=== PATIENT | male | born 1945 | race Caucasian/White ===

== ENCOUNTER 2017-04-07 13:40 | Emergency (ER) | payer OTHER, MEDICARE ==
[~2017-04-07] VITALS: Ht 175.3 cm; Wt 81.7 kg
[~2017-04-07 13:40] MED LIST: ALEVE220 M1 PO; ALTOPREV40 MG PO; ARANESP200 MCG/0. IJ; FISH OIL 1,0001 EAC1 PO; GLUCOSAMINE1000 MG PO; IRON27 MG PO; LIPITOR10 MG PO; MULTIVITAMINS1 EAC7 PO; NORCO 10-325 T1 EACH PO; NORCO 5-325 TA1 EACH PO
[2017-04-07] MEDS ORDERED: HYDROCHLOROTHIA25 MG PO (13:54)
[2017-04-07] MEDS ORDERED: AMLODIPINE BESYL5 MG PO (13:54)
[2017-04-07] MEDS ORDERED: AUGMENTIN 875-1 EACH PO (14:39)
[2017-04-07] MEDS ORDERED: NORCO 5-325 TA1 EACH PO (14:39)
[2017-05-30] MEDS ORDERED: TYLENOL325 MG PO (06:49)
[2017-05-30] MEDS ORDERED: POTASSIUM CHLO10 ME1 PO (06:50)
== END 2017-04-07 14:52 | disposition home or self-care (01) ==
LOC: ED 13:40
PROC: 0HQQXZZ Repair Finger Nail, External Approach (ICD-10-PCS; principal; 2017-04-07)
DX: S62.637A Displaced fracture of distal phalanx of left little finger, initial encounter for closed fracture (principal); S61.317A Laceration without foreign body of left little finger with damage to nail, initial encounter; E78.00 Pure hypercholesterolemia, unspecified; Z88.8 Allergy status to other drugs, medicaments and biological substances; Z79.899 Other long term (current) drug therapy; W45.8XXA Other foreign body or object entering through skin, initial encounter
CPT/HCPCS: 11760; 73140; 90471; 90715; 99283

== ENCOUNTER 2018-09-16 12:09 | Emergency (ER) | payer BC, MEDICARE ==
[~2018-09-16] VITALS: Ht 175.3 cm; Wt 81.6 kg
[~2018-09-16 12:09] MED LIST changes: +AMLODIPINE BESYL5 MG PO; +AUGMENTIN 875-1 EACH PO; +HYDROCHLOROTHIA25 MG PO; +POTASSIUM CHLO10 ME1 PO; +TYLENOL325 MG PO
--- OUTSIDE RECORDS SUMMARY | 2018-09-16 12:28 | XMS ---
PreManage Notification: TYLOR OLIVERA Security Disk Grinder Events No recent Security Events currently on file CRITERIA MET - [facility] CARE PROVIDERS THEODORE THAYER Physician Program Director Air Talent Current PHONE: Unknown Hay Greco MD Primary Care Current PHONE: Unknown Marly GRECO Primary Care Current PHONE: Unknown Xander has no Care Guidelines for this patient. EMilana. VISIT COUNT (12 MO.) 1 AUBREY Wilde TOTAL 1 NOTE: Visits indicate total known visits. ED/UCC VISIT TRACKING (12 MO.) 09/16/2018 12:09 [facility]REY [facility] [place] TYPE: Emergency COMPLAINT: - HEAD LAC INPATIENT VISIT TRACKING (12 MO.) 05/27/2018 06:22 [facility] TYPE: Medical Surgical COMPLAINT: - TOTAL SHOULDER REPL- REVERSE(LEFT) DIAGNOSES: 0. Primary osteoarthritis, left shoulder 1. Primary osteoarthritis, left shoulder 2. Complete rotator cuff tear or rupture of left shoulder, not specified as traumatic 3. Presence of right artificial shoulder joint [id number]
[2018-09-16] MEDS ORDERED: KEFLEX500 MG PO (13:52)
== END 2018-09-16 14:20 | disposition home or self-care (01) ==
LOC: ED 12:09
DX: S01.01XA Laceration without foreign body of scalp, initial encounter (principal); S80.11XA Contusion of right lower leg, initial encounter; W00.0XXA Fall on same level due to ice and snow, initial encounter; Z88.8 Allergy status to other drugs, medicaments and biological substances; Z79.899 Other long term (current) drug therapy
CPT/HCPCS: 12002; 70450; 73502; 99283-25

== ENCOUNTER 2019-11-22 14:43 | Emergency (ER) | payer BC, MEDICARE ==
[~2019-11-22] VITALS: Ht 175.3 cm; Wt 81.7 kg
--- OUTSIDE RECORDS SUMMARY | ~2019-11-22 | XMS | Encounter Summary ---
Demographics + + + | Address | [address] | | | [place] [address] | + + + | Home Phone | | + + + | Preferred Language | Unknown | + + + | Marital Status | | + + + | Taoism Affiliation | 1077 | + + + | Race | Unknown | + + + | Ethnic Group | Unknown | + + + Author + + + | Author | [facility] | | | and [place] | + + + | Organization | [facility] | | | and [place] | + + + | Address | Unknown | + + + | Phone | Unavailable | + + + Support + + +---------+ + | Name | Relationship | Address | Phone | + + +---------+ + | Ricarda Johnson | ECON | Unknown | | + + +---------+ + Care Team Providers + +------+ + | Care Primer Supervisor Name | Role | Phone | + +------+ + | Hay Greco MD | PCP | | + +------+ + Encounter Details +--------+ + + + + | Date | Type | Department | Care Team | Description | +--------+ + + + + | 09/13/ | Hospital | [facility] | Carlos Armstrong | S/P lumbar fusion | | 2018 | Encounter | MED CTR XRAY [address] | D, PA-C [address] | | | | | [place] | [address] | | | | | [place] [address] | [place], [place] | | | | | [phone] | [address] | | | | | | | | +--------+ + + + + Social History + +-------+ +--------+------+ | Tobacco Use | Types | Packs/Day | Years | Date | | | | | Used | | + +-------+ +--------+------+ | Never Smoker | | | | | + +-------+ +--------+------+ + +---+---+---+ | Smokeless Tobacco: | | | | | Never Used | | | | + +---+---+---+ + + +---------+ + | Alcohol Use | Drinks/Week | oz/Week | Comments | + + +---------+ + | Yes | 6 Shots of liquor | 6.0 | FREQUENTLY (MORE | | | | | THAN TWICE PER WEEK) | + + +---------+ + + + + | Sex Assigned at | Date Recorded | | | | + + + | Not on file | | + + + + + + + | Job Start Date | Occupation | Industry | + + + + | Not on file | Not on file | Not on file | + + + + + + + + | Travel History | Travel Start | Travel End | + + + + + + | No recent travel history available. | + + documented as of this encounter Functional Status + + + + | Functional Status | Response | Date of Assessment | + + + + | Are you deaf or do you have serious | No | 10/22/2013 | | difficulty hearing? | | | + + + + | Are you blind or do you have serious | No | 10/22/2013 | | difficulty seeing, even when wearing | | | | glasses? | | | + + + + | Do you have serious difficulty walking or | No | 10/22/2013 | | climbing stairs? (5 years old or older) | | | + + + + | Do you have difficulty dressing or bathing? | No | 10/22/2013 | | (5 years old or older) | | | + + + + | Because of a physical, mental, or emotional | No | 10/22/2013 | | condition, do you have difficulty doing | | | | errands alone such as visiting a doctor's | | | | office or shopping? [15 years old or | | | | older)] | | | + + + + + + + + | Cognitive Status | Response | Date of Assessment | + + + + | Because of a physical, mental, or emotional | No | 10/22/2013 | | condition, do you have serious difficulty | | | | concentrating, remembering, or making | | | | decisions? (5 years old or older) | | | + + + + documented as of this encounter Medications at Time of Discharge + + + +---------+ + + | Medication | Sig | Dispensed | Refills | Start | End Date | | | | | | Date | | + + + +---------+ + + | acetaminophen | Take 650 mg by mouth | | 0 | | | | (TYLENOL) 325 mg | 3 times daily. Prn | | | | | | tablet | pain | | | | | + + + +---------+ + + | | Take 1 tablet by | | 0 | 11/01/19 | | | hydroCHLOROthiazide | mouth Daily. | | | 17 | 9 | | 25 mg tablet | | | | | | + + + +---------+ + + | | Take 1-2 tablets by | 120 | 0 | 09/14/19 | | | HYDROcodone-acetamin | mouth every 4 hours | tablet | | 18 | 8 | | ophen (NORCO) | as needed for Pain. | | | | | | 7.5-325 mg per | | | | | | | tablet | | | | | | + + + +---------+ + + | morphine (MS | Take 1 tablet by | 60 | 0 | 09/14/19 | | | CONTIN) 15 mg ER | mouth 2 times daily. | tablet | | 18 | 8 | | tablet | | | | | | + + + +---------+ + + | potassium chloride | Take 20 mEq by mouth | | 0 | 10/31/19 | | | (SHORTY-JESÚS) 10 mEq | Daily. | | | 17 | 9 | | CR tablet | | | | | | + + + +---------+ + + documented as of this encounter Plan of Treatment Not on filedocumented as of this encounter Procedures + +--------+ + + + | Procedure Name | Priori | Date/Time | Associated Diagnosis | Comments | | | ty | | | | + +--------+ + + + | XR LUMBAR SPINE 2 OR | Routin | 09/13/2017 | S/P lumbar fusion | Results for this | | 3 VW | e | 9:18 AM | | procedure are in the | | | | PST | | results section. | + +--------+ + + + documented in this encounter Results XR Lumbar Spine 2 or 3 Vw (09/13/2017 9:18 AM PST) + + | Specimen | + + | | + + + + + | Narrative | Performed At | + + + | XR LUMBAR SPINE 2 OR 3 VW 09/13/2017 9:18 AM HISTORY: Postop. | [facility] | | COMPARISON: 07/22/2017 FINDINGS: Stable appearance of the lumbar | | | fusion hardware at L1-L2 and L2-L4, without evidence of interval | | | complication. Moderate to severe spondylosis is again noted at | | | T12-L1, L4-L5, and L5-S1. Vascular calcifications are seen. Alignment | | | and vertebral body heights are unchanged. Question a a few | | | calcifications projecting over bilateral renal shadows. | | | IMPRESSION - No radiographic evidence of interval new complication. | | | Moderate to severe spondylosis of the unfused levels of the | | | thoracolumbar junction and lower lumbar spine. A few | | | calcifications project over bilateral renal shadows, cannot exclude | | | small renal calculi, these are similar since prior examination. | | | Dictated and Signed by: Paulo Rodriguez MD Electronically signed: | | | 09/13/2017 10:03 AM | | + + + + + | Procedure Note | + + | Reji, Rad Results In - 09/13/2017 10:07 AM PST XR LUMBAR SPINE 2 OR 3 VW 09/13/2017 9:18 | | AMHISTORY: Postop.COMPARISON: 07/22/2017FINDINGS:Stable appearance of the lumbar fusion | | hardware at L1-L2 and L2-L4, withoutevidence of interval complication. Moderate to | | severe spondylosis is again notedat T12-L1, L4-L5, and L5-S1. Vascular calcifications | | are seen. Alignment andvertebral body heights are unchanged. Question a a few | | calcifications projectingover bilateral renal shadows. IMPRESSION -No radiographic | | evidence of interval new complication.Moderate to severe spondylosis of the unfused | | levels of the thoracolumbarjunction and lower lumbar spine.A few calcifications project | | over bilateral renal shadows, cannot exclude smallrenal calculi, these are similar since | | prior examination.Dictated and Signed by: Paulo Rodriguez MD Electronically signed: | | 09/13/2017 10:03 AM | |over bilateral renal shadows. | | | |IMPRESSION - | |No radiographic evidence of interval new complication. | | | |Moderate to severe spondylosis of the unfused levels of the thoracolumbar | |junction and lower lumbar spine. | | | |A few calcifications project over bilateral renal shadows, cannot exclude small | |renal calculi, these are similar since prior examination. | | | |Dictated and Signed by: Paulo Rodriguez MD | | Electronically signed: 09/13/2017 10:03 AM | + + + +---------+ + + | Performing | Address | City/State/Zipcode | Phone Number | | Organization | | | | + +---------+ + + | [facility] | | | | + +---------+ + + documented in this encounter Visit Diagnoses + + | Diagnosis | + + | S/P lumbar fusion Arthrodesis status | + + documented in this encounter"
--- OUTSIDE RECORDS SUMMARY | ~2019-11-22 | XMS | Encounter Summary ---
Demographics + + + | Address | [address] | | | [place] [address] | + + + | Home Phone | | + + + | Preferred Language | Unknown | + + + | Marital Status | | + + + | Muslim Affiliation | 1077 | + + + | Race | Unknown | + + + | Ethnic Group | Unknown | + + + Author + + + | Author | [facility] | | | and [place] | + + + | Organization | [facility] | | | and [...] Team Providers + +------+ + | Care Patient Care Specialist Name | Role | Phone | + +------+ + PCP | Unavailable | + +------+ + Encounter Details +--------+ + + + + | Date | Type | Department | Care Team | Description | +--------+ + + + + | 04/14/ | Hospital | [facility] | | | | 2009 - | Encounter | MED CTR CANCER | | | | | | CENTER [address] | | | | 05/14/ | | [place] | | | | 2009 | | [address] | | | | | | [phone] | | | +--------+ + + + + Social History + +-------+ +--------+------+ | Tobacco Use | Types | Packs/Day | Years | Date | | | | | Used | | + +-------+ +--------+------+ | Never Assessed | | | | | + +-------+ +--------+------+ + + + | Sex Assigned at [...] Not on filedocumented as of this encounter Visit Diagnoses Not on filedocumented in this encounter"
--- OUTSIDE RECORDS SUMMARY | ~2019-11-22 | XMS | Encounter Summary ---
Demographics + + + | Address | [address] | | | [place] [address] | + + + | Home Phone | | + + + | Preferred Language | Unknown | + + + | Marital Status | | + + + | Alevism Affiliation | 1077 | + + + | Race | Unknown | + + + | Ethnic Group | Unknown | + + + Author + + + | Author | [facility] | | | and [place] | + + + | Organization | [facility] | | | and [...] Team Providers + +------+ + | Care Production Cost Estimator Name | Role | Phone | + +------+ + | Aldo Frank DO | PCP | | + +------+ + Encounter Details +--------+ + + + + | Date | Type | Department | Care Team | Description | +--------+ + + + + | 03/25/ | Orders Only | [facility] | Pj Riggs | | | 2019 | | PHYSIATRY [address] | T, MD [address] | | | | | [address] | [place], [place] | | | | | [place], [place] | [address] | | | | | [address] | | | | | | [phone] | | | +--------+ + + + [...]
--- OUTSIDE RECORDS SUMMARY | ~2019-11-22 | XMS | Encounter Summary ---
Demographics + + + | Address | [address] | | | [place] [address] | + + + | Home Phone | | + + + | Preferred Language | Unknown | + + + | Marital Status | | + + + | Nondenominational Affiliation | 1077 | + + + | Race | Unknown | + + + | Ethnic Group | Unknown | + + + Author + + + | Author | [facility] | | | and [place] | + + + | Organization | [facility] | | | [...] Team Providers + +------+ + | Care Plasterer Rough Name | Role | Phone | + +------+ + | Hay Greco MD | PCP | | + +------+ + Encounter Details +--------+ + + + + | Date | Type | Department | Care Team | Description | +--------+ + + + + | 10/24/ | Hospital | [facility] | Emily Carter | | | 2013 | Encounter | MED CTR ACUTE | D, PT [address] | | | | | PHYSICAL THERAPY | [place] | | | | | [address] | [address] | | | | | [place] [address] | | | | | | [phone] | | | +--------+ + + + [...] 6 Shots of liquor | 6.0 | | + + +---------+ + + + [...] + +---------+ + + | | Take 2 tablets by | | 0 | | | | Boswellia-Glucosamin | mouth Daily. | | | | 7 | | e-Vit D (GLUCOSAMINE | | | | | | | COMPLEX PO) | | | | | | + + + +---------+ + + | | Take 1-2 tablets by | 90 | 1 | 10/25/19 | | | HYDROcodone-acetamin | mouth every 4 hours | tablet | | 14 | 4 | | ophen (NORCO) | as needed for Pain | | | | | | 7.5-325 mg per | for 10 days. | | | | | | tablet | | | | | | + + + +---------+ + + | lactulose 10 g/15 | Take 30 mLs by mouth | 240 mL | 1 | 10/25/19 | | | mL solution | 2 times daily for | | | 14 | 4 | | | 10 days. | | | | | + + + +---------+ + + | lovastatin | Take 40 mg by mouth | | 0 | | | | (ALTOPREV) 40 MG 24 | nightly. | | | | 7 | | hr tablet | | | | | | + + + +---------+ + + | MULTIPLE VITAMIN | Take 1 tablet by | | 0 | | | | PO | mouth Daily. | | | | 7 | + + + +---------+ + + | tizanidine | Take 1 capsule by | 90 | 3 | 10/25/19 | | | (ZANAFLEX) 4 MG | mouth 3 times daily | capsule | | 14 | 4 | | capsule | as needed for Muscle | | | | | | | spasms. | | | | | + + + +---------+ + + documented as of this encounter Plan of Treatment Not on filedocumented as of this encounter Visit Diagnoses Not on filedocumented in this encounter"
--- OUTSIDE RECORDS SUMMARY | ~2019-11-22 | XMS | Encounter Summary ---
Demographics + + + | Address | [address] | | | [place] [address] | + + + | Home Phone | | + + + | Preferred Language | Unknown | + + + | Marital Status | | + + + | Rastafarian Affiliation | PRE | + + + | Race | White | + + + | Ethnic Group | Not or | + + + Author + + + | Author | [facility] | + + + | Organization | [facility] | + + + | Address | Unknown | + + + | Phone | Unavailable | + + + Support + + + + + | Name | Relationship | Address | Phone | + + + + + | Ricarda Johnson | ECON | [address] | | | | | [place] | | | | | [address] | | + + + + + Care Team Providers + +------+ + | Care Outreach Analyst Name | Role | Phone | + +------+ + | Hay Greco MD | PCP | | + +------+ + Reason for Visit + + + | Reason | Comments | + + + | Medical Records | | | Review | | + + + Encounter Details +--------+ + + + + | Date | Type | Department | Care Team | Description | +--------+ + + + + | 06/19/ | Abstract | [facility] | Edgar Hampton, | Medical Records | | 2017 | | [facility] at [facility] [address] | [address] [facility] | Review | | | | Debbie Mock | Taran Ortiz | | | | | Mailcode: [address] | [place], [place] | | | | | [facility] and | [address] | | | | | [facility] [address] | [phone] | | | | | [place], [place] | | | | | | [address] | | | | | | [phone] | | | +--------+ + + + [...] + + +---------+ + | Yes | 14 Standard drinks | 11.7 | | | | or equivalent | | | + + +---------+ + + [...]
--- OUTSIDE RECORDS SUMMARY | ~2019-11-22 | XMS | Encounter Summary ---
Demographics + + + | Address | [address] | | | [place] [address] | + + + | Home Phone | | + + + | Preferred Language | Unknown | + + + | Marital Status | | + + + | Islam Affiliation | 1077 | + + + | Race | Unknown | + + + | Ethnic Group | Unknown | + + + Author + + + | Author | [facility] | | | and [place] | + + + | Organization | [facility] | | | and [...] Team Providers + +------+ + | Care Wet Process Technician Name | Role | Phone | + +------+ + | Aldo Frank DO | PCP | | + +------+ + Encounter Details +--------+ + + + + | Date | Type | Department | Care Team | Description | +--------+ + + + + | 05/05/ | Orders Only | [facility] | Inocente, David, | Lumbar spondylosis | | 2018 | | PHYSIATRY [address] | PA-C [address] | (Primary Dx) | | | | [address] | [address] [place] | | | | | [place], [place] | [place] [address] | | | | | [address] | [phone] | | | | | [phone] | | | +--------+ + + + [...] Not on filedocumented as of this encounter Results FL Facet Injection Lumbar Sacral (07/22/2018 12:45 PM PST) + + | Specimen | + + | | + + + + -+ | Narrative | Performed At | + + -+ | 07/22/2018 | [facility] | | Bilateral Lumbar Facet Steroid Injection Diagnosis: Lumbar Spondylosis | | | ICD-10 Code M47.816 Cosmo Johnson presents to the fluoroscopy | | | suite for fluoroscopically-guided bilateral L4-L5 and L5-S1 facet | | | injections as part of conservative management for chronic pain with | | | lumbar spondylosis.Based on the patient's history, physical | | | examination and review of the available imaging the patient has been | | | diagnosed with pain coming primarily from the lumbar facet joints. | | | The patient's pain has been moderate to severe, rated as a 6 or | | | higher usually on a 0-10 scale. The pain is impacting activities of | | | daily living including any activity that requires bending, lifting or | | | twisting. The patient has been dealing with this pain for more than 3 | | | months and has failed conservative treatment with NSAIDs, PT and a | | | home exercise program therefore therapeutic facet injections were | | | ordered today by David Brower PA-C targeting the bilateral L4-L5 and | | | L5-S1 facet joints. After informed consent was obtained, the | | | patient laid in the prone position on the fluoroscopy table. The areas | | | were identified under fluoroscopic guidance. The areas were prepped | | | and draped in sterile fashion. A 25-gauge, 1.5-inch needle was | | | inserted into each region and approximately 3 mL of buffered 1% | | | lidocaine was infused. Then, a 22-gauge spinal needle was inserted | | | into the superior portion of each facet under fluoroscopic guidance. | | | Confirmation into the joint spaces was obtained with infusion of | | | approximately 1 mL of Omnipaque contrast which showed outline of the | | | facet joints. Then, a combination of 2 mL of 1% lidocaine and 2 mL of | | | 40 mg/mL triamcinolone was infused into the joints. The patient | | | tolerated the procedure well without complications. Pre- and | | | post-procedure blood pressures were stable. The patient was given | | | verbal as well as written follow-up instructions. The patient was | | | reexamined after the procedure. He reported moderate improvement of | | | his symptoms after the procedure. The patient's symptoms were | | | improved even with bending and twisting maneuvers. The patient was | | | instructed to keep a detailed pain diary of the response to treatment | | | and will return the pain diary to our office 2 weeks after the | | | procedure. Prior to the start of the procedure, the following were | | | performed and/or verified, including correct patient identity, correct | | | site/side marked and visible, agreement on the procedure to be done, | | | correct patient positioning and an accurate procedure consent form. | | | Any safety precautions based on clinical history and/or medication use | | | have been addressed. I personally performed the procedure above. | | | Estimated blood loss: MinimalComplications: NoneFindings: As | | | expectedAnesthesia: Local 1% Lidocaine | | |the procedure. | | | | | |Prior to the start of the procedure, the following were performed and/or | | |verified, including correct patient identity, correct site/side marked and | | |visible, agreement on the procedure to be done, correct patient | | |positioning and an accurate procedure consent form. Any safety precautions | | |based on clinical history and/or medication use have been addressed. I | | |personally performed the procedure above. | | | | | | | | |Estimated blood loss: Minimal | | |Complications: None | | |Findings: As expected | | |Anesthesia: Local 1% Lidocaine | | | | | | | | + + -+ + +---------+ + + | Performing | Address | City/State/Zipcode | Phone Number | | Organization | | | | + +---------+ + + | [facility] | | | | + +---------+ + + documented in this encounter Visit Diagnoses + + | Diagnosis | + + | Lumbar spondylosis - Primary Lumbosacral spondylosis without myelopathy | + + documented in this encounter"
--- OUTSIDE RECORDS SUMMARY | ~2019-11-22 | XMS | Encounter Summary ---
Demographics + + + | Address | [address] | | | [place] [address] | + + + | Home Phone | | + + + | Preferred Language | Unknown | + + + | Marital Status | | + + + | Faith Affiliation | 1077 | + + + | Race | Unknown | + + + | Ethnic Group | Unknown | + + + Author + + + | Author | [facility] | | | and [place] | + + + | Organization | [facility] | | | and [...] Team Providers + +------+ + | Care Canvas Cutter Name | Role | Phone | + +------+ + | Hay Greco MD | PCP | | + +------+ + Encounter Details +--------+ + + + + | Date | Type | Department | Care Team | Description | +--------+ + + + + | 05/06/ | Orders Only | [facility] | Kemal Damian MD | Spinal stenosis of | | 2017 | | NEUROSURGERY [address] | lumbar region, | | | | [address] | [place], [place] [address] | unspecified whether | | | | [place], [place] | [phone] | neurogenic | | | | [id number] | | claudication present | | | | [phone] | | (Primary Dx); S/P | | | | | | lumbar fusion; DDD | | | | | | (degenerative disc | | | | | | disease), lumbar; | | | | | | Spondylolisthesis of | | | | | | lumbar region; | | | | | | Facet arthropathy, | | | | | | lumbar; Lumbar | | | | | | radicular pain | +--------+ + + + + Social [...] on filedocumented as of this encounter Results XR Chest PA and Lateral (06/04/2017 2:30 PM PST) + + | Specimen | + + | | + + + + + | Narrative | Performed At | + + + | XR CHEST PA AND LATERAL 06/04/2017 2:30 PM HISTORY: Pre-op. | [facility] | | COMPARISON: Multiple priors. Findings: Heart size is within | | | normal limits. Aorta is normal. Mediastinum is unremarkable. Central | | | pulmonary vasculature is normal. There is mild scarring in the left | | | lung base. The right lung is clear. Old right rib fractures are noted. | | | Extensive degenerative changes are visualized of the bilateral | | | shoulders. Mild right curvature of the thoracic spine is present. | | | IMPRESSION - No acute findings. Dictated and Signed by: Keven Simmons | | MD Erick Electronically signed: 06/04/2017 3:27 PM | | + + + + + | Procedure Note | + + | Reji, Rad Results In - 06/04/2017 3:30 PM PST XR CHEST PA AND LATERAL 06/04/2017 2:30 | | PMHISTORY: Pre-op.COMPARISON: Multiple priors.Findings:Heart size is within normal | | limits. Aorta is normal. Mediastinum isunremarkable. Central pulmonary vasculature is | | normal. There is mild scarring inthe left lung base. The right lung is clear. Old right | | rib fractures are noted.Extensive degenerative changes are visualized of the bilateral | | shoulders. Mildright curvature of the thoracic spine is present.IMPRESSION -No acute | | findings.Dictated and Signed by: Keven Suarez MD Electronically signed: 06/04/2017 3:27 | | PM | |unremarkable. Central pulmonary vasculature is normal. There is mild scarring in | |the left lung base. The right lung is clear. Old right rib fractures are noted. | |Extensive degenerative changes are visualized of the bilateral shoulders. Mild | |right curvature of the thoracic spine is present. | | | |IMPRESSION - | |No acute findings. | | | |Dictated and Signed by: Keven Suarez MD | | Electronically signed: 06/04/2017 3:27 PM | + + + +---------+ + + | Performing | Address | City/State/Zipcode | Phone Number | | Organization | | | | + +---------+ + + | [facility] | | | | + +---------+ + + CBC with Differential (06/04/2017 2:09 PM PST) + + + + + + | Component | Value | Ref Range | Performed | Pathologist | | | | | At | Signature | + + + + + + | WBC | 6.5 | 4.0 - 11.0 K/uL | [facility] | | | | | | [facility] | | | | | [facility] | | [facility] - | | | | | | [facility]ORY | | + + + + + + | RBC | 4.51 | 4.30 - 5.70 | [facility] | | | | | M/uL | [facility] | | | | | | [facility] | | | | | | [facility] - | | | | | | [facility]ATORY | | + + + + + + | Hemoglobin | 14.1 | 13.5 - 18.0 | [facility] | | | | | g/dL | [facility] | | | | | | [facility] | | | | | | [facility] - | | | | | | LAB[facility]ATORY | | + + + + + + | Hematocrit | 41.0 | 40.0 - 51.0 % | [facility] | | | | | | [facility] | | | | | | [facility] | | | | | | [facility] - | | | | | | [facility]ATORY | | + + + + + + | MCV | 90.8 | 83.0 - 101.0 fL | [facility] | | | | | | [facility] | | | | | | [facility] | | | | | | [facility] - | | | | | | LAB[facility]ATORY | | + + + + + + | MCH | 31.2 | 28.0 - 35.0 pg | [facility] | | | | | | [facility] | | | | | | [facility] | | | | | | [facility] - | | | | | | LAB[facility]ATORY | | + + + + + + | MCHC | 34.4 | 32.0 - 36.0 | [facility] | | | | | g/dL | [facility] | | | | | | [facility] | | | | | | [facility] - | | | | | | LAB[facility]ATORY | | + + + + + + | RDW-CV | 14.4 | <15.0 % | [facility] | | | | | | [facility] | | | | | | [facility] | | | | | | [facility] - | | | | | | LAB[facility]ATORY | | + + + + + + | Platelet | 228 | 140 - 440 K/uL | [facility] | | | Count | | | [facility] | | | [facility] | | [facility] | | | | | | [facility] - | | | | | | LAB[facility]ATORY | | + + + + + + | MPV | 7.7 | fL | [facility] | | | | | | [facility] | | | | | | [facility] | | | | | | [facility] - | | | | | | LAB[facility]ATORY | | + + + + + + | % | 75.2 | 45.0 - 82.0 % | [facility] | | | Neutrophils | | | [facility] | | | | | | [facility] | | | | | | [facility] - | | | | | | LAB[facility]ATORY | | + + + + + + | % | 14.0 (L) | 20.0 - 45.0 % | [facility] | | | Lymphocytes | | | [facility] | | | | | | [facility] | | | | | | [facility] - | | | | | | LAB[facility]ATORY | | + + + + + + | % Monocytes | 6.9 | 4.0 - 12.0 % | [facility] | | | | | | [facility] | | | | | | [facility] | | | | | | [facility] - | | | | | | LAB[facility]ATORY | | + + + + + + | % | 2.8 | 0.0 - 5.0 % | [facility] | | | Eosinophils | | | [facility] | | | | | | [facility] | | | | | | [facility] - | | | | | | LABORATORY | | + + + + + + | % Basophils | 1.1 (H) | 0.0 - 1.0 % | [facility] | | | | | | [facility] | | | | | | [facility] | | | | | | [facility] - | | | | | | LABORATORY | | + + + + + + | Absolute | 4.90 | 1.80 - 8.50 | [facility] | | | Neutrophils | | K/uL | [facility] | | | | | | [facility] | | | | | | [facility] - | | | | | | LABORATORY | | + + + + + + | Absolute | 0.90 | 0.60 - 3.20 | [facility] | | | Lymphocytes | | K/uL | [facility] | | | | | | [facility] | | | | | | [facility] - | | | | | | LABORATORY | | + + + + + + | Absolute | 0.40 | 0.00 - 1.00 | [facility] | | | Monocytes | | K/uL | [facility] | | | | | | [facility] | | | | | | [facility] - | | | | | | LABORATORY | | + + + + + + | Absolute | 0.20 | 0.00 - 0.40 | [facility] | | | Eosinophils | | K/uL | [facility] | | | | | | [facility] | | | | | | [facility] - | | | | | | LABORATORY | | + + + + + + | Absolute | 0.10 | 0.00 - 0.10 | [facility] | | | Basophils | | K/uL | [facility] | | | | | | [facility] | | | | | | [facility] - | | | | | | LABORATORY | | + + + + + + + + | Specimen | + + | Blood | + + + + + + + | Performing | Address | City/State/Zipcode | Phone Number | | Organization | | | | + + + + + | [facility] | [address] | [place] | [phone] | | [facility] | | [id number] | | | - LABORATORY | | | | + + + + + Basic Metabolic Panel (06/04/2017 2:09 PM PST) + + + + + + | Component | Value | Ref Range | Performed | Pathologist | | | | | At | Signature | + + + + + + | Na | 139 | 136 - 149 | [facility] | | | | | mmol/L | [facility] | | | | | | [facility] | | | | | | C[facility] - | | | | | | LABORATORY | | + + + + + + | K | 3.3 (L) | 3.5 - 5.1 | [facility] | | | | | mmol/L | [facility] | | | | | | [facility] | | | | | | CENTER - | | | | | | LABORATORY | | + + + + + + | Cl | 104 | 98 - 109 mmol/L | [facility] | | | | | | [facility] | | | | | | [facility] | | | | | | [facility] - | | | | | | LABORATORY | | + + + + + + | CO2 | 27 | 24 - 31 mmol/L | [facility] | | | | | | [facility] | | | | | | [facility] | | | | | | [facility] - | | | | | | LABORATORY | | + + + + + + | Anion Gap | 8 | 3 - 16 mmol/L | [facility] | | | | | | [facility] | | | | | | [facility] | | | | | | [facility] - | | | | | | LABORATORY | | + + + + + + | Glucose | 106 | 70 - 109 mg/dL | [facility] | | | | | | [facility] | | | | | | [facility] | | | | | | [facility] - | | | | | | LABORATORY | | + + + + + + | BUN | 25 (H) | 7 - 18 mg/dL | [facility] | | | | | | [facility] | | | | | | [facility] | | | | | | [facility] - | | | | | | LABORATORY | | + + + + + + | Creatinine | 1.43 (H) | 0.60 - 1.30 | [facility] | | | | | mg/dL | [facility] | | | | | | [facility] | | | | | | CENTER - | | | | | | LABORATORY | | + + + + + + | eGFR if not | 48 (L)Comment: | >=60 | [facility] | | | | GLOMERULAR FILTRATION | mL/min/1.73m2 | [facility] | | | [facility] | RATE,ESTIMATED | | MEDICAL | | | | mL/min/1.86t4Nena than | | CENTER - | | | | 60 Chronic kidney | | LABORATORY | | | | disease,if found over a | | | | | | 3-month period.Less than | | | | | | 15 Kidney failureFor | | | | | | | | | | | | Americans,multiply the | | | | | | calculated GFR by 1.21. | | | | | | | | | | + + + + + + | Calcium | 9.3 | 8.3 - 10.5 | [facility] | | | | | mg/dL | [facility] | | | | | | MEDICAL | | | | | | CENTER - | | | | | | LABORATORY | | + + + + + + | BUN/Creatin | 17.5 | | [facility] | | | ine Ratio | | | [facility] | | | | | | [facility]ICAL | | | | | | CENTER - | | | | | | LABORATORY | | + + + + + + + + | Specimen | + + | Blood | + + + + + + + | Performing | Address | City/State/Zipcode | Phone Number | | Organization | | | | + + + + + | [facility] | [address] | [place] | [phone] | | [facility] | | [address] | | | - LABORATORY | | | | + + + + + ECG 12 lead (06/04/2017 2:05 PM PST) + + + + + + | Component | Value | Ref Range | Performed | Pathologist | | | | | At | Signature | + + + + + + | VENTRICULAR | 66 | BPM | [facility] | | | RATE EKG | | | | | + + + + + + | ATRIAL RATE | 66 | BPM | [facility] | | + + + + + + | P-R | 212 | ms | [facility] | | | INTERVAL | | | | | + + + + + + | QRS | 92 | ms | [facility] | | | DURATION | | | | | + + + + + + | Q-T | 414 | ms | [facility] | | | INTERVAL | | | | | + + + + + + | Q-T | 434 | ms | [facility] | | | INTERVAL | | | | | | (CORRECTED) | | | | | + + + + + + | P WAVE AXIS | 58 | degrees | [facility] | | + + + + + + | QRS AXIS | 37 | degrees | [facility] | | + + + + + + | T AXIS | 37 | degrees | [facility] | | + + + + + + | INTERPRETAT | Sinus rhythm with 1st | | [facility] | | | ION TEXT | degree AV blockOtherwise | | | | | | normal ECGNo previous | | | | | | ECGs availableConfirmed | | | | | | by GILBERTO GUNN, KALIE | | | | | | ([id number]) on 06/05/2017 | | | | | | 7:55:58 AM | | | | + + + + + + + + | Specimen | + + | | + + + + + | Narrative | Performed At | + + + | | | + + + + +---------+ + + | Performing | Address | City/State/Zipcode | Phone Number | | Organization | | | | + +---------+ + + | [facility] | | | | + +---------+ + + documented in this encounter Visit Diagnoses + + | Diagnosis | + + | Spinal stenosis of lumbar region, unspecified whether neurogenic claudication present | | - Primary | + + | S/P lumbar fusion Arthrodesis status | + + | DDD (degenerative disc disease), lumbar Degeneration of lumbar or lumbosacral | | intervertebral disc | + + | Spondylolisthesis of lumbar region Acquired spondylolisthesis | + + | Facet arthropathy, lumbar Lumbosacral spondylosis without myelopathy | + + | Lumbar radicular pain Thoracic or lumbosacral neuritis or radiculitis, unspecified | + + documented in this encounter"
--- OUTSIDE RECORDS SUMMARY | ~2019-11-22 | XMS | Encounter Summary ---
Demographics + + + | Address | [address] | | | [place] [address] | + + + | Home Phone | | + + + | Preferred Language | Unknown | + + + | Marital Status | | + + + | Adventist Affiliation | 1077 | + + + | Race | Unknown | + + + | Ethnic Group | Unknown | + + + Author + + + | Author | [facility] | | | and [place] | + + + | Organization | [facility] | | | and [place] | + [...] Team Providers + +------+ + | Care Tankage Grinder Name | Role | Phone | + +------+ + | Hay Greco MD | PCP | | + +------+ + Encounter Details +--------+ + + + + | Date | Type | Department | Care Team | Description | +--------+ + + + + | 07/22/ | [facility] | [facility] | Kemal Damian MD | Status post lumbar | | 2018 | Encounter | MED CTR XRAY [address] | spinal fusion | | | | [address] | [place] [address] | | | | | [place] [address] | [phone] | | | | | [phone] | | | +--------+ + + + [...] tablets by | 120 | 0 | 06/21/20 | | | HYDROcodone-acetamin | mouth every 4 hours | tablet | | 17 | 8 | | ophen (NORCO) | as needed for Pain. | | | | | | 7.5-325 mg per | | | | | | | tablet | | | | | | + + + +---------+ + + | potassium chloride | Take 20 mEq by mouth | | 0 | 10/31/19 | | | (KLOR-CON) 10 mEq | Daily. | | | [...] LUMBAR SPINE 2 OR | Routin | 07/22/2017 | Status post lumbar | Results for this | | 3 VW | e | 8:43 AM | spinal fusion | procedure are in the | | | | PST | | results section. | + +--------+ + + + documented in this encounter Results XR Lumbar Spine 2 or 3 Vw (07/22/2017 8:43 AM PST) + + | Specimen | + + | | + + + + + | Narrative | Performed At | + + + | EXAM:XR LUMBAR SPINE 2 OR 3 VW CLINICAL HISTORY: post lumbar | [facility] | | fusion COMPARISON: Lumbar spine radiographs dating to February 07, | | | 2017 FINDINGS: Frontal and lateral views of the lumbar spine. | | | Posterior and interbody fusion changes are present at L2-L4. | | | Intact hardware. No change in position of the interbody graft | | | markers. No change in alignment. Right lateral and interbody | | | fusion changes at L1-L2. The hardware appears intact. Suggestion | | | of slight subsidence involving the interbody graft markers at the | | | L1-L2 level. Stable spondylosis and spondylolisthesis of T12 and L4. | | | IMPRESSION - Suggestion of mild subsidence involving the | | | interbody graft markers at L1-L2. Dictated and Signed by: Shayne Singer | | | MD Mary Lou Electronically signed: 07/22/2017 9:48 AM | | + + + + + | Procedure Note | + + | Dwayne Mendoza Results In - 07/22/2017 9:52 AM PST EXAM:XR LUMBAR SPINE 2 OR 3 VW | | | | CLINICAL HISTORY: post lumbar fusion | | | | COMPARISON: Lumbar spine radiographs dating to February 07, 2017 | | | | FINDINGS: Frontal and lateral views of the lumbar spine. Posterior and | | interbody fusion changes are present at L2-L4. Intact hardware. No change in | | position of the interbody graft markers. No change in alignment. Right lateral | | and interbody fusion changes at L1-L2. The hardware appears intact. Suggestion | | of slight subsidence involving the interbody graft markers at the L1-L2 level. | | Stable spondylosis and spondylolisthesis of T12 and L4. | | | | IMPRESSION - | | | | Suggestion of mild subsidence involving the interbody graft markers at L1-L2. | | | | Dictated and Signed by: Shayne Barreto MD | | Electronically signed: 07/22/2017 9:48 AM | + + + +---------+ + + | Performing | Address | City/State/Zipcode | Phone Number | | Organization | | | | + +---------+ + + | [facility] | | | | + +---------+ + + documented in this encounter Visit Diagnoses + + | Diagnosis | + + | Status post lumbar spinal fusion Arthrodesis status | + + documented in this encounter"
--- OUTSIDE RECORDS SUMMARY | ~2019-11-22 | XMS | Encounter Summary ---
Demographics + + + | Address | [address] | | | [place] [address] | + + + | Home Phone | | + + + | Preferred Language | Unknown | + + + | Marital Status | | + + + | Sabianist Affiliation | 1077 | + + + | Race | Unknown | + + + | Ethnic Group | Unknown | + + + Author + + + | Author | [facility] | | | and [place] | + + + | Organization | [facility] | | | [...] Team Providers + +------+ + | Care Service Counselor Name | Role | Phone | + +------+ + | Hay Greco MD | PCP | | + +------+ + Encounter Details +--------+ + + + + | Date | Type | Department | Care Team | Description | +--------+ + + + + | 06/08/ | Abstract | [facility] | Kemal Damian MD | | | 2012 | | NEUROSURGERY [address] | | | | | [address] | [place] [address] | | | | | [place] | [phone] | | | | | [address] | | | | | | [phone] | | | +--------+ + + + + Social History + +-------+ +--------+------+ | Tobacco Use | Types | Packs/Day | Years | Date | | | | | Used | | + +-------+ +--------+------+ | Never Smoker | | | | | + +-------+ +--------+------+ + + +---------+ + | Alcohol Use | Drinks/Week | oz/Week | Comments | + + +---------+ + | Yes | | | moderately | + + +---------+ + + + [...]
--- OUTSIDE RECORDS SUMMARY | ~2019-11-22 | XMS | Encounter Summary ---
Demographics + + + | Address | [address] | | | [place] [address] | + + + | Home Phone | | + + + | Preferred Language | Unknown | + + + | Marital Status | | + + + | Gnosticist Affiliation | 1077 | + + + | Race | Unknown | + + + | Ethnic Group | Unknown | + + + Author + + + | Author | [facility] | | | and [place] | + + + | Organization | [facility] | | | [...] Team Providers + +------+ + | Care Director Career Services Name | Role | Phone | + +------+ + | Aldo Frank DO | PCP | | + +------+ + Reason for Visit +---------+ + | Reason | Comments | +---------+ + | Post Op | Spinal Cord Stimulator | +---------+ + Encounter Details +--------+---------+ + + + | Date | Type | Department | Care Team | Description | +--------+---------+ + + + | 06/26/ | Office | [facility] | Brian Noble, | Status post | | 2019 | Visit | NEUROSURGERY [address] | PA-C [address] | insertion of spinal | | | | [address] | [address] | cord stimulator | | | | Juanito Solomon MD | [place] [address] | (Primary Dx) | | | | [address] | [phone] | | | | | [phone] | | | +--------+---------+ + + + Social History + +-------+ [...] + + documented as of this encounter Last Filed Vital Signs + + + + + | Vital Sign | Reading | Time Taken | Comments | + + + + + | Blood Pressure | 154/66 | 06/26/2019 9:49 AM | | | | | PST | | + + + + + | Pulse | 72 | 06/26/2019 9:49 AM | | | | | PST | | + + + + + | Temperature | 36.3 C (97.4 F) | 06/26/2019 9:49 AM | | | | | PST | | + + + + + | Respiratory Rate | 18 | 06/26/2019 9:49 AM | | | | | PST | | + + + + + | Oxygen Saturation | 98% | 06/26/2019 9:49 AM | | | | | PST | | + + + + + | Inhaled Oxygen | - | - | | | Concentration | | | | + + + + + | Weight | 85.1 kg (187 lb 9.8 | 06/26/2019 9:49 AM | | | | oz) | PST | | + + + + + | Height | 175.3 cm (5' 9") | 06/26/2019 9:49 AM | | | | | PST | | + + + + + | Body Mass Index | 27.71 | 06/26/2019 9:49 AM | | | | | PST | | + + + + + documented in this encounter Functional Status + + + [...] + + documented as of this encounter Patient Instructions Patient Instructions Brian Noble PA-C - 06/26/2019 9:15 AM PSTPlease continue to sl owly advance her activities as tolerated. If you have any further questions or concerns ple ase contact the [facility] or the physiatry clinic. POST-OP INSTRUCTIONS: Take it easy for the next 2 months. You will have some waxing and waning of symptoms. The pain will vary in intensity and vary from day to day. As time moves on the frequency and intensity of the pain will slowly improv e. Let pain be your guide. If you are doing an activity that starts causing you pain back o ff and ease back into it slowly. We don't want you taking any risks that do not need to be taken. We have removed all the raji and sutures from your back today. You can change out the ba nd aids that we placed over your incision today, but please leave the steri strips in place for about 7-10 days, they should begin to fall off on their own. If they are still on after 14 days, you can remove them. If your symptoms worsen or if you have any further questions or concerns please give our cecilia vizcarra a call to discuss this and a possible follow up appointment. Do not submerge or soak your incision(s). It is ok to shower. Remove dressing before showe r and gently pat the area dry following shower. Keep your incision clean and dry. Replace dr dan after area dries completely if instructed to do so. Continue to monitor expected eng ges daily and return for another incision check if you have any increased redness, swelling, heat, pain, drainage, fever, or if you have any concerns about how your incision is healing . Avoid topical products such as lotions, oils, or ointments unless otherwise instructed by a licensed healthcare provider. If steri strips were applied to incision, they will fall of f on their own and do not need to be replaced. If the outer edges are loosening, you may tr im them with clean scissors. If there are any steri strips still in place in another week, you may remove them. Please call the neurosurgery clinic or send a My Chart message if you have any questions or concerns. documented in this encounter Progress Notes Cammy Martinez RN - 06/26/2019 9:15 AM PSTProcedure: Spinal Cord Stimulator Placement Date of Procedure: 06/18/2019 Next office visit date: PRN Approximated: Yes. Appearance of wound/ incision: Midline intact with raji, horizontal intact with a runni ng suture. Moderate amount of bruising noted to lower back, and minimal swelling at the top of the horizontal incision. Removed 19 raji from midline incision, reinforced with steri- strips. Horizontal running suture removed and reinforced with steri-strips. Large band aid p laced over both incisions. Wound currently covered by bandages: Yes. Outer bandages & Steri-Strips intact, Outer ban dages were removed by Brian Noble PA-C, prior to nurse entering room.. Drainage (Color/amount): Scant dried blood around incision. Fever/Chills: None Advised on incision care and signs and symptoms of post op infection. Patient verbalized un derstanding. Brian Sharp PA-C - 06/26/2019 9:15 AM PST Brian Noble PA-C [address] [facility], [address] [place] [address] FAX: [phone] NEUROSURGERY FOLLOW-UP CHIEF COMPLAINT: Chief Complaint Patient presents with Post Op Spinal Cord Stimulator HISTORY OF PRESENT ILLNESS: Cosmo Johnson is a 74 y.o. male that had a spinal cord stimulator placement for back and bilateral leg symptoms on 06/18/[address] Bass. He ret urns and overall is doing fairly good. Today he states that he can tell that his legs feel better with using the spinal cord stimu lator. However, he reports still not being able to do much because of the incisional pain. He has been walking as much as directed. He is taking pain medications at this point. How ever, this is quite intermittent. Yesterday, he did not take any pain medication at all. Flakita ortega has had no issues with his surgical site. PAST MEDICAL HISTORY: Past Medical History: Diagnosis Date Acute ischemic heart disease (HCC) Bone marrow aplasia (HCC) Chronic bilateral low back pain without sciatica 09/12/2018 Colon cancer (HCC) Defecation urgency Headache syndrome benign High cholesterol HLD (hyperlipidemia) Internal derangement of knee Low back pain Lumbar spinal stenosis - above fusion L1/L2 03/07/2017 Osteoarthritis Osteoarthrosis, hand Radiculopathy, lumbar region Rectal malignant neoplasm (HCC) 07/2010 chemo, radiation, surgery Spondylosis of lumbar region without myelopathy or radiculopathy 09/12/2018 Synovitis Systemic hypertension Thoracic neuritis PAST SURGICAL HISTORY: Past Surgical History: Procedure Laterality Date CATARACT REMOVAL Left 2015 Wrinkle repair, detached retina COLONOSCOPY 04/2014 FINGER SURGERY Left 2012 4th & 5th digit; saw injury FINGER TRIGGER RELEASE Right Hand HAND SURGERY Left trauma ILEOSTOMY OR JEJUNOSTOMY 2009 rectal adenocarcinoma INGUINAL HERNIA REPAIR Bilateral LUMBAR LAMINECTOMY 10/22/2013 L2-3, L3-4 TRANSFORAMINAL LUMBAR INTERBODY FUSION; Laterality: N/A; Surgeon: Kemal Damian MD; Location: [facility] MAIN OR LUMBAR LAMINECTOMY Dr. Tavarez LUMBAR SPINE SURGERY N/A 06/19/2017 Procedure: L1-2 LAIF w/ Lateral Plating; Surgeon: Kemal Damian MD; Location: [facility] MAIN OR OTHER SURGICAL HISTORY N/A 06/18/2019 Procedure: PLACEMENT SPINAL CORD STIMULATOR; Surgeon: Geraldo Bass MD; Location: [facility] OR [place] NJX DX/THER SBST EPIDURAL/SUBRACH CERV/THORACIC N/A 03/25/2019 Procedure: SCS; Surgeon: Pj Riggs MD; Location: [facility] INTERVENTIONAL RADIOLOGY SMALL INTESTINE SURGERY 2011 Rectal adenocarcinoma; Ileostomy takedown reanastomis rectum/colon TOTAL KNEE ARTHROPLASTY Right 03/2015 TOTAL KNEE ARTHROPLASTY Left 2016 CURRENT MEDICATIONS: Current Outpatient Medications Medication Sig Dispense Refill acetaminophen (TYLENOL) 325 mg tablet Take 650 mg by mouth 3 times daily. Prn pain amLODIPine (NORVASC) 5 mg tablet 0 fish oil 1,000 mg capsule Take 1,000 mg by mouth 3 times daily. HYDROcodone-acetaminophen (NORCO) 7.5-325 mg per tablet Take 1-2 tablets by mouth every 4 hours as needed for Pain. 60 tablet 0 potassium chloride (KLOR-CON) 10 mEq CR tablet Take 10 mEq by mouth 2 times daily (with breakfast & dinner). 0 Red Yeast Rice 600 MG CAPS Take 1,200 mg by mouth Daily. No current facility-administered medications for this visit. ALLERGIES: Allergies Allergen Reactions Chlorhexidine Gluconate Rash and Other (See Comments) Redness Lovastatin Other (See Comments) Myalgias Povidone Iodine Hives and Rash "skin blackwell" Zetia [Ezetimibe] Other (See Comments) myalgia SOCIAL HISTORY: The patient reports that he has never smoked. He has never used smokeless tobacco. He repo rts current alcohol use of about 6.0 standard drinks of alcohol per week. He reports that he does not use drugs. FAMILY HISTORY: Family History Problem Relation Age of Onset Cancer Other Uncle & 2 cousins Heart disease Mother Heart failure Mother Heart disease Father Heart attack Father 63 AMI Heart disease Brother ARTERY BLOCKAGE Heart surgery Brother Atrial fibrillation Brother Hypertension Brother Heart surgery Brother Atrial fibrillation Brother No known problems Daughter No known problems Paternal Grandmother No known problems Maternal Grandmother No known problems Maternal Grandfather No known problems Paternal Grandfather ROS INTERIM PHYSICAL EXAMINATION: Blood pressure 154/66, pulse 72, temperature 36.3 C (97.4 F), resp. rate 18, height 1.7 53 m (5' 9"), weight 85.1 kg (187 lb 9.8 oz), SpO2 98 %. Body mass index is 27.71 kg/m. GENERAL: Cosmo Johnson is in no acute distress with unlabored respirations. SPINE: The patien's incision shows no evidence of erythema or discharge. It appears to be healing well. The raji and sutures were removed today. EXTREMITIES: No lower extremity edema. NEUROLOGICAL EXAMINATION: MENTAL STATUS: He is awake, alert, and oriented. He follows simple and complex commands RADIOGRAPHIC REVIEW: No new imaging requested for today's office visit. ASSESSMENT: Encounter Diagnosis Name Primary? Status post insertion of spinal cord stimulator Yes PLAN: Overall, the he is doing well. The patient can see some improvements but continues to henri bipin from recent surgery. We discussed increasing the patient s activities . The patient has not been instructed t o wear a brace, therefore no bracing restrictions are necessary They should continue regula r exercise and strengthening with the hope that they can avoid additional surgery. 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 The patient no longer needs follow-up for this issue. They can contact us should new issue s develop. Thank you for allowing me to care for this patient. I, Brian Noble PA-C, personally performed the services described in this documentati on. ELECTRONICALLY SIGNED BY: Brian Noble PA-C, 06/26/2019 10:13 AM documented in thi s encounter Plan of Treatment Not on filedocumented as of this encounter Visit Diagnoses + + | Diagnosis | + + | Status post insertion of spinal cord stimulator - Primary | + + documented in this encounter
--- OUTSIDE RECORDS SUMMARY | ~2019-11-22 | XMS | Encounter Summary ---
Demographics + + + | Address | [address] | | | [place] [address] | + + + | Home Phone | | + + + | Preferred Language | Unknown | + + + | Marital Status | | + + + | Confucianist Affiliation | 1077 | + + + | Race | Unknown | + + + | Ethnic Group | Unknown | + + + Author + + + | Author | [facility] | | | and [place] | + + + | Organization | [facility] | | | and [...] Team Providers + +------+ + | Care Opto Mechanical Engineer Name | Role | Phone | + +------+ + | Hay Greco MD | PCP | | + +------+ + Encounter Details +--------+ + + + + | Date | Type | Department | Care Team | Description | +--------+ + + + + | 06/04/ | Preadmit | [facility] | Kemal Damian MD | Preoperative | | 2017 | Visit | [facility] | [address] | clearance (Primary | | | | CLINIC [address] | [place] [address] | Dx); Spinal stenosis | | | | [place] | [phone] | of lumbar region, | | | | [address] | | unspecified whether | | | | | | neurogenic | | | | | | claudication | | | | | | present; S/P lumbar | | | | | | fusion; DDD | | | | | [...] | + +--------+ + + + | CULTURE, MRSA | Routin | 06/04/2017 | Preoperative | Results for this | | | e | 2:09 PM | clearance | procedure are in the | | | | PST | | results section. | + +--------+ + + + | CBC WITH | Routin | 06/04/2017 | Spinal stenosis of | Results for this | | DIFFERENTIAL | e | 2:09 PM | lumbar region, | procedure are in the | | | | PST | unspecified whether | results section. | | | | | neurogenic | | | | | | claudication present | | | | | | S/P lumbar fusion | | | | | | DDD (degenerative | | | | | | disc disease), | | | | | | lumbar | | | | | | Spondylolisthesis of | | | | | | lumbar region | | | | | | Facet arthropathy, | | | | | | lumbar Lumbar | | | | | | radicular pain | | + +--------+ + + + | BASIC METABOLIC | Routin | 06/04/2017 | Spinal stenosis of | Results for this | | PANEL | e | 2:09 PM | lumbar region, | procedure are in the | | | | PST | unspecified whether | results section. | | | | | neurogenic | | | | | | claudication present | | | | | | S/P lumbar fusion | | | | | | DDD (degenerative | | | | | | disc disease), | | | | | | lumbar | | | | | | Spondylolisthesis of | | | | | | lumbar region | | | | | | Facet arthropathy, | | | | | | lumbar Lumbar | | | | | | radicular pain | | + +--------+ + + + | ECG 12 LEAD | Routin | 06/04/2017 | Spinal stenosis of | Results for this | | | e | 2:05 PM | lumbar region, | procedure are in the | | | | PST | unspecified whether | results section. | | | | | neurogenic | | | | | | claudication present | | | | | | S/P lumbar fusion | | | | | | DDD (degenerative | | | | | | disc disease), | | | | | | lumbar | | | | | | Spondylolisthesis of | | | | | | lumbar region | | | | | | Facet arthropathy, | | | | | | lumbar Lumbar | | | | | | radicular pain | | + +--------+ + + + documented in this encounter Results CBC with Differential (06/04/2017 2:09 PM PST) + + + + + + | Component | Value | Ref Range | Performed | Pathologist | | | | | At | Signature | + + + + + + | WBC | 6.5 | 4.0 - 11.0 K/uL | [facility] | | | | | | [facility] | | | | | | [facility] | | | | | | [facility] - | | | | | | LABORATORY | | + + + + + + | RBC | 4.51 | 4.30 - 5.70 | [facility] | | | | | M/uL | [facility] | | | | | | [facility] | | | | | | [facility] - | | | | | | LABORATORY | | + + + + + + | Hemoglobin | 14.1 | 13.5 - 18.0 | [facility] | | | | | g/dL | [facility] | | | | [...] [facility] | | | | | | [facility] | | | | | | [facility] | | | | | | [facility] - | | | | | | LABORATORY | | + + + + + + | MCH | 31.2 | 28.0 - 35.0 pg | [facility] | | | | | | [facility] | | | | | | [facility] | | | | | | [facility] - | | | | | | LABORATORY | | + + + + + + | MCHC | 34.4 | 32.0 - 36.0 | [facility] | | | | | g/dL | [facility] | | | | | | [...] | | | Lymphocytes | | | [facility] | | [...] | Basophils | | K/uL | [facility] | | | | [...] | + + + + + | [facility] | [address] | [place] | [phone] | | [facility] | | [address] | | | - LABORATORY | | [...] | | | | mmol/L | [facility] | | | | | | [facility]ICAL | | | | | | [facility] - | | | | | | LABORATORY | | + + + + + + | K | 3.3 (L) | 3.5 - 5.1 | [facility] | | | | | mmol/L | [facility] | | | | [...] (H) | 7 - 18 mg/dL | [facility] | | | | | | [facility] | | | | | | MEDICAL | | | | | | CENTER - | | | | | | LABORATORY | | + + + + + + | Creatinine | 1.43 (H) | 0.60 - 1.30 | [facility] | | | | | mg/dL | [facility] | | | | | | MEDICAL | | | | | | CENTER - | | | | | | LABORATORY | | + + + + + + | eGFR if not | 48 (L)Comment: | >=60 | [facility] | | | | GLOMERULAR FILTRATION | mL/min/1.73m2 | [facility] | | | [place] | RATE,ESTIMATED | | MEDICAL | | | | mL/min/1.61e8Tnzb than | | CENTER - | | [...] | ine Ratio | | | [facility] | | [...] | + + + + + | [facility] | [address] | [place] | [phone] | | [facility] | | [address] | | | - LABORATORY | | | | + + + + + Culture, MRSA (06/04/2017 2:09 PM PST) + + + + + + | Component | Value | Ref Range | Performed | Pathologist | | | | | At | Signature | + + + + + + | Culture | Negative for MRSA by | | MATE | | | | chromogenic agar method | | [facility] | | | | | | MEDICAL | | | | | | CENTER - | | | | | | LABORATORY | | + + + + + + + + | Specimen | + + | Respiratory - Both | | anterior nares (body | | structure) | + + + + + + + | Performing | Address | City/State/Zipcode | Phone Number | | Organization | | | | + + + + + | [facility] | [address] | [place] | [phone] | | [facility] | | [address] | | | - LABORATORY | | [...] KALIE | | | | | | ([id number]) on 06/05/2017 | | | | | [...] + | Diagnosis | + + | Preoperative clearance - Primary Preoperative examination, unspecified | + + | Spinal stenosis of lumbar region, unspecified whether neurogenic claudication present | + + | S/P lumbar fusion [...]
--- OUTSIDE RECORDS SUMMARY | ~2019-11-22 | XMS | Encounter Summary ---
Demographics + + + | Address | [address] | | | [place] [address] | + + + | Home Phone | | + + + | Preferred Language | Unknown | + + + | Marital Status | | + + + | Religion Affiliation | 1077 | + + + [...] Team Providers + +------+ + | Care Farm Labor Contractor Name | Role | Phone | + +------+ + | Aldo Frank DO | PCP | | + +------+ + Reason for Referral Evaluate & Treat (Routine) +--------+ + + + + + | Status | Reason | Specialty | Diagnoses / | Referred By | Referred To | | | | | Procedures | Contact | Contact | +--------+ + + + + + | Closed | Specialty | Neuropsycholo | Diagnoses | Andi, | MichaelshannonGil | | | Services | gy | Spinal | Mariana Alcaraz, PhD [address] | | | Required | | stenosis of | [address] | [place] | | | | | lumbar | [address] | | | | | region | [address] | | | | | without | [address] | [place], [place] | | | | | neurogenic | [address] | [address] Phone: | | | | | claudication | TOMMY SANDERS, | [phone] | | | | | S/P lumbar | [place] [address] | Fax: | | | | | fusion | Phone: | [phone] | | | | | Chronic | [phone] | | | | | | bilateral | Fax: | | | | | | low back | [phone] | | | | | | pain without | | | | | | | sciatica | | | | | | | Lumbar | | | | | | | spondylosis | | | +--------+ + + + + + Reason for Visit + + + | Reason | Comments | + + + | Follow-up | Post injection follow-up | + + + Encounter Details +--------+---------+ + + + | Date | Type | Department | Care Team | Description | +--------+---------+ + + + | 01/07/ | Office | [facility] | Mariana Escamilla | Spinal stenosis of | | 2019 | Visit | PHYSIATRY [address] | [address] | lumbar region | | | | [address] | [address] | without neurogenic | | | | [place] | [address] [place] | claudication | | | | [address] | [address] | (Primary Dx); S/P | | | | [phone] | | lumbar fusion; | | | | | | Chronic bilateral | | | | | | low back pain | | | | | | without sciatica; | | | | | | Lumbar spondylosis | +--------+---------+ + + + Social History [...] + + + | Blood Pressure | 114/76 | 01/07/2019 8:56 AM | | | | | PDT | | + + + + + | Pulse | 72 | 01/07/2019 8:56 AM | | | | | PDT | | + + + + + | Temperature | - | - | | + + + + + | Respiratory Rate | 14 | 01/07/2019 8:56 AM | | | | | PDT | | + + + + + | Oxygen Saturation | - | - | | + + + + + | Inhaled Oxygen | - | - | | | Concentration | | | | + + + + + | Weight | 83.9 kg (185 lb) | 01/07/2019 8:56 AM | | | | | PDT | | + + + + + | Height | 175.3 cm (5' 9") | 01/07/2019 8:56 AM | | | | | PDT | | + + + + + | Body Mass Index | 27.32 | 01/07/2019 8:56 AM | | | | | PDT | | + + + + + [...] of this encounter Patient Instructions Patient Instructions Mariana Escamilla PA-C - 01/07/2019 9:00 AM PDT Today we discuss ed a referral to Dr. Hurst in [facility] for a NeuroPsych evaluation before the SCS trial. [facility] office will call you for an appointment. A Medrol Dose Kush was prescribed for pain flares. documented in this encounter Progress Notes Mariana Escamilla PA-C - 01/07/2019 9:00 AM PDTFormatting of this note might be diffe rent from the original. [address] [facility], [address] [place], [place] [id number] FAX: PHYSICAL MEDICINE AND REHABILITATION H&P CHIEF COMPLAINT: Chief Complaint Patient presents with Follow-up Post injection follow-up HISTORY OF PRESENT ILLNESS: The patient is a 73 y.o. male being seen today for follow up. The patient has a chronic history of back problems which ultimately resulted in the need for a lumbar fusion at the L2-L3 and L3-L4 levels. That surgery was performed by Dr. Damian in . He also had a L1-2 LAIF on 06/19/[address] Damian. He did well for a time but unfortuna tely his symptoms have worsened over the last year. When he was seen previously it was dete rmined that he had pain coming primarily from the lower lumbar facet joints. He had bilater al L4-L5, L5-S1 facet joint injections which were performed on 07/22/2018. The patient report s that immediately after the injection he felt some improvement but it did not reach 50% and in fact he reports that he did not get significant relief of his symptoms until a week lat er and it only lasted for a couple weeks. He returned and was seen by Dr. Riggs again on 09/11/18 where MBB at L3,4,5 bilateral was recommended and done on 09/25/18. He denies any relief from the lidocaine immediately after the MBB injections. The patient is complaining today of pain in the lower back, right greater than left with on ly intermittent pain into the left leg which occurs only after prolonged walking or sitting. He describes the back pain as an aching, dull, sharp and shooting feeling. He rates the pa in as moderate. His symptoms worsen with standing, walking, bending, twisting, kneeling. Hi s symptoms improve with rest and changing position. He reports pain above his fusion and bel ow. His leg symptoms account for less than 15% of his symptoms. The patient does not describe numbness of the legs. He does report weakness of the back and legs with prolonged standing . He does not have bowel and bladder dysfunction. He does not have saddle anesthesia. Treatments for these complaints have included use of narcotics, NSAIDS, surgery and the inj ections. He has also had PT which helped minimally. Patient's medications, allergies, past medical, surgical, social and family histories were reviewed and updated as appropriate. CURRENT MEDICATIONS: Current Outpatient Medications Medication Sig Dispense Refill acetaminophen (TYLENOL) 325 mg tablet Take 650 mg by mouth 3 times daily. Prn pain amLODIPine (NORVASC) 5 mg tablet 0 fish oil 1,000 mg capsule Take 1,000 mg by mouth 3 times daily. hydroCHLOROthiazide 25 mg tablet Take 1 tablet by mouth Daily. 0 methylPREDNISolone (MEDROL DOSEPAK) 4 mg tablet Follow package directions. 21 tablet 0 Red Yeast Rice 600 MG CAPS Take 1,200 mg by mouth Daily. No current facility-administered medications for this visit. ALLERGIES: Allergies Allergen Reactions Povidone Iodine Hives and Rash "skin blackwell" Chlorhexidine Gluconate Rash and Other (See Comments) Redness Lovastatin Other (See Comments) Myalgias Zetia [Ezetimibe] Other (See Comments) Reaction not specified in outside medical records REVIEW OF SYSTEMS: GENERALLY: No fever, chills, no night sweats, no weight gain, no weight loss, no anemia, no fatigue. EYES: + eye problems, no impaired sight, no eye glasses/contacts, no eye injury, no double vision, no transient blindness. EARS, NOSE, THROAT and MOUTH: No change in sense taste/smell, no hearing difficulty, + rin ging in ears, no drainage from ears, no ear injury, no dizziness, no voice change, no diffic ulty swallowing, + snoring, no sleep apnea/CPAP, no sinus trouble, no dental work. NEUROMUSCULAR: +numbness/pain of arms, no numbness/pain of legs, no awake with numbness/pa in, no weakness, no muscle aching, + coordination difficulty, no change in walk, no head inj ury, no neck injury, no back injury, no pain in neck, + pain in back, no stroke, no fainting spells, no loss of consciousness, no tremor/shaking, no seizures, no headaches, no migraine s, no memory loss, no speech difficulty, no confusion, no numbness of face. PSYCHIATRIC: No depression, no difficulty sleeping, no anxiety, no bipolar disorder. CARDIOVASCULAR/PULMONARY: No heart attack, no heart murmur, no fluttering heart, no shortn ess of breath, no cough, no Tuberculosis, no chest pain, no swelling ankles, no bloody cough ing, no asthma, no COPD/emphysema. GASTROINTESTINAL: No bowel disease, no nausea/vomiting, no rectal bleeding/hemorroids, no constipation, no fecal/stool incontinence, no liver/gallbladder disease, no abdominal pain. KIDNEY DISEASE: No frequent urination, no painful/difficult with urination, no urinary inco ntinence, no bladder problems, + impotence, no irregular period, no vaginal discharge. ENDOCRINE: No diabetes, no thyroid disease, no osteoporosis/osteopenia, no drainage from br easts. INTEGUMENTARY/SKIN: No lump in breasts, no skin disease or skin changes, no rash/itch. HEMATOLOGIC: No enlarged lymph nodes, no ease or unusual bleeding, + cancer. RHEUMATOLOGIC: No joint pain/arthritis, no Rheumatoid Arthritis PHYSICAL EXAMINATION: Vitals: 01/07/19 0856 BP: 114/76 Pulse: 72 Resp: 14 PainSc: 0 - No pain Body mass index is 27.32 kg/m. GENERAL: The patient is well developed and well nourished. He does not appear uncomfortabl e when seated. HEENT: HEAD/FACE: EYES: Normocephalic and atraumatic. There are no areas of recent trauma. Normal sclerae without icterus. SKIN Limited skin exam shows no significant rashes or lesions. There are scars in the lumb ar region. CHEST: The patient is in no acute respiratory distress with unlabored respirations. HEART: There is not lower extremity edema. ABDOMEN: The patient is not overweight. NEUROLOGIC: The patient is awake, alert, and oriented to time, place, person. He follows simple and complex commands. His speech is fluent. He comprehends speech well. He has no apparent deficits with short or buttermaker memory. He has appropriate fund of knowledge Cranial nerves 2-12 appear grossly intact. Sensory exam does not show diminished sensation to light touch in the lower extremities. REFLEX: RIGHT LEFT PATELLAR 1+ 1+ ACHILLES trace trace MUSCULOSKELETAL There is no tenderness in the midline of the cervical or thoracic spine. T here is no major palpable deformity of the spine. Straight leg raise and slump-sit are negative. Jonathan's maneuver and impingement testing were negative for any groin pain. There was no tenderness to palpation over the greater tr ochanters or sacral sulci. The patient localized the majority of the pain to the right L4-L 5 region, maybe as low as L5-S1. Patient also reports focal pain around the T12-L1 above hi s fusion. Strength testing showed 5/5 strength throughout the lower extremities. The patie nt was able to heel and toe walk without difficulty. There was no redness, effusion, warmth or joint line tenderness in the knees or ankles. RADIOGRAPHIC REVIEW: The patient's imaging was reviewed in detail with the patient today during the visit. Lumb ar MRI from 2017 shows solid fusion from L1-L4 with adjacent segment disease at T12-L1 where he has spinal stenosis and L4-L5. There is significant facet arthritis at L4-L5 and to a l beckie degree at L5-S1. There is some foraminal stenosis at the L4-L5 level on the left. ASSESSMENT: 1. Spinal stenosis of lumbar region without neurogenic claudication 2. S/P lumbar fusion 3. Chronic bilateral low back pain without sciatica 4. Lumbar spondylosis PLAN: 1) Today we discussed that based on his physical examination he is developing some pain in the T12-L1 area where disc bulge and spinal stenosis is evident. He does have some symptoms of relief of pain in this area with forward bending. He is hopeful to avoid surgery and wo uld like to hear about additional conservative options. 2) Spinal cord stimulators were discussed in detail today he was provided a DVD for review and accepted a referral to neuropsychologist Dr. Hurst for evaluation. He understands the s itzel cord stimulator evaluation and trial implant process can take 4 to 6 months and he wou ld like to get this process started for consideration. 3. In the future he may be a candidate for an epidural steroid injection at the T12-L1 are a. For now he is excepted a Medrol Dosepak to help reduce pain since we are booking out pro cedures at least a month. ELECTRONICALLY EDITED AND SIGNED BY: Ayaka Escamilla PA-C documented in this encounter Plan of Treatment + + +--------+ + + | Name | Type | Priori | Associated Diagnoses | Order Schedule | | | | ty | | | + + +--------+ + + | Ambulatory referral | Outpatient | Routin | Spinal stenosis of | 1 Occurrences | | to Neuropsychology | Referral | e | lumbar region | starting 01/07/2019 | | | | | without neurogenic | until 01/08/2020 | | | | | claudication S/P | | | | | | lumbar fusion | | | | | | Chronic bilateral | | | | | | low back pain | | | | | | without sciatica | | | | | | Lumbar spondylosis | | + + +--------+ + + documented as of this encounter Visit Diagnoses + + | Diagnosis | + + | Spinal stenosis of lumbar region without neurogenic claudication - Primary Spinal | | stenosis, lumbar region, without neurogenic claudication | + + | S/P lumbar fusion Arthrodesis status | + + | Chronic bilateral low back pain without sciatica | + + | Lumbar spondylosis Lumbosacral spondylosis without myelopathy | + + documented in this encounter
--- OUTSIDE RECORDS SUMMARY | ~2019-11-22 | XMS | Encounter Summary ---
Demographics + + + | Address | [address] | | | [place] [address] | + + + | Home Phone | | + + + | Preferred Language | Unknown | + + + | Marital Status | | + + + | Muslim Affiliation | PRE | + + + | Race | White | + + + | Ethnic Group | Not or | + + + Author + + + | Author | [facility] | + + + | Organization | [facility] | + + + | Address | Unknown | + + + | Phone | Unavailable | + + + Support + + + + + | Name | Relationship | Address | Phone | + + + + + | Ricarda Johnson | ECON | [address] | | | | | [place] | | | | | [address] | | + + + + + Care Team Providers + +------+ + | Care Tabular Typist Name | Role | Phone | + +------+ + | Hay Greco MD | PCP | | + +------+ + Encounter Details +--------+ + + + + | Date | Type | Department | Care Team | Description | +--------+ + + + + | 07/24/ | Telephone | [facility] | Edgar Hampton, | | | 2011 | | [place] [facility] [address] | [address] | | | | | Debbie Mock | [address] | | | | | Mailcode: Center | [place], [place] | | | | | for Health and | [address] | | | | | [facility] [address] | [phone] | | | | | [place], [place] | | | | | | [address] | | | | | | [phone] | | | +--------+ + + + [...]
--- OUTSIDE RECORDS SUMMARY | ~2019-11-22 | XMS | Encounter Summary ---
Demographics + + + | Address | [address] | | | [place] [address] | + + + | Home Phone | | + + + | Preferred Language | Unknown | + + + | Marital Status | | + + + | Gnosticist Affiliation | 1077 | + + + | Race | Unknown | + + + | Ethnic Group | Unknown | + + + Author + + + | Author | [facility] | | | and [place] | + + + | Organization | [facility] | | | and [...] Team Providers + +------+ + | Care Ssis Ssrs Developer Name | Role | Phone | + +------+ + PCP | Unavailable | + +------+ + Encounter Details +--------+ + + + + | Date | Type | Department | Care Team | Description | +--------+ + + + + | 08/22/ | Hospital | [facility] | | | | 2010 - | Encounter | [facility] | | | | | | CENTER [address] | | | | 09/07/ | | [place] | | | | 2010 | | [address] | | | | | | [phone] | | | +--------+ + + + [...]
--- OUTSIDE RECORDS SUMMARY | ~2019-11-22 | XMS | Encounter Summary ---
Demographics + + + | Address | [address] | | | [place] [address] | + + + | Home Phone | | + + + | Preferred Language | Unknown | + + + | Marital Status | | + + + | Restoration Affiliation | 1077 | + + + | Race | Unknown | + + + | Ethnic Group | Unknown | + + + Author + + + | Author | [facility] | | | and [place] | + + + | Organization | [facility] | | [...] Providers + +------+ + | Care Service Station Manager Name | Role | Phone | + +------+ + | Hay Greco MD | PCP | | + +------+ + Reason for Visit Auth/Cert +--------+--------+ + + + + | Status | Reason | Specialty | Diagnoses / | Referred By | Referred To | | | | | Procedures | Contact | Contact | +--------+--------+ + + + + | | | | Diagnoses | | | | | | | DDD | | | | | | | (degenerativ | | | | | | | e disc | | | | | | | disease), | | | | | | | lumbar | | | | | | | (M51.36), | | | | | | | 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 | | | | | | | region | | | | | | | (M43.16), | | | | | | | Facet | | | | | | | arthropathy, | | | | | | | lumbar | | | | | | | (M12.88), | | | | | | | Lumbar | | | | | | | radicular | | | | | | | pain | | | | | | | (M54.16), | | | | | | | S/P lumbar | | | | | | | fusion | | | | | | | (Z98.1), | | | | | | | Spinal | | | | | | | stenosis of | | | | | | | lumbar | | | | | | | region, | | | | | | | unspecified | | | | | | | whether | | | | | | | neurogenic | | | | | | | | | | | | | | claudication | | | | | | | present | | | | | | | (M48.061) | | | | | | | Procedures | | | | | | | OR | | | | | | | ARTHRODESIS | | | | | | | POSTERIOR/PO | | | | | | | STEROLATERAL | | | | | | | LUMBAR OR | | | | | | | LUMBAR SPINE | | | | | | | | | | | | | | FUSION,ANTER | | | | | | | APPRCH OR | | | | | | | INSJ BIOMCHN | | | | | | | DEV | | | | | | | INTERVERTEBR | | | | | | | AL DSC SPC | | | | | | | W/ARTHRD | | | | | | | POSTERIOR | | | | | | | NON-SEGMENTA | | | | | | | L | | | | | | | INSTRUMENTAT | | | | | | | ION | | | | | | | ANTERIOR | | | | | | | INSTRUMENTAT | | | | | | | ION 2-3 | | | | | | | VERTEBRAL | | | | | | | SEGMENTS | | | | | | | L1-2 LAIF w/ | | | | | | | Lateral | | | | | | | Plating | | | +--------+--------+ + + + + Encounter Details +--------+ + + + + | Date | Type | Department | Care Team | Description | +--------+ + + + + | 06/19/ | Hospital | [facility] | Kemal Damian MD | | | 2017 | Encounter | MED CTR XRAY [address] | [address] | | | | | [address] | [place] [address] | | | | | [place] [address] | [phone] | | | | | [phone] | | | +--------+ + + + [...] + + + +---------+ + + | amLODIPine | Take 1 tablet by | | 0 | 10/31/19 | | | (NORVASC) 5 mg | mouth Daily. | | | 17 | 8 | | tablet | | [...] mLs by mouth | 240 mL | 3 | 06/21/20 | | | mL solution | 2 times daily. | | | 17 | 8 | + + + +---------+ + + | Misc Natural | Take 1 tablet by | | 0 | | | | Products | mouth 3 times daily. | | | | 8 | | (GLUCOSAMINE | | | | | | | CHONDROITIN ADV) | | | | | | | TABS | | | | | | + + + +---------+ + + | morphine (MS | Take 15 mg by mouth | | 0 | | | | CONTIN) 15 mg ER | as needed for Pain. | | | | 7 | | tablet | | | | | | + + + +---------+ + + | morphine (MS | Take 1 tablet by | 60 | 0 | 06/21/20 | | | CONTIN) 30 mg ER | mouth every 12 | tablet | | 17 | 8 | | tablet | hours. | | | | | + + + +---------+ + + | potassium chloride | Take 20 mEq by mouth | | 0 | 10/31/19 | | | (KLOR-CON) 10 mEq | Daily. | | | 17 | 9 | | CR tablet | | | | | | + + + +---------+ + + | tiZANidine | Take 1 tablet by | 90 | 3 | 06/21/20 | | | (ZANAFLEX) 4 mg | mouth every 6 hours | tablet | | 17 | 8 | | tablet | as needed for Muscle | | [...] | + +--------+ + + + | SUZETTE ARMIJO STATS NO | Routin | 06/19/2017 | | Results for this | | CHARGE | e | 7:31 PM | | procedure are in the | | | | PST | | results section. | + +--------+ + + + documented in this encounter Results SUZETTE Haeys No Charge (06/19/2017 7:31 PM PST) + + | Specimen | + + | | + + + + + | Narrative | Performed At | + + + | No Radiologist | [facility] | | interpretation, please see Chart Review. | | + + + + +---------+ + + | Performing | Address | City/State/Zipcode | Phone Number | | Organization | | | | + +---------+ + + | [facility] | | | | + +---------+ + + documented in this encounter Visit Diagnoses Not on filedocumented in this encounter"
--- OUTSIDE RECORDS SUMMARY | ~2019-11-22 | XMS | Encounter Summary ---
Demographics + + + | Address | [address] | | | [place] [address] | + + + | Home Phone | | + + + | Preferred Language | Unknown | + + + | Marital Status | | + + + | Hinduism Affiliation | PRE | + + + | Race | White | + + + | Ethnic Group | Not or | + + + Author + + + | Author | [facility] | + + + | Organization | [facility] | + + + | Address | Unknown | + + + | Phone | Unavailable | + + + Support + + + + + | Name | Relationship | Address | Phone | + + + + + | Ricarda Johnson | ECON | [address] | | | | | [place] | | | | | [address] | | + + + + + Care Team Providers + +------+ + | Care Cotton Roll Packer Name | Role | Phone | + +------+ + | Hay Greco MD | PCP | | + +------+ + Reason for Referral Consultation (Routine) +--------+--------+ + + + + | Status | Reason | Specialty | Diagnoses / | Referred By | Referred To | | | | | Procedures | Contact | Contact | +--------+--------+ + + + + | Closed | | Gastroenterol | Diagnoses | Herzig, | Gas Endo | | | | ogy | 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) | [address] | Sharkey | | | | | Procedures | [address] | [address], [address] | | | | | CONSULT TO | [place], [place] | floor | | | | | GI | [address] | [facility] [place] | | | | | PROCEDURE | Phone: | [address] | | | | | UNIT: | [phone] | Phone: | | | | | COLONOSCOPY | Fax: | [phone] | | | | | | [phone] | Fax: | | | | | | | [phone] | +--------+--------+ + + + + Diagnostic Testing (Routine) +--------+--------+ + + + + | Status | Reason | Specialty | Diagnoses / | Referred By | Referred To | | | | | Procedures | Contact | Contact | +--------+--------+ + + + + | Closed | | Radiology | Diagnoses | Herzig, | Rad General | | | | | Malignant | Edgar Zuñiga MD | [address] | | | | | neoplasm of | [address] | [address] | | | | | rectum (HCC) | [address] | Mailcode: | | | | | Procedures | [address] | [facility] | | | | | X-RAY | [place], [place] | for Health | | | | | COLON BARIUM | [address] | and Healing, | | | | | [address] | Phone: | Building [address], | | | | | KUB | [phone] | 3rd Floor | | | | | | Fax: | [place], [place] | | | | | | [phone] | [address] | | | | | | | Phone: | | | | | | | [phone] | | | | | | | Fax: | | | | | | | [phone] | +--------+--------+ + + + + Reason for Visit + + + | Reason | Comments | + + + | Follow-up visit | | + + + Consultation (Routine) +--------+ + + + + + | Status | Reason | Specialty | Diagnoses / | Referred By | Referred To | | | | | Procedures | Contact | Contact | +--------+ + + + + + | Closed | Specialty | Surgery | Diagnoses | Andrey, | Gs | | | Services | | rectal | Trent Beltran MD | Colorectal | | | Required | | tumor | [place] | [facility] [address] | | | | | Procedures | SURGICAL | [address] | | | | | CONSULT TO | CLINIC [facility] | Mailcode: | | | | | COLORECTAL | [address] | [facility] | | | | | SURGERY | AVE | Health and | | | | | | [place], | Healing, | | | | | | [place] [address] | [address] | | | | | | Phone: | [place], [place] | | | | | | [phone] | [address] | | | | | | Fax: | Phone: | | | | | | [phone] | [phone] | | | | | | | Fax: | | | | | | | [phone] | +--------+ + + + + + Encounter Details +--------+---------+ + + + | Date | Type | Department | Care Team | Description | +--------+---------+ + + + | 06/21/ | Office | Dig[facility]ive Health | Edgar Hampton, | Malignant neoplasm | | 2011 | Visit | [facility] at [facility] [address] | MD [address] | of rectum (HCC) | | | | [address] | [address] | (Primary Dx) | | | | Mailcode: Center | [place], [place] | | | | | for Health and | [address] | | | | | [facility] 2 | [phone] | | | | | [place], [place] | | | | | | [address] | | | | | | [phone] | | | +--------+---------+ + + + [...] + + + | Blood Pressure | 158/74 | 06/21/2011 10:02 AM | | | | | PST | | + + + + + | Pulse | 73 | 06/21/2011 10:02 AM | | | | | PST | | + + + + + | Temperature | 36.7 C (98 F) | 06/21/2011 10:02 AM | | | | | PST | | + + + + + | Respiratory Rate | 14 | 06/21/2011 10:02 AM | | | | | PST | | + + + + + | Oxygen Saturation | - | - | | + + + + + | Inhaled Oxygen | - | - | | | Concentration | | | | + + + + + | Weight | 79.8 kg (175 lb 14.4 | 06/21/2011 10:02 AM | | | | oz) | PST | | + + + + + | Height | 175.3 cm (5' 9") | 06/21/2011 10:02 AM | | | | | PST | | + + + + + | Body Mass Index | 25.98 | 06/21/2011 10:02 AM | | | | | PST | | + + + + + documented in this encounter Progress Notes Edgar Hampton MD - 06/21/2011 10:18 AM PST06/21/2011 Colorectal Surgery Clinic Follow up visit Date of operation: 07/26/10 Procedure: LAR/TME-ileostomy Pathology : [id number] (preoop [id number]) Merritt returns for follow up. Primary surveillance by Dr Olivo. Completed adjuvant the [facility] in January. CEA levels have not been elevated. Had a lumbar MRI for back pain and a suspi cious sacral lesion identified. Here for follow up. Back pain but no GI complaints. No abd ominal pain. Bowel function is stable through the ileostomy Meds/allergies reviewed. ROS negative except HPI Exam BP 158/74 | Pulse 73 | Temp (Src) 36.7 C (98 F) (Oral) | RR 14 | Ht 175.3 cm (5' 9") | Wt 79.788 kg (175 lb 14.4 oz) | BMI 25.98 kg/(m^2) NAD Chest clear Heart reg abd soft, NT, inc clean Stoma healthy, functioning Additional Data Outside MRI and [facility] CT reviewed - no lesion on CT Sacral lesion PET avid, suggestive of fracture Imp clincally stage III, path CR, rectal cancer. Sacral lesion would be unexpected given his c linical staging and response to treatment. Sacral lesion not seen on CT, PET was positive b ut consistent with sacral fx. Radiology recommended dedicated pelvic MRI for further evalua tion. If normal, restage in 3 mos. Plan Need to evaluate MR imaging for fracture Follow up with Dr Olivo Regarding ileostomy closure, he can return for colonoscopy on a Saturday, Preop/PAT/contrast study on a , ileostomy closure on a Sat in the spring documented in this e ncounter Plan of Treatment Not on filedocumented as of this encounter Results X-RAY COLON BARIUM [address] KUB (10/30/2011 10:43 AM PDT) + + + + + + | Component | Value | Ref Range | Performed | Pathologist | | | | | At | Signature | + + + + + + | COLON | AddendumFluoroscopic | | | | | BARIUM | time is one minute 44 | | | | | [address] | seconds although with | | | | | KUB | the use ofpulsed | | | | | | fluoroscopy, the time is | | | | | | significantly | | | | | | less.Study:Gastrografin | | | | | | enema Clinical history: | | | | | | Rectal cancer. Evaluate | | | | | | colorectal anastomosis. | | | | | | Procedure: A 14-Peruvian | | | | | | Delgado catheter was | | | | | | inserted through | | | | | | thedistal limb of the | | | | | | diverting ileostomy and | | | | | | balloon | | | | | | inflated.Water-soluble | | | | | | contrast material was | | | | | | instilled and moved | | | | | | along thecourse of the | | | | | | colon using gravity. | | | | | | Fluoroscopic images | | | | | | were taken ofthe colon | | | | | | with particular | | | | | | attention to the | | | | | | colorectal anastomosis. | | | | | | Findings:Preliminary | | | | | | images demonstrate | | | | | | anastomotic sutures | | | | | | within the lowerpelvis. | | | | | | Lumbar spine hardware | | | | | | noted at the L3-4 level. | | | | | | The distalileal loops, | | | | | | descending, transverse, | | | | | | and descending colon | | | | | | have anunremarkable | | | | | | appearance. At the | | | | | | level of the colorectal | | | | | | anastomosis,there is no | | | | | | evidence of extraluminal | | | | | | contrast to suggest | | | | | | leak, oranastomotic | | | | | | stricture. Impression:1. | | | | | | No evidence of leak | | | | | | or stricture at the | | | | | | colorectal anastomosis. | | | | | | By my electronic | | | | | | signature listed below, | | | | | | I, the | | | | | | attendingradiologist, | | | | | | was present for the | | | | | | entire procedure as | | | | | | described inthis note. | | | | | | Attending Radiologists: | | | | | | Kacy Pete, | | | | | | DanielleAuthor: Kacy Ashraf | | | | | | Danielle Pete I have | | | | | | personally viewed this | | | | | | procedure/exam, reviewed | | | | | | this report,and made | | | | | | changes to it where | | | | | | appropriate. | | | | | | Addendum | | | | | | Electronically signed / | | | | | | Kacy Pete | | | | | | 10/30/201112:28 PM | | | | | | Final/Electronically | | | | | | signed / Kacy Ashraf | | | | | | Yanci 10/30/2011 | | | | | | 12:05PM Preliminary / | | | | | | Kacy Pete | | | | | | 10/30/2011 12:00 PM | | | | + + + + + + + + | Specimen | + + | | + + + +---------+ + + | Performing | Address | City/State/Zipcode | Phone Number | | Organization | | | | + +---------+ + + | [facility] | | | | | RADIOLOGY | | | | + +---------+ + + documented in this encounter Visit Diagnoses + + | Diagnosis | + + | Malignant neoplasm of rectum (HCC) - Primary Malignant neoplasm of rectum | + + documented in this encounter
--- OUTSIDE RECORDS SUMMARY | ~2019-11-22 | XMS | Encounter Summary ---
Demographics + + + | Address | [address] | | | [place] [address] | + + + | Home Phone | | + + + | Preferred Language | Unknown | + + + | Marital Status | | + + + | Quaker Affiliation | 1077 | + + + | Race | Unknown | + + + | Ethnic Group | Unknown | + + + Author + + + | Author | [facility] | | | and [place] | + + + | Organization | [facility] | | | and [place] | + + + | Address | Unknown | + + + | Phone | Unavailable | + + + Support + + +---------+ + | Name | Relationship | Address | Phone | + + +---------+ + | Ricarda Johsnon | ECON | Unknown | | + + +---------+ + Care Team Providers + +------+ + | Care Generation Manager Name | Role | Phone | + +------+ + | Hay Greco MD | PCP | | + +------+ + Reason for Visit + + + | Reason | Comments | + + + | Injections | Result | + + + Encounter Details +--------+ + + + + | Date | Type | Department | Care Team | Description | +--------+ + + + + | 08/05/ | Telephone | [facility] [place] | Kemal Damian MD | Injections (Result) | | 2013 | | NEUROSURGERY [address] | [address] | | | | | [address] | [place] [address] | | | | | [place] | [phone] | | | | | [address] | | | | | | [phone] | | | +--------+ + + + [...]
--- OUTSIDE RECORDS SUMMARY | ~2019-11-22 | XMS | Encounter Summary ---
Demographics + + + | Address | [address] | | | [place] [address] | + + + | Home Phone | | + + + | Preferred Language | Unknown | + + + | Marital Status | | + + + | Pentecostal Affiliation | PRE | + + + | Race | White | + + + | Ethnic Group | Not or | + + + Author + + + | Author | [facility] | + + + | Organization | [facility] | + + + | Address | Unknown | + + + | Phone | Unavailable | + + + Support + + + + + | Name | Relationship | Address | Phone | + + + + + | Ricarda Johnson | ECON | [address] | | | | | [place] | | | | | [address] | | + + + + + Care Team Providers + +------+ + | Care Storage Administrator Name | Role | Phone | + +------+ + | Hay Greco MD | PCP | | + +------+ + Encounter Details +--------+ + + + + | Date | Type | Department | Care Team | Description | +--------+ + + + + | 06/14/ | Abstract | Dig[facility]ive Health | Edgar Hampton, | | | 2010 | | [place] [facility] [address] | [address] | | | | | [address] | [address] | | | | | Mailcode: Center | [place], [place] | | | | | [facility] and | [address] | | | | | [facility], [facility] [address] | [phone] | | | | | [place], [place] | | | | | | [address] | | | | | | [phone] | | | +--------+ + + + [...]
--- OUTSIDE RECORDS SUMMARY | ~2019-11-22 | XMS | Encounter Summary ---
Demographics + + + | Address | [address] | | | [place] [address] | + + + | Home Phone | | + + + | Preferred Language | Unknown | + + + | Marital Status | | + + + | Adventism Affiliation | 1077 | + + + | Race | Unknown | + + + | Ethnic Group | Unknown | + + + Author + + + | Author | [facility] | | | and [place] | + + + | Organization | [facility] | | | and [...] Team Providers + +------+ + | Care Drop Hammer Pile Driver Operator Name | Role | Phone | + +------+ + | Hay Greco MD | PCP | | + +------+ + Encounter Details +--------+ + + + + | Date | Type | Department | Care Team | Description | +--------+ + + + + | 12/14/ | [facility] | [facility] | Kirk Javier | Facet arthropathy, | | 2015 | Encounter | MED CTR XRAY [address] | [address] | lumbar; DDD | | | | [place] | [address] | (degenerative disc | | | | [place] [address] | [place] [address] | disease), lumbar; | | | | [phone] | [phone] | S/P lumbar fusion | | | [...] at Time of Discharge + + + +---------+--------+ + | Medication | Sig | Dispensed | Refills | Start | End Date | | | | | | Date | | + + + +---------+--------+ + | acetaminophen | Take 650 mg by mouth | | 0 | | | | (TYLENOL) 325 mg | 3 times daily. Prn | | | | | | tablet | pain | | | | | + + + +---------+--------+ + | | Take 2 tablets by | | 0 | | | | Boswellia-Glucosamin | mouth Daily. | | | | 7 | | e-Vit D (GLUCOSAMINE | | | | | | | COMPLEX PO) | | | | | | + + + +---------+--------+ + | lovastatin | Take 40 mg by mouth | | 0 | | | | (ALTOPREV) 40 MG 24 | nightly. | | | | 7 | | hr tablet | | | | | | + + + +---------+--------+ + | MULTIPLE VITAMIN | Take 1 tablet by | | 0 | | | | PO | mouth Daily. | | | | 7 | + + + +---------+--------+ + | naproxen sodium | Take 220 mg by mouth | | 0 | | | | (ALEVE) 220 MG | Daily. | | | | 7 | | tablet | | | | | | + + + +---------+--------+ + documented as of this encounter Plan of Treatment Not on filedocumented as of this encounter Procedures + +--------+ + + + | Procedure Name | Priori | Date/Time | Associated Diagnosis | Comments | | | ty | | | | + +--------+ + + + | XR LUMBAR SPINE 2 OR | Routin | 12/14/2014 | Facet arthropathy, | Results for this | | 3 VW | e | 1:03 PM | lumbar DDD | procedure are in the | | | | PDT | (degenerative disc | results section. | | | | | disease), lumbar | | | | | | S/P lumbar fusion | | + +--------+ + + + documented in this encounter Results XR Lumbar Spine 2 or 3 Vw (12/14/2014 1:03 PM PDT) + + | Specimen | + + | | + + + + + | Narrative | Performed At | + + + | XR LUMBAR SPINE 2 OR 3 VW 12/14/2014 1:03 PM HISTORY: Postop. | [facility] | | COMPARISON: Multiple priors. FINDINGS: Mild levoscoliosis of the | [facility] | | lumbar spine is present. Again visualized is hardware for posterior | [facility] | | fusion from L2 through L4 with spacer hardware at these levels. | - IMAGING | | Additional spinous fusion hardware is present from L2 through L3. The | | | hardware are intact. There is mild retrolisthesis of L1 over L2 and | | | L4 over L5. Mild anterolisthesis is observed of L2 over L3. Bone | | | mineralization is normal. Vertebral body height are preserved with no | | | evidence for compression fractures. Moderate disc narrowing are at | | | T12-L1 and L4-5 with vacuum phenomenon. Multilevel facet sclerosis | | | and hypertrophy are seen. Visualized ribs and pelvic osseous | | | structures show no acute findings. There is mild atherosclerosis. | | | IMPRESSION - Stable posterior fusion from L2 through L4 and spinous | | | fusion from L2 through L3. Dictated and Signed by: Keven Suarez | | | MD Electronically signed: 12/14/2014 3:41 PM | | + + + + + | Procedure Note | + + | Reji, Rad Results In - 12/14/2014 3:44 PM PDT XR LUMBAR SPINE 2 OR 3 VW 12/14/2014 1:03 | | PMHISTORY: Postop.COMPARISON: Multiple priors.FINDINGS:Mild levoscoliosis of the lumbar | | spine is present. Again visualized is hardwarefor posterior fusion from L2 through L4 | | with spacer hardware at these levels.Additional spinous fusion hardware is present from | | L2 through L3. The hardwareare intact. There is mild retrolisthesis of L1 over L2 and L4 | | over L5. Mildanterolisthesis is observed of L2 over L3. Bone mineralization is | | normal.Vertebral body height are preserved with no evidence for compression | | fractures.Moderate disc narrowing are at T12-L1 and L4-5 with vacuum | | phenomenon.Multilevel facet sclerosis and hypertrophy are seen. Visualized ribs and | | pelvicosseous structures show no acute findings. There is mild | | atherosclerosis.IMPRESSION -Stable posterior fusion from L2 through L4 and spinous | | fusion from L2 throughL3.Dictated and Signed by: Keven Suarez MD Electronically signed: | | 12/14/2014 3:41 PM | |Moderate disc narrowing are at T12-L1 and L4-5 with vacuum phenomenon. | |Multilevel facet sclerosis and hypertrophy are seen. Visualized ribs and pelvic | |osseous structures show no acute findings. There is mild atherosclerosis. | | | |IMPRESSION - | |Stable posterior fusion from L2 through L4 and spinous fusion from L2 through | |L3. | | | |Dictated and Signed by: Keven Suarez MD | | Electronically signed: 12/14/2014 3:41 PM | + + + + + + + | Performing | Address | City/State/[facility] | Phone Number | | Organization | | | | + + + + + | [address] | [address] | [place], [place] | [phone] | | [facility] | | [address] | | | - IMAGING | | | | + + + + + documented in this encounter Visit Diagnoses + + | Diagnosis | + + | Facet arthropathy, lumbar Lumbosacral spondylosis without myelopathy | + + | DDD (degenerative disc disease), lumbar Degeneration of lumbar or lumbosacral | | intervertebral disc | + + | S/P lumbar fusion Arthrodesis status | + + documented in this encounter"
--- OUTSIDE RECORDS SUMMARY | ~2019-11-22 | XMS | Encounter Summary ---
Demographics + + + | Address | [address] | | | [place] [address] | + + + | Home Phone | | + + + | Preferred Language | Unknown | + + + | Marital Status | | + + + | Nondenominational Affiliation | PRE | + + + | Race | White | + + + | Ethnic Group | Not or | + + + Author + + + | Author | [facility] | + + + | Organization | [facility] | + + + | Address | Unknown | + + + | Phone | Unavailable | + + + Support + + + + + | Name | Relationship | Address | Phone | + + + + + | Ricarda Johnson | ECON | [address] | | | | | [place] | | | | | [address] | | + + + + + Care Team Providers + +------+ + | Care Shellfish Bed Worker Name | Role | Phone | + +------+ + | Hay Greco MD | PCP | | + +------+ + Reason for Visit + + + | Reason | Comments | + + + | Medication | | | management | | + + + Encounter Details +--------+ + + + + | Date | Type | Department | Care Team | Description | +--------+ + + + + | 08/20/ | Wire Loop Machine Operator | Infectious | Rona Kulkarni | | | 2011 | | [facility] at [facility] | [address] | | | | | [address] | [address] | | | | | Loop Physician's | [place], [place] | | | | | Pavilion, 3rd floor | [address] | | | | | [place], [place] | [phone] | | | | | [address] | | | | | | [phone] | | | +--------+ + + + [...]
--- OUTSIDE RECORDS SUMMARY | ~2019-11-22 | XMS | Encounter Summary ---
Demographics + + + | Address | [address] | | | [place] [address] | + + + | Home Phone | | + + + | Preferred Language | Unknown | + + + | Marital Status | | + + + | Islam Affiliation | 1077 | + + + | Race | Unknown | + + + | Ethnic Group | Unknown | + + + Author + + + | Author | [facility] | | | and [place] | + + + | Organization | [facility] | | | [...] Team Providers + +------+ + | Care Web Production Manager Name | Role | Phone | + +------+ + | Hay Greco MD | PCP | | + +------+ + Encounter Details +--------+ + + + + | Date | Type | Department | Care Team | Description | +--------+ + + + + | 04/22/ | Orders Only | [facility] [place] | Kemal Damian MD | DDD (degenerative | | 2017 | | NEUROSURGERY [address] | [address] | disc disease), | | | | [address] | [place] [address] | lumbar (Primary Dx); | | | | [place] | [phone] | Spondylolisthesis | | | | [address] | | of lumbar region; | | | | [phone] | | Facet arthropathy, | | | | | | lumbar; Lumbar | | | | | | radicular pain; S/P | | | | | | lumbar fusion; | | | | | | Spinal stenosis of | | | | | | lumbar region, | | | | | | unspecified whether | | | | | | neurogenic | | | | | | claudication present | +--------+ + + + + Social [...] + | Diagnosis | + + | DDD (degenerative disc disease), lumbar - Primary Degeneration of lumbar or | | lumbosacral intervertebral disc | + + | Spondylolisthesis of lumbar region Acquired spondylolisthesis | + + | Facet arthropathy, lumbar Lumbosacral spondylosis without myelopathy | + + | Lumbar radicular pain Thoracic or lumbosacral neuritis or radiculitis, unspecified | + + | S/P lumbar fusion Arthrodesis status | + + | Spinal stenosis of lumbar region, unspecified whether neurogenic claudication present | + + documented in this encounter"
--- OUTSIDE RECORDS SUMMARY | ~2019-11-22 | XMS | Encounter Summary ---
Demographics + + + | Address | [address] | | | [place] [address] | + + + | Home Phone | | + + + | Preferred Language | Unknown | + + + | Marital Status | | + + + | Yazidi Affiliation | 1077 | + + + | Race | Unknown | + + + | Ethnic Group | Unknown | + + + Author + + + | Author | [facility] | | | and [place] | + + + | Organization | [facility] | | | and [...] Team Providers + +------+ + | Care Equipment Detailer Name | Role | Phone | + +------+ + | Aldo Frank DO | PCP | | + +------+ + Reason for Visit + + + | Reason | Comments | + + + | Pain Management | 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) | + + + Encounter Details +--------+ + + + + | Date | Type | Department | Care Team | Description | +--------+ + + + + | 06/08/ | Documentati | [facility] [place] | Geraldo Bass | Pain Management | | 2019 | on | [address] Troy Dougherty MD [address] | (Preop appointment | | | | [address] | [address] [place] | (COMMERCIAL BAKER HELPER)) | | | | [place] | [place] [address] | | | | | [address] | [phone] | | | | | [phone] | | | +--------+ + + + [...] + + documented as of this encounter Progress Jia Jara RN - 06/08/2019 8:09 AM PSTP check r/t 06/09/19 preop appointment with Francois. The following information was obtained from https://[employer] ( [employer] ).[employer] News.gov/myAccess/saw/select .do on 06/08/19. No results obtained from [facility] 3 month query. documented in this enco unter Plan of Treatment Not on filedocumented as of this encounter Visit Diagnoses Not on filedocumented in this encounter"
--- OUTSIDE RECORDS SUMMARY | ~2019-11-22 | XMS | Encounter Summary ---
Demographics + + + | Address | [address] | | | [place] [address] | + + + | Home Phone | | + + + | Preferred Language | Unknown | + + + | Marital Status | | + + + | Hoahaoism Affiliation | 1077 | + + + | Race | Unknown | + + + | Ethnic Group | Unknown | + + + Author + + + | Author | [facility] | | | and [place] | + + + | Organization | [facility] | | | [...] Team Providers + +------+ + | Care Manufacturers Representative Name | Role | Phone | + +------+ + | Hay Greco MD | PCP | | + +------+ + Encounter Details +--------+ + + + + | Date | Type | Department | Care Team | Description | +--------+ + + + + | 10/14/ | [facility] | [facility] | Kemal Damian MD | Rectal cancer (HCC); | | 2013 | Encounter | MED CTR XRAY [address] | [address] | High cholesterol; | | | | [place] | [place] [address] | Preoperative testing | | | | [place] [address] | [phone] | | | | | [phone] | | | +--------+ + + + [...] | | 0 | | | | HYDROCODONE-ACETAMIN | mouth Daily as | | | | 4 | | OPHEN PO | needed. Prn pain | | | | | + + + +---------+ + + | IBUPROFEN | Take 2 tablets by | | 0 | | | | | mouth Daily. Prn | | | | 4 | | | pain | | | [...] + + + +---------+ + + | Naproxen Sodium | Take 2 tablets by | | 0 | | | | (ALEVE PO) | mouth Daily as | | | | 4 | | | needed. Prn pain. | | | | | + + [...] | ECG 12 LEAD | Routin | 10/16/2013 | Rectal cancer | Results for this | | | e | 8:03 AM | ([facility]) High | procedure are in the | | | | PDT | cholesterol | results section. | | | | | Preoperative testing | | + +--------+ + + + | XR CHEST PA AND | Routin | 10/14/2013 | Rectal cancer | Results for this | | LATERAL | e | 1:58 PM | (HCC) High | procedure are in the | | | | PDT | cholesterol | results section. | | | | | Preoperative testing | | + +--------+ + + + documented in this encounter Results XR Chest PA and Lateral (10/14/2013 1:58 PM PDT) + + | Specimen | + + | | + + + + + | Narrative | Performed At | + + + | XR CHEST PA AND LATERAL 10/14/2013 1:58 PM HISTORY: preoperative. | MISCELANIOUS | | COMPARISON: 04/17/2010 Findings: The heart is not enlarged. | LAB | | Aorta is normal. Mediastinum is unremarkable. Central pulmonary | | | vasculature is normal. There is mild scarring of the lung bases. | | | Bilateral lungs are clear otherwise with no evidence for pleural | | | effusion or pneumothorax. Mild dextroscoliosis is present of the | | | thoracic spine with mild spondylosis. Partially imaged are some | | | degenerative changes of the bilateral shoulders with sclerosis. | | | IMPRESSION - NO ACUTE FINDINGS. SCOLIOSIS WITH SPONDYLOSIS. | | | PARTIALLY IMAGED DEGENERATIVE CHANGES OF BILATERAL SHOULDERS WITH | | | SCLEROSIS. IF CLINICALLY INDICATED, DEDICATED X-RAYS OF THE SHOULDERS | | | CAN BE OBTAINED FOR FURTHER EVALUATION. Dictated and Signed | | | by: Keven Suarez MD Electronically signed: 10/14/2013 3:56 PM | | + + + + + | Procedure Note | + + | Reji, Rad Results In - 10/14/2013 3:59 PM PDT XR CHEST PA AND LATERAL 10/14/2013 1:58 | | PMHISTORY: preoperative.COMPARISON: 04/17/2010Findings:The heart is not enlarged. Aorta | | is normal. Mediastinum is unremarkable. Centralpulmonary vasculature is normal. There is | | mild scarring of the lung bases.Bilateral lungs are clear otherwise with no evidence | | for pleural effusion orpneumothorax. Mild dextroscoliosis is present of the thoracic | | spine with mildspondylosis. Partially imaged are some degenerative changes of the | | bilateralshoulders with sclerosis.IMPRESSION -NO ACUTE FINDINGS.SCOLIOSIS WITH | | SPONDYLOSIS.PARTIALLY IMAGED DEGENERATIVE CHANGES OF BILATERAL SHOULDERS WITH SCLEROSIS. | | IFCLINICALLY INDICATED, DEDICATED X-RAYS OF THE SHOULDERS CAN BE OBTAINED FORFURTHER | | EVALUATION. Dictated and Signed by: Keven Suarez MD Electronically signed: 10/14/2013 | | 3:56 PM | |spondylosis. Partially imaged are some degenerative changes of the bilateral | |shoulders with sclerosis. | | | |IMPRESSION - | |NO ACUTE FINDINGS. | | | |SCOLIOSIS WITH SPONDYLOSIS. | | | |PARTIALLY IMAGED DEGENERATIVE CHANGES OF BILATERAL SHOULDERS WITH SCLEROSIS. IF | |CLINICALLY INDICATED, DEDICATED X-RAYS OF THE SHOULDERS CAN BE OBTAINED FOR | |FURTHER EVALUATION. | | | | | |Dictated and Signed by: Keven Suarez MD | | Electronically signed: 10/14/2013 3:56 PM | + + + +---------+ + + | Performing | Address | City/State/Zipcode | Phone Number | | Organization | | | | + +---------+ + + | [facility] LAB | | | [phone] | + +---------+ + + | MISCELANIOUS LAB | | | [phone] | + +---------+ + + documented in this encounter Visit Diagnoses + + | Diagnosis | + + | Rectal cancer (HCC) Malignant neoplasm of rectum | + + | High cholesterol Pure hypercholesterolemia | + + | Preoperative testing Preoperative examination, unspecified | + + documented in this encounter"
--- OUTSIDE RECORDS SUMMARY | ~2019-11-22 | XMS | Encounter Summary ---
Demographics + + + | Address | [address] | | | [place] [address] | + + + | Home Phone | | + + + | Preferred Language | Unknown | + + + | Marital Status | | + + + | Confucianism Affiliation | 1077 | + + + | Race | Unknown | + + + | Ethnic Group | Unknown | + + + Author + + + | Author | [facility] | | | and [place] | + + + | Organization | [facility] | | | and [place] | + + + | Address | Unknown | + + + | Phone | Unavailable | + + + Support + + +---------+ + | Name | Relationship | Address | Phone | + + +---------+ + | Ricarda Johnosn | ECON | Unknown | | + + +---------+ + Care Team Providers + +------+ + | Care Rn Disease Management Name | Role | Phone | + +------+ + | Aldo Frank DO | PCP | | + +------+ + Reason for Visit Service/Procedure (Routine) +--------+--------+ + + + + | Status | Reason | Specialty | Diagnoses / | Referred By | Referred To | | | | | Procedures | Contact | Contact | +--------+--------+ + + + + | Closed | | Radiology | Diagnoses | | [facility] | | | | | Lumbar | [place], | [address] | | | | | spondylosis | Pj T MD | [place], | | | | | Procedures | [address] | [place] | | | | | [place] INJECT | [place] | [address] | | | | | ANES/STEROID | [place], [place] | Phone: | | | | | [place] | [address] | [phone] | | | | | LUMBAR/SACRA | Phone: | Fax: | | | | | [address] IM[address] | [phone] | [phone] | | | | | GUIDE ,1 | Fax: | | | | | | LEVEL [place] | [phone] | | | | | | INJECT | | | | | | | ANES/STEROID | | | | | | | FORAMEN | | | | | | | LUMBAR/SACRA | | | | | | | [address] IMG | | | | | | | GUIDE ,EA | | | | | | | ADD LEVEL | | | | | | | [place] INJ | | | | | | | DX/THER AGNT | | | | | | | PARAVERT | | | | | | | FACET JOINT, | | | | | | | LUMBAR/SAC, | | | | | | | 1ST LEVEL | | | | | | | [place] INJ | | | | | | | DX/THER AGNT | | | | | | | [place]ERT | | | | | | | FACET JOINT, | | | | | | | LUMBAR/SAC, | | | | | | | 2ND LEVEL | | | | | | | Bilateral L3 | | | | | | | and L4 | | | | | | | medial | | | | | | | branches and | | | | | | | Bilat L5 | | | | | | | dorsal ramus | | | | | | | block #1 | | | +--------+--------+ + + + + Encounter Details +--------+ + + + + | Date | Type | Department | Care Team | Description | +--------+ + + + + | 09/25/ | Hospital | [facility] | Pj Riggs | Lumbar spondylosis; | | 2019 | Encounter | MED CTR XRAY [address] | [address] | Chronic bilateral | | | | [address] [place] | [address] [place], [place] | low back pain | | | | [place] [address] | [id number] | without sciatica | | | | [phone] | | | | | | | Creative/Art Director [facility] | | | | | | [place] | | +--------+ + + + + [...] this encounter Last Filed Vital Signs + +---------+ + + | Vital Sign | Reading | Time Taken | Comments | + +---------+ + + | Blood Pressure | 173/87 | 09/25/2018 4:09 PM | | | | | PDT | | + +---------+ + + | Pulse | 66 | 09/25/2018 4:09 PM | | | | | PDT | | + +---------+ + + | Temperature | - | - | | + +---------+ + + | Respiratory Rate | - | - | | + +---------+ + + | Oxygen Saturation | - | - | | + +---------+ + + | Inhaled Oxygen | - | - | | | Concentration | | | | + +---------+ + + | Weight | - | - | | + +---------+ + + | Height | - | - | | + +---------+ + + | Body Mass Index | - | - | | + +---------+ + + documented in this encounter Functional [...] + +---------+ + + | amLODIPine | | | 0 | 10/03/19 | | | (NORVASC) 5 mg | | | | 18 | | | tabletIndications: | | | | | | | S/P lumbar fusion, | | | | | | | Lumbar radicular | | | | | | | pain, Back pain, | | | | | | | unspecified back | | | | | | | location, | | | | | | | unspecified back | | | | | | | pain laterality, | | | | | | | unspecified | | | | | | | chronicity | | | | | | + + + +---------+ + + | fish oil 1,000 mg | Take 1,000 mg by | | 0 | | | | capsule | mouth 3 times daily. | | | | | + + + +---------+ + + | Red Yeast Rice 600 | Take 1,200 mg by | | 0 | | | | MG CAPS | mouth Daily. | | | | | + + + +---------+ + + | ferrous sulfate | Take 325 mg by mouth | | 0 | | | | 325 mg tablet | daily (with | | | | 9 | | | breakfast). | | | | | + + + +---------+ + + | | Take 1 tablet by | | 0 | 11/01/19 | | | hydroCHLOROthiazide | mouth Daily. | | | 17 | 9 | | 25 mg tablet | | | | | | + + + +---------+ + + | hydrOXYzine | Take 25 mg by mouth | | 0 | 05/28/20 | | | pamoate (VISTARIL) | Daily. | | | 18 | 9 | | 25 mg capsule | | | | | | + + + +---------+ + + | | Take 1 tablet by | | 0 | 05/28/20 | | | oxyCODONE-acetaminop | mouth as needed. | | | 18 | 9 | | hen (PERCOCET) 5-325 | | | | | | | mg per tablet | | | | | | + + + +---------+ + + documented as of this encounter Plan of Treatment Not on filedocumented as of this encounter Procedures + +--------+ + + + | Procedure Name | Priori | Date/Time | Associated Diagnosis | Comments | | | ty | | | | + +--------+ + + + | FL FACET INJECTION | Routin | 09/25/2018 | Lumbar spondylosis | Results for this | | LUMBAR SACRAL | e | 3:39 PM | | procedure are in the | | | | PDT | | results section. | + +--------+ + + + documented in this encounter Results FL Facet Injection Lumbar Sacral (09/25/2018 3:39 PM PDT) + + | Specimen | + + | | + + + + -+ | Narrative | Performed At | + + -+ | | [facility] | | 09/25/2018Bilateral Lumbar Medial Branch Block Diagnosis: Lumbar | | | spondylosis ICD-10 M47.817 Cosmo Johnson presents to the | | | fluoroscopy suite for fluoroscopically-guided bilateral L3, L4 medial | | | branch blocks and bilateral L5 dorsal ramus blocks as part of | | | conservative management for chronic pain with lumbar spondylosis.Based | | | on the patient's history, physical examination and review of the | | | available imaging the patient has been diagnosed with pain coming | | | primarily from the lumbar facet joints. The patient's pain has been | | | moderate to severe, rated as a 6 usually on a 0-10 scale. The pain | | | is impacting activities of daily living including any activities that | | | include standing or walking. The patient has been dealing with this | | | pain for more than 3 months and has failed conservative treatment with | | | NSAIDs, PT and a home exercise program therefore diagnostic medial | | | branch blocks were ordered today targeting the bilateral L4-L5 and | | | L5-S1 facet joints. After informed consent was obtained, the | | | patient lay in a prone position on the fluoroscopy table. The areas | | | were identified under fluoroscopic guidance. The areas were prepped | | | and draped in a sterile fashion. A 25-gauge 1.5-inch needle was | | | inserted into each region and approximately 2 mL of buffered 1% | | | lidocaine was infused. Then a 22-gauge spinal needle was advanced to | | | the correct position at each site under fluoroscopic guidance. | | | Confirmation into the proper location was obtained with infusion of a | | | small amount of Omnipaque contrast at each site. Then 0.5 mL of 0.5% | | | ropivacaine was infused at each location. Pre- and postprocedure blood | | | pressures were stable. The patient was given verbal as well as | | | written followup instructions. The patient was reexamined after the | | | procedure. He reported moderate improvement of his symptoms after | | | the procedure. His symptoms were improved even with bending and | | | twisting maneuvers but the real test will be prolonged walking. The | | | patient was instructed to keep a detailed pain diary of the response | | | to treatment and will return the pain diary to our office within the | | | next few days for further evaluation and additional treatment | | | planning. Prior to the start of the procedure, [...] | expectedAnesthesia: Local 1% Lidocaine | | |visible, agreement on the procedure to be done, correct patient | | |positioning and an accurate procedure consent form. Any safety precautions | | |based on clinical history and/or medication use have been addressed. I | | |personally performed the procedure above. | | | | | |Estimated blood loss: Minimal | | |Complications: None | | |Findings: As expected | | |Anesthesia: Local 1% Lidocaine | | | | | + + -+ + +---------+ + + | Performing | Address | City/State/Zipcode | Phone Number | | Organization | | | | + +---------+ + + | [facility] | | | | + +---------+ + + documented in this encounter Visit Diagnoses + + | Diagnosis | + + | Lumbar spondylosis Lumbosacral spondylosis without myelopathy | + + | Chronic bilateral low back pain without sciatica | + + documented in this encounter Administered Medications + +--------+ +-------+------+------+ | Medication Order | MAR | Action | Dose | Rate | Site | | | Action | Date | | | | + +--------+ +-------+------+------+ | iohexol (OMNIPAQUE 300) 300 | Given | 09/26/19 | 4 mLs | | | | mg/mL injection 4 mL 4 mL, | | 19 3:46 | | | | | Other, ONCE, [facility] 09/25/18 at 1600, | | PM PDT | | | | | For 1 dose | | | | | | + +--------+ +-------+------+------+ +---+---+ | | | +---+---+ + +-------+ +-------+---+ + | lidocaine buffered 0.9% | Given | 09/26/19 | 6 mLs | | Other | | injection 6 mL 6 mL, | | 19 3:44 | | | (Comment | | Intradermal, ONCE, [facility] 09/25/18 at | | PM PDT | | | ) | | 1600, For 1 dose | | | | | | + +-------+ +-------+---+ + +---+---+ | | | +---+---+ + +-------+ +-------+---+---+ | ropivacaine (NAROPIN) 5 mg/mL | Given | 09/26/19 | 3 mLs | | | | (0.5%) injection 3 mL 3 mL, | | 19 3:51 | | | | | PERINEURAL, ONCE, [facility] 09/25/18 at | | PM PDT | | | | | 1600, For 1 dose | | | | | | + +-------+ +-------+---+---+ +---+---+ | | | +---+---+ documented in this encounter"
--- OUTSIDE RECORDS SUMMARY | ~2019-11-22 | XMS | Encounter Summary ---
Demographics + + + | Address | [address] | | | [place] [address] | + + + | Home Phone | | + + + | Preferred Language | Unknown | + + + | Marital Status | | + + + | Restorationist Affiliation | PRE | + + + | Race | White | + + + | Ethnic Group | Not or | + + + Author + + + | Author | [facility] | + + + | Organization | [facility] | + + + | Address | Unknown | + + + | Phone | Unavailable | + + + Support + + + + + | Name | Relationship | Address | Phone | + + + + + | Ricarda Johnson | ECON | [address] | | | | | [place] | | | | | [address] | | + + + + + Care Team Providers + +------+ + | Care Pharmacy Technology Instructor Name | Role | Phone | + +------+ + | Hay Greco MD | PCP | | + +------+ + Encounter Details +--------+ + + + + | Date | Type | Department | Care Team | Description | +--------+ + + + + | 08/02/ | Abstract | [facility] | [place], | | | 2011 | | [place] [facility] [address] | [address] | | | | | Debbie Mock | [address] | | | | | Mailcode: Center | [place], [place] | | | | | [facility] and | [address] | | | | | [facility], [facility] [address] | [phone] | | | | | [place], [place] | | | | | | [address] | | | | | | [phone] | | | +--------+ + + + [...]
--- OUTSIDE RECORDS SUMMARY | ~2019-11-22 | XMS | Encounter Summary ---
Demographics + + + | Address | [address] | | | [place] [address] | + + + | Home Phone | | + + + | Preferred Language | Unknown | + + + | Marital Status | | + + + | Congregation Affiliation | PRE | + + + | Race | White | + + + | Ethnic Group | Not or | + + + Author + + + | Author | [facility] | + + + | Organization | [facility] | + + + | Address | Unknown | + + + | Phone | Unavailable | + + + Support + + + + + | Name | Relationship | Address | Phone | + + + + + | Ricrada Johnson | ECON | [address] | | | | | [place] | | | | | [address] | | + + + + + Care Team Providers + +------+ + | Care Nurse Transition Name | Role | Phone | + +------+ + | Hay Greco MD | PCP | | + +------+ + Reason for Visit + + + | Reason | Comments | + + + | History and physical | | | examination | | + + + Consultation (Routine) [...] | Required | | tumor | [place] | [id number] | | | | | Procedures | SURGICAL | [address] | | | | | CONSULT TO | CLINIC [facility] | Mailcode: | | | | | COLORECTAL | [address] | [facility] | | | | | SURGERY | AVE | Health and | | | | | | [place], | Healing, | | | | | | [place] [address] | [address] | | | | | | Phone: | [place], [place] | | | | | | [phone] | [address] | | | | | | Fax: | Phone: | | | | | | [phone] | [phone] | | | | | | | Fax: | | | | | | | [phone] | +--------+ + + + + + Encounter Details +--------+---------+ + + + | Date | Type | Department | Care Team | Description | +--------+---------+ + + + | 10/29/ | Office | [facility] | Edgar Hampton, | Rectal cancer (HCC) | | 2011 | Visit | Center at [address] | [address] [facility] | | | | | Debbie Mock | [facility] | | | | | Mailcode: Center | [place], [place] | | | | | [facility] and | [address] | | | | | [facility], [facility] [address] | [phone] | | | | | [place], [place] | | | | | | [address] | | | | | | [phone] | | | +--------+---------+ + + + [...] + + + | Blood Pressure | 127/74 | 10/30/2011 11:00 AM | | | | | PDT | | + + + + + | Pulse | 70 | 10/30/2011 11:00 AM | | | | | PDT | | + + + + + | Temperature | 36.5 C (97.7 F) | 10/30/2011 11:00 AM | | | | | PDT | | + + + + + | Respiratory Rate | 14 | 10/30/2011 11:00 AM | | | | | PDT | | + + + + + | Oxygen Saturation | - | - | | + + + + + | Inhaled Oxygen | - | - | | | Concentration | | | | + + + + + | Weight | 82.2 kg (181 lb 4.8 | 10/30/2011 11:00 AM | | | | oz) | PDT | | + + + + + | Height | 175.3 cm (5' 9") | 10/30/2011 11:00 AM | | | | | PDT | | + + + + + | Body Mass Index | 26.77 | 10/30/2011 11:00 AM | | | | | PDT | | + + + + + documented in this encounter Patient Instructions Patient Instructions Faith Ziegler RN - 10/30/2011 11:33 AM PDTPATIENT SURGERY INFORMATION [facility] General Surgery Office Toll-free: , request [facility] Surgery Date: 10/31/2011 Procedure: Ileostomy closure. Surgeon Name: Dr. Berta MD DIRECTIONS FOR SURGERY DIET Most importantly, you should have nothing to eat or drink after midnight on the night prior to surgery. Your doctor will instruct you on what medications to take the morning of surge ry. You can have clear liquids for the entire day prior to the procedure, but no solid jose d. Clear liquids include anything you can see through, like water, shirley cinthya, lemon-wainwright s oft drinks, apple juice, tea, Gatorade/sports drinks, Jell-O, broth soups, popsicles, and co ffee. DO NOT EAT OR DRINK ANYTHING AFTER MIDNIGHT PRIOR TO YOUR SURGERY, EXCEPT FOR ANY REQUIRED MEDICATIONS WITH A SIP OF WATER. If you have urgent questions about your preoperative care, please contact the surgery offic e at . After hours and on weekends this number may refer you to the hospital blanching machine operator ([phone]); please ask to speak to the general surgery resident production ski repairer for Dr Hampton. MEDICATIONS You may take your regular medications with a sip of water the morning of surgery unless oth erwise directed by your physician. (Do Not take Aspirin, Ibuprofen, Aleve, or Coumadin). Unless otherwise directed, do not take any Aspirin, vitamin E or non-steroidal anti-inflamm atory (NSAIDs i.e. Advil, Aleve, Ibuprofen) or herbal supplements seven days prior to your s urgery. These drugs may interfere with normal blood clotting and may cause excessive bleedin g and bruising during or after the surgery. Please see the list below, which has a list of p roducts that contain Aspirin, Ibuprofen, or Vitamin E If you are taking Coumadin (warfarin), Plavix or any other blood thinners please let your s urgical team know as medication changes will be necessary. If you need a pain medication for general purposes, use Tylenol as directed. If you are in doubt about any medications that you are taking, please contact our office. Herbal medications are frequently used by patients undergoing surgery. Some of these agents have physiologic effects that could be deleterious in the perioperative period, including p recipitation of clotting disorders and interactions with anesthetics. Since there is no anibal dence that herbal medications improve surgical outcomes, and there are theoretic reasons marah t these agents may increase perioperative morbidity, we recommend they be stopped before osorio edilma. Ephedra (ma andersen) may increase the risk of heart attack and stroke and should be discontin ued at least 24 hours prior to surgery. Garlic may increase bleeding risk and should be discontinued at least 7 days prior to surge ry. Ginkgo may increase bleeding risk and should be discontinued at least 36 hours prior to osorio edilma. Ginseng lowers blood sugar and may increase bleeding risk and should be discontinued at grant st 7 days prior to surgery. Kava may increase the sedative effect of anesthetics and should be discontinued at least 24 hours prior to surgery. The Food and Drug Administration has issued a safety alert about an association between kava use and fatal hepatotoxicity. (See Hepatotoxicity due to herbal me dications). Aj's wort may diminish the effects of several drugs by induction of cytochrome p450 e nzymes and should be discontinued at least 5 days prior to surgery. Valerian may increase the sedative effect of anesthetics and is associated with benzodiazep ine-like withdrawal. There are no data on preoperative discontinuation. Ideally it is tapere d weeks before surgery; if not, withdrawal is treated with benzodiazepines. Echinacea is associated with allergic reactions and immune suppression. There are no data o n preoperative discontinuation. For simplicity and because the exact nature and purity of some herbal medications is unclea r, we recommend that other herbal agents be stopped at least one week before surgery. PRE-OP BATHING/SHOWERING Bath or shower the evening before and the morning of your surgery After your shower or bath do not apply lotions, powders, or deodorant SMOKING You should not smoke for four weeks prior to the procedure and two weeks after the procedur e. Smoking is not allowed on the [facility] campus. If you are a smoker, please make sure we disc uss a plan for managing nicotine withdrawal while in the hospital as well as resources for s moking cessation. Smoking adds significantly to the risks of your procedure. Smoking near the time of surger y causes a more acute narrowing of the blood vessels, which may lead to decreased blood flow to the tissue, poor healing, or actual loss of tissue. IF you have 3-4 weeks before your p lanned procedure and wish to quit, we will help you with resources and support. THE DAY OF THE PROCEDURE WHEN TO ARRIVE The OR schedules are finalized in the afternoon on the business day prior to the procedure. On the day prior to surgery you will be notified of your check-in time by our office. If you do not hear from anyone by 3:00 PM please call for [id number]. PARKING Parking for patients and visitors is available in the [facility] Parking structure located across from the emergency department. Patient parking is available on level 1 and 3. Mete red parking is available on the top level. CHECKING IN FOR SURGERY Go in the main entrance and check in at the Admitting Desk 9th floor of [facility] TRANSPORTATION You will require transportation home on the day of discharge. Pain medications and physica l activity restrictions may limit your ability to drive safely. CANCELLING YOUR PROCEDURE Please notify the general surgery office at [phone] as soon as possible should you nee d to cancel or change your surgery date. We will attempt to reschedule your procedure in a timely manner however due to a limited amount of operating room time a waiting list is not u ncommon. ILLNESS Please call our office with any signs of illness such as cold, flu, infection, fever, or sk in rash/infection anytime prior to your surgery. PRODUCTS CONTAINING ASPIRIN Azalea-Radcliffe, Anacin, Anexsia with Codeine, Andynos, Aspirin, Aspirin suppositories, Ascrip tin, Aspergum, Axotal, B-A-C, Baby Aspirin, Chikis, BC Powder, Bexophene, Buffaprin, Bufferin , Buffinol, Cama-Arthritis Strength, Congespirin, Clifton, Coricidin, Damason, Darvon, Drfredrick, Zenobia-Gesic, Digel, Dolprin #3 Tablets, Donatab, Doxaphene, Duragesic, Easprin, Ecotrin, Emag rin Forte, Emiprin, Emprazil, Equagesic, Equazine M, Excedrin, Fiogesic, Fiorgen PH, Fiorice t, Fiorinal, 4-Way Cold Tablet Gemnisyn, Indocin, Liquprin, Lortab ASA, Magnaprin, Marnal, Meprobamate, Midol, Momentum, N orgesic, Parkton, Orphengesic, Pabalate, P-A-C, Percodan, Presalin, Robaxasil, Roxiprin, Sathya eto, Salocol SK-65 Compound, Sine-Aid, Sine-Off,, Barnwell, Supac, Talwin Compound, Trigesic, Tolectin , Traiminicin, Vanquish, ZORprin, Zomax PRODUCTS CONTAINING IBUPROFEN Advil, Aleve, Haltran, Medipren, Midol, Motrin, Naproxyn, Nuprin, Rufen OTHER PRODUCTS WHICH MAY PROMOTE BLEEDING Vitamin E, Gingko Biloba, Marine Fatty Acids, Hatillo-3 Fish Oil Supplements Registration Process for all Admissions/Surgeries Please bring your insurance card(s) with you and be prepared to pay any co-payment, co-insu tata or deposit that may be required. Once you arrive at the registration desk, you will be interviewed by a Patient Access Servi ce Specialist ([email or web address]). Demographics will be verified (example: name, date of , Social Se curity Number, address, insurance). You will be asked to sign some paperwork: Terms and Conditions of Service, Notice of Privac y Practices Acknowledgement and Genetic Testing Opt Out. You will be given some paperwork: copies of any forms signed by you, Patient Rights, Respon sibilities and Safety, Understanding Advance Directives, and Smoking Cessation Brochure. documented in this encounter Progress Notes Edgar Hampton MD - 10/30/2011 12:00 PM PDT ATTENDING PHYSICIAN STATEMENT I saw Merritt Johnson with Dr. Casanova. I have repeated the pertinent portions of the history and physical exam. I agree with the findings documented by Dr. Casanova. I was present for th e PARQ. We have discussed the active issues and developed the assessment and plan as descri bed together. I am concerned based on the quality of his colon at endoscopy and on the contrast study marah t his function will be poor, especially early. He will anticipate poor early function and we will intervene as needed to improve function. PARQ A detailed PARQ discussion was held describing the proposed ileostomy reversal. Risks, inc luding but not limited to , organ failure, need for ICU care, heart attack, stroke, nee d for mechanical ventilation, DVT-PE, bleeding, infections (including abscesses, wound infec tions, urinary tract infections, pneumonia), injury to surrounding structures (e.g., adjacen t bowel), anastomotic leak, possible need for reoperation, possible need for another ileosto my was discussed. The chance of a full laparotomy at the initial operation was reviewed. T he patient was informed of the risks of blood transfusions should it be needed. half-way r isks of ventral hernia and small bowel obstruction were reviewed. All the patient s quest ions were answered. he has provided informed consent and signed the form. Faith Walton RN - 10/30/2011 11:33 AM PDTDiscussed pre-operative plan such as manager industrial calling the da y before surgery to give exact time that the pt will need to be at the hospital. She will al so be able to answer questions about parking, directions to admitting. Also discussed shower ing, brushing teeth night before and morning of surgery as well as not wearing make up, cont act lenses, lotions, powder, aftershave the day of surgery. Discussed changing into a gown, getting an IV, meeting anesthesia and having an opportunity to ask any questions. Discussed length of surgery and time in the recovery room. Discussed length of stay in the hospital u p on the floor. Discussed controlling pain (IV to oral med transition), controlling n/v, ear ly ambulation, TCDB/IS, progressive diet starting with clears, need for PAT appt, ostomy mar roberto appt, post-op appt. Pt denies further questions. I encouraged the pt to call with any q uestions, concerns, or new symptoms at [phone]. NPO after midnight, clear liquids the day before, responsible person to give him a ride wolfgang e. Mary Jane Pollack MD - 10/30/2011 11:03 AM PDT 10/30/2011 11:03 AM Colorectal Surgery Clinic Follow up visit Date of operation: 07/26/10 Procedure: LAR/TME-ileostomy Pathology : [id number] (preoop [id number]) Merritt returns for follow up. Overall doing well. Off pain meds. Eating well. No stomal issu es. Last chemo January 2011. Continues to take dicloxacillin for MSSA sacral osteo, last dose w ill be January 2012. Meds/allergies reviewed. ROS negative except HPI Exam Filed Vitals: 10/30/2011 11:00 AM Height: 1.753 m (5' 9") Weight: 82.237 kg (181 lb 4.8 oz) BP: 127/74 Pulse: 70 Temp: 36.5 C (97.7 F) TempSrc: Oral Resp: 14 PainSc: 0 - Zero BMI: 26.77 kg/(m^2) NAD Chest clear Heart reg abd soft, NT, inc clean Stoma healthy, functioning Studies Colonoscopy without stricture. Gastrograffin enema without leak. Imp Clincally stage III, path CR, rectal cancer. Has completed adjuvant chemo. Would like to pr oceed with ileostomy closure. Plan OR 10/31/11 for ileostomy reversal documented in this encounter Plan of Treatment Not on filedocumented as of this encounter Procedures + +--------+ + + + | Procedure Name | Priori | Date/Time | Associated Diagnosis | Comments | | | ty | | | | + +--------+ + + + | ORDERS OTHER | | 10/30/2011 | | Results for this | | | | 12:00 AM | | procedure are in the | | | | PDT | | results section. | + +--------+ + + + documented in this encounter Results ORDERS OTHER (10/30/2011 12:00 AM PDT) + + + | Narrative | Performed At | + + + | | | + + + + + | Transcriptions | + + | Cy Toribio - 02/26/2012 10:09 AM PDT | + + documented in this encounter Visit Diagnoses + + | Diagnosis | + + | Rectal cancer (HCC) Malignant neoplasm of rectum | + + documented in this encounter
--- OUTSIDE RECORDS SUMMARY | ~2019-11-22 | XMS | Encounter Summary ---
Demographics + + + | Address | [address] | | | [place] [address] | + + + | Home Phone | | + + + | Preferred Language | Unknown | + + + | Marital Status | | + + + | Amish Affiliation | PRE | + + + | Race | White | + + + | Ethnic Group | Not or | + + + Author + + + | Author | [facility] | + + + | Organization | [facility] | + + + | Address | Unknown | + + + | Phone | Unavailable | + + + Support + + + + + | Name | Relationship | Address | Phone | + + + + + | Ricarda Johnson | ECON | [address] | | | | | [place] | | | | | [address] | | + + + + + Care Team Providers + +------+ + | Care Dot Etcher Apprentice Name | Role | Phone | + +------+ + | Hay Greco MD | PCP | | + +------+ + Encounter Details +--------+ + + + + | Date | Type | Department | Care Team | Description | +--------+ + + + + | 04/02/ | Abstract | [facility] | Edgar Hampton, | | | 2012 | | [place] [facility] [address] | [address] | | | | | Debbie Mock | [address] | | | | | Mailcode: Center | [place], [place] | | | | | for Health and | [address] | | | | | [facility], [facility] 2 | [phone] | | | | | [place], [place] | | | | | | [address] | | | | | | [phone] | | | +--------+ + + + [...]
--- OUTSIDE RECORDS SUMMARY | ~2019-11-22 | XMS | Encounter Summary ---
Demographics + + + | Address | [address] | | | [place] [address] | + + + | Home Phone | | + + + | Preferred Language | Unknown | + + + | Marital Status | | + + + | Buddhism Affiliation | [id number] | + + + | Race | Unknown | + + + | Ethnic Group | Unknown | + + + Author + + + | Author | [facility] | | | and [place] | + + + | Organization | [facility] | | [...] Team Providers + +------+ + | Care Photocopying Equipment Repairer Name | Role | Phone | + +------+ + | Hay Greco MD | PCP | | + +------+ + Reason for Visit + + + | Reason | Comments | + + + | Referral | | + + + Encounter Details +--------+ + + + + | Date | Type | Department | Care Team | Description | +--------+ + + + + | 12/17/ | Telephone | [facility] | Kirk Javier | Referral | | 2017 | | NEUROSURGERY [address] | [address] | | | | | [address] | [address] | | | | | [place], [place] | [place] [address] | | | | | [address] | [phone] | | | | | [phone] | | | +--------+ + + + [...]
--- OUTSIDE RECORDS SUMMARY | ~2019-11-22 | XMS | Encounter Summary ---
Demographics + + + | Address | [address] | | | [place] [address] | + + + | Home Phone | | + + + | Preferred Language | Unknown | + + + | Marital Status | | + + + | Episcopal Affiliation | 1077 | + + + | Race | Unknown | + + + | Ethnic Group | Unknown | + + + Author + + + | Author | [facility] | | | and [place] | + + + | Organization | [facility] | | [...] Team Providers + +------+ + | Care Rod Puller And Coiler Name | Role | Phone | + +------+ + | Hay Greco MD | PCP | | + +------+ + Reason for Visit + + + | Reason | Comments | + + + | Follow-up | 12 week PO | + + + Encounter Details +--------+---------+ + + + | Date | Type | Department | Care Team | Description | +--------+---------+ + + + | 01/27/ | Office | [facility] | Kemal Damian MD | S/P lumbar fusion | | 2014 | Visit | NEUROSURGERY [address] | (Primary Dx) | | | | [address] | [place] [address] | | | | | [place] | [phone] | | | | | [address] | | | | | | [phone] | | | +--------+---------+ + + + [...] + + + | Blood Pressure | 135/74 | 01/27/2014 1:49 PM | | | | | PDT | | + + + + + | Pulse | 92 | 01/27/2014 1:49 PM | | | | | PDT | | + + + + + | Temperature | - | - | | + + + + + | Respiratory Rate | 14 | 01/27/2014 1:49 PM | | | | | PDT | | + + + + + | Oxygen Saturation | - | - | | + + + + + | Inhaled Oxygen | - | - | | | Concentration | | | | + + + + + | Weight | 84.8 kg (187 lb) | 01/27/2014 1:49 PM | | | | | PDT | | + + + + + | Height | 175.3 cm (5' 9") | 01/27/2014 1:49 PM | | | | | PDT | | + + + + + | Body Mass Index | 27.62 | 01/27/2014 1:49 PM | | | | | PDT [...] + documented as of this encounter Progress Notes Kemal Damian MD - 01/27/2014 2:09 PM PDTFormatting of this note might be different from t he original. Kemal Damian MD [address] [place] [address], [address] [place], [place] [address] FAX: NEUROSURGERY FOLLOW-UP CHIEF COMPLAINT: Chief Complaint Patient presents with Follow-up 12 week PO HISTORY OF PRESENT ILLNESS: The patient is a 68 y.o. male that had a lumbar fusion by me a round 3 months ago . He returns and overall is doing well. The patient complains of back f atigue. The patient is not still taking narcotics for pain management. The patient has bee n walking as directed and has tried to remain active. Overall, the patient is pleased with his improvement. PAST MEDICAL HISTORY: Past Medical History Diagnosis Date High cholesterol Rectal cancer (HCC) PAST SURGICAL HISTORY: Past Surgical History Procedure Date Back surgery Rectal cancer Right hand trigger finger Lumbar laminectomy 10/22/2013 LAMINECTOMY PLIF/TLIF INSTRUMENTATION performed by Kemal Damian MD at [facility] MAIN OR CURRENT MEDICATIONS: Current Outpatient Prescriptions Medication Sig Dispense Refill acetaminophen (TYLENOL) 325 mg tablet Take 325 mg by mouth Daily. Prn pain Etrhvodbl-Ohstjjcrsfr-Caq D (GLUCOSAMINE COMPLEX PO) Take 2 tablets by mouth Daily. lovastatin (ALTOPREV) 40 MG 24 hr tablet Take 40 mg by mouth nightly. MULTIPLE VITAMIN PO Take 1 tablet by mouth Daily. ALLERGIES: Allergies Allergen Reactions Antiseptic Skin Cleanser Other (See Comments) SKIN REDNESS, RASH Povidone Iodine Rash SOCIAL HISTORY: The patient reports that he has never smoked. He has never used smokeless tobacco. He repo rts that he drinks about 3.6 ounces of alcohol per week. He reports that he does not use ill icit drugs. FAMILY HISTORY: Family History Problem Relation Age of Onset Cancer Other Uncle & 2 cousins Heart disease Mother Heart disease Father Heart disease Brother Hypertension Brother INTERIM PHYSICAL EXAMINATION: Blood pressure 135/74, pulse 92, resp. rate 14, height 1.753 m (5' 9"), weight 84.823 kg (1 87 lb). Body mass index is 27.60 kg/(m^2). GENERAL: Cosmo Johnson is in no acute distress with unlabored respirations. SPINE: The patient s incisions are healing well without drainage, significant erythema, o r discharge EXTREMITIES: No lower extremity edema. NEUROLOGICAL EXAMINATION: MENTAL STATUS: The patient is awake, alert, and oriented. He follows simple and complex commands MOTOR EXAM: Motor strength is 5/5. This is improved from the preoperative exam. RADIOGRAPHIC REVIEW: The patient s postoperative x-rays show stable instrumentation and alignment and were rev iewed with the patient today. There have been no interval changes since the immediate posto perative films. Complete fusion has yet occurred, but this is normal and would not be expec kristopher at this time. ASSESSMENT: Encounter Diagnosis Name Primary? S/P lumbar fusion Yes Past Medical History Diagnosis Date High cholesterol Rectal cancer (HCC) PLAN: Overall, the patient is doing very well. I was pleased to see at least some further improv ement and expect more improvement with time. This was discussed with the patient today. I have increased the patient s activities further, and I would like the patient to continue to advance with activities as tolerated and as directed. I spent 15 minutes in visit with Cosmo Merritt Johnson today with the majority of time spent counselling the patient on his recovery and coordinating his future care. The patient will follow-up with me in around 3-4 months for re-evaluation. ELECTRONICALLY SIGNED BY: Kemal Damian MD, 01/27/2014 14:10 documented in this encounter Plan of Treatment Not on filedocumented as of this encounter Results XR Lumbar Spine 2 or 3 Vw (07/30/2014 11:51 AM [facility]) + + | Specimen | + + | | + + + + + | Narrative | Performed At | + + + | XR LUMBAR SPINE 2 OR 3 VW. 07/30/2014 11:51 AM HISTORY: Postop | [facility] | | . COMPARISON: 01/28/2014 FINDINGS: Posterior spinal fusion | LAB | | from the levels of L2-L4 again seen, with spacers at the intervening | | | levels, in stable position, without evidence of hardware complication | | | or subsidence. Fixation plate is seen spanning the spinous | | | processes of L2 and L3. Stable levoconvex curvature of the lumbar | | | spine. There is retrolisthesis of T12 on L1 and L1 on L2, not | | | substantially changed as compared with prior study. Retrolisthesis | | | of L4 on L5 is also stable. Diffuse degenerative disc disease at | | | the nonfused levels, with severe loss of disc height and vacuum disc | | | phenomenon at T12-L1 and L4-5, with endplate sclerotic change and | | | osteophyte formation. Facet degenerative hypertrophy again seen. | | | IMPRESSION - Stable L2-4 fusion. Dictated and Signed by: Johan | | | MD Kvng Electronically signed: 07/30/2014 6:21 PM | | + + + + + | Procedure Note | + + | Dwayne Mendoza Results In - 07/30/2014 6:24 PM PST XR LUMBAR SPINE 2 OR 3 VW. 07/30/2014 | | 11:51 AMHISTORY: Postop . COMPARISON: 01/28/2014FINDINGS:Posterior spinal fusion from | | the levels of L2-L4 again seen, with spacers at theintervening levels, in stable | | position, without evidence of hardwarecomplication or subsidence. Fixation plate is | | seen spanning the spinousprocesses of L2 and L3. Stable levoconvex curvature of the | | lumbar spine. Thereis retrolisthesis of T12 on L1 and L1 on L2, not substantially | | changed ascompared with prior study. Retrolisthesis of L4 on L5 is also stable. | | Diffusedegenerative disc disease at the nonfused levels, with severe loss of discheight | | and vacuum disc phenomenon at T12-L1 and L4-5, with endplate scleroticchange and | | osteophyte formation. Facet degenerative hypertrophy again seen.IMPRESSION -Stable L2-4 | | fusion.Dictated and Signed by: Johan Calderon MD Electronically signed: 07/30/2014 | | 6:21 PM | |compared with prior study. Retrolisthesis of L4 on L5 is also stable. Diffuse | |degenerative disc disease at the nonfused levels, with severe loss of disc | |height and vacuum disc phenomenon at T12-L1 and L4-5, with endplate sclerotic | |change and osteophyte formation. Facet degenerative hypertrophy again seen. | | | | | |IMPRESSION - | |Stable L2-4 fusion. | | | |Dictated and Signed by: Johan Calderon MD | | Electronically signed: 07/30/2014 6:21 PM | + + + +---------+ + + | Performing | Address | City/State/Zipcode | Phone Number | | Organization | | | | + +---------+ + + | [facility] | | | [phone] | + +---------+ + + | [facility] | | | [phone] | + +---------+ + + documented in this encounter Visit Diagnoses + + | Diagnosis | + + | S/P lumbar fusion - Primary Arthrodesis status | + + documented in this encounter
--- OUTSIDE RECORDS SUMMARY | ~2019-11-22 | XMS | Encounter Summary ---
Demographics + + + | Address | [address] | | | [place] [address] | + + + | Home Phone | | + + + | Preferred Language | Unknown | + + + | Marital Status | | + + + | Christianity Affiliation | 1077 | + + + | Race | Unknown | + + + | Ethnic Group | Unknown | + + + Author + + + | Author | [facility] | | | and [place] | + + + | Organization | [facility] | | [...] Team Providers + +------+ + | Care Music Theory Teacher Name | Role | Phone | + +------+ + | Aldo Frank DO | PCP | | + +------+ + Encounter Details +--------+ + + + + | Date | Type | Department | Care Team | Description | +--------+ + + + + | 03/25/ | Hospital | [facility] | Kemal Damian MD | Status post lumbar | | 2018 | Encounter | MED CTR XRAY [address] | spinal fusion | | | | [address] | [place] [address] | | | | | [place] [address] | [phone] | | | | | [phone] | | | +--------+ + + + [...] | amLODIPine | | | 0 | 03//20 | | | (NORVASC) 5 mg | [...] | | Take 1-2 tablets by | 60 | 0 | 12/18/19 | | | HYDROcodone-acetamin | mouth every 4 hours | tablet | | 18 | 8 | | ophen (NORCO) | as needed for Pain | | | | | | 7.5-325 mg per | (takes 5 tabs a | | | | | | tablet | week). | | | | | + + [...] LUMBAR SPINE 2 OR | Routin | 03/25/2018 | Status post lumbar | Results for this | | 3 VW | e | 2:48 PM | spinal fusion | procedure are in the | | | | PDT | | results section. | + +--------+ + + + documented in this encounter Results XR Lumbar Spine 2 or 3 Vw (03/25/2018 2:48 PM PDT) + + | Specimen | + + | | + + + + + | Narrative | Performed At | + + + | XR LUMBAR SPINE 2 OR 3 VW 03/25/2018 2:48 PM HISTORY: post lumbar | [facility] | | fusion. COMPARISON: Multiple priors. FINDINGS: Mild | | | levoscoliosis of the lumbar spine is observed. Again visualized is | | | hardware for posterior fusion from L2 through L4 with spacer hardware | | | at these levels. Additional right lateral fusion hardware is present | | | from L1 through L2. The hardware are intact. There is mild | | | retrolisthesis of L1 over L2 and L4 over L5. Mild anterolisthesis is | | | observed of L2 over L3. Bone mineralization is normal. Vertebral body | | | height are preserved with no evidence for compression fractures. | | | Moderate disc narrowing are at T12-L1 and L4-5 with vacuum phenomenon. | | | Multilevel facet sclerosis and hypertrophy are seen. Visualized ribs | | | and pelvic osseous structures show no acute findings. There is mild | | | atherosclerosis. IMPRESSION - Stable posterior fusion from L2 | | | through L4 and right lateral fusion from L1 through L2. Dictated | | | and Signed by: Keven Suarez MD Electronically signed: 03/25/2018 | | | 4:00 PM | | + + + + + | Procedure Note | + + | Reji, Rad Results In - 03/25/2018 4:03 PM PDT XR LUMBAR SPINE 2 OR 3 VW 03/25/2018 | | 2:48 PMHISTORY: post lumbar fusion.COMPARISON: Multiple priors.FINDINGS:Mild | | levoscoliosis of the lumbar spine is observed. Again visualized is hardwarefor posterior | | fusion from L2 through L4 with spacer hardware at these levels.Additional right lateral | | fusion hardware is present from L1 through L2. Thehardware are intact. There is mild | | retrolisthesis of L1 over L2 and L4 over L5.Mild anterolisthesis is observed of L2 over | | L3. Bone mineralization is normal.Vertebral body height are preserved with no evidence | | for compression fractures.Moderate disc narrowing are at T12-L1 and L4-5 with vacuum | | phenomenon.Multilevel facet sclerosis and hypertrophy are seen. Visualized ribs and | | pelvicosseous structures show no acute findings. There is mild | | atherosclerosis.IMPRESSION -Stable posterior fusion from L2 through L4 and right lateral | | fusion from L2hpndcvx L2.Dictated and Signed by: Keven Suarez MD Electronically | | signed: 03/25/2018 4:00 PM | |Moderate disc narrowing are at T12-L1 and L4-5 with vacuum phenomenon. | |Multilevel facet sclerosis and hypertrophy are seen. Visualized ribs and pelvic | |osseous structures show no acute findings. There is mild atherosclerosis. | | | |IMPRESSION - | |Stable posterior fusion from L2 through L4 and right lateral fusion from L1 | |through L2. | | | |Dictated and Signed by: Keven Suarez MD | | Electronically signed: 03/25/2018 4:00 PM | + + + +---------+ + [...]
--- OUTSIDE RECORDS SUMMARY | ~2019-11-22 | XMS | Encounter Summary ---
Demographics + + + | Address | [address] | | | [place] [address] | + + + | Home Phone | | + + + | Preferred Language | Unknown | + + + | Marital Status | | + + + | Voodoo Affiliation | 1077 | + + + [...] Team Providers + +------+ + | Care Asphalt Plant Worker Name | Role | Phone | + +------+ + | Aldo Frank DO | PCP | | + +------+ + Reason for Visit + + + | Reason | Comments | + + + | Pre-op Exam | Spinal Cord Stimulator Placement on 06/18/19 | + + + Encounter Details +--------+---------+ + + + | Date | Type | Department | Care Team | Description | +--------+---------+ + + + | 06/09/ | Office | [facility] | Brian Noble, | Failed back syndrome | | 2019 | Visit | NEUROSURGERY [address] | PA-C [address] | (Primary Dx); S/P | | | | [address] | [address] [place] | lumbar fusion | | | | [place], [place] | [place] [address] | | | | | [address] | [phone] | | | | | [phone] | | | +--------+---------+ + + + [...] + + + | Blood Pressure | 140/78 | 06/09/2019 10:18 AM | | | | | PST | | + + + + + | Pulse | 75 | 06/09/2019 10:18 AM | | | | | PST | | + + + + + | Temperature | - | - | | + + + + + | Respiratory Rate | - | - | | + + + + + | Oxygen Saturation | 98% | 06/09/2019 10:18 AM | | | | | PST | | + + + + + | Inhaled Oxygen | - | - | | | Concentration | | | | + + + + + | Weight | 85.3 kg (188 lb) | 06/09/2019 10:18 AM | | | | | PST | | + + + + + | Height | 175.3 cm (5' 9") | 06/09/2019 10:18 AM | | | | | PST | | + + + + + | Body Mass Index | 27.76 | 06/09/2019 10:18 AM | | | | | PST [...] of this encounter Patient Instructions Patient Instructions Jia Clark RN - 06/09/2019 10:00 AM PST We will call you 2 business days prior to your scheduled surgery to let you know when to [facility]ung into [facility] on the day of surgery. If your health status changes between now and surgery please let us know. Do not eat or drink anything after midnight the night before your surgery. This includes c offee! You may take routine essential medications with a sip of water the morning of your s urgery. Please review the medications you were instructed to stop taking before surgery. Remember t o stop taking anti-inflammatory medications at least 7 days before surgery. This includes ib uprofen, Motrin, Advil, aspirin, naproxen, and Aleve. Here are some resources that may be helpful for managing postoperative pain: Persistent Pain Toolkit for Patients and Families: Includes education on pain in general (multiple languages) and education on pain after inju ry or surgery. Relaxation videos practice techniques to quiet pain. https://[place].[facility]/our-services/p/hiyatvqdou-jnchdvlisy-xzly/qtprrcwvzj-ipth-brh lkit/powskgc-vmb-rjujpgem-toolkit/pcvmzd-sjop-jrtelpfef/ Surgical Pain Handout: https://www.[place]ridhar.[place].gov/Portals/1/Documents/9220/262409-KbzwqwyMlvucwsxyleg-PoesgmgiOxjp.pdf If you have any questions or concerns, please call the neurosurgery clinic o r send us a My Chart message. 10 :24 AM PST documented in this encounter Progress Notes Jia Clark RN - 06/09/2019 10:00 AM PSTInformed consent for the planned procedure was s igned and a copy provided to the patient. Patient was advised to stop taking the following medications:fish oil, NSAIDS and supplemen ts-hold 7 days prior to surgery Preoperative instructions were discussed and all questions were answered at this time. Patient was encouraged to contact the neurosurgery clinic with any questions, concerns, or changes in health status or medications prior to surgery. Patient was advised that we will notify regarding check in for surgery 2 business days prio r to the date of surgery. Brian Sharp PA-C - 06/09/2019 10:00 AM PST Brian Noble PA-C [address] [facility], [address] [place], [place] [address] FAX: [phone] NEUROSURGERY HISTORY AND PHYSICAL EXAMINATION CHIEF COMPLAINT: Chief Complaint Patient presents with Pre-op Exam Spinal Cord Stimulator Placement on 06/18/19 HISTORY OF PRESENT ILLNESS: Cosmo Johnson is a 74 y.o. male who presents for a pre- operative exam. He was last seen by Dr. Bass on 05/12/2019 with the complaint of back an d bilateral leg symptoms that began several years ago. He has a history of lumbar fusion wi Dr. Damian. He had a Nevro trial by Dr. Riggs on 03/25/2019 with benefit. He is sched uled to have a SCS placement on 06/18/19. The back symptoms have been gradually worsening. He rates the back pain as moderate to sev ere. The back symptoms are continuous. He describes the back pain as sharp, aching and tig ht band. He does not report any change in bowel or bladder function recently but did state he had hi s rectum removed and does have troubles making it to the bathroom but this has been ongoing. He has tried Physical Therapy, Surgery, Opioids, NSAIDS, Steroids and Injections. He has damon d two injections, the first one was a bilateral lumbar facet steroid injection at L4-L5 and L5-S1 on 07/22/2018 and the second injection was a bilateral L3, L4 medial branch blocks and bilateral L5 dorsal ramus blocks on 09/25/[address] Riggs. He is not currently taki ng opiates, muscle relaxer's, or nerve medications. wanted to make certain th at he did not have a significant thoracic spondylosis problem and ordered a thoracic MRI whi john I have reviewed. He has had no interval changes in the severity or character of his symptoms since his last visit. He denies any shortness of breath or chest pain. He denies any fever or chills. He has no open sores on his body and has not had any antibiotics recently. PAST MEDICAL HISTORY: Past Medical History: Diagnosis [...] History: Procedure Laterality Date CATARACT REMOVAL Left 2016 Wrinkle repair, detached retina COLONOSCOPY 04/2014 FINGER SURGERY Left 2012 4th & 5th digit; saw injury FINGER TRIGGER RELEASE Right Hand HAND SURGERY Left trauma ILEOSTOMY OR JEJUNOSTOMY 2009 rectal adenocarcinoma INGUINAL HERNIA REPAIR Bilateral LUMBAR LAMINECTOMY 10/22/2013 L2-3, L3-4 TRANSFORAMINAL LUMBAR INTERBODY FUSION; Laterality: N/A; Surgeon: Kemal Damian MD; Location: [facility] MA[facility] OR LUMBAR LAMINECTOMY Dr. Tavarez LUMBAR SPINE SURGERY N/A 06/19/2017 Procedure: L1-2 LAIF w/ Lateral Plating; Surgeon: Kemal Damian MD; Location: [facility] MA[facility] OR CA NJX DX/THER SBST EPIDURAL/SUBRACH CERV/THORACIC N/A 03/25/2019 Procedure: SCS; Surgeon: Pj Riggs MD; Location: [facility] INTERVENTIONAL RADIOLOGY SMALL INTESTINE SURGERY 2011 Rectal adenocarcinoma; Ileostomy takedown reanastomis rectum/colon TOTAL KNEE ARTHROPLASTY Right 03/2015 TOTAL KNEE ARTHROPLASTY Left 2015 CURRENT MEDICATIONS: Current Outpatient Medications Medication Sig Dispense Refill acetaminophen (TYLENOL) 325 mg tablet Take 650 mg by mouth 3 times daily. Prn pain amLODIPine (NORVASC) 5 mg tablet 0 fish oil 1,000 mg capsule Take 1,000 mg by mouth 3 times daily. hydroCHLOROthiazide 25 mg tablet Take 1 tablet by mouth Daily. 0 potassium chloride (KLOR-CON) 10 mEq CR [...] Reaction not specified in outside medical records SOCIAL HISTORY: He reports that he has never smoked. He has never used smokeless tobacco. He reports curre nt alcohol use of about 6.0 standard drinks [...] Maternal Grandfather No known problems Paternal Grandfather Review of Systems Constitutional: Negative. HENT: Negative. Eyes: Positive for blurred vision. Respiratory: Negative. Cardiovascular: Negative. Gastrointestinal: Positive for constipation. Genitourinary: Negative. Musculoskeletal: Positive for back pain. Skin: Negative. Neurological: Positive for headaches. Endo/Heme/Allergies: Negative. Psychiatric/Behavioral: Negative. PHYSICAL EXAMINATION: Blood pressure 140/78, pulse 75, height 1.753 m (5' 9"), weight 85.3 kg (188 lb), SpO2 98 % . Body mass index is 27.76 kg/m. GENERAL: Cosmo Johnson is in no acute distress with unlabored respirations. He does appear comfortable throughout the exam today. HEENT: Head: Normocephalic/atraumatic with no areas of recent trauma. Eyes: Normal sclerae without icterus. Ears: No drainage or tenderness. Nasopharynx: Clear without drainage. Oropharynx: Clear without erythema. NECK (ANTERIOR): Supple and without palpable masses. CHEST: Clear to ausculation without crackles or wheeze. HEART: Regular rate and rhythm without murmurs. ABDOMEN: Soft, non-tender, non-distended, and without palpable masses. EXTREMITIES: No cyanosis, clubbing, or edema. Distal pulses are palpable. NEUROLOGICAL EXAM: MENTAL STATUS: He is awake, alert, and oriented. He follows simple and complex commands. His speech is fluent, he comprehends speech well, and he repeats well. He has no apparent deficits with short or senior living memory. CRANIAL NERVES: II: Acuity is intact. Mitchell are full to confrontation. III, IV, : The pupils are reactive. Extraocular movements are intact. No ptosis is note d. V: Facial sensation is intact and symmetric. VII: Facial movements are symmetric. VIII: Hearing is intact bilaterally. IX, X: The uvula and palate move appropriately. XI: Shrug is equal bilaterally. XII: Tongue protrusion is midline. MOTOR EXAM: (5 IS NORMAL) * Indicates pain limited MUSCLE/ MOVEMENT: RIGHT LEFT Hip Flexion 5 5 Hip Extension 5 5 Knee Flexion 5 5 Knee Extension 5 5 Dorsiflexion 5 5 Extensor Hallicus Longus 5 5 Plantarflexion 5 5 SENSORY EXAM: Sensory exam shows no diminished sensation to light touch or pain throughout the upper and lower extremities. REFLEXES: (2 OR 2+ IS NORMAL) REFLEX: RIGHT LEFT PATELLAR 1 1 ACHILLES 1 1 LAUREN'S ABSENT ABSENT CLONUS ABSENT ABSENT BABINSKI NEGATIVE NEGATIVE TEST AND RADIOGRAPHIC REVIEW: His imaging was reviewed in detail today during the visit. The thoracic MRI from 9 shows multilevel spondylitic disease but no area of significant canal narrowing or cord co mpression. ASSESSMENT: Failed back syndrome with successful spinal cord stimulator trial. NEUROSURGICAL DIAGNOSES: Encounter Diagnoses Name Primary? Failed back syndrome Yes S/P lumbar fusion GENERAL DIAGNOSES: Past Medical History: Diagnosis Date Acute ischemic [...] radiculopathy 09/12/2018 Synovitis Systemic hypertension Thoracic neuritis PLAN: Cosmo Johnson presented today for re-evaluation of an ongoing back issue and his marce rologic problems. He has chronic low back pain due to spondylitic change that did not improve sufficiently af ter spinal fusion. Fortunately he has responded well to a trial of spinal cord stimulation. I had a lengthy discussion with him about his options for care including surgical and non-s urgical options. In discussing surgical options, we discussed permanent placement of spinal cord stimulator using Nevro. I have explained to him the way in which I placed a permanent spinal cord stim ulator. I have also emphasized that even with a properly functioning spinal cord stimulator in my experience with complete pain relief is unlikely. He understands that in most instances the recovery from surgery can be lengthy and sometime s difficult. He will present as planned for the scheduled surgery on 06/18/2019. He does mention today t hat he has some Hydrocodone on hand at home. I, Brian Noble PA-C, personally performed the services described in this documentati on, as scribed by KAT Gutierrez in my presence, and it is both accurate and complete. Portions of the HPI and plan were pulled forward from 05/12/19. Information has been added and updated during the office visit today 06/09/19. ELECTRONICALLY SIGNED BY: Brian Noble PA-C, 06/09/2019 10:46 AM documented in thi s encounter Plan of Treatment Not on filedocumented as of this encounter Visit Diagnoses + + | Diagnosis | + + | Failed back syndrome - Primary Other unspecified back disorder | + + | S/P lumbar fusion Arthrodesis status | + + documented in this encounter
--- OUTSIDE RECORDS SUMMARY | ~2019-11-22 | XMS | Encounter Summary ---
Demographics + + + | Address | [address] | | | [place] [address] | + + + | Home Phone | | + + + | Preferred Language | Unknown | + + + | Marital Status | | + + + | Alevism Affiliation | 1077 | + + + | Race | Unknown | + + + | Ethnic Group | Unknown | + + + Author + + + | Author | [facility] | | | and [place] | + + + | Organization | [facility] | | | and [...] Team Providers + +------+ + | Care Sail Maker Name | Role | Phone | + +------+ + | Hay Greco MD | PCP | | + +------+ + Reason for Visit +---------+ + | Reason | Comments | +---------+ + | Post Op | Post Op Call | +---------+ + Encounter Details +--------+ + + + + | Date | Type | Department | Care Team | Description | +--------+ + + + + | 06/26/ | Telephone | [facility] | Kemal Damian MD | Post Op (Post Op | | 2017 | | NEUROSURGERY [address] | [address] | Call) | | | | [address] | [place] [address] | | | | | [place] | [phone] | | | | | [address] | | | | | | [phone] | | | +--------+ + + + [...]
--- OUTSIDE RECORDS SUMMARY | ~2019-11-22 | XMS | Encounter Summary ---
Demographics + + + | Address | [address] | | | [place] [address] | + + + | Home Phone | | + + + | Preferred Language | Unknown | + + + | Marital Status | | + + + | Samaritan Affiliation | PRE | + + + | Race | White | + + + | Ethnic Group | Not or | + + + Author + + + | Author | [facility] | + + + | Organization | [facility] | + + + | Address | Unknown | + + + | Phone | Unavailable | + + + Support + + + + + | Name | Relationship | Address | Phone | + + + + + | Ricarda Johnson | ECON | [address] | | | | | [place] | | | | | [address] | | + + + + + Care Team Providers + +------+ + | Care Flexographic Press Operator Name | Role | Phone | + +------+ + | Hay Greco MD | PCP | | + +------+ + Encounter Details +--------+ + + + + | Date | Type | Department | Care Team | Description | +--------+ + + + + | 07/10/ | Abstract | [facility] | Clinic, Surgery | | | 2010 | | [place] [facility] [address] | | | | | | Debbie Mock | | | | | | Mailcode: Center | | | | | | [facility] | | | | | | [facility]aling, [address] | | | | | | [place], [place] | | | | | | [address] | | | | | | [phone] | | | +--------+ + + + [...]
--- OUTSIDE RECORDS SUMMARY | ~2019-11-22 | XMS | Encounter Summary ---
Demographics + + + | Address | [address] | | | [place] [address] | + + + | Home Phone | | + + + | Preferred Language | Unknown | + + + | Marital Status | | + + + | Nondenominational Affiliation | 1077 | + + + | Race | Unknown | + + + | Ethnic Group | Unknown | + + + Author + + + | Author | [facility] | | | and [place] | + + + | Organization | [facility] | | [...] Team Providers + +------+ + | Care Ingot Header Name | Role | Phone | + +------+ + | Aldo Frank DO | PCP | | + +------+ + Reason for Visit +--------+ + | Reason | Comments | +--------+ + | Forms | Post Procedure Instructions | +--------+ + Encounter Details +--------+ + + + + | Date | Type | Department | Care Team | Description | +--------+ + + + + | 08/11/ | Telephone | [facility] | Kemal Damian MD | Forms (Post | | 2019 | | NEUROSURGERY [address] | [address] | Procedure | | | | [address] | [place] [address] | Instructions) | | | | [place] | [phone] | | | | | [address] | | | | | | [phone] | | | +--------+ + + + [...]
--- OUTSIDE RECORDS SUMMARY | ~2019-11-22 | XMS | Encounter Summary ---
Demographics + + + | Address | [address] | | | [place] [address] | + + + | Home Phone | | + + + | Preferred Language | Unknown | + + + | Marital Status | | + + + | Yazidi Affiliation | PRE | + + + | Race | White | + + + | Ethnic Group | Not or | + + + Author + + + | Author | [facility] | + + + | Organization | [facility] | + + + | Address | Unknown | + + + | Phone | Unavailable | + + + Support + + + + + | Name | Relationship | Address | Phone | + + + + + | Ricarda Johnson | ECON | [address] | | | | | [place] | | | | | [address] | | + + + + + Care Team Providers + +------+ + | Care Soybean Grower Name | Role | Phone | + +------+ + | Hay Greco MD | PCP | | + +------+ + Encounter Details +--------+ + + + + | Date | Type | Department | Care Team | Description | +--------+ + + + + | 10/09/ | Abstract | Infectious | Rona Kulkarni | | | 2011 | | [facility] | JUNI Pace [address] | | | | | [address] | [address] | | | | | [address] Physician[address] | [place], [place] | | | | | [address], [facility] floor | [address] | | | | | [place], [place] | [phone] | | | | | [address] | | | | | | [phone] | | | +--------+ + + + [...] | + +--------+ + + + | CBC, WITH | Routin | 10/10/2011 | | Results for this | | DIFFERENTIAL | e | 8:50 AM | | procedure are in the | | | | PDT | | results section. | + +--------+ + + + | COMPLETE METABOLIC | Routin | 10/10/2011 | | Results for this | | SET | e | 8:50 AM | | procedure are in the | | (NA,K,CL,CO2,BUN,CRE | | PDT | | results section. | | AT,GLUC,CA,AST,ALT,B | | | | | | HUMERA TOTAL,ALK | | | | | | PHOS,ALB,PROT TOTAL) | | | | | + +--------+ + + + documented in this encounter Results COMPLETE METABOLIC SET (NA,K,CL,CO2,BUN,CREAT,GLUC,CA,AST,ALT,BILI TOTAL,ALK PHOS,ALB,PROT TOTAL) (10/10/2011 8:50 AM PDT) + +-------+ + + + | Component | Value | Ref Range | Performed | Pathologist | | | | | At | Signature | + +-------+ + + + | GLUCOSE, | 98 | 65 - 110 mg/dL | NON [facility] | | | PLASMA | | | LAB | | | (LAB) | | | | | + +-------+ + + + | BUN, PLASMA | 25 | mg/dL | NON [facility] | | | (LAB) | | | LAB | | + +-------+ + + + | CREATININE | 1.49 | mg/dL | NON [facility] | | | PLASMA | | | LAB | | | (LAB) | | | | | + +-------+ + + + | TOTAL | 6.8 | g/dL | NON [facility] | | | PROTEIN, | | | LAB | | | PLASMA | | | | | | (LAB) | | | | | + +-------+ + + + | ALBUMIN, | 4.4 | g/dL | NON [facility] | | | PLASMA | | | LAB | | | (LAB) | | | | | + +-------+ + + + | CALCIUM, | 9.4 | mg/dL | NON [facility] | | | PLASMA | | | LAB | | | (LAB) | | | | | + +-------+ + + + | BILIRUBIN | 0.5 | Transcutaneous | NON [facility] | | | TOTAL | | Bilirubinometer | LAB | | + +-------+ + + + | ALK PHOS | 87 | U/L | NON [facility] | | | | | | LAB | | + +-------+ + + + | AST(SGOT) | 17 | U/L | NON [facility] | | | | | | LAB | | + +-------+ + + + | SODIUM, | 138 | mmol/L | NON [facility] | | | PLASMA | | | LAB | | | (LAB) | | | | | + +-------+ + + + | POTASSIUM, | 4.9 | mmol/L | NON [facility] | | | PLASMA | | | LAB | | | (LAB) | | | | | + +-------+ + + + | CHLORIDE, | 107 | mmol/L | NON [facility] | | | PLASMA | | | LAB | | | (LAB) | | | | | + +-------+ + + + | TOTAL CO2, | 21 | mmol/L | NON [facility] | | | PLASMA | | | LAB | | | (LAB) | | | | | + +-------+ + + + | ALT (SGPT) | 11 | U/L | NON [facility] | | | | | | LAB | | + +-------+ + + + | C-REACTIVE | <5 | mg/dl | NON [facility] | | | PROTEIN | | | LAB | | + +-------+ + + + + + | Specimen | + + | Blood - Blood | + + + +---------+ + + | Performing | Address | City/State/Zipcode | Phone Number | | Organization | | | | + +---------+ + + | NON [facility] | | | | + +---------+ + + CBC, WITH DIFFERENTIAL (10/10/2011 8:50 AM PDT) + + + + + + | Component | Value | Ref Range | Performed | Pathologist | | | | | At | Signature | + + + + + + | WHITE CELL | 4.6 | K/cu mm | NON [facility] | | | COUNT | | | LAB | | + + + + + + | RED CELL | 3.83 | M/cu mm | NON [facility] | | | COUNT | | | LAB | | + + + + + + | HEMOGLOBIN | 12.4 (A) | 13.5 - 17.5 | NON [facility] | | | | | g/dL | LAB | | + + + + + + | HEMATOCRIT | 36.4 | % | NON [facility] | | | | | | LAB | | + + + + + + | MCV | 95 | fL | NON [facility] | | | | | | LAB | | + + + + + + | MCH | 32 | pg | NON [facility] | | | | | | LAB | | + + + + + + | MCHC | 34 | g/dL | NON [facility] | | | | | | LAB | | + + + + + + | PLATELET | 186 | K/cu mm | NON [facility] | | | COUNT | | | LAB | | + + + + + + | NEUTROPHIL | 80.3 | % | NON [facility] | | | % | | | LAB | | + + + + + + | LYMPHOCYTE | 10.7 | % | NON [facility] | | | % | | | LAB | | + + + + + + | MONOCYTE % | 4.9 | % | NON [facility] | | | | | | LAB | | + + + + + + | EOS % | 3.1 | % | NON [facility] | | | | | | LAB | | + + + + + + | BASO % | 1 | % | NON [facility] | | | | | | LAB | | + + + + + + | RDW | 12.9 | % | NON [facility] | | | | | | LAB | | + + + + + + | MPV | | fL | NON [facility] | | | | | | LAB | | + + + + + + | NEUTROPHIL | | K/cu mm | NON [facility] | | | # | | | LAB | | + + + + + + | LYMPHOCYTE | | K/cu mm | NON [facility] | | | # | | | LAB | | + + + + + + | MONOCYTE # | | K/cu mm | NON [facility] | | | | | | LAB | | + + + + + + | EOS # | | K/cu mm | NON [facility] | | | | | | LAB | | + + + + + + | BASO # | | | NON [facility] | | | | | | LAB | | + + + + + + | ESR (SED | 40 | | NON [facility] | | | RATE) | | | LAB | | + + + + + + + + | Specimen | + + | Blood - Blood | + + + +---------+ + + | Performing | Address | City/State/Zipcode | Phone Number | | Organization | | | | + +---------+ + + | NON [facility] | | | | + +---------+ + + documented in this encounter Visit Diagnoses Not on filedocumented in this encounter"
--- OUTSIDE RECORDS SUMMARY | ~2019-11-22 | XMS | Encounter Summary ---
Demographics + + + | Address | [address] | | | [place] [address] | + + + | Home Phone | | + + + | Preferred Language | Unknown | + + + | Marital Status | | + + + | Gnosticism Affiliation | 1077 | + + + | Race | Unknown | + + + | Ethnic Group | Unknown | + + + Author + + + | Author | [facility] | | | and [place] | + + + | Organization | [facility] | | | [...] Team Providers + +------+ + | Care [employer] Teacher Name | Role | Phone | [...] + + | Closed | Specialty | Physical | Diagnoses | Yaya | [facility] | | | Services | Medicine and | S/P lumbar | Kirk | Pj Singer MD | | | Required | Rehabilitatio | fusion | JUNI Ibarra | [address] | | | | n | Spondylolist | [address] | [facility] | | | | | hesis of | [address] | [place], [place] | | | | | lumbar | [place], [place] | [address] Phone: | | | | | region | [address] | [phone] | | | | | Facet | Phone: | Fax: | | | | | arthropathy, | [phone] | [phone] | | | | | lumbar | Fax: | | | | | | Lumbar | [phone] | | | | | | radicular | | | | | | | pain | | | +--------+ + + + + + Reason for Visit + + + | Reason | Comments | + + + | Follow-up | 9M post op | + + + Encounter Details +--------+---------+ + + + | Date | Type | Department | Care Team | Description | +--------+---------+ + + + | 03/25/ | Office | [facility] | Gucci Javierlas | S/P lumbar fusion | | 2018 | Visit | NEUROSURGERY [address] | [address] | (Primary Dx); | | | | [address] | [address] | Spondylolisthesis of | | | | [place], [place] | [place] [address] | lumbar region; | | | | [address] | [phone] | Facet arthropathy, | | | | [phone] | | lumbar (HCC); Lumbar | | | | | | radicular pain | +--------+---------+ + + + Social History [...] + + + | Blood Pressure | 123/74 | 03/25/2018 3:17 PM | | | | | PDT | | + + + + + | Pulse | 66 | 03/25/2018 3:17 PM | | | | | PDT [...] Weight | 83.9 kg (185 lb) | 03/25/2018 3:17 PM | | | | | PDT | | + + + + + | Height | 175.3 cm (5' 9") | 03/25/2018 3:17 PM | | | | | PDT | | + + + + + | Body Mass Index | 27.32 | 03/25/2018 3:17 PM | | | | | PDT [...] of this encounter Patient Instructions Patient Instructions Jesusita Malone, Tooth Polisher - 03/25/2018 3:30 PM PDTIt was a pleasure to see you today. Here is what we discussed. - Let pain be your guide. If you are doing an activity that starts causing you pain back of f and ease back into it slowly. We don't want you taking any risks that do not need to be ta maria elena. - We will send an order for you to be evaluated and treated by Dr. Riggs. His office w ill call you to get you scheduled for an appointment once your referral has been approved by your insurance. T documented in this encounter Progress Notes Kirk Javier PA-C - 03/25/2018 3:30 PM PDTFormatting of this note might be differ ent from the original. Kirk Javier PA-C [address] [facility] [address] [place] [address] FAX: NEUROSURGERY FOLLOW-UP CHIEF COMPLAINT: Chief Complaint Patient presents with Follow-up 9M post op HISTORY OF PRESENT ILLNESS: The patient is a 72 y.o. male that had a L1-2 LAIF w/ Lateral Plating for back and leg symptoms around 06/19/2017. He returns and overall is doing okay. He complains of back pain that is not improving. He has been getting by, but is still having the pain he had been dealing with. He states that he has seen some improvement since surger y but not as much as he was hopping for. He describes that his back pain is greater than his leg symptoms. He continues to take his Hydrocodone a few times a week as needed for pain. Flakita ortega has been walking as much as directed. When he starts out walking there Is an ache/burning sensation present in the right posterior leg, but when he sits down to take a break the achi ng goes away. The burning right leg pain is intermittent and radiating down the back of his leg. He is also fearful to lift anything because the back pain gets so bad afterwards. He states that he would like to be well enough for the coming hunting season. CURRENT MEDICATIONS: Current Outpatient Prescriptions Medication Sig Dispense Refill acetaminophen (TYLENOL) 325 mg tablet Take 650 mg by mouth 3 times daily. Prn pain amLODIPine (NORVASC) 5 mg tablet 0 ferrous sulfate 325 mg tablet Take 325 mg by mouth daily (with breakfast). fish oil 1,000 mg capsule Take 1,000 mg by mouth 3 times daily. hydroCHLOROthiazide 25 mg tablet Take 1 tablet by mouth Daily. 0 HYDROcodone-acetaminophen (NORCO) 7.5-325 mg per tablet Take 1-2 tablets by mouth every 4 hours as needed for Pain (takes 5 tabs a week). 60 tablet 0 potassium chloride (KLOR-CON) 10 mEq CR tablet Take 20 mEq by mouth Daily. 0 Red Yeast Rice 600 MG CAPS Take 1,200 mg by mouth Daily. No current facility-administered medications for this visit. ALLERGIES: Allergies Allergen Reactions Povidone Iodine Hives and Rash "skin blackwell" Chlorhexidine Gluconate Rash and Other (See Comments) Redness Ezetimibe Other (See Comments) Reaction not specified in outside medical records Lovastatin Other (See Comments) Myalgias SOCIAL HISTORY: The patient reports that he has never smoked. He has never used smokeless tobacco. He repo rts that he drinks about 3.6 oz of alcohol per week . He reports that he does not use drugs. REVIEW OF SYSTEMS GENERALLY: No fever, no night sweats, no anemia, no fatigue, no recent profound weight ch anges. EYES: No eye problems, no use of corrective lenses, no eye injury, no double vision, no bl indness. EARS, NOSE, AND THROAT: No changes in taste or smell, no hearing difficulty, + ringing in the ears, no ear drainage, no dizziness, no voice changes, no difficulty swallowing, no sign ificant snoring, no sleep apnea, no sinus problems, no major dental work. NEUROLOGICALLY: Please see the review of systems discussed above in the history of present illness. In addition, the patient has weakness, coordination difficulty, pain in back, and headaches. PSYCHIATRIC: No depression, no sleep disorders, no anxiety, no bipolar disorder, no psycho tic episodes. CARDIOVASCULAR: No heart attacks, no heart murmur, no heart fluttering, no chest pain, no ankle swelling. LUNG DISEASE: No shortness of breath, no cough, no tuberculosis, no bloody cough, no asth ma, no emphysema/COPD. GASTROINTESTINAL: No bowel disease, no nausea or vomiting, no rectal bleeding, no constipa tion, no stool incontinence, no liver disease, no gallbladder disease, no abdominal pain, no ulcers. KIDNEY DISEASE: No urinary frequency, no painful or difficult urination, no incontinence. ENDOCRINE: No diabetes, no thyroid disease, no osteopenia or osteoporosis, no breast drain age. SKIN: No breast lumps, no skin changes, no rashes, no itches. HEMATOLOGIC/LYMPHATIC: No enlarged lymph nodes, no easy or unusual bleeding, no personal h istory of cancer. RHEUMATOLOGIC: + joint arthritis, no rheumatoid arthritis. INTERIM PHYSICAL EXAMINATION: Blood pressure 123/74, pulse 66, height 1.753 m (5' 9"), weight 83.9 kg (185 lb). Body mass index is 27.32 kg/m. GENERAL: Cosmo Johnson is in no acute distress with unlabored respirations. SPINE: The patient s incisions are healing well without drainage, significant erythema, o r discharge. Pain to palpation on the L4-L5 region. EXTREMITIES: No lower extremity edema. NEUROLOGICAL EXAMINATION: MENTAL STATUS: The patient is awake, alert, and oriented. He follows simple and complex commands MOTOR EXAM: Motor strength is 5/5 bilat LE. This is improved when compared to the preopera tive exam. SENSORY EXAM: The sensory examination is improved when compared to the preoperative exam. RADIOGRAPHIC REVIEW: The patient s x-rays show stable instrumentation and alignment and were reviewed with the patient today. The fusion now appears complete or nearly complete with no interval concern s. ASSESSMENT: Encounter Diagnoses Name Primary? S/P lumbar fusion Yes Spondylolisthesis of lumbar region Facet arthropathy, lumbar (HCC) Lumbar radicular pain Past Medical History: Diagnosis Date Acute ischemic heart disease (HCC) Bone marrow aplasia (HCC) Colon cancer (HCC) Defecation urgency Headache syndrome benign High cholesterol HLD (hyperlipidemia) Internal derangement of knee Low back pain Lumbar spinal stenosis - above fusion L1/L2 03/07/2017 Osteoarthritis Osteoarthrosis, hand Radiculopathy, lumbar region Rectal malignant neoplasm (HCC) 07/2010 chemo, radiation, surgery Synovitis Systemic hypertension Thoracic neuritis PLAN: Overall, the patient is doing well. Some of the preoperative symptoms are improved. He un fortunately is having back greater than leg pain. Most bothersome is his back pain and that is what is limiting him at this time I increased the patient s activities now allowing a 30 pound lifting restriction that can be gradually increased to an as tolerated limit. The patient should increase range of michelle on activities as tolerated. I would like the patient to advance slowly with this process an d discussed this at length during today's visit. I would also like the patient to continue with postoperative rehabilitation and to advance with therapy as tolerated. The patient no longer needs follow-up for this issue. They can contact us should new issue s develop. Thank you for allowing me to care for this patient. We will send a referral for him to be evaluated and treated by Dr. Riggs. Today we d iscussed facet injections. We also discussed possibly moving toward ablative therapy if it was felt to be beneficial. The patient can return to our office if he is feeling conservati ve therapy I, Kirk Javier PA-C, personally performed the services described in this documentation , as scribed by Jesusita Gauthier in my presence, and it is both accurate and complete. Kirk Javier PA-C 03/25/2018 ELECTRONICALLY SIGNED BY: Kirk Javier PA-C, 03/25/2018 16:04 Portions of this report were transcribed using [employer] voice recognition software. A lthough effort was made in correcting the errors; grammatical and sound alike errors may sti ll be present. documented in this encounter Plan of Treatment + + +--------+ + + | Name | Type | Priori | Associated Diagnoses | Order Schedule | | | | ty | | | + + +--------+ + + | [facility] | Outpatient | Routin | S/P lumbar fusion | Ordered: 03/25/2018 | | | Referral | e | Spondylolisthesis | | | | | | of lumbar region | | | | | | Facet arthropathy, | | | | | | lumbar Lumbar | | | | | | radicular pain | | + + +--------+ + + documented as of this encounter Visit Diagnoses + + | Diagnosis | + + | S/P lumbar fusion - Primary Arthrodesis status | + + | Spondylolisthesis of lumbar region Acquired spondylolisthesis | + + | Facet arthropathy, lumbar Lumbosacral spondylosis without myelopathy | + + | Lumbar radicular pain Thoracic or lumbosacral neuritis or radiculitis, unspecified | + + documented in this encounter
--- OUTSIDE RECORDS SUMMARY | ~2019-11-22 | XMS | Encounter Summary ---
Demographics + + + | Address | [address] | | | [place] [address] | + + + | Home Phone | | + + + | Preferred Language | Unknown | + + + | Marital Status | | + + + | Sikhism Affiliation | 1077 | + + + | Race | Unknown | + + + | Ethnic Group | Unknown | + + + Author + + + | Author | [facility] | | | and [place] | + + + | Organization | [facility] | | | [...] Team Providers + +------+ + | Care Dry Box Tender Name | Role | Phone | + [...] | | | | | Lumbar | [place], | [address] | | | | | spondylosis | Pj Singer MD | [place], | | | | | Procedures | [address] | [place] | | | | | MS INJ | [place] | [address] | | | | | DX/THER AGNT | [place], [place] | Phone: | | | | | [address] | [address] | [phone] | | | | | FACET JOINT, | Phone: | Fax: | | | | | LUMBAR/SAC, | [phone] | [phone] | | | | | 1ST LEVEL | Fax: | | | | | | MS INJ | [phone] | | | | | | DX/THER AGNT | | | | | | | [place] | | | | | | | FACET JOINT, | | | | | | | LUMBAR/SAC, | | | | | | | 2ND LEVEL | | | | | | | MS | | | | | | | TRIAMCINOLON | | | | | | | E ACET INJ | | | | | | | NOS, 10 MG | | | | | | | Bilat. | | | | | | | L4-L5, L5-S1 | | | | | | | Facet | | | +--------+--------+ + + + + Encounter Details +--------+ + + + + | Date | Type | Department | Care Team | Description | +--------+ + + + + | 07/22/ | Hospital | [facility] | David Brower, | Lumbar spondylosis | | 2019 | Encounter | MED CTR XRAY [address] | PA-C [address] | | | | | [address] [place] | [address] [place] | | | | | [place] [address] | [place] [address] | | | | | [phone] | [phone] | | | | | | | | | | | | [employer], [facility] | | | | | | [place] [...] +---------+ + + | Blood Pressure | 176/88 | 07/22/2018 1:06 PM | | | | | PST | | + +---------+ + + | Pulse | 69 | 07/22/2018 1:06 PM | | | | | PST | | + +---------+ + + | [...] + + + +---------+ + + | diphenhydrAMINE | Take 1 tab PO 1 hour | 1 | 0 | 05/05/20 | | | (BENADRYL) 50 mg | before procedure | capsule | | 18 | 9 | | capsule | | | | | | [...] + + + +---------+ + + | predniSONE | 1 tab PO 13 hours | 3 | 0 | 05/05/20 | | | (DELTASONE) 50 mg | before procedure, 1 | tablet | | 18 | 9 | | tablet | tab PO 7 hours | | | | | | | before procedure, 1 | | | | | | | tab PO 1 hour before | | | | | | | procedure | | | | | + + [...] | FL FACET INJECTION | Routin | 07/22/2018 | Lumbar spondylosis | Results for this | | LUMBAR SACRAL | e | 12:45 PM | | procedure are in the [...] iohexol (OMNIPAQUE 300) 300 | Given | 07/22/19 | 3 mLs | | | | mg/mL injection 3 mL 3 mL, | | 19 1:00 | | | | | Other, ONCE, James 07/22/18 at 1315, | | PM PST | | | | | For 1 dose | | | | | | + +--------+ +-------+------+------+ +---+---+ | | | +---+---+ + +-------+ +-------+---+ + | lidocaine buffered 0.9% | Given | 07/22/19 | 6 mLs | | Other | | injection 6 mL 6 mL, | | 19 12:55 | | | (Comment | | Intradermal, ONCE, 07/22/18 at | | PM PST | | | ) | | 1315, For 1 dose | | | | | | + +-------+ +-------+---+ + +---+---+ | | | +---+---+ + +-------+ +-------+---+---+ | ropivacaine (NAROPIN) 5 mg/mL | Given | 07/22/19 | 2 mLs | | | | (0.5%) injection 2 mL 2 mL, | | 19 1:05 | | | | | PERINEURAL, ONCE, 07/22/18 at | | PM PST | | | | | 1315, For 1 dose | | | | | | + +-------+ +-------+---+---+ +---+---+ | | | +---+---+ + +-------+ +-------+---+---+ | triamcinolone acetonide | Given | 07/22/19 | 80 mg | | | | (KENALOG-40) 40 mg/mL injection | | 19 1:05 | | | | | 80 mg 80 mg, Intra-articular, | | PM PST | | | | | ONCE, 07/22/18 at 1315, For 1 | | | | | | | dose, Shake well. Not for IV | | | | | | | use., | | | | | | + +-------+ +-------+---+---+ +---+---+ | | | +---+---+ documented in this encounter"
--- OUTSIDE RECORDS SUMMARY | ~2019-11-22 | XMS | Encounter Summary ---
Demographics + + + | Address | [address] | | | [place] [address] | + + + | Home Phone | | + + + | Preferred Language | Unknown | + + + | Marital Status | | + + + | Voodoo Affiliation | PRE | + + + | Race | White | + + + | Ethnic Group | Not or | + + + Author + + + | Author | [facility] | + + + | Organization | [facility] | + + + | Address | Unknown | + + + | Phone | Unavailable | + + + Support + + + + + | Name | Relationship | Address | Phone | + + + + + | Ricarda Johnson | ECON | [address] | | | | | [place] | | | | | [address] | | + + + + + Care Team Providers + +------+ + | Care Unix Developer Name | Role | Phone | + +------+ + | Hay Greco MD | PCP | | + +------+ + Encounter Details +--------+ + + + + | Date | Type | Department | Care Team | Description | +--------+ + + + + | 05/14/ | Hospital | Dermatopathology | | | | 2011 | Encounter | [address] | | | | | | Mailcode: [id number] | | | | | | [facility] | | | | | | and Healing, | | | | | | Building , | | | | | | Floor [place], [place] | | | | | | [address] | | | | | | [phone] | | | +--------+ + + + [...] + +---------+ + + | | Take by mouth. | | 0 | | | | ASPIRIN/ACETAMINOPHE | | | | | | | N/CAFFEINE (EXCEDRIN | | | | | | | MIGRAINE ORAL) | | | | | | + + + +---------+ + + | dicloxacillin 500 | Take 1 Cap by mouth | 120 Cap | 3 | 10/24/19 | | | mg Oral Capsule | four times daily. | | | 12 | | + + + +---------+ + + | GLUC NASH/CHONDRO NASH | Take by mouth once | | 0 | 08/24/19 | | | A/VIT C/MN | daily. | | | 11 | | | (GLUCOSAMINE | | | | | | | CHONDROITIN MAXSTR | | | | | | | ORAL) | | | | | | + + + +---------+ + + | multivitamin Oral | Take 1 Cap by mouth | | 0 | | | | Capsule | once daily. | | | | | + + + +---------+ + + | [place]-3 Fatty | Take by mouth. | | 0 | | | | Acids-Vitamin E | | | | | | | (FISH OIL) 1,000 mg | | | | | | | Oral Capsule | | | | | | + + + +---------+ + + | oxyCODONE, | Take 1-3 Tabs by | 100 Tab | 0 | 11/03/19 | | | immediate release, 5 | mouth every three | | | 12 | | | mg Oral Tablet | hours as needed. | | | | | + + + +---------+ + + documented as of this encounter Plan of Treatment Not on filedocumented as of this encounter Procedures + +--------+ + + + | Procedure Name | Priori | Date/Time | Associated Diagnosis | Comments | | | ty | | | | + +--------+ + + + | DERMATOPATHOLOGY(WET | Routin | 05/14/2012 | | Results for this | | [facility]) | e | | | procedure are in the | | | | | | results section. | + +--------+ + + + documented in this encounter Results DERMATOPATHOLOGY(WET [facility]) (05/14/2012) + + + + + + | Component | Value | Ref Range | Performed | Pathologist | | | | | At | Signature | + + + + + + | DERMATOPATH | SOURCE OF SPECIMEN:A Rt | | [facility] | | | OLOGY(WET | lateral neck, excision | | DERMATOPATH | | | [facility]) | CLINICAL | | OLOGY | | | | DESCRIPTION:Atypical | | | | | | junctional melanocytic | | | | | | proliferation in assoc. | | | | | | w/ excised | | | | | | MIS([id number]). | | | | | | Specimen marked | | | | | | anteriorly. GROSS | | | | | | DESCRIPTION:Received in | | | | | | formalin is a specimen | | | | | | labeled Cosmo Johnson | | | | | | Merritt:A: Specimen is | | | | | | labeled "R lateral neck" | | | | | | and consists of an | | | | | | ellipse of tanskin, | | | | | | [id number]. The specimen | | | | | | is oriented by a suture | | | | | | at one apex, which | | | | | | isdesignated as anterior | | | | | | by the surgeon. With | | | | | | the suture in the | | | | | | 12:00position, the | | | | | | specimen is inked blue | | | | | | from 12:00-3:00-6:00 and | | | | | | green | | | | | | from6:00-9:00-12:00. | | | | | | The tissue is serially | | | | | | sectioned from 12:00 to | | | | | | 6:00 andsubmitted | | | | | | respectively in | | | | | | cassettes A1 | | | | | | | | | | | | A2. MICROSCOPIC | | | | | | DESCRIPTION:There is | | | | | | fibrosis extending | | | | | | throughout the central | | | | | | portion of theexcisional | | | | | | specimen. Overlying and | | | | | | adjacent to the scar in | | | | | | some subtleareas, there | | | | | | is a junctional | | | | | | melanocytic | | | | | | proliferation composed | | | | | | mostly ofsingle | | | | | | melanocytes distributed | | | | | | somewhat irregularly | | | | | | along the basal | | | | | | layer.Most of the | | | | | | melanocytic nuclei are | | | | | | moderately large, some | | | | | | of them | | | | | | arehyperchromatic and | | | | | | most have amphophilic | | | | | | cytoplasm with melanin. 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 | | | | | | NOTE: As with the | | | | | | previous excision | | | | | | ([id number]) the changes | | | | | | remain subtle,though | | | | | | suspicious for MELANOMA | | | | | | IN SITU, which is | | | | | | excised in these | | | | | | sections.In light of the | | | | | | subtly of the changes, | | | | | | close clinical follow up | | | | | | of the areais | | | | | | recommended. | | | | | | KPW:emr/12/24 My | | | | | | electronic signature | | | | | | indicates that I have | | | | | | personally reviewed | | | | | | alldiagnostic slides, | | | | | | the gross and/or | | | | | | microscopic portion of | | | | | | thisreport and | | | | | | formulated the final | | | | | | diagnosis. | | | | | | Rendering Diagnostician: | | | | | | Lior Howe | | | | | | [place] | | | | | | marco Signed 05/20/2012 | | | | | | 10:25AM | | | | + + + + + + + + | Specimen | + + | | + + + + + + + | Performing | Address | City/State/Zipcode | Phone Number | | Organization | | | | + + + + + | [facility] | [id number] | [place] [address] | | | DERMATOPATHOLOGY | [address] | | | + + + + + documented in this encounter Visit Diagnoses Not on filedocumented in this encounter
--- OUTSIDE RECORDS SUMMARY | ~2019-11-22 | XMS | Encounter Summary ---
Demographics + + + | Address | [address] | | | [place] [address] | + + + | Home Phone | | + + + | Preferred Language | Unknown | + + + | Marital Status | | + + + | Sabianism Affiliation | 1077 | + + + | Race | Unknown | + + + | Ethnic Group | Unknown | + + + Author + + + | Author | [facility] | | | and [place] | + + + | Organization | [facility] | | | [...] Team Providers + +------+ + | Care Facsimile Operator Name | Role | Phone | + +------+ + | Hay Greco MD | PCP | | + +------+ + Encounter Details +--------+ + + + + | Date | Type | Department | Care Team | Description | +--------+ + + + + | 02/07/ | Orders Only | [facility] | Kemal Damian MD | DDD (degenerative | | 2017 | | NEUROSURGERY [address] | [address] | disc disease), | | | | [address] | [place] [address] | lumbar (Primary Dx); | | | | [place] | [phone] | Facet arthropathy, | | | | [address] | | lumbar | | | | [phone] | | | +--------+ + + + [...] of this encounter Results XR Lumbar Spine 4 + Vw (02/07/2017 1:36 PM PDT) + + | Specimen | + + | | + + + + + | Narrative | Performed At | + + + | EXAM:XR LUMBAR SPINE 4 + VW CLINICAL HISTORY: new patient | [facility] | | COMPARISON: December 14 and July 30, 2014. FINDINGS: Frontal and | [facility] | | lateral views. 5 nonrib-bearing lumbar-type vertebral bodies. | [facility] | | Mild levoconvex scoliosis. Prior posterior spinous process plate | - IMAGING | | at L2-L3, unchanged. Posterior and interbody fusion changes at | | | L2-L4. Intact hardware. In place interbody graft markers. | | | Suggestion of osseous fusion at the intervening disc spaces. | | | Progressive endplate sclerosis at L4-L5. Slight retrolisthesis of | | | L4. Mild disc narrowing at L5-S1. Retrolisthesis of L1 and T12 | | | with associated increased disc narrowing. There is some translation | | | at T12 and L1 with flexion and extension. IMPRESSION - Stable | | | intact posterior and interbody fusion changes from L2 through L4. | | | Slightly progressive spondylosis and spondylolisthesis involving | | | T12-L1, L1-L2, and L4-L5. Dictated and Signed by: Shayne Singer | | | MD Mary Lou Electronically signed: 02/07/2017 2:13 PM | | + + + + + | Procedure Note | + + | Reji, Rad Results In - 02/07/2017 2:16 PM PDT EXAM:XR LUMBAR SPINE 4 + VW | | | | CLINICAL HISTORY: new patient | | | | COMPARISON: December 14 and July 30, 2014. | | | | FINDINGS: Frontal and lateral views. 5 nonrib-bearing lumbar-type vertebral | | bodies. Mild levoconvex scoliosis. Prior posterior spinous process plate at | | L2-L3, unchanged. Posterior and interbody fusion changes at L2-L4. Intact | | hardware. In place interbody graft markers. Suggestion of osseous fusion at | | the intervening disc spaces. Progressive endplate sclerosis at L4-L5. Slight | | retrolisthesis of L4. Mild disc narrowing at L5-S1. Retrolisthesis of L1 and | | T12 with associated increased disc narrowing. There is some translation at T12 | | and L1 with flexion and extension. | | | | IMPRESSION - | | | | Stable intact posterior and interbody fusion changes from L2 through L4. | | | | Slightly progressive spondylosis and spondylolisthesis involving T12-L1, L1-L2, | | and L4-L5. | | | | Dictated and Signed by: Shayne Barreto MD | | Electronically signed: 02/07/2017 2:13 PM | + + + + + + + | Performing | Address | City/State/Zipcode | Phone Number | | Organization | | | | + + + + + | [facility] | [address] | [place] | [phone] | | [facility] | | [address] | | | - IMAGING | | | | + + + + + documented in this encounter Visit Diagnoses + + | Diagnosis | + + | DDD (degenerative disc disease), lumbar - Primary Degeneration of lumbar or | | lumbosacral intervertebral disc | + + | Facet arthropathy, lumbar Lumbosacral spondylosis without myelopathy | + + documented in this encounter"
--- OUTSIDE RECORDS SUMMARY | ~2019-11-22 | XMS | Encounter Summary ---
Demographics + + + | Address | [address] | | | [place] [address] | + + + | Home Phone | | + + + | Preferred Language | Unknown | + + + | Marital Status | | + + + | Mandaen Affiliation | PRE | + + + | Race | White | + + + | Ethnic Group | Not or | + + + Author + + + | Author | [facility] | + + + | Organization | [facility] | + + + | Address | Unknown | + + + | Phone | Unavailable | + + + Support + + + + + | Name | Relationship | Address | Phone | + + + + + | Ricarda Johnsno | ECON | [address] | | | | | [place] | | | | | [address] | | + + + + + Care Team Providers + +------+ + | Care Special Education Resource Room Teacher Name | Role | Phone | + +------+ + | Hay Greco MD | PCP | | + +------+ + Encounter Details +--------+ + + + + | Date | Type | Department | Care Team | Description | +--------+ + + + + | 08/15/ | Abstract | Infectious | Rona Kulkarni | | | 2011 | | [facility] | JUNI Pace [address] | | | | | [address] | [address] | | | | | [address] [facility] | [place], [place] | | | | | Brian, [facility] floor | [address] | | | | | [place], [place] | [phone] | | | | | [address] | | | | | | [phone] | | | +--------+ + + + [...] + | CBC, WITH | Routin | 08/15/2011 | | Results for this | | DIFFERENTIAL | e | 9:26 AM | | procedure are in the | | | | PST | | results section. | + +--------+ + + + | COMPLETE METABOLIC | Routin | 08/15/2011 | | Results for this | | SET | e | 9:26 AM | | procedure are in the | | (NA,K,CL,CO2,BUN,CRE | | PST | | results section. | | AT,GLUC,CA,AST,ALT,B | | | | | | HUMERA TOTAL,ALK | | | | | | PHOS,ALB,PROT TOTAL) | | | | | + +--------+ + + + documented in this encounter Results COMPLETE METABOLIC SET (NA,K,CL,CO2,BUN,CREAT,GLUC,CA,AST,ALT,BILI TOTAL,ALK PHOS,ALB,PROT TOTAL) (08/15/2011 9:26 AM PST) + +-------+ + + + | Component | Value | Ref Range | Performed | Pathologist | | | | | At | Signature | + +-------+ + + + | GLUCOSE, | 88 | 65 - 110 mg/dL | NON [facility] | | | PLASMA | | | LAB | | | (LAB) | | | | | + +-------+ + + + | BUN, PLASMA | 26 | mg/dL | NON [facility] | | | (LAB) | | | LAB | | + +-------+ + + + | CREATININE | 1.17 | mg/dL | NON [facility] | | | PLASMA | | | LAB | | | (LAB) | | | | | + +-------+ + + + | TOTAL | 7.5 | g/dL | NON [facility] | | | PROTEIN, | | | LAB | | | PLASMA | | | | | | (LAB) | | | | | + +-------+ + + + | ALBUMIN, | 3.9 | g/dL | NON [facility] | | | PLASMA | | | LAB | | | (LAB) | | | | | + +-------+ + + + | CALCIUM, | 9.6 | mg/dL | NON [facility] | | | PLASMA | | | LAB | | | (LAB) | | | | | + +-------+ + + + | BILIRUBIN | 0.8 | Transcutaneous | NON [facility] | | | TOTAL | | Bilirubinometer | LAB | | + +-------+ + + + | ALK PHOS | 209 | U/L | NON [facility] | | | | | | LAB | | + +-------+ + + + | AST(SGOT) | 18 | U/L | NON [facility] | | | | | | LAB | | + +-------+ + + + | SODIUM, | 134 | mmol/L | NON [facility] | | | PLASMA | | | LAB | | | (LAB) | | | | | + +-------+ + + + | POTASSIUM, | 4.1 | mmol/L | NON [facility] | | | PLASMA | | | LAB | | | (LAB) | | | | | + +-------+ + + + | CHLORIDE, | 103 | mmol/L | NON [facility] | | | PLASMA | | | LAB | | | (LAB) | | | | | + +-------+ + + + | TOTAL CO2, | 18 | mmol/L | NON [facility] | | | PLASMA | | | LAB | | | (LAB) | | | | | + +-------+ + + + | ALT (SGPT) | 26 | U/L | NON [facility] | | | | | | LAB | | + +-------+ + + + | C-REACTIVE | 12 | mg/dl | NON [facility] | | [...] + +---------+ + + CBC, WITH DIFFERENTIAL (08/15/2011 9:26 AM PST) + +---------+ + + + | Component | Value | Ref Range | Performed | Pathologist | | | | | At | Signature | + +---------+ + + + | WHITE CELL | 6.3 | K/cu mm | NON [facility] | | | COUNT | | | LAB | | + +---------+ + + + | RED CELL | 2.91 | M/cu mm | NON [facility] | | | COUNT | | | LAB | | + +---------+ + + + | HEMOGLOBIN | 9.7 (A) | 13.5 - 17.5 | NON [facility] | | | | | g/dL | LAB | | + +---------+ + + + | HEMATOCRIT | 27.5 | % | NON [facility] | | | | | | LAB | | + +---------+ + + + | MCV | 94.5 | fL | NON [facility] | | | | | | LAB | | + +---------+ + + + | MCH | 33 | pg | NON [facility] | | | | | | LAB | | + +---------+ + + + | MCHC | 35 | g/dL | NON [facility] | | | | | | LAB | | + +---------+ + + + | PLATELET | 613 | K/cu mm | NON [facility] | | | COUNT | | | LAB | | + +---------+ + + + | NEUTROPHIL | 80.4 | % | NON [facility] | | | % | | | LAB | | + +---------+ + + + | LYMPHOCYTE | 7.4 | % | NON [facility] | | | % | | | LAB | | + +---------+ + + + | MONOCYTE % | 8.9 | % | NON [facility] | | | | | | LAB | | + +---------+ + + + | EOS % | 2.9 | % | NON [facility] | | | | | | LAB | | + +---------+ + + + | BASO % | 0.4 | % | NON [facility] | | | | | | LAB | | + +---------+ + + + | RDW | 12.8 | % | NON [facility] | | | | | | LAB | | + +---------+ + + + | MPV | | fL | NON [facility] | | | | | | LAB | | + +---------+ + + + | NEUTROPHIL | | K/cu mm | NON [facility] | | | # | | | LAB | | + +---------+ + + + | LYMPHOCYTE | | K/cu mm | NON [facility] | | | # | | | LAB | | + +---------+ + + + | MONOCYTE # | | K/cu mm | NON [facility] | | | | | | LAB | | + +---------+ + + + | EOS # | | K/cu mm | NON [facility] | | | | | | LAB | | + +---------+ + + + | BASO # | | | NON [facility] | | | | | | LAB | | + +---------+ + + + | ESR (SED | 126 | | NON [facility] | | | RATE) | | | LAB | | + +---------+ + + + + + | Specimen [...]
--- OUTSIDE RECORDS SUMMARY | ~2019-11-22 | XMS | Encounter Summary ---
Demographics + + + | Address | [address] | | | [place] [address] | + + + | Home Phone | | + + + | Preferred Language | Unknown | + + + | Marital Status | | + + + | Lutheran Affiliation | 1077 | + + + | Race | Unknown | + + + | Ethnic Group | Unknown | + + + Author + + + | Author | [facility] | | | and [place] | + + + | Organization | [facility] | | | and [...] Team Providers + +------+ + | Care Topography Technician Name | Role | Phone | [...] + | 06/09/ | Office | [facility] | Brian Noble, | Failed back syndrome | | 2019 | Visit | NEUROSURGERY [address] | PA-C [address] | (Primary Dx); S/P | | | | [address] | [address] [place] | lumbar fusion | | | | [place], [place] | [place] [address] | | | | | [address] | [phone] | | | | | [phone] | | | +--------+---------+ + + + [...] Relaxation videos practice techniques to quiet pain. https://[email or web address]/our-services/p/bawbnluhvq-rmnflzffas-cpdn/qrxthbwiib-njww-etp lkit/ourbkph-yif-zwjxwbnw-toolkit/kediyo-pmei-zclfwdzgb/ Surgical Pain Handout: https://www.sridhar.mo.gov/Portals/1/Documents/9220/795661-GnmfndmFdbaocuvzvci-CqdmjtmdIbqu.pdf If you have any questions or concerns, [...] 10:00 AM PST Brian Noble PA-C [address] [facility], [address] [place], [place] [address] FAX: [phone] NEUROSURGERY HISTORY AND PHYSICAL EXAMINATION CHIEF COMPLAINT: Chief Complaint Patient presents with Pre-op Exam Spinal Cord Stimulator Placement on 06/18/19 HISTORY OF PRESENT ILLNESS: Cosmo Jhonson is a 74 y.o. male who presents [...] Laterality: N/A; Surgeon: Kemal Damian MD; Location: [facility] MAIN OR LUMBAR LAMINECTOMY Dr. Tavarez LUMBAR SPINE SURGERY N/A 06/19/2017 Procedure: L1-2 LAIF w/ Lateral Plating; Surgeon: Kemal Damian MD; Location: [facility] MAIN OR MI NJX DX/THER SBST EPIDURAL/SUBRACH CERV/THORACIC N/A 03/25/2019 Procedure: SCS; Surgeon: Pj Riggs MD; Location: [facility] INTERVENTIONAL RADIOLOGY SMALL INTESTINE SURGERY 2011 Rectal [...] has no apparent deficits with short or retirement memory. CRANIAL NERVES: II: Acuity is intact. [...]
--- OUTSIDE RECORDS SUMMARY | ~2019-11-22 | XMS | Encounter Summary ---
Demographics + + + | Address | [address] | | | [place] [address] | + + + | Home Phone | | + + + | Preferred Language | Unknown | + + + | Marital Status | | + + + | Lutheran Affiliation | PRE | + + + [...] + | Ricarda Johnson | ECON | [address] | | | | | [place] | | | | | [address] | | + + + + + Care Team Providers + +------+ + | Care Contract Administrator Name | Role | Phone | [...] | [facility] | JUNI Pace [address] | | | | | [address] | [address] | | | | | [address] [facility] | [place], [place] | | | | | Brian, [facility] floor | [address] | | | | | [place], [place] | [phone] | | | | | [address] | | | | | | [phone] | | | +--------+ + + + [...]
--- OUTSIDE RECORDS SUMMARY | ~2019-11-22 | XMS | Encounter Summary ---
Demographics + + + | Address | [address] | | | [place] [address] | + + + | Home Phone | | + + + | Preferred Language | Unknown | + + + | Marital Status | | + + + | Confucianist Affiliation | PRE | + + + [...] + | Ricarda Johnson | ECON | [address] | | | | | [place] | | | | | [address] | | + + + + + Care Team Providers + +------+ + | Care First Aid Trainer Name | Role | Phone | + [...] | +--------+ + + + + | 08/08/ | Flight Engineer Performance Qualified | Infectious | Rona Kulkarni | | | 2011 | | [facility] | JUNI Pace [address] | | | | | [address] | [address] | | | | | [address] [facility] | [place], [place] | | | | | Pavilion, 3rd floor | [address] | | | | | [place], [place] | [phone] | | | | | [address] | | | | | | [phone] | | | +--------+ + + + [...]
--- OUTSIDE RECORDS SUMMARY | ~2019-11-22 | XMS | Encounter Summary ---
Demographics + + + | Address | [address] | | | [place] [address] | + + + | Home Phone | | + + + | Preferred Language | Unknown | + + + | Marital Status | | + + + | Congregational Affiliation | 1077 | + + + [...] Team Providers + +------+ + | Care Reporting Coordinator Name | Role | Phone | + +------+ + | Aldo Frank DO | PCP | | + +------+ + Encounter Details +--------+ + + + + | Date | Type | Department | Care Team | Description | +--------+ + + + + | 11/13/ | Orders Only | [facility] | Barbara Marie, | | | 2018 | | [facility] | MD [address] | | | | | [address] | [place] [address] | | | | | [place], [place] | [phone] | | | | | [address] | | | | | | [phone] | | | +--------+ + + + [...] + +--------+ + + + | XR SHOULDER RIGHT 2 | Routin | 11/13/2017 | | Results for this | | + VW | e | 10:02 AM | | procedure are in the | | | | PDT | | results section. | + +--------+ + + + documented in this encounter Results XR Shoulder Right 2 + Vw (11/13/2017 10:02 AM PDT) + + | Specimen | + + | | + + + + + | Narrative | Performed At | + + + | History: This is a 72 y.o. year old male. Diagnosis for Order | | | ICD-10-CM 1. Primary osteoarthritis of right shoulder M19.011 X-ray | | | shoulder right complete 2+v . Findings: 3 views right shoulder. | | | AP, Grashey, scapular Y. Comparison views: 08/07/2017. The patient is | | | status post right reversed total shoulder arthroplasty. The | | | prosthesis is in good position, without evidence of failure or | | | loosening. There is no evidence of fracture, or dislocation. Bony | | | mineralization is normal. Visualized lung gill are clear.. | | | Impression: Status post right reversed total shoulder arthroplasty, | | | with good radiographic outcome.. BARBARA MARIE MD 11/13/2017 | | | BARBARA MARIE MD has created this entry using [employer] | | | Voice Recognition software and Meetup macros. The entry has been | | | reviewed and there may still exist sound alike word errors. | | + + + + + | Procedure Note | + + | Reji, Rad Conversion - 03/05/2019 3:46 PM PDT History: This is a 72 y.o. year old | | male. Diagnosis for Order ICD-10-CM1. Primary osteoarthritis of right shoulder M19.011 | | X-ray shoulder rightcomplete 2+v. Findings: 3 views right shoulder. AP, Grashey, | | scapular Y. Comparisonviews: 08/07/2017. The patient is status post right reversed total | | shoulderarthroplasty. The prosthesis is in good position, without evidence offailure or | | loosening. There is no evidence of fracture, or dislocation.Bony mineralization is | | normal. Visualized lung gill are clear.. Impression: Status post right reversed total | | shoulder arthroplasty, withgood radiographic outcome.. BARBARA MARIE MD11/13/2017 | | BARBARA MARIE MD has created this entry using T[employer]us TechnologyRecognition | | software and Meetup macros. The entry has been reviewed andthere may still exist | | sound alike word errors. | | | |Impression: Status post right reversed total shoulder arthroplasty, with | |good radiographic outcome.. | | | | | |BARBARA MARIE MD | |11/13/2017 | | | |BARBARA MARIE MD has created this entry using Mailana Voice | |Recognition software and Proviation. The entry has been reviewed and | |there may still exist sound alike word errors. | | | + + documented in this encounter Visit Diagnoses Not on filedocumented in this encounter"
--- OUTSIDE RECORDS SUMMARY | ~2019-11-22 | XMS | Encounter Summary ---
Demographics + + + | Address | [address] | | | [place] [address] | + + + | Home Phone | | + + + | Preferred Language | Unknown | + + + | Marital Status | | + + + | Anabaptism Affiliation | 1077 | + + + | Race | Unknown | + + + | Ethnic Group | Unknown | + + + Author + + + | Author | [facility] | | | and [place] | + + + | Organization | [facility] | | | [...] Team Providers + +------+ + | Care Fly Rail Operator Name | Role | Phone | + +------+ + | Hay Greco MD | PCP | | + +------+ + Reason for Visit +---------+ + | Reason | Comments | +---------+ + | Therapy | | +---------+ + Encounter Details +--------+ + + + + | Date | Type | Department | Care Team | Description | +--------+ + + + + | 08/22/ | Telephone | [facility] | Kemal Damian MD | Therapy | | 2018 | | NEUROSURGERY [address] | [address] | | | | | [address] | [place] [address] | | | | | [place] | [phone] | | | | | [address] | | | | | | [phone] | | | +--------+ + + + [...]
--- OUTSIDE RECORDS SUMMARY | ~2019-11-22 | XMS | Encounter Summary ---
Demographics + + + | Address | [address] | | | [place] [address] | + + + | Home Phone | | + + + | Preferred Language | Unknown | + + + | Marital Status | | + + + | Restoration Affiliation | 1077 | + + + | Race | Unknown | + + + | Ethnic Group | Unknown | + + + Author + + + | Author | [facility] | | | and [place] | + + + | Organization | [facility] | | [...] Team Providers + +------+ + | Care Boiler Technician Name | Role | Phone | [...] [address] | | | | | [place], [place] | [place] [address] | | | | | [address] | [phone] | | | | | [phone] | | | +--------+ + + + [...]
--- OUTSIDE RECORDS SUMMARY | ~2019-11-22 | XMS | Encounter Summary ---
Demographics + + + | Address | [address] | | | [place] [address] | + + + | Home Phone | | + + + | Preferred Language | Unknown | + + + | Marital Status | | + + + | Voodoo Affiliation | 1077 | + + + | Race | Unknown | + + + | Ethnic Group | Unknown | + + + Author + + + | Author | [facility] | | | and [place] | + + + | Organization | [facility] | | | [...] Team Providers + +------+ + | Care Data Warehouse Manager Name | Role | Phone | + +------+ + | Aldo Frank DO | PCP | | + +------+ + Reason for Referral Diagnostic/Screening (Routine) +--------+--------+ + + + + | Status | Reason | Specialty | Diagnoses / | Referred By | Referred To | | | | | Procedures | Contact | Contact | +--------+--------+ + + + + | Closed | | Radiology | Diagnoses | | [facility] | | | | | Failed back | [place], | [address] | | | | | surgical | Pj Singer MD | [place], | | | | | syndrome | [address] | [place] | | | | | S/P lumbar | [place] | [address] | | | | | fusion | [place] | Phone: | | | | | Procedures | [address] | [phone] | | | | | MRI Thoracic | Phone: | Fax: | | | | | Spine wo | [phone] | [phone] | | | | | Contrast | Fax: | | | | | | | [phone] | | +--------+--------+ + + + + Evaluate & Treat (Routine) +--------+ + + + + + | Status | Reason | Specialty | Diagnoses / | Referred By | Referred To | | | | | Procedures | Contact | Contact | +--------+ + + + + + | Closed | Specialty | Orthopedic | Diagnoses | | [place], | | | Services | Surgery | Failed back | [place], | Rina S DO | | | Required | | surgical | Pj Singer MD | [address] | | | | | syndrome | [address] | [place] | | | | | S/P lumbar | [place] | [place], [place] | | | | | fusion | [place], [place] | [address] | | | | | | [address] | Phone: | | | | | | Phone: | [phone] | | | | | | [phone] | Fax: | | | | | | Fax: | [phone] | | | | | | [phone] | | +--------+ + + + + + Reason for Visit + + + | Reason | Comments | + + + | Follow-up | SCS lead removal | + + + Follow Up (Routine) + + + + + + + | Status | Reason | Specialty | Diagnoses / | Referred By | Referred To | | | | | Procedures | Contact | Contact | + + + + + + + | Authorized | Specialty | Physical | Diagnoses | Monika, | [place], | | | Services | Medicine and | S/P lumbar | DO Aldo | Pj Singer MD | | | Required | Rehabilitatio | fusion | [address] | [address] | | | | n | 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 | [address] | [place] | | | | | lumbar | [place], | [address] Phone: | | | | | region | [place] | [phone] | | | | | Facet | [address] | Fax: | | | | | arthropathy, | Phone: | [phone] | | | | | lumbar | [phone] | | | | | | Lumbar | Fax: | | | | | | radicular | [phone] | | | | | | pain | | | + + + + + + + Encounter Details +--------+---------+ + + + | Date | Type | Department | Care Team | Description | +--------+---------+ + + + | 04/01/ | Office | [facility] [place] | Pj Riggs | S/P lumbar fusion | | 2019 | Visit | PHYSIATRY [address] | TMD [address] | (Primary Dx); Failed | | | | [address] | [place] | back surgical | | | | [place] | [address] | syndrome | | | | [address] | | | | | | [phone] | | | +--------+---------+ + + + [...] + + + | Blood Pressure | 136/72 | 04/01/2019 9:51 AM | | | | | PDT | | + + + + + | Pulse | 68 | 04/01/2019 9:51 AM | | | | | PDT [...] Weight | 84.8 kg (187 lb) | 04/01/2019 9:51 AM | | | | | PDT | | + + + + + | Height | 175.3 cm (5' 9") | 04/01/2019 9:51 AM | | | | | PDT | | + + + + + | Body Mass Index | 27.62 | 04/01/2019 9:51 AM | | | | | PDT [...] documented as of this encounter Progress Notes Pj Riggs MD - 04/01/2019 10:00 AM PDT . Pj Riggs MD [address] [place] [address], [address] [place], [place] [id number] FAX: CHIEF COMPLAINT: Chief Complaint Patient presents with Follow-up SCS lead removal HISTORY OF PRESENT ILLNESS: Cosmo Johnson is a 73 y.o. male being seen today for spin al cord stimulator removal and discussion of recent SCS trial. He has been seen on several occasions in our office for the complaint of low back pain with radiation into legs and diagnosis of failed back syndrome. The patient has a history of maya or lumbar fusion but unfortunately continued to have significant discomfort. Other more con servative treatments have failed and therefore he was determined to be a candidate for a tri al of the spinal cord stimulator. The trial stimulator leads were placed a week ago without incident and he has now completed the trial. CURRENT MEDICATIONS: Current Outpatient Medications Medication Sig Dispense Refill acetaminophen (TYLENOL) 325 mg tablet Take 650 mg by mouth 3 times daily. Prn pain amLODIPine (NORVASC) 5 mg tablet 0 cephalexin (KEFLEX) 500 mg capsule Take 1 capsule by mouth 4 times daily. 40 capsule 0 fish oil 1,000 mg capsule Take 1,000 mg by mouth 3 times daily. hydroCHLOROthiazide 25 mg tablet Take 1 tablet by mouth Daily. 0 Red Yeast Rice 600 MG CAPS Take 1,200 mg by mouth Daily. No current facility-administered medications for this visit. ALLERGIES: Allergies Allergen Reactions Povidone Iodine Hives and Rash "skin blackwell" Chlorhexidine Gluconate Rash and Other (See Comments) Redness Lovastatin Other (See Comments) Myalgias Zetia [Ezetimibe] Other (See Comments) Reaction not specified in outside medical records PHYSICAL EXAMINATION: Blood pressure 136/72, pulse 68, height 1.753 m (5' 9"), weight 84.8 kg (187 lb). Body mass index is 27.62 kg/m. RADIOGRAPHIC REVIEW: The patient's imaging was reviewed [...] the L4-L5 level on the left. ASSESSMENT: Encounter Diagnoses Name Primary? Failed back surgical syndrome S/P lumbar fusion Yes PLAN: 1. Cosmo Johnson presented today to discuss the recent spinal cord stimulator trial. He reports overall very positive results. This morning he is reporting over 80% relief and he states that before the trial the mornings were often his worst time of day. Overall duri ng the trial he reports at least 60% relief of his symptoms. When asked if he feels it was a positive trial and if he wishes to move forward with a permanent implant he stated unequiv ocally that he feels the trial was very successful and he does wish to move forward with the permanent implant. He will be referred to Dr. José Luis Vilchis and Dr. Rina Fan for this procedure. 2. To help with surgical planning I did order a new MRI of the thoracic spine so that will be available for their review. 3. The trial leads were removed today without difficulty. There were no signs of infectio n at the puncture sites. He will continue to monitor for any drainage or redness and will n otify our office with any issues. The areas were cleaned and bandaged. 4. The patient may follow-up with me on an as-needed basis. ELECTRONICALLY SIGNED BY: Pj Riggs MD documented in this encounter Plan of Treatment + + +--------+ + + | Name | Type | Priori | Associated Diagnoses | Order Schedule | | | | ty | | | + + +--------+ + + | Ambulatory referral | Outpatient | Routin | Failed back | Ordered: 04/02/2019 | | to Orthopedic | Referral | e | surgical syndrome | | | Surgery | | | S/P lumbar fusion | | + + +--------+ + + documented as of this encounter Results MRI Thoracic Spine wo Contrast (05/04/2019 12:18 PM PDT) + + | Specimen | + + | | + + + + + | Impressions | Performed At | + + + | Multilevel degenerative changes of thoracic spine with no | [facility] | | significant central stenosis. Mild neural foraminal canal stenoses | | | are at multiple levels. Dictated and Signed by: Keven Suarez MD | | | Electronically signed: 05/04/2019 1:41 PM | | + + + + + + | Narrative | Performed At | + + + | MRI THORACIC SPINE WO CONTRAST 05/04/2019 11:54 AM HISTORY: | [facility] | | Failed back syndrome. Chronic back pain, s/p lumbar fusion. Evaluating | | | thoracic spine in preparation for permanent spinal cord stimulator | | | implant.. COMPARISON: Thoracolumbar spine x-ray 03/25/2019. | | | PROTOCOL: Sagittal T2, sagittal T1, sagittal STIR, axial T2. | | | FINDINGS: Replanting Machine Crewman images of the cervical spine demonstrate mild | | | spondylosis. Minimal anterolistheses noted of C3 over C4 and C4 over | | | C5. Minimal retrolistheses are present of C5 over C6 and C6 over C7. | | | Moderate central stenoses are at multiple levels. There is mild | | | spondylosis of the thoracic spine. Mild wedging or present of T3, T4, | | | and T11 that appear to be physiologic. There is mild retrolisthesis | | | of T12 over L1. Severe disc narrowing is at T12-L1 with Modic | | | type I changes. Multilevel mild to moderate disc narrowing are | | | present at other levels. There is diffuse disc desiccation. | | | Imaged spinal cord shows normal signal with no evidence for | | | myelomalacia or mass lesions. Small posterior disc herniations | | | are seen at multiple levels of the thoracic spine with no significant | | | central stenosis. Mild neural foraminal canal stenoses are at | | | multiple levels. Metallic hardware are visualized of the bilateral | | | shoulder regions. There are cysts with high T2 signal involving the | | | bilateral kidneys. | | + + + + + | Procedure Note | + + | Reji, Rad Results In - 05/04/2019 1:44 PM PDT MRI THORACIC SPINE WO CONTRAST | | 05/04/2019 11:54 AM HISTORY: Failed back syndrome. Chronic back pain, s/p lumbar fusion. | | Evaluatingthoracic spine in preparation for permanent spinal cord stimulator | | implant..COMPARISON: Thoracolumbar spine x-ray 03/25/2019.PROTOCOL: Sagittal T2, sagittal | | T1, sagittal STIR, axial T2.FINDINGS:Replanting Machine Crewman images of the cervical spine demonstrate | | mild spondylosis. Minimalanterolistheses noted of C3 over C4 and C4 over C5. Minimal | | retrolistheses arepresent of C5 over C6 and C6 over C7. Moderate central stenoses are at | | multiplelevels.There is mild spondylosis of the thoracic spine. Mild wedging or present | | of T3,T4, and T11 that appear to be physiologic. There is mild retrolisthesis of | | [id number] L1.Severe disc narrowing is at T12-L1 with Modic type I changes. Multilevel mild | | tomoderate disc narrowing are present at other levels. There is diffuse | | discdesiccation. Imaged spinal cord shows normal signal with no evidence for | | myelomalacia or masslesions.Small posterior disc herniations are seen at multiple levels | | of the thoracicspine with no significant central stenosis. Mild neural foraminal canal | | stenosesare at multiple levels.Metallic hardware are visualized of the bilateral | | shoulder regions. There arecysts with high T2 signal involving the bilateral | | kidneys.IMPRESSION: Multilevel degenerative changes of thoracic spine with no | | significant centralstenosis. Mild neural foraminal canal stenoses are at multiple | | levels.Dictated and Signed by: Keven Suarez MD Electronically signed: 05/04/2019 1:41 | | PM | |moderate disc narrowing are present at other levels. There is diffuse disc | |desiccation. | | | |Imaged spinal cord shows normal signal with no evidence for myelomalacia or mass | |lesions. | | | |Small posterior disc herniations are seen at multiple levels of the thoracic | |spine with no significant central stenosis. Mild neural foraminal canal stenoses | |are at multiple levels. | | | |Metallic hardware are visualized of the bilateral shoulder regions. There are | |cysts with high T2 signal involving the bilateral kidneys. | | | |IMPRESSION: | |Multilevel degenerative changes of thoracic spine with no significant central | |stenosis. Mild neural foraminal canal stenoses are at multiple levels. | | | |Dictated and Signed by: Keven Suarez MD | | Electronically signed: 05/04/2019 1:41 PM | + + + +---------+ + [...] Primary Arthrodesis status | + + | Failed back surgical syndrome Other unspecified back disorder | + + documented in this encounter
--- OUTSIDE RECORDS SUMMARY | ~2019-11-22 | XMS | Encounter Summary ---
Demographics + + + | Address | [address] | | | [place] [address] | + + + | Home Phone | | + + + | Preferred Language | Unknown | + + + | Marital Status | | + + + | Buddhism Affiliation | 1077 | + + + | Race | Unknown | + + + | Ethnic Group | Unknown | + + + Author + + + | Author | [facility] | | | and [place] | + + + | Organization | [facility] | | [...] Team Providers + +------+ + | Care Technician Name | Role | Phone | + +------+ + | Hay Greco MD | PCP | | + +------+ + Reason for Visit + + + | Reason | Comments | + + + | Post-op Problem | back/ leg pain | + + + Encounter Details +--------+ + + + + | Date | Type | Department | Care Team | Description | +--------+ + + + + | 08/29/ | Telephone | [facility] [place] | Kemal Damian MD | Post-op Problem | | 2018 | | NEUROSURGERY [address] | [address] | (back/ leg pain) | | | | [address] | [place] [address] | | | | | [place] | [phone] | | | | | [address] | | | | | | [phone] | | | +--------+ + + + [...]
--- OUTSIDE RECORDS SUMMARY | ~2019-11-22 | XMS | Encounter Summary ---
Demographics + + + | Address | [address] | | | [place] [address] | + + + | Home Phone | | + + + | Preferred Language | Unknown | + + + | Marital Status | | + + + | Worship Affiliation | 1077 | + + + | Race | Unknown | + + + | Ethnic Group | Unknown | + + + Author + + + | Author | [facility] | | | and [place] | + + + | Organization | [facility] | | | [...] Team Providers + +------+ + | Care Hogshead Hooper Name | Role | Phone | + +------+ + | Hay Greco MD | PCP | | + +------+ + Encounter Details +--------+ + + + + | Date | Type | Department | Care Team | Description | +--------+ + + + + | 06/18/ | Orders Only | [facility] [place] | Kemal Damian MD | Status post lumbar | | 2017 | | NEUROSURGERY [address] | [address] | spinal fusion | | | | [address] | [place] [address] | (Primary Dx) | | | | [place] | [phone] | | | | | [address] | | | | | | [phone] | | | +--------+ + + + [...] COMPARISON: Lumbar spine radiographs dating to February 07 | | | 2016 FINDINGS: Frontal and lateral views of the [...] | | | Dictated and Signed by: Shayen Barreto MD | | Electronically signed: 07/22/2017 [...] + | Status post lumbar spinal fusion - Primary Arthrodesis status | + + documented in this encounter"
--- OUTSIDE RECORDS SUMMARY | ~2019-11-22 | XMS | Encounter Summary ---
Demographics + + + | Address | [address] | | | [place] [address] | + + + | Home Phone | | + + + | Preferred Language | Unknown | + + + | Marital Status | | + + + | Mormonism Affiliation | 1077 | + + + [...] Team Providers + +------+ + | Care Property Management Coordinator Name | Role | Phone | + +------+ + | Hay Greco MD | PCP | | + +------+ + Encounter Details +--------+ + + + + | Date | Type | Department | Care Team | Description | +--------+ + + + + | 10/14/ | Hospital | [facility] | Kemal Damian MD | | | 2013 | Encounter | MED CTR LAB[facility]ATORY | [address] | | | | | [address] | [place] [address] | | | | | [place] | [phone] | | | | | [address] | | | | | | [phone] | | | +--------+ + + + [...]
--- OUTSIDE RECORDS SUMMARY | ~2019-11-22 | XMS | Encounter Summary ---
Demographics + + + | Address | [address] | | | [place] [address] | + + + | Home Phone | | + + + | Preferred Language | Unknown | + + + | Marital Status | | + + + | Scientologist Affiliation | 1077 | + + + | Race | Unknown | + + + | Ethnic Group | Unknown | + + + Author + + + | Author | [facility] | | | and [place] | + + + | Organization | [facility] | | [...] Team Providers + +------+ + | Care Finishing Machine Operator Automatic Name | Role | Phone | + +------+ + | Aldo Frank DO | PCP | | + +------+ + Reason for Visit + + + | Reason | Comments | + + + | Results, Imaging | Lumbar MRI | + + + Encounter Details +--------+ + + + + | Date | Type | Department | Care Team | Description | +--------+ + + + + | 05/05/ | Telephone | [facility] | David Brower, | Results, Imaging | | 2018 | | PHYSIATRY [address] | PA-C [address] | (Lumbar MRI ) | | | | [address] | [address] [place] | | | | | [place] | [place] [address] | | | | | [address] | [phone] | | | | | [phone] | | | +--------+ + + + [...]
--- OUTSIDE RECORDS SUMMARY | ~2019-11-22 | XMS | Encounter Summary ---
Demographics + + + | Address | [address] | | | [place] [address] | + + + | Home Phone | | + + + | Preferred Language | Unknown | + + + | Marital Status | | + + + | Buddhist Affiliation | PRE | + + + | Race | White | + + + | Ethnic Group | Not or | + + + Author + + + | Author | [facility] | + + + | Organization | [facility] | + + + | Address | Unknown | + + + | Phone | Unavailable | + + + Support + + + + + | Name | Relationship | Address | Phone | + + + + + | Ricarda Johnson | ECON | [address] | | | | | [place] | | | | | [address] | | + + + + + Care Team Providers + +------+ + | Care Cytology Manager Name | Role | Phone | + +------+ + | Hay Greco MD | PCP | | + +------+ + Encounter Details +--------+ + + + + | Date | Type | Department | Care Team | Description | +--------+ + + + + | 05/12/ | Hospital | LAB SURGICAL | | | | 2009 | Encounter | PATHOLOGY [address] | | | | | | [address] | | | | | | [place], [place] | | | | | | [address] | | | +--------+ + + + [...]
--- OUTSIDE RECORDS SUMMARY | ~2019-11-22 | XMS | Encounter Summary ---
Demographics + + + | Address | [address] | | | [place] [address] | + + + | Home Phone [...] Team Providers + +------+ + | Care Milk Powder Grinder Name | Role | Phone | + +------+ + | Hay Greco MD | PCP | | + +------+ + Encounter Details +--------+ + + + + | Date | Type | Department | Care Team | Description | +--------+ + + + + | 06/04/ | [facility] | [facility] | Kemal Damian MD | Spinal stenosis of | | 2017 | Encounter | MED CTR XRAY [address] | [address] | lumbar region, | | | | [place] | [place], [place] [address] | unspecified whether | | | | [place] [address] | [phone] | neurogenic | | | | [phone] | | claudication | | | | | Eric Tran, | present; S/P lumbar | | | | | [address] [place] | fusion; DDD | | | | | [place], [place] | (degenerative disc | | | | | [address] | disease), lumbar; | | | | [...] XR CHEST PA AND | Routin | 06/04/2017 | Spinal stenosis of | Results for this | | LATERAL | e | 2:30 PM | lumbar region, | procedure are [...] acute findings. Dictated and Signed by: Keven | | | MD Erick Electronically signed: 06/04/2017 [...]
--- OUTSIDE RECORDS SUMMARY | ~2019-11-22 | XMS | Encounter Summary ---
Demographics + + + | Address | [address] | | | [place] [address] | + + + | Home Phone | | + + + | Preferred Language | Unknown | + + + | Marital Status | | + + + | Samaritan Affiliation | 1077 | + + + [...] Team Providers + +------+ + | Care Video Game Repair Technician Name | Role | Phone | + +------+ + | Hay Greco MD | PCP | | + +------+ + Encounter Details +--------+ + + + + | Date | Type | Department | Care Team | Description | +--------+ + + + + | 03/24/ | Orders Only | [facility] [place] | Kemal Damian MD | Status post lumbar | | 2018 | | NEUROSURGERY [address] | [address] | spinal fusion | | | | [address] | [place] [address] | (Primary Dx) | | | | [place] | [phone] | | | | | [address] | | | | | | [phone] | | | +--------+ + + + [...] Procedure Note | + + | Reji, Dwayne Results In - 03/25/2018 4:03 PM PDT [...] and right lateral | | fusion from [id number] L2.Dictated and Signed by: Keven Suarez MD [...]
--- OUTSIDE RECORDS SUMMARY | ~2019-11-22 | XMS | Encounter Summary ---
Demographics + + + | Address | [address] | | | [place] [address] | + + + | Home Phone | | + + + | Preferred Language | Unknown | + + + | Marital Status | | + + + | Mu-Ism Affiliation | 1077 | + + + [...] Team Providers + +------+ + | Care Motorcycle Repairer Name | Role | Phone | + +------+ + | Aldo Frank DO | PCP | | + +------+ + Encounter Details +--------+ + + + + | Date | Type | Department | Care Team | Description | +--------+ + + + + | 03/25/ | Hospital | [facility] | Kemal Damian MD | Status post lumbar | | 2018 | Encounter | MED CTR XRAY [address] | [address] | spinal fusion | | | | [place] [address] | [place] [address] | | | | | [place] [address] | [phone] | | | | | [phone] | | | +--------+ + + + [...] and right lateral | | fusion from [id number] L2.Dictated and Signed by: Keven Suarez MD [...]
--- OUTSIDE RECORDS SUMMARY | ~2019-11-22 | XMS | Encounter Summary ---
Demographics + + + | Address | [address] | | | [place] [address] | + + + | Home Phone | | + + + | Preferred Language | Unknown | + + + | Marital Status | | + + + | Judaism Affiliation | 1077 | + + + | Race | Unknown | + + + | Ethnic Group | Unknown | + + + Author + + + | Author | [facility] | | | and [place] | + + + | Organization | [facility] | | | [...] Team Providers + +------+ + | Care Ball Maker Name | Role | Phone | + +------+ + PCP | Unavailable | + +------+ + Encounter Details +--------+ + + + + | Date | Type | Department | Care Team | Description | +--------+ + + + + | 05/15/ | Hospital | [facility] | | | | 2009 - | Encounter | MED CTR CANCER | | | | | | CENTER [address] | | | | 06/13/ | | [place] | | | | 2009 | | [address] | | | | | | [phone] | | | +--------+ + + + [...]
--- OUTSIDE RECORDS SUMMARY | ~2019-11-22 | XMS | Encounter Summary ---
Demographics + + + | Address | [address] | | | [place] [address] | + + + | Home Phone | | + + + | Preferred Language | Unknown | + + + | Marital Status | | + + + | Holiness Affiliation | PRE | + + + | Race | White | + + + | Ethnic Group | Not or | + + + Author + + + | Author | [facility] | + + + | Organization | [facility] | + + + | Address | Unknown | + + + | Phone | Unavailable | + + + Support + + + + + | Name | Relationship | Address | Phone | + + + + + | Ricarda Johnson | ECON | [address] | | | | | [place] | | | | | [address] | | + + + + + Care Team Providers + +------+ + | Care Member Of Technical Staff Name | Role | Phone | + +------+ + | Hay Greco MD | PCP | | + +------+ + Reason for Visit AUTH/CERT (Routine) +--------+--------+ + + + + | Status | Reason | Specialty | Diagnoses / | Referred By | Referred To | | | | | Procedures | Contact | Contact | +--------+--------+ + + + + | Closed | | | | | | +--------+--------+ + + + + Encounter Details +--------+ + + + + | Date | Type | Department | Care Team | Description | +--------+ + + + + | 10/30/ | Anesthesia | [facility] [address] | Brandon Sanford, | | | 2011 | Event | [address] | [address] | | | | | [facility] | [facility] | | | | | Hospital Admitting | [place], [place] | | | | | Desk Located on the | [address] | | | | | 9th floor | [phone] | | | | | [place], [place] | | | | | | [address] | | | +--------+ + + + + Anesthesia Record + + + + + | Procedure Name | Responsible | Anesthesia Start | Anesthesia Stop Time | | | Anesthesiologist | Time | | + + + + + | OPEN ILEOSTOMY | Brandon Sanford MD | 10/31/11717 | 10/31/11 0932 | | CLOSURE Specimen | | | | | X1(ileostomy-Romeo) | | | | | (Right Abdomen) | | | | + + + + + +----+---+ + + | Da | T | Event | Comment | | te | i | | | | | m | | | | | e | | | +----+---+ + + | 04 | 0 | Eq Check | Anesthesia machine checked Equipment verified | | /1 | 6 | | | | 8/ | 3 | | | | 20 | 7 | | | | 12 | | | | +----+---+ + + | | 0 | | | | | 7 | | | | | 1 | | | | | 4 | | | +----+---+ + + | | 0 | Pt. Check | Prior to anesthesia start, pt. Identified, examined, chart | | | 7 | | reviewed, PARSean held, anesthetic plan made or approved by | | | 1 | | attending anesthesiologist. NPO status confirmed as appropriate | | | 4 | | for procedure Preoperative evaluation: unchanged | +----+---+ + + | | 0 | An Start | | | | 7 | | | | | 1 | | | | | 8 | | | +----+---+ + + | | 0 | Preprocedur | Pt ID confirmed, informed consent obtained, insertion site | | | 7 | e Checklist | marked, equipment available | | | 1 | | | | | 8 | | | +----+---+ + + | | 0 | An Start | | | | 7 | Data | | | | 2 | | | | | 3 | | | +----+---+ + + | | 0 | Abx | | | | 7 | Administere | | | | 3 | d | | | | 1 | | | +----+---+ + + | | 0 | Vitals | Monitors applied Vital signs checked | | | 7 | Checked | | | | 3 | | | | | 5 | | | +----+---+ + + | | 0 | Std. Airway | | | | 7 | Mgt. | | | | 3 | | | | | 6 | | | +----+---+ + + | | 0 | an dank now | | | | 7 | | | | | 4 | | | | | 4 | | | +----+---+ + + | | 0 | Ready | | | | 7 | | | | | 4 | | | | | 8 | | | +----+---+ + + | | 0 | Timeout | | | | 8 | | | | | 0 | | | | | 2 | | | +----+---+ + + | | 0 | Incision | | | | 8 | | | | | 0 | | | | | 3 | | | +----+---+ + + | | 0 | Surgery end | | | | 9 | | | | | 1 | | | | | 4 | | | +----+---+ + + | | 0 | An Extubate | Neuromuscular function Intact. Pharynx suctioned. Patient obeys | | | 9 | | commands. Adequate pulmonary mechanics. | | | 1 | | | | | 7 | | | +----+---+ + + | | 0 | O2 by FM | | | | 9 | | | | | 1 | | | | | 9 | | | +----+---+ + + | | 0 | an stop | | | | 9 | data | | | | 1 | | | | | 9 | | | +----+---+ + + | | 0 | Anesthesia | | | | 9 | End | | | | 3 | | | | | 2 | | | +----+---+ + + +------+ | Meds | +------+ + + + | Name | Total | + + + | midazolam | 2 mg | + + + | lidocaine 2% | 80 mg | + + + | fentaNYL | 150 mcg | + + + | propofol | 120 mg | + + + | rocuronium | 60 mg | + + + | ondansetron | 4 mg | + + + | neostigmine | 3 mg | + + + | glycopyrrolate | 0.6 mg | + + + | ertapenem | 1,000 mg | + + + | LR | 500 mL | + + + + + | Name | + + | Insp Nimesh | + + | Et Nimesh | + + | O2 Flow Rate (Total Liters) | + + | Air Flow rate (L/min) | + + + + | No blood administrations on file. | + + +--------+ + + + | Type | Details | Placement | Removal | +--------+ + + + | RETIRE | 07/26/10; 05/02/17 (Automatic | 07/26/10 0000 by | 05/02/17 1622 by | | D - | cleanup per RA 3006--contact | Luis Armando Jarrett RN | Discontinued After | | Ostomy | admin for questions.); 1622 | | Discharge | | | (Automatic cleanup per RA | | | | | 3006--contact admin for | | | | | questions.); Ileostomy; RUQ | | | +--------+ + + + | RETIRE | 08/08/11; 1400; central; Left; | 08/08/11 1400 by | 10/31/11 0702 by | | D - | Arm; basilic; 4 Fr; 1; no; | Anne Fritz RN | Brandon Sanford | | PICC | saline; no; 4 cm; 10/31/11; 0702 | | | | Line | | | | +--------+ + + + | RETIRE | 10/31/11; 11/01/11; 0900; No; | 10/31/11 0000 by | 11/01/11 0900 by | | D - | urine return; Delgado; 16FR | Pushpa Norwood RN | Kathleen Contreras RN | | Urinar | | | | | y Cath | | | | | | | | | | Placem | | | | | ent | | | | | (Shereen | | | | | & Cath | | | | | Care | | | | | Daily | | | | | and Q | | | | | BM) | | | | +--------+ + + + | RETIRE | 10/31/11; anterior, lateral, | 10/31/11 0000 by | 05/02/17 1622 by | | D - | Right:; 05/02/17 (Automatic | Pushpa Norwood RN | Discontinued After | | Incisi | cleanup per RA 3006--contact | | Discharge | | on | admin for questions.); 1622 | | | | | (Automatic cleanup per RA | | | | | 3006--contact admin for | | | | | questions.) | | | +--------+ + + + | RETIRE | 10/31/11; 11/03/11; No; 14 inch; | 10/31/11 0000 by | 11/03/11 0000 by | | D - | Bessy; Anterior, Right; | Pushpa Norwood RN | Rosadayo Pena, | | Drains | Abdomen | | RN | | | | | | | (wound | | | | | s/surg | | | | | ical) | | | | +--------+ + + + | RETIRE | 10/31/11; 0642; 11/03/11; 0857; | 10/31/11641 by | 11/03/1157 by | | D - | No; 18; Left; Hand | Faith Nolasco RN | Korey Rivero | | Periph | | | BRUNO Sheikh | | eral | | | | | Line | | | | +--------+ + + + documented in this encounter Social History + +-------+ +--------+------+ | Tobacco [...] Diagnoses Not on filedocumented in this encounter Administered Medications + +--------+ + +------+------+ | Medication Order | MAR | Action | Dose | Rate | Site | | | Action | Date | | | | + +--------+ + +------+------+ | ertapenem (aka INVANZ) | Given | 10/31/19 | 1,000 mg | | | | injection INTRAPROCEDURE PRN, | | 12 7:31 | | | | | Starting 10/31/11 at 0731, | | AM PDT | | | | | Until 10/31/11 at 0932 | | | | | | + +--------+ + +------+------+ +---+---+ | | | +---+---+ + +-------+ +--------+---+---+ | fentaNYL citrate (PF) (aka | Given | 10/31/19 | 50 mcg | | | | SUBLIMAZE) injection | | 12 8:56 | | | | | INTRAPROCEDURE PRN, Starting Wed | | AM PDT | | | | | 10/31/11 at 0736, Until Wed | | | | | | | 10/31/11 at 0932, sedation | | | | | | + +-------+ +--------+---+---+ +-------+ +---------+---+---+ | Given | 10/31/19 | 100 mcg | | | | | 12 7:36 | | | | | | AM PDT | | | | +-------+ +---------+---+---+ +---+---+ | | | +---+---+ + +-------+ +--------+---+---+ | glycopyrrolate (aka PAT) | Given | 10/31/19 | 0.6 mg | | | | injection INTRAPROCEDURE PRN, | | 12 9:02 | | | | | Starting 10/31/11 at 0902, | | AM PDT | | | | | Until 10/31/11 at 0932 | | | | | | + +-------+ +--------+---+---+ +---+---+ | | | +---+---+ + + + +----+---+---+ | lactated ringers IV | given by | 10/31/19 | mL | | | | intravenous, INTRAPROCEDURE | | 12 9:27 | | | | | CONTINUOUS PRN, Starting Wed | anesthes | AM PDT | | | | | 10/31/11 at 0730, Until Wed | iology | | | | | | 10/31/11 at 0932 | | | | | | + + + +----+---+---+ + + +----+---+---+ | given by anesthesiology | 10/31/19 | mL | | | | | 12 8:58 | | | | | | AM PDT | | | | + + +----+---+---+ | New Bag | 10/31/19 | mL | | | | | 12 7:18 | | | | | | AM PDT | | | | + + +----+---+---+ +---+---+ | | | +---+---+ + +-------+ +-------+---+---+ | lidocaine (aka XYLOCAINE MPF) | Given | 10/31/19 | 80 mg | | | | 20 mg/mL (2 %) injection | | 12 7:36 | | | | | INTRAPROCEDURE PRN, Starting Wed | | AM PDT | | | | | 10/31/11 at 0736, Until Wed | | | | | | | 10/31/11 at 0932 | | | | | | + +-------+ +-------+---+---+ +---+---+ | | | +---+---+ + +-------+ +------+---+---+ | midazolam (aka VERSED) | Given | 10/31/19 | 2 mg | | | | injection INTRAPROCEDURE PRN, | | 12 7:18 | | | | | Starting 10/31/11 at 0718, | | AM PDT | | | | | Until Sat10/31/11 at 0932, | | | | | | | sedation | | | | | | + +-------+ +------+---+---+ +---+---+ | | | +---+---+ + +-------+ +------+---+---+ | neostigmine (aka PROSTIGMIN) | Given | 10/31/19 | 3 mg | | | | injection intravenous, | | 12 9:02 | | | | | INTRAPROCEDURE PRN, Starting Wed | | AM PDT | | | | | 10/31/11 at 0902, Until Wed | | | | | | | 10/31/11 at 0932 | | | | | | + +-------+ +------+---+---+ +---+---+ | | | +---+---+ + +-------+ +------+---+---+ | ondansetron (aka ZOFRRADHA) | Given | 10/31/19 | 4 mg | | | | injection INTRAPROCEDURE PRN, | | 12 8:55 | | | | | Starting 10/31/11 at 0855, | | AM PDT | | | | | Until Sat10/31/11 at 0932 | | | | | | + +-------+ +------+---+---+ +---+---+ | | | +---+---+ + +-------+ +--------+---+---+ | propofol INTRAPROCEDURE PRN, | Given | 10/31/19 | 120 mg | | | | Starting 10/31/11 at 0737, | | 12 7:37 | | | | | Until Sat10/31/11 at 0932 | | AM PDT | | | | + +-------+ +--------+---+---+ +---+---+ | | | +---+---+ + +-------+ +-------+---+---+ | rocuronium (aka ZEMURON) | Given | 10/31/19 | 20 mg | | | | injection INTRAPROCEDURE PRN, | | 12 8:39 | | | | | Starting Sat10/31/11 at 0738, | | AM PDT | | | | | Until Sat10/31/11 at 0932, | | | | | | | Neuromuscular block | | | | | | + +-------+ +-------+---+---+ +-------+ +-------+---+---+ | Given | 10/31/19 | 40 mg | | | | | 12 7:38 | | | | | | AM PDT | | | | +-------+ +-------+---+---+ +---+---+ | | | +---+---+ documented in this encounter"
--- OUTSIDE RECORDS SUMMARY | ~2019-11-22 | XMS | Encounter Summary ---
Demographics + + + | Address | [address] | | | [place] [address] | + + + | Home Phone [...] Team Providers + +------+ + | Care Quality System Manager Name | Role | Phone | [...] + + | Closed | | | Diagnoses | | | | | | | | | | | | | | Degeneration | | | | | | | of lumbar | | | | | | | or | | | | | | | lumbosacral | | | | | | | intervertebr | | | | | | | al disc | | | | | | | Acquired | | | | | | | spondylolist | | | | | | | hesis | | | | | | | Lumbosacral | | | | | | | spondylosis | | | | | | | without | | | | | | | myelopathy | | | | | | | Thoracic or | | | | | | | lumbosacral | | | | | | | neuritis or | | | | | | | radiculitis, | | | | | | | unspecified | | | | | | | | | | | | | | Degeneration | | | | | | | of lumbar | | | | | | | or | | | | | | | lumbosacral | | | | | | | intervertebr | | | | | | | al disc | | | | | | | | | | | | | | Procedures | | | | | | | LAMINECTOMY | | | | | | | PLIF/TLIF | | | | | | | INSTRUMENTAT | | | | | | | ION | | | +--------+--------+ + + + + Encounter Details +--------+ + + + + | Date | Type | Department | Care Team | Description | +--------+ + + + + | 10/22/ | Hospital | [facility] | Kemal Damian MD | S/P lumbar fusion | | 2014 - | Encounter | [facility] | [address] | (Primary Dx); Rectal | | | | [address] | [place] [address] | cancer (HCC); High | | 10/24/ | | [place] [address] | [phone] | cholesterol; | | 2013 | | [phone] | | Preoperative testing | +--------+ + + + + Social [...] + + + | Blood Pressure | 136/79 | 10/24/2013 7:03 AM | | | | | PDT | | + + + + + | Pulse | 72 | 10/24/2013 7:03 AM | | | | | PDT | | + + + + + | Temperature | 36.8 C (98.2 F) | 10/24/2013 7:03 AM | | | | | PDT | | + + + + + | Respiratory Rate | 18 | 10/24/2013 7:03 AM | | | | | PDT | | + + + + + | Oxygen Saturation | 97% | 10/24/2013 7:03 AM | | | | | PDT | | + + + + + | Inhaled Oxygen | - | - | | | Concentration | | | | + + + + + | Weight | 80.7 kg (178 lb) | 10/22/2013 6:24 AM | | | | | PDT | | + + + + + | Height | 175.3 cm (5' 9") | 10/22/2013 6:24 AM | | | | | PDT | | + + + + + | Body Mass Index | 26.29 | 10/22/2013 6:24 AM | | | | | PDT [...] + + documented as of this encounter Discharge Instructions AttachmentsThe following attachments cannot be sent through Care Everywhere.BACK EXERCISES, LUMBAR (SOMALI)AFTER BACK SURGERY: GOING HOME (SOMALI)CONSTIPATION (ADULT) (SOMALI)docum ented in this encounter Medications at Time of Discharge [...] encounter Progress Notes Kemal Damian MD - 10/24/2013 9:58 AM PDTFormatting of this note might be different from t arturo original. [facility] PROGRESS NOTE Pt. Name/Age/: Cosmo Johnson 68 y.o. 1945 Med. Record Number: [id number] Date of admission: 10/22/2013 Subjective: The patient chart and medications were reviewed in detail and the patient was s een and examined. The patient doing well. No events. Objective: Temp: 36.8 C (98.2 F) BP: 136/79 mmHg Pulse: 72 Resp: 18 SpO2: 97 % on Min/Max Temp past 24 hours:Temp Av.3 C (99.2 F) Min: 36.7 C (98.1 F) Max: 3 8.3 C (100.9 F) Intake/Output Summary (Last 24 hours) at 10/24/13 0958 Last data filed at 10/24/13 0829 Gross per 24 hour Intake 1905 ml Output 3562 ml Net -1657 ml Wt. Admission: Weight: 80.74 kg (178 lb) Wt. Current: Weight: 80.74 kg (178 lb) Exam: General: NAD Abdomen: Soft, ND Neurological: Stable, MAEW Assessment and Plan: S/p fusion Doing well Home today Patient Active Problem List Diagnosis DDD (degenerative disc disease), lumbar Spondylolisthesis of lumbar region Facet arthropathy, lumbar Lumbar radicular pain Spinal stenosis of lumbar region with neurogenic claudication Rectal cancer (HCC) High cholesterol Electronically signed by: Kemal Damian, 10/24/2013 9:58 [facility] Kirk Lamar PA - 10/23/2013 7:28 AM PDT [facility] PROGRESS NOTE Pt. Name/Age/: Cosmo Johnson 68 y.o. 1945 Med. Record Number: [id number] Date of admission: 10/22/2013 Subjective: The patient chart and medications were reviewed in detail and the patient was s een and examined. The patient is doing well. No complaints. Robaxin doing well. Needs po pain meds Objective: Temp: 37.7 C (99.9 F) BP: 131/63 mmHg Pulse: 73 Resp: 16 SpO2: 98 % on Min/Max Temp past 24 hours:Temp Av.7 C (98.1 F) Min: 35.7 C (96.3 F) Max: 3 7.7 C (99.9 F) Intake/Output Summary (Last 24 hours) at 10/23/13 0728 Last data filed at 10/23/13 0612 Gross per 24 hour Intake 2950 ml Output 2979 ml Net -29 ml Wt. Admission: Weight: 80.74 kg (178 lb) Wt. Current: Weight: 80.74 kg (178 lb) Exam: General: Alert /oriented Cardiovascular: RRR Respiratory: Clear Abdomen: Soft/ benign Extremities: Straight. No edema Skin: clear Neurological: Good strength bilateral Assessment and Plan: Sp Lumbar fusion Patient Active Problem List Diagnosis DDD (degenerative disc disease), lumbar Spondylolisthesis of lumbar region Facet arthropathy, lumbar Lumbar radicular pain Spinal stenosis of lumbar region with neurogenic claudication Rectal cancer (HCC) High cholesterol Will start po pain meds. Increase activity. Keep ERIKA in But could be pulled later today . Electronically signed by: Kirk Javier, 10/23/2013 7:28 [facility] Tierra Veliz RN - 10/22/2013 12:15 PM PDTFamily notified of transfer to room. Belonging with pt to room. Tierra Sesay documented in this encoun ter Plan of Treatment + +---------+--------+ + + | Name | Type | Priori | Associated Diagnoses | Order Schedule | | | | ty | | | + +---------+--------+ + + | Basic Metabolic | Lab | Routin | Rectal cancer | Ordered: 10/22/2013 | | Panel | | e | (HCC) High | | | | | | cholesterol | | | | | | Preoperative testing | | + +---------+--------+ + + | CBC with | Lab | Routin | Rectal cancer | Ordered: 10/22/2013 | | Differential | | e | (HCC) High | | | | | | cholesterol | | | | | | Preoperative testing | | + +---------+--------+ + + | ECG 12 lead | ECG | Routin | Rectal cancer | Ordered: 10/22/2013 | | | | e | (HCC) High | | | | | | cholesterol | | | | | | Preoperative testing | | + +---------+--------+ + + | XR Chest PA and | Imaging | Routin | Rectal cancer | Ordered: 10/22/2013 | | Lateral | | e | ([facility]) High | | | | | | cholesterol | | | | | | Preoperative testing | | + +---------+--------+ + + | DME: Walker | DME | Routin | S/P lumbar fusion | DME 1 Time for 1 | | | | e | | Occurrences starting | | | | | | 10/24/2013 until | | | | | | 10/24/2013 | + +---------+--------+ + + documented as of this encounter Procedures + +--------+ + + + | Procedure Name | Priori | Date/Time | Associated Diagnosis | Comments | | | ty | | | | + +--------+ + + + | XR LUMBAR SPINE 2 OR | Routin | 10/23/2013 | | Results for this | | 3 VW | e | 1:18 PM | | procedure are in the | | | | PDT | | results section. | + +--------+ + + + | RESPIRATORY THERAPY | Routin | 10/22/2013 | | | | COMMUNICATION | e | 10:04 PM | | | | | | PDT | | | + +--------+ + + + | FL C ARM SPINE | Routin | 10/22/2013 | | Results for this | | | e | 10:58 AM | | procedure are in the | | | | PDT | | results section. | + +--------+ + + + | LAMINECTOMY | | 10/22/2013 | Degeneration of | | | PLIF/TLIF | | 7:26 AM | lumbar or | | | INSTRUMENTATION | | PDT | lumbosacral | | | | | | intervertebral disc | | | | | | Acquired | | | | | | spondylolisthesis | | | | | | Lumbosacral | | | | | | spondylosis without | | | | | | myelopathy Thoracic | | | | | | or lumbosacral | | | | | | neuritis or | | | | | | radiculitis, | | | | | | unspecified | | + +--------+ + + + +---+--------+ | | | | | Specia | | | l | | | Needs | | | CAROLYN | | | (NUVAS | | | MARGARITA): | | | PRECPE | | | T, | | | COROEN | | | T | | | TLIFC- | | | ARM, | | | DRILL, | | | | | | MICROS | | | COPE, | | | METRX, | | | | | | PRECEP | | | T, | | | COROEN | | | T | | | TLIF, | | | OSTEOC | | | EL, | | | GRAFTO | | | N, | | | JACKSO | | | N AXIS | | | | | | FRAME; | | | NO | | | IOBAN* | | | *; | | | CHLORA | | | PREP | | | ONLYES | | | TIMATE | | | D: 3.5 | | | HOURS | +---+--------+ + +--------+ + + + | CBC WITH | Routin | 10/14/2013 | Rectal cancer | Results for this | | DIFFERENTIAL | e | 11:45 AM | (HCC) High | procedure are in the | | | | PDT | cholesterol | results section. | | | | | Preoperative testing | | + +--------+ + + + | BASIC METABOLIC | Routin | 10/14/2013 | Rectal cancer | Results for this | | PANEL | e | 11:45 AM | (HCC) High | procedure are in the | | | | PDT | cholesterol | results section. | | | | | Preoperative testing | | + +--------+ + + + documented in this encounter Results XR Lumbar Spine 2 or 3 Vw (10/23/2013 1:18 PM PDT) + + | Specimen | + + | | + + + + + | Narrative | Performed At | + + + | XR LUMBAR SPINE 2 OR 3 VW. 10/23/2013 1:18 PM HISTORY: post op | [facility] | | . COMPARISON: 06/09/2013 FINDINGS: Interval placement of | LAB | | posterior spinal fusion hardware at the level of L2 through L4 is | | | noted, with disc spacers at the intervening levels, without evidence | | | of hardware complication or subsidence. A back brace is in place. | | | A drainage catheter is seen in the soft tissues posterior to the | | | levels of surgical fusion. There is levoconvex curvature of the | | | lumbar spine centered at L2. There is approximately 7 mm | | | retrolisthesis of T12 on L1, stable. There is approximately 5 mm | | | retrolisthesis of L1 on L2, stable. There is approximately 2 mm | | | anterolisthesis of L2 on L3, significantly decreased as compared with | | | the prior study. There is approximately 2 mm anterolisthesis of L3 | | | on L4, not substantially changed as compared to the prior study on | | | the upright neutral view. There is approximately 2 mm retrolisthesis | | | of L4 on L5. Vertebral body heights are maintained. There is | | | decreased disc height at T12-L1 and L4-5, and posteriorly at L5-S1. | | | IMPRESSION - New posterior spinal fusion hardware at the levels | | | of L2-L4 without evidence of hardware complication, and with | | | improved vertebral body alignment as compared with the prior study. | | | Dictated and Signed by: Johan Calderon MD Electronically | | | signed: 10/23/2013 4:11 PM | | + + + + + | Procedure Note | + + | Reji, Rad Results In - 10/23/2013 4:14 PM PDT XR LUMBAR SPINE 2 OR 3 VW. 10/23/2013 | | 1:18 PMHISTORY: post op . COMPARISON: 06/09/2013FINDINGS:Interval placement of | | posterior spinal fusion hardware at the level of [id number] L4 is noted, with disc | | spacers at the intervening levels, withoutevidence of hardware complication or | | subsidence. A back brace is in place. A drainage catheter is seen in the soft | | tissuesposterior to the levels of surgical fusion.There is levoconvex curvature of the | | lumbar spine centered at L2.There is approximately 7 mm retrolisthesis of T12 on L1, | | stable.There is approximately 5 mm retrolisthesis of L1 on L2, stable.There is | | approximately 2 mm anterolisthesis of L2 on L3, significantly decreasedas compared with | | the prior study.There is approximately 2 mm anterolisthesis of L3 on L4, not | | substantiallychanged as compared to the prior study on the upright neutral view.There is | | approximately 2 mm retrolisthesis of L4 on L5.Vertebral body heights are maintained. | | There is decreased disc height at [id number] L4-5, and posteriorly at L5-S1.IMPRESSION | | -New posterior spinal fusion hardware at the levels of L2-L4 without evidence ofhardware | | complication, and with improved vertebral body alignment as comparedwith the prior | | study.Dictated and Signed by: Johan Calderon MD Electronically signed: 10/23/2013 4:11 | | PM | |There is approximately 2 mm anterolisthesis of L3 on L4, not substantially | |changed as compared to the prior study on the upright neutral view. | |There is approximately 2 mm retrolisthesis of L4 on L5. | |Vertebral body heights are maintained. There is decreased disc height at T12-L1 | |and L4-5, and posteriorly at L5-S1. | | | | | |IMPRESSION - | |New posterior spinal fusion hardware at the levels of L2-L4 without evidence of | |hardware complication, and with improved vertebral body alignment as compared | |with the prior study. | | | |Dictated and Signed by: Johan Calderon MD | | Electronically signed: 10/23/2013 4:11 PM | + + + +---------+ + + | Performing | Address | City[facility] | Phone Number | | Organization | | | | + +---------+ + + | [facility] | | | [phone] | + +---------+ + + | [facility] | | | [phone] | + +---------+ + + FL C-Arm Spine (10/22/2013 10:58 AM PDT) + + | Specimen | + + | | + + + + + | Narrative | Performed At | + + + | No Radiologist interpretation, please see Chart Review. | [facility] | + + + + + | Procedure Note | + + | 10/23/2013 3:04 PM PDT No Radiologist interpretation, please see Chart Review. | + + + +---------+ + + | Performing | Address | City/State/Zipcode | Phone Number | | Organization | | | | + +---------+ + + | [facility] | | | | + +---------+ + + ECG 12 lead (10/16/2013 8:03 AM PDT) + + + | Narrative | Performed At | + + + | Alexander Philip MD 10/16/2013 8:03 Adult ECG Report | | | Name: Cosmo Johnson Age: 68 y.o. Gender: male 10/14/13 at | | | 11:20 Narrative Interpretation: Normal sinus rhythm. First degree | | | AV block. | | + + + + + | Procedure Note | + + | Alexander Philip MD - 10/16/2013 8:03 AM PDT Adult ECG Report | | | | Name: Cosmo Johnson | | Age: 68 y.o. | | Gender: male | | | | 10/14/13 at 11:20 | | Narrative Interpretation: Normal sinus rhythm. First degree AV block. | + + CBC with Differential (10/14/2013 11:45 AM PDT) + + + + + + | Component | Value | Ref Range | Performed | Pathologist | | | | | At | Signature | + + + + + + | WBC | 5.2 | 4.0 - 11.0 K/uL | [facility] | | | | | [facility] | | | | | | [facility] | | | | | | [facility] - | | | | | | LABORATORY | | + + + + + + | RBC | 4.20 (L) | 4.30 - 5.70 | [facility] | | | | | M/uL | [facility] | | | | | | [facility] | | | | | | [facility] - | | | | | | LABORATORY | | + + + + + + | Hemoglobin | 13.4 (L) | 13.5 - 18.0 | [facility] | | | | | g/dL | [facility] | | | | | | [facility] | | | | | | [facility] - | | | | | | LABORATORY | | + + + + + + | Hematocrit | 39.0 (L) | 40.0 - 51.0 % | [facility] | | | | | | [facility] | | | | | | [facility] | | | | | | [facility] - | | | | | | LABORATORY | | + + + + + + | MCV | 92.9 | 83.0 - 101.0 fL | [facility] | | | | | | [facility] | | | | | | [facility] | | | | | | [facility] - | | | | | | LABORATORY | | + + + + + + | MCH | 31.8 | 28.0 - 35.0 pg | [facility] | | | | | | [facility] | | | | | | [facility] | | | | | | [facility] - | | | | | | LABORATORY | | + + + + + + | MCHC | 34.3 | 32.0 - 36.0 | [facility] | | | | | g/dL | [facility] | | | | | | [facility] | | | | | | [facility] - | | | | | | LABORATORY | | + + + + + + | RDW-CV | 13.7 | <15.0 % | [facility] | | | | | | [facility] | | | | | | [facility] | | | | | | [facility] - | | | | | | LABORATORY | | + + + + + + | Platelet | 166 | 140 - 440 K/uL | [facility] | | | Count | | | [facility] | | | | | | [facility] | | | | | | [facility] - | | | | | | LABORATORY | | + + + + + + | MPV | 8.0 | fL | [facility] | | | | | | [facility] | | | | | | [facility] | | | | | | [facility] - | | | | | | LABORATORY | | + + + + + + | % | 78.4 | 45.0 - 82.0 % | [facility] | | | Neutrophils | | | [facility] | | | | | | [facility] | | | | | | [facility] - | | | | | | LABORATORY | | + + + + + + | % | 12.0 (L) | 20.0 - 45.0 % | [facility] | | | Lymphocytes | | | [facility] | | | | | | [facility] | | | | | | [facility] - | | | | | | LABORATORY | | + + + + + + | % Monocytes | 6.8 | 4.0 - 12.0 % | [facility] | | | | | | [facility] | | | | | | [facility] | | | | | | [facility] - | | | | | | LABORATORY | | + + + + + + | % | 1.7 | 0.0 - 5.0 % | [facility] [...] + + + + | Absolute | 4.00 | 1.80 - 8.50 | [facility] | | | Neutrophils | | K/uL | [facility] | | | | | | [facility] | | | | | | C[facility] - | | | | | | LABORATORY | | + + + + + + | Absolute | 0.60 | 0.60 - 3.20 | [facility] | [...] | Absolute | 0.10 | 0.00 - 0.40 | [facility] | [...] + | [facility] | [address] | [place] | [phone] | | [facility] | | [address] | | | - LABORATORY | | | | + + + + + | [facility] | [address] | [place], [place] | | | [facility] | | [address], [facility] | | | - LABORATORY | | | | + + + + + Basic Metabolic Panel (10/14/2013 11:45 AM PDT) + + + + + + | Component | Value | Ref Range | Performed | Pathologist | | | | | At | Signature | + + + + + + | Na | 141 | 136 - 149 | [facility] | | | | | mmol/L | [facility] | | | | | | [facility]ICAL | | | | | | CENTER - | | | | | | LABORATORY | | + + + + + + | K | 4.3 | 3.5 - 5.1 | [facility] | | | | | mmol/L | [facility] | | | | | | [facility] | | | | | | CENTER - | | | | | | LABORATORY | | + + + + + + | Cl | 108 | 98 - 109 mmol/L | [facility] | | | | | | [facility] | | | | | | [facility]ICAL | | | | | | C[facility] - | | | | | | LABORATORY | | + + + + + + | CO2 | 29 | 24 - 31 mmol/L | [facility] | | | | | | [facility] | | | | | | [facility]ICAL | | | | | | CENTER - | | | | | | LABORATORY | | + + + + + + | Anion Gap | 4 (L) | 6 - 17 mmol/L | [facility] | | | | | | [facility] | | | | | | [facility] | | | | | | CENTER - | | | | | | LABORATORY | | + + + + + + | Glucose | 85 | 70 - 109 mg/dL | [facility] | | | | | | [facility] | | | | | | [facility]ICAL | | | | | | CENTER - | | | | | | LABORATORY | | + + + + + + | BUN | 20 (H) | 7 - 18 mg/dL | [facility] | | | | | [facility] | | | | | | MEDICAL | | | | | | CENTER - | | | | | | LABORATORY | | + + + + + + | Creatinine | 1.43 (H) | 0.60 - 1.30 | [facility] | | | | | mg/dL | [facility] | | | | | | MEDICAL | | | | | | CENTER - | | | | | | LABORATORY | | + + + + + + | eGFR if not | 49 (L)Comment: | >=60 | [facility] | | | | GLOMERULAR FILTRATION | mL/min/1.73m2 | [facility] | | | MOZAMBICAN | RATE,ESTIMATED | | MEDICAL | | | | mL/min/1.03z3Sknx than | | CENTER - | | [...] + + + + | Calcium | 9.6 | 8.3 - 10.5 | [facility] [facility] | | | | | mg/dL | [facility] | | | | | | MEDICAL | | | | | | CENTER - | | | | | | LABORATORY | | + + + + + + | BUN/Creatin | 14.0 | | [facility] | | | ine Ratio | | | [facility] | | [...] | [facility] | [address] | [place] | [phone] | | [facility] | | [address] | | | - LABORATORY | | | | + + + + + | [facility] | [address] | [place], [place] | | | [facility] | | [address], [facility] | | | - LABORATORY | | | | + + + + + documented in this encounter Visit Diagnoses + + | Diagnosis | + + | S/P lumbar fusion - Primary Arthrodesis status | + + | Rectal cancer (HCC) Malignant neoplasm of rectum | + + | High cholesterol Pure hypercholesterolemia | + + | Preoperative testing Preoperative examination, unspecified | + + documented in this encounter Administered Medications + +---------+ +------+------+------+ | Medication Order | MAR | Action | Dose | Rate | Site | | | Action | Date | | | | + +---------+ +------+------+------+ | cefazolin in NS (ANCEF) IVPB 2 | New Bag | 10/23/19 | 2 g | | | | g 2 g, Intravenous, Administer | | 14 11:01 | | | | | over 30 Minutes, EVERY 8 HOURS (3 | | PM PDT | | | | | times per day), First dose on | | | | | | | [facility] 10/22/13 at 1600, For 2 doses, | | | | | | | Start 8 hours after previous | | | | | | | dose, Post-op/Phase II | | | | | | + +---------+ +------+------+------+ +---------+ +-----+---+---+ | New Bag | 10/23/19 | 2 g | | | | | 14 4:47 | | | | | | PM PDT | | | | +---------+ +-----+---+---+ +---+---+ | | | +---+---+ + +-------+ +--------+---+---+ | docusate sodium (COLACE) | Given | 10/25/19 | 100 mg | | | | capsule 100 mg 100 mg, Oral, 2 | | 14 9:51 | | | | | TIMES DAILY, First dose on Sat | | AM PDT | | | | | 10/22/13 at 1300, Hold for loose | | | | | | | stools, Post-op/Phase II | | | | | | + +-------+ +--------+---+---+ +-------+ +--------+---+---+ | Given | 10/24/19 | 100 mg | | | | | 14 11:27 | | | | | | PM PDT | | | | +-------+ +--------+---+---+ | Given | 10/24/19 | 100 mg | | | | | 14 8:46 | | | | | | AM PDT | | | | +-------+ +--------+---+---+ +---+---+ | | | +---+---+ + +-------+ +--------+---+---+ | fentaNYL injection 25-50 mcg | Given | 10/23/19 | 25 mcg | | | | 25-50 mcg, Intravenous, EVERY 5 | | 14 12:02 | | | | | MIN PRN, Pain, Starting Josefa | | PM PDT | | | | | 10/22/13 at 1110, Maximum total | | | | | | | dose 250 mcg. PACU IV Narcotic | | | | | | | Priority: Only use fentanyl for | | | | | | | immediate post-op pain (one dose) | | | | | | | or breakthrough pain when any | | | | | | | other IV narcotics ordered have | | | | | | | been ineffective (if ordered). | | | | | | | If both morphine and | | | | | | | hydromorphone are ordered, use | | | | | | | morphine first, and use | | | | | | | hydromporphone if morphine | | | | | | | ineffective., Recovery/Phase I | | | | | | + +-------+ +--------+---+---+ +-------+ +--------+---+---+ | Given | 10/23/19 | 25 mcg | | | | | 14 11:49 | | | | | | AM PDT | | | | +-------+ +--------+---+---+ | Given | 10/23/19 | 50 mcg | | | | | 14 11:35 | | | | | | AM PDT | | | | +-------+ +--------+---+---+ +---+---+ | | | +---+---+ + +-------+ +---------+---+---+ | HYDROcodone-acetaminophen | Given | 10/25/19 | 2 | | | | (NORCO) 7.5-325 mg per tablet 1- | | 14 9:51 | tablets | | | | tablet 1-2 tablet, Oral, EVERY | | AM PDT | | | | | 4 HOURS PRN, Pain, Starting Fri | | | | | | | 10/23/13 at 0726, Maximum | | | | | | | acetaminophen is 4000 mg/day from | | | | | | | all sources, | | | | | | + +-------+ +---------+---+---+ +-------+ + +---+---+ | Given | 10/25/19 | 1 tablet | | | | | 14 5:19 | | | | | | AM PDT | | | | +-------+ + +---+---+ | Given | 10/25/19 | 1 tablet | | | | | 14 2:45 | | | | | | AM PDT | | | | +-------+ + +---+---+ +---+---+ | | | +---+---+ + +-------+ +--------+---+---+ | HYDROmorphone (DILAUDID) | Given | 10/23/19 | 0.2 mg | | | | injection 0.2-0.5 mg 0.2-0.5 mg, | | 14 11:58 | | | | | Intravenous, EVERY 5 MIN PRN, | | AM PDT | | | | | Pain, Starting Josefa 10/22/13 at | | | | | | | 1110, Maximum total dose 4 mg. | | | | | | | PACU IV Narcotic Priority: Only | | | | | | | use fentanyl for immediate | | | | | | | post-op pain (one dose) or | | | | | | | breakthrough pain when any other | | | | | | | IV narcotics ordered have been | | | | | | | ineffective (if ordered). If | | | | | | | both morphine and hydromorphone | | | | | | | are ordered, use morphine first, | | | | | | | and use hydromporphone if | | | | | | | morphine ineffective., | | | | | | | Recovery/Phase I | | | | | | + +-------+ +--------+---+---+ +-------+ +--------+---+---+ | Given | 10/23/19 | 0.2 mg | | | | | 14 11:46 | | | | | | AM PDT | | | | +-------+ +--------+---+---+ | Given | 10/23/19 | 0.4 mg | | | | | 14 11:38 | | | | | | AM PDT | | | | +-------+ +--------+---+---+ +---+---+ | | | +---+---+ + +-------+ +--------+---+---+ | lactulose liquid 30 mL 30 mL, | Given | 10/25/19 | 30 mLs | | | | Oral, 2 TIMES DAILY, First dose | | 14 9:51 | | | | | on Josefa 10/22/13 at 1300, | | AM PDT | | | | | Post-op/Phase II | | | | | | + +-------+ +--------+---+---+ +-------+ +--------+---+---+ | Given | 10/24/19 | 30 mLs | | | | | 14 11:27 | | | | | | PM PDT | | | | +-------+ +--------+---+---+ | Given | 10/24/19 | 30 mLs | | | | | 14 8:46 | | | | | | AM PDT | | | | +-------+ +--------+---+---+ +---+---+ | | | +---+---+ + +-------+ +------+---+---+ | LORazepam (ATIVAN) tablet 1-2 | Given | 10/24/19 | 1 mg | | | | mg 1-2 mg, Oral, EVERY 6 HOURS | | 14 1:51 | | | | | PRN, Anxiety, Starting [facility] | | AM PDT | | | | | 10/22/13 at 1235, Post-op/Phase II | | | | | | + +-------+ +------+---+---+ +---+---+ | | | +---+---+ + +-------+ + +---+---+ | methocarbamol (ROBAXIN) tablet | Given | 10/25/19 | 1,500 mg | | | | 1,500 mg 1,500 mg, Oral, EVERY 6 | | 14 5:19 | | | | | HOURS PRN, Muscle spasms, | | AM PDT | | | | | Starting [facility] 10/22/13 at 1235, | | | | | | | Post-op/Phase II | | | | | | + +-------+ + +---+---+ +-------+ + +---+---+ | Given | 10/24/19 | 1,500 mg | | | | | 14 11:29 | | | | | | PM PDT | | | | +-------+ + +---+---+ | Given | 10/24/19 | 1,500 mg | | | | | 14 4:01 | | | | | | AM PDT | | | | +-------+ + +---+---+ +---+---+ | | | +---+---+ + +---------+ +--------+---------+---+ | morphine 5 mg/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 | New Bag | 10/23/19 | 150 mg | 0 mL/hr | | | Intravenous, CONTINUOUS, Starting | | 14 1:32 | | | | | Josefa 10/22/13 at 1300, for adult | | PM PDT | | | | | patients 65 years and older [place] | | | | | | | risk of sleep apnea, | | | | | | | Post-op/Phase II, Loading | | | | | | | Dose(mg): 1, Starting BEAUTY OPERATOR APPRENTICE | | | | | | | Dose(mg): 1, Incremental Increase | | | | | | | BEAUTY OPERATOR APPRENTICE Dose(mg): 1, Maximum BEAUTY OPERATOR APPRENTICE | | | | | | | Dose(mg): 4, Lockout | | | | | | | Interval(min): 10, One Hour | | | | | | | Limit(mg): 7 | | | | | | + +---------+ +--------+---------+---+ +---+---+ | | | +---+---+ + +-------+ +------+---+---+ | morphine injection 2-8 mg 2-8 | Given | 10/23/19 | 4 mg | | | | mg, Intravenous, EVERY 2 HOURS | | 14 1:03 | | | | | PRN, Pain, Starting Josefa 10/22/13 | | PM PDT | | | | | at 1235, Slow IV push, not faster | | | | | | | than 2 mg/minute. If ineffective | | | | | | | or not tolerated, use | | | | | | | hydromorphone IV if ordered, | | | | | | | Post-op/Phase II | | | | | | + +-------+ +------+---+---+ +---+---+ | | | +---+---+ + +-------+ +--------+---+---+ | senna (SENOKOT) tablet 8.6 mg | Given | 10/25/19 | 8.6 mg | | | | 8.6 mg, Oral, 2 TIMES DAILY, | | 14 9:51 | | | | | First dose on Josefa 10/22/13 at | | AM PDT | | | | | 1300, If docusate ineffective or | | | | | | | not ordered, give BID until BM, | | | | | | | then PRN. Hold for loose stools, | | | | | | | Post-op/Phase II | | | | | | + +-------+ +--------+---+---+ +-------+ +--------+---+---+ | Given | 10/24/19 | 8.6 mg | | | | | 14 11:27 | | | | | | PM PDT | | | | +-------+ +--------+---+---+ | Given | 10/24/19 | 8.6 mg | | | | | 14 8:46 | | | | | | AM PDT | | | | +-------+ +--------+---+---+ +---+---+ | | | +---+---+ documented in this encounter
--- OUTSIDE RECORDS SUMMARY | ~2019-11-22 | XMS | Encounter Summary ---
Demographics + + + | Address | [address] | | | [place] [address] | + + + | Home Phone | | + + + | Preferred Language | Unknown | + + + | Marital Status | | + + + | Druze Affiliation | 1077 | + + + | Race | Unknown | + + + | Ethnic Group | Unknown | + + + Author + + + | Author | [facility] | | | and [place] | + + + | Organization | [facility] | | | [...] Team Providers + +------+ + | Care Cycle Liaison Name | Role | Phone | + +------+ + | Hay Greco MD | PCP | | + +------+ + Reason for Visit +--------+ + | Reason | Comments | +--------+ + | Other | presurgical check-in | +--------+ + Encounter Details +--------+ + + + + | Date | Type | Department | Care Team | Description | +--------+ + + + + | 10/20/ | Telephone | [facility] | Kemal Damian MD | Other (presurgical | | 2014 | | NEUROSURGERY [address] | check-in) | | | | [address] [facility] [address] | [place] [address] | | | | | [place] | [phone] | | | | | [address] | | | | | | [phone] | | | +--------+ + + + [...]
--- OUTSIDE RECORDS SUMMARY | ~2019-11-22 | XMS | Encounter Summary ---
Demographics + + + | Address | [address] | | | [place] [address] | + + + | Home Phone | | + + + | Preferred Language | Unknown | + + + | Marital Status | | + + + | Spiritism Affiliation | 1077 | + + + | Race | Unknown | + + + | Ethnic Group | Unknown | + + + Author + + + | Author | [facility] | | | and [place] | + + + | Organization | [facility] | | | [...] Team Providers + +------+ + | Care Health Analyst Name | Role | Phone | + +------+ + PCP | Unavailable | + +------+ + Encounter Details +--------+ + + + + | Date | Type | Department | Care Team | Description | +--------+ + + + + | 05/15/ | Hospital | [facility] | | | | 2009 - | Encounter | MED CTR CANCER | | | | | | CENTER [address] | | | | 06/13/ | | [place] | | | | 2009 | | [address] | | | | | | [phone] | | | +--------+ + + + [...]
--- OUTSIDE RECORDS SUMMARY | ~2019-11-22 | XMS | Encounter Summary ---
Demographics + + + | Address | [address] | | | [place] [address] | + + + | Home Phone | | + + + | Preferred Language | Unknown | + + + | Marital Status | | + + + | Restoration Affiliation | 1077 | + + + | Race | Unknown | + + + | Ethnic Group | Unknown | + + + Author + + + | Author | [facility] | | | and [place] | + + + | Organization | [facility] | | | and [place] | + + + | Address | Unknown | + + + | Phone | Unavailable | + + + Support + + +---------+ + | Name | Relationship | Address | Phone | + + +---------+ + | Ricarda Olivera | ECON | Unknown | | + + +---------+ + Care Team Providers + +------+ + | Care Machine Mover Name | Role | Phone | + +------+ + | Hay Greco MD | PCP | | + +------+ + Encounter Details +--------+ + + + + | Date | Type | Department | Care Team | Description | +--------+ + + + + | 06/09/ | Hospital | [facility] | Kemal Damian MD | Back pain | | 2012 | Encounter | MED CTR XRAY [address] | | | | | [address] | [place] [address] | | | | | [place] [address] | [phone] | | | | | [phone] | | | +--------+ + + + [...] | + + + +---------+--------+ + | IBUPROFEN | Take 2 tablets [...] | + + + +---------+--------+ + | Naproxen Sodium | Take 2 [...] LUMBAR SPINE 2 OR | Routin | 06/09/2013 | Back pain | Results for this | | 3 VW | e | 1:44 PM | | procedure are in the | | | | PST | | results section. | + +--------+ + + + documented in this encounter Results XR Lumbar Spine 2 or 3 Vw (06/09/2013 1:44 PM PST) + + | Specimen | + + | | + + + + + | Narrative | Performed At | + + + | [facility] | [facility] | | Department [address] [place] [address] | [facility] | | [ rep [address]] [ rep [facility] | | st zip] Signed | - IMAGING | | | | | Patient Name: TYLOR OLIVERA | | | Physician: JEFF : 1945 Age: 68 Sex: M Unit | | | #: [id number] Exam Date: 06/09/13 Location: | | | [facility] Report #: [id number] Page: | | | %(RAD)RES..mtdd.print.filter("pg") of %(RAD) | | | RES..mtdd.print.filter("tpg") | | | | | | Accession Number: [id number] | | | LUMBAR SPINE LIMITED, 06/09/2013 CLINICAL HISTORY: | | | BACK PAIN. COMPARISON: [facility] | | | Imaging one view radiograph, 08/11/2010 lumbar spine radiograph with | | | flexion and extension. FINDINGS: 3 lateral views | | | of the lumbar spine. In a neutral position, there is retrolisthesis | | | of L4 on L5. There is anterolisthesis of L2 on L3 and L3 on L4. | | | Retrolisthesis also seen at T12-L1 and L1- 2. There is reduction | | | on forward flexion at L4-5. There is accentuation at L3-4. No | | | abnormal translation at L2-3, L1-2, or T12-L1. No accentuation at | | | L4-5 with extension. There is reduction with extension at L3-4. | | | No change at L2-3. No definite change at T12-L1 and L1-2. There | | | is a posterior spinous process plate at L2-3. | | | IMPRESSION: 1. TRANSLATION IS EVIDENT AT L3-4 AND L4-5 | | | WITH FORWARD FLEXION. Dictated Date/Time: | | | 06/09/2013 13:44 Transcribed Date/Time: 06/09/2013 14:32 | | | Hospital Television Rental Clerk: <<Signature on File>> | | | | | | Shayne Barreto MD06/09/13 [id number] <Electronically signed by Shayne Singer | | | Mary Lou GUNN> Shayne Barreto MD 06/09/13 1344 | | | Hospital Television Rental Clerk: [employer] [id number]/26/13 1432 | | | Kemal Damian MD | | + + + + + + + + | Performing | Address | City/State/Zipcode | Phone Number | | Organization | | | | + + + + + | [address] | [address] | [place] | [phone] | | [facility] | | [address] | | | - IMAGING | | | | + + + + + documented in this encounter Visit Diagnoses + + | Diagnosis | + + | Back pain Backache, unspecified | + + documented in this encounter
--- OUTSIDE RECORDS SUMMARY | ~2019-11-22 | XMS | Encounter Summary ---
Demographics + + + | Address | [address] | | | [place] [address] | + + + | Home Phone | | + + + | Preferred Language | Unknown | + + + | Marital Status | | + + + | Gnosticism Affiliation | PRE | + + + | Race | White | + + + | Ethnic Group | Not or | + + + Author + + + | Author | [facility] | + + + | Organization | [facility] | + + + | Address | Unknown | + + + | Phone | Unavailable | + + + Support + + + + + | Name | Relationship | Address | Phone | + + + + + | Ricarda Johnson | ECON | [address] | | | | | [place] | | | | | [address] | | + + + + + Care Team Providers + +------+ + | Care Claims Counsel Name | Role | Phone | + [...] | rectum (HCC) | Baltazar Chirinos | [place] | | | | | Procedures | [address] | [address], [address] | | | | | CONSULT TO | [place], [place] | floor | | | | | GI | [address] | [facility] [place] | | | | | PROCEDURE | Phone: | [phone] | | | | | UNIT: | [phone] | Phone: | | | | | COLONOSCOPY | Fax: | [phone] | | | | | | [phone] | Fax: | | | | | | | [phone] | +--------+--------+ + + + + Diagnostic [...] | | | | | X-RAY | [place], [place] | for Health | | | | | COLON BARIUM | [address] | and Healing, | | | | | [address] | Phone: | [address], | | | | | [address] | [phone] | 3rd Floor | | | | | | Fax: | [place], [place] | | | | | | [phone] | [address] | | | | | | | Phone: | | | | | | | [phone] | | | | | | | Fax: | | | | | | | [phone] | +--------+--------+ + + + + Reason [...] | | | CONSULT TO | CLINIC [address] | Mailcode: | | | | | COLORECTAL | [address] | [facility] | | [facility] SURGERY | [address]VE | Health and | | | | | | [place], | Healing, | | | | | | [place] [address] | [address] | | | | | | Phone: | [place], [place] | | | | | | [phone] | [address] | | | | | | Fax: | Phone: | | | | | | [phone] | [phone] | | | | | | | Fax: | | | | | | | [phone] | +--------+ + + + + + [...] | | | | Mailcode: Center | [place], [place] | | | | | for Health and | [address] | | | | | [facility] | [phone] | | | | | [place], [place] | | | | | | [address] | | | | | | [phone] | | | +--------+---------+ + + + [...] surveillance by Dr Olivo. Completed adjuvant the [facility] in January. CEA levels have not [...] | | | | | Procedure: A 14-Malian | | | | | | Delgado [...] / | | | | | | aKcy Pete | | | | | | [...]
--- OUTSIDE RECORDS SUMMARY | ~2019-11-22 | XMS | Encounter Summary ---
Demographics + + + | Address | [address] | | | [place] [address] | + + + | Home Phone | | + + + | Preferred Language | Unknown | + + + | Marital Status | | + + + | Worship Affiliation | 1077 | + + + | Race | Unknown | + + + | Ethnic Group | Unknown | + + + Author + + + | Author | [facility] | | | and [place] | + + + | Organization | [facility] | | [...] Team Providers + +------+ + | Care Pool Cleaner Name | Role | Phone | + +------+ + PCP | Unavailable | + +------+ + Encounter Details +--------+ + + + + | Date | Type | Department | Care Team | Description | +--------+ + + + + | 08/04/ | Hospital | [facility] | | | | 2009 | Encounter | MED CTR XRAY [address] | | | | | | [place] | | | | | | [place] [address] | | | | | | [phone] | | | +--------+ + + + [...]
--- OUTSIDE RECORDS SUMMARY | ~2019-11-22 | XMS | Encounter Summary ---
Demographics + + + | Address | [address] | | | [place] [address] | + + + | Home Phone | | + + + | Preferred Language | Unknown | + + + | Marital Status | | + + + | Adventist Affiliation | PRE | + + + | Race | White | + + + | Ethnic Group | Not or | + + + Author + + + | Author | [facility] | + + + | Organization | [facility] | + + + | Address | Unknown | + + + | Phone | Unavailable | + + + Support + + + + + | Name | Relationship | Address | Phone | + + + + + | Ricarda Johnson | ECON | [address] | | | | | [place] | | | | | [address] | | + + + + + Care Team Providers + +------+ + | Care Interactive Media Marketing Director Name | Role | Phone | + +------+ + | Hay Greco MD | PCP | | + +------+ + Encounter Details +--------+ + + + + | Date | Type | Department | Care Team | Description | +--------+ + + + + | 08/20/ | Abstract | [facility] | Edgar [place], | | | 2011 | | [facility] [address] | [address] | | | | | Debbie Mock | [address] | | | | | Mailcode: Center | [place], [place] | | | | | for Health and | [address] | | | | | [facility] [address] | [phone] | | | | | [place], [place] | | | | | | [address] | | | | | | [phone] | | | +--------+ + + + [...]
--- OUTSIDE RECORDS SUMMARY | ~2019-11-22 | XMS | Encounter Summary ---
Demographics + + + | Address | [address] | | | [place] [address] | + + + | Home Phone | | + + + | Preferred Language | Unknown | + + + | Marital Status | | + + + | Protestant Affiliation | PRE | + + + | Race | White | + + + | Ethnic Group | Not or | + + + Author + + + | Author | [facility] | + + + | Organization | [facility] | + + + | Address | Unknown | + + + | Phone | Unavailable | + + + Support + + + + + | Name | Relationship | Address | Phone | + + + + + | Ricarda Johnson | ECON | [address] | | | | | [place] | | | | | [address] | | + + + + + Care Team Providers + +------+ + | Care Fire Equipment Operator Name | Role | Phone | + +------+ + | Hay Greco MD | PCP | | + +------+ + Reason for Visit Office Visit - E/M Services (Routine) +--------+--------+ + + + + | Status | Reason | Specialty | Diagnoses / | Referred By | Referred To | | | | | Procedures | Contact | Contact | +--------+--------+ + + + + | Closed | | Infectious | Diagnoses | Michael, | Shad, | | | | Disease | Bacteremia | MD Steven | Rona Pace, | | | | | | [address] PA-C [address] | | | | | | Taran Ortiz | [address] Chirinos | | | | | | Tre | Diana Toledo | | | | | | [facility] [place] | [place], [place] | | | | | | [address] | [address] | | | | | | Phone: | Phone: | | | | | | [phone] | [phone] | | | | | | Fax: | Fax: | | | | | | [phone] | [phone] | +--------+--------+ + + + + Encounter Details +--------+---------+ + + + | Date | Type | Department | Care Team | Description | +--------+---------+ + + + | 10/29/ | Office | Infectious | Jhon Jackson, | Encounter for | | 2011 | Visit | [facility] | MD [address] | long-term (current) | | | | [address] | [address] | use of antibiotics; | | | | [address] | [place] [address] | [facility] ([facility]) | | | | [address], 3rd floor | [phone] | | | | | [place], [place] | | | | | | [address] | | | | | | [phone] | | | +--------+---------+ + + + [...] + + + | Blood Pressure | 120/78 | 10/30/2011 8:55 AM | | | | | PDT | | + + + + + | Pulse | 72 | 10/30/2011 8:55 AM | | | | | PDT | | + + + + + | Temperature | 36.7 C (98 F) | 10/30/2011 8:55 AM | | | | | PDT | | + + + + + | Respiratory Rate | - | - | | + + + + + | Oxygen Saturation | 99% | 10/30/2011 8:55 AM | | | | | PDT | | + + + + + | Inhaled Oxygen | - | - | | | Concentration | | | | + + + + + | Weight | 81.6 kg (180 lb) | 10/30/2011 8:55 AM | | | | | PDT | | + + + + + | Height | 175.3 cm (5' 9") | 10/30/2011 8:55 AM | | | | | PDT | | + + + + + | Body Mass Index | 26.58 | 10/30/2011 8:55 AM | | | | | PDT | | + + + + + documented in this encounter Progress Notes Jhon Jackson MD - 10/30/2011 9:10 AM PDTFormatting of this note might be different fr om the original. INFECTIOUS DISEASES CLINIC FOLLOW UP Referrring Physician: Steven Rodriguez MD Pulmonary & Critical Care Medicine [address] [place] [phone] Primary Care Physician: [facility] [address] [place] [id number] Mr. Johnson presents to Infectious Diseases Clinic regarding scheduled follow up. History other than "Interim History" below is directly copied from previous ID notes to maintain continuity: Cosmo Johnson is a 66 y.o. male with past medical history significant for chronic he adaches, hyperlipidemia, and stage III rectal carcinoma s/p chemotherapy (completed adjuvant course 01/2011), XRT (last treatment 05/2010), and ileostomy 07/2010 (take down planned for t his spring 2011). The patient also has a history of low back pain with L4-L5 vertebral fusio n (2009). He was pain free until February 2011 when he fell and developed pain over his L glut eal/SI joint area which gradually worsening to the point where he could not walk. On 07/27/19 12 he presented to the ED in [place] and was given IV glucocorticoid and a course of oral prednisone. He got no better and was was readmitted to the OSH on 07/30/2011. He was febrile to 104.5 with rigors, and was found to have MSSA bacteremia and was therefore transferred to [facility] on 08/01/2011. At [facility], no source for the MSSA bacteremia was found. There were no vegetations on Echo. It was thought most likely that he had been bacteremic and secondarily seeded a previous site of sacral ala insufficiency fracture. The patient was treated for infection with IV Nafcilli n, which was tailored to Ceftriaxone 2g IV q24 for ease of outpatient infusion. His fevers r esolved and his back and L hip pain improved. His last positive blood culture occurred on , with subsequent blood cultures demonstrating no growth. A single-lumen groshong PIC C was placed on 08/08/2011. A 6-8 week course of Ceftriaxone was recommended. [facility] was contracted for these services, with his PCP providing weekly labs and PICC dressing changes. The patient was deemed suitable for discharge to home on 08/09/2011. [facility] OPAT foll ow-up was planned in 2-3 weeks time. Relevant Radiology: 06/11/11: MRI Lumbar Spine at [facility] notable for L sacral lesion with contrast enhance ment suspicious for met 06/20/11: CT chest, abd, pelvis w/contrast at [facility] with "no definite metastatic disease" 06/21/11: [facility] PET Scan "geographic left sacral ala FDG hypermetabolism most likely represen ting insufficiency fracture" 06/29/11: Bone Scan at [facility] "intense radiotracer activity in the L sacrum along the L sacroiliac joint from top to bottom in a pattern that suggests a fracture" 06/29/11: MRI pelvis [facility] "abnormal signal intensity and enhancement in the lef t sacrum, left ilium, right ilium, and L5 pedical and L5 vertebral body. The [facility] CT scan al so demonstrates and L1 slightly sclerotic lesion although it was not described. Metastatic d isease should be considered here." 08/06/2011 - CT Abd/pelvis: IMPRESSION: No acute abnormality. Specifically, no bowel obstruc tion or abdominal pelvic abscess. Tiny left pleural effusion and trace left lower quadrant f ree fluid likely reflecting volume overload. Mildly thickened bladder with minimal perivesic al stranding possibly reflecting cystitis. Correlate with urinalysis. 08/07/2011 - CRISTIAN: No vegetations noted Procedure Date and Type: None this admission Culture Data: 08/07/2011 Blood Culture Source..................: Blood, Left Hand Result................... Final: No growth at 5 days. 08/06/2011 Blood Culture Source..................: Blood, Left Hand Result................... Final: No growth at 5 days. 08/05/2011 Blood Culture Source..................: Blood Right Hand Result................... Final: No growth at 5 days. 08/04/2011 Blood Culture Source................: Left Antecubital Gram Stain: Gram positive cocci in clusters Staphylococcus aureus Final ID Please refer to blood culture collected on 08/01/11 at 16:38 for susceptibility. Growth in Aerobic Bottle Final Report 08/02/2011 Blood Culture Source................: Right Foot Gram Stain: Gram positive cocci in clusters Staphylococcus aureus Final ID Please refer to blood culture collected on 08/01/2011 at 1638 for complete susceptibilities. Growth in Anaerobic Bottle Final Report 08/02/2011 Blood Culture Source..................: Left Antecubital Result................... Final: No growth at 5 days. 08/01/2011 Blood Culture Source................: Peripheral Blood Gram Stain: Gram positive cocci in clusters Staphylococcus aureus Final ID Growth in Anaerobic Bottle S. aureus Cefazolin S Clindamycin S Erythromycin R Oxacillin S Tetracycline S Trimeth/Sulfa S Vancomycin S Penicillin R Final Report Mr. Johnson presented 08/31/11 from home. He has been administering IV Ceftriaxone as direc kristopher with no missed doses. He reports no noticeable antibiotic side effect There have been no fevers, chills, or night sweats. The patient reports no difficulties with the PICC line. Mr. Johnson's back pain is much improved since his hospital discharge. He has been walking about and feeling stronger without worsening weakness, numbness, tingling, or shooting pain s. No changes in osteomy output or urinatry function. The patient now presented to clinic 09/21/11 for follow-up. He is doing very well, with the p ain almost entirely gone. No problems with the antibiotics and PICC linI explained that we u sually treat back infections for 6-12 weeks. He is likely functionally somewhat immuno-suppr essed so have suggested 9 weeks for which he is in agreement with. Plan is as follows: 1) Stop IV antibiotics on 10/12/11 ad have his PICC line removed locally 2) Transition at this time to doxycyline 100mg po q 12- will have a prescription faxed to him 3) Follow-up in Oct when he is here to see his GI surgeons Interim History The patient now presents to clinic today for follow-up. He is doing VERY well. No back pa in. he is back on his tractor. No neurological symptoms. We transitioned him to po diclox because he got lip blisters with the doxycyline There have been no fevers chills. Lab Results Component Value Date ESR 40 10/10/2011 CRP <5 10/10/2011 CK 27* 08/03/2011 CR 1.49 10/10/2011 Current Medications: Current Outpatient Prescriptions Medication Sig ASPIRIN/ACETAMINOPHEN/CAFFEINE (EXCEDRIN MIGRAINE ORAL) Take by mouth. dicloxacillin 500 mg Oral Capsule Take 1 Cap by mouth four times daily. GLUC NASH/CHONDRO NASH A/VIT C/MN (GLUCOSAMINE CHONDROITIN MAXSTR ORAL) Take by mouth once daily. Miscellaneous Medical Supply (BLOOD PRESSURE CUFF) Misc multivitamin Oral Capsule Take 1 Cap by mouth once daily. [place]-3 Fatty Acids-Vitamin E (FISH OIL) 1,000 mg Oral Capsule Take by mouth. Allergies: Doxycycline and Betadine Physical Exam: The patient was sitting comfortably at rest. Looked VERY well PICC line is confirmed as pulled His spine is non-tender to palpation and he is walking well Diagnostic Tests: Lab Results Component Value Date WBC 4.6 10/10/2011 HB 12.4* 10/10/2011 HCT 36.4 10/10/2011 PLT 186 10/10/2011 MCV 95 10/10/2011 RDW 12.9 10/10/2011 Lab Results Component Value Date NA 138 10/10/2011 K 4.9 10/10/2011 CL 107 10/10/2011 BICARB 21 10/10/2011 BUN 25 10/10/2011 CR 1.49 10/10/2011 GLU 98 10/10/2011 CA 9.4 10/10/2011 AST 17 10/10/2011 ALT 11 10/10/2011 AP 87 10/10/2011 TBILI 0.5 10/10/2011 TP 6.8 10/10/2011 ALB 4.4 10/10/2011 Assessment/Plan he is doing well. I explained that this is the small possibility that the infection could recur. I reviewed t he symptoms that would indicate a recurrence in the infection, and to contact the Infectious Disease/OPAT office if the patient thinks this is happening. I explained the fact that his MRI will look like infection for at least one year, and there fore no point in a follow-up scan unless new symptoms, and even then the scans will need to be interpreted with caution he will stop the dicloxacillin on January 13 2012. I have said q 8 hours is fine It is recommended that Mr. Johnson follow up in Infectious Diseases Clinic as needed I spent 20 minutes evaluating and co-ordinating the care of the patient with the predomina nt time, over 50%, spent in councelling the patient. We had the above discussion. JHON JACKSON MD INFECTIOUS DISEASES [address] [place] [address] Mailcode: L608 [facility] [address] documented in this e ncounter Plan of Treatment Not on filedocumented as of this encounter Visit Diagnoses + + | Diagnosis | + + | Encounter for long-term (current) use of antibiotics | + + | Osteomyelitis (HCC) Unspecified osteomyelitis, site unspecified | + + documented in this encounter
--- OUTSIDE RECORDS SUMMARY | ~2019-11-22 | XMS | Encounter Summary ---
Demographics + + + | Address | [address] | | | [place] [address] | + + + | Home Phone | | + + + | Preferred Language | Unknown | + + + | Marital Status | | + + + | Presybeterian Affiliation | 1077 | + + + | Race | Unknown | + + + | Ethnic Group | Unknown | + + + Author + + + | Author | [facility] | | | and [place] | + + + | Organization | [facility] | | | [...] Team Providers + +------+ + | Care Plant Pathologist Name | Role | Phone | + +------+ + | Hay Greco MD | PCP | | + +------+ + Encounter Details +--------+ + + + + | Date | Type | Department | Care Team | Description | +--------+ + + + + | 06/09/ | Hospital | [facility] | Kemal Damian MD | Back pain | | 2012 | Encounter | MED CTR XRAY [address] | | | | | [place] | [place] [address] | | | | | [place] [address] | [phone] | | | | | [phone] | | | +--------+ + + + [...] Performed At | + + + | [facility] | [place] | | Department [address] [place] [address] | [facility] | | [ rep [address]] [ rep [facility] | | st zip] Signed | - IMAGING | | | | | Patient Name: TYLOR OLIVERA | | | Physician: JEFF : 1945 Age: 68 Sex: M Unit | | | #: [id number] Exam Date: 06/09/13 Location: | | | [place] Report #: [id number] Page: | | | %(RAD)RES..mtdd.print.filter("pg") of %(RAD) | | | RES..mtdd.print.filter("tpg") | | | | | | Accession Number: [id number] | | | LUMBAR SPINE LIMITED, 06/09/2013 CLINICAL HISTORY: | | | BACK PAIN. COMPARISON: [facility] | | | Imaging one view [...] Date/Time: 06/09/2013 14:32 | | | Hospital Liaison: <<Signature on File>> | | | | | | Shayne Barreto MD06/09/13 5399 <Electronically signed by Shayne Singer | | | Mary Lou GUNN> Shayne Barreto MD 06/09/13 1344 | | | Hospital Liaison: [employer] [id number]/26/13 1432 | | | Kemal Damian MD | | + + + + + + + + | Performing | Address | City/State/Zipcode | Phone Number | | Organization | | | | + + + + + | [address] | [address] | [place] | [phone] | | [facility] | | [address] | | | - IMAGING | | | | + + + + + documented in this encounter Visit Diagnoses + + | Diagnosis | + + | Back pain Backache, unspecified | + + documented in this encounter
--- OUTSIDE RECORDS SUMMARY | ~2019-11-22 | XMS | Encounter Summary ---
Demographics + + + | Address | [address] | | | [place] [address] | + + + | Home Phone | | + + + | Preferred Language | Unknown | + + + | Marital Status | | + + + | Episcopalian Affiliation | PRE | + + + | Race | White | + + + | Ethnic Group | Not or | + + + Author + + + | Author | [facility] | + + + | Organization | [facility] | + + + | Address | Unknown | + + + | Phone | Unavailable | + + + Support + + + + + | Name | Relationship | Address | Phone | + + + + + | Ricarda Johnson | ECON | [address] | | | | | [place] | | | | | [address] | | + + + + + Care Team Providers + +------+ + | Care Card Puncher Name | Role | Phone | + +------+ + | Hay Greco MD | PCP | | + +------+ + Encounter Details +--------+ + + + + | Date | Type | Department | Care Team | Description | +--------+ + + + + | 09/25/ | Abstract | Infectious | Rona Kulkarni | | | 2011 | | [facility] | JUNI Pace [address] | | | | | [address] | [address] | | | | | Loop [facility] | [place], [place] | | | | | [address], [facility] floor | [address] | | | | | [place], [place] | [phone] | | | | | [address] | | | | | | [phone] | | | +--------+ + + + [...] + | CBC, WITH | Routin | 09/26/2011 | | Results for this | | DIFFERENTIAL | e | 9:50 AM | | procedure are in the | | | | PDT | | results section. | + +--------+ + + + | COMPLETE METABOLIC | Routin | 09/26/2011 | | Results for this | | SET | e | 9:50 AM | | procedure are in the | | (NA,K,CL,CO2,BUN,CRE | | PDT | | results section. | | AT,GLUC,CA,AST,ALT,B | | | | | | HUMERA TOTAL,ALK | | | | | | PHOS,ALB,PROT TOTAL) | | | | | + +--------+ + + + documented in this encounter Results COMPLETE METABOLIC SET (NA,K,CL,CO2,BUN,CREAT,GLUC,CA,AST,ALT,BILI TOTAL,ALK PHOS,ALB,PROT TOTAL) (09/26/2011 9:50 AM PDT) + +-------+ + + + | Component | Value | Ref Range | Performed | Pathologist | | | | | At | Signature | + +-------+ + + + | GLUCOSE, | 96 | 65 - 110 mg/dL | NON [facility] | | | PLASMA | | | LAB | | | (LAB) | | | | | + +-------+ + + + | BUN, PLASMA | 24 | mg/dL | NON [facility] | | | (LAB) | | | LAB | | + +-------+ + + + | CREATININE | 1.21 | mg/dL | NON [facility] | | | PLASMA | | | LAB | | | (LAB) | | | | | + +-------+ + + + | TOTAL | 6.5 | g/dL | NON [facility] | | | PROTEIN, | | | LAB | | | PLASMA | | | | | | (LAB) | | | | | + +-------+ + + + | ALBUMIN, | 4.1 | g/dL | NON [facility] | | | PLASMA | | | LAB | | | (LAB) | | | | | + +-------+ + + + | CALCIUM, | 9 | mg/dL | NON [facility] | | | PLASMA | | | LAB | | | (LAB) | | | | | + +-------+ + + + | BILIRUBIN | 0.4 | Transcutaneous | NON [facility] | | | TOTAL | | Bilirubinometer | LAB | | + +-------+ + + + | ALK PHOS | 84 | U/L | NON [facility] | | | | | | LAB | | + +-------+ + + + | AST(SGOT) | 16 | U/L | NON [facility] | | | | | | LAB | | + +-------+ + + + | SODIUM, | 135 | mmol/L | NON [facility] | | | PLASMA | | | LAB | | | (LAB) | | | | | + +-------+ + + + | POTASSIUM, | 4.2 | mmol/L | NON [facility] | | | PLASMA | | | LAB | | | (LAB) | | | | | + +-------+ + + + | CHLORIDE, | 105 | mmol/L | NON [facility] | | | PLASMA | | | LAB | | | (LAB) | | | | | + +-------+ + + + | TOTAL CO2, | 21 | mmol/L | NON [facility] | | | PLASMA | | | LAB | | | (LAB) | | | | | + +-------+ + + + | ALT (SGPT) | 10 | U/L | NON [facility] | | | | | | LAB | | + +-------+ + + + | C-REACTIVE | 5 | mg/dl | NON [facility] | | [...] + +---------+ + + CBC, WITH DIFFERENTIAL (09/26/2011 9:50 AM PDT) + + + + + + | Component | Value | Ref Range | Performed | Pathologist | | | | | At | Signature | + + + + + + | WHITE CELL | 4.1 | K/cu mm | NON [facility] | | | COUNT | | | LAB | | + + + + + + | RED CELL | 3.34 | M/cu mm | NON [facility] | | | COUNT | | | LAB | | + + + + + + | HEMOGLOBIN | 11.2 (A) | 13.5 - 17.5 | NON [facility] | | | | | g/dL | LAB | | + + + + + + | HEMATOCRIT | 31.7 | % | NON [facility] | | | | | | LAB | | + + + + + + | MCV | 95 | fL | NON [facility] | | | | | | LAB | | + + + + + + | MCH | 34 | pg | NON [facility] | | | | | | LAB | | + + + + + + | MCHC | 35 | g/dL | NON [facility] | | | | | | LAB | | + + + + + + | PLATELET | 186 | K/cu mm | NON [facility] | | | COUNT | | | LAB | | + + + + + + | NEUTROPHIL | 78.9 | % | NON [facility] | | | % | | | LAB | | + + + + + + | LYMPHOCYTE | 10.8 | % | NON [facility] | | | % | | | LAB | | + + + + + + | MONOCYTE % | 6.6 | % | NON [facility] | | | | | | LAB | | + + + + + + | EOS % | 3.4 | % | NON [facility] | | | | | | LAB | | + + + + + + | BASO % | 0.3 | % | NON [facility] | | | | | | LAB | | + + + + + + | RDW | 13 | % | NON [facility] | | [...] + + + | ESR (SED | 43 | | NON [facility] | | | [...]
--- OUTSIDE RECORDS SUMMARY | ~2019-11-22 | XMS | Encounter Summary ---
Demographics + + + | Address | [address] | | | [place] [address] | + + + | Home Phone [...] Team Providers + +------+ + | Care Superintendent [employer] Name | Role | Phone | + +------+ + | Hay Greco MD | PCP | | + +------+ + Reason for Visit + + + | Reason | Comments | + + + | Follow-up | Discuss CT | + + + Encounter Details +--------+---------+ + + + | Date | Type | Department | Care Team | Description | +--------+---------+ + + + | 04/19/ | Office | [facility] | Kemal Damian MD | Lumbar radicular | | 2017 | Visit | NEUROSURGERY [address] | [address] | pain (Primary Dx); | | | | [address] | [place] [address] | Spinal stenosis of | | | | [place], [place] | [phone] | lumbar region, | | | | [address] | | unspecified whether | | | | [phone] | Kirk Javier | neurogenic | | | | | [address] | claudication | | | | | [address] | present; Facet | | | | | [place] [address] | arthropathy, lumbar; | | | | | [phone] | S/P lumbar fusion; | | | | | | DDD (degenerative | | | | | | disc disease), | | | | | | lumbar; Spinal | | | | | | stenosis of lumbar | | | | | | region with | | | | | | neurogenic | | | | | | claudication | +--------+---------+ + + + Social History [...] + + + | Blood Pressure | 127/78 | 04/19/2017 10:39 AM | | | | | PDT | | + + + + + | Pulse | 62 | 04/19/2017 10:39 AM | | | | | PDT [...] + + + + | Weight | 83.4 kg (183 lb 12.8 | 04/19/2017 10:39 AM | | | | oz) | PDT | | + + + + + | Height | 175.3 cm (5' 9") | 04/19/2017 10:39 AM | | | | | PDT | | + + + + + | Body Mass Index | 27.14 | 04/19/2017 10:39 AM | | | | | PDT [...] documented as of this encounter Progress Notes Kirk Javier PA-C - 04/19/2017 10:30 AM PDTFormatting of this note might be differ ent from the original. Kirk Javier PA-C [address] [facility], [address] [place] [address] FAX: NEUROSURGERY HISTORY AND PHYSICAL EXAMINATION CHIEF COMPLAINT: Chief Complaint Patient presents with Follow-up Discuss CT HISTORY OF PRESENT ILLNESS: The patient is a 71 y.o. male with the complaint of back and b ilateral leg pain symptoms that began 7-8 months ago. Patient was previously seen in our [facility]. We had ordered a CT scan of his lumbar spine. The results are being downloaded to [employer] at this time. In addition we had him see physiatry and he underwent epidural mai roid injections. He states that he had great relief nearly 90% improvement in the first day . Unfortunately his symptoms have returned to nearly baseline. He feels like maybe he has 10% improvement. He continues to have low back pain as well as pain and posterior legs when he is active. The patient describes his back and leg symptoms returned about 7-8 months he describes his pain has been gradually worsening. The symptoms have been gradually worsening. He rates the pain as moderate to severe. The symptoms are continuous. He describes the pain as sharp, shooting, dull and aching. The patient describes leg symptoms that occur on both sides equally.The leg symptoms are in termittent, and the symptoms travel from the back to the posterior leg that radiates to the knee. The patient also describes the loss of the ability to walk distances without sitting and weakness of the legs. In addition the patient has been having shoulder problems. He is currently under evaluatio n for shoulder surgery. He had an abnormal EKG and had cardiology testing. He'll first-deg ree AV block on his EKG. Office Clerk felt no additional testing was needed. He is not cur rently having chest pain. He has not had a history of coronary artery disease. He has mild ly elevated creatinine on lab testing The patient does not report any change in bowel or bladder function recently. His symptoms improve with rest and changing position. His symptoms worsen with kneeling, bending and twisting. He has tried Opioids and NSAIDS. The patient is currently taking Morphine 15 mg ER and Oxy codone 5 mg. PAST MEDICAL HISTORY: Past Medical History: Diagnosis Date Acute ischemic heart disease (HCC) Bone marrow aplasia (HCC) Colon cancer (HCC) Defecation urgency Headache syndrome benign High cholesterol HLD (hyperlipidemia) Internal derangement of knee Low back pain Lumbar spinal stenosis - above fusion L1/L2 03/07/2017 Osteoarthritis Osteoarthrosis, hand Radiculopathy, lumbar region Rectal malignant neoplasm (HCC) 07/2010 chemo, radiation, surgery Synovitis Systemic hypertension Thoracic neuritis PAST SURGICAL [...] Laterality: N/A; Surgeon: Kemal Damian MD; Location: [facility] MAIN OR LUMBAR LAMINECTOMY Dr. Tavarez SMALL INTESTINE SURGERY 2011 Rectal adenocarcinoma; Ileostomy takedown reanastomis rectum/colon TOTAL KNEE ARTHROPLASTY Right 03/2015 TOTAL KNEE ARTHROPLASTY Left 2015 CURRENT MEDICATIONS: Current Outpatient Prescriptions Medication Sig Dispense Refill acetaminophen (TYLENOL) 325 mg tablet Take 650 mg by mouth every 4 hours as needed for Pain. Prn pain amLODIPine (NORVASC) 5 mg tablet Take 1 tablet by mouth Daily. 0 cephalexin (KEFLEX) 500 mg capsule Take by mouth 4 times daily. 0 glucosamine-chondroitin 500-400 MG capsule Take 1 capsule by mouth Daily. hydroCHLOROthiazide 25 mg tablet Take 1 tablet by mouth Daily. 0 HYDROcodone-acetaminophen (NORCO) 5-325 mg per tablet as needed. 0 Misc Natural Products (GLUCOSAMINE CHONDROITIN ADV) TABS Take 1 tablet by mouth 3 times daily. morphine (MS CONTIN) 15 mg ER tablet Take 15 mg by mouth as needed for Pain. potassium chloride (KLOR-CON) 10 mEq CR tablet Take 20 mEq by mouth Daily. 0 No current facility-administered medications for this visit. ALLERGIES: Allergies Allergen Reactions Povidone Iodine Hives and Rash "skin blackwell" Chlorhexidine Rash "skin blackwell" Chlorhexidine Gluconate Rash and [...] Brother ARTERY BLOCKAGE Heart surgery Brother Atrial Fibrillation Brother Hypertension Brother Heart surgery Brother Atrial Fibrillation Brother No Known Problems Daughter No Known Problems Paternal Grandmother No Known Problems Maternal Grandmother No Known Problems Maternal Grandfather No Known Problems Paternal Grandfather REVIEW OF SYSTEMS: GENERALLY: No fever, no night sweats, no anemia, no fatigue, no recent profound weight ch anges. EYES: + eye problems, no use of corrective lenses, no eye injury, no double vision, no bli ndness. EARS, NOSE, AND THROAT: No changes in taste or smell, no hearing difficulty, + ringing in the ears, + ear drainage, no dizziness, no voice changes, no difficulty swallowing, + signif icant snoring, no sleep apnea, no sinus problems, no major dental work. NEUROLOGICALLY: Please see the review of systems discussed above in the history of present illness. In addition, the patient has numbness and pain of arm, coordination difficulty, p ain in back. PSYCHIATRIC: No depression, no sleep disorders, no [...] frequency, no painful or difficult urination, no incontinence, +impotence. ENDOCRINE: No diabetes, no thyroid disease, no osteopenia or osteoporosis, no breast drain age. SKIN: No breast lumps, no skin changes, no rashes, no itches. HEMATOLOGIC/LYMPHATIC: No enlarged lymph nodes, no easy or unusual bleeding, + personal hi story of cancer. RHEUMATOLOGIC: No joint arthritis, no rheumatoid arthritis. PHYSICAL EXAMINATION: Blood pressure 127/78, pulse 62, height 1.753 m (5' 9"), weight 83.4 kg (183 lb 12.8 oz). B curt mass index is 27.14 kg/m. GENERAL: Cosmo Johnson is in no acute distress with unlabored respirations. The pema iejese does appear uncomfortable throughout the exam today. HEENT: Head: Normocephalic/atraumatic with no areas of recent trauma. Eyes: Normal sclerae without icterus. Ears: No drainage or tenderness. Nasopharnyx: Clear without drainage. Oropharnyx: Clear without erythema. NECK (ANTERIOR): Supple and without palpable masses. CHEST: Clear to ausculation without crackles or wheeze. HEART: Regular rate and rhythm without murmurs. ABDOMEN: Soft, non-tender, non-distended, and without palpable masses. The patient is not o bese. SPINE: There is no tenderness of there cervical or thoracic spine. The lumbar spine shows there is no tenderness in the midline of the lumbar levels. To palp ation, there is no significant myofascial tenderness. There is no significant pain to provacative testing of the SI joint. There is no major deformity noted. EXTREMITIES: No cyanosis, clubbing, or edema. Distal pulses are palpable. NEUROLOGICAL EXAM: MENTAL STATUS: The patient is awake, alert, and oriented. He follows simple and complex commands. His speech is fluent, he comprehends speech well, and he repeats well. He has no apparent deficits with short or fci memory. CRANIAL NERVES: II: Acuity is intact. [...] Indicates pain limited MUSCLE/ MOVEMENT: RIGHT LEFT Deltoids 5 5 Biceps 5 5 Triceps 5 5 Wrist Flexion 5 5 Wrist Extension 5 5 Median Intrinsics 5 5 Ulnar Intrinsics 5 5 Buoy Tender Strength 5 5 Hip Flexion 5 5 Hip Extension 5 5 Knee Flexion 5 5 Knee Extension 5 5 Dorsiflexion 5 5 Extensor Hallicus Longus 5 5 Plantarflexion 5 5 SENSORY EXAM: Sensory exam shows no diminished sensation to light touch or pain throughout the upper and lower extremities. REFLEXES: (2 OR 2+ IS NORMAL) REFLEX: RIGHT LEFT BICEPS 2 2 BRACHIORADIALIS 2 2 TRICEPS 2 2 PATELLAR 2 2 ACHILLES 2 2 LAUREN'S ABSENT ABSENT PLANTAR DOWNGOING DOWNGOING GAIT: Antalgic gait TEST AND RADIOGRAPHIC REVIEW: The patient's imaging was reviewed in detail with the patient today during the visit. The MRI from 2016 shows progressive degenerative changes at L4-5 as well as L1-2 CT scan of his lumbar spine in March 2017 shows adequate fusion at operative levels. T he hardware appears to be stable Lumbar x-rays show Spondylolisthesis and degenerative changes at L1-L2. ASSESSMENT: NEUROSURGICAL DIAGNOSES: Encounter Diagnoses Name Primary? Lumbar radicular pain Yes Spinal stenosis of lumbar region, unspecified whether neurogenic claudication present Facet arthropathy, lumbar S/P lumbar fusion GENERAL DIAGNOSES: Past Medical [...] surgery Synovitis Systemic hypertension Thoracic neuritis PLAN: Cosmo Johnson presented today, and it was a pleasure seeing this patient and assessi ng his neurologic problems. The patient has progressive back pain as well as some pain posterior legs bilaterally. He has ongoing shoulder issues and is currently being evaluated for possible shoulder surgery. At this time he feels like his back is bothering him more than his shoulders. The patient has progressive symptoms despite non-operative measures. I had a lengthy discussion with the patient about his options for care including surgical a nd non-surgical options. I discussed a L1-2 anterior approach with plating. We discussed the risks, alternatives, and benefits to surgical intervention with MrElsie adame in clinic. These risks included but were not limited to , stroke, heart attack, num bness, weakness, paralysis, failure of fusion, failure of hardware, subsidence, adjacent seg ment degeneration, cerebrospinal fluid leak, bleeding, infection, injury to surrounding tiss ues and organs, injury from positioning, injury to the nerves, difficulty with breathing, di fficulty with swallowing, difficulty with voice change, and need for additional surgery. Surgical options were discussed and the technique to be employed was described in detail to him. All his questions were answered. We discussed that the goal of the surgery is to prevent progression of his disease, but it is not considered a cure. We also discussed that although some patients may obtain 100% sym ptom relief, it is realistic to anticipate that some symptoms will continue postoperatively despite a successful surgery. We also discussed that there is no guarantee that surgery will provide improvement in his c ondition, and indeed may even worsen the symptoms. We also discussed that in the course of the procedure the operative plan may be altered to include more, less, or different levels d epending upon findings in order to provide him with the best possible outcome. I am prescribing a brace before surgery to improve his stability now to support his weak mu scles and to reduce pain by restricting mobility. The patient would like to be considered for surgery as discussed and would like us to seek authorization and clearance for the operation. ELECTRONICALLY SIGNED BY: Kirk Javier PA-C, 04/19/2017 11:24 documented in this encou nter Plan of Treatment Not on filedocumented as of this encounter Visit Diagnoses + + | Diagnosis | + + | Lumbar radicular pain - Primary Thoracic or lumbosacral neuritis or radiculitis, | | unspecified | + + | Spinal stenosis of lumbar region, unspecified whether neurogenic claudication present | + + | Facet arthropathy, lumbar Lumbosacral spondylosis without myelopathy | + + | S/P lumbar fusion Arthrodesis status | + + | DDD (degenerative disc disease), lumbar Degeneration of lumbar or lumbosacral | | intervertebral disc | + + documented in this encounter
--- OUTSIDE RECORDS SUMMARY | ~2019-11-22 | XMS | Encounter Summary ---
Demographics + + + | Address | [address] | | | [place] [address] | + + + | Home Phone | | + + + | Preferred Language | Unknown | + + + | Marital Status | | + + + | Zoroastrian Affiliation | PRE | + + + | Race | White | + + + | Ethnic Group | Not or | + + + Author + + + | Author | [facility] | + + + | Organization | [facility] | + + + | Address | Unknown | + + + | Phone | Unavailable | + + + Support + + + + + | Name | Relationship | Address | Phone | + + + + + | Ricarda Johnson | ECON | [address] | | | | | [place] | | | | | [address] | | + + + + + Care Team Providers + +------+ + | Care Pull Worker Name | Role | Phone | + +------+ + | Hay Greco MD | PCP | | + +------+ + Encounter Details +--------+ + + + + | Date | Type | Department | Care Team | Description | +--------+ + + + + | 08/29/ | Abstract | Infectious | [facility]ona Kulkarni | | | 2011 | | [facility] | JUNI Pace [address] | | | | | [address] | [address] | | | | | Loop Physician's | [place], [place] | | | | | [address], [facility] floor | [address] | | | | | [place], [place] | [phone] | | | | | [address] | | | | | | [phone] | | | +--------+ + + + [...] + | CBC, WITH | Routin | 08/29/2011 | | Results for this | | DIFFERENTIAL | e | 9:50 AM | | procedure are in the | | | | PST | | results section. | + +--------+ + + + | COMPLETE METABOLIC | Routin | 08/29/2011 | | Results for this | | [...] COMPLETE METABOLIC SET (NA,K,CL,CO2,BUN,CREAT,GLUC,CA,AST,ALT,BILI TOTAL,ALK PHOS,ALB,PROT TOTAL) (08/29/2011 9:50 AM PST) + +-------+ + + + | Component | Value | Ref Range | Performed | Pathologist | | | | | At | Signature | + +-------+ + + + | GLUCOSE, | 82 | 65 - 110 mg/dL | NON [facility] | | | PLASMA | | | LAB | | | (LAB) | | | | | + +-------+ + + + | BUN, PLASMA | 22 | mg/dL | NON [facility] | | | (LAB) | | | LAB | | + +-------+ + + + | CREATININE | 1.22 | mg/dL | NON [facility] | | | PLASMA | | | LAB | | | (LAB) | | | | | + +-------+ + + + | TOTAL | 6.7 | g/dL | NON [facility] | | | PROTEIN, | | | LAB | | | PLASMA | | | | | | (LAB) | | | | | + +-------+ + + + | ALBUMIN, | 3.8 | g/dL | NON [facility] | | | PLASMA | | | LAB | | | (LAB) | | | | | + +-------+ + + + | CALCIUM, | 9.7 | mg/dL | NON [facility] | | | PLASMA | | | LAB | | | (LAB) | | | | | + +-------+ + + + | BILIRUBIN | | Transcutaneous | NON [facility] | | | TOTAL | | Bilirubinometer | LAB | | + +-------+ + + + | ALK PHOS | 124 | U/L | NON [facility] | | [...] +-------+ + + + | CHLORIDE, | 106 | mmol/L | NON [facility] | | | PLASMA | | | LAB | | | (LAB) | | | | | + +-------+ + + + | TOTAL CO2, | 20 | mmol/L | NON [facility] | | | PLASMA | | | LAB | | | (LAB) | | | | | + +-------+ + + + | ALT (SGPT) | 12 | U/L | NON [facility] | | [...] + +---------+ + + CBC, WITH DIFFERENTIAL (08/29/2011 9:50 AM PST) + +---------+ + + + | Component | Value | Ref Range | Performed | Pathologist | | | | | At | Signature | + +---------+ + + + | WHITE CELL | 4.7 | K/cu mm | NON [facility] | | | COUNT | | | LAB | | + +---------+ + + + | RED CELL | 2.89 | M/cu mm | NON [facility] | | | COUNT | | | LAB | | + +---------+ + + + | HEMOGLOBIN | 9.8 (A) | 13.5 - 17.5 | NON [facility] | | | | | g/dL | LAB | | + +---------+ + + + | HEMATOCRIT | 27.6 | % | NON [facility] | | | | | | LAB | | + +---------+ + + + | MCV | 95.7 | fL | NON [facility] | | | | | | LAB | | + +---------+ + + + | MCH | 34 | pg | NON [facility] | | | | | | LAB | | + +---------+ + + + | MCHC | 36 | g/dL | NON [facility] | | | | | | LAB | | + +---------+ + + + | PLATELET | 218 | K/cu mm | NON [facility] | | | COUNT | | | LAB | | + +---------+ + + + | NEUTROPHIL | 78.3 | % | NON [facility] | | | % | | | LAB | | + +---------+ + + + | LYMPHOCYTE | 9 | % | NON [facility] | | | % | | | LAB | | + +---------+ + + + | MONOCYTE % | 7.3 | % | NON [facility] | | | | | | LAB | | + +---------+ + + + | EOS % | 4.4 | % | NON [facility] | | | | | | LAB | | + +---------+ + + + | BASO % | 1 | % | NON [facility] | | | | | | LAB | | + +---------+ + + + | RDW | 14 | % | NON [facility] | | [...]
--- OUTSIDE RECORDS SUMMARY | ~2019-11-22 | XMS | Encounter Summary ---
Demographics + + + | Address | [address] | | | [place] [address] | + + + | Home Phone | | + + + | Preferred Language | Unknown | + + + | Marital Status | | + + + | Spiritism Affiliation | PRE | + + + | Race | White | + + + | Ethnic Group | Not or | + + + Author + + + | Author | [facility] | + + + | Organization | [facility] | + + + | Address | Unknown | + + + | Phone | Unavailable | + + + Support + + + + + | Name | Relationship | Address | Phone | + + + + + | Ricarda Johnson | ECON | [address] | | | | | [place] | | | | | [address] | | + + + + + Care Team Providers + +------+ + | Care Arts Administrator Or Manager Name | Role | Phone | + +------+ + | Hay Greco MD | PCP | | + +------+ + Encounter Details +--------+ + + + + | Date | Type | Department | Care Team | Description | +--------+ + + + + | 01/01/ | Abstract | [facility] | Edgar Hampton, | | | 2011 | | [facility] [address] | [address] | | | | | Debbie Mock | [address] | | | | | Mailcode: Center | [place], [place] | | | | | for Health and | [address] | | | | | [facility] [address] | [phone] | | | | | [place], [place] | | | | | | [address] | | | | | | [phone] | | | +--------+ + + + [...]
--- OUTSIDE RECORDS SUMMARY | ~2019-11-22 | XMS | Encounter Summary ---
Demographics + + + | Address | [address] | | | [place] [address] | + + + | Home Phone | | + + + | Preferred Language | Unknown | + + + | Marital Status | | + + + | Holiness Affiliation | 1077 | + + + [...] Providers + +------+ + | Care Rod Pointer Name | Role | Phone | + +------+ + | Hay Greco MD | PCP | | + +------+ + Reason for Visit +---------+ + | Reason | Comments | +---------+ + | Post Op | 4W PO | +---------+ + Encounter Details +--------+---------+ + + + | Date | Type | Department | Care Team | Description | +--------+---------+ + + + | 07/22/ | Office | [facility] | Carlos Armstrong | S/P lumbar fusion | | 2018 | Visit | [facility] [address] | [address] [address] | (Primary Dx) | | | | [address] | [address] | | | | | [place], [place] | [place], [place] | | | | | [address] | [address] | | | | | [phone] | | | +--------+---------+ + + + [...] + + + | Blood Pressure | 122/69 | 07/22/2017 8:57 AM | | | | | PST | | + + + + + | Pulse | 66 | 07/22/2017 8:57 AM | | | | | PST [...] + + + + | Weight | 85.8 kg (189 lb 2.5 | 07/22/2017 8:57 AM | | | | oz) | PST | | + + + + + | Height | 175.3 cm (5' 9") | 07/22/2017 8:57 AM | | | | | PST | | + + + + + | Body Mass Index | 27.93 | 07/22/2017 8:57 AM | | | | | PST [...] of this encounter Patient Instructions Patient Instructions Dulce Thakur, Kayak Maker - 07/22/2017 9:15 AM ROYAYobeti may no w slowly increase your lifting up to 15 pounds as tolerated. You may now reach overhead but it should only be 1-2 pounds. Please refrain from twisting for the next 8 weeks. Lastly, you will see Dr. Damian in approximately 2 months where a new x-ray will be taken at that time. In the meantime, you can also begin to wean out of your brace as instructed below. SPINE BRACE WEANING PROTOCOL (5 WEEKS) Below are instructions for weaning your brace. You can move through the weeks slower if yo u feel the need to do so, but the overall goal is to get you out of the brace slowly over th e next several weeks. WEEK 1 If you have been using your brace for activities like sleeping, showering, do not use the b race for these activities any longer but continue using it for everything else. WEEK 2 Stop wearing your brace for sitting and short distance walking. You should use the brace f or anything more involved. WEEK 3 Stop using the brace for medium distance walking. You can bend and twist your back but sti ll proceed slowly with these activities. WEEK 4 Stop using the brace for everything but the most difficult tasks. You should now be able to go on long walks and lift more weight as directed. Add more bending and twisting as tolera kristopher. WEEK 5 Stop using the brace for daily use. I would encourage you to use the brace in the future f or activities that you know might aggravate your back or cause pain. 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 documented in this encounter Progress Notes Carlos Armstrong PA-C - 07/22/2017 9:15 AM PSTFormatting of this note might be diffe rent from the original. Carlos Armstrong PA-C [address] [facility], [address] [place], [place] [id number] FAX: NEUROSURGERY FOLLOW-UP CHIEF COMPLAINT: Chief Complaint Patient presents with Post Op 4W PO HISTORY OF PRESENT ILLNESS: The patient is a 72 y.o. male that had a L1-2 LAIF w/ Lateral Plating for back and leg symptoms around 4 weeks ago. He returns and overall is doing well. The patient complains of lower back pain but has noticed improvement in his leg symptoms. The patient has been walking one mile per day. He is still taking pain medications at this point, but is decreasing his intake week by week. He has been taking hydrocodone-acetaminop hen 7.5-325 mg one pill twice weekly, he is also taking acetaminophen 325 mg as needed for p ain. The patient has had no issues with his surgical site. The patient has been wearing his back brace as instructed to. He would like to begin physical therapy but would like to postp one this for now since he will undergo a total right shoulder replacement for right shoulder pain. CURRENT MEDICATIONS: Current Outpatient Prescriptions Medication Sig Dispense Refill acetaminophen (TYLENOL) 325 mg tablet Take 650 mg by mouth 3 times daily. Prn pain hydroCHLOROthiazide 25 mg tablet Take 1 tablet by mouth Daily. 0 HYDROcodone-acetaminophen (NORCO) 7.5-325 mg per tablet Take 1-2 tablets by mouth every 4 hours as needed for Pain. 120 tablet 0 potassium chloride (KLOR-CON) 10 mEq [...] reports that he does not use drugs. INTERIM PHYSICAL EXAMINATION: Blood pressure 122/69, pulse 66, height 1.753 m (5' 9"), weight 85.8 kg (189 lb 2.5 oz). Martin dy mass index is 27.93 kg/m. GENERAL: Cosmo Johnson is in no acute distress with unlabored respirations. SPINE: The patient s incisions are healing well without drainage, significant erythema, o r discharge. EXTREMITIES: No lower extremity edema. NEUROLOGICAL EXAMINATION: [...] and were reviewed with the patient today. There have been no interval changes since the immediate postoperative films . Complete fusion has not yet occurred, but this is normal and would not be expected at thi s time. REVIEW OF SYSTEMS GENERALLY: No fever, no [...] the patient has numbness and pain of arms. PSYCHIATRIC: No depression, + sleep disorders, no anxiety, no bipolar disorder, no psychot ic episodes. CARDIOVASCULAR: No heart attacks, no heart [...] RHEUMATOLOGIC: + joint arthritis, no rheumatoid arthritis. ASSESSMENT: Encounter Diagnosis Name Primary? S/P lumbar fusion Yes Past Medical History: Diagnosis Date Acute ischemic [...] PLAN: Overall, the patient is doing well. The patient can see some improvements but continues to recover from recent surgery. We discussed his symptoms in more detail. We discussed that he needs to give time for his spine to continue to fuse to hopefully help his back pain impr ove more. We did not fix all the problems with the spine, but the more acute ones. I am gl ad to hear an improvement in his leg symptoms. I increased the patient s activities now allowing 15 pound lifting. The patient and also will begin the process of brace weaning. They should continue regular exercise and strengt hening with the hope that they can avoid additional surgery. We will hold on any physical t herapy at this time due to the patient scheduled for a shoulder replacement in the near [facility] re. We discussed that we can provide pain medications for up to 90 days after their surgical da te. We discussed the need to continue tapering pain medication. If they need longer term p ain medication, they should begin working on either pain management or with the primary care provider. I am hoping to see improvement over the coming weeks to months and plan to continue to foll ow this patient. The patient will follow-up in clinic in around 8 weeks for re-evaluation. ELECTRONICALLY SIGNED BY: Carlos Armstrong PA-C, 07/22/2017 9:52 I, Carlos Armstrong PA-C, personally performed the services described in this documentati on, as scribed by Dulce Thakur CMA in my presence, and it is both accurate and complete. Carlos Armstrong PA-C 07/22/2017 documented in this encounter Plan of Treatment [...]
--- OUTSIDE RECORDS SUMMARY | ~2019-11-22 | XMS | Encounter Summary ---
Demographics + + + | Address | [address] | | | [place] [address] | + + + | Home Phone | | + + + | Preferred Language | Unknown | + + + | Marital Status | | + + + | Adventism Affiliation | PRE | + + + [...] + | Ricarda Johnson | ECON | [address] | | | | | [place] | | | | | [address] | | + + + + + Care Team Providers + +------+ + | Care Adult Probation Officer Name | Role | Phone | + +------+ + | Hay Greco MD | PCP | | + +------+ + Encounter Details +--------+ + + + + | Date | Type | Department | Care Team | Description | +--------+ + + + + | 08/01/ | Abstract | [facility] | Edgar Hampton, | | | 2011 | | [facility] [address] | [address] | | | | | Debbie Mock | [address] | | | | | Mailcode: Center | [place], [place] | | | | | for Health and | [address] | | | | | [facility], [facility] [address] | [phone] | | | | | [place], [place] | | | | | | [address] | | | | | | [phone] | | | +--------+ + + + [...]
--- OUTSIDE RECORDS SUMMARY | ~2019-11-22 | XMS | Encounter Summary ---
Demographics + + + | Address | [address] | | | [place] [address] | + + + | Home Phone | | + + + | Preferred Language | Unknown | + + + | Marital Status | | + + + | Advent Affiliation | 1077 | + + + | Race | Unknown | + + + | Ethnic Group | Unknown | + + + Author + + + | Author | [facility] | | | and [place] | + + + | Organization | [facility] | [...] Team Providers + +------+ + | Care Digital Account Coordinator Name | Role | Phone | + +------+ + | Hay Greco MD | PCP | | + +------+ + Reason for Visit + + + | Reason | Comments | + + + | Procedure | | + + + Encounter Details +--------+ + + + + | Date | Type | Department | Care Team | Description | +--------+ + + + + | 06/17/ | Telephone | [facility] [place] | Kemal Damian MD | Procedure | | 2017 | | NEUROSURGERY [address] | [address] | | | | | [address] | [place] [address] | | | | | [place], [place] | [phone] | | | | | [address] | | | | | | [phone] | | | +--------+ + + + [...]
--- OUTSIDE RECORDS SUMMARY | ~2019-11-22 | XMS | Encounter Summary ---
Demographics + + + | Address | [address] | | | [place] [address] | + + + | Home Phone | | + + + | Preferred Language | Unknown | + + + | Marital Status | | + + + | Orthodox Affiliation | 1077 | + + + | Race | Unknown | + + + | Ethnic Group | Unknown | + + + Author + + + | Author | [facility] | | | and [place] | + + + | Organization | [facility] | | | [...] Team Providers + +------+ + | Care Metal Work Duct Installer Name | Role | Phone | + [...] Closed | | Radiology | Diagnoses | West, | [facility] | | | | | S/P lumbar | Kirk | DEANNE | | | | | fusion DDD | [address] | MEDICAL | | | | | (degenerativ | [address] | [address] | | | | | e disc | [address] | [address] | | | | | disease), | [place], [place] | [place], [place] | | | | | lumbar | [address] | [address] | | | | | Facet | Phone: | Phone: | | | | | arthropathy, | [phone] | [phone] | | | | | lumbar | Fax: | Fax: | | | | | Procedures | [phone] | [phone] | | | | | CT Lumbar | | | | | | | Spine wo | | | | | | | Contrast | | | +--------+--------+ + + + + Evaluate & Treat (Routine) +--------+ + + + + + | Status | Reason | Specialty | Diagnoses / | Referred By | Referred To | | | | | Procedures | Contact | Contact | +--------+ + + + + + | Closed | Specialty | Physical | Diagnoses | Yaya, | Oneil, | | | Services | Medicine and | S/P lumbar | Kirk | Pj Singer MD | | | Required | Rehabilitatio | fusion DDD | [address] | [address] | | | | n | (degenerativ | [address] | [facility] | | | | | e disc | [address] | [place], [place] | | | | | disease), | [place], [place] | [address] Phone: | | | | | lumbar | [address] | [phone] | | | | | Facet | Phone: | Fax: | | | | | arthropathy, | [phone] | [phone] | | | | | lumbar | Fax: | | | | | | | [phone] | | +--------+ + + + + + Evaluate & Treat (Routine) +--------+ + + + + + | Status | Reason | Specialty | Diagnoses / | Referred By | Referred To | | | | | Procedures | Contact | Contact | +--------+ + + + + + | Closed | Specialty | Physical | Diagnoses | West, | | | | Services | Therapy | S/P lumbar | Kirk | | | | Required | | fusion DDD | [address] | | | | | | (degenerativ | [address] | | | | | | e disc | [address] | | | | | | disease), | [place] | | | | | | lumbar | [address] | | | | | | Facet | Phone: | | | | | | arthropathy, | [phone] | | | | | | lumbar | Fax: | | | | | | Procedures | [phone] | | | | | | HIM 8/24 | | | +--------+ + + + + + Reason for Visit + + + | Reason | Comments | + + + | Back Pain | lower back pain radiates into legs above knee bilaterally, aching | | | with some sharp pains. | + + + Evaluate & Treat (Routine) +--------+--------+ + + + + | Status | Reason | Specialty | Diagnoses / | Referred By | Referred To | | | | | Procedures | Contact | Contact | +--------+--------+ + + + + | Closed | | Neurosurgery | Diagnoses | Angus, | Kemal Damian | | | | | | Hay | MD [address] | | | | | Radiculopath | MD [place] [address] | | | | | y, lumbar | [address] | [place] | | | | | region | [place] | [address] | | | | | Procedures | [address] | Phone: | | | | | ME OFFICE | [place], | [phone] | | | | | CONSULTATION | [place] | Fax: | | | | | NEW/ESTAB | [address] | [phone] | | | | | PATIENT 60 | Phone: | | | | | | MIN | [phone] | | | | | | | Fax: | | | | | | | [phone] | | +--------+--------+ + + + + Encounter Details +--------+---------+ + + + | Date | Type | Department | Care Team | Description | +--------+---------+ + + + | 02/07/ | Office | [facility] | Gucci Javierlas | S/P lumbar fusion | | 2017 | Visit | NEUROSURGERY [address] | [address] | (Primary Dx); DDD | | | | [address] | [address] | (degenerative disc | | | | [place], [place] | [place] [address] | disease), lumbar; | | | | [address] | [phone] | Facet arthropathy, | | | | [phone] | | lumbar | +--------+---------+ + + + Social History [...] + + + | Blood Pressure | 144/95 | 02/07/2017 1:54 PM | | | | | PDT | | + + + + + | Pulse | 65 | 02/07/2017 1:54 PM | | | | | PDT [...] + + + + | Weight | 81.7 kg (180 lb 3 | 02/07/2017 1:54 PM | | | | oz) | PDT | | + + + + + | Height | 175.3 cm (5' 9") | 02/07/2017 1:54 PM | | | | | PDT | | + + + + + | Body Mass Index | 26.61 | 02/07/2017 1:54 PM | | | | | PDT [...] of this encounter Patient Instructions Patient Instructions Kirk Javier PA-C - 02/07/2017 2:15 PM PDTToday we decided y ou would continue with your efforts at obtaining cardiac clearance. I would like you to par ticipate with physical therapy and physiatry while we are waiting for your cardiac clearance while you are completing your shoulder evaluation. After the images have been completed I would like you to return to the office to check on your progress documented in this encounter Progress Notes Kirk Javier PA-C - 02/07/2017 2:15 PM PDTFormatting of this note might be differ ent from the original. Kirk Javier PA-C [address] [facility], [address] [place] [address] FAX: NEUROSURGERY HISTORY AND PHYSICAL EXAMINATION CHIEF COMPLAINT: Chief Complaint Patient presents with Back Pain lower back pain radiates into legs above knee bilaterally, aching with some sharp pains. HISTORY OF PRESENT ILLNESS: The patient is a 71 y.o. male with the complaint of back and b ilateral leg pain symptoms that began 7-8 months ago. The patient describes his back and leg symptoms returned about 7-8 months he describes his pain has been gradually worsening. The patient was last seen in our office by me on 12/14/2014 with a previous history of lumbar fu sions. The symptoms have been gradually worsening. He [...] surgery. He had an abnormal EKG and has a cardiology consultation pending in the late part of February. He is not currently having chest pain. He has not had a history of coronary artery disease. He has mildly elevated creatinine on lab testing The patient [...] Internal derangement of knee Low back pain Osteoarthritis Osteoarthrosis, hand Radiculopathy, lumbar region Rectal malignant neoplasm (HCC) 07/2010 chemo, radiation, surgery Synovitis Systemic hypertension Thoracic neuritis PAST SURGICAL HISTORY: Past Surgical History: Procedure Laterality Date CATARACT REMOVAL Left 2016 Wrinkle repair, detached retina COLONOSCOPY 04/2014 FINGER SURGERY Left 2013 4th & 5th digit; saw injury FINGER TRIGGER RELEASE Right Hand HAND SURGERY Left trauma ILEOSTOMY OR JEJUNOSTOMY 2010 rectal adenocarcinoma INGUINAL HERNIA REPAIR Bilateral LUMBAR LAMINECTOMY 10/22/2013 L2-3, L3-4 TRANSFORAMINAL LUMBAR INTERBODY FUSION; Laterality: N/A; Surgeon: Kemal Damian MD; Location: [facility] MAIN OR LUMBAR LAMINECTOMY Dr. Tavarez SMALL INTESTINE SURGERY 2011 Rectal adenocarcinoma; Ileostomy takedown reanastomis rectum/colon TOTAL KNEE ARTHROPLASTY Right 03/2015 TOTAL KNEE ARTHROPLASTY Left 2016 CURRENT MEDICATIONS: Current Outpatient Prescriptions Medication Sig Dispense Refill acetaminophen (TYLENOL) 325 mg tablet Take 650 mg by mouth every 4 hours as needed for Pain. Prn pain amLODIPine (NORVASC) 5 mg tablet Take 1 tablet by mouth Daily. 0 Oasfdvyje-Jpveoflbodg-Mpc D (GLUCOSAMINE COMPLEX PO) Take 2 tablets by mouth Daily. ferrous sulfate 325 mg tablet Take 325 mg by mouth Three times a week. hydroCHLOROthiazide 25 mg tablet Take 1 tablet by mouth Daily. 0 Misc Natural Products (GLUCOSAMINE CHONDROITIN ADV) TABS Take 1 tablet by mouth 2 times daily. morphine (MS CONTIN) 15 mg ER tablet Take 15 mg by mouth as needed for Pain. MULTIPLE VITAMIN PO Take 1 tablet by mouth Daily. oxyCODONE (ROXICODONE) 5 mg tablet Take 2.5 mg by mouth Twice a week. potassium chloride (KLOR-CON) 10 mEq CR tablet [...] no rheumatoid arthritis. PHYSICAL EXAMINATION: Blood pressure (!) 144/95, pulse 65, height 1.753 m (5' 9"), weight 81.7 kg (180 lb 3 oz). Body mass index is 26.61 kg/m. GENERAL: Cosmo Johnson is in no acute distress with unlabored respirations. The pema villalobos does appear uncomfortable throughout the exam today. [...] has no apparent deficits with short or custodial memory. CRANIAL NERVES: II: Acuity is intact. [...] Intrinsics 5 5 Ulnar Intrinsics 5 5 Glove Examiner Strength 5 5 Hip Flexion 5 5 [...] today during the visit. The MRI from 2017 shows progressive degenerative changes at L4-5 as well as L1 to.. Lumbar x-rays show spondylolisthesis at L1 to on flexion extension views. ASSESSMENT: NEUROSURGICAL DIAGNOSES: Encounter Diagnoses Name Primary? S/P lumbar fusion Yes DDD (degenerative disc disease), lumbar Facet arthropathy, lumbar GENERAL DIAGNOSES: Past Medical History: Diagnosis Date Acute ischemic heart disease (HCC) Bone marrow aplasia (HCC) Colon cancer (HCC) Defecation urgency Headache syndrome benign High cholesterol HLD (hyperlipidemia) Internal derangement of knee Low back pain Osteoarthritis Osteoarthrosis, hand Radiculopathy, lumbar region Rectal malignant neoplasm (HCC) 07/2010 chemo, radiation, surgery Synovitis Systemic hypertension Thoracic neuritis PLAN: Cosmo Johnson presented today, and it was a pleasure seeing this patient and assessi ng his neurologic problems. The patient has progressive back pain as well as some pain posterior legs bilaterally. Has an abnormal EKG and is having cardiology consultation the end of February. He has ongoing oulder issues and is currently being evaluated for possible shoulder surgery. At this time he feels like his back is bothering him more than his shoulders. . The patient has progressive symptoms despite non-operative measures. I had a lengthy discussion with the patient about his options for care including surgical a nd non-surgical options. I've asked the patient to continue with plans for cardiology consultation. I have asked hi m to have his cardiology evaluation forwarded to us for further evaluation. In addition I w ould like him to see physiatry as well as participate with physical therapy to intensify con servative therapy. Hopefully he can have some relief with this. If he does may be reasonab le to have his shoulders taking care of first. However I would like the patient to return t o the office after CT scan performed so that we can make further recommendations The patient would like to try additional conservative measures that I have prescribed today . ELECTRONICALLY SIGNED BY: Kirk Javier PA-C, 02/08/2017 11:27 documented in this encounter Plan of Treatment + +---------+--------+ + + | Name | Type | Priori | Associated Diagnoses | Order Schedule | | | | ty | | | + +---------+--------+ + + | CT Lumbar Spine wo | Imaging | Routin | S/P lumbar fusion | Expected: | | Contrast | | e | DDD (degenerative | 02/07/2017, Expires: | | | | | disc disease), | 02/07/2018 | | | | | lumbar Facet | | | | | | arthropathy, lumbar | | + +---------+--------+ + + + + +--------+ + + | Name | Type | Priori | Associated Diagnoses | Order Schedule | | | | ty | | | + + +--------+ + + | OUTPATIENT PT | Outpatient | Routin | S/P lumbar fusion | Ordered: 02/07/2017 | | EXTERNAL | Referral | e | DDD (degenerative | | | | | | disc disease), | | | | | | lumbar Facet | | | | | | arthropathy, lumbar | | + + +--------+ + + | [facility] | Outpatient | Routin | S/P lumbar fusion | Ordered: 02/07/2017 | | | Referral | e | DDD (degenerative | | | | | | disc disease), | | | | | | lumbar Facet | | | | | | arthropathy, lumbar | | + + +--------+ + + documented as of this encounter Visit Diagnoses + + | Diagnosis | + + | S/P lumbar fusion - Primary Arthrodesis status | + + | DDD (degenerative disc disease), lumbar Degeneration of lumbar or lumbosacral | | intervertebral disc | + + | Facet arthropathy, lumbar Lumbosacral spondylosis without myelopathy | + + documented in this encounter
--- OUTSIDE RECORDS SUMMARY | ~2019-11-22 | XMS | Encounter Summary ---
Demographics + + + | Address | [address] | | | [place] [address] | + + + | Home Phone | | + + + | Preferred Language | Unknown | + + + | Marital Status | | + + + | Religion Affiliation | PRE | + + + | Race | White | + + + | Ethnic Group | Not or | + + + Author + + + | Author | [facility] | + + + | Organization | [facility] | + + + | Address | Unknown | + + + | Phone | Unavailable | + + + Support + + + + + | Name | Relationship | Address | Phone | + + + + + | Ricarda Johnson | ECON | [address] | | | | | [place] | | | | | [address] | | + + + + + Care Team Providers + +------+ + | Care Submarine Operator Name | Role | Phone | + +------+ + | Hay Greco MD | PCP | | + +------+ + Reason for Visit + + + | Reason | Comments | + + + | Pathology Report | slides recived from [facility] [id number] | + + + Encounter Details +--------+ + + + + | Date | Type | Department | Care Team | Description | +--------+ + + + + | 05/12/ | Business Investor | Digestive Health | Edgar Hampton, | Malignant neoplasm | | 2009 | | [place] at [facility] [address] | MD [address] | of rectum (HCC) | | | | [address] | [address] | (Primary Dx) | | | | Mailcode: [place] | [place], [place] | | | | | [facility] and | [address] | | | | | [facility] 2 | [phone] | | | | | [place], [place] | | | | | | [address] | | | | | | [phone] | | | +--------+ + + + [...] | + +--------+ + + + | SURGICAL PATHOLOGY | Routin | 05/12/2010 | Malignant neoplasm | Results for this | | | e | | of rectum (HCC) | procedure are in the | | | | | | results section. | + +--------+ + + + documented in this encounter Results SURGICAL PATHOLOGY (05/12/2010) + + + + + + | Component | Value | Ref Range | Performed | Pathologist | | | | | At | Signature | + + + + + + | SURGICAL | SOURCE OF SPECIMEN:A | | [facility] | | | PATHOLOGY | Rectal tumor 9cm, biopsy | | DEPARTMENT | | | | Materials | | OF | | | | Received:Referring | | PATHOLOGY | | | | Institution: [facility] | | | | | | [facility], | | | | | | Quan Valdovinos | | | | | | Accession Number: | | | | | | [id number] | | | | | | Collection Date: | | | | | | 03/21/10H&E | | | | | | IHC Unstained | | | | | | Blocks1 | | | | | | 0 | | | | | | 0 | | | | | | | | | | | | 0 Final Pathologic | | | | | | Diagnosis:Rectal tumor | | | | | | at 9 cm, biopsy ([facility] | | | | | | [facility], | | | | | | [id number],03/21/2010): | | | | | | - Invasive | | | | | | adenocarcinoma, well to | | | | | | moderately | | | | | | differentiated | | | | | | Case seen by:Codi | | | | | | Danielle Morales, | | | | | | Ph.D./Surgical Pathology | | | | | | Roxann Mesa, | | | | | | Danielle/PathologistSliahsan | | | | | | will be returned at a | | | | | | later dateT:05/15/10:lauren | | | | | | Clinical | | | | | | History:The patient is a | | | | | | 64-year-old male with a | | | | | | history of rectal | | | | | | bleeding. My | | | | | | [...] Diagnostician: | | | | | | Ratna Mesa | | | | | | DaniellePathologistMarcki | | | | | | marco Signed 05/16/2010 | | | | + + + + + + + + | Specimen | + + | Biopsy - Rectal | + + + + + + + | Performing | Address | City/State/Zipcode | Phone Number | | Organization | | | | + + + + + | [facility] | [address] | [place] [address] | | | PATHOLOGY | [address] | | | + + + + + documented in this encounter Visit Diagnoses + + | Diagnosis | + + | Malignant neoplasm of rectum (HCC) - Primary Malignant neoplasm of rectum | + + documented in this encounter"
--- OUTSIDE RECORDS SUMMARY | ~2019-11-22 | XMS | Encounter Summary ---
Demographics + + + | Address | [address] | | | [place] [address] | + + + | Home Phone | | + + + | Preferred Language | Unknown | + + + | Marital Status | | + + + | Druze Affiliation | PRE | + + + | Race | White | + + + | Ethnic Group | Not or | + + + Author + + + | Author | [facility] | + + + | Organization | [facility] | + + + | Address | Unknown | + + + | Phone | Unavailable | + + + Support + + + + + | Name | Relationship | Address | Phone | + + + + + | Ricarda Johnson | ECON | [address] | | | | | [place] | | | | | [address] | | + + + + + Care Team Providers + +------+ + | Care Go Go Dancer Name | Role | Phone | + +------+ + | Hay Greco MD | PCP | | + +------+ + Encounter Details +--------+ + + + + | Date | Type | Department | Care Team | Description | +--------+ + + + + | 11/20/ | Abstract | Digestive Health | Edgar Hampton, | | | 2011 | | [place] at [facility] [address] | [address] | | | | | [address] | [address] | | | | | Mailcode: Center | [place], [place] | | | | | for Health and | [address] | | | | | [facility] 2 | [phone] | | | | | [place], [place] | | | | | | [address] | | | | | | [phone] | | | +--------+ + + + [...]
--- OUTSIDE RECORDS SUMMARY | ~2019-11-22 | XMS | Encounter Summary ---
Demographics + + + | Address | [address] | | | [place] [address] | + + + | Home Phone | | + + + | Preferred Language | Unknown | + + + | Marital Status | | + + + | Amish Affiliation | 1077 | + + + | Race | Unknown | + + + | Ethnic Group | Unknown | + + + Author + + + | Author | [facility] | | | and [place] | + + + | Organization | [facility] | | [...] Team Providers + +------+ + | Care Sweet Dough Mixer Name | Role | Phone | + +------+ + | Hay Greco MD | PCP | | + +------+ + Encounter Details +--------+ + + + + | Date | Type | Department | Care Team | Description | +--------+ + + + + | 01/18/ | [facility] | [facility] | Kirk Javier | Spondylolisthesis of | | 2014 | Encounter | MED CTR XRAY [address] | [address] | lumbar region; | | | | [place] | [address] | Spinal stenosis of | | | | [place] [address] | [place] [address] | lumbar region with | | | | [phone] | [phone] | neurogenic | | | | | | claudication; Facet | | | | | | arthropathy, lumbar; | | | | | | DDD (degenerative | | | | | | disc disease), | | | | | | lumbar; S/P lumbar | | | | | | fusion | +--------+ + + + + Social [...] 7 | + + + +---------+--------+ + documented as of this encounter Plan of Treatment Not on filedocumented as of this encounter Procedures + +--------+ + + + | Procedure Name | Priori | Date/Time | Associated Diagnosis | Comments | | | ty | | | | + +--------+ + + + | XR LUMBAR SPINE 2 [place] | Routin | 01/18/2014 | Spondylolisthesis | Results for this | | 3 VW | e | 1:12 PM | of lumbar region | procedure are in the | | | | PDT | Spinal stenosis of | results section. | | | | | lumbar region with | | | | | | neurogenic | | | | | | claudication Facet | | | | | | arthropathy, lumbar | | | | | | DDD (degenerative | | | | | | disc disease), | | | | | | lumbar S/P lumbar | | | | | | fusion | | + +--------+ + + + documented in this encounter Results XR Lumbar Spine 2 or 3 Vw (01/18/2014 1:12 PM PDT) + + | Specimen | + + | | + + + + + | Narrative | Performed At | + + + | LUMBAR SPINE: 01/18/2014 1:12 PM CLINICAL HISTORY: Postop | MISCELANIOUS | | COMPARISON: 11/18/2013 FINDINGS: AP and lateral views of lumbar | LAB | | spine. Posterior pedicle screw and aimee and interbody fusion across | | | L2-L3 and L3-L4. Interspinous fusion also at L2-L3. Fixation | | | components are in stable position. Vertebral body heights are normally | | | maintained. Stable disc space narrowing with vacuum disc change | | | at L1-L2 and L4-L5. Minimal retrolisthesis of L1 on L2, unchanged. | | | Minimal retrolisthesis of L4 on L5, unchanged. No new bony or | | | adjacent soft tissue abnormality. IMPRESSION - Stable L2-L4 | | | fusions. Dictated and Signed by: Izaiah Ansari MD | | | Electronically signed: 01/18/2014 4:01 PM | | + + + + + | Procedure Note | + + | Dwayne Mendoza Results In - 01/18/2014 4:04 PM PDT LUMBAR SPINE: 01/18/2014 1:12 PM | | | | CLINICAL HISTORY: Postop | | | | COMPARISON: 11/18/2013 | | | | FINDINGS: AP and lateral views of lumbar spine. Posterior pedicle screw and aimee | | and interbody fusion across L2-L3 and L3-L4. Interspinous fusion also at L2-L3. | | Fixation components are in stable position. Vertebral body heights are normally | | maintained. | | | | Stable disc space narrowing with vacuum disc change at L1-L2 and L4-L5. Minimal | | retrolisthesis of L1 on L2, unchanged. Minimal retrolisthesis of L4 on L5, | | unchanged. No new bony or adjacent soft tissue abnormality. | | | | IMPRESSION - Stable L2-L4 fusions. | | | | Dictated and Signed by: Izaiah Ansari MD | | Electronically signed: 01/18/2014 4:01 PM | + + + +---------+ + + | Performing | Address | City/State/Zipcode | Phone Number | | Organization | | | | + +---------+ + + | [facility] | | | [phone] | + +---------+ + + | MISCELANIOUS LAB | | | [phone] | + +---------+ + + documented in this encounter Visit Diagnoses + + | Diagnosis | + + | Spondylolisthesis of lumbar region Acquired spondylolisthesis | + + | Spinal stenosis of lumbar region with neurogenic claudication Spinal stenosis, lumbar | | region, with neurogenic claudication | + + | Facet arthropathy, lumbar Lumbosacral spondylosis without myelopathy | + + | DDD (degenerative disc disease), lumbar Degeneration of lumbar or lumbosacral | | intervertebral disc | + + | S/P lumbar fusion Arthrodesis status | + + documented in this encounter"
--- OUTSIDE RECORDS SUMMARY | ~2019-11-22 | XMS | Encounter Summary ---
Demographics + + + | Address | [address] | | | [place] [address] | + + + | Home Phone | | + + + | Preferred Language | Unknown | + + + | Marital Status | | + + + | Presybeterian Affiliation | 1077 | + + + | Race | Unknown | + + + | Ethnic Group | Unknown | + + + Author + + + | Author | [facility] | | | and [place] | + + + | Organization | [facility] | | | [...] Team Providers + +------+ + | Care Mixed Crop And Livestock Farm Worker Name | Role | Phone | [...] | Lumbar | [place], | [address] | | | | | spondylosis | Pj Singer MD | [place], | | | | | Procedures | [address] | [place] | | | | | [place] | [place] | [address] | | | | | DX/THER AGNT | [place], [place] | Phone: | | | | | [place] | [address] | [phone] | | | | | [address], | Phone: | Fax: | | | | | LUMBAR/SAC, | [phone] | [phone] | | | | | 1ST LEVEL | Fax: | | | | | | [place] INJ | [phone] | | | | | | DX/THER AGNT | | | | | | | [place] | | | | | | | [address] [place], | | | | | | | LUMBAR/SAC, | | | | | | | 2ND LEVEL | | | | | | | [place] | | | | | | | [...] + + | 07/22/ | Hospital | [facility] | David Brower, | Lumbar spondylosis | | 2019 | Encounter | MED CTR XRAY [address] | PA-C [address] | | | | | [address] [place] | [address] [place] | | | | | [place] [address] | [place] [address] | | | | | [phone] | [phone] | | | | | | | | | | | | Nutrition Coordinator, [facility] | | | | | | [...]
--- OUTSIDE RECORDS SUMMARY | ~2019-11-22 | XMS | Encounter Summary ---
Demographics + + + | Address | [address] | | | [place] [address] | + + + | Home Phone | | + + + | Preferred Language | Unknown | + + + | Marital Status | | + + + | Jew Affiliation | PRE | + + + | Race | White | + + + | Ethnic Group | Not or | + + + Author + + + | Author | [facility] | + + + | Organization | [facility] | + + + | Address | Unknown | + + + | Phone | Unavailable | + + + Support + + + + + | Name | Relationship | Address | Phone | + + + + + | Ricarda Johnson | ECON | [address] | | | | | [place] | | | | | [address] | | + + + + + Care Team Providers + +------+ + | Care Sales Account Executive Name | Role | Phone | + +------+ + | Hay Greco MD | PCP | | + +------+ + Reason for Visit + + + | Reason | Comments | + + + | Medical Records | [facility] - OUTSIDE PROCEDURE REPORT 05/06/2014 (colonoscopy) | | Review | | + + + Encounter Details +--------+ + + + + | Date | Type | Department | Care Team | Description | +--------+ + + + + | Abstract | Digestive Health | Edgar Hampton, | Medical Records | | 2013 | | [place] at [facility] [address] | [address] [facility] | Review ([facility] - | | | | [address] | [address] | OUTSIDE PROCEDURE | | | | Mailcode: Center | [place], [place] | REPORT 05/06/2014 | | | | for Health and | [address] | (colonoscopy)) | | | | [facility] 2 | [phone] | | | | | [place], [place] | | | | | | [address] | | | | | | [phone] | | | +--------+ + + + [...]
--- OUTSIDE RECORDS SUMMARY | ~2019-11-22 | XMS | Encounter Summary ---
Demographics + + + | Address | [address] | | | [place] [address] | + + + | Home Phone | | + + + | Preferred Language | Unknown | + + + | Marital Status | | + + + | Baptism Affiliation | 1077 | + + + | Race | Unknown | + + + | Ethnic Group | Unknown | + + + Author + + + | Author | [facility] | | | and [place] | + + + | Organization | [facility] | | [...] Team Providers + +------+ + | Care Cis Coordinator Name | Role | Phone | + +------+ + | Aldo Frank DO | PCP | | + +------+ + Reason for Visit + + + | Reason | Comments | + + + | Procedure | Confirmation call | + + + Encounter Details +--------+ + + + + | Date | Type | Department | Care Team | Description | +--------+ + + + + | 06/16/ | Telephone | [facility] [place] | Geraldo Bass | Procedure | | 2019 | | [place] [address] | MD [place] [address] | (Confirmation call ) | | | | [address] | [address] | | | | | [place] | [place] [id number] | | | | | [address] | [phone] | | | | | [phone] | | | +--------+ + + + [...]
--- OUTSIDE RECORDS SUMMARY | ~2019-11-22 | XMS | Encounter Summary ---
Demographics + + + | Address | [address] | | | [place] [address] | + + + | Home Phone | | + + + | Preferred Language | Unknown | + + + | Marital Status | | + + + | Evangelical Affiliation | PRE | + + + | Race | White | + + + | Ethnic Group | Not or | + + + Author + + + | Author | [facility] | + + + | Organization | [facility] | + + + | Address | Unknown | + + + | Phone | Unavailable | + + + Support + + + + + | Name | Relationship | Address | Phone | + + + + + | Ricarda Johnson | ECON | [address] | | | | | [place] | | | | | [address] | | + + + + + Care Team Providers + +------+ + | Care Logistics Officer Name | Role | Phone | + +------+ + | Hay Greco MD | PCP | | + +------+ + Encounter Details +--------+ + + + + | Date | Type | Department | Care Team | Description | +--------+ + + + + | 07/03/ | Documentati | Digestive Health | Clinic, Surgery | | | 2010 | on | Center at [facility] [address] | | | | | | [address] | | | | | | Mailcode: Center | | | | | | for Health and | | | | | | Healing, Building [address] | | | | | | [place], [place] | | | | | | [address] | | | | | | [phone] | | | +--------+ + + + [...]
--- OUTSIDE RECORDS SUMMARY | ~2019-11-22 | XMS | Encounter Summary ---
Demographics + + + | Address | [address] | | | [place] [address] | + + + | Home Phone | | + + + | Preferred Language | Unknown | + + + | Marital Status | | + + + | Denominational Affiliation | PRE | + + + [...] + | Ricarda Johnson | ECON | [address] | | | | | [place] | | | | | [address] | | + + + + + Care Team Providers + +------+ + | Care Director Of Online Merchandising Name | Role | Phone | + +------+ + | Hay Greco MD | PCP | | + +------+ + Encounter Details +--------+ + + + + | Date | Type | Department | Care Team | Description | +--------+ + + + + | 07/03/ | Documentati | Digestive Health | Clinic, Surgery | | | 2010 | on | Center at [facility] [address] | | | | | | [address] | | | | | | Mailcode: Center | | | | | | for Health and | | | | | | Healing, Building [address] | | | | | | [place], [place] | | | | | | [address] | | | | | | [phone] | | | +--------+ + + + [...]
--- OUTSIDE RECORDS SUMMARY | ~2019-11-22 | XMS | Encounter Summary ---
Demographics + + + | Address | [address] | | | [place] [address] | + + + | Home Phone | | + + + | Preferred Language | Unknown | + + + | Marital Status | | + + + | Protestant Affiliation | 1077 | + + + | Race | Unknown | + + + | Ethnic Group | Unknown | + + + Author + + + | Author | [facility] | | | and [place] | + + + | Organization | [facility] | | | [...] Team Providers + +------+ + | Care Valuation Manager Name | Role | Phone | [...] | | [address] | [place] [address] | | | | | [place] | [phone] | | | | | [address] | | | | | | [phone] | | | +--------+ + + + [...]
--- OUTSIDE RECORDS SUMMARY | ~2019-11-22 | XMS | Encounter Summary ---
Demographics + + + | Address | [address] | | | [place] [address] | + + + | Home Phone | | + + + | Preferred Language | Unknown | + + + | Marital Status | | + + + | Evangelical Affiliation | 1077 | + + + | Race | Unknown | + + + | Ethnic Group | Unknown | + + + Author + + + | Author | [facility] | | | and [place] | + + + | Organization | [facility] | | | [...] Team Providers + +------+ + | Care Automobile Tester Name | Role | Phone | + [...] | | | [place], [place] | [address] | | | | | [address] | | | | | | [phone] | | | +--------+ + + + [...]
--- OUTSIDE RECORDS SUMMARY | ~2019-11-22 | XMS | Encounter Summary ---
Demographics + + + | Address | [address] | | | [place] [address] | + + + | Home Phone | | + + + | Preferred Language | Unknown | + + + | Marital Status | | + + + | Orthodox Affiliation | 1077 | + + + | Race | Unknown | + + + | Ethnic Group | Unknown | + + + Author + + + | Author | [facility] | | | and [place] | + + + | Organization | [facility] | | | [...] Team Providers + +------+ + | Care Ux Lead Name | Role | Phone | + [...] Failed back | [place], | [address] | | | | | surgical | Pj Singer MD | [place], | | | | | syndrome | [address] | [place] | | | | | S/P lumbar | [place] | [address] | | | | | fusion | [place] | Phone: | | | | | Procedures | [address] | [phone] | | | | | MRI Thoracic | Phone: | Fax: | | | | | Spine wo | [phone] | [phone] | | | | | Contrast | Fax: | | | | | | | [phone] | | +--------+--------+ + + + + [...] | S/P lumbar | [address] [place] | [place], [place] | | | | | fusion | [place], [place] | [address] | | | | | | [address] | Phone: | | | | | | Phone: | [phone] | | | | | | [phone] | Fax: | | | | | | Fax: | [phone] | | | | | | [phone] | | +--------+ + + + + [...] | | | | | lumbar | [place], | [address] Phone: | | | | | region | [place] | [phone] | | | | | Facet | [address] | Fax: | | | | | arthropathy, | Phone: | [phone] | | | | | lumbar | [phone] | | | | | | Lumbar | Fax: | | | | | | radicular | [phone] | | | | | | pain [...] | | | [place], [place] | [address] | syndrome | | | | [address] | | | | | | [phone] | | | +--------+---------+ + + + [...] 10:00 AM PDT . Pj Riggs MD [address] [place] [address], [address] [place], [place] [address] FAX: CHIEF COMPLAINT: Chief Complaint Patient presents [...] STIR, axial T2. | | | FINDINGS: Loom Tuner images of the cervical spine demonstrate mild [...] sagittal | | T1, sagittal STIR, axial T2.FINDINGS:Loom Tuner images of the cervical spine demonstrate | [...] There is mild retrolisthesis of | | I53yuas L1.Severe disc narrowing is at T12-L1 with [...]
--- OUTSIDE RECORDS SUMMARY | ~2019-11-22 | XMS | Encounter Summary ---
Demographics + + + | Address | [address] | | | [place] [address] | + + + | Home Phone | | + + + | Preferred Language | Unknown | + + + | Marital Status | | + + + | Faith Affiliation | PRE | + + + | Race | White | + + + | Ethnic Group | Not or | + + + Author + + + | Author | [facility] | + + + | Organization | [facility] | + + + | Address | Unknown | + + + | Phone | Unavailable | + + + Support + + + + + | Name | Relationship | Address | Phone | + + + + + | Ricarda Johnson | ECON | [address] | | | | | [place] | | | | | [address] | | + + + + + Care Team Providers + +------+ + | Care Software Technician Name | Role | Phone | + +------+ + | Hay Greco MD | PCP | | + +------+ + Encounter Details +--------+ + + + + | Date | Type | Department | Care Team | Description | +--------+ + + + + | 10/11/ | Learning Center Coordinator | Infectious | Silvia Jackson, | | | 2011 | | [facility] at [facility] | [address] | | | | | [address] | [address] | | | | | Loop Physician's | [place] [address] | | | | | Brian, [address]rd floor | [phone] | | | | | [place], [place] | | | | | | [address] | | | | | | [phone] | | | +--------+ + + + [...]
--- OUTSIDE RECORDS SUMMARY | ~2019-11-22 | XMS | Encounter Summary ---
Demographics + + + | Address | [address] | | | [place] [address] | + + + | Home Phone | | + + + | Preferred Language | Unknown | + + + | Marital Status | | + + + | Temple Affiliation | 1077 | + + + | Race | Unknown | + + + | Ethnic Group | Unknown | + + + Author + + + | Author | [facility] | | | and [place] | + + + | Organization | [facility] | | | [...] Team Providers + +------+ + | Care Sampler First Name | Role | Phone | + +------+ + PCP | Unavailable | + +------+ + Encounter Details +--------+ + + + + | Date | Type | Department | Care Team | Description | +--------+ + + + + | 04/14/ | Hospital | [facility] | | | | 2009 - | Encounter | MED CTR CANCER | | | | | | CENTER [address] | | | | 05/14/ | | [place] | | | | 2009 | | [address] | | | | | | [phone] | | | +--------+ + + + [...]
--- OUTSIDE RECORDS SUMMARY | ~2019-11-22 | XMS | Encounter Summary ---
Demographics + + + | Address | [address] | | | [place] [address] | + + + | Home Phone | | + + + | Preferred Language | Unknown | + + + | Marital Status | | + + + | Islam Affiliation | PRE | + + + [...] + | Ricarda Johnson | ECON | [address] | | | | | [place] | | | | | [address] | | + + + + + Care Team Providers + +------+ + | Care Back Hoe Operator Name | Role | Phone | + +------+ + | Hay Greco MD | PCP | | + +------+ + Reason for Visit + + + | Reason | Comments | + + + | Pre-op evaluation | | + + + Encounter Details +--------+---------+ + + + | Date | Type | Department | Care Team | Description | +--------+---------+ + + + | 07/25/ | Office | Preoperative | Kavya Batista NP | Pre-op evaluation | | 2010 | Visit | Medicine Clinic at | [address] | (Primary Dx); | | | | [facility] 4th Floor [address] | [place], [place] | Malignant neoplasm | | | | [address] | [address] | of rectum (HCC); | | | | Mailcode: CH4S | [phone] | Screening for | | | | [facility] | | diabetes mellitus | | | | and Healing, | | | | | | Building 1,4th Floor | | | | | | [place], [place] | | | | | | [address] | | | | | | [phone] | | | +--------+---------+ + + + [...] + + + | Blood Pressure | 146/80 | 07/25/2010 10:36 AM | | | | | PST | | + + + + + | Pulse | 95 | 07/25/2010 10:36 AM | | | | | PST | | + + + + + | Temperature | 36.7 C (98 F) | 07/25/2010 10:36 AM | | | | | PST | | + + + + + | Respiratory Rate | 16 | 07/25/2010 10:36 AM | | | | | PST | | + + + + + | Oxygen Saturation | 99% | 07/25/2010 10:36 AM | | | | | PST | | + + + + + | Inhaled Oxygen | - | - | | | Concentration | | | | + + + + + | Weight | 85.7 kg (189 lb) | 07/25/2010 10:36 AM | | | | | PST | | + + + + + | Height | 175.3 cm (5' 9") | 07/25/2010 10:36 AM | | | | | PST | | + + + + + | Body Mass Index | 27.91 | 07/25/2010 10:36 AM | | | | | PST | | + + + + + documented in this encounter Patient Instructions Patient Instructions Kavya Batista NP - 07/25/2010 11:08 AM [facility] Do not eat or drink anything after midnight the night before surgery. TAKE the following medications with a sip of water on the morning of surgery: Acetaminophen (TYLENOL EXTRA STRENGTH) 500 mg Oral Tablet, Take 1,000 mg by mouth every six hours as needed. Do not take any Aspirin, vitamin E or non-steroidal anti-inflammatory (NSAIDs i.e. Advil , Aleve, Ibuprofen) or herbal supplements seven days prior to your surgery. These drugs may interfere with normal blood clotting and may cause excessive bleeding and bruising during or after the surgery. Please see the list below for more products that contain Aspirin, Ibupro fen, or Vitamin E If you are taking Coumadin (warfarin), Plavix or any other blood thinners please let you r surgical team know as medication changes will be necessary. If you need a pain medication for general purposes, use Tylenol as directed. If you are in doubt about any medications that you are taking, please contact our office . AVOID THESE MEDICATIONS FOR 7 DAYS BEFORE SURGERY PRODUCTS CONTAINING ASPIRIN OR NON-STEROIDAL ANTI-INFLAMMATORY DRUGS (NSAIDs) Advil, Aleve, [place], Anacin, Arthopan, Ascriptin, Aspergum, Aspirin with and without codeine, Chikis aspirin. Bufferin, Butalbital, Butazone, Cataflam, Clinoril, Co-Advil, Coges ic, Darvon, Daypro, Diclofenac, Diflunisal, Dipyridamole, Disalcid, Declan s, Dolene, Dolobi d, Easpirin, Etodolac, Feldene, Fenoprofen, Ibuprofen, Indocin, Indomethacin, Lodine, Meclof enamate, Menadol, Meprobamate/Aspirin, Midol, Motrin and Motrin IB, Nabumetone, Naproxen, No rgesic, Nuprin, Nytol, Nyquil, Orudis, Oruvail, Oxycodone and aspirin, Oxyphenbutazone, Pamp rin, Pepto Bismol, Percodan, Persantine, Phenylbutazone, Piroxicam, Propoxyphene, Relafen, R obomol, Rufen, Sine-aid, [place] s cold tablets, Sulindac, Talwin, Tolectin, Triaminici n, Trigesic, Voltaren, Zorprin. OTHER PRODUCTS WHICH MAY PROMOTE BLEEDING Vitamin E, Gingko Biloba, Marine Fatty Acids, [place]-3 Fish Oil Supplements Important Guidelines Please do not to shave the surgical site at home before the surgery Do not smoke, drink alcohol or use recreational drugs for 24 hours before your surgery Do not eat any hard candy or chew gum after midnight the night before your surgery. Watch for any change in your health condition. Let your surgeon know right away if you do not feel well. Body hygiene: Take a bath or shower and remember to shampoo your hair using your usual hair product before your arrival at the hospital. Body hygiene -- Hibiclens bath/shower bathe or shower the evening before and the mor eric of your surgery. Use the bottle of Hibiclens soap for each cleansing. Wash from yo ur neck to your toes. BE CAREFUL NOT TO WASH YOUR FACE OR HAIR WITH THIS SOLUTION. Shampoo your hair using your usual hair product before your arrival at the hospital. Dental hygiene: Please remember to brush your teeth the night before and the morning of your procedure. Do not wear makeup, perfume, lotions or powder. Remove any nail estonian from at least one fingernail. Do not wear any jewelry to the hospital. Wear loose, comfortable clothing. Bring the case and solution for your contact lenses or wear your glasses. Leave all your valuables at home. Allow enough travel time so you re not late for your check in for surgery. Pain management after surgery Following surgery, at regular intervals, your nurse will ask you to rate your pain on a scale of 0-10 (0 is no pain and 10 is the worst pain you can imagine). A variety of pain management strategies may be appropriate, such as intravenous medicati ons, oral medications, peripheral nerve bocks or epidural catheters that can deliver local a nesthetic to cover the area of your surgical incision. Please discuss this with your anesth esiologist to receive additional information about what might be appropriate for you. The goal for pain control therapy is to be comfortable enough to change your position, c ough and take deep breaths. You will be asked to do such activities to help prevent complic ations. Things to do after surgery (hospitalized patients) Use an incentive spirometer or peep breathe to keep your lungs working properly an d to help prevent respiratory complications. It helps you take long, deep breaths. Use it at least once every hour while you are awake. Leg and feet exercises will maintain good circulation and help prevent blood clots in yo ur legs. Sometimes your doctor will order air compression stockings. Compressed air helps the circulation in your legs. Walking and moving will help stimulate normal circulation and deep breathing. After you r surgery, your nurse may ask you to sit, stand or walk. Check in locations Admitting [phone], [facility], ninth floor lobby Check-in times for Hospital Admissions are not available until the day prior to surgery. So meone from your surgeon's office or the hospital will contact you with your check in time. I f you do not hear from anyone by 3:00 PM please call your surgeons' office for [id number] . Going Home Your surgeon will decide when you are medically ready to go home. If you are released to go home on the same day as your procedure/surgery please note the following: You will not be competent to drive and will require someone else to transport y ou home on the day of discharge since pain medications and physical activity restrictions li praneeth your ability to drive safely. It is also required that you have someone assist you and look after you on the first night after you have undergone regional blocks, deep sedation, a nd/or general anesthesia. If you stayed in the hospital after surgery, please arrange for your ride to come for yo u around 9AM on the day your doctor says you can go home. Check out time is 11AM. If you have questions or concerns after you go home, call your doctor s office. If it is after office hours, call the [facility] coagulation operator at [phone] and ask them to page your doc tor. You will require transportation home on the day of discharge. Pain medications and physi jacob activity restrictions may limit your ability to drive safely. It is also recommended th at you have someone assist you and look after you on the first night after you are released to go home. documented in this encounter Progress Notes Kavya Batista NP - 07/25/2010 11:06 AM PSTPlease see scanned Preoperative History & Physic al in the "Media" tab under ANESTHESIA PREOP EVALUATION and Centricity. Please also find add itional test results under "Media" tab in tocario. I spent 25 minutes in the care of this patient, > 50% of which was spent in counseling and coordination of care. All patient's questions clarified and answered satisfactorily. Bartolo Batista, MSN, ACNP- Nurse Practitioner Pre-operative Medicine Clinic [facility], Mail code : [facility] [phone] [place] [address] (DIRECT LINE) (FAX) 2007 ACC/ AHA Perioperative Guidelines 1. Need for emergency noncardiac surgery? b. No -> Proceed to next step. 2. Active Cardiac Conditions? These conditions mandate further investigation and manageme nt. A. Acute VA within 7 days: no B. Unstable angina/Recent VA (7- 30 days): no C. Decompensated CHF: no D. Significant arrhythmia: None E. Severe valvular disease: NONE 3. Low risk surgery? b. No -> proceed with next step. 4. Good functional capacity? (>4 METS)a. Yes -> proceed with surgery. Recommendations (based on risk factors): 0 risk factors- proceed with surgery 1- 2 risk factors- proceed with planned surgery with HR control or consider noninvasive yecenia ting if it will change release manager. 3 or more risk factors AND high risk surgery- consider testing if it will change release manager . documented in this enco unter Plan of Treatment Not on filedocumented as of this encounter Procedures + +--------+ + + + | Procedure Name | Priori | Date/Time | Associated Diagnosis | Comments | | | ty | | | | + +--------+ + + + | 12 LEAD ECG | Routin | 07/25/2010 | Pre-op evaluation | Results for this | | | e | 11:44 AM | | procedure are in the | | | | PST | | results section. | + +--------+ + + + documented in this encounter Results 12 LEAD ECG (07/25/2010 11:44 AM PST) + + + + + + | Component | Value | Ref Range | Performed | Pathologist | | | | | At | Signature | + + + + + + | VENTRICULAR | 60 | BPM | [facility] | | | RATE | | | OF | | | | | | CARDIOLOGY | | + + + + + + | ATRIAL RATE | 60 | BPM | [facility] | | | | | | OF | | | | | | CARDIOLOGY | | + + + + + + | P-R | 196 | ms | [facility] | | | INTERVAL | | | OF | | | | | | CARDIOLOGY | | + + + + + + | QRS | 98 | ms | [facility] | | | DURATION | | | OF | | | | | | CARDIOLOGY | | + + + + + + | QT | 406 | ms | [facility] | | | | | | OF | | | | | | CARDIOLOGY | | + + + + + + | QTC | 406 | ms | [facility] | | | | | | OF | | | | | | CARDIOLOGY | | + + + + + + | P AXIS | 68 | degrees | [facility] | | | | | | OF | | | | | | CARDIOLOGY | | + + + + + + | R AXIS | 58 | degrees | [facility] | | | | | | OF | | | | | | CARDIOLOGY | | + + + + + + | T AXIS | 47 | degrees | [facility] | | | | | | OF | | | | | | CARDIOLOGY | | + + + + + + | EKG | Normal sinus | | [facility] | | | DIAGNOSIS | rhythmNormal ECG"I have | | OF | | | | personally interpreted | | CARDIOLOGY | | | | this report, either | | | | | | alone or with a | | | | | | trainee."Confirmed by | | | | | | LUIZA HYDE ([id number]) | | | | | | on 07/26/2010 12:12:45 PM | | | | + + + + + + + + | Specimen | + + | | + + + + + | Narrative | Performed At | + + + | Please click | [facility] | | on view image for the detailed interpretation from [employer] results. | CARDIOLOGY | + + + + + + + + | Performing | Address | City/State/Zipcode | Phone Number | | Organization | | | | + + + + + | [facility] | [address] | [place], [place] | | | CARDIOLOGY | [address] | [address] | | + + + + + SONIA GARVIN ONLY (07/25/2010 11:26 AM PST) + + + + + + | Component | Value | Ref Range | Performed | Pathologist | | | | | At | Signature | + + + + + + | COLOR(UR) | Yellow | | [facility] | | | | | | DEPARTMENT | | | | | | OF | | | | | | PATHOLOGY | | + + + + + + | APPEARANCE | Clear | | [facility] | | | | | | DEPARTMENT | | | | | | OF | | | | | | PATHOLOGY | | + + + + + + | GLUCOSE(UR) | Negative | mg/dL | [facility] | | | | | | DEPARTMENT | | | | | | OF | | | | | | PATHOLOGY | | + + + + + + | BILIRUBIN | Negative | | [facility] | | | | | | DEPARTMENT | | | | | | OF | | | | | | PATHOLOGY | | + + + + + + | KETONES | Negative | mg/dL | [facility] | | | | | | DEPARTMENT | | | | | | OF | | | | | | PATHOLOGY | | + + + + + + | SPECIFIC | 1.020 | 1.005 - 1.030 | [facility] | | | GRAVITY | | | DEPARTMENT | | | | | | OF | | | | | | PATHOLOGY | | + + + + + + | BLOOD | Negative | | [facility] | | | | | | DEPARTMENT | | | | | | OF | | | | | | PATHOLOGY | | + + + + + + | PH(UR) | 5.5 | 5.0 - 8.0 | [facility] | | | | | | DEPARTMENT | | | | | | OF | | | | | | PATHOLOGY | | + + + + + + | PROTEIN(LAB | Negative | mg/dL | [facility] | | | ) | | | DEPARTMENT | | | | | | OF | | | | | | PATHOLOGY | | + + + + + + | UROBILINOGE | 0.2 | 0 - 0.2 GABRIEL | [facility] | | | N | | UNITS | DEPARTMENT | | | | | | OF | | | | | | PATHOLOGY | | + + + + + + | NITRITES | Negative | Negative | [facility] | | | | | | DEPARTMENT | | | | | | OF | | | | | | PATHOLOGY | | + + + + + + | LEUKOCYTE | Negative | Negative | [facility] | | | ESTERASE | | | DEPARTMENT | | | | | | OF | | | | | | PATHOLOGY | | + + + + + + + + | Specimen | + + | Urine - Urine | + + + + + + + | Performing | Address | City/State/Zipcode | Phone Number | | Organization | | | | + + + + + | [facility] | [address] | [place] [address] | | | PATHOLOGY | [address] | | | + + + + + CARCINOEMBRYONIC AG, SERUM (07/25/2010 11:26 AM PST) + + + + + + | Component | Value | Ref Range | Performed | Pathologist | | | | | At | Signature | + + + + + + | CEA-CARCINO | 2.4Comment: TEST | <3.1 ng/mL | | | | EMBRYONIC | INFORMATION: | | | | | AG, SERUM | Carcinoembryonic | | | | | | Antigen:The Meghna | | | | | | Modular E170 CEA | | | | | | electrochemiluminescenti | | | | | | mmunoassay was used. | | | | | | Results obtained with | | | | | | different assaymethods | | | | | | or kits cannot be used | | | | | | interchangeably. | | | | | | Measurementof CEA has | | | | | | been shown to be | | | | | | clinically relevant in | | | | | | themanagement of | | | | | | patients with | | | | | | colorectal, breast, | | | | | | lung,prostatic, | | | | | | pancreatic, and ovarian | | | | | | carcinomas. Smokers | | | | | | mayhave slightly | | | | | | elevated levels of CEA. | | | | | | The CEA assay | | | | | | value,regardless of | | | | | | level, should not be | | | | | | interpreted as | | | | | | evidencefor the presence | | | | | | or absence of malignant | | | | | | disease and is | | | | | | notrecommended for use | | | | | | as a screening procedure | | | | | | to detect thepresence | | | | | | of cancer in the general | | | | | | population.Performed by | | | | | | [employer], | | | | | | | | | | | | [address] | | | | | | [facility] | | | | | | [address] | | | | | | | | | | | | www.[employer], | | | | | | Rebeca Murdock MD - | | | | | | Lab. Director | | | | + + + + + + + + | Specimen | + + | Blood - Blood | + + + + + + + | Performing | Address | City/State/Zipcode | Phone Number | | Organization | | | | + + + + + | [facility] | [address] | [place], [place] | | | [facility] | | [address] | | + + + + + TYPE AND SCREEN (07/25/2010 11:26 AM PST) + + + + + + | Component | Value | Ref Range | Performed | Pathologist | | | | | At | Signature | + + + + + + | ABO GROUP | A | | [facility] | | | | | | DEPARTMENT | | | | | | OF | | | | | | PATHOLOGY | | + + + + + + | RH TYPE | Positive | | [facility] | | | | | | DEPARTMENT | | | | | | OF | | | | | | PATHOLOGY | | + + + + + + | Antibody | Negative | | [facility] | | | Screen | | | DEPARTMENT | | | | | | OF | | | | | | PATHOLOGY | | + + + + + + + + | Specimen | + + | Blood - Blood | + + + + + + + | Performing | Address | City/State/Zipcode | Phone Number | | Organization | | | | + + + + + | [facility] | [address] | [place] [address] | | | PATHOLOGY | [address] | | | + + + + + CBC ONLY (07/25/2010 11:26 AM PST) + + + + + + | Component | Value | Ref Range | Performed | Pathologist | | | | | At | Signature | + + + + + + | WHITE CELL | 4.8 | 4.4 - 11.0 K/cu | [facility] | | | COUNT | | mm | DEPARTMENT | | | | | | OF | | | | | | PATHOLOGY | | + + + + + + | RED CELL | 4.26 (L) | 4.50 - 5.90 | [facility] | | | COUNT | | M/cu mm | DEPARTMENT | | | | | | OF | | | | | | PATHOLOGY | | + + + + + + | HEMOGLOBIN | 14.3 | 13.5 - 17.5 | [facility] | | | | | g/dL | DEPARTMENT | | | | | | OF | | | | | | PATHOLOGY | | + + + + + + | HEMATOCRIT | 42.3 | 41.0 - 53.0 % | [facility] | | | | | | DEPARTMENT | | | | | | OF | | | | | | PATHOLOGY | | + + + + + + | MCV | 99.1 (H) | 80.0 - 96.0 fL | [facility] | | | | | | DEPARTMENT | | | | | | OF | | | | | | PATHOLOGY | | + + + + + + | MCHC | 33.8 | 33.4 - 35.5 | [facility] | | | | | g/dL | DEPARTMENT | | | | | | OF | | | | | | PATHOLOGY | | + + + + + + | RDW | 14.2 | 11.5 - 15.0 % | [facility] | | | | | | DEPARTMENT | | | | | | OF | | | | | | PATHOLOGY | | + + + + + + | PLATELET | 183 | 150 - 400 K/cu | [facility] | | | COUNT | | mm | DEPARTMENT | | | | | | OF | | | | | | PATHOLOGY | | + + + + + + + + | Specimen | + + | Blood - Blood | + + + + + + + | Performing | Address | City/State/Zipcode | Phone Number | | Organization | | | | + + + + + | [facility] | [address] | [place] [address] | | | PATHOLOGY | [address] | | | + + + + + COMPLETE METABOLIC SET (NA,K,CL,CO2,BUN,CREAT,GLUC,CA,AST,ALT,BILI TOTAL,ALK PHOS,ALB,PROT TOTAL) (07/25/2010 11:26 AM PST) + + + + + + | Component | Value | Ref Range | Performed | Pathologist | | | | | At | Signature | + + + + + + | GLUCOSE, | 100 (H) | 60 - 99 mg/dL | [facility] | | | PLASMA | | | DEPARTMENT | | | (LAB) | | | OF | | | | | | PATHOLOGY | | + + + + + + | BUN, PLASMA | 14 | 6 - 20 mg/dL | [facility] | | | (LAB) | | | DEPARTMENT | | | | | | OF | | | | | | PATHOLOGY | | + + + + + + | CREATININE | 0.90 | 0.70 - 1.30 | [facility] | | | PLASMA | | mg/dL | DEPARTMENT | | | (LAB) | | | OF | | | | | | PATHOLOGY | | + + + + + + | TOTAL | 6.4 | 6.1 - 7.9 g/dL | [facility] | | | PROTEIN, | | | DEPARTMENT | | | PLASMA | | | OF | | | (LAB) | | | PATHOLOGY | | + + + + + + | ALBUMIN, | 4.1 | 3.5 - 4.7 g/dL | [facility] | | | PLASMA | | | DEPARTMENT | | | (LAB) | | | OF | | | | | | PATHOLOGY | | + + + + + + | CALCIUM, | 9.5 | 8.6 - 10.2 | [facility] | | | PLASMA | | mg/dL | DEPARTMENT | | | (LAB) | | | OF | | | | | | PATHOLOGY | | + + + + + + | BILIRUBIN | 0.5 | 0.3 - 1.2 mg/dL | [facility] | | | TOTAL | | | DEPARTMENT | | | | | | OF | | | | | | PATHOLOGY | | + + + + + + | ALK PHOS | 66 | 56 - 119 U/L | [facility] | | | | | | DEPARTMENT | | | | | | OF | | | | | | PATHOLOGY | | + + + + + + | AST(SGOT) | 21 | 15 - 41 U/L | [facility] | | | | | | DEPARTMENT | | | | | | OF | | | | | | PATHOLOGY | | + + + + + + | SODIUM, | 141 | 134 - 143 | [facility] | | | PLASMA | | mmol/L | DEPARTMENT | | | (LAB) | | | OF | | | | | | PATHOLOGY | | + + + + + + | POTASSIUM, | 4.7 | 3.4 - 5.0 | [facility] | | | PLASMA | | mmol/L | DEPARTMENT | | | (LAB) | | | OF | | | | | | PATHOLOGY | | + + + + + + | CHLORIDE, | 106 | 97 - 108 mmol/L | [facility] | | | PLASMA | | | DEPARTMENT | | | (LAB) | | | OF | | | | | | PATHOLOGY | | + + + + + + | TOTAL CO2, | 29Comment: New Total | 22 - 29 mmol/L | [facility] | | | PLASMA | CO2 reference range | | DEPARTMENT | | | (LAB) | effective 06/06/10. | | OF | | | | | | PATHOLOGY | | + + + + + + | ALT (SGPT) | 24 | 13 - 48 U/L | [facility] | | | | | | DEPARTMENT | | | | | | OF | | | | | | PATHOLOGY | | + + + + + + | EGFR | > 60 | >60 mL/min | [facility] | | | - | | | DEPARTMENT | | | LIBERIAN | | | OF | | | | | | PATHOLOGY | | + + + + + + | EGFR NON | > 60Comment: GFR is | >60 mL/min | [facility] | | | -NICOLA | estimated using the MDRD | | DEPARTMENT | | | RICAN | equation recommended by | | OF | | | | theNational Kidney | | PATHOLOGY | | | | Disease Education | | | | | | Program. Estimated GFR | | | | | | Interpretive | | | | | | Information: <60 | | | | | | mL/min/1.73 sq m | | | | | | Chronic Kidney Disease | | | | | | <15 mL/min/1.73 sq m | | | | | | Kidney Failure | | | | | | Estimated GFR greater | | | | | | than 60mL/min/1.73 is of | | | | | | limited clinical Value. | | | | | | The MDRD equation is | | | | | | not valid in the | | | | | | following situations: - | | | | | | Patients under 18 years | | | | | | of age - Severe | | | | | | malnutrition or obesity | | | | | | - Vegetarian diet - | | | | | | Rapidly changing kidney | | | | | | function | | | | + + + + + + | ANION GAP | 6 | 4 - 11 mmol/L | [facility] | | | | | | DEPARTMENT | | | | | | OF | | | | | | PATHOLOGY | | + + + + + + | ANION | 5 | 4 - 11 mmol/L | [facility] | | | GAP(ALB | | | DEPARTMENT | | | CORRECTED) | | | OF | | | | | | PATHOLOGY | | + + + + + + + + | Specimen | + + | Blood - Blood | + + + + + + + | Performing | Address | City/State/Zipcode | Phone Number | | Organization | | | | + + + + + | [facility] | [address] | [place] [address] | | | PATHOLOGY | [address] | | | + + + + + HEMOGLOBIN A1C, BLOOD (07/25/2010 11:26 AM PST) + +-------+ + + + | Component | Value | Ref Range | Performed | Pathologist | | | | | At | Signature | + +-------+ + + + | HEMOGLOBIN | 5.4 | <5.7 % | [facility] | | | A1C | | | [facility] | | | | | | LABORATORY | | + +-------+ + + + + + | Specimen | + + | Blood - Blood | + + + + + | Narrative | Performed At | + + + | HbA1c Interpretive Information If you are screening for | [facility] | | diabetes: <5.7 Non-diabetic 5.7-6.4 | [facility] | | Prediabetes >6.4 Diabetes, if confirmed For | LABORATORY | | monitoring of diabetes control: <7.0 Usual goal of | | | treatment; low risk for complications 7.0-8.0 Some | | | increased risk for long-term complications >8.0 | | | Higher risk of complications; strongly consider | | | intensifying therapy [facility] ([facility]) | | | [facility] [place] [address] [address] [facility] | | | [place] [address] | | + + + + + + + + | Performing | Address | City/State/Zipcode | Phone Number | | Organization | | | | + + + + + | [facility] | [address] | [place] [address] | | | LABORATORY | | | | + + + + + documented in this encounter Visit Diagnoses + + | Diagnosis | + + | Pre-op evaluation - Primary Preoperative examination, unspecified | + + | Malignant neoplasm of rectum (HCC) Malignant neoplasm of rectum | + + | Screening for diabetes mellitus | + + documented in this encounter
--- OUTSIDE RECORDS SUMMARY | ~2019-11-22 | XMS | Encounter Summary ---
Demographics + + + | Address | [address] | | | [place] [address] | + + + | Home Phone | | + + + | Preferred Language | Unknown | + + + | Marital Status | | + + + | Taoist Affiliation | 1077 | + + + | Race | Unknown | + + + | Ethnic Group | Unknown | + + + Author + + + | Author | [facility] | | | and [place] | + + + | Organization | [facility] | | | [...] Team Providers + +------+ + | Care Shoe Sewing Machine Operator And Tender Name | Role | Phone | [...] | | | | Diagnoses | | Kali, | | | | | S/Akhil spinal | | Geraldo Dougherty MD | | | | | fusion | | [address] | | | | | Lumbar | | [address] | | | | | radiculopath | | [address] | | | | | y Failed | | [place] | | | | | back | | [id number] Phone: | | | | | syndrome | | [phone] | | | | | Procedures | | Fax: | | | | | [place] [facility] | | [phone] | | | | | IMPLNT | | | | | | | NEUROELECT,E | | | | | | | PIDURAL | | | | | | | PLACEMENT | | | | | | | SPINAL CORD | | | | | | | STIMULATOR | | | +--------+--------+ + + + + Encounter Details +--------+---------+ + + + | Date | Type | Department | Care Team | Description | +--------+---------+ + + + | 06/18/ | Surgery | [facility] | Geraldo Bass | PLACEMENT SPINAL | | 2018 | | [facility] | MD Farhat [address] | CORD STIMULATOR | | | | [address] | [address] | | | | | [place], [place] | [place] [address] | | | | | [address] | [phone] | | | | | [phone] | | | +--------+---------+ + + + [...] + + + | Blood Pressure | 137/69 | 06/18/2019 11:00 AM | | | | | PST | | + + + + + | Pulse | 85 | 06/18/2019 11:00 AM | | | | | PST | | + + + + + | Temperature | 36.5 C (97.7 F) | 06/18/2019 10:00 AM | | | | | PST | | + + + + + | Respiratory Rate | 19 | 06/18/2019 10:14 AM | | | | | PST | | + + + + + | Oxygen Saturation | 98% | 06/18/2019 11:00 AM | | | | | PST | | + + + + + | Inhaled Oxygen | - | - | | | Concentration | | | | + + + + + | Weight | 84.2 kg (185 lb 10 | 06/18/2019 6:17 AM | | | | oz) | PST | | + + + + + | Height | 175.3 cm (5' 9") | 06/18/2019 6:17 AM | | | | | PST | | + + + + + | Body Mass Index | 27.41 | 06/18/2019 6:17 AM | | | | | PST [...] documented as of this encounter Discharge Instructions Instructions Vivienne Limon RN - 06/18/2019You may shower tomorrow if you wish, but please do not submerse the incision under water. You can participate in simple daily activities as tolerated but please refrain from lifting more than 5 pounds for now and limit overhead lift ing to less than 1-2 pounds. Please call if you develop a fever or have other questions or c oncerns. Recovery After Procedural Sedation You have been given medicine by vein to make you sleep during your surgery. This may have i ncluded both a pain medicine and sleeping medicine. Most of the effects have worn off. But y ou may still have some drowsiness for the next 6 to 8 hours. Home care Follow these guidelines when you get home: For the next 8 hours, you should be watched by a responsible adult. This person should m lucy sure your condition is not getting worse. Don't drink any alcoholfor the next [address], operate dangerous machinery, or make important business or personal decisio nsduring the next 24 hours. Note: Your healthcare provider may tell you not to take any medicine by mouth for pain or s leep in the next 4 hours. These medicines may react with the medicines you were given in the hospital. This could cause a much stronger response than usual. Follow-up care Follow up with your healthcare provider if you are not alert and back to your usual level o f activity within 12 hours. When to seek medical advice Call your healthcare provider right away if any of these occur: Drowsiness gets worse Weakness or dizziness gets worse Repeated vomiting You can't be awakened Date Last Reviewed: 05/01/201619996545-0670 [employer]. [address] [place] [address], [place] [id number]. All righ ts reserved. This information is not intended as a substitute for professional medical care. Always follow your healthcare professional's instructions. documented in this encounter Medications at Time of [...] tablets by | 60 | 0 | 06/18/20 | | | HYDROcodone-acetamin | mouth every 4 hours | tablet | | 19 | | | ophen (NORCO) | as needed for Pain. | | | | | | 7.5-325 mg per | | | | | | | tablet | | | | | | + + + +---------+ + + | potassium chloride | Take 10 mEq by mouth | | 0 | 05/28/20 | | | (KLOR-CON) 10 mEq | 2 times daily (with | | | 19 | | | CR tablet | breakfast & | | | | | | | dinner). | | | | | + + [...] + +--------+ + + + | FL ZOFIA STATS NO | Routin | 06/18/2019 | | Results for this | | CHARGE | e | 9:28 AM | | procedure are in the | | | | PST | | results section. | + +--------+ + + + | PLACEMENT SPINAL | | 06/18/2019 | S/P spinal fusion | | | CORD STIMULATOR | | 7:49 AM | Lumbar | | | | | PST | radiculopathy | | | | | | Failed back syndrome | | + +--------+ + + + +---+--------+ | | Case | | | Notes | | | | | | Specia | | | lty | | | Care | | | Needed | | | : | | | NoInst | | | rument | | | s/Spec | | | ial | | | Equipm | | | ent: | | | C-arm | | | Positi | | | on/Seq | | | uence: | | | | | | ProneT | | | able: | | | Jackso | | | n [place] | | | Frame | +---+--------+ | | | | | Specia | | | l | | | Needs | | | Open | | | or | | | MIS: | | | OpenRE | | | P: | | | Amadeo | | | | | | Hinchm | | | an - | | | NevroI | | | mplant | | | s: | | | Spinal | | | Cord | | | Stimul | | | atorIM | | | PLANTS | | | IN | | | ALIX | | | 'S | | | OFFICE | +---+--------+ + +--------+ +---+ + | POC GLUCOSE | Routin | 06/18/2019 | | Results for this | | | e | 6:59 AM | | procedure are in the | | | | PST | | results section. | + +--------+ +---+ + documented in this encounter Results FL C-Arm Stats No Charge (06/18/2019 9:28 AM PST) + + | Specimen | + + | | + + + + + | Narrative | Performed At | + + + | This exam has been auto-finalized. It was entered for statistical | [facility] | | purposes only. | | + + + + +---------+ + + | Performing | Address | City/State/Zipcode | Phone Number | | Organization | | | | + +---------+ + + | [facility] | | | | + +---------+ + + POC Glucose (06/18/2019 6:59 AM PST) + +-------+ + + + | Component | Value | Ref Range | Performed | Pathologist | | | | | At | Signature | + +-------+ + + + | Glucose, | 92 | 70 - 109 mg/dL | [facility] | | | POC | | | [facility] | | [...] + + + + + | [facility] | [address] | [place] | [phone] | | [facility] | | [address] | | | - LABORATORY | | | | + + + + + documented in this encounter Visit Diagnoses + + | Diagnosis | + + | S/P spinal fusion Arthrodesis status | + + | Lumbar radiculopathy Thoracic or lumbosacral neuritis or radiculitis, unspecified | + + | Failed back syndrome Other unspecified back disorder | + + documented in this encounter Admitting Diagnoses + + | Diagnosis | + + | S/P spinal fusion Arthrodesis status | + + | Lumbar radiculopathy Thoracic or lumbosacral neuritis or radiculitis, unspecified | + + | Failed back syndrome Other unspecified back disorder | + + documented in this encounter Administered Medications + +--------+ +--------+------+------+ | Medication Order | MAR | Action | Dose | Rate | Site | | | Action | Date | | | | + +--------+ +--------+------+------+ | acetaminophen (TYLENOL) tablet | Given | 06/18/20 | 650 mg | | | | 650 mg 650 mg, Oral, ONCE, Josefa | | 19 7:04 | | | | | 06/18/19 at 0645, For 1 dose, | | AM PST | | | | | Pre-op | | | | | | + +--------+ +--------+------+------+ + +---+ | | | + +---+ | albuterol-ipratropium 2.5-0.5 | | | mg/3 mL nebulizer solution 3 mL | | | 3 mL, Nebulization, ONCE PRN, | | | Wheezing, Starting [facility] 06/18/19 at | | | 0623, For 1 dose, Pre-op | | + +---+ | | | + +---+ | albuterol-ipratropium 2.5-0.5 | | | mg/3 mL nebulizer solution 3 mL | | | 3 mL, Nebulization, ONCE PRN, | | | Wheezing, Shortness of Breath, | | | Starting [facility] 06/18/19 at 0926, For | | | 1 dose, Recovery/Phase I | | + +---+ | | | + +---+ + +-------+ +---------+---+ + | bacitracin injection PRN, | Given | 06/18/20 | 50,000 | | Surgical | | Starting [facility] 06/18/19 at 0850, | | 19 8:50 | Units | | Site | | Intra-op | | AM PST | | | | + +-------+ +---------+---+ + + +---+ | | | + +---+ | dextrose 50% injection 12.5-25 | | | g 12.5-25 g, Intravenous, EVERY | | | 15 MIN PRN, Low Blood Sugar, Give | | | 12.5g (25 mL) IV if blood | | | glucose 50-69 mg/dL. Give 25g | | | (50 mL) IV if blood glucose < 50, | | | Starting [facility] 06/18/19 at 0623, | | | Repeat in 15 min if blood glucose | | | remains < 70 mg/dL. Repeat | | | blood glucose in 30 min once | | | blood glucose > 70., Pre-op | | + +---+ | | | + +---+ | dextrose 50% injection 12.5-25 | | | g 12.5-25 g, Intravenous, EVERY | | | 15 MIN PRN, Low Blood Sugar, For | | | hypoglycemia. Give 12.5g (25ml) | | | IV if blood glucose 50-69 | | | mg/dL. Give 25g (50ml) IV if | | | blood glucose < 50, Starting Josefa | | | 12/5/19 at 0926, Give over 2 min. | | | Repeat in 15 min if blood | | | glucose remains < 70 mg/dL. | | | Repeat blood glucose in 30 min | | | once blood glucose > 70., | | | Recovery/Phase I | | + +---+ | | | + +---+ | ePHEDrine (AKOVAZ) 50 mg/mL | | | injection 5 mg 5 mg, | | | Intravenous, EVERY 5 MIN PRN, if | | | SBP <90., Starting [facility] 06/18/19 at | | | 0926, Hold if HR > 100. Maximum | | | total dose 20mg., Recovery/Phase | | | I | | + +---+ | | | + +---+ + +-------+ +--------+---+---+ | fentaNYL (PF) injection 25-50 | Given | 06/18/20 | 25 mcg | | | | mcg 25-50 mcg, Intravenous, | | 19 10:39 | | | | | EVERY 5 MIN PRN, Pain, Initial | | AM PST | | | | | postop urgent pain or escalating | | | | | | | pain, Starting Jose[facility] 06/18/19 at | | | | | | | 0926, For 4 doses, (2 doses | | | | | | | maximum for opioid naive, 4 doses | | | | | | | maximum for opioid tolerant) | | | | | | | First dose must be lowest dose. | | | | | | | Use Pasero Sedation Scale. | | | | | | | [Opioid tolerant = One week or | | | | | | | longer, nsdfyc-enw-mpycf use of | | | | | | | at least the following DAILY | | | | | | | dose: 60mg oral morphine, 60mg | | | | | | | oral hydrocodone, 30mg oral | | | | | | | oxycodone, 8mg oral | | | | | | | hydromorphone, fentanyl patch | | | | | | | 25mcg/hr, or equivalent dose of | | | | | | | another opioid], Recovery/Phase I | | | | | | + +-------+ +--------+---+---+ + +---+ | | | + +---+ | glycopyrrolate (PAT) | | | injection 0.2 mg 0.2 mg, | | | Intravenous, PRN, Bradycardia, | | | For HR <50, Starting [facility] 06/18/19 | | | at 0926, For 2 doses, May repeat | | | one time after 1min, | | | Recovery/Phase I | | + +---+ | | | + +---+ | hydrALAZINE (APRESOLINE) | | | injection 5 mg 5 mg, | | | Intravenous, EVERY 20 MINUTES | | | PRN, For SBP > 180, DBP > 100, | | | Starting [facility] 06/18/19 at 0926, | | | Hold if HR > 100. Maximum total | | | dose 40 mg. Use labetalol first | | | if available., Recovery/Phase I | | + +---+ | | | + +---+ | HYDROmorphone (DILAUDID) | | | injection 0.2-0.4 mg 0.2-0.4 mg, | | | Intravenous, EVERY 5 MIN PRN, | | | Pain, Starting [facility] 06/18/19 at | | | 0926, First dose must be lowest | | | dose, can increase subsequent | | | doses by 0.2mg within dosing | | | range. If patient meets opioid | | | tolerant definition, can start | | | with 0.4mg dose. [Maximum total | | | PACU dose 4mg] Use Pasero | | | Sedation Scale. [Opioid tolerant | | | = One week or longer, | | | lyfqfe-vmw-cssta use of at least | | | the following DAILY dose: 60mg | | | oral morphine, 60mg oral | | | hydrocodone, 30mg oral oxycodone, | | | 8mg oral hydromorphone, fentanyl | | | patch 25mcg/hr, or equivalent | | | dose of another opioid], | | | Recovery/Phase I | | + +---+ | | | + +---+ | labetalol (TRANDATE) 5 mg/mL | | | injection 5 mg 5 mg, | | | Intravenous, EVERY 5 MIN PRN, For | | | SBP > 180, DBP > 100, Starting | | | [facility] 06/18/19 at 0926, Hold if HR < | | | 60. Maximum total dose 300mg. | | | Notify anesthesia if patient | | | requires more than 50mg., | | | Recovery/Phase I | | + +---+ | | | + +---+ + +---------+ +--------+-------+---+ | lactated ringers (LR) infusion | New Bag | 06/18/20 | 1,000 | 100 | | | at 100 mL/hr, Intravenous, | | 19 7:01 | mLs | mL/hr | | | CONTINUOUS, Starting [facility] 06/18/19 | | AM PST | | | | | at 0645, Pre-op | | | | | | + +---------+ +--------+-------+---+ + +---+ | | | + +---+ | lactated ringers (LR) infusion | | | at 10-100 mL/hr, Intravenous, | | | CONTINUOUS, Starting [facility] 06/18/19 | | | at 0645, TKO. Use unless patient | | | is on dialysis., Pre-op | | + +---+ | | | + +---+ + +-------+ +--------+---+ + | lidocaine 1%-EPINEPHrine | Given | 06/18/20 | 10 mLs | | Surgical | | 1:100,000 injection PRN, | | 19 8:28 | | | Site | | Starting [facility] 06/18/19 at 0828, | | AM PST | | | | | Intra-op | | | | | | + +-------+ +--------+---+ + + +---+ | | | + +---+ | methocarbamol (ROBAXIN) 1,000 | | | mg in sodium chloride 0.9% 100 mL | | | IVPB 1,000 mg, Intravenous, | | | Administer over 45 Minutes, ONCE | | | PRN, Muscle spasms, Starting [facility] | | | 06/18/19 at 1110, For 1 dose, Give | | | IV dose immediately postop, | | | Post-op/Phase II | | + +---+ | | | + +---+ | methocarbamol (ROBAXIN) tablet | | | 1,500 mg 1,500 mg, Oral, EVERY 6 | | | HOURS PRN, Muscle spasms, | | | Starting 06/20/19 at 0000, | | | Post-op/Phase II | | + +---+ | | | + +---+ | ondansetron (ZOFRAN) injection | | | 4 mg 4 mg, Intravenous, ONCE | | | PRN, Nausea, Starting [facility]fa 06/18/19 | | | at 0926, For 1 dose, | | | Recovery/Phase I | | + +---+ | | | + +---+ | sodium chloride 0.9% (NS) | | | infusion at 10-100 mL/hr, | | | Intravenous, CONTINUOUS, Starting | | | [facility]fa 06/18/19 at 0645, TKO. Use | | | this instead of LR if patient is | | | on dialysis., Pre-op | | + +---+ | | | + +---+ documented in this encounter
--- OUTSIDE RECORDS SUMMARY | ~2019-11-22 | XMS | Encounter Summary ---
Demographics + + + | Address | [address] | | | [place] [address] | + + + | Home Phone [...] Team Providers + +------+ + | Care Refractory Mixer Name | Role | Phone | [...] | | [address] | [place] [address] | | | | | [place], [place] | [phone] | | | | | [address] | | | | | | [phone] | | | +--------+ + + + [...]
--- OUTSIDE RECORDS SUMMARY | ~2019-11-22 | XMS | Encounter Summary ---
Demographics + + + | Address | [address] | | | [place] [address] | + + + | Home Phone | | + + + | Preferred Language | Unknown | + + + | Marital Status | | + + + | Caodaism Affiliation | 1077 | + + + | Race | Unknown | + + + | Ethnic Group | Unknown | + + + Author + + + | Author | [facility] | | | and [place] | + + + | Organization | [facility] | | | [...] Team Providers + +------+ + | Care Knockup Worker Name | Role | Phone | + +------+ + | Hay Greco MD | PCP | | + +------+ + Encounter Details +--------+ + + + + | Date | Type | Department | Care Team | Description | +--------+ + + + + | 04/22/ | Episode | [facility] | Dulce Cunningham, | | | 2017 | Changes | NEUROSURGERY [address] | Appraisal Manager | | | | | [address] | | | | | | [place] | | | | | | [address] | | | | | | [phone] | | | +--------+ + + + [...]
--- OUTSIDE RECORDS SUMMARY | ~2019-11-22 | XMS | Encounter Summary ---
Demographics + + + | Address | [address] | | | [place] [address] | + + + | Home Phone | | + + + | Preferred Language | Unknown | + + + | Marital Status | | + + + | Hindu Affiliation | 1077 | + + + | Race | Unknown | + + + | Ethnic Group | Unknown | + + + Author + + + | Author | [facility] | | | and [place] | + + + | Organization | [facility] | | | and [...] Team Providers + +------+ + | Care Labor Relations Specialist Name | Role | Phone | [...] | Specialty | Physical | Diagnoses | Kemal Damian | [facility] | | | Services | Therapy | DDD | [address] | [facility]OSP[facility] | | | Required | | (degenerativ | [address] | PHYSICAL | | | | | e disc | [place], | THERAPY [address]25 | | | | | disease), | [place] [address] | [place] | | | | | lumbar | Phone: | [place], [place] | | | | | Spondylolist | [phone] | [address] | | | | | hesis of | Fax: | Phone: | | | | | lumbar | [phone] | [phone] | | | | | region | | Fax: | | | | | Facet | | [phone] | | | | | arthropathy, | | | | | | | lumbar | | | | | | | Lumbar | | | | | | | radicular | | | | | | | pain S/P | | | | | | | lumbar | | | | | | | fusion | | | +--------+ + + + + + Encounter Details +--------+ + + + + | Date | Type | Department | Care Team | Description | +--------+ + + + + | 08/22/ | Orders Only | [facility] | Kemal Damian MD | DDD (degenerative | | 2018 | | NEUROSURGERY [address] | [address] | disc disease), | | | | [address] | [place] [address] | lumbar (Primary Dx); | | | | [place], [place] | [phone] | Spondylolisthesis | | | | [address] | | of lumbar region; | | | | [phone] | | Facet arthropathy, | | | | | | lumbar; Lumbar | | | | | | radicular pain; S/P | | | | | | lumbar fusion | +--------+ + + + + [...] as of this encounter Plan of Treatment + + +--------+ + + | Name | Type | Priori | Associated Diagnoses | Order Schedule | | | | ty | | | + + +--------+ + + | [facility] | Outpatient | Routin | DDD (degenerative | Ordered: 08/23/2017 | | Hospital Physical | Referral | e | disc disease), | | | Therapy, External - | | | lumbar | | | [facility]B Referral | | | Spondylolisthesis of | | | | | | lumbar region | | | | | | Facet arthropathy, | | | | | | lumbar Lumbar | | | | | | radicular pain S/P | | | | | | lumbar fusion | | + + +--------+ [...]
--- OUTSIDE RECORDS SUMMARY | ~2019-11-22 | XMS | Encounter Summary ---
Demographics + + + | Address | [address] | | | [place] [address] | + + + | Home Phone | | + + + | Preferred Language | Unknown | + + + | Marital Status | | + + + | Uatsdin Affiliation | 1077 | + + + [...] Team Providers + +------+ + | Care Head And Neck Surgeon Name | Role | Phone | + +------+ + | Hay Greco MD | PCP | | + +------+ + Encounter Details +--------+ + + + + | Date | Type | Department | Care Team | Description | +--------+ + + + + | 10/14/ | Hospital | [facility] | Kemal Damian MD | | | 2013 | Encounter | MED CTR LAB[facility]ATORY | [address] | | | | | [address] | [place] [address] | | | | | [place] | [phone] | | | | | [address] | | | | | | [phone] | | | +--------+ + + + [...]
--- OUTSIDE RECORDS SUMMARY | ~2019-11-22 | XMS | Encounter Summary ---
Demographics + + + | Address | [address] | | | [place] [address] | + + + | Home Phone | | + + + | Preferred Language | Unknown | + + + | Marital Status | | + + + | Mormonism Affiliation | PRE | + + + | Race | White | + + + | Ethnic Group | Not or | + + + Author + + + | Author | [facility] | + + + | Organization | [facility] | + + + | Address | Unknown | + + + | Phone | Unavailable | + + + Support + + + + + | Name | Relationship | Address | Phone | + + + + + | Ricarda Johnson | ECON | [address] | | | | | [place] | | | | | [address] | | + + + + + Care Team Providers + +------+ + | Care Ict Help Desk Officer Name | Role | Phone | + +------+ + | Hay Greco MD | PCP | | + +------+ + Encounter Details +--------+ + + + + | Date | Type | Department | Care Team | Description | +--------+ + + + + | 01/01/ | Abstract | [facility] | [place], | | | 2011 | | [place] [facility] [address] | [address] | | | | | Debbie Mock | [address] | | | | | Mailcode: Center | [place], [place] | | | | | for Health and | [address] | | | | | [facility], [facility] [address] | [phone] | | | | | [place], [place] | | | | | | [address] | | | | | | [phone] | | | +--------+ + + + [...]
--- OUTSIDE RECORDS SUMMARY | ~2019-11-22 | XMS | Encounter Summary ---
Demographics + + + | Address | [address] | | | [place] [address] | + + + | Home Phone [...] | Author | [facility] | | | and [place] | + + + | Organization | [facility] | | | and [...] Team Providers + +------+ + | Care Compliance Engineer Products Name | Role | Phone | + [...] | | | | | | | SCS trial | | | | | | | with Jami | | | | | | | Procedures | | | | | | | SCS | | | +--------+--------+ + + + + Encounter Details +--------+---------+ + + + | Date | Type | Department | Care Team | Description | +--------+---------+ + + + | 03/25/ | Surgery | [facility] | Pj Riggs | SCS | | 2019 | | MED CTR IR INTRA OP | MD Lucrecia [address] | | | | | [address] | [place] | | | | | [place] | [address] | | | | | [address] | | | | | | [phone] | | | +--------+---------+ + + + [...] + + + | Blood Pressure | 158/68 | 03/25/2019 3:30 PM | | | | | PDT | | + + + + + | Pulse | 64 | 03/25/2019 3:30 PM | | | | | PDT | | + + + + + | Temperature | 36.7 C (98.1 F) | 03/25/2019 11:20 AM | | | | | PDT | | + + + + + | Respiratory Rate | 16 | 03/25/2019 3:30 PM | | | | | PDT | | + + + + + | Oxygen Saturation | 100% | 03/25/2019 3:30 PM | | | | | PDT | | + + + + + | Inhaled Oxygen | - | - | | | Concentration | | | | + + + + + | Weight | 85.1 kg (187 lb 9.8 | 03/25/2019 11:20 AM | | | | oz) | PDT | | + + + + + | Height | 175.3 cm (5' 9") | 03/25/2019 11:20 AM | | | | | PDT | | + + + + + | Body Mass Index | 27.71 | 03/25/2019 11:20 AM | | | | | PDT [...] as of this encounter Discharge Instructions Instructions Wanda Grimm RN - 03/25/2019 Recovery After Procedural Sedation (Adult) You have been given medicine by vein to make you sleep during your procedure. This may have included both a pain medicine and sleeping medicine. Most of the effects have worn off. But you may still have some drowsiness for the next 6 to 8 hours. Home care Follow these guidelines when you get home: For the next 8 hours, you should be watched by a responsible adult. This person should m lucy sure your condition is not getting worse. Don't drink any alcoholfor the next [address], operate dangerous machinery,make important business or personal decisions , or sign legal documentsduring the next 24 hours. Note: Your healthcare [...] You can't be awakened Date Last Reviewed: 05/01/201619994407-0397 [employer]. [address] [place] [address], [place] [address]. All righ ts reserved. This information is [...] | amLODIPine | | | 0 | // | | | (NORVASC) 5 mg | [...] + + + +---------+ + + | cephalexin | Take 1 capsule by | 40 | 0 | 03/25/20 | | | (KEFLEX) 500 mg | mouth 4 times daily. | capsule | | 19 | 9 | | capsule | | [...] + +--------+ + + + | XR THORACOLUMBAR | STAT | 03/25/2019 | | Results for this | | SPINE 1 VW | | 3:46 PM | | procedure are in the | | | | PDT | | results section. | + +--------+ + + + | INJECTION - EPIDURAL | | 03/25/2019 | SCS trial with | | | STEROID CERVICAL / | | 12:54 PM | Nevro | | | THORACIC ([id number]) | | PDT | | | + +--------+ + + + +---+--------+ | | Case | | | Notes | | | SCS | +---+--------+ | | | | | Specia | | | l | | | Needs | | | CHECK | | | IN AT | | | 1130 | +---+--------+ documented in this encounter Results XR Thoracolumbar Spine 1 Vw (03/25/2019 3:46 PM PDT) + + | Specimen | + + | | + + + + + | Narrative | Performed At | + + + | CLINICAL INFORMATION: Spinal Cord Stimulator Lead Placement. | [facility] | | COMPARISON: Lumbar spine radiographs 03/25/2018. Chest radiograph | | | 06/04/2017. FINDINGS: AP view of the thoracolumbar spine. | | | Unchanged leftward curvature of the lumbar spine and rightward | | | thoracic curvature. Stable fusion changes at L2-L4. Moderate | | | degenerative disc disease at L1-L2. Spinal stimulator wires with | | | the lead tips at the superior endplate of T11 and inferior endplate | | | of T8. Focal scarring/atelectasis at the left lung base, stable | | | IMPRESSION - Spinal stenosis or wires above. Dictated and Signed | | | by: Jonathan Arora MD Electronically signed: 03/25/2019 6:07 PM | | | | | + + + + + | Procedure Note | + + | Reji, Rad Results In - 03/25/2019 6:10 PM PDT | | CLINICAL INFORMATION: Spinal Cord Stimulator Lead Placement. | | | | COMPARISON: Lumbar spine radiographs 03/25/2018. Chest radiograph 06/04/2017. | | | | FINDINGS: | | AP view of the thoracolumbar spine. | | | | Unchanged leftward curvature of the lumbar spine and rightward thoracic | | curvature. | | | | Stable fusion changes at L2-L4. Moderate degenerative disc disease at L1-L2. | | | | Spinal stimulator wires with the lead tips at the superior endplate of T11 and | | inferior endplate of T8. | | | | Focal scarring/atelectasis at the left lung base, stable | | | | IMPRESSION - Spinal stenosis or wires above. | | | | Dictated and Signed by: Jonathan Arora MD | | Electronically signed: 03/25/2019 6:07 PM | + + + +---------+ + + | Performing | Address | City/State/Zipcode | Phone Number | | Organization | | | | + +---------+ + + | [facility] | | | | + +---------+ + + documented in this encounter Visit Diagnoses Not on filedocumented in this encounter Administered Medications + + + +-------+ +------+ | Medication Order | MAR | Action | Dose | Rate | Site | | | Action | Date | | | | + + + +-------+ +------+ | ceFAZolin (ANCEF, KEFZOL) 100 | New | 03/25/20 | 1.5 g | 30 mL/hr | | | mg/mL IV syringe 1.5 g 1.5 g, | Syringe/ | 19 1:22 | | | | | Intravenous, Administer over 30 | Cartridg | PM PDT | | | | | Minutes, Prior to Incision, | e | | | | | | Starting 03/25/19 at 1132, For | | | | | | | 1 dose, Pre-op, Indications: | | | | | | | Surgical Prophylaxis | | | | | | + + + +-------+ +------+ +---+---+ | | | +---+---+ + +-------+ +--------+---+---+ | fentaNYL (PF) injection PRN, | Given | 03/25/20 | 25 mcg | | | | Starting 03/25/19 at 1313 | | 19 1:27 | | | | | | | PM PDT | | | | + +-------+ +--------+---+---+ +-------+ +--------+---+---+ | Given | 03/25/20 | 25 mcg | | | | | 19 1:16 | | | | | | PM PDT | | | | +-------+ +--------+---+---+ | Given | 03/25/20 | 25 mcg | | | | | 19 1:13 | | | | | | PM PDT | | | | +-------+ +--------+---+---+ +---+---+ | | | +---+---+ + +-------+ +------+---+---+ | midazolam (VERSED) 1 mg/mL | Given | 03/25/20 | 1 mg | | | | injection PRN, Starting Wed | | 19 1:27 | | | | | 03/25/19 at 1313 | | PM PDT | | | | + +-------+ +------+---+---+ +-------+ +------+---+---+ | Given | 03/25/20 | 1 mg | | | | | 19 1:19 | | | | | | PM PDT | | | | +-------+ +------+---+---+ | Given | 03/25/20 | 1 mg | | | | | 19 1:16 | | | | | | PM PDT | | | | +-------+ +------+---+---+ +---+---+ | | | +---+---+ + +---------+ +--------+ +---+ | sodium chloride 0.9% (NS) | New Bag | 03/25/20 | 1,000 | 50 mL/hr | | | infusion at 50 mL/hr, | | 19 11:58 | mLs | | | | Intravenous, CONTINUOUS, Starting | | AM PDT | | | | | 03/25/19 at 1200, OK to use | | | | | | | implantable port., Pre-op | | | | | | + +---------+ +--------+ +---+ +---+---+ | | | +---+---+ documented in this encounter
--- OUTSIDE RECORDS SUMMARY | ~2019-11-22 | XMS | Encounter Summary ---
Demographics + + + | Address | [address] | | | [place] [address] | + + + | Home Phone | | + + + | Preferred Language | Unknown | + + + | Marital Status | | + + + | Rastafari Affiliation | 1077 | + + + [...] Team Providers + +------+ + | Care Tdp Displays Analyst Name | Role | Phone | [...] Description | +--------+---------+ + + + | 10/22/ | Surgery | [facility] | Kemal Damian MD | L2-3, L3-4 | | 2014 | | MED CTR OR INTRA OP | [address] | TRANSFORAMINAL | | | | [address] | [place] [address] | LUMBAR INTERBODY | | | | [place], [place] | [phone] | FUSION | | | | [address] | | | | | | [phone] | | | +--------+---------+ + + + [...] be sent through Care Everywhere.BACK EXERCISES, LUMBAR (GUINEAN)AFTER BACK SURGERY: GOING HOME (GUINEAN)CONSTIPATION (ADULT) (GUINEAN)docum ented in this encounter Medications at Time [...] might be different from t he original. [facility] PROGRESS NOTE Pt. Name/Age/: Cosmo Johnson 68 y.o. 1945 Med. Record Number: [id number] Date of admission: 10/22/2013 Subjective: The patient [...] Lamar PA - 10/23/2013 7:28 AM PDT [facility] PROGRESS NOTE Pt. Name/Age/: Cosmo Johnson 68 y.o. 1945 Med. Record Number: [id number] Date of admission: 10/22/2013 Subjective: The patient [...] | | Lateral | | e | ([facility]) High | | | | | | [...] spinal fusion hardware at the level of L8stsvyky L4 is noted, with disc | | [...] | There is decreased disc height at D97-T4wgs L4-5, and posteriorly at L5-S1.IMPRESSION | | [...] + + | Performing | Address | City[facility]State[facility] | Phone Number | | Organization | | | | + +---------+ + + | MISCELLANEOUS LAB | | | [phone] | + +---------+ + + | MISCELANIOUS LAB | | | [phone] | + +---------+ + + [place] C-Arm [...] 5.2 | 4.0 - 11.0 K/uL | [facility] [...] + | [facility] | [address] | [place], [place] | [phone] | | [facility] | | [address] | | | - LABORATORY | | | | + + + + + | [facility] | [address] | [place], [place] | | | [facility] | | [address], [facility] | | | - LABORATORY | | [...] not | 49 (L)Comment: | >=60 | [facility] | | | | GLOMERULAR FILTRATION | mL/min/1.73m2 | [facility] | | | CONGOLESE | RATE,ESTIMATED | | MEDICAL | | | | mL/min/1.70k5Qdat than | | CENTER - | | [...] | 9.6 | 8.3 - 10.5 | [facility] | | | | | mg/dL | [facility] | | | | | | [...] | + + + + + | [facility] | [address] | [place] | [phone] | | [facility] | | [address] | | | - LABORATORY | | | | + + + + + | [facility] | [address] | [place], [place] | | | [facility] | | [address] | | | - LABORATORY | | | | + + + + + documented in this encounter Visit Diagnoses + + | Diagnosis | + + | Degeneration of lumbar or lumbosacral intervertebral disc | + + | Acquired spondylolisthesis | + + | Lumbosacral spondylosis without myelopathy | + + | Thoracic or lumbosacral neuritis or radiculitis, unspecified | + + documented in this encounter Administered Medications + +--------+ +--------+------+ + | Medication Order | MAR | Action | Dose | Rate | Site | | | Action | Date | | | | + +--------+ +--------+------+ + | bupivacaine 0.5%-epinephrine | Given | 10/23/19 | 20 mLs | | Surgical | | 1:200,000 0.5-1:261074 % | | 14 9:08 | | | Site | | injection PRN, Starting Josefa | | AM PDT | | | | | 10/22/13 at 0908, Intra-op | | | | | | + +--------+ +--------+------+ + +---+---+ | | | +---+---+ documented in this encounter
--- OUTSIDE RECORDS SUMMARY | ~2019-11-22 | XMS | Encounter Summary ---
Demographics + + + | Address | [address] | | | [place] [address] | + + + | Home Phone | | + + + | Preferred Language | Unknown | + + + | Marital Status | | + + + | Restoration Affiliation | PRE | + + + | Race | White | + + + | Ethnic Group | Not or | + + + Author + + + | Author | [facility] | + + + | Organization | [facility] | + + + | Address | Unknown | + + + | Phone | Unavailable | + + + Support + + + + + | Name | Relationship | Address | Phone | + + + + + | Ricarda Johnson | ECON | [address] | | | | | [place] | | | | | [address] | | + + + + + Care Team Providers + +------+ + | Care String Laster Name | Role | Phone | + +------+ + | Hay Greco MD | PCP | | + +------+ + Encounter Details +--------+ + + + + | Date | Type | Department | Care Team | Description | +--------+ + + + + | 08/01/ | Results | LAB REFERRED TESTS | Cy Toribio | | | 2011 | Only | [address] [facility] | [phone] | | | | | [address] | | | | | | [place], [place] | | | | | | [address] | | | +--------+ + + + [...] | + +--------+ + + + | EJECTION FRACTION | Routin | 08/01/2011 | | Results for this | | | e | 4:58 PM | | procedure are in the | | | | PST | | results section. | + +--------+ + + + documented in this encounter Results EJECTION FRACTION (08/01/2011 4:58 PM PST) + + + + + + | Component | Value | Ref Range | Performed | Pathologist | | | | | At | Signature | + + + + + + | EJECTION | 55 - 60%Comment: EF | | [facility] | | | FRACTION | Recorded from | | OF | | | | Transthoracic | | CARDIOLOGY | | | | Echocardiogram | | | | + + + + + + + + | Specimen | + + | | + + + + + + + | Performing | Address | City/State/Zipcode | Phone Number | | Organization | | | | + + + + + | [facility] | [address] | [place], [place] | | | CARDIOLOGY | [address] | [address] | | + + + + + documented in this encounter Visit Diagnoses Not on filedocumented in this encounter"
--- OUTSIDE RECORDS SUMMARY | ~2019-11-22 | XMS | Encounter Summary ---
Demographics + + + | Address | [address] | | | [place] [address] | + + + | Home Phone [...] + + | Author | [facility] | + + + | Organization | [facility] | + + + | Address | Unknown | + + + | Phone | Unavailable | + + + Support + + + + + | Name | Relationship | Address | Phone | + + + + + | Ricarda Johnson | ECON | [address] | | | | | [place] | | | | | [address] | | + + + + + Care Team Providers + +------+ + | Care Objective C Developer Name | Role | Phone | + +------+ + | Hay Greco MD | PCP | | + +------+ + Encounter Details +--------+ + + + + | Date | Type | Department | Care Team | Description | +--------+ + + + + | 12/11/ | Abstract | Digestive Health | Edgar Hampton, | | | 2012 | | [place] [facility] [address] | [address] | | | | | [place] | [address] | | | | | Mailcode: Center | [place], [place] | | | | | for Health and | [address] | | | | | [facility] | [phone] | | | | | [place], [place] | | | | | | [address] | | | | | | [phone] | | | +--------+ + + + [...]
--- OUTSIDE RECORDS SUMMARY | ~2019-11-22 | XMS | Encounter Summary ---
Demographics + + + | Address | [address] | | | [place] [address] | + + + | Home Phone [...] + + | Author | [facility] | + + + | Organization | [facility] | + + + | Address | Unknown | + + + | Phone | Unavailable | + + + Support + + + + + | Name | Relationship | Address | Phone | + + + + + | Ricarda Johnson | ECON | [address] | | | | | [place] | | | | | [address] | | + + + + + Care Team Providers + +------+ + | Care Second Time Worker Name | Role | Phone | + +------+ + | Hay Greco MD | PCP | | + +------+ + Reason for Visit + + + | Reason | Comments | + + + | Conference Report | GI Oncology Conference Recommendations | + + + Encounter Details +--------+ + + + + | Date | Type | Department | Care Team | Description | +--------+ + + + + | 07/26/ | Documentati | Digestive Health | Edgar Hampton, | Conference Report | | 2011 | on | Center at [facility] [address] | [address] [facility] | (GI Oncology | | | | Debbie Mock | [address] | Conference | | | | Mailcode: [facility] | [place], [place] | Recommendations) | | | | for Health and | [address] | | | | | [facility] [address] | [phone] | | | | | [place], [place] | | | | | | [address] | | | | | | [phone] | | | +--------+ + + + [...] | + + | Rectal cancer (HCC) - Primary Malignant neoplasm of rectum | + + | Sacral lesion Disorders of sacrum | + + documented in this encounter"
--- OUTSIDE RECORDS SUMMARY | ~2019-11-22 | XMS | Encounter Summary ---
Demographics + + + | Address | [address] | | | [place] [address] | + + + | Home Phone | | + + + | Preferred Language | Unknown | + + + | Marital Status | | + + + | Temple Affiliation | 1077 | + + + | Race | Unknown | + + + | Ethnic Group | Unknown | + + + Author + + + | Author | [facility] | | | and [place] | + + + | Organization | [facility] | [...] Team Providers + +------+ + | Care Thermodynamics Engineer Name | Role | Phone | + +------+ + | Hay Greco MD | PCP | | + +------+ + Encounter Details +--------+ + + + + | Date | Type | Department | Care Team | Description | +--------+ + + + + | 01/18/ | [facility] | [facility] | Kirk Javier | Spondylolisthesis of | | 2014 | Encounter | MED CTR XRAY [address] | lumbar region; | | | | [place] | [address] | 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
--- OUTSIDE RECORDS SUMMARY | ~2019-11-22 | XMS | Encounter Summary ---
Demographics + + + | Address | [address] | | | [place] [address] | + + + | Home Phone | | + + + | Preferred Language | Unknown | + + + | Marital Status | | + + + | Amish Affiliation | PRE | + + + | Race | White | + + + | Ethnic Group | Not or | + + + Author + + + | Author | [facility] | + + + | Organization | [facility] | + + + | Address | Unknown | + + + | Phone | Unavailable | + + + Support + + + + + | Name | Relationship | Address | Phone | + + + + + | Ricarda Johnson | ECON | [address] | | | | | [place] | | | | | [address] | | + + + + + Care Team Providers + +------+ + | Care Husker Operator Name | Role | Phone | + +------+ + | Hay Greco MD | PCP | | + +------+ + Encounter Details +--------+ + + + + | Date | Type | Department | Care Team | Description | +--------+ + + + + | 03/05/ | Abstract | Digestive Health | Edgar Hampton, | | | 2011 | | [place] [facility] [address] | [address] | | | | | Debbie Mock | [address] | | | | | Mailcode: Center | [place], [place] | | | | | for Health and | [address] | | | | | [facility] 2 | [phone] | | | | | [place], [place] | | | | | | [address] | | | | | | [phone] | | | +--------+ + + + [...]
--- OUTSIDE RECORDS SUMMARY | ~2019-11-22 | XMS | Encounter Summary ---
Demographics + + + | Address | [address] | | | [place] [address] | + + + | Home Phone | | + + + | Preferred Language | Unknown | + + + | Marital Status | | + + + | Orthodoxy Affiliation | 1077 | + + + | Race | Unknown | + + + | Ethnic Group | Unknown | + + + Author + + + | Author | [facility] | | | and [place] | + + + | Organization | [facility] | | | and [...] Team Providers + +------+ + | Care Book Salesman Name | Role | Phone | + [...] | | | | | | | PA | | | | | | | ARTHRODESIS | | | | | | | POSTERIOR/PO | | | | | | | STEROLATERAL | | | | | | | LUMBAR PA | | | | | | | LUMBAR SPINE | | | | | | | | | | | | | | FUSION,ANTER | | | | | | | APPRCH PA | | | | | | | [...] Description | +--------+---------+ + + + | 06/19/ | Surgery | [facility] | Kemal Damian MD | L1-2 LAIF w/ Lateral | | 2017 | | MED CTR OR INTRA OP | [address] | Plating | | | | [address] | [place] [address] | | | | | [place] | [phone] | | | | | [address] | | | | | | [phone] | | | +--------+---------+ + + + [...] + + + | Blood Pressure | 138/66 | 06/21/2017 8:09 AM | | | | | PST | | + + + + + | Pulse | 72 | 06/21/2017 8:09 AM | | | | | PST | | + + + + + | Temperature | 36.1 C (97 F) | 06/21/2017 8:09 AM | | | | | PST | | + + + + + | Respiratory Rate | 18 | 06/21/2017 8:09 AM | | | | | PST | | + + + + + | Oxygen Saturation | 92% | 06/21/2017 8:09 AM | | | | | PST | | + + + + + | Inhaled Oxygen | - | - | | | Concentration | | | | + + + + + | Weight | 88.1 kg (194 lb 3.6 | 06/19/2017 9:58 PM | | | | oz) | PST | | + + + + + | Height | 175.3 cm (5' 9") | 06/19/2017 1:44 PM | | | | | PST | | + + + + + | Body Mass Index | 28.68 | 06/19/2017 1:44 PM | | | | | PST [...] + documented as of this encounter Discharge Summaries Kemal Damian MD - 06/21/2017 7:17 AM PSTFormatting of this note might be different from t arturo original. [facility] NEUROSURGERY DISCHARGE SUMMARY Patient Name: Cosmo Johnson Patient : 1945 PCP: Hay Greco Date of Admission: 06/19/2017 Date of Discharge: 06/21/2017 Primary Discharge Dx: DDD (degenerative disc disease), lumbar (M51.36) Facet arthropathy, lumbar (M12.88) Spinal stenosis of lumbar region Lumbar foraminal stenosis Lumbar radicular pain (M54.16) S/P lumbar fusion (Z98.1) Secondary Discharge Dx(s): Patient Active Problem List Diagnosis DDD (degenerative disc disease), lumbar Spondylolisthesis of lumbar region Facet arthropathy, lumbar Lumbar radicular pain Rectal cancer High cholesterol S/P lumbar fusion Lumbar spinal stenosis - above fusion L1/L2 CRI (chronic renal insufficiency) Procedures 1. Minimally invasive L1-2 anterior lumbar interbody arthrodesis 2. Anterior lumbar plating with Decade L1-2 3. PEEK interbody spacer L1-2 Hospital Course: Post op he has done well. He has worked well with therapy. Passing flatus and urinating w ell. Medically stable. Pain is controlled and tolerating pain medication well. Good suppo rt at home. Exam has remained stable Condition on Discharge: Stable Discharge Medications: Discharge Medications New Medications Details HYDROcodone-acetaminophen 7.5-325 mg per tablet Take 1-2 tablets by mouth every 4 hours as needed for Pain. aka: NORCO lactulose 10 g/15 mL solution Take 30 mLs by mouth 2 times daily. tiZANidine 4 mg tablet Take 1 tablet by mouth every 6 hours as needed for Muscle spasms. aka: ZANAFLEX Changed Medications Details morphine 30 mg ER tablet Take 1 tablet by mouth every 12 hours. What changed: medication strength how much to take when to take this reasons to take this aka: MS CONTIN Unchanged Medications Details acetaminophen 325 mg tablet Take 650 mg by mouth 3 times daily. Prn pain aka: TYLENOL amLODIPine 5 mg tablet Take 1 tablet by mouth Daily. aka: NORVASC GLUCOSAMINE CHONDROITIN ADV Tabs Take 1 tablet by mouth 3 times daily. hydroCHLOROthiazide 25 mg tablet Take 1 tablet by mouth Daily. potassium chloride 10 mEq CR tablet Take 20 mEq by mouth Daily. aka: SHORTY-JESÚS ; Current Discharge Medication List START taking these medications Medication Dose Last Dose Taken; HYDROcodone-acetaminophen (NORCO) 7.5-325 mg per tablet 1-2 tablets [ ] Take 1-2 tablets by mouth every 4 hours as needed for Pain. Qty: 120 tablet Refills: 0 Start date: 06/21/2017 lactulose 10 g/15 mL solution 30 mLs [ ] Take 30 mLs by mouth 2 times daily. Qty: 240 mL Refills: 3 Start date: 06/21/2017 tiZANidine (ZANAFLEX) 4 mg tablet 4 mg [ ] Take 1 tablet by mouth every 6 hours as needed for Muscle spasms. Qty: 90 tablet Refills: 3 Start date: 06/21/2017 CONTINUE these medications which have CHANGED or have been refilled with a NEW PRESCRIPTIO N Medication Dose Last Dose Taken; morphine (MS CONTIN) 30 mg ER tablet 30 mg [ ] Take 1 tablet by mouth every 12 hours. Qty: 60 tablet Refills: 0 Start date: 06/21/2017 CONTINUE these medications which have NOT CHANGED Medication Dose Last Dose Taken; acetaminophen (TYLENOL) 325 mg tablet 650 mg [ ] Take 650 mg by mouth 3 times daily. Prn pain amLODIPine (NORVASC) 5 mg tablet 1 tablet [ ] Take 1 tablet by mouth Daily. Refills: 0 hydroCHLOROthiazide 25 mg tablet 1 tablet [ ] Take 1 tablet by mouth Daily. Refills: 0 Misc Natural Products (GLUCOSAMINE CHONDROITIN ADV) TABS 1 tablet [ ] Take 1 tablet by mouth 3 times daily. potassium chloride (KLOR-CON) 10 mEq CR tablet 20 mEq [ ] Take 20 mEq by mouth Daily. Refills: 0 Follow-Up: 4 week C Bracing documented in this encounter Discharge Instructions Instructions Kirk Javier PA-C - 06/21/2017Discharge Instructions for Lumbar Fusio n You had a lumbar fusion. During this procedure, your doctor locked together (fused) some of the bones in your spine. This limits the movement of these bones to help relieve your pain. Here s what you need to know about home care following a spinal fusion. Activity Arrange your household to keep the items you need within reach. Remove electrical cords, throw rugs, and anything else that may cause you to fall. Use a walkeror handrails until your balance, flexibility, and strength improve. And re member to ask for help from others when you need it. Free up your hands so that you can use them to keep balance. Use a cherri pack, apron, or pockets to carry things. Be sure not to carry too much at once. Don t bend or twist at the waist, or raise your hands over your head for the first two weeks after your surgery. Don t lift anything heavier than 5 pounds for the first four weeks after surgery. Don t sit for more than30 to 45 minutes at a time. Take frequent short walks. They a re the mccoy to your recovery. As your back feels better please gradually increase the distanc e you walk as discussed with your provider. Don t drive until your doctor says it s OK. And never drive while you are taking opi oid pain medication. Nap if you are tired, but don t stay in bed all day. Use chairs with arms. The arms make it easier for you to stand up and sit down. If you have not yet received instructions about physical therapy, ask your doctor about them. Incision care Check your incision daily for redness, tenderness, or drainage. Don t soak your wound in water (no hot tubs, bathtubs, swimming pools) until your doct or says it s OK. As long as you keep your incision dry you can shower as desired. After 5 days you may le t shower water run over the incision but do not submerse the incision under water until afte r you see your provider. Gently pat the incision dry. Don t rub it, or apply creams or lot ions. And if you feel unsteady while standing to shower, use a shower stool or chair. Other home care Use nonslip bath mats, grab bars, an elevated toilet seat, and a shower chair in your ba throom. Take your medication exactly as directed. Don t take nonsteroidal anti-inflammatory medications (NSAIDs), such as ibuprofen. The y may delay or prevent proper fusion of the spine. If you smoke, stop! This will be one of the most important things you can do to help you recover from surgery. Wear your back brace, if one was prescribed, as directed by your doctor. Follow-up Most patients will be seen approximately 4 weeks after surgery. Be sure to get your 1 mo nth post op x-rays prior to your 1 month post op appointment before your appointment. [id number] [employer]. [address] [place] [address]. All righ ts reserved. This information is [...] encounter Progress Notes Kirk Javier PA-C - 06/21/2017 7:21 AM PSTFormatting of this note might be differ ent from the original. [facility] NEUROSURGERY PROGRESS NOTE PATIENT NAME: Cosmo Johnson AGE: 72 y.o. DATE OF SERVICE: 06/21/2017 7:21 S: The patient c/o manageable back pain. The patient has been mobilizing well. The leg sy mptoms are at improved from preoperatively. The patient has been voiding and is passing flatus. O: CURRENT MEDICATIONS: Current Facility-Administered Medications Medication Dose Route Frequency Provider Last Rate Last Dose acetaminophen (TYLENOL) tablet 650 mg 650 mg Oral Q4H PRN Kirk Javier PA-C aluminum & magnesium hydroxide-simethicone (MAALOX PLUS REGULAR STRENGTH) 200-200-20 mg /5 mL suspension 30 mL 30 mL Oral Q6H PRN Kirk Javier PA-C amLODIPine (NORVASC) tablet 5 mg 5 mg Oral Daily Kirk Javier PA-C 5 mg at 1 08/21/16 0830 bisacodyl (DULCOLAX) suppository 10 mg 10 mg Rectal Daily PRN MELISSA Mai calcium carbonate (TUMS) chewable tablet 1,000 mg 1,000 mg Oral Q2H PRN Kirk Javier PA-C 1,000 mg at 06/20/17 0322 diphenhydrAMINE (BENADRYL) injection 12.5 mg 12.5 mg Intravenous Q4H PRN Kirk Javier PA-C Or diphenhydrAMINE (BENADRYL) tablet 25 mg 25 mg Oral Q4H PRN Kirk Javier PA-C 25 mg at 06/21/17 0116 Or diphenhydrAMINE (BENADRYL) 12.5 mg/5 mL liquid 25 mg 25 mg Oral Q4H PRN Kirk Javier PA-C docusate sodium (COLACE) capsule 100 mg 100 mg Oral BID Kirk Javier PA-C 10 0 mg at 06/20/17 2001 enalaprilat (VASOTEC) injection 1.25 mg 1.25 mg Intravenous Q6H PRN Kirk herrera PA-C 1.25 mg at 06/20/17 0122 hydroCHLOROthiazide tablet 25 mg 25 mg Oral Daily Kirk Javier PA-C 25 mg at 06/20/17 0830 HYDROcodone-acetaminophen (NORCO) 7.5-325 mg per tablet 1-2 tablet 1-2 tablet Oral Q4H PRN Kirk Javier PA-C 2 tablet at 06/20/17 1956 lactated ringers (LR) infusion Intravenous Continuous Kemal Damian MD 50 mL/hr at 01/28 0844 lactulose liquid 30 mL 30 mL Oral BID Kirk Javier PA-C 30 mL at 06/20/17 20 00 magnesium hydroxide (MILK OF MAGNESIA) 400 mg/5 mL suspension 30 mL 30 mL Oral Nightly PRN Kirk Javier PA-C menthol (HALLS COUGH DROP) lozenge 1 lozenge 1 lozenge Buccal Q2H PRN Kirk linn PA-C metoclopramide (REGLAN) 5 mg/mL injection 10 mg 10 mg Intravenous Q4H PRN Kirk Javier PA-C 10 mg at 06/20/172108 metoclopramide (REGLAN) tablet 10 mg 10 mg Oral Q4H PRN Kirk Javier PA-C morphine (MS CONTIN) ER tablet 30 mg 30 mg Oral 2 times per day Akhil Mai-William 30 mg at 06/20/172000 morphine injection 1-2 mg 1-2 mg Intravenous Q1H PRN Kirk Javier PA-C 2 mg at 06/20/17 0616 ondansetron (ZOFRAN ODT) disintegrating tablet 4 mg 4 mg Oral Q6H PRN Kirk linn PA-C ondansetron (ZOFRAN) injection 4 mg 4 mg Intravenous Q6H PRN Kirk Javier PA-C phenol (CHLORASEPTIC) spray 1-2 spray 1-2 spray Mouth/Throat Q3H PRN Kirk matthews PA-C polyethylene glycol (MIRALAX) powder 17 g 17 g Oral Daily PRN MELISSA Mai 17 g at 06/20/17 0616 potassium chloride (K-DUR) ER tablet 20 mEq 20 mEq Oral Daily MELISSA Mai 20 mEq at 06/20/17 0830 prochlorperazine (COMPAZINE) tablet 5 mg 5 mg Oral Q6H PRN Kirk Javier PA-C senna (SENOKOT) tablet 8.6 mg 8.6 mg Oral BID PRN Kirk Javier PA-C 8.6 mg a t 06/20/17 0616 tiZANidine (ZANAFLEX) tablet 4 mg 4 mg Oral Q6H PRN Kirk Javier PA-C 4 mg a t 06/20/171955 ALLERGIES: Allergies Allergen Reactions Povidone Iodine Hives and Rash "skin blackwell" Chlorhexidine Gluconate Rash and Other (See Comments) Redness Ezetimibe Other (See Comments) Reaction not specified in outside medical records Lovastatin Other (See Comments) Myalgias PHYSICAL EXAMINATION: Temp: [36.2 C (97.2 F)-36.8 C (98.2 F)] 36.8 C (98.2 F) Pulse: [61-65] 64 Resp: [16-18] 18 BP: (105-160)/(57-71) 131/64 Intake/Output Summary (Last 24 hours) at 06/21/17 0721 Last data filed at 06/21/17 0641 Gross per 24 hour Intake 3735 ml Output 0 ml Net 3735 ml GENERAL: Cosmo Johnson is in no acute distress with unlabored respirations. HEENT: HEAD/FACE: EYES: Normocephalic and atraumatic. There are no areas of recent trauma. Normal sclerae without icterus. CHEST: Clear. HEART: Regular. EXTREMITIES: No edema or swelling. SCD's BACK: The back incisions are dress and a drain is in place with expected output. NEUROLOGICAL EXAM: MENTAL STATUS: The patient is awake, alert, and oriented. He follows simple and complex commands. He speech is fluent, his comprehends speech well, and his repeats well. He has no apparent deficits with short or fci memory. MOTOR EXAM: Motor strength is stable SENSORY EXAM: Sensory exam is stable 24 HOUR LABS: All Component Based Labs None ASSESSMENT: NEUROSURGICAL DIAGNOSES: S/p lumbar fusion HOSPITAL/GENERAL DIAGNOSES: Past Medical History: Diagnosis Date Acute ischemic heart disease (HCC) Bone marrow aplasia (HCC) Colon cancer (HCC) Defecation urgency Headache syndrome benign High cholesterol HLD (hyperlipidemia) Internal derangement of knee Low back pain Lumbar spinal stenosis - above fusion L1/L2 03/07/2017 Osteoarthritis Osteoarthrosis, hand Radiculopathy, lumbar region Rectal malignant neoplasm (HCC) 07/2010 chemo, radiation, surgery Synovitis Systemic hypertension Thoracic neuritis PLAN: S/p lumbar fusion, Hospital day 2 - Neurologically stable and pain control is appropriate. - Medically stable - Mobilize, PT/OT - SCD's - Patient is having adequate bowel function without any concerns. They were counseled that full bowel function may not return for a few days - No drain is present - Disp: Likely home today if he continues to well ELECTRONICALLY SIGNED BY: Kirk Javier PA-C, 06/21/2017 7:21 est, Kirk Ibarra PA-C - 06/20/2017 7:40 AM PST [facility] NEUROSURGERY PROGRESS NOTE PATIENT NAME: Cosmo Johnson AGE: 72 y.o. DATE OF SERVICE: 06/20/2017 7:41 S: The patient c/o manageable back pain. The patient has been mobilizing well. The leg sy mptoms are at improved from preoperatively. The patient has been voiding but no flatus or BM. O: CURRENT MEDICATIONS: Current Facility-Administered Medications Medication Dose Route Frequency Provider Last Rate Last Dose acetaminophen (TYLENOL) tablet 650 mg 650 mg Oral Q4H PRN Kirk Javier PA-C aluminum & magnesium hydroxide-simethicone (MAALOX PLUS REGULAR STRENGTH) 200-200-20 mg /5 mL suspension 30 mL 30 mL Oral Q6H PRN Kirk Javier PA-C amLODIPine (NORVASC) tablet 5 mg 5 mg Oral Daily Kirk Javier PA-C bisacodyl (DULCOLAX) suppository 10 mg 10 mg Rectal Daily PRN MELISSA Mai calcium carbonate (TUMS) chewable tablet 1,000 mg 1,000 mg Oral Q2H PRN Kirk Javier PA-C 1,000 mg at 06/20/17 0322 ceFAZolin (ANCEF, KEFZOL) 100 mg/mL IV syringe 2 g 2 g Intravenous Q8H Kirk Javier PA-C 40 mL/hr at 06/20/17 0128 2 g at 06/20/17 0128 diphenhydrAMINE (BENADRYL) injection 12.5 mg 12.5 mg Intravenous Q4H PRN Kirk Javier PA-C Or diphenhydrAMINE (BENADRYL) tablet 25 mg 25 mg Oral Q4H PRN Kirk Javier PA-C Or diphenhydrAMINE (BENADRYL) 12.5 mg/5 mL liquid 25 mg 25 mg Oral Q4H PRN Kirk Javier PA-C docusate sodium (COLACE) capsule 100 mg 100 mg Oral BID Kirk Javier PA-C 10 0 mg at 06/19/172208 enalaprilat (VASOTEC) injection 1.25 mg 1.25 mg Intravenous Q6H PRN Kirk herrera PA-C 1.25 mg at 06/20/17 0122 hydroCHLOROthiazide tablet 25 mg 25 mg Oral Daily Kirk Javier PA-C HYDROcodone-acetaminophen (NORCO) 7.5-325 mg per tablet 1-2 tablet 1-2 tablet Oral Q4H PRN Kirk Javier PA-C 2 tablet at 06/20/17 0322 lactated ringers (LR) infusion Intravenous Continuous Kemal Damian MD 100 mL/hr at 2154 lactulose liquid 30 mL 30 mL Oral BID Kirk Javier PA-C [START ON 06/21/2017] magnesium hydroxide (MILK OF MAGNESIA) 400 mg/5 mL suspension 30 m L 30 mL Oral Nightly PRN Kirk Javier PA-C menthol (HALLS COUGH DROP) lozenge 1 lozenge 1 lozenge Buccal Q2H PRN Kirk linn PA-C metoclopramide (REGLAN) 5 mg/mL injection 10 mg 10 mg Intravenous Q4H PRN Kirk Javier PA-C metoclopramide (REGLAN) tablet 10 mg 10 mg Oral Q4H PRN Kirk Javier PA-C morphine (MS CONTIN) ER tablet 30 mg 30 mg Oral 2 times per day Akhil Mai-William 30 mg at 06/19/172208 morphine injection 1-2 mg 1-2 mg Intravenous Q1H PRN Kirk Javier PA-C 2 mg at 06/20/17 0616 ondansetron (ZOFRAN ODT) disintegrating tablet 4 mg 4 mg Oral Q6H PRN Kirk linn PA-C ondansetron (ZOFRAN) injection 4 mg 4 mg Intravenous Q6H PRN Kirk Javier PA-C phenol (CHLORASEPTIC) spray 1-2 spray 1-2 spray Mouth/Throat Q3H PRN Kirk matthews PA-C polyethylene glycol (MIRALAX) powder 17 g 17 g Oral Daily PRN MELISSA Mai 17 g at 06/20/17 0616 potassium chloride (K-DUR) ER tablet 20 mEq 20 mEq Oral Daily MELISSA Mai prochlorperazine (COMPAZINE) tablet 5 mg 5 mg Oral Q6H PRN Kirk Javier PA-C senna (SENOKOT) tablet 8.6 mg 8.6 mg Oral BID PRN Kirk Javier PA-C 8.6 mg a t 06/20/17 0616 tiZANidine (ZANAFLEX) tablet 4 mg 4 mg Oral Q6H PRN Kirk Javier PA-C 4 mg a t 06/19/17 2318 ALLERGIES: Allergies Allergen Reactions Povidone Iodine Hives and Rash "skin blackwell" Chlorhexidine Gluconate Rash and Other (See Comments) Redness Ezetimibe Other (See Comments) Reaction not specified in outside medical records Lovastatin Other (See Comments) Myalgias PHYSICAL EXAMINATION: Temp: [36.2 C (97.2 F)-36.4 C (97.5 F)] 36.3 C (97.3 F) Pulse: [50-83] 77 Resp: [10-22] 16 BP: (131-185)/(70-87) 171/77 Intake/Output Summary (Last 24 hours) at 06/20/17 0741 Last data filed at 06/20/17 0005 Gross per 24 hour Intake 2515 ml Output 350 ml Net 2165 ml GENERAL: Cosmo Johnson is in no acute distress with unlabored respirations. HEENT: HEAD/FACE: EYES: Normocephalic and atraumatic. There are no areas of recent trauma. Normal sclerae without icterus. CHEST: Clear. HEART: Regular. EXTREMITIES: No edema or swelling. SCD's BACK: The back incisions are dress and a drain is in place with expected output. NEUROLOGICAL EXAM: MENTAL STATUS: The patient is awake, alert, and oriented. He follows simple and complex commands. He speech is fluent, his comprehends speech well, and his repeats well. He has no apparent deficits with short or terminal manager memory. MOTOR EXAM: Motor strength is stable SENSORY EXAM: Sensory exam is stable 24 HOUR LABS: All Component Based Labs None ASSESSMENT: NEUROSURGICAL DIAGNOSES: S/p lumbar fusion HOSPITAL/GENERAL DIAGNOSES: Past Medical History: Diagnosis Date Acute ischemic heart disease (HCC) Bone marrow aplasia (HCC) Colon cancer (HCC) Defecation urgency Headache syndrome benign High cholesterol HLD (hyperlipidemia) Internal derangement of knee Low back pain Lumbar spinal stenosis - above fusion L1/L2 03/07/2017 Osteoarthritis Osteoarthrosis, hand Radiculopathy, lumbar region Rectal malignant neoplasm (HCC) 07/2010 chemo, radiation, surgery Synovitis Systemic hypertension Thoracic neuritis PLAN: S/p lumbar fusion, Hospital day 1 - Neurologically stable and pain control is appropriate. - Medically stable - Mobilize, PT/OT - SCD's - Patient is having adequate bowel function without any concerns. They were counseled that full bowel function may not return for a few days - No drain is present - Disp: Likely home in 1-2 days ELECTRONICALLY SIGNED BY: Kirk Javier PA-C, 06/20/2017 7:41 documented in this encounter Plan of Treatment + +------+--------+ + + | Name | Type | Priori | Associated Diagnoses | Order Schedule | | | | ty | | | + +------+--------+ + + | DME: Walker | DME | Routin | Gait abnormality | DME 1 Time for 1 | | | | e | S/P lumbar fusion | Occurrences starting | | | | | Spinal stenosis of | 06/19/2017 until | | | | | lumbar region, | 06/19/2017 | | | | | unspecified whether | | | | | | neurogenic | | | | | | claudication present | | + +------+--------+ + + documented as of this encounter Procedures + +--------+ + + + | Procedure Name | Priori | Date/Time | Associated Diagnosis | Comments | | | ty | | | | + +--------+ + + + | XR LUMBAR SPINE 2 OR | STAT | 06/19/2017 | | Results for this | | 3 VW | | 9:38 PM | | procedure are in the | | | | PST | | results section. | + +--------+ + + + | [place] ZOFIA STATS NO | Routin | 06/19/2017 | | Results for this | | CHARGE | e | 7:31 PM | | procedure are in the | | | | PST | | results section. | + +--------+ + + + | FUSION LUMBAR W/ | | 06/19/2017 | DDD (degenerative | | | LATERAL APPROACH | | 6:13 PM | disc disease), | | | (XLIF) | | PST | lumbar (M51.36), | | | | | | Spondylolisthesis of | | | | | | lumbar region | | | | | | (M43.16), Facet | | | | | | arthropathy, lumbar | | | | | | (M12.88), Lumbar | | | | | | radicular pain | | | | | | (M54.16), S/P lumbar | | | | | | fusion (Z98.1), | | | | | | Spinal stenosis of | | | | | | lumbar region, | | | | | | unspecified whether | | | | | | neurogenic | | | | | | claudication present | | | | | | (M48.061) | | + +--------+ + + + +---+--------+ | | Case | | | Notes | | | | | | Prep: | | | Alcoho | | | l, | | | Chloro | | | xyleno | | | l | | | Scrub | | | Keeling | | | (Wire | | | One)In | | | strume | | | nts: | | | C-Arm, | | | | | | Drill, | | | | | | Micros | | | cope, | | | METRxB | | | iologi | | | cs: | | | BMP, | | | Grafto | | | n, | | | Latera | | | l | | | Plate | | | Decade | | | , | | | Neurov | | | isionI | | | mplant | | | s: | | | XLIFTa | | | ble: | | | Jackso | | | n [place] | | | | | | training and development head | | | ep: | | | Man | | | Conkli | | | n | +---+--------+ | | | | | Specia | | | l | | | Needs | | | | | | Implan | | | ts: | | | XLIFTa | | | ble: | | | [place] | | | n [place] | | | | | | training and development head | | | ep: | | | Man | | | Conkli | | | n | +---+--------+ documented in this encounter Results XR Lumbar Spine 2 or 3 Vw (06/19/2017 9:38 PM PST) + + | Specimen | + + | | + + + + + | Narrative | Performed At | + + + | TWO VIEWS LUMBAR SPINE 06/19/2017 9:38 PM CLINICAL HISTORY: post | [facility] | | op fusion COMPARISON: RADIOGRAPHS FEBRUARY 07 AND MORE REMOTE EXAMS | | | FINDINGS: Five non rib-bearing, lumbar type vertebrae are visible. | | | Leftward lumbar curvature persists. Interbody and right lateral | | | plate and screw fusion hardware is now present at L1-2 and appears | | | intact and well seated. There is stable, intact interbody and | | | posterior aimee and pedicle screw fusion hardware extending from L2 | | | through L4 and an interspinous fusion prosthesis persists at L2-3 as | | | well. Vertebral height is maintained. Previously visible | | | retrolisthesis at L1-2 appears to have been mostly reduced. There is | | | persistent mild retrolisthesis at T12-L1 and L4-5, along with disc | | | space narrowing. The sacroiliac joints and imaged sacrum, bony | | | pelvis and lower ribs are unremarkable. There is scattered | | | aortoiliac calcification. IMPRESSION - 1. SATISFACTORY | | | APPEARANCE STATUS POST OPERATIVE FUSION AT L1-2, WITH STABLE FUSION | | | HARDWARE EXTENDING FROM L2 THROUGH L4. Dictated and Signed by: | | | Layton Barney MD Electronically signed: 06/19/2017 10:00 PM | | + + + + + | Procedure Note | + + | Reji, Rad Results In - 06/19/2017 10:04 PM PST TWO VIEWS LUMBAR SPINE 06/19/2017 9:38 | | PMCLINICAL HISTORY: post op fusionCOMPARISON: RADIOGRAPHS FEBRUARY 07 AND MORE REMOTE | | EXAMSFINDINGS: Five non rib-bearing, lumbar type vertebrae are visible. Leftwardlumbar | | curvature persists. Interbody and right lateral plate and screw fusionhardware is now | | present at L1-2 and appears intact and well seated. There isstable, intact interbody | | and posterior aimee and pedicle screw fusion hardwareextending from L2 through L4 and an | | interspinous fusion prosthesis persists atL2-3 as well. Vertebral height is maintained. | | Previously visibleretrolisthesis at L1-2 appears to have been mostly reduced. There | | is persistentmild retrolisthesis at T12-L1 and L4-5, along with disc space narrowing. | | Thesacroiliac joints and imaged sacrum, bony pelvis and lower ribs areunremarkable. | | There is scattered aortoiliac calcification.IMPRESSION -1. SATISFACTORY APPEARANCE | | STATUS POST OPERATIVE FUSION AT L1-2, WITH STABLEFUSION HARDWARE EXTENDING FROM L2 | | THROUGH L4.Dictated and Signed by: Layton Barney MD Electronically signed: 06/19/2017 | | 10:00 PM | |sacroiliac joints and imaged sacrum, bony pelvis and lower ribs are | |unremarkable. There is scattered aortoiliac calcification. | | | |IMPRESSION - | | | |1. SATISFACTORY APPEARANCE STATUS POST OPERATIVE FUSION AT L1-2, WITH STABLE | |FUSION HARDWARE EXTENDING FROM L2 THROUGH L4. | | | |Dictated and Signed by: Layton Barney MD | | Electronically signed: 06/19/2017 10:00 PM | + + + +---------+ + + | Performing | Address | City/State/Zipcode | Phone Number | | Organization | | | | + +---------+ + + | [facility] | | | | + +---------+ + + [place] Ali[place] Statrober[place] No Charge (06/19/2017 7:31 PM PST) + [...] in this encounter Administered Medications + +--------+ +------+------+------+ | Medication Order | MAR | Action | Dose | Rate | Site | | | Action | Date | | | | + +--------+ +------+------+------+ | amLODIPine (NORVASC) tablet 5 | Given | 06/21/20 | 5 mg | | | | mg 5 mg, Oral, DAILY, First dose | | 17 8:31 | | | | | on Josefa 06/20/17 at 0900, | | AM PST | | | | | Post-op/Phase II | | | | | | + +--------+ +------+------+------+ +-------+ +------+---+---+ | Given | 06/20/20 | 5 mg | | | | | 17 8:30 | | | | | | AM PST | | | | +-------+ +------+---+---+ +---+---+ | | | +---+---+ + +-------+ +---------+---+---+ | bacitracin injection PRN, | Given | 06/19/20 | 50,000 | | | | Starting 06/19/17 at 1947, | | 17 7:47 | Units | | | | Intra-op | | PM PST | | | | + +-------+ +---------+---+---+ +---+---+ | | | +---+---+ + +-------+ + +---+---+ | calcium carbonate (TUMS) | Given | 06/20/20 | 1,000 mg | | | | chewable tablet 1,000 mg 1,000 | | 17 3:22 | | | | | mg, Oral, EVERY 2 HOURS PRN, | | AM PST | | | | | Indigestion, Starting Sat06/19/17 | | | | | | | at 2148, Post-op/Phase II | | | | | | + +-------+ + +---+---+ + +---+ | | | + +---+ | diphenhydrAMINE (BENADRYL) 12.5 | | | mg/5 mL liquid 25 mg 25 mg, | | | Oral, EVERY 4 HOURS PRN, Itching, | | | Starting 06/19/17 at 2148, | | | Oral route is preferred., | | | Post-op/Phase II | | + +---+ | | | + +---+ | diphenhydrAMINE (BENADRYL) | | | injection 12.5 mg 12.5 mg, | | | Intravenous, EVERY 4 HOURS PRN, | | | Itching, Starting 06/19/17 at | | | 2148, Oral route is preferred., | | | Post-op/Phase II | | + +---+ | | | + +---+ + +-------+ +-------+---+---+ | diphenhydrAMINE (BENADRYL) | Given | 06/21/20 | 25 mg | | | | tablet 25 mg 25 mg, Oral, EVERY | | 17 1:16 | | | | | 4 HOURS PRN, Itching, Starting | | AM PST | | | | | Sat06/19/17 at 2148, Oral route | | | | | | | is preferred., Post-op/Phase II | | | | | | + +-------+ +-------+---+---+ +---+---+ | | | +---+---+ + +-------+ +--------+---+---+ | docusate sodium (COLACE) | Given | 06/21/20 | 100 mg | | | | capsule 100 mg 100 mg, Oral, 2 | | 17 8:31 | | | | | TIMES DAILY, First dose on Sat | | AM PST | | | | | 06/19/17 at 2215, First line agent | | | | | | | for constipation, Post-op/Phase | | | | | | | II | | | | | | + +-------+ +--------+---+---+ +-------+ +--------+---+---+ | Given | 06/20/20 | 100 mg | | | | | 17 8:01 | | | | | | PM PST | | | | +-------+ +--------+---+---+ | Given | 06/20/20 | 100 mg | | | | | 17 8:30 | | | | | | AM PST | | | | +-------+ +--------+---+---+ +---+---+ | | | +---+---+ + +-------+ +---------+---+---+ | enalaprilat (VASOTEC) injection | Given | 06/20/20 | 1.25 mg | | | | 1.25 mg 1.25 mg, Intravenous, | | 17 1:22 | | | | | EVERY 6 HOURS PRN, SBP > 160, | | AM PST | | | | | Starting 06/19/17 at 2148, | | | | | | | Post-op/Phase II | | | | | | + +-------+ +---------+---+---+ +---+---+ | | | +---+---+ + +-------+ +-------+---+---+ | hydroCHLOROthiazide tablet 25 | Given | 06/21/20 | 25 mg | | | | mg 25 mg, Oral, DAILY, First | | 17 8:31 | | | | | dose on Josefa 06/20/17 at 0900, | | AM PST | | | | | Post-op/Phase II | | | | | | + +-------+ +-------+---+---+ +-------+ +-------+---+---+ | Given | 06/20/20 | 25 mg | | | | | 17 8:30 | | | | | | AM PST | | | | +-------+ +-------+---+---+ +---+---+ | | | +---+---+ + +-------+ +---------+---+---+ | HYDROcodone-acetaminophen | Given | 06/20/20 | 2 | | | | (NORCO) 7.5-325 mg per tablet 1-2 | | 17 7:56 | tablets | | | | tablet 1-2 tablet, Oral, EVERY | | PM PST | | | | | 4 HOURS PRN, Pain, Starting Wed | | | | | | | 06/19/17 at 2148, Maximum | | | | | | | acetaminophen is 4000 mg/day from | | | | | | | all sources, Post-op/Phase II | | | | | | + +-------+ +---------+---+---+ +-------+ +---------+---+---+ | Given | 06/20/20 | 2 | | | | | 17 1:33 | tablets | | | | | PM PST | | | | +-------+ +---------+---+---+ | Given | 06/20/20 | 2 | | | | | 17 3:22 | tablets | | | | | AM PST | | | | +-------+ +---------+---+---+ +---+---+ | | | +---+---+ + +---------+ +---+ +---+ | lactated ringers (LR) infusion | New Bag | 06/20/20 | | 50 mL/hr | | | at 100 mL/hr, Intravenous, | | 17 8:44 | | | | | CONTINUOUS, Starting 06/19/17 | | AM PST | | | | | at 1400 | | | | | | + +---------+ +---+ +---+ +---------+ +---+-------+---+ | New Bag | 06/19/20 | | 100 | | | | 17 9:54 | | mL/hr | | | | PM PST | | | | +---------+ +---+-------+---+ | New Bag | 06/19/20 | | | | | | 17 7:19 | | | | | | PM PST | | | | +---------+ +---+-------+---+ +---+---+ | | | +---+---+ + +-------+ +--------+---+---+ | lactulose liquid 30 mL 30 mL, | Given | 06/20/20 | 30 mLs | | | | Oral, 2 TIMES DAILY, First dose | | 17 8:00 | | | | | on Sat06/19/17 at 2215, If | | PM PST | | | | | docusate, senna, and polyethylene | | | | | | | glycol ineffective x 24 hours or | | | | | | | not ordered, Post-op/Phase II | | | | | | + +-------+ +--------+---+---+ +-------+ +--------+---+---+ | Given | 06/20/20 | 30 mLs | | | | | 17 8:30 | | | | | | AM PST | | | | +-------+ +--------+---+---+ +---+---+ | | | +---+---+ + +-------+ +-------+---+---+ | metoclopramide (REGLAN) 5 mg/mL | Given | 06/20/20 | 10 mg | | | | injection 10 mg 10 mg, | | 17 9:09 | | | | | Intravenous, EVERY 4 HOURS PRN, | | PM PST | | | | | Nausea, Vomiting, Starting Sat | | | | | | | 06/19/17 at 2148, Use if | | | | | | | ondansetron and prochlorperazine | | | | | | | ineffective after 30 minutes or | | | | | | | not ordered Use PO option unless | | | | | | | NPO status or unable to tolerate | | | | | | | Protect from light., | | | | | | | Post-op/Phase II | | | | | | + +-------+ +-------+---+---+ +---+---+ | | | +---+---+ + +-------+ +-------+---+---+ | morphine (MS CONTIN) ER tablet | Given | 06/21/20 | 30 mg | | | | 30 mg 30 mg, Oral, EVERY 12 | | 17 8:31 | | | | | HOURS (2 times per day), First | | AM PST | | | | | dose on Sat06/19/17 at 2215, Do | | | | | | | not cut or crush., Post-op/Phase | | | | | | | II | | | | | | + +-------+ +-------+---+---+ +-------+ +-------+---+---+ | Given | 06/20/20 | 30 mg | | | | | 17 8:01 | | | | | | PM PST | | | | +-------+ +-------+---+---+ | Given | 06/20/20 | 30 mg | | | | | 17 8:30 | | | | | | AM PST | | | | +-------+ +-------+---+---+ +---+---+ | | | +---+---+ + +-------+ +------+---+---+ | morphine injection 1-2 mg 1-2 | Given | 06/20/20 | 2 mg | | | | mg, Intravenous, EVERY 1 HOUR | | 17 6:16 | | | | | PRN, Pain, Starting 06/19/17 | | AM PST | | | | | at 2148, If oral route not an | | | | | | | option. Slow IV push, not faster | | | | | | | than 2mg/minute. First dose must | | | | | | | be lowest dose, titrate to | | | | | | | effective dose by repeat of | | | | | | | lowest dose every 30 minutes prn | | | | | | | pain, may not exceed maximum dose | | | | | | | ordered per interval. Use | | | | | | | Pasero Sedation Scale., | | | | | | | Post-op/Phase II | | | | | | + +-------+ +------+---+---+ +-------+ +------+---+---+ | Given | 06/20/20 | 2 mg | | | | | 17 1:22 | | | | | | AM PST | | | | +-------+ +------+---+---+ | Given | 06/19/20 | 2 mg | | | | | 17 10:09 | | | | | | PM PST | | | | +-------+ +------+---+---+ +---+---+ | | | +---+---+ + +-------+ +------+---+---+ | polyethylene glycol (MIRALAX) | Given | 06/20/20 | 17 g | | | | powder 17 g 17 g, Oral, DAILY | | 17 6:16 | | | | | PRN, Constipation, Starting Wed | | AM PST | | | | | 06/19/17 at 2148, If docusate and | | | | | | | senna ineffective or not ordered, | | | | | | | Post-op/Phase II | | | | | | + +-------+ +------+---+---+ +---+---+ | | | +---+---+ + +-------+ +--------+---+---+ | potassium chloride (K-DUR) ER | Given | 06/21/20 | 20 mEq | | | | tablet 20 mEq 20 mEq, Oral, | | 17 8:31 | | | | | DAILY, First dose on [facility] 06/20/17 | | AM PST | | | | | at 0900, Post-op/Phase II | | | | | | + +-------+ +--------+---+---+ +-------+ +--------+---+---+ | Given | 06/20/20 | 20 mEq | | | | | 17 8:30 | | | | | | AM PST | | | | +-------+ +--------+---+---+ +---+---+ | | | +---+---+ + +-------+ +--------+---+---+ | senna (SENOKOT) tablet 8.6 mg | Given | 06/20/20 | 8.6 mg | | | | 8.6 mg, Oral, 2 TIMES DAILY PRN, | | 17 6:16 | | | | | Constipation, Starting Wed | | AM PST | | | | | 06/19/17 at 2148, If docusate | | | | | | | ineffective or not ordered, | | | | | | | Post-op/Phase II | | | | | | + +-------+ +--------+---+---+ +---+---+ | | | +---+---+ + +-------+ +------+---+---+ | tiZANidine (ZANAFLEX) tablet 4 | Given | 06/20/20 | 4 mg | | | | mg 4 mg, Oral, EVERY 6 HOURS | | 17 7:56 | | | | | PRN, Muscle spasms, Starting Wed | | PM PST | | | | | 06/19/17 at 2148, Post-op/Phase II | | | | | | + +-------+ +------+---+---+ +-------+ +------+---+---+ | Given | 06/19/20 | 4 mg | | | | | 17 11:18 | | | | | | PM PST | | | | +-------+ +------+---+---+ +---+---+ | | | +---+---+ documented in this encounter
--- OUTSIDE RECORDS SUMMARY | ~2019-11-22 | XMS | Encounter Summary ---
Demographics + + + | Address | [address] | | | [place] [address] | + + + | Home Phone [...] + + + | Author | [facility] | + + + | Organization | [facility] | + + + | Address | Unknown | + + + | Phone | Unavailable | + + + Support + + + + + | Name | Relationship | Address | Phone | + + + + + | Ricarda Johnson | ECON | [address] | | | | | [place] | | | | | [address] | | + + + + + Care Team Providers + +------+ + | Care Floor Sander Name | Role | Phone | + +------+ + | Hay Greco MD | PCP | | + +------+ + Encounter Details +--------+ + + + + | Date | Type | Department | Care Team | Description | +--------+ + + + + | 12/04/ | Abstract | Digestive Health | Edgar Hampton, | | | 2012 | | [place] [facility] [address] | [address] | | | | | Debbie Mock | [address] | | | | | Mailcode: Center | [place], [place] | | | | | for Health and | [address] | | | | | [facility] [address] | [phone] | | | | | [place], [place] | | | | | | [address] | | | | | | [phone] | | | +--------+ + + + [...]
--- OUTSIDE RECORDS SUMMARY | ~2019-11-22 | XMS | Encounter Summary ---
Demographics + + + | Address | [address] | | | [place] [address] | + + + | Home Phone | | + + + | Preferred Language | Unknown | + + + | Marital Status | | + + + | Congregation Affiliation | 1077 | + + + | Race | Unknown | + + + | Ethnic Group | Unknown | + + + Author + + + | Author | [facility] | | | and [place] | + + + | Organization | [facility] | | | and [place] | + [...] Team Providers + +------+ + | Care Traffic Attendant Name | Role | Phone | + +------+ + | Aldo Frank DO | PCP | | + +------+ + Reason for Visit + + + | Reason | Comments | + + + | Pain Management | 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) | + + + Encounter Details +--------+ + + + + | Date | Type | Department | Care Team | Description | +--------+ + + + + | 06/25/ | Documentati | [facility] | Geraldo Bass | Pain Management | | 2019 | on | NEUROSURGERY [address] MD [address] | (post op appointment | | | | [address] | [address] [place] | (LIVESTOCK AUCTIONEER)) | | | | [place] | [place] [address] | | | | | [address] | [phone] | | | | | [phone] | | | +--------+ + + + [...] this encounter Progress Jia Jara RN - 06/25/2019 9:12 AM PSTP check r/t 06/26/19 Postop appointment with Brian Noble The following information was obtained from [email or web address] on 06/25/19. No results returned on the [facility] query for l ast 3 months. He was prescribed Hydrocodone 7.5/325 1-2 tablets every 4 hrs prn #60 on 06/18/19, not showi ng on LIVESTOCK AUCTIONEER check. documented in this enco unter Plan of Treatment Not on filedocumented as of this encounter Visit Diagnoses Not on filedocumented in this encounter"
--- OUTSIDE RECORDS SUMMARY | ~2019-11-22 | XMS | Encounter Summary ---
Demographics + + + | Address | [address] | | | [place] [address] | + + + | Home Phone | | + + + | Preferred Language | Unknown | + + + | Marital Status | | + + + | Zoroastrianism Affiliation | PRE | + + + | Race | White | + + + | Ethnic Group | Not or | + + + Author + + + | Author | [facility] | + + + | Organization | [facility] | + + + | Address | Unknown | + + + | Phone | Unavailable | + + + Support + + + + + | Name | Relationship | Address | Phone | + + + + + | Ricarda Johnson | ECON | [address] | | | | | [place] | | | | | [address] | | + + + + + Care Team Providers + +------+ + | Care Apartment Leasing Manager Name | Role | Phone | + +------+ + | Hay Greco MD | PCP | | + +------+ + Encounter Details +--------+ + + + + | Date | Type | Department | Care Team | Description | +--------+ + + + + | 10/02/ | Abstract | Infectious | Rona Kulkarni | | | 2011 | | [facility] at [facility] | JUNI Pace [address] | | | | | [address] | [address] | | | | | Loop Physician's | [place], [place] | | | | | [address], [facility] floor | [address] | | | | | [place], [place] | [phone] | | | | | [address] | | | | | | [phone] | | | +--------+ + + + [...] + | CBC, WITH | Routin | 10/03/2011 | | Results for this | | DIFFERENTIAL | e | 10:20 AM | | procedure are in the | | | | PDT | | results section. | + +--------+ + + + | COMPLETE METABOLIC | Routin | 10/03/2011 | | Results for this | | SET | e | 10:20 AM | | procedure are in the | | (NA,K,CL,CO2,BUN,CRE | | PDT | | results section. | | AT,GLUC,CA,AST,ALT,B | | | | | | HUMERA TOTAL,ALK | | | | | | PHOS,ALB,PROT TOTAL) | | | | | + +--------+ + + + documented in this encounter Results COMPLETE METABOLIC SET (NA,K,CL,CO2,BUN,CREAT,GLUC,CA,AST,ALT,BILI TOTAL,ALK PHOS,ALB,PROT TOTAL) (10/03/2011 10:20 AM PDT) + +-------+ + + + | Component | Value | Ref Range | Performed | Pathologist | | | | | At | Signature | + +-------+ + + + | GLUCOSE, | 85 | 65 - 110 mg/dL | NON [facility] | | | PLASMA | | | LAB | | | (LAB) | | | | | + +-------+ + + + | BUN, PLASMA | 21 | mg/dL | NON [facility] | | | (LAB) | | | LAB | | + +-------+ + + + | CREATININE | 1.19 | mg/dL | NON [facility] | | [...] +-------+ + + + | ALBUMIN, | 4 | g/dL | NON [facility] | | [...] + + + | ALK PHOS | 81 | U/L | NON [facility] | | | | | | LAB | | + +-------+ + + + | AST(SGOT) | 15 | U/L | NON [facility] | | | | | | LAB | | + +-------+ + + + | SODIUM, | 136 | mmol/L | NON [facility] | | | PLASMA | | | LAB | | | (LAB) | | | | | + +-------+ + + + | POTASSIUM, | 4.5 | mmol/L | NON [facility] | | | PLASMA | | | LAB | | | (LAB) | | | | | + +-------+ + + + | CHLORIDE, | 106 | mmol/L | NON [facility] | | | PLASMA | | | LAB | | | (LAB) | | | | | + +-------+ + + + | TOTAL CO2, | 22 | mmol/L | NON [facility] | | | PLASMA | | | LAB | | | (LAB) | | | | | + +-------+ + + + | ALT (SGPT) | 13 | U/L | NON [facility] | | [...] + +---------+ + + CBC, WITH DIFFERENTIAL (10/03/2011 10:20 AM PDT) + + + + + + | Component | Value | Ref Range | Performed | Pathologist | | | | | At | Signature | + + + + + + | WHITE CELL | 4.5 | K/cu mm | NON [facility] | | | COUNT | | | LAB | | + + + + + + | RED CELL | 3.45 | M/cu mm | NON [facility] | | | COUNT | | | LAB | | + + + + + + | HEMOGLOBIN | 11.4 (A) | 13.5 - 17.5 | NON [facility] | | | | | g/dL | LAB | | + + + + + + | HEMATOCRIT | 32.3 | % | NON [facility] | | | | | | LAB | | + + + + + + | MCV | 93.6 | fL | NON [facility] | | | | | | LAB | | + + + + + + | MCH | 33 | pg | NON [facility] | | | | | | LAB | | + + + + + + | MCHC | 35 | g/dL | NON [facility] | | | | | | LAB | | + + + + + + | PLATELET | 181 | K/cu mm | NON [facility] | | | COUNT | | | LAB | | + + + + + + | NEUTROPHIL | 78.9 | % | NON [facility] | | | % | | | LAB | | + + + + + + | LYMPHOCYTE | 11.2 | % | NON [facility] | | | % | | | LAB | | + + + + + + | MONOCYTE % | 6.2 | % | NON [facility] | | | | | | LAB | | + + + + + + | EOS % | 3.7 | % | NON [facility] | | | | | | LAB | | + + + + + + | BASO % | 0.0 | % | NON [facility] | | | | | | LAB | | + + + + + + | RDW | 12.8 [...] + + + | ESR (SED | 35 | | NON [facility] | | | [...]
--- OUTSIDE RECORDS SUMMARY | ~2019-11-22 | XMS | Encounter Summary ---
Demographics + + + | Address | [address] | | | [place] [address] | + + + | Home Phone | | + + + | Preferred Language | Unknown | + + + | Marital Status | | + + + | Worship Affiliation | PRE | + + + [...] + | Ricarda Johnson | ECON | [address] | | | | | [place] | | | | | [address] | | + + + + + Care Team Providers + +------+ + | Care Executive Wellness Programs Director Name | Role | Phone | [...] | Required | | tumor | [place] | [facility] [address] | | | | | Procedures | SURGICAL | [address] | | | | | CONSULT TO | CLINIC [facility]12 | Mailcode: | | | | | COLORECTAL | [address] | [facility] | | | | | SURGERY | AVE | Health and | | | | | | [place], | Healing, | | | | | | [place] [address] | Building [address] | | | | | | Phone: | [place], [place] | | | | | | [phone] | [address] | | | | | | Fax: | Phone: | | | | | | [phone] | [phone] | | | | | | | Fax: | | | | | | | [phone] | +--------+ + + + + + Encounter Details +--------+---------+ + + + | Date | Type | Department | Care Team | Description | +--------+---------+ + + + | 07/25/ | Office | [facility] | Edgar Hampton, | Malignant neoplasm | | 2010 | Visit | Center at [facility] [address] | MD [address] | of rectum (HCC) | | | | [address] | [address] | (Primary Dx) | | | | Mailcode: Center | [place], [place] | | | | | [facility] and | [address] | | | | | [facility] 2 | [phone] | | | | | [place], [place] | | | | | | [address] | | | | | | [phone] | | | +--------+---------+ + + + [...] + + + | Blood Pressure | 146/82 | 07/25/2010 9:08 AM | | | | | PST | | + + + + + | Pulse | 78 | 07/25/2010 9:08 AM | | | | | PST | | + + + + + | Temperature | 36.3 C (97.4 F) | 07/25/2010 9:08 AM | | | | | PST | | + + + + + | Respiratory Rate | 16 | 07/25/2010 9:08 AM | | | | | PST | | + + + + + | Oxygen Saturation | - | - | | + + + + + | Inhaled Oxygen | - | - | | | Concentration | | | | + + + + + | Weight | 86.6 kg (191 lb) | 07/25/2010 9:08 AM | | | | | PST | | + + + + + | Height | 175.3 cm (5' 9") | 07/25/2010 9:08 AM | | | | | PST | | + + + + + | Body Mass Index | 28.21 | 07/25/2010 9:08 AM | | | | | PST | | + + + + + documented in this encounter Patient Instructions Patient Instructions Edgar Hampton MD - 07/25/2010 9:17 AM PSTPATIENT SURGERY INFORMAT [facility] General Surgery Office Toll-free: , request [facility] Surgery Date: 07/26/2010 Procedure: Low anterior resection with total mesorectal excision and temporary diverting il eostomy Surgeon Name: Philipp Hampton MD DIRECTIONS FOR SURGERY DIET You should have clear liquids only for the entire day prior to surgery, no solid food. Vandana r liquids include anything you can see through, like water, shirley cinthya, lemon-paimiut soft drin ks, apple juice, tea, Gatorade/sports drinks, Jell-O, broth soups, popsicles, and coffee. DO NOT EAT OR DRINK ANYTHING AFTER MIDNIGHT PRIOR TO YOUR SURGERY, EXCEPT FOR ANY REQUIRED MEDICATIONS WITH A SIP OF WATER. LAXATIVES These laxatives are liquids taken by mouth that will cause bowel movements. Some people may experience nausea, bloating, fullness, and perhaps vomiting. Buy a 238 gm bottle of Miralax and mix it with 64 ounces of any flavor of gatorade. After a liquid lunch, , start drinking the Gatorade/miralax preparation the day before surgery. Beg in drinking the solution at the rate of 1 cup every 10-15 minutes until gone. Mild fullness of abdomen and cramping are not uncommon. Should this become troublesome, decrease the rate to one cup every 20 minutes. Drink plenty of additional liquids to maintain hydration, as th e preparation can be very dehydrating. You will need to have some salty fluids as well, suc h has chicken broth, to keep your sodium level up. If you cannot complete your bowel preparation, please contact the surgery office at . After hours and on weekends this number may refer you to the hospital wafer machine operator ); please ask to speak to the general surgery resident bloom conveyor operator for Dr Hampton. MEDICATIONS You may take [...] interactions with anesthetics. Since there is no evid ence that herbal medications improve surgical outcomes, and there are theoretic reasons that these agents may increase perioperative morbidity, we recommend they be stopped before surg remington. Ephedra (ma andersen) may increase the risk [...] e. Smoking is not allowed on the [facility] campus. If you are a smoker, please make sure we discu ss a plan for managing nicotine withdrawal while in the hospital as well as resources for sm oking cessation. Smoking adds significantly to the risks of your procedure. Smoking near the time of surgery causes a more acute narrowing of the blood vessels, which may lead to decreased blood flow to the tissue, poor healing, or actual loss of tissue. IF you have 3-4 weeks before your bal nned procedure and wish to quit, we will help you with resources and support. THE DAY OF THE PROCEDURE WHEN TO ARRIVE The OR schedules are finalized in the afternoon on the business day prior to the procedure. On the day prior to surgery you will be notified of your check-in time by our office. If yo u do not hear from anyone by 3:00 PM please call for [id number]. PARKING Parking for patients and visitors is available in the [facility] Parking structure located across from the emergency department. Patient parking is available on level 1 and 3. Metere d parking is available on the top level. CHECKING IN FOR SURGERY Go in the main entrance and check in at the Admitting Desk 9th floor of [facility] TRANSPORTATION You will require transportation home on the day of discharge. Pain medications and physical activity restrictions may limit your ability to drive safely. CANCELLING YOUR PROCEDURE Please notify the general surgery office at [phone] as soon as possible should you nee d to cancel or change your surgery date. We will attempt to reschedule your procedure in a t imely manner however due to a limited amount of operating room time a waiting list is not un common. ILLNESS Please call our office with any signs of illness such as cold, flu, infection, fever, or sk in rash/infection anytime prior to your surgery. PRODUCTS CONTAINING ASPIRIN [place], Anacin, Anexsia with Codeine, Andynos, Aspirin, Aspirin suppositories, Ascrip tin, Aspergum, Axotal, B-A-C, Baby Aspirin, Chikis, BC Powder, Bexophene, Buffaprin, Bufferin , Buffinol, Cama-Arthritis Strength, Congespirin, [place]ell, Coricidin, Damason, Darvon, Dristan, Zenobia-Gesic, Digel, Dolprin #3 Tablets, Donatab, Doxaphene, Duragesic, Easprin, Ecotrin, Emag rin Forte, Emiprin, Emprazil, Equagesic, Equazine M, Excedrin, Fiogesic, Fiorgen PH, Fiorice t, Fiorinal, 4-Way Cold Tablet Gemnisyn, Indocin, Liquprin, Lortab ASA, Magnaprin, Marnal, Meprobamate, Midol, Momentum, N orgesic, [place], Orphengesic, Pabalate, P-A-C, Percodan, Presalin, Robaxasil, Roxiprin, Sathya eto, Salocol SK-65 Compound, Sine-Aid, Sine-Off,, Sully, Supac, Talwin Compound, Trigesic, Tolectin , Traiminicin, Vanquish, ZORprin, Zomax PRODUCTS CONTAINING IBUPROFEN Advil, Aleve, Haltran, Medipren, Midol, Motrin, Naproxyn, Nuprin, Rufen OTHER PRODUCTS WHICH MAY PROMOTE BLEEDING Vitamin E, Gingko Biloba, Marine Fatty Acids, [place]-3 Fish Oil Supplements Registration Process for all Admissions/Surgeries Please bring your insurance card(s) with you and be prepared to pay any co-payment, co-insu tata or deposit that may be required. Once you arrive at the registration desk, you will be interviewed by a Patient Access Servi ce Specialist (TONYA). Demographics will be verified (example: name, date of , Social Sec urity Number, address, insurance). You will be asked to sign some paperwork: Terms and Conditions of Service, Notice of Privac y Practices Acknowledgement and Genetic Testing Opt Out. You will be given some paperwork: copies of any forms signed by you, Patient Rights, Respon sibilities and Safety, Understanding Advance Directives, and Smoking Cessation Brochure. documented in this encounter Progress Notes Edgar Hampton MD - 07/25/2010 10:08 AM PST07/25/2010 Colorectal Surgery Clinic Preop Visit Planned procedure: Low anterior resection with total mesorectal excision and temporary div erting ileostomy Date of operation: 07/26/09 History reviewed, updated and verified from 05/30/10 visit. HPI: Merritt Johnson is a 65 yr old man who underwent a colonoscopy in Mar for rectal bleeding an d was found to have a rectal cancer. Remainder of the exam was normal. Rigid procto showed a mid rectal tumor at 9 cm. CEA was 2.72. CT of the chest/abd/pelvis were normal. EUS 03/16 7 uT3N1. Tattoo placed on either side at the tumor site. Started chemoradiation on 04/17/10, finished 05/26/10. 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 Since completing treatment, has been hav ing normal bowel movements. No pain. Larger stools since radiation but no other changes. Eat ing well. Gained 15 lbs since March. Not fatigued. Some hip pain limiting his walking bu t normally can walk as far as he wants. With diarrhea, he had sig urgency, but no gerardo incontinence. Has occ incontinence to gas. Has not been sexually active, was using cialis for ED prior to treatment. Wakes at night 5 -6 times to urinate. PMH: Hypercholesterolemai, headache PSH: Lumbar surgery - aimee placed 2009 MED: Lipitor 80 mg daily, Excedrin multiple times per day for headaches, has been mostly o ff it for the last week. ALL: has no known allergies. SH: reports that he has never smoked. He has never used smokeless tobacco. He reports marah t he drinks about 7 ounces of alcohol per week. FH: brother - polyps ROS: All others negative other than HPI Exam BP 146/82 | Pulse 78 | Temp (Src) 36.3 C (97.4 F) (Oral) | RR 16 | Ht 1.753 m (5' 9") | Wt 86.637 kg (191 lb) | BMI 28.21 kg/(m^2) Gen: Alert, energetic, NAD Neuro: A&O, normal gait Psych: normal affect, speech HEENT: Anicteric Cor: Reg Pulm: Clear Abd: soft, nt Extr: warm Labs: preop labs pending 05/15/10: hgb 13.2, plt 172, alb 3.5, cr 0.86 Impression: Cosmo Johnson is a 65 yr old man with a mid-rectal uT3N1 mid rectal cancer, s/p neoadjuva nt therapy. Recommendations: LAR with TME and temporary diverting ileostomy 07/26/09 PAT/office today Stoma marking in preop area tomorrow PARQ A detailed PARQ discussion was held describing the proposed operation. Risks, including bu t not limited to , organ failure, need for ICU care, heart attack, stroke, need for mec hanical ventilation, DVT-PE, bleeding, infections (including abscesses, wound infections, ur inary tract infections, pneumonia), injury to surrounding structures (e.g., adjacent bowel, ureters, spleen), anastomotic leak, possible need for reoperation, possible need for an ileo stomy or colostomy were discussed. The patient has also consented to blood transfusion if n eeded. Specific risks of pelvic dissection, including bladder dysfunction, sexual dysfuncti on, impaired fertility, life-threatening bleeding were discussed. The possibility of impair ed bowel function or pelvic sepsis was discussed, and the possibility of needing an addition al operation and possibly permanent ostomy was reviewed as a last resort. termite control servicer risks o f ventral hernia and small bowel obstruction were reviewed. All the patient's questions wer e answered. He has provided informed consent and signed the form. atrick Garcia - 07/15 9:16 AM PSTC/o RT hip pain 4/10 on pain scale, thinks its from radiationElectronical ly signed by Patrick Garcia at 07/25/2010 9:18 AM PSTdocumented in this encounter Plan of Treatment Not on filedocumented as of this encounter Visit Diagnoses + + | Diagnosis | + + | Malignant neoplasm of rectum (HCC) - Primary Malignant neoplasm of rectum | + + documented in this encounter
--- OUTSIDE RECORDS SUMMARY | ~2019-11-22 | XMS | Encounter Summary ---
Demographics + + + | Address | [address] | | | [place] [address] | + + + | Home Phone | | + + + | Preferred Language | Unknown | + + + | Marital Status | | + + + | Restorationist Affiliation | [id number] | + + + [...] Team Providers + +------+ + | Care Urologist Md Name | Role | Phone | + [...] | Services | gy | Spinal | Mairana Alcaraz, PhD [address] | | | Required | | stenosis of | [address] | [place] | | | | | lumbar | [address] | | | | | region | [address] | | | | | without | [address] | [place], [place] | | | | | neurogenic | [address] | [address] Phone: | | | | | claudication | TOMMY SANDERS, | [phone] | | | | | S/P lumbar | [place] [address] | Fax: | | | | | fusion | Phone: | [phone] | | | | | Chronic | [phone] | | | | | | bilateral | Fax: | | | | | | low back | [phone] | | | | | | pain [...] + + | 01/07/ | Office | [facility] | Mariana Escamilla | Spinal stenosis of | | 2019 | Visit | PHYSIATRY [address] | [address] | lumbar region | | | | [address] | [address] | without neurogenic | | | | [address] | [address] | claudication | | | | [address] | [address] | (Primary Dx); S/P | | | | [phone] | | lumbar fusion; | | | [...] ed a referral to Dr. Hurst in [facility] for a NeuroPsych evaluation before the SCS trial. [facility] office will call you for an appointment. A Medrol Dose Kush was prescribed for pain flares. documented in this encounter Progress Notes Mariana Escamilla PA-C - 01/07/2019 9:00 AM PDTFormatting of this note might be diffe rent from the original. [address] [facility], [address] [place], [place] [id number] FAX: PHYSICAL MEDICINE AND REHABILITATION H&P CHIEF [...] deficits with short or terminal manager memory. He has appropriate fund of knowledge [...]
--- OUTSIDE RECORDS SUMMARY | ~2019-11-22 | XMS | Encounter Summary ---
Demographics + + + | Address | [address] | | | [place] [address] | + + + | Home Phone [...] Providers + +------+ + | Care Special Forces Communications Sergeant Name | Role | Phone | + +------+ + | Aldo Frank DO | PCP | | + +------+ + Encounter Details +--------+ + + + + | Date | Type | Department | Care Team | Description | +--------+ + + + + | 04/24/ | Orders Only | [facility] | [address] | | | 2016 | | [address] | [address] | | | | | [address] | [address] [place], | | | | | [place], [place] | [place] [address] | | | | | [address] | [phone] | | | | | [phone] | | | +--------+ + + + [...] XR SHOULDER RIGHT 2 | Routin | 04/24/2017 | | Results for this | | + VW | e | 11:14 AM | | procedure are in the | | | | PDT | | results section. | + +--------+ + + + documented in this encounter Results XR Shoulder Right 2 + Vw (04/24/2017 11:14 AM PDT) + + | Specimen | + + | | + + + + + | Narrative | Performed At | + + + | History: This is a 71 y.o. year old male. Diagnosis for Order | | | ICD-10-CM 1. Chronic left shoulder pain M25.512 X-ray shoulder | | | right complete 2+v G89.29 . Findings: 3 views left shoulder. | | | AP, Grashey, scapular Y. There is severe end-stage osteoarthritis | | | left shoulder. The humeral head is flattened, sclerotic and | | | demonstrates a very large inferior humeral osteophyte. The glenoid is | | | warm nearly to the level of the coracoid. There are significant | | | subchondral cysts formed. The humerus remains concentric within the | | | glenoid. The ac joint is narrowed. Type II acromion. Visualized lung | | | gill are clear.. Impression: Endstage left glenohumeral | | | osteoarthritis.. BARBARA BLAND MD 04/27/2017 BARBARA Dougherty | | | MD EDWINA has created this entry using [employer] | | | Recognition software and [employer] macros. The entry has been | | | reviewed and there may still exist sound alike word errors. | | + + + + + | Procedure Note | + + | Reji, Rad Conversion - 03/05/2019 6:52 PM PDT History: This is a 71 y.o. year old | | male. Diagnosis for Order ICD-10-CM1. Chronic left shoulder pain M25.512 X-ray | | shoulder right complete 2+v G89.29. Findings: 3 views left shoulder. AP, Grashey, | | scapular Y. There is severeend-stage osteoarthritis left shoulder. The humeral head is | | flattened,sclerotic and demonstrates a very large inferior humeral osteophyte. | | Theglenoid is warm nearly to the level of the coracoid. There are significantsubchondral | | cysts formed. The humerus remains concentric within theglenoid. The ac joint is | | narrowed. Type II acromion. Visualized lungfields are clear.. Impression: Endstage left | | glenohumeral osteoarthritis.. BARBARA BLAND MD04/27/2017 BARBARA BLAND MD has | | created this entry using [employer] VoiceRecognition software and [employer] macros. | | The entry has been reviewed andthere may still exist sound alike word errors. | |glenoid. The ac joint is narrowed. Type II acromion. Visualized lung | |gill are clear.. | | | |Impression: Endstage left glenohumeral osteoarthritis.. | | | | | |BARBARA BLAND MD | |04/27/2017 | | | |BARBARA BLAND MD has created this entry using [employer] | |Recognition software and [employer] macros. The entry has been reviewed and | |there may still exist sound alike word errors. | | | + + documented in this encounter Visit Diagnoses Not on filedocumented in this encounter"
--- OUTSIDE RECORDS SUMMARY | ~2019-11-22 | XMS | Encounter Summary ---
Demographics + + + | Address | [address] | | | [place] [address] | + + + | Home Phone | | + + + | Preferred Language | Unknown | + + + | Marital Status | | + + + | Advent Affiliation | PRE | + + + | Race | White | + + + | Ethnic Group | Not or | + + + Author + + + | Author | [facility] | + + + | Organization | [facility] | + + + | Address | Unknown | + + + | Phone | Unavailable | + + + Support + + + + + | Name | Relationship | Address | Phone | + + + + + | Ricarda Johnson | ECON | [address] | | | | | [place] | | | | | [address] | | + + + + + Care Team Providers + +------+ + | Care Welcome Wagon Hostess Name | Role | Phone | + +------+ + | Hay Greco MD | PCP | | + +------+ + Encounter Details +--------+ + + + + | Date | Type | Department | Care Team | Description | +--------+ + + + + | 09/05/ | Abstract | Infectious | Rona Kulkarni | | | 2011 | | Diseases at [facility] | [address] | | | | | [address] | [address] | | | | | Loop Physician's | [place], [place] | | | | | [address], [facility] floor | [address] | | | | | [place], [place] | [phone] | | | | | [address] | | | | | | [phone] | | | +--------+ + + + [...] + | CBC, WITH | Routin | 09/05/2011 | | Results for this | | DIFFERENTIAL | e | 10:08 AM | | procedure are in the | | | | PST | | results section. | + +--------+ + + + | COMPLETE METABOLIC | Routin | 09/05/2011 | | Results for this | | SET | e | 10:08 AM | | procedure are in the | | (NA,K,CL,CO2,BUN,CRE | | PST | | results section. | | AT,GLUC,CA,AST,ALT,B | | | | | | HUMERA TOTAL,ALK | | | | | | PHOS,ALB,PROT TOTAL) | | | | | + +--------+ + + + documented in this encounter Results COMPLETE METABOLIC SET (NA,K,CL,CO2,BUN,CREAT,GLUC,CA,AST,ALT,BILI TOTAL,ALK PHOS,ALB,PROT TOTAL) (09/05/2011 10:08 AM PST) + +-------+ + + + [...] + + + | BUN, PLASMA | 20 | mg/dL | NON [facility] | | | (LAB) | | | LAB | | + +-------+ + + + | CREATININE | 1.19 | mg/dL | NON [facility] | | | PLASMA | | | LAB | | | (LAB) | | | | | + +-------+ + + + | TOTAL | 6.9 | g/dL | NON [facility] | | [...] +-------+ + + + | CALCIUM, | 9.2 | mg/dL | NON [facility] | | | PLASMA | | | LAB | | | (LAB) | | | | | + +-------+ + + + | BILIRUBIN | 0.4 | Transcutaneous | NON [facility] | | | TOTAL | | Bilirubinometer | LAB | | + +-------+ + + + | ALK PHOS | 104 | U/L | NON [facility] | | | | | | LAB | | + +-------+ + + + | AST(SGOT) | 14 | U/L | NON [facility] | | | | | | LAB | | + +-------+ + + + | SODIUM, | 135 | mmol/L | NON [facility] | | | PLASMA | | | LAB | | | (LAB) | | | | | + +-------+ + + + | POTASSIUM, | 4.4 | mmol/L | NON [facility] | | [...] +-------+ + + + | C-REACTIVE | 6 | mg/dl | NON [facility] | | [...] + +---------+ + + CBC, WITH DIFFERENTIAL (09/05/2011 10:08 AM PST) + +---------+ + + + | Component | Value | Ref Range | Performed | Pathologist | | | | | At | Signature | + +---------+ + + + | WHITE CELL | 4.1 | K/cu mm | NON [facility] | | | COUNT | | | LAB | | + +---------+ + + + | RED CELL | 2.87 | M/cu mm | NON [facility] | | | COUNT | | | LAB | | + +---------+ + + + | HEMOGLOBIN | 9.9 (A) | 13.5 - 17.5 | NON [facility] | | | | | g/dL | LAB | | + +---------+ + + + | HEMATOCRIT | 27.2 | % | NON [facility] | | | | | | LAB | | + +---------+ + + + | MCV | 94.7 | fL | NON [facility] | | [...] +---------+ + + + | PLATELET | 217 | K/cu mm | NON [facility] | | | COUNT | | | LAB | | + +---------+ + + + | NEUTROPHIL | 77.7 | % | NON [facility] | | | % | | | LAB | | + +---------+ + + + | LYMPHOCYTE | 10.3 | % | NON [facility] | | | % | | | LAB | | + +---------+ + + + | MONOCYTE % | 6.7 | % | NON [facility] | | | | | | LAB | | + +---------+ + + + | EOS % | 4.4 | % | NON [facility] | | | | | | LAB | | + +---------+ + + + | BASO % | 0.9 | % | NON [facility] | | | | | | LAB | | + +---------+ + + + | RDW | 14.6 | % | NON [facility] | | [...] + + + | ESR (SED | 85 | | NON [facility] | | | [...]
--- OUTSIDE RECORDS SUMMARY | ~2019-11-22 | XMS | Encounter Summary ---
Demographics + + + | Address | [address] | | | [place] [address] | + + + | Home Phone [...] Team Providers + +------+ + | Care Cabinet Worker Name | Role | Phone | + +------+ + | Hay Greco MD | PCP | | + +------+ + Encounter Details +--------+ + + + + | Date | Type | Department | Care Team | Description | +--------+ + + + + | 01/04/ | Imaging | [facility] | Provider, | | | 2017 | Exam | [facility] | [address] | | | | | IMAGING [address] | | | | | [address] | [place] [address] | | | | | [place] [address] | | | | | | [phone] | | | +--------+ + + + [...] | + +--------+ + + + | MRI LUMBAR SPINE WO | Routin | 01/01/2017 | | Results for this | | CONTRAST | e | 9:10 AM | | procedure are in the | | | | PDT | | results section. | + +--------+ + + + documented in this encounter Results MRI Lumbar Spine wo Contrast (01/01/2017 9:10 AM PDT) + + | Specimen | + + | | + + + + + | Narrative | Performed At | + + + | External films for comparison only - no result from [place]. | [facility] | + + + + +---------+ + + | Performing | Address | City/State/Zipcode | Phone Number | | Organization | | | | + +---------+ + + | [facility] | | | | + +---------+ + + documented in this encounter Visit Diagnoses Not on filedocumented in this encounter"
--- OUTSIDE RECORDS SUMMARY | ~2019-11-22 | XMS | Encounter Summary ---
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 Name | Role | Phone | + +------+ + | Hay Greco MD | PCP | | + +------+ + Reason for Visit + + + | Reason | Comments | + + + | New patient | | | consultation | | + + + Consultation (Routine) [...] | Required | | tumor | [place] | [facility] [address] | | | | | Procedures | SURGICAL | [address] | | | | | CONSULT TO | [facility] | Mailcode: | | | | | [facility]AL | [address] | | | | | | SURGERY | [address]VE | Health and | | | | | | [place], | Healing, | | | | | | [place] [address] | [address] | | | | | | Phone: | [place], [place] | | | | | | [phone] | [address] | | | | | | Fax: | Phone: | | | | | | [phone] | [phone] | | | | | | | Fax: | | | | | | | [phone] | +--------+ + + + + + Encounter Details +--------+---------+ + + + | Date | Type | Department | Care Team | Description | +--------+---------+ + + + | 05/30/ | Office | [facility] | Edgar kaur, | Malignant neoplasm | | 2009 | Visit | [facility] [address] | [address] | of rectum (HCC) | | | | [address] | [address] | (Primary Dx) | | | | Mailcode: Center | [place], [place] | | | | | [facility] and | [address] | | | | | [facility] | [phone] | | | | | [place], [place] | | | | | | [address] | | | | | | [phone] | | | +--------+---------+ + + + [...] + + + | Blood Pressure | 160/90 | 05/30/2010 1:08 PM | | | | | PST | | + + + + + | Pulse | 67 | 05/30/2010 1:08 PM | | | | | PST | | + + + + + | Temperature | 35.8 C (96.4 F) | 05/30/2010 1:08 PM | | | | | PST | | + + + + + | Respiratory Rate | 16 | 05/30/2010 1:08 PM | | | | | PST | | + + + + + | Oxygen Saturation | - | - | | + + + + + | Inhaled Oxygen | - | - | | | Concentration | | | | + + + + + | Weight | 85.1 kg (187 lb 11.2 | 05/30/2010 1:08 PM | | | | oz) | PST | | + + + + + | Height | 175.3 cm (5' 9") | 05/30/2010 1:08 PM | | | | | PST | | + + + + + | Body Mass Index | 27.72 | 05/30/2010 1:08 PM | | | | | PST | | + + + + + documented in this encounter Progress Notes Edgar Hampton MD - 05/30/2010 1:52 PM PST05/30/2010 [facility] New Patient Consultation Referring Physician: Trent Balderas MD Reason for consultation: rectal cancer HPI: Merritt Johnson is a 65 yr [...] Started chemoradiation on 04/17/10, finished 05/26/10. 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 Bowel function has been irregular on martha atment. With diarrhea, he had sig urgency, but no gerardo incontinence. Has occ incontinence to gas. Has not been sexually active, was using cialis for ED prior to treatment. Wakes at night 5-6 times to urinate. Stopped 5 times to urinate in his 4 hr trip here. PMH: Hypercholesterolemai, headache PSH: Lumbar surgery - aimee placed 2009 MED: Lipitor 80 mg daily ALL: has no allergies on file. SH: reports that he has never used tobacco. He reports that he drinks about 7 ounces of a lcohol per week. FH: brother - polyps ROS: All others negative other than HPI Exam BP 160/90 | Pulse 67 | Temp (Src) 35.8 C (96.4 F) (Oral) | RR 16 | Ht 1.753 m (5' 9") | Wt 85.14 kg (187 lb 11.2 oz) | BMI 27.72 kg/(m^2) Gen: Alert, energetic, NAD Neuro: A&O, normal gait Psych: normal affect, speech HEENT: Anicteric Cor: Reg Pulm: Clear Abd: soft, nt Extr: warm perianal skin: moderate excoriation/radiation changes digital exam: normal tone, normal squeeze, no masses Proctoscopy: ulcer apparent at left anterior rectal wall, 9-10 cm from anal verge Labs: 05/15/10: hgb 13.2, plt 172, alb 3.5, cr 0.86 Additional data: Colonoscopy, EUS, path, oncology notes reviewed as above Impression: Cosmo Johnson is a 65 yr old man with a mid-rectal uT3N1 rectal cancer, s/p neoadjuvant t herapy. He has some early radiation changes that are concerning for the development of fibr osis, but should have an attempt at sphincter salvage resection. There is adequate room for a distal margin with low anterior resection. He will need a total mesorectal excision, bal cing his anastomois at about 5 cm. Nature of disease, principles of treatment, and general prognosis discussed. Recommendations: LAR with TME and temporary diverting ileostomy PAT/office visit one day preop Tentatively plan OR 07/26/09 Total time 60 min, over half in counselingElectronically signed by Edgar Hampton MD at 1 07/30/2009 5:12 PM PSTPatrick Garcia - 05/30/2010 1:17 PM PSTC/o occ blood on tissue with BM 's Examination chaperoned by Patrick Garcia. documented in this encounte r Plan of Treatment Not on filedocumented as of this encounter Procedures + +--------+ + + + | Procedure Name | Priori | Date/Time | Associated Diagnosis | Comments | | | ty | | | | + +--------+ + + + | PROCEDURE NOTE | Routin | 08/19/2015 | | Results for this | | | e | 7:59 AM | | procedure are in the | | | | PST | | results section. | + +--------+ + + + | DC | Routin | 05/30/2010 | Malignant neoplasm | | | PROCTOSIGMOIDOSCOPY, | e | 5:12 PM | of rectum (HCC) | | | RIGID,DIAGNOS | | PST | | | + +--------+ + + + | LAB REPORTS | | 05/30/2010 | | Results for this | | | | 2:15 PM | | procedure are in the | | | | PST | | results section. | + +--------+ + + + | RADIOLOGY | | 05/30/2010 | | Results for this | | | | 2:15 PM | | procedure are in the | | | | PST | | results section. | + +--------+ + + + | PATHOLOGY | | 05/30/2010 | | Results for this | | | | 2:15 PM | | procedure are in the | | | | PST | | results section. | + +--------+ + + + documented in this encounter Results PROCEDURE NOTE (08/19/2015 7:59 AM PST) + + | Transcriptions | + + | Catarino, Faculty - 05/30/2010 2:15 PM PST | | | + + LAB REPORTS (05/30/2010 2:15 PM PST) + + + | Narrative | Performed At | + + + | | | + + + + + | Procedure Note | + + | Other, Faculty - 05/30/2010 2:15 PM PST | | | + + PATHOLOGY (05/30/2010 2:15 PM PST) + + + | Narrative | Performed At | + + + | | | + + + + + | Procedure Note | + + | Other, Faculty - 05/30/2010 2:15 PM PST | | | + + RADIOLOGY (05/30/2010 2:15 PM PST) + + + | Narrative | Performed At | + + + | | | + + + + + | Procedure Note | + + | Cy Toribio - 05/30/2010 2:15 PM PST | | | + + documented in this encounter Visit Diagnoses + + | Diagnosis | + + | Malignant neoplasm of rectum (HCC) - Primary Malignant neoplasm of rectum | + + documented in this encounter
--- OUTSIDE RECORDS SUMMARY | ~2019-11-22 | XMS | Encounter Summary ---
Demographics + + + | Address | [address] | | | [place] [address] | + + + | Home Phone | | + + + | Preferred Language | Unknown | + + + | Marital Status | | + + + | [employer] Affiliation | PRE | + + + | Race | White | + + + | Ethnic Group | Not or | + + + Author + + + | Author | [facility] | + + + | Organization | [facility] | + + + | Address | Unknown | + + + | Phone | Unavailable | + + + Support + + + + + | Name | Relationship | Address | Phone | + + + + + | Ricarda Olivera | ECON | [address] | | | | | [place] | | | | | [address] | | + + + + + Care Team Providers + +------+ + | Care Lead Mason Tender Name | Role | Phone | + +------+ + | Hay Greco MD | PCP | | + +------+ + Reason for Referral Diagnostic Testing (Routine) +--------+--------+ + + + + | Status | Reason | Specialty | Diagnoses / | Referred By | Referred To | | | | | Procedures | Contact | Contact | +--------+--------+ + + + + | Closed | | Cardiology | Procedures | Leyda | Oseas Echo | | | | | | Sander Beltran MD | [facility] [address] | | | | | TRANSESOPHAG | [address] | | | | | EAL | [address] | [address] | | | | | ECHOCARDIOGR | Diana [place] | Brett | | | | | AM, ADULT | [place], [place] | Building, [address] | | | | | | [address] | floor | | | | | | | [place], [place] | | | | | | | [address] | | | | | | | Phone: | | | | | | | [phone] | +--------+--------+ + + + + Diagnostic Testing (Routine) +--------+--------+ + + + + | Status | Reason | Specialty | Diagnoses / | Referred By | Referred To | | | | | Procedures | Contact | Contact | +--------+--------+ + + + + | Closed | | Cardiology | Procedures | Salazar, | Car Echo | | | | | | MD Ginger | [facility] [address] | | | | | TRANSESOPHAG | [address] | | | | | EAL | Avshannon | [address] | | | | | ECHOCARDIOGR | [place], | Brett | | | | | AM, ADULT | [place] | Building, [address] | | | | | | [address] | floor | | | | | | Phone: | [place], [place] | | | | | | [phone] | [address] | | | | | | Fax: | Phone: | | | | | | [phone] | [phone] | +--------+--------+ + + + + Diagnostic Testing (Routine) +--------+--------+ + + + + | Status | Reason | Specialty | Diagnoses / | Referred By | Referred To | | | | | Procedures | Contact | Contact | +--------+--------+ + + + + | Closed | | Cardiology | Procedures | Apryl | Car Echo | | | | | | MD Ginger | [facility] [address] | | | | | TRANSTHORACI | [address] | | | | | C | Ave | [address] | | | | | ECHOCARDIOGR | [place] | [place] | | | | | AM, ADULT | [place] | [facility] | | | | | | [address] | floor | | | | | | Phone: | [place], [place] | | | | | | [phone] | [address] | | | | | | Fax: | Phone: | | | | | | [phone] | [phone] | +--------+--------+ + + + + Diagnostic Testing (Routine) +--------+--------+ + + + + | Status | Reason | Specialty | Diagnoses / | Referred By | Referred To | | | | | Procedures | Contact | Contact | +--------+--------+ + + + + | Closed | | Cardiology | Procedures | Lamble, | Car Echo | | | | | | Ida Sebastian MD | [facility] [address] | | | | | TRANSTHORACI | [address] | | | | | C | Taran Ortiz | [address] | | | | | ECHOCARDIOGR | [address] | [address] | | | | | AM, ADULT | [place], [place] | [facility] | | | | | | [address] | floor | | | | | | | [place], [place] | | | | | | | [address] | | | | | | | Phone: | | | | | | | [phone] | +--------+--------+ + + + + Reason for Visit + + + | Reason | Comments | + + + | Sepsis | | + + + | Fever of unknown | | | origin | | + + + AUTH/CERT (Routine) +--------+--------+ + + + + [...] + + + + | 08/01/ | Hospital | [facility] [address] | Estevan Stringer MD | | | 2011 - | Encounter | [facility] | [address] [facility] | | | | | [address] [facility] | [address] [place], | | | 08/09/ | | [place], [place] | [place] [address] | | | 2011 | | [address] | [phone] | | | | | [phone] | | | | | | | Edgar Hampton MD | | | | | | [address] [facility] | | | | | | [facility] | | | | | | [place], [place] | | | | | | [address] | | | | | | [phone] | | | | | | | | | | | | Ginger Jain MD | | | | | | Ginger Salazar MD | | | | | | [address] | | | | | | [place], [place] | | | | | | [address] | | | | | | [phone] | | | | | | | | | | | | Sander Chandler MD | | | | | | Daryl Morin, | | | | | | MD [address] [facility] | | | | | | [facility] | | | | | | [place], [place] | | | | | | [address] | | | | | | [phone] | | | | | | | [...] + + + | Blood Pressure | 134/76 | 08/09/2011 8:55 AM | | | | | PST | | + + + + + | Pulse | 88 | 08/09/2011 8:55 AM | | | | | PST | | + + + + + | Temperature | 37 C (98.6 F) | 08/09/2011 8:55 AM | | | | | PST | | + + + + + | Respiratory Rate | 16 | 08/09/2011 8:55 AM | | | | | PST | | + + + + + | Oxygen Saturation | 98% | 08/09/2011 8:55 AM | | | | | PST | | + + + + + | Inhaled Oxygen | - | - | | | Concentration | | | | + + + + + | Weight | 80.3 kg (177 lb 1.6 | 08/08/2011 7:55 PM | | | | oz) | PST | | + + + + + | Height | 175.3 cm (5' 9") | 08/01/2011 3:15 PM | | | | | PST | | + + + + + | Body Mass Index | 26.15 | 08/01/2011 3:15 PM | | | | | PST | | + + + + + documented in this encounter Discharge Summaries Sander Chandler MD - 08/09/2011 8:12 AM PST INPATIENT PHYSICIAN DISCHARGE SUMMARY Attending Physician: Sander Chandler MD PCP: Marly Greco MD Admission Date: 08/01/2011 Discharge Date: 08/09/2011 Diagnoses Principal Final Diagnosis: 1) MSSA bacteremia Additional Diagnoses: 1) Chest pain (likely costochondritis) 2) Transaminitis 3) Hip pain 4) Fracture of sacrum 5) JERRICA (acute kidney injury) 6) HTN (hypertension) 7) Malignant neoplasm of rectum 8) Anemia Procedures 1. Transoesphageal echocardiogram Reason For Admission: See H&P for full details but briefly: Tylor Olivera is a 66 year old man with a history of hyperlipidemia, HTN by chart re view, and rectal cancer s/p chemo - completed adjuvant therapy 01/2011, XRT last in 05/2010, and ileostomy formation 07/2010 with planned take-down this spring who was transferred from [facility] in [place], [place] with bacteremia. He had presented initially on 07/30 with back pain of a week duration. He had back pain which started previously and he had an MRI which showed a likely sacral fracture. Our musculoskeletal radiologist felt that the le shayy did not appear to be metastatic disease. He had high fevers at the other hospital prio r to transfer and had difficult to control pain and also chest pain. He was on vancomycin, unasyn, levofloxacin and meropenem. He had a troponin that went from 0.09 --> 0.14 --> 0.11 at the other hospital/ Hospital Course: He was admitted to the general medical service. He had investigations to determine if ther e was an endovascular source of his infection/bacteremia which was slow to clear. He was tr eated initially with vancomycin but changed to naficillin when cultures grew MSSA. He had h ad studies including an MRI but than also a CT abdomen/pelvis at [facility] which just showed his sacral fracture. He had a TTE and CRISTIAN results are listed below. He was determined to have MSSA bacteremia with likely superinfection of sacrum or lumbar hardware and sent home with tino paniagua for prolonged course of iv antibiotics. 1. MSSA bacteremia He had MSSA bacteremia on blood culture present from admission until last positive was on and was afebrile for 3 days prior to discharge. The entry point was thought to be due to a hand splinter but it was felt that he had either an intravascular or bone source for the persistent bacteremia. He had an MRI which showed a sacral fracture and he has had previous spine hardware and it was thought that either of these may have become infected. He also had studies to look for valvular vegetations including a transthoracic and transoesp hageal echocardiogram both of which showed mild mitral regurgitations but no vegetations. H e did meet some Wilkerson's criteria clinically however the cardiology consult service did not fe el that they would call this endocarditis clinically. Ultimately this is being treated as a blood stream infection with likely superinfection of either sacral fracture or infection of lumbar hardware. He will need iv antibiotics (on ceftriaxone 2g qday) for at least 4 but up to 6 weeks. He has a picc line placed and will need weekly labs including (CMP, CBC, CRP and ESR) faxed to the ID clinic to be arranged by home health. 2. Chest pain He had chest pain located in his left chest which was pleuritic in nature. He had severe p ain which was evaluated by a CT angiogram of his chest to evaluate for PE or dissection whic h was negative for either. He had symptomatic therapy with pain medication and flexeril and found this resolved this pain significantly and was only using this about once a day. Trop onin here were all negative. 3. Acute renal failure On admission had normal creatinine though during his hospital stay he had an elevation up t o 1.5 which improved initially with fluids and may have been prerenal or contrast nephropath y as did correlate with timing of CTA for his chest pain. Creatinine on discharge was 1.2 a nd he had good urine output. 4. Transaminitis He had an elevation of his liver enzymes during his stay at [facility] with AST and ALT which cli mbed up to the 100 range. He had improvement with any intervention of his LFTs and had norm al AST/ALT with mildly elevated but much improved bilirubin and alk phos at discharge. When his LFTs were elevated more than three times normal his statin was held and this will need to be restarted after discharge (would recommend repeat LFTs in 2-3 weeks and restart at 3-4 weeks if LFTs still normalized). 5. Hip pain Noted to have a sacral fracture and had some hip pain when admitted. He was recommended to use temporary tylenol (less than 2g) and occassional ibuprofen for this pain. His pain did improve considerably during his admission. 6. Hypertension He had notable hypertension during the admission. He stated that prior to admission he had never had high blood pressure. During his stay his blood pressure was difficult to control however even when not in pain. He was started on amlodipine, hydralazine and metoprolol (sharon garcia metoprolol was low dose). It was felt that he likely had underlying hypertension and he was continued on amlodipine on discharge with plans to check his blood pressure as outpat ient to determine if he would need additional antihypertensives. He was discharged with a p rescription for a blood pressure cuff. Follow-up issues: 1. Hypertension and amlodipine 2. LFTs and restart time for statin 3. Infectious follow-up with [facility] clinic Discharge exam: Vitals within normal limits (afebrile for 72 hours +) General: well appearing man in no acute distress comfortably breathing room air. HEENT: Perrla. Eomi. No scleral icterus CVS: rrr, heart sounds one and two are normal with no added, sounds, no murmurs. RS: lungs clear to auscultation with no wheeze or crackles. Abd: abdomen soft, nontender, nondistended with no organomegaly and no guarding or rigidity . Extremities: no cyanosis, clubbing or oedema. Labs at discharge: Recent Labs Basename 08/09/11 0553 08/08/11 0607 08/07/11 0550 NA 135 QNS 133* K 3.8 QNS 3.4 CL 101 QNS 96* BICARB 26 QNS 26 BUN 11 QNS 12 CR 1.21 QNS 1.36* GLU 96 QNS 106* CA 9.1 QNS 8.5* MG 2.2 QNS 2.1 Recent Labs Basename 08/09/11 0553 08/08/11 0607 01/24/12 0550 AST 19 QNS 49* ALT 40 QNS 66* TBILI 1.5* QNS 1.5* AP 248* QNS 284* ALB 2.4* QNS 2.3* TP 6.5 QNS 6.1 Recent Labs Basename 08/08/11 1133 08/08/11 0607 08/07/11 0550 WBC 7.8 Clotted 7.5 HB 9.9* Clotted 9.3* HCT 29.2* Clotted 27.3* PLT 542* Clotted 453* Sed rate during hospitalization: Lab Results Component Value Date ESR 117* 08/03/2011 Lab Results Component Value Date CRP 15.3* 08/03/2011 Cultures: 08/07: No growth at 2 days x 2 blood cultures 08/06: No growth at 3 days 08/05: No growth at 4 days 08/05: Staph aureus S. aureus Cefazolin S Ciprofloxacin S Clindamycin S Erythromycin R Oxacillin S Tetracycline S Trimeth/Sulfa S Vancomycin S Penicillin R Rifampin S Transthoracic echo: 1. The left ventricular cavity size is normal. 2. The LV systolic function is normal. 3. Moderately increased RV wall thickness. 4. Severely elevated right ventricular systolic pressure. 5. There are no valvular vegetations noted, howevere there is a degree of mitral regurgitat ion that cannot be fully explained. Transoesaphageal echo: Final Impressions: 1. There are no valvular vegetations noted. 2. LV systolic function is normal. Mitral Valve: The mitral valve is structurally normal. Mitral leaflet mobility is normal. M ild mitral valve regurgitation. There is mild central mitral regurgitation noted at the mid-commisural point. There are no no associated vegetations or perfortations seen. CT abdomen/pelvis 08/06/2011: IMPRESSION: No acute abnormality. Specifically, no bowel obstruction or abdominal pelvic abscess. Tiny left pleural effusion and trace left lower quadrant free fluid likely reflecting volum e overload. Mildly thickened bladder with minimal perivesical stranding possibly reflecting cystitis. C orrelate with urinalysis (urinalysis was negative). CTA chest 08/03/2011: IMPRESSION: 1.No evidence of pulmonary embolus or aortic dissection. Minimal posterior upper lobe tree in bud nodularity and groundglass opacity likely represents trace aspiration and/or atelecta sis. 2. Small bilateral pleural effusions with adjacent passive atelectasis. 3. Bilateral advanced clinic humeral arthritic change Discharge Medication List as of 08/09/2011 11:40 AM START taking these medications Details amLODIPine 10 mg Oral Tablet Take 1 Tab by mouth once daily. Call Marly Greco MD for refills., Disp-30 Tab, R-0, Print Prescription cefTRIAXone 1 gram Intravenous Recon Soln Inject 2 g into the vein (IV) every twenty-four h ours. Medication to be admixed per infusion pharmacy standard policy and/or procedure., Disp -2 g, R-42, Print Prescription cyclobenzaprine 5 mg Oral Tablet Take 1 Tab by mouth three times daily as needed for muscle spasms. Do not use longer than 2-3 weeks., Disp-24 Tab, R-0, Print Prescription Miscellaneous Medical Supply (BLOOD PRESSURE CUFF) Misc Disp-1 Each, R-0, Print Prescriptio n oxyCODONE, immediate release, 5 mg Oral Tablet Take 1 Tab by mouth every six hours as neede d., Disp-20 Tab, R-0, Print Prescription CONTINUE these medications which have NOT CHANGED Details acetaminophen 325 mg Oral Tablet Take 1-2 Tabs by mouth every four hours as needed (headach e). Do not exceed 4gm of Tylenol in 24 hours., Disp-100 Tab, R-0, OTC orcchvb-emuzvybpngwqp-jbppscwk (EXCEDRIN) 250-250-65 mg Oral Tablet Take 1 Tab by mouth shruthi ry four hours as needed. Do not take additional tylenol if you are using this medication. T otal tylenol (acetaminophen) should not exceed 4gm per day., Disp-100 Tab, R-0, OTC GLUC NASH/CHONDRO NASH A/VIT C/MN (GLUCOSAMINE CHONDROITIN MAXSTR ORAL) Take by mouth once elin ly., Historical Med multivitamin Oral Capsule Take 1 Cap by mouth once daily., Historical Med Fargo-3 Fatty Acids-Vitamin E (FISH OIL) 1,000 mg Oral Capsule Take by mouth. , Historica l Med STOP taking these medications atorvastatin (LIPITOR) 80 mg Oral Tablet Comments: Reason for Stopping: ibuprofen (IBUPROFEN IB) 200 mg Oral Tablet Comments: Reason for Stopping: Diet Low Sodium, Low Cholesterol Sodium 2 gm, Low Cholesterol- Choose foods that are low in cholesterol, saturated fat, tota l fat and have low to moderate sodium levels. Activity No activity restrictions however it is advisable not to over exert yourself as you recover Destination: Destination: Home Condition on Discharge Good FOLLOW-UP 1. You will need follow-up in the [facility] infectious disease clinic, they will call you to jennifer ramos an appointment however if you haven't heard from them the phone number is [phone] . 2. Follow-up with Marly Greco MD in SaturdayAug 21 at 3:15 (phone number [phone]) 3. Follow-up in October with Dr. Hampton. Other Discharge Orders and Instructions Home health RN for picc management and need weekly lab draw including CBC, CMP, ESR and CRP to be faxed to [facility] OPAT clinic (phone [phone] and fax [phone]) Outstanding labs/studies: final blood culture data, currently with three negative cultures, most recent negative after 72 hours. Discharging Physician: SANDER CHANDLER MD Attending Physician: Sander Chandler MD [facility] DEPARTMENT: Hosp ([facility]) - [phone] Place of Service: [facility] Date of Service: 08/09/2011 [facility] [phone] Modifiers:GC Resident Involved: No Service: PRIMARY HOSPITALIST Suggested CPT: 95309 Discharge Management > 30 minute I spent more than 50 minutes [id number] with the patient of which greater than 50% was sp ent counseling the patient regarding discussing medications, hypertension and plan of care. documented in this enc ounter Discharge Instructions Instructions Yousif Llanes - 08/09/2011Patient Education Materials: Additional Instructions: Discharge Nurse: Yousif Llanes Date: 08/09/2011 Discharge Time: 11:39 AM documented in this encounter Medications at Time [...] + + + +---------+ + + | Fargo-3 Fatty | Take by mouth. | | 0 | | | | Acids-Vitamin E | | | | | | | (FISH OIL) 1,000 mg | | | | | | | Oral Capsule | | | | | | + + + +---------+ + + documented as of this encounter Progress Notes Sander Chandler MD - 08/08/2011 10:01 AM PST INPATIENT HOSPITALIST PROGRESS NOTE Hospital Day:7 Author; SANDER CHANDLER MD Attending Physician: Sander Chandler MD Interval Hx: --no events overnight, yesterday CRISTIAN without valvular Subjective: Tylor Olivera states that he feels well overall. He has no chest pain or shortness of breath. No other new complaints. States he slept well and was hoping to discharge today. Objective: Current Inpatient Medications Medication Dose Route Frequency amLODIPine (aka NORVASC) tablet 10 mg 10 mg Oral DAILY aspirin EC tablet 81 mg 81 mg Oral DAILY cyclobenzaprine (aka FLEXERIL) tablet 5 mg 5 mg Oral TID PRN dextrose injection 25 mL 25 mL Intravenous PRN diphenhydrAMINE (aka BENADRYL) capsule 25 mg 25 mg Oral Q6H PRN ferrous sulfate tablet 325 mg 325 mg Oral BID glucagon (aka GLUCAGEN) injection 1 mg 1 mg Intramuscular PRN glucose chewable tablet 16 g 16 g Oral Q15MIN PRN guaiFENesin LA (aka MUCINEX) tablet 600 mg 600 mg Oral BID heparin injection 5,000 Units 5,000 Units Subcutaneous Q12H hydrALAZINE (aka APRESOLINE) tablet 25 mg 25 mg Oral TID HYDROmorphone (aka DILAUDID) injection 0.5 mg 0.5 mg Intravenous Q6H PRN menthol-zinc oxide (aka CALAZIME) topical paste Topical QID PRN metoprolol tartrate (aka LOPRESSOR) tablet 25 mg 25 mg Oral BID multivitamin 1 Cap 1 Cap Oral DAILY NaCl 0.9 % IV 100 mL/hr Intravenous CONTINUOUS nafcillin IV (minibag+) 2 g 2 g Intravenous Q4H nitroglycerin (aka NITROSTAT) tablet 0.4 mg 0.4 mg Sublingual Q5MIN PRN ondansetron (aka ZOFRAN) injection 4 mg 4 mg Intravenous Q12H PRN oxyCODONE immediate release (aka ROXICODONE) tablet 5-10 mg 5-10 mg Oral Q4H PRN polyethylene glycol (aka MIRALAX) powder 17 g 17 g Oral DAILY PRN senna-docusate (aka SENOKOT S) 8.6-50 mg 1 Tab 1 Tab Oral BID PRN zolpidem (aka AMBIEN) tablet 5 mg 5 mg Oral HS PRN Physical Exam: Last Vitals: BP 137/77 | Pulse 77 | Temp 37.1 C (98.8 F) | RR 18 | Ht 175.3 cm (5' 9") | Wt 81.058 kg (178 lb 11.2 oz) | SpO2 97% | BMI 26.39 kg/(m^2) O2 Delivery Device: None (ro om air) (08/08/11 0716) 24 Hour Vital Min/Max: Systolic (24hrs), Av mmHg, Min:132 mmHg, Max:150 mmHgDiastolic (24hrs), Av mmHg, M in:68 mmHg, Max:77 mmHgPulse Av Min: 75 Max: 78 Temp Av.9 C (98.5 F) Min: 36.5 C (97.7 F) Max: 37.4 C (99.3 F) Resp Av.5 Min: 16 Max: 18 SpO2 Av.3 % Min: 95 % Max: 99 % Intake/Output Summary (Last 24 hours) at 08/08/11 1001 Last data filed at 08/08/11 0900 Gross per 24 hour Intake 2340 ml Output 5300 ml Net -2960 ml General: well appearing man in no acute distress comfortably breathing room air. HEENT: Perrla. Eomi. No scleral icterus CVS: rrr, heart sounds one and two are normal with no added, sounds, no murmurs. RS: lungs clear to auscultation with no wheeze or crackles. Abd: abdomen soft, nontender, nondistended with no organomegaly and no guarding or rigidity . Extremities: no cyanosis, clubbing or oedema. Data: Recent Labs Basename 08/08/11 0607 08/07/11 0550 08/06/11 0540 NA QNS 133* 133* K QNS 3.4 3.6 CL QNS 96* 98 BICARB QNS 26 27 BUN QNS 12 14 CR QNS 1.36* 1.42* GLU QNS 106* 155* CA QNS 8.5* 8.2* MG QNS 2.1 2.0 Recent Labs Basename 08/08/11 0607 08/07/11 0550 08/06/11 0540 WBC Clotted 7.5 8.2 HB Clotted 9.3* 8.9* HCT Clotted 27.3* 26.2* PLT Clotted 453* 414* Recent Labs Basename 08/08/11 0607 08/07/11 0550 08/06/11 0540 AST QNS 49* 46* ALT QNS 66* 65* TBILI QNS 1.5* 1.6* AP QNS 284* 308* ALB QNS 2.3* 1.9* TP QNS 6.1 5.8* Assessment and Plan: Tylor Olivera is a 66 year old man with a history of hyperlipidemia, hypertension an d rectal cancer s/p adjuvant chemo (01/2011) and XRT in 05/2010 and ileostomy formation in 2010 admitted with MSSA bactermia of unknown source. 1. MSSA sepsis Cultures had been positive with most recent culture positive on 08/04/11 and first negative on 08/05. Cultures still pending from 08/06 and two cultures from 08/07/2011. No clear infectio us source found to date including after MRI spine, CT c/a/p. Noted to have sacral fracture o n MRI. --changed to nafcillin on 08/02/2011, plan for ceftriaxone at home with opat follow-up --CRISTIAN 08/07/2011 negative, cardiology review of patient including clinical status --when cultures negative for 48 hours will need picc placed --CT scan with cystitis but repeat UA without evidence of infection 2. Acute kidney injury with haematuria Thought secondary to infection or contrast load, currently with negative UA, negative urine eosinophils, imaging did not show hydronephrosis. I/O show very net negative for the admiss ion despite fluid boluses. 3. Hypertension SBP improved with medication and pain control. Currently on metoprolol and amlodipine, with hydralazine. If continues to be well controlled will decrease or stop hydralazine. 4. Leg pain Much improved, some question about if could have had myositis with fluid in the psoas but w ithout abscess. CK low on admission. Flexeril and pain medication prn helping. 5. Chest pain Had chest pain without any evidence of ischaemia with normal troponin. Chest pain was pleur itic in nature but without PE or CTA on imaging. 6. Anaemia Currently stable without any recent drop, iron studies show low iron percent sat and reorde red ferritin as add on today. Vitamin b12 normal and folate not low. 7. History of rectal cancer Hx of ileostomy 07/2010, adjuvant chemo 01/2011 and XRT in 05/2010 with planned take down thi s spring, Dr. Hampton updated. 8. Tranaminitis Thought to be tylenol and previously on statin, now improving. No mets commented on in live r on CT study. --now off statin --continue daily LFT 9. Hyperglycaemia a1c pending, last 5.4 in 07/2010 10. Pulmonary hypertension Seen on TTE, some possible report of sleep apnoea symptoms but no clear diagnosis, suggest outpt sleep study. Diet: 2g restricted DVT: heparin SQ FULL CODE SANDER CHANDLER MD Clinical Hospitalist EPIC DEPARTMENT: Hosp ([facility]) - [phone] Place of Service: - Date of Service: 08/08/2011 [facility] [phone] Modifiers:GC Resident Involved: No Service: PRIMARY HOSPITALIST Suggested CPT: 71452 Subsequent Visit Detailed/High complexity 35 min I spent more than 35 minutes [id number] with the patient of which greater than 50% was sp ent counseling the patient regarding infection and plan of care. Maricruz Looney - 07/16 9:55 AM PSTTransesophageal echocardiogram completed today. Final report to follow. Sander Bettencourt MD - 08/07 6:57 AM PST INPATIENT HOSPITALIST PROGRESS NOTE Hospital Day:6 Author; SANDER CHANDLER MD Attending Physician: Ginger Salazar MD Interval Hx: --had CRISTIAN without any valvular findings Subjective: Tylor lOivera states that he had some pain overnight in his chest pain. He denies a ny shortness of breath or fevers. He has some recurrent leg pain but much improved from pre viously when admitted. He states that he was sleepy today because of the procedures and med ications but that he had been out of bed yesterday walking on the floor. He states that he was told about possible snoring/apneoic episodes when sleeping but his did not note any and he has no history of daytime somnulence, napping or morning headaches. Objective: Current Inpatient Medications Medication Dose Route Frequency amLODIPine (aka NORVASC) tablet 10 mg 10 mg Oral DAILY aspirin EC tablet 81 mg 81 mg Oral DAILY cyclobenzaprine (aka FLEXERIL) tablet 5 mg 5 mg Oral TID PRN dextrose injection 25 mL 25 mL Intravenous PRN diphenhydrAMINE (aka BENADRYL) capsule 25 mg 25 mg Oral Q6H PRN ferrous sulfate tablet 325 mg 325 mg Oral BID glucagon (aka GLUCAGEN) injection 1 mg 1 mg Intramuscular PRN glucose chewable tablet 16 g 16 g Oral Q15MIN PRN guaiFENesin LA (aka MUCINEX) tablet 600 mg 600 mg Oral BID heparin injection 5,000 Units 5,000 Units Subcutaneous Q12H hydrALAZINE (aka APRESOLINE) tablet 25 mg 25 mg Oral TID HYDROmorphone (aka DILAUDID) injection 0.5 mg 0.5 mg Intravenous Q6H PRN menthol-zinc oxide (aka CALAZIME) topical paste Topical QID PRN metoprolol tartrate (aka LOPRESSOR) tablet 25 mg 25 mg Oral BID multivitamin 1 Cap 1 Cap Oral DAILY nafcillin IV (minibag+) 2 g 2 g Intravenous Q4H nitroglycerin (aka NITROSTAT) tablet 0.4 mg 0.4 mg Sublingual Q5MIN PRN ondansetron (aka ZOFRAN) injection 4 mg 4 mg Intravenous Q12H PRN oxyCODONE immediate release (aka ROXICODONE) tablet 5-10 mg 5-10 mg Oral Q6H PRN polyethylene glycol (aka MIRALAX) powder 17 g 17 g Oral DAILY PRN senna-docusate (aka SENOKOT S) 8.6-50 mg 1 Tab 1 Tab Oral BID PRN Physical Exam: Last Vitals: BP 132/66 | Pulse 85 | Temp 36.8 C (98.2 F) | RR 20 | Ht 175.3 cm (5' 9") | Wt 83.3 kg (183 lb 10.3 oz) | SpO2 95% | BMI 27.12 kg/(m^2) O2 Delivery Device: None (room air) (08/07/11 0406) 24 Hour Vital Min/Max: Systolic (24hrs), Av mmHg, Min:132 mmHg, Max:154 mmHgDiastolic (24hrs), Av mmHg, M in:66 mmHg, Max:81 mmHgPulse Av.3 Min: 69 Max: 85 Temp Av.9 C (98.4 F) Min: 36.7 C (98.1 F) Max: 37.1 C (98.8 F) Resp Av Min: 20 Max: 20 SpO2 Av.7 % Min: 92 % Max: 97 % Intake/Output Summary (Last 24 hours) at 08/07/11 0657 Last data filed at 08/07/11 0605 Gross per 24 hour Intake 3294 ml Output 5900 ml Net -2606 ml General: well appearing man in no acute distress comfortably breathing room air. HEENT: [place]. [place]. No scleral icterus CVS: rrr, heart sounds one and two are normal with no added, sounds, no murmurs. RS: lungs clear to auscultation with no wheeze or crackles. Abd: abdomen soft, nontender, nondistended with no organomegaly and no guarding or rigidity . Extremities: no cyanosis, clubbing or oedema. Chemistries: Last 72 Hours (or 3 results): Recent Labs Basename 08/07/11 0550 08/06/11 0540 08/05/11 0536 NA 133* 133* 133* K 3.4 3.6 3.5 CL 96* 98 99 BICARB 26 27 24 BUN 12 14 19 CR 1.36* 1.42* 1.46* GLU 106* 155* 143* CA 8.5* 8.2* 8.3* MG 2.1 2.0 2.2 Recent Labs Basename 08/07/11 0550 08/06/11 0540 08/05/11 0536 WBC 7.5 8.2 9.8 HB 9.3* 8.9* 10.3* HCT 27.3* 26.2* 30.5* PLT 453* 414* 401* Liver Tests: Last 72 hours (or 3 results) Recent Labs Basename 08/07/11 0550 08/06/11 0540 08/05/11 0536 AST 49* 46* 33 ALT 66* 65* 74* TBILI 1.5* 1.6* 2.3* AP 284* 308* 419* ALB 2.3* 1.9* 2.1* TP 6.1 5.8* 6.2 Assessment and Plan: Tylor Olivera is a 66 year old man with a history of hyperlipidemia, hypertension an d rectal cancer s/p adjuvant chemo (01/2011) and XRT in 05/2010 and ileostomy formation in 2010 admitted with MSSA bactermia of unknown source. 1. MSSA sepsis Cultures had been positive with most recent culture positive on 08/04/11 and first negative on 08/05. Cultures still pending from 08/06 and two cultures from 08/07/2011. No clear infect ious source found to date including after MRI spine, CT c/a/p. Noted to have sacral fractur e on MRI. --changed to nafcillin on 08/02/2011 --CRISTIAN today negative --when cultures negative for 48 hours will need picc placed though unclear duration of ther apy (?4-6 weeks for presumed infection of hardware) --CT scan with cystitis but repeat UA without evidence of infection 2. Acute kidney injury with haematuria Thought secondary to infection or contrast load, currently with negative UA, negative urine eosinophils, imaging did not show hydronephrosis. I/O show very net negative for the admis shayy despite fluid boluses. 3. Hypertension SBP improved with medication and pain control. Currently on metoprolol and amlodipine, wit h hydralazine. If continues to be well controlled will decrease or stop hydralazine. 4. Leg pain Much improved, some question about if could have had myositis with fluid in the psoas but w ithout abscess. CK low on admission. Flexeril and pain medication prn helping. 5. Chest pain Had chest pain without any evidence of ischaemia with normal troponin. Chest pain was pleu ritic in nature but without PE or CTA on imaging. 6. Anaemia Currently stable without any recent drop, iron studies show low iron percent sat and reorde red ferritin as add on today. Vitamin b12 normal and folate not low. 7. History of rectal cancer Hx of ileostomy 07/2010, adjuvant chemo 01/2011 and XRT in 05/2010 with planned take down thi s spring, Dr. Hampton updated. 8. Tranaminitis Thought to be tylenol and previously on statin, now improving. No mets commented on in jace er on CT study. --now off statin --continue daily LFT 9. Hyperglycaemia a1c pending, last 5.4 in 07/2010; will start CBG checks and insulin sliding scale 10. Pulmonary hypertension Seen on TTE, some possible report of sleep apnoea symptoms but no clear diagnosis, suggest outpt sleep study. Diet: 2g restricted DVT: heparin SQ FULL CODE SANDER CHANDLER MD Clinical Hospitalist [facility] DEPARTMENT: Hosp ([facility]) - [phone] Place of Service: [facility] Date of Service: 08/07/2011 [facility] [phone] Modifiers:GC Resident Involved: No Service: PRIMARY HOSPITALIST Suggested CPT: 12581 Subsequent Visit Detailed/High complexity 35 min I spent more than 35 minutes [id number] with the patient of which greater than 50% was sp ent counseling the patient regarding infection, hypertension, apenoea symptoms and plan of c are. Ginger Grubbs MD - 7:27 AM PST CLINICAL HOSPITALIST SERVICE ([facility])-PROGRESS NOTE HOSPITAL DAY: 5 Author: GINGER SALAZAR MD 24-HOUR EVENTS & SUBJECTIVE: Pt feels improved. No CP at all, leg pain. No SOB. Still a spot tender on leg hip. Walked yesterday and had Good night sleep Blood cultures still positive from 08/04/[address] [facility] Physical Exam: Vitals (Most recent): BP 154/81 | Pulse 75 | Temp 36.7 C (98.1 F) | RR 20 | Ht 175.3 cm (5' 9") | Wt 83.144 kg (183 lb 4.8 oz) | SpO2 92% | BMI 27.07 kg/(m^2) 24 Hour Vital Min/Max: Systolic (24hrs), Av mmHg, Min:145 mmHg, Max:167 mmHg Diastolic (24hrs), Av mmHg, Min:66 mmHg, Max:84 mmHg Pulse Min: 75 Max: 95 Temp Min: 36.5 C (97.7 F) Max: 37.4 C (99.4 F) Resp Min: 20 Max: 24 SpO2 Min: 92 % Max: 98 % General : Elderly male, comfortable, Awake, oriented X 3. Heent: Moist oral mucosa, mild pallor. Neck: Supple, No JVD. Cardiovascular: S1 S2 regular, no murmur. Respiratory: Normal vesicular breath sounds, air entry much improved today. Gastrointestinal: Abdomen is soft, nondistended, nontender, bowel sounds +. Ileostomy +, Musculoskeletal: No peripheral edema. Specific spot tender on Left hip, but decreased tende rness, LLE good range of motion, but greatly improved. No rash or ecchymosis. Intake/Output Summary (Last 24 hours) at 08/06/11 07 Last data filed at 08/06/11 0700 Gross per 24 hour Intake 4576 ml Output 7125 ml Net -2549 ml Studies: CBC with diff last 72 hours (or 3 results) Recent Labs Basename 08/06/11 0540 08/05/11 0536 08/04/11 0820 WBC 8.2 9.8 6.8 HB 8.9* 10.3* 9.6* HCT 26.2* 30.5* 27.7* PLT 414* 401* 301 NEUTROPERC -- -- -- BANDPCT -- -- -- LYMPHPERC -- -- -- MONOPERC -- -- -- BASOPERC -- -- -- EOSPERC -- -- -- Chemistries: Last 72 Hours (or 3 results): Recent Labs Basename 08/06/11 0540 08/05/11 0536 08/04/11 0820 NA 133* 133* 136 K 3.6 3.5 3.8 CL 98 99 101 BICARB 27 24 23 BUN 14 19 23* CR 1.42* 1.46* 1.55* GLU 155* 143* 92 CA 8.2* 8.3* 8.2* MG 2.0 2.2 2.1 PO4 -- -- -- Lab Results Component Value Date GLU 155* 08/06/2011 GLU 143* 08/05/2011 GLU 92 08/04/2011 Microbiology: MSSA from 07/30. 07/22, 08/02, 08/04 cultures 08/05 cultures pending Imaging Studies: CT IMPRESSION: No acute abnormality. Specifically, no bowel obstruction or abdominal pelvic abscess. Tiny left pleural effusion and trace left lower quadrant free flu id likely reflecting volume overload. Mildly thickened bladder with minimal perivesical stra nding possibly reflecting cystitis. Correlate with urinalysis. Current Meds: amLODIPine (aka NORVASC) tablet 10 mg, 10 mg, Oral, DAILY aspirin EC tablet 81 mg, 81 mg, O ral, DAILY cyclobenzaprine (aka FLEXERIL) tablet 5 mg, 5 mg, Oral, TID PRN diphenhydrAMINE ( aka BENADRYL) capsule 25 mg, 25 mg, Oral, Q6H PRN guaiFENesin LA (aka MUCINEX) tablet 600 mg , 600 mg, Oral, BID heparin injection 5,000 Units, 5,000 Units, Subcutaneous, Q12H hydrALAZI NE (aka APRESOLINE) injection 10 mg, 10 mg, Intravenous, Q4H PRN HYDROmorphone (aka DILAUDID) injection 0.5-1 mg, 0.5-1 mg, Intravenous, Q4H PRN menthol-zin c oxide (aka CALAZIME) topical paste, , Topical, QID PRN metoprolol tartrate (aka LOPRESSOR) tablet 12.5 mg, 12.5 mg, Oral, Q6H multivitamin 1 Cap, 1 Cap, Oral, DAILY NaCl 0.9 % IV, 10 0 mL/hr, Intravenous, CONTINUOUS nafcillin IV (minibag+) 2 g, 2 g, Intravenous, Q4H nitrogly cerin (aka NITROSTAT) tablet 0.4 mg, 0.4 mg, Sublingual, Q5MIN PRN oxyCODONE immediate release (aka ROXICODONE) tablet 5-15 mg, 5-15 mg, Oral, Q3H PRN senna-d ocusate (aka SENOKOT S) 8.6-50 mg 1 Tab, 1 Tab, Oral, BID PRN sodium bicarbonate 150 mEq in dextrose 5% IV infusion, 1-3 mL/kg/hr, Intravenous, CONTINUOUS traZODone (aka DESYREL) dose 25 mg, 25 mg, Oral, HS PRN Assessment/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 male with a history of hyperlipidemia, H TN (not on treatment), and rectal cancer s/p chemo - completed adjuvant therapy 01/2011, XRT last in 05/2010, and ileostomy formation 07/2010with MSSA bacteremia with unknown source. MSSA sepsis: pt cultures still positive after antibiotics for 4-5 days. no clear infectious source so far. -switched to nafcillin on 08/02/2011. -called cardiology for CRISTIAN, NPO for CRISTIAN tomorrow -Once cultures Negative will need PICC -cultures sent today -ct SCAN WITH CYSTITIS: Repeat UA TODAY JERRICA with hematuria: most likely due to sepsis, metastatic complication from MSSA, contrast load. improving Continue IVf for renal protection, then will dc fluids. -pt polyuric, and has been making >4L UOP/day. Will have to confirm with him as he is docum ented 11L negative in spite of continuous IVF and boluses, but clinically he looks euvolemic . HTN: pt denies h/o HTN or being treated for HTN; however on has multiple documented high SB Ps. SBP elevated to 180s upon admission. Improving, pain under control and BP still uncontro lled - On norvasc and metoprolol -will add hydralazine 25 tid -not on diuretics as pt already negative Leg pain: much improved. Used dilaudid only once. myositis? Not OM, or pathological fractur e or metastasis. -flexeril helping the pt. Pain much better Decreased the frequency. Chest pain: resolved. doesn't look like cardiac as trop not elevated, echo no WMA. But pleu ritic and high d dimer (h/o cancer), Ct negative for dissection and PE Anemia: normocytic. H/H at previous hospital 8.5-10. No e/o bleeding currently. Continue to monitor. stable Iron deficiency: iron supplements. Vit B12 and folate pending History of rectal cancer: s/p chemo - completed adjuvant therapy 01/2011, XRT last in 06/03 10, and ileostomy formation 07/2010 with planned take-down this spring. -care of ileostomy -called Dr. Hampton (colorectal surgeon who did his previous surgery) and updated him. Transaminits: sepsis, tylenol, Has been on statin as outpatient. Given prior malignancy, me tastatic disease is always on differential; other likely dx: medications, EtOH abuse. No kno wn history of liver disease. - dc statin -continue to monitor LFTs daily -holding acetaminophen -Improved Hyperglycemia: m/l due to D5 IVf with NaHCO3 as previous FSG were wnl. -but will check HbA1c as last was 1 year back 5.4 07/2010 Hyperlipidemia: hold atorvastatin - as lft high Feeding : 2 gram salt restricted diet. Thromboprophylaxis: Heparin SQ Bowel regimen: Senekot-s PRN Access/Lines/Tubes: Peripheral IVs. Code Status: Full code Talked with PCP: dr. Philip and updated him. Updated the and sister GINGER SALAZAR MD Instructor of Medicine Clinical Hospitalist Service Pager: [phone] [facility] DEPARTMENT: Hosp ([facility]) - [phone] Place of Service: - [id number] Date of Service: 08/06/2011 [facility] [phone] Modifiers:GC Resident Involved: No Service: PRIMARY HOSPITALIST Suggested CPT: 56249 Subsequent Visit Detailed/High complexity 35 min I spent more than 40 minutes [id number] with the patient of which greater than 50% was sp ent counseling the patient. Ginger Grubbs MD - 0 08/05/2011 1:09 PM PST CLINICAL HOSPITALIST SERVICE ([facility])-PROGRESS NOTE HOSPITAL DAY: 4 Author: GINGER SALAZAR MD 24-HOUR EVENTS & SUBJECTIVE: says pain is at least 75% better today. Feels good after so long. Had a good night sleep.i p not tender, more mobile. Feels congested, no sputum, no chills or fever Physical Exam: Vitals (Most recent): BP 167/84 | Pulse 76 | Temp 36.5 C (97.7 F) | RR 24 | Ht 175.3 cm (5' 9") | Wt 84.5 kg (186 lb 4.6 oz) | SpO2 98% | BMI 27.51 kg/(m^2) 24 Hour Vital Min/Max: Systolic (24hrs), Av mmHg, Min:136 mmHg, Max:167 mmHg Diastolic (24hrs), Av mmHg, Min:73 mmHg, Max:84 mmHg Pulse Min: 70 Max: 78 Temp Min: 36.5 C (97.7 F) Max: 37.8 C (100 F) Resp Min: 20 Max: 24 SpO2 Min: 95 % Max: 98 % General : Elderly male, comfortable, Awake, oriented X 3. Heent: Moist oral mucosa, mild pallor. Neck: Supple, No JVD. Cardiovascular: S1 S2 regular, no murmur. Respiratory: Normal vesicular breath sounds b/, but with decreased air entryl. Gastrointestinal: Abdomen is soft, nondistended, nontender, bowel sounds +. Ileostomy +, fu ll with BM. Musculoskeletal: No peripheral edema. Not Tender on Left hip, decreased ROM of LLE, but gre atly improved. No rash or ecchymosis. Pulses b/l equal on UE. Intake/Output Summary (Last 24 hours) at 08/05/11 1309 Last data filed at 08/05/11 1244 Gross per 24 hour Intake 3660 ml Output 5975 ml Net -2315 ml Studies: CBC with diff last 72 hours (or 3 results) Recent Labs Basename 08/05/11 0536 08/04/11 0820 08/03/11 0005 WBC 9.8 6.8 6.8 HB 10.3* 9.6* 9.2* HCT 30.5* 27.7* 26.8* PLT 401* 301 247 NEUTROPERC -- -- -- BANDPCT -- -- -- LYMPHPERC -- -- -- MONOPERC -- -- -- BASOPERC -- -- -- EOSPERC -- -- -- Chemistries: Last 72 Hours (or 3 results): Recent Labs Basename 08/05/11 0536 08/04/11 0820 08/03/11 1837 08/03/11 0005 NA 133* 136 135 -- K 3.5 3.8 4.0 -- CL 99 101 100 -- BICARB 24 23 25 -- BUN 19 23* 17 -- CR 1.46* 1.55* 1.50* -- GLU 143* 92 106* -- CA 8.3* 8.2* 8.2* -- MG 2.2 2.1 -- 2.2 PO4 -- -- -- -- Lab Results Component Value Date GLU 143* 08/05/2011 GLU 92 08/04/2011 GLU 106* 08/03/2011 Microbiology: GPC> staph Current Meds: amLODIPine (aka NORVASC) tablet 5 mg, 5 mg, Oral, DAILY aspirin EC tablet 81 mg, 81 mg, Ora l, DAILY cyclobenzaprine (aka FLEXERIL) tablet 5 mg, 5 mg, Oral, TID PRN diphenhydrAMINE (ak a BENADRYL) capsule 25 mg, 25 mg, Oral, Q6H PRN guaiFENesin LA (aka MUCINEX) tablet 600 mg, 600 mg, Oral, BID heparin injection 5,000 Units, 5,000 Units, Subcutaneous, Q12H hydrALAZINE (aka APRESOLINE) injection 10 mg, 10 mg, Intravenous, Q4H PRN HYDROmorphone (aka DILAUDID) injection 0.5-1 mg, 0.5-1 mg, Intravenous, Q4H PRN menthol-zin c oxide (aka CALAZIME) topical paste, , Topical, QID PRN metoprolol tartrate (aka LOPRESSOR) tablet 12.5 mg, 12.5 mg, Oral, Q6H multivitamin 1 Cap, 1 Cap, Oral, DAILY NaCl 0.9 % IV, 10 0 mL/hr, Intravenous, CONTINUOUS nafcillin IV (minibag+) 2 g, 2 g, Intravenous, Q4H nitrogly cerin (aka NITROSTAT) tablet 0.4 mg, 0.4 mg, Sublingual, Q5MIN PRN oxyCODONE immediate release (aka ROXICODONE) tablet 5-15 mg, 5-15 mg, Oral, Q3H PRN senna-d ocusate (aka SENOKOT S) 8.6-50 mg 1 Tab, 1 Tab, Oral, BID PRN sodium bicarbonate 150 mEq in dextrose 5% IV infusion, 1-3 mL/kg/hr, Intravenous, CONTINUOUS traZODone (aka DESYREL) dose 25 mg, 25 mg, Oral, HS PRN Assessment/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 male with a history of hyperlipidemia, H TN, and rectal cancer s/p chemo - completed adjuvant therapy 01/2011, XRT last in 05/2010, a nd ileostomy formation 07/2010with MSSA bacteremia with unknown source. # MSSA sepsis: pt cultures still positive after antibiotics for 2 days. no clear infectious source so far. OSH blood cultures MSSA -blood cultures from 08/01 here GPC positive -no cultures sent on 08/03. 08/04 still pending- - switched to nafcillin on 08/02/2011. -CT A/P tomorrow. -CRISTIAN most likely will be needed if ct a/p negative. Once cultures Negative will need PICC Will send cultures today again JERRICA with hematuria: most likely due to sepsis, metastatic complication from MSSA, contrast load. improving Congestion with gurgling: no sputum. guanfacine Leg pain: much improved. Used dilaudid only once. myositis? Not OM, or pathological fractur e or metastasis. -flexeril helping the pt. Pain much better dilaudid prn with oxycodone Chest pain: resolved. doesn't look like cardiac as trop not elevated, echo no WMA. But pleu ritic and high d dimer (h/o cancer), Ct negative for dissection and PE -# History of rectal cancer: s/p chemo - completed adjuvant therapy 01/2011, XRT last in , and ileostomy formation 07/2010 with planned take-down this spring. MRI sacral lesion needing further evaluation infection vs metastatic. -care of ileostomy # transaminits: sepsis, tylenol, Has been on statin as outpatient. Given prior malignancy, metastatic disease is always on differential; other likely dx: medications, EtOH abuse. No k nown history of liver disease. - dc statin -continue to monitor LFTs daily -holding acetaminophen Improved # HTN: pt denies h/o HTN or being treated for HTN; however on has multiple documented high SBPs. SBP elevated to 180s upon admission. Could also be associated with pain or ETOH intake ; however pt not currently in pain. -increased norvasc # Hypomagnesemia: resolved # Ileostomy: no change in output nor color. Mention of lesion on stoma - not noted on exam. -ostomy care # Anemia: normocytic. H/H at previous hospital 9-. No e/o bleeding currently. Continue to monitor. - iron panel, B12 and folate pending # Hyperlipidemia: hold atorvastatin - as lft high # Feeding : Regular diet. # Thromboprophylaxis: Heparin SQ # Bowel regimen: Senekot-s PRN # Access/Lines/Tubes: Peripheral IVs. # Code Status: Full code GINGER SALAZAR MD Instructor of Medicine Clinical Hospitalist Service Pager: [phone] [facility] DEPARTMENT: Hosp ([facility]) - [phone] Place of Service: - Date of Service: 08/05/2011 [facility] [phone] Modifiers:GC Resident Involved: No Service: PRIMARY HOSPITALIST Suggested CPT: 83975 Subsequent Visit Detailed/High complexity 35 min I spent more than 38 minutes [id number] with the patient of which greater than 50% was sp ent counseling the patient. inger Salazar MD - 0 08/04/2011 7:54 AM PST CLINICAL HOSPITALIST SERVICE ([facility])-PROGRESS NOTE HOSPITAL DAY: 3 Author: GINGER SALAZAR MD 24-HOUR EVENTS & SUBJECTIVE: feels better. Pain better control. Says feels congested. No cough or sputum, no SOB Physical Exam: Vitals (Most recent): BP 154/74 | Pulse 71 | Temp 37.2 C (99 F) | RR 22 | Ht 175.3 cm ( 5' 9") | Wt 84.5 kg (186 lb 4.6 oz) | SpO2 97% | BMI 27.51 kg/(m^2) 24 Hour Vital Min/Max: Systolic (24hrs), Av mmHg, Min:132 mmHg, Max:162 mmHg Diastolic (24hrs), Av mmHg, Min:61 mmHg, Max:76 mmHg Pulse Min: 70 Max: 83 Temp Min: 37.2 C (99 F) Max: 38.1 C (100.5 F) Resp Min: 20 Max: 24 SpO2 Min: 95 % Max: 99 % General : Elderly male, Awake, oriented X 3. Heent: Moist oral mucosa, mild pallor. Neck: Supple, No JVD. Cardiovascular: S1 S2 regular, no murmur. Respiratory: Normal vesicular breath sounds b/, but with decreased air entryl. Gastrointestinal: Abdomen is soft, nondistended, nontender, bowel sounds +. Ileostomy +, fu ll with BM. Musculoskeletal: No peripheral edema. Tender on Left hip, decreased ROM of LLE, but improve d. No rash or ecchymosis. Pulses b/l equal on UE. Intake/Output Summary (Last 24 hours) at 08/04/11 0754 Last data filed at 08/04/11 0600 Gross per 24 hour Intake 4020 ml Output 5590 ml Net -1570 ml Studies: CBC with diff last 72 hours (or 3 results) Recent Labs Basename 08/03/11 0005 08/02/11 0005 08/01/11 1638 WBC 6.8 6.6 6.9 HB 9.2* 8.7* 9.2* HCT 26.8* 25.1* 26.6* PLT 247 159 163 NEUTROPERC -- -- 90* BANDPCT -- -- -- LYMPHPERC -- -- 3* MONOPERC -- -- 6 BASOPERC -- -- 0 EOSPERC -- -- 1 Chemistries: Last 72 Hours (or 3 results): Recent Labs Basename 08/03/11 1837 08/03/11 0005 08/02/11 0006 08/01/11 1638 NA 135 132* 132* -- K 4.0 3.9 3.6 -- CL 100 98 102 -- BICARB 25 26 24 -- BUN 17 15 14 -- CR 1.50* 1.47* 1.11 -- GLU 106* 102* 109* -- CA 8.2* 8.4* 8.3* -- MG -- 2.2 1.7* 2.1 PO4 -- -- -- -- Lab Results Component Value Date GLU 106* 08/03/2011 GLU 102* 08/03/2011 GLU 109* 08/02/2011 CRP 15 Microbiology: GPC Imaging Studies: CTA negative Current Meds: aspirin EC tablet 81 mg, 81 mg, Oral, DAILY cyclobenzaprine (aka FLEXERIL) tablet 5 mg, 5 m g, Oral, TID PRN diphenhydrAMINE (aka BENADRYL) capsule 25 mg, 25 mg, Oral, Q6H PRN heparin injection 5,000 Units, 5,000 Units, Subcutaneous, Q12H hydrALAZINE (aka APRESOLINE) injectio n 10 mg, 10 mg, Intravenous, Q4H PRN HYDROmorphone (aka DILAUDID) injection 0.5-1 mg, 0.5-1 mg, Intravenous, Q4H PRN lidocaine (aka LIDODERM) 5 %(700 mg/patch) 1 Patch, 1 Patch, Transdermal, Q24H menthol-zinc oxide (aka CALAZIME) topical paste, , Topical, QID PRN metoprolol tartrate (aka LOPRESSOR) tablet 12.5 mg, 12.5 mg, Oral, Q6H multivitamin 1 Cap, 1 Cap, Oral, DAILY NaCl 0.9 % IV, 100 mL/hr, Intravenous, CONTINUOUS nafcillin IV (minibag+) 2 g, 2 g, Intravenous, Q4H nitroglyc elvira (aka NITROSTAT) tablet 0.4 mg, 0.4 mg, Sublingual, Q5MIN PRN oxyCODONE immediate release (aka ROXICODONE) tablet 5-15 mg, 5-15 mg, Oral, Q3H PRN pneumoc occal (23-valent) polysaccharide vaccine (aka PNEUMOVAX) injection 0.5 mL, 0.5 mL, Intramusc ular, ONE TIME IN THE MORNING REMOVE lidocaine patch, , Transdermal, Q24H senna-docusate (ak a SENOKOT S) 8.6-50 mg 1 Tab, 1 Tab, Oral, BID PRN traZODone (aka DESYREL) dose 25 mg, 25 mg , Oral, HS PRN Assessment/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 male with a history of hyperlipidemia, H TN, and rectal cancer s/p chemo - completed adjuvant therapy 01/2011, XRT last in 05/2010, a nd ileostomy formation 07/2010with MSSA bacteremia with unknown source. # MSSA sepsis: no clear infectious source so far. -blood cultures from 08/01 here GPC positive -OSH blood cultures MSSA - switched to nafcillin on 08/02/2011. -CT A/P tomorrow if creat ok. -CRISTIAN if needed as MR present. Waiting for records from PCP for previous echo. CPK normal -blood cultures today Chest pain: doesn't look like cardiac as trop not elevated, echo no WMA. But pleuritic and high d dimer (h/o cancer), Ct negative for dissection and PE Leg pain: myositis? Not OM, or pathological fracture or metastasis. -flexeril helping the pt. Pain much better dilaudid prn with oxycodone JERRICA with hematuria: most likely due to sepsis, metastatic complication from MSSA, contrast load. IVF -# History of rectal cancer: s/p chemo - completed adjuvant therapy 01/2011, XRT last in , and ileostomy formation 07/2010 with planned take-down this spring. MRI sacral lesion needing further evaluation infection vs metastatic. -care of ileostomy -colostomy take down planned for the future -bowel regimen while on pain meds # transaminits: sepsis, tylenol, Has been on statin as outpatient. Given prior malignancy, metastatic disease is always on differential; other likely dx: medications, EtOH abuse. No k nown history of liver disease. - dc statin -continue to monitor LFTs daily -holding acetaminophen -ondansetron PRN for nausea Improved # Hyponatremia: Improved . # HTN: pt denies h/o HTN or being treated for HTN; however on has multiple documented high SBPs. SBP elevated to 180s upon admission. Could also be associated with pain or ETOH intake ; however pt not currently in pain. -add norvasc to metoprolol As BP high # Hypomagnesemia: resolved # Ileostomy: no change in output nor color. Mention of lesion on stoma - not noted on exam. -ostomy care # Anemia: normocytic. H/H at previous hospital 9-10. No e/o bleeding currently. Continue t o monitor. - iron panel, B12 and folate pending # Hyperlipidemia: hold atorvastatin - as lft high # Feeding : Regular diet. # Thromboprophylaxis: Heparin SQ # Bowel regimen: Senekot-s PRN # Access/Lines/Tubes: Peripheral IVs. # Code Status: Full code GINGER SALAZAR MD Instructor of Medicine Clinical Hospitalist Service Pager: [phone] [facility] DEPARTMENT: Hosp ([facility]) - [phone] Place of Service: - Date of Service: 08/04/2011 [facility] [phone] Modifiers:GC Resident Involved: No Service: PRIMARY HOSPITALIST Suggested CPT: 95542 Subsequent Visit Detailed/High complexity 35 min I spent more than 45 minutes [id number] with the patient of which greater than 50% was sp ent counseling the patient. uhelga, MD Ginger - 0 08/03/2011 9:54 AM PST CLINICAL HOSPITALIST SERVICE ([facility])-PROGRESS NOTE HOSPITAL DAY: 2 Author: GINGER SALAZAR MD 24-HOUR EVENTS & SUBJECTIVE: Pt had a episode of CP in am, trop negative, no EKG changes. Reduced to 6-7/10 with nitrogl ycerine and oxycodone. Currently Pt has CP 8/10 radiated between his shoulder blade. Pleuritic, some SOB associat ed with it. C/o pain in left hip 5-6/10, more on extension. But improved from before as earlier couldn' t even do SLR. No rash. Some itching present. No D/C/N/V/burning micturition/cough Physical Exam: Vitals (Most recent): BP 132/70 | Pulse 70 | Temp 37.5 C (99.5 F) | RR 20 | Ht 175.3 cm (5' 9") | Wt 84.5 kg (186 lb 4.6 oz) | SpO2 98% | BMI 27.51 kg/(m^2) 24 Hour Vital Min/Max: Systolic (24hrs), Av mmHg, Min:122 mmHg, Max:160 mmHg Diastolic (24hrs), Av mmHg, Min:59 mmHg, Max:138 mmHg Pulse Min: 67 Max: 95 Temp Min: 37.2 C (99 F) Max: 37.6 C (99.6 F) Resp Min: 14 Max: 27 SpO2 Min: 94 % Max: 99 % General : Elderly male, uncomfortable from pain, Awake, oriented X 3. Heent: Moist oral mucosa, mild pallor. Neck: Supple, No JVD. Cardiovascular: S1 S2 regular, no murmur. Chest pain not reproducible currently (notes in p ast mentioned that it was reproducible) Respiratory: Normal vesicular breath sounds b/, but with decreased air entryl. Gastrointestinal: Abdomen is soft, nondistended, nontender, bowel sounds +. Ileostomy +, fu ll with BM. Musculoskeletal: No peripheral edema. Tender on Left hip, decreased ROM of LLE. Decreased e xtension. SLR positive. No rash or ecchymosis. Pulses b/l equal on UE. Intake/Output Summary (Last 24 hours) at 08/03/11 0955 Last data filed at 08/03/11 0930 Gross per 24 hour Intake 1480 ml Output 5525 ml Net -4045 ml Studies: CBC with diff last 72 hours (or 3 results) Recent Labs Basename 08/03/11 0005 08/02/11 0005 08/01/11 1638 WBC 6.8 6.6 6.9 HB 9.2* 8.7* 9.2* HCT 26.8* 25.1* 26.6* PLT 247 159 163 NEUTROPERC -- -- 90* BANDPCT -- -- -- LYMPHPERC -- -- 3* MONOPERC -- -- 6 BASOPERC -- -- 0 EOSPERC -- -- 1 Chemistries: Last 72 Hours (or 3 results): Recent Labs Basename 08/03/11 0005 08/02/11 0006 08/02/11 0005 08/01/11 1638 NA 132* 132* Dup req -- K 3.9 3.6 Dup req -- CL 98 102 Dup req -- BICARB 26 24 Dup req -- BUN 15 14 Dup req -- CR 1.47* 1.11 Dup req -- GLU 102* 109* Dup req -- CA 8.4* 8.3* Dup req -- MG 2.2 1.7* -- 2.1 PO4 -- -- -- -- Lab Results Component Value Date GLU 102* 08/03/2011 GLU 109* 08/02/2011 GLU Dup req 08/02/2011 FOBT negative Microbiology: Culture data: 07/30 OSH blood cultures x2 sets --> gram-positive cocci 07/31 OSH blood cultures x2 sets --> NGTD 08/01 blood cultures x2 sets - no growth so far Imaging Studies: TTE 08/02/2011 Final Impressions: 1. The left ventricular cavity size is normal. 2. The LV systolic function is normal. 3. Moderately increased RV wall thickness. 4. Severely elevated right ventricular systolic pressure. 5. There are no valvular vegetations noted, howevere there is a degree of mitral regurgitat ion that cannot be fully explained. A CRISTIAN may be warrantedif clinically indicated. 6. There are no prior echos available for comparison. MRI pelvis w/o contrast from outside facility: I reviewed it with our radiologist here. No signs of osteomyelitis on Left hip , no metastasis. Sacral undisplaced fracture as befor e. Increased edema at the obturator, piriformis muscle. ?? Myositis Current Meds: aspirin EC tablet 81 mg, 81 mg, Oral, DAILY cyclobenzaprine (aka FLEXERIL) tablet 5 mg, 5 m g, Oral, TID PRN diphenhydrAMINE (aka BENADRYL) capsule 25 mg, 25 mg, Oral, Q6H PRN heparin injection 5,000 Units, 5,000 Units, Subcutaneous, Q12H hydrALAZINE (aka APRESOLINE) injectio n 10 mg, 10 mg, Intravenous, Q4H PRN HYDROmorphone (aka DILAUDID) injection 0.5-1 mg, 0.5-1 mg, Intravenous, Q4H PRN lidocaine (aka LIDODERM) 5 %(700 mg/patch) 1 Patch, 1 Patch, Transdermal, Q24H menthol-zinc oxide (aka CALAZIME) topical paste, , Topical, QID PRN metoprolol tartrate (aka LOPRESSOR) tablet 12.5 mg, 12.5 mg, Oral, Q6H multivitamin 1 Cap, 1 Cap, Oral, DAILY NaCl 0.9 % IV, 100 mL/hr, Intravenous, CONTINUOUS nafcillin IV (minibag+) 2 g, 2 g, Intravenous, Q4H nitroglyc elvira (aka NITROSTAT) tablet 0.4 mg, 0.4 mg, Sublingual, Q5MIN PRN oxyCODONE immediate release (aka ROXICODONE) tablet 5-15 mg, 5-15 mg, Oral, Q3H PRN pneumoc occal (23-valent) polysaccharide vaccine (aka PNEUMOVAX) injection 0.5 mL, 0.5 mL, Intramusc ular, ONE TIME IN THE MORNING REMOVE lidocaine patch, , Transdermal, Q24H senna-docusate (ak a SENOKOT S) 8.6-50 mg 1 Tab, 1 Tab, Oral, BID PRN traZODone (aka DESYREL) dose 25 mg, 25 mg , Oral, HS PRN Assessment/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 male with a history of hyperlipidemia, H TN by chart review, and rectal cancer s/p chemo - completed adjuvant therapy 01/2011, XRT la st in 05/2010, and ileostomy formation 07/2010 with planned take-down this spring who was tr ansferred from [facility] in [facility] with MSSA bacteremia with unknown sourc e. # MSSA sepsis: no clear infectious source so far. OSH blood cultures reportedly growing gra m positive cocci. Final read as MSSA, switched to nafcillin on 08/02/2011. MRI reveals myositis. Not sure if that's the source of bacteremia or a metastatic complicat ion of MSSA bacteremias. Myositis can be from if we see any leak in the colon as s/p surgery and radiation (talked with Dr. Hampton, he doesn't think there is a communication there, whi ch can cause the leak.) . Can be from Infective endocarditis but TTE shows no vegetation. H ad MR, not sure id it's new, might need CRISTIAN for better evaluation. -will order CPK, ESR, CRP - Continue Nafcillin started 08/02/2011. -ID consult for recs -lactic acid wnl Chest pain: doesn't look like cardiac as trop not elevated, echo no WMA. But pleuritic and high d dimer (h/o cancer), also dropping Hb with pain in between shoulder blades (14.8 to 8. 7), will get CTA to r/o slow dissection. --pain control Leg pain: myositis? Not OM, or pathological fracture or metastasis. -dilaudid prn with oxycodone JERRICA with hematuria: most likely due to sepsis, metastatic complication from MSSA. IVF -UA lytes -# History of rectal cancer: s/p chemo - completed adjuvant therapy 01/2011, XRT last in , and ileostomy formation 07/2010 with planned take-down this spring. MRI sacral lesion needing further evaluation infection vs metastatic. -care of ileostomy -colostomy take down planned for the future -bowel regimen while on pain meds # Hyponatremia: Improved to 132. Was 127 on admission labs at OSH. Continue to monitor. # transaminits: sepsis, tylenol, Has been on statin as outpatient. Given prior malignancy, metastatic disease is always on differential; other likely dx: medications, EtOH abuse. No k nown history of liver disease. - dc statin -continue to monitor LFTs daily -holding acetaminophen -ondansetron PRN for nausea # Chronic headaches: reportedly without a headache today. Has been taking acetaminophen/exc edrin/ibuprofen four times daily and has been previously told to cut down on NSAID intake. M ay be rebound headaches. -holding NSAIDs # HTN: pt denies h/o HTN or being treated for HTN; however on has multiple documented high SBPs. SBP elevated to 180s upon admission. Could also be associated with pain or ETOH intake ; however pt not currently in pain. Continue metoprolol and hydralazine PRN # Hypomagnesemia: replaced. -daily mag level # Ileostomy: no change in output nor color. Mention of lesion on stoma - not noted on exam. -ostomy care # Anemia: normocytic. Baseline Hct around 34. No e/o bleeding currently. Continue to monito r. - iron panel, B12 and folate pending # Hyperlipidemia: hold atorvastatin - as lft high # Feeding : Regular diet. # Thromboprophylaxis: Heparin SQ # Bowel regimen: Senekot-s PRN # Access/Lines/Tubes: Peripheral IVs. # Code Status: Full code GINGER SALAZAR MD Instructor of Medicine Clinical Hospitalist Service Pager: [phone] [facility] DEPARTMENT: Hosp ([facility]) - [phone] Place of Service: - Date of Service: 08/03/2011 [facility] [phone] Modifiers:GC Resident Involved: No Service: PRIMARY HOSPITALIST Suggested CPT: 66150- Prolonged E+ M- Before and/or after direct ([id number]) patient c are( eg, review of extensive records & tests, communication with other professionals and/or the patient/family); first hour I spent more than 75 minutes [id number] with the patient of which greater than 50% was sp ent counseling the patient. Reviewed records with radiology. dw ID and surgery. acodinorah, Ginger Sebastian MD - 08/03/2011 6:12 AM PST CLINICAL HOSPITALIST SERVICE ([facility])-PROGRESS NOTE HOSPITAL DAY: 2 Author: GINGER JAIN MD Subjective: Called by RN to see the patient as the patient felt the pain was worse than usu al and not relieved by pain meds. No h/o heart disease. Reports pains across the chest, ? pleuritic component with soreness and tenderness over the chest wall, pains across the back and in the lower extremities. No sob, nausea, cough, hemo ptysis, dizziness. No h/o pains in the ribs. Feels thirsty. Physical Exam: Vitals (Most recent): BP 145/68 | Pulse 72 | Temp 37.4 C (99.4 F) | RR 20 | Ht 175.3 cm (5' 9") | Wt 84.5 kg (186 lb 4.6 oz) | SpO2 98% | BMI 27.51 kg/(m^2) General : Elderly male, uncomfortable from pain, no tachypnea or diaphoresis. Awake. Heent: Moist oral mucosa, mild pallor. Neck: Supple, No JVD. Cardiovascular: 1st and 2nd Heart sounds with regular rhythm. Respiratory: Normal vesicular breath sounds b/, but with decreased air entryl. Gastrointestinal: Abdomen is soft, nondistended, nontender, bowel sounds +. Ileostomy +. Musculoskeletal: No peripheral edema. Intake/Output Summary (Last 24 hours) at 08/03/11 0613 Last data filed at 08/03/11 0438 Gross per 24 hour Intake 1670 ml Output 4425 ml Net -2755 ml Studies: Chemistries: Last 72 Hours (or 3 results): Recent Labs Basename 08/02/11 0006 08/02/11 0005 08/01/11 1638 NA 132* Dup req 132* K 3.6 Dup req 3.9 CL 102 Dup req 100 BICARB 24 Dup req 22 BUN 14 Dup req 15 CR 1.11 Dup req 1.10 GLU 109* Dup req 127* CA 8.3* Dup req 8.3* MG 1.7* -- 2.1 PO4 -- -- -- CBC with diff last 72 hours (or 3 results) Recent Labs Basename 08/02/11 0005 08/01/11 1638 WBC 6.6 6.9 HB 8.7* 9.2* HCT 25.1* 26.6* PLT 159 163 NEUTROPERC -- 90* BANDPCT -- -- LYMPHPERC -- 3* MONOPERC -- 6 BASOPERC -- 0 EOSPERC -- 1 Lab Results Component Value Date GLU 109* 08/02/2011 GLU Dup req 08/02/2011 GLU 127* 08/01/2011 Microbiology: CULTURE RESULT (no units) Date Value 08/01/2011 Blood Culture Source..................: Peripheral Blood Resul t................... Preliminary: No growth at 1 day. Imaging Studies: X-RAY PORTABLE CHEST 1 VIEW (no units) Date Value Range Status 08/01/2011 Final Value: STUDY: TX CHEST 1 VIEW 08/01/11 18:30:00 COMPARISON: Outside chest radiographs dated 07/30/11. HISTORY: History of rectal cancer. Bacteremia and chest pain. FINDINGS: The cardiomediastinal silhouette is within normal limits. There are mildly low lung volumes with mild bibasilar subsegmental atelectasis. The lungs are otherwise clear without focal consolidation. There is no hydrostatic edema, pneumothorax or pleural effusion. Marked right glenohumeral degenerative changes are noted. IMPRESSION: Mildly low lung volumes with mild bibasilar subsegmental atelectasis. Attending Radiologists: Javon Fernandez M.D. Author: Geraldo Moreau M.D. I have personally viewed this procedure/exam, reviewed this report, and made changes to it where appropriate. Final/Electronically signed / Javon Fernandez 08/02/2011 13:53 PM EK08/03/2011 : NSR, short QT with peaked T waves V3 to V6. Current Meds: aspirin EC tablet 81 mg, 81 mg, Oral, DAILY atorvastatin (aka LIPITOR) tablet 80 mg, 80 mg, Oral, DAILY cyclobenzaprine (aka FLEXERIL) tablet 5 mg, 5 mg, Oral, TID PRN diphenhydrAMINE (aka BENADRYL) capsule 25 mg, 25 mg, Oral, Q6H PRN heparin injection 5,000 Units, 5,000 Uni ts, Subcutaneous, Q12H hydrALAZINE (aka APRESOLINE) injection 10 mg, 10 mg, Intravenous, Q4H PRN lidocaine (aka LIDODERM) 5 %(700 mg/patch) 1 Patch, 1 Patch, Transdermal, Q24H menthol-zinc oxide (aka CALAZIME) topical paste, , Topical, QID PRN metoprolol tartrate (aka LOPRESSOR) tablet 12.5 mg, 12.5 mg, Oral, Q6H morphine injection Inj 2-4 mg, 2-4 mg, Intravenous, Q4H P RN multivitamin 1 Cap, 1 Cap, Oral, DAILY nafcillin IV (minibag+) 2 g, 2 g, Intravenous, Q4H nitroglycerin (aka NITROSTAT) tablet 0.4 mg, 0.4 mg, Sublingual, Q5MIN PRN oxyCODONE immediate release (aka ROXICODONE) tablet 5-15 mg, 5-15 mg, Oral, Q3H PRN REMOVE lidocaine patch, , Transdermal, Q24H senna-docusate (aka SENOKOT S) 8.6-50 mg 1 Tab, 1 Tab, Oral, BID PRN traZODone (aka DESYREL) dose 25 mg, 25 mg, Oral, HS PRN Assessment/Plan:Tylor Olivera is a 66 y.o. male with a history of hyperlipidemia, HT N by chart review, and rectal cancer s/p chemo - completed adjuvant therapy 01/2011, XRT las t in 05/2010, and ileostomy formation 07/2010 with planned take-down this spring who was tra nsferred from [facility] in [facility], [place] with bacteremia. # Chest pain: he has been having chest pain prior to admission and has thus far ruled out f or MD. The history is also not suggestive of CAD. His radial pulses are equal, doubt an aneu rysm. He could have ASCVD with CAD or aneurysm, VTE, esophageal spasm or musculoskeletal viviane ns either from metastatic disease or ? bony septic infarcts from the bacteremia. Repeat EKG does not suggest CAD. He does have appear to be having a PE. No tachycardia ( he is on betablockers), no hypoxemi a or tachypnea. The pain could be musculoskeletal. With his h/o GI cancer he could have bony mets and is at increased risk for PE as well. EKG done. Given sublingual NTG. Serial troponins. Continue tele, asa, statin and betabocker . Check d-dimer and LE venous dopplers. Lidoderm patch Review imaging with Radiology. # Code Status: Full code GINGER JAIN MD [address] [employer] Clinical Hospitalist Service [facility] EPIC DEPARTMENT: Hosp ([facility]) - [phone] Place of Service: - Date of Service: 08/03/2011 [facility] [phone] Modifiers:GC Resident Involved: No Service: PRIMARY HOSPITALIST Suggested CPT: 02818 Subsequent Visit Exp Prob Foc/Mod Complexity 25 min I spent more than 30 minutes [id number] with the patient of which greater than 50% was s pent co-ordinating care Ginger García MD - 08/02/2011 8:44 PM PST CLINICAL HOSPITALIST SERVICE ([facility])- ACCEPT/PROGRESS NOTE HOSPITAL DAY: 1 Author: GINGER JAIN MD Subjective: Very sleepy.Eating and drinking well. No back ache at this time, feeling much b karina. Reports pains in the left hip Interval History: Tylor Olivera is a 66 y.o. Male with rectal carcinoma who was transferred from [facility] in [facility], [place] with bacteremia. He has a history of hyperlipidemia, HTN by chart review, and rectal cancer s/p chemo - completed adjuvant therapy 01/2011, XRT last in 05/2010, and ileostomy formation 07/2010 with planned take-down this spring. He was admitte d to OSH on 07/30 with severe back pain which began last Saturday (1 week ago) and progressi vely worsened. Pt reports the pain is constant, non-radiating, and located in his lower back . He self-treated with some pain medications that he had left over from a past surgery, but by Saturday the pain was so severe that he could no longer walk. The pain medications were not providing any relief, so he called EMT's who took him to the hospital. Of note, pt had back pain several years ago and had an L4-L5 vertebral fusion surgery. He w as free of back pain until several months ago when he was revaluated for his back pain with an MRI. MRI revealed a sacral lesion of unknown etiology. Differentials include fracture vs. metastatic disease. He was discussed at GI oncology conference 07/26/11 where his case histo ry and imaging was reviewed. PET scan in 06/2001 was reported to show "geographic left sacra l ala FDG hypermetabolism most likely representing insufficiency fracture; however bone scan and pelvic MRI are more consistent with metastatic disease. Would consider biopsy of bone l esion. Per musculoskeletal radiologist, the lesion did not appear to be metastatic disease b ut further testing was recommended. MRI with contrast and PSA (free and total) were recommen ded. It appears that pt received MRI without contrast at OSH. Outside hospital course: -left hip pain --> concern for septic joint -febrile to 104.5 degrees -gram positive cocci in blood cultures x 2 sets without an infection source -infectious work-up negative, including: CXR negative, UA negative -began treatment with vancomycin and unasyn -pt began having "chest discomfort" so antibiotics were changed to levofloxacin and meropen em -difficult to control pain, pt on hydromorphone drip -MRI without contrast of prior sacral fracture --> "improvement without evidence of infecti on" -ortho consult: not consistent with septic joint, consider psoas abscess vs. possible bowel leak into iliac area -for workup of chest pain -no EKG changes -trops trended to 0.09 --> 0.14 --> 0.11 -pain control with nitro and hydromorphone -worsening normocytic anemia -no e/o gross bleeding -hemoccult positive -due to poor pain control and continued fevers --> transfer to [facility] Upon arrival at [facility] MICU he was noted to be alert, oriented and conversant. He further ahsan cribed his chest pain as pain that actually starts in his left shoulder posteriorly and move s to his anterior left chest. The pain is reproducible with palpation. It occurs intermitten tly. No prior episodes of similar chest pain, shortness of breath or diaphoresis with nausea independent of the pain. Of note, pt reports that for his chronic headaches, he takes a combination of acetaminophen , excedrin, and ibuprofen four times daily. He has not seen his PCP in approx. two years. Pe r chart review: pt's reported to the surgery RN that he has a "purple looking barnacle" on his stoma for which biopsy is being considered. Physical Exam: Vitals (Most recent): BP 122/59 | Pulse 77 | Temp 37.2 C (99 F) | RR 14 | Ht 175.3 cm ( 5' 9") | Wt 87.6 kg (193 lb 2 oz) | SpO2 94% | BMI 28.52 kg/(m^2) 24 Hour Vital Min/Max: Systolic (24hrs), Av mmHg, Min:96 mmHg, Max:168 mmHg Diastolic (24hrs), Av mmHg, Min:59 mmHg, Max:138 mmHg Pulse Min: 71 Max: 95 Temp Min: 37 C (98.6 F) Max: 37.6 C (99.7 F) Resp Min: 14 Max: 27 SpO2 Min: 90 % Max: 99 % General : Well built male, sleepy. Heent: Dryt oral mucosa, mild pallor +. Neck: Supple, No JVD. Cardiovascular: 1st and 2nd Heart sounds with regular rhythm. No rubs, gallops or murm urs. Respiratory: Normal vesicular breath sounds b/l. Gastrointestinal: Abdomen is soft, nondistended, nontender, Ileostomy bag with Small amou nt of dark content, bowel sounds +. Musculoskeletal: No peripheral edema. Moving all four limbs. Intake/Output Summary (Last 24 hours) at 08/02/112043 Last data filed at 08/02/11 1800 Gross per 24 hour Intake 1960 ml Output 4100 ml Net -2140 ml Studies: Chemistries: Last 72 Hours (or 3 results): Recent Labs Basename 08/02/11 0006 08/02/11 0005 08/01/11 1638 NA 132* Dup req 132* K 3.6 Dup req 3.9 CL 102 Dup req 100 BICARB 24 Dup req 22 BUN 14 Dup req 15 CR 1.11 Dup req 1.10 GLU 109* Dup req 127* CA 8.3* Dup req 8.3* MG 1.7* -- 2.1 Liver Tests: Last 72 hours (or 3 results) Recent Labs Basename 08/02/11 0006 08/01/11 1638 AST 53* 43* ALT 107* 111* TBILI 1.0 1.2 AP 317* 284* ALB 2.2* 2.4* TP 5.7* 6.1 CBC with diff last 72 hours (or 3 results) Recent Labs Basename 08/02/11 0005 08/01/11 1638 WBC 6.6 6.9 HB 8.7* 9.2* HCT 25.1* 26.6* PLT 159 163 NEUTROPERC -- 90* LYMPHPERC -- 3* MONOPERC -- 6 BASOPERC -- 0 EOSPERC -- 1 Lab Results Component Value Date GLU 109* 08/02/2011 GLU Dup req 08/02/2011 GLU 127* 08/01/2011 Microbiology: No cultures sent from here Imaging Studies: X-RAY PORTABLE CHEST 1 VIEW (no units) Date Value Range Status 08/01/2011 Final Value: STUDY: TX CHEST 1 VIEW 08/01/11 18:30:00 COMPARISON: Outside chest radiographs dated 07/30/11. HISTORY: History of rectal cancer. Bacteremia and chest pain. FINDINGS: The cardiomediastinal silhouette is within normal limits. There are mildly low lung volumes with mild bibasilar subsegmental atelectasis. The lungs are otherwise clear without focal consolidation. There is no hydrostatic edema, pneumothorax or pleural effusion. Marked right glenohumeral degenerative changes are noted. IMPRESSION: Mildly low lung volumes with mild bibasilar subsegmental atelectasis. Attending Radiologists: Javon Fernandez M.D. TTE 08/02/2011 Final Impressions: 1. The left ventricular cavity size is normal. 2. The LV systolic function is normal. 3. Moderately increased RV wall thickness. 4. Severely elevated right ventricular systolic pressure. 5. There are no valvular vegetations noted, howevere there is a degree of mitral regurgitat ion that cannot be fully explained. A CRISTIAN may be warrantedif clinically indicated. 6. There are no prior echos available for comparison. Lab Results Component Value Date INRPT 1.07 08/01/2011 Lab Results Component Value Date TROPONIN 0.07 08/02/2011 TROPONIN 0.07 08/02/2011 TROPONIN Combined. 08/02/2011 Current Meds: aspirin EC tablet 81 mg, 81 mg, Oral, DAILY atorvastatin (aka LIPITOR) tablet 80 mg, 80 mg, Oral, DAILY cyclobenzaprine (aka FLEXERIL) tablet 5 mg, 5 mg, Oral, TID PRN diphenhydrAMINE (aka BENADRYL) capsule 25 mg, 25 mg, Oral, Q6H PRN heparin injection 5,000 Units, 5,000 Uni ts, Subcutaneous, Q12H hydrALAZINE (aka APRESOLINE) injection 10 mg, 10 mg, Intravenous, Q4H PRN menthol-zinc oxide (aka CALAZIME) topical paste, , Topical, QID PRN metoprolol tartrate (aka LOPRESSOR) tablet 12.5 mg, 12.5 mg, Oral, Q6H multivitamin 1 Cap, 1 Cap, Oral, DAILY nafcillin IV (minibag+) 2 g, 2 g, Intravenous, Q4H oxyCODONE immediate re lease (aka ROXICODONE) tablet 5-15 mg, 5-15 mg, Oral, Q3H PRN senna-docusate (aka SENOKOT S) 8.6-50 mg 1 Tab, 1 Tab, Oral, BID PRN traZODone (aka DESYREL) dose 25 mg, 25 mg, Oral, HS P 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 male with a history of hyperlipidemia, HTN by chart review, and rectal cancer s/p chemo - completed adjuvant therapy 01/2011, XRT l ast in 05/2010, and ileostomy formation 07/2010 with planned take-down this spring who was t ransferred from [facility] in [facility], [place] with bacteremia. # Bacteremia: no infectious source. OSH blood cultures reportedly growing gram positive co cci. I don't see any speciation documented but am assuming that he has MSSA as he has been s tarted on Nafcillin from today. No findings on exam pointing to infection source. - Continue Nafcillin started 08/02/2011. -f/u OSH blood cultures - direct phone number to OSH lab: -07/30 OSH blood cultures x2 sets --> gram-positive cocci -07/31 OSH blood cultures x2 sets --> NGTD -08/01 blood cultures x2 sets - pending -lactic acid wnl -repeat CXR -f/u UTI panel -requested official read of MRI from OSH, to be review with radiology here -TTE done no vegetations -consult ID regarding duration of treatment # History of rectal cancer: s/p chemo - completed adjuvant therapy 01/2011, XRT last in 2009, and ileostomy formation 07/2010 with planned take-down this spring. MRI sacral lesion needing further evaluation infection vs metastatic. -care of ileostomy -colostomy take down planned for the future -bowel regimen while on pain meds # Back pain: in the setting of sacral lesion seen on MRI, needs further clarification. Curr ently improved. Oxycodone PO PRN, hydromorphone IV PRN to continue. # Sacral lesion on MRI: unclear etiology. Presented at GI oncology conference 07/26/11. PET scan 06/2001 with "geographic left sacral ala FDG hypermetabolism most likely representing i nsufficiency fracture; however bone scan and pelvic MRI are more consistent with metastatic disease; recommended considering biopsy of bone lesion. Per musculoskeletal radiologist, the lesion did not appear to be metastatic disease but further testing was recommended. MRI wit h contrast PSA (free and total) were also recommended. It appears that pt received MRI witho ut contrast at OSH. -requested official MRI read from OSH, needs review by and with radiology here as well -follow up PSA (free and total) -CEA pending -ggt elevated (in the setting of elevated alk phos) # Hyponatremia: Improved to 132. Was 127 on admission labs at OSH. Continue to monitor. # Elevated alk phos, AST, ALT: normal t bili. no coagulopathy. No associated abdominal pain . Pt does reports drinking at least 2 drinks of gin nightly. He also takes acetaminophen/exc edrin/ibuprofen four times daily to treat his chronic headaches. Has been on statin as outpa tient. Given prior malignancy, metastatic disease is always on differential; other likely dx : medications, EtOH abuse. No known history of liver disease. - ggt elevated, so the alk phos must be from the liver -continue to monitor LFTs daily -holding acetaminophen -ondansetron PRN for nausea # Chronic headaches: reportedly without a headache today. Has been taking acetaminophen/exc edrin/ibuprofen four times daily and has been previously told to cut down on NSAID intake. M ay be rebound headaches. -holding NSAIDs # Chest pain: given its reproducibility and origin from his back, it does not appear to be cardiac in origin. Concern at OSH for cardiac etiology, thus trops trended (0.09 --> 0.14 -- > 0.11). EKG normal without ST changes. Has good HR control, but BP above goal. -tele -EKG in AM -trops wnl -continue further risk stratification if suspicion rises -continue asa daily -hydralazine PRN for BP control -continue statin # HTN: pt denies h/o HTN or being treated for HTN; however on has multiple documented high SBPs. SBP elevated to 180s upon admission. Could also be associated with pain or ETOH intake ; however pt not currently in pain. Continue metoprolol and hydralazine PRN # Hypomagnesemia: replaced IV today. Follow levels and supplement as needed. -daily mag level # Ileostomy: no change in output nor color. Mention of lesion on stoma - not noted on exam. -ostomy care # Anemia: normocytic. Baseline Hct around 34. No e/o bleeding currently. Continue to monito r. - iron panel, B12 and folate pending # Hyperlipidemia: unknown last lipid panel (follows with outside PCP). Has been taking ator vastatin without mention of intolerance previously. -continue atorvastatin - would hold Atorvastatin if LFT's exceed More than x 3 times upper limit of the range Follow LFTs closely daily # Feeding : Regular diet. # Thromboprophylaxis: Heparin SQ # Bowel regimen: Senekot-s PRN # Access/Lines/Tubes: Peripheral IVs. # Code Status: Full code GINGER JAIN MD [facility] [employer] Clinical Hospitalist Service [facility] EPIC DEPARTMENT: Hosp ([facility]) - [phone] Place of Service: Date of Service: 08/02/2011 CSN [id number] Modifiers:GC Resident Involved: No Service: PRIMARY HOSPITALIST Suggested CPT: 10208 Prolonged Service [id number]-hc-[id number] 1st Hour (30-74 min beyond initial/sub) I spent more than 35 minutes [id number] with the patient of which greater than 50% was sp ent co-ordinating care Estevan Wood MD - 12:01 PM PST MICU ATTENDING PROGRESS NOTE Author: ESTEVAN STRINGER MD Attending Physician: Edgar Hampton MD Assessment and Plan: I personally interviewed the patient, performed the mccoy elements of the physical examinatio n, and personally formulated the assessment and plan with the MICU resident and the team. Se e resident note for details. Chest pain is of uncertain etiology. Troponin was negative. Watch for alcohol withdrawal, had some mental status issue which could be ICU delirium vs. alcohol withdrawal. Has now been admitted for three days. GPC cocci bacteremia with unclear source. Vanc level tonight/ ? Unclear reason for drop in crit ? hemodilutional Follow echocardiography results. Start beta michele, ASA Decrease NSAID use. MRI's to be reviewed by radiology here will try to arrange. Discuss plans with Dr. Hampton. Basic work up for anemia. Transfer to floor. ESTEVAN STRINGER MD [facility] [address] [id number] [facility] [address] I spent 35 min in care (not including procedures) [facility] DEPARTMENT: MICU, [facility]- [phone] Place of Service: Date of Service: 08/02/2011 CSN: [id number] Modifiers:GC Resident Involved: yes Suggested CPT: 05552 Subsequent Visit Detailed/High complexity 35 min Current Meds: Current Inpatient Medications Medication Dose Route Frequency alvimopan (aka ENTEREG) capsule 12 mg 12 mg Oral PREPROCEDURE ONCE atorvastatin (aka LIPITOR) tablet 80 mg 80 mg Oral DAILY ertapenem (aka INVANZ) IV (minibag+) 1 g 1 g Intravenous PREPROCEDURE ONCE heparin injection 5,000 Units 5,000 Units Subcutaneous Q12H hydrALAZINE (aka APRESOLINE) injection 10 mg 10 mg Intravenous Q4H PRN HYDROmorphone (aka DILAUDID) injection 0.2-0.5 mg 0.2-0.5 mg Intravenous Q2H PRN lactated ringers IV 10 mL/hr Intravenous PROCEDURE CONTINUOUS lidocaine (aka XYLOCAINE) 10 mg/mL (1 %) injection Subcutaneous PREPROCEDURE PRN menthol-zinc oxide (aka CALAZIME) topical paste Topical QID PRN multivitamin 1 Cap 1 Cap Oral DAILY ondansetron (aka ZOFRAN) tablet 2 mg 2 mg Oral Q6H PRN oxyCODONE immediate release (aka ROXICODONE) tablet 5-15 mg 5-15 mg Oral Q3H PRN senna-docusate (aka SENOKOT S) 8.6-50 mg 1 Tab 1 Tab Oral BID PRN traZODone (aka DESYREL) dose 25 mg 25 mg Oral HS PRN vancomycin (aka VANCOCIN) IV 1.5 g 1.5 g Intravenous Q12H Physical Exam: BP 150/66 | Pulse 76 | Temp 37.6 C (99.7 F) | RR 15 | Ht 175.3 cm (5' 9") | Wt 87.6 kg (193 lb 2 oz) | SpO2 96% | BMI 28.52 kg/(m^2) Systolic (24hrs), Av mmHg, Min:96 mmHg, Max:184 mmHg Diastolic (24hrs), Av mmHg, Min:65 mmHg, Max:148 mmHg Pulse Av.2 Min: 63 Max: 84 Temp Av.1 C (98.7 F) Min: 36.6 C (97.9 F) Max: 37.6 C (99.7 F) Resp Av.6 Min: 14 Max: 25 SpO2 Av.2 % Min: 90 % Max: 99 % Intake/Output Summary (Last 24 hours) at 08/02/11 1201 Last data filed at 08/02/11 1000 Gross per 24 hour Intake 1680 ml Output 2900 ml Net -1220 ml Intake/Output Summary (since admission) at 08/01/11 1506 Last data filed at 08/02/11 1000 Gross for the last 1 days Intake 1680 ml Output 2900 ml Net since Admission -1220 ml CBC with diff last 72 hours (or 3 results) Recent Labs Basename 08/02/11 0005 08/01/11 1638 WBC 6.6 6.9 HB 8.7* 9.2* HCT 25.1* 26.6* PLT 159 163 NEUTROPERC -- 90* BANDPCT -- -- LYMPHPERC -- 3* MONOPERC -- 6 BASOPERC -- 0 EOSPERC -- 1 Chemistries: Last 72 Hours (or 3 results): Recent Labs Basename 08/02/11 0006 08/02/11 0005 08/01/11 1638 NA 132* Dup req 132* K 3.6 Dup req 3.9 CL 102 Dup req 100 BICARB 24 Dup req 22 BUN 14 Dup req 15 CR 1.11 Dup req 1.10 GLU 109* Dup req 127* CA 8.3* Dup req 8.3* MG 1.7* -- 2.1 PO4 -- -- -- Lab Results Component Value Date TROPONIN 0.07 08/02/2011 TROPONIN 0.07 08/02/2011 TROPONIN Combined. 08/02/2011 Lab Results Component Value Date PLT 159 08/02/2011 INRPT 1.07 08/01/2011 Liver Tests: Last 72 hours (or 3 results) Recent Labs Basename 08/02/11 0006 08/01/11 1638 AST 53* 43* ALT 107* 111* TBILI 1.0 1.2 AP 317* 284* ALB 2.2* 2.4* TP 5.7* 6.1 Lab Results Component Value Date LACTICACID 0.8 08/01/2011 Ida Christina MD - 07/15 6:45 AM PST TRANSFER NOTE Hospital Day: 1 Brief Hospital Course: Tylor Olivera is a 66 y.o. male with a history of hyperlipide rodríguez, HTN by chart review, and rectal cancer s/p chemo - completed adjuvant therapy 01/2011, XRT last in 05/2010, and ileostomy formation 07/2010 with planned take-down this spring who was transferred from [facility] in [facility], [place] with MSSA bacteremia. H&P from evening is pasted below with interval updates underneath. Pt was admitted to OSH on 07/30 with severe back pain. The back pain began last Saturday (1 week ago) and progressively worsened. Pt reports the pain is constant, non-radiating, and l ocated in his lower back. He self-treated with some pain medications that he had left over f rom a past surgery, but by Saturday the pain was so severe that he could no longer able to wal k. The pain medications were not providing any relief, thus he called EMS to be taken to the hospital. Of note, pt had back pain several years ago and had an L4-L5 vertebral fusion surgery. He w as free of back pain until several months ago when he was revaluated for his back pain with an MRI. MRI revealed a sacral lesion of unknown etiology. Differentials include fracture vs. metastatic disease. Pt was presented at GI oncology conference 07/26/11 where case was discu ssed and imaging was reviewed. PET scan 06/2001 with "geographic left sacral ala FDG hyperme tabolism most likely representing insufficiency fracture; however bone scan and pelvic MRI a re more consistent with metastatic disease. Would consider biopsy of bone lesion. Per muscul oskeletal radiologist, the lesion did not appear to be metastatic disease but further testin g was recommended. MRI with contrast PSA (free and total) were recommended. It appears that pt received MRI without contrast at OSH. Outside hospital course: -left hip pain --> concern for septic joint -febrile to 104.5 degrees -gram positive cocci in blood cultures x2 sets without an infection source -infectious work-up negative, including: CXR negative, UA negative -began treatment with vancomycin and unasyn -pt began having "chest discomfort" so antibiotics were changed to levofloxacin and meropen em -difficult to control pain, pt on hydromorphone drip -MRI without contrast of prior sacral fracture --> "improvement without evidence of infecti on" -ortho consult: not consistent with septic joint, consider psoas abscess vs. possible bowel leak into iliac area -for workup of chest pain -no EKG changes -trops trended to 0.09 --> 0.14 --> 0.11 -pain control with nitro and hydromorphone -worsening normocytic anemia -no e/o gross bleeding, hemoccult positive -due to poor pain control and continued fevers --> transfer to [facility] Upon arriving, pt is alert, oriented and conversant. He further describes his chest pain as pain that actually starts in his left shoulder posteriorly and moves to his anterior left c hest. The pain is reproducible with palpation. It occurs intermittently. No prior episodes o f chest pain similar. No associated shortness of breath, diaphoresis. He has been nauseated independent of the pain. Of note, pt reports that for his chronic headaches, he takes a combination of acetaminophen , excedrin, and ibuprofen four times daily. He has not seen his PCP in approx. two years. Pe r chart review: pt's reported to the surgery RN that he has a "purple looking barnacle" on his stoma for which biopsy is being considered Interval events/Subjective: pt reports left hip pain this AM and continued back pain. He al so is still having radiation of the back pain toward his chest. The chest pain component is relieved with putting pressure on his left anterior chest. Pain medications have helped co ntrol pain. Does have some itching "all over" that is mild. Reports feeling confused this morning when he woke up. Didn't remember where he was, but was able to figure it out after a while. Oriented x4. Objective: Vitals: Last Vitals: BP 151/66 | Pulse 95 | Temp 37.2 C (99 F) | RR 25 | Ht 175.3 cm (5' 9") | Wt 87.6 kg (193 lb 2 oz) | SpO2 95% | BMI 28.52 kg/(m^2) 24 Hour Vital Min/Max: Systolic (24hrs), Av mmHg, Min:96 mmHg, Max:168 mmHg Diastolic (24hrs), Av mmHg, Min:65 mmHg, Max:138 mmHg Pulse Min: 63 Max: 84 Temp Min: 36.6 C (97.9 F) Max: 37.2 C (99 F) Resp Min: 14 Max: 25 SpO2 Min: 90 % Max: 99 % Intake/Output Summary (Last 24 hours) at 08/02/11 0711 Last data filed at 08/02/11 0400 Gross per 24 hour Intake 1320 ml Output 2350 ml Net -1030 ml Physical Exam: General: no acute distress, alert, oriented x3 HEENT: normocephalic, atraumatic, non-icteric, clear conjunctivae, moist mucus membranes, c lear posterior oropharynx, poor dentition CV: regular rate and rhythm, no murmurs Pulm: clear to ausculation bilaterally, no wheezes/crackles Chest: tenderness to palpation over left anterior chest which feels mildly raised b/l Abdomen: soft, non-tender to palpation, no masses, non-distended, normo-active bowel sounds x4, colostomy in RLQ Extremities: no edema in lower extremities bilaterally MSK: no point tenderness over spine, no pain with internal/external rotation of b/l hips Current Meds: Scheduled Medications Medication Dose Route Frequency Last Rate aspirin EC tablet 81 mg 81 mg Oral DAILY atorvastatin (aka LIPITOR) tablet 80 mg 80 mg Oral DAILY heparin injection 5,000 Units 5,000 Units Subcutaneous Q12H metoprolol tartrate (aka LOPRESSOR) tablet 12.5 mg 12.5 mg Oral Q6H multivitamin 1 Cap 1 Cap Oral DAILY nafcillin IV (minibag+) 2 g 2 g Intravenous Q4H 2 g (08/02/11 1644) PRN Medications Medication Dose Route Frequency Last Rate cyclobenzaprine (aka FLEXERIL) tablet 5 mg 5 mg Oral TID PRN diphenhydrAMINE (aka BENADRYL) capsule 25 mg 25 mg Oral Q6H PRN hydrALAZINE (aka APRESOLINE) injection 10 mg 10 mg Intravenous Q4H PRN 10 mg (08/02/11 1315) menthol-zinc oxide (aka CALAZIME) topical paste Topical QID PRN oxyCODONE immediate release (aka ROXICODONE) tablet 5-15 mg 5-15 mg Oral Q3H PRN senna-docusate (aka SENOKOT S) 8.6-50 mg 1 Tab 1 Tab Oral BID PRN traZODone (aka DESYREL) dose 25 mg 25 mg Oral HS PRN Data: CBC with diff last 72 hours (or 3 results) Recent Labs Basename 08/02/11 0005 08/01/11 1638 WBC 6.6 6.9 HB 8.7* 9.2* HCT 25.1* 26.6* PLT 159 163 NEUTROPERC -- 90* BANDPCT -- -- LYMPHPERC -- 3* MONOPERC -- 6 BASOPERC -- 0 EOSPERC -- 1 Chemistries: Last 72 Hours (or 3 results): Recent Labs Basename 08/02/11 0006 08/02/11 0005 08/01/11 1638 NA 132* Dup req 132* K 3.6 Dup req 3.9 CL 102 Dup req 100 BICARB 24 Dup req 22 BUN 14 Dup req 15 CR 1.11 Dup req 1.10 CA 8.3* Dup req 8.3* MG 1.7* -- 2.1 PO4 -- -- -- Liver Tests: Last 72 hours (or 3 results) Recent Labs Basename 08/02/11 0006 08/01/11 1638 AST 53* 43* ALT 107* 111* TBILI 1.0 1.2 AP 317* 284* ALB 2.2* 2.4* TP 5.7* 6.1 INR Date Value Range Status 08/01/2011 1.07 0.90-1.20 (INR) Final Culture data: 07/30 OSH blood cultures x2 sets --> MSSA 07/31 OSH blood cultures x2 sets --> NGTD 08/01 blood cultures x2 sets - pending Radiology/Other Diagnostic Tests: Official read of OSH MRI sent --> no e/o infection per their read 08/01/11 - CXR STUDY: TX CHEST 1 VIEW 08/01/11 18:30:00 COMPARISON: Outside chest radiographs dated 07/30/11. HISTORY: History of rectal cancer. Bacteremia and chest pain. FINDINGS: The cardiomediastinal silhouette is within normal limits. There are mildly low yo ng volumes with mild bibasilar subsegmental atelectasis. The lungs are otherwise clear witho ut focal consolidation. There is no hydrostatic edema, pneumothorax or pleural effusion. Mar ked right glenohumeral degenerative changes are noted. IMPRESSION: Mildly low lung volumes with mild bibasilar subsegmental atelectasis. EKG: normal EKG, normal sinus rhythm 08/01 - TTE Final Impressions: 1. The left ventricular cavity size is normal. 2. The LV systolic function is normal. 3. Moderately increased RV wall thickness. 4. Severely elevated right ventricular systolic pressure. 5. There are no valvular vegetations noted, howevere there is a degree of mitral regurgitat ion that cannot be fully explained. A CRISTIAN may be warranted if clinically indicated. 6. There are no prior echos available for comparison. Assessment and 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 male with a history of hyperlipidemi a, HTN by chart review, and rectal cancer s/p chemo - completed adjuvant therapy 01/2011, XR T last in 05/2010, and ileostomy formation 07/2010 with planned take-down this spring who wa s transferred from [facility] in [facility], [place] with bacteremia. Neuro #Chronic headaches: Has not complained of ZIMMERMAN during hospital admission. Has been taking teodoro taminophen/excedrin/ibuprofen four times daily and has been previously told to cut down on N SAID intake. -holding NSAIDs Pulmonary No acute issues. Cardiovascular #Chest pain: given its reproducibility and origin from his back, it is less likely to be ca rdiac in origin. Concern at OSH for cardiac etiology, thus trops trended (0.09 --> 0.14 --> 0.11). Trops here have been negative x3. EKG normal without ST changes. Has good HR control , but BP above goal. -start asa daily -start metoprolol 12.5mg Q6H and titrate up as tolerated -hydralazine PRN for BP control -continue statin -flexeril PRN for what appears to be muscle spasm #HTN: pt denies h/o HTN or being treated for HTN; however on has multiple documented high S BPs. SBP elevated to 180s upon admission. Could also be associated with pain; however pt not currently in pain. -start metoprolol per above -hydralazine PRN GI #Elevated alk phos, AST, ALT: normal t bili. no coagulopathy. No associated abdominal pain. Pt does reports drinking at least 2 drinks of gin nightly. He also takes acetaminophen/exce drin/ibuprofen four times daily to treat his chronic headaches. Has been on statin as outpat ient. Given prior malignancy, metastatic disease is always on differential; other likely dx: medications, EtOH abuse. No known history of liver disease. Counseled pt morning with Dr. Stringer regarding cutting down on EtOH intake --> was in the room at the time and repeate dly re-inforced our advice to cut-down on drinking. -f/u ggt -continue to monitor LFTs daily -holding acetaminophen -ondansetron PRN for nausea #Colostomy: no change in output nor color. Mention of lesion on stoma - not noted on exam. -ostomy care #History of rectal cancer: s/p chemo - completed adjuvant therapy 01/2011, XRT last in 05/16 010, and ileostomy formation 07/2010 with planned take-down this spring. See MSK re: MRI sac ral lesion. Renal/ #Hyponatremia: improved. 127 on admission labs at OSH. Continue to monitor. ID #Bacteremia: no infectious source. OSH blood cultures growing MSSA. No findings on exam poi nting to infection source. CXR without obvious infiltrate, UA negative. Interestingly, pt r eported to RN this AM that he got a splinter in his hand from cutting wood weeks ago and hav ing a resultant bump form. He self-lanced it and it has now healed. Unclear if this is a p ossible source. -f/u OSH blood cultures - direct phone number to OSH lab: -07/30 OSH blood cultures x2 sets --> MSSA -07/31 OSH blood cultures x2 sets --> NGTD -08/01 blood cultures x2 sets - pending -discontinue vancomycin today -start nafcillin Hematology #Anemia: normocytic. Baseline Hct around 34. No e/o bleeding currently. Continue to monitor . -iron studies sent, although likely to be elevated given acute phase reactant in the settin g of sepsis. Endocrine #Hyperlipidemia: unknown last lipid panel (follows with outside PCP). Has been taking atorv astatin without mention of intolerance previously. -hold off on checking lipid panel given acute illness -continue atorvastatin - low threshold to discontinue if LFTs worsen MSK: #Back pain: in the setting of sacral lesion seen on MRI (see below). #Sacral lesion on MRI: unclear etiology. Presented at GI oncology conference 07/26/11. PET s can 06/2001 with "geographic left sacral ala FDG hypermetabolism most likely representing in sufficiency fracture; however bone scan and pelvic MRI are more consistent with metastatic d isease; recommended considering biopsy of bone lesion. Per musculoskeletal radiologist, the lesion did not appear to be metastatic disease but further testing was recommended. MRI with contrast PSA (free and total) were also recommended. It appears that pt received MRI withou t contrast at OSH --> no e/o infection per their read. -check PSA (free and total) -check CEA -check ggt (in the setting of elevated alk phos) Routine ICU Care: Feeding - regular Analgesia - oxycodone PO PRN, hydromorphone IV PRN Sedation - none Thromboembolic ppx - Heparin SQ HOB elevation - HOB >30 deg Ulcer ppx - Not applicable Glucose control - not indicated Bowel regimen: senekot-s PRN Access/Lines/Tubes: Peripheral IVs --> per nursing, pt has poor IV access and will likely need additional IVs v s. PICC placement once cultures are negative here. Disposition: transfer to floor Code status: Full The patient was staffed with Dr. Stringer, attending, who agrees with my assessment and plan. IDA SAUER MD Pager [phone] Kojo Pete - 08/01/19 12 6:46 PM PSTTransthoracic echocardiogram completed. Final report to follow. documented in this encounter Plan of Treatment Not on filedocumented as of this encounter Procedures + +--------+ + + + | Procedure Name | Priori | Date/Time | Associated Diagnosis | Comments | | | ty | | | | + +--------+ + + + | PROCEDURE NOTE | Routin | 08/19/2015 | | Results for this | | | e | 3:51 AM | | procedure are in the | | | | PST | | results section. | + +--------+ + + + | PROCEDURE NOTE | Routin | 08/19/2015 | | Results for this | | | e | 3:44 AM | | procedure are in the | | | | PST | | results section. | + +--------+ + + + | COMPLETE METABOLIC | Urgent | 08/09/2011 | | Results for this | | SET | | 5:53 AM | | procedure are in the | | (NA,K,CL,CO2,BUN,CRE | | PST | | results section. | | AT,GLUC,CA,AST,ALT,B | | | | | | HUMERA TOTAL,ALK | | | | | | PHOS,ALB,PROT TOTAL) | | | | | + +--------+ + + + | MAGNESIUM, PLASMA | Urgent | 08/09/2011 | | Results for this | | | | 5:53 AM | | procedure are in the | | | | PST | | results section. | + +--------+ + + + | X-RAY PORTABLE CHEST | Urgent | 08/08/2011 | | Results for this | | 1 VIEW | | 2:59 PM | | procedure are in the | | | | PST | | results section. | + +--------+ + + + | CBC ONLY | Urgent | 08/08/2011 | | Results for this | | | | 11:33 AM | | procedure are in the | | | | PST | | results section. | + +--------+ + + + | COMPLETE METABOLIC | Urgent | 08/08/2011 | | Results for this | | SET | | 6:07 AM | | procedure are in the | | (NA,K,CL,CO2,BUN,CRE | | PST | | results section. | | AT,GLUC,CA,AST,ALT,B | | | | | | HUMERA TOTAL,ALK | | | | | | PHOS,ALB,PROT TOTAL) | | | | | + +--------+ + + + | CBC ONLY | Urgent | 08/08/2011 | | Results for this | | | | 6:07 AM | | procedure are in the | | | | PST | | results section. | + +--------+ + + + | MAGNESIUM, PLASMA | Urgent | 08/08/2011 | | Results for this | | | | 6:07 AM | | procedure are in the | | | | PST | | results section. | + +--------+ + + + | TRANSESOPHAGEAL | Routin | 08/07/2011 | | Results for this | | ECHOCARDIOGRAM, | e | 10:35 AM | | procedure are in the | | ADULT | | PST | | results section. | + +--------+ + + + | TRANSESOPHAGEAL | Routin | 08/07/2011 | | Results for this | | ECHOCARDIOGRAM, | e | 9:54 AM | | procedure are in the | | ADULT | | PST | | results section. | + +--------+ + + + | CULTURE, BLOOD BACTI | Routin | 08/07/2011 | | Results for this | | & YEAST | e | 5:57 AM | | procedure are in the | | | | PST | | results section. | + +--------+ + + + | COMPLETE METABOLIC | Urgent | 08/07/2011 | | Results for this | | SET | | 5:50 AM | | procedure are in the | | (NA,K,CL,CO2,BUN,CRE | | PST | | results section. | | AT,GLUC,CA,AST,ALT,B | | | | | | HUMERA TOTAL,ALK | | | | | | PHOS,ALB,PROT TOTAL) | | | | | + +--------+ + + + | CBC ONLY | Urgent | 08/07/2011 | | Results for this | | | | 5:50 AM | | procedure are in the | | | | PST | | results section. | + +--------+ + + + | CULTURE, BLOOD BACTI | Routin | 08/07/2011 | | Results for this | | & YEAST | e | 5:50 AM | | procedure are in the | | | | PST | | results section. | + +--------+ + + + | FERRITIN | Routin | 08/07/2011 | | Results for this | | | e | 5:50 AM | | procedure are in the | | | | PST | | results section. | + +--------+ + + + | MAGNESIUM, PLASMA | Urgent | 08/07/2011 | | Results for this | | | | 5:50 AM | | procedure are in the | | | | PST | | results section. | + +--------+ + + + | IP CONSULT TO | Routin | 08/06/2011 | | Results for this | | INFECTIOUS DISEASES | e | 10:10 PM | | procedure are in the | | | | PST | | results section. | + +--------+ + + + | EOSINOPHILS, URINE | Routin | 08/06/2011 | | Results for this | | (SPOT) | e | 9:38 PM | | procedure are in the | | | | PST | | results section. | + +--------+ + + + | HEMOGLOBIN A1C, | Routin | 08/06/2011 | | Results for this | | BLOOD | e | 6:01 PM | | procedure are in the | | | | PST | | results section. | + +--------+ + + + | UA, DIPSTICK ONLY | Routin | 08/06/2011 | | Results for this | | | e | 1:19 PM | | procedure are in the | | | | PST | | results section. | + +--------+ + + + | URINE, MICROSCOPIC | Routin | 08/06/2011 | | Results for this | | EXAM | e | 1:19 PM | | procedure are in the | | | | PST | | results section. | + +--------+ + + + | URINE SCREEN FOR | Routin | 08/06/2011 | | Results for this | | CULTURE | e | 1:19 PM | | procedure are in the | | | | PST | | results section. | + +--------+ + + + | CULTURE, BLOOD BACTI | Routin | 08/06/2011 | | Results for this | | & YEAST | e | 10:57 AM | | procedure are in the | | | | PST | | results section. | + +--------+ + + + | CT ABDOMEN AND | Routin | 08/06/2011 | | Results for this | | PELVIS W IV CONTRAST | e | 9:48 AM | | procedure are in the | | | | PST | | results section. | + +--------+ + + + | LAB REPORTS | | 08/06/2011 | | Results for this | | | | 9:47 AM | | procedure are in the | | | | PST | | results section. | + +--------+ + + + | PSA, FREE AND | Routin | 08/06/2011 | | Results for this | | TOTAL,SERUM | e | 5:40 AM | | procedure are in the | | | | PST | | results section. | + +--------+ + + + | COMPLETE METABOLIC | Urgent | 08/06/2011 | | Results for this | | SET | | 5:40 AM | | procedure are in the | | (NA,K,CL,CO2,BUN,CRE | | PST | | results section. | | AT,GLUC,CA,AST,ALT,B | | | | | | HUMERA TOTAL,ALK | | | | | | PHOS,ALB,PROT TOTAL) | | | | | + +--------+ + + + | CBC ONLY | Urgent | 08/06/2011 | | Results for this | | | | 5:40 AM | | procedure are in the | | | | PST | | results section. | + +--------+ + + + | MAGNESIUM, PLASMA | Urgent | 08/06/2011 | | Results for this | | | | 5:40 AM | | procedure are in the | | | | PST | | results section. | + +--------+ + + + | CULTURE, BLOOD BACTI | Routin | 08/05/2011 | | Results for this | | & YEAST | e | 2:09 PM | | procedure are in the | | | | PST | | results section. | + +--------+ + + + | FOLATE, SERUM | Routin | 08/05/2011 | | Results for this | | | e | 2:09 PM | | procedure are in the | | | | PST | | results section. | + +--------+ + + + | VITAMIN B-12 | Routin | 08/05/2011 | | Results for this | | | e | 2:09 PM | | procedure are in the | | | | PST | | results section. | + +--------+ + + + | BILIRUBIN DIRECT | Routin | 08/05/2011 | | Results for this | | | e | 2:09 PM | | procedure are in the | | | | PST | | results section. | + +--------+ + + + | IRON AND TIBC, SERUM | Routin | 08/05/2011 | | Results for this | | | e | 2:09 PM | | procedure are in the | | | | PST | | results section. | + +--------+ + + + | COMPLETE METABOLIC | Urgent | 08/05/2011 | | Results for this | | SET | | 5:36 AM | | procedure are in the | | (NA,K,CL,CO2,BUN,CRE | | PST | | results section. | | AT,GLUC,CA,AST,ALT,B | | | | | | HUMERA TOTAL,ALK | | | | | | PHOS,ALB,PROT TOTAL) | | | | | + +--------+ + + + | CBC ONLY | Urgent | 08/05/2011 | | Results for this | | | | 5:36 AM | | procedure are in the | | | | PST | | results section. | + +--------+ + + + | MAGNESIUM, PLASMA | Urgent | 08/05/2011 | | Results for this | | | | 5:36 AM | | procedure are in the | | | | PST | | results section. | + +--------+ + + + | CULTURE, BLOOD BACTI | Routin | 08/04/2011 | | Results for this | | & YEAST | e | 10:15 AM | | procedure are in the | | | | PST | | results section. | + +--------+ + + + | COMPLETE METABOLIC | Urgent | 08/04/2011 | | Results for this | | SET | | 8:20 AM | | procedure are in the | | (NA,K,CL,CO2,BUN,CRE | | PST | | results section. | | AT,GLUC,CA,AST,ALT,B | | | | | | HUMERA TOTAL,ALK | | | | | | PHOS,ALB,PROT TOTAL) | | | | | + +--------+ + + + | CBC ONLY | Urgent | 08/04/2011 | | Results for this | | | | 8:20 AM | | procedure are in the | | | | PST | | results section. | + +--------+ + + + | MAGNESIUM, PLASMA | Urgent | 08/04/2011 | | Results for this | | | | 8:20 AM | | procedure are in the | | | | PST | | results section. | + +--------+ + + + | COMPLETE METABOLIC | Routin | 08/03/2011 | | Results for this | | SET | e | 6:37 PM | | procedure are in the | | (NA,K,CL,CO2,BUN,CRE | | PST | | results section. | | AT,GLUC,CA,AST,ALT,B | | | | | | HUMERA TOTAL,ALK | | | | | | PHOS,ALB,PROT TOTAL) | | | | | + +--------+ + + + | TOTAL RESULTS | Routin | 08/03/2011 | | Results for this | | FOR,URINE | e | 5:44 PM | | procedure are in the | | | | PST | | results section. | + +--------+ + + + | SODIUM TOTAL, URINE | Routin | 08/03/2011 | | Results for this | | | e | 5:44 PM | | procedure are in the | | | | PST | | results section. | + +--------+ + + + | CREATININE, URINE | Routin | 08/03/2011 | | Results for this | | | e | 5:44 PM | | procedure are in the | | | | PST | | results section. | + +--------+ + + + | C-REACTIVE PROTEIN | Routin | 08/03/2011 | | Results for this | | | e | 2:35 PM | | procedure are in the | | | | PST | | results section. | + +--------+ + + + | SEDIMENTATION RATE | Routin | 08/03/2011 | | Results for this | | | e | 2:35 PM | | procedure are in the | | | | PST | | results section. | + +--------+ + + + | CK, PLASMA | Urgent | 08/03/2011 | | Results for this | | | | 2:35 PM | | procedure are in the | | | | PST | | results section. | + +--------+ + + + | VASC LAB PORTABLE | Routin | 08/03/2011 | | Results for this | | VENOUS DUPLEX LOWER | e | 2:31 PM | | procedure are in the | | EXTREMITY BILATERAL | | PST | | results section. | | COMPLETE | | | | | + +--------+ + + + | CTA CHEST W CONTRAST | Routin | 08/03/2011 | | Results for this | | (NON CORONARY/NON | e | 1:14 PM | | procedure are in the | | CARDIAC) | | PST | | results section. | + +--------+ + + + | D-DIMER, (PE OR DIC) | Urgent | 08/03/2011 | | Results for this | | | | 6:10 AM | | procedure are in the | | | | PST | | results section. | + +--------+ + + + | 12 LEAD ECG | Routin | 08/03/2011 | | Results for this | | | e | 6:00 AM | | procedure are in the | | | | PST | | results section. | + +--------+ + + + | TROPONIN I, PLASMA | Routin | 08/03/2011 | | Results for this | | | e | 5:47 AM | | procedure are in the | | | | PST | | results section. | + +--------+ + + + | OCCULT BLOOD, FECES, | Routin | 08/03/2011 | | Results for this | | SCREEN | e | 3:37 AM | | procedure are in the | | | | PST | | results section. | + +--------+ + + + | COMPLETE METABOLIC | Urgent | 08/03/2011 | | Results for this | | SET | | 12:05 AM | | procedure are in the | | (NA,K,CL,CO2,BUN,CRE | | PST | | results section. | | AT,GLUC,CA,AST,ALT,B | | | | | | HUMERA TOTAL,ALK | | | | | | PHOS,ALB,PROT TOTAL) | | | | | + +--------+ + + + | CBC ONLY | Urgent | 08/03/2011 | | Results for this | | | | 12:05 AM | | procedure are in the | | | | PST | | results section. | + +--------+ + + + | MAGNESIUM, PLASMA | Urgent | 08/03/2011 | | Results for this | | | | 12:05 AM | | procedure are in the | | | | PST | | results section. | + +--------+ + + + | FERRITIN | Urgent | 08/02/2011 | | Results for this | | | | 10:18 PM | | procedure are in the | | | | PST | | results section. | + +--------+ + + + | FOLATE, SERUM | Urgent | 08/02/2011 | | Results for this | | | | 10:18 PM | | procedure are in the | | | | PST | | results section. | + +--------+ + + + | VITAMIN B-12 | Urgent | 08/02/2011 | | Results for this | | | | 10:18 PM | | procedure are in the | | | | PST | | results section. | + +--------+ + + + | IRON AND TIBC, SERUM | Urgent | 08/02/2011 | | Results for this | | | | 10:18 PM | | procedure are in the | | | | PST | | results section. | + +--------+ + + + | CULTURE, BLOOD BACTI | Urgent | 08/02/2011 | | Results for this | | & YEAST | | 3:15 PM | | procedure are in the | | | | PST | | results section. | + +--------+ + + + | CULTURE, BLOOD BACTI | Urgent | 08/02/2011 | | Results for this | | & YEAST | | 3:15 PM | | procedure are in the | | | | PST | | results section. | + +--------+ + + + | TROPONIN I, PLASMA | Urgent | 08/02/2011 | | Results for this | | | | 10:15 AM | | procedure are in the | | | | PST | | results section. | + +--------+ + + + | CULTURE, BLOOD BACTI | Urgent | 08/02/2011 | | Results for this | | & YEAST | | 7:38 AM | | procedure are in the | | | | PST | | results section. | + +--------+ + + + | TROPONIN I, PLASMA | Routin | 08/02/2011 | | Results for this | | | e | 12:06 AM | | procedure are in the | | | | PST | | results section. | + +--------+ + + + | COMPLETE METABOLIC | Urgent | 08/02/2011 | | Results for this | | SET | | 12:06 AM | | procedure are in the | | (NA,K,CL,CO2,BUN,CRE | | PST | | results section. | | AT,GLUC,CA,AST,ALT,B | | | | | | HUMERA TOTAL,ALK | | | | | | PHOS,ALB,PROT TOTAL) | | | | | + +--------+ + + + | CBC ONLY | Urgent | 08/02/2011 | | Results for this | | | | 12:06 AM | | procedure are in the | | | | PST | | results section. | + +--------+ + + + | MAGNESIUM, PLASMA | Urgent | 08/02/2011 | | Results for this | | | | 12:06 AM | | procedure are in the | | | | PST | | results section. | + +--------+ + + + | TROPONIN I, PLASMA | Urgent | 08/02/2011 | | Results for this | | | | 12:05 AM | | procedure are in the | | | | PST | | results section. | + +--------+ + + + | BASIC METABOLIC SET | Urgent | 08/02/2011 | | Results for this | | (NA, K, CL, TCO2, | | 12:05 AM | | procedure are in the | | BUN, CR, GLU, CA) | | PST | | results section. | + +--------+ + + + | CBC ONLY | Urgent | 08/02/2011 | | Results for this | | | | 12:05 AM | | procedure are in the | | | | PST | | results section. | + +--------+ + + + | 12 LEAD ECG | Routin | 08/01/2011 | | Results for this | | | e | 11:06 PM | | procedure are in the | | | | PST | | results section. | + +--------+ + + + | PSA, FREE AND | Urgent | 08/01/2011 | | Results for this | | TOTAL,SERUM | | 6:33 PM | | procedure are in the | | | | PST | | results section. | + +--------+ + + + | CARCINOEMBRYONIC AG, | Urgent | 08/01/2011 | | Results for this | | SERUM | | 6:33 PM | | procedure are in the | | | | PST | | results section. | + +--------+ + + + | LACTATE | Urgent | 08/01/2011 | | Results for this | | | | 6:33 PM | | procedure are in the | | | | PST | | results section. | + +--------+ + + + | X-RAY PORTABLE CHEST | Routin | 08/01/2011 | | Results for this | | 1 VIEW | e | 6:30 PM | | procedure are in the | | | | PST | | results section. | + +--------+ + + + | UA, DIPSTICK ONLY | Urgent | 08/01/2011 | | Results for this | | | | 5:54 PM | | procedure are in the | | | | PST | | results section. | + +--------+ + + + | URINE, MICROSCOPIC | Urgent | 08/01/2011 | | Results for this | | EXAM | | 5:54 PM | | procedure are in the | | | | PST | | results section. | + +--------+ + + + | URINE SCREEN FOR | Urgent | 08/01/2011 | | Results for this | | CULTURE | | 5:54 PM | | procedure are in the | | | | PST | | results section. | + +--------+ + + + | NOTIFICATION | Routin | 08/01/2011 | | Results for this | | | e | 4:38 PM | | procedure are in the | | | | PST | | results section. | + +--------+ + + + | DIFFERENTIAL | Urgent | 08/01/2011 | | Results for this | | | | 4:38 PM | | procedure are in the | | | | PST | | results section. | + +--------+ + + + | INR | Urgent | 08/01/2011 | | Results for this | | | | 4:38 PM | | procedure are in the | | | | PST | | results section. | + +--------+ + + + | CBC, WITH | Urgent | 08/01/2011 | | Results for this | | DIFFERENTIAL | | 4:38 PM | | procedure are in the | | | | PST | | results section. | + +--------+ + + + | TROPONIN I, PLASMA | Urgent | 08/01/2011 | | Results for this | | | | 4:38 PM | | procedure are in the | | | | PST | | results section. | + +--------+ + + + | COMPLETE METABOLIC | Urgent | 08/01/2011 | | Results for this | | SET | | 4:38 PM | | procedure are in the | | (NA,K,CL,CO2,BUN,CRE | | PST | | results section. | | AT,GLUC,CA,AST,ALT,B | | | | | | HUMERA TOTAL,ALK | | | | | | PHOS,ALB,PROT TOTAL) | | | | | + +--------+ + + + | CULTURE, BLOOD BACTI | Urgent | 08/01/2011 | | Results for this | | & YEAST | | 4:38 PM | | procedure are in the | | | | PST | | results section. | + +--------+ + + + | GGT, PLASMA | Urgent | 08/01/2011 | | Results for this | | | | 4:38 PM | | procedure are in the | | | | PST | | results section. | + +--------+ + + + | MAGNESIUM, PLASMA | Urgent | 08/01/2011 | | Results for this | | | | 4:38 PM | | procedure are in the | | | | PST | | results section. | + +--------+ + + + | 12 LEAD ECG | Routin | 08/01/2011 | | Results for this | | | e | 3:17 PM | | procedure are in the | | | | PST | | results section. | + +--------+ + + + | ORDERS OTHER | | 08/01/2011 | | Results for this | | | | 12:00 AM | | procedure are in the | | | | PST | | results section. | + +--------+ + + + | TRANSTHORACIC | Routin | 08/01/2011 | | Results for this | | ECHOCARDIOGRAM, | e | 12:00 AM | | procedure are in the | | ADULT | | PST | | results section. | + +--------+ + + + documented in this encounter Results PROCEDURE NOTE (08/19/2015 3:51 AM PST)PROCEDURE NOTE (08/19/2015 3:44 AM PST) + + | Transcriptions | + + | Other, Faculty - 08/15/2011 2:06 PM PST | + + MAGNESIUM, PLASMA (08/09/2011 5:53 AM PST) + +-------+ + + + | Component | Value | Ref Range | Performed | Pathologist | | | | | At | Signature | + +-------+ + + + | MAGNESIUM,P | 2.2 | 1.8 - 2.5 mg/dL | [facility] | | | LASMA | | | DEPARTMENT | | | | | | OF | | | | | | PATHOLOGY | | + +-------+ + + + + + | Specimen | + + | Blood - Blood | + + + + + + + | Performing | Address | City/State/Zipcode | Phone Number | | Organization | | | | + + + + + | [facility] | [address] | [place] [address] | | | PATHOLOGY | [address] | | | + + + + + COMPLETE METABOLIC SET (NA,K,CL,CO2,BUN,CREAT,GLUC,CA,AST,ALT,BILI TOTAL,ALK PHOS,ALB,PROT TOTAL) (08/09/2011 5:53 AM PST) + +---------+ + + + | Component | Value | Ref Range | Performed | Pathologist | | | | | At | Signature | + +---------+ + + + | GLUCOSE, | 96 | 60 - 99 mg/dL | [facility] | | | PLASMA | | | DEPARTMENT | | | (LAB) | | | OF | | | | | | PATHOLOGY | | + +---------+ + + + | BUN, PLASMA | 11 | 6 - 20 mg/dL | [facility] | | | (LAB) | | | DEPARTMENT | | | | | | OF | | | | | | PATHOLOGY | | + +---------+ + + + | CREATININE | 1.21 | 0.70 - 1.30 | [facility] | | | PLASMA | | mg/dL | DEPARTMENT | | | (LAB) | | | OF | | | | | | PATHOLOGY | | + +---------+ + + + | TOTAL | 6.5 | 6.1 - 7.9 g/dL | [facility] | | | PROTEIN, | | | DEPARTMENT | | | PLASMA | | | OF | | | (LAB) | | | PATHOLOGY | | + +---------+ + + + | ALBUMIN, | 2.4 (L) | 3.5 - 4.7 g/dL | [facility] | | | PLASMA | | | DEPARTMENT | | | (LAB) | | | OF | | | | | | PATHOLOGY | | + +---------+ + + + | CALCIUM, | 9.1 | 8.6 - 10.2 | [facility] | | | PLASMA | | mg/dL | DEPARTMENT | | | (LAB) | | | OF | | | | | | PATHOLOGY | | + +---------+ + + + | BILIRUBIN | 1.5 (H) | 0.3 - 1.2 mg/dL | [facility] | | | TOTAL | | | DEPARTMENT | | | | | | OF | | | | | | PATHOLOGY | | + +---------+ + + + | ALK PHOS | 248 (H) | 56 - 119 U/L | [facility] | | | | | | DEPARTMENT | | | | | | OF | | | | | | PATHOLOGY | | + +---------+ + + + | AST(SGOT) | 19 | 15 - 41 U/L | [facility] | | | | | | DEPARTMENT | | | | | | OF | | | | | | PATHOLOGY | | + +---------+ + + + | SODIUM, | 135 | 134 - 143 | [facility] | | | PLASMA | | mmol/L | DEPARTMENT | | | (LAB) | | | OF | | | | | | PATHOLOGY | | + +---------+ + + + | POTASSIUM, | 3.8 | 3.4 - 5.0 | [facility] | | | PLASMA | | mmol/L | DEPARTMENT | | | (LAB) | | | OF | | | | | | PATHOLOGY | | + +---------+ + + + | CHLORIDE, | 101 | 97 - 108 mmol/L | [facility] | | | PLASMA | | | DEPARTMENT | | | (LAB) | | | OF | | | | | | PATHOLOGY | | + +---------+ + + + | TOTAL CO2, | 26 | 22 - 29 mmol/L | [facility] | | | PLASMA | | | DEPARTMENT | | | (LAB) | | | OF | | | | | | PATHOLOGY | | + +---------+ + + + | ALT (SGPT) | 40 | 13 - 48 U/L | [facility] | | | | | | DEPARTMENT | | | | | | OF | | | | | | PATHOLOGY | | + +---------+ + + + | ANION GAP | 8 | 4 - 11 mmol/L | [facility] | | | | | | DEPARTMENT | | | | | | OF | | | | | | PATHOLOGY | | + +---------+ + + + | ANION | 12 (H) | 4 - 11 mmol/L | [facility] | | | GAP(ALB | | | DEPARTMENT | | | CORRECTED) | | | OF | | | | | | PATHOLOGY | | + +---------+ + + + + + | Specimen | + + | Blood - Blood | + + + + + + + | Performing | Address | City/State/Zipcode | Phone Number | | Organization | | | | + + + + + | [facility] | [address] | [place] [address] | | | PATHOLOGY | [address] | | | + + + + + X-RAY PORTABLE CHEST 1 VIEW (08/08/2011 2:59 PM PST) + + + + + + | Component | Value | Ref Range | Performed | Pathologist | | | | | At | Signature | + + + + + + | X-RAY | EXAM: AP chest. | | | | | PORTABLE | COMPARISON: 08/01/11 | | | | | CHEST 1 | History: Assess PICC | | | | | VIEW | placement FINDINGS: | | | | | | Heart and aortic | | | | | | contours are stable. | | | | | | Advancedsclerotic, | | | | | | cystic and degenerative | | | | | | changes is seen | | | | | | affecting theright | | | | | | glenohumeral joint. No | | | | | | other concerning bony | | | | | | findings are seen Tip of | | | | | | left PICC projects in | | | | | | the mid SVC | | | | | | approximately 5-cm | | | | | | proximalto the expected | | | | | | position of the | | | | | | cavoatrial junction. | | | | | | Excepting traceleft | | | | | | basilar atelectasis, the | | | | | | lungs are clear | | | | | | IMPRESSION: 1. 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 Tip of left PICC | | | | | | projects about 5-cm | | | | | | proximal to the | | | | | | cavoatrialjunction. | | | | | | Attending Radiologists: | | | | | | Benjy Peña, | | | | | | DanielleAuthor: Benjy Sommer | | | | | | Danielle Peña I have | | | | | | personally viewed this | | | | | | procedure/exam, reviewed | | | | | | this report,and made | | | | | | changes to it where | | | | | | appropriate. | | | | | | Final/Electronically | | | | | | signed / Benjy Sommer | | | | | | Casey 08/08/2011 | | | | | | 15:41PM | | | | + + + [...] | | + +---------+ + + CBC ONLY (08/08/2011 11:33 AM PST) + + + + + + | Component | Value | Ref Range | Performed | Pathologist | | | | | At | Signature | + + + + + + | WHITE CELL | 7.8 | 4.4 - 11.0 K/cu | [facility] | | | COUNT | | mm | DEPARTMENT | | | | | | OF | | | | | | PATHOLOGY | | + + + + + + | RED CELL | 3.05 (L) | 4.50 - 5.90 | [facility] | | | COUNT | | M/cu mm | DEPARTMENT | | | | | | OF | | | | | | PATHOLOGY | | + + + + + + | HEMOGLOBIN | 9.9 (L) | 13.5 - 17.5 | [facility] | | | | | g/dL | DEPARTMENT | | | | | | OF | | | | | | PATHOLOGY | | + + + + + + | HEMATOCRIT | 29.2 (L) | 41.0 - 53.0 % | [facility] | | | | | | DEPARTMENT | | | | | | OF | | | | | | PATHOLOGY | | + + + + + + | MCV | 95.6 | 80.0 - 96.0 fL | [facility] | | | | | | DEPARTMENT | | | | | | OF | | | | | | PATHOLOGY | | + + + + + + | MCHC | 33.9 | 33.4 - 35.5 | [facility] | | | | | g/dL | DEPARTMENT | | | | | | OF | | | | | | PATHOLOGY | | + + + + + + | RDW | 14.4 | 11.5 - 15.0 % | [facility] | | | | | | DEPARTMENT | | | | | | OF | | | | | | PATHOLOGY | | + + + + + + | PLATELET | 542 (H) | 150 - 400 K/cu | [facility] [...] | + + + + + | [facility] DEPARTMENT OF | [address] | [place] [address] | | | PATHOLOGY | [address] | | | + + + + + MAGNESIUM, PLASMA (08/08/2011 6:07 AM PST) + +-------+ + + + | Component | Value | Ref Range | Performed | Pathologist | | | | | At | Signature | + +-------+ + + + | MAGNESIUM,P | QNS | 1.8 - 2.5 mg/dL | [facility] | | | LASMA | | | DEPARTMENT | | | | | | OF | | | | | | PATHOLOGY | | + +-------+ + + + + + | Specimen | + + | Blood - Blood | + + + + + | Narrative | Performed At | + + + | Quantity not sufficient for test. PHONED TO TYLOR BOB @ [id number] | [facility] | | | DEPARTMENT OF | | | PATHOLOGY | + + + + + + + + | Performing | Address | City/State/Zipcode | Phone Number | | Organization | | | | + + + + + | [facility] DEPARTMENT OF | [address] | [place] [address] | | | PATHOLOGY | [address] | | | + + + + + COMPLETE METABOLIC SET (NA,K,CL,CO2,BUN,CREAT,GLUC,CA,AST,ALT,BILI TOTAL,ALK PHOS,ALB,PROT TOTAL) (08/08/2011 6:07 AM PST) + +-------+ + + + | Component | Value | Ref Range | Performed | Pathologist | | | | | At | Signature | + +-------+ + + + | GLUCOSE, | QNS | 60 - 99 mg/dL | [facility] | | | PLASMA | | | DEPARTMENT | | | (LAB) | | | OF | | | | | | PATHOLOGY | | + +-------+ + + + | BUN, PLASMA | QNS | 6 - 20 mg/dL | [facility] | | | (LAB) | | | DEPARTMENT | | | | | | OF | | | | | | PATHOLOGY | | + +-------+ + + + | CREATININE | QNS | 0.70 - 1.30 | [facility] | | | PLASMA | | mg/dL | DEPARTMENT | | | (LAB) | | | OF | | | | | | PATHOLOGY | | + +-------+ + + + | TOTAL | QNS | 6.1 - 7.9 g/dL | [facility] | | | PROTEIN, | | | DEPARTMENT | | | PLASMA | | | OF | | | (LAB) | | | PATHOLOGY | | + +-------+ + + + | ALBUMIN, | QNS | 3.5 - 4.7 g/dL | [facility] | | | PLASMA | | | DEPARTMENT | | | (LAB) | | | OF | | | | | | PATHOLOGY | | + +-------+ + + + | CALCIUM, | QNS | 8.6 - 10.2 | [facility] | | | PLASMA | | mg/dL | DEPARTMENT | | | (LAB) | | | OF | | | | | | PATHOLOGY | | + +-------+ + + + | BILIRUBIN | QNS | 0.3 - 1.2 mg/dL | [facility] | | | TOTAL | | | DEPARTMENT | | | | | | OF | | | | | | PATHOLOGY | | + +-------+ + + + | ALK PHOS | QNS | 56 - 119 U/L | [facility] | | | | | | DEPARTMENT | | | | | | OF | | | | | | PATHOLOGY | | + +-------+ + + + | AST(SGOT) | QNS | 15 - 41 U/L | [facility] | | | | | | DEPARTMENT | | | | | | OF | | | | | | PATHOLOGY | | + +-------+ + + + | SODIUM, | QNS | 134 - 143 | [facility] | | | PLASMA | | mmol/L | DEPARTMENT | | | (LAB) | | | OF | | | | | | PATHOLOGY | | + +-------+ + + + | POTASSIUM, | QNS | 3.4 - 5.0 | [facility] | | | PLASMA | | mmol/L | DEPARTMENT | | | (LAB) | | | OF | | | | | | PATHOLOGY | | + +-------+ + + + | CHLORIDE, | QNS | 97 - 108 mmol/L | [facility] | | | PLASMA | | | DEPARTMENT | | | (LAB) | | | OF | | | | | | PATHOLOGY | | + +-------+ + + + | TOTAL CO2, | QNS | 22 - 29 mmol/L | [facility] | | | PLASMA | | | DEPARTMENT | | | (LAB) | | | OF | | | | | | PATHOLOGY | | + +-------+ + + + | ALT (SGPT) | QNS | 13 - 48 U/L | [facility] | | | | | | DEPARTMENT | | | | | | OF | | | | | | PATHOLOGY | | + +-------+ + + + + + | Specimen | + + | Blood - Blood | + + + + + | Narrative | Performed At | + + + | Quantity not sufficient for test. PHONED TO TYLOR BOB @ 0928 | [facility] | | | DEPARTMENT OF | | | PATHOLOGY | + + + + + + + + | Performing | Address | City/State/Zipcode | Phone Number | | Organization | | | | + + + + + | [facility] DEPARTMENT [facility] | [address] | [place] [address] | | | PATHOLOGY | [address] | | | + + + + + CBC ONLY (08/08/2011 6:07 AM PST) + +---------+ + + + | Component | Value | Ref Range | Performed | Pathologist | | | | | At | Signature | + +---------+ + + + | WHITE CELL | Clotted | 4.4 - 11.0 K/cu | [facility] | | | COUNT | | mm | DEPARTMENT | | | | | | OF | | | | | | PATHOLOGY | | + +---------+ + + + | RED CELL | Clotted | 4.50 - 5.90 | [facility] | | | COUNT | | M/cu mm | DEPARTMENT | | | | | | OF | | | | | | PATHOLOGY | | + +---------+ + + + | HEMOGLOBIN | Clotted | 13.5 - 17.5 | [facility] | | | | | g/dL | DEPARTMENT | | | | | | OF | | | | | | PATHOLOGY | | + +---------+ + + + | HEMATOCRIT | Clotted | 41.0 - 53.0 % | [facility] | | | | | | DEPARTMENT | | | | | | OF | | | | | | PATHOLOGY | | + +---------+ + + + | MCV | Clotted | 80.0 - 96.0 fL | [facility] | | | | | | DEPARTMENT | | | | | | OF | | | | | | PATHOLOGY | | + +---------+ + + + | MCHC | Clotted | 33.4 - 35.5 | [facility] | | | | | g/dL | DEPARTMENT | | | | | | OF | | | | | | PATHOLOGY | | + +---------+ + + + | RDW | Clotted | 11.5 - 15.0 % | [facility] | | | | | | DEPARTMENT | | | | | | OF | | | | | | PATHOLOGY | | + +---------+ + + + | PLATELET | Clotted | 150 - 400 K/cu | [facility] | | | COUNT | | mm | DEPARTMENT | | | | | | OF | | | | | | PATHOLOGY | | + +---------+ + + + + + | Specimen | + + | Blood - Blood | + + + + + | Narrative | Performed At | + + + | Phoned TO NILAY @ 06:51 Readback. | [facility] | | | DEPARTMENT OF | | | PATHOLOGY | + + + + + + + + | Performing | Address | City/State/Zipcode | Phone Number | | Organization | | | | + + + + + | [facility] | [address] | [place] [address] | | | PATHOLOGY | [address] | | | + + + + + TRANSESOPHAGEAL ECHOCARDIOGRAM, ADULT (08/07/2011 10:35 AM PST) + + + | Narrative | Performed At | + + + | | | + + + + + | Transcriptions | + + | Cy Toribio - 08/07/2011 10:39 AM PST | + + TRANSESOPHAGEAL ECHOCARDIOGRAM, ADULT (08/07/2011 9:54 AM PST)CULTURE, BLOOD BACTI & YEAST (08/07/2011 5:57 AM PST) + + + + + + | Component | Value | Ref Range | Performed | Pathologist | | | | | At | Signature | + + + + + + | SOURCE BODY | Blood Blood | | [facility] | | | SITE | | | REGIONAL | | | | | | LAB-MICRO | | + + + + + + | CULTURE | Blood Culture | | [facility] | | | RESULT | | | REGIONAL | | | | Source.................. | | LAB-MICRO | | | | : Blood Blood | | | | | | Result.................. | | | | | | . Final: No growth at 5 | | | | | | days. | | | | + + + + + + + + | Specimen | + + | Blood - Blood | + + + + + + + | Performing | Address | City/State/Zipcode | Phone Number | | Organization | | | | + + + + + | [facility] | [address] | [place] [address] | | | LAB-MICRO | | | | + + + + + FERRITIN, SERUM (08/07/2011 5:50 AM PST) + + + + + + | Component | Value | Ref Range | Performed | Pathologist | | | | | At | Signature | + + + + + + | FERRITIN | 433Comment: Ferritin | 18 - 460 ng/mL | [facility] | | | | reference intervals | | REGIONAL | | | | based on study performed | | LABORATORY | | | | at [facility], | | | | | | [place], [place]. | | | | + + + + + + + + | Specimen | + + | | + + + + + | Narrative | Performed At | + + + | [facility] | [facility] | | [facility] [address] | REGIONAL | | [place] [address] | LABORATORY | + + + + + + + + | Performing | Address | City/State/Zipcode | Phone Number | | Organization | | | | + + + + + | [facility] | [address] | [place] [address] | | | LABORATORY | | | | + + + + + MAGNESIUM, PLASMA (08/07/2011 5:50 AM PST) + +-------+ + + + | Component | Value | Ref Range | Performed | Pathologist | | | | | At | Signature | + +-------+ + + + | MAGNESIUM,P | 2.1 | 1.8 - 2.5 mg/dL | [facility] | | | LASMA | | | DEPARTMENT | | | | | | OF | | | | | | PATHOLOGY | | + +-------+ + + + + + | Specimen | + + | Blood - Blood | + + + + + + + | Performing | Address | City/State/Zipcode | Phone Number | | Organization | | | | + + + + + | [facility] | [address] | [place] [address] | | | PATHOLOGY | [address] | | | + + + + + COMPLETE METABOLIC SET (NA,K,CL,CO2,BUN,CREAT,GLUC,CA,AST,ALT,BILI TOTAL,ALK PHOS,ALB,PROT TOTAL) (08/07/2011 5:50 AM PST) + + + + + + | Component | Value | Ref Range | Performed | Pathologist | | | | | At | Signature | + + + + + + | GLUCOSE, | 106 (H) | 60 - 99 mg/dL | [facility] | | | PLASMA | | | DEPARTMENT | | | (LAB) | | | OF | | | | | | PATHOLOGY | | + + + + + + | BUN, PLASMA | 12 | 6 - 20 mg/dL | [facility] | | | (LAB) | | | DEPARTMENT | | | | | | OF | | | | | | PATHOLOGY | | + + + + + + | CREATININE | 1.36 (H) | 0.70 - 1.30 | [facility] | | | PLASMA | | mg/dL | DEPARTMENT | | | (LAB) | | | OF | | | | | | PATHOLOGY | | + + + + + + | TOTAL | 6.1 | 6.1 - 7.9 g/dL | [facility] | | | PROTEIN, | | | DEPARTMENT | | | PLASMA | | | OF | | | (LAB) | | | PATHOLOGY | | + + + + + + | ALBUMIN, | 2.3 (L) | 3.5 - 4.7 g/dL | [facility] | | | PLASMA | | | DEPARTMENT | | | (LAB) | | | OF | | | | | | PATHOLOGY | | + + + + + + | CALCIUM, | 8.5 (L) | 8.6 - 10.2 | [facility] | | | PLASMA | | mg/dL | DEPARTMENT | | | (LAB) | | | OF | | | | | | PATHOLOGY | | + + + + + + | BILIRUBIN | 1.5 (H) | 0.3 - 1.2 mg/dL | [facility] | | | TOTAL | | | DEPARTMENT | | | | | | OF | | | | | | PATHOLOGY | | + + + + + + | ALK PHOS | 284 (H) | 56 - 119 U/L | [facility] | | | | | | DEPARTMENT | | | | | | OF | | | | | | PATHOLOGY | | + + + + + + | AST(SGOT) | 49 (H) | 15 - 41 U/L | [facility] | | | | | | DEPARTMENT | | | | | | OF | | | | | | PATHOLOGY | | + + + + + + | SODIUM, | 133 (L) | 134 - 143 | [facility] | | | PLASMA | | mmol/L | DEPARTMENT | | | (LAB) | | | OF | | | | | | PATHOLOGY | | + + + + + + | POTASSIUM, | 3.4 | 3.4 - 5.0 | [facility] | | | PLASMA | | mmol/L | DEPARTMENT | | | (LAB) | | | OF | | | | | | PATHOLOGY | | + + + + + + | CHLORIDE, | 96 (L) | 97 - 108 mmol/L | [facility] | | | PLASMA | | | DEPARTMENT | | | (LAB) | | | OF | | | | | | PATHOLOGY | | + + + + + + | TOTAL CO2, | 26 | 22 - 29 mmol/L | [facility] | | | PLASMA | | | DEPARTMENT | | | (LAB) | | | OF | | | | | | PATHOLOGY | | + + + + + + | ALT (SGPT) | 66 (H) | 13 - 48 U/L | [facility] | | | | | | DEPARTMENT | | | | | | OF | | | | | | PATHOLOGY | | + + + + + + | ANION GAP | 11 | 4 - 11 mmol/L | [facility] | | | | | | DEPARTMENT | | | | | | OF | | | | | | PATHOLOGY | | + + + + + + | ANION | 15 (H) | 4 - 11 mmol/L | [facility] [...] | + + + + + | [facility] | [address] | [place] [address] | | | PATHOLOGY | [address] | | | + + + + + CBC ONLY (08/07/2011 5:50 AM PST) + + + + + + | Component | Value | Ref Range | Performed | Pathologist | | | | | At | Signature | + + + + + + | WHITE CELL | 7.5 | 4.4 - 11.0 K/cu | [facility] | | | COUNT | | mm | DEPARTMENT | | | | | | OF | | | | | | PATHOLOGY | | + + + + + + | RED CELL | 2.85 (L) | 4.50 - 5.90 | [facility] | | | COUNT | | M/cu mm | DEPARTMENT | | | | | | OF | | | | | | PATHOLOGY | | + + + + + + | HEMOGLOBIN | 9.3 (L) | 13.5 - 17.5 | [facility] | | | | | g/dL | DEPARTMENT | | | | | | OF | | | | | | PATHOLOGY | | + + + + + + | HEMATOCRIT | 27.3 (L) | 41.0 - 53.0 % | [facility] | | | | | | DEPARTMENT | | | | | | OF | | | | | | PATHOLOGY | | + + + + + + | MCV | 95.9 | 80.0 - 96.0 fL | [facility] | | | | | | DEPARTMENT | | | | | | OF | | | | | | PATHOLOGY | | + + + + + + | MCHC | 34.0 | 33.4 - 35.5 | [facility] | | | | | g/dL | DEPARTMENT | | | | | | OF | | | | | | PATHOLOGY | | + + + + + + | RDW | 14.1 | 11.5 - 15.0 % | [facility] | | | | | | DEPARTMENT | | | | | | OF | | | | | | PATHOLOGY | | + + + + + + | PLATELET | 453 (H) | 150 - 400 K/cu | [facility] [...] | + + + + + | [facility] | [address] | [place] [address] | | | PATHOLOGY | [address] | | | + + + + + CULTURE, BLOOD BACTI & YEAST (08/07/2011 5:50 AM PST) + + + + + + | Component | Value | Ref Range | Performed | Pathologist | | | | | At | Signature | + + + + + + | SOURCE BODY | Blood | | [facility] | | | SITE | | | REGIONAL | | | | | | LAB-MICRO | | + + + + + + | CULTURE | Blood Culture | | [facility] | | | RESULT | | | REGIONAL | | | | Source.................. | | LAB-MICRO | | | | : Blood | | | | | | Result.................. | | | | | | . Final: No growth at 5 | | | | | | days. | | | | + + + + + + + + | Specimen | + + | Blood | + + + + + + + | Performing | Address | City/State/Zipcode | Phone Number | | Organization | | | | + + + + + | [facility] | [address] | [place] [address] | | | LAB-MICRO | | | | + + + + + IP CONSULT TO INFECTIOUS DISEASES (08/06/2011 10:10 PM PST) + + + | Narrative | Performed At | + + + | Angel Zavala MD 08/06/2011 6:02 PM TYLOR HERNANDEZ | | | [facility] INPATIENT INFECTIOUS DISEASES FOLLOW UP CONSULT NOTE | | | Hospital Day:5 Author: ANGEL ZAVALA MD ID: 66 yo M with | | | recent PMH rectal carcinoma s/p resection, chemo and XRT with fever, | | | back pain and persistent MSSA bacteremia. 24h Events: CT A/P | | | without clear source of bacteremia, AF, continues to have more blood | | | cultures + for MSSA. S: Pt. Reports that he feels better today | | | with decreased back pain and chest pain. Last Vitals: BP | | | 144/73 | Pulse 69 | Temp 37.1 C (98.8 F) | RR 20 | Ht 175.3 cm | | | (5' 9") | Wt 83.144 kg (183 lb 4.8 oz) | SpO2 97% | BMI 27.07 | | | kg/(m^2) Systolic (24hrs), Av mmHg, Min:144 mmHg, Max:163 | | | mmHg Diastolic (24hrs), Av mmHg, Min:73 mmHg, Max:82 mmHg Pulse | | | Av.3 Min: 69 Max: 82 Temp Av C (98.6 F) | | | Min: 36.7 C (98.1 F) Max: 37.2 C (99 F) Resp Av | | | Min: 20 Max: 20 SpO2 Av.8 % Min: 92 % Max: 98 % | | | Intake/Output Summary (Last 24 hours) at 08/06/11 1753 Last data | | | filed at 08/06/11 1714 Gross per 24 hour Intake 5510 ml | | | Output 7925 ml Net -2415 ml Gen: Alert and oriented, NSAD, | | | painful with movement HEENT: PERRL, no conjunctival icterus or | | | scleral injection Lungs: no increased WOB, symmetric respiratory | | | excursions, crackles at the bases b/l Heart: RRR, NMRG Abdomen: | | | +BS, soft, NT/ND, no palpable organomegaly Back: no spine or CVA | | | tenderness Skin: no rash or lesions Ext: no LE edema Neuro: | | | grossly nonfocal exam INPATIENT MEDS: amLODIPine (aka NORVASC) | | | tablet 10 mg, 10 mg, Oral, DAILY aspirin EC tablet 81 mg, 81 mg, | | | Oral, DAILY cyclobenzaprine (aka FLEXERIL) tablet 5 mg, 5 mg, Oral, | | | TID PRN dextrose injection 25 mL, 25 mL, Intravenous, PRN | | | diphenhydrAMINE (aka BENADRYL) capsule 25 mg, 25 mg, Oral, Q6H PRN | | | ferrous sulfate tablet 325 mg, 325 mg, Oral, BID glucagon (aka | | | GLUCAGEN) injection 1 mg, 1 mg, Intramuscular, PRN glucose chewable | | | tablet 16 g, 16 g, Oral, Q15MIN PRN guaiFENesin LA (aka MUCINEX) | | | tablet 600 mg, 600 mg, Oral, BID heparin injection 5,000 Units, | | | 5,000 Units, Subcutaneous, Q12H hydrALAZINE (aka APRESOLINE) tablet | | | 25 mg, 25 mg, Oral, TID HYDROmorphone (aka DILAUDID) injection 0.5 | | | mg, 0.5 mg, Intravenous, Q6H PRN menthol-zinc oxide (aka CALAZIME) | | | topical paste, , Topical, QID PRN metoprolol tartrate (aka | | | LOPRESSOR) tablet 25 mg, 25 mg, Oral, BID multivitamin 1 Cap, 1 Cap, | | | Oral, DAILY nafcillin IV (minibag+) 2 g, 2 g, Intravenous, Q4H | | | nitroglycerin (aka NITROSTAT) tablet 0.4 mg, 0.4 mg, Sublingual, | | | Q5MIN PRN ondansetron (aka ZOFRAN) injection 4 mg, 4 mg, | | | Intravenous, Q12H PRN oxyCODONE immediate release (aka ROXICODONE) | | | tablet 5-10 mg, 5-10 mg, Oral, Q6H PRN polyethylene glycol (aka | | | MIRALAX) powder 17 g, 17 g, Oral, DAILY PRN senna-docusate (aka | | | SENOKOT S) 8.6-50 mg 1 Tab, 1 Tab, Oral, BID PRN Antimicrobials: | | | Nafcillin 08/02- Laboratory Data: Recent Labs Basename | | | 08/06/11 0540 08/05/11 0536 08/04/11 0820 WBC 8.2 9.8 6.8 HB | | | 8.9* 10.3* 9.6* HCT 26.2* 30.5* 27.7* PLT 414* 401* 301 | | | NEUTROPERC -- -- -- BANDPCT -- -- -- LYMPHPERC -- -- -- | | | MONOPERC -- -- -- BASOPERC -- -- -- EOSPERC -- -- -- | | | Recent Labs Basename 08/06/11 0540 08/05/11 0536 08/04/11 0820 NA | | | 133* 133* 136 K 3.6 3.5 3.8 CL 98 99 101 BICARB 27 24 23 | | | BUN 14 19 23* CR 1.42* 1.46* 1.55* CA 8.2* 8.3* 8.2* MG 2.0 | | | 2.2 2.1 PO4 -- -- -- Recent Labs Basename 08/06/11 0540 | | | 08/05/1136 08/04/11 0820 AST 46* 33 45* ALT 65* 74* 85* | | | TBILI 1.6* 2.3* 3.3* AP 308* 419* 453* ALB 1.9* 2.1* 2.2* TP | | | 5.8* 6.2 5.7* CULTURE RESULT (no units) Date Value | | | 08/04/2011 Blood Culture Source................: | | | Left Antecubital Gram Stain: Gram positive cocci in | | | clusters Growth in Aerobic Bottle Further report | | | to follow. 08/02/2011 Blood Culture | | | Source................: Right Foot Gram Stain: Gram | | | positive cocci in clusters Staphylococcus aureus | | | Final ID Please | | | refer to blood culture collected on 08/01/2011 at 1638 for | | | complete susceptibilities. Growth in Anaerobic Bottle | | | Further report to follow. 08/02/2011 Blood Culture | | | Source..................: Left Antecubital | | | Result................... Preliminary: No growth at 3 days. | | | 08/02/2011 Not Recd 08/01/2011 Blood Culture | | | Source................: Peripheral Blood Gram Stain: | | | Gram positive cocci in clusters Staphylococcus aureus | | | Final ID | | | Growth in Anaerobic Bottle | | | S. aureus Cefazolin S Clindamycin | | | S Erythromycin R Oxacillin | | | S Tetracycline S | | | Trimeth/Sulfa S Vancomycin S | | | Penicillin R Final Report 07/30 bld | | | 2/2 MSSA 07/31 bld 2/2 NG 08/01 bld 07/15 MSSA 08/02 1 MSSA 08/04 | | | 07/15 MSSA Imaging: CT ABDOMEN & PELVIS W CONTRAST: CT abdomen | | | pelvis with oral and 100 cc IV visipaque. Comparison: | | | 06/24/2011. History: Evaluate for source of bacteremia. | | | FINDINGS: ABDOMEN: Small left left effusion and mild bibasilar | | | dependent atelectasis. Lung bases are clear. Geographic subcapsular | | | hypoattenuating focus within the medial segment seen previously has | | | resolved, likely focal fatty infiltration. Layering high | | | attenuation stones are present in the gallbladder. There is no | | | biliary duct dilation. Pancreas, and spleen, adrenal glands, and and | | | right kidney are normal. Left upper pole subcentimeter cyst | | | unchanged. Slight expansion of a subcapsular posterior lower pole 11 | | | mm diameter cystic lesion with trace crescentic subcapsular fluid. | | | No surrounding rim enhancement or perinephric stranding is present. | | | This likely represents a ruptured cyst. PELVIS: Bladder is | | | mildly thick walled with perivesical stranding suggestive of possible | | | cystitis. Correlate with urinalysis and Prostate and seminal | | | vesicles are unremarkable. Changes of prior low anterior resection | | | are stable without abnormal perianastomotic soft tissue recurrence | | | or fluid collection. There is no bowel obstruction. Diverting right | | | lower quadrant loop ileostomy is unchanged. No abdominal pelvic | | | adenopathy. Trace left lower quadrant free fluid is present image | | | 144. Healed midline infraumbilical incision again noted. There is | | | subtle bandlike lucency and sclerosis vertically oriented within the | | | left sacral ala, likely representing a subacute insufficiency | | | fracture, not significantly changed from before. No new osseous | | | abnormality seen. IMPRESSION: No acute abnormality. | | | Specifically, no bowel obstruction or abdominal pelvic abscess. Tiny | | | left pleural effusion and trace left lower quadrant free fluid | | | likely reflecting volume overload. Mildly thickened bladder with | | | minimal perivesical stranding possibly reflecting cystitis. | | | Correlate with urinalysis. Assessment: 66 yo M with recent PMH | | | rectal carcinoma s/p resection, chemo and XRT with fever, back pain | | | and persistent MSSA bacteremia. Pt. Has persistent bacteremia | | | despite adequate IV antibiotic therapy. We still do not have a clear | | | source for this despite imaging the C/A/P. He needs a CRISTIAN to | | | determine if he has valvular infection/abscess. It is still | | | possible that his L sacral ala fx is infected but it did not look | | | like this on the recent MRI of that area. Recommendations: 1. | | | Obtain CRISTIAN 2. Continue nafcillin The patient's care was was | | | discussed with Dr. Amezcua, who agrees w/ the above assessment and | | | plan. ANGEL ZAVALA MD Infectious Diseases Fellow | | | Pager: [phone] | | + + + EOSINOPHILS, URINE (SPOT) (08/06/2011 9:38 PM PST) + + + + + + | Component | Value | Ref Range | Performed | Pathologist | | | | | At | Signature | + + + + + + | URINE | NoneSeen | None Seen % | [facility] | | | EOSINOPHILS | | | DEPARTMENT | | | [...] | + + + + + | [facility] DEPARTMENT | [address] | [place] [address] | | | PATHOLOGY | [address] | | | + + + + + HEMOGLOBIN A1C, BLOOD (08/06/2011 6:01 PM PST) + + + + + + | Component | Value | Ref Range | Performed | Pathologist | | | | | At | Signature | + + + + + + | HEMOGLOBIN | Dr Cancel | % | [facility] | | | A1C | | | REGIONAL | | | | | | LABORATORY | | + + + + + + + + | Specimen | + + | Blood - Blood | + + + + + | Narrative | Performed At | + + + | Request cancelled by physician/floor MOVED TO [facility] | [facility] | | NOTIFIED | REGIONAL | | | LABORATORY | + + + + + + + + | Performing | Address | City/State/Zipcode | Phone Number | | Organization | | | | + + + + + | [facility] | [address] | [place] [address] | | | LABORATORY | | | | + + + + + SONIA GARVIN ONLY (08/06/2011 1:19 PM PST) + + + + + + | Component | Value | Ref Range | Performed | Pathologist | | | | | At | Signature | + + + + + + | COLOR(UR) | Straw | | [facility] | | | | [...] + + | GLUCOSE(UR) | Negative | Neg-Trace mg/dL | [facility] | | | | | | DEPARTMENT | | | | | | OF | | | | | | PATHOLOGY | | + + + + + + | BILIRUBIN | Negative | Negative | [facility] | | | | | | DEPARTMENT | | | | | | OF | | | | | | PATHOLOGY | | + + + + + + | KETONES | Negative | Negative mg/dL | [facility] | | | | | | DEPARTMENT | | | | | | OF | | | | | | PATHOLOGY | | + + + + + + | SPECIFIC | <=1.005 | 1.005 - 1.030 | [facility] | | | GRAVITY | | | DEPARTMENT | | | | | | OF | | | | | | PATHOLOGY | | + + + + + + | BLOOD | Negative | Negative | [facility] | | | | | | DEPARTMENT | | | | | | OF | | | | | | PATHOLOGY | | + + + + + + | PH(UR) | 6.5 | 5.0 - 8.0 | [facility] | | | | | | DEPARTMENT | | | | | | OF | | | | | | PATHOLOGY | | + + + + + + | PROTEIN(LAB | Negative | Neg-Trace mg/dL | [facility] | | | ) [...] | + + + + + | [facility] DEPARTMENT [facility] | [address] | [place] [address] | | | PATHOLOGY | [address] | | | + + + + + URINE, MICROSCOPIC EXAM (08/06/2011 1:19 PM PST) + +-------+ + + + | Component | Value | Ref Range | Performed | Pathologist | | | | | At | Signature | + +-------+ + + + | SQUAMOUS | None | /hpf | [facility] | | | EPITHELIAL | | | DEPARTMENT | | | | | | OF | | | | | | PATHOLOGY | | + +-------+ + + + | NON-SQUAMOU | None | /hpf | [facility] | | | S EPITH | | | DEPARTMENT | | | | | | OF | | | | | | PATHOLOGY | | + +-------+ + + + | RED CELLS | 0-1 | 0 - 3 /hpf | [facility] | | | | | | DEPARTMENT | | | | | | OF | | | | | | PATHOLOGY | | + +-------+ + + + | WHITE CELLS | 0-1 | 0 - 5 /hpf | [facility] | | | | | | DEPARTMENT | | | | | | OF | | | | | | PATHOLOGY | | + +-------+ + + + | BACTERIA | None | /hpf | [facility] | | | | | | DEPARTMENT | | | | | | OF | | | | | | PATHOLOGY | | + +-------+ + + + | MUCOUS | None | /hpf | [facility] | | | | | | DEPARTMENT | | | | | | OF | | | | | | PATHOLOGY | | + +-------+ + + + | HYALINE | None | 0 - 1 /lpf | [facility] | | | CASTS | | | DEPARTMENT | | | | | | OF | | | | | | PATHOLOGY | | + +-------+ + + + | GRANULAR | None | /lpf | [facility] | | | CASTS | | | DEPARTMENT | | | | | | OF | | | | | | PATHOLOGY | | + +-------+ + + + | CELLULAR | None | /lpf | [facility] | | | CASTS | | | DEPARTMENT | | | | | | OF | | | | | | PATHOLOGY | | + +-------+ + + + | AMORPHOUS | None | /hpf | [facility] | | | CRYSTALS | | | DEPARTMENT | | | | | | OF | | | | | | PATHOLOGY | | + +-------+ + + + | CALCIUM | None | /hpf | [facility] | | | OXALATE | | | DEPARTMENT | | | GYPSY | | | OF | | | | | | PATHOLOGY | | + +-------+ + + + | URIC ACID | None | /hpf | [facility] | | | CRYSTALS | | | DEPARTMENT | | | | | | OF | | | | | | PATHOLOGY | | + +-------+ + + + | TRIPLE P04 | None | /hpf | [facility] | | | CRYSTALS | | | DEPARTMENT | | | | | | OF | | | | | | PATHOLOGY | | + +-------+ + + + | YEAST (LAB) | None | /hpf | [facility] | | | | | | DEPARTMENT | | | | | | OF | | | | | | PATHOLOGY | | + +-------+ + + + | TRICHOMONAS | None | /hpf | [facility] | | | | | | DEPARTMENT | | | | | | OF | | | | | | PATHOLOGY | | + +-------+ + + + + + | Specimen | + + | Urine - Urine | + + + + + + + | Performing | Address | City/State/Zipcode | Phone Number | | Organization | | | | + + + + + | [facility] | [address] | [place] [address] | | | PATHOLOGY | [address] | | | + + + + + URINE SCREEN FOR CULTURE (08/06/2011 1:19 PM PST) + + + + + + | Component | Value | Ref Range | Performed | Pathologist | | | | | At | Signature | + + + + + + | CULT, URINE | Negative for Nitrite and | | [facility] | | | SCREEN | Leukocyte | | DEPARTMENT | | | | Esterase.Culture not | | OF | | | | indicated. | | PATHOLOGY | | + + + + + + + + | Specimen | + + | Urine - Urine | + + + + + + + | Performing | Address | City/State/Zipcode | Phone Number | | Organization | | | | + + + + + | [facility] | [id number] | [place] [address] | | | PATHOLOGY | [address] | | | + + + + + CULTURE, BLOOD BACTI & YEAST (08/06/2011 10:57 AM PST) + + + + + + | Component | Value | Ref Range | Performed | Pathologist | | | | | At | Signature | + + + + + + | SOURCE BODY | Blood, Left Hand | | [facility] | | | SITE | | | [facility] | | | | | | [facility] | | + + + + + + | CULTURE | Blood Culture | | [facility] | | | RESULT | | | [facility] | | | | Source.................. | | LAB-MICRO | | | | : Blood, Left Hand | | | | | | | | | | | | Result.................. | | | | | | . Final: No growth at 5 | | | | | | days. | | | | + + + + + + + + | Specimen | + + | Blood | + + + + + + + | Performing | Address | City/State/Zipcode | Phone Number | | Organization | | | | + + + + + | [facility] | [address] | [place] [address] | | | LAB-MICRO | | | | + + + + + CT ABDOMEN & PELVIS W IV CONTRAST (08/06/2011 9:48 AM PST) + + + + + + | Component | Value | Ref Range | Performed | Pathologist | | | | | At | Signature | + + + + + + | CT ABDOMEN | CT abdomen pelvis with | | | | | & PELVIS W | oral and 100 cc IV | | | | | CONTRAST | visipaque. Comparison: | | | | | | 06/24/2011. History: | | | | | | Evaluate for source of | | | | | | bacteremia. FINDINGS: | | | | | | ABDOMEN: Small left left | | | | | | effusion and mild | | | | | | bibasilar | | | | | | dependentatelectasis. | | | | | | Lung bases are clear. | | | | | | Geographic | | | | | | subcapsularhypoattenuati | | | | | | ng focus within the | | | | | | medial segment seen | | | | | | previously hasresolved, | | | | | | likely focal fatty | | | | | | infiltration. Layering | | | | | | high attenuationstones | | | | | | are present in the | | | | | | gallbladder. There is | | | | | | no biliary ductdilation. | | | | | | Pancreas, and spleen, | | | | | | adrenal glands, and and | | | | | | right kidneyare normal. | | | | | | Left upper pole | | | | | | subcentimeter cyst | | | | | | unchanged. | | | | | | Slightexpansion of a | | | | | | subcapsular posterior | | | | | | lower pole 11 mm | | | | | | diameter cysticlesion | | | | | | with trace crescentic | | | | | | subcapsular fluid. No | | | | | | surrounding | | | | | | rimenhancement or | | | | | | perinephric stranding is | | | | | | present. This | | | | | | likelyrepresents a | | | | | | ruptured cyst. PELVIS: | | | | | | Bladder is mildly thick | | | | | | walled with perivesical | | | | | | strandingsuggestive of | | | | | | possible cystitis. | | | | | | Correlate with | | | | | | urinalysis andProstate | | | | | | and seminal vesicles are | | | | | | unremarkable. Changes | | | | | | of prior lowanterior | | | | | | resection are stable | | | | | | without abnormal | | | | | | perianastomotic | | | | | | softtissue recurrence or | | | | | | fluid collection. | | | | | | There is no | | | | | | bowelobstruction. | | | | | | Diverting right lower | | | | | | quadrant loop ileostomy | | | | | | isunchanged. No | | | | | | abdominal pelvic | | | | | | adenopathy. Trace left | | | | | | lowerquadrant free | | | | | | fluid is present image | | | | | | 144. Healed | | | | | | midlineinfraumbilical | | | | | | incision again noted. | | | | | | There is subtle | | | | | | bandlikelucency and | | | | | | sclerosis vertically | | | | | | oriented within the left | | | | | | sacral ala,likely | | | | | | representing a subacute | | | | | | insufficiency fracture, | | | | | | notsignificantly changed | | | | | | from before. No new | | | | | | osseous abnormality | | | | | | seen. IMPRESSION: No | | | | | | acute abnormality. | | | | | | Specifically, no bowel | | | | | | obstruction orabdominal | | | | | | pelvic abscess. Tiny | | | | | | left pleural effusion | | | | | | and trace leftlower | | | | | | quadrant free fluid | | | | | | likely reflecting volume | | | | | | overload. Mildly | | | | | | thickened bladder with | | | | | | minimal perivesical | | | | | | stranding | | | | | | possiblyreflecting | | | | | | cystitis. Correlate | | | | | | with urinalysis. | | | | | | Attending Radiologists: | | | | | | Cynthia Peralta M.D.Author: | | | | | | Cynthia Peralta M.D. I have | | | | | | personally viewed this | | | | | | procedure/exam, reviewed | | | | | | this report,and made | | | | | | changes to it where | | | | | | appropriate. | | | | | | Final/Electronically | | | | | | signed / Cynthia Peralta | | | | | | 08/06/2011 10:14 AM | | | | + + + + + + + + | Specimen | + + | | + + + +---------+ + + | Performing | Address | City/State/Zipcode | Phone Number | | Organization | | | | + +---------+ + + | [facility] DEPARTMENT OF | | | | | RADIOLOGY | | | | + +---------+ + + LAB REPORTS (08/06/2011 9:47 AM PST) + + + | Narrative | Performed At | + + + | | | + + + + + | Transcriptions | + + | Other, Faculty - 08/06/2011 9:54 AM PST | + + MAGNESIUM, PLASMA (08/06/2011 5:40 AM PST) + +-------+ + + + | Component | Value | Ref Range | Performed | Pathologist | | | | | At | Signature | + +-------+ + + + | MAGNESIUM,P | 2.0 | 1.8 - 2.5 mg/dL | [facility] | | | LASMA | | | DEPARTMENT | | | | | | OF | | | | | | PATHOLOGY | | + +-------+ + + + + + | Specimen | + + | Blood - Blood | + + + + + + + | Performing | Address | City/State/Zipcode | Phone Number | | Organization | | | | + + + + + | [facility] DEPARTMENT OF | [address] | [place] [address] | | | PATHOLOGY | [address] | | | + + + + + COMPLETE METABOLIC SET (NA,K,CL,CO2,BUN,CREAT,GLUC,CA,AST,ALT,BILI TOTAL,ALK PHOS,ALB,PROT TOTAL) (08/06/2011 5:40 AM PST) + + + + + + | Component | Value | Ref Range | Performed | Pathologist | | | | | At | Signature | + + + + + + | GLUCOSE, | 155 (H) | 60 - 99 mg/dL | [...] + + + + | CREATININE | 1.42 (H) | 0.70 - 1.30 | [facility] | | | PLASMA | | mg/dL | DEPARTMENT | | | (LAB) | | | OF | | | | | | PATHOLOGY | | + + + + + + | TOTAL | 5.8 (L) | 6.1 - 7.9 g/dL | [facility] | | | PROTEIN, | | | DEPARTMENT | | | PLASMA | | | OF | | | (LAB) | | | PATHOLOGY | | + + + + + + | ALBUMIN, | 1.9 (L) | 3.5 - 4.7 g/dL | [facility] | | | PLASMA | | | DEPARTMENT | | | (LAB) | | | OF | | | | | | PATHOLOGY | | + + + + + + | CALCIUM, | 8.2 (L) | 8.6 - 10.2 | [facility] | | | PLASMA | | mg/dL | DEPARTMENT | | | (LAB) | | | OF | | | | | | PATHOLOGY | | + + + + + + | BILIRUBIN | 1.6 (H) | 0.3 - 1.2 mg/dL | [facility] | | | TOTAL | | | DEPARTMENT | | | | | | OF | | | | | | PATHOLOGY | | + + + + + + | ALK PHOS | 308 (H) | 56 - 119 U/L | [facility] | | | | | | DEPARTMENT | | | | | | OF | | | | | | PATHOLOGY | | + + + + + + | AST(SGOT) | 46 (H) | 15 - 41 U/L | [facility] | | | | | | DEPARTMENT | | | | | | OF | | | | | | PATHOLOGY | | + + + + + + | SODIUM, | 133 (L) | 134 - 143 | [facility] | | | PLASMA | | mmol/L | DEPARTMENT | | | (LAB) | | | OF | | | | | | PATHOLOGY | | + + + + + + | POTASSIUM, | 3.6 | 3.4 - 5.0 | [facility] | | | PLASMA | | mmol/L | DEPARTMENT | | | (LAB) | | | OF | | | | | | PATHOLOGY | | + + + + + + | CHLORIDE, | 98 | 97 - 108 mmol/L | [facility] | | | PLASMA | | | DEPARTMENT | | | (LAB) | | | OF | | | | | | PATHOLOGY | | + + + + + + | TOTAL CO2, | 27 | 22 - 29 mmol/L | [facility] | | | PLASMA | | | DEPARTMENT | | | (LAB) | | | OF | | | | | | PATHOLOGY | | + + + + + + | ALT (SGPT) | 65 (H) | 13 - 48 U/L | [facility] | | | | | | DEPARTMENT | | | | | | OF | | | | | | PATHOLOGY | | + + + + + + | ANION GAP | 8 | 4 - 11 mmol/L | [facility] | | | | | | DEPARTMENT | | | | | | OF | | | | | | PATHOLOGY | | + + + + + + | ANION | 13 (H) | 4 - 11 mmol/L | [facility] [...] | + + + + + | [facility] DEPARTMENT OF | [address] | [place] [address] | | | PATHOLOGY | [address] | | | + + + + + CBC ONLY (08/06/2011 5:40 AM PST) + + + + + + | Component | Value | Ref Range | Performed | Pathologist | | | | | At | Signature | + + + + + + | WHITE CELL | 8.2 | 4.4 - 11.0 K/cu | [facility] | | | COUNT | | mm | DEPARTMENT | | | | | | OF | | | | | | PATHOLOGY | | + + + + + + | RED CELL | 2.77 (L) | 4.50 - 5.90 | [facility] | | | COUNT | | M/cu mm | DEPARTMENT | | | | | | OF | | | | | | PATHOLOGY | | + + + + + + | HEMOGLOBIN | 8.9 (L) | 13.5 - 17.5 | [facility] | | | | | g/dL | DEPARTMENT | | | | | | OF | | | | | | PATHOLOGY | | + + + + + + | HEMATOCRIT | 26.2 (L) | 41.0 - 53.0 % | [facility] | | | | | | DEPARTMENT | | | | | | OF | | | | | | PATHOLOGY | | + + + + + + | MCV | 94.6 | 80.0 - 96.0 fL | [facility] | | | | | | DEPARTMENT | | | | | | OF | | | | | | PATHOLOGY | | + + + + + + | MCHC | 34.1 | 33.4 - 35.5 | [facility] | [...] + + + + | PLATELET | 414 (H) | 150 - 400 K/cu | [facility] [...] | [facility] DEPARTMENT OF | [address] | [place] [address] | | | PATHOLOGY | [address] | | | + + + + + PSA, FREE AND TOTAL,SERUM (08/06/2011 5:40 AM PST) + +--------+ + + + | Component | Value | Ref Range | Performed | Pathologist | | | | | At | Signature | + +--------+ + + + | FREE PSA | 0.16 | ng/mL | [facility] | | | | | | [facility]AL | | | | | | LABORATORY | | + +--------+ + + + | TOTAL PSA | 1.00 | <4.51 ng/mL | [facility] | | | | | | [facility] | | | | | | LABORATORY | | + +--------+ + + + | % FREE PSA | 16 (L) | >25 % | [facility] | | | | | | REG[facility]AL | | | | | | LABORATORY | | + +--------+ + + + + + | Specimen | + + | Blood - Blood | + + + + + | Narrative | Performed At | + + + | % Probability of Prostate Cancer for Patients | [facility] | | with Total PSA between 4.1 and 10.0 ng/mL | REGIONAL | | FREE PSA (%) PROBABILITY | LABORATORY | | | | | 0.0 - 10 | | | 56 10.1 - 15 | | | 28 15.1 - 20 | | | 20 20.1 - | | | 25 16 | | | > 25 8 | | | Catie et al: ANGEL [phone] (1998) | | | AGE-ADJUSTED TOTAL PSA NORMAL VALUES | | | AGE (YEARS) NORMAL VALUE (ng/mL) | | | 49 or Less Less than or equal to 2.5 | | | 50-59 Less than or | | | equal to 3.5 60-69 | | | Less than or equal to 4.5 70 or Greater | | | Less than or equal to 6.5 The | | | determination that this age-adjusted PSA is either | | | normal or abnormal is valid only if this patient has | | | never been treated for prostate cancer and is not on any | | | medication that would change the PSA value. Clinical | | | correlation is strongly recommended. This PSA | | | assay was performed using a chemiluminescent | | | immunoassay method. [facility] | | | [facility] [place] [address] | | | [place] [address] | | + + + + + + + + | Performing | Address | City/State/Zipcode | Phone Number | | Organization | | | | + + + + + | [facility] | [address] | [place] [address] | | | LABORATORY | | | | + + + + + CULTURE, BLOOD BACTI & YEAST (08/05/2011 2:09 PM PST) + + + + + + | Component | Value | Ref Range | Performed | Pathologist | | | | | At | Signature | + + + + + + | SOURCE BODY | Blood Right Hand | | [facility] | | | SITE | | | REGIONAL | | | | | | LAB-MICRO | | + + + + + + | CULTURE | Blood Culture | | [facility] | | | RESULT | | | REGIONAL | | | | Source.................. | | LAB-MICRO | | | | : Blood Right Hand | | | | | | | | | | | | Result.................. | | | | | | . Final: No growth at 5 | | | | | | days. | | | | + + + + + + + + | Specimen | + + | Blood | + + + + + + + | Performing | Address | City/State/Zipcode | Phone Number | | Organization | | | | + + + + + | [facility] | [address] | [place] [address] | | | LAB-MICRO | | | | + + + + + IRON AND TIBC, SERUM (08/05/2011 2:09 PM PST) + +---------+ + + + | Component | Value | Ref Range | Performed | Pathologist | | | | | At | Signature | + +---------+ + + + | IRON SERUM | 24 (L) | 40 - 150 ug/dL | [facility] | | | | | | [facility]AL | | | | | | LABORATORY | | + +---------+ + + + | IRON BIND | 163 (L) | 225 - 410 ug/dL | [facility] | | | CAP SERUM | | | REGIONAL | | | | | | LABORATORY | | + +---------+ + + + | % | 15 (L) | 20 - 50 % | [facility] | | | SATURATION | | | REGIONAL | | | TRANSFERRIN | | | LABORATORY | | | , SERUM | | | | | + +---------+ + + + + + | Specimen | + + | Blood - Blood | + + + + + | Narrative | Performed At | + + + | Reference Range Change effective 08/10/08 | [facility] | | [facility] | | [facility] [place] [address] | LABORATORY | | [place] [address] | | + + + + + + + + | Performing | Address | City/State/Zipcode | Phone Number | | Organization | | | | + + + + + | [facility] | [address] | [place] [address] | | | LABORATORY | | | | + + + + + FOLATE, SERUM (08/05/2011 2:09 PM PST) + +--------+ + + + | Component | Value | Ref Range | Performed | Pathologist | | | | | At | Signature | + +--------+ + + + | FOLATE,SERU | > 24.0 | >3.9 ng/ml | [facility] | | | M | | | REGIONAL | | | | | | LABORATORY | | + +--------+ + + + + + | Specimen | + + | Blood - Blood | + + + + + | Narrative | Performed At | + + + | Reference Range change effective 06/15/11 | [facility] | | [facility] | [facility] | | [place] [address] | LABORATORY | | [place] [address] | | + + + + + + + + | Performing | Address | City/State/Zipcode | Phone Number | | Organization | | | | + + + + + | [facility] | [address] | [place] [address] | | | LABORATORY | | | | + + + + + VITAMIN B-12, SERUM (08/05/2011 2:09 PM PST) + +-------+ + + + | Component | Value | Ref Range | Performed | Pathologist | | | | | At | Signature | + +-------+ + + + | VITAMIN | 912 | 180 - 914 pg/ml | [facility] | | | B12, SERUM | | | REGIONAL | | | | | | LABORATORY | | + +-------+ + + + + + | Specimen | + + | Blood - Blood | + + + + + | Narrative | Performed At | + + + | Reference Range change effective 06/15/11 | [facility] | | [facility] | REGIONAL | | [place] [address] [facility] | LABORATORY | | [place] [address] | | + + + + + + + + | Performing | Address | City/State/Zipcode | Phone Number | | Organization | | | | + + + + + | [facility] | [address] | [place] [address] | | | LABORATORY | | | | + + + + + BILIRUBIN DIRECT (08/05/2011 2:09 PM PST) + +---------+ + + + | Component | Value | Ref Range | Performed | Pathologist | | | | | At | Signature | + +---------+ + + + | BILIRUBIN | 0.4 (H) | <0.4 mg/dL | [facility] | | | DIRECT | | | DEPARTMENT | | | | | | OF | | | | | | PATHOLOGY | | + +---------+ + + + + + | Specimen | + + | Blood - Blood | + + + + + + + | Performing | Address | City/State/Zipcode | Phone Number | | Organization | | | | + + + + + | [facility] DEPARTMENT OF | [address] | [place] [address] | | | PATHOLOGY | [address] | | | + + + + + MAGNESIUM, PLASMA (08/05/2011 5:36 AM PST) + +-------+ + + + | Component | Value | Ref Range | Performed | Pathologist | | | | | At | Signature | + +-------+ + + + | MAGNESIUM,P | 2.2 | 1.8 - 2.5 mg/dL | [facility] | | | LASMA | | | DEPARTMENT | | | | | | OF | | | | | | PATHOLOGY | | + +-------+ + + + + + | Specimen | + + | Blood - Blood | + + + + + + + | Performing | Address | City/State/Zipcode | Phone Number | | Organization | | | | + + + + + | [facility] DEPARTMENT OF | [address] | [place] [address] | | | PATHOLOGY | [address] | | | + + + + + COMPLETE METABOLIC SET (NA,K,CL,CO2,BUN,CREAT,GLUC,CA,AST,ALT,BILI TOTAL,ALK PHOS,ALB,PROT TOTAL) (08/05/2011 5:36 AM PST) + + + + + + | Component | Value | Ref Range | Performed | Pathologist | | | | | At | Signature | + + + + + + | GLUCOSE, | 143 (H) | 60 - 99 mg/dL | [facility] | | | PLASMA | | | DEPARTMENT | | | (LAB) | | | OF | | | | | | PATHOLOGY | | + + + + + + | BUN, PLASMA | 19 | 6 - 20 mg/dL | [facility] | | | (LAB) | | | DEPARTMENT | | | | | | OF | | | | | | PATHOLOGY | | + + + + + + | CREATININE | 1.46 (H) | 0.70 - 1.30 | [facility] | | | PLASMA | | mg/dL | DEPARTMENT | | | (LAB) | | | OF | | | | | | PATHOLOGY | | + + + + + + | TOTAL | 6.2 | 6.1 - 7.9 g/dL | [facility] | | | PROTEIN, | | | DEPARTMENT | | | PLASMA | | | OF | | | (LAB) | | | PATHOLOGY | | + + + + + + | ALBUMIN, | 2.1 (L) | 3.5 - 4.7 g/dL | [facility] | | | PLASMA | | | DEPARTMENT | | | (LAB) | | | OF | | | | | | PATHOLOGY | | + + + + + + | CALCIUM, | 8.3 (L) | 8.6 - 10.2 | [facility] | | | PLASMA | | mg/dL | DEPARTMENT | | | (LAB) | | | OF | | | | | | PATHOLOGY | | + + + + + + | BILIRUBIN | 2.3 (H) | 0.3 - 1.2 mg/dL | [facility] | | | TOTAL | | | DEPARTMENT | | | | | | OF | | | | | | PATHOLOGY | | + + + + + + | ALK PHOS | 419 (H) | 56 - 119 U/L | [facility] | | | | | | DEPARTMENT | | | | | | OF | | | | | | PATHOLOGY | | + + + + + + | AST(SGOT) | 33 | 15 - 41 U/L | [facility] | | | | | | DEPARTMENT | | | | | | OF | | | | | | PATHOLOGY | | + + + + + + | SODIUM, | 133 (L) | 134 - 143 | [facility] | | | PLASMA | | mmol/L | DEPARTMENT | | | (LAB) | | | OF | | | | | | PATHOLOGY | | + + + + + + | POTASSIUM, | 3.5 | 3.4 - 5.0 | [facility] | | | PLASMA | | mmol/L | DEPARTMENT | | | (LAB) | | | OF | | | | | | PATHOLOGY | | + + + + + + | CHLORIDE, | 99 | 97 - 108 mmol/L | [facility] | | | PLASMA | | | DEPARTMENT | | | (LAB) | | | OF | | | | | | PATHOLOGY | | + + + + + + | TOTAL CO2, | 24 | 22 - 29 mmol/L | [facility] | | | PLASMA | | | DEPARTMENT | | | (LAB) | | | OF | | | | | | PATHOLOGY | | + + + + + + | ALT (SGPT) | 74 (H) | 13 - 48 U/L | [facility] | | | | | | DEPARTMENT | | | | | | OF | | | | | | PATHOLOGY | | + + + + + + | ANION GAP | 10 | 4 - 11 mmol/L | [facility] | | | | | | DEPARTMENT | | | | | | OF | | | | | | PATHOLOGY | | + + + + + + | ANION | 14 (H) | 4 - 11 mmol/L | [facility] [...] | + + + + + | [facility] DEPARTMENT OF | [address] | [place] [address] | | | PATHOLOGY | [address] | | | + + + + + CBC ONLY (08/05/2011 5:36 AM PST) + + + + + + | Component | Value | Ref Range | Performed | Pathologist | | | | | At | Signature | + + + + + + | WHITE CELL | 9.8 | 4.4 - 11.0 K/cu | [facility] | | | COUNT | | mm | DEPARTMENT | | | | | | OF | | | | | | PATHOLOGY | | + + + + + + | RED CELL | 3.18 (L) | 4.50 - 5.90 | [facility] | | | COUNT | | M/cu mm | DEPARTMENT | | | | | | OF | | | | | | PATHOLOGY | | + + + + + + | HEMOGLOBIN | 10.3 (L) | 13.5 - 17.5 | [facility] | | | | | g/dL | DEPARTMENT | | | | | | OF | | | | | | PATHOLOGY | | + + + + + + | HEMATOCRIT | 30.5 (L) | 41.0 - 53.0 % | [facility] | | | | | | DEPARTMENT | | | | | | OF | | | | | | PATHOLOGY | | + + + + + + | MCV | 95.8 | 80.0 - 96.0 fL | [facility] | | | | | | DEPARTMENT | | | | | | OF | | | | | | PATHOLOGY | | + + + + + + | MCHC | 33.9 | 33.4 - 35.5 | [facility] | | | | | g/dL | DEPARTMENT | | | | | | OF | | | | | | PATHOLOGY | | + + + + + + | RDW | 14.3 | 11.5 - 15.0 % | [facility] | | | | | | DEPARTMENT | | | | | | OF | | | | | | PATHOLOGY | | + + + + + + | PLATELET | 401 (H) | 150 - 400 K/cu | [facility] [...] | + + + + + | [facility] | [address] | [place] [address] | | | PATHOLOGY | [address] | | | + + + + + CULTURE, BLOOD BACTI & YEAST (08/04/2011 10:15 AM PST) + + + + + + | Component | Value | Ref Range | Performed | Pathologist | | | | | At | Signature | + + + + + + | SOURCE BODY | Left Antecubital | | [facility] | | | SITE | | | REGIONAL | | | | | | LAB-MICRO | | + + + + + + | CULTURE | Blood Culture | | [facility] | | | RESULT | | | REGIONAL | | | | Source................: | | LAB-MICRO | | | | Left Antecubital | | | | | | Gram Stain: Gram | | | | | | positive cocci in | | | | | | clusters | | | | | | Staphylococcus aureus | | | | | | | | | | | | | | | | | | Final ID | | | | | | Please refer to blood | | | | | | culture collected on | | | | | | 08/01/11 at 16:38 for | | | | | | susceptibility. | | | | | | Growth in Aerobic | | | | | | Bottle Final | | | | | | Report | | | | + + + + + + + + | Specimen | + + | Blood | + + + + + | Narrative | Performed At | + + + | blc RESULTS PHD TO EBONIE @0308. RB | [facility] | | | REG[facility]AL | | | LAB-MICRO | + + + + + + + + | Performing | Address | City/State/Zipcode | Phone Number | | Organization | | | | + + + + + | [facility] | [address] | [place] [address] | | | LAB-MICRO | | | | + + + + + MAGNESIUM, PLASMA (08/04/2011 8:20 AM PST) + +-------+ + + + | Component | Value | Ref Range | Performed | Pathologist | | | | | At | Signature | + +-------+ + + + | MAGNESIUM,P | 2.1 | 1.8 - 2.5 mg/dL | [facility] | | | LASMA | | | DEPARTMENT | | | | | | OF | | | | | | PATHOLOGY | | + +-------+ + + + + + | Specimen | + + | Blood - Blood | + + + + + + + | Performing | Address | City/State/Zipcode | Phone Number | | Organization | | | | + + + + + | [facility] DEPARTMENT OF | [address] | [place] [address] | | | PATHOLOGY | [address] | | | + + + + + COMPLETE METABOLIC SET (NA,K,CL,CO2,BUN,CREAT,GLUC,CA,AST,ALT,BILI TOTAL,ALK PHOS,ALB,PROT TOTAL) (08/04/2011 8:20 AM PST) + + + + + + | Component | Value | Ref Range | Performed | Pathologist | | | | | At | Signature | + + + + + + | GLUCOSE, | 92 | 60 - 99 mg/dL | [facility] | | | PLASMA | | | DEPARTMENT | | | (LAB) | | | OF | | | | | | PATHOLOGY | | + + + + + + | BUN, PLASMA | 23 (H) | 6 - 20 mg/dL | [facility] | | | (LAB) | | | DEPARTMENT | | | | | | OF | | | | | | PATHOLOGY | | + + + + + + | CREATININE | 1.55 (H) | 0.70 - 1.30 | [facility] | | | PLASMA | | mg/dL | DEPARTMENT | | | (LAB) | | | OF | | | | | | PATHOLOGY | | + + + + + + | TOTAL | 5.7 (L) | 6.1 - 7.9 g/dL | [facility] | | | PROTEIN, | | | DEPARTMENT | | | PLASMA | | | OF | | | (LAB) | | | PATHOLOGY | | + + + + + + | ALBUMIN, | 2.2 (L) | 3.5 - 4.7 g/dL | [facility] | | | PLASMA | | | DEPARTMENT | | | (LAB) | | | OF | | | | | | PATHOLOGY | | + + + + + + | CALCIUM, | 8.2 (L) | 8.6 - 10.2 | [facility] | | | PLASMA | | mg/dL | DEPARTMENT | | | (LAB) | | | OF | | | | | | PATHOLOGY | | + + + + + + | BILIRUBIN | 3.3 (H) | 0.3 - 1.2 mg/dL | [facility] | | | TOTAL | | | DEPARTMENT | | | | | | OF | | | | | | PATHOLOGY | | + + + + + + | ALK PHOS | 453 (H) | 56 - 119 U/L | [facility] | | | | | | DEPARTMENT | | | | | | OF | | | | | | PATHOLOGY | | + + + + + + | AST(SGOT) | 45 (H) | 15 - 41 U/L | [facility] | | | | | | DEPARTMENT | | | | | | OF | | | | | | PATHOLOGY | | + + + + + + | SODIUM, | 136 | 134 - 143 | [facility] | | | PLASMA | | mmol/L | DEPARTMENT | | | (LAB) | | | OF | | | | | | PATHOLOGY | | + + + + + + | POTASSIUM, | 3.8 | 3.4 - 5.0 | [facility] | | | PLASMA | | mmol/L | DEPARTMENT | | | (LAB) | | | OF | | | | | | PATHOLOGY | | + + + + + + | CHLORIDE, | 101 | 97 - 108 mmol/L | [facility] | | | PLASMA | | | DEPARTMENT | | | (LAB) | | | OF | | | | | | PATHOLOGY | | + + + + + + | TOTAL CO2, | 23 | 22 - 29 mmol/L | [facility] | | | PLASMA | | | DEPARTMENT | | | (LAB) | | | OF | | | | | | PATHOLOGY | | + + + + + + | ALT (SGPT) | 85 (H) | 13 - 48 U/L | [facility] | | | | | | DEPARTMENT | | | | | | OF | | | | | | PATHOLOGY | | + + + + + + | ANION GAP | 12 (H) | 4 - 11 mmol/L | [facility] | | | | | | DEPARTMENT | | | | | | OF | | | | | | PATHOLOGY | | + + + + + + | ANION | 16 (H) | 4 - 11 mmol/L | [facility] [...] | + + + + + | [facility] DEPARTMENT OF | [address] | [place] [address] | | | PATHOLOGY | [address] | | | + + + + + CBC ONLY (08/04/2011 8:20 AM PST) + + + + + + | Component | Value | Ref Range | Performed | Pathologist | | | | | At | Signature | + + + + + + | WHITE CELL | 6.8 | 4.4 - 11.0 K/cu | [facility] | | | COUNT | | mm | DEPARTMENT | | | | | | OF | | | | | | PATHOLOGY | | + + + + + + | RED CELL | 2.92 (L) | 4.50 - 5.90 | [facility] | | | COUNT | | M/cu mm | DEPARTMENT | | | | | | OF | | | | | | PATHOLOGY | | + + + + + + | HEMOGLOBIN | 9.6 (L) | 13.5 - 17.5 | [facility] | | | | | g/dL | DEPARTMENT | | | | | | OF | | | | | | PATHOLOGY | | + + + + + + | HEMATOCRIT | 27.7 (L) | 41.0 - 53.0 % | [facility] | | | | | | DEPARTMENT | | | | | | OF | | | | | | PATHOLOGY | | + + + + + + | MCV | 95.0 | 80.0 - 96.0 fL | [facility] | | | | | | DEPARTMENT | | | | | | OF | | | | | | PATHOLOGY | | + + + + + + | MCHC | 34.8 | 33.4 - 35.5 | [facility] | | | | | g/dL | DEPARTMENT | | | | | | OF | | | | | | PATHOLOGY | | + + + + + + | RDW | 13.7 | 11.5 - 15.0 % | [facility] | | | | | | DEPARTMENT | | | | | | OF | | | | | | PATHOLOGY | | + + + + + + | PLATELET | 301 | 150 - 400 K/cu | [facility] | | | COUNT | | mm [...] | + + + + + | [facility] DEPARTMENT OF | [address] | [place] [address] | | | PATHOLOGY | [address] | | | + + + + + COMPLETE METABOLIC SET (NA,K,CL,CO2,BUN,CREAT,GLUC,CA,AST,ALT,BILI TOTAL,ALK PHOS,ALB,PROT TOTAL) (08/03/2011 6:37 PM PST) + + + + + + | Component | Value | Ref Range | Performed | Pathologist | | | | | At | Signature | + + + + + + | GLUCOSE, | 106 (H) | 60 - 99 mg/dL | [facility] | | | PLASMA | | | DEPARTMENT | | | (LAB) | | | OF | | | | | | PATHOLOGY | | + + + + + + | BUN, PLASMA | 17 | 6 - 20 mg/dL | [facility] | | | (LAB) | | | DEPARTMENT | | | | | | OF | | | | | | PATHOLOGY | | + + + + + + | CREATININE | 1.50 (H) | 0.70 - 1.30 | [facility] | | | PLASMA | | mg/dL | DEPARTMENT | | | (LAB) | | | OF | | | | | | PATHOLOGY | | + + + + + + | TOTAL | 5.9 (L) | 6.1 - 7.9 g/dL | [facility] | | | PROTEIN, | | | DEPARTMENT | | | PLASMA | | | OF | | | (LAB) | | | PATHOLOGY | | + + + + + + | ALBUMIN, | 2.3 (L) | 3.5 - 4.7 g/dL | [facility] | | | PLASMA | | | DEPARTMENT | | | (LAB) | | | OF | | | | | | PATHOLOGY | | + + + + + + | CALCIUM, | 8.2 (L) | 8.6 - 10.2 | [facility] | | | PLASMA | | mg/dL | DEPARTMENT | | | (LAB) | | | OF | | | | | | PATHOLOGY | | + + + + + + | BILIRUBIN | 2.9 (H) | 0.3 - 1.2 mg/dL | [facility] | | | TOTAL | | | DEPARTMENT | | | | | | OF | | | | | | PATHOLOGY | | + + + + + + | ALK PHOS | 502 (H) | 56 - 119 U/L | [facility] | | | | | | DEPARTMENT | | | | | | OF | | | | | | PATHOLOGY | | + + + + + + | AST(SGOT) | 70 (H) | 15 - 41 U/L | [facility] | | | | | | DEPARTMENT | | | | | | OF | | | | | | PATHOLOGY | | + + + + + + | SODIUM, | 135 | 134 - 143 | [facility] | | | PLASMA | | mmol/L | DEPARTMENT | | | (LAB) | | | OF | | | | | | PATHOLOGY | | + + + + + + | POTASSIUM, | 4.0 | 3.4 - 5.0 | [facility] | | | PLASMA | | mmol/L | DEPARTMENT | | | (LAB) | | | OF | | | | | | PATHOLOGY | | + + + + + + | CHLORIDE, | 100 | 97 - 108 mmol/L | [facility] | | | PLASMA | | | DEPARTMENT | | | (LAB) | | | OF | | | | | | PATHOLOGY | | + + + + + + | TOTAL CO2, | 25 | 22 - 29 mmol/L | [facility] | | | PLASMA | | | DEPARTMENT | | | (LAB) | | | OF | | | | | | PATHOLOGY | | + + + + + + | ALT (SGPT) | 111 (H) | 13 - 48 U/L | [facility] | | | | | | DEPARTMENT | | | | | | OF | | | | | | PATHOLOGY | | + + + + + + | ANION GAP | 10 | 4 - 11 mmol/L | [facility] | | | | | | DEPARTMENT | | | | | | OF | | | | | | PATHOLOGY | | + + + + + + | ANION | 14 (H) | 4 - 11 mmol/L | [facility] [...] | + + + + + | [facility] | [address] [address] | [place] [address] | | | PATHOLOGY | [address] | | | + + + + + TOTAL RESULTS FOR,URINE (08/03/2011 5:44 PM PST) + + + + + + | Component | Value | Ref Range | Performed | Pathologist | | | | | At | Signature | + + + + + + | COLLECTION | RandomComment: | hr | [facility] | | | INTERVAL, | Normal values based on | | DEPARTMENT | | | UR | 24 Hrs. collection | | OF | | | | interval. Patient | | PATHOLOGY | | | | results are | | | | | | calculated from actual | | | | | | collection interval | | | | | | andvolume. | | | | + + + + + + | URINE | Spot | mL | [facility] | | | VOLUME - | | | DEPARTMENT | | | [facility] | | | OF | | | | | | PATHOLOGY | | + + + + + + + + | Specimen | + + | | + + + + + + + | Performing | Address | City/State/Zipcode | Phone Number | | Organization | | | | + + + + + | [facility] | [address] | [place] [address] | | | PATHOLOGY | [address] | | | + + + + + SODIUM TOTAL, URINE (08/03/2011 5:44 PM PST) + +-------+ + + + | Component | Value | Ref Range | Performed | Pathologist | | | | | At | Signature | + +-------+ + + + | SODIUM CONC | 76 | mmol/L | [facility] | | | URINE | | | DEPARTMENT | | | | | | OF | | | | | | PATHOLOGY | | + +-------+ + + + + + | Specimen | + + | Urine - Urine | + + + + + + + | Performing | Address | City/State/Zipcode | Phone Number | | Organization | | | | + + + + + | [facility] | [address] | [place] [address] | | | PATHOLOGY | [address] | | | + + + + + CREATININE, URINE (08/03/2011 5:44 PM PST) + +-------+ + + + | Component | Value | Ref Range | Performed | Pathologist | | | | | At | Signature | + +-------+ + + + | CREATININE | 44.91 | mg/dL | [facility] | | | CONC UR | | | DEPARTMENT | | | | | | OF | | | | | | PATHOLOGY | | + +-------+ + + + + + | Specimen | + + | Urine - Urine | + + + + + + + | Performing | Address | City/State/Zipcode | Phone Number | | Organization | | | | + + + + + | [facility] DE[facility]MENT [facility] | [address] | [place] [address] | | | PATHOLOGY | [address] | | | + + + + + CK, PLASMA (08/03/2011 2:35 PM PST) + +--------+ + + + | Component | Value | Ref Range | Performed | Pathologist | | | | | At | Signature | + +--------+ + + + | CK | 27 (L) | 49 - 397 U/L | [facility] | | | | | | DEPARTMENT | | | | | | OF | | | | | | PATHOLOGY | | + +--------+ + + + + + | Specimen | + + | Blood - Blood | + + + + + + + | Performing | Address | City/State/Zipcode | Phone Number | | Organization | | | | + + + + + | [facility] | [address] | [place] [address] | | | PATHOLOGY | [address] | | | + + + + + SEDIMENTATION RATE (08/03/2011 2:35 PM PST) + +---------+ + + + | Component | Value | Ref Range | Performed | Pathologist | | | | | At | Signature | + +---------+ + + + | SEDIMENTATI | 117 (H) | <21 mm/hr | [facility] | | | ON RATE | | | DEPARTMENT | | | | | | OF | | | | | | PATHOLOGY | | + +---------+ + + + + + | Specimen | + + | Blood - Blood | + + + + + + + | Performing | Address | City/State/Zipcode | Phone Number | | Organization | | | | + + + + + | [facility] | [address] | [place] [address] | | | PATHOLOGY | [address] | | | + + + + + C-REACT PRTN (FOR INFLAMMATION) (08/03/2011 2:35 PM PST) + + + + + + | Component | Value | Ref Range | Performed | Pathologist | | | | | At | Signature | + + + + + + | C-REACTIVE | 15.3 (H) | <0.6 mg/dl | [facility] | | | PROTEIN | | | REGIONAL | | | | | | LABORATORY | | + + + + + + + + | Specimen | + + | Blood - Blood | + + + + + | Narrative | Performed At | + + + | [facility]) | [facility] | | [facility] [address] | REGIONAL | | [place] [address] | LABORATORY | + + + + + + + + | Performing | Address | City/State/Zipcode | Phone Number | | Organization | | | | + + + + + | [facility] | [address] | [place] [address] | | | LABORATORY | | | | + + + + + VASC LAB PORTABLE VENOUS DUPLEX LOWER EXTREMITY BILATERAL COMPLETE (08/03/2011 2:31 PM PST ) + + + + + + | Component | Value | Ref Range | Performed | Pathologist | | | | | At | Signature | + + + + + + | VASC LAB | Med Rec No: | | | | | PORTABLE | [id number] Name: | | | | | VENOUS | TYLOR OLIVERA | | | | | DUPLEX | Birthday: 1945 | | | | | LOWER | Sex: M Alias: | | | | | EXTREMITY | Patient Location: | | | | | BILATERAL | 5AStatus: Inpatient | | | | | COMPLETE | Active Ordering | | | | | | Physician: ISABEL, | | | | | | ALEXLEBP VL PORT | | | | | | VENOUS DUP LANNY CMP LE | | | | | | completed on 08/03/2011 | | | | | | 2:31 PMAccession # | | | | | | [id number] RESULT:LOWER | | | | | | EXTREMITY VENOUS | | | | | | EXAMINATION: | | | | | | 08/03/2011 Dictated | | | | | | 08/05/2011 INDICATION: | | | | | | Leg pain. FINDINGS: | | | | | | The deep and | | | | | | superficial veins of | | | | | | both lower | | | | | | extremitieswere examined | | | | | | with the duplex | | | | | | scanner. There are | | | | | | normal flows | | | | | | andresponses to | | | | | | augmentation and | | | | | | compression maneuvers in | | | | | | the deep andsuperficial | | | | | | veins bilaterally. | | | | | | There is no evidence | | | | | | of deep norsuperficial | | | | | | venous thrombosis | | | | | | bilaterally. IMPRESSION: | | | | | | Normal bilateral lower | | | | | | extremity venous | | | | | | examination. There is | | | | | | noevidence of deep nor | | | | | | superficial venous | | | | | | thrombosis bilaterally. | | | | | | END IMPRESSION: | | | | | | Attending Radiologists: | | | | | | ,Author: ANDRÉS Grande | | | | | | Danielle VELARDE I have | | | | | | personally viewed this | | | | | | procedure/exam, reviewed | | | | | | this report,and made | | | | | | changes to it where | | | | | | appropriate. | | | | | | Final/Electronically | | | | | | jeannine / Andrés Grande | | | | | | Ehsan 08/06/2011 | | | | | | 11:06AM Preliminary / | | | | | | Domitila Herrera | | | | | | 08/06/2011 12:21 AM | | | | | | | | | | + + + + + + + + | Specimen | + + | | + + + +---------+ + + | Performing | Address | City/State/Zipcode | Phone Number | | Organization | | | | + +---------+ + + | [facility] | | | | | RADIOLOGY | | | | + +---------+ + + CT CTA CHEST WITH CONTRAST (NON CORONARY/NON CARDIAC) (08/03/2011 1:14 PM PST) + + + + + + | Component | Value | Ref Range | Performed | Pathologist | | | | | At | Signature | + + + + + + | CT CTA | EXAM: CHEST CTA with | | | | | CHEST W | IV Contrast, 08/03/11 | | | | | CONTRAST | HISTORY:Chest pain, | | | | | | evaluate for PE/aortic | | | | | | dissection. History | | | | | | ofrectal cancer | | | | | | COMPARISON: Chest | | | | | | radiograph dated 08/01/11 | | | | | | and CT chest abdomen | | | | | | andpelvis with contrast | | | | | | dated 06/20/11. | | | | | | TECHNIQUE: Visipaque, | | | | | | 100 ml IV contrast was | | | | | | given. 1.5-mm | | | | | | thickaxial images at | | | | | | 0.75-mm intervals were | | | | | | generated. Oblique | | | | | | MIPreconstructed images | | | | | | were also obtained. | | | | | | FINDINGS: There is | | | | | | good opacification of | | | | | | the main, lobar, | | | | | | segmentaland proximal | | | | | | subsegmental pulmonary | | | | | | arteries. There is no | | | | | | evidencefor filling | | | | | | defect to suggest | | | | | | pulmonary embolism. | | | | | | There is noevidence of | | | | | | right heart strain. | | | | | | Atherosclerotic | | | | | | calcification of | | | | | | thethoracic aorta and | | | | | | coronary arteries is | | | | | | noted, without aneurysm | | | | | | ordissection. The | | | | | | heart is normal in size, | | | | | | without | | | | | | pericardialeffusion. | | | | | | There is no | | | | | | pneumothorax or | | | | | | hydrostatic edema. Small | | | | | | bilateral pleural | | | | | | effusions are present, | | | | | | with adjacentbibasilar | | | | | | passive atelectasis. | | | | | | Minimal posterior | | | | | | right upper lobetree in | | | | | | bud nodularity and | | | | | | ground glass opacity are | | | | | | noted, likelyreflecting | | | | | | aspiration and/or | | | | | | atelectasis. The lungs | | | | | | are otherwiseclear | | | | | | without suspect | | | | | | pulmonary nodule. | | | | | | There is no | | | | | | thoracicadenopathy. | | | | | | Right paratracheal and | | | | | | right hilar lymph nodes | | | | | | are moreprominent | | | | | | compared to the prior | | | | | | examination, measuring | | | | | | up to 8 mm inshort axis. | | | | | | Evaluation of the solid | | | | | | organs is limited by | | | | | | timing of the | | | | | | contrastbolus. | | | | | | Multiple small | | | | | | calcified gallstones are | | | | | | again noted. | | | | | | Thevisualized upper | | | | | | abdominal contents are | | | | | | otherwise | | | | | | unremarkable.There is no | | | | | | suspicious osseous | | | | | | abnormality. | | | | | | Multilevel | | | | | | degenerativechanges are | | | | | | noted in the spine. | | | | | | Old healed right-sided | | | | | | rib fracturesare | | | | | | noted.There is advanced, | | | | | | right more so than left | | | | | | bilateralglenohumeral | | | | | | arthritic change. | | | | | | IMPRESSION: 1.No | | | | | | evidence of pulmonary | | | | | | embolus or aortic | | | | | | dissection. | | | | | | Minimalposterior upper | | | | | | lobe tree in bud | | | | | | nodularity and | | | | | | groundglass | | | | | | opacitylikely represents | | | | | | trace aspiration and/or | | | | | | atelectasis. 2. Small | | | | | | bilateral pleural | | | | | | effusions with adjacent | | | | | | passiveatelectasis. 3. 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 | | | | | | I have personally viewed | | | | | | this procedure/exam, | | | | | | reviewed this report,and | | | | | | made changes to it | | | | | | where appropriate. | | | | | | Final/Electronically | | | | | | signed / Benjy Sommer | | | | | | Casey 08/03/2011 | | | | | | 14:38PM | | | | + + + + + + + + | Specimen | + + | | + + + +---------+ + + | Performing | Address | City/State/Zipcode | Phone Number | | Organization | | | | + +---------+ + + | [facility] | | | | | RADIOLOGY | | | | + +---------+ + + D-DIMER, (PE OR DIC) (08/03/2011 6:10 AM PST) + + + + + + | Component | Value | Ref Range | Performed | Pathologist | | | | | At | Signature | + + + + + + | D-DIMER (PE | > 4.00Comment: | ug/mLFEU | [facility] | | | OR DIC) | D-Dimer Interpretation: | | DEPARTMENT | | | | <0.50 PE | | OF | | | | very unlikely | | PATHOLOGY | | | | 0.50-4.0 Seen in ill | | | | | | patients but not | | | | | | diagnostic ofthrombosis. | | | | | | >4.0 | | | | | | Compatible with DIC | | | | | | but not diagnostic. | | | | | | Ifclinically | | | | | | indicated | | | | | | request titration of | | | | | | d-dimer. Values>8.0 | | | | | | | | | | | | are strongly suggestive | | | | | | of DIC. | | | | + + + + + + + + | Specimen | + + | Blood - Peripheral | + + + + + + + | Performing | Address | City/State/Zipcode | Phone Number | | Organization | | | | + + + + + | [facility] | [address] | [place] [address] | | | PATHOLOGY | [address] | | | + + + + + 12 LEAD ECG (08/03/2011 6:00 AM PST) + + + + + + | Component | Value | Ref Range | Performed | Pathologist | | | | | At | Signature | + + + + + + | VENTRICULAR | 70 | BPM | [facility] | | | RATE | | | OF | | | | | | CARDIOLOGY | | + + + + + + | ATRIAL RATE | 70 | BPM | [facility] | | | | | | OF | | | | | | CARDIOLOGY | | + + + + + + | P-R | 184 | ms | [facility] | | | INTERVAL | | | OF | | | | | | CARDIOLOGY | | + + + + + + | QRS | 88 | ms | [facility] | | | DURATION | | | OF | | | | | | CARDIOLOGY | | + + + + + + | QT | 382 | ms | [facility] | | | | | | OF | | | | | | CARDIOLOGY | | + + + + + + | QTC | 412 | ms | [facility] | | | | | | OF | | | | | | CARDIOLOGY | | + + + + + + | P AXIS | 74 | degrees | [facility] | | | | | | OF | | | | | | CARDIOLOGY | | + + + + + + | R AXIS | 68 | degrees | [facility] | | | | | | OF | | | | | | CARDIOLOGY | | + + + + + + | T AXIS | 53 | degrees | [facility] | | [...] by | | | | | | VALERIA BONILLA ([id number]) on | | | | | | 08/04/2011 9:49:37 AM | | | | + + + + + + + + | Specimen | + + | | + + + + + | Narrative | Performed At | + + + | Please click | [facility] | | on view image for the detailed interpretation from [employer] results. | CARDIOLOGY | + + + + + + + + | Performing | Address | City/State/Zipcode | Phone Number | | Organization | | | | + + + + + | [facility] | [address] | [place], [place] | | | CARDIOLOGY | [address] | [address] | | + + + + + TROPONIN I, PLASMA (08/03/2011 5:47 AM PST) + +-------+ + + + | Component | Value | Ref Range | Performed | Pathologist | | | | | At | Signature | + +-------+ + + + | TROPONIN I | 0.07 | <0.50 ng/mL | [facility] | | | | | | DEPARTMENT | | | | | | OF | | | | | | PATHOLOGY | | + +-------+ + + + + + | Specimen | + + | Blood - Blood | + + + + + + + | Performing | Address | City/State/Zipcode | Phone Number | | Organization | | | | + + + + + | [facility] | [address] | [place] [address] | | | PATHOLOGY | [address] | | | + + + + + OCCULT BLOOD, FECES, SCREEN (08/03/2011 3:37 AM PST) + + + + + + | Component | Value | Ref Range | Performed | Pathologist | | | | | At | Signature | + + + + + + | OCCULT | Negative | Negative | [facility] | | | BLOOD, | | | DEPARTMENT | | | FECES, | | | OF | | | SCREEN | | | PATHOLOGY | | + + + + + + + + | Specimen | + + | Feces - Stool | + + + + + + + | Performing | Address | City/State/Zipcode | Phone Number | | Organization | | | | + + + + + | [facility] | [address] | [place] [address] | | | PATHOLOGY | [address] | | | + + + + + MAGNESIUM, PLASMA (08/03/2011 12:05 AM PST) + +-------+ + + + | Component | Value | Ref Range | Performed | Pathologist | | | | | At | Signature | + +-------+ + + + | MAGNESIUM,P | 2.2 | 1.8 - 2.5 mg/dL | [facility] | | | LASMA | | | DEPARTMENT | | | | | | OF | | | | | | PATHOLOGY | | + +-------+ + + + + + | Specimen | + + | Blood - Blood | + + + + + + + | Performing | Address | City/State/Zipcode | Phone Number | | Organization | | | | + + + + + | [facility] | [address] | [place] [address] | | | PATHOLOGY | [address] | | | + + + + + COMPLETE METABOLIC SET (NA,K,CL,CO2,BUN,CREAT,GLUC,CA,AST,ALT,BILI TOTAL,ALK PHOS,ALB,PROT TOTAL) (08/03/2011 12:05 AM PST) + + + + + + | Component | Value | Ref Range | Performed | Pathologist | | | | | At | Signature | + + + + + + | GLUCOSE, | 102 (H) | 60 - 99 mg/dL | [facility] | | | PLASMA | | | DEPARTMENT | | | (LAB) | | | OF | | | | | | PATHOLOGY | | + + + + + + | BUN, PLASMA | 15 | 6 - 20 mg/dL | [facility] | | | (LAB) | | | DEPARTMENT | | | | | | OF | | | | | | PATHOLOGY | | + + + + + + | CREATININE | 1.47 (H) | 0.70 - 1.30 | [facility] | | | PLASMA | | mg/dL | DEPARTMENT | | | (LAB) | | | OF | | | | | | PATHOLOGY | | + + + + + + | TOTAL | 5.6 (L) | 6.1 - 7.9 g/dL | [facility] | | | PROTEIN, | | | DEPARTMENT | | | PLASMA | | | OF | | | (LAB) | | | PATHOLOGY | | + + + + + + | ALBUMIN, | 2.2 (L) | 3.5 - 4.7 g/dL | [facility] | | | PLASMA | | | DEPARTMENT | | | (LAB) | | | OF | | | | | | PATHOLOGY | | + + + + + + | CALCIUM, | 8.4 (L) | 8.6 - 10.2 | [facility] | | | PLASMA | | mg/dL | DEPARTMENT | | | (LAB) | | | OF | | | | | | PATHOLOGY | | + + + + + + | BILIRUBIN | 2.4 (H) | 0.3 - 1.2 mg/dL | [facility] | | | TOTAL | | | DEPARTMENT | | | | | | OF | | | | | | PATHOLOGY | | + + + + + + | ALK PHOS | 527 (H) | 56 - 119 U/L | [facility] | | | | | | DEPARTMENT | | | | | | OF | | | | | | PATHOLOGY | | + + + + + + | AST(SGOT) | 91 (H) | 15 - 41 U/L | [facility] | | | | | | DEPARTMENT | | | | | | OF | | | | | | PATHOLOGY | | + + + + + + | SODIUM, | 132 (L) | 134 - 143 | [facility] | | | PLASMA | | mmol/L | DEPARTMENT | | | (LAB) | | | OF | | | | | | PATHOLOGY | | + + + + + + | POTASSIUM, | 3.9 | 3.4 - 5.0 | [facility] | | | PLASMA | | mmol/L | DEPARTMENT | | | (LAB) | | | OF | | | | | | PATHOLOGY | | + + + + + + | CHLORIDE, | 98 | 97 - 108 mmol/L | [facility] | | | PLASMA | | | DEPARTMENT | | | (LAB) | | | OF | | | | | | PATHOLOGY | | + + + + + + | TOTAL CO2, | 26 | 22 - 29 mmol/L | [facility] | | | PLASMA | | | DEPARTMENT | | | (LAB) | | | OF | | | | | | PATHOLOGY | | + + + + + + | ALT (SGPT) | 129 (H) | 13 - 48 U/L | [facility] | | | | | | DEPARTMENT | | | | | | OF | | | | | | PATHOLOGY | | + + + + + + | ANION GAP | 8 | 4 - 11 mmol/L | [facility] | | | | | | DEPARTMENT | | | | | | OF | | | | | | PATHOLOGY | | + + + + + + | ANION | 12 (H) | 4 - 11 mmol/L | [facility] [...] | [facility] | [address] | [place] [address] | | | PATHOLOGY | [address] | | | + + + + + CBC ONLY (08/03/2011 12:05 AM PST) + + + + + + | Component | Value | Ref Range | Performed | Pathologist | | | | | At | Signature | + + + + + + | WHITE CELL | 6.8 | 4.4 - 11.0 K/cu | [facility] | | | COUNT | | mm | DEPARTMENT | | | | | | OF | | | | | | PATHOLOGY | | + + + + + + | RED CELL | 2.82 (L) | 4.50 - 5.90 | [facility] | | | COUNT | | M/cu mm | DEPARTMENT | | | | | | OF | | | | | | PATHOLOGY | | + + + + + + | HEMOGLOBIN | 9.2 (L) | 13.5 - 17.5 | [facility] | | | | | g/dL | DEPARTMENT | | | | | | OF | | | | | | PATHOLOGY | | + + + + + + | HEMATOCRIT | 26.8 (L) | 41.0 - 53.0 % | [facility] | | | | | | DEPARTMENT | | | | | | OF | | | | | | PATHOLOGY | | + + + + + + | MCV | 95.0 | 80.0 - 96.0 fL | [facility] | | | | | | DEPARTMENT | | | | | | OF | | | | | | PATHOLOGY | | + + + + + + | MCHC | 34.4 | 33.4 - 35.5 | [facility] | | | | | g/dL | DEPARTMENT | | | | | | OF | | | | | | PATHOLOGY | | + + + + + + | RDW | 14.0 | 11.5 - 15.0 % | [facility] | | | | | | DEPARTMENT | | | | | | OF | | | | | | PATHOLOGY | | + + + + + + | PLATELET | 247 | 150 - 400 K/cu | [facility] [...] | [facility] | [address] | [place] [address] | | | PATHOLOGY | [address] | | | + + + + + VITAMIN B-12, SERUM (08/02/2011 10:18 PM PST) + + + + + + | Component | Value | Ref Range | Performed | Pathologist | | | | | At | Signature | + + + + + + | VITAMIN | Not Recd | pg/ml | [facility] | | | B12, SERUM | | | REGIONAL | | | | | | LABORATORY | | + + + + + + + + | Specimen | + + | Blood - Blood | + + + + + + + | Performing | Address | City/State/Zipcode | Phone Number | | Organization | | | | + + + + + | [facility] | [address] | [place] [address] | | | LABORATORY | | | | + + + + + FERRITIN, SERUM (08/02/2011 10:18 PM PST) + + + + + + | Component | Value | Ref Range | Performed | Pathologist | | | | | At | Signature | + + + + + + | FERRITIN | Not Recd | ng/mL | [facility] | | | | | | REGIONAL | | | | | | LABORATORY | | + + + + + + + + | Specimen | + + | Blood - Blood | + + + + + + + | Performing | Address | City/State/Zipcode | Phone Number | | Organization | | | | + + + + + | [facility] | [address] | [place] [address] | | | LABORATORY | | | | + + + + + FOLATE, SERUM (08/02/2011 10:18 PM PST) + + + + + + | Component | Value | Ref Range | Performed | Pathologist | | | | | At | Signature | + + + + + + | FOLATE,SERU | Not Recd | ng/ml | [facility] | | | M | | | REGIONAL | | | | | | LABORATORY | | + + + + + + + + | Specimen | + + | Blood - Blood | + + + + + + + | Performing | Address | City/State/Zipcode | Phone Number | | Organization | | | | + + + + + | [facility] | [address] | [place] [address] | | | LABORATORY | | | | + + + + + IRON AND TIBC, SERUM (08/02/2011 10:18 PM PST) + + + + + + | Component | Value | Ref Range | Performed | Pathologist | | | | | At | Signature | + + + + + + | IRON SERUM | Not Recd | ug/dL | [facility] | | | | | | REGIONAL | | | | | | LABORATORY | | + + + + + + + + | Specimen | + + | Blood - Blood | + + + + + + + | Performing | Address | City/State/Zipcode | Phone Number | | Organization | | | | + + + + + | [facility] | [address] | [place] [address] | | | LABORATORY | | | | + + + + + CULTURE, BLOOD BACTI & YEAST (08/02/2011 3:15 PM PST) + + + + + + | Component | Value | Ref Range | Performed | Pathologist | | | | | At | Signature | + + + + + + | SOURCE BODY | Left Antecubital | | [facility] | | | SITE | | | REGIONAL | | | | | | LAB-MICRO | | + + + + + + | CULTURE | Blood Culture | | [facility] | | | RESULT | | | REGIONAL | | | | Source.................. | | LAB-MICRO | | | | : Left Antecubital | | | | | | | | | | | | Result.................. | | | | | | . Final: No growth at 5 | | | | | | days. | | | | + + + + + + + + | Specimen | + + | Blood - Peripheral | + + + + + + + | Performing | Address | City/State/Zipcode | Phone Number | | Organization | | | | + + + + + | [facility] | [address] | [place] [address] | | | LAB-MICRO | | | | + + + + + CULTURE, BLOOD BACTI & YEAST (08/02/2011 3:15 PM PST) + + + + + + | Component | Value | Ref Range | Performed | Pathologist | | | | | At | Signature | + + + + + + | SOURCE BODY | Right Foot | | [facility] | | | SITE | | | REGIONAL | | | | | | LAB-MICRO | | + + + + + + | CULTURE | Blood Culture | | [facility] | | | RESULT | | | REGIONAL | | | | Source................: | | LAB-MICRO | | | | Right Foot Gram | | | | | | Stain: Gram positive | | | | | | cocci in clusters | | | | | | Staphylococcus aureus | | | | | | | | | | | | | | | | | | Final ID | | | | | | Please refer to blood | | | | | | culture collected on | | | | | | 08/01/2011 at 1638 for | | | | | | complete | | | | | | susceptibilities. | | | | | | Growth in Anaerobic | | | | | | Bottle Final | | | | | | Report | | | | + + + + + + + + | Specimen | + + | Blood - Peripheral | + + + + + + + | Performing | Address | City/State/Zipcode | Phone Number | | Organization | | | | + + + + + | [facility] | [address] | [place] [address] | | | LAB-MICRO | | | | + + + + + TROPONIN I, PLASMA (08/02/2011 10:15 AM PST) + +-------+ + + + | Component | Value | Ref Range | Performed | Pathologist | | | | | At | Signature | + +-------+ + + + | TROPONIN I | 0.07 | <0.50 ng/mL | [facility] | | | | | | DEPARTMENT | | | | | | OF | | | | | | PATHOLOGY | | + +-------+ + + + + + | Specimen | + + | Blood - Blood | + + + + + + + | Performing | Address | City/State/Zipcode | Phone Number | | Organization | | | | + + + + + | [facility] | [address] | [place] [address] | | | PATHOLOGY | [address] | | | + + + + + CULTURE, BLOOD BACTI & YEAST (08/02/2011 7:38 AM PST) + + + + + + | Component | Value | Ref Range | Performed | Pathologist | | | | | At | Signature | + + + + + + | SOURCE BODY | Blood Blood | | [facility] | | | SITE | | | [facility] | | | | | | LAB-MICRO | | + + + + + + | CULTURE | Not Recd | | [facility] | | | RESULT | | | [facility] | | | | | | LAB-MICRO | | + + + + + + + + | Specimen | + + | Blood - Blood | + + + + + + + | Performing | Address | City/State/Zipcode | Phone Number | | Organization | | | | + + + + + | [facility] | [address] | [place] [address] | | | LAB-MICRO | | | | + + + + + TROPONIN I, PLASMA (08/02/2011 12:06 AM PST) + +-------+ + + + | Component | Value | Ref Range | Performed | Pathologist | | | | | At | Signature | + +-------+ + + + | TROPONIN I | 0.07 | <0.50 ng/mL | [facility] | | | | | | DEPARTMENT | | | | | | OF | | | | | | PATHOLOGY | | + +-------+ + + + + + | Specimen | + + | | + + + + + + + | Performing | Address | City/State/Zipcode | Phone Number | | Organization | | | | + + + + + | [facility] | [address] | [place] [address] | | | PATHOLOGY | [address] | | | + + + + + MAGNESIUM, PLASMA (08/02/2011 12:06 AM PST) + +---------+ + + + | Component | Value | Ref Range | Performed | Pathologist | | | | | At | Signature | + +---------+ + + + | MAGNESIUM,P | 1.7 (L) | 1.8 - 2.5 mg/dL | [facility] | | | [facility] | | | DEPARTMENT | | | | | | OF | | | | | | PATHOLOGY | | + +---------+ + + + + + | Specimen | + + | Blood - Blood | + + + + + + + | Performing | Address | City/State/Zipcode | Phone Number | | Organization | | | | + + + + + | [facility] | [address] | [place] [address] | | | PATHOLOGY | [address] | | | + + + + + COMPLETE METABOLIC SET (NA,K,CL,CO2,BUN,CREAT,GLUC,CA,AST,ALT,BILI TOTAL,ALK PHOS,ALB,PROT TOTAL) (08/02/2011 12:06 AM PST) + +---------+ + + + | Component | Value | Ref Range | Performed | Pathologist | | | | | At | Signature | + +---------+ + + + | GLUCOSE, | 109 (H) | 60 - 99 mg/dL | [facility] | | | PLASMA | | | DEPARTMENT | | | (LAB) | | | OF | | | | | | PATHOLOGY | | + +---------+ + + + | BUN, PLASMA | 14 | 6 - 20 mg/dL | [facility] | | | (LAB) | | | DEPARTMENT | | | | | | OF | | | | | | PATHOLOGY | | + +---------+ + + + | CREATININE | 1.11 | 0.70 - 1.30 | [facility] | | | PLASMA | | mg/dL | DEPARTMENT | | | (LAB) | | | OF | | | | | | PATHOLOGY | | + +---------+ + + + | TOTAL | 5.7 (L) | 6.1 - 7.9 g/dL | [facility] | | | PROTEIN, | | | DEPARTMENT | | | PLASMA | | | OF | | | (LAB) | | | PATHOLOGY | | + +---------+ + + + | ALBUMIN, | 2.2 (L) | 3.5 - 4.7 g/dL | [facility] | | | PLASMA | | | DEPARTMENT | | | (LAB) | | | OF | | | | | | PATHOLOGY | | + +---------+ + + + | CALCIUM, | 8.3 (L) | 8.6 - 10.2 | [facility] | | | PLASMA | | mg/dL | DEPARTMENT | | | (LAB) | | | OF | | | | | | PATHOLOGY | | + +---------+ + + + | BILIRUBIN | 1.0 | 0.3 - 1.2 mg/dL | [facility] | | | TOTAL | | | DEPARTMENT | | | | | | OF | | | | | | PATHOLOGY | | + +---------+ + + + | ALK PHOS | 317 (H) | 56 - 119 U/L | [facility] | | | | | | DEPARTMENT | | | | | | OF | | | | | | PATHOLOGY | | + +---------+ + + + | AST(SGOT) | 53 (H) | 15 - 41 U/L | [facility] | | | | | | DEPARTMENT | | | | | | OF | | | | | | PATHOLOGY | | + +---------+ + + + | SODIUM, | 132 (L) | 134 - 143 | [facility] | | | PLASMA | | mmol/L | DEPARTMENT | | | (LAB) | | | OF | | | | | | PATHOLOGY | | + +---------+ + + + | POTASSIUM, | 3.6 | 3.4 - 5.0 | [facility] | | | PLASMA | | mmol/L | DEPARTMENT | | | (LAB) | | | OF | | | | | | PATHOLOGY | | + +---------+ + + + | CHLORIDE, | 102 | 97 - 108 mmol/L | [facility] | | | PLASMA | | | DEPARTMENT | | | (LAB) | | | OF | | | | | | PATHOLOGY | | + +---------+ + + + | TOTAL CO2, | 24 | 22 - 29 mmol/L | [facility] | | | PLASMA | | | DEPARTMENT | | | (LAB) | | | OF | | | | | | PATHOLOGY | | + +---------+ + + + | ALT (SGPT) | 107 (H) | 13 - 48 U/L | [facility] | | | | | | DEPARTMENT | | | | | | OF | | | | | | PATHOLOGY | | + +---------+ + + + | ANION GAP | 6 | 4 - 11 mmol/L | [facility] | | | | | | DEPARTMENT | | | | | | OF | | | | | | PATHOLOGY | | + +---------+ + + + | ANION | 10 | 4 - 11 mmol/L | [facility] | | | GAP(ALB | | | DEPARTMENT | | | CORRECTED) | | | OF | | | | | | PATHOLOGY | | + +---------+ + + + + + | Specimen | + + | Blood - Blood | + + + + + + + | Performing | Address | City/State/Zipcode | Phone Number | | Organization | | | | + + + + + | [facility] DEPARTMENT [facility] | [address] | [place], [place] [address] | | | PATHOLOGY | [address] | | | + + + + + CBC ONLY (08/02/2011 12:06 AM PST) + + + + + + | Component | Value | Ref Range | Performed | Pathologist | | | | | At | Signature | + + + + + + | WHITE CELL | Not Recd | 4.4 - 11.0 K/cu | [facility] | | | COUNT | | mm | DEPARTMENT | | | | | | OF | | | | | | PATHOLOGY | | + + + + + + | RED CELL | Not Recd | 4.50 - 5.90 | [facility] | | | COUNT | | M/cu mm | DEPARTMENT | | | | | | OF | | | | | | PATHOLOGY | | + + + + + + | HEMOGLOBIN | Not Recd | 13.5 - 17.5 | [facility] | | | | | g/dL | DEPARTMENT | | | | | | OF | | | | | | PATHOLOGY | | + + + + + + | HEMATOCRIT | Not Recd | 41.0 - 53.0 % | [facility] | | | | | | DEPARTMENT | | | | | | OF | | | | | | PATHOLOGY | | + + + + + + | MCV | Not Recd | 80.0 - 96.0 fL | [facility] | | | | | | DEPARTMENT | | | | | | OF | | | | | | PATHOLOGY | | + + + + + + | MCHC | Not Recd | 33.4 - 35.5 | [facility] | | | | | g/dL | DEPARTMENT | | | | | | OF | | | | | | PATHOLOGY | | + + + + + + | RDW | Not Recd | 11.5 - 15.0 % | [facility] | | | | | | DEPARTMENT | | | | | | OF | | | | | | PATHOLOGY | | + + + + + + | PLATELET | Not Recd | 150 - 400 K/cu | [facility] [...] | + + + + + | [facility] DEPARTMENT OF | [address] | [place] [address] | | | PATHOLOGY | [address] | | | + + + + + TROPONIN I, PLASMA (08/02/2011 12:05 AM PST) + + + + + + | Component | Value | Ref Range | Performed | Pathologist | | | | | At | Signature | + + + + + + | TROPONIN I | Combined. | <0.50 ng/mL | [facility] | | | | | [...] | [facility] DE[facility]MENT [facility] | [address] | [place] [address] | | | PATHOLOGY | [address] | | | + + + + + CBC ONLY (08/02/2011 12:05 AM PST) + + + + + + | Component | Value | Ref Range | Performed | Pathologist | | | | | At | Signature | + + + + + + | WHITE CELL | 6.6 | 4.4 - 11.0 K/cu | [facility] | | | COUNT | | mm | DEPARTMENT | | | | | | OF | | | | | | PATHOLOGY | | + + + + + + | RED CELL | 2.60 (L) | 4.50 - 5.90 | [facility] | | | COUNT | | M/cu mm | DEPARTMENT | | | | | | OF | | | | | | PATHOLOGY | | + + + + + + | HEMOGLOBIN | 8.7 (L) | 13.5 - 17.5 | [facility] | | | | | g/dL | DEPARTMENT | | | | | | OF | | | | | | PATHOLOGY | | + + + + + + | HEMATOCRIT | 25.1 (L) | 41.0 - 53.0 % | [facility] | | | | | | DEPARTMENT | | | | | | OF | | | | | | PATHOLOGY | | + + + + + + | MCV | 96.8 (H) | 80.0 - 96.0 fL | [facility] | | | | | | DEPARTMENT | | | | | | OF | | | | | | PATHOLOGY | | + + + + + + | MCHC | 34.5 | 33.4 - 35.5 | [facility] | | | | | g/dL | DEPARTMENT | | | | | | OF | | | | | | PATHOLOGY | | + + + + + + | RDW | 13.6 | 11.5 - 15.0 % | [facility] | | | | | | DEPARTMENT | | | | | | OF | | | | | | PATHOLOGY | | + + + + + + | PLATELET | 159 | 150 - 400 K/cu | [facility] [...] | + + + + + | [facility] | [address] | [place] [address] | | | PATHOLOGY | [address] | | | + + + + + BASIC METABOLIC SET (NA, K, CL, TCO2, BUN, CR, GLU, CA) (08/02/2011 12:05 AM PST) + +---------+ + + + | Component | Value | Ref Range | Performed | Pathologist | | | | | At | Signature | + +---------+ + + + | GLUCOSE, | Dup req | 60 - 99 mg/dL | [facility] | | | PLASMA | | | DEPARTMENT | | | (LAB) | | | OF | | | | | | PATHOLOGY | | + +---------+ + + + | BUN, PLASMA | Dup req | 6 - 20 mg/dL | [facility] | | | (LAB) | | | DEPARTMENT | | | | | | OF | | | | | | PATHOLOGY | | + +---------+ + + + | CREATININE | Dup req | 0.70 - 1.30 | [facility] | | | PLASMA | | mg/dL | DEPARTMENT | | | (LAB) | | | OF | | | | | | PATHOLOGY | | + +---------+ + + + | SODIUM, | Dup req | 134 - 143 | [facility] | | | PLASMA | | mmol/L | DEPARTMENT | | | (LAB) | | | OF | | | | | | PATHOLOGY | | + +---------+ + + + | POTASSIUM, | Dup req | 3.4 - 5.0 | [facility] | | | PLASMA | | mmol/L | DEPARTMENT | | | (LAB) | | | OF | | | | | | PATHOLOGY | | + +---------+ + + + | CHLORIDE, | Dup req | 97 - 108 mmol/L | [facility] | | | PLASMA | | | DEPARTMENT | | | (LAB) | | | OF | | | | | | PATHOLOGY | | + +---------+ + + + | TOTAL CO2, | Dup req | 22 - 29 mmol/L | [facility] | | | PLASMA | | | DEPARTMENT | | | (LAB) | | | OF | | | | | | PATHOLOGY | | + +---------+ + + + | CALCIUM, | Dup req | 8.6 - 10.2 | [facility] | | | PLASMA | | mg/dL | DEPARTMENT | | | (LAB) | | | OF | | | | | | PATHOLOGY | | + +---------+ + + + | POTASSIUM | Dup req | | [facility] | | | CMNT | | | DEPARTMENT | | | | | | OF | | | | | | PATHOLOGY | | + +---------+ + + + + + | Specimen | + + | Blood - Blood | + + + + + + + | Performing | Address | City/State/Zipcode | Phone Number | | Organization | | | | + + + + + | [facility] | [address] | [place] [address] | | | PATHOLOGY | [address] | | | + + + + + 12 LEAD ECG (08/01/2011 11:06 PM PST) + + + + + + | Component | Value | Ref Range | Performed | Pathologist | | | | | At | Signature | + + + + + + | VENTRICULAR | 69 | BPM | [facility] | | | RATE | | | OF | | | | | | CARDIOLOGY | | + + + + + + | ATRIAL RATE | 69 | BPM | [facility] | | | | | | OF | | | | | | CARDIOLOGY | | + + + + + + | P-R | 184 | ms | [facility] | | | INTERVAL | | | OF | | | | | | CARDIOLOGY | | + + + + + + | QRS | 96 | ms | [facility] | | | DURATION | | | OF | | | | | | CARDIOLOGY | | + + + + + + | QT | 402 | ms | [facility] | | | | | | OF | | | | | | CARDIOLOGY | | + + + + + + | QTC | 430 | ms | [facility] | | | | | | OF | | | | | | CARDIOLOGY | | + + + + + + | P AXIS | 70 | degrees | [facility] | | | | | | OF | | | | | | CARDIOLOGY | | + + + + + + | R AXIS | 62 | degrees | [facility] | | | | | | OF | | | | | | CARDIOLOGY | | + + + + + + | T AXIS | 44 | degrees | [facility] | | | | | | OF | | | | | | CARDIOLOGY | | + + + + + + | EKG | Normal sinus | | [facility] | | | DIAGNOSIS | rhythmNormal | | OF | | | | ECGConfirmed by | | CARDIOLOGY | | | | FRANCISCO MCCALLUM | | | | | | ([id number]) on 08/03/2011 | | | | | | 4:50:40 PM | | | | + + + + + + + + | Specimen | + + | | + + + + + | Narrative | Performed At | + + + | Please click | [facility] OF | | on view image for the detailed interpretation from [employer] results. | CARDIOLOGY | + + + + + + + + | Performing | Address | City/State/Zipcode | Phone Number | | Organization | | | | + + + + + | [facility] DE[facility] | [address] | [place], [place] | | | CARDIOLOGY | [address] | [address] | | + + + + + CARCINOEMBRYONIC AG, SERUM (08/01/2011 6:33 PM PST) + + + + + + | Component | Value | Ref Range | Performed | Pathologist | | | | | At | Signature | + + + + + + | CEA-CARCINO | 2.3Comment: INTERPRETIVE | <3.1 ng/mL | [facility] | | | EMBRYONIC | INFORMATION: | | REG UNIV | | | AG, SERUM | Carcinoembryonic | | PTH - INTFC | | | | Antigen:The Meghna | [...] by | | | | | | [employer], | | | | | | | | | | | | [address] | | | | | | [address] | | | | | | [address] | | | | | | | | | | | | [email or web address], | | | | | | Rebeca [...] + + | [facility] | [address] | [place], [place] | | | UNIV PTH - [facility] | | [address] | | + + + + + LACTIC ACID, PLASMA (08/01/2011 6:33 PM PST) + + + + + + | Component | Value | Ref Range | Performed | Pathologist | | | | | At | Signature | + + + + + + | LACTIC ACID | 0.8Comment: Reference | mmol/L | [facility] | | | | Ranges: Venous blood: | | DEPARTMENT | | | | 0.5-2.2 mmol/L Arterial | | OF | | | | blood: 0.5-1.6 mmol/L | | PATHOLOGY | | | | Arterial blood: 0.5-1.6 mmol/L | | | | + + + + + + + + | Specimen | + + | Blood - Blood | + + + + + + + | Performing | Address | City/State/Zipcode | Phone Number | | Organization | | | | + + + + + | [facility] DEPARTMENT OF | [address] | [place] [address] | | | PATHOLOGY | [address] | | | + + + + + PSA, FREE AND TOTAL,SERUM (08/01/2011 6:33 PM PST) + +--------+ + + + | Component | Value | Ref Range | Performed | Pathologist | | | | | At | Signature | + +--------+ + + + | FREE PSA | 0.12 | ng/mL | [facility] | | | | | | [facility]AL | | | | | | LABORATORY | | + +--------+ + + + | TOTAL PSA | 0.65 | <4.51 ng/mL | [facility] | | | | | [facility] | | | | | | LABORATORY | | + +--------+ + + + | % FREE PSA | 19 (L) | >25 % | [facility] | | | | | [facility] | | | | | | LABORATORY | | + +--------+ + + + + + | Specimen | + + | Blood - Blood | + + + + + | Narrative | Performed At | + + + | % Probability of Prostate Cancer for Patients | [facility] | | with Total PSA between 4.1 and 10.0 ng/mL | REGIONAL | | FREE PSA (%) PROBABILITY | LABORATORY | | | | | 0.0 - 10 | | | 56 10.1 - 15 | | | 28 15.1 - 20 | | | 20 20.1 - | | | 25 16 | | | > 25 8 | | | Catie et al: ANGEL [id number] (1998) | | | AGE-ADJUSTED TOTAL PSA NORMAL VALUES | | | AGE (YEARS) NORMAL VALUE (ng/mL) | | | 49 or Less Less than or equal to 2.5 | | | 50-59 Less than or | | | equal to 3.5 60-69 | | | Less than or equal to 4.5 70 or Greater | | | Less than or equal to 6.5 The | | | determination that this age-adjusted PSA is either | | | normal or abnormal is valid only if this patient has | | | never been treated for prostate cancer and is not on any | | | medication that would change the PSA value. Clinical | | | correlation is strongly recommended. This PSA | | | assay was performed using a chemiluminescent | | | immunoassay method. [facility]) | | | [facility] [place] [address] | | | [place] [address] | | + + + + + + + + | Performing | Address | City/State/Zipcode | Phone Number | | Organization | | | | + + + + + | [facility] | [address] | [place] [address] | | | LABORATORY | | | | + + + + + X-RAY PORTABLE CHEST 1 VIEW (08/01/2011 6:30 PM PST) + + + + + + | Component | Value | Ref Range | Performed | Pathologist | | | | | At | Signature | + + + + + + | X-RAY | STUDY: TX CHEST 1 VIEW | | | | | PORTABLE | 08/01/11 18:30:00 | | | | | CHEST 1 | COMPARISON: Outside | | | | | VIEW | chest radiographs dated | | | | | | 07/30/11. HISTORY: | | | | | | History of rectal | | | | | | cancer. Bacteremia and | | | | | | chest pain. FINDINGS: | | | | | | The cardiomediastinal | | | | | | silhouette is within | | | | | | normal limits. There | | | | | | aremildly low lung | | | | | | volumes with mild | | | | | | bibasilar subsegmental | | | | | | atelectasis. The lungs | | | | | | are otherwise clear | | | | | | without focal | | | | | | consolidation. There | | | | | | isno hydrostatic edema, | | | | | | pneumothorax or pleural | | | | | | effusion. Marked | | | | | | rightglenohumeral | | | | | | degenerative changes are | | | | | | noted. IMPRESSION: | | | | | | Mildly low lung volumes | | | | | | with mild bibasilar | | | | | | subsegmental | | | | | | atelectasis. Attending | | | | | | Radiologists: Javon | | | | | | Danielle FernandezAuthor: | | | | | | Geraldo Moreau M.D. | | | | | | I have personally viewed | | | | | | this procedure/exam, | | | | | | reviewed this report,and | | | | | | made changes to it | | | | | | where appropriate. | | | | | | Final/Electronically | | | | | | signed / Javon Fernandez | | | | | | 08/02/2011 13:53 PM | | | | + + [...] | | | + +---------+ + + SONIA GARVIN ONLY (08/01/2011 5:54 PM PST) + + + + + [...] + + | GLUCOSE(UR) | Negative | Neg-Trace mg/dL | [facility] | | | | | | DEPARTMENT | | | | | | OF | | | | | | PATHOLOGY | | + + + + + + | BILIRUBIN | Negative | Negative | [facility] | | | | | | DEPARTMENT | | | | | | OF | | | | | | PATHOLOGY | | + + + + + + | KETONES | Negative | Negative mg/dL | [facility] | | | | | | DEPARTMENT | | | | | | OF | | | | | | PATHOLOGY | | + + + + + + | SPECIFIC | >=1.030 (A) | 1.005 - 1.030 | [facility] | | | GRAVITY | | | DEPARTMENT | | | | | | OF | | | | | | PATHOLOGY | | + + + + + + | BLOOD | Trace (A) | Negative | [facility] | | | | | | DEPARTMENT | | | | | | OF | | | | | | PATHOLOGY | | + + + + + + | PH(UR) | 6.0 | 5.0 - 8.0 | [facility] | | | | | | DEPARTMENT | | | | | | OF | | | | | | PATHOLOGY | | + + + + + + | PROTEIN(LAB | 100 (A) | Neg-Trace mg/dL | [facility] | | | ) [...] | + + + + + | [facility] | [address] | [place] [address] | | | PATHOLOGY | [address] | | | + + + + + URINE, MICROSCOPIC EXAM (08/01/2011 5:54 PM PST) + +---------+ + + + | Component | Value | Ref Range | Performed | Pathologist | | | | | At | Signature | + +---------+ + + + | SQUAMOUS | None | /hpf | [facility] | | | EPITHELIAL | | | DEPARTMENT | | | | | | OF | | | | | | PATHOLOGY | | + +---------+ + + + | NON-SQUAMOU | None | /hpf | [facility] | | | S EPITH | | | DEPARTMENT | | | | | | OF | | | | | | PATHOLOGY | | + +---------+ + + + | RED CELLS | 2-3 | 0 - 3 /hpf | [facility] | | | | | | DEPARTMENT | | | | | | OF | | | | | | PATHOLOGY | | + +---------+ + + + | WHITE CELLS | 1-3 | 0 - 5 /hpf | [facility] | | | | | | DEPARTMENT | | | | | | OF | | | | | | PATHOLOGY | | + +---------+ + + + | BACTERIA | None | /hpf | [facility] | | | | | | DEPARTMENT | | | | | | OF | | | | | | PATHOLOGY | | + +---------+ + + + | MUCOUS | Few (A) | /hpf | [facility] | | | | | | DEPARTMENT | | | | | | OF | | | | | | PATHOLOGY | | + +---------+ + + + | HYALINE | None | 0 - 1 /lpf | [facility] | | | CASTS | | | DEPARTMENT | | | | | | OF | | | | | | PATHOLOGY | | + +---------+ + + + | GRANULAR | 20-30 | /lpf | [facility] | | | CASTS | | | DEPARTMENT | | | | | | OF | | | | | | PATHOLOGY | | + +---------+ + + + | CELLULAR | None | /lpf | [facility] | | | CASTS | | | DEPARTMENT | | | | | | OF | | | | | | PATHOLOGY | | + +---------+ + + + | AMORPHOUS | Few (A) | /hpf | [facility] | | | CRYSTALS | | | DEPARTMENT | | | | | | OF | | | | | | PATHOLOGY | | + +---------+ + + + | CALCIUM | None | /hpf | [facility] | | | OXALATE | | | DEPARTMENT | | | GYPSY | | | OF | | | | | | PATHOLOGY | | + +---------+ + + + | URIC ACID | None | /hpf | [facility] | | | CRYSTALS | | | DEPARTMENT | | | | | | OF | | | | | | PATHOLOGY | | + +---------+ + + + | TRIPLE P04 | None | /hpf | [facility] | | | CRYSTALS | | | DEPARTMENT | | | | | | OF | | | | | | PATHOLOGY | | + +---------+ + + + | YEAST (LAB) | None | /hpf | [facility] | | | | | | DEPARTMENT | | | | | | OF | | | | | | PATHOLOGY | | + +---------+ + + + | TRICHOMONAS | None | /hpf | [facility] | | | | | | DEPARTMENT | | | | | | OF | | | | | | PATHOLOGY | | + +---------+ + + + + + | Specimen | + + | Urine - Urine | + + + + + + + | Performing | Address | City/State/Zipcode | Phone Number | | Organization | | | | + + + + + | [facility] | [address] | [place] [address] | | | PATHOLOGY | [address] | | | + + + + + URINE SCREEN FOR CULTURE (08/01/2011 5:54 PM PST) + + + + + + | Component | Value | Ref Range | Performed | Pathologist | | | | | At | Signature | + + + + + + | CULT, URINE | Negative for Nitrite and | | [facility] | | | SCREEN | Leukocyte | | DEPARTMENT | | | | Esterase.Culture not | | OF | | | | indicated. | | PATHOLOGY | | + + + + + + + + | Specimen | + + | Urine - Urine | + + + + + + + | Performing | Address | City/State/Zipcode | Phone Number | | Organization | | | | + + + + + | [facility] | [address] | [place] [address] | | | PATHOLOGY | [address] | | | + + + + + NOTIFICATION (08/01/2011 4:38 PM PST) + + + + + + | Component | Value | Ref Range | Performed | Pathologist | | | | | At | Signature | + + + + + + | TEST NAME | Blood Culture | | [facility] | | | | | | DEPARTMENT | | | | | | OF | | | | | | PATHOLOGY | | + + + + + + | SOURCE | Peripheral | | [facility] | | | | | | DEPARTMENT | | | | | | OF | | | | | | PATHOLOGY | | + + + + + + | RESULT | Gram (+) cocci in | | [facility] | | | CALLED | clustersAnaerobic growth | | DEPARTMENT | | | | | | OF | | | | | | PATHOLOGY | | + + + + + + | CALLED TO | Amy Mark @ 5K, 08/04/11 | | [facility] | | | | [address] | | DEPARTMENT | | | | | | OF | | | | | | PATHOLOGY | | + + + + + + + + | Specimen | + + | | + + + + + + + | Performing | Address | City/State/Zipcode | Phone Number | | Organization | | | | + + + + + | [facility] DEPARTMENT [facility] | [address] | [place] [address] | | | PATHOLOGY | [address] | | | + + + + + GGT, PLASMA (08/01/2011 4:38 PM PST) + +---------+ + + + | Component | Value | Ref Range | Performed | Pathologist | | | | | At | Signature | + +---------+ + + + | GAMMA | 203 (H) | 8 - 65 U/L | [facility] | | | GLUTAMYL | | | DEPARTMENT | | | TRANS | | | OF | | | | | | PATHOLOGY | | + +---------+ + + + + + | Specimen | + + | | + + + + + + + | Performing | Address | City/State/Zipcode | Phone Number | | Organization | | | | + + + + + | [facility] | [address] | [place] [address] | | | PATHOLOGY | [address] | | | + + + + + DIFFERENTIAL (08/01/2011 4:38 PM PST) + +---------+ + + + | Component | Value | Ref Range | Performed | Pathologist | | | | | At | Signature | + +---------+ + + + | NEUTROPHIL | 90 (H) | 50 - 70 % | [facility] | | | % | | | DEPARTMENT | | | | | | OF | | | | | | PATHOLOGY | | + +---------+ + + + | LYMPHOCYTE | 3 (L) | 18 - 42 % | [facility] | | | % | | | DEPARTMENT | | | | | | OF | | | | | | PATHOLOGY | | + +---------+ + + + | MONOCYTE % | 6 | 2 - 8 % | [facility] | | | | | | DEPARTMENT | | | | | | OF | | | | | | PATHOLOGY | | + +---------+ + + + | EOS % | 1 | 1 - 3 % | [facility] | | | | | | DEPARTMENT | | | | | | OF | | | | | | PATHOLOGY | | + +---------+ + + + | BASO % | 0 | <3 % | [facility] | | | | | | DEPARTMENT | | | | | | OF | | | | | | PATHOLOGY | | + +---------+ + + + | NEUTROPHIL | 6.2 | 1.8 - 7.7 K/cu | [facility] | | | # | | mm | DEPARTMENT | | | | | | OF | | | | | | PATHOLOGY | | + +---------+ + + + | LYMPHOCYTE | 0.2 (L) | 1.0 - 4.8 K/cu | [facility] | | | # | | mm | DEPARTMENT | | | | | | OF | | | | | | PATHOLOGY | | + +---------+ + + + | MONOCYTE # | 0.4 | <0.9 K/cu mm | [facility] | | | | | | DEPARTMENT | | | | | | OF | | | | | | PATHOLOGY | | + +---------+ + + + | EOS # | 0.1 | <0.6 K/cu mm | [facility] | | | | | | DEPARTMENT | | | | | | OF | | | | | | PATHOLOGY | | + +---------+ + + + | BASO # | 0.0 | <0.2 | [facility] | | | | | | DEPARTMENT | | | | | | OF | | | | | | PATHOLOGY | | + +---------+ + + + + + | Specimen | + + | | + + + + + + + | Performing | Address | City/State/Zipcode | Phone Number | | Organization | | | | + + + + + | [facility] DE[facility]MENT [facility] | [address] | [place] [address] | | | PATHOLOGY | [address] | | | + + + + + TROPONIN I, PLASMA (08/01/2011 4:38 PM PST) + +-------+ + + + | Component | Value | Ref Range | Performed | Pathologist | | | | | At | Signature | + +-------+ + + + | TROPONIN I | 0.06 | <0.50 ng/mL | [facility] | | | | | | DEPARTMENT | | | | | | OF | | | | | | PATHOLOGY | | + +-------+ + + + + + | Specimen | + + | Blood - Blood | + + + + + + + | Performing | Address | City/State/Zipcode | Phone Number | | Organization | | | | + + + + + | [facility] DEPARTMENT OF | [address] | [place] [address] | | | PATHOLOGY | [address] | | | + + + + + INR (08/01/2011 4:38 PM PST) + + + + + + | Component | Value | Ref Range | Performed | Pathologist | | | | | At | Signature | + + + + + + | INR | 1.07Comment: | 0.90 - 1.20 INR | [facility] | | | | INR Therapeutic ranges | | DEPARTMENT | | | | for full | | OF | | | | anticoagulation: | | PATHOLOGY | | | | INR for Venous | | | | | | Thromboembolism | | | | | | (2.0-3.0) | | | | | | INR INR for most | | | | | | patients with mech. | | | | | | valves (2.5-3.5) | | | | | | INR | | | | + + + + + + + + | Specimen | + + | Blood - Blood | + + + + + + + | Performing | Address | City/State/Zipcode | Phone Number | | Organization | | | | + + + + + | [facility] | [address] | [place] [address] | | | PATHOLOGY | [address] | | | + + + + + CULTURE, BLOOD BACTI & YEAST (08/01/2011 4:38 PM PST) + + + + + + | Component | Value | Ref Range | Performed | Pathologist | | | | | At | Signature | + + + + + + | SOURCE BODY | Peripheral Blood | | [facility] | | | SITE | | | [facility] | | | | | | LAB-MICRO | | + + + + + + | CULTURE | Blood Culture | | [facility] | | | RESULT | | | REG[facility]AL | | | | Source................: | | LAB-MICRO | | | | Peripheral Blood | | | | | | Gram Stain: Gram | | | | | | positive cocci in | | | | | | clusters | | | | | | Staphylococcus aureus | | | | | | | | | | | | | | | | | | Final ID Growth | | | | | | in Anaerobic Bottle | | | | | | | | | | | | S. aureus | | | | | | Cefazolin | | | | | | S | | | | | | Ciprofloxacin | | | | | | S Clindamycin | | | | | | S | | | | | | Erythromycin | | | | | | R Oxacillin | | | | | | S | | | | | | Tetracycline | | | | | | S Trimeth/Sulfa | | | | | | S | | | | | | Vancomycin | | | | | | S Penicillin | | | | | | R | | | | | | Rifampin | | | | | | S Final | | | | | | Report | | | | + + + + + + + + | Specimen | + + | Blood - Peripheral | + + + + + + + | Performing | Address | City/State/Zipcode | Phone Number | | Organization | | | | + + + + + | [facility] | [address] | [place] [address] | | | LAB-MICRO | | | | + + + + + CBC, WITH DIFFERENTIAL (08/01/2011 4:38 PM PST) + + + + + + | Component | Value | Ref Range | Performed | Pathologist | | | | | At | Signature | + + + + + + | WHITE CELL | 6.9 | 4.4 - 11.0 K/cu | [facility] | | | COUNT | | mm | DEPARTMENT | | | | | | OF | | | | | | PATHOLOGY | | + + + + + + | RED CELL | 2.76 (L) | 4.50 - 5.90 | [facility] | | | COUNT | | M/cu mm | DEPARTMENT | | | | | | OF | | | | | | PATHOLOGY | | + + + + + + | HEMOGLOBIN | 9.2 (L) | 13.5 - 17.5 | [facility] | | | | | g/dL | DEPARTMENT | | | | | | OF | | | | | | PATHOLOGY | | + + + + + + | HEMATOCRIT | 26.6 (L) | 41.0 - 53.0 % | [facility] | | | | | | DEPARTMENT | | | | | | OF | | | | | | PATHOLOGY | | + + + + + + | MCV | 96.4 (H) | 80.0 - 96.0 fL | [facility] | | | | | | DEPARTMENT | | | | | | OF | | | | | | PATHOLOGY | | + + + + + + | MCHC | 34.6 | 33.4 - 35.5 | [facility] | | | | | g/dL | DEPARTMENT | | | | | | OF | | | | | | PATHOLOGY | | + + + + + + | RDW | 13.8 | 11.5 - 15.0 % | [facility] | | | | | | DEPARTMENT | | | | | | OF | | | | | | PATHOLOGY | | + + + + + + | PLATELET | 163 | 150 - 400 K/cu | [facility] HOSPITAL | | | COUNT | | mm [...] | + + + + + | [facility] DEPARTMENT OF | [address] | [place] [address] | | | PATHOLOGY | [address] | | | + + + + + MAGNESIUM, PLASMA (08/01/2011 4:38 PM PST) + +-------+ + + + | Component | Value | Ref Range | Performed | Pathologist | | | | | At | Signature | + +-------+ + + + | MAGNESIUM,P | 2.1 | 1.8 - 2.5 mg/dL | [facility] | | | LASMA | | | DEPARTMENT | | | | | | OF | | | | | | PATHOLOGY | | + +-------+ + + + + + | Specimen | + + | Blood - Blood | + + + + + + + | Performing | Address | City/State/Zipcode | Phone Number | | Organization | | | | + + + + + | [facility]MENT [facility] | [address] | [place] [address] | | | PATHOLOGY | [address] | | | + + + + + COMPLETE METABOLIC SET (NA,K,CL,CO2,BUN,CREAT,GLUC,CA,AST,ALT,BILI TOTAL,ALK PHOS,ALB,PROT TOTAL) (08/01/2011 4:38 PM PST) + +---------+ + + + | Component | Value | Ref Range | Performed | Pathologist | | | | | At | Signature | + +---------+ + + + | GLUCOSE, | 127 (H) | 60 - 99 mg/dL | [facility] | | | PLASMA | | | DEPARTMENT | | | (LAB) | | | OF | | | | | | PATHOLOGY | | + +---------+ + + + | BUN, PLASMA | 15 | 6 - 20 mg/dL | [facility] | | | (LAB) | | | DEPARTMENT | | | | | | OF | | | | | | PATHOLOGY | | + +---------+ + + + | CREATININE | 1.10 | 0.70 - 1.30 | [facility] | | | PLASMA | | mg/dL | DEPARTMENT | | | (LAB) | | | OF | | | | | | PATHOLOGY | | + +---------+ + + + | TOTAL | 6.1 | 6.1 - 7.9 g/dL | [facility] | | | PROTEIN, | | | DEPARTMENT | | | PLASMA | | | OF | | | (LAB) | | | PATHOLOGY | | + +---------+ + + + | ALBUMIN, | 2.4 (L) | 3.5 - 4.7 g/dL | [facility] | | | PLASMA | | | DEPARTMENT | | | (LAB) | | | OF | | | | | | PATHOLOGY | | + +---------+ + + + | CALCIUM, | 8.3 (L) | 8.6 - 10.2 | [facility] | | | PLASMA | | mg/dL | DEPARTMENT | | | (LAB) | | | OF | | | | | | PATHOLOGY | | + +---------+ + + + | BILIRUBIN | 1.2 | 0.3 - 1.2 mg/dL | [facility] | | | TOTAL | | | DEPARTMENT | | | | | | OF | | | | | | PATHOLOGY | | + +---------+ + + + | ALK PHOS | 284 (H) | 56 - 119 U/L | [facility] | | | | | | DEPARTMENT | | | | | | OF | | | | | | PATHOLOGY | | + +---------+ + + + | AST(SGOT) | 43 (H) | 15 - 41 U/L | [facility] | | | | | | DEPARTMENT | | | | | | OF | | | | | | PATHOLOGY | | + +---------+ + + + | SODIUM, | 132 (L) | 134 - 143 | [facility] | | | PLASMA | | mmol/L | DEPARTMENT | | | (LAB) | | | OF | | | | | | PATHOLOGY | | + +---------+ + + + | POTASSIUM, | 3.9 | 3.4 - 5.0 | [facility] | | | PLASMA | | mmol/L | DEPARTMENT | | | (LAB) | | | OF | | | | | | PATHOLOGY | | + +---------+ + + + | CHLORIDE, | 100 | 97 - 108 mmol/L | [facility] | | | PLASMA | | | DEPARTMENT | | | (LAB) | | | OF | | | | | | PATHOLOGY | | + +---------+ + + + | TOTAL CO2, | 22 | 22 - 29 mmol/L | [facility] | | | PLASMA | | | DEPARTMENT | | | (LAB) | | | OF | | | | | | PATHOLOGY | | + +---------+ + + + | ALT (SGPT) | 111 (H) | 13 - 48 U/L | [facility] | | | | | | DEPARTMENT | | | | | | OF | | | | | | PATHOLOGY | | + +---------+ + + + | ANION GAP | 10 | 4 - 11 mmol/L | [facility] | | | | | | DEPARTMENT | | | | | | OF | | | | | | PATHOLOGY | | + +---------+ + + + | ANION | 14 (H) | 4 - 11 mmol/L | [facility] | | | GAP(ALB | | | DEPARTMENT | | | CORRECTED) | | | OF | | | | | | PATHOLOGY | | + +---------+ + + + + + | Specimen | + + | Blood - Blood | + + + + + + + | Performing | Address | City/State/Zipcode | Phone Number | | Organization | | | | + + + + + | [facility] | [address] | [place] [address] | | | PATHOLOGY | [address] | | | + + + + + 12 LEAD ECG (08/01/2011 3:17 PM PST) + + + + + + | Component | Value | Ref Range | Performed | Pathologist | | | | | At | Signature | + + + + + + | VENTRICULAR | 63 | BPM | [facility] | | | RATE | | | OF | | | | | | CARDIOLOGY | | + + + + + + | ATRIAL RATE | 63 | BPM | [facility] | | | | | | OF | | | | | | CARDIOLOGY | | + + + + + + | P-R | 188 | ms | [facility] | | | INTERVAL | | | OF | | | | | | CARDIOLOGY | | + + + + + + | QRS | 98 | ms | [facility] | | | DURATION | | | OF | | | | | | CARDIOLOGY | | + + + + + + | QT | 418 | ms | [facility] | | | | | | OF | | | | | | CARDIOLOGY | | + + + + + + | QTC | 427 | ms | [facility] | | | | | | OF | | | | | | CARDIOLOGY | | + + + + + + | P AXIS | 57 | degrees | [facility] | | | | | | OF | | | | | | CARDIOLOGY | | + + + + + + | R AXIS | 57 | degrees | [facility] | | | | | | OF | | | | | | CARDIOLOGY | | + + + + + + | T AXIS | 26 | degrees | [facility] | | | | | | OF | | | | | | CARDIOLOGY | | + + + + + + | EKG | Normal sinus | | [facility] | | | DIAGNOSIS | rhythmNormal | | OF | | | | ECGConfirmed by | | CARDIOLOGY | | | | FRANCISCO MCCALLUM | | | | | | ([id number]) on 08/03/2011 | | | | | | 4:06:56 PM | | | | + + + + + + + + | Specimen | + + | | + + + + + | Narrative | Performed At | + + + | Please click | [facility] OF | | on view image for the detailed interpretation from [employer] results. | CARDIOLOGY | + + + + + + + + | Performing | Address | City/State/Zipcode | Phone Number | | Organization | | | | + + + + + | [facility] | [address] | [place], [place] | | | CARDIOLOGY | [address] | [phone] | | + + + + + ORDERS OTHER (08/01/2011 12:00 AM PST) + + + | Narrative | Performed At | + + + | | | + + + + + | Transcriptions | + + | Other, Faculty - 09/21/2011 3:55 PM PST | + + TRANSTHORACIC ECHOCARDIOGRAM, ADULT (08/01/2011 12:00 AM PST) + + + | Narrative | Performed At | + + + | | | + + + + + | Transcriptions | + + | Cy Toribio - 08/02/2011 12:27 PM PST | + + documented in this encounter Visit Diagnoses + + | Diagnosis | + + | MSSA (methicillin susceptible Staphylococcus aureus) septicemia (HCC) - Primary | | Methicillin susceptible staphylococcus aureus septicemia | + + | Bacteremia | + + | Rectal cancer (HCC) Malignant neoplasm of rectum | + + | Malignant neoplasm of rectum (HCC) Malignant neoplasm of rectum | + + | Hyperlipidemia Other and unspecified hyperlipidemia | + + | Left hip pain Pain in joint, pelvic region and thigh | + + | Fracture of sacrum (HCC) Closed fracture of sacrum and coccyx without mention of | | spinal cord injury | + + | Transaminitis Nonspecific elevation of levels of transaminase or lactic acid | | dehydrogenase (LDH) | + + | JERRICA (acute kidney injury) (HCC) Acute kidney failure, unspecified | + + | HTN (hypertension) Unspecified essential hypertension | + + | Chest pain Chest pain, unspecified | + + | Anemia Anemia, unspecified | + + documented in this encounter Administered Medications + +--------+ +-------+------+------+ | Medication Order | MAR | Action | Dose | Rate | Site | | | Action | Date | | | | + +--------+ +-------+------+------+ | amLODIPine (aka NORVASC) tablet | Given | 08/09/19 | 10 mg | | | | 10 mg 10 mg, oral, DAILY, First | | 12 8:42 | | | | | dose (after last modification) | | AM PST | | | | | on 08/06/11 at 0900, Until | | | | | | | Discontinued | | | | | | + +--------+ +-------+------+------+ +-------+ +-------+---+---+ | Given | 08/08/19 | 10 mg | | | | | 12 9:05 | | | | | | AM PST | | | | +-------+ +-------+---+---+ | Given | 08/07/19 | 10 mg | | | | | 12 11:26 | | | | | | AM PST | | | | +-------+ +-------+---+---+ +---+---+ | | | +---+---+ + +-------+ +------+---+---+ | amLODIPine (aka NORVASC) tablet | Given | 08/05/19 | 5 mg | | | | 5 mg 5 mg, oral, DAILY, First | | 12 9:08 | | | | | dose on 08/04/11 at 1200, | | AM PST | | | | | Until Discontinued | | | | | | + +-------+ +------+---+---+ +-------+ +------+---+---+ | Given | 08/04/19 | 5 mg | | | | | 12 12:38 | | | | | | PM PST | | | | +-------+ +------+---+---+ +---+---+ | | | +---+---+ + +-------+ +-------+---+---+ | aspirin EC tablet 81 mg 81 mg, | Given | 08/09/19 | 81 mg | | | | oral, DAILY, First dose on Sat | | 12 8:41 | | | | | 08/02/11 at 1530, Until | | AM PST | | | | | Discontinued | | | | | | + +-------+ +-------+---+---+ +-------+ +-------+---+---+ | Given | 08/08/19 | 81 mg | | | | | 12 9:05 | | | | | | AM PST | | | | +-------+ +-------+---+---+ | Given | 08/07/19 | 81 mg | | | | | 12 11:26 | | | | | | AM PST | | | | +-------+ +-------+---+---+ +---+---+ | | | +---+---+ + +-------+ +-------+---+---+ | atorvastatin (aka LIPITOR) | Given | 08/02/19 | 80 mg | | | | tablet 80 mg 80 mg, oral, DAILY, | | 12 8:20 | | | | | First dose on Sat08/02/11 at | | AM PST | | | | | 0900, Until Discontinued | | | | | | + +-------+ +-------+---+---+ +---+---+ | | | +---+---+ + +---------+ +-----+--------+---+ | cefTRIAXone (aka ROCEPHIN) IV 2 | New Bag | 08/09/19 | 2 g | mL/hr | | | g 2 g, intravenous, EVERY 24 | | 12 10:33 | | | | | HOURS, First dose on Sat08/08/11 | | AM PST | | | | | at 1600, Until Discontinued | | | | | | + +---------+ +-----+--------+---+ +---------+ +-----+--------+---+ | New Bag | 08/08/19 | 2 g | mL/hr | | | | 12 5:21 | | | | | | PM PST | | | | +---------+ +-----+--------+---+ +---+---+ | | | +---+---+ + +-------+ +--------+---+---+ | cyclobenzaprine (aka FLEXERIL) | Given | 08/03/19 | 2.5 mg | | | | oral dose 2.5 mg 2.5 mg, oral, | | 12 7:45 | | | | | THREE TIMES DAILY NEEDED, | | PM PST | | | | | Starting 08/03/11 at 1147, | | | | | | | Until 08/04/11 at 0452, muscle | | | | | | | spasms | | | | | | + +-------+ +--------+---+---+ +-------+ +--------+---+---+ | Given | 08/03/19 | 2.5 mg | | | | | 12 5:33 | | | | | | PM PST | | | | +-------+ +--------+---+---+ | Given | 08/03/19 | 2.5 mg | | | | | 12 12:53 | | | | | | PM PST | | | | +-------+ +--------+---+---+ +---+---+ | | | +---+---+ + +-------+ +--------+---+---+ | cyclobenzaprine (aka FLEXERIL) | Given | 08/04/19 | 2.5 mg | | | | oral dose 2.5 mg 2.5 mg, oral, | | 12 12:45 | | | | | ONCE, 1 dose, 08/04/11 at 0100 | | AM PST | | | | + +-------+ +--------+---+---+ +---+---+ | | | +---+---+ + +-------+ +------+---+---+ | cyclobenzaprine (aka FLEXERIL) | Given | 08/02/19 | 5 mg | | | | tablet 5 mg 5 mg, oral, THREE | | 12 7:00 | | | | | TIMES DAILY NEEDED, Starting | | PM PST | | | | | Josefa 08/02/11 at 1513, Until Fri | | | | | | | 08/03/11 at 1147, muscle spasms | | | | | | + +-------+ +------+---+---+ +---+---+ | | | +---+---+ + +-------+ +------+---+---+ | cyclobenzaprine (aka FLEXERIL) | Given | 08/08/19 | 5 mg | | | | tablet 5 mg 5 mg, oral, THREE | | 12 8:57 | | | | | TIMES DAILY NEEDED, Starting | | PM PST | | | | | 08/04/11 at 0451, Until Josefa | | | | | | | 08/09/11 at 2037, muscle spasms | | | | | | + +-------+ +------+---+---+ +-------+ +------+---+---+ | Given | 08/07/19 | 5 mg | | | | | 12 5:11 | | | | | | AM PST | | | | +-------+ +------+---+---+ | Given | 08/06/19 | 5 mg | | | | | 12 9:58 | | | | | | PM PST | | | | +-------+ +------+---+---+ +---+---+ | | | +---+---+ + +-------+ +-------+---+---+ | diphenhydrAMINE (aka BENADRYL) | Given | 08/02/19 | 25 mg | | | | capsule 25 mg 25 mg, oral, EVERY | | 12 2:00 | | | | | 6 HOURS NEEDED, Starting Josefa | | PM PST | | | | | 08/02/11 at 1307, Until Josefa | | | | | | | 08/09/11 at 7, itching | | | | | | + +-------+ +-------+---+---+ +---+---+ | | | +---+---+ + +---------+ +--------+--------+---+ | fentaNYL citrate (PF) (aka | New Bag | 08/07/19 | 75 mcg | mL/hr | | | SUBLIMAZE) injection 25-200 mcg | | 12 8:46 | | | | | 25-200 mcg, intravenous, HSD PRN, | | AM PST | | | | | Starting Sat08/07/11 at 0828, | | | | | | | Until Sat08/07/11 at 1032, | | | | | | | moderate pain, | | | | | | | sedation/analgesia for CRISTIAN | | | | | | + +---------+ +--------+--------+---+ + +---+ | | | + +---+ | fentaNYL citrate (PF) (aka | | | SUBLIMAZE) injection 1 dose, | | | Starting Sat08/07/11 at 0804, | | | Until Sat08/07/11 at 0846 | | + +---+ | | | + +---+ + +-------+ +--------+---+---+ | ferrous sulfate tablet 325 mg | Given | 08/09/19 | 325 mg | | | | 325 mg, oral, TWICE DAILY, First | | 12 8:42 | | | | | dose on Sat08/06/11 at 1200, | | AM PST | | | | | Until Discontinued | | | | | | + +-------+ +--------+---+---+ +-------+ +--------+---+---+ | Given | 08/08/19 | 325 mg | | | | | 12 8:57 | | | | | | PM PST | | | | +-------+ +--------+---+---+ | Given | 08/08/19 | 325 mg | | | | | 12 9:05 | | | | | | AM PST | | | | +-------+ +--------+---+---+ +---+---+ | | | +---+---+ + +-------+ +--------+---+---+ | guaiFENesin LA (aka MUCINEX) | Given | 08/09/19 | 600 mg | | | | tablet 600 mg 600 mg, oral, | | 12 8:41 | | | | | TWICE DAILY, First dose on Sat | | AM PST | | | | | 08/04/11 at 1400, Until | | | | | | | Discontinued | | | | | | + +-------+ +--------+---+---+ +-------+ +--------+---+---+ | Given | 08/08/19 | 600 mg | | | | | 12 8:57 | | | | | | PM PST | | | | +-------+ +--------+---+---+ | Given | 08/08/19 | 600 mg | | | | | 12 9:05 | | | | | | AM PST | | | | +-------+ +--------+---+---+ +---+---+ | | | +---+---+ + +-------+ +--------+---+---+ | heparin injection 5,000 Units | Given | 08/08/19 | 5,000 | | | | 5,000 Units, subcutaneous, EVERY | | 12 8:59 | Units | | | | 12 HOURS, First dose on Sat | | PM PST | | | | | 08/01/11 at 2100, Until | | | | | | | Discontinued | | | | | | + +-------+ +--------+---+---+ +-------+ +--------+---+---+ | Given | 08/08/19 | 5,000 | | | | | 12 9:05 | Units | | | | | AM PST | | | | +-------+ +--------+---+---+ | Given | 08/07/19 | 5,000 | | | | | 12 9:38 | Units | | | | | PM PST | | | | +-------+ +--------+---+---+ +---+---+ | | | +---+---+ + +---------+ +-------+--------+---+ | hydrALAZINE (aka APRESOLINE) | New Bag | 08/02/19 | 10 mg | mL/hr | | | injection 10 mg 10 mg, | | 12 1:15 | | | | | intravenous, EVERY 4 HOURS | | PM PST | | | | | NEEDED, Starting Sat08/01/11 at | | | | | | | 1630, Until Sat08/06/11 at 0805, | | | | | | | SBP >160 | | | | | | + +---------+ +-------+--------+---+ +---------+ +-------+--------+---+ | New Bag | 08/01/19 | 10 mg | mL/hr | | | | 12 5:08 | | | | | | PM PST | | | | +---------+ +-------+--------+---+ +---+---+ | | | +---+---+ + +-------+ +-------+---+---+ | hydrALAZINE (aka APRESOLINE) | Given | 08/09/19 | 25 mg | | | | tablet 25 mg 25 mg, oral, THREE | | 12 8:41 | | | | | TIMES DAILY, First dose on Mon | | AM PST | | | | | 08/06/11 at 1600, Until | | | | | | | Discontinued | | | | | | + +-------+ +-------+---+---+ +-------+ +-------+---+---+ | Given | 08/08/19 | 25 mg | | | | | 12 11:17 | | | | | | PM PST | | | | +-------+ +-------+---+---+ | Given | 08/08/19 | 25 mg | | | | | 12 4:01 | | | | | | PM PST | | | | +-------+ +-------+---+---+ +---+---+ | | | +---+---+ + +---------+ +--------+--------+---+ | HYDROmorphone (aka DILAUDID) | New Bag | 08/02/19 | 0.2 mg | mL/hr | | | injection 0.2-0.5 mg 0.2-0.5 mg, | | 12 2:18 | | | | | intravenous, EVERY 2 HOURS | | AM PST | | | | | NEEDED, Starting 08/01/11 at | | | | | | | 1628, Until Josefa 08/02/11 at 1225, | | | | | | | moderate pain | | | | | | + +---------+ +--------+--------+---+ +---------+ +--------+--------+---+ | New Bag | 08/02/19 | 0.3 mg | mL/hr | | | | 12 2:07 | | | | | | AM PST | | | | +---------+ +--------+--------+---+ | New Bag | 08/01/19 | 0.5 mg | mL/hr | | | | 12 10:58 | | | | | | PM PST | | | | +---------+ +--------+--------+---+ +---+---+ | | | +---+---+ + +---------+ +--------+--------+---+ | HYDROmorphone (aka DILAUDID) | New Bag | 08/07/19 | 0.5 mg | mL/hr | | | injection 0.5 mg 0.5 mg, | | 12 5:59 | | | | | intravenous, EVERY 6 HOURS | | AM PST | | | | | NEEDED, Starting 08/06/11 at | | | | | | | 0815, Until Josefa 08/09/11 at 2037, | | | | | | | moderate pain, hold for sedation | | | | | | + +---------+ +--------+--------+---+ +---------+ +--------+--------+---+ | New Bag | 08/07/19 | 0.5 mg | mL/hr | | | | 12 12:25 | | | | | | AM PST | | | | +---------+ +--------+--------+---+ +---+---+ | | | +---+---+ + +---------+ +--------+--------+---+ | HYDROmorphone (aka DILAUDID) | New Bag | 01/22/20 | 0.5 mg | mL/hr | | | injection 0.5-1 mg 0.5-1 mg, | | 12 7:59 | | | | | intravenous, EVERY 4 HOURS | | PM PST | | | | | NEEDED, Starting 08/03/11 at | | | | | | | 0922, Until 08/06/11 at 0805, | | | | | | | moderate pain, hold for sedation | | | | | | + +---------+ +--------+--------+---+ +---------+ +--------+--------+---+ | New Bag | 08/05/19 | 0.5 mg | mL/hr | | | | 12 2:16 | | | | | | PM PST | | | | +---------+ +--------+--------+---+ | New Bag | 08/05/19 | 0.5 mg | mL/hr | | | | 12 12:20 | | | | | | AM PST | | | | +---------+ +--------+--------+---+ +---+---+ | | | +---+---+ + +-------+ +---------+---+---+ | lidocaine (aka LIDODERM) 5 | Given | 08/04/19 | 1 patch | | | | %(700 mg/patch) 1 Patch 1 patch, | | 12 5:53 | | | | | transdermal, EVERY 24 HOURS, | | AM PST | | | | | First dose on Sat08/03/11 at | | | | | | | 0600, Until Discontinued | | | | | | + +-------+ +---------+---+---+ +-------+ +---------+---+---+ | Given | 08/03/19 | 1 patch | | | | | 12 6:44 | | | | | | AM PST | | | | +-------+ +---------+---+---+ +---+---+ | | | +---+---+ + +---------+ +-----+--------+---+ | magnesium sulfate IV 2 g 2 g, | New Bag | 08/02/19 | 2 g | mL/hr | | | intravenous, ONCE, 1 dose, Josefa | | 12 10:10 | | | | | 08/02/11 at 0730 | | AM PST | | | | + +---------+ +-----+--------+---+ +---+---+ | | | +---+---+ + +-------+ +---------+---+---+ | metoprolol tartrate (aka | Given | 08/06/19 | 12.5 mg | | | | LOPRESSOR) tablet 12.5 mg 12.5 | | 12 3:35 | | | | | mg, oral, EVERY 6 HOURS, First | | AM PST | | | | | dose on Josefa 08/02/11 at 1600, | | | | | | | Until Discontinued | | | | | | + +-------+ +---------+---+---+ +-------+ +---------+---+---+ | Given | 08/05/19 | 12.5 mg | | | | | 12 9:09 | | | | | | PM PST | | | | +-------+ +---------+---+---+ | Given | 08/05/19 | 12.5 mg | | | | | 12 4:56 | | | | | | PM PST | | | | +-------+ +---------+---+---+ +---+---+ | | | +---+---+ + +-------+ +-------+---+---+ | metoprolol tartrate (aka | Given | 08/09/19 | 25 mg | | | | LOPRESSOR) tablet 25 mg 25 mg, | | 12 8:42 | | | | | oral, TWICE DAILY, First dose | | AM PST | | | | | (after last modification) on Mon | | | | | | | 08/06/11 at 0900, Until | | | | | | | Discontinued | | | | | | + +-------+ +-------+---+---+ +-------+ +-------+---+---+ | Given | 08/08/19 | 25 mg | | | | | 12 8:57 | | | | | | PM PST | | | | +-------+ +-------+---+---+ | Given | 08/08/19 | 25 mg | | | | | 12 9:05 | | | | | | AM PST | | | | +-------+ +-------+---+---+ +---+---+ | | | +---+---+ + +---------+ +------+--------+---+ | midazolam (aka VERSED) | New Bag | 08/07/19 | 8 mg | mL/hr | | | injection 1-10 mg 1-10 mg, | | 12 8:48 | | | | | intravenous, HSD PRN, Starting | | AM PST | | | | | 08/07/11 at 0828, Until Tue | | | | | | | 08/07/11 at 1032, sedation for CRISTIAN | | | | | | + +---------+ +------+--------+---+ +---+---+ | | | +---+---+ + +-------+ +---------+---+---+ | multivitamin 1 Cap 1 capsule, | Given | 08/09/19 | 1 | | | | oral, DAILY, First dose on Sat | | 12 8:41 | capsule | | | | 08/02/11 at 0900, Until | | AM PST | | | | | Discontinued | | | | | | + +-------+ +---------+---+---+ +-------+ +---------+---+---+ | Given | 08/08/19 | 1 | | | | | 12 9:05 | capsule | | | | | AM PST | | | | +-------+ +---------+---+---+ | Given | 08/07/19 | 1 | | | | | 12 11:26 | capsule | | | | | AM PST | | | | +-------+ +---------+---+---+ +---+---+ | | | +---+---+ + +---------+ + +--------+---+ | NaCl 0.9 % IV bolus 1,000 mL | New Bag | 08/03/19 | 1,000 mL | mL/hr | | | 1,000 mL, intravenous, ONCE, 1 | | 12 9:12 | | | | | dose, 08/03/11 at 0900 | | AM PST | | | | + +---------+ + +--------+---+ +---+---+ | | | +---+---+ + +---------+ + +--------+---+ | NaCl 0.9 % IV bolus 1,000 mL | New Bag | 08/04/19 | 1,000 mL | mL/hr | | | 1,000 mL, intravenous, ONCE, 1 | | 12 10:37 | | | | | dose, 08/04/11 at 0915 | | AM PST | | | | + +---------+ + +--------+---+ +---+---+ | | | +---+---+ + +---------+ +-------+-------+---+ | NaCl 0.9 % IV 100 mL/hr, | New Bag | 08/05/19 | 100 | 100 | | | intravenous, CONTINUOUS, Starting | | 12 10:00 | mL/hr | mL/hr | | | 08/03/11 at 0900, Until Mon | | PM PST | | | | | 08/06/11 at 0805 | | | | | | + +---------+ +-------+-------+---+ +---------+ +-------+-------+---+ | New Bag | 08/05/19 | 100 | 100 | | | | 12 10:47 | mL/hr | mL/hr | | | | AM PST | | | | +---------+ +-------+-------+---+ | New Bag | 08/04/19 | 100 | 100 | | | | 12 6:29 | mL/hr | mL/hr | | | | PM PST | | | | +---------+ +-------+-------+---+ +---+---+ | | | +---+---+ + +---------+ +-----+--------+---+ | nafcillin IV (minibag+) 2 g 2 | New Bag | 08/08/19 | 2 g | mL/hr | | | g, intravenous, EVERY 4 HOURS, | | 12 2:50 | | | | | First dose on [facility] 08/02/11 at | | PM PST | | | | | 1600, Until Discontinued | | | | | | + +---------+ +-----+--------+---+ +---------+ +-----+--------+---+ | New Bag | 08/08/19 | 2 g | mL/hr | | | | 12 9:05 | | | | | | AM PST | | | | +---------+ +-----+--------+---+ | New Bag | 08/08/19 | 2 g | mL/hr | | | | 12 7:14 | | | | | | AM PST | | | | +---------+ +-----+--------+---+ +---+---+ | | | +---+---+ + +-------+ +--------+---+---+ | nitroglycerin (aka NITROSTAT) | Given | 08/07/19 | 0.4 mg | | | | tablet 0.4 mg 0.4 mg, | | 12 1:44 | | | | | sublingual, EVERY 5 MINUTES | | AM PST | | | | | NEEDED, Starting Sat08/03/11 at | | | | | | | 0610, Until Sat08/09/11 at 2037, | | | | | | | chest pain | | | | | | + +-------+ +--------+---+---+ +-------+ +--------+---+---+ | Given | 08/03/19 | 0.4 mg | | | | | 12 6:15 | | | | | | AM PST | | | | +-------+ +--------+---+---+ +---+---+ | | | +---+---+ + +---------+ +------+--------+---+ | ondansetron (aka ZOFRAN) | New Bag | 08/06/19 | 4 mg | mL/hr | | | injection 4 mg 4 mg, | | 12 10:12 | | | | | intravenous, EVERY 12 HOURS | | AM PST | | | | | NEEDED, Starting Sat08/06/11 at | | | | | | | 0956, Until Sat08/09/11 at 2037, | | | | | | | nausea/vomiting | | | | | | + +---------+ +------+--------+---+ +---+---+ | | | +---+---+ + +-------+ +-------+---+---+ | oxyCODONE immediate release | Given | 08/07/19 | 10 mg | | | | (aka ROXICODONE) tablet 5-10 mg | | 12 3:29 | | | | | 5-10 mg, oral, EVERY 6 HOURS | | AM PST | | | | | NEEDED, Starting Sat08/06/11 at | | | | | | | 0815, Until Sat08/07/11 at 0712, | | | | | | | moderate pain | | | | | | + +-------+ +-------+---+---+ +-------+ +-------+---+---+ | Given | 08/06/19 | 10 mg | | | | | 12 9:53 | | | | | | PM PST | | | | +-------+ +-------+---+---+ | Given | 08/06/19 | 10 mg | | | | | 12 11:21 | | | | | | AM PST | | | | +-------+ +-------+---+---+ +---+---+ | | | +---+---+ + +-------+ +-------+---+---+ | oxyCODONE immediate release | Given | 08/09/19 | 10 mg | | | | (aka ROXICODONE) tablet 5-10 mg | | 12 11:46 | | | | | 5-10 mg, oral, EVERY 4 HOURS | | AM PST | | | | | NEEDED, Starting Sat08/07/11 at | | | | | | | 0715, Until Sat08/09/11 at 2037, | | | | | | | moderate pain | | | | | | + +-------+ +-------+---+---+ +-------+ +------+---+---+ | Given | 08/09/19 | 5 mg | | | | | 12 6:01 | | | | | | AM PST | | | | +-------+ +------+---+---+ | Given | 08/08/19 | 5 mg | | | | | 12 5:17 | | | | | | AM PST | | | | +-------+ +------+---+---+ +---+---+ | | | +---+---+ + +-------+ +-------+---+---+ | oxyCODONE immediate release | Given | 08/06/19 | 15 mg | | | | (aka ROXICODONE) tablet 5-15 mg | | 12 6:34 | | | | | 5-15 mg, oral, EVERY 3 HOURS | | AM PST | | | | | NEEDED, Starting 08/01/11 at | | | | | | | 1628, Until 08/06/11 at 0805, | | | | | | | moderate pain | | | | | | + +-------+ +-------+---+---+ +-------+ +-------+---+---+ | Given | 08/06/19 | 15 mg | | | | | 12 2:20 | | | | | | AM PST | | | | +-------+ +-------+---+---+ | Given | 08/05/19 | 15 mg | | | | | 12 4:56 | | | | | | PM PST | | | | +-------+ +-------+---+---+ +---+---+ | | | +---+---+ + +-------+ +--------+---+--------+ | pneumococcal (23-valent) | Given | 08/04/19 | 0.5 mL | | Right | | polysaccharide vaccine (aka | | 12 12:38 | | | Arm | | PNEUMOVAX) injection 0.5 mL 0.5 | | PM PST | | | | | mL, intramuscular, ONE TIME IN | | | | | | | THE MORNING, 1 dose, First dose | | | | | | | on 08/03/11 at 1200 | | | | | | + +-------+ +--------+---+--------+ +---+---+ | | | +---+---+ + +-------+ +--------+---+---+ | potassium chloride (aka | Given | 08/02/19 | 40 mEq | | | | KLOR-CON) packet 40 mEq 40 mEq, | | 12 8:21 | | | | | oral, ONCE, 1 dose, [facility] 08/02/11 | | AM PST | | | | | at 0700 | | | | | | + +-------+ +--------+---+---+ +---+---+ | | | +---+---+ + + + + +-------+---+ | sodium bicarbonate 150 mEq in | Rate/Dos | 08/06/19 | 1 | 84.5 | | | dextrose 5% IV infusion 1-3 | e Change | 12 10:12 | mL/kg/hr | mL/hr | | | mL/kg/hr | | AM PST | | | | | 84.5 kg (rounded to 84.5-253.5 | | | | | | | mL/hr), intravenous, CONTINUOUS, | | | | | | | Starting 08/06/11 at 0300, | | | | | | | Until 08/06/11 at 1559 | | | | | | + + + + +-------+---+ +---------+ + +--------+---+ | New Bag | 08/06/19 | 3 | 253.5 | | | | 12 8:08 | mL/kg/hr | mL/hr | | | | AM PST | | | | +---------+ + +--------+---+ | New Bag | 08/06/19 | 3 | 253.5 | | | | 12 3:30 | mL/kg/hr | mL/hr | | | | AM PST | | | | +---------+ + +--------+---+ +---+---+ | | | +---+---+ + +-------+ +-------+---+---+ | traZODone (aka DESYREL) dose 25 | Given | 08/01/19 | 25 mg | | | | mg 25 mg, oral, AT BEDTIME | | 12 9:40 | | | | | NEEDED, Starting 08/01/11 at | | PM PST | | | | | 2124, Until 08/06/11 at 0805, | | | | | | | insomnia | | | | | | + +-------+ +-------+---+---+ +---+---+ | | | +---+---+ + +---------+ +-------+--------+---+ | vancomycin (aka VANCOCIN) IV | New Bag | 08/02/19 | 1.5 g | mL/hr | | | 1.5 g 1.5 g, intravenous, EVERY | | 12 8:28 | | | | | 12 HOURS, First dose on Wed | | AM PST | | | | | 08/01/11 at 2100, Until | | | | | | | Discontinued | | | | | | + +---------+ +-------+--------+---+ +---------+ +-------+--------+---+ | New Bag | 08/01/19 | 1.5 g | mL/hr | | | | 12 9:35 | | | | | | PM PST | | | | +---------+ +-------+--------+---+ +---+---+ | | | +---+---+ + +-------+ +------+---+---+ | zolpidem (justin BELCHER) tablet 5 | Given | 08/08/19 | 5 mg | | | | mg 5 mg, oral, AT BEDTIME | | 12 11:18 | | | | | NEEDED, Starting 08/07/11 at | | PM PST | | | | | 2300, Until Sat08/09/11 at 2036, | | | | | | | insomnia | | | | | | + +-------+ +------+---+---+ +-------+ +------+---+---+ | Given | 08/07/19 | 5 mg | | | | | 12 11:16 | | | | | | PM PST | | | | +-------+ +------+---+---+ +---+---+ | | | +---+---+ documented in this encounter
--- OUTSIDE RECORDS SUMMARY | ~2019-11-22 | XMS | Encounter Summary ---
Demographics + + + | Address | [address] | | | [place] [address] | + + + | Home Phone | | + + + | Preferred Language | Unknown | + + + | Marital Status | | + + + | Amish Affiliation | PRE | + + + | Race | White | + + + | Ethnic Group | Not or | + + + Author + + + | Author | [facility] | + + + | Organization | [facility] | + + + | Address | Unknown | + + + | Phone | Unavailable | + + + Support + + + + + | Name | Relationship | Address | Phone | + + + + + | Ricarda Johnson | ECON | [address] | | | | | [place] | | | | | [address] | | + + + + + Care Team Providers + +------+ + | Care Radiology Rn Name | Role | Phone | + [...] [place] | | | | | | [facility] [place] | [place], [place] | | | | | | [address] | [address] | | | | | | Phone: | Phone: | | | | | | [phone] | [phone] | | | | | | Fax: | Fax: | | | | | | [phone] | [phone] | +--------+--------+ + + + + Encounter Details +--------+---------+ + + + | Date | Type | Department | Care Team | Description | +--------+---------+ + + + | 09/20/ | Office | Infectious | Jhon Jackson, | Bacteremia; | | 2011 | Visit | [facility] at [facility] | MD [address] | Osteomyelitis of | | | | [address] | spine (HCC) | | | | [address] [facility] | [place] [address] | | | | | [place], [address]rd floor | [phone] | | | | | [place], [place] | | | | | | [address] | | | | | | [phone] | | | +--------+---------+ + + + [...] + + + | Blood Pressure | 124/78 | 09/21/2011 12:10 PM | | | | | PST | | + + + + + | Pulse | 64 | 09/21/2011 12:10 PM | | | | | PST | | + + + + + | Temperature | 36.6 C (97.8 F) | 09/21/2011 12:10 PM | | | | | PST | | + + + + + | Respiratory Rate | - | - | | + + + + + | Oxygen Saturation | 100% | 09/21/2011 12:10 PM | | | | | PST | | + + + + + | Inhaled Oxygen | - | - | | | Concentration | | | | + + + + + | Weight | 82.6 kg (182 lb) | 09/21/2011 12:10 PM | | | | | PST | | + + + + + | Height | 175.3 cm (5' 9") | 09/21/2011 12:10 PM | | | | | PST | | + + + + + | Body Mass Index | 26.88 | 09/21/2011 12:10 PM | | | | | PST | | + + + + + documented in this encounter Progress Notes Jhon Jackson MD - 09/21/2011 11:14 AM PSTFormatting of this note might be different fr om the original. INFECTIOUS DISEASES CLINIC FOLLOW UP Referrring Physician: Steven Rodriguez MD Pulmonary & Critical Care Medicine [address] [place] [phone] Primary Care Physician: [facility] [address] [place] [id number] Mr. Johnson presents to Infectious Diseases Clinic [...] 12 he presented to the ED in [place] and was given IV glucocorticoid and a course of oral prednisone. He got no better and was was readmitted to the OSH on 07/30/2011. He was febrile to 104.5 with rigors, and was found to have MSSA bacteremia and was therefore transferred to [facility] on 08/01/2011. At [facility], no source for the MSSA bacteremia was [...] 6-8 week course of Ceftriaxone was recommended. [facility] was contracted for these services, with his PCP providing weekly labs and PICC dressing changes. The patient was deemed suitable for discharge to home on 08/09/2011. [facility] OPAT foll ow-up was planned in 2-3 weeks time. Relevant Radiology: 06/11/11: MRI Lumbar Spine at [facility] notable for L sacral lesion with contrast enhance ment suspicious for met 06/20/11: CT chest, abd, pelvis w/contrast at [facility] with "no definite metastatic disease" 06/21/11: [facility] PET Scan "geographic left sacral ala FDG hypermetabolism most likely represen ting insufficiency fracture" 06/29/11: Bone Scan at [facility] "intense radiotracer activity in the L sacrum along the L sacroiliac joint from top to bottom in a pattern that suggests a fracture" 06/29/11: MRI pelvis from [facility] "abnormal signal intensity and enhancement in the lef t sacrum, left ilium, right ilium, and L5 pedical and L5 vertebral body. The [facility] CT scan al so demonstrates and L1 [...] He has been administering IV Ceftriaxone as dir ected with no missed doses. He reports no [...] changes in osteomy output or urinatry function. Interim History The patient now presents to clinic today for follow-up. He is doing very well, with the pa in almost entirely gone. No problems with the antibiotics and PICC line There have been no fevers chills. Lab Results Component Value Date ESR 68 09/12/2011 CRP 5 09/12/2011 CK 27* 08/03/2011 CR 1.22 09/12/2011 Current Medications: Current Outpatient Prescriptions Medication Sig ASPIRIN/ACETAMINOPHEN/CAFFEINE (EXCEDRIN MIGRAINE ORAL) Take by mouth. cefTRIAXone 1 gram Intravenous Recon Soln Inject 2 g into the vein (IV) every twenty-fo ur hours. Medication to be admixed per infusion pharmacy standard policy and/or procedure. GLUC NASH/CHONDRO NASH A/VIT C/MN (GLUCOSAMINE CHONDROITIN MAXSTR ORAL) Take by mouth once daily. Miscellaneous Medical Supply (BLOOD PRESSURE CUFF) Misc multivitamin Oral Capsule Take 1 Cap by mouth once daily. Pavilion-3 Fatty Acids-Vitamin E (FISH OIL) 1,000 mg Oral Capsule Take by mouth. oxyCODONE, immediate release, 5 mg Oral Tablet Take 1 Tab by mouth every six hours as n eeded. Allergies: Review of patient's allergies indicates no known allergies. Physical Exam: The patient was sitting comfortably at rest. Looked well Non-icteric No rashes The PICC/groshong site was healthy and clean Back is non-tender Diagnostic Tests: Lab Results Component Value Date WBC 4.4 09/12/2011 HB 10.4* 09/12/2011 HCT 30.2 09/12/2011 PLT 228 09/12/2011 MCV 96.8 09/12/2011 RDW 13.8 09/12/2011 Lab Results Component Value Date NA 135 09/12/2011 K 4.6 09/12/2011 CL 106 09/12/2011 BICARB 21 09/12/2011 BUN 23 09/12/2011 CR 1.22 09/12/2011 GLU 89 09/12/2011 CA 9.2 09/12/2011 AST 14 09/12/2011 ALT 11 09/12/2011 AP 109 09/12/2011 TBILI 0.5 09/12/2011 TP 6.5 09/12/2011 ALB 4 09/12/2011 Assessment/Plan he is doing well from the back standpoint. We discussed bone infection. I explained how adrian durand can make a slime and go to sleep under it. They also like to hide on any bone that is devitalized or on prosthetic material. I explained that initially we kill the bulk of bacte sergio, but antibiotics are needed for a long time so that we can kill any remaining bacteria w hen they wake up. I explained that there is no set duration of antibiotic treatment for garrett ortega infection. I explained that we usually treat back infections for 6-12 weeks. He is likel y functionally somewhat immuno-suppressed so have suggested 9 weeks for which he is in agree ment with. Plan is as follows: 1) Stop IV antibiotics on 10/12/11 ad have his PICC line removed locally 2) Transition at this time to doxycyline 100mg po q 12- will have a prescription faxed to him 3) Follow-up in October when he is here to see his GI surgeons It is recommended that Mr. Johnson follow up in Infectious Diseases Clinic in October I spent 20 minutes evaluating and co-ordinating the care of the patient with the predomina nt time, over 50%, spent in councelling the patient. We had the above discussion. JHON JACKSON MD INFECTIOUS DISEASES [facility] [address] [facility] Mailcode: [id number] [facility] [address] documented in this e ncounter Plan of Treatment Not on filedocumented as of this encounter Visit Diagnoses + + | Diagnosis | + + | Bacteremia | + + | Osteomyelitis of spine (HCC) Unspecified osteomyelitis, other specified site | + + documented in this encounter
--- OUTSIDE RECORDS SUMMARY | ~2019-11-22 | XMS | Encounter Summary ---
Demographics + + + | Address | [address] | | | [place] [address] | + + + | Home Phone [...] Team Providers + +------+ + | Care Brewery Representative Name | Role | Phone | [...] + + | 10/22/ | Hospital | [facility] | Kemal Damian MD | S/P lumbar fusion | | 2014 - | Encounter | MED CTR SURGICAL | [address] | (Primary Dx); Rectal | | | | [address] | [place] [address] | cancer (HCC); High | | 10/24/ | | [place] [address] | [phone] | cholesterol; | | 2013 | | [phone] | | Preoperative testing | +--------+ + [...] be sent through Care Everywhere.BACK EXERCISES, LUMBAR (PALAUAN)AFTER BACK SURGERY: GOING HOME (PALAUAN)CONSTIPATION (ADULT) (PALAUAN)docum ented in this encounter Medications at Time [...] might be different from t arturo original. [facility] PROGRESS NOTE Pt. Name/Age/: Cosmo Johnson 68 y.o. 1945 Med. Record Number: [id number] Date of admission: 10/22/2013 Subjective: The patient [...] Electronically signed by: Kemal Damian, 10/24/2013 9:58 [facility] Kirk Lamar PA - 10/23/2013 7:28 AM PDT [facility] PROGRESS NOTE Pt. Name/Age/: Cosmo Johnson 68 y.o. 1945 Med. Record Number: [id number] Date of admission: 10/22/2013 Subjective: The patient [...] Electronically signed by: Kirk Javier, 10/23/2013 7:28 [facility] Tierra Veliz RN - 10/22/2013 12:15 PM [...] | | Lateral | | e | ([facility]) High | | | | | | [...] spinal fusion hardware at the level of U3hxkrjok L4 is noted, with disc | | [...] | There is decreased disc height at A98-V0cmq L4-5, and posteriorly at L5-S1.IMPRESSION | | [...] + + | Performing | Address | City/State/[facility] | Phone Number | | Organization | | | | + +---------+ + + | MISCELLANEOUS LAB | | | [phone] | + +---------+ + + | MISCELANIOUS LAB | | | [phone] | + +---------+ + + [place] C-[facility] [...] + | [facility] | [address] | [place] | [phone] | | [facility] | | [address] | | | - LABORATORY | | | | + + + + + | [facility] | [address] | [place], [place] | | | [facility] | | [address], [facility] | | | - LABORATORY | | [...] 1.43 (H) | 0.60 - 1.30 | [facility] | | | | | mg/dL | [facility] | | | | | | MEDICAL | | | | | | CENTER - | | | | | | LABORATORY | | + + + + + + | eGFR if not | 49 (L)Comment: | >=60 | [place] | | | | GLOMERULAR FILTRATION | mL/min/1.73m2 | [facility] | | | MAL[place]IAN | RATE,ESTIMATED | | MEDICAL | | | | mL/min/1.39t3Ikwy than | | CENTER - | | [...] | 9.6 | 8.3 - 10.5 | [place] | | | | | mg/dL | [facility] | | | | | | MEDICAL [...] [address] | [place] | [phone] | | [facility] | | [address] | | | - LABORATORY | | | | + + + + + | [facility] | [address] | [place], [place] | | | [facility] | | [address], [facility] | | | - LABORATORY | | [...] | | | | | | | [facility] 10/22/13 at 1600, For 2 doses, | [...] PDT | | | | | Starting [facility] 10/22/13 at 1235, | | | | [...] + +---------+ +--------+---------+---+ | morphine 5 mg/mL SUBSCRIPTION CREW LEADER syringe | New Bag | 10/23/19 | [...] | | | | Dose(mg): 1, Starting SUBSCRIPTION CREW LEADER | | | | | | | Dose(mg): 1, Incremental Increase | | | | | | | SUBSCRIPTION CREW LEADER Dose(mg): 1, Maximum SUBSCRIPTION CREW LEADER | | | | | | | [...]
--- OUTSIDE RECORDS SUMMARY | ~2019-11-22 | XMS | Encounter Summary ---
Demographics + + + | Address | [address] | | | [place] [address] | + + + | Home Phone | | + + + | Preferred Language | Unknown | + + + | Marital Status | | + + + | Alevism Affiliation | 1077 | + + + | Race | Unknown | + + + | Ethnic Group | Unknown | + + + Author + + + | Author | [facility] | | | and [place] | + + + | Organization | [facility] | | | [...] Team Providers + +------+ + | Care Ware Finisher Name | Role | Phone | + +------+ + | Aldo Frank DO | PCP | | + +------+ + Reason for Visit + + + | Reason | Comments | + + + | Medication Screening | NS medications to stop prior to surgery | + + + Encounter Details +--------+ + + + + | Date | Type | Department | Care Team | Description | +--------+ + + + + | 05/21/ | Telephone | [facility] [place] | Geraldo Bass | Medication Screening | | 2018 | | [facility] [address] MD [address] | (NS medications to | | | | [address] [place] | stop prior to | | | | [place] | [place] [address] | surgery) | | | | [address] | [phone] | | | | | [phone] | | | +--------+ + + + [...]
--- OUTSIDE RECORDS SUMMARY | ~2019-11-22 | XMS | Encounter Summary ---
Demographics + + + | Address | [address] | | | [place] [address] | + + + | Home Phone [...] Team Providers + +------+ + | Care Product Safety Lead Name | Role | Phone | + +------+ + PCP | Unavailable | + +------+ + Encounter Details +--------+ + + + + | Date | Type | Department | Care Team | Description | +--------+ + + + + | 08/10/ | Hospital | [facility] | | | | 2009 - | Encounter | MED CTR GENERIC IP | | | | | | CONV DEPT [address] | | | | 08/11/ | | [address] [place], | | | | 2009 | | [place] [address] | | | | | | [phone] | | | +--------+ + + + [...]
--- OUTSIDE RECORDS SUMMARY | ~2019-11-22 | XMS | Encounter Summary ---
Demographics + + + | Address | [address] | | | [place] [address] | + + + | Home Phone | | + + + | Preferred Language | Unknown | + + + | Marital Status | | + + + | Baptist Affiliation | 1077 | + + + [...] Team Providers + +------+ + | Care Art Specialist Name | Role | Phone | + +------+ + | Aldo Frank DO | PCP | | + +------+ + Reason for Visit + + + | Reason | Comments | + + + | Pain Management | post op appointment ([facility]) | + + + Encounter Details +--------+ [...] [address] | ([facility])) | | | | [place] | [place] [address] | | | | | [address] | [phone] | | | | | [phone] | | | +--------+ + + + [...] Noble The following information was obtained from https://Correlix.Chi2gel.gov/myAccess/saw/select .do on 06/25/19. No results returned on the [facility] query for l ast 3 months. He was prescribed Hydrocodone 7.5/325 1-2 tablets every 4 hrs prn #60 on 06/18/19, not showi ng on [facility] check. documented in this enco unter Plan of Treatment Not on filedocumented as of this encounter Visit Diagnoses Not on filedocumented in this encounter"
--- OUTSIDE RECORDS SUMMARY | ~2019-11-22 | XMS | Encounter Summary ---
Demographics + + + | Address | [address] | | | [place] [address] | + + + | Home Phone [...] Team Providers + +------+ + | Care Letterpress Setter Name | Role | Phone | + +------+ + | Hay Greco MD | PCP | | + +------+ + Encounter Details +--------+ + + + + | Date | Type | Department | Care Team | Description | +--------+ + + + + | 05/12/ | [facility] | [facility] | | | | 2012 | Encounter | MED CTR XRAY [address] | | | | | | [place] | | | | | | [place] [address] | | | | | | [phone] | | | +--------+ + + + [...] + + + | MRI LUMBAR SPINE W | Routin | 05/12/2013 | | Results for this | | WO CONTRAST | e | 2:48 PM | | procedure are in the | | | | PDT | | results section. | + +--------+ + + + documented in this encounter Results MRI Lumbar Spine w wo Contrast (05/12/2013 2:48 PM PDT) + + | Specimen | + + | | + + + + + | Narrative | Performed At | + + + | [facility] | [place] | | Department [address] , [place] | [facility] | | [ rep [address]] [ rep [facility] | | st zip] Signed | - IMAGING | | | | | Patient Name: TYLOR OLIVERA | | | Physician: JOHN : 1945 Age: 67 Sex: M Unit | | | #: [id number] Exam Date: 05/12/13 Location: | | | [facility] Report #: [id number] Page: | | | %(RAD)RES..mtdd.print.filter("pg") of %(RAD) | | | RES..mtdd.print.filter("tpg") | | | | | | Accession Number: [id number] | | | LUMBAR SPINE WITH AND WITHOUT CONTRAST CLINICAL HISTORY: | | | 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 PRIOR SURGERY 2009. | | | HISTORY OF RECTAL CANCER. RADIATION THERAPY. COMPARISON: | | | Preoperative MRI 03/14/2009. Postoperative MRI 06/11/2011. Both of the | | | comparison MRI's are from [facility] in [facility] | | | [place]. TECHNIQUE: Multiplanar, multisequence MR imaging of | | | the lumbar spine prior to and following the uneventful intravenous | | | administration of 10 mL of Gadavist. FINDINGS: | | | Levoconvex scoliosis is mild. There is degenerative retrolisthesis of | | | T12 on L1, L1 on L2, and L4 on L5. These are all known | | | abnormalities. Degenerative anterolisthesis of L2 on L3 and L3 on L4, | | | also known abnormalities. Schmorl's nodes are present in the | | | endplates of T12, L2, L3, and L4. The one in L3 is new and is | | | associated with some STIR hyperintensity. Modic type I endplate | | | changes are seen bordering L4-5 to a mild degree. Mild Modic type I | | | endplate changes at T12-L1. Disk collapse at T12- L1. Disk narrowing | | | is moderate at L2-3 and L3-4. Disk collapse is present at L4-5. Mild | | | disk narrowing at L5-S1. None of this is significantly changed. No | | | interval compression deformities. The conus is seen terminating at | | | the thoracolumbar junction. The visible distal cord is normal in size, | | | signal and contour. Operative intervention has been performed with | | | posterior spinous process plating at L2-3. The following | | | levels are evaluated in the axial plane: L1-2: Broad | | | posterior disk protrusion. Facet arthrosis and ligamentum flavum | | | redundancy. Mild narrowing of the central spinal canal. This level | | | is mildly progressed. The neural foramina are patent. L2-3: | | | Circumferential disk bulge. Facet arthrosis and ligamentum flavum | | | redundancy. Mild to moderate narrowing of the central spinal canal. | | | Mild to moderate narrowing of the neural foramen. This level is | | | unchanged. L3-4: Circumferential disk bulge. Moderate facet | | | arthrosis and significant ligamentum flavum redundancy. Focally | | | this results in obliteration of the CSF signal, consistent with severe | | | central canal narrowing and encroachment on the subarticular | | | recesses. Mild to moderate bilateral neural foraminal narrowing is | | | mildly progressed as is the central canal narrowing. L4-5: | | | Foraminal components of disk protrusion, right and left, left greater | | | than right. Facet arthrosis is mild. Mild encroachment on the left | | | subarticular recess. Moderate left neural foraminal narrowing, | | | progressed. Mild right. L5-S1: Posterior disk protrusion. | | | Mild facet arthrosis. No significant narrowing of the central spinal | | | canal. Mild to moderate left neural foraminal narrowing. The right is | | | patent. There are areas of altered signal in the sacral | | | ala. These have a somewhat serpiginous appearance with low T1 and | | | intermediate to high T2 signal centrally and low T1 and T2 signal | | | peripherally. There is some associated enhancement, which is mostly | | | peripheral. There are small foci of altered signal in the posterior | | | portion of the ilii involving both sides. The signal alterations do | | | not breach the articular surfaces at the sacroiliac joints. There is | | | minimal endplate enhancement associated with the Schmorl's node and | | | L3, and some mild enhancement of the areas of Modic type I change. No | | | additional areas of abnormal osseous or soft tissue enhancement. | | | STIR hyperintense foci in the left kidney likely represent cysts. | | | IMPRESSION: 1. PROGRESSIVE CENTRAL CANAL NARROWING AT | | | L3-4 NOW MORE SEVERE THAN ON THE COMPARISON EXAM WITH ASSOCIATED | | | PROGRESSIVE, BUT NOT YET SEVERE NEURAL FORAMINAL NARROWING. | | | 2. PERSISTENT STABLE MODERATE CENTRAL SPINAL CANAL NARROWING AT L2-3. | | | 3. PROGRESSIVE ENCROACHMENT ON THE LEFT SUBARTICULAR RECESS | | | AND LEFT NEURAL FORAMEN AT L4-5. 4. CHANGES SEEN IN BOTH | | | SACRAL ALA AND PORTIONS OF THE ILII ARE SUGGESTIVE OF | | | OSTEONECROSIS/BONE INFARCTS. THE INVOLVEMENT OF THE LEFT SACRAL ALA | | | WAS IDENTIFIED IN 2010 ON THE COMPARATIVE EXAM. Dictated | | | Date/Time: 05/12/2013 14:48 Transcribed Date/Time: 05/12/2013 | | | 16:03 Acetylene Operator: <<Signature | | | on File>> | | | Shayne | | | Lucrecia Barreto MD05/12/13 1628 <Electronically signed by Shayne Singer | | Troy Barreto MD> Shayne Barreto MD 05/12/13 1448 | | | Acetylene Operator: [employer] [id number]/29/13 1603 | | | Hay rGeco MD | | + + + + + + + + | Performing | Address | City/State/Zipcode | Phone Number | | Organization | | | | + + + + + | [facility] | [address] | [place] | [phone] | | [facility] | | [address] | | | - IMAGING | | | | + + + + + documented in this encounter Visit Diagnoses Not on filedocumented in this encounter
--- OUTSIDE RECORDS SUMMARY | ~2019-11-22 | XMS | Encounter Summary ---
Demographics + + + | Address | [address] | | | [place] [address] | + + + | Home Phone | | + + + | Preferred Language | Unknown | + + + | Marital Status | | + + + | Church Affiliation | 1077 | + + + [...] Team Providers + +------+ + | Care Appointment Scheduler Name | Role | Phone | + [...] | | [address] | [place] [address] | Spinal stenosis of | | | | [place], [place] | [phone] | lumbar region, | | | | [address] | | unspecified whether | | | | [phone] | Kirk Javier | neurogenic | | | | | [address] | claudication | | | | | [address] | present; Facet | | | | | [place] [address] | arthropathy, lumbar; | | | | | [phone] | S/P lumbar fusion; | | | [...] from the original. Kirk Javier PA-C [address] [facility], [address] [place] [address] FAX: NEUROSURGERY HISTORY AND PHYSICAL EXAMINATION CHIEF COMPLAINT: Chief Complaint Patient presents with Follow-up Discuss CT HISTORY OF PRESENT ILLNESS: The patient is a 71 y.o. male with the complaint of back and b ilateral leg pain symptoms that began 7-8 months ago. Patient was previously seen in our [facility]. We had ordered a CT scan of his lumbar spine. The results are being downloaded to [employer] at this time. In addition we had [...] first-deg ree AV block on his EKG. Chief Medical Director felt no additional testing was needed. He [...] Laterality: N/A; Surgeon: Kemal Damian MD; Location: [facility] OR LUMBAR LAMINECTOMY Dr. Tavarez SMALL [...] has no apparent deficits with short or correction memory. CRANIAL NERVES: II: Acuity is intact. [...] Intrinsics 5 5 Ulnar Intrinsics 5 5 Engineering Technical Specialist Strength 5 5 Hip Flexion 5 5 [...]
--- OUTSIDE RECORDS SUMMARY | ~2019-11-22 | XMS | Encounter Summary ---
Demographics + + + | Address | [address] | | | [place] [address] | + + + | Home Phone [...] + + + | Author | [facility] | + + + | Organization | [facility] | + + + | Address | Unknown | + + + | Phone | Unavailable | + + + Support + + + + + | Name | Relationship | Address | Phone | + + + + + | Ricarda Johnson | ECON | [address] | | | | | [place] | | | | | [address] | | + + + + + Care Team Providers + +------+ + | Care Advertising Clerk Name | Role | Phone | + +------+ + | Hay Greco MD | PCP | | + +------+ + Reason for Referral Consult to [place] (Routine) +--------+--------+ + + + + | Status | Reason | Specialty | Diagnoses / | Referred By | Referred To | | | | | Procedures | Contact | Contact | +--------+--------+ + + + + | Closed | | Surgery | Diagnoses | Berta | Berta, | | | | | Rectal | Edgar Zuñiga MD | Edgar Zuñiga MD | | | | | cancer (HCC) | [address] | | | | | Procedures | [address] | [address] | | | | | REQUEST TO | Diana Toledo | [address] [place], | | | | | SURGERY | [place], [place] | [place] | | | | | CONCRETE ENGINEER | [address] | [address] | | | | | | Phone: | Phone: | | | | | | [phone] | [phone] | | | | | | Fax: | Fax: | | | | | | [phone] | [phone] | +--------+--------+ + + + + Reason for Visit +---------+ + | Reason | Comments | +---------+ + | Post Op | | +---------+ + Consultation (Routine) +--------+ + + + [...] | Required | | tumor | [place] | [address] | | | | | Procedures | SURGICAL | [address] | | | | | CONSULT TO | CLINIC [address] | Mailcode: | | | | | COLORECTAL | [address] | [place] [facility] | | | | | SURGERY | AVE | Health and | | | | | | [place], | Healing, | | | | | | [place] [address] | [address] | | | | | | Phone: | [place], [place] | | | | | | [phone] | [address] | | | | | | Fax: | Phone: | | | | | | [phone] | [phone] | | | | | | | Fax: | | | | | | | [phone] | +--------+ + + + + + Encounter Details +--------+---------+ + + + | Date | Type | Department | Care Team | Description | +--------+---------+ + + + | 08/24/ | Office | [facility] | Edgar Hampton, | Rectal cancer (HCC) | | 2010 | Visit | [facility] at [facility] [address] | [address] | (Primary Dx) | | | | [address] | [address] | | | | | Mailcode: Center | [place], [place] | | | | | for [facility] and | [address] | | | | | [facility] | [phone] | | | | | [place], [place] | | | | | | [address] | | | | | | [phone] | | | +--------+---------+ + + + [...] + + + | Blood Pressure | 136/77 | 08/24/2010 10:47 AM | | | | | PST | | + + + + + | Pulse | 71 | 08/24/2010 10:47 AM | | | | | PST | | + + + + + | Temperature | 36.7 C (98 F) | 08/24/2010 10:47 AM | | | | | PST | | + + + + + | Respiratory Rate | 16 | 08/24/2010 10:47 AM | | | | | PST | | + + + + + | Oxygen Saturation | - | - | | + + + + + | Inhaled Oxygen | - | - | | | Concentration | | | | + + + + + | Weight | 80.6 kg (177 lb 11.2 | 08/24/2010 10:47 AM | | | | oz) | PST | | + + + + + | Height | 175.3 cm (5' 9") | 08/24/2010 10:47 AM | | | | | PST | | + + + + + | Body Mass Index | 26.24 | 08/24/2010 10:47 AM | | | | | PST | | + + + + + documented in this encounter Progress Notes Edgar Hampton MD - 08/24/2010 11:22 AM PST08/24/2010 Col[facility] Surgery [facility] Follow up visit Date of operation: 07/26/10 Procedure: LAR/TME-ileostomy Pathology : [id number] (preoop [id number]) Merritt returns for follow up. Overall doing well. Off pain meds. Eating well. Caring for sto ma well, empties 6-8 times per day, urine is variable, responds to po intake. No erectile fu nction yet. Mild mucus output pr, with continence. Sees Dr Mueller for oncology. He wou ld like to have ileostomy reversal before starting adjuvant therapy. Meds/allergies reviewed. ROS negative except HPI Exam BP 136/77 | Pulse 71 | Temp (Src) 36.7 C (98 F) (Oral) | RR 16 | Ht 1.753 m (5' 9") | W t 80.604 kg (177 lb 11.2 oz) | BMI 26.24 kg/(m^2) NAD Chest clear Heart reg abd soft, NT, inc clean Stoma healthy, functioning Labs Cr 0.91, abl 3.6, CEA 1.62, hgb 13.2 Imp clincally stage III, path CR, rectal cancer. Options of proceeding with chemo (recommended ) vs early ileostomy reversal reviewed. He understands that proceeding to adjuvant therapy is important, and that ileostomy closure will delay his treatment. However, he wants to proc eed with ileostomy closure before beginning adjuvant therapy Plan Return for preop visit Tues 09/26 with contrast study OR 09/27/10 for ileostomy reversal Patrick Herron - 08/15 11:03 AM PSTPt states he is doing good. Patient is asymptomatic. documented in this encounte r Plan of Treatment Not on filedocumented as of this encounter Visit Diagnoses + + | Diagnosis | + + | Rectal cancer (HCC) - Primary Malignant neoplasm of rectum | + + documented in this encounter
--- OUTSIDE RECORDS SUMMARY | ~2019-11-22 | XMS | Encounter Summary ---
Demographics + + + | Address | [address] | | | [place] [address] | + + + | Home Phone | | + + + | Preferred Language | Unknown | + + + | Marital Status | | + + + | Moravian Affiliation | PRE | + + + | Race | White | + + + | Ethnic Group | Not or | + + + Author + + + | Author | [facility] | + + + | Organization | [facility] | + + + | Address | Unknown | + + + | Phone | Unavailable | + + + Support + + + + + | Name | Relationship | Address | Phone | + + + + + | Ricarda Johnson | ECON | [address] | | | | | [place] | | | | | [address] | | + + + + + Care Team Providers + +------+ + | Care Supervisor Sound Technician Name | Role | Phone | + +------+ + | Hay Greco MD | PCP | | + +------+ + Encounter Details +--------+ + + + + | Date | Type | Department | Care Team | Description | +--------+ + + + + | 12/03/ | Hospital | Dermatopathology | | | | 2013 | Encounter | [address] | | | | | | Mailcode: [facility] | | | | | | [facility] | | | | | | and Healing, | | | | | | Building , | | | | | | Floor [place], [place] | | | | | | [address] | | | | | | [phone] | | | +--------+ + + + [...] + + + +---------+ + + | Scott-3 Fatty | Take by mouth. | | [...] | + +--------+ + + + | DERM PATHOLOGY | Routin | 12/03/2013 | | Results for this | | | e | | | procedure are in the | | | | | | results section. | + +--------+ + + + documented in this encounter Results DERM PATHOLOGY (12/03/2013) + + + + + + | Component | Value | Ref Range | Performed | Pathologist | | | | | At | Signature | + + + + + + | DERMATOPATH | SOURCE OF SPECIMEN:A Rt. | | [facility] | | | OLOGY(WET | superior shoulder, | | DERMATOPATH | | | MNT) | shave biopsy | | OLOGY | | | | CLINICAL DESCRIPTION:5X3 | | | | | | mm grayish & variegated | | | | | | brown macule; r/o | | | | | | atypical nevus, history | | | | | | ofMIS. 2 pieces. | | | | | | GROSS | | | | | | DESCRIPTION:Received in | | | | | | formalin is a specimen | | | | | | labeled [place], | | | | | | Cosmo:A: Specimen is | | | | | | labeled "R sup shoulder" | | | | | | and consists of two | | | | | | irregularshaves of | | | | | | cabezas-brown skin, [id number] | | | | | | and [id number]. The | | | | | | surgical margins | | | | | | areinked black; the | | | | | | tissues are both | | | | | | bisected, and entirely | | | | | | submitted incassette A1. | | | | | | MICROSCOPIC | | | | | | DESCRIPTION:There is a | | | | | | well circumscribed | | | | | | dermal nodule | | | | | | characterized by | | | | | | spindledmelanocytes | | | | | | distributed in small | | | | | | collections and | | | | | | individuallly within | | | | | | thedermis. Some of the | | | | | | melanocytes have | | | | | | melanin in cytoplasmic | | | | | | dendrites. | | | | | | DIAGNOSIS:BLUE NEVUS. | | | | | | NOTE: The right | | | | | | superior shoulder BLUE | | | | | | NEVUS extends to the | | | | | | deep surgicalmargin of | | | | | | the "superficial" shave | | | | | | specimen and closely to | | | | | | the deep surgicalmargin | | | | | | of the "deeper" shave | | | | | | biopsy. My | | | | | | [...] Diagnostician: | | | | | | Vera Prado | | | | | | DaniellePathologistMarcki | | | | | | marco Signed 12/08/2013 | | | | | | 11:35AM | | | | + + + + + + + + | Specimen | + + | | + + + + + + + | Performing | Address | City/State/Zipcode | Phone Number | | Organization | | | | + + + + + | [facility] | [address] | [place] [address] | | | DERMATOPATHOLOGY | [address] | | | + + + + + documented in this encounter Visit Diagnoses Not on filedocumented in this encounter
--- OUTSIDE RECORDS SUMMARY | ~2019-11-22 | XMS | Encounter Summary ---
Demographics + + + | Address | [address] | | | [place] [address] | + + + | Home Phone | | + + + | Preferred Language | Unknown | + + + | Marital Status | | + + + | Bahai Affiliation | 1077 | + + + | Race | Unknown | + + + | Ethnic Group | Unknown | + + + Author + + + | Author | [facility] | | | and [place] | + + + | Organization | [facility] | | | [...] Team Providers + +------+ + | Care Theatrical Scenic Designer Name | Role | Phone | + [...] + + + + | 10/22/ | Anesthesia | [facility] MAXWELL | [facility] | | | 2013 | Event | [facility] | MD Maci [address] | | | | [address] | [address] [place] | | | | | [place], [place] | [place] [address] | | | | | [address] | | | | | | | | | +--------+ + + + + Anesthesia Record + + + + + | Procedure Name | Responsible | Anesthesia Start | Anesthesia Stop Time | | | Anesthesiologist | Time | | + + + + + | L2-3, L3-4 | | 10/22/13 0754 | 10/22/13 1122 | | TRANSFORAMINAL | | | | | LUMBAR INTERBODY | | | | | FUSION (N/A Spine | | | | | Lumbar) | | | | + + + + + +----+---+ + + | Da | T | Event | Comment | | te | i | | | | | m | | | | | e | | | +----+---+ + + | 04 | 0 | An Start | Reassessment prior to anesthesia induction/procedure. | | /1 | 7 | | | | 0/ | 5 | | | | 20 | 4 | | | | 14 | | | | +----+---+ + + | | 0 | An Checkout | Pre-use anesthesia machine/equipment checkout | | | 7 | | | | | 5 | | | | | 4 | | | +----+---+ + + | | 0 | | | | | 7 | | | | | 5 | | | | | 8 | | | +----+---+ + + | | 0 | Antibiotic | | | | 7 | Given | | | | 5 | | | | | 9 | | | +----+---+ + + | | 0 | Preoxygenat | | | | 8 | ed | | | | 0 | | | | | 1 | | | +----+---+ + + | | 0 | An | | | | 8 | Induction | | | | 0 | | | | | 3 | | | +----+---+ + + | | 0 | An | | | | 8 | Intubation | | | | 0 | | | | | 5 | | | +----+---+ + + | | 0 | AN Bite | | | | 8 | Block | | | | 1 | | | | | 5 | | | +----+---+ + + | | 0 | Fountain | | | | 8 | 43-degrees | | | | 2 | | | | | 6 | | | +----+---+ + + | | 1 | Fountain off | | | | 1 | | | | | 0 | | | | | 9 | | | +----+---+ + + | | 1 | Breathing | | | | 1 | Spontaneous | | | | 1 | ly | | | | 2 | | | +----+---+ + + | | 1 | Oropharynx | | | | 1 | Suctioned | | | | 1 | | | | | 2 | | | +----+---+ + + | | 1 | Moving | | | | 1 | Purposefull | | | | 1 | y | | | | 2 | | | +----+---+ + + | | 1 | Extubated | | | | 1 | Awake | | | | 1 | | | | | 4 | | | +----+---+ + + | | 1 | an stop | | | | 1 | data | | | | 1 | | | | | 5 | | | +----+---+ + + | | 1 | An Stop | Patient handed off to recovery nurse. | | | 2 | | | | | 2 | | | +----+---+ + + +------+ | Meds | +------+ + + + | Name | Total | + + + | fentaNYL | 250 mcg | + + + | lidocaine 2% (PF) | 75 mg | + + + | lidocaine 2% | 199.5 mg | + + + | propofol | 150 mg | + + + | rocuronium | 50 mg | + + + | dexamethasone | 10 mg | + + + | ondansetron | 4 mg | + + + | ketamine | 50 mg | + + + | ketamine | 50.82 mg | + + + | dexmedetomidine (Bolus) | 40 mcg | + + + | dexmedetomidine (Infusion) | 50.46 mcg | + + + | ePHEDrine | 20 mg | + + + | HYDROmorphone | 0.5 mg | + + + | neostigmine | 3 mg | + + + | glycopyrrolate | 0.4 mg | + + + | ceFAZolin (ANCEF, KEFZOL) 1 G | 1 g | | injection | | + + + | magnesium sulfate | 2 g | + + + | lactated ringers (LR) infusion | 1,400 mL | + + + + + | Name | + + | N2O Flow Rate (L/Min) | + + | O2 Flow Rate (L/Min) | + + | Insp O2 | + + | Exp SEV | + + | Exp KTAHY | + + | Air Flow Rate (L/Min) | + + + + | No blood administrations on file. | + + +--------+ + + + | Type | Details | Placement | Removal | +--------+ + + + | Brace/ | 10/22/13; short term use; | 10/22/13 0000 by | 10/24/13 1140 by | | Orthot | 10/24/13; 1140 | Tierra Sesay RN | Denise Gutierrez, | | ic/Shailesh | | | RN | | jeannie | | | | +--------+ + + + | [READ | 10/22/13; 0649; 10/24/13; 1138 | 10/22/13 0649 by | 10/24/13 1138 by | | ONLY] | | Flavio Correia, | Denies Gutierrez, | | | | RN | RN | | Periph | | | | | eral | | | | | IV - | | | | | Single | | | | | Lumen | | | | | | | | | +--------+ + + + | Airway | Placement Date: 10/22/13; | 10/22/13 0805 by Tor | 10/22/13 1114 by Tor | | | Placement Time: 804; Mask | Maci Romero MD | Maci Romero MD | | | Ventilation: EZ; Airway Grade: I; | | | | | Successful Technique: Mac; | | | | | Laryngoscope Blade Size: 3; | | | | | Attempts: 1; Airway Type: | | | | | endotracheal, cuffed; Size: 7.5; | | | | | Airway Tube Secured At: 0.23 m | | | | | (9.06"); Tube Reference Point: | | | | | teeth; Trauma: none; Other | | | | | Equipment: stylette; Placement | | | | | Check: verified by capnography; | | | | | Placed By: Anesthesiologist; | | | | | Removal Date: 10/22/13; Removal | | | | | Time: 1114 | | | +--------+ + + + | Read | 10/22/13; 923; back; 10/24/13; | 10/22/13923 by | 10/24/13 1138 by | | only - | 1138 | Cristobal Lofton RN | Denise Gutierrez, | | | | | RN | | Incisi | | | | | on | | | | +--------+ + + + | Drain/ | 10/22/13; 1051; #1 (10 FR ERIKA); | 10/22/13 1051 by | 10/24/13 1000 by | | Device | posterior; lumbar spine; | Kemal Lay RN | Denise Gutierrez, | | Site | Discontinued by Dr. Rickie frias | | RN | | | morning; 10/24/13; 1000 | | | +--------+ + + + [...] | | | + +--------+ +------+------+------+ | ceFAZolin (ANCEF, KEFZOL) 1 G | Given | 10/23/19 | 1 g | | | | injection Starting Josefa 10/22/13 | | 14 7:59 | | | | | at 0757, For 1 dose, AIDA, | | AM PDT | | | | | FLAVIO: ciara fox, | | | | | | + +--------+ +------+------+------+ +---+---+ | | | +---+---+ + +-------+ +-------+---+---+ | dexamethasone (DECADRON) 10 | Given | 10/23/19 | 10 mg | | | | mg/mL injection Intravenous, | | 14 8:03 | | | | | PRN, Starting Josefa 10/22/13 at | | AM PDT | | | | | 0803, Anesthesia Intra-op | | | | | | + +-------+ +-------+---+---+ +---+---+ | | | +---+---+ + +---------+ + +-------+---+ | dexmedetomidine (PRECEDEX) 400 | New Bag | 10/23/19 | 0.28 | 5.6 | | | mcg in 100 mL NS infusion | | 14 8:36 | mcg/kg/h | mL/hr | | | Intravenous, CONTINUOUS PRN, | | AM PDT | r | | | | Starting Josefa 10/22/13 at 0836, | | | | | | | Anesthesia Intra-op | | | | | | + +---------+ + +-------+---+ +---+---+ | | | +---+---+ + +-------+ +--------+---+---+ | dexmedetomidine (PRECEDEX) in | Given | 10/23/19 | 40 mcg | | | | sodium chloride bolus infusion | | 14 8:26 | | | | | Intravenous, PRN, Starting Josefa | | AM PDT | | | | | 10/22/13 at 0826, Anesthesia | | | | | | | Intra-op | | | | | | + +-------+ +--------+---+---+ +---+---+ | | | +---+---+ + +-------+ +-------+---+---+ | ePHEDrine 50 mg/mL injection | Given | 10/23/19 | 10 mg | | | | PRN, Starting Josefa 10/22/13 at | | 14 10:38 | | | | | 0845, Anesthesia Intra-op | | AM PDT | | | | + +-------+ +-------+---+---+ +-------+ +-------+---+---+ | Given | 10/23/19 | 10 mg | | | | | 14 8:45 | | | | | | AM PDT | | | | +-------+ +-------+---+---+ +---+---+ | | | +---+---+ + +-------+ +--------+---+---+ | fentaNYL injection PRN, Pain, | Given | 04/10/20 | 50 mcg | | | | Starting Josefa 10/22/13 at 0801, | | 14 9:03 | | | | | Anesthesia Intra-op | | AM PDT | | | | + +-------+ +--------+---+---+ +-------+ +--------+---+---+ | Given | 10/23/19 | 50 mcg | | | | | 14 8:49 | | | | | | AM PDT | | | | +-------+ +--------+---+---+ | Given | 10/23/19 | 50 mcg | | | | | 14 8:32 | | | | | | AM PDT | | | | +-------+ +--------+---+---+ +---+---+ | | | +---+---+ + +-------+ +--------+---+---+ | glycopyrrolate (PAT) | Given | 10/23/19 | 0.4 mg | | | | injection PRNCathie, | | 14 11:01 | | | | | Starting Josefa 10/22/13 at 1101, | | AM PDT | | | | | Anesthesia Intra-op | | | | | | + +-------+ +--------+---+---+ +---+---+ | | | +---+---+ + +-------+ +--------+---+---+ | HYDROmorphone (PF) (DILAUDID) 2 | Given | 10/23/19 | 0.5 mg | | | | mg/mL injection PRN, Pain, | | 14 10:45 | | | | | Starting Josefa 10/22/13 at 1045, | | AM PDT | | | | | Anesthesia Intra-op | | | | | | + +-------+ +--------+---+---+ +---+---+ | | | +---+---+ + +-------+ +-------+---+---+ | ketamine 50 mg/mL injection | Given | 10/23/19 | 10 mg | | | | PRN, Starting Josefa 10/22/13 at | | 14 10:52 | | | | | 0826, Anesthesia Intra-op | | AM PDT | | | | + +-------+ +-------+---+---+ +-------+ +-------+---+---+ | Given | 10/23/19 | 40 mg | | | | | 14 8:26 | | | | | | AM PDT | | | | +-------+ +-------+---+---+ +---+---+ | | | +---+---+ + +---------+ + +-------+---+ | ketamine 50 mg/mL injection | New Bag | 10/23/19 | 4.7 | 0.5 | | | CONTINUOUS PRN, Starting Josefa | | 14 8:36 | mcg/kg/m | mL/hr | | | 10/22/13 at 0836, Anesthesia | | AM PDT | in | | | | Intra-op | | | | | | + +---------+ + +-------+---+ +---+---+ | | | +---+---+ + +---------+ +----+---+---+ | lactated ringers (LR) infusion | New Bag | 10/23/19 | mL | | | | at 10-100 mL/hr, Intravenous, | | 14 10:23 | | | | | CONTINUOUS, Starting Josefa 10/22/13 | | AM PDT | | | | | at 0645, TKO., Pre-op | | | | | | + +---------+ +----+---+---+ +---------+ +----+---+---+ | New Bag | 10/23/19 | mL | | | | | 14 7:54 | | | | | | AM PDT | | | | +---------+ +----+---+---+ +---+---+ | | | +---+---+ + +---------+ + +-------+---+ | lidocaine (PF) 2% injection | New Bag | 10/23/19 | 90 mg/hr | 4.5 | | | Intravenous, CONTINUOUS PRN, | | 14 8:36 | | mL/hr | | | Starting [facility] 10/22/13 at 0836, | | AM PDT | | | | | Anesthesia Intra-op | | | | | | + +---------+ + +-------+---+ +---+---+ | | | +---+---+ + +-------+ +-------+---+---+ | lidocaine (PF) 2% injection | Given | 10/23/19 | 75 mg | | | | PRN, Starting Josefa 10/22/13 at | | 14 8:03 | | | | | 0803, Anesthesia Intra-op | | AM PDT | | | | + +-------+ +-------+---+---+ +---+---+ | | | +---+---+ + +---------+ +--------+---------+---+ | magnesium sulfate 500 mg/mL | New Bag | 10/23/19 | 1 g/hr | 2 mL/hr | | | injection Intravenous, | | 14 8:40 | | | | | CONTINUOUS PRN, Starting Josefa | | AM PDT | | | | | 10/22/13 at 0840, Infuse over 2 - | | | | | | | 4 hours, Anesthesia Intra-op | | | | | | + +---------+ +--------+---------+---+ +---+---+ | | | +---+---+ + +-------+ +------+---+---+ | neostigmine (PROSTIGMIN) 1 | Given | 10/23/19 | 3 mg | | | | mg/mL injection PRN, Starting | | 14 11:01 | | | | | Josefa 10/22/13 at 1101, Anesthesia | | AM PDT | | | | | Intra-op | | | | | | + +-------+ +------+---+---+ +---+---+ | | | +---+---+ + +-------+ +------+---+---+ | ondansetron (ZOFRAN) injection | Given | 10/23/19 | 4 mg | | | | PRN, Nausea, Vomiting, Starting | | 14 8:03 | | | | | Josefa 10/22/13 at 0803, Anesthesia | | AM PDT | | | | | Intra-op | | | | | | + +-------+ +------+---+---+ +---+---+ | | | +---+---+ + +-------+ +--------+---+---+ | propofol (DIPRIVAN) injection | Given | 10/23/19 | 150 mg | | | | PRN, Starting Josefa 10/22/13 at | | 14 8:03 | | | | | 0803, Shake well. Do not filter. | | AM PDT | | | | | Expires 12 hours after spiked., | | | | | | | Anesthesia Intra-op | | | | | | + +-------+ +--------+---+---+ +---+---+ | | | +---+---+ + +-------+ +-------+---+---+ | rocuronium (ZEMURON) injection | Given | 10/23/19 | 50 mg | | | | Intravenous, PRN, Starting Josefa | | 14 8:03 | | | | | 10/22/13 at 0803, Anesthesia | | AM PDT | | | | | Intra-op | | | | | | + +-------+ +-------+---+---+ +---+---+ | | | +---+---+ documented in this encounter
--- OUTSIDE RECORDS SUMMARY | ~2019-11-22 | XMS | Encounter Summary ---
Demographics + + + | Address | [address] | | | [place] [address] | + + + | Home Phone [...] Team Providers + +------+ + | Care Media Librarian Name | Role | Phone | + +------+ + | Aldo Frank DO | PCP | | + +------+ + Reason for Visit + + + | Reason | Comments | + + + | Wrist Pain | | + + + Encounter Details +--------+ + + + + | Date | Type | Department | Care Team | Description | +--------+ + + + + | 11/19/ | Emergency | [facility] | Daryl Irwin | Cellulitis of hand | | 2019 - | | [facility] | [facility] [address] | (Primary Dx) | | | | [facility] [address] | [address] | | | 11/20/ | | [address] [place], [place] | [place] [address] | | | 2019 | | [address] | [phone] | | | | | [phone] | | | +--------+ + + + [...] + + + | Blood Pressure | 158/85 | 11/21/2019 12:01 AM | | | | | PDT | | + + + + + | Pulse | 80 | 11/21/2019 12:01 AM | | | | | PDT | | + + + + + | Temperature | 36.3 C (97.4 F) | 11/20/2019 10:16 PM | | | | | PDT | | + + + + + | Respiratory Rate | 13 | 11/21/2019 12:01 AM | | | | | PDT | | + + + + + | Oxygen Saturation | 94% | 11/21/2019 12:01 AM | | | | | PDT | | + + + + + | Inhaled Oxygen | - | - | | | Concentration | | | | + + + + + | Weight | 86.2 kg (190 lb) | 11/20/2019 10:16 PM | | | | | PDT | | + + + + + | Height | 172.7 cm (5' 8") | 11/20/2019 10:16 PM | | | | | PDT | | + + + + + | Body Mass Index | 28.89 | 11/20/2019 10:16 PM | | | | | PDT [...] documented as of this encounter Discharge Instructions Daryl Doyle DO - 11/20/2019Follow up with your primary provider. AttachmentsThe following attachments cannot be sent through Care Everywhere.Skin Infection, Cellulitis ([place])documented in this encounter Medications at Time of [...] | | Take 1 tablet by | 20 | 0 | 11/20/19 | | | amoxicillin-clavulan | mouth 2 times daily | tablet | | 20 | 0 | | ate (AUGMENTIN) | for 10 days. | | | | | | 875-125 mg per | | | | | [...] mEq by mouth | | 0 | // | | | (KLOR-CON) 10 mEq | [...] of this encounter Plan of Treatment + +------+--------+ + + | Name | Type | Priori | Associated Diagnoses | Date/Time | | | | ty | | | + +------+--------+ + + | ED INFORMATION | NIESL | Routin | | 11/20/2019 10:04 PM | | EXCHANGE | | e | | PDT | + +------+--------+ + + documented as of this encounter Procedures + +--------+ + + + | Procedure Name | Priori | Date/Time | Associated Diagnosis | Comments | | | ty | | | | + +--------+ + + + | SEDIMENTATION RATE, | STAT | 11/20/2019 | | Results for this | | AUTOMATED | | 10:30 PM | | procedure are in the | | | | PDT | | results section. | + +--------+ + + + | CBC WITH | STAT | 11/20/2019 | | Results for this | | DIFFERENTIAL | | 10:30 PM | | procedure are in the | | | | PDT | | results section. | + +--------+ + + + | C-REACTIVE PROTEIN | STAT | 11/20/2019 | | Results for this | | | | 10:30 PM | | procedure are in the | | | | PDT | | results section. | + +--------+ + + + | URIC ACID | Routin | 11/20/2019 | | Results for this | | | e | 10:30 PM | | procedure are in the | | | | PDT | | results section. | + +--------+ + + + | COMPREHENSIVE | STAT | 11/20/2019 | | Results for this | | METABOLIC PANEL | | 10:30 PM | | procedure are in the | | | | PDT | | results section. | + +--------+ + + + | XR WRIST LEFT 3 + VW | STAT | 11/20/2019 | | Results for this | | | | 10:27 PM | | procedure are in the | | | | PDT | | results section. | + +--------+ + + + | ED INFORMATION | Routin | 11/20/2019 | | | | EXCHANGE | e | 10:04 PM | | | | | | PDT | | | + +--------+ + + + +---+--------+ | | | | | Proced | | | ure | | | Note - | | | Reji, | | | Lab In | | | | | | Hlseve | | | n - | | | 11/19/ | | | 2019 | | | 10:05 | | | PM PDT | | | | | | Format | | | ting | | | of | | | this | | | note | | | might | | | be | | | differ | | | ent | | | from | | | the | | | origin | | | al.COL | | | LECTIV | | | E?NOTI | | | FICATI | | | ON?/ | | | | | | 0 | | | 22:03? | | | HETTIN | | | [place], | | | TYLOR | | | | | | K?MRN: | | | | | | [id number] | | | [id number] | | | riteri | | | a Met | | | Has | | | Care | | | Guidel | | | inesSe | | | curity | | | and | | | Safety | | | No | | | recent | | | | | | Securi | | | ty | | | Events | | | | | | curren | | | tly on | | | | | | fileED | | | Care | | | Guidel | | | inesTh | | | ere | | | are | | | curren | | | tly no | | | ED | | | Care | | | Guidel | | | beulah | | | for | | | this | | | patien | | | t. | | | Please | | | check | | | your | | | facili | | | ty's | | | medica | | | l | | | record | | | s | | | system | | | .Care | | | Histor | | | yMedic | | | al/Gemini | | | [email or web address] | | | /6/19 | | | 12:00 | | | AM | | | [facility] | | | al | | | Patien | | | t is | | | curren | | | tly | | | establ | | | ished | | | with | | | St | | | [facility] | | | Clinic | | | . If | | | patien | | | t is | | | seen | | | in the | | | ED | | | during | | | | | | busine | | | ss | | | hours. | | | | | | Please | | | | | | contac | | | t [facility] | | | at St | | | | | | [facility] | | | y | | | Clinic | | | .Care | | | Recomm | | | endati | | | on:Thi | | | s | | | patien | | | t has | | | had 5 | | | or | | | more | | | Emerge | | | ncy | | | Depart | | | ment | | | visits | | | in | | | the | | | last | | | 12 | | | months | | | .? | | | Patien | | | t | | | requir | | | es | | | educat | | | ion on | | | the | | | scope | | | and | | | purpos | | | e of | | | the ED | | | as an | | | acute | | | care | | | provid | | | er not | | | a | | | Primar | | | y Care | | | | | | Provid | | | er and | | | | | | should | | | not | | | be | | | utiliz | | | ed for | | | | | | chroni | | | c | | | condit | | | ions.? | | | These | | | are | | | guidel | | | beulah | | | and | | | the | | | provid | | | er | | | should | | | | | | exerci | | | se | | | clinic | | | al | | | judgme | | | nt | | | when | | | provid | | | ing | | | care.P | | | rescri | | | ption | | | Drug | | | Report | | | (12 | | | Mo.)Rx | | | | | | Detail | | | sFill | | | Date | | | Drug | | | Descri | | | ption | | | Qty. | | | Prescr | | | iber | | | CS MED | | | | | | 2019-1 | | | 2-11 | | | HYDROC | | | ODONE- | | | ACETAM | | | IN | | | 7.5-32 | | | 5 60 | | | JONES | | | SUCHAR | | | [place], [place] | | | 2 0 | | | Rx | | | Summar | | | yMetri | | | c | | | Count | | | CS | | | II-V | | | Rx 1 | | | CS-II | | | Rx 1 | | | Quanti | | | ty | | | Dispen | | | sed 60 | | | | | | Unique | | | | | | Prescr | | | ibers | | | 1 | | | Unique | | | | | | Pharma | | | cies 1 | | | | | | Benzos | | | 0 | | | Opioid | | | s 0 | | | Long | | | Acting | | | | | | Opioid | | | s 0 | | | E.D. | | | Visit | | | Count | | | (12 | | | mo.)Fa | | | cility | | | | | | Visits | | | | | | [facility] | | | al 1 | | | Total | | | 1 | | | Note: | | | Visits | | | | | | indica | | | te | | | total | | | known | | | visits | | | . | | | Recent | | | | | | Emerge | | | ncy | | | Depart | | | ment | | | Visit | | | Summar | | | yDate | | | Facili | | | ty | | | City | | | State | | | Type | | | Diagno | | | ses or | | | Chief | | | | | | Compla | | | int | | | May 8, | | | 2020 | | | [place] | | | [facility] [place] | | | [place]ge | | | ncy | | | Arm | | | Pain | | | Recent | | | | | | Inpati | | | ent | | | Visit | | | Summar | | | yNo | | | record | | | ed | | | inpati | | | ent | | | visits | | | . Care | | | | | | TeamPr | | | ovider | | | | | | Specia | | | lty | | | Phone | | | Fax | | | Servic | | | e | | | Dates | | | MIGUEL | | | OWICZ, | | | | | | THEODORE | | | , | | | PHYSIC | | | EDEL | | | ASSIST | | | ANT | | | Physic | | | edel | | | Assist | | | ant | | | (509) | | | [phone] | | | 06 | | | (509) | | | [phone] | | | 04 | | | Curren | | | t | | | KARGAR | | | , | | | ALDO, | | | DO | | | [employer] | | | al | | | Medici | | | ne | | | (541) | | | [phone] | | | 35 | | | (541) | | | 966-05 | | | 74 Mar | | | 6, | | | 2019 - | | | | | | Curren | | | t | | | Sitz, | | | Willia | | | m N MD | | | | | | Primar | | | y Care | | | | | | (541) | | | 278-14 | | | 12 | | | Curren | | | t | | | SITZ, | | | W | | | DAYAMI | | | | | | Primar | | | y Care | | | | | | Curren | | | t | | | Collec | | | tive | | | Portal | | | This | | | patien | | | t has | | | regist | | | ered | | | at the | | | | | | [facility] | | | al | | | Emerge | | | ncy | | | Depart | | | ment | | | For | | | more | | | inform | | | ation | | | visit: | | | | | | https: | | | //secu | | | re.col | | | lectiv | | | emedic | | | al.com | | | /notif | | | [id number] | | | [id number]-[id number] | | | [id number]-42 | | | [id number] | | | [email or web address] | | | [id number] | | | ff | | | PLEASE | | | NOTE: | | | 1. | | | Any | | | care | | | recomm | | | endati | | | ons | | | and | | | other | | | clinic | | | al | | | inform | | | ation | | | are | | | provid | | | ed as | | | guidel | | | beulah | | | or for | | | | | | histor | | | ical | | | purpos | | | es | | | only, | | | and | | | provid | | | ers | | | should | | | | | | exerci | | | se | | | their | | | own | | | clinic | | | al | | | judgme | | | nt | | | when | | | provid | | | ing | | | care. | | | 2. | | | You | | | may | | | only | | | use | | | this | | | inform | | | ation | | | for | | | purpos | | | es of | | | treatm | | | ent, | | | paymen | | | t or | | | health | | | care | | | operat | | | ions | | | activi | | | ties, | | | and | | | subjec | | | t to | | | the | | | limita | | | tions | | | of | | | applic | | | able | | | Collec | | | tive | | | Polici | | | es. | | | 3. | | | You | | | should | | | | | | consul | | | t | | | direct | | | ly | | | with | | | the | | | organi | | | zation | | | that | | | provid | | | ed a | | | care | | | guidel | | | ine or | | | other | | | | | | clinic | | | al | | | histor | | | y with | | | any | | | questi | | | ons | | | about | | | additi | | | onal | | | inform | | | ation | | | or | | | accura | | | cy or | | | comple | | | teness | | | of | | | inform | | | ation | | | provid | | | ed.? | | | 2020 | | | Collec | | | tive | | | Medica | | | l | | | Techn[employer] | | | logies | | | , Inc[employer] | | | - | | | [email or web address] | | | llecti | | | vemedi | | | [email or web address] | | | m | +---+--------+ documented in this encounter Results Uric Acid (11/20/2019 10:30 PM PDT) + +-------+ + + + | Component | Value | Ref Range | Performed | Pathologist | | | | | At | Signature | + +-------+ + + + | Uric Acid | 6.2 | 3.5 - 7.2 mg/dL | [facility] | [facility] | | [facility] | | | | | | [facility] | | + +-------+ + + + + + | Specimen | + + | Blood | + + + + + + + | Performing | Address | City/State/Zipcode | Phone Number | | Organization | | | | + + + + + | [facility] | [address] | [place] | [phone] | | [facility] | | [address] | | + + + + + Sedimentation rate, automated (11/20/2019 10:30 PM PDT) + +-------+ + + + | Component | Value | Ref Range | Performed | Pathologist | | | | | At | Signature | + +-------+ + + + | Erythrocyte | 13 | 0 - 20 mm/hr | [facility] | | | | [facility] | | | [facility] | | | [facility] | | | on Rate | | | LABORATORY | | + +-------+ + + + + + | Specimen | + + | Blood | + + + + + + + | Performing | Address | City/State/Zipcode | Phone Number | | Organization | | | | + + + + + | [facility] | [address] | [place] | [phone] | | [facility] | | [address] | | + + + + + C-Reactive Protein (11/20/2019 10:30 PM PDT) + +-------+ + + + | Component | Value | Ref Range | Performed | Pathologist | | | | | At | Signature | + +-------+ + + + | C-Reactive | 0.7 | 0.0 - 0.9 mg/dL | [facility] | | | Protein | | | [facility] | | | | | | [facility] | | + +-------+ + + + + + | Specimen | + + | Blood | + + + + + + + | Performing | Address | City/State/Zipcode | Phone Number | | Organization | | | | + + + + + | [facility] | [address] | [place], [place] | [phone] | | [facility] | | [address] | | + + + + + Comprehensive Metabolic Panel (11/20/2019 10:30 PM PDT) + + + + + + | Component | Value | Ref Range | Performed | Pathologist | | | | | At | Signature | + + + + + + | Na | 142 | 132 - 143 | [facility] | | | | | mmol/L | [facility] | | | | | | [facility] | | + + + + + + | K | 3.8 | 3.3 - 4.9 | [place] | | | | | mmol/L | [facility] | | | | | | [facility] | | + + + + + + | Cl | 107 | 95 - 108 mmol/L | [facility] | | | | [facility] | | | | | | [facility] | | + + + + + + | CO2 | 19 (L) | 23 - 34 mmol/L | [facility] | [facility] | | | | | | [facility] | | + + + + + + | Anion Gap | 16 | 7 - 16 mmol/L | [facility] | | [facility] | | | | | | [facility] | | + + + + + + | Glucose | 114 (H) | 70 - 110 mg/dL | [facility] | [facility] | [facility] | | | | | | [facility] | | + + + + + + | BUN | 29 (H) | 5 - 26 mg/dL | [facility] | | | | [facility] | | | | | | [facility] | | + + + + + + | Creatinine | 1.33 | 0.70 - 1.40 | [facility] | | | | | mg/dL | [facility] | | | | | | [facility] | | + + + + + + | eGFR if not | 52 (L)Comment: | >=60 | [facility] | | | | GLOMERULAR FILTRATION | mL/min/1.73m2 | [facility] | | | [place] | RATE,ESTIMATED | | [facility] | | | | mL/min/1.03s8Einb than | | LABORATORY | | | | 60 Chronic kidney | | | | | | disease,if found over [...] + + + + | Calcium | 8.7 | 8.3 - 10.0 | [facility] | | | | | mg/dL | [facility] | | | | | | [facility] | | + + + + + + | Albumin | 3.9 | 3.0 - 4.5 g/dL | [facility] | | | | | [facility] | | | | | | [facility] | | + + + + + + | Bilirubin | 0.3 | 0.0 - 1.2 mg/dL | [facility] | | | Total | | | [facility] | | | | | | [facility] | | + + + + + + | Total | 6.9 | 6.6 - 8.5 g/dL | [facility] | | | Protein | | | [facility] | | | | | | [facility] | | + + + + + + | AST | 17 | 0 - 38 U/L | [facility] | | | | [facility] | | | | | | [facility] | | + + + + + + | ALT | 20 | 16 - 63 U/L | [facility] | [facility] | | | | | | [facility] | | + + + + + + | Alkaline | 83 | 46 - 116 U/L | [facility] | | | Phosphatase | | | [facility] | | | | | | [facility] | | + + + + + + | Globulin | 3.0 | 2.4 - 4.5 g/dL | [facility] | | | | | [facility] | | | | | | [facility] | | + + + + + + | Albumin/ | 1.3 | 0.8 - 2.0 | [facility] | | | bulin Ratio | | | [facility] | | | | | | [facility] | | + + + + + + | BUN/Creatin | 21.8 | 7.0 - 24.0 | [facility] | | | ine Ratio | | | [facility] | | | | | | [facility] | | + + + + + + + + | Specimen | + + | Blood | + + + + + + + | Performing | Address | City/State/Zipcode | Phone Number | | Organization | | | | + + + + + | [facility] | [address] | [place] | [phone] | | [facility] | | [address] | | + + + + + CBC with Differential (11/20/2019 10:30 PM PDT) + + + + + + | Component | Value | Ref Range | Performed | Pathologist | | | | | At | Signature | + + + + + + | WBC | 9.8 | 4.6 - 10.5 K/uL | [facility] | [facility] | | [facility] | | | | | | [facility] | | + + + + + + | RBC | 3.88 (L) | 4.36 - 5.83 | [facility] | | | | | M/uL | [facility] | | | | | | [facility] | | + + + + + + | Hemoglobin | 12.5 (L) | 13.1 - 17.4 | [facility] | | | | | g/dL | [facility] | | | | | | [facility] | | + + + + + + | Hematocrit | 36.3 (L) | 39.0 - 51.9 % | [facility] | | | | | [facility] | | | | | | [facility] | | + + + + + + | MCV | 93.6 | 82.0 - 96.0 fL | [facility] | | | | | [facility] | | | | | | [facility] | | + + + + + + | MCH | 32.2 | 27.7 - 32.3 pg | [facility] | | | | | | [facility] | | | | | | [facility] | | + + + + + + | MCHC | 34.4 | 32.0 - 36.9 | [facility] | | | | | g/dL | [facility] | | | | | | [facility] | | + + + + + + | RDW-CV | 14.0 | 0.0 - 17.0 % | [facility] | | | | | [facility] | | | | | | [facility] | | + + + + + + | Platelet | 173 | 150 - 450 K/uL | [facility] | | | Count | | | [facility] | | | | | | [facility] | | + + + + + + | MPV | 9.7 | 9.4 - 12.4 fL | [facility] | | | | | | [facility] | | | | | | [facility] | | + + + + + + | % | 81.8 (H) | 42.0 - 76.0 % | [facility] | | | Neutrophils | | | [facility] | | | | | | [facility] | | + + + + + + | % | 7.9 (L) | 20.0 - 40.0 % | [facility] | | | Lymphocytes | | | [facility] | | | | | | [facility] | | + + + + + + | % Monocytes | 8.4 | 3.0 - 13.0 % | [facility] | | | | | | [facility] | | | | | | [facility] | | + + + + + + | % | 1.3 | 0.0 - 7.0 % | [facility] | | | Eosinophils | | | [facility] | | | | | | [facility] | | + + + + + + | % Basophils | 0.3 | 0.0 - 2.0 % | [facility] | | | | | | [facility] | | | | | | [facility] | | + + + + + + | % Immature | 0.3 | 0.0 - 0.5 % | [facility] | | | Granulocyte | | | [facility] | | | s | | | [facility] | | | | | | [facility] | | + + + + + + | Absolute | 7.99 (H) | 2.80 - 7.70 | [facility] | | | Neutrophils | | K/uL | [facility] | | | | | | [facility] | | + + + + + + | Absolute | 0.77 (L) | 1.20 - 3.30 | [facility] | | | Lymphocytes | | K/uL | [facility] | | | | | | [facility] | | + + + + + + | Absolute | 0.82 (H) | 0.00 - 0.80 | [facility] | | | Monocytes | | K/uL | [facility] | | | | | | [facility] | | + + + + + + | Absolute | 0.13 | 0.00 - 0.70 | [facility] | | | Eosinophils | | K/uL | [facility] | | | | | | [facility] | | + + + + + + | Absolute | 0.03 | 0.00 - 0.20 | [facility] | | | Basophils | | K/uL | [facility] | | | | | | [facility] | | + + + + + + | Absolute | 0.03 | 0.00 - 0.15 | [facility] | | | Immature | | K/uL | [facility] | | | Granulocyte | | | [facility]OSPITAL | | | s | | | LABORATORY | | + + + + + + | % nRBC | 0 | <=0 per 100 | [facility] | | | | | WBCs | [facility] | | | | | | [facility] | | + + + + + + | Absolute | 0.00 | 0.00 - 0.01 | [facility] | | | nRBC | | K/uL | [facility] | | | | | | [facility] | | + + + + + + + + | Specimen | + + | Blood | + + + + + + + | Performing | Address | City/State/Zipcode | Phone Number | | Organization | | | | + + + + + | [facility] | [address] | [place] | [phone] | | [facility] | | [address] | | + + + + + XR Wrist Left 3 + Vw (11/20/2019 10:27 PM PDT) + + | Specimen | + + | | + + + + + | Impressions | Performed At | + + + | 1. No acute finding. 2. Prominent ulnar positive variance. 3. | [facility] | | Carpal radial carpal joint degenerative changes. Dictated by: | | | Rohan Ordonez Electronically Signed by: Rohan Ordonez on | | | 11/21/2019 6:27 AM | | + + + + + + | Narrative | Performed At | + + + | EXAMINATION: XR WRIST LEFT 3 + VW HISTORY: wrist PAIN | [facility] | | COMPARISON STUDY: None TECHNIQUE: 3 view. FINDINGS: | | | No acute bone finding. Ulnar positive variance of approximately 6 | | | mm. Triangular shaped low corticated approximate 9 mm bone density | | | noted adjacent to the distal ulna which may relate to ossicle or | | | remote fracture of ulnar styloid. Bony proliferative changes noted | | | at articulation of hamate and 5th metacarpal. Subcortical cyst | | | formation noted distal scaphoid. Irregularity noted at the | | | radiocarpal articulation articular surface. If concern for acute | | | fracture remains clinically follow-up images in 10 to 14 days | | | recommended. . | | + + + + + | Procedure Note | + + | Reji, Rad Results In - 11/21/2019 6:30 AM PDT EXAMINATION:XR WRIST LEFT 3 + | | VWHISTORY:wrist PAINCOMPARISON STUDY:NoneTECHNIQUE:3 view.FINDINGS:No acute bone | | finding.Ulnar positive variance of approximately 6 mm.Triangular shaped low corticated | | approximate 9 mm bone density noted adjacent to the distal ulna which may relate to | | ossicle or remote fracture of ulnar styloid.Bony proliferative changes noted at | | articulation of hamate and 5th metacarpal. Subcortical cyst formation noted distal | | scaphoid. Irregularity noted at the radiocarpal articulation articular surface.If | | concern for acute fracture remains clinically follow-up images in 10 to 14 days | | recommended. .IMPRESSION: 1. No acute finding.2. Prominent ulnar positive variance.3. | | Carpal radial carpal joint degenerative changes.Dictated by: Rohan OrdonezElectronically | | Signed by: Rohan Ordonez on 11/21/2019 6:27 AM | |TECHNIQUE: | |3 view. | | | |FINDINGS: | |No acute bone finding. | | | |Ulnar positive variance of approximately 6 mm. | | | |Triangular shaped low corticated approximate 9 mm bone density noted adjacent to the distal ulna which may relate to ossicle or remote fracture of ulnar styloid. | | | |Bony proliferative changes noted at articulation of hamate and 5th metacarpal. Subcortical cyst formation noted distal scaphoid. Irregularity noted at the radiocarpal articulation a rticular surface. | |If concern for acute fracture remains clinically follow-up images in 10 to 14 days recommen ded. . | | | |IMPRESSION: | |1. No acute finding. | |2. Prominent ulnar positive variance. | |3. Carpal radial carpal joint degenerative changes. | | | | | |Dictated by: Rohan Ordonez | | | | | + + + +---------+ + + | Performing | Address | City/State/Zipcode | Phone Number | | Organization | | | | + +---------+ + + | [facility] | | | | + +---------+ + + documented in this encounter Visit Diagnoses + + | Diagnosis | + + | Cellulitis of hand - Primary Cellulitis and abscess of hand, except fingers and thumb | + + documented in this encounter Administered Medications + +--------+ + +------+------+ | Medication Order | MAR | Action | Dose | Rate | Site | | | Action | Date | | | | + +--------+ + +------+------+ | amoxicillin-clavulanate | Given | 11/20/19 | 1 tablet | | | | (AUGMENTIN) 500-125 mg per tablet | | 20 11:32 | | | | | 1 tablet 1 tablet, Oral, ONCE, | | PM PDT | | | | | 11/20/19 at 2340, For 1 dose, | | | | | | | Indications: Cellulitis | | | | | | + +--------+ + +------+------+ +---+---+ | | | +---+---+ + +-------+ +-------+---+---+ | ketorolac (TORADOL) injection | Given | 11/20/19 | 15 mg | | | | 15 mg 15 mg, Intravenous, ONCE, | | 20 10:38 | | | | | 11/20/19 at 2240, For 1 dose | | PM PDT | | | | + +-------+ +-------+---+---+ +---+---+ | | | +---+---+ + +-------+ +------+---+---+ | morphine injection 2 mg 2 mg, | Given | 11/20/19 | 2 mg | | | | Intravenous, ONCE, 11/20/19 at | | 20 10:38 | | | | | 2240, For 1 dose | | PM PDT | | | | + +-------+ +------+---+---+ +---+---+ | | | +---+---+ + +-------+ +------+---+---+ | morphine injection 2 mg 2 mg, | Given | 11/20/19 | 2 mg | | | | Intravenous, ONCE, 11/21/19 at | | 20 11:47 | | | | | 0000, For 1 dose | | PM PDT | | | | + +-------+ +------+---+---+ +---+---+ | | | +---+---+ documented in this encounter
--- OUTSIDE RECORDS SUMMARY | ~2019-11-22 | XMS | Encounter Summary ---
Demographics + + + | Address | [address] | | | [place] [address] | + + + | Home Phone [...] Team Providers + +------+ + | Care Cad Intern Name | Role | Phone | + +------+ + | Hay Greco MD | PCP | | + +------+ + Encounter Details +--------+ + + + + | Date | Type | Department | Care Team | Description | +--------+ + + + + | 10/14/ | Orders Only | [facility] | Kemal Damian MD | Rectal cancer (HCC) | | 2014 | | NEUROSURGERY [address] | [address] | (Primary Dx); High | | | | [address] | [place] [address] | cholesterol; | | | | [place], [place] | [phone] | Preoperative testing | | | | [address] | | | | | | [phone] | | | +--------+ + + + [...] on filedocumented as of this encounter Results ECG 12 lead (10/16/2013 8:03 AM PDT) [...] First degree AV block. | + + XR Chest PA and Lateral (10/14/2013 1:58 [...] + | MISCELLANEOUS LAB | | | [phone] | + +---------+ + + | MISCELANIOUS LAB | | | [phone] | + +---------+ + + CBC with Differential (10/14/2013 11:45 [...] | | | | M/uL | [facility] | | | | [...] | | Lymphocytes | | K/uL | [facility] | | | | | | [facility] | | | | | | [facility] - | | | | | | LABORATORY | | + + + + + + | Absolute | 0.40 | 0.00 - 1.00 | [facility] | | | Monocytes | | K/uL | [facility] | | | | | | [facility] | | | | | | CENTER - | | | | | | LABORATORY | | + + + + + + | Absolute | 0.10 | 0.00 - 0.40 | [facility] | | | Eosinophils | | K/uL | [facility] | | | | | | [facility] | | | | | | CENTER - | | | | | | LABORATORY | | + + + + + + | Absolute | 0.10 | 0.00 - 0.10 | [facility] | | | Basophils | | K/uL | [facility] | | | | [...] + | [facility] | [address] | [place], [place] | [phone] | | [facility] | | [address] | | | - LABORATORY | | | | + + + + + | [facility] | [address] | [place], [place] | | | [facility] | | [address], [facility] | | | - LABORATORY | [...] (H) | 7 - 18 mg/dL | [facility] | | | | | | [facility] | | | | | | MEDICAL | | | | | | CENTER - | | | | | | LABORATORY | | + + + + + + | Creatinine | 1.43 (H) | 0.60 - 1.30 | [facility] | | | | | mg/dL | [facility] | | | | | | MEDICAL | | | | | | CENTER - | | | | | | LABORATORY | | + + + + + + | eGFR if not | 49 (L)Comment: | >=60 | [facility] | | | | GLOMERULAR FILTRATION | mL/min/1.73m2 | [facility] | | | [place] | RATE,ESTIMATED | | MEDICAL | | | | mL/min/1.54h4Fqvo than | | CENTER - | | [...] | | | | | mg/dL | [facility] | | | | | | MEDICAL | | | | | | CENTER - | | | | | | LABORATORY | | + + + + + + | BUN/Creatin | 14.0 | | [facility] | | | ine Ratio | | | . [facility] | | | | | | [...] + | [facility] | [address] | [place] | [phone] | | [facility] | | [address] | | | - LABORATORY | | | | + + + + + | [facility] | [address] | [place], [place] | | | [facility] | | [address] [place] [address] | | | - LABORATORY | | [...]
--- OUTSIDE RECORDS SUMMARY | ~2019-11-22 | XMS | Encounter Summary ---
Demographics + + + | Address | [address] | | | [place] [address] | + + + | Home Phone [...] Team Providers + +------+ + | Care Car Repair Supervisor Name | Role | Phone | + +------+ + | Hay Greco MD | PCP | | + +------+ + Reason for Visit + + + | Reason | Comments | + + + | Follow-up | 13M Post op | + + + Encounter Details +--------+---------+ + + + | Date | Type | Department | Care Team | Description | +--------+---------+ + + + | 12/14/ | Office | [facility] | Yaya Kirk | DDD (degenerative | | 2015 | Visit | NEUROSURGERY [address] | [address] | disc disease), | | | | [address] | [address] | lumbar (Primary Dx); | | | | [place], [place] | [place] [address] | Facet arthropathy, | | | | [address] | [phone] | lumbar; S/P lumbar | | | | [phone] | | fusion | +--------+---------+ + + + Social History [...] + + + | Blood Pressure | 152/92 | 12/14/2014 2:21 PM | | | | | PDT | | + + + + + | Pulse | 65 | 12/14/2014 2:21 PM | | | | | PDT | | + + + + + | Temperature | - | - | | + + + + + | Respiratory Rate | 14 | 12/14/2014 2:21 PM | | | | | PDT | | + + + + + | Oxygen Saturation | - | - | | + + + + + | Inhaled Oxygen | - | - | | | Concentration | | | | + + + + + | Weight | 84.4 kg (186 lb) | 12/14/2014 2:21 PM | | | | | PDT | | + + + + + | Height | 175.3 cm (5' 9") | 12/14/2014 2:21 PM | | | | | PDT | | + + + + + | Body Mass Index | 27.47 | 12/14/2014 2:21 PM | | | | | PDT [...] encounter Patient Instructions Patient Instructions Kirk Javier PA - 12/14/2014 2:45 PM PDTToday we discussed c ontinuing with conservative therapy for your low back symptoms. If you have progressive sym ptoms I would recommend a physiatry consult and evaluation. He will continue to follow-up w ith your primary care provider. If you would like us to be involved in your care in the jayant r future please let us know. documented in this encounter Progress Notes Kirk Javier PA - 12/14/2014 2:21 PM PDTFormatting of this note might be differen t from the original. TRENT Vicente [address] [facility] [address] [place] [address] FAX: NEUROSURGERY FOLLOW-UP CHIEF COMPLAINT: Chief Complaint Patient presents with Follow-up 13M Post op HISTORY OF PRESENT ILLNESS: The patient is a 69 y.o. male that had a lumbar fusion around 13 months ago. He returns and overall is doing fairly well. The patient complains of low b ack discomfort in the morning and then again in the evening. He gets very stiff and sore af ter activities. Seems to be a little bit worse and was well he saw him last. He has more p roblems however with his right knee. He did have surgery on his knee but unfortunately he i s had no improvement. Overall the patient feels like he is doing fairly well from a back andlincoln. His symptoms are not bad enough that he would like to consider surgery or further evaluation at this time PAST MEDICAL HISTORY: Past Medical History Diagnosis Date High cholesterol Rectal cancer (HCC) PAST SURGICAL HISTORY: Past Surgical History Procedure Laterality Date Back surgery Rectal cancer Right hand trigger finger Lumbar laminectomy 10/22/2013 L2-3, L3-4 TRANSFORAMINAL LUMBAR INTERBODY FUSION; Laterality: N/A; Surgeon: Kemal lozano MD; Location: [facility] MAIN OR CURRENT MEDICATIONS: Current Outpatient Prescriptions Medication Sig Dispense Refill acetaminophen (TYLENOL) 325 mg tablet Take 325 mg by mouth Daily. Prn pain Jvbxzqezg-Zwudauowlcs-Quo D (GLUCOSAMINE COMPLEX PO) Take 2 tablets by mouth Daily. lovastatin (ALTOPREV) 40 MG 24 hr tablet Take 40 mg by mouth nightly. MULTIPLE VITAMIN PO Take 1 tablet by mouth Daily. naproxen sodium (ALEVE) 220 MG tablet Take 220 mg by mouth Daily. No current facility-administered medications for this visit. ALLERGIES: Allergies Allergen Reactions Chlorhexidine Gluconate Other (See Comments) SKIN REDNESS, RASH Povidone Iodine Rash SOCIAL HISTORY: The patient reports that he has never smoked. He has never used smokeless tobacco. He repo rts that he drinks about 3.6 oz of alcohol per week. He reports that he does not use illicit drugs. FAMILY HISTORY: Family History Problem Relation Age of Onset Cancer Other Uncle & 2 cousins Heart disease Mother Heart disease Father Heart disease Brother Hypertension Brother REVIEW OF SYSTEMS GENERALLY: No fever, no night sweats, no anemia, no fatigue, no recent profound weight ch anges. EYES: No eye problems, no use of corrective lenses, no eye injury, no double vision, no bl indness. EARS, NOSE, AND THROAT: No changes in taste or smell, no hearing difficulty, no ringing in the ears, no ear drainage, no dizziness, no voice changes, no difficulty swallowing, no sig nificant snoring, no sleep apnea, no sinus problems, no major dental work. NEUROLOGICALLY: Please see the review of systems discussed above in the history of present illness. PSYCHIATRIC: No depression, no sleep disorders, no [...] no personal h istory of cancer. RHEUMATOLOGIC: No joint arthritis, no rheumatoid arthritis. INTERIM PHYSICAL EXAMINATION: Blood pressure 152/92, pulse 65, resp. rate 14, height 1.753 m (5' 9"), weight 84.369 kg (1 86 lb). Body mass index is 27.45 kg/(m^2). GENERAL: Cosmo Johnson is in no acute distress with unlabored respirations. HEENT: HEAD/FACE: Normocephalic and atraumatic. There are no areas of recent trauma. CHEST: Clear to ausculation without crackles or wheeze. HEART: Regular rate and rhythm without murmurs. SPINE: The patient s incisions are healed well. EXTREMITIES: No lower extremity edema. NEUROLOGICAL EXAMINATION: MENTAL STATUS: The patient is awake, alert, and oriented. He follows simple and complex commands MOTOR EXAM: Motor strength is 5/5. SENSORY EXAM: The sensory examination decreased sensation light touch over the lateral left thigh. This is been long-standing and not a change REFLEXES: Reflexes are unchanged from his preoperative history and physical. RADIOGRAPHIC REVIEW: The patient s postoperative x-rays show stable instrumentation and alignment and were rev iewed with the patient today during the visit. There has been increased arthrodesis since t he patient s last x-ray which was also reviewed for comparison. ASSESSMENT: S/P lumbar fusion for: Encounter Diagnoses Name Primary? DDD (degenerative disc disease), lumbar Yes Facet arthropathy, lumbar S/P lumbar fusion Past Medical History Diagnosis Date High cholesterol Rectal cancer (HCC) PLAN: Overall, the patient is doing fairly well. He does have some back discomfort in the mornin gs and evenings but this is not to the point where he would like to have any further evaluat ions or treatments at this time I have increased the patient s activities further, and I would like the patient to contin ue to advance with activities as tolerated. I have a permanent restriction of 75 lbs but no other major restrictions at this time. It has been a pleasure caring for this patient to date and hope to see that the patient con tinues to improve over time and can take care of his back long-term. I greatly appreciate t his referral. Hopefully he Can get some relief from his knee symptoms. Did discuss with the patient eval uation and treatment by physiatry. I think this would be a good alternative way to deal wit h his low back and leg symptoms to some degree. He has declined that at this time but he di d let him know that his primary care provider can certainly help arrange this for him in the future. We would be happy to see the patient in the future as well if he needed further ev aluation of his ongoing back pain. ELECTRONICALLY SIGNED BY: TRENT Vicente, 12/14/2014 14:46 documented in this encounter Plan of Treatment [...]
--- OUTSIDE RECORDS SUMMARY | ~2019-11-22 | XMS | Encounter Summary ---
Demographics + + + | Address | [address] | | | [place] [address] | + + + | Home Phone [...] + + + | Author | [facility] | + + + | Organization | [facility] | + + + | Address | Unknown | + + + | Phone | Unavailable | + + + Support + + + + + | Name | Relationship | Address | Phone | + + + + + | Ricarda Johnson | ECON | [address] | | | | | [place] | | | | | [address] | | + + + + + Care Team Providers + +------+ + | Care Clay Roaster Name | Role | Phone | + +------+ + | Hay Greco MD | PCP | | + +------+ + Encounter Details +--------+ + + + + | Date | Type | Department | Care Team | Description | +--------+ + + + + | 04/07/ | Hospital | Dermatopathology | | | | 2011 | Encounter | [id number] | | | | | | Mailcode: CH16D | | | | | | [facility] | | | | | | and Healing, | | | | | | Building [address], | | | | | | Floor [place], [place] | | | | | | [address] | | | | | | [phone] | | | +--------+ + + + [...] + + + +---------+ + + | [place]-3 Fatty | Take by mouth. | | [...] + + | DERMATOPATHOLOGY(WET | Routin | 04/07/2012 | | Results for this | | [facility]) | e | | | procedure are in the | | | | | | results section. | + +--------+ + + + documented in this encounter Results DERMATOPATHOLOGY(WET [facility]) (04/07/2012) + + + + + + | Component | Value | Ref Range | Performed | Pathologist | | | | | At | Signature | + + + + + + | DERMATOPATH | SOURCE OF SPECIMEN:A Rt. | | [facility] | | | OLOGY(WET | lateral neck, shave | | DERMATOPATH | | | MNT) | biopsy CLINICAL | | OLOGY | | | | DESCRIPTION:6X7 mm | | | | | | variegated brown macule; | | | | | | r/o atypical nevus. | | | | | | GROSS [...] an | | | | | | irregular shaveof cabezas | | | | | | skin [id number]. The | | | | | | surgical margin is inked | | | | | | green; the tissue | | | | | | isquadrisected, and | | | | | | entirely submitted in | | | | | | cassette A1. | | | | | | MICROSCOPIC | | | | | | DESCRIPTION:There is a | | | | | | subtle, not entirely | | | | | | well circumscribed, | | | | | | predominatelyjunctional | | | | | | melanocytic neoplasm | | | | | | characterized by | | | | | | confluent nest as well | | | | | | assingle melanocytes | | | | | | distributed somewhat | | | | | | irregularly primarily | | | | | | along thebasal layer, as | | | | | | well as extending | | | | | | partially down | | | | | | follicular | | | | | | epithelium.Most of the | | | | | | melanocytic nuclei are | | | | | | moderately large, some | | | | | | of them | | | | | | arehyperchromatic, and | | | | | | most have amphophilic | | | | | | cytoplasm with melanin. | | | | | | There isabundant solar | | | | | | elastosis in the upper | | | | | | dermis where there is | | | | | | mild fibrosis,a | | | | | | moderately dense | | | | | | lymphocytic infiltrate, | | | | | | and melanophages. 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 NOTE: The | | | | | | melanoma in situ extends | | | | | | to the peripheral and, | | | | | | via | | | | | | follicularepithelium, | | | | | | closely to the deep | | | | | | surgical margins. | | | | | | KPW:emr04/10/12 My | | | | | | [...] Howe | | | | | | DaniellePathologistMarcki | | | | | | marco Signed 04/10/2012 | | | | | | 5:48PM | | | | + + + + + + + + | Specimen | + + | | + + + + + + + | Performing | Address | City/State/Zipcode | Phone Number | | Organization | | | | + + + + + | [facility] | Mailcode CH5D [address] | [place] [address] | | | DERMATOPATHOLOGY | [address] | | | + + + + + documented in this encounter Visit Diagnoses Not on filedocumented in this encounter
--- OUTSIDE RECORDS SUMMARY | ~2019-11-22 | XMS | Encounter Summary ---
Demographics + + + | Address | [address] | | | [place] [address] | + + + | Home Phone | | + + + | Preferred Language | Unknown | + + + | Marital Status | | + + + | Yazdanism Affiliation | [id number] | + + + [...] Team Providers + +------+ + | Care Biofuels Research Scientist Name | Role | Phone | + [...] | | | | | | | [place] | | | | | | | ARTHRODESIS | | | | | | | POSTERIOR/PO | | | | | | | STEROLATERAL | | | | | | | LUMBAR [place] | | | | | | | LUMBAR SPINE | | | | | | | | | | | | | | FUSION,ANTER | | | | | | | APPRCH [place] | | | | | | | [...] + + | 06/19/ | Surgery | [facility] | eKmal Damian MD | L1-2 LAIF w/ Lateral | | 2017 | | MED CTR OR INTRA OP | [address] | Plating | | | | [address] | [place] [address] | | | | | [place] | [phone] | | | | | [address] | | | | | | [phone] | | | +--------+---------+ + + + [...] might be different from t arturo original. [facility] - [facility] NEUROSURGERY DISCHARGE SUMMARY Patient Name: Cosmo Johnson [...] month post op appointment before your appointment. [id number] [employer]. [address] [place] [address]. All righ ts reserved. This information is [...] might be differ ent from the original. [facility] NEUROSURGERY PROGRESS NOTE PATIENT NAME: Cosmo Johnson [...] has no apparent deficits with short or mcfp memory. MOTOR EXAM: Motor strength is stable [...] Ibarra PA-C - 06/20/2017 7:40 AM PST [facility] NEUROSURGERY PROGRESS NOTE PATIENT NAME: Cosmo Johnson [...] has no apparent deficits with short or intermission coordinator memory. MOTOR EXAM: Motor strength is stable [...] | | | Scrub | | | [place] | | | (Wire | | | [...] | | [place] | | | [place] | | | | | | registered nurse fetal | | | ep: | | | Man | | | Conkli | | | n | +---+--------+ | | | | | Specia | | | l | | | Needs | | | | | | Implan | | | ts: | | | XLIFTa | | | ble: | | | [place] | | | [place] | | | | | | registered nurse fetal | | | ep: | | | [...] | | | DAILY, First dose on [facility] 06/20/17 | | AM PST | | [...]
--- OUTSIDE RECORDS SUMMARY | ~2019-11-22 | XMS | Encounter Summary ---
Demographics + + + | Address | [address] | | | [place] [address] | + + + | Home Phone | | + + + | Preferred Language | Unknown | + + + | Marital Status | | + + + | Church Affiliation | PRE | + + + | Race | White | + + + | Ethnic Group | Not or | + + + Author + + + | Author | [facility] | + + + | Organization | [facility] | + + + | Address | Unknown | + + + | Phone | Unavailable | + + + Support + + + + + | Name | Relationship | Address | Phone | + + + + + | Ricarda Johnson | ECON | [address] | | | | | [place] | | | | | [address] | | + + + + + Care Team Providers + +------+ + | Care Sole Molding Machine Operator Name | Role | Phone | + +------+ + | Hay Greco MD | PCP | | + +------+ + Encounter Details +--------+ + + + + | Date | Type | Department | Care Team | Description | +--------+ + + + + | 08/28/ | Abstract | Digestive Health | Edgar Hampton, | | | 2011 | | [place] [facility] [address] | [address] | | | | | [address] | [address] | | | | | Mailcode: Center | [place], [place] | | | | | for Health and | [address] | | | | | [facility], [facility] 2 | [phone] | | | | | [place], [place] | | | | | | [address] | | | | | | [phone] | | | +--------+ + + + [...]
--- OUTSIDE RECORDS SUMMARY | ~2019-11-22 | XMS | Encounter Summary ---
Demographics + + + | Address | [address] | | | [place] [address] | + + + | Home Phone | | + + + | Preferred Language | Unknown | + + + | Marital Status | | + + + | Rastafari Affiliation | PRE | + + + | Race | White | + + + | Ethnic Group | Not or | + + + Author + + + | Author | [facility] | + + + | Organization | [facility] | + + + | Address | Unknown | + + + | Phone | Unavailable | + + + Support + + + + + | Name | Relationship | Address | Phone | + + + + + | Ricarda Johnson | ECON | [address] | | | | | [place] | | | | | [address] | | + + + + + Care Team Providers + +------+ + | Care Safety And Occupational Health Manager Name | Role | Phone | + +------+ + | Hay Greco MD | PCP | | + +------+ + Encounter Details +--------+ + + + + | Date | Type | Department | Care Team | Description | +--------+ + + + + | 12/23/ | Abstract | Digestive Health | Edgar Hampton, | | | 2012 | | [place] [facility] [address] | [address] | | | | | [address] | [address] | | | | | Mailcode: Center | [place], [place] | | | | | for Health and | [address] | | | | | [facility], [facility] 2 | [phone] | | | | | [place], [place] | | | | | | [address] | | | | | | [phone] | | | +--------+ + + + [...]
--- OUTSIDE RECORDS SUMMARY | ~2019-11-22 | XMS | Encounter Summary ---
Demographics + + + | Address | [address] | | | [place] [address] | + + + | Home Phone | | + + + | Preferred Language | Unknown | + + + | Marital Status | | + + + | Scientologist Affiliation | PRE | + + + [...] + | Ricarda Johnson | ECON | [address] | | | | | [place] | | | | | [address] | | + + + + + Care Team Providers + +------+ + | Care Print Inspector Name | Role | Phone | + +------+ + | Hay Greco MD | PCP | | + +------+ + Encounter Details +--------+ + + + + | Date | Type | Department | Care Team | Description | +--------+ + + + + | 04/23/ | Hospital | Dermatopathology | | | | 2011 | Encounter | [id number] | | | | | | Mailcode: CH16D | | | | | | [facility] | | | | | | and Healing, | | | | | | Building , | | | | | | Floor [place], [place] | | | | | | [address] | | | | | | [phone] | | | +--------+ + + + [...] + + + +---------+ + + | [facility]-3 Fatty | Take by mouth. | | [...] + + | DERMATOPATHOLOGY(WET | Routin | 04/23/2012 | | Results for this | | [facility]) | e | | | procedure are in the | | | | | | results section. | + +--------+ + + + documented in this encounter Results DERMATOPATHOLOGY(WET [facility]) (04/23/2012) + + + + + + | [...] | | OLOGY | | | | DESCRIPTION:Bx- proven | | | | | | MIS; scar 2nd degree | | | | | | shave bx; spec. marked | | | | | | [...] | | | | | ellipse of brownskin | | | | | | [id number]. The specimen | | | | | | is oriented by a suture | | | | | | at one apex, which | | | | | | isdesignated as | | | | | | anteriorly by the | | | | | | surgeon. With the | | | | | | suture in the | | | | | | 12:00position, the | | | | | | specimen is inked blue | | | | | | from 12-3-6:00 and green | | | | | | from6-9-12:00. The | | | | | | tissue is serially | | | | | | sectioned from 12:00 to | | | | | | 6:00 andsubmitted | | | | | | respectively in | | | | | | cassettes A1 | | | | | | | | | | | | A3. MICROSCOPIC | | | | | | DESCRIPTION:In the right | | | | | | lateral neck excision | | | | | | specimen there is a | | | | | | central dermal scar.In | | | | | | one of the sections in | | | | | | block A2, there is a | | | | | | subtle, | | | | | | junctionalmelanocytic | | | | | | proliferation composed | | | | | | of rare nests of | | | | | | melanocytes | | | | | | andpredominately | | | | | | increased in numbers | | | | | | single melanocytes along | | | | | | the epidermalbasal cell | | | | | | layer. Occasional | | | | | | single melanocytes are | | | | | | noted in the midspinous | | | | | | cell layer. The | | | | | | melanocytic nuclei are | | | | | | moderately large, some | | | | | | arepleomorphic and | | | | | | hyperchromatic and the | | | | | | cells have amphophilic | | | | | | cytoplasm. 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 | | | | | | NOTE: In one of | | | | | | the sections adjacent to | | | | | | scar, there is a subtle | | | | | | junctionalmelanocytic | | | | | | proliferation which most | | | | | | likely represents a | | | | | | portion of theoriginal | | | | | | melanocytic neoplasm | | | | | | given its proximity to | | | | | | the scar. TheATYPICAL | | | | | | JUNCTIONAL MELANOCYTIC | | | | | | PROLIFERATION focally | | | | | | extends to thesuperior | | | | | | (9:00) peripheral | | | | | | surgical margin and | | | | | | within a millimeter or | | | | | | sofrom the inferior | | | | | | (3:00) peripheral | | | | | | surgical margin. | | | | | | Additional treatmentto | | | | | | ensure complete removal | | | | | | would be prudent. | | | | | | VBK:emr10/16/12 My | | | | | | [...] Prado | | | | | | DaniellePathologistElectroni | | | | | | marco Signed 04/29/2012 | | | | | | 5:56PM | | | | + + + + + + + + | Specimen | + + | | + + + + + + + | Performing | Address | City/State/Zipcode | Phone Number | | Organization | | | | + + + + + | [facility] | Mailcode CH5D [address] | [place] [address] | | | DERMATOPATHOLOGY | [address] | | | + + + + + documented in this encounter Visit Diagnoses Not on filedocumented in this encounter
--- OUTSIDE RECORDS SUMMARY | ~2019-11-22 | XMS | Encounter Summary ---
Demographics + + + | Address | [address] | | | [place] [address] | + + + | Home Phone | | + + + | Preferred Language | Unknown | + + + | Marital Status | | + + + | Voodoo Affiliation | PRE | + + + | Race | White | + + + | Ethnic Group | Not or | + + + Author + + + | Author | [facility] | + + + | Organization | [facility] | + + + | Address | Unknown | + + + | Phone | Unavailable | + + + Support + + + + + | Name | Relationship | Address | Phone | + + + + + | Ricarda Johnson | ECON | [address] | | | | | [place] | | | | | [address] | | + + + + + Care Team Providers + +------+ + | Care Infection Prevention Coordinator Name | Role | Phone | + +------+ + PCP | Unavailable | + +------+ + Reason for Referral Consultation (Urgent) + +--------+ + + + + | Status | Reason | Specialty | Diagnoses / | Referred By | Referred To | | | | | Procedures | Contact | Contact | + +--------+ + + + + | Canceled | | Gastroenterol | Diagnoses | Herzig, | Gas Endo | | | | ogy | 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) | Baltazar Chirinos | Cavalier | | | | | Procedures | [address] | [address], [address] | | | | | CONSULT TO | [place], [place] | floor | | | | | GI | [address] | [facility] [place] | | | | | PROCEDURE | Phone: | [phone] | | | | | UNIT: | [phone] | Phone: | | | | | FLEXIBLE | Fax: | [phone] | | | | | SIGMOIDOSCOP | [phone] | Fax: | | | | | Y | | | + +--------+ + + + + Encounter Details +--------+ + + + + | Date | Type | Department | Care Team | Description | +--------+ + + + + | 04/25/ | 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
--- OUTSIDE RECORDS SUMMARY | ~2019-11-22 | XMS | Encounter Summary ---
Demographics + + + | Address | [address] | | | [place] [address] | + + + | Home Phone | | + + + | Preferred Language | Unknown | + + + | Marital Status | | + + + | Synagogue Affiliation | 1077 | + + + [...] Team Providers + +------+ + | Care Mud Mixer Operator Name | Role | Phone | + +------+ + | Hay Greco MD | PCP | | + +------+ + Encounter Details +--------+ + + + + | Date | Type | Department | Care Team | Description | +--------+ + + + + | 07/14/ | Hospital | [facility] | Pj Riggs | | | 2012 | Encounter | MED CTR XRAY [address] | MD Lucrecia [address] | | | | | [place] | [place], [place] | | | | | [place] [address] | [address] | | | | | [phone] | | | +--------+ + + + [...] + +--------+ + + + | FL EPIDURAL STEROID | Routin | 07/14/2013 | | Results for this | | INJECTION LUMBAR | e | 6:12 PM | | procedure are in the | | TRANSFORAMINAL | | PST | | results section. | + +--------+ + + + documented in this encounter Results FL BERNIE Lumbar Transforaminal (07/14/2013 6:12 PM PST) + + | Specimen | + + | | + + + + + | Narrative | Performed At | + + + | [facility] | [place] | | Department [address] [facility] | [facility] | | [ rep [address]] [ rep [facility] | | st zip] Signed | - IMAGING | | | | | Patient Name: TYLOR OLIVERA | | | Physician: BHUPINDER : 1945 Age: 68 Sex: M Unit | | | #: [id number] Exam Date: 07/14/13 Location: | | | IMG.INV Report #: [id number] Page: | | | %(RAD)RES..mtdd.print.filter("pg") of %(RAD) | | | RES..mtdd.print.filter("tpg") | | | | | | Accession Number: [id number] | | | EPIDURAL STEROID INJECTION, 07/14/2013 CLINICAL HISTORY: | | | ICD-9 CODE 724.4 LUMBAR RADICULOPATHY Mr. Tylor Ronquillo | | | Alex presents to the fluoroscopy suite for a | | | fluoroscopically-guided left L3-L4 and left L4-5 transforaminal | | | epidural steroid injection as part of conservative management for | | | chronic pain with lumbar radiculopathy and degenerative disk | | | disease. After informed consent was obtained, the patient laid in | | | the prone position on the fluoroscopy table. The area was identified | | | under fluoroscopic guidance. The areas were prepped and draped in | | | sterile fashion. A 25-gauge, 1.5-inch needle was inserted into | | | each region and approximately 3 mL of buffered 1% lidocaine was | | | infused and a 22-gauge spinal needle was inserted into the posterior | | | superior transforaminal space at each level and advanced into the | | | epidural space under fluoroscopic guidance. Confirmation into the | | | epidural space was obtained with infusion of approximately 1 mL of | | | Isovue contrast which showed epidural flow as well as nerve sheath | | | flow. Then, a combination of 2 mL of 1% lidocaine and 2 mL of 6 | | | mg/mL Celestone was infused, divided between the two levels. The | | | patient tolerated the procedure well without complications. Pre- | | | and post-procedure blood pressures were stable. The patient was | | | given verbal as well as written followup instructions. | | | Prior to the start of the procedure, the following were performed and | | | verified, including correct patient identity, correct site/side | | | marked and visible, agreement on the procedure to be done, correct | | | patient positioning and an accurate procedure consent form. Any | | | safety precautions based on clinical history and/or medication use | | | have been addressed. I personally performed the procedure | | | above. <<Signature on File>> | | | Pj Singer | | | MD Oneil07/16/13 2130 <Electronically signed by Pj Simmons | Troy Riggs MD> Pj Riggs MD 07/14/13 1812 | | | Acquisition Consultant: Kacy San07/15/13 2720 | | | | | + + + + + + + + | Performing | Address | City/State/Zipcode | Phone Number | | Organization | | | | + + + + + | [facility] | [address] | [place] | [phone] | | [facility] | | [address] | | | - IMAGING | | | | + + + + + documented in this encounter Visit Diagnoses Not on filedocumented in this encounter
--- OUTSIDE RECORDS SUMMARY | ~2019-11-22 | XMS | Encounter Summary ---
Demographics + + + | Address | [address] | | | [place] [address] | + + + | Home Phone | | + + + | Preferred Language | Unknown | + + + | Marital Status | | + + + | Anglican Affiliation | 1077 | + + + [...] Team Providers + +------+ + | Care Negative Stripper Name | Role | Phone | + +------+ + | Aldo Frank DO | PCP | | + +------+ + Reason for Visit +--------+ + | Reason | Comments | +--------+ + | Other | | +--------+ + Encounter Details +--------+ + + + + | Date | Type | Department | Care Team | Description | +--------+ + + + + | 08/12/ | Telephone | [facility] [place] | Kemal Damian MD | Other | | 2019 | | NEUROSURGERY [address] | [address] | | | | | [address] | [place] [address] | | | | | [place], [place] | [phone] | | | | | [address] | | | | | | [phone] | | | +--------+ + + + [...]
--- OUTSIDE RECORDS SUMMARY | ~2019-11-22 | XMS | Encounter Summary ---
Demographics + + + | Address | [address] | | | [place] [address] | + + + | Home Phone | | + + + | Preferred Language | Unknown | + + + | Marital Status | | + + + | Gnosticist Affiliation | 1077 | + + + | Race | Unknown | + + + | Ethnic Group | Unknown | + + + Author + + + | Author | [facility] | | | and [place] | + + + | Organization | [facility] | | [...] Team Providers + +------+ + | Care Bleaching Supervisor Name | Role | Phone | [...] | | Radiology | Diagnoses | | | | | | | Chronic | Oneil, | | | | | | bilateral | Pj Singer MD | | | | | | low back | [address] | | | | | | pain without | [place] | | | | | | sciatica | [place] | | | | | | S/P lumbar | [address] | | | | | | fusion | Phone: | | | | | | Procedures | [phone] | | | | | | IR Pain | Fax: | | | | | | Management/S | [phone] | | | | | | keletal | | | +--------+--------+ + + + + Encounter Details +--------+ + + + + | Date | Type | Department | Care Team | Description | +--------+ + + + + | 02/11/ | Orders Only | [facility] [place] | Pj Riggs | Chronic bilateral | | 2019 | | PHYSIATRY [address] | MD Lucrecia [address] | low back pain | | | | [address] | [place] | without sciatica | | | | [place], [place] | [address] | (Primary Dx); S/P | | | | [address] | | lumbar fusion | | | | [phone] | | | +--------+ + + + [...] on filedocumented as of this encounter Results IR Pain Management/Skeletal (03/25/2019 2:40 PM PDT) + + | Specimen | + + | | + + + + + | Narrative | Performed At | + + + | | [facility] | | 03/25/2019 Spinal Cord Stimulator Trial Lead Placement CLINICAL | | | HISTORY: LUMBAR RADICULOPATHY AND FAILED BACK SYNDROME Cosmo Pace | | | Alex presents to the fluoroscopy suite for | | | fluoroscopically-guided spinal cord stimulator trial lead placement. | | | This procedure is being performed as part of conservative management | | | for chronic pain with lumbar radiculopathy and failed back syndrome. | | | Prior to the start of the procedure, the following were performed | | | or verified, including correct patient identity, correct site/side | | | marked and visible, agreement on the procedure to be done, correct | | | patient positioning and an accurate procedure consent form. Any safety | | | precautions based on clinical history and/or medication use were | | | addressed. After informed consent was obtained, the patient laid in | | | the prone position on the fluoroscopy table. 1.5 grams of Ancef was | | | administered via IV prior to incision. Conscious sedation was | | | administered by the radiology nurse under my direction according to | | | [facility] conscious sedation protocol. The area for the first lead | | | placement was identified under fluoroscopic guidance. The target was | | | the T11-T12 interspace. The area was prepped and draped in sterile | | | fashion. A 25-gauge, 1.5-inch needle was inserted into this region and | | | approximately 5 mL of buffered 1% lidocaine was infused. Then a | | | 25-gauge spinal needle was advanced into the same region and | | | additional lidocaine was infused to provide deeper anesthesia. A 14 | | | gauge Touhy needle was then inserted approximately 1.5 vertebral | | | bodies below the target level just lateral of midline on the right | | | and was angled down toward the interlaminar space of T11-T12. A | | | lateral view confirmed that we were approaching the target depth. We | | | returned the c-arm to the AP view and the needle was slowly advanced | | | into the epidural space until confirmation of epidural access was | | | obtained with loss of resistance. The electrode array was then | | | advanced through the introducer needle into the epidural space and | | | carefully advanced to the top of T8 along a midline trajectory. I | | | then placed a second electrode on the left, entering at the T11-T12 | | | level then advanced left of midline to the middle of the T9 level in | | | a similar fashion. The introducer needles were then carefully | | | removed while leaving the electrodes in place. Repeat imaging | | | confirmed appropriate placement and the electrodes were attached | | | securely to the skin with steri strips and covered with a large | | | Tegaderm. The junction boxes were attached securely on the left side. | | | The patient was in stable condition when he returned to the recovery | | | area. Further programming and education of the patient was performed | | | while the patient was in recovery. He will follow-up in the office | | | at the end of the trial period in one week. I personally performed | | | the procedure above. Conscious Sedation Start: 13:13Conscious | | | Sedation End: 14:40Estimated blood loss: 50 mL or lessComplications: | | | NoneFindings: As expectedAnesthesia: Local 1% Lidocaine and Moderate | | | Conscious Sedation with 5 mg Versed and 75 mcg Fentanyl | | |week. | | | | | |I personally performed the procedure above. | | | | | | | | |Conscious Sedation Start: 13:13 | | |Conscious Sedation End: 14:40 | | |Estimated blood loss: 50 mL or less | | |Complications: None | | |Findings: As expected | | |Anesthesia: Local 1% Lidocaine and Moderate Conscious Sedation with 5 mg | | |Versed and 75 mcg Fentanyl | | + + + + +---------+ + + | Performing | Address | City[facility]State[facility] | Phone Number | | Organization | | | | + +---------+ + + | [facility] | | | | + +---------+ + + documented in this encounter Visit Diagnoses + + | Diagnosis | + + | Chronic bilateral low back pain without sciatica - Primary | + + | S/P lumbar fusion Arthrodesis status | + + documented in this encounter"
--- OUTSIDE RECORDS SUMMARY | ~2019-11-22 | XMS | Encounter Summary ---
Demographics + + + | Address | [address] | | | [place] [address] | + + + | Home Phone | | + + + | Preferred Language | Unknown | + + + | Marital Status | | + + + | Worship Affiliation | 1077 | + + + | Race | Unknown | + + + | Ethnic Group | Unknown | + + + Author + + + | Author | [facility] | | | and [place] | + + + | Organization | [facility] | | | [...] Providers + +------+ + | Care Boiler Maker Name | Role | Phone | + +------+ + | Hay Greco MD | PCP | | + +------+ + Encounter Details +--------+ + + + + | Date | Type | Department | Care Team | Description | +--------+ + + + + | 02/07/ | [facility] | [facility] | Kemal Daiman MD | DDD (degenerative | | 2017 | Encounter | MED CTR XRAY [address] | [address] | disc disease), | | | | [place] | [place] [address] | lumbar; Facet | | | | [place] [address] | [phone] | arthropathy, lumbar | | | | [phone] | | | +--------+ + + + [...] | | | 325 mg tablet | Three times a week. | | | | 7 | + [...] + + + +---------+ + + | oxyCODONE | Take 2.5 mg by mouth | | 0 | | | | (ROXICODONE) 5 mg | Twice a week. | | | | 7 | | [...] + + + | XR LUMBAR SPINE 4 + | Routin | 02/07/2017 | DDD (degenerative | Results for this | | VW | e | 1:36 PM | disc disease), | procedure are in the | | | | PDT | lumbar Facet | results section. | | | | | arthropathy, lumbar | | + +--------+ + + + documented in this encounter Results XR Lumbar Spine 4 [...] + + | [facility] | [address] | [place] | [phone] | | [facility] | | [address] | | | - IMAGING | | [...]
--- OUTSIDE RECORDS SUMMARY | ~2019-11-22 | XMS | Encounter Summary ---
Demographics + + + | Address | [address] | | | [place] [address] | + + + | Home Phone | | + + + | Preferred Language | Unknown | + + + | Marital Status | | + + + | Buddhism Affiliation | PRE | + + + | Race | White | + + + | Ethnic Group | Not or | + + + Author + + + | Author | [facility] | + + + | Organization | [facility] | + + + | Address | Unknown | + + + | Phone | Unavailable | + + + Support + + + + + | Name | Relationship | Address | Phone | + + + + + | Ricarda Johnson | ECON | [address] | | | | | [place] | | | | | [address] | | + + + + + Care Team Providers + +------+ + | Care Core Rescuer Name | Role | Phone | + +------+ + | Hay Greco MD | PCP | | + +------+ + Encounter Details +--------+ + + + + | Date | Type | Department | Care Team | Description | +--------+ + + + + | 09/18/ | Abstract | Infectious | Rona Kulkarni | | | 2011 | | Diseases at [facility] | JUNI Pace [address] | | | | | [address] | [address] | | | | | Loop Physician's | [place], [place] | | | | | Brian, [facility] floor | [address] | | | | | [place], [place] | [phone] | | | | | [address] | | | | | | [phone] | | | +--------+ + + + [...] + | CBC, WITH | Routin | 09/19/2011 | | Results for this | | DIFFERENTIAL | e | 10:05 AM | | procedure are in the | | | | PST | | results section. | + +--------+ + + + | COMPLETE METABOLIC | Routin | 09/19/2011 | | Results for this | | SET | e | 10:05 AM | | procedure are in the | | (NA,K,CL,CO2,BUN,CRE | | PST | | results section. | | AT,GLUC,CA,AST,ALT,B | | | | | | HUMERA TOTAL,ALK | | | | | | PHOS,ALB,PROT TOTAL) | | | | | + +--------+ + + + documented in this encounter Results COMPLETE METABOLIC SET (NA,K,CL,CO2,BUN,CREAT,GLUC,CA,AST,ALT,BILI TOTAL,ALK PHOS,ALB,PROT TOTAL) (09/19/2011 10:05 AM PST) + +-------+ + + + [...] +-------+ + + + | CREATININE | 1.24 | mg/dL | NON [facility] | | [...] + + + | ALK PHOS | 89 | U/L | NON [facility] | | [...] +-------+ + + + | CHLORIDE, | 109 | mmol/L | NON [facility] | | [...] + +---------+ + + CBC, WITH DIFFERENTIAL (09/19/2011 10:05 AM PST) + + + + + + | Component | Value | Ref Range | Performed | Pathologist | | | | | At | Signature | + + + + + + | WHITE CELL | 3.7 | K/cu mm | NON [facility] | | | COUNT | | | LAB | | + + + + + + | RED CELL | 3.21 | M/cu mm | NON [facility] | | | COUNT | | | LAB | | + + + + + + | HEMOGLOBIN | 10.5 (A) | 13.5 - 17.5 | NON [facility] | | | | | g/dL | LAB | | + + + + + + | HEMATOCRIT | 30.3 | % | NON [facility] | | | | | | LAB | | + + + + + + | MCV | 94.6 | fL | NON [facility] | | [...] + + | PLATELET | 183 | K/cu mm | NON [facility] | | | COUNT | | | LAB | | + + + + + + | NEUTROPHIL | 78.5 | % | NON [facility] | | | % | | | LAB | | + + + + + + | LYMPHOCYTE | 9.8 | % | NON [facility] | | | % | | | LAB | | + + + + + + | MONOCYTE % | 6.2 | % | NON [facility] | | | | | | LAB | | + + + + + + | EOS % | 3.5 | % | NON [facility] | | | | | | LAB | | + + + + + + | BASO % | 2 | % | NON [facility] | | | | | | LAB | | + + + + + + | RDW | 13.3 | % | NON [facility] | | [...] + + + | ESR (SED | 45 | | NON [facility] | | | [...]
--- OUTSIDE RECORDS SUMMARY | ~2019-11-22 | XMS | Encounter Summary ---
Demographics + + + | Address | [address] | | | [place] [address] | + + + | Home Phone [...] Team Providers + +------+ + | Care Chief Nurse Anesthetist Name | Role | Phone | + [...] + + | 06/26/ | Office | [facility] | Brian Noble, | Status post | | 2019 | Visit | NEUROSURGERY [address] | PA-C [address] | insertion of spinal | | | | [address] | [address] [place] | cord stimulator | | | | [place] | [place] [address] | (Primary Dx) | | | | [address] | [phone] | | | | | [phone] | | | +--------+---------+ + + + [...] questions or concerns ple ase contact the [facility] or the physiatry clinic. POST-OP INSTRUCTIONS: Take [...] 9:15 AM PST Brian Noble PA-C [address] [facility], [address] [place] [address] FAX: [phone] NEUROSURGERY FOLLOW-UP CHIEF COMPLAINT: Chief Complaint Patient [...] Laterality: N/A; Surgeon: Kemal Damian MD; Location: [facility] MAIN OR LUMBAR LAMINECTOMY Dr. Tavarez LUMBAR SPINE SURGERY N/A 06/19/2017 Procedure: L1-2 LAIF w/ Lateral Plating; Surgeon: Kemal Damian MD; Location: [facility] MAIN OR OTHER SURGICAL HISTORY N/A 06/18/2019 Procedure: PLACEMENT SPINAL CORD STIMULATOR; Surgeon: Geraldo Bass MD; Location: [facility] MAIN OR CT NJX DX/THER SBST EPIDURAL/SUBRACH CERV/THORACIC N/A 03/25/2019 Procedure: SCS; Surgeon: Pj Riggs MD; Location: [facility] INTERVENTIONAL RADIOLOGY SMALL INTESTINE SURGERY 2011 Rectal [...] hope that they can avoid additional surgery. 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
--- OUTSIDE RECORDS SUMMARY | ~2019-11-22 | XMS | Encounter Summary ---
Demographics + + + | Address | [address] | | | [place] [address] | + + + | Home Phone [...] Providers + +------+ + | Care Quality Director Name | Role | Phone | + +------+ + | Hay Greco MD | PCP | | + +------+ + Reason for Visit + + + | Reason | Comments | + + + | Follow-up | Post op | + + + Encounter Details +--------+---------+ + + + | Date | Type | Department | Care Team | Description | +--------+---------+ + + + | 07/30/ | Office | [facility] | Gucci Javierlas | Facet arthropathy, | | 2015 | Visit | NEUROSURGERY [address] | [address] | lumbar (Primary Dx); | | | | [address] | [address] | DDD (degenerative | | | | [place] | [address] | disc disease), | | | | [address] | [phone] | lumbar; S/P lumbar | | | | [phone] | | fusion | +--------+---------+ + + [...] + + + | Blood Pressure | 158/94 | 07/30/2014 12:24 PM | | | | | PST | | + + + + + | Pulse | 58 | 07/30/2014 12:24 PM | | | | | PST | | + + + + + | Temperature | - | - | | + + + + + | Respiratory Rate | 14 | 07/30/2014 12:24 PM | | | | | PST | | + + + + + | Oxygen Saturation | - | - | | + + + + + | Inhaled Oxygen | - | - | | | Concentration | | | | + + + + + | Weight | 83.9 kg (185 lb) | 07/30/2014 12:24 PM | | | | | PST | | + + + + + | Height | 175.3 cm (5' 9") | 07/30/2014 12:24 PM | | | | | PST | | + + + + + | Body Mass Index | 27.32 | 07/30/2014 12:24 PM | | | | | PST [...] Instructions Patient Instructions Kirk Javier PA - 07/30/2014 12:42 PM PSTContinue to increase your activities. We are planning to get another set of x-rays in about 4 months and see yo u back in the office to check on your progress. Please let us know if you're having increas ing problems documented in this encounter Progress Notes Kirk Javier PA - 07/30/2014 12:30 PM PSTFormatting of this note might be differen t from the original. TRENT Vicente [address] [facility] [place] [address] [place] [address] FAX: NEUROSURGERY FOLLOW-UP CHIEF COMPLAINT: Chief Complaint Patient presents with Follow-up Post op HISTORY OF PRESENT ILLNESS: The patient is a 69 y.o. male that had a lumbar fusion by Dr. светлана mckeon around 8 months ago. He returns and overall is doing well. The patient complains of occasional back discomfort. He continues to have some knee problems but he is having surger y on that in the future. PAST MEDICAL HISTORY: Past Medical History Diagnosis Date High cholesterol Rectal cancer (HCC) PAST SURGICAL HISTORY: Past Surgical History Procedure Date Back surgery Rectal cancer Right hand trigger finger Lumbar laminectomy 10/22/2013 L2-3, L3-4 TRANSFORAMINAL LUMBAR INTERBODY FUSION; Laterality: N/A; Surgeon: Kemal lozano MD; Location: [facility] MAIN OR CURRENT MEDICATIONS: Current Outpatient Prescriptions Medication Sig Dispense Refill acetaminophen (TYLENOL) 325 mg tablet Take 325 mg by mouth Daily. Prn pain Awyuqwqmi-Vrdwnehjotg-Aba D (GLUCOSAMINE COMPLEX PO) Take 2 tablets by mouth Daily. lovastatin (ALTOPREV) 40 MG 24 hr tablet Take 40 mg by mouth nightly. MULTIPLE VITAMIN PO Take 1 tablet by mouth Daily. naproxen sodium (ALEVE) 220 MG tablet Take 220 mg by mouth Daily. ALLERGIES: Allergies Allergen Reactions Chlorhexidine Gluconate Other [...] present illness. In addition, the patient has numbness/pain of arms, headaches. PSYCHIATRIC: No depression, + sleep disorders, no [...] rheumatoid arthritis. INTERIM PHYSICAL EXAMINATION: Blood pressure 158/94, pulse 58, resp. rate 14, height 1.753 m (5' 9"), weight 83.915 kg (1 85 lb). Body mass index is 27.31 kg/(m^2). GENERAL: Cosmo Johnson is in no [...] is 5/5. SENSORY EXAM: The sensory examination normal REFLEXES: Reflexes are unchanged from his preoperative history and physical. RADIOGRAPHIC REVIEW: The patient s postoperative x-rays show stable instrumentation and alignment and were rev iewed with the patient today during the visit. There has been increased arthrodesis since t he patient s last x-ray which was also reviewed for comparison. ASSESSMENT: S/P lumbar fusion for: Encounter Diagnoses Name Primary? Facet arthropathy, lumbar Yes DDD (degenerative disc disease), lumbar S/P lumbar fusion Past Medical History Diagnosis Date High cholesterol Rectal cancer (HCC) PLAN: Overall, the patient is doing well. I have increased the patient s activities [...] long-term. I greatly appreciate t his referral. After his surgery would like him to gradually start increasing his walking. The patient will follow-up with my clinic in around 4 months for re-evaluation. ELECTRONICALLY SIGNED BY: TRENT Vicente, 07/30/2014 12:44 documented in this encounter Plan of Treatment [...] priors. FINDINGS: Mild levoscoliosis of the | [facility] | | lumbar spine is present. Again [...] Signed by: Keven Suarez | | | Electronically signed: 12/14/2014 3:41 PM | | [...] ST. | [address] | [place], [place] | [phone] | | [facility] | | [address] | | | - IMAGING | | | | + + + + + documented in this encounter Visit Diagnoses + + | Diagnosis | + + | Facet arthropathy, lumbar - Primary Lumbosacral spondylosis without myelopathy | + + | DDD (degenerative disc disease), lumbar Degeneration of lumbar or lumbosacral | | intervertebral disc | + + | S/P lumbar fusion Arthrodesis status | + + documented in this encounter
--- OUTSIDE RECORDS SUMMARY | ~2019-11-22 | XMS | Encounter Summary ---
Demographics + + + | Address | [address] | | | [place] [address] | + + + | Home Phone | | + + + | Preferred Language | Unknown | + + + | Marital Status | | + + + | Mosque Affiliation | 1077 | + + + | Race | Unknown | + + + | Ethnic Group | Unknown | + + + Author + + + | Author | [facility] | | | and [place] | + + + | Organization | [facility] | | | [...] Team Providers + +------+ + | Care Separator Operator Name | Role | Phone | + +------+ + | Hay Greco MD | PCP | | + +------+ + Encounter Details +--------+ + + + + | Date | Type | Department | Care Team | Description | +--------+ + + + + | 05/12/ | [facility] | [facility] | | | | 2012 | Encounter | MED CTR XRAY [address] | | | | | | [address] | | | | | | [place] [address] | | | | | | [phone] | | | +--------+ + + + [...] Performed At | + + + | [facility] | [place] | | Department [address] , [place] | [facility] | | [ rep [address]] [ rep [facility] | | st zip] Signed | - IMAGING | | | | | Patient Name: TYLOR OLIVERA | | | Physician: JOHN : 1945 Age: 67 Sex: M Unit | | | #: [id number] Exam Date: 05/12/13 Location: | | | [facility] [place] Report #: [id number] Page: | | | %(RAD)RES..mtdd.print.filter("pg") of %(RAD) | | | RES..mtdd.print.filter("tpg") | | | | | | Accession Number: [id number] | | | LUMBAR SPINE WITH AND WITHOUT CONTRAST CLINICAL HISTORY: | | | 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 PRIOR SURGERY 2009. | | | HISTORY OF RECTAL CANCER. RADIATION THERAPY. COMPARISON: | | | Preoperative MRI 03/14/2009. Postoperative MRI 06/11/2011. Both of the | | | comparison MRI's are from [facility] in [facility] | | | [place]. TECHNIQUE: Multiplanar, multisequence MR imaging of | [...] Transcribed Date/Time: 05/12/2013 | | | 16:03 Wedding Consultant: <<Signature | | | on File>> | | | Shayne | | | Lucrecia Barreto MD05/12/13 1628 <Electronically signed by Shayne Singer | | Troy Barreto MD> Shayne Barreto MD 05/12/13 1448 | | | Wedding Consultant: Angelantoni Vrecsommdtycc14/29/13 1603 | | | Hay Greco MD | | + + + + + + + + | Performing | Address | City/State/Zipcode | Phone Number | | Organization | | | | + + + + + | [facility] | [address] | [place] | [phone] | | [facility] | | [address] | | | - IMAGING | | | | + + + + + documented in this encounter Visit Diagnoses Not on filedocumented in this encounter
--- OUTSIDE RECORDS SUMMARY | ~2019-11-22 | XMS | Encounter Summary ---
Demographics + + + | Address | [address] | | | [place] [address] | + + + | Home Phone [...] + | Ricarda Johnson | ECON | [address] | | | | | [place] | | | | | [address] | | + + + + + Care Team Providers + +------+ + | Care Life Skills Teacher Name | Role | Phone | + +------+ + | Hay Greco MD | PCP | | + +------+ + Encounter Details +--------+ + + + + | Date | Type | Department | Care Team | Description | +--------+ + + + + | / | Abstract | Infectious | Rona Kulkarni | | | 2011 | | [facility] at [facility] | JUNI Pace [address] | | | | | [address] | [address] | | | | | Loop Physician's | [place], [place] | | | | | [address], [facility] | [address] | | | | | [place], [place] | [phone] | | | | | [address] | | | | | | [phone] | | | +--------+ + + + [...] + | CBC, WITH | Routin | 09/12/2011 | | Results for this | | DIFFERENTIAL | e | 9:50 AM | | procedure are in the | | | | PST | | results section. | + +--------+ + + + | COMPLETE METABOLIC | Routin | 09/12/2011 | | Results for this | | [...] COMPLETE METABOLIC SET (NA,K,CL,CO2,BUN,CREAT,GLUC,CA,AST,ALT,BILI TOTAL,ALK PHOS,ALB,PROT TOTAL) (09/12/2011 9:50 AM PST) + +-------+ + + + | Component | Value | Ref Range | Performed | Pathologist | | | | | At | Signature | + +-------+ + + + | GLUCOSE, | 89 | 65 - 110 mg/dL | NON [facility] | | | PLASMA | | | LAB | | | (LAB) | | | | | + +-------+ + + + | BUN, PLASMA | 23 | mg/dL | NON [facility] | | [...] + + + | ALK PHOS | 109 | U/L | NON [facility] | | [...] +-------+ + + + | POTASSIUM, | 4.6 | mmol/L | NON [facility] | | [...] + +---------+ + + CBC, WITH DIFFERENTIAL (09/12/2011 9:50 AM PST) + + + + + + | Component | Value | Ref Range | Performed | Pathologist | | | | | At | Signature | + + + + + + | WHITE CELL | 4.4 | K/cu mm | NON [facility] | | | COUNT | | | LAB | | + + + + + + | RED CELL | 3.12 | M/cu mm | NON [facility] | | | COUNT | | | LAB | | + + + + + + | HEMOGLOBIN | 10.4 (A) | 13.5 - 17.5 | NON [facility] | | | | | g/dL | LAB | | + + + + + + | HEMATOCRIT | 30.2 | % | NON [facility] | | | | | | LAB | | + + + + + + | MCV | 96.8 | fL | NON [facility] | | [...] + + + + | PLATELET | 228 | K/cu mm | NON [facility] | | | COUNT | | | LAB | | + + + + + + | NEUTROPHIL | 79 | % | NON [facility] | | | % | | | LAB | | + + + + + + | LYMPHOCYTE | 8.7 | % | NON [facility] | | | % | | | LAB | | + + + + + + | MONOCYTE % | 6.8 | % | NON [facility] | | | | | | LAB | | + + + + + + | EOS % | 4.2 | % | NON [facility] | | | | | | LAB | | + + + + + + | BASO % | 1.3 | % | NON [facility] | | | | | | LAB | | + + + + + + | RDW | 13.8 | % | NON [facility] | | [...] + + + | ESR (SED | 68 | | NON [facility] | | | [...]
--- OUTSIDE RECORDS SUMMARY | ~2019-11-22 | XMS | Encounter Summary ---
Demographics + + + | Address | [address] | | | [place] [address] | + + + | Home Phone [...] + + + | Author | [facility] | + + + | Organization | [facility] | + + + | Address | Unknown | + + + | Phone | Unavailable | + + + Support + + + + + | Name | Relationship | Address | Phone | + + + + + | Ricarda Johnson | ECON | [address] | | | | | [place] | | | | | [address] | | + + + + + Care Team Providers + +------+ + | Care Lining Presser Name | Role | Phone | + [...] | | 2017 | | Center at [facility] [address] | [address] [facility] | Review | | | | [address] | [address] | | | | | Mailcode: [address] | [place], [place] | | | | | [facility] and | [address] | | | | | [facility] | [phone] | | | | | [place], [place] | | | | | | [address] | | | | | | [phone] | | | +--------+ + + + [...]
--- OUTSIDE RECORDS SUMMARY | ~2019-11-22 | XMS | Encounter Summary ---
Demographics + + + | Address | [address] | | | [place] [address] | + + + | Home Phone | | + + + | Preferred Language | Unknown | + + + | Marital Status | | + + + | Cheondoism Affiliation | PRE | + + + | Race | White | + + + | Ethnic Group | Not or | + + + Author + + + | Author | [facility] | + + + | Organization | [facility] | + + + | Address | Unknown | + + + | Phone | Unavailable | + + + Support + + + + + | Name | Relationship | Address | Phone | + + + + + | Ricarda Johnson | ECON | [address] | | | | | [place] | | | | | [address] | | + + + + + Care Team Providers + +------+ + | Care Meeting/Event Planner Name | Role | Phone | + +------+ + | Hay Greco MD | PCP | | + +------+ + Encounter Details +--------+ + + + + | Date | Type | Department | Care Team | Description | +--------+ + + + + | 08/07/ | Results | LAB REFERRED TESTS | Cy Toribio | | | 2011 | Only | [address] [facility] | [phone] | | | | | [address] | | | | | | [place], [place] | | | | | | [address] | | | +--------+ + + + [...] + | EJECTION FRACTION | Routin | 08/07/2011 | | Results for this | | | e | 8:40 AM | | procedure are in the | | | | PST | | results section. | + +--------+ + + + documented in this encounter Results EJECTION FRACTION (08/07/2011 8:40 AM PST) + + + + + + | Component | Value | Ref Range | Performed | Pathologist | | | | | At | Signature | + + + + + + | EJECTION | 55 - 60%Comment: EF | | [facility] | | | FRACTION | Recorded from | | OF | | | | Transesophageal | | CARDIOLOGY | | | | Echocardiagram | | | | + + + + + + + + | Specimen | + + | | + + + + + + + | Performing | Address | City/State/Zipcode | Phone Number | | Organization | | | | + + + + + | [facility] | [address] | [facility] [place] | | | CARDIOLOGY | [address] | [address] | | + + + + + documented in this encounter Visit Diagnoses Not on filedocumented in this encounter"
--- OUTSIDE RECORDS SUMMARY | ~2019-11-22 | XMS | Encounter Summary ---
Demographics + + + | Address | [address] | | | [place] [address] | + + + | Home Phone [...] + | Ricarda Johnson | ECON | [address] | | | | | [place] | | | | | [address] | | + + + + + Care Team Providers + +------+ + | Care Senior Data Scientist Name | Role | Phone | [...] | (Primary Dx); | | | | [facility] 4th Floor [address] | [place], [place] | Malignant neoplasm | | | | [address] | [address] | of rectum (HCC); | | | | Mailcode: CH4S | [phone] | Screening for | | | | [facility] | | diabetes mellitus | | | | and Healing, | | | | | | Building 1,4th Floor | | | | | | [place], [place] | | | | | | [address] | | | | | | [phone] | | | +--------+---------+ + + + [...] Kavya Batista NP - 07/25/2010 11:08 AM [facility] Do not eat or [...] OR NON-STEROIDAL ANTI-INFLAMMATORY DRUGS (NSAIDs) Advil, Aleve, [place], Anacin, Arthopan, Ascriptin, Aspergum, Aspirin with and [...] Piroxicam, Propoxyphene, Relafen, R obomol, Rufen, Sine-aid, Blackey s cold tablets, Sulindac, Talwin, Tolectin, Triaminici n, Trigesic, Voltaren, Zorprin. OTHER PRODUCTS WHICH MAY PROMOTE BLEEDING Vitamin E, Gingko Biloba, Marine Fatty Acids, [place]-3 Fish Oil Supplements Important Guidelines Please do [...] perfume, lotions or powder. Remove any nail arabic from at least one fingernail. Do not [...] stand or walk. Check in locations Admitting [phone], [facility], ninth floor lobby Check-in times for Hospital Admissions are not available until the day prior to surgery. So meone from your surgeon's office or the hospital will contact you with your check in time. I f you do not hear from anyone by 3:00 PM please call your surgeons' office for [id number] . Going Home Your surgeon will decide [...] it is after office hours, call the [facility] thread machine operator at [phone] and ask them to page your doc [...] itional test results under "Media" tab in theBench. I spent 25 minutes in the care of this patient, > 50% of which was spent in counseling and coordination of care. All patient's questions clarified and answered satisfactorily. Bartolo Batista, MSN, ACNP- Nurse Practitioner Pre-operative Medicine Clinic [facility], Mail code : [facility] [address] [place] [address] (DIRECT LINE) (FAX) 2007 ACC/ AHA Perioperative Guidelines 1. Need for emergency noncardiac surgery? b. No -> Proceed to next step. 2. Active Cardiac Conditions? These conditions mandate further investigation and manageme nt. A. Acute VT within 7 days: no B. Unstable angina/Recent VT (7- 30 days): no C. Decompensated CHF: [...] consider noninvasive yecenia ting if it will mold changer. 3 or more risk factors AND high risk surgery- consider testing if it will mold changer . documented in this enco unter Plan [...] | | | | | LUIZA HYDE ([id number]) | | | | | | on 07/26/2010 12:12:45 PM | | | | + + + + + + + + | Specimen | + + | | + + + + + | Narrative | Performed At | + + + | Please click | [facility] | | on view image for the detailed interpretation from [employer] results. | CARDIOLOGY | + + + + + + + + | Performing | Address | City/State/Zipcode | Phone Number | | Organization | | | | + + + + + | [facility] | [address] | [place], [place] | | | CARDIOLOGY | [address] | [address] | | + + + + + [...] | + + + + + | [facility] | [address] | [place] [address] | | | PATHOLOGY | [address] [...] by | | | | | | [employer], | | | | | | | | | | | | [address] | | | | | | [facility] | | | | | | [address] | | | | | | | | | | | | [email or web address], | | | | | | Rebeca [...] [facility] | [address] | [place], [place] | | | [facility] | | [address] | | + + + + + [...] | + + + + + | [facility] | [address] | [place] [address] | | | PATHOLOGY | [address] [...] | + + + + + | [facility] | [address] | [place] [address] | | | PATHOLOGY | [address] [...] | | | DEPARTMENT | | | [place] | | | OF | | | [...] DEPARTMENT OF | [address] | [place] [address] | | | PATHOLOGY | [address] [...] consider | | | intensifying therapy [facility] ([facility]) | | | [facility] [place] [address] [place] [address] | | | [place] [place] [address] | | + + + + + + + + | Performing | Address | City/State/Zipcode | Phone Number | | Organization | | | | + + + + + | [facility] | [address] | [place] [address] | | | LABORATORY | | | [...]
--- OUTSIDE RECORDS SUMMARY | ~2019-11-22 | XMS | Encounter Summary ---
Demographics + + + | Address | [address] | | | [place] [address] | + + + | Home Phone | | + + + | Preferred Language | Unknown | + + + | Marital Status | | + + + | Bahai Affiliation | PRE | + + + [...] + | Ricarda Johnson | ECON | [address] | | | | | [place] | | | | | [address] | | + + + + + Care Team Providers + +------+ + | Care Midlevel Provider Name | Role | Phone | + +------+ + | Hay Greco MD | PCP | | + +------+ + Encounter Details +--------+ + + + + | Date | Type | Department | Care Team | Description | +--------+ + + + + | 08/02/ | Telephone | Dig[facility]ive Health | [place], | | | 2010 | | [place] at [facility] [address] | [address] | | | | | [address] | [address] | | | | | Mailcode: Center | [place], [place] | | | | | [facility] and | [address] | | | | | [facility], [facility] 2 | [phone] | | | | | [place], [place] | | | | | | [address] | | | | | | [phone] | | | +--------+ + + + [...]
--- OUTSIDE RECORDS SUMMARY | ~2019-11-22 | XMS | Encounter Summary ---
Demographics + + + | Address | [address] | | | [place] [address] | + + + | Home Phone | | + + + | Preferred Language | Unknown | + + + | Marital Status | | + + + | Oriental Orthodox Affiliation | PRE | + + + | Race | White | + + + | Ethnic Group | Not or | + + + Author + + + | Author | [facility] | + + + | Organization | [facility] | + + + | Address | Unknown | + + + | Phone | Unavailable | + + + Support + + + + + | Name | Relationship | Address | Phone | + + + + + | Ricarda Johnson | ECON | [address] | | | | | [place] | | | | | [address] | | + + + + + Care Team Providers + +------+ + | Care Investigation Manager Name | Role | Phone | + +------+ + | Hay Greco MD | PCP | | + +------+ + Encounter Details +--------+ + + + + | Date | Type | Department | Care Team | Description | +--------+ + + + + | 10/21/ | Telephone | Digestive Health | [place], | | | 2011 | | [place] at [facility] [address] | [address] | | | | | Debbie [address] | [address] | | | | | Mailcode: Center | [place], [place] | | | | | for Health and | [address] | | | | | [facility], [facility] 2 | [phone] | | | | | [place], [place] | | | | | | [address] | | | | | | [phone] | | | +--------+ + + + [...]
--- OUTSIDE RECORDS SUMMARY | ~2019-11-22 | XMS | Encounter Summary ---
Demographics + + + | Address | [address] | | | [place] [address] | + + + | Home Phone [...] Team Providers + +------+ + | Care Tire Worker Name | Role | Phone | + +------+ + | Hay Greco MD | PCP | | + +------+ + Encounter Details +--------+ + + + + | Date | Type | Department | Care Team | Description | +--------+ + + + + | 07/17/ | Hospital | [facility] GENERIC IP | Conversion | Pain | | 2018 | Encounter | CONVERSION DEP [address] | Transaction, | | | | | [address] | Provider Unknown | | | | | [place], [place] | [phone] | | | | | [address] | | | | | | [phone] | | | +--------+ + + + [...] + +--------+ + + + | CT SHOULDER RIGHT WO | Routin | 07/16/2017 | | Results for this | | CONTRAST | e | 1:18 PM | | procedure are in the | | | | PST | | results section. | + +--------+ + + + documented in this encounter Results CT Shoulder Right wo Contrast (07/16/2017 1:18 PM PST) + + | Specimen | + + | | + + + + + | Narrative | Performed At | + + + | This is a non-reportable procedure without a radiologist report and | | | is used for image storage only | | + + + + + | Procedure Note | + + | Dwayne Mendoza - 02/25/2019 7:15 AM PDT This is a non-reportable procedure | | without a radiologist report and isused for image storage only | + + documented in this encounter Visit Diagnoses + + | Diagnosis | + + | Pain Generalized pain | + + documented in this encounter"
--- OUTSIDE RECORDS SUMMARY | ~2019-11-22 | XMS | Encounter Summary ---
Demographics + + + | Address | [address] | | | [place] [address] | + + + | Home Phone | | + + + | Preferred Language | Unknown | + + + | Marital Status | | + + + | Sikh Affiliation | 1077 | + + + [...] Team Providers + +------+ + | Care Hazardous Materials Tanker Driver Name | Role | Phone | + +------+ + | Hay Greco MD | PCP | | + +------+ + Encounter Details +--------+ + + + + | Date | Type | Department | Care Team | Description | +--------+ + + + + | 07/22/ | [facility] | [facility] | Kemal Damian MD | Status post lumbar | | 2018 | Encounter | MED CTR XRAY [address] | [address] | spinal fusion | | | | [address] [place] | [place] [address] | | | | | [place] [address] | [phone] | | | | | [phone] | | | +--------+ + + + [...]
--- OUTSIDE RECORDS SUMMARY | ~2019-11-22 | XMS | Encounter Summary ---
Demographics + + + | Address | [address] | | | [place] [address] | + + + | Home Phone | | + + + | Preferred Language | Unknown | + + + | Marital Status | | + + + | Mandaeism Affiliation | [id number] | + + + [...] Team Providers + +------+ + | Care Pin Machine Operator Name | Role | Phone | + +------+ + | Hay Greco MD | PCP | | + +------+ + Reason for Visit + + + | Reason | Comments | + + + | Back Pain | low back pain radiating into bilateral legs | + + + Evaluate & Treat (Routine) +--------+ + + + + + | Status | Reason | Specialty | Diagnoses / | Referred By | Referred To | | | | | Procedures | Contact | Contact | +--------+ + + + + + | Closed | Specialty | Physical | Diagnoses | [place], | Oneil, | | | Services | Medicine and | S/P lumbar | Kirk | Pj Singer MD | | | Required | Rehabilitatio | fusion DDD | JUNI Ibarra | [address] | | | | n | (degenerativ | [address] | [facility] | | | | | e disc | [address] | [place], [place] | | | | | disease), | [place], [place] | [address] Phone: | | | | | lumbar | [phone] | [phone] | | | | | Facet | Phone: | Fax: | | | | | arthropathy, | [phone] | [phone] | | | | | lumbar | Fax: | | | | | | | [phone] | | +--------+ + + + + + Encounter Details +--------+---------+ + + + | Date | Type | Department | Care Team | Description | +--------+---------+ + + + | 03/07/ | Office | [facility] | Lilli, | Lumbar radicular | | 2017 | Visit | PHYSIATRY [address] | JUNI [address] | pain (Primary Dx); | | | | [address] | [address] | Spondylolisthesis of | | | | [place], [place] | [place] [address] | lumbar region; DDD | | | | [address] | [phone] | (degenerative disc | | | | [phone] | | disease), lumbar; | | | | | | Lumbar spinal | | | | | | stenosis - above | | | | | | fusion L1/L2 | +--------+---------+ + + + Social History [...] + + + | Blood Pressure | 155/85 | 03/07/2017 1:30 PM | | | | | PDT | | + + + + + | Pulse | 65 | 03/07/2017 1:30 PM | | | | | PDT [...] Weight | 81.6 kg (180 lb) | 03/07/2017 1:30 PM | | | | | PDT | | + + + + + | Height | 175.3 cm (5' 9") | 03/07/2017 1:30 PM | | | | | PDT | | + + + + + | Body Mass Index | 26.58 | 03/07/2017 1:30 PM | | | | | PDT [...] of this encounter Patient Instructions Patient Instructions Kalina Reeder PA-C - 03/07/2017 1:20 PM PDT1) Epidural injecti on with Dr. Powell 2) PHysical therapy has been approved, we will sent to [facility] 3) CT scan has been approved [facility] sent [facility] Spinal Stenosis: Stenosis refers to the narrowing of the spinal cord. This most often occurs with age and generative changes of the spine. Narrowing of the spinal cord causes compression and inflam mation of nerves in the lower back and can cause numbness, pain, and weakness in the back, b uttocks and legs. You may notice you have more pain with standing and walking. It feels be tter to walk more bent over at the waist, while pushing a grocery cart or walker. You get r elief with sitting down. Treatment includes pain medicine, gabapentin, transforaminal epidu ral steroid injections to help reduce swelling, physical therapy and surgery. Steroids are a very strong anti-inflammatory, this helps reduce pain by reducing swelling. Complications of steroids are bleeding, infection, and an increase of blood sugars if you are diabetic. manager intermediate risk can lead to osteoporosis which is why we limited the number of injections to 3 times per year. Epidural injections target the spinal stenosis by putting the steroid around the nerves that come out of the spine with hopes the steroid gets into t he region of the stenosis. The procedure is about 20 minutes long. You will lie on your saumya k while x-rays are taken. Once the region is marked, it is numbed and then injected with st eroids. Follow-up at the hospital thirty minutes before your scheduled procedure to allow for time to check in. You may eat and drink as usual on the day of the procedure. If you are scheduled for an epidural injection do not take any blood thinning medications f or at least 5-7 days prior to your procedure unless you have been instructed by another phys ician not to discontinue blood thinning medications. If you are having a procedure other than an epidural injection (i.e. facet injection, media l branch block, SI joint injection or other joint injection) it is not absolutely necessary to discontinue blood thinning medications but doing so will decrease the risk of bruising or bleeding. If you have had a prior stroke, DVT or PE or if you are taking blood thinning medication be cause you have atrial fibrillation, a prosthetic cardiac valve replacement or heart stenting do not stop taking your blood thinning medications unless you have permission from your car diologist or primary care provider. All other medications should be taken as usual on the day of the procedure. Common blood thinning medications include: Aspirin (a baby aspirin is o.k.) Ibuprofen (Advil or Motrin) Naproxen (Aleve) Nabumetone (Relafen) Clopidogrel (Plavix) Dipyridamole/ASA (Aggrenox) Warfarin (Coumadin) Dabigatran (Pradaxa) Rivaroxaban (Xarelto) There are many others. If you have questions about your medications and whether or not you should stop any medications please contact our office. If you are having an epidural injection or if you take any medication for relaxation/sedati on on the day of the procedure you must provide a airport shuttle driver to take you home. For all procedur es it is recommended that someone else drive you home. documented in this encounter Progress Notes Kalina Reeder PA-C - 03/07/2017 1:20 PM PDTFormatting of this note might be differe nt from the original. Kalina Reeder PA-C [address] [facility] [address] [place] [address] FAX: PHYSICAL MEDICINE AND REHABILITATION H&P CHIEF COMPLAINT: Chief Complaint Patient presents with Back Pain low back pain radiating into bilateral legs HISTORY OF PRESENT ILLNESS: The patient is a 71 y.o. male being seen today for complaints of low back pain. He has a lumbar fusion by Dr. Damian in 2012. He reports in the last year h is symptoms have worsened. He describes the pain as a aching, dull, sharp and shooting feeling. He rates the pain as m oderate to severe. His symptoms worsen with standing, walking, bending, twisting, kneeling. His symptoms improve with rest, changing position. The patient also describes leg symptoms that occur on to the bilateral anterior thighs. The patient does not describe numbness of the legs. He does report weakness of the back a nd legs with prolonged standing. He does not have bowel and bladder dysfunction. He does not have saddle anesthesia. Treatments for these complaints have included use of narcotics, NSAIDS. Patient's medications, allergies, past medical, surgical, social and family histories were reviewed and updated as appropriate. PAST MEDICAL HISTORY: Past Medical History: Diagnosis [...] Laterality: N/A; Surgeon: Kemal Damian MD; Location: [facility] MAIN OR LUMBAR LAMINECTOMY Dr. Tavarez SMALL INTESTINE SURGERY 2012 Rectal adenocarcinoma; Ileostomy takedown reanastomis rectum/colon TOTAL KNEE ARTHROPLASTY Right 03/2015 TOTAL KNEE ARTHROPLASTY Left 2015 CURRENT MEDICATIONS: Current Outpatient Prescriptions Medication Sig Dispense Refill acetaminophen (TYLENOL) 325 mg tablet Take 650 mg by mouth every 4 hours as needed for Pain. Prn pain amLODIPine (NORVASC) 5 mg tablet Take 1 tablet by mouth Daily. 0 hydroCHLOROthiazide 25 mg tablet Take 1 tablet [...] Grandfather REVIEW OF SYSTEMS: GENERALLY: No fever, chills, [...] pain/arthritis, no Rheumatoid Arthritis PHYSICAL EXAMINATION: Vitals: 03/07/17 1330 BP: 155/85 Pulse: 65 PainSc: 8 PainLoc: Back Body mass index is 26.58 kg/m. GENERAL: The patient is well developed and well nourished. He does not appear uncomfortabl e when seated. HEENT: HEAD/FACE: EYES: EARS: NASOPHARNYX: OROPHARNYX: Normocephalic and atraumatic. There are no areas of recent trauma. Normal sclerae without icterus. No drainage or tenderness. Clear without drainage. Clear without erythema. SKIN Limited skin exam shows no significant [...] has no apparent deficits with short or [facility] memory. He has appropriate fund of knowledge Cranial nerves 2-12 appear grossly intact. Sensory exam does not show diminished sensation to light touch in the lower extremities. REFLEX: RIGHT LEFT PATELLAR 0 0 ACHILLES 0 0 MUSCULOSKELETAL There is no tenderness in the [...] the majority of the pain to the lower lumb osacral region. Lumbar facet loading was negative. Strength testing showed 5/5 strength th roughout the lower extremities. The patient was able to heel and toe walk without difficult y. There was no redness, effusion, warmth or joint line tenderness in the knees or ankles. RADIOGRAPHIC REVIEW: The patient's imaging was reviewed in detail with the patient today during the visit. Lumb ar MRI from 2017 shows solid fusion from L2-L4 with adjacent segment disease at L1/L2 with m oderate spinal stenosis. Multi-level facet arthritis at L4/L5/, L5/S1. ASSESSMENT: 1. Lumbar radicular pain 2. Spondylolisthesis of lumbar region 3. DDD (degenerative disc disease), lumbar 4. Lumbar spinal stenosis - above fusion L1/L2 PLAN: 1. Discussed symptoms in detail and MRI. Most likely pain originating from spinal stenosi s at L1/L2 with referring pain to the lower lumbosacral region. Discussed PT, order has bee n placed by Gucci Javier PA-C and approved, we will sent over to [facility]. 2. He has an order for a lumbar CT scan, this will also be sent over to [facility]. 3. Discussed steroid injection, offered him a bilateral L2/L3 TFESI to target the spinal s tenosis. 4. He will fill out his pain log and follow up accordingly. ELECTRONICALLY SIGNED BY: Kalina Reeder PA-C, 03/07/2017 CC: Angus documented in t his encounter Plan of Treatment Not on filedocumented as of this encounter Results [place] BERNIE Lumbar Transforaminal (04/03/2017 11:08 AM PDT) + + | Specimen | + + | | + + + + ---+ | Narrative | Performed At | + + ---+ | 04/03/2017 | [facility] | | Bilateral Transforaminal Epidural Steroid Injections Diagnosis: Lumbar | [facility] | | radiculopathy ICD-10 Code M54.16 Cosmo Johnson presents to the | [facility] | | fluoroscopy suite for fluoroscopically-guided bilateral L2-L3 | - IMAGING | | transforaminal epidural steroid injections as part of conservative | | | management for chronic pain with lumbar radiculopathy and degenerative | | | disk disease. After informed consent was obtained, the patient lay in | | | the prone position on the fluoroscopy table. The areas were | | | identified under fluoroscopic guidance. The areas were prepped and | | | draped in sterile fashion. A 25-gauge, 1.5-inch needle was inserted | | | into each region and approximately 3 mL of buffered 1% lidocaine was | | | infused. Then, a 22-gauge spinal needle was inserted into the | | | posterior superior transforaminal space bilaterally and advanced into | | | the epidural space under fluoroscopic guidance. Confirmation into the | | | epidural space was obtained with infusion of approximately 1 mL of | | | Omnipaque contrast which showed epidural flow as well as nerve sheath | | | flow. Then, a combination of 2 mL of 1% lidocaine and 2 mL of 10 mg/mL | | | dexamethasone was infused, divided between the two sides. The patient | | | tolerated the procedure well without complications. Pre- and | | | post-procedure blood pressures were stable. The patient was given | | | verbal as well as written follow-up instructions. Prior to the start | | | of the procedure, the following were performed and/or verified, | | | including correct patient identity, correct site/side marked and | | | visible, agreement on the procedure to be done, correct patient | | | positioning and an accurate procedure consent form. Any safety | | | precautions based on clinical history and/or medication use have been | | | addressed. I personally performed the procedure above. Estimated blood | | | loss: MinimalComplications: NoneFindings: As expectedAnesthesia: | | | Local 1% Lidocaine | | |visible, agreement [...] | | | | | + + ---+ + + + + + | Performing | Address | City/State/[facility] | Phone Number | | Organization | | | | + + + + + | [facility] | [address] | [place], [place] | [phone] | | [facility] | | [address] | | | - IMAGING | | | | + + + + + documented in this encounter Visit Diagnoses + + | Diagnosis | + + | Lumbar radicular pain - Primary Thoracic or lumbosacral neuritis or radiculitis, | | unspecified | + + | Spondylolisthesis of lumbar region Acquired spondylolisthesis | + + | DDD (degenerative disc disease), lumbar Degeneration of lumbar or lumbosacral | | intervertebral disc | + + | Lumbar spinal stenosis - above fusion L1/L2 Spinal stenosis, lumbar region, without | | neurogenic claudication | + + documented in this encounter
--- OUTSIDE RECORDS SUMMARY | ~2019-11-22 | XMS | Encounter Summary ---
Demographics + + + | Address | [address] | | | [place] [address] | + + + | Home Phone | | + + + | Preferred Language | Unknown | + + + | Marital Status | | + + + | Confucianism Affiliation | [id number] | + + + | Race | Unknown | + + + | Ethnic Group | Unknown | + + + Author + + + | Author | [facility] | | | and [place] | + + + | Organization | [facility] | | [...] Team Providers + +------+ + | Care Manager Drug Name | Role | Phone | + [...] + + + | Closed | | MRI | Diagnoses | [facility] | [facility] | | | | | Lumbar | [facility] | | | | | radicular | [address] | | | | | pain | [address] | [address] | | | | | Procedures | [address] | [place], [place] | | | | | MRI Lumbar | [place], | [address] | | | | | Spine wo | [place] [address] | Phone: | | | | | Contrast [place] | Phone: | [phone] | | | | | MRI, LUMBAR | [phone] | Fax: | | | | | SPINE | Fax: | [phone] | | | | | | [phone] | | +--------+--------+ + + + + Reason for Visit + + + | Reason | Comments | + + + | Follow-up | Low Back Pain | + + + Encounter Details +--------+---------+ + + + | Date | Type | Department | Care Team | Description | +--------+---------+ + + + | 04/03/ | Office | [facility] | David Brower, | Lumbar spondylosis | | 2018 | Visit | PHYSIATRY [address] | PA-C [address] | (Primary Dx); Lumbar | | | | [address] | [address] [place] | radicular pain; S/P | | | | [place], [place] | [place] [address] | lumbar fusion | | | | [address] | [phone] | | | | | [phone] | | | +--------+---------+ + + + [...] + + + | Blood Pressure | 144/86 | 04/03/2018 9:54 AM | | | | | PDT | | + + + + + | Pulse | 69 | 04/03/2018 9:54 AM | | | | | PDT [...] Weight | 83.9 kg (185 lb) | 04/03/2018 9:54 AM | | | | | PDT | | + + + + + | Height | 175.3 cm (5' 9") | 04/03/2018 9:54 AM | | | | | PDT | | + + + + + | Body Mass Index | 27.32 | 04/03/2018 9:54 AM | | | | | PDT [...] of this encounter Patient Instructions Patient Instructions David Brower PA-C - 04/03/2018 10:00 AM PDTLuar MRI ordered. We wi ll call you with results and treatment options at that time. If we pursue injections as next step I will order them after reviewing imaging and comparin g imaging results with today's physical exam findings. Possible Causes of Low Back or Leg Pain The symptoms in your back or leg may be due to pressure on a nerve. This pressure may be ca used by a damaged disk or by abnormal bone growth. Either way, you may feel pain, burning, t ingling, or numbness. If you have pressure on a nerve that connects to the sciatic nerve, horacio jean may shoot down your leg. Pressure from the disk Constant wear and tear can weaken a disk over time and cause back pain. The disk can then b e damaged by a sudden movement or injury. If its soft center starts to bulge, the disk may p ress on a nerve. Or the outside of the disk may tear, and the soft center may squeeze throug h and pinch a nerve. Pressure from bone As a disk wears out, the vertebrae right above and below the disk start to touch. This can put pressure on a nerve. Often, abnormal bone (called bone spurs) grows where the vertebrae rub against each other. This can cause the foramen or the spinal canal to narrow (called mai nosis) and press against a nerve. Date Last Reviewed: 09/12/201719999128-5065 [employer]. [address] [place] [address], [place] [address]. All righ ts reserved. This information is not intended as a substitute for professional medical care. Always follow your healthcare professional's instructions. Follow up with David Brower PA-C approximately 3 weeks after injection. Please remember to complete pain log form for this visit. Follow-up at the hospital thirty minutes before [...] of the procedure you must provide a electric truck driver to take you home. For all procedur es it is recommended that someone else drive you home. Facet Pain: Visit this web link for a visually stunning, short, and informative video: [email or web address]/[email or web address]-qiokgy-qroth-video The facet joint is located when the vertebrae (bones of the spine) connect to each other. Pain occurs with extension and rotation of the spine (bending backwards and rotating), bend ing over and lifting a heavy load, standing, first things in the morning. Images of the spi ne show facet arthritis, fluid in the facet joints. Treatment included rest, anti-inflammat ories, physical therapy focusing on core strengthening, facet steroid injections. Steroids are a very strong anti-inflammatory, this helps reduce pain by reducing swelling. Complications of steroids are bleeding, infection, and an increase of blood sugars if you are diabetic. intermediate project manager risk can lead to osteoporosis which is why we limited the number of injections to 3 times per year. Facet joints are located when the vertebrae (bones of the spine) connect to each other. Typically these joints can have arthritis in this and give a person centralized low back pain. The procedure takes about 20 minutes. You lie on your b ack and x-rays are taken. Once the region is localized, it is numbed and then injected with steroid. Radiofrequency Ablation (RFA) Burning of the nerves: This procedure is typically done when the steroid injections give excellent initial relief but does not last long. It is the same procedure as the steroid injections however it take s approximately 2 hours to complete. A needle is placed inside the facet joints and then co nnected to a battery pack which heats up the needle to burn the nerves inside the joint. Yo u must not eat after midnight the night before as you are put into procedural sedation where you can hear and talk but do not feel pain. You must have a electric truck driver to get home from the hospital. You will feel more bruising pain to the location of the needles for approxima tely 4-5 days after this procedure, but once that clears up, you should be pain free for 8 m onths to 2 years, depends on when the nerve grows back. Facet Joint Injection Back or neck pain may be caused by a problem with your facet joints. If so, a facet joint i njection may help. With this treatment, medicine is injected into certain facet joints. The injection can help your doctor find problem joints. It may also relieve your pain. What is a facet joint? Bones called vertebrae make up your spine. Each vertebra has facets (flat surfaces) that to uch where the vertebrae fit together. These form a structure called a facet joint on each si de of the vertebrae. What is a facet joint injection? One or more facet joints in your back or neck can become inflamed (swollen and irritated). This may cause pain. During a facet joint injection, medicine is injected into the inflamed joints. This treatment may help reduce inflammation and relieve pain. Pain reliefmay last for weeks to months or longer. If the pain returns, you may need a repeat injection. Getting ready To get ready for your treatment, do the following: At least a week before treatment, tell your healthcare provider what medicines you take. This includes aspirin. Ask whether you should stop taking any of them before treatment. Tell your provider if you are or allergic to any medicines. Follow any directions you are given for not eating or drinking before the treatment. If asked, bring X-rays, MRIs, or other tests with you on the day of your treatment. Date Last Reviewed: 10/13/201719996641-7216 [employer]. [address] [place] [address], [place] [address]. All righ ts reserved. This information is not intended as a substitute for professional medical care. Always follow your healthcare professional's instructions. documented in this encounter Progress Notes David Brower PA-C - 04/03/2018 10:00 AM PDTFormatting of this note might be different fro m the original. [address] [facility], [address] [place], [place] [id number] FAX: PHYSICAL MEDICINE AND REHABILITATION H&P CHIEF COMPLAINT: Chief Complaint Patient presents with Follow-up Low Back Pain HISTORY OF PRESENT ILLNESS: The patient is a 72 y.o. male being seen today for follow up a fter receiving a bilateral L2/L3 TFESI to target his spinal stenosis. Patient reports approx imately 0% relief after 2 weeks since receiving injection on date: 04/03/17. He has a lumbar fusion by Dr. Damian in 2012. He reports in the last year his symptoms have worsened. He recen tly has a L1-2 LAIF on 06/19/[address] Damian. Today he presents with low back pain, R>L that occasionally radiates into the the posterior thigh to level of knee, R>L as well. He has had PT which has helped mildly. He describes the pain as a aching, dull, sharp and shooting feeling. He rates the pain as m oderate. His symptoms worsen with standing, walking, bending, twisting, kneeling. His sympt oms improve with rest, changing position. The patient also describes leg symptoms that occur on to the bilateral glutes/posterior thi gh R>L. The patient does not describe numbness of [...] Laterality: N/A; Surgeon: Kemal Damian MD; Location: [facility] MAIN OR LUMBAR LAMINECTOMY Dr. Tavarez LUMBAR SPINE SURGERY N/A 06/19/2017 Procedure: L1-2 LAIF w/ Lateral Plating; Surgeon: Kemal Damian MD; Location: [facility] MAIN OR SMALL INTESTINE SURGERY 2011 Rectal adenocarcinoma; Ileostomy [...] pain/arthritis, no Rheumatoid Arthritis PHYSICAL EXAMINATION: Vitals: 04/03/18 0954 BP: 144/86 Pulse: 69 PainSc: 4 PainLoc: Back Body mass index is 27.32 kg/m. GENERAL: [...] has no apparent deficits with short or shelter memory. He has appropriate fund of knowledge Cranial nerves 2-12 appear grossly intact. Sensory exam does not show diminished sensation to light touch in the lower extremities. REFLEX: RIGHT LEFT PATELLAR 2 2 ACHILLES 0 0 MUSCULOSKELETAL There is no [...] lumb osacral region. Lumbar facet loading was POSITIVE. Strength testing showed 5/5 strength th roughout [...] arthritis at L4/L5/, L5/S1. ASSESSMENT: 1. Lumbar spondylosis 2. Lumbar radicular pain 3. S/P lumbar fusion PLAN: 1) Today we discussed the patient's differential diagnosis with the likely primary issue be ing LUMBAR SPONDYLOSIS. Patient's description of symptoms, physical exam, and imaging sugge st this diagnosis at this time. 2) I counseled patient on treatment options which included conservative self management usi ng OTC NSAIDs/Ice and heat packs, physical therapy, prescription medications, epidural stero id injection, as well as possible surgical intervention. 3) Imaging: MRI was ordered to assess lumbar spine for herniation, disc pathology, and/or n erve root impingement that may be contributing to patient's symptoms. 4) The patient has had significant conservative care including medications (NSAIDS and narc otics), PT (multiple sessions over the years) and health care legal assistant. Unfortunately Cosmo Johnson continues to have significant discomfort. It appears to me that the pain is maya zack coming from non-specific lumbar facet pain. Based on the patient's history, physical examination and review of the available imaging th e patient has been diagnosed with pain coming primarily from the lumbar facet joints with no other lumbar pathology considered to be a significant possible source of discomfort. The tino clarke's pain has been moderate to severe, rated as a 6 usually on a 0-10 scale. The pain i s impacting activities of daily living including bending, twisting, walking, standing. The tino clarke has been dealing with this pain for more than 3 months and has failed conservative tr eatment with NSAIDs, PT and a home exercise program therefore therapeutic facet injections w ere ordered today. I did feel that Cosmo Johnson would be a good candidate for interventional proced ures, however since his previous lumbar MRI he has undergone a second lumbar fusion. The pre sence of a new fusion has likely changed the pressure placed on his facet joints and new ely ging will help guide a probable future lumbar facet injection. We discussed different interventional procdures including TFESIs, facet injections, MBBs , and RFA procedures. 5) Patient will follow up with me 3 weeks post injection to discuss any imaging and/or prog ress with today's treatment plan. ONCE MRI RESULTS ARE BACK WE WILL CALL PATIENT WITH FINDIN GS AND LIKELY INTERVENTIONAL INJECTION STRATEGY, WE WILL SUBMIT REQUEST TO INJECTION AT THAT TIME. 6) If current treatment plan is insufficient for symptom relief we could try TFESI vs facet injection as the next therapy option. I spent 30 minutes in visit with Cosmo Johnson today with the majority of time spent counselling the patient on his diagnosis, options for his care, and coordinating his care. ELECTRONICALLY SIGNED BY: David Brower PA-C, 04/03/2018 CC: Marieectronically signed by David Brower PA-C at 04/03/2018 10:37 AM PDTdocumented in this encounter Plan of Treatment + +---------+--------+ + + | Name | Type | Priori | Associated Diagnoses | Order Schedule | | | | ty | | | + +---------+--------+ + + | MRI Lumbar Spine wo | Imaging | Routin | Lumbar radicular | Expected: | | Contrast | | e | pain | 04/03/2018, Expires: | | | | | | 04/04/2019 | + +---------+--------+ + + documented as [...]
--- OUTSIDE RECORDS SUMMARY | ~2019-11-22 | XMS | Encounter Summary ---
Demographics + + + | Address | [address] | | | [place] [address] | + + + | Home Phone [...] Team Providers + +------+ + | Care Municipal Firefighter Name | Role | Phone | + +------+ + | Hay Greco MD | PCP | | + +------+ + Reason for Visit + + + | Reason | Comments | + + + | Pre-op Exam | | + + + Encounter Details +--------+---------+ + + + | Date | Type | Department | Care Team | Description | +--------+---------+ + + + | 06/04/ | Office | [facility] | Carlos Armstrong | Spondylolisthesis of | | 2016 | Visit | NEUROSURGERY [address] | [address] | lumbar region | | | | [address] | [address] | (Primary Dx); Lumbar | | | | [place], [place] | [place], [place] | radiculopathy | | | | [address] | [address] | | | | | [phone] | | | +--------+---------+ + + + [...] + + + | Blood Pressure | 115/74 | 06/04/2017 11:49 AM | | | | | PST | | + + + + + | Pulse | 63 | 06/04/2017 11:49 AM | | | | | PST [...] + + + + | Weight | 83.2 kg (183 lb 6.8 | 06/04/2017 11:49 AM | | | | oz) | PST | | + + + + + | Height | 175.3 cm (5' 9") | 06/04/2017 11:49 AM | | | | | PST | | + + + + + | Body Mass Index | 27.09 | 06/04/2017 11:49 AM | | | | | PST [...] of this encounter Patient Instructions Patient Instructions Carlos Armstrong PA-C - 06/04/2017 12:15 PM PSTPlease remember n ot to take any anti-inflammatories within 7 days of surgery. This includes ibuprofen, Motri n, Advil, aspirin, naproxen, and Aleve. You may have a small glass of water on the morning of surgery to take your normal morning medications. Otherwise, nothing to eat or drink afte r midnight. If you have any change in your health status, please call and let us know. Last ly, If you have any questions, please feel free to give our office a call. Otherwise, we wi ll see you on the morning of surgery. documented in this encounter Progress Notes Isa Cisneros RN - 06/04/2017 12:15 PM PSTPatient in office for pre op appointment. Patient a dvised at this time to stop: Glucosamine seven days before surgery. Patient verbalized under standing. All questions answered at this time. I Isa Cisneros RN witnessed the patient leaving the office with a LSO brace which was provide d by a insurance claims representative of [facility]. Isa Cisneros RN Carlos andre PA- C - 06/04/2017 12:15 PM PST Carlos Armstrong PA-C [address] [facility], [address] [place] [id number] FAX: NEUROSURGERY HISTORY AND PHYSICAL EXAMINATION CHIEF COMPLAINT: Chief Complaint Patient presents with Pre-op Exam HISTORY OF PRESENT ILLNESS: The patient is an office today for his preop appointment. He is scheduled for a L1-L2 fusion with lateral plating. He states that his symptoms have been similar since his previous visit. He complains of low back pain that extends into his bila teral legs. He has previously seen physiatry and underwent a epidural steroid injection abo ve his previous surgery which provided him great relief for a period of time. His pain slow ly began to get worse and is now back down to baseline. He has had no interval changes in th e severity or character of his symptoms since his last visit. He denies any shortness of breath or chest pain. He denies any fever or chills.He has no open sores on his body and damon s not had any antibiotics recently. The patient is a 72 y.o. male with the complaint of back and bilateral leg pain symptoms th at began 7-8 months ago. Patient was previously seen in our office. We had ordered a CT sc an of his lumbar spine. In addition we had him see physiatry and he underwent epidural stero id injections. He states that he had great relief nearly 90% improvement in the first day. Unfortunately his symptoms have returned to nearly baseline. He feels like maybe he has 10 % improvement. He continues to have low back pain as well as pain and posterior legs when h e is active. The patient describes his back [...] first-deg ree AV block on his EKG. Box Estimator felt no additional testing was needed. He [...] Laterality: N/A; Surgeon: Kemal Damian MD; Location: [facility] MAIN OR LUMBAR LAMINECTOMY Dr. Tavarez SMALL [...] Take by mouth 4 times daily. 0 hydroCHLOROthiazide 25 mg tablet Take 1 [...] No Known Problems Paternal Grandfather REVIEW OF SYSTEMS GENERALLY: No fever, no [...] no rheumatoid arthritis. PHYSICAL EXAMINATION: Blood pressure 115/74, pulse 63, height 1.753 m (5' 9"), weight 83.2 kg (183 lb 6.8 oz). Martin dy mass index is 27.09 kg/m. GENERAL: Cosmo Johnson is in no acute distress with unlabored respirations. The pat griselda does appear uncomfortable throughout the exam today. [...] no apparent deficits with short or terminal make up operator memory. CRANIAL NERVES: II: Acuity is intact. [...] Intrinsics 5 5 Ulnar Intrinsics 5 5 Solution Advisor Strength 5 5 Hip Flexion 5 5 [...] ASSESSMENT: NEUROSURGICAL DIAGNOSES: Encounter Diagnoses Name Primary? Spondylolisthesis of lumbar region Yes Lumbar radiculopathy GENERAL DIAGNOSES: Past Medical History: Diagnosis Date Acute ischemic heart disease (HCC) Bone marrow aplasia (HCC) Colon cancer (HCC) Defecation urgency Headache syndrome benign High cholesterol HLD (hyperlipidemia) Internal derangement of knee Low back pain Lumbar spinal stenosis - above fusion L1/L2 03/07/2017 Osteoarthritis Osteoarthrosis, hand Radiculopathy, lumbar region Rectal malignant neoplasm (HCC) 07/2010 chemo, radiation, surgery Synovitis Systemic hypertension Thoracic neuritis PLAN: Today we discussed the upcoming surgery and answered any questions regarding the procedure and recovery. The patient understands that he will need to take it easy for a period of yohan e to ensure that his spine heals. Cosmo Johnson presented today, and it was [...] alternatives, and benefits to surgical intervention with Mr. Elder adame in clinic. These risks included but [...] restricting mobility. The patient would like to proceed with scheduled L1-2 fusion with lateral plating. ELECTRONICALLY SIGNED BY: Carlos Armstrong PA-C, 06/04/2017 12:20 documented in this encounter Plan of Treatment Not on filedocumented as of this encounter Visit Diagnoses + + | Diagnosis | + + | Spondylolisthesis of lumbar region - Primary Acquired spondylolisthesis | + + | Lumbar radiculopathy Thoracic or lumbosacral neuritis or radiculitis, unspecified | + + documented in this encounter
--- OUTSIDE RECORDS SUMMARY | ~2019-11-22 | XMS | Encounter Summary ---
Demographics + + + | Address | [address] | | | [place] [address] | + + + | Home Phone [...] + + + | Author | [facility] | + + + | Organization | [facility] | + + + | Address | Unknown | + + + | Phone | Unavailable | + + + Support + + + + + | Name | Relationship | Address | Phone | + + + + + | Ricarda Johnson | ECON | [address] | | | | | [place] | | | | | [address] | | + + + + + Care Team Providers + +------+ + | Care Patient Transport Officer Name | Role | Phone | [...] [address] | | | | | | [place], [place] | | | | | | [address] | | | +--------+ + + + [...]
--- OUTSIDE RECORDS SUMMARY | ~2019-11-22 | XMS | Encounter Summary ---
Demographics + + + | Address | [address] | | | [place] [address] | + + + | Home Phone | | + + + | Preferred Language | Unknown | + + + | Marital Status | | + + + | Roman Catholic Affiliation | PRE | + + + [...] + | Ricarda Johnson | ECON | [address] | | | | | [place] | | | | | [address] | | + + + + + Care Team Providers + +------+ + | Care Caramel Cutter Hand Name | Role | Phone | + +------+ + | Hya Greco MD | PCP | | + +------+ + Encounter Details +--------+ + + + + | Date | Type | Department | Care Team | Description | +--------+ + + + + | 06/14/ | Abstract | [facility] | Edgar Hampton, | | | 2010 | | [place] [facility] [address] | [address] | | | | | Debbie Mock | [address] | | | | | Mailcode: Center | [place], [place] | | | | | [facility] and | [address] | | | | | [facility] [address] | [phone] | | | | | [place], [place] | | | | | | [address] | | | | | | [phone] | | | +--------+ + + + [...]
--- OUTSIDE RECORDS SUMMARY | ~2019-11-22 | XMS | Encounter Summary ---
Demographics + + + | Address | [address] | | | [place] [address] | + + + | Home Phone | | + + + | Preferred Language | Unknown | + + + | Marital Status | | + + + | Buddhism Affiliation | 1077 | + + + | Race | Unknown | + + + | Ethnic Group | Unknown | + + + Author + + + | Author | [facility] | | | and [place] | + + + | Organization | [facility] | | | [...] Team Providers + +------+ + | Care Residential Real Estate Sales Manager Name | Role | Phone | + +------+ + | Aldo Frank DO | PCP | | + +------+ + Reason for Visit + + + | Reason | Comments | + + + | Back Pain | Lower back pain, mostly on the right | + + + Encounter Details +--------+---------+ + + + | Date | Type | Department | Care Team | Description | +--------+---------+ + + + | 09/11/ | Office | [facility] | Pj Riggs | Lumbar spondylosis | | 2019 | Visit | PHYSIATRY [address] | TMD [address] | (Primary Dx); | | | | [address] | [address] [place] | Chronic bilateral | | | | [place] | [address] | low back pain | | | | [address] | | without sciatica; | | | | [phone] | | Spondylosis of | | | | | | lumbar region | | | | | | without myelopathy | | | | | | or radiculopathy | +--------+---------+ + + + Social History [...] + + + | Blood Pressure | 148/70 | 09/11/2018 11:42 AM | | | | | PST | | + + + + + | Pulse | 74 | 09/11/2018 11:42 AM | | | | | PST [...] Weight | 83.9 kg (185 lb) | 09/11/2018 11:42 AM | | | | | PST | | + + + + + | Height | 175.3 cm (5' 9") | 09/11/2018 11:42 AM | | | | | PST | | + + + + + | Body Mass Index | 27.32 | 09/11/2018 11:42 AM | | | | | PST [...] of this encounter Patient Instructions Patient Instructions Krisitna Balderrama CMA - 09/11/2018 11:30 AM PSTPlease attend the inje ction appointment with Pj Riggs MD. If his office has not contacted you within one week, to schedule the injection, please contact my clinic. Your injection will be performed at [facility]. Please take note of whether your pain is significantly reduced in the hours immediately following the injection. Follow-up at the hospital thirty minutes before [...] of the procedure you must provide a special events driver to take you home. For all procedur es it is recommended that someone else drive you home. documented in this encounter Progress Notes Pj Riggs MD - 09/11/2018 11:30 AM PST [address] [facility], [address] [place] [address] FAX: PHYSICAL MEDICINE AND REHABILITATION H&P CHIEF COMPLAINT: Chief Complaint Patient presents with Back Pain Lower back pain, mostly on the right HISTORY OF PRESENT ILLNESS: The patient is a 73 y.o. male being seen today for follow up a t the request of Dr. Kemal Damian who wanted me to specifically discuss potential RFA. The ellie ent has a chronic history of back problems which ultimately resulted in the need for a lumba r fusion at the L2-L3 and L3-L4 levels. That surgery was performed by Dr. Damian in 2013. He also had a L1-2 LAIF on 06/19/[address] Damian. He did well for a time but unfortunately his symptoms have worsened over the last year. When he was seen previously it was determined t hat he had pain coming primarily from the lower lumbar facet joints. He had bilateral L4-L5 , L5-S1 facet joint injections which were performed by me on 07/22/2018. The patient reports t hat immediately after the injection he felt some improvement but it did not reach 50% and in fact he reports that he did not get significant relief of his symptoms until a week later and it only lasted for a couple weeks. He is here today to discuss other options. The patient is complaining today of pain [...] improve with rest and changing position. His leg symptoms account for less than [...] updated as appropriate. CURRENT MEDICATIONS: Current Outpatient Prescriptions Medication Sig [...] Take 1 tablet by mouth Daily. 0 hydrOXYzine pamoate (VISTARIL) 25 mg capsule Take 25 mg by mouth Daily. oxyCODONE-acetaminophen (PERCOCET) 5-325 mg per tablet Take 1 tablet by mouth as needed . Red Yeast Rice 600 MG CAPS Take 1,200 mg by mouth Daily. No current facility-administered medications for this visit. ALLERGIES: Allergies Allergen Reactions Povidone Iodine Hives and Rash "skin blackwell" Chlorhexidine Gluconate Rash and Other (See Comments) Redness Ezetimibe Other (See Comments) Reaction not specified in outside medical records Lovastatin Other (See Comments) Myalgias REVIEW OF SYSTEMS: GENERALLY: No fever, chills, [...] pain/arthritis, no Rheumatoid Arthritis PHYSICAL EXAMINATION: Vitals: 09/11/18 1142 BP: 148/70 Pulse: 74 PainSc: 5 PainLoc: Back Body mass index is 27.32 [...] has no apparent deficits with short or fpc memory. He has appropriate fund of knowledge [...] 5 region, maybe as low as L5-S1. Lumbar facet loading was positive especially to the right. Strength testing showed 5/5 strength throughout the lower extremities. The patient was abl e to heel and toe walk without difficulty. There was no redness, effusion, warmth or joint line tenderness in the knees or ankles. RADIOGRAPHIC REVIEW: The patient's imaging was reviewed in detail with the patient today during the visit. Lumb ar MRI from 2017 shows solid fusion from L1-L4 with adjacent segment disease at T12-L1 and L 4-L5. There is significant facet arthritis at L4-L5 and to a lesser degree at L5-S1. There is some foraminal stenosis at the L4-L5 level on the left. ASSESSMENT: 1. Lumbar spondylosis 2. Chronic bilateral low back pain without sciatica 3. Spondylosis of lumbar region without myelopathy or radiculopathy PLAN: 1) Today we discussed that based on his physical examination it does still appear that his pain is likely coming from the lumbar facet joints. We discussed that a more accurate way o f determining that is diagnostic medial branch blocks. We discussed that we could consider a trial of a medial branch block as the next step. I informed him that he would have to und ergo two blocks before RFA could ever be considered. 2) We discussed that his pain may be multifactorial as he does have DDD as well. If his pa in is discogenic in nature the medial branch blocks will not improve those symptoms. 3) Spinal cord stimulators were briefly discussed with the patient today. I advised him marah t if all other procedures fail to provide relief a spinal cord stimulator may be another pot entially beneficial treatment option. He does report that Dr. Damian has told him that he is n ot a candidate for additional corrective surgery and he is not interested in more surgery. I, Dr. Pj Riggs, personally performed the services described in this documentatio n, as scribed by HUI Sims in my presence, and it is both accurate and complete. ELECTRONICALLY EDITED AND SIGNED BY: Pj Riggs MD documented in [...] pain without sciatica | + + | Spondylosis of lumbar region without myelopathy or radiculopathy Lumbosacral | | spondylosis without myelopathy | + + documented in this encounter
--- OUTSIDE RECORDS SUMMARY | ~2019-11-22 | XMS | Encounter Summary ---
Demographics + + + | Address | [address] | | | [place] [address] | + + + | Home Phone [...] + | Ricarda Johnson | ECON | [address] | | | | | [place] | | | | | [address] | | + + + + + Care Team Providers + +------+ + | Care Termite Treater Helper Name | Role | Phone | + [...] Closed | | Radiology | Diagnoses | Berta | Rad Ct Scan | | | | | Malignant | Edgar Zuñiga MD | [address] | | | | | neoplasm of | [address] | [address] | | | | | rectum (HCC) | [address] | [place] [facility] | | | | | Sacral | [place] | [facility], | | | | | lesion | [place], [place] | 10th Floor | | | | | Procedures | | [place], [place] | | | | | CT CHEST, | Phone: | [phone] | | | | | ABDOMEN & | [phone] | Phone: | | | | | PELVIS W IV | Fax: | [phone] | | | | | CONTRAST | [phone] | Fax: | | | | | | | [phone] | +--------+--------+ + + + + Reason for Visit Diagnostic Testing (Routine) +--------+--------+ + + + + | Status | Reason | Specialty | Diagnoses / | Referred By | Referred To | | | | | Procedures | Contact | Contact | +--------+--------+ + + + + | Closed | | Radiology | Diagnoses | Herzig, | Rad Ct Scan | | | | | Malignant | Edgar Zuñiga MD | [facility] [address] | | | | | neoplasm of | [address] | [address] | | | | | rectum (HCC) | [address] | [place] [facility] | | | | | Sacral | [place] | [facility], | | | | | lesion | [place], [place] | 10th Floor | | | | | Procedures | | [place], [place] | | | | | CT CHEST, | Phone: | [phone] | | | | | ABDOMEN & | [phone] | Phone: | | | | | PELVIS W IV | Fax: | [phone] | | | | | CONTRAST | [phone] | Fax: | | | | | | | [phone] | +--------+--------+ + + + + Encounter Details +--------+ + + + + | Date | Type | Department | Care Team | Description | +--------+ + + + + | 06/20/ | Hospital | Radiation Medicine | | | | 2010 | Encounter | at [facility] [address] | | | | | | [address] | | | | | | [address] | | | | | | [place], [place] | | | | | | [address] | | | | | | [phone] | | | +--------+ + + + [...] for this | | | e | 4:24 AM | | procedure are in the | | | | PST | | results section. | + +--------+ + + + | CT CHEST, ABDOMEN | Routin | 06/20/2011 | Malignant neoplasm | Results for this | | AND PELVIS W IV | e | 3:18 PM | of rectum (HCC) | procedure are in the | | CONTRAST | | PST | Sacral lesion | results section. | + +--------+ + + + | CREATININE, POC | Routin | 06/20/2011 | | Results for this | | | e | 3:00 PM | | procedure are in the | | | | PST | | results section. | + +--------+ + + + | ORDERS OTHER | | 06/20/2011 | | Results for this | | | | 12:00 AM | | procedure are in the | | | | PST | | results section. | + +--------+ + + + documented in this encounter Results PROCEDURE NOTE (08/19/2015 4:24 AM PST) + + | Transcriptions | + + | Catarino, Faculty - 06/25/2011 2:00 PM PST | + + CT CHEST, ABDOMEN & PELVIS W IV CONTRAST (06/20/2011 3:18 PM PST) + + + + + + | Component | Value | Ref Range | Performed | Pathologist | | | | | At | Signature | + + + + + + | CT CHEST, | Rectal cancer. CT chest | | | | | ABDOMEN & | abdomen pelvis with oral | | | | | PELVIS W | and 100 cc IV | | | | | CONTRAST | Visipaque. Comparison: | | | | | | None. FINDINGS: CHEST: | | | | | | Heart and mediastinal | | | | | | vessels are | | | | | | unremarkable. There is | | | | | | nothoracic adenopathy, | | | | | | pleural, or pericardial | | | | | | effusion. Lungs | | | | | | areclear. ABDOMEN: | | | | | | Ill-defined geographic | | | | | | rounded hypoattenuating | | | | | | [id number] lesion | | | | | | within the medial | | | | | | segment at the portal | | | | | | vein bifurcationprobably | | | | | | represents focal fatty | | | | | | infiltration, though MR | | | | | | confirmationmay be of | | | | | | value pending PET scan | | | | | | results of the same day. | | | | | | 4-mmlateral right | | | | | | lobe hypodensity image | | | | | | 105 likely represents | | | | | | small cystor hemangioma. | | | | | | Gallbladder is | | | | | | contracted with multiple | | | | | | stones. Nobiliary | | | | | | duct dilation. | | | | | | Pancreas, spleen, | | | | | | adrenal glands, and | | | | | | kidneysare unremarkable. | | | | | | Scattered | | | | | | subcentimeter left renal | | | | | | hypodensitieslikely | | | | | | represent cysts. PELVIS: | | | | | | Bladder prostate and | | | | | | seminal vesicles are | | | | | | unremarkable.Expected | | | | | | postoperative changes of | | | | | | low anterior resection | | | | | | are notedwith diverting | | | | | | right lower quadrant | | | | | | loop ileostomy. Colon | | | | | | iscollapsed. No | | | | | | abdominal pelvic fluid | | | | | | abscess is present. | | | | | | There isno ascites or | | | | | | adenopathy. No | | | | | | suspicious osseous | | | | | | lesion. IMPRESSION: | | | | | | Probable focal | | | | | | geographic subcapsular | | | | | | fatty infiltration | | | | | | within themedial segment | | | | | | at the portal vein | | | | | | bifurcation which may be | | | | | | confirmedwith same day | | | | | | PET scan and possible MR | | | | | | as clinically | | | | | | indicated. No definite | | | | | | metastatic disease to | | | | | | the chest abdomen pelvis | | | | | | post lowanterior | | | | | | resection with diverting | | | | | | right lower quadrant | | | | | | loopileostomy. | | | | | | Cholelithiasis. | | | | | | Attending [...] Peralta | | | | | | 06/20/2011 15:39 PM | | | | + + + + + + + + | Specimen | + + | | + + + +---------+ + + | Performing | Address | City/State/Zipcode | Phone Number | | Organization | | | | + +---------+ + + | [facility] DEPARTMENT OF | | | | | RADIOLOGY | | | | + +---------+ + + ROUTINE CHEMISTRY TESTS (RADIOLOGY), POC (06/20/2011 3:00 PM PST) + +---------+ + + + | Component | Value | Ref Range | Performed | Pathologist | | | | | At | Signature | + +---------+ + + + | BUN, POC | 20 | 6 - 20 mg/dL | [facility] | | | | | | [place] | | | | | | [facility] | | | | | | OF CARE | | | | | | TESTS | | + +---------+ + + + | CREATININE, | 1.4 (H) | 0.7 - 1.3 mg/dL | [facility] | | | POC | | | [place] | | | | | | [facility] | | | | | | OF CARE | | | | | | TESTS | | + +---------+ + + + + + | Specimen | + + | | + + + + + + + | Performing | Address | City/State/Zipcode | Phone Number | | Organization | | | | + + + + + | [facility] [place] | [address] | [place], [place] | | | [facility] OF CARE | [facility] | [address] | | | TESTS | | | | + + + + + ORDERS OTHER (06/20/2011 12:00 AM PST) + + + | Narrative | Performed At | + + + | | | + + + + + | Transcriptions | + + | Cy Toribio - 11/28/2011 11:31 AM PDT | + + documented in this encounter Visit Diagnoses + + | Diagnosis | + + | Malignant neoplasm of rectum (HCC) Malignant neoplasm of rectum | + + | Sacral lesion Disorders of sacrum | + + documented in this encounter"
--- OUTSIDE RECORDS SUMMARY | ~2019-11-22 | XMS | Encounter Summary ---
Demographics + + + | Address | [address] | | | [place] [address] | + + + | Home Phone | | + + + | Preferred Language | Unknown | + + + | Marital Status | | + + + | Gnosticist Affiliation | PRE | + + + | Race | White | + + + | Ethnic Group | Not or | + + + Author + + + | Author | [facility] | + + + | Organization | [facility] | + + + | Address | Unknown | + + + | Phone | Unavailable | + + + Support + + + + + | Name | Relationship | Address | Phone | + + + + + | Ricarda Johnson | ECON | [address] | | | | | [place] | | | | | [address] | | + + + + + Care Team Providers + +------+ + | Care Industrial Truck Mechanic Name | Role | Phone | + +------+ + | Hay Greco MD | PCP | | + +------+ + Encounter Details +--------+ + + + + | Date | Type | Department | Care Team | Description | +--------+ + + + + | 07/10/ | Abstract | [facility] | Clinic, Surgery | | | 2010 | | [place] [facility] [address] | | | | | | Debbie Mock | | | | | | Mailcode: [facility] | | | | | | [facility] | | | | | | [facility], [address] | | | | | | [place], [place] | | | | | | [address] | | | | | | [phone] | | | +--------+ + + + [...]
--- OUTSIDE RECORDS SUMMARY | ~2019-11-22 | XMS | Encounter Summary ---
Demographics + + + | Address | [address] | | | [place] [address] | + + + | Home Phone [...] Team Providers + +------+ + | Care Regulatory Affairs Portfolio Leader Name | Role | Phone | + +------+ + | Hay Greco MD | PCP | | + +------+ + Encounter Details +--------+ + + + + | Date | Type | Department | Care Team | Description | +--------+ + + + + | 11/09/ | Orders Only | [facility] | Kirk Javier | S/P lumbar fusion | | 2014 | | NEUROSURGERY [address] | [address] | (Primary Dx) | | | | [address] | [address] | | | | | [place], [place] | [place] [address] | | | | | [address] | [phone] | | | | | [phone] | | | +--------+ + + + [...] XR Lumbar Spine 2 or 3 Vw (11/18/2013 10:11 AM PDT) + + | Specimen | + + | | + + + + + | Narrative | Performed At | + + + | LIMITED LUMBAR SPINE: 11/18/2013 10:10 AM CLINICAL HISTORY: Postop | MISCELANIOUS | | COMPARISON: 10/23/2013 FINDINGS: Posterior pedicle screw and | LAB | | aimee fixation and interbody fusion is present across L2-L3 and L3-L4. | | | Interspinous plate is also present at L2-L3. Fixation hardware is in | | | unchanged position when compared to prior. There is stable mild | | | retrolisthesis of L1 on L2. Alignment is normal through the fused | | | segments. Minimal retrolisthesis of L4 on L5. Disc space narrowing | | | with vacuum disc phenomenon and endplate sclerotic change at L4-L5. | | | These are all stable features when compared to prior. No new bony or | | | soft tissue abnormality. IMPRESSION - Stable L2-L4 posterior | | | pedicle screw and aimee and interbody fusions. Stable L2-L3 | | | interspinous fixation. Dictated and Signed by: Izaiah Ansari MD | | | Electronically signed: 11/18/2013 1:11 PM | | + + + + + | Procedure Note | + + | Dwayne Mendoza Results In - 11/18/2013 1:14 PM PDT LIMITED LUMBAR SPINE: 11/18/2013 10:10 AM | | | | CLINICAL HISTORY: Postop | | | | COMPARISON: 10/23/2013 | | | | FINDINGS: Posterior pedicle screw and aimee fixation and interbody fusion is | | present across L2-L3 and L3-L4. Interspinous plate is also present at L2-L3. | | Fixation hardware is in unchanged position when compared to prior. There is | | stable mild retrolisthesis of L1 on L2. Alignment is normal through the fused | | segments. Minimal retrolisthesis of L4 on L5. Disc space narrowing with vacuum | | disc phenomenon and endplate sclerotic change at L4-L5. These are all stable | | features when compared to prior. No new bony or soft tissue abnormality. | | | | IMPRESSION - Stable L2-L4 posterior pedicle screw and aimee and interbody fusions. | | Stable L2-L3 interspinous fixation. | | | | Dictated and Signed by: Izaiah Ansari MD | | Electronically signed: 11/18/2013 1:11 PM | + + + +---------+ + + | Performing | Address | City/State[facility] | Phone Number | | Organization | | | | + +---------+ + + | M[facility]LL[facility]OUS LAB | | | [phone] | + +---------+ + + | MISCELANIOUS LAB | | | [phone] | + +---------+ + + documented in this encounter Visit Diagnoses + + | Diagnosis | + + | S/P lumbar fusion - Primary Arthrodesis status | + + documented in this encounter"
--- OUTSIDE RECORDS SUMMARY | ~2019-11-22 | XMS | Encounter Summary ---
Demographics + + + | Address | [address] | | | [place] [address] | + + + | Home Phone | | + + + | Preferred Language | Unknown | + + + | Marital Status | | + + + | Jehovah'S Witness Affiliation | 1077 | + + + | Race | Unknown | + + + | Ethnic Group | Unknown | + + + Author + + + | Author | [facility] | | | and [place] | + + + | Organization | [facility] | | [...] Team Providers + +------+ + | Care Coding Quality Analyst Name | Role | Phone | [...] | | | | back | | [address] Phone: | | | | | syndrome | | [phone] | | | | | Procedures | | Fax: | | | | | DE SURG | | [phone] | | | | | IMPLNT | [...] STIMULATOR | | | | [address] | [address] | | | | | [place], [place] | [place] [address] | | | | | [address] | [phone] | | | | | [phone] | | | +--------+---------+ + + + [...] You can't be awakened Date Last Reviewed: 05/01/201619994892-9352 [employer]. [address] [place] [address], [place] [id number]. All righ ts reserved. This information is [...] | | [place] | | | n [place] | | | Frame | +---+--------+ | [...] | [address] | [place] | [phone] | | [facility] | | [address] | | | - LABORATORY | | [...] ONCE PRN, | | | Wheezing, Starting [facility] 06/18/19 at | | | 0623, For 1 dose, Pre-op | | + +---+ | | | + +---+ | albuterol-ipratropium 2.5-0.5 | | | mg/3 mL nebulizer solution 3 mL | | | 3 mL, Nebulization, ONCE PRN, | | | Wheezing, Shortness of Breath, | | | Starting [facility] 06/18/19 at 0926, For | | | 1 dose, Recovery/Phase I | | + +---+ | | | + +---+ + +-------+ +---------+---+ + | bacitracin injection PRN, | Given | 06/18/20 | 50,000 | | Surgical | | Starting [facility] 06/18/19 at 0850, | | 19 [...] | | | | | | longer, djfkld-bni-jzame use of | | | | | [...] | | | For HR <50, Starting [facility] 06/18/19 | | | at 0926, [...] DBP > 100, | | | Starting [facility] 06/18/19 at 0926, | | | Hold if HR > 100. Maximum total | | | dose 40 mg. Use labetalol first | | | if available., Recovery/Phase I | | + +---+ | | | + +---+ | HYDROmorphone (DILAUDID) | | | injection 0.2-0.4 mg 0.2-0.4 mg, | | | Intravenous, EVERY 5 MIN PRN, | | | Pain, Starting [facility] 06/18/19 at | | | 0926, [...] One week or longer, | | | jayfpl-kuy-rtlgb use of at least | | | [...] | mL/hr | | | CONTINUOUS, Starting [facility] 06/18/19 | | AM PST | | | | | at 0645, Pre-op | | | | | | + +---------+ +--------+-------+---+ + +---+ | | | + +---+ | lactated ringers (LR) infusion | | | at 10-100 mL/hr, Intravenous, | | | CONTINUOUS, Starting [facility] 06/18/19 | | | at 0645, TKO. Use unless patient | | | is on dialysis., Pre-op | | + +---+ | | | + +---+ + +-------+ +--------+---+ + | lidocaine 1%-EPINEPHrine | Given | 06/18/20 | 10 mLs | | Surgical | | 1:100,000 injection PRN, | | 19 8:28 | | | Site | | Starting [facility] 06/18/19 at 0828, | | AM [...]
--- OUTSIDE RECORDS SUMMARY | ~2019-11-22 | XMS | Encounter Summary ---
Demographics + + + | Address | [address] | | | [place] [address] | + + + | Home Phone [...] Team Providers + +------+ + | Care Tentering Machine Feeder Name | Role | Phone | + +------+ + | Aldo Frank DO | PCP | | + +------+ + Reason for Visit + + + | Reason | Comments | + + + | Pain Management | intial encounter | + + + Encounter Details +--------+ + + + + | Date | Type | Department | Care Team | Description | +--------+ + + + + | 05/11/ | Documentati | [facility] | Geraldo Bass | Pain Management | | 2019 | on | [address] | MD Farhat [address] | (intial encounter) | | | | [address] | [address] | | | | | [place] | [place] [address] | | | | | [address] | [phone] | | | | | [phone] | | | +--------+ + + + [...] documented as of this encounter Progress Notes Nazario Means, Radio Equipment Installer - 05/11/2019 2:42 PM PDTPatient states he is not taking n arcotic medication. Opioid Risk Tool (ORT): Total Score 0 (05/12/19 9940) (0 to 3 = Low risk: 6% chance of developing problematic behaviors, 4 to 7 = Moderate risk: 28% chance of developing problematic behaviors, 8 or more = High risk: 90% chance of develop ing problematic behaviors.) PEG Pain screening tool (Pain, enjoyment, general activity) Total score: 4.33 ( 9 1047) PHQ9 Depression scale: Date of Last Screening Total Score 4 (05/12/19 1047) (1-4 = Minimal depression, 5-9 = Mild depression, 10-14 = Moderate depression, 15-19 = Mode rately severe depression, 20-27 = Severe depression) General Anxiety Disorder (OBED-7): Total Score 0 (05/12/19 1046) (8-9 = consistent with Generalized anxiety disorder, >15 = severe) [facility] AUDIO ENGINEER was checked on 05/12/19 and no medications have been dispensed i n the last 3 months. document ed in this encounter Plan of Treatment Not on filedocumented as of this encounter Visit Diagnoses Not on filedocumented in this encounter"
--- OUTSIDE RECORDS SUMMARY | ~2019-11-22 | XMS | Encounter Summary ---
Demographics + + + | Address | [address] | | | [place] [address] | + + + | Home Phone | | + + + | Preferred Language | Unknown | + + + | Marital Status | | + + + | Uatsdin Affiliation | PRE | + + + [...] + | Ricarda Johnson | ECON | [address] | | | | | [place] | | | | | [address] | | + + + + + Care Team Providers + +------+ + | Care Plate Glass Polisher Name | Role | Phone | + +------+ + | Hay Greco MD | PCP | | + +------+ + Reason for Visit +---------+ + | Reason | Comments | +---------+ + | Post Op | | +---------+ + Encounter Details +--------+ + + + + | Date | Type | Department | Care Team | Description | +--------+ + + + + | 11/05/ | Telephone | [facility] | Edgar Hampton | Post Op | | 2011 | | [facility] [address] | [address] | | | | | Debbie Mock | [address] | | | | | Mailcode: Center | [place], [place] | | | | | [facility] and | [address] | | | | | [facility] | [phone] | | | | | [place], [place] | | | | | | [address] | | | | | | [phone] | | | +--------+ + + + [...] + | Diagnosis | + + | Frequent stools Diarrhea | + + | Loose stools Abnormal feces | + + documented in this encounter"
--- OUTSIDE RECORDS SUMMARY | ~2019-11-22 | XMS | Encounter Summary ---
Demographics + + + | Address | [address] | | | [place] [address] | + + + | Home Phone | | + + + | Preferred Language | Unknown | + + + | Marital Status | | + + + | Gnosticism Affiliation | 1077 | + + + | Race | Unknown | + + + | Ethnic Group | Unknown | + + + Author + + + | Author | [facility] | | | and [place] | + + + | Organization | [facility] | | [...] Team Providers + +------+ + | Care Skatesman Name | Role | Phone | + +------+ + | Aldo Frank DO | PCP | | + +------+ + Reason for Visit + + + | Reason | Comments | + + + | Back Pain | Lower back into legs - worsens when walking | + + + Surgical (Routine) + + + + + + + | Status | Reason | Specialty | Diagnoses / | Referred By | Referred To | | | | | Procedures | Contact | Contact | + + + + + + + | Authorized | Specialty | Neurosurgery | Diagnoses | | [place], | | | Services | | Failed back | [place], | Geraldo Dougherty MD | | | Required | | surgical | Pj Singer MD | [address] | | | | | syndrome | [address] | | | | | S/P lumbar | [address] | [address] | | | | | fusion | [place] | [place] | | | | | | [address] | [address] Phone: | | | | | | Phone: | [phone] | | | | | | [phone] | Fax: | | | | | | Fax: | [phone] | | | | | | [phone] | | + + + + + + + Encounter Details +--------+---------+ + + + | Date | Type | Department | Care Team | Description | +--------+---------+ + + + | 05/12/ | Office | [facility] | Geraldo Bass | S/P cervical spinal | | 2019 | Visit | NEUROSURGERY [address] | MD [place] [address] | fusion (Primary Dx); | | | | [address] | [address] | Lumbar radicular | | | | [place] | [place] [address] | pain; Facet | | | | [address] | [phone] | arthropathy of | | | | [phone] | | spine; Failed back | | | | | | surgical syndrome; | | | | | | Thoracic spondylosis | +--------+---------+ + + + Social [...] + + + | Blood Pressure | 132/80 | 05/12/2019 10:32 AM | | | | | PDT | | + + + + + | Pulse | 62 | 05/12/2019 10:32 AM | | | | | PDT | | + + + + + | Temperature | - | - | | + + + + + | Respiratory Rate | - | - | | + + + + + | Oxygen Saturation | 98% | 05/12/2019 10:32 AM | | | | | PDT | | + + + + + | Inhaled Oxygen | - | - | | | Concentration | | | | + + + + + | Weight | 85.7 kg (188 lb 15 | 05/12/2019 10:32 AM | | | | oz) | PDT | | + + + + + | Height | 175.3 cm (5' 9") | 05/12/2019 10:32 AM | | | | | PDT | | + + + + + | Body Mass Index | 27.9 | 05/12/2019 10:32 AM | | | | | PDT [...] of this encounter Patient Instructions Patient Instructions Bianka Reina Cert MA - 05/12/2019 10:30 AM PDT - We discussed putting a permament spinal cord stimulator using Nevro. Surgery is similar t o the trial surgery except you will have a 1.5 inch incision. - You will need to charge the spinal cord stimulator daily. You will return 1 week after vinson rgery for post op. - We will submit for your surgery and once approved we can get that scheduled. -We will call you 2 business days prior to your scheduled surgery to let you know when to [facility] [...] uprofen, Motrin, Advil, aspirin, naproxen, and Aleve. documented in this encounter Progress Notes Geraldo Bass MD - 05/12/2019 10:30 AM PDT Geraldo Bass MD [address] [place] [address], [address] [place] [address] FAX: [phone] NEUROSURGERY HISTORY AND PHYSICAL EXAMINATION CHIEF COMPLAINT: Chief Complaint Patient presents with Back Pain Lower back into legs - worsens when walking HISTORY OF PRESENT ILLNESS: Cosmo Johnson is a 73 y.o. male with the complaint of b ack and bilateral leg symptoms that began several years ago. He had a Nevro trial by Dr. Jose galicia on 03/25/2019 with benefit and is here now to discuss a permanent placement. Patient was last seen by Kirk Javier PA-C on 03/25/2018 with complaints of back pain that wasn't improving. His back pain was worse than the leg pain. He had a L1-2 LAIF w/ Lateral Plating for back and leg symptoms around 06/19/[address] Damian. The back symptoms have been gradually worsening. [...] to the bathroom but this has been on going . He has tried Physical Therapy, Surgery, Opioids, NSAIDS, Steroids and Injections. He has damon d two injections first one was a bilateral lumbar facet steroid injection at L4-L5 and L5-S1 on 07/22/2018 and the second injection was a bilateral L3, L4 medial branch blocks and bila teral L5 dorsal ramus blocks on 09/25/[address] Riggs. He is not currently taking op iates, muscle relaxer's, or nerve medications. wanted to make certain that he did not have a significant thoracic spondylosis problem and ordered a thoracic MRI which I have reviewed. PAST MEDICAL HISTORY: Past Medical History: Diagnosis [...] Laterality: N/A; Surgeon: Kemal Damian MD; Location: [facility] MAIN OR LUMBAR LAMINECTOMY Dr. Tavarez LUMBAR SPINE SURGERY N/A 06/19/2017 Procedure: L1-2 LAIF w/ Lateral Plating; Surgeon: Kemal Damian MD; Location: [facility] MAIN OR SD NJX DX/THER SBST EPIDURAL/SUBRACH CERV/THORACIC N/A 03/25/2019 Procedure: SCS; Surgeon: Pj Riggs MD; Location: [facility] INTERVENTIONAL RADIOLOGY SMALL INTESTINE SURGERY 2011 Rectal [...] has never used smokeless tobacco. He reports that he drinks about 3.6 oz of [...] known problems Paternal Grandfather Review of Systems HENT: Positive for tinnitus. Gastrointestinal: Positive for constipation and diarrhea. Musculoskeletal: Positive for back pain. Endo/Heme/Allergies: Bruises/bleeds easily. Psychiatric/Behavioral: Positive for memory loss. PHYSICAL EXAMINATION: Blood pressure 132/80, pulse 62, height 1.753 m (5' 9"), weight 85.7 kg (188 lb 15 oz), SpO 2 98 %. Body mass index is 27.9 kg/m. GENERAL: Cosmo Johnson is in no [...] has no apparent deficits with short or snf memory. CRANIAL NERVES: II: Acuity is intact. [...] Flexion 5 5 Wrist Extension 5 5 Interossei 5 5 APB 5 5 Barrel Drum Cutter Strength 5 5 Hip Flexion 5 5 Hip Extension 5 5 Knee Flexion 5 5 Knee Extension 5 5 Dorsiflexion 5 5 Extensor Hallicus Longus 5 5 Plantarflexion 5 5 SENSORY EXAM: Sensory exam shows no diminished sensation to light touch or pain throughout the upper and lower extremities. REFLEXES: (2 OR 2+ IS NORMAL) REFLEX: RIGHT LEFT BICEPS 1 1 BRACHIORADIALIS 1 1 TRICEPS 1 1 PATELLAR 1 1 ACHILLES 1 1 LAUREN'S [...] trial. NEUROSURGICAL DIAGNOSES: Encounter Diagnoses Name Primary? 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 Patient verbalizes understanding and is willing to proceed with placement of spinal cord st imulator. I would like this patient to follow up with a neurosurgery PA for pre op. I, Geraldo Bass MD, personally performed the services described in this documentatio n, as scribed by KAT Silvestre in my presence, and it is both accurate and complete. Geraldo Bass MD 05/12/19 ELECTRONICALLY SIGNED BY: Geraldo Bass MD, 05/12/2019 11:35 documented in this encounter Plan of Treatment Not on filedocumented as of this encounter Visit Diagnoses + + | Diagnosis | + + | S/P cervical spinal fusion - Primary Arthrodesis status | + + | Lumbar radicular pain Thoracic or lumbosacral neuritis or radiculitis, unspecified | + + | Facet arthropathy of spine Spondylosis of unspecified site without mention of | | myelopathy | + + | Failed back surgical syndrome Other unspecified back disorder | + + | Thoracic spondylosis Thoracic spondylosis without myelopathy | + + documented in this encounter
--- OUTSIDE RECORDS SUMMARY | ~2019-11-22 | XMS | Encounter Summary ---
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 [address] | (Primary Dx); Rectal | | | | [facility] 4th Floor [address] | cancer (HCC); | | | | [address] | [place], [place] | Malignant neoplasm | | | | Mailcode: [id number] | [id number] | of rectum ([facility]); | | | | [facility] | | Hyperlipidemia; | | | | and Healing, | | Bacteremia; MSSA | | | | Building 1,4th Floor | | (methicillin | | | | [place], [place] | | susceptible | | | | [address] | | Staphylococcus | | | | [phone] | | aureus) septicemia | | | | | | (HCC); Left hip | | | | | | pain; Fracture of | | | | | | sacrum ([facility]); HTN | | | | | | (hypertension); | | | | | | Chest pain; Anemia; | | | | | | Encounter for | | | | | | long-term (current) | | | | | | use of antibiotics; | | | | | | Other specified | | | | | | pre-operative | | | | | | examination | +--------+---------+ + + + Anesthesia Record + + [...] | | | 7 | | reviewed, PARQ held, anesthetic plan made or approved by [...] | Meds | +------+ + + + No medications | on file. | + + + + + | No agents on file. | + + + + | No [...] + + | RETIRE | 10/31/11; 11/01/11; 09; No; | 10/31/11 0000 by | 11/01/11 [...] + | RETIRE | 10/31/11; 11/03/11; No; 07/18 inch; | 10/31/11 0000 by | 11/03/11 0000 by | | D - | [place]; Anterior, Right; | Pushpa Norwood RN | Rosa Pena, | | Drains | Abdomen | | RN | | | | | | | (wound | | | | | s/surg | | | | | ical) | | | | +--------+ + + + | RETIRE | 10/31/11; 0642; 11/03/11; 0857; | 10/31/11641 by | 11/03/11 0857 by | | D - | No; [...] + + + | Blood Pressure | 141/86 | 10/30/2011 12:12 PM | | | | | PDT | | + + + + + | Pulse | 72 | 10/30/2011 12:12 PM | | | | | PDT | | + + + + + | Temperature | 35.6 C (96.1 F) | 10/30/2011 12:12 PM | | | | | PDT | | + + + + + | Respiratory Rate | 14 | 10/30/2011 12:12 PM | | | | | PDT | | + + + + + | Oxygen Saturation | 98% | 10/30/2011 12:12 PM | | | | | PDT | | + + + + + | Inhaled Oxygen | - | - | | | Concentration | | | | + + + + + | Weight | 82.6 kg (182 lb) | 10/30/2011 12:12 PM | | | | | PDT | | + + + + + | Height | 175.3 cm (5' 9") | 10/30/2011 12:12 PM | neck 40.5cm | | | | PDT | | + + + + + | Body Mass Index | 26.88 | 10/30/2011 12:12 PM | | | | | PDT | | + + + + + documented in this encounter Patient Instructions Patient Instructions Jeanne Abraham NP - 10/30/2011 12:23 PM PDTPREOPERATIVE INSTRUCTI ONS Drink plenty of fluids day before surgery Do not eat or drink anything after midnight the night before surgery. Take only the following medications morning of surgery with small sips water: Dicloxacillin Do not take any Aspirin, vitamin E [...] OR NON-STEROIDAL ANTI-INFLAMMATORY DRUGS (NSAIDs) Advil, Aleve, [place], Anacin, Arthopan, Ascriptin, Aspergum, Aspirin with and without codeine, Chikis aspirin. Bufferin, Butalbital, Butazone, Cataflam, Clinoril, Co-Advil, Coges ic, Daypro, Diclofenac, Diflunisal, Dipyridamole, Disalcid, Declan s, Dolene, Dolobid, Easpi rin, Etodolac, Feldene, Fenoprofen, Ibuprofen, Indocin, Indomethacin, Lodine, Meclofenamate, Menadol, Meprobamate/Aspirin, Midol, Motrin and Motrin IB, Nabumetone, Naproxen, Norgesic, Nuprin, Nytol, Nyquil, Orudis, Oruvail, Oxyphenbutazone, Pamprin, Pepto Bismol, Percodan, P ersantine, Phenylbutazone, Piroxicam, Relafen, Robomol, Rufen, Sine-aid, [place] s cold tablets, Sulindac, Talwin, Tolectin, Triaminicin, Trigesic, Voltaren, Zorprin. OTHER PRODUCTS WHICH MAY PROMOTE BLEEDING Vitamin E, Gingko Biloba Important Guidelines Please do not shave the surgical site before the surgery Do not smoke, drink alcohol or use recreational drugs for 24 hours before your surgery Do not eat any hard candy or chew gum after midnight the night before your surgery. Watch for any change in your health condition. Let your surgeon know right away if you do not feel well. Do not wear makeup, perfume, lotions or powder. Remove any nail tanzanian from at least one fingernail. Do not wear any jewelry to the hospital. Wear loose, comfortable clothing. Bring the case and solution for your contact lenses or wear your glasses. Leave all your valuables at home. Allow enough travel time so you re not late for your check in for surgery. Please remember to brush your teeth the night before and the morning of your procedure. HIBICLENS GUIDE TO GENERAL SKIN CLEANSING AT HOME BEFORE SURGERY General Skin Cleansing Instructions: Hibiclens is not to be used on the head or face, keep out of the eyes, ears and mouth. Hibiclens is not to be used in the genital area. Hibiclens should not be used if you are allergic to chlorhexidine gluconate or any other in gredients in this preparation. *See Hibiclens label for full product information and precautions. When you bathe or shower the night before your surgery: If you plan to wash your hair, do so with your regular shampoo. Then rinse hair and body th oroughly to remove any shampoo residue. Wash your face with your regular soap or water only. Thoroughly rinse your body with warm water from neck down. Use Hibiclens as you would any other liquid soap. Please do not put the Hibiclens on a wash cloth, apply directly to the skin and wash gently. Apply the minimum amount of Hibiclens n ecessary to cover the skin. Leave the Hibiclens on your skin for 1 minute, then rinse off. Rinse thoroughly with warm water. Do not use your regular soap after applying and rinsing Hibiclens. When using Hibiclens for a second day in a row (morning of surgery, as soon as you wake up) : Shower/bathe again using Hibiclens in the same method as described above. Do not apply any lotions, deodorants, powders or perfumes to the body areas that have been cleaned with Hibiclens. Pain management after surgery Following surgery, at [...] such activities to help prevent complic ations. Preventing post op complications Use an incentive spirometer or peep breathe [...] ask you to sit, stand or walk. Surgery Check in Locations Admitting [facility], ninth floor [facility] Surgery Check in Time: Someone from your surgeon's office will provide you with informat ion regarding your check in time. If you have any questions about this, please contact your surgeon's office. Going Home Your surgical team will decide when you are medically ready to go home. You will require transportation home on the day of discharge. Pain medications and physi jacob activity restrictions may limit your ability to drive safely. It is also recommended th at you have someone assist you and look after you on the first night after you are released to go home. If you stayed in the hospital after surgery, please arrange for your ride to come for yo u around 9AM on the day your doctor says you can go home. Check out time is 11AM. If you have questions or concerns after you go home, call your doctor s office. If it is after office hours, call the [facility] screw driver operator at [phone] and ask them to page your doctor . documented in this encounter Progress Notes Ne Benites - 10/30/2011 1:47 PM PDT Venipuncture performed in clinic, blood sample obtained from Right antecubital site Hemoglo bin A1C POCT performed during clinic visit. Blood sample obtained from venipuncture performe d to obtain other lab tests. Jeanne Schreiber NP - 12:50 PM PDT PREOPERATIVE CONSULT NOTE Consulting Provider: JEANNE ABRAHAM NP Referring Physician: Berta Primary Care Provider: Marly Greco MD Reason for Consult: Preoperative evaluation and risk assessment Proposed Procedure/Date: ILEOSTOMY TAKEDOWN on 10/31/2011 HISTORY OF PRESENT ILLNESS: Cosmo Johnson is a 66 y.o. male here for preoperative ev aluation for above procedure. Pt has dx of stage III rectal carcinoma , diagnossed in 2009. Currently no pain or other symptoms. Complicated medical history. For further ROS/PE see be low. This patient's health has otherwise been stable and He has no other notable chronic medical conditions that would impact his perioperative time. He has no hx nor symptoms of CAD, CHF, CVA, CKD, or DM (treated with insulin). Function ca pacity is Intermediate. ROS: Preoperative Patient Questionnaire was reviewed with the patient. Document will be sc anned in goviral. Current Medication List 10/30/11 12:40 PM Name Sig EXCEDRIN MIGRAINE ORAL Take by mouth. DICLOXACILLIN 500 MG CAP Take 1 Cap by mouth four times daily. GLUCOSAMINE CHONDROITIN MAXSTR ORAL Take by mouth once daily. MULTIVITAMIN CAP Take 1 Cap by mouth once daily. OMEGA-3 FATTY ACIDS-VITAMIN E 1,000 MG CAP Take by mouth. Allergies Allergen Reactions Doxycycline Rash Betadine (Povidone-Iodine) Rash Literally blackwell skin and causes welts. Past Medical History Diagnosis Date Hyperlipidemia 10 years on lipitor Malignant neoplasm of rectum High risk for colon cancer Chronic headaches Past Surgical History Procedure Date Lumbar fusion 2010 L4-L5 Oral surgery Hand surgery 1961 Left hand Hernia repair 1956 bilateral repairs at separate times inguinal Family History Problem Relation Heart Disease Mother d. CHF Heart Disease Father d. [place] History Substance Use Topics Smoking status: Never Smoker Smokeless tobacco: Never Used Alcohol Use: 7.0 oz/week 14 drink(s) per week PHYSICAL EXAM: Last Vitals: BP 141/86 | Pulse 72 | Temp (Src) 35.6 C (96.1 F) (Oral) | RR 14 | Ht 175. 3 cm (5' 9") | Wt 82.555 kg (182 lb) | SpO2 98% | BMI 26.88 kg/(m^2) Body mass index is 26.8 8 kg/(m^2). 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 Has no asthma Cardiovascular: Walks for 2.5 miles 5/week, calisthenics for 20 mins-does not bring on chest pain. Had episode of chest pain in July, stress echo neg ischemia, denies chest pains since. Within Defined Limits except as noted below Functional Capacity: Moderate - chest pressure and syncope no CAD no CHF hypertension well controlled Vascular: VASCULAR SYMPTOMS hyperlipidemia no pacemaker GI/Hepatic: Within Defined Limits except as noted below no GI Bleed no GERD No liver disease no hepatitis : Within Defined Limits except as noted below Endo: Within Defined Limits except as noted below Neurological: no seizures HX CORTICOSTEROID Remote > 6 months no psychiatric problem no dementia MS: Arthritis, osteomyelitis with Mssa, treated by ID with long course antibiotics, now on oral dicloxacillin and pt feels better, saw ID this month and they are aware of ileostomy procedure.s/p lumbar spine fusion Within Defined Limits except as noted below no arthritis Heme/Onc: Stage III rectal carcinoma, s/p chemo 01/2011, XRT last 05/2010 and ileostomy. Within Defined Limits except as noted below Pt. has: no active bleeding no Bleeding diathesis / thrombotic bleeding other heme, anemia Malignancy: no cancer, Location: Metastasis: Skin: Within Defined Limits except as noted below No open wounds or sores No hx MRSA/VRE/Active skin infection Physical Exam General: Patients general appearance: Healthy, Alert, No distress, Cooperative and Age appropriate Head & Neck/Airway: Neck ROM: full Dentition: dentition is normal dental implants, bridges or caps present no Schaefer Mallampati: II Mouth Opening: > = 3 cm C-Spine: normal Neck Anatomy: Normal Jaw Protrusion: Normal, lower incisors can protrude past upper incisors Lung Exam: No respiratory distress. Normal breathing pattern. breath sounds normal Cardiac: No murmurs, gallops or rubs. Rhythm: regular Rate: normal Abdominal: General Findings: Deferred Musculoskeletal: Findings: tone normal Neuro/Psych: Alert and appropriate; nl affect. alert Findings: No tremor, Alert, oriented to person, place, time and Normal affect Integument: No open rashes or lesions noted. - lesion, rash and open wounds Color: pink Turgor: turgor normal Implants: Comments: Denies problems with anesthesia LAB DATA REVIEWED/ORDERED Lab Results Component Value Date WBC 4.6 10/10/2011 HB 12.4 10/10/2011 HCT 36.4 10/10/2011 PLT 186 10/10/2011 MCV 95 10/10/2011 RDW 12.9 10/10/2011 Lab Results Component Value Date NA 138 10/10/2011 K 4.9 10/10/2011 CL 107 10/10/2011 BICARB 21 10/10/2011 BUN 25 10/10/2011 CR 1.49 10/10/2011 GLU 98 10/10/2011 CA 9.4 10/10/2011 AST 17 10/10/2011 ALT 11 10/10/2011 AP 87 10/10/2011 TBILI 0.5 10/10/2011 TP 6.8 10/10/2011 ALB 4.4 10/10/2011 Lab Results Component Value Date ABO A 07/26/2010 RH Positive 07/26/2010 Lab Results Component Value Date A1C 5.1 10/30/2011 EKG: NSR on 08/03/11 ECHO of 08/07/11: Final Impressions: 1. There are no valvular vegetations noted. 2. LV systolic function is normal MEDICAL DECISION MAKING: Surgery Risk: Intermediate Patient-related risk: 3E RCRI -- 0.4% 2007 ACC/ AHA Perioperative Guidelines Pt does not meet guidelines for further testing MET ASSESSMENT: 5. METS--walking briskly, washing the car. ASSESSMENT and RECOMMENDATIONS: Surgical/anesthesia risk assessment: Cosmo Johnson is a 66 y.o. male with diagnos is of above, scheduled for above. According to ACC/AHA, this patient has 0 clinical risk fa ctors and the recommendation is to proceed. Medication management recommendations: The patient was advised to continue all usual med ications except as noted in Patient Instructions (After Visit Summary given to pt) Perioperative antibiotic prophylaxis: Standard (Consider IV Vanco one hr before procedu re in pts with Cephalosporin/PCN allergy and/or with hx of MRSA) This patient is medically stable for surgery at this time. Further testing/optimization is not needed at this time. Thank you for the opportunity to contribute to this patient's care. YUDY Grider NP [facility] [address] [place] [address] [phone] documented in this encounter Plan of Treatment Not on filedocumented as of this encounter Procedures + +--------+ + + + | Procedure Name | Priori | Date/Time | Associated Diagnosis | Comments | | | ty | | | | + +--------+ + + + | PROCEDURE NOTE | Routin | 08/19/2015 | | Results for this | | | e | 2:51 AM | | procedure are in the | | | | PST | | results section. | + +--------+ + + + | AR COLLECTION VENOUS | Routin | 10/30/2011 | Other specified | | | BLOOD,VENIPUNCTURE | e | 1:47 PM | pre-operative | | | | | PDT | examination | | + +--------+ + + + | HEMOGLOBIN A1C, POC | Routin | 10/30/2011 | Rectal cancer | Results for this | | | e | 11:41 AM | (HCC) | procedure are in the | | | | PDT | | results section. | + +--------+ + + + | CARCINOEMBRYONIC AG, | Routin | 10/30/2011 | Rectal cancer | Results for this | | SERUM | e | 11:34 AM | (HCC) | procedure are in the | | | | PDT | | results section. | + +--------+ + + + | COMPLETE METABOLIC | Routin | 10/30/2011 | Rectal cancer | Results for this | | SET | e | 11:34 AM | (HCC) | procedure are in the | | (NA,K,CL,CO2,BUN,CRE | | PDT | | results section. | | AT,GLUC,CA,AST,ALT,B | | | | | | HUMERA TOTAL,ALK | | | | | | PHOS,ALB,PROT TOTAL) | | | | | + +--------+ + + + | APTT (ACT. PART. | Routin | 10/30/2011 | Rectal cancer | Results for this | | THROMBO TIME) | e | 11:34 AM | (HCC) | procedure are in the | | | | PDT | | results section. | + +--------+ + + + | TYPE AND SCREEN | Routin | 10/30/2011 | Rectal cancer | Results for this | | | e | 11:34 AM | (HCC) | procedure are in the | | | | PDT | | results section. | + +--------+ + + + | INR | Routin | 10/30/2011 | Rectal cancer | Results for this | | | e | 11:33 AM | (HCC) | procedure are in the | | | | PDT | | results section. | + +--------+ + + + | CBC ONLY | Routin | 10/30/2011 | Rectal cancer | Results for this | | | e | 11:33 AM | (HCC) | procedure are in the | | | | PDT | | results section. | + +--------+ + + + documented in this encounter Results PROCEDURE NOTE (08/19/2015 2:51 AM PST) + + | Transcriptions | + + | Cy Toribio - 10/31/2011 6:44 PM PDT | + + HEMOGLOBIN A1C, POC (10/30/2011 11:41 AM PDT) + +-------+ + + + | Component | Value | Ref Range | Performed | Pathologist | | | | | At | Signature | + +-------+ + + + | HEMOGLOBIN | 5.1 | 4.0 - 5.7 % | [facility], | | | A1C,POC | | | POINT OF | | | | | | CARE TESTS | | + +-------+ + + + + + | Specimen | + + | Blood | + + + + + + + | Performing | Address | City/State/Zipcode | Phone Number | | Organization | | | | + + + + + | [facility], POINT | [address] | [place] [address] | | | OF CARE TESTS | | | | + + + + + COMPLETE METABOLIC SET (NA,K,CL,CO2,BUN,CREAT,GLUC,CA,AST,ALT,BILI TOTAL,ALK PHOS,ALB,PROT TOTAL) (10/30/2011 11:34 AM PDT) + + + + + + | Component | Value | Ref Range | Performed | Pathologist | | | | | At | Signature | + + + + + + | GLUCOSE, | 85 | 60 - 99 mg/dL | [facility] [...] + + + + | CREATININE | 1.20 | 0.70 - 1.30 | [facility] | | | PLASMA | | mg/dL | DEPARTMENT | | | (LAB) | | | OF | | | | | | PATHOLOGY | | + + + + + + | TOTAL | 6.8 | 6.1 - 7.9 g/dL | [facility] | | | PROTEIN, | | | DEPARTMENT | | | PLASMA | | | OF | | | (LAB) | | | PATHOLOGY | | + + + + + + | ALBUMIN, | 3.6 | 3.5 - 4.7 g/dL | [facility] | | | PLASMA | | | DEPARTMENT | | | (LAB) | | | OF | | | | | | PATHOLOGY | | + + + + + + | CALCIUM, | 9.3 | 8.6 - 10.2 | [facility] | | | PLASMA | | mg/dL | DEPARTMENT | | | (LAB) | | | OF | | | | | | PATHOLOGY | | + + + + + + | BILIRUBIN | 0.7 | 0.3 - 1.2 mg/dL | [facility] | | | TOTAL | | | DEPARTMENT | | | | | | OF | | | | | | PATHOLOGY | | + + + + + + | ALK PHOS | 97 | 56 - 119 U/L | [facility] | | | | | | DEPARTMENT | | | | | | OF | | | | | | PATHOLOGY | | + + + + + + | AST(SGOT) | 19 | 15 - 41 U/L | [facility] | | | | | | DEPARTMENT | | | | | | OF | | | | | | PATHOLOGY | | + + + + + + | SODIUM, | 138 | 134 - 143 | [facility] | | | PLASMA | | mmol/L | DEPARTMENT | | | (LAB) | | | OF | | | | | | PATHOLOGY | | + + + + + + | POTASSIUM, | 4.3 | 3.4 - 5.0 | [facility] | | | PLASMA | | mmol/L | DEPARTMENT | | | (LAB) | | | OF | | | | | | PATHOLOGY | | + + + + + + | CHLORIDE, | 107 | 97 - 108 mmol/L | [facility] [...] + + + | ALT (SGPT) | 15 | 13 - 48 U/L | [facility] | | | | | | DEPARTMENT | | | | | | OF | | | | | | PATHOLOGY | | + + + + + + | EGFR | > 60 | >60 mL/min | [facility] | | | - | | | DEPARTMENT | | | [place] | | | OF | | | [...] + + + + | ANION | 9 | 4 - 11 mmol/L | [facility] [...] + | [facility] DEPARTMENT OF | [address] | [place] [address] | | | PATHOLOGY | [address] | | | + + + + + APTT (ACT. PART. THROMBO TIME) (10/30/2011 11:34 AM PDT) + + + + + + | Component | Value | Ref Range | Performed | Pathologist | | | | | At | Signature | + + + + + + | APTT | 35.1Comment: | 26.0 - 36.0 | [facility] | | | | APTT Therapeutic Range | seconds | DEPARTMENT | | | | | | OF | | | | (75-120) | | PATHOLOGY | | | | sec | | | | | | Heparin levels of | | | | | | 0.35-0.7 U/mL | | | | + + + + + + + + | Specimen | + + | Blood - Blood | + + + + + + + | Performing | Address | City/State/Zipcode | Phone Number | | Organization | | | | + + + + + | [facility] | [address] | [place] [address] | | | PATHOLOGY | [address] | | | + + + + + CARCINOEMBRYONIC AG, SERUM (10/30/2011 11:34 AM PDT) + + + + + + | Component | Value | Ref Range | Performed | Pathologist | | | | | At | Signature | + + + + + + | CEA-CARCINO | 3.0Comment: INTERPRETIVE | <3.1 ng/mL | [facility] | [...] by | | | | | | [employer], | | | | | | | | | | | | [address] | | | | | | [facility] | | | | | | [address] | | | | | | | | | | | | [email or web address].[facility], | | | | | | Rebeca [...] + | [facility] | [address] | [place], [place] | | | [facility] | | [phone] | | + + + + + TYPE AND SCREEN (10/30/2011 11:34 AM PDT) + + + + + [...] | + + + + + | [facility] | [address] | [place] [address] | | | PATHOLOGY | [address] | | | + + + + + CBC ONLY (10/30/2011 11:33 AM PDT) + + + + + + | Component | Value | Ref Range | Performed | Pathologist | | | | | At | Signature | + + + + + + | WHITE CELL | 5.5 | 4.4 - 11.0 K/cu | [facility] | | | COUNT | | mm | DEPARTMENT | | | | | | OF | | | | | | PATHOLOGY | | + + + + + + | RED CELL | 3.93 (L) | 4.50 - 5.90 | [facility] | | | COUNT | | M/cu mm | DEPARTMENT | | | | | | OF | | | | | | PATHOLOGY | | + + + + + + | HEMOGLOBIN | 12.7 (L) | 13.5 - 17.5 | [facility] | | | | | g/dL | DEPARTMENT | | | | | | OF | | | | | | PATHOLOGY | | + + + + + + | HEMATOCRIT | 37.1 (L) | 41.0 - 53.0 % | [facility] | | | | | | DEPARTMENT | | | | | | OF | | | | | | PATHOLOGY | | + + + + + + | MCV | 94.5 | 80.0 - 96.0 fL | [facility] [...] + + + + | PLATELET | 208 | 150 - 400 K/cu | [facility] [...] | + + + + + | [facility] | [address] | [place] [address] | | | PATHOLOGY | [address] | | | + + + + + INR (10/30/2011 11:33 AM PDT) + + + + + + | Component | Value | Ref Range | Performed | Pathologist | | | | | At | Signature | + + + + + + | INR | 1.11Comment: | 0.90 - 1.20 INR | [facility] | | | | INR Therapeutic ranges [...] | + + + + + | [facility] | [address] | [place] [address] | | | PATHOLOGY | [address] | | | + + + + + documented in this encounter Visit Diagnoses + + | Diagnosis | + + | Preop examination - Primary Preoperative examination, unspecified | + + | Rectal cancer (HCC) Malignant neoplasm of rectum | + + | Malignant neoplasm of rectum (HCC) Malignant neoplasm of rectum | + + | Hyperlipidemia Other and unspecified hyperlipidemia | + + | Bacteremia | + + | MSSA (methicillin susceptible Staphylococcus aureus) septicemia (HCC) Methicillin | | susceptible staphylococcus aureus septicemia | + + | Left hip pain Pain in joint, pelvic region and thigh | + + | Fracture of sacrum (HCC) Closed fracture of sacrum and coccyx without mention of | | spinal cord injury | + + | HTN (hypertension) Unspecified essential hypertension | + + | Chest pain Chest pain, unspecified | + + | Anemia Anemia, unspecified | + + | Encounter for long-term (current) use of antibiotics | + + | Other specified pre-operative examination | + + documented in this encounter
--- OUTSIDE RECORDS SUMMARY | ~2019-11-22 | XMS | Encounter Summary ---
Demographics + + + | Address | [address] | | | [place] [address] | + + + | Home Phone [...] Providers + +------+ + | Care Labor Economics Teacher Name | Role | Phone | [...] + + | 06/04/ | Office | [facility] | Carlos Armstrong | Spondylolisthesis of | | 2016 | Visit | NEUROSURGERY [address] | [address] | lumbar region | | | | [address] | [address] | (Primary Dx); Lumbar | | | | [place], [place] | [place], [place] | radiculopathy | | | | [address] | [address] | | | | | [phone] | | | +--------+---------+ + + + [...] brace which was provide d by a sales representative womens health of [facility]. Isa Cisneros RN Carlos andre PA- C - 06/04/2017 12:15 PM PST Carlos Armstrong PA-C [address] [facility], [address] [place] [id number] FAX: NEUROSURGERY HISTORY AND PHYSICAL EXAMINATION CHIEF [...] first-deg ree AV block on his EKG. Weigher Packing felt no additional testing was needed. He [...] has no apparent deficits with short or rn long term care memory. CRANIAL NERVES: II: Acuity is intact. 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
--- OUTSIDE RECORDS SUMMARY | ~2019-11-22 | XMS | Encounter Summary ---
Demographics + + + | Address | [address] | | | [place] [address] | + + + | Home Phone | | + + + | Preferred Language | Unknown | + + + | Marital Status | | + + + | Temple Affiliation | 1077 | + + + | Race | Unknown | + + + | Ethnic Group | Unknown | + + + Author + + + | Author | [facility] | | | and [place] | + + + | Organization | [facility] | | [...] Team Providers + +------+ + | Care Pipe Setter Name | Role | Phone | + +------+ + | Hay Greco MD | PCP | | + +------+ + Reason for Visit + + + | Reason | Comments | + + + | Neurosurgery | [facility] from 03/27 to 03/25 | | Appointment | | + + + Encounter Details +--------+ + + + + | Date | Type | Department | Care Team | Description | +--------+ + + + + | 03/21/ | Telephone | [facility] | Kemal Damian MD | Neurosurgery | | 2018 | | NEUROSURGERY [address] | [address] | Appointment ([facility] | | | | [address] | [place] [address] | from 03/27 to 03/25) | | | | [place] | [phone] | | | | | [address] | | | | | | [phone] | | | +--------+ + + + [...]
--- OUTSIDE RECORDS SUMMARY | ~2019-11-22 | XMS | Encounter Summary ---
Demographics + + + | Address | [address] | | | [place] [address] | + + + | Home Phone | | + + + | Preferred Language | Unknown | + + + | Marital Status | | + + + | Mandaeism Affiliation | PRE | + + + [...] + | Ricarda Johnson | ECON | [address] | | | | | [place] | | | | | [address] | | + + + + + Care Team Providers + +------+ + | Care Surgical Brace Maker Name | Role | Phone | + +------+ + | Hay Greco MD | PCP | | + +------+ + Encounter Details +--------+ + + + + | Date | Type | Department | Care Team | Description | +--------+ + + + + | 08/22/ | Abstract | Infectious | Rona Kulkarni | | | 2011 | | Diseases at [facility] | JUNI Pace [address] | | | | | [address] | [address] | | | | | Loop Physician's | [place], [place] | | | | | Brian, [facility] floor | [address] | | | | | [place], [place] | [phone] | | | | | [address] | | | | | | [phone] | | | +--------+ + + + [...] + | CBC, WITH | Routin | 08/22/2011 | | Results for this | | DIFFERENTIAL | e | 9:45 AM | | procedure are in the | | | | PST | | results section. | + +--------+ + + + | COMPLETE METABOLIC | Routin | 08/22/2011 | | Results for this | | SET | e | 9:45 AM | | procedure are in the | | (NA,K,CL,CO2,BUN,CRE | | PST | | results section. | | AT,GLUC,CA,AST,ALT,B | | | | | | HUMERA TOTAL,ALK | | | | | | PHOS,ALB,PROT TOTAL) | | | | | + +--------+ + + + documented in this encounter Results COMPLETE METABOLIC SET (NA,K,CL,CO2,BUN,CREAT,GLUC,CA,AST,ALT,BILI TOTAL,ALK PHOS,ALB,PROT TOTAL) (08/22/2011 9:45 AM PST) + +-------+ + + + | Component | Value | Ref Range | Performed | Pathologist | | | | | At | Signature | + +-------+ + + + | GLUCOSE, | 95 | 65 - 110 mg/dL | NON [facility] | | | PLASMA | | | LAB | | | (LAB) | | | | | + +-------+ + + + | BUN, PLASMA | 21 | mg/dL | NON [facility] | | | (LAB) | | | LAB | | + +-------+ + + + | CREATININE | 1.25 | mg/dL | NON [facility] | | [...] +-------+ + + + | CALCIUM, | 9.3 | mg/dL | NON [facility] | | | PLASMA | | | LAB | | | (LAB) | | | | | + +-------+ + + + | BILIRUBIN | 0.6 | Transcutaneous | NON [facility] | | | TOTAL | | Bilirubinometer | LAB | | + +-------+ + + + | ALK PHOS | 162 | U/L | NON [facility] | | [...] + + + | ALT (SGPT) | 17 | U/L | NON [facility] | | | | | | LAB | | + +-------+ + + + | C-REACTIVE | 10 | mg/dl | NON [facility] | | [...] + +---------+ + + CBC, WITH DIFFERENTIAL (08/22/2011 9:45 AM PST) + +---------+ + + + | Component | Value | Ref Range | Performed | Pathologist | | | | | At | Signature | + +---------+ + + + | WHITE CELL | 5.3 | K/cu mm | NON [facility] | | | COUNT | | | LAB | | + +---------+ + + + | RED CELL | 2.77 | M/cu mm | NON [facility] | | | COUNT | | | LAB | | + +---------+ + + + | HEMOGLOBIN | 9.4 (A) | 13.5 - 17.5 | NON [facility] | | | | | g/dL | LAB | | + +---------+ + + + | HEMATOCRIT | 26.7 | % | NON [facility] | | | | | | LAB | | + +---------+ + + + | MCV | 96.1 | fL | NON [facility] | | [...] +---------+ + + + | PLATELET | 307 | K/cu mm | NON [facility] | | | COUNT | | | LAB | | + +---------+ + + + | NEUTROPHIL | 78.4 | % | NON [facility] | | | % | | | LAB | | + +---------+ + + + | LYMPHOCYTE | 8.2 | % | NON [facility] | | | % | | | LAB | | + +---------+ + + + | MONOCYTE % | 7 | % | NON [facility] | | | | | | LAB | | + +---------+ + + + | EOS % | 5.2 | % | NON [facility] | | | | | | LAB | | + +---------+ + + + | BASO % | 1.2 | % | NON [facility] | | | | | | LAB | | + +---------+ + + + | RDW | 14.3 | % | NON [facility] | | [...]
--- OUTSIDE RECORDS SUMMARY | ~2019-11-22 | XMS | Encounter Summary ---
Demographics + + + | Address | [address] | | | [place] [address] | + + + | Home Phone | | + + + | Preferred Language | Unknown | + + + | Marital Status | | + + + | Presybeterian Affiliation | 1077 | + + + | Race | Unknown | + + + | Ethnic Group | Unknown | + + + Author + + + | Author | [facility] | | | and [place] | + + + | Organization | [facility] | | [...] Team Providers + +------+ + | Care Refinery Operator Crude Unit Name | Role | Phone | + +------+ + | Hay Greco MD | PCP | | + +------+ + Encounter Details +--------+ + + + + | Date | Type | Department | Care Team | Description | +--------+ + + + + | 11/18/ | Hospital | [facility] | [place] | S/P lumbar fusion | | 2013 | Encounter | MED CTR XRAY [address] | [address] | | | | | [address] | AV | | | | | [place] [address] | [place] [address] | | | | | [phone] | [phone] | | | | | | | [...] LUMBAR SPINE 2 [place] | Routin | 11/18/2013 | S/P lumbar fusion | Results for this | | 3 VW | e | 10:11 AM | | procedure are in the [...] + | MISCELLANEOUS LAB | | | [phone] | + +---------+ + + | MISCELANIOUS LAB | | | [phone] | + +---------+ + + documented in this encounter Visit Diagnoses + + | Diagnosis | + + | S/P lumbar fusion Arthrodesis status | + + documented in this encounter"
--- OUTSIDE RECORDS SUMMARY | ~2019-11-22 | XMS | Encounter Summary ---
Demographics + + + | Address | [address] | | | [place] [address] | + + + | Home Phone | | + + + | Preferred Language | Unknown | + + + | Marital Status | | + + + | Muslim Affiliation | 1077 | + + + | Race | Unknown | + + + | Ethnic Group | Unknown | + + + Author + + + | Author | [facility] | | | and [place] | + + + | Organization | [facility] | | [...] Team Providers + +------+ + | Care Last Cleaner Name | Role | Phone | + +------+ + PCP | Unavailable | + +------+ + Encounter Details +--------+ + + + + | Date | Type | Department | Care Team | Description | +--------+ + + + + | 09/12/ | Hospital | [facility] | | | | 2010 - | Encounter | MED CTR CANCER | | | | | | CENTER [address] | | | | 10/12/ | | [place] | | | | 2010 | | [address] | | | | | | [phone] | | | +--------+ + + + [...] documented as of this encounter Progress Notes Frank Mueller MD - 09/12/2010 5:52 AM [facility] note Patient name: Cosmo Johnson Date of : Record number: [id number] Date of service: 09/12/10 Primary care provider: Brandon Greco MD Other providers: Dr. Edgar Hampton ([facility]) Identifying statement / chief complaint: Cosmo Johnson is a 65 year old gentleman with rectal cancer. He is here for recheck. History of present illness: Rectal cancer, stage III (uT3 uN1 M0): 1. 03/21/10: Presenting with rectal bleeding. Colonoscopy reveals left lateral rectal mass a t 9 cm. Biopsy of tumor shows well differentiated infiltrating adenocarcinoma. 2. 03/21/10: C T A/P shows left lateral and posterior rectal wall thickening. No adenopathy or liver lesio ns are seen. CEA is 2.7. 3. 04/10/10: Endoscopic ultrasound shows tumor penetrating through the muscularis propria a nd into perirectal fat. A 3 mm peritumoral node is seen. 4. 04/17 to 05/26/10: Radiation wit h 5-FU at 225 mg/m2 per day. 5. 07/26/10: Low anterior resection reveals no residual carcino ma in rectum or 15 regional nodes (ypT0N0) 6. 09/22: Start adjuvant capecitabine. Past medical history: Hypercholesterolemia Headaches Lumbar surgery 2009 Family history: Uncle and cousin both had lung cancer. Heart disease in both parents Social history: He is to [place]arda, and has three adult children. Two daughters live in [place]. Son lives in [place]. 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 Risk factors: Does not smoke. Has a couple of shots of alcohol each day. Allergies: Iodine - hives, blistering Tape -rash Current medications: Lipitor 80 mg daily Excedrin prn headaches Tylenol prn Glucosamine Chondroitin Stool softener prn Proctocream HC 2.5% prn to rectal area for soreness Multi Vitamin with folic acid Lorazepam 0.5mg prn sleeplessness Review of systems: Constitutional: No fevers, chills, sweats, weight loss. Moderate fatigue. Ears: No hearing problems or tinnitus. Nasopharynx: No nasal congestion or discharge. No sore throat or difficulty swallow ing. Vision: No diplopia, blurred vision, or changes in vision. Breathing: No cough or shortness of breath. Cardiac: No chest pain, palpitations, or lightheadedness. Gastrointestinal: Fair ly good appetite without nausea. Loop ileostomy is working well with passage of stool 6 or more times per day. Genitourinary: He does note urinary frequency. Musculoskeletal: He reports minimal postoperative pain and has not been taking pain med ications. Neurologic: No headaches, no paresthesias or numbness Psychiatric: No depres shayy, anxiety or difficulty sleeping. Skin: No rashes, itching. Endocrine: No hot flashes, polydipsia, polyuria. Vital signs: Temp: 36.1 Pulse: 70 BP: 116/75 Height: 173 cm Weight: 83.2 kg Physical exam: General: ECOG PS 0. He appears well and is in no distress. Ears: Hearing grossly intact. Eyes: PERRL, EOMI. Conjunctivae clear. HEENT: Oropharynx is clear. Neck: Supple without masses or thyromegaly Chest: Clear to auscultation and percussion Cardiac: RRR with S1, S2. No murmur or rub Abdomen: Soft, nontender with active bowel sounds. No hepatosplenomegaly. Ostomy is wor roberto well. Lymphatic: No adenopathy in cervical, supraclavicular or axillary areas. Extremities: Without edema. No cyanosis or clubbing. Musculoskeletal: No deformities Skin: Without rashes or lesions Neurologic: Cranial nerves intact. Exam is grossly symmetric. Psychiatric: Good moo d. Cognition and memory are grossly intact. Impression: 65 year old man with rectal cancer, stage III by endoscopic ultrasound. He tolerated neoad juvant chemoradiation well and resection shows complete pathologic response. He visited [facility] Dr. Hampton, who recommends proceeding with adjuvant chemotherapy prior to ileostomy taked own. Given his complete pathologic response at resection, we will plan to use capecitabine as a single agent. Plan: He will begin capecitabine 1000 mg po bid on a schedule of 7 days on, 7 days off. We will plan on a total of 9 cycles over 18 weeks. Follow up: 2 weeks. Kody Mueller MD PhD cc: Dr. Grant Greco, Dr. Trent Hampton ([facility]) <Electronically Signed by Debbie Mueller MD PHD> 09/15/10 1642 documented in this encounter Plan of Treatment Not on filedocumented as of this encounter Visit Diagnoses Not on filedocumented in this encounter"
--- OUTSIDE RECORDS SUMMARY | ~2019-11-22 | XMS | Encounter Summary ---
Demographics + + + | Address | [address] | | | [place] [address] | + + + | Home Phone [...] Author + + + | Author | [facility] | + + + | Organization | [facility] | + + + | Address | Unknown | + + + | Phone | Unavailable | + + + Support + + + + + | Name | Relationship | Address | Phone | + + + + + | Ricarda Johnson | ECON | [address] | | | | | [place] | | | | | [address] | | + + + + + Care Team Providers + +------+ + | Care Golf Ball Cover Treater Name | Role | Phone | + +------+ + | Hay Greco MD | PCP | | + +------+ + Encounter Details +--------+ + + + + | Date | Type | Department | Care Team | Description | +--------+ + + + + | 08/01/ | Results | LAB REFERRED TESTS | Cy Toribio | | | 2011 | Only | [address] [facility] | [phone] | | | | | [address] | | | | | | [place], [place] | | | | | | [address] | | | +--------+ + + + [...] DEPT OF | [address] | [place], [place] | | | CARDIOLOGY | [address] | [address] | | + + + + + documented in this encounter Visit Diagnoses Not on filedocumented in this encounter"
--- OUTSIDE RECORDS SUMMARY | ~2019-11-22 | XMS | Encounter Summary ---
Demographics + + + | Address | [address] | | | [place] [address] | + + + | Home Phone | | + + + | Preferred Language | Unknown | + + + | Marital Status | | + + + | Jain Affiliation | 1077 | + + + [...] Team Providers + +------+ + | Care Tyre Fitter Name | Role | Phone | + [...] | | [address] | [place] [address] | (Primary Dx) | | | | [place] | [phone] | | | | | [address] | | | | | | [phone] | | | +--------+ + + + [...]
--- OUTSIDE RECORDS SUMMARY | ~2019-11-22 | XMS | Encounter Summary ---
Demographics + + + | Address | [address] | | | [place] [address] | + + + | Home Phone | | + + + | Preferred Language | Unknown | + + + | Marital Status | | + + + | Synagogue Affiliation | PRE | + + + | Race | White | + + + | Ethnic Group | Not or | + + + Author + + + | Author | [facility] | + + + | Organization | [facility] | + + + | Address | Unknown | + + + | Phone | Unavailable | + + + Support + + + + + | Name | Relationship | Address | Phone | + + + + + | Ricarda Johnson | ECON | [address] | | | | | [place] | | | | | [address] | | + + + + + Care Team Providers + +------+ + | Care Endocrinology Nurse Name | Role | Phone | + +------+ + | Hay Greco MD | PCP | | + +------+ + Encounter Details +--------+ + + + + | Date | Type | Department | Care Team | Description | +--------+ + + + + | 11/20/ | Abstract | Digestive Health | Edgar Hampton, | | | 2011 | | [place] [facility] [address] | [address] | | | | | [address] | [address] | | | | | Mailcode: Center | [place], [place] | | | | | for Health and | [address] | | | | | [facility] 2 | [phone] | | | | | [place], [place] | | | | | | [address] | | | | | | [phone] | | | +--------+ + + + [...]
--- OUTSIDE RECORDS SUMMARY | ~2019-11-22 | XMS | Encounter Summary ---
Demographics + + + | Address | [address] | | | [place] [address] | + + + | Home Phone | | + + + | Preferred Language | Unknown | + + + | Marital Status | | + + + | Sikhism Affiliation | PRE | + + + | Race | White | + + + | Ethnic Group | Not or | + + + Author + + + | Author | [facility] | + + + | Organization | [facility] | + + + | Address | Unknown | + + + | Phone | Unavailable | + + + Support + + + + + | Name | Relationship | Address | Phone | + + + + + | Ricarda Johnson | ECON | [address] | | | | | [place] | | | | | [address] | | + + + + + Care Team Providers + +------+ + | Care Power Distributor Name | Role | Phone | + +------+ + | Hay Greco MD | PCP | | + +------+ + Encounter Details +--------+ + + + + | Date | Type | Department | Care Team | Description | +--------+ + + + + | 08/07/ | Results | LAB REFERRED TESTS | Cy Toribio | | | 2011 | Only | [address] [facility] | [phone] | | | | | [address] | | | | | | [place], [place] | | | | | | [address] | | | +--------+ + + + [...] DEPT OF | [address] | [facility] [place] | | | CARDIOLOGY | [address] | [address] | | + + + + + documented in this encounter Visit Diagnoses Not on filedocumented in this encounter"
--- OUTSIDE RECORDS SUMMARY | ~2019-11-22 | XMS | Encounter Summary ---
Demographics + + + | Address | [address] | | | [place] [address] | + + + | Home Phone | | + + + | Preferred Language | Unknown | + + + | Marital Status | | + + + | Hindu Affiliation | PRE | + + + | Race | White | + + + | Ethnic Group | Not or | + + + Author + + + | Author | [facility] | + + + | Organization | [facility] | + + + | Address | Unknown | + + + | Phone | Unavailable | + + + Support + + + + + | Name | Relationship | Address | Phone | + + + + + | Ricarda Johnson | ECON | [address] | | | | | [place] | | | | | [address] | | + + + + + Care Team Providers + +------+ + | Care Authorization Manager Name | Role | Phone | [...] | Required | | tumor | [place] | [facility] [address] | | | | | Procedures | SURGICAL | [address] | | | | | CONSULT TO | CLINIC [address] | Mailcode: | | | | | [address] | [address] | | | | | | SURGERY | [address]VE | Health and | | | | | | [place], | Healing, | | | | | | [place] [address] | [address] | | | | | | Phone: | [place], [place] | | | | | | [phone] | [address] | | | | | | Fax: | Phone: | | | | | | [phone] | [phone] | | | | | | | Fax: | | | | | | | [phone] | +--------+ + + + + + Encounter Details +--------+---------+ + + + | Date | Type | Department | Care Team | Description | +--------+---------+ + + + | 10/29/ | Office | Digestive Health | Edgar Hampton, | Rectal cancer (HCC) | | 2011 | Visit | [facility] at [address] | [address] [facility] | | | | | [address] | [facility] | | | | | Mailcode: Center | [place], [place] | | | | | [facility] and | [address] | | | | | [facility], [facility] 2 | [phone] | | | | | [place], [place] | | | | | | [address] | | | | | | [phone] | | | +--------+---------+ + + + [...] - 10/30/2011 11:33 AM PDTPATIENT SURGERY INFORMATION [facility] General Surgery Office Toll-free: , request [facility] Surgery Date: 10/31/2011 Procedure: Ileostomy closure. Surgeon [...] can see through, like water, shirley cinthya, lemon-pala s oft drinks, apple juice, tea, Gatorade/sports [...] number may refer you to the hospital television equipment operator ([phone]); please ask to speak to the general surgery resident liaison inspection laboratory assistant for Dr Hampton. MEDICATIONS You may take [...] e. Smoking is not allowed on the [facility] campus. If you are a smoker, [...] anyone by 3:00 PM please call for [id number]. PARKING Parking for patients and visitors is available in the [facility] Parking structure located across from the emergency department. Patient parking is available on level 1 and 3. Mete red parking is available on the top level. CHECKING IN FOR SURGERY Go in the main entrance and check in at the Admitting Desk 9th floor of [facility] TRANSPORTATION You will require transportation home on the day of discharge. Pain medications and physica l activity restrictions may limit your ability to drive safely. CANCELLING YOUR PROCEDURE Please notify the general surgery office at [phone] as soon as possible should you nee [...] prior to your surgery. PRODUCTS CONTAINING ASPIRIN [place], Anacin, Anexsia with Codeine, Andynos, Aspirin, Aspirin suppositories, Ascrip tin, Aspergum, Axotal, B-A-C, Baby Aspirin, Chikis, BC Powder, Bexophene, Buffaprin, Bufferin , Buffinol, Cama-Arthritis Strength, Congespirin, [place], Coricidin, Damason, Darvon, Drfredrick, Zenobia-Gesic, Digel, Dolprin #3 Tablets, Donatab, Doxaphene, Duragesic, Easprin, Ecotrin, Emag rin Forte, Emiprin, Emprazil, Equagesic, Equazine M, Excedrin, Fiogesic, Fiorgen PH, Fiorice t, Fiorinal, 4-Way Cold Tablet Gemnisyn, Indocin, Liquprin, Lortab ASA, Magnaprin, Marnal, Meprobamate, Midol, Momentum, N orgesic, [place], Orphengesic, Pabalate, P-A-C, Percodan, Presalin, Robaxasil, Roxiprin, Sathya eto, Salocol SK-65 Compound, Sine-Aid, Sine-Off,, Garrett, Supac, Talwin Compound, Trigesic, Tolectin , Traiminicin, Vanquish, ZORprin, Zomax PRODUCTS CONTAINING IBUPROFEN Advil, Aleve, Haltran, Medipren, Midol, Motrin, Naproxyn, Nuprin, Rufen OTHER PRODUCTS WHICH MAY PROMOTE BLEEDING Vitamin E, Gingko Biloba, Marine Fatty Acids, [place]-3 Fish Oil Supplements Registration Process for all [...] 11:33 AM PDTDiscussed pre-operative plan such as applied behavior specialist calling the da y before surgery to [...] q uestions, concerns, or new symptoms at [phone]. NPO after midnight, clear liquids the day [...]
--- OUTSIDE RECORDS SUMMARY | ~2019-11-22 | XMS | Encounter Summary ---
Demographics + + + | Address | [address] | | | [place] [address] | + + + | Home Phone | | + + + | Preferred Language | Unknown | + + + | Marital Status | | + + + | Baptism Affiliation | 1077 | + + + | Race | Unknown | + + + | Ethnic Group | Unknown | + + + Author + + + | Author | [facility] | | | and [place] | + + + | Organization | [facility] | | [...] Team Providers + +------+ + | Care Prepared Foods Production Team Member Name | Role | Phone | + +------+ + PCP | Unavailable | + +------+ + Encounter Details +--------+ + + + + | Date | Type | Department | Care Team | Description | +--------+ + + + + | 04/06/ | Hospital | [facility] | | | | 2009 - | Encounter | MED CTR CANCER | | | | | | CENTER [address] | | | | 04/13/ | | [place] | | | | 2009 | | [address] | | | | | | [phone] | | | +--------+ + + + [...]
--- OUTSIDE RECORDS SUMMARY | ~2019-11-22 | XMS | Encounter Summary ---
Demographics + + + | Address | [address] | | | [place] [address] | + + + | Home Phone | | + + + | Preferred Language | Unknown | + + + | Marital Status | | + + + | Orthodox Affiliation | 1077 | + + + | Race | Unknown | + + + | Ethnic Group | Unknown | + + + Author + + + | Author | [facility] | | | and [place] | + + + | Organization | [facility] | | | [...] Team Providers + +------+ + | Care Biblical Languages Professor Name | Role | Phone | + [...] | | [address] | [place] [address] | lumbar (Primary Dx); | | | | [place] | [phone] | Spondylolisthesis | | | | [address] | | of lumbar region; | | | | [phone] | | Facet arthropathy, | | | [...]
--- OUTSIDE RECORDS SUMMARY | ~2019-11-22 | XMS | Clinical Summary ---
Demographics + + + | Address | [address] | | | [place] [address] | + + + | Home Phone | | + + + | Preferred Language | Unknown | + + + | Marital Status | | + + + | Shinto Affiliation | Unknown | + + + | Race | Unknown | + + + | Ethnic Group | Unknown | + + + Author + + + | Author | [facility] (Historical as of | | | 02-28-19) | + + + | Organization | [facility] (Historical as of | | | 02-28-19) | + + + | Address | Unknown | + + + | Phone | Unavailable | + + + Support + + +---------+ + | Name | Relationship | Address | Phone | + + +---------+ + | Ricarda Olivera | ECON | Unknown | | + + +---------+ + Care Team Providers + +------+ + | Care Mortgage Closing Clerk Name | Role | Phone | + +------+ + PP | Unavailable | + +------+ + Allergies + + + + + + | Active Allergy | Reactions | Severity | Noted | Comments | | | | | Date | | + + + + + + | Povidone Iodine | Rash | High | 12/21/19 | "skin blackwell" | | | | | 13 | | + + + + + + | Chlorhexidine | Rash | Medium | 12/21/19 | "skin blackwell" | | | | | 13 | | + + + + + + | Lovastatin | Other (See Comments) | Medium | 02/07/20 | Myalgias | | | | | 17 | | + + + + + + Current Medications + + +-------+---------+------+------+-------+ | Prescription | Sig. | Disp. | Refills | Star | End | Statu | | | | | | t | Date | s | | | | | | Date | | | + + +-------+---------+------+------+-------+ | lovastatin | Take 40 mg by mouth | | | | | Activ | | (MEVACOR) 40 MG | nightly. | | | | | e | | tablet | | | | | | | + + +-------+---------+------+------+-------+ | amLODIPine | Take 5 mg by mouth | | | | | Activ | | (NORVASC) 5 MG | daily. | | | | | e | | tablet | | | | | | | + + +-------+---------+------+------+-------+ | potassium chloride | Take 10 mEq by mouth | | | | | Activ | | (K-DUR) 10 MEQ | 2 (two) times | | | | | e | | tablet | daily. | | | | | | + + +-------+---------+------+------+-------+ | | Take 25 mg by mouth | | | | | Activ | | hydrochlorothiazide | daily. | | | | | e | | (HYDRODIURIL) 25 MG | | | | | | | | tablet | | | | | | | + + +-------+---------+------+------+-------+ | acetaminophen | Take 325 mg by mouth | | | | | Activ | | (TYLENOL) 325 MG | every 6 (six) hours | | | | | e | | tablet | as needed for Pain. | | | | | | + + +-------+---------+------+------+-------+ | | Take 1 capsule by | | | | | Activ | | glucosamine-chondroi | mouth 3 (three) | | | | | e | | tin 500-400 MG CAPS | times daily. | | | | | | + + +-------+---------+------+------+-------+ | | Take 1-2 tablets by | | | 06/0 | | Activ | | HYDROcodone-acetamin | mouth. | | | 5/20 | | e | | ophen (NORCO) | | | | 18 | | | | 7.5-325 MG per | | | | | | | | tablet | | | | | | | + + +-------+---------+------+------+-------+ | hydrOXYzine | take 1 capsule by | | 0 | 11/1 | | Activ | | (VISTARIL) 25 MG | mouth every 6 to 8 | | | 4/20 | | e | | capsule | hours if needed for | | | 18 | | | | | itching | | | | | | + + +-------+---------+------+------+-------+ | | take 1 to 2 tablets | | 0 | 11/1 | | Activ | | oxyCODONE-acetaminop | by mouth every 4 to | | | 4/20 | | e | | hen (PERCOCET) 5-325 | 6 hours if needed | | | 18 | | | | MG per tablet | for pain | | | | | | + + +-------+---------+------+------+-------+ Active Problems + + + | Problem | Noted Date | + + + | Status post reverse total arthroplasty of left shoulder | 07/21/2018 | + + + | Rotator cuff arthropathy, left | 02/20/2018 | + + + | Carpal tunnel syndrome of right wrist | 01/16/2018 | + + + + + | Overview: Added automatically from request for surgery [id number] | + + + + + | Cubital tunnel syndrome, right | 01/16/2018 | + + + + + | Overview: Added automatically from request for surgery [id number] | + + + + + | Status post reverse total arthroplasty of right shoulder | 08/14/2017 | + + + | Chronic left shoulder pain | 04/24/2017 | + + + | Chronic right shoulder pain | 04/24/2017 | + + + | Primary osteoarthritis of right shoulder | 04/24/2017 | + + + | Primary osteoarthritis of left shoulder | 04/24/2017 | + + + | Benign hypertension | 02/20/2017 | + + + | Pre-op evaluation | 02/20/2017 | + + + | Spondylolisthesis of lumbar region | 06/09/2013 | + + + | Lumbar radicular pain | 06/09/2013 | + + + | 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, left, 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 | 12/20/2012 | + + + Family History + + +------+ + | Medical History | Relation | Name | Comments | + + +------+ + | Heart disease | Father | | | + + +------+ + | Hypertension | Father | | | + + +------+ + | Stroke | Maternal | | | | | Grandmoth | | | | | er | | | + + +------+ + | Heart disease | Mother | | | + + +------+ + | Hypertension | Mother | | | + + +------+ + + +------+--------+ + | Relation | Name | Status | Comments | + +------+--------+ + | Father | | | | + +------+--------+ + | Maternal Grandmother | | | | + +------+--------+ + | Mother | | | | + +------+--------+ + Social History + +-------+ +--------+------+ | [...] + +---------+ + | Alcohol Use | Drinks/We | oz/Week | Comments | | | ek | | | + + +---------+ + | Yes | | | SEVEN SHOTS PER WEEK | + + +---------+ + + + + | Sex Assigned at | Date Recorded | | | | + + + | Not on file | | + + + Last Filed Vital Signs + + + + | Vital Sign | Reading | Time Taken | + + + + | Blood Pressure | 120/89 | 09/22/2018 1:02 PM PDT | + + + + | Pulse | 68 | 09/22/2018 1:02 PM PDT | + + + + | Temperature | 36.2 C (97.1 F) | 02/18/2018 8:41 AM PDT | + + + + | Respiratory Rate | 10 | 05/14/2018 11:34 AM PDT | + + + + | Oxygen Saturation | 98% | 09/22/2018 1:02 PM PDT | + + + + | Inhaled Oxygen | - | - | | Concentration | | | + + + + | Weight | 82.1 kg (181 lb) | 09/22/2018 1:02 PM PDT | + + + + | Height | 175.3 cm (5' 9") | 09/22/2018 1:02 PM PDT | + + + + | Body Mass Index | 26.73 | 09/22/2018 1:02 PM PDT | + + + + Plan of Treatment + + + + + | Health Maintenance | Due Date | Last Done | Comments | + + + + + | Vaccine: | | | | | Dtap/Tdap/Td (1 - | 3 | | | | Tdap) | | | | + + + + + | Colon Cancer | | | | | Screening | 4 | | | | (Colonoscopy) | | | | + + + + + | Vaccine: Zoster (1 | | | | | of 2) | 4 | | | + + + + + | Vaccine: | | | | | Pneumococcal 65+ | 9 | | | | Low/Medium Risk (1 | | | | | of 2 - PCV13) | | | | + + + + + | Vaccine: Influenza | | | | | (Season Ended) | 0 | | | + + + + + Results Not on filefrom Last 3 Months Insurance + +--------+ +------+-------+ + | Payer | Benefi | Subscriber | Type | Phone | Address | | | t Plan | ID | | | | | | / | | | | | | | Group | | | | | + +--------+ +------+-------+ + | PREMERA | PREMER | [id number] | | | [address] [address] | | | A BLUE | | | | [place], [place] | | | [place]OSS | | | | [address] | | | FED | | | | | | | PPO | | | | | + +--------+ +------+-------+ + | MEDICARE | MEDICA | [id number] | | | [address] | | | RE | | | | [place] [address] | | | IP-OP | | | | | + +--------+ +------+-------+ + + +--------+ +--------+ + + | Guarantor Name | Accoun | Relation to | Date | Phone | Billing Address | | | t Type | Patient | of | | | | | | | | | | + +--------+ +--------+ + + | TYLOR OLIVERA | Person | Self [birth year] Home: | [address] | | | al/Kofi | | [phone] | [phone] | [place] | | | aye | | [phone] | [address] | + +--------+ +--------+ + +
--- OUTSIDE RECORDS SUMMARY | ~2019-11-22 | XMS | Encounter Summary ---
Demographics + + + | Address | [address] | | | [place] [address] | + + + | Home Phone | | + + + | Preferred Language | Unknown | + + + | Marital Status | | + + + | Zoroastrianism Affiliation | PRE | + + + | Race | White | + + + | Ethnic Group | Not or | + + + Author + + + | Author | [facility] | + + + | Organization | [facility] | + + + | Address | Unknown | + + + | Phone | Unavailable | + + + Support + + + + + | Name | Relationship | Address | Phone | + + + + + | Ricarda Johnson | ECON | [address] | | | | | [place] | | | | | [address] | | + + + + + Care Team Providers + +------+ + | Care Rayon Tester Name | Role | Phone | + +------+ + | Hay Greco MD | PCP | | + +------+ + Encounter Details +--------+ + + + + | Date | Type | Department | Care Team | Description | +--------+ + + + + | 12/11/ | Abstract | Dig[facility]ive Health | Edgar Hampton, | | | 2012 | | [place] at [facility] [address] | [address] | | | | | Debbie Mock | [address] | | | | | Mailcode: Center | [place], [place] | | | | | for Health and | [address] | | | | | [facility], [facility] 2 | [phone] | | | | | [place], [place] | | | | | | [address] | | | | | | [phone] | | | +--------+ + + + [...]
--- OUTSIDE RECORDS SUMMARY | ~2019-11-22 | XMS | Encounter Summary ---
Demographics + + + | Address | [address] | | | [place] [address] | + + + | Home Phone [...] Team Providers + +------+ + | Care Coal Crusher Operator Name | Role | Phone | [...] | +--------+ + + + + | 11/10/ | Telephone | [facility] | Kemal Damian MD | Other | | 2013 | | NEUROSURGERY [address] | [address] | | | | | [address] | [place] [address] | | | | | [place] | [phone] | | | | | [address] | | | | | | [phone] | | | +--------+ + + + [...]
--- OUTSIDE RECORDS SUMMARY | ~2019-11-22 | XMS | Encounter Summary ---
Demographics + + + | Address | [address] | | | [place] [address] | + + + | Home Phone [...] Team Providers + +------+ + | Care Petroleum Products Sales Representative Name | Role | Phone | [...] | | | [place], [place] | [address] | | | | | [address] | | | | | | [phone] | | | +--------+ + + + [...]
--- OUTSIDE RECORDS SUMMARY | ~2019-11-22 | XMS | Encounter Summary ---
Demographics + + + | Address | [address] | | | [place] [address] | + + + | Home Phone | | + + + | Preferred Language | Unknown | + + + | Marital Status | | + + + | Jehovah'S Witness Affiliation | PRE | + + + | Race | White | + + + | Ethnic Group | Not or | + + + Author + + + | Author | [facility] | + + + | Organization | [facility] | + + + | Address | Unknown | + + + | Phone | Unavailable | + + + Support + + + + + | Name | Relationship | Address | Phone | + + + + + | Ricarda Johnson | ECON | [address] | | | | | [place] | | | | | [address] | | + + + + + Care Team Providers + +------+ + | Care Research Worker Kitchen Name | Role | Phone | + +------+ + | Hay Greco MD | PCP | | + +------+ + Reason for Visit + + + | Reason | Comments | + + + | Postoperative visit | | + + + Global Period - Transplant (Routine) +--------+--------+ + + + + | Status | Reason | Specialty | Diagnoses / | Referred By | Referred To | | | | | Procedures | Contact | Contact | +--------+--------+ + + + + | Closed | | Surgery | | Non-[facility] | Gs | | | | | | Epic Dept | Colorectal | | | | | | | [facility] [address] | | | | | | [address] | | | | | | | Mailcode: | | | | | | | [facility] | | | | | | | [facility] and | | | | | | | Healing, | | | | | | | Building [address] | | | | | | | [place], [place] | | | | | | | [address] | | | | | | | Phone: | | | | | | | [phone] | | | | | | | Fax: | | | | | | | [phone] | +--------+--------+ + + + + Encounter Details +--------+---------+ + + + | Date | Type | Department | Care Team | Description | +--------+---------+ + + + | 11/12/ | Office | Digestive Health | Edgar Hampton, | Malignant neoplasm | | 2011 | Visit | [facility] at [facility] [address] | [address] | of rectum (HCC) | | | | Debbie Mock | [address] | (Primary Dx) | | | | Mailcode: [place] | [place], [place] | | | | | [facility] and | [address] | | | | | [facility], [facility] 2 | [phone] | | | | | [facility] [place] | | | | | | [address] | | | | | | [phone] | | | +--------+---------+ + + + [...] + + + | Blood Pressure | 145/72 | 11/13/2011 11:30 AM | | | | | PDT | | + + + + + | Pulse | 65 | 11/13/2011 11:30 AM | | | | | PDT | | + + + + + | Temperature | 37.4 C (99.3 F) | 11/13/2011 11:30 AM | | | | | PDT | | + + + + + | Respiratory Rate | 14 | 11/13/2011 11:30 AM | | | | | PDT | | + + + + + | Oxygen Saturation | - | - | | + + + + + | Inhaled Oxygen | - | - | | | Concentration | | | | + + + + + | Weight | 85.6 kg (188 lb 11.2 | 11/13/2011 11:30 AM | | | | oz) | PDT | | + + + + + | Height | 175.3 cm (5' 9") | 11/13/2011 11:30 AM | | | | | PDT | | + + + + + | Body Mass Index | 27.87 | 11/13/2011 11:30 AM | | | | | PDT | | + + + + + documented in this encounter Progress Notes Edgar Hampton MD - 11/13/2011 2:24 PM PDT ATTENDING PHYSICIAN STATEMENT I saw Cosmo Shoronny with Dr. Stafford. I have repeated the pertinent portions of the histor y and physical exam. I agree with the findings documented by Dr. Stafford. We have discussed the active issues and developed the assessment and plan as described together. Jonathan Croft MD - 11/13/2011 11:39 AM PDT 11/13/2011 11:39 AM Colorectal Surgery Clinic Follow up visit Date of operation: 07/26/10 Procedure: LAR/TME-ileostomy Pathology : [id number] (preoop [id number]) Date of operation: 10/31/11 Procedure: ileostomy closure Pathology: Negative for malignancy Here for two week follow up s/p ileostomy closure. Has had some difficulty since discharge from the hospital, with emesis and bloating in the first week, but since then this has reso lved with alternating bouts of frequent diarrhea and formed stool. He feels as though he is making progress with controlling the diarrhea with immodium though. His pain is well controlled, has not been taking any pain medications. Furthermore he is r esuming normal activity and is tolerating a normal diet. Last chemo January 2011. Continues to take dicloxacillin for MSSA sacral osteo, last dose will be January 2012. Denies recent illne ss, no nausea/vomiting, no CP/SOB. Meds/allergies reviewed. ROS negative except HPI Exam Filed Vitals: 11/13/2011 11:30 AM Height: 1.753 m (5' 9") Weight: 85.594 kg (188 lb 11.2 oz) BP: 145/72 Pulse: 65 Temp: 37.4 C (99.3 F) TempSrc: Oral Resp: 14 PainSc: 0 - Zero BMI: 27.87 kg/(m^2) NAD Chest clear Heart reg abd soft, NT, wound healing well, clean/dry/intact, no purlence. Assessment: 66 y.o. M doing well s/p ileostomy closure for rectal cancer with total remission s/p chemo radiation and low anterior resection with stapled coloproctostomy, diverting ileostomy in . Doing well s/p ileostomy closure on 10/31/11. He is interested in keeping as much of his surveillance as he can within his local area Plan See Dr Balderas for colonoscopy this summer. Has appt with Dr Olivo for Med Onc f/u in January. RTC as needed. Signed: Jonathan Stafford MD R-1, General Surgery Pager: [phone] [facility] Department of Surgery P DTdocumented in this encounter Plan of Treatment Not on filedocumented as of this encounter Procedures + +--------+ + + + | Procedure Name | Priori | Date/Time | Associated Diagnosis | Comments | | | ty | | | | + +--------+ + + + | ORDERS OTHER | | 11/13/2011 | | Results for this | | | | 12:00 AM | | procedure are in the | | | | PDT | | results section. | + +--------+ + + + documented in this encounter Results ORDERS OTHER (11/13/2011 12:00 AM PDT) + + + | Narrative | Performed At | + + + | | | | | | + + + + + | Procedure Note | + + | Cy Toribio - 08/26/2012 11:11 AM PST | + + documented in this encounter Visit Diagnoses + + | Diagnosis | + + | Malignant neoplasm of rectum (HCC) - Primary Malignant neoplasm of rectum | + + documented in this encounter
--- OUTSIDE RECORDS SUMMARY | ~2019-11-22 | XMS | Encounter Summary ---
Demographics + + + | Address | [address] | | | [place] [address] | + + + | Home Phone [...] + | Ricarda Johnson | ECON | [address] | | | | | [place] | | | | | [address] | | + + + + + Care Team Providers + +------+ + | Care Ton Container Shipper Name | Role | Phone | + [...] (HCC) | [address] | [address] [facility] | | | | | Sacral | [address] | [facility], | | | | | lesion | [place], [place] | 10th Floor | | | | | Procedures | | [place], [place] | | | | | CT CHEST, | Phone: | [phone] | | | | | ABDOMEN & | [phone] | Phone: | | | | | PELVIS W IV | Fax: | [phone] | | | | | CONTRAST | [phone] | Fax: | | | | | | | [phone] | +--------+--------+ + + + + Diagnostic Testing (Routine) +--------+--------+ + + + + | Status | Reason | Specialty | Diagnoses / | Referred By | Referred To | | | | | Procedures | Contact | Contact | +--------+--------+ + + + + | Closed | | Radiology | Diagnoses | [place], | Rad Pet Kpv | | | | | Malignant | Edgar Zuñiga MD | [address] | | | | | neoplasm of | [address] | | | | | rectum (HCC) | [address] | Ted | | | | | Sacral | [address] | [place], [address] | | | | | lesion | [place], [place] | floor | | | | | Procedures | | [place], [place] | | | | | PET SKULL | Phone: | [phone] | | | | | BASE TO | [phone] | Phone: | | | | | MID-THIGHS | Fax: | [phone] | | | | | | [phone] | Fax: | | | | | | | [phone] | +--------+--------+ + + + + Reason for Visit + + + | Reason | Comments | + + + | [place] - Cancer of | | | rectum | | + + + Encounter Details +--------+ + + + + | Date | Type | Department | Care Team | Description | +--------+ + + + + | 06/13/ | Telephone | Dig[facility]ive Health | Edgar Hampton, | [place] - Cancer of | | 2010 | | [place] at [facility] [address] | [address] | rectum | | | | Debbie Mock | [address] | | | | | Mailcode: Center | [place], [place] | | | | | [facility] and | [address] | | | | | [facility] 2 | [phone] | | | | | [place], [place] | | | | | | [address] | | | | | | [phone] | | | +--------+ + + + [...] on filedocumented as of this encounter Results PET SKULL BASE TO MID-THIGHS (06/21/2011 8:55 AM PST) + + + + + + | Component | Value | Ref Range | Performed | Pathologist | | | | | At | Signature | + + + + + + | PET SKULL | EXAM: PET Scan from | | | | | BASE TO | skull base to thighs | | | | | MID-THIGHS | 06/21/11 COMPARISON: CT | | | | | | chest, abdomen and | | | | | | pelvis 06/20/11. A | | | | | | report from | | | | | | anunavailable outside | | | | | | recent lumbar spine MRI | | | | | | also mentions | | | | | | abnormalleft sacral | | | | | | signal and enhancement | | | | | | suggestive of metastatic | | | | | | disease. HISTORY: | | | | | | Rectal cancer. | | | | | | Evaluate for | | | | | | recurrence. PROCEDURE: | | | | | | Following interview by | | | | | | nuclear medicine | | | | | | personnel, thepatient | | | | | | uneventfully receives | | | | | | 18-F fluorodeoxyglucose | | | | | | 13.56 mCi via aright | | | | | | antecubital intravenous | | | | | | injection. The blood | | | | | | glucose level is120. | | | | | | After 60 minutes in | | | | | | quiet conditions, low | | | | | | dose CT scanning | | | | | | forattenuation | | | | | | correction and anatomic | | | | | | localization is | | | | | | performed.Immediately | | | | | | following, and without | | | | | | moving the patient, | | | | | | standard bodyPET imaging | | | | | | is performed in 3D mode | | | | | | on a Iyyp-pi-Daihkf | | | | | | machine fromthe skull | | | | | | base through the mid | | | | | | thighs. Axial, | | | | | | sagittal, and | | | | | | coronalimages are | | | | | | evaluated with | | | | | | attenuation correction, | | | | | | non-attenuationcorrectio | | | | | | n, and PET/CT fusion. | | | | | | FINDINGS: The head and | | | | | | neck, chest, and abdomen | | | | | | demonstrate normal, | | | | | | physiologictracer | | | | | | uptake. There is mildly | | | | | | increased geographic | | | | | | abnormal FDG | | | | | | hypermetabolismwithin | | | | | | the left sacral ala | | | | | | immediately adjacent to | | | | | | the sacroiliacjoint with | | | | | | maximum SUV of 2.8 | | | | | | Minimally increased | | | | | | FDG avidity withinthe | | | | | | inferior aspect of the | | | | | | left L5 transverse | | | | | | process. Suggestion | | | | | | ofcortical lucency on | | | | | | low dose noncontrast CT | | | | | | images involving | | | | | | theanterior aspect of | | | | | | the left sacrum | | | | | | suggestive of fracture. | | | | | | No other abnormal focus | | | | | | of FDG uptake. | | | | | | Postsurgical changes of | | | | | | low anterior resection | | | | | | segmental | | | | | | distalcolonic/rectal | | | | | | resection and diverting | | | | | | right lower | | | | | | quadrantileostomy. | | | | | | IMPRESSION: 1. | | | | | | Geographic left sacral | | | | | | ala FDG hypermetabolism | | | | | | most likelyrepresenting | | | | | | insufficiency fracture. | | | | | | Pathologic fracture | | | | | | orunderlying metastasis | | | | | | is conceivable, although | | | | | | considered much | | | | | | lesslikely. Correlation | | | | | | with prior MR lumbar | | | | | | spine images would be | | | | | | useful.Further | | | | | | evaluation with pelvic | | | | | | MR with and without | | | | | | contrast may alsobe of | | | | | | benefit. 2. No other | | | | | | focus of abnormal | | | | | | uptake. Discussed with | | | | | | Dr. Hampton at time of | | | | | | study interpretation. | | | | | | Attending Radiologists: | | | | | | Cem Bob, | | | | | | DanielleAuthor: Tima | | | | | | Danielle Dean I have | | | | | | personally viewed this | | | | | | procedure/exam, reviewed | | | | | | this report,and made | | | | | | changes to it where | | | | | | appropriate. | | | | | | Final/Electronically | | | | | | signed / Cem Merritt | | | | | | Lisbeth 06/21/2011 12:06 | | | | | | PM Pending final | | | | | | approval / Tima | | | | | | Jermaine 06/21/2011 | | | | | | 11:23 AM Preliminary / | | | | | | Tima Dean | | | | | | 06/21/2011 11:08 AM | | | | + + [...] | | + +---------+ + + CT CHEST, ABDOMEN & PELVIS [...] hypoattenuating | | | | | | [id number] lesion | | | | | | [...]
--- OUTSIDE RECORDS SUMMARY | ~2019-11-22 | XMS | Encounter Summary ---
Demographics + + + | Address | [address] | | | [place] [address] | + + + | Home Phone | | + + + | Preferred Language | Unknown | + + + | Marital Status | | + + + | Anabaptism Affiliation | PRE | + + + [...] + | Ricarda Johnson | ECON | [address] | | | | | [place] | | | | | [address] | | + + + + + Care Team Providers + +------+ + | Care Lvn Lpn Name | Role | Phone | + [...] Medical Records | | 2013 | | [place] at [facility] [address] | [address] [facility] | Review ([facility] - | | | | Debbie Mock | [address] | OUTSIDE PROCEDURE | | | | Mailcode: Center | [place], [place] | REPORT 05/06/2014 | | | | for Health and | [address] | (colonoscopy)) | | | | [facility] 2 | [phone] | | | | | [place], [place] | | | | | | [address] | | | | | | [phone] | | | +--------+ + + + [...]
--- OUTSIDE RECORDS SUMMARY | ~2019-11-22 | XMS | Encounter Summary ---
Demographics + + + | Address | [address] | | | [place] [address] | + + + | Home Phone [...] + | Ricarda Johnson | ECON | [address] | | | | | [place] | | | | | [address] | | + + + + + Care Team Providers + +------+ + | Care Car Manager Name | Role | Phone | + +------+ + | Hay Greco MD | PCP | | + +------+ + Encounter Details +--------+ + + + + | Date | Type | Department | Care Team | Description | +--------+ + + + + | 07/24/ | Telephone | Digestive Health | Edgar Hampton, | | | 2011 | | [place] at [facility] [address] | [address] | | | | | Debbie Mock | [address] | | | | | Mailcode: Center | [place], [place] | | | | | for Health and | [address] | | | | | [facility], [facility] 2 | [phone] | | | | | [place], [place] | | | | | | [address] | | | | | | [phone] | | | +--------+ + + + [...]
--- OUTSIDE RECORDS SUMMARY | ~2019-11-22 | XMS | Encounter Summary ---
Demographics + + + | Address | [address] | | | [place] [address] | + + + | Home Phone [...] Team Providers + +------+ + | Care Revolving Inventory Clerk Name | Role | Phone | + +------+ + | Hay Greco MD | PCP | | + +------+ + Encounter Details +--------+ + + + + | Date | Type | Department | Care Team | Description | +--------+ + + + + | 02/07/ | [facility] | [facility] | Kemal Damian MD | DDD (degenerative | | 2017 | Encounter | MED CTR XRAY [address] | [address] | disc disease), | | | | [place] | [place] [address] | lumbar; Facet | | | | [place] [address] | [phone] | arthropathy, lumbar | | | | [phone] | | | +--------+ + + + [...] [address] | [place] | [phone] | | [facility] | | [address] | | | - IMAGING | | [...]
--- OUTSIDE RECORDS SUMMARY | ~2019-11-22 | XMS | Encounter Summary ---
Demographics + + + | Address | [address] | | | [place] [address] | + + + | Home Phone [...] Providers + +------+ + | Care Machine Puller And Laster Name | Role | Phone | + +------+ + | Hay Greco MD | PCP | | + +------+ + Reason for Visit +---------+ + | Reason | Comments | +---------+ + | Post Op | Update | +---------+ + Encounter Details +--------+ + + + + | Date | Type | Department | Care Team | Description | +--------+ + + + + | 10/26/ | Telephone | [facility] | Kemal Damian MD | Post Op (Update) | | 2013 | | NEUROSURGERY [address] | [address] | | | | | [address] | [place] [address] | | | | | [place] | [phone] | | | | | [address] | | | | | | [phone] | | | +--------+ + + + [...]
--- OUTSIDE RECORDS SUMMARY | ~2019-11-22 | XMS | Encounter Summary ---
Demographics + + + | Address | [address] | | | [place] [address] | + + + | Home Phone | | + + + | Preferred Language | Unknown | + + + | Marital Status | | + + + | Druze Affiliation | 1077 | + + + | Race | Unknown | + + + | Ethnic Group | Unknown | + + + Author + + + | Author | [facility] | | | and [place] | + + + | Organization | [facility] | | [...] Team Providers + +------+ + | Care Auto Travel Counselor Name | Role | Phone | + +------+ + | Hay Greco MD | PCP | | + +------+ + Encounter Details +--------+ + + + + | Date | Type | Department | Care Team | Description | +--------+ + + + + | 05/06/ | Episode | [facility] | Dulce Cunningham, | | | 2017 | Changes | NEUROSURGERY [address] | Credit Compliance Officer | | | | | [address] | | | | | | [place] | | | | | | [address] | | | | | | [phone] | | | +--------+ + + + [...]
--- OUTSIDE RECORDS SUMMARY | ~2019-11-22 | XMS | Encounter Summary ---
Demographics + + + | Address | [address] | | | [place] [address] | + + + | Home Phone | | + + + | Preferred Language | Unknown | + + + | Marital Status | | + + + | Yarsani Affiliation | 1077 | + + + [...] Team Providers + +------+ + | Care Undercover Agent Name | Role | Phone | + +------+ + | Aldo Frank DO | PCP | | + +------+ + Encounter Details +--------+ + + + + | Date | Type | Department | Care Team | Description | +--------+ + + + + | 10/14/ | Imaging | [facility] | Provider, | | | 2020 | Exam | MED CTR EXTERNAL | [address] | | | | | IMAGING [address] | [address] | | | | | [address] | [place] [address] | | | | | [place] [address] | | | | | | [phone] | | | +--------+ + + + [...] MRI LUMBAR SPINE WO | Routin | 05/01/2018 | | Results for this | | CONTRAST | e | 12:00 AM | | procedure are in the | | | | PDT | | results section. | + +--------+ + + + documented in this encounter Results MRI Lumbar Spine wo Contrast (05/01/2018 12:00 AM PDT) + + | Specimen | + + | | + + + + + | Narrative | Performed At | + + + | External films for comparison only | [facility] | | | | | No results will be in the chart. | | + + + + +---------+ + + | Performing | Address | City/State/Zipcode | Phone Number | | Organization | | | | + +---------+ + + | [facility] | | | | + +---------+ + + documented in this encounter Visit Diagnoses Not on filedocumented in this encounter"
--- OUTSIDE RECORDS SUMMARY | ~2019-11-22 | XMS | Encounter Summary ---
Demographics + + + | Address | [address] | | | [place] [address] | + + + | Home Phone | | + + + | Preferred Language | Unknown | + + + | Marital Status | | + + + | Scientology Affiliation | PRE | + + + [...] + | Ricarda Johnson | ECON | [address] | | | | | [place] | | | | | [address] | | + + + + + Care Team Providers + +------+ + | Care Technology Applications Consultant Name | Role | Phone | + [...] Required | | tumor | [place] | [facility] [address] | | | | | Procedures | SURGICAL | [address] | | | | | CONSULT TO | CLINIC [facility] | Mailcode: | | | | | [address] | [address] | [facility] | | | | | SURGERY | AVE | Health and | | | | | | [place], | Healing, | | | | | | [place] [address] | [address] | | | | | | Phone: | [place], [place] | | | | | | [phone] | [address] | | | | | | Fax: | Phone: | | | | | | [phone] | [phone] | | | | | | | Fax: | | | | | | | [phone] | +--------+ + + + + + [...] | | | | Mailcode: Center | [place], [place] | | | | | for Health and | [address] | | | | | [facility] | [phone] | | | | | [place], [place] | | | | | | [address] | | | | | | [phone] | | | +--------+---------+ + + + [...] | + +--------+ + + + | MD | Routin | 05/30/2010 | Malignant neoplasm [...]
--- OUTSIDE RECORDS SUMMARY | ~2019-11-22 | XMS | Encounter Summary ---
Demographics + + + | Address | [address] | | | [place] [address] | + + + | Home Phone | | + + + | Preferred Language | Unknown | + + + | Marital Status | | + + + | Christian Affiliation | 1077 | + + + | Race | Unknown | + + + | Ethnic Group | Unknown | + + + Author + + + | Author | [facility] | | | and [place] | + + + | Organization | [facility] | | | and [...] Team Providers + +------+ + | Care Stock Crane Operator Name | Role | Phone | + +------+ + PCP | Unavailable | + +------+ + Encounter Details +--------+ + + + + | Date | Type | Department | Care Team | Description | +--------+ + + + + | 04/10/ | Hospital | [facility] | | | | 2009 | Encounter | MED CTR GENERIC OP | | | | | | CONV DEPT [address] | | | | | | [place], | | | | | | [place] [address] | | | | | | [phone] | | | +--------+ + + + [...]
--- OUTSIDE RECORDS SUMMARY | ~2019-11-22 | XMS | Encounter Summary ---
Demographics + + + | Address | [address] | | | [place] [address] | + + + | Home Phone | | + + + | Preferred Language | Unknown | + + + | Marital Status | | + + + | Jainism Affiliation | 1077 | + + + | Race | Unknown | + + + | Ethnic Group | Unknown | + + + Author + + + | Author | [facility] | | | and [place] | + + + | Organization | [facility] | | [...] Team Providers + +------+ + | Care Marketing Graphics Specialist Name | Role | Phone | + +------+ + | Hay Greco MD | PCP | | + +------+ + Reason for Visit +---------+ + | Reason | Comments | +---------+ + | Post Op | 12 week SX: 06/19/17 | +---------+ + Encounter Details +--------+---------+ + + + | Date | Type | Department | Care Team | Description | +--------+---------+ + + + | 09/13/ | Office | [facility] | Kemal Damian MD | S/P lumbar fusion | | 2018 | Visit | NEUROSURGERY [address] | [address] | (Primary Dx) | | | | [address] | [place] [address] | | | | | [place] | [phone] | | | | | [address] | | | | | | [phone] | | | +--------+---------+ + + + [...] + + + | Blood Pressure | 126/78 | 09/13/2017 9:36 AM | | | | | PST | | + + + + + | Pulse | 80 | 09/13/2017 9:36 AM | | | | | PST [...] + + + + | Weight | 86 kg (189 lb 9.5 | 09/13/2017 9:36 AM | | | | oz) | PST | | + + + + + | Height | 175.3 cm (5' 9") | 09/13/2017 9:36 AM | | | | | PST | | + + + + + | Body Mass Index | 28 | 09/13/2017 9:36 AM | | | | | PST [...] encounter Progress Notes Kemal Damian MD - 09/13/2017 10:00 AM PSTFormatting of this note might be different from t arturo original. Kemal Damian MD [address] [place] [address], [address] [place] [address] FAX: NEUROSURGERY FOLLOW-UP CHIEF COMPLAINT: Chief Complaint Patient presents with Post Op 12 week SX: 06/19/17 HISTORY OF PRESENT ILLNESS: The patient is a 72 y.o. male that had a L1-2 LAIF w/ Lateral Plating for back and leg symptoms around 3 months ago. He returns and overall is doing well . The patient complains of lower back pain but has noticed improvement in his leg symptoms. The patient has been walking one mile per day. He is still taking pain medications at this point, but is decreasing his intake week by week. The patient has had no issues with his s urgical site. He recently started PT. CURRENT MEDICATIONS: Current Outpatient Prescriptions Medication Sig Dispense Refill acetaminophen (TYLENOL) 325 mg tablet Take 650 mg by mouth 3 times daily. Prn pain hydroCHLOROthiazide 25 mg tablet Take 1 tablet by mouth Daily. 0 HYDROcodone-acetaminophen (NORCO) 7.5-325 mg per tablet Take 1-2 tablets by mouth every 4 hours as needed for Pain. 120 tablet 0 morphine (MS CONTIN) 15 mg ER tablet Take 1 tablet by mouth 2 times daily. 60 tablet 0 potassium chloride (KLOR-CON) 10 [...] addition, the patient has numbness/pain of arms, pain in back. PSYCHIATRIC: No depression, no sleep disorders, no anxiety, no bipolar disorder, no psycho tic episodes. CARDIOVASCULAR: No heart attacks, no heart murmur, no heart fluttering, no chest pain, + a nkle swelling. LUNG DISEASE: No shortness of breath, [...] rheumatoid arthritis. INTERIM PHYSICAL EXAMINATION: Blood pressure 126/78, pulse 80, height 1.753 m (5' 9"), weight 86 kg (189 lb 9.5 oz). Body mass index is 28 kg/m. GENERAL: Cosmo Johnson is in no [...] not be expected at thi s time. ASSESSMENT: Encounter Diagnosis Name Primary? S/P [...] Some of the preoperative symptoms are improved. I increased the patient s activities now [...] and to advance with therapy as tolerated. I wrote an Rx today but stressed his need to taper his pain medication. The patient needs to follow-up in 3-4 months with x-rays for re-evaluation. ELECTRONICALLY SIGNED BY: Kemal Damian MD, 09/13/2017 11:25 documented in this encou nter Plan of Treatment Not on filedocumented as of this encounter Results XR Lumbar Spine 2 or 3 Vw (12/17/2017 10:08 AM PDT) + + | Specimen | + + | | + + + + + | Narrative | Performed At | + + + | EXAM:XR LUMBAR SPINE 2 OR 3 VW CLINICAL HISTORY: Postop | [facility] | | COMPARISON: Lumbar spine radiographs dating to June 19, 2017. | | | FINDINGS: Frontal and lateral views. There are posterior, lateral, | | | and interbody fusion changes from L1 through L4. The hardware is | | | intact. No change in positioning of the interbody graft markers. | | | No change in spinal alignment. Stable positioning of posterior | | | spinous process plate at L2-L3. Disc collapse, endplate sclerosis, | | | and slight retrolisthesis at T12-L1 and L4-L5. Surgical sutures in | | | the right abdomen. Calcifications projecting over the left kidney. | | | IMPRESSION - No radiographic evidence for an interval | | | complication. Left nephrolithiasis. Dictated and Signed by: | | | Shayne Barreto MD Electronically signed: 12/17/2017 11:11 AM | | + + + + + | Procedure Note | + + | Dwayne Mendoza Results In - 12/17/2017 11:14 AM PDT EXAM:XR LUMBAR SPINE 2 OR 3 VW | | | | CLINICAL HISTORY: Postop | | | | COMPARISON: Lumbar spine radiographs dating to June 19, 2017. | | | | FINDINGS: Frontal and lateral views. There are posterior, lateral, and | | interbody fusion changes from L1 through L4. The hardware is intact. No change | | in positioning of the interbody graft markers. No change in spinal alignment. | | Stable positioning of posterior spinous process plate at L2-L3. Disc collapse, | | endplate sclerosis, and slight retrolisthesis at T12-L1 and L4-L5. | | | | Surgical sutures in the right abdomen. Calcifications projecting over the left | | kidney. | | | | IMPRESSION - | | | | No radiographic evidence for an interval complication. | | | | Left nephrolithiasis. | | | | Dictated and Signed by: Shayne Barreto MD | | Electronically signed: 12/17/2017 11:11 AM | + + + +---------+ + + | Performing | Address | City/State[facility] | Phone Number | | Organization | | | | + +---------+ + + | [facility] | | | | + +---------+ + + documented in this encounter Visit Diagnoses + + | Diagnosis | + + | S/P lumbar fusion - Primary Arthrodesis status | + + documented in this encounter
--- OUTSIDE RECORDS SUMMARY | ~2019-11-22 | XMS | Encounter Summary ---
Demographics + + + | Address | [address] | | | [place] [address] | + + + | Home Phone [...] + + + | Author | [facility] | + + + | Organization | [facility] | + + + | Address | Unknown | + + + | Phone | Unavailable | + + + Support + + + + + | Name | Relationship | Address | Phone | + + + + + | Ricarda Olivera | ECON | [address] | | | | | [place] | | | | | [address] | | + + + + + Care Team Providers + +------+ + | Care Client Service Administrator Name | Role | Phone | [...] Description | +--------+---------+ + + + | 10/30/ | Surgery | 6A Intra Op [id number] | Edgar Hampton, | OPEN ILEOSTOMY | | 2011 | | [place] [address] | [address] [facility] | CLOSURE Specimen | | | | Rd [facility] | [facility] [address] | X1(ileostomy-Romeo) | | | | Hospital Admitting | [place], [place] | | | | | Desk Located on the | [address] | | | | | 9th floor | [phone] | | | | | [place], [place] | | | | | | [address] | | | +--------+---------+ + + + [...] + + + | Blood Pressure | 127/81 | 11/03/2011 7:55 AM | | | | | PDT | | + + + + + | Pulse | 84 | 11/03/2011 7:56 AM | | | | | PDT | | + + + + + | Temperature | 36.8 C (98.2 F) | 11/03/2011 7:55 AM | | | | | PDT | | + + + + + | Respiratory Rate | 12 | 11/03/2011 3:40 AM | | | | | PDT | | + + + + + | Oxygen Saturation | 97% | 11/03/2011 7:56 AM | | | | | PDT | | + + + + + | Inhaled Oxygen | - | - | | | Concentration | | | | + + + + + | Weight | 82.1 kg (181 lb) | 10/31/2011 4:41 PM | | | | | PDT | | + + + + + | Height | 179.8 cm (5' 10.8") | 10/31/2011 4:41 PM | | | | | PDT | | + + + + + | Body Mass Index | 25.39 | 10/31/2011 4:41 PM | | | | | PDT | | + + + + + documented in this encounter Discharge Summaries Mary Jane Prieto MD - 11/03/2011 8:38 AM PDTFormatting of this note might be different f rom the original. DISCHARGE SUMMARY: Patient: Tylor Olivera Admission Date: 10/31/2011 Discharge Date: 11/03/2011 Attending Physician: Edgar Hampton MD PCP: Marly Greco MD Service: [facility] colorectal Diagnoses Principal Final Diagnosis: 1. Rectal cancer Additional Diagnoses: Procedures 1. Ileostomy closure Brief Hospital Course 1. Underwent above procedure which was uneventful. Pain initially controlled with IV narcot ics, now well controlled on oral. Tolerating regular diet. Ivan drain discontinued. Voidi ng without difficulty. Ambulatory. Diet Regular Regular diet- There are no restrictions to your diet. You may eat or drink whatever you pr efer, though healthy food choices are recommended. Activity No activity restrictions Follow Up Appointments: Destination: Destination: Home Condition on Discharge Good PCP:Marly Greco MD When: Please follow-up with your primary care physician as soon as possibl e to review new medications and recent interventions Current Discharge Medication List START taking these medications Details oxyCODONE, immediate release, 5 mg Oral Tablet Take 1-3 Tabs by mouth every three hours as needed. Qty: 100 Tab, Refills: 0 CONTINUE these medications which have NOT CHANGED Details ASPIRIN/ACETAMINOPHEN/CAFFEINE (EXCEDRIN MIGRAINE ORAL) Take by mouth. dicloxacillin 500 mg Oral Capsule Take 1 Cap by mouth four times daily. Qty: 120 Cap, Refills: 3 GLUC NASH/CHONDRO NASH A/VIT C/MN (GLUCOSAMINE CHONDROITIN MAXSTR ORAL) Take by mouth once elin ly. multivitamin Oral Capsule Take 1 Cap by mouth once daily. Weston-3 Fatty Acids-Vitamin E (FISH OIL) 1,000 mg Oral Capsule Take by mouth. Special Instructions/Tests: none Condition On Discharge: Good Vital Signs at discharge as appropriate: BP: 127/81 mmHg (11/03/11 0755) Pulse: 84 (11/03/11 0756) Resp: 12 (11/03/11 0340) Weight: 82.101 kg (181 lb) (10/31/11 1641) Discharge Patient To: Home Discharging Provider: MARY JANE PRIETO MD Date Completed: 11/03/2011 Time Completed: 8:39 AM Discharging Attending: MD Mary Jane Cain MD MICHELLE C ELLIS, MD [facility] Department of Surgery Resident documented in this e ncounter Medications at Time of Discharge + + [...] + + + +---------+ + + | Weston-3 Fatty | Take by mouth. | | [...] documented as of this encounter Progress Notes Margo Cornejo MD,PhD - 11/03/2011 8:54 AM PDTPOD#3 s/p ileostomy takedown S: tono po, pain controlled, no complaints O: AF VSS RA I/O: 2.3L/ 700ml + stool NAD RRR Breathing non labored RA Abd soft, min ttp, incision c and intact, ivan drain removed and new dressing applied A/P: Doing well - d/c to home - wound care education - fu with Dr. Cummingsectronically signed by Margo Cornejo MD,PhD at 11/03/2011 8:56 AM PDT Gali Waggoner - 11/02/2011 11:33 AM PDTPatient Name: TYLOR OLIVERA Date of : 1945 CASE MANAGEMENT PROGRESS NOTE UPDATED DISCHARGE PLANNING INFORMATION * Notes: Pt may discharge to home today or tomorrow. Pt lives in [facility]. Will follow. Electronically signed by:Gali Waggoner Position:Cloth Bleaching Range Tender Pager ID:NOT [phone] Renata Galindo ACNP - 11/02/2011 8:25 AM PDT Inpatient Progress Note Hospital Day #2 Author: MARINA GALVAN Attending: Edgar Hampton MD ID: Tylor Olivera is a 66 year old male Interval Hx: reporting GERD and diarrhea yesterday with Alvimopan.Creatinine elevated yeste rday 1.18. Voiding without retention. Not taking in as much liquids due to the GERD. Dress ing taken down and dry dressing applied.Not ready for discharge today. + flatus, stool. No acute events noted Physical Examination Last Vitals: BP 140/83 | Pulse 80 | Temp 37 C (98.6 F) | RR 16 | Ht 179.8 cm (5' 10.8") | Wt 82.101 kg (181 lb) | SpO2 97% | BMI 25.39 kg/(m^2) 24 Hour Vital Min/Max: Systolic (24hrs), Av mmHg, Min:136 mmHg, Max:140 mmHgDiastolic (24hrs), Av mmHg, M in:72 mmHg, Max:83 mmHgPulse Av.5 Min: 58 Max: 80 Temp Av.2 C (99 F) Min: 37 C (98.6 F) Max: 37.5 C (99.5 F) Resp Av Min: 16 Max: 16 SpO2 Av % Min: 96 % Max: 98 % Intake/Output Summary (Last 24 hours) at 11/02/11 0700 Last data filed at 11/02/11 0400 Gross per 24 hour Intake 2733.33 ml Output 2100 ml Net 633.33 ml General: Awake, alert, and oriented x4, no acute distress HEENT: PERRLA, EOMI Pulm: Bilaterally clear to auscultation; negative wheezes or rales; excellent inspiratory e ffort Cardio: Regular rate and rhythm; negative murmur, rubs, or gallops; S1S2 Abdomen: Soft. Non-tender to palpation in all four quadrants, right ostomy takedown site in tact, no erythema, small serosang output, ivan intact MS: Moves all extremities well, Warm and well perfused Derm: -no erythema, edema, ecchymosis Current Inpatient Medications Medication Dose Route Frequency acetaminophen (aka TYLENOL) tablet 325-650 mg 325-650 mg Oral Q4H PRN dextrose 5%-NaCl 0.45%-KCl 20 mEq/L IV infusion 50 mL/hr Intravenous CONTINUOUS dicloxacillin (aka DYNAPEN) capsule 500 mg 500 mg Oral QID enoxaparin (aka LOVENOX) injection 40 mg 40 mg Subcutaneous QNOON famotidine (aka PEPCID) tablet 20 mg 20 mg Oral BID menthol-zinc oxide (aka CALAZIME) topical paste Topical TID PRN naloxone (aka NARCAN) injection Intravenous PRN nystatin (aka MYCOSTATIN) ointment Topical BID ondansetron (aka ZOFRAN) injection 4 mg 4 mg Intravenous Q12H ondansetron (aka ZOFRAN) injection 4 mg 4 mg Intravenous Q12H PRN ondansetron ODT (aka ZOFRAN ODT) tablet 4 mg 4 mg Oral ONCE oxyCODONE immediate release (aka ROXICODONE) tablet 5-10 mg 5-10 mg Oral Q4H PRN Chemistries: Last 72 Hours (or 3 results): Recent Labs Basename 11/01/11 0500 10/31/11 1756 10/30/11 1134 NA 134 -- 138 K 4.5 -- 4.3 CL 105 -- 107 BICARB 23 -- 23 BUN 7 -- 15 CR 1.18 -- 1.20 GLU 119* 111* 85 CA 8.6 -- 9.3 MG 1.7* -- -- PO4 -- -- -- CBC with diff last 72 hours (or 3 results) Recent Labs Basename 11/01/11 0500 10/30/11 1133 WBC 5.6 5.5 HB 10.8* 12.7* HCT 31.2* 37.1* PLT 167 208 NEUTROPERC -- -- BANDPCT -- -- LYMPHPERC -- -- MONOPERC -- -- BASOPERC -- -- EOSPERC -- -- Assessment: Tylor Olivera is a 66 year old male POd 2, ileostomy take down, history of rectal cancer Plan: NEURO - oral pain meds effective CV - stable BP and pulse PULM - no hypoxia, IS FEN - no labs today GI - pepcid BID ordered, dc'd alvimopan, calazyme for anal care, regular low fiber diet RENAL - adequate urine output, 2.1 liters ENDO - 119, stable HEME/ID - no new labs, 31.2 Hct yesterday, WBC 5.6, in normal range, continues on the diclo x PROPHY - Lovenox, famotidine DISPO - likely discharge tomorrow, if tolerating diet. Check with Dr. Cornejo and Dr. Nino BURGESS, [facility] [id number] [facility] [address] This assessment and plan was formulated both independently and in conjunction with the Surg ical team as well as the attending provider above. Belén Mendez R N - 11/01/2011 7:04 AM PDTPatient Name: TYLOR OLIVERA Date of : 1945 CASE MANAGEMENT INITIAL ASSESSMENT SOURCE OF INFORMATION Assessment information came from: chart review REASON FOR ADMISSION The circumstances leading to hospitalization are as follows: Notes: Pt with a history of rectal cancer admitted to servin s/p ileostomy takedown PRIOR HOME SERVICES IN PLACE Home services in place prior to admission included the following: *None Names of agencies providing services include the following: Notes: Has used [facility] in the past for IV abx LIVING SITUATION AND SUPPORT SYSTEM Prior to admission, the living situation and support system included: House or Apartment, With Spouse or Domestic Partner FUNCTIONAL STATUS Patient's baseline functional status prior to coming to admission: Independent POTENTIAL FOR READMISSION My assessment indicates the following high risk factors for readmission apply: Male TRANSPORTATION AVAILABLE Patient's plan for discharge transportation: ANTICIPATED DISCHARGE NEEDS My assessment indicates the following discharge needs are expected: *None The initial plan was discussed with: Not applicable, no needs identified Electronically signed by:Macie Wahl Position:Cloth Bleaching Range Tender Pager ID:[phone] Electronically signed on:2011-11-01 0704Electronically signed by Belén Wahl RN at 10/31 7:04 AM Margo Kenny MD,PhD - 11/01/2011 7:01 AM PDTPOD#1 s/p ileostomy takedown S: reports bm ovnernight with good controlled, no n/v, pain controlled O: AF VSS RA I/O: 2.4L/2.1L (500ccPO) NAD RRR Breathing non labored RA Abd soft, nd, approp ttp, dressings dry and intact A/P: Doing well POD#1 - d/c flynn - advance diet as tolerated - PO pain meds - encourage ambulation, IS documented in this e ncounter Plan of Treatment Not on filedocumented as of this encounter Procedures + +--------+ + + + | Procedure Name | Priori | Date/Time | Associated Diagnosis | Comments | | | ty | | | | + +--------+ + + + | MA CLOSE | Routin | 08/19/2015 | | Results for this | | ENTEROSTOMY,RESEC+AN | e | 2:52 AM | | procedure are in the | | AST | | PST | | results section. | + +--------+ + + + | PROCEDURE NOTE | Routin | 08/19/2015 | | Results for this | | | e | 2:45 AM | | procedure are in the | | | | PST | | results section. | + +--------+ + + + | RESP CARE THERAPY | Routin | 11/03/2011 | | Results for this | | | e | 2:00 AM | | procedure are in the | | | | PDT | | results section. | + +--------+ + + + | C. DIFFICILE TOXIN, | Routin | 11/02/2011 | | Results for this | | W/REFLEX | e | 11:46 AM | | procedure are in the | | CONFIRMATION IF | | PDT | | results section. | | INDETERMINATE | | | | | | RESULTS | | | | | + +--------+ + + + | RESP CARE THERAPY | Routin | 11/02/2011 | | Results for this | | | e | 4:47 AM | | procedure are in the | | | | PDT | | results section. | + +--------+ + + + | BASIC METABOLIC SET | Urgent | 11/01/2011 | | Results for this | | (NA, K, CL, TCO2, | | 5:00 AM | | procedure are in the | | BUN, CR, GLU, CA) | | PDT | | results section. | + +--------+ + + + | CBC ONLY | Urgent | 11/01/2011 | | Results for this | | | | 5:00 AM | | procedure are in the | | | | PDT | | results section. | + +--------+ + + + | MAGNESIUM, PLASMA | Urgent | 11/01/2011 | | Results for this | | | | 5:00 AM | | procedure are in the | | | | PDT | | results section. | + +--------+ + + + | RESP CARE THERAPY | Routin | 11/01/2011 | | Results for this | | | e | 4:42 AM | | procedure are in the | | | | PDT | | results section. | + +--------+ + + + | GLUCOSE, PLASMA | Urgent | 10/31/2011 | | Results for this | | | | 5:56 PM | | procedure are in the | | | | PDT | | results section. | + +--------+ + + + | ILEOSTOMY | Electi | 10/31/2011 | Rectal cancer | | | CLOSURE/TAKEDOWN | ve | 9:25 AM | ([facility]) | | | | Surgic | PDT | | | | | al | | | | + +--------+ + + + | LAB REPORTS | | 10/31/2011 | | Results for this | | | | 12:00 AM | | procedure are in the | | | | PDT | | results section. | + +--------+ + + + | LAB REPORTS | | 10/31/2011 | | Results for this | | | | 12:00 AM | | procedure are in the | | | | PDT | | results section. | + +--------+ + + + | SURGICAL PATHOLOGY | Routin | 10/31/2011 | | Results for this | | | e | | | procedure are in the | | | | | | results section. | + +--------+ + + + documented in this encounter Results MA CLOSE ENTEROSTOMY,RESEC+ANAST (08/19/2015 2:52 AM PST)PROCEDURE NOTE (08/19/2015 2:45 AM PST) + + | Transcriptions | + + | Other, Faculty - 11/07/2011 8:25 AM PDT | + + RESP CARE THERAPY (11/03/2011 2:00 AM PDT) + + + + +- + | Component | Value | Ref Range | Performed | Pathologist | | | | | At | Signature | + + + + +- + | RESPIRATORY | Oxygen device on | | [facility] | | | CARE | standby, nasal canula. | | RESPIRATORY | | | | Electronically | | THERAPY | | | | Signed by: Terrence Simmons | | | | Troy Hayes RCP | | | | | | | | | | | | | | | | | | | | | | | | | | | | | |Electronically Signed by: Terrence Hayes RCP | | | | + + + + +- + + + | Specimen | + + | | + + + + + + + | Performing | Address | City/State/Zipcode | Phone Number | | Organization | | | | + + + + + | [facility] | [address] | [place], [place] | | | THERAPY | [address] | [address] | | + + + + + C. DIFFICILE TOXIN (11/02/2011 11:46 AM PDT) + + + + + + | Component | Value | Ref Range | Performed | Pathologist | | | | | At | Signature | + + + + + + | C. | NegativeComment: | | [facility] | | | DIFFICILE | Reference Range: | | DEPARTMENT | | | TOXIN | Negative | | OF | | | | | | PATHOLOGY | | + + + + + + + + | Specimen | + + | Stool - Stool | + + + + + + + | Performing | Address | City/State/Zipcode | Phone Number | | Organization | | | | + + + + + | [facility] | [address] | [place] [address] | | | PATHOLOGY | [address] | | | + + + + + RESP CARE THERAPY (11/02/2011 4:47 AM PDT) + + + + +------ --------+ | Component | Value | Ref Range | Performed | Patho logist | | | | | At | Signa ture | + + + + +------ --------+ | RESPIRATORY | Oxygen device on | | [facility] | | | CARE | standby, nasal canula. | | RESPIRATORY | | | | Electronically | | THERAPY | | | | Signed by: Nam Castro, | | | | | | LUNCHEONETTE OPERATOR | | | | | | | | | | | | | | | | | | | | | | | | | | | | | |Electronically Signed by: Nam Castro RCP | | | | + + + + +------ --------+ + + | Specimen | + + | | + + + + + + + | Performing | Address | City/State/Zipcode | Phone Number | | Organization | | | | + + + + + | [facility] | [address] | [place], [place] | | | THERAPY | [address] | [address] | | + + + + + MAGNESIUM, PLASMA (11/01/2011 5:00 AM PDT) + +---------+ + + + | Component [...] Performed At | + + + | Sample hemolyzed. Results for K, Total Bili., Direct Bili., AST, LD, | [facility] | | or HDL may be inaccurate. Refer to comment under test result. | DEPARTMENT OF | | | PATHOLOGY | + + + + + + + + | Performing | Address | City/State/Zipcode | Phone Number | | Organization | | | | + + + + + | [facility] DEPARTMENT OF | [address] | [place] [address] | | | PATHOLOGY | [address] | | | + + + + + BASIC METABOLIC SET (NA, K, CL, TCO2, BUN, CR, GLU, CA) (11/01/2011 5:00 AM PDT) + +---------+ + + + | Component | Value | Ref Range | Performed | Pathologist | | | | | At | Signature | + +---------+ + + + | GLUCOSE, | 119 (H) | 60 - 99 mg/dL | [facility] | | | PLASMA | | | DEPARTMENT | | | (LAB) | | | OF | | | | | | PATHOLOGY | | + +---------+ + + + | BUN, PLASMA | 7 | 6 - 20 mg/dL | [facility] | | | (LAB) | | | DEPARTMENT | | | | | | OF | | | | | | PATHOLOGY | | + +---------+ + + + | CREATININE | 1.18 | 0.70 - 1.30 | [facility] | | | PLASMA | | mg/dL | DEPARTMENT | | | (LAB) | | | OF | | | | | | PATHOLOGY | | + +---------+ + + + | SODIUM, | 134 | 134 - 143 | [facility] | | | PLASMA | | mmol/L | DEPARTMENT | | | (LAB) | | | OF | | | | | | PATHOLOGY | | + +---------+ + + + | POTASSIUM, | 4.5 | 3.4 - 5.0 | [facility] | | | PLASMA | | mmol/L | DEPARTMENT | | | (LAB) | | | OF | | | | | | PATHOLOGY | | + +---------+ + + + | CHLORIDE, | 105 | 97 - 108 mmol/L | [facility] [...] +---------+ + + + | CALCIUM, | 8.6 | 8.6 - 10.2 | [facility] | [...] +---------+ + + + | POTASSIUM | [address]EMO | | [facility] | | | CMNT | | | DEPARTMENT | | | | | | OF | | | | | | PATHOLOGY | | + +---------+ + + + + + | Specimen | + + | Blood - Blood | + + + + + | Narrative | Performed At | + + + | Sample hemolyzed. Results for K, Total Bili., Direct Bili., AST, LD, | [facility] | | or HDL may be inaccurate. Refer to comment under test result. | DEPARTMENT OF | | | PATHOLOGY | + + + + + + + + | Performing | Address | City/State/Zipcode | Phone Number | | Organization | | | | + + + + + | [facility] | [address] | [place] [address] | | | PATHOLOGY | [address] | | | + + + + + CBC ONLY (11/01/2011 5:00 AM PDT) + + + + + + | Component | Value | Ref Range | Performed | Pathologist | | | | | At | Signature | + + + + + + | WHITE CELL | 5.6 | 4.4 - 11.0 K/cu | [facility] | | | COUNT | | mm | DEPARTMENT | | | | | | OF | | | | | | PATHOLOGY | | + + + + + + | RED CELL | 3.42 (L) | 4.50 - 5.90 | [facility] | | | COUNT | | M/cu mm | DEPARTMENT | | | | | | OF | | | | | | PATHOLOGY | | + + + + + + | HEMOGLOBIN | 10.8 (L) | 13.5 - 17.5 | [facility] | | | | | g/dL | DEPARTMENT | | | | | | OF | | | | | | PATHOLOGY | | + + + + + + | HEMATOCRIT | 31.2 (L) | 41.0 - 53.0 % | [facility] | | | | | | DEPARTMENT | | | | | | OF | | | | | | PATHOLOGY | | + + + + + + | MCV | 91.3 | 80.0 - 96.0 fL | [facility] | | | | | | DEPARTMENT | | | | | | OF | | | | | | PATHOLOGY | | + + + + + + | MCHC | 34.7 | 33.4 - 35.5 | [facility] | | | | | g/dL | DEPARTMENT | | | | | | OF | | | | | | PATHOLOGY | | + + + + + + | RDW | 12.9 | 11.5 - 15.0 % | [facility] | | | | | | DEPARTMENT | | | | | | OF | | | | | | PATHOLOGY | | + + + + + + | PLATELET | 167 | 150 - 400 K/cu | [facility] [...] | + + + + + | [facility] DEPARTMENT OF | [address] | [place] [address] | | | PATHOLOGY | [address] | | | + + + + + RESP CARE THERAPY (11/01/2011 4:42 AM PDT) + + + + + ----+ | Component | Value | Ref Range | Performed | Pathologi st | | | | | At | Signature | + + + + + ----+ | RESPIRATORY | Oxygen device on | | [facility] | | | CARE | standby, nasal canula. | | RESPIRATORY | | | | Electronically | | THERAPY | | | | Signed by: Alec Swan, | | | | | | | | | | | | | | | | | | | | | | | | | | | | | | | | | | | |Electronically Signed by: Alec Swan, | | | | + + + + + ----+ + + | Specimen | + + | | + + + + + + + | Performing | Address | City/State/Zipcode | Phone Number | | Organization | | | | + + + + + | [facility] | [address] | [place], [place] | | | THERAPY | [facility] | [address] | | + + + + + GLUCOSE, PLASMA (10/31/2011 5:56 PM PDT) + +---------+ + + + | Component | Value | Ref Range | Performed | Pathologist | | | | | At | Signature | + +---------+ + + + | GLUCOSE, | 111 (H) | 60 - 99 mg/dL | [...] + + + + | [facility] | [address] | [place] [address] | | | PATHOLOGY | [address] | | | + + + + + LAB REPORTS (10/31/2011 12:00 AM PDT) + + + | Narrative | Performed At | + + + | | | + + + + + | Transcriptions | + + | Cy Toribio - 11/07/2011 11:22 AM PDT | + + LAB REPORTS (10/31/2011 12:00 AM PDT) + + + | Narrative | Performed At | + + + | | | + + + + + | Transcriptions | + + | Cy Toribio - 11/07/2011 8:25 AM PDT | + + SURGICAL PATHOLOGY (10/31/2011) + + + + + + | Component | Value | Ref Range | Performed | Pathologist | | | | | At | Signature | + + + + + + | SURGICAL | SOURCE OF SPECIMEN:A | | [facility] | | | PATHOLOGY | Ileostomy Final | | DEPARTMENT | | | | Pathologic | | OF | | | | Diagnosis:Ileostomy, | | PATHOLOGY | | | | excision: - Skin | | | | | | and colonic mucosa | | | | | | associated with | | | | | | granulation tissue | | | | | | - Negative for | | | | | | malignancy Case | | | | | | seen by:Francine | | | | | | Ronn/Student | | | | | | FellowTerbulmaro Duff, | | | | | | M.Jass, | | | | | | Ph.D./PathologistT:10/31/ | | | | | | Clinical | | | | | | History:The patient is a | | | | | | 66-year-old male with | | | | | | malignant neoplasia of | | | | | | rectum. Gross | | | | | | Description:Received is | | | | | | 1 specimen fresh in a | | | | | | container labeled with | | | | | | the patient | | | | | | name(initials GH) and | | | | | | "ileostomy." Received | | | | | | is a circular portion of | | | | | | bowelwith one end | | | | | | stapled and the other | | | | | | end is tied off with a | | | | | | blue suture. Thetied | | | | | | off end contains a dusky | | | | | | red-cabezas, bulging stoma | | | | | | measuring 2.5 x 2.5 x1.5 | | | | | | cm. On the bulging | | | | | | surface is a 1.5 x 0.7 x | | | | | | 0.7-cm, | | | | | | moss-black,papilliferous | | | | | | lesion. The bowel is | | | | | | opened laterally and | | | | | | reveals cabezas-pink,normal | | | | | | appearing mucosal folds. | | | | | | Document Review Attorney | | | | | | sections are submitted. | | | | | | Cassette Index:A1, | | | | | | stoma lesionA2, | | | | | | volunteer patient representative | | | | | | bowelAMJ:tp My | | | | | | [...] Diagnostician: | | | | | | Keven Duff M.D., | | | | | | Ph.DPathologistElectroni | | | | | | marco Signed 11/02/2011 | | | | | | 10:57AM | | | | + + + + + + + + | Specimen | + + | | + + + + + + + | Performing | Address | City/State/Zipcode | Phone Number | | Organization | | | | + + + + + | [facility] | [address] | [place] [address] | | | PATHOLOGY | [address] | | | + + + + + documented in this encounter Visit Diagnoses + + | Diagnosis | + + | Rectal cancer (HCC) Malignant neoplasm of rectum | + + documented in this encounter
--- OUTSIDE RECORDS SUMMARY | ~2019-11-22 | XMS | Encounter Summary ---
Demographics + + + | Address | [address] | | | [place] [address] | + + + | Home Phone | | + + + | Preferred Language | Unknown | + + + | Marital Status | | + + + | Jehovah'S Witness Affiliation | 1077 | + + + | Race | Unknown | + + + | Ethnic Group | Unknown | + + + Author + + + | Author | [facility] | | | and [place] | + + + | Organization | [facility] | | [...] Providers + +------+ + | Care Quality Improvement Specialist Name | Role | Phone | [...] + + | 05/05/ | Telephone | [facility] | David Brower, | Results, Imaging | | 2018 | | PHYSIATRY [address] | PA-C [address] | (Lumbar MRI ) | | | | [address] | [address] [place] | | | | | [place] | [place] [address] | | | | | [address] | [phone] | | | | | [phone] | | | +--------+ + + + [...]
--- OUTSIDE RECORDS SUMMARY | ~2019-11-22 | XMS | Encounter Summary ---
Demographics + + + | Address | [address] | | | [place] [address] | + + + | Home Phone [...] + | Ricarda Johnson | ECON | [address] | | | | | [place] | | | | | [address] | | + + + + + Care Team Providers + +------+ + | Care Barber Name | Role | Phone | + +------+ + | Hay Greco MD | PCP | | + +------+ + Encounter Details +--------+ + + + + | Date | Type | Department | Care Team | Description | +--------+ + + + + | 08/02/ | Abstract | Dig[facility]ive [facility] | Edgar Hampton, | | | 2011 | | [place] [facility] [address] | [address] | | | | | [address] | [address] | | | | | Mailcode: Center | [place], [place] | | | | | for Health and | [address] | | | | | [facility] 2 | [phone] | | | | | [place], [place] | | | | | | [address] | | | | | | [phone] | | | +--------+ + + + [...]
--- OUTSIDE RECORDS SUMMARY | ~2019-11-22 | XMS | Encounter Summary ---
Demographics + + + | Address | [address] | | | [place] [address] | + + + | Home Phone [...] Team Providers + +------+ + | Care Die Repair Machinist Name | Role | Phone | + [...] + + | 07/30/ | Office | [facility] | Gucci Javierlas | Facet arthropathy, | | 2015 | Visit | NEUROSURGERY [address] | [address] | lumbar (Primary Dx); | | | | [address] | [address] | DDD (degenerative | | | | [place], [place] | [place] [address] | disc disease), | | | | [address] | [phone] | lumbar; S/P lumbar | | | | [phone] | | fusion | +--------+---------+ + + [...] t from the original. TRENT Vicente [address] [facility], [address] [place] [address] FAX: NEUROSURGERY FOLLOW-UP CHIEF COMPLAINT: Chief Complaint [...] Laterality: N/A; Surgeon: Kemal lozano MD; Location: [facility] MAIN OR CURRENT MEDICATIONS: Current Outpatient Prescriptions Medication Sig Dispense Refill acetaminophen (TYLENOL) 325 mg tablet Take 325 mg by mouth Daily. Prn pain Eclkomldf-Gbaomksauca-Zjb D (GLUCOSAMINE COMPLEX PO) Take 2 tablets [...] months for re-evaluation. ELECTRONICALLY SIGNED BY: TRENT iVcente, 07/30/2014 12:44 documented in this encounter Plan [...] ST. | [address] | [place], [place] | [phone] | | [facility] | | [address] | | | - IMAGING | | [...]
--- OUTSIDE RECORDS SUMMARY | ~2019-11-22 | XMS | Encounter Summary ---
Demographics + + + | Address | [address] | | | [place] [address] | + + + | Home Phone [...] Team Providers + +------+ + | Care Fisheries Inspector Name | Role | Phone | + +------+ + | Hay Greco MD | PCP | | + +------+ + Encounter Details +--------+ + + + + | Date | Type | Department | Care Team | Description | +--------+ + + + + | 11/18/ | Hospital | [facility] | [place] | S/P lumbar fusion | | 2013 | Encounter | MED CTR XRAY [address] | [address] | | | | | [address] | AV | | | | | [place] [address] | [place] [address] | | | | | [phone] | [phone] | | | | | | | [...] + | MISCELLANEOUS LAB | | | [phone] | + +---------+ + + | MISCELANIOUS LAB | | | [phone] | + +---------+ + + documented in this encounter Visit Diagnoses + + | Diagnosis | + + | S/P lumbar fusion Arthrodesis status | + + documented in this encounter"
--- OUTSIDE RECORDS SUMMARY | ~2019-11-22 | XMS | Encounter Summary ---
Demographics + + + | Address | [address] | | | [place] [address] | + + + | Home Phone | | + + + | Preferred Language | Unknown | + + + | Marital Status | | + + + | Jain Affiliation | PRE | + + + [...] + | Ricarda Johnson | ECON | [address] | | | | | [place] | | | | | [address] | | + + + + + Care Team Providers + +------+ + | Care Lab Aide Name | Role | Phone | [...] | [facility] | [address] | | | | | [address] | [address] | | | | | Loop Physician's | [place], [place] | | | | | Brian, [facility] floor | [address] | | | | | [place], [place] | [phone] | | | | | [address] | | | | | | [phone] | | | +--------+ + + + [...]
--- OUTSIDE RECORDS SUMMARY | ~2019-11-22 | XMS | Encounter Summary ---
Demographics + + + | Address | [address] | | | [place] [address] | + + + | Home Phone [...] + | Ricarda Johnson | ECON | [address] | | | | | [place] | | | | | [address] | | + + + + + Care Team Providers + +------+ + | Care Back Digger Operator Name | Role | Phone | + +------+ + | Hay Greco MD | PCP | | + +------+ + Encounter Details +--------+ + + + + | Date | Type | Department | Care Team | Description | +--------+ + + + + | 12/03/ | Hospital | Dermatopathology | | | | 2013 | Encounter | [address] | | | | | | Mailcode: CH16D | | | | | | [facility] | | | | | | and Healing, | | | | | | Building , | | | | | | Floor [place], [place] | | | | | | [address] | | | | | | [phone] | | | +--------+ + + + [...] + + + +---------+ + + | [place]-3 Fatty | Take by mouth. | | [...] | | | | | cabezas-brown skin, [id number] | | | | | | and [id number]. The | | | | | | [...] [facility] | [address]any [address] | [place] [address] | | | DERMATOPATHOLOGY | [address] | | | + + + + + documented in this encounter Visit Diagnoses Not on filedocumented in this encounter
--- OUTSIDE RECORDS SUMMARY | ~2019-11-22 | XMS | Encounter Summary ---
Demographics + + + | Address | [address] | | | [place] [address] | + + + | Home Phone | | + + + | Preferred Language | Unknown | + + + | Marital Status | | + + + | Hoahaoism Affiliation | 1077 | + + + | Race | Unknown | + + + | Ethnic Group | Unknown | + + + Author + + + | Author | [facility] | | | and [place] | + + + | Organization | [facility] | | | [...] + +------+ + | Care Senior Data Integration Developer Name | Role | Phone | + +------+ + | Aldo Frank DO | PCP | | + +------+ + Encounter Details +--------+ + + + + | Date | Type | Department | Care Team | Description | +--------+ + + + + | 09/22/ | Orders Only | [facility] | Barbara Marie, | | | 2018 | | [facility] XRAY [address] | MD [address] | | | | | [address] | [place] [address] | | | | | [place], [place] | [phone] | | | | | [address] | | | | | | [phone] | | | +--------+ + + + [...] +--------+ + + + | XR SHOULDER LEFT 2 + | Routin | 09/22/2018 | | Results for this | | VW | e | 1:15 PM | | procedure are in the | | | | PDT | | results section. | + +--------+ + + + documented in this encounter Results XR Shoulder Left 2 + Vw (09/22/2018 1:15 PM PDT) + + | Specimen | + + | | + + + + + | Narrative | Performed At | + + + | History: This is a 73 y.o. year old male. Diagnosis for Order | | | ICD-10-CM 1. Rotator cuff arthropathy, left M12.812 X-ray shoulder | | | left complete 2+v . Technique: 3 views left shoulder. AP, | | | annette Marieular Davion. . Comparison Exam: 06/09/2018, [place] | | | orthopedic. Findings: The patient is status post left reverse | | | total shoulder arthroplasty. The prosthesis is in good position, | | | without evidence of failure or loosening. There is no evidence of | | | fracture dislocation bony mineralization is normal. Visualized lung | | | gill are clear.. Impression: Status post left reverse total | | | shoulder arthroplasty, with good radiographic outcome.. | | | Electronically signed by: BARBARA MARIE MD 09/22/2018 2:24 PM | | | BARBARA MARIE MD has created this entry using Offermatic | | | Recognition software and [employer] macros. The entry has been | | | reviewed and there may still exist sound alike word errors. | | + + + + + | Procedure Note | + + | Reji, Rad Conversion - 03/05/2019 1:18 PM PDT History: This is a 73 y.o. year old | | male. Diagnosis for Order ICD-10-CM1. Rotator cuff arthropathy, left M12.812 X-ray | | shoulder left complete 2+v . Technique: 3 views left shoulder. AP, Grashey, scapular Y. | | . Comparison Exam: 06/09/2018, [facility]. Findings: The patient is status | | post left reverse total shoulderarthroplasty. The prosthesis is in good position, | | without evidence offailure or loosening. There is no evidence of fracture dislocation | | bonymineralization is normal. Visualized lung gill are clear.. Impression: Status post | | left reverse total shoulder arthroplasty, withgood radiographic outcome.. | | Electronically signed by: BARBARA MARIE MD 09/22/2018 2:24 PM BARBARA MARIE MD has | | created this entry using OffermaticRecognition software and EPIC | | macros. The entry has been reviewed andthere may still exist sound alike word | | errors. | |failure or loosening. There is no evidence of fracture dislocation bony | |mineralization is normal. Visualized lung gill are clear.. | | | |Impression: Status post left reverse total shoulder arthroplasty, with | |good radiographic outcome.. | | | | | |Electronically signed by: BARBARA MARIE MD 09/22/2018 2:24 PM | | | | | |BARBARA MARIE MD has created this entry using [employer] Voice | |Recognition software and EPIC macros. The entry has been reviewed and | |there may still exist sound alike word errors. | | | + + documented in this encounter Visit Diagnoses Not on filedocumented in this encounter"
--- OUTSIDE RECORDS SUMMARY | ~2019-11-22 | XMS | Encounter Summary ---
Demographics + + + | Address | [address] | | | [place] [address] | + + + | Home Phone [...] Team Providers + +------+ + | Care Alcohol And Drug Counselor Name | Role | Phone | + +------+ + | Aldo Frank DO | PCP | | + +------+ + Reason for Visit + + + | Reason | Comments | + + + | Follow-up | H&P for SCS trial | + + + Follow Up (Routine) [...] | | | | | lumbar | [place], | [address] Phone: | | | | | region | [place] | [phone] | | | | | Facet | [address] | Fax: | | | | | arthropathy, | Phone: | [phone] | | | | | lumbar | [phone] | | | | | | Lumbar | Fax: | | | | | | radicular | [phone] | | | | | | pain | | | + + + + + + + Encounter Details +--------+---------+ + + + | Date | Type | Department | Care Team | Description | +--------+---------+ + + + | 03/25/ | Office | [facility] [place] | Mariana Escamilla | Lumbar radiculopathy | | 2019 | Visit | PHYSIATRY [address] | [address] | (Primary Dx); S/P | | | | [address] | [address] | lumbar fusion; | | | | [place] | [address] [place] [address] | Spinal stenosis of | | | | [address] | [address] | lumbar region | | | | [phone] | | without neurogenic | | | | | | [...] + + + | Blood Pressure | 156/74 | 03/25/2019 10:22 AM | | | | | PDT | | + + + + + | Pulse | 80 | 03/25/2019 10:22 AM | | | | | PDT | | + + + + + | Temperature | - | - | | + + + + + | Respiratory Rate | 16 | 03/25/2019 10:22 AM | | | | | PDT | | + + + + + | Oxygen Saturation | - | - | | + + + + + | Inhaled Oxygen | - | - | | | Concentration | | | | + + + + + | Weight | 83.9 kg (185 lb) | 03/25/2019 10:22 AM | | | | | PDT | | + + + + + | Height | 175.3 cm (5' 9") | 03/25/2019 10:22 AM | | | | | PDT | | + + + + + | Body Mass Index | 27.32 | 03/25/2019 10:22 AM | | | | | PDT [...] Instructions Patient Instructions Mariana Escamilla PA-C - 03/25/2019 10:30 AM PDT1. Please plan to ask your [employer] customer engagement representative your questions on restrictions so that you understand them we ll. documented in this encounter Progress Notes Mariana Escamilla PA-C - 03/25/2019 10:30 AM PDTFormatting of this note might be diffe rent from the original. . Ayaka Escamilla PA-C [address] [facility], [address] [place] [address] FAX: CHIEF COMPLAINT: Chief Complaint Patient presents with Follow-up H&P for SCS trial HISTORY OF PRESENT ILLNESS: Cosmo Johnson is a 73 y.o. male being seen today for spin al cord stimulator (SCS) H&P for the complaint of low back pain with radiation into legs and diagnosis of failed back syndrome. The patient as a great candidate for a trial of the spin al cord stimulator. Patient is here today to go over procedure and to have any questions reg arding procedure/recovery answered. Patient's pain currently is rated as moderate to severe. The symptoms are daily and consta nt. Patient reports pain radiation down legs on occasion. The patient does not report leg numbness. Patient does report weakness. The patient does not report any change in bowel or bladder function or saddle anesthesia re cently. Cosmo Johnson reports symptoms are constant and without relief. Patient has tried PT, Massage and Muscle relaxers and injections with little relief. PAST MEDICAL HISTORY: Past Medical History: Diagnosis [...] Laterality: N/A; Surgeon: Kemal Damian MD; Location: [facility] MAIN OR LUMBAR LAMINECTOMY Dr. Tavarez LUMBAR SPINE SURGERY N/A 06/19/2017 Procedure: L1-2 LAIF w/ Lateral Plating; Surgeon: Kemal Damian MD; Location: [facility] MAIN OR SMALL INTESTINE SURGERY 2011 Rectal [...] specified in outside medical records SOCIAL HISTORY: The patient reports that he [...] Maternal Grandfather No known problems Paternal Grandfather REVIEW OF SYSTEMS: GENERALLY: No [...] no rheumatoid arthritis. PHYSICAL EXAMINATION: Blood pressure 156/74, pulse 80, resp. rate 16, height 1.753 m (5' 9"), weight 83.9 kg (185 lb). Body mass index is 27.32 kg/m. GENERAL: Cosmo Johnson is in no acute distress with unlabored respirations. The patien sharon does not appear uncomfortable throughout the exam today. HEENT: HEAD/FACE: EYES: EARS: NASOPHARNYX: OROPHARNYX: Normocephalic and atraumatic. There are no areas of recent trauma. Normal sclerae without icterus. No drainage or tenderness. Clear without drainage. Clear without erythema. NECK (ANTERIOR): Supple and without palpable masses. CHEST: The patient is in no acute respiratory distress with unlabored respirations. HEART: There is not lower extremity edema. Hear regular rate and rhythm. ABDOMEN: Soft, non-tender, non-distended, and without palpable masses. NEUROLOGIC: The patient is awake, alert, and oriented to time, place, person. He follows simple and complex commands. His speech is fluent. He comprehends speech well. He has no apparent deficits with short or termite exterminator helper memory. Cranial nerves 2-12 appear grossly intact. Sensory exam does not show diminished sensation to light touch in the lower extremities. MUSCULOSKELETAL Straight leg raise and slump-sit are negative. Jonathan's maneuver and impingement testing were negative for any groin pain. There was no tenderness to palpation over the greater tr ochanters or sacral sulci. The patient localized the majority of the pain to the lower lumb ar region. Lumbar facet loading was negative. Strength testing showed 5/5 strength through out the lower extremities except left hip flexor at 4/5. The patient was able to heel and t oe walk without difficulty. There was no redness, effusion, warmth or joint line tenderness in the knees or ankles. REFLEXES: (2 OR 2+ IS NORMAL) REFLEX: RIGHT LEFT PATELLAR 1+ 1+ ACHILLES trace trace EXTREMITIES: No cyanosis, clubbing, or edema. Distal pulses are palpable. RADIOGRAPHIC REVIEW: The patient's imaging was reviewed [...] the left. ASSESSMENT: Encounter Diagnoses Name Primary? Lumbar radiculopathy Yes S/P lumbar fusion Spinal stenosis of lumbar region without neurogenic claudication PLAN: Cosmo Pace Alex presented today, and it was a pleasure seeing this patient and assessing his problems. 1) Today we discussed the patient's differential diagnosis with the likely primary issue be ing FAILED BACK SYNDROME. Patient's description of symptoms, physical exam, and imaging sug gest this diagnosis at this time. 2) I counseled patient on treatment options which included conservative self management usi ng OTC NSAIDs/Ice and heat packs, physical therapy, prescription medications, epidural stero id injection, as well as possible surgical intervention. 3) Imaging: imaging as above 4) We decided it would be best to proceed with SCS trial. 5) Patient will follow up with our office in 1 WEEK for removal of SCS. I spent 20 minutes in visit with Cosmo Johnson today with the majority of time spent co unselling the patient on his diagnosis, options for his care, and coordinating his care. ELECTRONICALLY SIGNED BY: Ayaka Escamilla PA-C, 03/25/2019 10:52 documented in this encounter Plan of Treatment Not on filedocumented as of this encounter Visit Diagnoses + + | Diagnosis | + + | Lumbar radiculopathy - Primary Thoracic or lumbosacral neuritis or radiculitis, | | unspecified | + + | S/P lumbar fusion Arthrodesis status | + + | Spinal stenosis of lumbar region without neurogenic claudication Spinal stenosis, | | lumbar region, without neurogenic claudication | + + documented in this encounter
--- OUTSIDE RECORDS SUMMARY | ~2019-11-22 | XMS | Encounter Summary ---
Demographics + + + | Address | [address] | | | [place] [address] | + + + | Home Phone [...] + | Ricarda Johnson | ECON | [address] | | | | | [place] | | | | | [address] | | + + + + + Care Team Providers + +------+ + | Care Trainer Name | Role | Phone | + +------+ + | Hay Greco MD | PCP | | + +------+ + Encounter Details +--------+ + + + + | Date | Type | Department | Care Team | Description | +--------+ + + + + | 12/23/ | Abstract | Digestive Health | Edgar Hampton, | | | 2012 | | [place] [facility] [address] | [address] | | | | | [address] | [address] | | | | | Mailcode: Center | [place], [place] | | | | | for Health and | [address] | | | | | [facility], [facility] 2 | [phone] | | | | | [place], [place] | | | | | | [address] | | | | | | [phone] | | | +--------+ + + + [...]
--- OUTSIDE RECORDS SUMMARY | ~2019-11-22 | XMS | Encounter Summary ---
Demographics + + + | Address | [address] | | | [place] [address] | + + + | Home Phone | | + + + | Preferred Language | Unknown | + + + | Marital Status | | + + + | Buddhism Affiliation | 1077 | + + + | Race | Unknown | + + + | Ethnic Group | Unknown | + + + Author + + + | Author | [facility] | | | and [place] | + + + | Organization | [facility] | | [...] Team Providers + +------+ + | Care Reimbursement Representative Name | Role | Phone | [...] | [address] | [facility] | | | | [address] | [place] [address] | from 03/27 to 03/25) | | | | [place] | [phone] | | | | | [address] | | | | | | [phone] | | | +--------+ + + + [...]
--- OUTSIDE RECORDS SUMMARY | ~2019-11-22 | XMS | Encounter Summary ---
Demographics + + + | Address | [address] | | | [place] [address] | + + + | Home Phone [...] + +------+ + | Care Member Of The Legislative Assembly Name | Role | Phone | + +------+ + | Hay Greco MD | PCP | | + +------+ + Encounter Details +--------+ + + + + | Date | Type | Department | Care Team | Description | +--------+ + + + + | 12/14/ | [facility] | [facility] | Kirk Javier | Facet arthropathy, | | 2015 | Encounter | MED CTR XRAY [address] | [address] | lumbar; DDD | | | | [place] | [address] | (degenerative disc | | | | [place] [address] | [place] [address] | disease), lumbar; | | | | [phone] | [phone] | S/P lumbar fusion | | | [...] priors. FINDINGS: Mild levoscoliosis of the | [facility] | | lumbar spine is present. Again [...] + | Performing | Address | City[facility] | Phone Number | | Organization | | | | + + + + + | [facility] | [address] | [place], [place] | [phone] | | [facility] | | [address] | | | - IMAGING | | [...]
--- OUTSIDE RECORDS SUMMARY | ~2019-11-22 | XMS | Encounter Summary ---
Demographics + + + | Address | [address] | | | [place] [address] | + + + | Home Phone | | + + + | Preferred Language | Unknown | + + + | Marital Status | | + + + | Mu-Ism Affiliation | 1077 | + + + | Race | Unknown | + + + | Ethnic Group | Unknown | + + + Author + + + | Author | [facility] | | | and [place] | + + + | Organization | [facility] | | [...] Team Providers + +------+ + | Care Reconstructive Dentist Name | Role | Phone | + [...] | | | | | | | [place] | | | | | | | ARTHRODESIS | | | | | | | POSTERIOR/PO | | | | | | | STEROLATERAL | | | | | | | LUMBAR [place] | | | | | | | LUMBAR SPINE | | | | | | | | | | | | | | FUSION,ANTER | | | | | | | APPRCH [place] | | | | | | | [...] + + + + | 06/19/ | Anesthesia | [facility] | Chele Romero | | | 2016 | Event | [facility] | MD Maci [address] | | | | | [address] | [address] | | | | | [place] | [place] [address] | | | | | [address] | [phone] | | | | | [phone] | | | +--------+ + + + + Anesthesia Record + + + + + | Procedure Name | Responsible | Anesthesia Start | Anesthesia Stop Time | | | Anesthesiologist | Time | | + + + + + | L1-2 LAIF w/ Lateral | Chele Romero, | 06/19/17 1808 | 06/19/17 1950 | | Plating (N/A Spine | MD | | | | Lumbar) | | | | + + + + + +----+---+ + + | Da | T | Event | Comment | | te | i | | | | | m | | | | | e | | | +----+---+ + + | 12 | 1 | | | | /0 | 6 | | | | 6/ | 0 | | | | 20 | 1 | | | | 17 | | | | +----+---+ + + | | 1 | An Checkout | Pre-use anesthesia machine/equipment checkout. | | | 8 | | | | | 0 | | | | | 4 | | | +----+---+ + + | | 1 | An Start | Reassessment prior to anesthesia induction/procedure. | | | 8 | | | | | 0 | | | | | 8 | | | +----+---+ + + | | 1 | Preoxygenat | | | | 8 | ed | | | | 1 | | | | | 5 | | | +----+---+ + + | | 1 | An | | | | 8 | Induction | | | | 1 | | | | | 7 | | | +----+---+ + + | | 1 | An | | | | 8 | Intubation | | | | 1 | | | | | 9 | | | +----+---+ + + | | 1 | AN Bite | | | | 8 | Block | | | | 2 | | | | | 1 | | | +----+---+ + + | | 1 | Antibiotic | | | | 8 | Given | | | | 2 | | | | | 4 | | | +----+---+ + + | | 1 | Clontarf | | | | 8 | 43-degrees | | | | 3 | | | | | 4 | | | +----+---+ + + | | 1 | Pre-Procedu | | | | 8 | ral Timeout | | | | 3 | Completed | | | | 9 | | | +----+---+ + + | | 1 | First | | | | 8 | Inc/Proc St | | | | 4 | | | | | 1 | | | +----+---+ + + | | 1 | Clontarf off | | | | 9 | | | | | 3 | | | | | 8 | | | +----+---+ + + | | 1 | Breathing | | | | 9 | Spontaneous | | | | 3 | ly | | | | 8 | | | +----+---+ + + | | 1 | Oropharynx | | | | 9 | Suctioned | | | | 3 | | | | | 8 | | | +----+---+ + + | | 1 | Moving | | | | 9 | Purposefull | | | | 3 | y | | | | 9 | | | +----+---+ + + | | 1 | Extubated | | | | 9 | Awake | | | | 4 | | | | | 0 | | | +----+---+ + + | | 1 | an stop | | | | 9 | data | | | | 4 | | | | | 1 | | | +----+---+ + + | | 1 | An Stop | Patient handed off to recovery nurse. | | | 5 | | | | | 0 | | | +----+---+ + + +------+ | Meds | +------+ + + + | Name | Total | + + + | fentaNYL injection (2 mL) | 100 mcg | + + + | lidocaine 2% (PF) | 60 mg | + + + | lidocaine 2% | 120 mg | + + + | propofol (DIPRIVAN) injection | 120 mg | | (bolus) (20 mL) | | + + + | ketamine | 50 mg | + + + | succinylcholine | 120 mg | + + + | dexamethasone | 10 mg | + + + | ondansetron | 4 mg | + + + | magnesium sulfate | 2 g | + + + | dexmedetomidine (Bolus) | 50 mcg | + + + | ceFAZolin (ANCEF, KEFZOL) 100 | 2 g | | mg/mL IV syringe 2 g | | + + + | lactated ringers (LR) infusion | 2,000 mL | + + + + + | Name | + + | N2O Flow Rate (L/Min) | + + | O2 Flow Rate (L/Min) | + + | Insp O2 | + + | Exp SEV | + + | Exp KATHY | + + | Air Flow Rate (L/Min) | + + + + | No blood administrations on file. | + + +--------+ + + + | Type | Details | Placement | Removal | +--------+ + + + | Periph | 06/19/17; 1411; Right; Hand; | 06/19/17 1411 by | 06/21/17 1245 by | | eral | [id number] catheter system; | Viviana Hernandez RN | Gali Rivera RN | | IV | 20 gauge; distraction, | | | | | intradermal injection; no longer | | | | | indicated; short term use; | | | | | 06/21/17; 1245 | | | +--------+ + + + | Airway | Placement Date: 06/19/17; | 06/19/171818 by Tor | 06/19/171939 by Tor | | | Placement Time: 1818 (created via | Maci Romero MD | Maci Romero MD | | | procedure documentation); Mask | | | | | Ventilation: EZ; Airway Grade: | | | | | 2a; Successful Technique: video | | | | | scope; Laryngoscope Blade Size: | | | | | 3; Attempts: 1; Airway Type: | | | | | endotracheal; Size: 7.5; Airway | | | | | Tube Secured At: 23; Trauma: | | | | | none; Other Equipment: stylette; | | | | | Placement Check: exhaled CO2 | | | | | detection device; Removal Date: | | | | | 06/19/17; Removal Time: 1939 | | | +--------+ + + + | Read | 06/19/17; 1849; Right; flank; | 06/19/171848 by | 06/21/17 1245 by | | only - | healing within expectations; | Misty Obrien, BRUNO | Gali Rivera RN | | | 06/21/17; 1245 | | | | Incisi | | | | [...] | + +--------+ + + + | ANE AIRWAY NOTE | Routin | 06/19/2017 | | Results for this | | | e | 6:45 PM | | procedure are in the | | | | PST | | results section. | + +--------+ + + + documented in this encounter Results Anesthesia Airway Note (06/19/2017 6:45 PM PST) + + + | Narrative | Performed At | + + + | Chele Romero MD 06/19/2017 18:45 Anesthesia Airway | | | Placement 06/19/2017 18:19 Preprocedure check: patient identified, | | | oxygen, airway assessed, patient reassessment prior to induction, | | | airway equipment checked and suction Rapid Sequence Induction: no | | | Mask ventilation: easy Successful technique: videoscope | | | Laryngoscope blade size: 3 Airway grade: 2a (Partial view of | | | glottis) Other equipment: stylette Attempts: 1 Airway type: | | | endotracheal Size: 7.5 Cuffed: cuffed Route, reference point: right | | | side of mouth Tube depth: 23 cm Tube secured with: adhesive tape | | | Trauma: none Tube placement verification: carbon dioxide detection | | | Performing provider: CHELE ROMERO Electronically Signed | | | by: Chele Romero MD ESig | | | date/time: 06/19/2017 18:45 | | + + + + + | Procedure Note | + + | Chele Romero MD - 06/19/2017 6:45 PM PST Anesthesia Airway | | Zygjijvpm69/6/2017 18:19Preprocedure check: patient identified, oxygen, airway assessed, | | patient reassessment prior to induction, airway equipment checked and suctionRapid | | Sequence Induction: noMask ventilation: easySuccessful technique: | | videoscopeLaryngoscope blade size: 3 Airway grade: 2a (Partial view of glottis)Other | | equipment: styletteAttempts: 1Airway type: endotrachealSize: 7.5Cuffed: cuffedRoute, | | reference point: right side of mouthTube depth: 23 cmTube secured with: adhesive | | tapeTrauma: noneTube placement verification: carbon dioxide detectionPerforming | | provider: CHELE ROMEROectronically Signed by: Chele Romero MD | | ESig date/time: 06/19/2017 18:45 | |Attempts: 1 | |Airway type: endotracheal | |Size: 7.5 | |Cuffed: cuffed | |Route, reference point: right side of mouth | |Tube depth: 23 cm | |Tube secured with: adhesive tape | |Trauma: none | |Tube placement verification: carbon dioxide detection | |Performing provider: CHELE ROMERO | | | | | |Electronically Signed by: Chele Romero MD ESig date/time: 06/19/2017 18:45 | | | + + documented in this encounter Visit Diagnoses Not on filedocumented in this encounter Administered Medications + +--------+ +------+------+------+ | Medication Order | MAR | Action | Dose | Rate | Site | | | Action | Date | | | | + +--------+ +------+------+------+ | ceFAZolin (ANCEF, KEFZOL) 100 | Given | 06/19/20 | 2 g | | | | mg/mL IV syringe 2 g 2 g, | | 17 6:24 | | | | | Intravenous, Administer over 30 | | PM PST | | | | | Minutes, Prior to Incision, | | | | | | | Starting Sat06/19/17 at 0546, For | | | | | | | 1 dose, Administer within 1 hour | | | | | | | of surgical incision., Pre-op, | | | | | | | Indications: Surgical Prophylaxis | | | | | | + +--------+ +------+------+------+ +---+---+ | | | +---+---+ + +-------+ +-------+---+---+ | dexamethasone (DECADRON) 10 | Given | 06/19/20 | 10 mg | | | | mg/mL injection Intravenous, | | 17 6:30 | | | | | PRN, Starting Sat06/19/17 at | | PM PST | | | | | 1830, Anesthesia Intra-op | | | | | | + +-------+ +-------+---+---+ +---+---+ | | | +---+---+ + +-------+ +--------+---+---+ | dexmedetomidine (PRECEDEX) in | Given | 06/19/20 | 50 mcg | | | | sodium chloride bolus infusion | | 17 6:30 | | | | | Intravenous, PRN, Starting Wed | | PM PST | | | | | 06/19/17 at 1830, Anesthesia | | | | | | | Intra-op | | | | | | + +-------+ +--------+---+---+ +---+---+ | | | +---+---+ + +-------+ +---------+---+---+ | fentaNYL (PF) injection PRN, | Given | 06/19/20 | 100 mcg | | | | Pain, Starting 06/19/17 at | | 17 6:17 | | | | | 1817, Anesthesia Intra-op | | PM PST | | | | + +-------+ +---------+---+---+ +---+---+ | | | +---+---+ + +-------+ +-------+---+---+ | ketamine 50 mg/mL injection | Given | 06/19/20 | 50 mg | | | | PRN, Starting Sat06/19/17 at | | 17 6:30 | | | | | 1830, Anesthesia Intra-op | | PM PST | | | | + +-------+ +-------+---+---+ +---+---+ | | | +---+---+ + +---------+ +---+ +---+ | lactated ringers (LR) infusion | New Bag | 06/20/20 | | 50 mL/hr | | | at 100 mL/hr, Intravenous, | | 17 8:44 | | | | | CONTINUOUS, Starting Sat06/19/17 | | AM PST | | | [...] lidocaine (PF) 2% injection | Given | 06/19/20 | 60 mg | | | | PRN, Starting Sat06/19/17 at | | 17 6:17 | | | | | 1817, Anesthesia Intra-op | | PM PST | | | | + +-------+ +-------+---+---+ +---+---+ | | | +---+---+ + +---------+ +-------+---------+---+ | lidocaine (PF) 2% injection | New Bag | 06/19/20 | 160 | 8 mL/hr | | | Intravenous, CONTINUOUS PRN, | | 17 6:30 | mg/hr | | | | Starting Sat06/19/17 at 1830, | | PM PST | | | | | Anesthesia Intra-op | | | | | | + +---------+ +-------+---------+---+ +---+---+ | | | +---+---+ + +-------+ +-----+---+---+ | magnesium sulfate 500 mg/mL | Given | 06/19/20 | 2 g | | | | injection Intravenous, PRN, | | 17 6:30 | | | | | Starting 06/19/17 at 1830, | | PM PST | | | | | Anesthesia Intra-op | | | | | | + +-------+ +-----+---+---+ +---+---+ | | | +---+---+ + +-------+ +------+---+---+ | ondansetron (ZOFRAN) injection | Given | 06/19/20 | 4 mg | | | | PRN, Nausea, Vomiting, Starting | | 17 6:30 | | | | | 06/19/17 at 1830, Anesthesia | | PM PST | | | | | Intra-op | | | | | | + +-------+ +------+---+---+ +---+---+ | | | +---+---+ + +-------+ +--------+---+---+ | propofol (DIPRIVAN) injection | Given | 06/19/20 | 120 mg | | | | PRN, Starting Sat06/19/17 at | | 17 6:17 | | | | | 1817, Anesthesia Intra-op | | PM PST | | | | + +-------+ +--------+---+---+ +---+---+ | | | +---+---+ + +-------+ +--------+---+---+ | succinylcholine (ANECTINE) | Given | 06/19/20 | 120 mg | | | | injection Intravenous, PRN, | | 17 6:17 | | | | | Starting Sat06/19/17 at 1817, | | PM PST | | | | | Anesthesia Intra-op | | | | | | + +-------+ +--------+---+---+ +---+---+ | | | +---+---+ documented in this encounter"
--- OUTSIDE RECORDS SUMMARY | ~2019-11-22 | XMS | Encounter Summary ---
Demographics + + + | Address | [address] | | | [place] [address] | + + + | Home Phone | | + + + | Preferred Language | Unknown | + + + | Marital Status | | + + + | Judaism Affiliation | 1077 | + + + | Race | Unknown | + + + | Ethnic Group | Unknown | + + + Author + + + | Author | [facility] | | | and [place] | + + + | Organization | [facility] | | | [...] Team Providers + +------+ + | Care Dough Sheeter Name | Role | Phone | + +------+ + | Aldo Frank DO | PCP | | + +------+ + Reason for Visit + + + | Reason | Comments | + + + | Results, Imaging | | + + + Encounter Details +--------+ + + + + | Date | Type | Department | Care Team | Description | +--------+ + + + + | 05/06/ | Telephone | [facility] | Pj Riggs | Results, Imaging | | 2019 | | PHYSIATRY [address] | T, MD [address] | | | | | [address] | [place] | | | | | [place], [place] | [address] | | | | | [address] | | | | | | [phone] | | | +--------+ + + + [...]
--- OUTSIDE RECORDS SUMMARY | ~2019-11-22 | XMS | Encounter Summary ---
Demographics + + + | Address | [address] | | | [place] [address] | + + + | Home Phone | | + + + | Preferred Language | Unknown | + + + | Marital Status | | + + + | Yazidism Affiliation | 1077 | + + + [...] Team Providers + +------+ + | Care Server Developer Name | Role | Phone | [...] | Lumbar | Oneil, | [address] | | | | | radiculopath | Pj T, MD | [place], | | | | | y | [address] | [place] | | | | | Procedures | [place] | [address] | | | | | NE INJECT | [place] | Phone: | | | | | ANES/STEROID | [address] | [phone] | | | | | FORAMEN | Phone: | Fax: | | | | | LUMBAR/SACRA | [phone] | [phone] | | | | | L W IMG | Fax: | | | | | | GUIDE ,1 | [phone] | | | | | | LEVEL NE | | | | | | | TRIAMCINOLON | | | | | | | E ACET INJ | | | | | | | NOS, 10 MG | | | | | | | Appt | | | | | | | 04/02-Bilat | | | | | | | L2-3 TFESI | | | +--------+--------+ + + + + Encounter Details +--------+ + + + + | Date | Type | Department | Care Team | Description | +--------+ + + + + | 04/03/ | Hospital | [facility] | Lilli, | Lumbar radicular | | 2017 | Encounter | MED CTR XRAY [address] | JUNI Gilman [address] | pain; | | | | [place] | [address] | Spondylolisthesis of | | | | [place] [address] | [place] [address] | lumbar region; DDD | | | | [phone] | [phone] | (degenerative disc | | | | | | disease), lumbar; | | | | | Drug Enforcement [employer] Agent[place] | Lumbar spinal | | | | | [place] | stenosis - above | | | | | | fusion L1/L2 | +--------+ + + + + Social [...] +---------+ + + | Blood Pressure | 155/75 | 04/03/2017 11:29 AM | | | | | PDT | | + +---------+ + + | Pulse | - | - | | + [...] | FL EPIDURAL STEROID | Routin | 04/03/2017 | Lumbar radicular | Results for this | | INJECTION LUMBAR | e | 11:08 AM | pain | procedure are in the | | TRANSFORAMINAL | | PDT | Spondylolisthesis of | results section. | | | | | lumbar region DDD | | | | | | (degenerative disc | | | | | | disease), lumbar | | | | | | Lumbar spinal | | | | | | stenosis - above | | | | | | fusion L1/L2 | | + +--------+ + + + documented in this encounter Results FL BERNIE Lumbar Transforaminal (04/03/2017 11:08 AM PDT) + + | Specimen | + + | | + + + + ---+ | Narrative | Performed At | + + ---+ | 04/03/2017 | [facility] | | Bilateral Transforaminal Epidural Steroid Injections Diagnosis: Lumbar | [facility] | | radiculopathy ICD-10 Code M54.16 Cosmo Johnson presents to the | [facility] | | fluoroscopy suite for fluoroscopically-guided bilateral [...] [address] | [place] | [phone] | | [facility] | | [address] | | | - IMAGING | | | | + + + + + documented in this encounter Visit Diagnoses + + | Diagnosis | + + | Lumbar radicular pain Thoracic or lumbosacral neuritis or radiculitis, unspecified | + + | Spondylolisthesis of [...] | | | + +--------+ +-------+------+------+ | dexamethasone (PF) 10 mg/mL | Given | 04/03/20 | 20 mg | | | | injection 20 mg 20 mg, Other, | | 17 11:20 | | | | | ONCE, 04/03/17 at 1115, For 1 | | AM PDT | | | | | dose | | | | | | + +--------+ +-------+------+------+ +---+---+ | | | +---+---+ + +-------+ +-------+---+---+ | iohexol (OMNIPAQUE 300) 300 | Given | 04/03/20 | 4 mLs | | | | mg/mL injection 4 mL 4 mL, | | 17 11:18 | | | | | Other, ONCE, 04/03/17 at 1115, | | AM PDT | | | | | For 1 dose | | | | | | + +-------+ +-------+---+---+ +---+---+ | | | +---+---+ + +-------+ +-------+---+---+ | lidocaine (PF) 1% injection 2 | Given | 04/03/20 | 2 mLs | | | | mL 2 mL, Other, ONCE, Sat | | 17 11:20 | | | | | 04/03/17 at 1115, For 1 dose | | AM PDT | | | | + +-------+ +-------+---+---+ +---+---+ | | | +---+---+ + +-------+ +--------+---+---+ | lidocaine buffered 1% injection | Given | 04/03/20 | 10 mLs | | | | 10 mL 10 mL, Other, ONCE, Wed | | 17 11:16 | | | | | 04/03/17 at 1115, For 1 dose | | AM PDT | | | | + +-------+ +--------+---+---+ +---+---+ | | | +---+---+ documented in this encounter"
--- OUTSIDE RECORDS SUMMARY | ~2019-11-22 | XMS | Encounter Summary ---
Demographics + + + | Address | [address] | | | [place] [address] | + + + | Home Phone [...] Team Providers + +------+ + | Care Route Agent Name | Role | Phone | + +------+ + | Aldo Frank DO | PCP | | + +------+ + Reason for Visit +---------+ + | Reason | Comments | +---------+ + | Post Op | PO CALL | +---------+ + Encounter Details +--------+ + + + + | Date | Type | Department | Care Team | Description | +--------+ + + + + | 06/19/ | Telephone | [facility] | Geraldo Bass | Post Op (PO CALL) | | 2018 | | [address] | MD Farhat [address] | | | | | [address] | [address] [place] | | | | | [place], [place] | [place] [address] | | | | | [address] | [phone] | | | | | [phone] | | | +--------+ + + + [...]
--- OUTSIDE RECORDS SUMMARY | ~2019-11-22 | XMS | Encounter Summary ---
Demographics + + + | Address | [address] | | | [place] [address] | + + + | Home Phone | | + + + | Preferred Language | Unknown | + + + | Marital Status | | + + + | Bahai Affiliation | 1077 | + + + | Race | Unknown | + + + | Ethnic Group | Unknown | + + + Author + + + | Author | [facility] | | | and [place] | + + + | Organization | [facility] | | [...] Team Providers + +------+ + | Care Paperhanger Assistant Name | Role | Phone | + [...] | | [address] | [place] [address] | | | | | [place], [place] | [phone] | | | | | [address] | | | | | | [phone] | | | +--------+ + + + [...]
--- OUTSIDE RECORDS SUMMARY | ~2019-11-22 | XMS | Encounter Summary ---
Demographics + + + | Address | [address] | | | [place] [address] | + + + | Home Phone | | + + + | Preferred Language | Unknown | + + + | Marital Status | | + + + | Alevism Affiliation | 1077 | + + + | Race | Unknown | + + + | Ethnic Group | Unknown | + + + Author + + + | Author | [facility] | | | and [place] | + + + | Organization | [facility] | | [...] Team Providers + +------+ + | Care Medicaid Specialist Name | Role | Phone | [...] + + | 03/25/ | [facility] | [facility] | Pj Riggs | SCS | | 2019 | | MED CTR IR INTRA OP | MD Lucrecia [address] | | | | | [address] | [place] | | | | | [place] | [address] | | | | | [address] | | | | | | [phone] | | | +--------+---------+ + + + [...] You can't be awakened Date Last Reviewed: 05/01/201619994073-7120 [employer]. [address] [place] [address], [place] [address]. All righ ts reserved. This information is [...] PM | Nev[place] | | | THORACIC ([id number]) | | PDT | | | + [...]
--- OUTSIDE RECORDS SUMMARY | ~2019-11-22 | XMS | Encounter Summary ---
Demographics + + + | Address | [address] | | | [place] [address] | + + + | Home Phone | | + + + | Preferred Language | Unknown | + + + | Marital Status | | + + + | Sabianism Affiliation | 1077 | + + + | Race | Unknown | + + + | Ethnic Group | Unknown | + + + Author + + + | Author | [facility] | | | and [place] | + + + | Organization | [facility] | | | [...] Team Providers + +------+ + | Care Finisher [employer] Name | Role | Phone | + [...] | | [address] | [place] [address] | cholesterol; | | | | [place], [place] | [phone] | Preoperative testing | | | | [address] | | | | | | [phone] | | | +--------+ + + + [...] + | MISCELLANEOUS LAB | | | [phone] | + +---------+ + + | MISCELANIOUS LAB | | | [phone] | + +---------+ + + CBC with [...] + | [facility] | [address] | [place], [place] | [phone] | | [facility] | | [address] | | | - LABORATORY | | | | + + + + + | [facility] | [address] | [place], [place] | | | [facility] | | [address], [facility] | | | - LABORATORY | | [...] 1.43 (H) | 0.60 - 1.30 | [facility] | | | | | mg/dL | [...] mL/min/1.73m2 | [facility] | | | [facility] | RATE,ESTIMATED | | MEDICAL | | | | mL/min/1.91o8Mysr than | | CENTER - | | [...] + | [facility] | [address] | [place] | [phone] | | [facility] | | [address] | | | - LABORATORY | | | | + + + + + | [facility] | [address] | [place], [place] | | | [facility] | | [address] [place] [address] | | | - LABORATORY | | [...]
--- OUTSIDE RECORDS SUMMARY | ~2019-11-22 | XMS | Encounter Summary ---
Demographics + + + | Address | [address] | | | [place] [address] | + + + | Home Phone | | + + + | Preferred Language | Unknown | + + + | Marital Status | | + + + | Religion Affiliation | 1077 | + + + | Race | Unknown | + + + | Ethnic Group | Unknown | + + + Author + + + | Author | [facility] | | | and [place] | + + + | Organization | [facility] | | [...] Team Providers + +------+ + | Care Allergist/Immunologist Name | Role | Phone | + +------+ + | Aldo Frank DO | PCP | | + +------+ + Encounter Details +--------+ + + + + | Date | Type | Department | Care Team | Description | +--------+ + + + + | 03/25/ | Anesthesia | [facility] | Maikel Coats | | | 2019 | Event | MED CTR IR INTRA OP | G, MD [address] | | | | | [address] | [place] | | | | | [place] | [address] | | | | | [address] | | | | | | [phone] | | | +--------+ + + + + Anesthesia Record + + + + + | Procedure Name | Responsible | Anesthesia Start | Anesthesia Stop Time | | | Anesthesiologist | Time | | + + + + + | SCS (N/A ) | | | | + + + + + +----+---+ +---------+ | Da | T | Event | Comment | | te | i | | | | | m | | | | | e | | | +----+---+ +---------+ | 09 | 1 | First | | | /1 | 3 | Inc/Proc St | | | 1/ | 2 | | | | 20 | 0 | | | | 19 | | | | +----+---+ +---------+ +------+ | Meds | +------+ + + + No medications | on file. | + + + + + | No agents on file. | + + + + | No blood administrations on file. | + + + + | No LDAs on file. | + + documented in this encounter Social [...]
--- OUTSIDE RECORDS SUMMARY | ~2019-11-22 | XMS | Encounter Summary ---
Demographics + + + | Address | [address] | | | [place] [address] | + + + | Home Phone [...] Team Providers + +------+ + | Care Lactation Coordinator Name | Role | Phone | + +------+ + | Aldo Frank DO | PCP | | + +------+ + Encounter Details +--------+ + + + + | Date | Type | Department | Care Team | Description | +--------+ + + + + | 03/25/ | Anesthesia | [facility] | Maikel Coats | | | 2019 | Event | MED CTR IR INTRA OP | G, MD [address] | | | | | [address] | [place] | | | | | [place] | [address] | | | | | [address] | | | | | | [phone] | | | +--------+ + + + [...]
--- OUTSIDE RECORDS SUMMARY | ~2019-11-22 | XMS | Encounter Summary ---
Demographics + + + | Address | [address] | | | [place] [address] | + + + | Home Phone | | + + + | Preferred Language | Unknown | + + + | Marital Status | | + + + | Faith Affiliation | 1077 | + + + | Race | Unknown | + + + | Ethnic Group | Unknown | + + + Author + + + | Author | Located Within [facility] | | | and [place] | + + + | Organization | Located Within [facility] | | [...] Team Providers + +------+ + | Care Giver Name | Role | Phone | + [...] | Physical | Diagnoses | Yaya | [facility] | | Services | Medicine and | S/P lumbar | Kirk | Pj Singer MD | | | Required | Rehabilitatio | fusion | JUNI Ibarra | [address] | | | | n | Spondylolist | [address] | 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: | | | | | arthropathy, | [phone] | [phone] | | | | | lumbar | Fax: | | | | | | Lumbar | [phone] | | | | | | radicular [...] + + | 03/25/ | Office | [facility] | Gucci Javierlas | S/P lumbar fusion | | 2018 | Visit | NEUROSURGERY [address] | [address]UN[address] | (Primary Dx); | | | | [address] | [address] | Spondylolisthesis of | | | | [place], [place] | [place] [address] | lumbar region; | | | | [address] | [phone] | Facet arthropathy, | | | | [phone] | | lumbar (HCC); Lumbar | | [...] encounter Patient Instructions Patient Instructions Jesusita Malone, Dope Firer - 03/25/2018 3:30 PM PDTIt was a [...] from the original. Kirk Javier PA-C [address] [facility] [address] [place] [address] FAX: NEUROSURGERY FOLLOW-UP CHIEF COMPLAINT: [...] Portions of this report were transcribed using [employer] voice recognition software. A lthough effort was [...]
--- OUTSIDE RECORDS SUMMARY | ~2019-11-22 | XMS | Encounter Summary ---
Demographics + + + | Address | [address] | | | [place] [address] | + + + | Home Phone [...] + | Author | [facility] | | | and [place] | + + + | Organization | [facility] | | | and [...] Team Providers + +------+ + | Care Social Secretary Name | Role | Phone | + [...] | | [address] | [place] [address] | | | | | [place] | [phone] | | | | | [address] | | | | | | [phone] | | | +--------+ + + + [...]
--- OUTSIDE RECORDS SUMMARY | ~2019-11-22 | XMS | Encounter Summary ---
Demographics + + + | Address | [address] | | | [place] [address] | + + + | Home Phone [...] Team Providers + +------+ + | Care Green Chain Offbearer Name | Role | Phone | + [...] + + | 06/19/ | Hospital | [facility] | Kemal Damian MD | | | 2017 | Encounter | MED CTR XRAY [address] | [address] | | | | | [place] | [place] [address] | | | | | [place] [address] | [phone] | | | | | [phone] | | | +--------+ + + + [...] + documented in this encounter Results SUZETTE Hayes No Charge (06/19/2017 7:31 PM PST) + [...]
--- OUTSIDE RECORDS SUMMARY | ~2019-11-22 | XMS | Encounter Summary ---
Demographics + + + | Address | [address] | | | [place] [address] | + + + | Home Phone | | + + + | Preferred Language | Unknown | + + + | Marital Status | | + + + | Quaker Affiliation | 1077 | + + + | Race | Unknown | + + + | Ethnic Group | Unknown | + + + Author + + + | Author | [facility] | | | and [place] | + + + | Organization | [facility] | | [...] Team Providers + +------+ + | Care Long Wall Mining Machine Tender Name | Role | Phone | + +------+ + | Aldo Frank DO | PCP | | + +------+ + Encounter Details +--------+ + + + + | Date | Type | Department | Care Team | Description | +--------+ + + + + | 05/14/ | Orders Only | [facility] | Geraldo Bass | S/P spinal fusion | | 2019 | | NEUROSURGERY [address] | MD Fahrat [address] | (Primary Dx); Lumbar | | | | [address] | [address] [place] | radiculopathy; | | | | [place], [place] | [place] [address] | Failed back syndrome | | | | [address] | [phone] | | | | | [phone] | | | +--------+ + + + [...] | + + | S/P spinal fusion - Primary Arthrodesis status | + + | Lumbar radiculopathy Thoracic or lumbosacral neuritis or radiculitis, unspecified | + + | Failed back syndrome Other unspecified back disorder | + + documented in this encounter"
--- OUTSIDE RECORDS SUMMARY | ~2019-11-22 | XMS | Encounter Summary ---
Demographics + + + | Address | [address] | | | [place] [address] | + + + | Home Phone | | + + + | Preferred Language | Unknown | + + + | Marital Status | | + + + | Roman Catholic Affiliation | 1077 | + + + [...] Team Providers + +------+ + | Care Human Geography Instructor Name | Role | Phone | [...] | Changes | NEUROSURGERY [address] | Lion Trainer | | | | | [address] | | | | | | [place] | | | | | | [address] | | | | | | [phone] | | | +--------+ + + + [...]
--- OUTSIDE RECORDS SUMMARY | ~2019-11-22 | XMS | Encounter Summary ---
Demographics + + + | Address | [address] | | | [place] [address] | + + + | Home Phone [...] Team Providers + +------+ + | Care Vocational Services Specialist Name | Role | Phone | [...] | | | | | | | [place] | | | | | | | ARTHRODESIS | | | | | | | POSTERIOR/PO | | | | | | | STEROLATERAL | | | | | | | LUMBAR [place] | | | | | | | LUMBAR SPINE | | | | | | | | | | | | | | FUSION,ANTER | | | | | | | APPRCH VA | | | | | | | [...] + + | 06/19/ | Hospital | [facility] | Kemal Damian MD | Gait abnormality | | 2017 - | Encounter | MED CTR SURGICAL | [address] | (Primary Dx); S/P | | | | [address] | [place] [address] | lumbar fusion; | | 06/21/ | | [place] [address] | [phone] | Spinal stenosis of | | 2017 | | [phone] | | lumbar region, | | | [...] of this note might be different from sharon kim. [facility] NEUROSURGERY DISCHARGE SUMMARY Patient Name: Cosmo Johnson [...] Take 20 mEq by mouth Daily. aka: KLOR-CON ; Current Discharge Medication List START taking [...] month post op appointment before your appointment. 6567-4601 [facility]. [address] [place] [address]. All righ ts reserved. This information is [...] might be differ ent from the original. [facility] NEUROSURGERY PROGRESS NOTE PATIENT NAME: Cosmo [...] PRN Kirk Javier PA-C 10 mg at 06/20/17 2109 metoclopramide (REGLAN) tablet 10 mg 10 mg Oral Q4H PRN Kirk Javier PA-C morphine (MS CONTIN) ER tablet 30 mg 30 mg Oral 2 times per day Akhil Mai A-C 30 mg at 06/20/172000 morphine injection 1-2 [...] no apparent deficits with short or terminal press operator memory. MOTOR EXAM: Motor strength is stable [...] Ibarra PA-C - 06/20/2017 7:40 AM PST [facility] NEUROSURGERY PROGRESS NOTE PATIENT NAME: Cosmo [...] mg Oral 2 times per day Akhil Mai 30 mg at 06/19/172208 morphine injection 1-2 [...] has no apparent deficits with short or alf memory. MOTOR EXAM: Motor strength is stable [...] | | | Scrub | | | [place] | | | (Wire | | | [...] | | [place] | | | n [place] | | | | | | credit investigator | | | ep: | | | Man | | | Conkli | | | n | +---+--------+ | | | | | Specia | | | l | | | Needs | | | | | | Implan | | | ts: | | | XLIFTa | | | ble: | | | [place] | | | n [place] | | | | | | credit investigator | | | ep: | | | [...] | | | |Dictated and Signed by: Laytno Barney MD | | Electronically signed: 06/19/2017 10:00 PM | + + + +---------+ + + | Performing | Address | City/State/Zipcode | Phone Number | | Organization | | | | + +---------+ + + | [facility] | | | | + +---------+ + + SUZETTE Hayes No Charge (06/19/2017 7:31 PM [...] + | Diagnosis | + + | Gait abnormality - Primary Abnormality of gait | + + | S/P lumbar fusion Arthrodesis status | + + | Spinal stenosis of lumbar region, unspecified whether neurogenic claudication present | + + | Chronic renal insufficiency, stage 3 (moderate) (HCC) | + + documented in this encounter Administered Medications + +--------+ +--------+------+------+ | Medication Order | MAR | Action | Dose | Rate | Site | | | Action | Date | | | | + +--------+ +--------+------+------+ | acetaminophen (TYLENOL) tablet | Given | 06/19/20 | 975 mg | | | | 975 mg 975 mg (rounded from | | 17 2:16 | | | | | 1,000 mg), Oral, ONCE, Wed | | PM PST | | | | | 06/19/17 at 1400, For 1 dose, | | | | | | | Pre-op | | | | | | + +--------+ +--------+------+------+ +---+---+ | | | +---+---+ + +-------+ +------+---+---+ | amLODIPine (NORVASC) tablet 5 | Given [...] | | | | | Indigestion, Starting 06/19/17 | | | | | | | at 2148, Post-op/Phase II | | | | | | + +-------+ + +---+---+ +---+---+ | | | +---+---+ + +---------+ +-----+ +---+ | ceFAZolin (ANCEF, KEFZOL) 100 | New Bag | 06/20/20 | 2 g | 40 mL/hr | | | mg/mL IV syringe 2 g 2 g, | | 17 10:29 | | | | | Intravenous, Administer over 30 | | AM PST | | | | | Minutes, EVERY 8 HOURS INTERVAL, | | | | | | | First dose on Josefa 06/20/17 at | | | | | | | 0200, For 2 doses, Start 8 hours | | | | | | | after previous dose. Last dose | | | | | | | to be given within 24 hours of | | | | | | | surgery end time., Post-op/Phase | | | | | | | II, Indications: Surgical | | | | | | | Prophylaxis | | | | | | + +---------+ +-----+ +---+ +---------+ +-----+ +---+ | New Bag | 06/20/20 | 2 g | 40 mL/hr | | | | 17 1:28 | | | | | | AM PST | | | | +---------+ +-----+ +---+ + +---+ | | | + +---+ | diphenhydrAMINE (BENADRYL) 12.5 | | | mg/5 mL liquid 25 mg 25 mg, | | | Oral, EVERY 4 HOURS PRN, Itching, | | | Starting Sat06/19/17 at 2148, | | | Oral route is preferred., | | | Post-op/Phase II | | + +---+ | | | + +---+ | diphenhydrAMINE (BENADRYL) | | | injection 12.5 mg 12.5 mg, | | | Intravenous, EVERY 4 HOURS PRN, | | | Itching, Starting Sat06/19/17 at | | | 2148, Oral route [...] fentaNYL (PF) injection 25-50 | Given | 06/19/20 | 25 mcg | | | | mcg 25-50 mcg, Intravenous, | | 17 8:38 | | | | | EVERY 5 MIN PRN, Pain, Starting | | PM PST | | | | | 06/19/17 at 1934, Maximum | | | | | | | total dose 200 mcg. PACU IV | | | | | | | Narcotic Priority: Only use | | | | | | | fentanyl for immediate post-op | | | | | | | pain (one dose) or breakthrough | | | | | | | pain when any other IV narcotics | | | | | | | ordered have been ineffective (if | | | | | | | ordered). If both morphine and | | | | | | | hydromorphone are ordered, use | | | | | | | morphine first, and use | | | | | | | hydromorphone if morphine | | | | | | | ineffective., Recovery/Phase I | | | | | | + +-------+ +--------+---+---+ +-------+ +--------+---+---+ | Given | 06/19/20 | 25 mcg | | | | | 17 8:22 | | | | | | PM PST | | | | +-------+ +--------+---+---+ | Given | 06/19/20 | 50 mcg | | | | | 17 8:00 | | | | | | PM PST | | | | +-------+ +--------+---+---+ +---+---+ | | | +---+---+ + +-------+ +--------+---+---+ | gabapentin (NEURONTIN) capsule | Given | 06/19/20 | 300 mg | | | | 300 mg 300 mg, Oral, ONCE, Sat | | 17 2:17 | | | | | 06/19/17 at 1400, For 1 dose, | | PM PST | | | | | Pre-op [...] +---------+---+---+ +---+---+ | | | +---+---+ + + + +--------+---+---+ | HYDROmorphone (DILAUDID) | Given by | 06/19/20 | 0.5 mg | | | | injection 0.2-0.5 mg 0.2-0.5 mg, | Other | 17 9:02 | | | | | Intravenous, EVERY 5 MIN PRN, | | PM PST | | | | | Pain, Starting 06/19/17 at | | | | | | | 1934, Maximum total dose 2 mg. | | | | | | [...] | | | | | and use hydromorphone if morphine | | | | | | | ineffective., Recovery/Phase I | | | | | | + + + +--------+---+---+ +-------+ +--------+---+---+ | Given | 06/19/20 | 0.5 mg | | | | | 17 8:54 | | | | | | PM PST | | | | +-------+ +--------+---+---+ | Given | 06/19/20 | 0.5 mg | | | | | 17 8:34 | | | | | | PM [...] | +---+---+ + +---------+ + +--------+---+ | methocarbamol (ROBAXIN) 1,000 | New Bag | 06/19/20 | 1,000 mg | 146.7 | | | mg in sodium chloride 0.9% 100 mL | | 17 8:25 | | mL/hr | | | IVPB 1,000 mg, Intravenous, | | PM PST | | | | | Administer over 45 Minutes, ONCE, | | | | | | | 06/19/17 at 2000, For 1 dose, | | | | [...] | | | | Nausea, Vomiting, Starting Wed | | | | | [...] | | | DAILY, First dose on Josefa 06/20/17 | | AM PST | | [...] | | | +---+---+ + + + +---------+-------+---+ | sodium chloride 0.9% (NS) | Rate/Dos | 06/19/20 | 250 mLs | 100 | | | infusion at 10-100 mL/hr, | e Verify | 17 7:42 | | mL/hr | | | Intravenous, CONTINUOUS, Starting | | PM PST | | | | | 06/19/17 at 1400, TKO. Use | | | | | | | this instead of LR if patient is | | | | | | | on dialysis., Pre-op | | | | | | + + + +---------+-------+---+ +---+---+ | | | +---+---+ + +-------+ [...]
--- OUTSIDE RECORDS SUMMARY | ~2019-11-22 | XMS | Encounter Summary ---
Demographics + + + | Address | [address] | | | [place] [address] | + + + | Home Phone | | + + + | Preferred Language | Unknown | + + + | Marital Status | | + + + | Islam Affiliation | PRE | + + + | Race | White | + + + | Ethnic Group | Not or | + + + Author + + + | Author | [facility] | + + + | Organization | [facility] | + + + | Address | Unknown | + + + | Phone | Unavailable | + + + Support + + + + + | Name | Relationship | Address | Phone | + + + + + | Ricarda Johnson | ECON | [address] | | | | | [place] | | | | | [address] | | + + + + + Care Team Providers + +------+ + | Care Abseiling Instructor Name | Role | Phone | + +------+ + | Hay Greco MD | PCP | | + +------+ + Encounter Details +--------+ + + + + | Date | Type | Department | Care Team | Description | +--------+ + + + + | 04/23/ | Hospital | Dermatopathology | | | | 2011 | Encounter | [address] | | | | | | Mailcode: CH16D | | | | | | [facility] | | | | | | and Healing, | | | | | | Building , | | | | | | Floor [place], [place] | | | | | | [address] | | | | | | [phone] | | | +--------+ + + + [...] + + + +---------+ + + | Richards-3 Fatty | Take by mouth. | | [...] brownskin | | | | | | [id number]. The specimen | | | | | [...] [facility] | Mailcode CH5D [address] | [place] [address] | | | DERMATOPATHOLOGY | [address] | | | + + + + + documented in this encounter Visit Diagnoses Not on filedocumented in this encounter
--- OUTSIDE RECORDS SUMMARY | ~2019-11-22 | XMS | Encounter Summary ---
Demographics + + + | Address | [address] | | | [place] [address] | + + + | Home Phone [...] + + + | Author | [facility] | + + + | Organization | [facility] | + + + | Address | Unknown | + + + | Phone | Unavailable | + + + Support + + + + + | Name | Relationship | Address | Phone | + + + + + | Ricarda Johnson | ECON | [address] | | | | | [place] | | | | | [address] | | + + + + + Care Team Providers + +------+ + | Care Property Technician Name | Role | Phone | + +------+ + | Hay Greco MD | PCP | | + +------+ + Encounter Details +--------+ + + + + | Date | Type | Department | Care Team | Description | +--------+ + + + + | 08/28/ | Abstract | Digestive Health | Edgar Hampton, | | | 2011 | | [place] [facility] [address] | [address] | | | | | [address] | [address] | | | | | Mailcode: Center | [place], [place] | | | | | for Health and | [address] | | | | | [facility] [address] | [phone] | | | | | [place], [place] | | | | | | [address] | | | | | | [phone] | | | +--------+ + + + [...]
--- OUTSIDE RECORDS SUMMARY | ~2019-11-22 | XMS | Encounter Summary ---
Demographics + + + | Address | [address] | | | [place] [address] | + + + | Home Phone [...] Team Providers + +------+ + | Care Filter Helper Name | Role | Phone | + +------+ + | Hay Greco MD | PCP | | + +------+ + Encounter Details +--------+ + + + + | Date | Type | Department | Care Team | Description | +--------+ + + + + | 12/20/ | [facility] | Pedro Marc, | Elevated blood | | 2013 - | Encounter | [facility] [address] | MD [address] | pressure reading | | | | [address] | [place], [place] | without diagnosis of | | 12/21/ | | [place], [place] | [address] | hypertension; Renal | | 2012 | | [address] | | insufficiency; Mild | | | | [phone] | | anemia; Laceration | | | | | | of finger, left, | | | | | | complicated | +--------+ + + + + Social [...] documented as of this encounter Discharge Summaries Pedro Marc MD - 12/21/2012 12:07 PM PDTFormatting of this note might be different fr om the original. Discharge Summaries by Pedro Marc MD at 12/21/12 1207 Author: Pedro Marc MD Service: Orthopedic Surgery Author Type: Physician Filed: 12/21/12 0315 Date of Service: 12/21/12 1207 Status: Signed Brusher: Pedro Marc MD (Physician) Related Notes: Original Note by Pedro Marc MD (Physician) filed at 12/21/12 1210 documented in this encounter Progress Notes Celeste Nick PT - 12/21/2012 9:07 AM PDTFormatting of this note might be different fr om the original. 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 s/p r epair and I/D. Currently at baseline mobility, no skilled PT needs. Pt may need OP hand ther apy once appropriate Cognition Overall Cognitive Status WFL Orientation Level Oriented Bed Mobility Supine to Sit Independent Sit to Supine Independent Transfers Sit to/from Stand Independent Mobility Maximal Ambulation Distance (feet) 700 Total Ambulation Distance (feet) 700 Distance limited by? Therapist/staff discretion Pattern Alternating Assistive Device None Plan Treatment/Interventions Discharge skilled PT services Progress Reached highest level of independence with therapy Requires PT Follow Up No Recommendation Recommendations Outpatient PT;Outpatient OT (for possible hand therapy appropriate) Celeste Ayala PT 12/21/2012 onversion Transact ion, Provider Unknown - 12/20/2012 9:01 PM PDTFormatting of this note might be different fr om the original. Progress Notes by Sebastian Gallagher RN at 12/20/122100 Author: Sebastian Gallagher RN Service: (none) Author Type: Registered Nurse Filed: 12/20/122101 Date of Service: 12/20/122100 Status: Signed Brusher: Sebastian Gallagher, RN (Registered Nurse) Report taken from ED. Pt bought to the floor. 15 minutes later report given to Felicita for surgery. onver shayy Transaction, Provider Unknown - 12/20/2012 7:35 PM PDT Progress Notes by Melissa Pearce RPH at 12/20/121934 Author: Melissa Pearce RPH Service: (none) Author Type: Pharmacist Filed: 12/20/121934 Date of Service: 12/20/121934 Status: Signed Brusher: Melissa Pearce RPH (Pharmacist) Based on Crcl~47ml/min no medications need adjustments at this time. Will continue to carla szymanski docume nted in this encounter Plan of Treatment Not on filedocumented as of this encounter Procedures + +--------+ + + + | Procedure Name | Priori | Date/Time | Associated Diagnosis | Comments | | | ty | | | | + +--------+ + + + | MRSA NAAT | Timed | 12/20/2012 | | Results for this | | | | 3:15 PM | | procedure are in the | | | | PDT | | results section. | + +--------+ + + + | ECG 12 LEAD | Routin | 12/20/2012 | | Results for this | | | e | 3:02 PM | | procedure are in the | | | | PDT | | results section. | + +--------+ + + + | XR CHEST 2 VIEWS | Routin | 12/20/2012 | | Results for this | | | e | 2:56 PM | | procedure are in the | | | | PDT | | results section. | + +--------+ + + + documented in this encounter Results MRSA NAAT (12/20/2012 3:15 PM PDT) + + | Specimen | + + | | + + + + + | Narrative | Performed At | + + + | SOURCE NARES(NOSE) MRSA | EXTERNAL LAB | | PCR NEGATIVE Testing | | | performed at [facility];[address] [place] [address];[place] [address] | | + + + + +---------+ + + | Performing | Address | City/State/Zipcode | Phone Number | | Organization | | | | + +---------+ + + | EXTERNAL LAB | | | | + +---------+ + + ECG 12 lead (12/20/2012 3:02 PM PDT) + + + + + + | Component | Value | Ref Range | Performed | Pathologist | | | | | At | Signature | + + + + + + | DIAGNOSIS: | Sinus | | EXTERNAL | | | | bradycardiaOtherwise | | LAB | | | | normal ECGNo previous | | | | | | ECGs availableThis ECG | | | | | | contains Unconfirmed | | | | | | Interpretation | | | | | | Statements. See ED | | | | | | Record for Physician | | | | | | Interpretation. | | | | | | Confirmed by MUSE READ | | | | | | ONLY, -COMPUTER ([id number]), | | | | | | commissioning editor Derrek Rowley | | | | | | ([id number]) on 12/21/2012 | | | | | | 8:21:58 AM | | | | + + + + + + + + | Specimen | + + | | + + + + + | Narrative | Performed At | + + + | Historically converted procedure from [facility] environment | EXTERNAL LAB | + + + + +---------+ + + | Performing | Address | City/State/Zipcode | Phone Number | | Organization | | | | + +---------+ + + | EXTERNAL LAB | | | | + +---------+ + + XR Chest 2 Vws (12/20/2012 2:56 PM PDT) + + | Specimen | + + | | + + + + + | Narrative | Performed At | + + + | HISTORY: Open fractures left hand third and fourth digits. | | | COMPARISON: None. TECHNIQUE: Frontal and lateral films of the | | | chest were obtained. FINDINGS: Nodular density right apex | | | measuring 7 mm. Apical lordotic view is suggested. Minimal left | | | basilar and right basilar strandy changes on the frontal view, | | | probably due to subtle atelectasis. No infiltrates or effusions. | | | Old healed right posterolateral sixth seventh eighth and probably | | | ninth ribs. Heart size is normal. Degenerative changes of the | | | shoulders are poorly defined on these images. IMPRESSION: 1. | | | Nodular density measuring 7 mm right apex. Apical lordotic view is | | | suggested. 2. Minimal bibasilar atelectasis. 3. Old healed | | | right rib fractures. Electronically signed by Paco Logan MD on | | | 12/20/2012 3:28 PM | | + + + + + | Procedure Note | + + | Reji, Rad Conversion - 03/06/2019 6:32 PM PDT HISTORY:Open fractures left hand third | | and fourth digits. COMPARISON:None. TECHNIQUE:Frontal and lateral films of the chest | | were obtained. FINDINGS:Nodular density right apex measuring 7 mm. Apical lordotic view | | is suggested. Minimal left basilar and right basilar strandy changes on the frontal | | view, probably due to subtle atelectasis. No infiltrates or effusions. Old healed | | right posterolateral sixth seventh eighth and probably ninth ribs. Heart size is | | normal. Degenerative changes of the shoulders are poorly defined on these images. | | IMPRESSION:1. Nodular density measuring 7 mm right apex. Apical lordotic view is | | suggested.2. Minimal bibasilar atelectasis.3. Old healed right rib fractures. | | | |Nodular density right apex measuring 7 mm. Apical lordotic view is suggested. Minimal lef t basilar and right basilar strandy changes on the frontal view, probably due to subtle atel ectasis. No infiltrates or | |effusions. Old healed right posterolateral | | sixth seventh eighth and probably ninth ribs. Heart size is normal. Degenerative changes of the shoulders are poorly defined on these images. | | | |IMPRESSION: | |1. Nodular density measuring 7 mm right apex. Apical lordotic view is suggested. | |2. Minimal bibasilar atelectasis. | |3. Old healed right rib fractures. | | | | | + + documented in this encounter Visit Diagnoses + + | Diagnosis | + + | Elevated blood pressure reading without diagnosis of hypertension | + + | Renal insufficiency Unspecified disorder of kidney and ureter | + + | Mild anemia Anemia, unspecified | + + | Laceration of finger, left, complicated Open wound of finger(s) , complicated | + + documented in this encounter"
--- OUTSIDE RECORDS SUMMARY | ~2019-11-22 | XMS | Encounter Summary ---
Demographics + + + | Address | [address] | | | [place] [address] | + + + | Home Phone | | + + + | Preferred Language | Unknown | + + + | Marital Status | | + + + | Tenriism Affiliation | PRE | + + + [...] + | Ricarda Johnson | ECON | [address] | | | | | [place] | | | | | [address] | | + + + + + Care Team Providers + +------+ + | Care Amusement Centre Manager Name | Role | Phone | [...] | | | | | | | [facility] | | | | | | | [facility] and | | | | | | | [facility]aling, | | | | | | | [address] | | | | | | | [place], [place] | | | | | | | [address] | | | | | | | Phone: | | | | | | | [phone] | | | | | | | Fax: | | | | | | | [phone] | +--------+--------+ + + + + Encounter Details +--------+---------+ + + + | Date | Type | Department | Care Team | Description | +--------+---------+ + + + | 11/12/ | Office | Dig[facility]ive Health | Edgar Hampton, | 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 Department of Surgery P DTdocumented in [...]
--- OUTSIDE RECORDS SUMMARY | ~2019-11-22 | XMS | Encounter Summary ---
Demographics + + + | Address | [address] | | | [place] [address] | + + + | Home Phone | | + + + | Preferred Language | Unknown | + + + | Marital Status | | + + + | Muslim Affiliation | PRE | + + + | Race | White | + + + | Ethnic Group | Not or | + + + Author + + + | Author | [facility] | + + + | Organization | [facility] | + + + | Address | Unknown | + + + | Phone | Unavailable | + + + Support + + + + + | Name | Relationship | Address | Phone | + + + + + | Ricarda Johnson | ECON | [address] | | | | | [place] | | | | | [address] | | + + + + + Care Team Providers + +------+ + | Care Video Player Mechanic Name | Role | Phone | + +------+ + | Hay Greco MD | PCP | | + +------+ + Reason for Referral PROC - Inpatient Surgery (Routine) +--------+--------+ + + + + | Status | Reason | Specialty | Diagnoses / | Referred By | Referred To | | | | | Procedures | Contact | Contact | +--------+--------+ + + + + | Closed | | Surgery | Diagnoses | Berta, | Berta, | | | | | Rectal | Edgar Zuñiga MD | Edgar Zuñiga MD | | | | | cancer (HCC) | [address] | | | | | Procedures | [address] | [address] | | | | | REQUEST TO | [address] | [address] [place], | | | | | SURGERY | [place], [place] | [place] | | | | | RADIOLOGY ADMINISTRATOR | [address] | [address] | | | | | [place] CLOSE | Phone: | Phone: | | | | | ENTEROSTOMY, | [phone] | [phone] | | | | | [facility] | Fax: | Fax: | | | | | | [phone] | [phone] | +--------+--------+ + + + + Reason for Visit + + + | Reason | Comments | + + + | Pre-Admission | | + + + Encounter Details +--------+ + + + + | Date | Type | Department | Care Team | Description | +--------+ + + + + | 10/16/ | PreAdmit | Digestive Health | Edgar Hampton, | Pre-Admission | | 2011 | Orders | Center at [facility] | [address] [facility] | | | | | Debbie Mock | [address] | | | | | Mailcode: [address] | [place], [place] | | | | | [facility] and | [address] | | | | | [facility] 2 | [phone] | | | | | [place], [place] | | | | | | [address] | | | | | | [phone] | | | +--------+ + + + [...] | | + +------+--------+ + + | 12 LEAD ECG | ECG | Routin | Rectal cancer | Ordered: 10/17/2011 | | | | e | (HCC) | | + +------+--------+ + + documented as of this encounter Results TYPE AND SCREEN (10/30/2011 11:34 AM PDT) [...] | + + + + + | [facility] | [address] | [place] [address] | | | PATHOLOGY | [address] [...] by | | | | | | [employer], | | | | | | | | | | | | [address] | | | | | | Marko [address] [facility] [place] | | | | | | [address] | | | | | | | | | | | | [email or web address], | | | | | | Rebeca [...] [facility] | [address] | [place], [place] | | | [facility] | | [address] | | + + + + + [...] | + + + + + | [facility] DEPARTMENT OF | [address] | [place] [address] | | | PATHOLOGY | [address] [...] 85 | 60 - 99 mg/dL | [facility] | | | PLASMA | | | [...] | | | DEPARTMENT | | | [place] | | | OF | | | [...] | + + + + + | [facility] | [address] | [place] [address] | | | PATHOLOGY | [address] [...] DEPARTMENT OF | [address] | [place] [address] | | | PATHOLOGY | [address] [...] | + + + + + | [facility] | [address] | [place] [address] | | | PATHOLOGY | [address] | | | + + + + + documented in this encounter Visit Diagnoses + + | Diagnosis | + + | Rectal cancer (HCC) - Primary Malignant neoplasm of rectum | + + documented in this encounter"
--- OUTSIDE RECORDS SUMMARY | ~2019-11-22 | XMS | Encounter Summary ---
Demographics + + + | Address | [address] | | | [place] [address] | + + + | Home Phone [...] + | Ricarda Johnson | ECON | [address] | | | | | [place] | | | | | [address] | | + + + + + Care Team Providers + +------+ + | Care Receiving Barn Custodian Name | Role | Phone | + +------+ + | Hay Greco MD | PCP | | + +------+ + Encounter Details +--------+ + + + + | Date | Type | Department | Care Team | Description | +--------+ + + + + | 08/01/ | Abstract | Dig[facility]ive Health | Edgar Hampton, | | | 2011 | | [place] [facility] [address] | [address] | | | | | [address] | [address] | | | | | Mailcode: Center | [place], [place] | | | | | for Health and | [address] | | | | | [facility], [facility] 2 | [phone] | | | | | [place], [place] | | | | | | [address] | | | | | | [phone] | | | +--------+ + + + [...]
--- OUTSIDE RECORDS SUMMARY | ~2019-11-22 | XMS | Encounter Summary ---
Demographics + + + | Address | [address] | | | [place] [address] | + + + | Home Phone | | + + + | Preferred Language | Unknown | + + + | Marital Status | | + + + | Zoroastrian Affiliation | 1077 | + + + | Race | Unknown | + + + | Ethnic Group | Unknown | + + + Author + + + | Author | [facility] | | | and [place] | + + + | Organization | [facility] | | | [...] Team Providers + +------+ + | Care Public Aid Eligibility Assistant Name | Role | Phone | [...] | Changes | NEUROSURGERY [address] | Acid Etch Operator | | | | | [address] | | | | | | [place] | | | | | | [address] | | | | | | [phone] | | | +--------+ + + + [...]
--- OUTSIDE RECORDS SUMMARY | ~2019-11-22 | XMS | Encounter Summary ---
Demographics + + + | Address | [address] | | | [place] [address] | + + + | Home Phone [...] Team Providers + +------+ + | Care Office Administration Instructor Name | Role | Phone | [...] | | | | e disc | [place], | THERAPY [address] | | | | | disease), | [place] [address] | [place] | | | | | lumbar | Phone: | [place], [place] | | | | | Spondylolist | [phone] | [address] | | | | | hesis of | Fax: | Phone: | | | | | lumbar | [phone] | [phone] | | | | | region | | Fax: | | | | | Facet | | [phone] | | | | | arthropathy, | [...] | | [address] | [place] [address] | lumbar (Primary Dx); | | | | [place], [place] | [phone] | Spondylolisthesis | | | | [address] | | of lumbar region; | | | | [phone] | | Facet arthropathy, | | | [...]
--- OUTSIDE RECORDS SUMMARY | ~2019-11-22 | XMS | Encounter Summary ---
Demographics + + + | Address | [address] | | | [place] [address] | + + + | Home Phone [...] + | Ricarda Johnson | ECON | [address] | | | | | [place] | | | | | [address] | | + + + + + Care Team Providers + +------+ + | Care Vehicle Maintenance Supervisor Name | Role | Phone | [...] | | | | | [facility] | [facility] | | | | | Hospital Admitting | [place], [place] | | | | | Desk Located on the | [address] | | | | | 9th floor | [phone] | | | | | [place], [place] | | | | | | [address] | | | +--------+ + + + [...]
--- OUTSIDE RECORDS SUMMARY | ~2019-11-22 | XMS | Encounter Summary ---
Demographics + + + | Address | [address] | | | [place] [address] | + + + | Home Phone | | + + + | Preferred Language | Unknown | + + + | Marital Status | | + + + | Jewish Affiliation | 1077 | + + + [...] Team Providers + +------+ + | Care Credit Review Officer Name | Role | Phone | [...] | | | S/Akhil spinal | | Haroldo, MD | | | | | fusion | | [address] | | | | | Lumbar | | [address] | | | | | radiculopath | | [address] | | | | | y Failed | | [place] | | | | | back | | [address] Phone: | | | | | syndrome | | [phone] | | | | | Procedures | | Fax: | | | | | CT SURG | | [phone] | | | | | IMPLNT | [...] + + + + | 06/18/ | Anesthesia | CAM[facility]N MAXWELL | [facility] | | | 2018 | Event | [facility] | DO Osvaldo [address] | | | | | [address] | [address] | | | | | [place], [place] | [place] [address] | | | | | [address] | | | | | | [phone] | | | +--------+ + + + + Anesthesia Record + + + + + | Procedure Name | Responsible | Anesthesia Start | Anesthesia Stop Time | | | Anesthesiologist | Time | | + + + + + | PLACEMENT SPINAL | [facility], | 06/18/19 0749 | 06/18/19 1002 | | CORD STIMULATOR (N/A | DO | | | | Spine Thoracic) | | | | + + + + + +----+---+ + + | Da | T | Event | Comment | | te | i | | | | | m | | | | | e | | | +----+---+ + + | 12 | 0 | An Checkout | Pre-use anesthesia machine/equipment checkout. | | /0 | 7 | | | | 5/ | 1 | | | | 20 | 4 | | | | 19 | | | | +----+---+ + + | | 0 | | | | | 7 | | | | | 3 | | | | | 5 | | | +----+---+ + + | | 0 | An Start | Reassessment prior to anesthesia induction/procedure. | | | 7 | | | | | 4 | | | | | 9 | | | +----+---+ + + | | 0 | Preoxygenat | | | | 7 | ed | | | | 5 | | | | | 5 | | | +----+---+ + + | | 0 | An | | | | 7 | Induction | | | | 5 | | | | | 8 | | | +----+---+ + + | | 0 | An | | | | 7 | Intubation | | | | 5 | | | | | 9 | | | +----+---+ + + | | 0 | AN Bite | | | | 8 | Block | | | | 0 | | | | | 1 | | | +----+---+ + + | | 0 | Antibiotic | | | | 8 | Given | | | | 1 | | | | | 6 | | | +----+---+ + + | | 0 | AN | Per surgeon request | | | 8 | Antibiotic | | | | 1 | declined | | | | 6 | | | +----+---+ + + | | 0 | Aurora | | | | 8 | 43-degrees | | | | 2 | | | | | 3 | | | +----+---+ + + | | 0 | Pre-Procedu | | | | 8 | ral Timeout | | | | 2 | Completed | | | | 3 | | | +----+---+ + + | | 0 | First | | | | 8 | Inc/Proc St | | | | 2 | | | | | 5 | | | +----+---+ + + | | 0 | [facility] off | | | | 9 | | | | | 4 | | | | | 1 | | | +----+---+ + + | | 0 | Oropharynx | | | | 9 | Suctioned | | | | 5 | | | | | 6 | | | +----+---+ + + | | 0 | Breathing | | | | 9 | Spontaneous | | | | 5 | ly | | | | 7 | | | +----+---+ + + | | 0 | AN No | TOF 4/4 with sustained tetanus. | | | 9 | Residual | | | | 5 | NMB | | | | 7 | | | +----+---+ + + | | 0 | Moving | | | | 9 | Purposefull | | | | 5 | y | | | | 7 | | | +----+---+ + + | | 0 | Extubation/ | | | | 9 | Airway LDA | | | | 5 | Removal | | | | 7 | | | +----+---+ + + | | 0 | an stop | | | | 9 | data | | | | 5 | | | | | 7 | | | +----+---+ + + | | 1 | An Stop | Patient handed off to recovery nurse. | | | 0 | | | | | 2 | | | +----+---+ + + +------+ | Meds | +------+ + + + | Name | Total | + + + | fentaNYL injection (2 mL) | 125 mcg | + + + | lidocaine 2% | 100 mg | + + + | propofol (DIPRIVAN) injection | 160 mg | | (bolus) (20 mL) | | + + + | propofol | 191.56 mg | + + + | succinylcholine | 100 mg | + + + | ondansetron | 4 mg | + + + | dexamethasone | 10 mg | + + + | ePHEDrine (AKOVAZ) injection 50 | 22.5 mg | | mg/mL | | + + + | ceFAZolin (ANCEF, KEFZOL) 100 | 2 g | | mg/mL IV syringe 2 g | | + + + | lactated ringers (LR) infusion | 850 mL | + + + + + | Name | + + | N2O Flow Rate (L/Min) | + + | O2 Flow Rate (L/Min) | + + | Insp O2 | + + | Exp SEV | + + | Air Flow Rate (L/Min) | + + + + | No blood administrations on file. | + + +--------+ + + + | Type | Details | Placement | Removal | +--------+ + + + | Periph | 06/18/19; 0700; Right; Forearm; | 06/18/19 0700 by | 06/18/19 1121 by | | eral | rbrq-yhy-ivanvd catheter system; | Anahi Lara RN | Vivienne Limon RN | | IV | 20 gauge, 1 1/4 in length; 0; | | | | | distraction, tolerated well; no | | | | | longer indicated; 06/18/19; 1121 | | | +--------+ + + + | Airway | Placement Date: 06/18/19; | 06/18/19 0759 by | 06/18/19 0957 by | | | Placement Time: 758 (created via | [facility], | [facility], | | | procedure documentation); Airway | DO | DO | | | Grade: 1; Successful Technique: | | | | | video scope; Laryngoscope Blade | | | | | Size: 3; Attempts: 1; Airway | | | | | Type: endotracheal; Size: 7; | | | | | Airway Tube Secured At: 23; | | | | | Trauma: none; Other Equipment: | | | | | stylette; Placement Check: | | | | | exhaled CO2 detection device; | | | | | Removal Date: 06/18/19; Removal | | | | | Time: 0957 | | | +--------+ + + + | Wound | 06/18/19; 0851; Incision; | 06/18/19 0851 by | 06/18/19 1120 by | | | Bilateral; back; Healing; | Man Beavers RN | Vivienne Limon RN | | | 06/18/19; 1120 | | | +--------+ + + + [...] | ANE AIRWAY NOTE | Routin | 06/18/2019 | | Results for this | | | e | 8:13 AM | | procedure are in the | | | | PST | | results section. | + +--------+ + + + documented in this encounter Results Anesthesia Airway Note (06/18/2019 8:13 AM PST) + + + | Narrative | Performed At | + + + | [facility] DO 06/18/2019 8:13 AM Anesthesia Airway | | | Placement 06/18/2019 7:59 AM Preprocedure check: patient | | | identified, oxygen, airway assessed, patient reassessment prior to | | | induction, airway equipment checked and suction Successful technique: | | | videoscope Laryngoscope blade size: 3 Airway grade: 1 (Full view | | | of glottis) Other equipment: stylette Attempts: 1 Airway type: | | | endotracheal Size: 7 Cuffed: cuffed Route, reference point: right | | | side of mouth Tube depth: 23 cm Tube secured with: adhesive tape | | | Trauma: none Tube placement verification: carbon dioxide detection | | | Performing provider: [facility] Grace DO Authorizing provider: | | | [facility] DO Please see intraoperative grid for | | | any additional medication documentation. | | + + + documented in this encounter Visit Diagnoses Not on filedocumented in this encounter Administered Medications + +--------+ +------+------+------+ | Medication Order | MAR | Action | Dose | Rate | Site | | | Action | Date | | | | + +--------+ +------+------+------+ | ceFAZolin (ANCEF, KEFZOL) 100 | Given | 06/18/20 | 2 g | | | | mg/mL IV syringe 2 g 2 g, | | 19 8:12 | | | | | Intravenous, Administer over 30 | | AM PST | | | | | Minutes, Prior to Incision, | | | | | | | Starting [facility] 06/18/19 at 0745, For | | | | | | | 1 dose, Pre-op, Indications: | | | | | | | Surgical Prophylaxis | | | | | | + +--------+ +------+------+------+ +---+---+ | | | +---+---+ + +-------+ +-------+---+---+ | dexamethasone (PF) 10 mg/mL | Given | 06/18/20 | 10 mg | | | | injection Intravenous, PRN, | | 19 8:12 | | | | | Starting [facility] 06/18/19 at 0812, | | AM PST | | | | | Anesthesia Intra-op | | | | | | + +-------+ +-------+---+---+ +---+---+ | | | +---+---+ + +-------+ +------+---+---+ | ePHEDrine (AKOVAZ) 50 mg/mL | Given | 06/18/20 | 5 mg | | | | injection Intravenous, PRN, | | 19 8:51 | | | | | Starting [facility] 06/18/19 at 0804, | | AM PST | | | | | Anesthesia Intra-op | | | | | | + +-------+ +------+---+---+ +-------+ +--------+---+---+ | Given | 06/18/20 | 7.5 mg | | | | | 19 8:31 | | | | | | AM PST | | | | +-------+ +--------+---+---+ | Given | 06/18/20 | 5 mg | | | | | 19 8:21 | | | | | | AM PST | | | | +-------+ +--------+---+---+ +---+---+ | | | +---+---+ + +-------+ +--------+---+---+ | fentaNYL (PF) injection | Given | 06/18/20 | 25 mcg | | | | Intravenous, PRN, Starting [facility] | | 19 9:10 | | | | | 06/18/19 at 0757, Anesthesia | | AM PST | | | | | Intra-op | | | | | | + +-------+ +--------+---+---+ +-------+ +--------+---+---+ | Given | 06/18/20 | 50 mcg | | | | | 19 8:22 | | | | | | AM PST | | | | +-------+ +--------+---+---+ | Given | 06/18/20 | 50 mcg | | | | | 19 7:57 | | | | | | AM PST | | | | +-------+ +--------+---+---+ +---+---+ | | | +---+---+ + +-------+ +--------+---+---+ | lidocaine (PF) 2% injection | Given | 06/18/20 | 100 mg | | | | Intravenous, PRN, Starting Josefa | | 19 7:57 | | | | | 06/18/19 at 0757, Anesthesia | | AM PST | | | | | Intra-op | | | | | | + +-------+ +--------+---+---+ +---+---+ | | | +---+---+ + +-------+ +------+---+---+ | ondansetron (ZOFRAN) injection | Given | 06/18/20 | 4 mg | | | | Intravenous, PRN, Starting Jose[facility] | | 19 9:07 | | | | | 06/18/19 at 0907, Anesthesia | | AM PST | | | | | Intra-op | | | | | | + +-------+ +------+---+---+ +---+---+ | | | +---+---+ + +-------+ +--------+---+---+ | propofol (DIPRIVAN) injection | Given | 06/18/20 | 160 mg | | | | Intravenous, PRN, Starting Josefa | | 19 7:58 | | | | | 06/18/19 at 0758, Anesthesia | | AM PST | | | | | Intra-op | | | | | | + +-------+ +--------+---+---+ +---+---+ | | | +---+---+ + +---------+ + +-------+---+ | propofol (DIPRIVAN) injection | New Bag | 06/18/20 | 25 | 12.6 | | | Intravenous, CONTINUOUS PRN, | | 19 8:07 | mcg/kg/m | mL/hr | | | Starting Josefa 06/18/19 at 0807, | | AM PST | in | | | | Anesthesia Intra-op | | | | | | + +---------+ + +-------+---+ +---+---+ | | | +---+---+ + +-------+ +--------+---+---+ | succinylcholine (ANECTINE) | Given | 06/18/20 | 100 mg | | | | injection Intravenous, PRN, | | 19 7:58 | | | | | Starting Josefa 06/18/19 at 0758, | | AM PST | | | | | Anesthesia Intra-op | | | | | | + +-------+ +--------+---+---+ +---+---+ | | | +---+---+ documented in this encounter"
--- OUTSIDE RECORDS SUMMARY | ~2019-11-22 | XMS | Encounter Summary ---
Demographics + + + | Address | [address] | | | [place] [address] | + + + | Home Phone [...] Team Providers + +------+ + | Care Systems Support Engineer Name | Role | Phone | [...] | Changes | NEUROSURGERY [address] | Fraud Prevention Analyst | | | | | [address] | | | | | | [place] | | | | | | [address] | | | | | | [phone] | | | +--------+ + + + [...]
--- OUTSIDE RECORDS SUMMARY | ~2019-11-22 | XMS | Encounter Summary ---
Demographics + + + | Address | [address] | | | [place] [address] | + + + | Home Phone | | + + + | Preferred Language | Unknown | + + + | Marital Status | | + + + | Denominational Affiliation | 1077 | + + + | Race | Unknown | + + + | Ethnic Group | Unknown | + + + Author + + + | Author | Merged With [facility] | | | and [place] | + + + | Organization | Merged With [facility] | | | [...] Team Providers + +------+ + | Care Pocket Secretary Assembler Name | Role | Phone | + +------+ + | Hay Greco MD | PCP | | + +------+ + Reason for Visit + + + | Reason | Comments | + + + | New Patient | Low back pain | + + + Evaluate & Treat (Routine) +--------+--------+ + + + + | Status | Reason | Specialty | Diagnoses / | Referred By | Referred To | | | | | Procedures | Contact | Contact | +--------+--------+ + + + + | Closed | | Neurosurgery | Diagnoses | Angus, | Kemal Damian | | | | | Back pain | Hay Rolon MD [address] | | | | | Procedures | MD Brandon | [address] | | | | | DE OFFICE | [address] | [place], [place] | | | | | CONSULTATION | [place] | [address] | | | | | NEW/ESTAB | [address] | Phone: | | | | | PATIENT 59 | [place], | [phone] | | | | | MIN History | [place] | Fax: | | | | | of L4-L5 | [address] | [phone] | | | | | vertebral | Phone: | | | | | | fusion 2009 | [phone] | | | | | | | Fax: | | | | | | | [phone] | | +--------+--------+ + + + + Encounter Details +--------+---------+ + + + | Date | Type | Department | Care Team | Description | +--------+---------+ + + + | 06/09/ | Office | [facility] [place] | Kemal Damian MD | DDD (degenerative | | 2012 | Visit | NEUROSURGERY [address] | [address] | disc disease), | | | | [address] | [place] [address] | lumbar (Primary Dx); | | | | [place] | [phone] | Spondylolisthesis | | | | [address] | | of lumbar region; | | | | [phone] | | Facet arthropathy, | | | [...] + + + | Blood Pressure | 146/81 | 06/09/2013 10:48 AM | | | | | PST | | + + + + + | Pulse | 65 | 06/09/2013 10:48 AM | | | | | PST | | + + + + + | Temperature | - | - | | + + + + + | Respiratory Rate | 16 | 06/09/2013 10:48 AM | | | | | PST | | + + + + + | Oxygen Saturation | - | - | | + + + + + | Inhaled Oxygen | - | - | | | Concentration | | | | + + + + + | Weight | 79.4 kg (175 lb) | 06/09/2013 10:48 AM | | | | | PST | | + + + + + | Height | 175.3 cm (5' 9") | 06/09/2013 10:48 AM | | | | | PST | | + + + + + | Body Mass Index | 25.84 | 06/09/2013 10:48 AM | | | | | PST | | + + + + + documented in this encounter Progress Notes Kemal Damian MD - 06/09/2013 10:35 AM PSTFormatting of this note might be different from t he original. Kemal Damian M.D., [facility], [address], [address] [place], [place] [id number] FAX: NEUROSURGERY HISTORY AND PHYSICAL EXAMINATION CHIEF COMPLAINT: Chief Complaint Patient presents with New Patient Low back pain HISTORY OF PRESENT ILLNESS: The patient is a 68 y.o. male with the complaint of back and l eg pain. This patient has had ongoing problems with his back for many years mostly worse in the morning and the evening. As he is up working through the day he feels pretty good. Un fortunately in February of this year he felt backwards and felt his back gave way his symptoms have become worse since that time. He now has pain mostly into his low back which is fairl y constant but will have increasing problems with his low back at times any pain radiating i nto the posterior portion of his left leg occasionally his right leg will be affected. He h as some chronic numbness on the lateral portion of his left leg but otherwise has not noted any new numbness or weakness of his legs. He has not had any change in bowel or bladder fun ction. He has been using Aleve and anti-inflammatories with some temporary improvement of h is symptoms. Patient did have some steroid injections in his hand which seem to improve his back pain albeit temporary. His symptoms improve with sitting down His symptoms worsen with extension of his back, reaching above his head. Standing or sitti ng greater than an hour His has tried medications PAST MEDICAL HISTORY: Past Medical History Diagnosis Date High cholesterol Rectal cancer PAST SURGICAL HISTORY: Past Surgical History Procedure Date Back surgery Rectal cancer CURRENT MEDICATIONS: Current Outpatient Prescriptions Medication Sig Dispense Refill Vqufdfyxu-Rnrrzuxkfaw-Rug D (GLUCOSAMINE COMPLEX PO) Take 2 tablets by mouth Daily. HYDROCODONE-ACETAMINOPHEN PO Take 2 tablets by mouth Daily as needed. IBUPROFEN Take 2 tablets by mouth Daily. lovastatin (ALTOPREV) 40 MG 24 hr tablet Take 40 mg by mouth nightly. MULTIPLE VITAMIN PO Take 1 tablet by mouth Daily. Naproxen Sodium (ALEVE PO) Take 2 tablets by mouth Daily as needed. ALLERGIES: Allergies Allergen Reactions Povidone Iodine Rash SOCIAL HISTORY: The patient reports that he has never smoked. He does not have any smokeless tobacco histo ry on file. He reports that he drinks alcohol. He reports that he does not use illicit drugs . FAMILY HISTORY: Family History Problem Relation Age of Onset Cancer Other Uncle & 2 cousins Heart disease Mother Heart disease Father Heart disease Brother Hypertension Brother REVIEW OF SYSTEMS GENERALLY: No fever, positive for night sweats, no anemia, no fatigue, no recent profound weight changes. EYES: positive for eye problems, positive for use of corrective lenses, no eye injury, no double vision, no blindness. EARS, NOSE, AND THROAT: No changes in taste or smell, positive for hearing difficulty, pos itive for ringing in the ears, no ear drainage, no dizziness, no voice changes, no difficult y swallowing, positive for significant snoring, no sleep apnea, no sinus problems, no major dental work. NEUROLOGICALLY: Please see the review of systems discussed above in the history of present illness. In addition, the patient has numbness/pain of arms, numbness/pain of legs, awake with numbness/pain, change in walk, pain in back, headaches . PSYCHIATRIC: No depression, no sleep disorders, no anxiety, no bipolar disorder, no psycho tic episodes. CARDIOVASCULAR: No heart attacks, no heart murmur, no heart fluttering, no chest pain, no ankle swelling. LUNG DISEASE: No shortness of breath, no cough, no tuberculosis, no bloody cough, no asth ma, no emphysema/COPD. GASTROINTESTINAL: No bowel disease, no nausea or vomiting, positive for rectal bleeding, n o constipation, no stool incontinence, no liver disease, no gallbladder disease, no abdomina l pain, no ulcers. KIDNEY DISEASE: positive for urinary frequency, no painful or difficult urination, no inco ntinence. ENDOCRINE: No diabetes, no thyroid disease, no osteopenia or osteoporosis, no breast drain age. SKIN: No breast lumps, positive for skin changes, no rashes, no itches. HEMATOLOGIC/LYMPHATIC: No enlarged lymph nodes, no easy or unusual bleeding, positive for personal history of cancer. RHEUMATOLOGIC: positive for joint arthritis, no rheumatoid arthritis. PHYSICAL EXAMINATION: Blood pressure 146/81, pulse 65, resp. rate 16, height 1.753 m (5' 9"), weight 79.379 kg (1 75 lb). Body mass index is 25.84 kg/(m^2). GENERAL: Cosmo Johnson is in no acute distress with unlabored respirations. The pat iejese does not appear uncomfortable throughout the exam [...] without palpable masses. The patient is not obese. SPINE: There is no tenderness in the midline of the cervical or thoracic spine. There is n o major palpable deformity of the spine. The lumbar spine shows there is no tenderness in the midline of the lumbar levels. To palp ation, there is no signficant bilaterally myofascial tenderness. EXTREMITIES: No cyanosis, clubbing, or edema. Distal pulses are palpable. NEUROLOGICAL EXAM: MENTAL STATUS: The patient is awake, alert, and oriented. He follows simple and complex commands. He speech is fluent, his comprehends speech well, and his repeats well. He has no apparent deficits with short or director long term care memory. CRANIAL NERVES: II: [...] Intrinsics 5 5 Ulnar Intrinsics 5 5 Back Tender Fourdrinier Strength 5 5 Hip Flexion 5 5 Hip Extension 5 5 Knee Flexion 5 5 Knee Extension 5 5 Dorsiflexion 5 5 Extensor Hallicus Longus 5 5 Plantarflexion 5 5 SENSORY EXAM: patient has decreased sensation to light touch lateral portion of his thigh REFLEXES: (2 OR 2+ IS NORMAL) REFLEX: RIGHT LEFT BICEPS 2 2 BRACHIORADIALIS 2 2 TRICEPS 2 2 PATELLAR 2 2 ACHILLES 2 2 LAUREN'S ABSENT ABSENT PLANTAR DOWNGOING DOWNGOING GAIT: Gait is steady. PERIPHERAL NERVE/MISC: Straight leg raise is negative bilaterally. Jonathan's test of the hips is negative bilaterally. RADIOGRAPHIC REVIEW: The patient's imaging was reviewed in detail with the patient today during the visit. The images show progressive spondylosis. He has increased stenosis at L3-4 and a spondylolisthe sis. He also has progressive disc bulge at L4-5. ASSESSMENT: NEUROSURGICAL DIAGNOSES: Encounter Diagnoses Name Primary? DDD (degenerative disc disease), lumbar Yes Spondylolisthesis of lumbar region Facet arthropathy, lumbar Lumbar radicular pain GENERAL DIAGNOSES: Past Medical History Diagnosis Date High cholesterol Rectal cancer PLAN: It was a pleasure meeting and evaluating this patient today, and I greatly appreciate the r marin. The patient has lumbar spondylosis that has been slowly progressive. I had a lengthy discussion with the patient about his options for care including surgical a nd non-surgical options. I recommended at least one trial of injections before consider osorio edilma again. He agreed but was concerned he might eventually need surgery. This is a possib ility but I am really hoping to help him with the injection and get a durable result. I would be happy to see him back if he fails to improve. [facility] and I spent 1 hour in visit with Cosmo Johnson today with the majority of time spent counselling the patient on his diagnosis, options for his care, and coordinating his care. ELECTRONICALLY SIGNED BY: [facility] PA-C, and Kemal Damian M.D. 06/09/2013 12:17 documented in this encou nter Plan of [...]
--- OUTSIDE RECORDS SUMMARY | ~2019-11-22 | XMS | Encounter Summary ---
Demographics + + + | Address | [address] | | | [place] [address] | + + + | Home Phone [...] Team Providers + +------+ + | Care Landscape Laborer Name | Role | Phone | + +------+ + PCP | Unavailable | + +------+ + Encounter Details +--------+ + + + + | Date | Type | Department | Care Team | Description | +--------+ + + + + | 06/16/ | Hospital | [facility] | | | | 2009 - | Encounter | [facility] | | | | | | CENTER [address] | | | | 07/14/ | | [place] | | | | 2009 | | [address] | | | | | | [phone] | | | +--------+ + + + [...]
--- OUTSIDE RECORDS SUMMARY | ~2019-11-22 | XMS | Encounter Summary ---
Demographics + + + | Address | [address] | | | [place] [address] | + + + | Home Phone [...] + | Ricarda Johnson | ECON | [address] | | | | | [place] | | | | | [address] | | + + + + + Care Team Providers + +------+ + | Care 3D Artist Name | Role | Phone | + +------+ + | Hay Greco MD | PCP | | + +------+ + Reason for Visit + + + | Reason | Comments | + + + | Medication | Pt thinks he may be having an allergic rxn to Doxycycline | | management | | + + + Encounter Details +--------+ + + + + | Date | Type | Department | Care Team | Description | +--------+ + + + + | 10/23/ | Telephone | Infectious | Rona Kulkarni | Medication | | 2011 | | [facility] | [facility]UNI Pace [address] | management (Pt | | | | [address] | [address] | thinks he may be | | | | [facility] | [place], [place] | having an allergic | | | | [place], [address] floor | [address] | rxn to Doxycycline) | | | | [facility] [place] | [phone] | | | | | [address] | | | | | | [phone] | | | +--------+ + + + [...]
--- OUTSIDE RECORDS SUMMARY | ~2019-11-22 | XMS | Encounter Summary ---
Demographics + + + | Address | [address] | | | [place] [address] | + + + | Home Phone | | + + + | Preferred Language | Unknown | + + + | Marital Status | | + + + | Pentecostalism Affiliation | PRE | + + + | Race | White | + + + | Ethnic Group | Not or | + + + Author + + + | Author | [facility] | + + + | Organization | [facility] | + + + | Address | Unknown | + + + | Phone | Unavailable | + + + Support + + + + + | Name | Relationship | Address | Phone | + + + + + | Ricarda Johnson | ECON | [address] | | | | | [place] | | | | | [address] | | + + + + + Care Team Providers + +------+ + | Care Manager Bench Name | Role | Phone | + [...] | Required | | tumor | [place] | [address] | | | | | Procedures | SURGICAL | [address] | | | | | CONSULT TO | CLINIC [address] | Mailcode: | | | | | COLORECTAL | [address] | [facility] | | | | | SURGERY | AVE | Health and | | | | | | [place], | Healing, | | | | | | [place] [address] | Building [address] | | | | | | Phone: | [place], [place] | | | | | | [phone] | [address] | | | | | | Fax: | Phone: | | | | | | [phone] | [phone] | | | | | | | Fax: | | | | | | | [phone] | +--------+ + + + + + [...] | | | | Mailcode: Center | [place], [place] | | | | | [facility] and | [address] | | | | | [facility] | [phone] | | | | | [place], [place] | | | | | | [address] | | | | | | [phone] | | | +--------+---------+ + + + [...] - 07/25/2010 9:17 AM PSTPATIENT SURGERY INFORMAT [facility] General Surgery Office Toll-free: , request [facility] Surgery Date: 07/26/2010 Procedure: Low anterior resection with total mesorectal excision and temporary diverting il eostomy Surgeon Name: Philipp Hampton MD DIRECTIONS FOR SURGERY DIET You should have clear liquids only for the entire day prior to surgery, no solid food. Vandana r liquids include anything you can see through, like water, shirley cinthya, lemon-mille lacs soft drin ks, apple juice, tea, Gatorade/sports [...] number may refer you to the hospital straw hat plunger operator ); please ask to speak to the general surgery resident scout professional sports for Dr Hampton. MEDICATIONS You may take [...] e. Smoking is not allowed on the [facility] campus. If you are a [...] anyone by 3:00 PM please call for [id number]. PARKING Parking for patients and visitors is available in the [facility] Parking structure located across from the emergency [...] Please notify the general surgery office at [phone] as soon as possible should you nee [...] prior to your surgery. PRODUCTS CONTAINING ASPIRIN Azalea-Pelham, Anacin, Anexsia with Codeine, Andynos, Aspirin, Aspirin suppositories, Ascrip tin, Aspergum, Axotal, B-A-C, Baby Aspirin, Chikis, BC Powder, Bexophene, Buffaprin, Bufferin , Buffinol, Cama-Arthritis Strength, Congespirin, [place], Coricidin, Damason, Darvon, Dristan, Zenobia-Gesic, Digel, Dolprin #3 Tablets, Donatab, Doxaphene, Duragesic, Easprin, Ecotrin, Emag rin Forte, Emiprin, Emprazil, Equagesic, Equazine M, Excedrin, Fiogesic, Fiorgen PH, Fiorice t, Fiorinal, 4-Way Cold Tablet Gemnisyn, Indocin, Liquprin, Lortab ASA, Magnaprin, Marnal, Meprobamate, Midol, Momentum, N orgesic, Mineral Ridge, Orphengesic, Pabalate, P-A-C, Percodan, Presalin, Robaxasil, Roxiprin, Sathya eto, Salocol SK-65 Compound, Sine-Aid, Sine-Off,, Dale, Supac, Talwin Compound, Trigesic, Tolectin , Traiminicin, Vanquish, ZORprin, Zomax PRODUCTS CONTAINING IBUPROFEN Advil, Aleve, Haltran, Medipren, Midol, Motrin, Naproxyn, Nuprin, Rufen OTHER PRODUCTS WHICH MAY PROMOTE BLEEDING Vitamin E, Gingko Biloba, Marine Fatty Acids, [place]-3 Fish Oil Supplements Registration Process for all [...] ostomy was reviewed as a last resort. 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
--- OUTSIDE RECORDS SUMMARY | ~2019-11-22 | XMS | Encounter Summary ---
Demographics + + + | Address | [address] | | | [place] [address] | + + + | Home Phone [...] + | Ricarda Johnson | ECON | [address] | | | | | [place] | | | | | [address] | | + + + + + Care Team Providers + +------+ + | Care Industrial Relations Analyst Name | Role | Phone | + +------+ + | Hay Greco MD | PCP | | + +------+ + Encounter Details +--------+ + + + + | Date | Type | Department | Care Team | Description | +--------+ + + + + | 04/07/ | Hospital | Dermatopathology | | | | 2011 | Encounter | [address] | | | | | | Mailcode: [id number] | | | | | | [facility] | | | | | | and Healing, | | | | | | Building [address], | | | | | | Floor [place], [place] | | | | | | [address] | | | | | | [phone] | | | +--------+ + + + [...] + + + +---------+ + + | Ayden-3 Fatty | Take by mouth. | | [...] | | | | | | skin [id number]. The | | | | | | [...] [facility] | Mailcode CH5D [address] | [place] [address] | | | DERMATOPATHOLOGY | [address] | | | + + + + + documented in this encounter Visit Diagnoses Not on filedocumented in this encounter
--- OUTSIDE RECORDS SUMMARY | ~2019-11-22 | XMS | Encounter Summary ---
Demographics + + + | Address | [address] | | | [place] [address] | + + + | Home Phone | | + + + | Preferred Language | Unknown | + + + | Marital Status | | + + + | Cheondoism Affiliation | 1077 | + + + | Race | Unknown | + + + | Ethnic Group | Unknown | + + + Author + + + | Author | [facility] | | | and [place] | + + + | Organization | [facility] | | | [...] Team Providers + +------+ + | Care Registered Pharmacy Technician Name | Role | Phone | + +------+ + | Aldo Frank DO | PCP | | + +------+ + Encounter Details +--------+ + + + + | Date | Type | Department | Care Team | Description | +--------+ + + + + | 06/09/ | Preadmit | [facility] | Geraldo Bass | DDD (degenerative | | 2019 | Visit | [facility] | MD Farhat [address] | disc disease), | | | | CLINIC [address] | [address] [place] | lumbar; | | | | [place], [place] | [place] [address] | Spondylolisthesis of | | | | [address] | [phone] | lumbar region; High | | | | [phone] | | cholesterol; 1st | | | | | | degree AV block | +--------+ + + + + Social [...] + | CBC WITH | Routin | 06/09/2019 | DDD (degenerative | Results for this | | DIFFERENTIAL | e | 12:59 PM | disc disease), | procedure are in the | | | | PST | lumbar | results section. | | | | | Spondylolisthesis of | | | | | | lumbar region High | | | | | | cholesterol 1st | | | | | | degree AV block | | + +--------+ + + + | BASIC METABOLIC | Routin | 06/09/2019 | DDD (degenerative | Results for this | | PANEL | e | 12:59 PM | disc disease), | procedure are in the | | | | PST | lumbar | results section. | | | | | Spondylolisthesis of | | | | | | lumbar region High | | | | | | cholesterol 1st | | | | | | degree AV block | | + +--------+ + + + | ECG 12 LEAD | Routin | 06/09/2019 | DDD (degenerative | Results for this | | | e | 12:54 PM | disc disease), | procedure are in the | | | | PST | lumbar | results section. | | | | | Spondylolisthesis of | | | | | | lumbar region High | | | | | | cholesterol 1st | | | | | | degree AV block | | + +--------+ + + + documented in this encounter Results Basic Metabolic Panel (06/09/2019 12:59 PM PST) + + + + + + | Component | Value | Ref Range | Performed | Pathologist | | | | | At | Signature | + + + + + + | Na | 140 | 136 - 145 | [facility] | | | | | mmol/L | [facility] | | | | | | [facility] | | | | | | C[facility] - | | | | | | LABORATORY | | + + + + + + | K | 4.0 | 3.4 - 5.1 | [facility] | | | | | mmol/L | [facility] | | | | | | MED[facility] | | | | | | CENTER - | | | | | | LABORATORY | | + + + + + + | Cl | 107 | 98 - 107 mmol/L | [facility] | | | | | | [facility] | | | | | | MEDICAL | | | | | | CENTER - | | | | | | LABORATORY | | + + + + + + | CO2 | 22 | 20 - 31 mmol/L | [facility] | | | | | | [facility] | | | | | | MEDICAL | | | | | | CENTER - | | | | | | LABORATORY | | + + + + + + | Anion Gap | 11 | 3 - 16 mmol/L | [facility] | | | | | | [facility] | | | | | | MEDICAL | | | | | | CENTER - | | | | | | LABORATORY | | + + + + + + | Glucose | 89 | 60 - 106 mg/dL | [facility] | | | | | | [facility] | | | | | | [facility]ICAL | | | | | | CENTER - | | | | | | LABORATORY | | + + + + + + | BUN | 23 | 9 - 23 mg/dL | [facility] | | | | | | [facility] | | | | | | MEDICAL | | | | | | CENTER - | | | | | | LABORATORY | | + + + + + + | Creatinine | 1.30 | 0.70 - 1.30 | [facility] | | | | | mg/dL | [facility] | | | | | | MEDICAL | | | | | | CENTER - | | | | | | LABORATORY | | + + + + + + | eGFR if not | 54 (L)Comment: | >=60 | [facility] | | | | GLOMERULAR FILTRATION | mL/min/1.73m2 | [facility] | | | [facility] | RATE,ESTIMATED | | MEDICAL | | | | mL/min/1.45r2Ewto than | | CENTER - | | [...] + + + + | Calcium | 9.7 | 8.7 - 10.4 | [facility] | | | | | mg/dL | [facility] | | | | | | MEDICAL | | | | | | CENTER - | | | | | | LABORATORY | | + + + + + + | BUN/Creatin | 17.7 | | [facility] | | | ine [...] + | [facility] | [address] | [place] | [phone] | | [facility] | | [address] | | | - LABORATORY | | | | + + + + + CBC with Differential (06/09/2019 12:59 PM PST) + + + + + + | Component | Value | Ref Range | Performed | Pathologist | | | | | At | Signature | + + + + + + | WBC | 5.7 | 4.0 - 11.0 K/uL | [facility] | | | | | | [facility] | | | | | | [facility] | | | | | | CENTER - | | | | | | LABORATORY | | + + + + + + | RBC | 4.29 (L) | 4.30 - 5.70 | [facility] | | | | | M/uL | [facility] | | | | | | MEDICAL | | | | | | CENTER - | | | | | | LABORATORY | | + + + + + + | Hemoglobin | 13.3 (L) | 13.5 - 18.0 | [facility] | | | | | g/dL | [facility] | | | | | | MEDICAL | | | | | | CENTER - | | | | | | LABORATORY | | + + + + + + | Hematocrit | 39.2 (L) | 40.0 - 51.0 % | [facility] | | | | | | [facility] | | | | | | MEDICAL | | | | | | CENTER - | | | | | | LABORATORY | | + + + + + + | MCV | 91.4 | 83.0 - 101.0 fL | [facility] | | | | | | [facility] | | | | | | [facility]ICAL | | | | | | CENTER - | | | | | | LABORATORY | | + + + + + + | MCH | 31.0 | 28.0 - 35.0 pg | [facility] | | | | | | [facility] | | | | | | [facility]ICAL | | | | | | CENTER - | | | | | | LABORATORY | | + + + + + + | MCHC | 33.9 | 32.0 - 36.0 | [facility] | | | | | g/dL | [facility] | | | | | | MEDICAL | | | | | | CENTER - | | | | | | LABORATORY | | + + + + + + | RDW-CV | 13.6 | <15.0 % | [facility] | | | | | | [facility] | | | | | | [facility]ICAL | | | | | | CENTER - | | | | | | LABORATORY | | + + + + + + | RDW-SD | 45.9 | 35.1 - 46.3 fL | [facility] | | | | | | [facility] | | | | | | [facility]ICAL | | | | | | CENTER - | | | | | | LABORATORY | | + + + + + + | Platelet | 218 | 140 - 440 K/uL | [facility] | | | Count | | | [facility] | | | | | | MEDICAL | | | | | | CENTER - | | | | | | LABORATORY | | + + + + + + | MPV | 9.8 | 6.5 - 12.4 fL | [facility] | | | | | | [facility] | | | | | | [facility]ICAL | | | | | | CENTER - | | | | | | LABORATORY | | + + + + + + | % | 75.1 | 45.0 - 82.0 % | [facility] | | | Neutrophils | | | [facility] | | | | | | MEDICAL | | | | | | CENTER - | | | | | | LABORATORY | | + + + + + + | % | 16.2 (L) | 20.0 - 45.0 % | [facility] | | | Lymphocytes | | | [facility] | | | | | | MEDICAL | | | | | | CENTER - | | | | | | LABORATORY | | + + + + + + | % Monocytes | 6.3 | 4.0 - 12.0 % | [facility] | | | | | | [facility] | | | | | | MEDICAL | | | | | | CENTER - | | | | | | LABORATORY | | + + + + + + | % | 1.8 | 0.0 - 5.0 % | [facility] | | | Eosinophils | | | [facility] | | | | | | MEDICAL | | | | | | CENTER - | | | | | | LABORATORY | | + + + + + + | % Basophils | 0.4 | 0.0 - 1.0 % | [facility] | | | | | | [facility] | | | | | | MEDICAL | | | | | | CENTER - | | | | | | LABORATORY | | + + + + + + | % Immature | 0.2 | 0.0 - 0.4 % | [facility] | | | Granulocyte | | | [facility] | | | s | | | MEDICAL | | | | | | CENTER - | | | | | | LABORATORY | | + + + + + + | Absolute | 4.26 | 1.80 - 8.50 | [facility] | | | Neutrophils | | K/uL | [facility] | | | | | | MEDICAL | | | | | | CENTER - | | | | | | LABORATORY | | + + + + + + | Absolute | 0.92 | 0.60 - 3.20 | [facility] | | | Lymphocytes | | K/uL | [facility] | | | | | | MEDICAL | | | | | | CENTER - | | | | | | LABORATORY | | + + + + + + | Absolute | 0.36 | 0.00 - 1.00 | [facility] | [...] + + + + | Absolute | 0.02 | 0.00 - 0.10 | [facility] | | | Basophils | | K/uL | [facility] | | | | | | MEDICAL | | | | | | CENTER - | | | | | | LABORATORY | | + + + + + + | Absolute | 0.01 | 0.00 - 0.03 | [facility] | | | Immature | | K/uL | [facility] | | | Granulocyte | | | MEDICAL | | | s | | | CENTER - | | | | | | LABORATORY | | + + + + + + | % nRBC | 0 | 0 - 2 per 100 | [facility] | | | | | WBCs | [facility] | | | | | | MEDICAL | | | | | | CENTER - | | | | | | LABORATORY | | + + + + + + | Absolute | 0.00 | 0.00 - 0.01 | [facility] | | | nRBC | | K/uL | [facility] | [...] | [address] | [place] | [phone] | | [facility] | | [address] | | | - LABORATORY | | | | + + + + + ECG 12 lead (06/09/2019 12:54 PM PST) + + + + + + | Component | Value | Ref Range | Performed | Pathologist | | | | | At | Signature | + + + + + + | VENTRICULAR | 61 | BPM | [facility] | | | RATE EKG | | | | | + + + + + + | ATRIAL RATE | 61 | BPM | [facility] | | + + + + + + | P-R | 220 | ms | [facility] | | | INTERVAL | | | | | + + + + + + | QRS | 86 | ms | [facility] | | | DURATION | | | | | + + + + + + | Q-T | 422 | ms | [facility] | | | INTERVAL | | | | | + + + + + + | Q-T | 424 | ms | [facility] | | | INTERVAL | | | | | | (CORRECTED) | | | | | + + + + + + | P WAVE AXIS | 69 | degrees | [facility] | | + + + + + + | QRS AXIS | 50 | degrees | [facility] | | + + + + + + | T AXIS | 24 | degrees | [facility] | | + + + + + + | INTERPRETAT | Sinus rhythm with 1st | | [facility] | | | ION TEXT | degree AV blockOtherwise | | | | | | normal ECGWhen compared | | | | | | with ECG of 04-JUN-2017 | | | | | | 14:05,No significant | | | | | | change was | | | | | | foundConfirmed by | | | | | | BALJINDER BLUE MD ([id number]) | | | | | | on 06/10/2019 8:41:02 AM | | | | | | [...] region Acquired spondylolisthesis | + + | High cholesterol Pure hypercholesterolemia | + + | 1st degree AV block First degree atrioventricular block | + + documented in this encounter"
--- OUTSIDE RECORDS SUMMARY | ~2019-11-22 | XMS | Encounter Summary ---
Demographics + + + | Address | [address] | | | [place] [address] | + + + | Home Phone | | + + + | Preferred Language | Unknown | + + + | Marital Status | | + + + | Mu-Ism Affiliation | 1077 | + + + | Race | Unknown | + + + | Ethnic Group | Unknown | + + + Author + + + | Author | [facility] | | | and [place] | + + + | Organization | [facility] | | [...] Team Providers + +------+ + | Care Community Health Planning Director Name | Role | Phone | [...] | Lumbar | [place], | [address] | | | | | radiculopath | Pj T, MD | [place], | | | | | y | [address] | [place] | | | | | Procedures | [place] | [address] | | | | | [place] INJECT | [place], [place] | Phone: | | | | | ANES/STEROID | [address] | [phone] | | | | | FORAMEN | Phone: | Fax: | | | | | LUMBAR/SACRA | [phone] | [phone] | | | | | L W IMG | Fax: | | | | | | GUIDE ,1 | [phone] | | | | | | [place] | | | | | | | [...] + + | 04/03/ | Hospital | [facility] | Lilli, | Lumbar radicular | | 2017 | Encounter | MED CTR XRAY [address] | [address] | pain; | | | | [place] | [address] | Spondylolisthesis of | | | | [place] [address] | [place] [address] | lumbar region; DDD | | | | [phone] | [phone] | (degenerative disc | | | | | | disease), lumbar; | | | | | [place] | Lumbar spinal | | | [...] M54.16 Cosmo Johnson presents to the | [facility] | | fluoroscopy suite for fluoroscopically-guided [...] [address] | [place] | [phone] | | [facility] | | [address] | | | - IMAGING | | [...]
--- OUTSIDE RECORDS SUMMARY | ~2019-11-22 | XMS | Clinical Summary ---
Demographics + + + | Address | [address] | | | [place] [address] | + + + | Home Phone | | + + + | Preferred Language | Unknown | + + + | Marital Status | | + + + | Advent Affiliation | PRE | + + + | Race | White | + + + | Ethnic Group | Not or | + + + Author + + + | Author | [facility] | + + + | Organization | [facility] | + + + | Address | Unknown | + + + | Phone | Unavailable | + + + Support + + + + + | Name | Relationship | Address | Phone | + + + + + | Ricarda Johnson | ECON | [address] | | | | | [place] | | | | | [address] | | + + + + + Care Team Providers + +------+ + | Care Sediment Remediation Consultant Name | Role | Phone | + +------+ + | Hay Greco MD | PCP | | + +------+ + Source Comments ANGELINA is fully live on both [facility] and [facility] InPatient.[facility] & On license of [facility] Allergies + + + + + + | Active Allergy | Reactions | Severity | Noted | Comments | | | | | Date | | + + + + + + | Chlorhexidine | Hives | High | 10/31/19 | From skin prep. | | | | | 12 | | + + + + + + | Doxycycline | Rash | Medium | 10/30/19 | | | | | | 12 | | + + + + + + Medications + + + +---------+------+------+-------+ | Medication | Sig | Dispensed | Refills | Star | End | Statu | | | | | | t | Date | s | | | | | | Date | | | + + + +---------+------+------+-------+ | GLUC NASH/CHONDRO NASH | Take by mouth once | | 0 | 08/15 | | Activ | | A/VIT C/MN | daily. | | | 0 | | e | | (GLUCOSAMINE | | | | 11 | | | | CHONDROITIN MAXSTR | | | | | | | | ORAL) | | | | | | | + + + +---------+------+------+-------+ | multivitamin Oral | Take 1 Cap by mouth | | 0 | | | Activ | | Capsule | once daily. | | | | | e | + + + +---------+------+------+-------+ | [place]-3 Fatty | Take by mouth. | | 0 | | | Activ | | Acids-Vitamin E | | | | | | e | | (FISH OIL) 1,000 mg | | | | | | | | Oral Capsule | | | | | | | + + + +---------+------+------+-------+ | | Take by mouth. | | 0 | | | Activ | | ASPIRIN/ACETAMINOPHE | | | | | | e | | N/CAFFEINE (EXCEDRIN | | | | | | | | MIGRAINE ORAL) | | | | | | | + + + +---------+------+------+-------+ | dicloxacillin 500 | Take 1 Cap by mouth | 120 Cap | 3 | 04/1 | | Activ | | mg Oral Capsule | four times daily. | | | 1/20 | | e | | | | | | 12 | | | + + + +---------+------+------+-------+ | oxyCODONE, | Take 1-3 Tabs by | 100 Tab | 0 | 04/2 | | Activ | | immediate release, 5 | mouth every three | | | 1/20 | | e | | mg Oral Tablet | hours as needed. | | | 12 | | | + + + +---------+------+------+-------+ Active Problems + + + | Problem | Noted Date | + + + | Encounter for long-term (current) use of antibiotics | 09/05/2011 | + + + | MSSA (methicillin susceptible Staphylococcus aureus) septicemia | 08/06/2011 | + + + | Left hip pain | 08/06/2011 | + + + | Fracture of sacrum | 08/06/2011 | + + + | Transaminitis | 08/06/2011 | + + + | JERRICA (acute kidney injury) | 08/06/2011 | + + + | HTN (hypertension) | 08/06/2011 | + + + | Chest pain | 08/06/2011 | + + + | Anemia | 08/06/2011 | + + + | Bacteremia | 08/01/2011 | + + + | Malignant neoplasm of rectum | 05/30/2010 | + + + + + | Cancer Staging: Clinical: Stage IIIB (T3, N1, M0) - Signed by | | Edgar Hampton MD on 10/29/2011Pathologic: Stage IIIB (T0, N0, | | cM0) - Signed by Edgar Hampton MD on 10/29/2011 | + + + +---+ | Hyperlipidemia | | + +---+ + + | Overview: 10 years on lipitor | + + Immunizations + + + + | Name | Administration Dates | Next Due | + + + + | Pneumococcal 23 | 08/04/2011, 07/27/2006 | | + + + + Family History + + +------+ + | Medical History | Relation | Name | Comments | + + +------+ + | Heart Disease | Father | | d. [place] | + + +------+ + | Heart Disease | Mother | | d. CHF | + + +------+ + + +------+--------+ [...] recent travel history available. | + + Last Filed Vital Signs + [...] | | + + + + + Plan of Treatment + + + + + | Health Maintenance | Due Date | Last Done | Comments | + + + + + | Pneumococcal | | 08/04/2011, 07/27/2006 | | | vaccination (2 of 2 | 3 | | | | - PCV13) | | | | + + + + + | Influenza (Flu) | | | | | vaccination (#1) | 9 | | | + + + + + Results Not on filefrom Last 3 Months Insurance + +--------+ +--------+ + +--------+ | Payer | Benefi | Subscriber | Effect | Phone | Address | Type | | | t Plan | ID | franko | | | | | | / | | Dates | | | | | | Group | | | | | | + +--------+ +--------+ + +--------+ | [employer] | FIRST | xxxxxxxxx | 01/13/20 | | | PPO | | | CHOICE | | 04-Pre | | | | | | | | sent | | | | | | HEALTH | | | | | | + +--------+ +--------+ + +--------+ | MEDICARE | MEDICA | xxxxxxxxxx | | [phone] | [address] | | | [address] & | | [phone] | | | [address] | | esent | | [place] | | | | | | | | [phone] | | + +--------+ +--------+ + +--------+ + +--------+ +--------+ + + | Guarantor Name | Accoun | Relation to | Date | Phone | Billing Address | | | t Type | Patient | of | | | | | | | | | | + +--------+ +--------+ + + | Cosmo Johnson | Person | Self | [birth year] | [address] | | | al/Fam | | 1945 | [phone] | [address] [place], [place] | | | aye | | | [address] (Home) | [address] | + +--------+ +--------+ + + Advance Directives + + + + + | Code Status | Date | Date | Comments | | | Activated | Inactivated | | + + + + + | Full Code | 10/31/2011 | 11/03/2011 | | | | 4:23 PM | 6:05 PM | | + + + + + + + + +---+ | | | | | + + + +---+ | Full Code | 10/31/2011 | 10/31/2011 | | | | 6:32 AM | 4:23 PM | | + + + +---+ + + + +---+ | | | | | + + + +---+ | Full Code | 10/29/2011 | 10/29/2011 | | | | 12:27 PM | 8:11 PM | | + + + +---+ + + + +---+ | | | | | + + + +---+ | Full Code | 08/02/2011 | 08/09/2011 | | | | 12:00 PM | 8:37 PM | | + + + +---+ + + + +---+ | | | | | + + + +---+ | Full Code | 08/01/2011 | 08/02/2011 | | | | 4:30 PM | 12:00 PM | | + + + +---+
--- OUTSIDE RECORDS SUMMARY | ~2019-11-22 | XMS | Encounter Summary ---
Demographics + + + | Address | [address] | | | [place] [address] | + + + | Home Phone | | + + + | Preferred Language | Unknown | + + + | Marital Status | | + + + | Pentecostalism Affiliation | 1077 | + + + [...] Team Providers + +------+ + | Care Internal Medicine Nurse Name | Role | Phone | [...] | Changes | NEUROSURGERY [address] | Pharmacy Picking Technician | | | | | [address] | | | | | | [place] | | | | | | [phone] | | | | | | [phone] | | | +--------+ + + + [...]
--- OUTSIDE RECORDS SUMMARY | ~2019-11-22 | XMS | Clinical Summary ---
Demographics + + + | Address | [address] | | | [place] [address] | + + + | Home Phone | | + + + | Preferred Language | Unknown | + + + | Marital Status | | + + + | Temple Affiliation | PRE | + + + | Race | White | + + + | Ethnic Group | Not or | + + + Author + + + | Author | [facility] | + + + | Organization | [facility] | + + + | Address | Unknown | + + + | Phone | Unavailable | + + + Support + + + + + | Name | Relationship | Address | Phone | + + + + + | Ricarda Johnson | ECON | [address] | | | | | [place] | | | | | [address] | | + + + + + Care Team Providers + +------+ + | Care Malt House Kiln Operator Name | Role | Phone | + +------+ + | Hay Greco MD | PCP | | + +------+ + Source Comments ANGELINA is fully live on both [facility] and [facility] InPatient.[facility] Allergies + + + + + [...] e | + + + +---------+------+------+-------+ | [place]-3 Fatty | Take by mouth. | | [...] Heart Disease | Father | | d. CT | + + +------+ + | Heart [...] | | | | | | | [address] | | + +--------+ +--------+ + +--------+ + +--------+ +--------+ + + | Guarantor Name | Accoun | Relation to | Date | Phone | Billing Address | | | t Type | Patient | of | | | | | | | | | | + +--------+ +--------+ + + | Cosmo Johnson | Person | Self | [birth year] | [address] | | | al/Fam | | 1945 | [phone] | [address] [place], [place] | | | aye | | | [address] (Home) | [address] | + +--------+ +--------+ + + Advance [...]
--- OUTSIDE RECORDS SUMMARY | ~2019-11-22 | XMS | Encounter Summary ---
Demographics + + + | Address | [address] | | | [place] [address] | + + + | Home Phone | | + + + | Preferred Language | Unknown | + + + | Marital Status | | + + + | Mandaen Affiliation | [phone] | + + + [...] Providers + +------+ + | Care Director Agency & Strategic Partnerships Name | Role | Phone | + +------+ + PCP | Unavailable | + +------+ + Encounter Details +--------+ + + + + | Date | Type | Department | Care Team | Description | +--------+ + + + + | 08/04/ | Hospital | [facility] | | | | 2009 | Encounter | MED CTR XRAY [address] | | | | | | [address] [place] | | | | | | [place] [address] | | | | | | [phone] | | | +--------+ + + + [...]
--- OUTSIDE RECORDS SUMMARY | ~2019-11-22 | XMS | Encounter Summary ---
Demographics + + + | Address | [address] | | | [place] [address] | + + + | Home Phone [...] + | Ricarda Johnson | ECON | [address] | | | | | [place] | | | | | [address] | | + + + + + Care Team Providers + +------+ + | Care Databases Software Consultant Name | Role | Phone | + +------+ + | Hay Greco MD | PCP | | + +------+ + Encounter Details +--------+ + + + + | Date | Type | Department | Care Team | Description | +--------+ + + + + | 10/11/ | [facility] | Infectious | Silvia Jackson, | | | 2011 | | [facility] | [address] | | | | | [address] | [address] | | | | | [address] [facility] | [place] [address] | | | | | Brian, [address]rd floor | [phone] | | | | | [place], [place] | | | | | | [address] | | | | | | [phone] | | | +--------+ + + + [...]
--- OUTSIDE RECORDS SUMMARY | ~2019-11-22 | XMS | Encounter Summary ---
Demographics + + + | Address | [address] | | | [place] [address] | + + + | Home Phone [...] Team Providers + +------+ + | Care Performance Improvement Coordinator Name | Role | Phone | [...] TRANSFORAMINAL | | | | [address] | [place] [address] | LUMBAR INTERBODY | | | | [place], [place] | [phone] | FUSION | | | | [address] | | | | | | [phone] | | | +--------+---------+ + + + [...] be sent through Care Everywhere.BACK EXERCISES, LUMBAR (TOGOLESE)AFTER BACK SURGERY: GOING HOME (TOGOLESE)CONSTIPATION (ADULT) (TOGOLESE)docum ented in this encounter Medications at Time [...] might be different from t he original. [facility] PROGRESS NOTE Pt. Name/Age/: Cosmo Johnson 68 y.o. 1945 Med. Record Number: [id number] Date of admission: 10/22/2013 Subjective: The patient [...] signed by: Kemal Damian, 10/24/2013 9:58 [facility] Kirk Lamar PA - 10/23/2013 7:28 AM PDT [facility] PROGRESS NOTE Pt. Name/Age/: Cosmo Johnson 68 y.o. 1945 Med. Record Number: [id number] Date of admission: 10/22/2013 Subjective: The patient [...] signed by: Kirk Javier, 10/23/2013 7:28 [facility] Tierra Veliz RN - 10/22/2013 12:15 [...] | | Lateral | | e | ([facility]) High | | | | | | [...] spinal fusion hardware at the level of M2tlmhyme L4 is noted, with disc | | [...] | There is decreased disc height at U26-Y2xmr L4-5, and posteriorly at L5-S1.IMPRESSION | | [...] + + | Performing | Address | City[facility] Phone Number | | Organization | | | | + +---------+ + + | MISCELLANEOUS LAB | | | [phone] | + +---------+ + + | MISCELANIOUS LAB | | | [phone] | + +---------+ + + [place] C-[facility] [...] + | [facility] | [address] | [place], [place] | [phone] | | [facility] | | [address] | | | - LABORATORY | | | | + + + + + | [facility] | [address] | [place], [place] | | | [facility] | | [address], [facility] | | | - [...] not | 49 (L)Comment: | >=60 | [facility] | | | | GLOM[facility] FILTR[facility] | mL/min/1.73m2 | [facility] | | | FIJIAN | RATE,ESTIMATED | | MEDICAL | | | | mL/min/1.57m7Hdar than | | CENTER - | | [...] [address] | [place] | [phone] | | [facility] | | [address] | | | - LABORATORY | | | | + + + + + | [facility] | [address] | [place], [place] | | | [facility] | | [address] | | | - LABORATORY [...] mLs | | Surgical | | 1:200,000 0.5-1:691630 % | | 14 9:08 | | | Site | | injection PRN, Starting Josefa | | AM PDT | | | | | 10/22/13 at 0908, Intra-op | | | | | | + +--------+ +--------+------+ + +---+---+ | | | +---+---+ documented in this encounter
--- OUTSIDE RECORDS SUMMARY | ~2019-11-22 | XMS | Encounter Summary ---
Demographics + + + | Address | [address] | | | [place] [address] | + + + | Home Phone | | + + + | Preferred Language | Unknown | + + + | Marital Status | | + + + | Confucianism Affiliation | PRE | + + + [...] + | Ricarda Johnson | ECON | [address] | | | | | [place] | | | | | [address] | | + + + + + Care Team Providers + +------+ + | Care Allocation Analyst Name | Role | Phone | + +------+ + | Hay Greco MD | PCP | | + +------+ + Reason for Visit AUTH/CERT +--------+--------+ + + + + | Status | Reason | Specialty | Diagnoses / | Referred By | Referred To | | | | | Procedures | Contact | Contact | +--------+--------+ + + + + | Closed | | Adult Acute | | | [facility] | | | | Care | | | Adult Onc | | | | | | | [address] | | | | | | | | | | | | | | Mailcode: | | | | | | | [id number] | | | | | | | [place] | | | | | | | [place], [place] | | | | | | | [address] | | | | | | | Phone: | | | | | | | [phone] | | | | | | | Fax: | | | | | | | [phone] | +--------+--------+ + + + + Encounter Details +--------+ + + + + | Date | Type | Department | Care Team | Description | +--------+ + + + + | 07/26/ | Hospital | [facility] [address] | Edgar Hampton, | | | 2010 - | Encounter | [address] Mailcode: | [address] | | | | | [address] | [address] | | | 07/30/ | | [place], | [place], [place] | | | 2010 | | [place] [address] | [address] | | | | | [phone] | [phone] | | | | | | | [...] + + + | Blood Pressure | 118/75 | 07/30/2010 10:32 AM | | | | | PST | | + + + + + | Pulse | 67 | 07/30/2010 10:32 AM | | | | | PST | | + + + + + | Temperature | 36.9 C (98.4 F) | 07/30/2010 7:24 AM | | | | | PST | | + + + + + | Respiratory Rate | 16 | 07/30/2010 7:24 AM | | | | | PST | | + + + + + | Oxygen Saturation | 97% | 07/30/2010 10:32 AM | | | | | PST | | + + + + + | Inhaled Oxygen | - | - | | | Concentration | | | | + + + + + | Weight | 85 kg (187 lb 6.3 | 07/26/2010 11:55 AM | | | | oz) | PST | | + + + + + | Height | 175.3 cm (5' 9") | 07/26/2010 11:55 AM | | | | | PST | | + + + + + | Body Mass Index | 27.67 | 07/26/2010 11:55 AM | | | | | PST | | + + + + + documented in this encounter Discharge Summaries Olive Clark MD - 07/30/2010 11:31 AM PSTFormatting of this note might be differe nt from the original. INPATIENT PHYSICIAN DISCHARGE SUMMARY Author: OLIVE CLARK MD Attending Physician: Edgar Hampton MD PCP: Marly Greco MD Admission Date: 07/26/2010 Discharge Date: 30 Jul 2010 Diagnoses Principal Final Diagnosis: 1. Rectal cancer Additional Diagnoses Post-operative urinary retention Procedures 1. Low anterior resection with stapled coloproctostomy, diverting ileostomy Brief Hospital Course 1. Mr. Johnson is a 65 yo male with rectal cancer who was admitted on 112/ for the abov e stated procedure. He underwent the operation without complication. Post-operatively, he was transferred to the floor in stable condition. His diet was advanced as per the usual ro utine, and he was transitioned to oral pain medications as tolerated. After his Delgado cal ter was removed, he had high post-void residuals, and so his catheter was replaced on POD#2. On POD#3, a rash was noted on his torso, limited to the areas that had been covered with c hlorhexidine prep intraoperatively. The pruritis from his rash was treated with atarax. He was discharged on POD#4 with good ostomy output, tolerating a regular diet and with pain we ll controlled. His Delgado was removed prior to discharge after a fill and pull demonstrated resolution of his urinary retention. Drains were removed prior to discharge and the patient was ambulation independently. Medications: Current Discharge Medication List START taking these medications hydrOXYzine 10 mg Oral Tablet Take 1 Tab by mouth every six hours as needed for itching. Indications: Allergic Dermatiti s loperamide 2 mg Oral Capsule Take 2 Caps by mouth every eight hours as needed (for ostomy output >500mL q shift). Check ostomy output every 8 hours. Take 2 caps if output is more than 500mL in that time. Qty: 100 Cap Refills: 0 oxyCODONE, immediate release, 5 mg Oral Tablet Take 1-3 Tabs by mouth every four hours as needed for moderate pain and severe pain. Qty: 100 Tab Refills: 0 CONTINUE these medications which have CHANGED acetaminophen 325 mg Oral Tablet Take 1-2 Tabs by mouth every four hours as needed (headache). Do not exceed 4gm of Tylenol in 24 hours. Qty: 100 Tab Refills: 0 eiegeyx-byyzdabfasktm-sizidcdz (EXCEDRIN) 250-250-65 mg Oral Tablet Take 1 Tab by mouth every four hours as needed. Do not take additional tylenol if you are using this medication. Total tylenol (acetaminophen) should not exceed 4gm per day. Qty: 100 Tab Refills: 0 CONTINUE these medications which have NOT CHANGED atorvastatin (LIPITOR) 80 mg Oral Tablet Take 80 mg by mouth once daily. Diet Regular Activity Restrictions: 1. No heavy lifting > 10lbs for 4 weeks 2. No driving for 10 days, while on narcotics 3. No tub bath, hot tubs or swimming for 6 weeks 4. May shower 5. Follow abdominal precautions HOB Position 30 Degrees Other Discharge Orders and Instructions Please measure the output from your ostomy every 8 hours. If the output is more than 500 m L in that time, take 2 Imodium. Please also monitor your urine output. Your urine should b e light yellow. If it becomes dark, or the amount of urine you are making is less than the output of your ostomy, please contact the surgical team at the numbers listed below. When to Call the Doctor - If your incision becomes red, swollen, or has any bloody or pus-like drainage. - If you have a fever of 101.5 F or greater or if you have chills - If you have increased pain, unrelieved by your pain medications - If you have persistent nausea, vomiting, diarrhea, or no bowel movement for more than 2 d ays after discharge from the hospital - If you develop any unusual signs or symptoms. - If you have any questions or concerns. When to Call the Doctor - You may contact your doctor Saturday through Saturday during the day time hours by calling [facility] surgery office at [phone] - After hours, weekends and holidays, you may call the hospital cloth washer operator at [phone] an d have the outbound sales consultant Green Team for general surgery paged. Destination: Destination: Home Condition on Discharge Good Discharge Follow Up Provider and Clinic: Dr. Hampton in the Colorectal Surgery clinic. Appointment: Please call clinic at to make an appointment for 4 weeks from now. Please schedule a follow-up appointment with your primary care physician in the next week. Vitals on discharge: Ht 175.3 cm (5' 9")( < 3 %ile), Wt 85 kg (187 lbs 6.3 oz)( < 3 %ile), BP 118/75, Pulse 67, Temperature 36.9 C (98.4 F), RR 16, SpO2 97%, BMI 27.67 kg/(m^2). Outstanding labs/studies: None Discharging Physician: OLIVE CLARK MD Attending Physician: Edgar Hampton MD documented in this e ncounter Discharge Instructions Instructions Dayna Moscoso RN - 07/30/2010INPATIENT NURSE ORDER FOR DISCHARGE A ND INTERDISCIPLINARY INSTRUCTIONS DISCHARGE DATE: 07/30/2010 PATIENT EDUCATION: Patient given the following printed education materials: ileostomy pack et from [facility] nurses Review with patient/family: Understanding of disease/injury/surgical repair N/A Signs/symptoms that they should report Yes Understanding of medications and side effects Yes Activity and diet instructions Yes Follow-up appointments Yes Any concerns/fears Yes Smoking Cessation Counseling/Information was given on admission. Additional Instructions: (ex: daily weights, wound care, tube feeding, trach care, CBG josue toring etc). Drink plenty of fluids to maintain light colored urine. If your ileostomy outpu t seems greater than your urine output you may be dehydrated, so drink fluids. Personal Effects/Medications: Sent home with patient Discharged Via: Wheelchair Mode of Transportation: Car Accompanied by: Family/Responsible Libertarian Discharge Nurse: Dayna Moscoso Date: 07/30/2010 Discharge Time: 11:55 AM documented in this encounter Progress Notes Olive Clark MD - 07/30/2010 11:24 AM PSTFormatting of this note might be differe nt from the original. INPATIENT PROGRESS NOTE Hospital Day:4 Author; OLIVE CLARK MD Attending Physician: Edgar Hampton MD Subjective: Pt did well overnight with no acute events. Pain well controlled, tolerating r egular diet. Ostomy with good output. Ambulating. Physical Exam: Last Vitals: BP 118/75 | Pulse 67 | Temp 36.9 C (98.4 F) | RR 16 | Ht 1.753 m (5' 9") | Wt 85 kg (187 lb 6.3 oz) | SpO2 97% | BMI 27.67 kg/(m^2) O2 Delivery Device: None (room air ) (07/30/10 1032) 24 Hour Vital Min/Max: Systolic (24hrs), Min:118 mmHg, Max:154 mmHgDiastolic (24hrs), Min:75 mmHg, Max:103 mmHgPul se Av.1 Min: 65 Max: 94 Temp Av C (98.6 F) Min: 36.8 C (98.2 F) Max: 37.2 C (98.9 F) Resp Av Min: 16 Max: 16 SpO2 Av.4 % Min: 96 % Max: 97 % CBG CBG Result : 134 (07/28/10 1132) CBG Intervention: Medication given (07/27/10 1342) Date 07/29/10699 - 07/30/10 0659 07/30/10 0700 - 07/31/10 0659 Shift 0411-3178 0642-2547 3639-4975 Daily Total 8718-0362 2285-1993 3087-9253 Daily Total I N T A K E P.O. 700 8222 740 8518 360 360 P.O. 700 8030 746 9101 360 360 Other 200 200 I/O Bladder Irrigation Input (Urinary Cath Placement Delgado) 200 200 Shift Total 700 0637 253 9462 560 560 O U T P U T Urine 1200 2708 205 3303 925 925 Urine 375 375 I/O Urinary Drain Output (Urinary Cath Placement Delgado) 1200 7693 475 1332 550 550 Drains 35 15 20 70 Wound Drain Output (Drains (wounds/surgical) ERIKA) 35 15 20 70 Other 200 300 225 725 75 75 Ostomy Output (Ostomy Ileostomy RUQ) 200 300 225 725 75 75 Shift Total 1435 6721 223 4063 1000 1000 [facility] -735 -515 -195 -[phone] -440 -440 General Appearance: NAD, AAO x 4 Cardiovascular: RRR Respiratory: CTA B/L Gastrointestinal: S/NT/ND, rash over midabdomen with clear borders in area covered with pre p during surgery Inc C/D/I, ostomy pink with bilious output colored output Extremities: no edema, WWP acetaminophen (aka TYLENOL) tablet 325 mg, 325 mg, Oral, Q4H PRN atorvastatin (aka LIPITOR) tablet 80 mg, 80 mg, Oral, DAILY enoxaparin (aka LOVENOX) injection 40 mg, 40 mg, Subcutaneous, DAILY HYDROmorphone (aka DILAUDID) injection 0.5-1 mg, 0.5-1 mg, Intravenous, Q2H PRN hydrOXYzine (aka ATARAX) tablet 10 mg, 10 mg, Oral, Q6H PRN loperamide (aka IMODIUM) capsule 4 mg, 4 mg, Oral, Q8H PRN ondansetron (aka ZOFRAN) injection 4 mg, 4 mg, Intravenous, Q12H PRN oxyCODONE immediate release (aka ROXICODONE) tablet 5-15 mg, 5-15 mg, Oral, Q3H PRN prochlorperazine (aka COMPAZINE) injection 2.5-10 mg, 2.5-10 mg, Intravenous, Q4H PRN ranitidine (aka ZANTAC) tablet 150 mg, 150 mg, Oral, BID trazodone (aka DESYREL) tablet 50 mg, 50 mg, Oral, HS PRN Chemistries: Last 72 Hours (or 3 results): Recent Labs Basename 07/30/10 0653 07/29/10 1607 07/29/10 1500 NA 137 137 Cncl phys K 3.9 4.0 Cncl phys CL 100 102 Cncl phys BICARB 29 28 Cncl phys BUN 9 9 Cncl phys CR 0.90 0.83 Cncl phys GLU 112* 114* Cncl phys CA 9.0 8.9 Cncl phys MG 1.9 1.8 Cncl phys PO4 5.2* 4.6 Cncl phys Liver Tests: Last 72 hours (or 3 results) Recent Labs Basename 07/30/10 0653 07/29/10 1607 07/29/10 1500 AST -- -- -- ALT -- -- -- TBILI -- -- -- AP -- -- -- ALB 3.0* 3.3* Cncl phys TP -- -- -- CBC with diff last 72 hours (or 3 results) Recent Labs Basename 07/30/10 0653 07/29/10 1607 07/29/10 1500 WBC 6.1 6.3 Cncl phys HB 13.5 13.3* Cncl phys HCT 39.0* 38.8* Cncl phys PLT 179 190 Cncl phys NEUTROPERC -- -- -- BANDPCT -- -- -- LYMPHPERC -- -- -- MONOPERC -- -- -- BASOPERC -- -- -- EOSPERC -- -- -- Assessment and Plan: Cosmo Johnson is a 65 y.o. male now POD 3 s/p LAR with stapled coloproctostomy and d iverting ileostomy. Recovering well. - Fill and pull to d/c Delgado. - Continue Atarax for rash. - Continue current pain medication regimen. - Continue regular diet. - Will plan to d/c home today. The patient was seen with Dr. Hampton, who agrees with this assessment and plan. OLIVE CLARK MD [facility] [address] [facility] Mailcode: [id number] [facility] [phone] Edgar Pleitez MD - 07/30/2010 9:05 AM PSTCRS Staff POD 4 Feels well. tono diet, pain controlled AF, OVSS, urine output 2950, ost 750/24h Abd soft, nt Inc clean ERIKA serous- removed Ost bilious Imp POD 4 s/p LAR. Satisfactory recovery. Plan Voiding trial this AM ERIKA out Home today Bernabe Jaimes MD - 07/29/2010 12:56 PM PSTFormatting of this note might be different from the origina l. Green Surgery Progress Note Date: 07/29/2010 Attending: Edgar Hampton MD No events overnight. Pain well controlled. No nausea, vomiting, fevers, chills, night swe ats, chest pain or shortness of breath. Excellent ostomy output both quality and quantity. Tolerating regular diet. Ambulating. Afebrile. Drain remains in place. He would like to go home. Vital Signs: Last Vitals: BP 130/84 | Pulse 75 | Temp 37 C (98.6 F) | RR 16 | Ht 1.753 m (5' 9") | W t 85 kg (187 lb 6.3 oz) | SpO2 97% | BMI 27.67 kg/(m^2) 24 Hour Vital Min/Max: Systolic (24hrs), Min:130 mmHg, Max:149 mmHg Diastolic (24hrs), Min:84 mmHg, Max:92 mmHg Pulse Av.7 Min: 75 Max: 97 Temp Av C (98.6 F) Min: 36.6 C (97.9 F) Max: 37.2 C (99 F) Resp Av Min: 16 Max: 16 SpO2 Av.5 % Min: 95 % Max: 98 % Intake/Output Summary (Last 24 hours) at 07/29/10 1256 Last data filed at 07/29/10 1200 Gross per 24 hour Intake 2430 ml Output 5910 ml Net -3480 ml PO: 2925 mL ERIKA: 25 mL serosanguinous fluid Ostomy: 550 mL UOP: 5250 mL clear yellow. Physical Examination: General: No apparent distress. Resting comfortably. HEENT: Atraumatic, normocephalic, extraocular muscles intact Pulmonary: Clear to ausculation bilaterally, no rales, crackles or wheezes. Cardiac: Regular rate and rhythm no obvious murmurs, rubs or gallops. Abdomen: Incision is c/d/i. Non-distended and non tender. Ostomy is pink with bilious c olored solid output. Extremities: Warm and well perfused. Neurological: Alert and oriented to person, place, time, and reason for hospitalization. CBC with diff last 72 hours (or 3 results) Recent Labs Basename 07/27/10 0559 WBC 8.9 HB 13.2* HCT 37.8* PLT 170 Chemistries: Last 72 Hours (or 3 results): Recent Labs Basename 07/28/10 0713 07/27/10 0559 NA 136 138 K 4.2 4.4 CL 102 106 BICARB 29 27 BUN 7 10 CR 0.71 0.85 GLU 123* -- CA 8.6 8.7 MG 2.0 1.6* PO4 2.7 4.4 Assessment and Plan: Cosmo Johnson is a 65 y.o. male now POD 3 s/p LAR with stapled coloproctostomy and d iverting ileostomy. Currently in good condition. Active problems are as follows: Neurologic: -- Post op pain : Well controlled on oral meds. Continue oral meds and d/c IV pain meds. Cardiovascular: -- Hd stable Respiratory: -- No issues Gastrointestinal: -- s/p aforementioned operation : d/c Entereg, add loperamide if ostomy output > 500 per sh ift. Continue to follow the wound and drain output. Will remove drain when only serous flu id. Anticipate d/c tomorrow. Fluids/Electrolytes/Nutrition: -- d/c IVF. ADAT. F/up lytes. 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 Plan for Delgado until tomorrow w ith voiding trial. Infectious Disease: -- No e/o infection Heme: -- stable H/H Endocrine: -- Normoglycemia Disposition: -- Smith the d/c tomorrow if no changes Dr. Hampton is the attending surgeon. He agrees with my assessment an plan. Edgar Pleitez MD - 07/28/2010 2:17 PM PSTCRS Staff POD2 Delgado replaced for retention. Some mild nausea. tono clears AF, OVSS abd soft, stoma with scant bilious output, ERIKA serosang Imp Satisfactory recovery to date Plan Cont Delgado Cont ERIKA until serous Clears/diet as tono Cont entereg until stoma functioning wellElectronically signed by Edgar Hampton MD at 2:18 PM PSTValdemar-Olive Emerson MD - 07/28/2010 8:33 AM PSTFormatting of this n ote might be different from the original. INPATIENT PROGRESS NOTE Hospital Day:2 Author; OLIVE CLARK MD Attending Physician: Edgar Hampton MD Subjective: No acute overnight events. Delgado d/yfn yesterday, straight cathx2 for elevate d PVRs. Tolerating clear liquids, no nausea or vomiting. Pain well controlled with ACCOUNT DIRECTOR. A mbulating to bathroom. Physical Exam: Last Vitals: BP 144/87 | Pulse 73 | Temp 37.2 C (98.9 F) | RR 16 | Ht 1.753 m (5' 9") | Wt 85 kg (187 lb 6.3 oz) | SpO2 96% | BMI 27.67 kg/(m^2) O2 Delivery Device: None (room air ) (07/28/10 0750) 24 Hour Vital Min/Max: Systolic (24hrs), Min:134 mmHg, Max:148 mmHgDiastolic (24hrs), Min:72 mmHg, Max:91 mmHgPuls e Av Min: 73 Max: 98 Temp Av.1 C (98.7 F) Min: 36.9 C (98.5 F) Max: 37.3 C (99.1 F) Resp Av Min: 16 Max: 16 SpO2 Av.1 % Min: 95 % Max: 100 % CBG CBG Result : 119 (07/28/10 0806) CBG Intervention: Medication given (07/27/10 1342) Date 07/27/10 07 - 07/28/10 0659 07/28/10 07 - 07/29/10 0659 Shift 5769-2555 8220-9080 2391-9131 Daily Total 2855-6128 9669-1772 8196-5549 Daily Total I N T A K E P.O. 550 398 184 9776 700 700 P.O. 550 081 871 5027 700 700 I.V. 625 1130 1000 2755 250 250 Volume (ml) 625 1125 1000 2750 250 250 I/O Vol (mL) Saline Flush (Peripheral Line Left Hand) 5 5 Shift Total 1175 1880 1250 4305 950 950 O U T P U T Urine 350 890 830 1598 350 350 Urine 218 441 3480 350 350 Volume Out (mL) 450 450 I/O Urinary Drain Output (Urinary Cath Placement Delgado) 350 350 Drains 70 55 60 185 15 15 Wound Drain Output (Drains (wounds/surgical) ERIKA) 70 55 60 185 15 15 Other 40 20 60 75 75 Ostomy Output (Ostomy Ileostomy RUQ) 40 20 60 75 75 Shift Total 420 291 514 2690 440 440 NET 755 7046 974 0663 510 510 General Appearance: NAD, AAO x 4 Cardiovascular: RRR Respiratory: CTA B/L Gastrointestinal: soft, nontender, nondistended Inc C/D/I, ostomy healthy and viable with bilious output and gas in bag Extremities: no edema, WWP alvimopan (aka ENTEREG) capsule 12 mg, 12 mg, Oral, BID atorvastatin (aka LIPITOR) tablet 80 mg, 80 mg, Oral, DAILY dextrose 5%-NaCl 0.45%-KCl 20 mEq/L IV infusion, 125 mL/hr, Intravenous, CONTINUOUS dextrose injection 25 mL, 25 mL, Intravenous, PRN diphenhydrAMINE (aka BENADRYL) capsule 25-50 mg, 25-50 mg, Oral, Q6H PRN diphenhydrAMINE (aka BENADRYL) injection 25-50 mg, 25-50 mg, Intravenous, Q6H PRN enoxaparin (aka LOVENOX) injection 40 mg, 40 mg, Subcutaneous, DAILY glucagon (aka GLUCAGEN) injection 1 mg, 1 mg, Intramuscular, PRN glucose chewable tablet 16 g, 16 g, Oral, Q15MIN PRN HYDROmorphone 25 mg in bacteriostatic NaCl 0.9% 50 mL ACCOUNT DIRECTOR infusion , , Intravenous, CONTINU OUS insulin aspart (aka NOVOLOG) injection 1-16 Units, 1-16 Units, Subcutaneous, PC and HS naloxone (aka NARCAN) injection, , Intravenous, PRN ondansetron (aka ZOFRAN) injection 4 mg, 4 mg, Intravenous, Q12H PRN prochlorperazine (aka COMPAZINE) injection 2.5-10 mg, 2.5-10 mg, Intravenous, Q4H PRN ranitidine (aka ZANTAC) tablet 150 mg, 150 mg, Oral, BID Chemistries: Last 72 Hours (or 3 results): Recent Labs Basename 07/28/10 0806 07/27/10 2315 07/27/10 2131 07/27/10 0559 07/25/10 1126 NA -- -- -- 138 141 K -- -- -- 4.4 4.7 CL -- -- -- 106 106 BICARB -- -- -- 27 29 BUN -- -- -- 10 14 CR -- -- -- 0.85 0.90 GLU 119* 121* 119* -- -- CA -- -- -- 8.7 9.5 MG -- -- -- 1.6* -- PO4 -- -- -- 4.4 -- Liver Tests: Last 72 hours (or 3 results) Recent Labs Basename 07/25/10 1126 AST 21 ALT 24 TBILI 0.5 AP 66 ALB 4.1 TP 6.4 CBC with diff last 72 hours (or 3 results) Recent Labs Basename 07/27/10 0559 07/25/10 1126 WBC 8.9 4.8 HB 13.2* 14.3 HCT 37.8* 42.3 PLT 170 183 NEUTROPERC -- -- BANDPCT -- -- LYMPHPERC -- -- MONOPERC -- -- BASOPERC -- -- EOSPERC -- -- Assessment and Plan: 65 yo male POD # 2 s/p LAR with diverting ileostomy. Elevated PVRs after Delgado d/yfn yeste rday, requiring straight cath x2. Recovering well, with adequate pain control and toleratin g clears. - Will replace Delgado today given episodes of urinary retention over the last 24 hrs. - ADAT to regular today. - Will d/c IVF. - Will d/c ACCOUNT DIRECTOR and start oral pain medication. - Encourage OOB, ambulation. The attending of record is Dr. Hampton, who agrees with this assessment and plan. OLIVE CLARK MD [facility] [id number] [facility] Mailcode: [id number] [facility] [id number] Olive Anderson MD - 07/27/2010 12:49 PM PST INPATIENT PROGRESS NOTE Hospital Day:1 Author; OLIVE CLARK MD Attending Physician: Edgar Hampton MD Subjective: Pt did well overnight with no acute events. Denies nausea or vomiting. Taking small sips of clears. Pain well controlled with ACCOUNT DIRECTOR. Denies CP, SOB. Physical Exam: Last Vitals: BP 135/80 | Pulse 98 | Temp 37.3 C (99.1 F) | RR 16 | Ht 1.753 m (5' 9") | Wt 85 kg (187 lb 6.3 oz) | SpO2 96% | BMI 27.67 kg/(m^2) O2 Delivery Device: None (room air ) (07/27/10 1043) 24 Hour Vital Min/Max: Systolic (24hrs), Min:123 mmHg, Max:197 mmHgDiastolic (24hrs), Min:67 mmHg, Max:99 mmHgPuls e Av.3 Min: 61 Max: 106 Temp Av.9 C (98.4 F) Min: 36.5 C (97.7 F) Max: 37.4 C (99.4 F) Resp Av.5 Min: 9 Max: 16 SpO2 Av.9 % Min: 95 % Max: 100 % CBG CBG Result : 159 (07/27/10 1224) Date 07/26/10 07 - 07/27/10 0659 07/27/10 07 - 07/28/10 0659 Shift 9716-4176 3323-9631 6474-4704 Daily Total 9196-2355 6471-4643 6582-9604 Daily Total I N T A K E P.O. 120 120 375 375 P.O. 120 120 375 375 I.V. 3460 1000 4460 375 375 Volume (ml) 160 1000 1160 375 375 IV input not otherwise identified 3300 3300 Shift Total 3460 1120 4580 750 750 O U T P U T Urine 350 425 775 350 350 I/O Urinary Drain Output (Urinary Cath Placement Delgado) 350 425 775 350 350 Drains 60 75 135 70 70 Wound Drain Output (Drains (wounds/surgical) ERIKA) 60 75 135 70 70 Other 100 100 Blood Measured 100 100 Shift Total 771 167 8391 420 420 NET 2950 620 3570 330 330 General Appearance: NAD, AAO x 4 Lungs: breathing comfortably Gastrointestinal: soft, diffuse mild tenderness, nondistended Inc C/D/I, ostomy healthy and pink with bilious liquid in ostomy bag Extremities: no edema, WWP alvimopan (aka ENTEREG) capsule 12 mg, 12 mg, Oral, BID atorvastatin (aka LIPITOR) tablet 80 mg, 80 mg, Oral, DAILY dextrose 5%-NaCl 0.45%-KCl 20 mEq/L IV infusion, 125 mL/hr, Intravenous, CONTINUOUS dextrose injection 25 mL, 25 mL, Intravenous, PRN diphenhydrAMINE (aka BENADRYL) capsule 25-50 mg, 25-50 mg, Oral, Q6H PRN diphenhydrAMINE (aka BENADRYL) injection 25-50 mg, 25-50 mg, Intravenous, Q6H PRN enoxaparin (aka LOVENOX) injection 40 mg, 40 mg, Subcutaneous, DAILY glucagon (aka GLUCAGEN) injection 1 mg, 1 mg, Intramuscular, PRN glucose chewable tablet 16 g, 16 g, Oral, Q15MIN PRN HYDROmorphone 25 mg in bacteriostatic NaCl 0.9% 50 mL ACCOUNT DIRECTOR infusion , , Intravenous, CONTINU OUS insulin aspart (aka NOVOLOG) injection 1-16 Units, 1-16 Units, Subcutaneous, PC and HS naloxone (aka NARCAN) injection, , Intravenous, PRN ondansetron (aka ZOFRAN) injection 4 mg, 4 mg, Intravenous, Q12H PRN prochlorperazine (aka COMPAZINE) injection 2.5-10 mg, 2.5-10 mg, Intravenous, Q4H PRN ranitidine (aka ZANTAC) tablet 150 mg, 150 mg, Oral, BID Chemistries: Last 72 Hours (or 3 results): Recent Labs Basename 07/27/10 1224 07/27/10 0607 07/27/10 0559 07/25/10 1126 NA -- -- 138 141 K -- -- 4.4 4.7 CL -- -- 106 106 BICARB -- -- 27 29 BUN -- -- 10 14 CR -- -- 0.85 0.90 GLU 159* 155* 147* -- CA -- -- 8.7 9.5 MG -- -- 1.6* -- PO4 -- -- 4.4 -- Liver Tests: Last 72 hours (or 3 results) Recent Labs Basename 07/25/10 1126 AST 21 ALT 24 TBILI 0.5 AP 66 ALB 4.1 TP 6.4 CBC with diff last 72 hours (or 3 results) Recent Labs Basename 07/27/10 0559 07/25/10 1126 WBC 8.9 4.8 HB 13.2* 14.3 HCT 37.8* 42.3 PLT 170 183 NEUTROPERC -- -- BANDPCT -- -- LYMPHPERC -- -- MONOPERC -- -- BASOPERC -- -- EOSPERC -- -- Assessment and Plan: 65 yo male POD # 1 s/p LAR with diverting ileostomy. Did well overnight. - Will d/c Delgado this a.m. - Advance diet as tolerated today. - Will continue ACCOUNT DIRECTOR for pain control. - Encourage OOB, ambulation. The attending of record is Dr. Hampton, who agrees with this assessment and plan. OLIVE CLARK MD [facility] [address] [facility] Mailcode: [id number] [facility] [id number] Edgar Pleitez MD - 07/26/2010 3:50 PM PSTI saw and examined Cosmo Johnson in the preoperative area and th ere are no changes to the preprocedural note. documented in this e ncounter Plan of Treatment Not on filedocumented as of this encounter Procedures + +--------+ + + + | Procedure Name | Priori | Date/Time | Associated Diagnosis | Comments | | | ty | | | | + +--------+ + + + | PA PART REMOVAL | Routin | 08/19/2015 | | Results for this | | COLON W | e | 7:42 AM | | procedure are in the | | COLOPROCTOSTOMY | | PST | | results section. | + +--------+ + + + | RENAL FUNCTION SET | Routin | 07/30/2010 | | Results for this | | (NA,K,CL,CO2,BUN,CRE | e | 6:53 AM | | procedure are in the | | AT,GLUC,CA,PHOS,ALB | | PST | | results section. | | ) | | | | | + +--------+ + + + | CBC ONLY | Routin | 07/30/2010 | | Results for this | | | e | 6:53 AM | | procedure are in the | | | | PST | | results section. | + +--------+ + + + | MAGNESIUM, PLASMA | Routin | 07/30/2010 | | Results for this | | | e | 6:53 AM | | procedure are in the | | | | PST | | results section. | + +--------+ + + + | RENAL FUNCTION SET | Routin | 07/29/2010 | | Results for this | | (NA,K,CL,CO2,BUN,CRE | e | 4:07 PM | | procedure are in the | | AT,GLUC,CA,PHOS,ALB | | PST | | results section. | | ) | | | | | + +--------+ + + + | CBC ONLY | Routin | 07/29/2010 | | Results for this | | | e | 4:07 PM | | procedure are in the | | | | PST | | results section. | + +--------+ + + + | MAGNESIUM, PLASMA | Routin | 07/29/2010 | | Results for this | | | e | 4:07 PM | | procedure are in the | | | | PST | | results section. | + +--------+ + + + | RENAL FUNCTION SET | Routin | 07/29/2010 | | Results for this | | (NA,K,CL,CO2,BUN,CRE | e | 3:00 PM | | procedure are in the | | AT,GLUC,CA,PHOS,ALB | | PST | | results section. | | ) | | | | | + +--------+ + + + | CBC ONLY | Routin | 07/29/2010 | | Results for this | | | e | 3:00 PM | | procedure are in the | | | | PST | | results section. | + +--------+ + + + | MAGNESIUM, PLASMA | Routin | 07/29/2010 | | Results for this | | | e | 3:00 PM | | procedure are in the | | | | PST | | results section. | + +--------+ + + + | CAPILLARY BLOOD | Routin | 07/28/2010 | | Results for this | | GLUCOSE (NO CHG), | e | 11:32 AM | | procedure are in the | | POC | | PST | | results section. | + +--------+ + + + | CAPILLARY BLOOD | Routin | 07/28/2010 | | Results for this | | GLUCOSE (NO CHG), | e | 8:06 AM | | procedure are in the | | POC | | PST | | results section. | + +--------+ + + + | BASIC METABOLIC SET | Routin | 07/28/2010 | | Results for this | | (NA, K, CL, TCO2, | e | 7:13 AM | | procedure are in the | | BUN, CR, GLU, CA) | | PST | | results section. | + +--------+ + + + | PHOSPHORUS, PLASMA | Routin | 07/28/2010 | | Results for this | | | e | 7:13 AM | | procedure are in the | | | | PST | | results section. | + +--------+ + + + | MAGNESIUM, PLASMA | Routin | 07/28/2010 | | Results for this | | | e | 7:13 AM | | procedure are in the | | | | PST | | results section. | + +--------+ + + + | RESP CARE THERAPY | Routin | 07/28/2010 | | Results for this | | | e | 5:45 AM | | procedure are in the | | | | PST | | results section. | + +--------+ + + + | CAPILLARY BLOOD | Routin | 07/27/2010 | | Results for this | | GLUCOSE (NO CHG), | e | 11:15 PM | | procedure are in the | | POC | | PST | | results section. | + +--------+ + + + | CAPILLARY BLOOD | Routin | 07/27/2010 | | Results for this | | GLUCOSE (NO CHG), | e | 9:31 PM | | procedure are in the | | POC | | PST | | results section. | + +--------+ + + + | CAPILLARY BLOOD | Routin | 07/27/2010 | | Results for this | | GLUCOSE (NO CHG), | e | 6:05 PM | | procedure are in the | | POC | | PST | | results section. | + +--------+ + + + | CAPILLARY BLOOD | Routin | 07/27/2010 | | Results for this | | GLUCOSE (NO CHG), | e | 1:42 PM | | procedure are in the | | POC | | PST | | results section. | + +--------+ + + + | CAPILLARY BLOOD | Routin | 07/27/2010 | | Results for this | | GLUCOSE (NO CHG), | e | 12:24 PM | | procedure are in the | | POC | | PST | | results section. | + +--------+ + + + | CAPILLARY BLOOD | Routin | 07/27/2010 | | Results for this | | GLUCOSE (NO CHG), | e | 6:07 AM | | procedure are in the | | POC | | PST | | results section. | + +--------+ + + + | BASIC METABOLIC SET | Urgent | 07/27/2010 | | Results for this | | (NA, K, CL, TCO2, | | 5:59 AM | | procedure are in the | | BUN, CR, GLU, CA) | | PST | | results section. | + +--------+ + + + | CBC ONLY | Urgent | 07/27/2010 | | Results for this | | | | 5:59 AM | | procedure are in the | | | | PST | | results section. | + +--------+ + + + | PHOSPHORUS, PLASMA | Urgent | 07/27/2010 | | Results for this | | | | 5:59 AM | | procedure are in the | | | | PST | | results section. | + +--------+ + + + | MAGNESIUM, PLASMA | Urgent | 07/27/2010 | | Results for this | | | | 5:59 AM | | procedure are in the | | | | PST | | results section. | + +--------+ + + + | GLUCOSE, PLASMA | Urgent | 07/26/2010 | | Results for this | | | | 10:46 PM | | procedure are in the | | | | PST | | results section. | + +--------+ + + + | CAPILLARY BLOOD | Routin | 07/26/2010 | | Results for this | | GLUCOSE (NO CHG), | e | 10:44 PM | | procedure are in the | | POC | | PST | | results section. | + +--------+ + + + | ANESTHESIA/SEDATION | | 07/26/2010 | | Results for this | | | | 12:00 AM | | procedure are in the | | | | PST | | results section. | + +--------+ + + + | SURGICAL PATHOLOGY | Routin | 07/26/2010 | | Results for this | | | e | | | procedure are in the | | | | | | results section. | + +--------+ + + + documented in this encounter Results PA PART REMOVAL COLON W COLOPROCTOSTOMY (08/19/2015 7:42 AM PST)CBC ONLY (07/30/2010 6:53 AM PST) + + + + + + | Component | Value | Ref Range | Performed | Pathologist | | | | | At | Signature | + + + + + + | WHITE CELL | 6.1 | 4.4 - 11.0 K/cu | [facility] | | | COUNT | | mm | DEPARTMENT | | | | | | OF | | | | | | PATHOLOGY | | + + + + + + | RED CELL | 3.97 (L) | 4.50 - 5.90 | [facility] | | | COUNT | | M/cu mm | DEPARTMENT | | | | | | OF | | | | | | PATHOLOGY | | + + + + + + | HEMOGLOBIN | 13.5 | 13.5 - 17.5 | [facility] | | | | | g/dL | DEPARTMENT | | | | | | OF | | | | | | PATHOLOGY | | + + + + + + | HEMATOCRIT | 39.0 (L) | 41.0 - 53.0 % | [facility] | | | | | | DEPARTMENT | | | | | | OF | | | | | | PATHOLOGY | | + + + + + + | MCV | 98.1 (H) | 80.0 - 96.0 fL | [...] + + + + | RDW | 13.4 | 11.5 - 15.0 % | [facility] | | | | | | DEPARTMENT | | | | | | OF | | | | | | PATHOLOGY | | + + + + + + | PLATELET | 179 | 150 - 400 K/cu | [facility] [...] + + + | [facility] | [address] | [place] [address] | | | PATHOLOGY | [address] | | | + + + + + MAGNESIUM, PLASMA (07/30/2010 6:53 AM PST) + +-------+ + + + | Component | Value | Ref Range | Performed | Pathologist | | | | | At | Signature | + +-------+ + + + | MAGNESIUM,P | 1.9 | 1.8 - 2.5 mg/dL | [facility] [...] | + + + + + | [facility] DEPARTMENT OF | [address] | [place] [address] | | | PATHOLOGY | [address] | | | + + + + + RENAL FUNCTION SET (NA,K,CL,CO2,BUN,CREAT,GLUC,CA,PHOS,ALB ) (07/30/2010 6:53 AM PST) + + + + + + | Component | Value | Ref Range | Performed | Pathologist | | | | | At | Signature | + + + + + + | GLUCOSE, | 112 (H) | 60 - 99 mg/dL | [facility] | | | PLASMA | | | DEPARTMENT | | | (LAB) | | | OF | | | | | | PATHOLOGY | | + + + + + + | BUN, PLASMA | 9 | 6 - 20 mg/dL | [facility] [...] + + + + | ALBUMIN, | 3.0 (L) | 3.5 - 4.7 g/dL | [facility] | | | PLASMA | | | DEPARTMENT | | | (LAB) | | | OF | | | | | | PATHOLOGY | | + + + + + + | CALCIUM, | 9.0 | 8.6 - 10.2 | [facility] | | | PLASMA | | mg/dL | DEPARTMENT | | | (LAB) | | | OF | | | | | | PATHOLOGY | | + + + + + + | PHOSPHORUS, | 5.2 (H) | 2.4 - 4.7 mg/dL | [facility] | | | PLASMA | | | DEPARTMENT | | | (LAB) | | | OF | | | | | | PATHOLOGY | | + + + + + + | SODIUM, | 137 | 134 - 143 | [facility] | [...] + + + + | ANION | 10 [...] DEPARTMENT OF | [address] | [place] [address] | | | PATHOLOGY | [address] | | | + + + + + CBC ONLY (07/29/2010 4:07 PM PST) + + + + + + | Component | Value | Ref Range | Performed | Pathologist | | | | | At | Signature | + + + + + + | WHITE CELL | 6.3 | 4.4 - 11.0 K/cu | [facility] | | | COUNT | | mm | DEPARTMENT | | | | | | OF | | | | | | PATHOLOGY | | + + + + + + | RED CELL | 3.92 (L) | 4.50 - 5.90 | [facility] | | | COUNT | | M/cu mm | DEPARTMENT | | | | | | OF | | | | | | PATHOLOGY | | + + + + + + | HEMOGLOBIN | 13.3 (L) | 13.5 - 17.5 | [facility] | | | | | g/dL | DEPARTMENT | | | | | | OF | | | | | | PATHOLOGY | | + + + + + + | HEMATOCRIT | 38.8 (L) | 41.0 - 53.0 % | [facility] | | | | | | DEPARTMENT | | | | | | OF | | | | | | PATHOLOGY | | + + + + + + | MCV | 98.9 (H) | 80.0 - 96.0 fL | [...] + + + + | RDW | 13.9 | 11.5 - 15.0 % | [facility] | | | | | | DEPARTMENT | | | | | | OF | | | | | | PATHOLOGY | | + + + + + + | PLATELET | 190 | 150 - 400 K/cu | [facility] [...] | + + + + + | [facility] DEPARTMENT OF | [address] | [place] [address] | | | PATHOLOGY | [address] | | | + + + + + RENAL FUNCTION SET (NA,K,CL,CO2,BUN,CREAT,GLUC,CA,PHOS,ALB ) (07/29/2010 4:07 PM PST) + + + + + + | Component | Value | Ref Range | Performed | Pathologist | | | | | At | Signature | + + + + + + | GLUCOSE, | 114 (H) | 60 - 99 mg/dL | [facility] | | | PLASMA | | | DEPARTMENT | | | (LAB) | | | OF | | | | | | PATHOLOGY | | + + + + + + | BUN, PLASMA | 9 | 6 - 20 mg/dL | [facility] | | | (LAB) | | | DEPARTMENT | | | | | | OF | | | | | | PATHOLOGY | | + + + + + + | CREATININE | 0.83 | 0.70 - 1.30 | [facility] | | | PLASMA | | mg/dL | DEPARTMENT | | | (LAB) | | | OF | | | | | | PATHOLOGY | | + + + + + + | ALBUMIN, | 3.3 (L) | 3.5 - 4.7 g/dL | [facility] | | | PLASMA | | | DEPARTMENT | | | (LAB) | | | OF | | | | | | PATHOLOGY | | + + + + + + | CALCIUM, | 8.9 | 8.6 - 10.2 | [facility] | | | PLASMA | | mg/dL | DEPARTMENT | | | (LAB) | | | OF | | | | | | PATHOLOGY | | + + + + + + | PHOSPHORUS, | 4.6 | 2.4 - 4.7 mg/dL | [facility] | | | PLASMA | | | DEPARTMENT | | | (LAB) | | | OF | | | | | | PATHOLOGY | | + + + + + + | SODIUM, | 137 | 134 - 143 | [facility] | [...] + + + + | CHLORIDE, | 102 | 97 - 108 mmol/L | [facility] | | | PLASMA | | | DEPARTMENT | | | (LAB) | | | OF | | | | | | PATHOLOGY | | + + + + + + | TOTAL CO2, | 28Comment: New Total | 22 - 29 mmol/L | [facility] | | | PLASMA | CO2 reference range | | DEPARTMENT | | | (LAB) | effective 06/06/10. | | OF | | | | | | PATHOLOGY | | + + + + + + | ANION GAP | 7 | 4 - 11 mmol/L | [facility] | | | | | | DEPARTMENT | | | | | | OF | | | | | | PATHOLOGY | | + + + + + + | ANION | 8 | 4 - 11 mmol/L [...] + + + | [facility] | [address] | [place] [address] | | | PATHOLOGY | [address] | | | + + + + + MAGNESIUM, PLASMA (07/29/2010 4:07 PM PST) + +-------+ + + + | Component | Value | Ref Range | Performed | Pathologist | | | | | At | Signature | + +-------+ + + + | MAGNESIUM,P | 1.8 | 1.8 - 2.5 mg/dL | [facility] [...] | + + + + + | [facility] DEPARTMENT OF | [address] | [place] [address] | | | PATHOLOGY | [address] | | | + + + + + CBC ONLY (07/29/2010 3:00 PM PST) + + + + + + | Component | Value | Ref Range | Performed | Pathologist | | | | | At | Signature | + + + + + + | WHITE CELL | Cncl phys | 4.4 - 11.0 K/cu | [facility] | | | COUNT | | mm | DEPARTMENT | | | | | | OF | | | | | | PATHOLOGY | | + + + + + + | RED CELL | Cncl phys | 4.50 - 5.90 | [facility] | | | COUNT | | M/cu mm | DEPARTMENT | | | | | | OF | | | | | | PATHOLOGY | | + + + + + + | HEMOGLOBIN | Cncl phys | 13.5 - 17.5 | [facility] | | | | | g/dL | DEPARTMENT | | | | | | OF | | | | | | PATHOLOGY | | + + + + + + | HEMATOCRIT | Cncl phys | 41.0 - 53.0 % | [facility] | | | | | | DEPARTMENT | | | | | | OF | | | | | | PATHOLOGY | | + + + + + + | MCV | Cncl phys | 80.0 - 96.0 fL | [facility] | | | | | | DEPARTMENT | | | | | | OF | | | | | | PATHOLOGY | | + + + + + + | MCHC | Cncl phys | 33.4 - 35.5 | [facility] | | | | | g/dL | DEPARTMENT | | | | | | OF | | | | | | PATHOLOGY | | + + + + + + | RDW | Cncl phys | 11.5 - 15.0 % | [facility] | | | | | | DEPARTMENT | | | | | | OF | | | | | | PATHOLOGY | | + + + + + + | PLATELET | Cncl phys | 150 - 400 K/cu | [facility] [...] DEPARTMENT OF | [address] | [place] [address] | | | PATHOLOGY | [address] | | | + + + + + MAGNESIUM, PLASMA (07/29/2010 3:00 PM PST) + + + + + + | Component | Value | Ref Range | Performed | Pathologist | | | | | At | Signature | + + + + + + | MAGNESIUM,P | Cncl phys | 1.8 - 2.5 mg/dL | [facility] [...] | + + + + + | [facility] DEPARTMENT OF | [address] | [place] [address] | | | PATHOLOGY | [address] | | | + + + + + RENAL FUNCTION SET (NA,K,CL,CO2,BUN,CREAT,GLUC,CA,PHOS,ALB ) (07/29/2010 3:00 PM PST) + + + + + + | Component | Value | Ref Range | Performed | Pathologist | | | | | At | Signature | + + + + + + | GLUCOSE, | Cncl phys | 60 - 99 mg/dL | [facility] | | | PLASMA | | | DEPARTMENT | | | (LAB) | | | OF | | | | | | PATHOLOGY | | + + + + + + | BUN, PLASMA | Cncl phys | 6 - 20 mg/dL | [facility] | | | (LAB) | | | DEPARTMENT | | | | | | OF | | | | | | PATHOLOGY | | + + + + + + | CREATININE | Cncl phys | 0.70 - 1.30 | [facility] | | | PLASMA | | mg/dL | DEPARTMENT | | | (LAB) | | | OF | | | | | | PATHOLOGY | | + + + + + + | ALBUMIN, | Cncl phys | 3.5 - 4.7 g/dL | [facility] | | | PLASMA | | | DEPARTMENT | | | (LAB) | | | OF | | | | | | PATHOLOGY | | + + + + + + | CALCIUM, | Cncl phys | 8.6 - 10.2 | [facility] | | | PLASMA | | mg/dL | DEPARTMENT | | | (LAB) | | | OF | | | | | | PATHOLOGY | | + + + + + + | PHOSPHORUS, | Cncl phys | 2.4 - 4.7 mg/dL | [facility] | | | PLASMA | | | DEPARTMENT | | | (LAB) | | | OF | | | | | | PATHOLOGY | | + + + + + + | SODIUM, | Cncl phys | 134 - 143 | [facility] | | | PLASMA | | mmol/L | DEPARTMENT | | | (LAB) | | | OF | | | | | | PATHOLOGY | | + + + + + + | POTASSIUM, | Cncl phys | 3.4 - 5.0 | [facility] | | | PLASMA | | mmol/L | DEPARTMENT | | | (LAB) | | | OF | | | | | | PATHOLOGY | | + + + + + + | CHLORIDE, | Cncl phys | 97 - 108 mmol/L | [facility] | | | PLASMA | | | DEPARTMENT | | | (LAB) | | | OF | | | | | | PATHOLOGY | | + + + + + + | TOTAL CO2, | Cncl phys | 22 - 29 mmol/L | [facility] [...] DEPARTMENT OF | [address] | [place] [address] | | | PATHOLOGY | [address] | | | + + + + + CAPILLARY BLOOD GLUCOSE, POC (07/28/2010 11:32 AM PST) + +---------+ + + + | Component | Value | Ref Range | Performed | Pathologist | | | | | At | Signature | + +---------+ + + + | BLOOD | 134 (H) | 60 - 99 mg/dL | [facility] | | | GLUCOSE, | | | [facility] | | | POC | | | [facility] | | [...] + | [facility] | [address] | [place], [place] | | | [facility] OF [facility] | [address] | [address] | | | TESTS | | | | + + + + + CAPILLARY BLOOD GLUCOSE, POC (07/28/2010 8:06 AM PST) + +---------+ + + + | Component | Value | Ref Range | Performed | Pathologist | | | | | At | Signature | + +---------+ + + + | BLOOD | 119 (H) | 60 - 99 mg/dL | [facility] - | | | GLUCOSE, | | | [facility] | | | POC | | | ABDIAZIZ PEREZ | | [...] + + + + + | [facility] | [address] | [place], [place] | | | [facility] | [address] | [address] | | | TESTS | | | | + + + + + PHOSPHORUS, PLASMA (07/28/2010 7:13 AM PST) + +-------+ + + + | Component | Value | Ref Range | Performed | Pathologist | | | | | At | Signature | + +-------+ + + + | PHOSPHORUS, | 2.7 | 2.4 - 4.7 mg/dL | [facility] | | | PLASMA [...] DEPARTMENT OF | [address] | [place] [address] | | | PATHOLOGY | [address] | | | + + + + + MAGNESIUM, PLASMA (07/28/2010 7:13 AM PST) + +-------+ + + + [...] + | [facility] DEPARTMENT OF | [address] | [place] [address] | | | PATHOLOGY | [address] | | | + + + + + BASIC METABOLIC SET (NA, K, CL, TCO2, BUN, CR, GLU, CA) (07/28/2010 7:13 AM PST) + + + + + + | Component | Value | Ref Range | Performed | Pathologist | | | | | At | Signature | + + + + + + | GLUCOSE, | 123 (H) | 60 - 99 mg/dL | [...] + + + + | CREATININE | 0.71 | 0.70 - 1.30 | [facility] | [...] + + + + | POTASSIUM, | 4.2 | 3.4 - 5.0 | [facility] | | | PLASMA | | mmol/L | DEPARTMENT | | | (LAB) | | | OF | | | | | | PATHOLOGY | | + + + + + + | CHLORIDE, | 102 [...] + + + + | CALCIUM, | 8.6 | 8.6 - 10.2 | [facility] | | | PLASMA | | mg/dL | DEPARTMENT | | | (LAB) | | | OF | | | | | | PATHOLOGY | | + + + + + + | ANION GAP | 5 | 4 - 11 mmol/L [...] | + + + + + | [facility] DEPARTMENT OF | [address] | [place] [address] | | | PATHOLOGY | [address] | | | + + + + + RESP CARE THERAPY (07/28/2010 5:45 AM PST) + + + + +-------- ------+ | Component | Value | Ref Range | Performed | Patholo gist | | | | | At | Signatu re | + + + + +-------- ------+ | RESPIRATORY | Nasal cannula at 2 LPM. | | [facility] | | | CARE | Electronically | | RESPIRATORY | | | | Signed by: Kelsi JACOBSON | | | | [place], | | | | | | | | | | | | | | | | | | | | | | | | | | | | | | | | | | | |Electronically Signed by: Kelsi Gómez, | | | | + + + + +-------- ------+ + + | Specimen | + + | | + + + + + + + | Performing | Address | City/State/Zipcode | Phone Number | | Organization | | | | + + + + + | [facility] | [address] | [place], [place] | | | THERAPY | [address] | [address] | | + + + + + CAPILLARY BLOOD GLUCOSE, POC (07/27/2010 11:15 PM PST) + +---------+ + + + | Component | Value | Ref Range | Performed | Pathologist | | | | | At | Signature | + +---------+ + + + | BLOOD | 121 (H) | 60 - 99 mg/dL | [facility] | | | GLUCOSE, | | | [place] | | | POC | | | [facility]ERE[facility] | | [...] + + + + + | [facility] | [address] | [place], [place] | | | [facility] | [address] | [address] | | | TESTS | | | | + + + + + CAPILLARY BLOOD GLUCOSE, POC (07/27/2010 9:31 PM PST) + +---------+ + + + | Component | Value | Ref Range | Performed | Pathologist | | | | | At | Signature | + +---------+ + + + | BLOOD | 119 (H) | 60 - 99 mg/dL | [facility] | | | GLUCOSE, | | | [place] | | | POC | | | [facility]ZIZ PEREZ | | [...] | [facility] | [address] | [place], [place] | | | [facility] | [address] | [address] | | | TESTS | | | | + + + + + CAPILLARY BLOOD GLUCOSE, POC (07/27/2010 6:05 PM PST) + +---------+ + + + | Component | Value | Ref Range | Performed | Pathologist | | | | | At | Signature | + +---------+ + + + | BLOOD | 132 (H) | 60 - 99 mg/dL | [facility] | | | GLUCOSE, | | | [place] | | | POC | | | [facility]ERE[facility] | | [...] + | [facility] | [address] | [place], [place] | | | [facility] | [address] | [address] | | | TESTS | | | | + + + + + CAPILLARY BLOOD GLUCOSE, POC (07/27/2010 1:42 PM PST) + +---------+ + + + | Component | Value | Ref Range | Performed | Pathologist | | | | | At | Signature | + +---------+ + + + | BLOOD | 151 (H) | 60 - 99 mg/dL | [facility] - | | | GLUCOSE, | | | [facility] | | | POC | | | [facility] | | | | | | OF CARE | | | | | | TESTS | | + +---------+ + + + + + | Specimen | + + | | + + + + + + + | Performing | Address | City/State/Zipcode | Phone Number | | Organization | | | | + + + + + | [facility] | [address] | [place], [place] | | | [facility] | [address] | [address] | | | TESTS | | | | + + + + + CAPILLARY BLOOD GLUCOSE, POC (07/27/2010 12:24 PM PST) + +---------+ + + + | Component | Value | Ref Range | Performed | Pathologist | | | | | At | Signature | + +---------+ + + + | BLOOD | 159 (H) | 60 - 99 mg/dL | [facility] | | | GLUCOSE, | | | [place] | | | POC | | | [facility]ERE[facility] | | [...] | [facility] | [address] | [place], [place] | | | [facility] | [address] | [address] | | | TESTS | | | | + + + + + CAPILLARY BLOOD GLUCOSE, POC (07/27/2010 6:07 AM PST) + +---------+ + + + | Component | Value | Ref Range | Performed | Pathologist | | | | | At | Signature | + +---------+ + + + | BLOOD | 155 (H) | 60 - 99 mg/dL | [facility] | | | GLUCOSE, | | | [facility] | | | POC | | | [facility] | | [...] + + + + + | [facility] | [address] | [place], [place] | | | [facility] | [address] | [address] | | | TESTS | | | | + + + + + PHOSPHORUS, PLASMA (07/27/2010 5:59 AM PST) + +-------+ + + + | Component | Value | Ref Range | Performed | Pathologist | | | | | At | Signature | + +-------+ + + + | PHOSPHORUS, | 4.4 | 2.4 - 4.7 mg/dL | [facility] | | | PLASMA [...] + + + | [facility] | [address] | [place] [address] | | | PATHOLOGY | [address] | | | + + + + + MAGNESIUM, PLASMA (07/27/2010 5:59 AM PST) + +---------+ + + + | Component | Value | Ref Range | Performed | Pathologist | | | | | At | Signature | + +---------+ + + + | MAGNESIUM,P | 1.6 (L) | 1.8 - 2.5 mg/dL | [...] DEPARTMENT OF | [address] | [place] [address] | | | PATHOLOGY | [address] | | | + + + + + BASIC METABOLIC SET (NA, K, CL, TCO2, BUN, CR, GLU, CA) (07/27/2010 5:59 AM PST) + + + + + + | Component | Value | Ref Range | Performed | Pathologist | | | | | At | Signature | + + + + + + | GLUCOSE, | 147 (H) | 60 - 99 mg/dL | [facility] | | | PLASMA | | | DEPARTMENT | | | (LAB) | | | OF | | | | | | PATHOLOGY | | + + + + + + | BUN, PLASMA | 10 | 6 - 20 mg/dL | [facility] | | | (LAB) | | | DEPARTMENT | | | | | | OF | | | | | | PATHOLOGY | | + + + + + + | CREATININE | 0.85 | 0.70 - 1.30 | [facility] | [...] + + + + | POTASSIUM, | 4.4 | 3.4 - 5.0 | [facility] | [...] + + + | TOTAL CO2, | 27Comment: New Total | 22 - 29 mmol/L | [facility] | | | PLASMA | CO2 reference range | | DEPARTMENT | | | (LAB) | effective 06/06/10. | | OF | | | | | | PATHOLOGY | | + + + + + + | CALCIUM, | 8.7 | 8.6 - 10.2 | [facility] | | | PLASMA | | mg/dL | DEPARTMENT | | | (LAB) | | | OF | | | | | | PATHOLOGY | | + + + + + + | ANION GAP | 5 | 4 - 11 mmol/L [...] + + + | [facility] | [address] | [place] [address] | | | PATHOLOGY | [address] | | | + + + + + CBC ONLY (07/27/2010 5:59 AM PST) + + + + + + | Component | Value | Ref Range | Performed | Pathologist | | | | | At | Signature | + + + + + + | WHITE CELL | 8.9 | 4.4 - 11.0 K/cu | [facility] | | | COUNT | | mm | DEPARTMENT | | | | | | OF | | | | | | PATHOLOGY | | + + + + + + | RED CELL | 3.85 (L) | 4.50 - 5.90 | [facility] | | | COUNT | | M/cu mm | DEPARTMENT | | | | | | OF | | | | | | PATHOLOGY | | + + + + + + | HEMOGLOBIN | 13.2 (L) | 13.5 - 17.5 | [facility] | | | | | g/dL | DEPARTMENT | | | | | | OF | | | | | | PATHOLOGY | | + + + + + + | HEMATOCRIT | 37.8 (L) | 41.0 - 53.0 % | [facility] | | | | | | DEPARTMENT | | | | | | OF | | | | | | PATHOLOGY | | + + + + + + | MCV | 98.3 (H) | 80.0 - 96.0 fL | [...] + + + + | PLATELET | 170 | 150 - 400 K/cu | [facility] [...] + + + | [facility] | [address] | [place] [address] | | | PATHOLOGY | [address] | | | + + + + + GLUCOSE, PLASMA (07/26/2010 10:46 PM PST) + + + + + + | Component | Value | Ref Range | Performed | Pathologist | | | | | At | Signature | + + + + + + | GLUCOSE, | Not Recd | 60 - 99 mg/dL | [facility] [...] | + + + + + | [facility] DEPARTMENT OF | [address] | [place] [address] | | | PATHOLOGY | [address] | | | + + + + + CAPILLARY BLOOD GLUCOSE, POC (07/26/2010 10:44 PM PST) + +---------+ + + + | Component | Value | Ref Range | Performed | Pathologist | | | | | At | Signature | + +---------+ + + + | BLOOD | 150 (H) | 60 - 99 mg/dL | [facility] - | | | GLUCOSE, | | | [facility] | | | POC | | | ABDIAZIZ PEREZ | | [...] + + + + + | [facility] | [address] | [place], [place] | | | ABDIAZIZ PEREZ [facility] | [address] | [id number] | | | TESTS | | | | + + + + + ANESTHESIA/SEDATION (07/26/2010 12:00 AM PST) + + + | Narrative | Performed At | + + + | | | + + + + + | Procedure Note | + + | Other, Faculty - 07/26/2010 8:33 PM PST | | | + + SURGICAL PATHOLOGY (07/26/2010) + + + + + + | Component | Value | Ref Range | Performed | Pathologist | | | | | At | Signature | + + + + + + | SURGICAL | SOURCE OF SPECIMEN:A | | [facility] | | | PATHOLOGY | RectumSOURCE OF | | DEPARTMENT | | | | SPECIMEN:B Distal donut | | OF | | | | Final Pathologic | | PATHOLOGY | | | | Diagnosis:A: Rectum, | | | | | | partial coloproctostomy: | | | | | | - 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, | | | | | | 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)- No | | | | | | residual invasive | | | | | | carcinoma present | | | | | | - Colonic mucosa with | | | | | | treatment effect - | | | | | | Margins free of tumor | | | | | | - No perineural or | | | | | | angiolymphatic invasion | | | | | | identified - | | | | | | Fifteen benign lymph | | | | | | nodes (0/15) - | | | | | | AJCC pathologic stage | | | | | | (7th Edition): [id number] | | | | | | B: Distal | | | | | | donut, partial | | | | | | coloproctostomy: - | | | | | | Colonic mucosa, | | | | | | negative for malignancy | | | | | | Case seen by:Elida | | | | | | RomuloElsie Rosario, | | | | | | M.D./Surgical Pathology | | | | | | ResidentKen Jas Beatty, | | | | | | M.D./pathologistT: | | | | | | 011:tp | | | | | | Colon and Rectum | | | | | | Resection Cancer | | | | | | SynopsisSpecimens | | | | | | InvolvedSpecimens: | | | | | | A: RectumB: Distal | | | | | | donut Specimen | | | | | | Includes: Sigmoid | | | | | | colonRectumProcedure: | | | | | | Rectal/rectosigmoid | | | | | | colon (low anterior | | | | | | resection)Tumor Site: | | | | | | RectumTumor Size: | | | | | | Cannot be determined | | | | | | (see comment)Comment: | | | | | | No residual carcinoma | | | | | | presentMacroscopic Tumor | | | | | | Perforation: Not | | | | | | identifiedHistologic | | | | | | Type: Carcinoma, | | | | | | type cannot be | | | | | | determinedHistologic | | | | | | Grade: Cannot be | | | | | | assessedMicroscopic | | | | | | Tumor ExtensionNo | | | | | | evidence of primary | | | | | | tumorAJCC Stage (7th | | | | | | Edition) (pTNM)TNM | | | | | | Descriptors: y | | | | | | (post-treatment)Primary | | | | | | Tumor (pT): [id number] | | | | | | Lymph Nodes (pN): | | | | | | pNXNumber of regional | | | | | | lymph nodes examined: | | | | | | 15Number of regional | | | | | | lymph nodes involved: | | | | | | 0Distant | | | | | | Metastasis (pM): Not | | | | | | applicableMarginsProxima | | | | | | l Margin: Negative | | | | | | for invasive | | | | | | carcinomaDistal Margin: | | | | | | Negative for invasive | | | | | | carcinomaRadial Margin: | | | | | | Negative for invasive | | | | | | carcinomaLateral Margin: | | | | | | Not | | | | | | applicableTreatment | | | | | | Effect: PresentNo | | | | | | residual tumor (complete | | | | | | response, grade | | | | | | 0)Angiolymphatic | | | | | | Invasion: | | | | | | AbsentPerineural | | | | | | Invasion: | | | | | | AbsentTumor Deposits: | | | | | | Not identified | | | | | | Clinical History:The | | | | | | patient is a 65-year-old | | | | | | male with rectal cancer | | | | | | ([id number]). | | | | | | Thepatient is status | | | | | | post chemoradiation as | | | | | | of 05/26/2010. | | | | | | Gross | | | | | | Description:Received are | | | | | | 2 specimens fresh in | | | | | | containers labeled with | | | | | | the patient | | | | | | name(initials ) and: | | | | | | A: Rectum: | | | | | | Received is a 25 cm in | | | | | | length segment of large | | | | | | bowelconsisting of | | | | | | sigmoid and rectum with | | | | | | the proximal margin | | | | | | closed vianumerous | | | | | | embedded surgical | | | | | | raji and the distal | | | | | | margin opened. There | | | | | | bakari distinct peritoneal | | | | | | reflection measuring | | | | | | 20.5 cm in length, | | | | | | flaring tothe distal | | | | | | margin. The serosa is | | | | | | a red-purple with no | | | | | | areas of indurationor | | | | | | adhesions, and there is | | | | | | a large amount of | | | | | | attached fat. The | | | | | | margins andperitoneal | | | | | | reflection are inked | | | | | | black, and on opening, | | | | | | there is an | | | | | | ovoid,smooth, pale cabezas, | | | | | | flattened, mildly | | | | | | indurated, slightly | | | | | | concave mucosallesion | | | | | | with surrounding | | | | | | submucosal ink staining | | | | | | measuring 1.3 x 0.9 | | | | | | cm.This is noted on the | | | | | | anterior rectum and | | | | | | involves approximately | | | | | | 15% of theluminal | | | | | | circumference and is 1.7 | | | | | | cm from the nearest | | | | | | distal margin and 22.3cm | | | | | | from the proximal | | | | | | margin. Serial | | | | | | sectioning through the | | | | | | lesion reveals the | | | | | | submucosal tissue to | | | | | | havea dense, white cut | | | | | | surface averaging 0.2 cm | | | | | | thick with extension up | | | | | | to butnot through the | | | | | | muscularis. No obvious | | | | | | residual tumor is | | | | | | identified.Examination | | | | | | of the remaining mucosa | | | | | | reveals it to be | | | | | | glistening cabezas-pinkwith | | | | | | an average circumference | | | | | | of 6.5 cm. No | | | | | | additional lesions | | | | | | areidentified, and the | | | | | | majority of the rectum | | | | | | is smooth with loss of | | | | | | thenormal fold pattern. | | | | | | The proximal margin is | | | | | | entirely submitted, and | | | | | | theentire gross lesion | | | | | | is entirely submitted. | | | | | | B: Distal donut: | | | | | | Received is a 2 cm in | | | | | | diameter x 0.9 cm in | | | | | | lengthsegment of bowel | | | | | | with 1 margin opened and | | | | | | the opposite with | | | | | | embeddedsurgical | | | | | | raji. Exposed | | | | | | mucosa is a smooth pale | | | | | | cabezas. All tissue | | | | | | withthe exception of | | | | | | that embedded within | | | | | | surgical raji is | | | | | | submitted. | | | | | | Cassette Index:A: | | | | | | Rectum:A1-2, A3-4, | | | | | | longitudinal section, | | | | | | bisected, lesion to | | | | | | distal margin (A2, | | | | | | T4owcczy margins)A5-6, | | | | | | longitudinal sections of | | | | | | mass to distal | | | | | | marginA7, additional | | | | | | remaining distal margin | | | | | | en faceA8, proximal | | | | | | marginA9, random | | | | | | sections [id number], nine | | | | | | possible lymph [id number], | | | | | | eight possible lymph | | | | | | [id number], seven possible | | | | | | lymph [id number], three | | | | | | possible lymph nodesB: | | | | | | Distal | | | | | | donut:[id number]/EMF/sg | | | | | | My electronic signature | | | | | [...] Diagnostician: | | | | | | Mushtaq Beatty | | | | | | M.D.PathologistElectroni | | | | | | marco Signed 08/02/2010 | | | | | | 11:28AM | | | | + + + + + + + + | Specimen | + + | | + + + + + + + | Performing | Address | City/State/Zipcode | Phone Number | | Organization | | | | + + + + + | [facility] | [address] | [place] [address] | | | PATHOLOGY | [address] [...] | | | + +--------+ +-------+------+------+ | alvimopan (aka ENTEREG) capsule | Given | 07/26/19 | 12 mg | | | | 12 mg 12 mg, oral, PREPROCEDURE | | 11 1:14 | | | | | ONCE, 1 dose, Starting Wed | | PM PST | | | | | 07/26/10 at 1300, Until Wed | | | | | | | 07/26/10 at 1314 | | | | | | + +--------+ +-------+------+------+ +---+---+ | | | +---+---+ + +-------+ +-------+---+---+ | alvimopan (aka ENTEREG) capsule | Given | 07/29/19 | 12 mg | | | | 12 mg 12 mg, oral, TWICE DAILY, | | 11 7:54 | | | | | 14 doses, First dose on Josefa | | PM PST | | | | | 07/27/10 at 0900, Last dose on Sat | | | | | | | 08/02/10 at 2100 | | | | | | + +-------+ +-------+---+---+ +-------+ +-------+---+---+ | Given | 07/29/19 | 12 mg | | | | | 11 10:00 | | | | | | AM PST | | | | +-------+ +-------+---+---+ | Given | 07/28/19 | 12 mg | | | | | 11 9:10 | | | | | | PM PST | | | | +-------+ +-------+---+---+ + +---+ | | | + +---+ | alvimopan (aka ENTEREG) capsule | | | 1 dose, Starting 07/26/10 at | | | 1311, Until 07/26/10 at 1314 | | + +---+ | | | + +---+ + +-------+ +-------+---+---+ | atorvastatin (aka LIPITOR) | Given | 07/29/19 | 80 mg | | | | tablet 80 mg 80 mg, oral, DAILY, | | 11 7:54 | | | | | First dose on Josefa 07/27/10 at | | PM PST | | | | | 1800, Until Discontinued | | | | | | + +-------+ +-------+---+---+ +-------+ +-------+---+---+ | Given | 07/28/19 | 80 mg | | | | | 11 5:32 | | | | | | PM PST | | | | +-------+ +-------+---+---+ | Given | 07/27/19 | 80 mg | | | | | 11 7:04 | | | | | | PM PST | | | | +-------+ +-------+---+---+ +---+---+ | | | +---+---+ + +---------+ +-------+-------+---+ | dextrose 5%-NaCl 0.45%-KCl 20 | New Bag | 07/28/19 | 125 | 125 | | | mEq/L IV infusion 125 mL/hr, | | 11 2:30 | mL/hr | mL/hr | | | intravenous, CONTINUOUS, Starting | | AM PST | | | | | 07/26/10 at 2045, Until Fri | | | | | | | 07/28/10 at 0849 | | | | | | + +---------+ +-------+-------+---+ +---------+ +-------+-------+---+ | New Bag | 07/27/19 | 125 | 125 | | | | 11 1:51 | mL/hr | mL/hr | | | | PM PST | | | | +---------+ +-------+-------+---+ | New Bag | 07/27/19 | 125 | 125 | | | | 11 5:01 | mL/hr | mL/hr | | | | AM PST | | | | +---------+ +-------+-------+---+ +---+---+ | | | +---+---+ + +-------+ +-------+---+---+ | diphenhydrAMINE (aka BENADRYL) | Given | 07/28/19 | 25 mg | | | | capsule 25-50 mg 25-50 mg, oral, | | 11 5:31 | | | | | EVERY 6 HOURS NEEDED, | | PM PST | | | | | Starting [facility] 07/27/10 at 0114, | | | | | | | Until 07/29/10 at 1501, | | | | | | | itching, insomnia | | | | | | + +-------+ +-------+---+---+ +-------+ +-------+---+---+ | Given | 07/28/19 | 25 mg | | | | | 11 12:07 | | | | | | PM PST | | | | +-------+ +-------+---+---+ +---+---+ | | | +---+---+ + +-------+ +-------+---+---+ | enoxaparin (aka LOVENOX) | Given | 07/30/19 | 40 mg | | | | injection 40 mg 40 mg, | | 11 12:00 | | | | | subcutaneous, DAILY, First dose | | PM PST | | | | | on [facility] 07/27/10 at 0900, Until | | | | | | | Discontinued | | | | | | + +-------+ +-------+---+---+ +-------+ +-------+---+---+ | Given | 07/29/19 | 40 mg | | | | | 11 10:00 | | | | | | AM PST | | | | +-------+ +-------+---+---+ | Given | 07/28/19 | 40 mg | | | | | 11 8:51 | | | | | | AM PST | | | | +-------+ +-------+---+---+ +---+---+ | | | +---+---+ + +-------+ +--------+---+---+ | fentaNYL citrate (PF) (aka | Given | 07/26/19 | 50 mcg | | | | SUBLIMAZE) injection 50 mcg 50 | | 11 4:00 | | | | | mcg, intravenous, EVERY 1 HOUR | | PM PST | | | | | NEEDED, Starting 07/26/10 at | | | | | | | 1535, Until Josefa 07/27/10 at 0114, | | | | | | | moderate pain, for headache | | | | | | + +-------+ +--------+---+---+ +---+---+ | | | +---+---+ + +-------+ +---------+---+---+ | fentaNYL citrate (PF) (aka | Given | 07/26/19 | 100 mcg | | | | SUBLIMAZE) injection 50-200 mcg | | 11 9:08 | | | | | 50-200 mcg, intravenous, | | PM PST | | | | | POSTPROCEDURE PRN, Starting Sat | | | | | | | 07/26/10 at 1729, Until Wed | | | | | | | 07/26/10 at 2205, moderate pain | | | | | | + +-------+ +---------+---+---+ + +---+ | | | + +---+ | fentaNYL citrate (PF) (aka | | | SUBLIMAZE) injection 1 dose, | | | Starting Sat07/26/10 at 1543, | | | Until Sat07/26/10 at 1600 | | + +---+ | | | + +---+ + +-------+ +-------+---+---+ | hydrALAZINE (aka APRESOLINE) | Given | 07/26/19 | 10 mg | | | | injection 10 mg 10 mg, | | 11 8:33 | | | | | intravenous, POSTPROCEDURE PRN, 2 | | PM PST | | | | | doses, Starting Sat07/26/10 at | | | | | | | 1729, Until Sat07/26/10 at 2205, | | | | | | | hypertension | | | | | | + +-------+ +-------+---+---+ + +---+ | | | + +---+ | hydrALAZINE (aka APRESOLINE) | | | injection 1 dose, Starting Sat | | | 07/26/10 at 2030, Until Wed | | | 07/26/10 at 2032 | | + +---+ | | | + +---+ + +-------+ +------+---+---+ | HYDROmorphone (aka DILAUDID) | Given | 07/26/19 | 1 mg | | | | injection 0.2-0.5 mg 0.2-0.5 mg, | | 11 9:15 | | | | | intravenous, POSTPROCEDURE PRN, | | PM PST | | | | | Starting 07/26/10 at 1729, | | | | | | | Until 07/26/10 at 2204, | | | | | | | moderate pain | | | | | | + +-------+ +------+---+---+ + +---+ | | | + +---+ | HYDROmorphone (aka DILAUDID) | | | injection 1 dose, Starting Wed | | | 07/26/10 at 2030, Until Wed | | | 07/26/10 at 2115 | | + +---+ | | | + +---+ + + + +--------+--------+---+ | HYDROmorphone 25 mg in | Rate/Dos | 07/26/19 | 0.2 mg | mL/hr | | | bacteriostatic NaCl 0.9% 50 mL | e Verify | 11 10:34 | | | | | ACCOUNT DIRECTOR infusion intravenous, | | PM PST | | | | | CONTINUOUS, Starting 07/26/10 | | | | | | | at 2045, Until 07/28/10 at | | | | | | | 0849 | | | | | | + + + +--------+--------+---+ + + +--------+-------+---+ | Rate/Dose Change | 07/26/19 | mg | 0.2 | | | | 11 9:17 | | mL/hr | | | | PM PST | | | | + + +--------+-------+---+ | Given | 07/26/19 | 0.1 mg | | | | | 11 8:36 | | | | | | PM PST | | | | + + +--------+-------+---+ + +---+ | | | + +---+ | HYDROmorphone ACCOUNT DIRECTOR infusion 1 | | | dose, Starting 07/26/10 at | | | 2014, Until 07/26/10 at 2035 | | + +---+ | | | + +---+ + +-------+ +-------+---+---+ | hydrOXYzine (aka ATARAX) tablet | Given | 07/29/19 | 10 mg | | | | 10 mg 10 mg, oral, EVERY 6 | | 11 8:08 | | | | | HOURS NEEDED, Starting Sat | | PM PST | | | | | 07/29/10 at 1500, Until Sun | | | | | | | 07/30/10 at 1834, itching | | | | | | + +-------+ +-------+---+---+ +---+---+ | | | +---+---+ + +-------+ +---------+---+---+ | insulin aspart (aka NOVOLOG) | Given | 07/27/19 | 2 Units | | | | injection 1-16 Units 1-16 Units, | | 11 1:45 | | | | | subcutaneous, AFTER MEALS AND | | PM PST | | | | | BEDTIME, First dose (after last | | | | | | | modification) on Josefa 07/27/10 at | | | | | | | 0045, Until Discontinued | | | | | | + +-------+ +---------+---+---+ +-------+ +---------+---+---+ | Given | 07/27/19 | 1 Units | | | | | 11 6:46 | | | | | | AM PST | | | | +-------+ +---------+---+---+ +---+---+ | | | +---+---+ + +---------+ + + +---+ | lactated ringers IV 10 mL/hr, | New Bag | 07/26/19 | 10 mL/hr | 10 mL/hr | | | intravenous, PROCEDURE | | 11 1:01 | | | | | CONTINUOUS, Starting 07/26/10 | | PM PST | | | | | at 1315, Until 07/26/10 at | | | | | | | 2205 | | | | | | + +---------+ + + +---+ +---+---+ | | | +---+---+ + +-------+ +-----+---+---+ | magnesium sulfate IV 4 g 4 g, | Given | 07/27/19 | 4 g | | | | intravenous, ONCE, 1 dose, Josefa | | 11 1:51 | | | | | 07/27/10 at 1300 | | PM PST | | | | + +-------+ +-----+---+---+ +---+---+ | | | +---+---+ + +-------+ +------+---+---+ | ondansetron (aka ZOFRAN) | Given | 07/28/19 | 4 mg | | | | injection 4 mg 4 mg, | | 11 9:15 | | | | | intravenous, EVERY 12 HOURS | | AM PST | | | | | NEEDED, Starting [facility] 07/27/10 at | | | | | | | 1214, Until 07/30/10 at 1834, | | | | | | | nausea/vomiting | | | | | | + +-------+ +------+---+---+ +---+---+ | | | +---+---+ + +-------+ +-------+---+---+ | oxyCODONE immediate release | Given | 07/30/19 | 10 mg | | | | (aka ROXICODONE) tablet 5-15 mg | | 11 12:32 | | | | | 5-15 mg, oral, EVERY 3 HOURS | | PM PST | | | | | NEEDED, Starting Sat07/28/10 at | | | | | | | 0849, Until 07/30/10 at 1834, | | | | | | | moderate pain | | | | | | + +-------+ +-------+---+---+ +-------+ +-------+---+---+ | Given | 07/30/19 | 10 mg | | | | | 11 9:30 | | | | | | AM PST | | | | +-------+ +-------+---+---+ | Given | 07/30/19 | 10 mg | | | | | 11 4:33 | | | | | | AM PST | | | | +-------+ +-------+---+---+ +---+---+ | | | +---+---+ + +-------+ +------+---+---+ | prochlorperazine (aka | Given | 07/27/19 | 5 mg | | | | COMPAZINE) injection 2.5-10 mg | | 11 11:48 | | | | | 2.5-10 mg, intravenous, EVERY 4 | | AM PST | | | | | HOURS NEEDED, Starting [facility] | | | | | | | 07/27/10 at 0114, Until Sun | | | | | | | 07/30/10 at 1834, nausea/vomiting | | | | | | + +-------+ +------+---+---+ +-------+ +--------+---+---+ | Given | 07/27/19 | 2.5 mg | | | | | 11 10:00 | | | | | | AM PST | | | | +-------+ +--------+---+---+ +---+---+ | | | +---+---+ + +-------+ +--------+---+---+ | ranitidine (aka ZANTAC) tablet | Given | 07/30/19 | 150 mg | | | | 150 mg 150 mg, oral, TWICE | | 11 12:00 | | | | | DAILY, First dose on [facility] 07/27/10 | | PM PST | | | | | at 0115, Until Discontinued | | | | | | + +-------+ +--------+---+---+ +-------+ +--------+---+---+ | Given | 07/29/19 | 150 mg | | | | | 11 7:54 | | | | | | PM PST | | | | +-------+ +--------+---+---+ | Given | 07/29/19 | 150 mg | | | | | 11 10:00 | | | | | | AM PST | | | | +-------+ +--------+---+---+ +---+---+ | | | +---+---+ + +-------+ +-------+---+---+ | trazodone (aka DESYREL) tablet | Given | 07/30/19 | 50 mg | | | | 50 mg 50 mg, oral, AT BEDTIME | | 11 12:13 | | | | | NEEDED, Starting 07/29/10 at | | AM PST | | | | | 2329, Until 07/30/10 at 1834, | | | | | | | insomnia | | | | | | + +-------+ +-------+---+---+ +---+---+ | | | +---+---+ documented in this encounter
--- OUTSIDE RECORDS SUMMARY | ~2019-11-22 | XMS | Encounter Summary ---
Demographics + + + | Address | [address] | | | [place] [address] | + + + | Home Phone [...] Team Providers + +------+ + | Care Casting Trucker Name | Role | Phone | + [...] | | [address] | [place] [address] | | | | | [place] | [phone] | | | | | [address] | | | | | | [phone] | | | +--------+---------+ + + + [...] from t he original. Kemal Damian MD [address] [place] [address], [address] [place], [place] [address] FAX: NEUROSURGERY FOLLOW-UP CHIEF COMPLAINT: Chief Complaint [...] INSTRUMENTATION performed by Kemal Damian MD at [facility] [place] CURRENT MEDICATIONS: Current Outpatient Prescriptions Medication Sig Dispense Refill acetaminophen (TYLENOL) 325 mg tablet Take 325 mg by mouth Daily. Prn pain Twewdncfh-Kkotbinflpo-Aeh D (GLUCOSAMINE COMPLEX PO) Take 2 tablets [...] 2 or 3 Vw (07/30/2014 11:51 AM [facility]) + + | Specimen | + [...] + | MISCELLANEOUS LAB | | | [phone] | + +---------+ + + | MISCELANIOUS LAB | | | [phone] | + +---------+ + + documented in this encounter Visit Diagnoses + + | Diagnosis | + + | S/P lumbar fusion - Primary Arthrodesis status | + + documented in this encounter
--- OUTSIDE RECORDS SUMMARY | ~2019-11-22 | XMS | Encounter Summary ---
Demographics + + + | Address | [address] | | | [place] [address] | + + + | Home Phone | | + + + | Preferred Language | Unknown | + + + | Marital Status | | + + + | Latter-Day Affiliation | PRE | + + + | Race | White | + + + | Ethnic Group | Not or | + + + Author + + + | Author | [facility] | + + + | Organization | [facility] | + + + | Address | Unknown | + + + | Phone | Unavailable | + + + Support + + + + + | Name | Relationship | Address | Phone | + + + + + | Ricarda Johnson | ECON | [address] | | | | | [place] | | | | | [address] | | + + + + + Care Team Providers + +------+ + | Care Chief Gauger Name | Role | Phone | + [...] | Surgery | Diagnoses | Berta | Berta | | | | | Malignant | Edgar Zuñiga MD | Edgar Zuñiga MD | | | | | neoplasm of | [address] | | | | | rectum (HCC) | [address] | [address] | | | | | Procedures | Diana [place] | Tre Covarrubias, | | | | | REQUEST TO | [place], [place] | [place] | | | | | SURGERY | [address] | [address] | | | | | TOUR SALES REPRESENTATIVE | Phone: | Phone: | | | | | [place] PART | [phone] | [phone] | | | | | REMOVAL | Fax: | Fax: | | | | | COLON W | [phone] | [phone] | | | | | COLOPROCTOST | | | | | | | [place] | | | | | | | PROCTECTOMY, | | | | | | | AP | | | | | | | RESECT+OSTOM | | | | | | | Y | | | +--------+--------+ + + + + Encounter Details +--------+ + + + + | Date | Type | Department | Care Team | Description | +--------+ + + + + | 07/17/ | Tow [facility] | [facility] | Edgar Hampton, | Malignant neoplasm | | 2010 | | [facility] [address] | [address] | of rectum (HCC) | | | | [address] | [address] | (Primary Dx) | | | | Mailcode: R[place] | [place], [place] | | | | | [facility] and | [address] | | | | | [facility] | [phone] | | | | | [place], [place] | | | | | | [address] | | | | | | [phone] | | | +--------+ + + + [...]
--- OUTSIDE RECORDS SUMMARY | ~2019-11-22 | XMS | Encounter Summary ---
Demographics + + + | Address | [address] | | | [place] [address] | + + + | Home Phone [...] + | Ricarda Johnson | ECON | [address] | | | | | [place] | | | | | [address] | | + + + + + Care Team Providers + +------+ + | Care Cavity Pump Operator Name | Role | Phone | [...] [place] | | | | | | [facility] [place] | [place], [place] | | | | | | [address] | [address] | | | | | | Phone: | Phone: | | | | | | [phone] | [phone] | | | | | | Fax: | Fax: | | | | | | [phone] | [phone] | +--------+--------+ + + + + Encounter [...] | | | | [facility] | [place] [address] | | | | | [address], [address] floor | [phone] | | | | | [place], [place] | | | | | | [address] | | | | | | [phone] | | | +--------+---------+ + + + [...] Rodriguez MD Pulmonary & Critical Care Medicine [address] [place] [id number] Primary Care Physician: [facility] [address] [place] [id number] Mr. Johnson presents to [facility] [...] 12 he presented to the ED in [place] and was given IV glucocorticoid and a course of oral prednisone. He got no better and was was readmitted to the OSH on 07/30/2011. He was febrile to 104.5 with rigors, and was found to have MSSA bacteremia and was therefore transferred to [facility] on 08/01/2011. At [facility], no source for the MSSA bacteremia was [...] 6-8 week course of Ceftriaxone was recommended. [facility] was contracted for these services, with his PCP providing weekly labs and PICC dressing changes. The patient was deemed suitable for discharge to home on 08/09/2011. [facility] OPAT foll ow-up was planned in 2-3 weeks time. Relevant Radiology: 06/11/11: MRI Lumbar Spine at [facility] notable for L sacral lesion with contrast enhance ment suspicious for met 06/20/11: CT chest, abd, pelvis w/contrast at [facility] with "no definite metastatic disease" 06/21/11: [facility] PET Scan "geographic left sacral ala FDG hypermetabolism most likely represen ting insufficiency fracture" 06/29/11: Bone Scan at [facility] "intense radiotracer activity in the L sacrum along the L sacroiliac joint from top to bottom in a pattern that suggests a fracture" 06/29/11: MRI pelvis from [facility] "abnormal signal intensity and enhancement in the lef t sacrum, left ilium, right ilium, and L5 pedical and L5 vertebral body. The [facility] CT scan al so demonstrates and L1 [...] Take 1 Cap by mouth once daily. Godley-3 Fatty Acids-Vitamin E (FISH OIL) 1,000 mg [...] above discussion. JHON JACKSON MD INFECTIOUS DISEASES [facility] [facility] Mailcode: [id number] [facility] [address] documented in this e ncounter Plan of Treatment Not on filedocumented as of this encounter Visit Diagnoses + + | Diagnosis | + + | Bacteremia | + + | Osteomyelitis of spine (HCC) Unspecified osteomyelitis, other specified site | + + documented in this encounter
--- OUTSIDE RECORDS SUMMARY | ~2019-11-22 | XMS | Encounter Summary ---
Demographics + + + | Address | [address] | | | [place] [address] | + + + | Home Phone [...] + + + | Author | [facility] | + + + | Organization | [facility] | + + + | Address | Unknown | + + + | Phone | Unavailable | + + + Support + + + + + | Name | Relationship | Address | Phone | + + + + + | Ricarda Johnson | ECON | [address] | | | | | [place] | | | | | [phone] | | + + + + + Care Team Providers + +------+ + | Care Chief Underwriter Name | Role | Phone | + +------+ + | Hay Greco MD | PCP | | + +------+ + Encounter Details +--------+ + + + + | Date | Type | Department | Care Team | Description | +--------+ + + + + | 10/29/ | Documentati | [facility] | Edgar [facility], | | | 2011 | on | [facility] [address] | [address] | | | | | Debbie Mock | Taran Ortiz | | | | | Mailcode: Center | [place], [place] | | | | | [facility] | [address] | | | | | Healing, [address] | [phone] | | | | | [place], [place] | | | | | | [address] | | | | | | [phone] | | | +--------+ + + + [...]
--- OUTSIDE RECORDS SUMMARY | ~2019-11-22 | XMS | Encounter Summary ---
Demographics + + + | Address | [address] | | | [place] [address] | + + + | Home Phone [...] Team Providers + +------+ + | Care Healthcare Manager Name | Role | Phone | [...] Provider Unknown | | | | | [place], [place] | [phone] | | | | | [address] | | | | | | [phone] | | | +--------+ + + + [...]
--- OUTSIDE RECORDS SUMMARY | ~2019-11-22 | XMS | Encounter Summary ---
Demographics + + + | Address | [address] | | | [place] [address] | + + + | Home Phone | | + + + | Preferred Language | Unknown | + + + | Marital Status | | + + + | Rastafari Affiliation | PRE | + + + | Race | White | + + + | Ethnic Group | Not or | + + + Author + + + | Author | [facility] | + + + | Organization | [facility] | + + + | Address | Unknown | + + + | Phone | Unavailable | + + + Support + + + + + | Name | Relationship | Address | Phone | + + + + + | Ricarda Johnson | ECON | [address] | | | | | [place] | | | | | [address] | | + + + + + Care Team Providers + +------+ + | Care Director Telemetry Name | Role | Phone | + [...] | +--------+ + + + + | 10/28/ | Hospital | [facility] GI PROCEDURE | Edgar Hampton, | | | 2011 | Encounter | [address] | [address] [facility] | | | | | Emili Mailcode: [facility] | Taran [address] | | | | | [facility] | [place], [place] | | | | | Health and Healing, | [address] | | | | | [place] [address] | [phone] | | | | | [place], [place] | | | | | | [address] | | | | | | [phone] | | | +--------+ + + + [...] + + + | Blood Pressure | 154/87 | 10/29/2011 1:44 PM | | | | | PDT | | + + + + + | Pulse | 65 | 10/29/2011 1:44 PM | | | | | PDT | | + + + + + | Temperature | - | - | | + + + + + | Respiratory Rate | 14 | 10/29/2011 1:44 PM | | | | | PDT | | + + + + + | Oxygen Saturation | 97% | 10/29/2011 1:44 PM | | | | | PDT | | + + + + + | Inhaled Oxygen | - | - | | | Concentration | | | | + + + + + | Weight | 79.4 kg (175 lb) | 10/29/2011 12:39 PM | | | | | PDT | | + + + + + | Height | - | - | | + + + + + | Body Mass Index | 25.84 | 09/21/2011 12:10 PM | | | | | PST | | + + + + + documented in this encounter Discharge Instructions Instructions Jonathan Pollock RN - 10/29/2011Home Care Instructions after Colonoscopy You may resume your normal diet and medications unless told otherwise. Medications The medications you received can cause you to be forgetful and drowsy and will take the rem ainder of the day to wear off. DO NOT drink alcohol, drive, operate heavy machinery, sign legal documents, or make major d ecisions until tomorrow. Common After Effects mild abdominal pain, bloating, and excessive gas. This is caused by the air that was pu t in your colon during the procedure. These symptoms will improve as you pass gas. Activity Light activity such as walking will help you pass the air that was put into your colon. Complications Call your GI doctor if you have: Abnormal pain or any new unexplained symptoms. Bright red rectal bleeding Fever above 101.5 Redness, pain, or swelling at your IV site that is not relieved with warm compress. For any questions related to your procedure call: Saturday- Saturday 8:00- 4:30 Endoscopy Toll free ext: [phone] or After business hours, or on weekends and holidays call the Hospital [facility] Installer Toll Free 1 [phone] Ext. [phone] or and have the GI doctor electrical controls technician paged. The provider who performed your procedure is: Dr. Hampton Results of your exam: Poor prep Recommended follow up Colonoscopy: repeat exam after ileostomy takedown. Follow up Appointments with: Dr. Hampton Your primary care provider or referring provider will receive copies of the procedure repor t and all pathology reports with recommendations for treatment documented in this encounter Medications at Time [...] + + + +---------+ + + | [place]-3 Fatty | Take by mouth. | | [...] documented as of this encounter Progress Notes Edgar Hampton MD - 10/29/2011 1:36 PM PDTColonoscopy attempted, incomplete due to mucu s impaction and inability to provide adequate visualization. Will repeat after ileostomy sonu sure with better prep. P Edgar Campbell MD - 10/29/2011 1:08 PM PDTFormatting of this note might be different f rom the original. PRE PROCEDURE NOTE: MR# [id number] Subjective: Cosmo Johnson is a 66 y.o. male presents today for colonoscopy for nash rveillance of rectal ca. Dx with uT3N1 rectal ca late 2009, resected in aug 2010 with compl ete UT. First surveillance colonoscopy. Medications reviewed Allergies: Allergies as of 10/22/2011 - reviewed 09/21/2011 Allergen Reaction Noted Betadine (povidone-iodine) Rash 09/21/2011 ROS: All others negative. Objective: Vital Signs: BP 148/78 | Pulse 61 | RR 16 | Wt 79.379 kg (175 lb) | SpO2 97% Neuro: patient is Patient oriented X3. Mallampati Score: I Neck normal Respiratory Lungs clear Cardiac Regular rhythm Abdomen: soft, nontender, no masses Impression Rectal cancer, due for surveillance Plan Colonoscopy PARQ held and all questions addressed. See procedure note 10/29/2011 documented in this e ncounter Plan of Treatment Not on filedocumented as of this encounter Procedures + +--------+ + + + | Procedure Name | Priori | Date/Time | Associated Diagnosis | Comments | | | ty | | | | + +--------+ + + + | COLONOSCOPY | | 10/29/2011 | | Results for this | | | | 12:00 AM | | procedure are in the | | | | PDT | | results section. | + +--------+ + + + documented in this encounter Results COLONOSCOPY (10/29/2011 12:00 AM PDT) + + + | Narrative | Performed At | + + + | | | + + + + + | Transcriptions | + + | Cy Toribio - 10/29/2011 1:49 PM PDT | + + documented in this encounter Visit Diagnoses Not on filedocumented in this encounter Administered Medications + +---------+ +---------+--------+------+ | Medication Order | MAR | Action | Dose | Rate | Site | | | Action | Date | | | | + +---------+ +---------+--------+------+ | fentaNYL citrate (PF) (aka | New Bag | 10/29/19 | 125 mcg | mL/hr | | | SUBLIMAZE) injection 25-300 mcg | | 12 1:27 | | | | | 25-300 mcg, intravenous, HSD PRN, | | PM PDT | | | | | Starting Sat10/29/11 at 1227, | | | | | | | Until Sat10/29/11 at 2011, | | | | | | | moderate pain, sedation/analgesia | | | | | | + +---------+ +---------+--------+------+ + +---+ | | | + +---+ | fentaNYL citrate (PF) (aka | | | SUBLIMAZE) injection 1 dose, | | | Starting Sat10/29/11 at 1305, | | | Until Sat10/29/11 at 1327 | | + +---+ | | | + +---+ + +---------+ +------+--------+---+ | midazolam (aka VERSED) | New Bag | 10/29/19 | 5 mg | mL/hr | | | injection 1-10 mg 1-10 mg, | | 12 1:28 | | | | | intravenous, HSD PRN, Starting | | PM PDT | | | | | 10/29/11 at 1227, Until Mon | | | | | | | 10/29/11 at 2011, sedation | | | | | | + +---------+ +------+--------+---+ + +---+ | | | + +---+ | midazolam (aka VERSED) | | | injection 1 dose, Starting Mon | | | 10/29/11 at 1305, Until Mon | | | 10/29/11 at 1328 | | + +---+ | | | + +---+ + +---------+ + + +---+ | NaCl 0.9 % IV 50 mL/hr, | New Bag | 10/29/19 | 50 mL/hr | 50 mL/hr | | | intravenous, CONTINUOUS, Starting | | 12 1:28 | | | | | 10/29/11 at 1230, Until Mon | | PM PDT | | | | | 10/29/11 at 2010 | | | | | | + +---------+ + + +---+ +---+---+ | | | +---+---+ documented in this encounter"
--- OUTSIDE RECORDS SUMMARY | ~2019-11-22 | XMS | Encounter Summary ---
Demographics + + + | Address | [address] | | | [place] [address] | + + + | Home Phone | | + + + | Preferred Language | Unknown | + + + | Marital Status | | + + + | Quaker Affiliation | PRE | + + + | Race | White | + + + | Ethnic Group | Not or | + + + Author + + + | Author | [facility] | + + + | Organization | [facility] | + + + | Address | Unknown | + + + | Phone | Unavailable | + + + Support + + + + + | Name | Relationship | Address | Phone | + + + + + | Ricarda Johnson | ECON | [address] | | | | | [place] | | | | | [address] | | + + + + + Care Team Providers + +------+ + | Care Lieutenant Governor Name | Role | Phone | + +------+ + | Hay Greco MD | PCP | | + +------+ + Encounter Details +--------+ + + + + | Date | Type | Department | Care Team | Description | +--------+ + + + + | 06/22/ | Documentati | Dig[facility]ive Health | Edgar Hampton, | | | 2010 | on | [facility] [address] | [address] | | | | | Debbie Mock | [address] | | | | | Mailcode: Center | [place], [place] | | | | | for Health and | [address] | | | | | Healing, Building [address] | [phone] | | | | | [place], [place] | | | | | | [address] | | | | | | [phone] | | | +--------+ + + + [...]
--- OUTSIDE RECORDS SUMMARY | ~2019-11-22 | XMS | Encounter Summary ---
Demographics + + + | Address | [address] | | | [place] [address] | + + + | Home Phone | | + + + | Preferred Language | Unknown | + + + | Marital Status | | + + + | Sikhism Affiliation | 1077 | + + + | Race | Unknown | + + + | Ethnic Group | Unknown | + + + Author + + + | Author | [facility] | | | and [place] | + + + | Organization | [facility] | | | [...] Team Providers + +------+ + | Care Psychologist Private Practice Name | Role | Phone | + +------+ + | Hay Greco MD | PCP | | + +------+ + Encounter Details +--------+ + + + + | Date | Type | Department | Care Team | Description | +--------+ + + + + | 12/20/ | [facility] | [facility] | Pedro Marc, | Elevated blood | | 2013 - | Encounter | CENTER SURG[facility] [address] | MD [address] | pressure reading | | | | [address] | [place], [place] | without diagnosis of | | 12/21/ | | [place], [place] | [address] | hypertension; Renal | | 2012 | | [address] | | insufficiency; Mild | | | | [phone] | | anemia; Laceration | | | [...] Orthopedic Surgery Author Type: Physician Filed: 12/21/12 9089 Date of Service: 12/21/12 1207 Status: Signed Client Support Coordinator: Pedro Marc MD (Physician) Related Notes: Original [...] 12/21/12906 Date of Service: 12/21/12906 Status: Signed Client Support Coordinator: Celeste Nick PT (Physical Therapist) 12/21/12 0800 [...] 12/20/122101 Date of Service: 12/20/122100 Status: Signed Client Support Coordinator: Sebastian Gallagher, RN (Registered Nurse) Report taken from ED. Pt bought to the floor. 15 minutes later report given to Felicita for surgery. onver shayy Transaction, Provider Unknown - 12/20/2012 7:35 PM PDT Progress Notes by Melissa Pearce RPH at 12/20/121934 Author: Melissa Pearce RPH Service: (none) Author Type: Pharmacist Filed: 12/20/121934 Date of Service: 12/20/121934 Status: Signed Client Support Coordinator: Melissa Pearce RPH (Pharmacist) Based on Crcl~47ml/min [...] Testing | | | performed at [facility] [place] [place] [address];[place] [address] | | + + + + +---------+ [...] | | | | | ONLY, -COMPUTER (638), | | | | | | copy editor Derrek Rowley | | | | | | (109) on 12/21/2012 | | | | | | 8:21:58 AM | | | | + + + + + + + + | Specimen | + + | | + + + + + | Narrative | Performed At | + + + | Historically converted procedure from [facility] environment | EXTERNAL LAB | + [...]
--- OUTSIDE RECORDS SUMMARY | ~2019-11-22 | XMS | Encounter Summary ---
Demographics + + + | Address | [address] | | | [place] [address] | + + + | Home Phone | | + + + | Preferred Language | Unknown | + + + | Marital Status | | + + + | Druze Affiliation | PRE | + + + | Race | White | + + + | Ethnic Group | Not or | + + + Author + + + | Author | [facility] | + + + | Organization | [facility] | + + + | Address | Unknown | + + + | Phone | Unavailable | + + + Support + + + + + | Name | Relationship | Address | Phone | + + + + + | Ricarda Johnson | ECON | [address] | | | | | [place] | | | | | [address] | | + + + + + Care Team Providers + +------+ + | Care Carroting Machine Operator Name | Role | Phone [...] | [facility] | JUNI Pace [address] | | | | | [address] | [address] | | | | | Loop Phys[address] | [place], [place] | | | | | Brian, rust floor | [address] | | | | | [place], [place] | [phone] | | | | | [address] | | | | | | [phone] | | | +--------+ + + + [...]
--- OUTSIDE RECORDS SUMMARY | ~2019-11-22 | XMS | Encounter Summary ---
Demographics + + + | Address | [address] | | | [place] [address] | + + + | Home Phone [...] + | Ricarda Johnson | ECON | [address] | | | | | [place] | | | | | [address] | | + + + + + Care Team Providers + +------+ + | Care Band Director Name | Role | Phone | + +------+ + | Hay Greco MD | PCP | | + +------+ + Encounter Details +--------+ + + + + | Date | Type | Department | Care Team | Description | +--------+ + + + + | 12/04/ | Abstract | Digestive Health | Edgar Hampton, | | | 2012 | | [place] [facility] [address] | [address] | | | | | De[address] | [address] | | | | | Mailcode: Center | [place], [place] | | | | | for Health and | [address] | | | | | [facility], [facility] [address] | [phone] | | | | | [place], [place] | | | | | | [address] | | | | | | [phone] | | | +--------+ + + + [...]
--- OUTSIDE RECORDS SUMMARY | ~2019-11-22 | XMS | Encounter Summary ---
Demographics + + + | Address | [address] | | | [place] [address] | + + + | Home Phone [...] + | Ricarda Johnson | ECON | [address] | | | | | [place] | | | | | [address] | | + + + + + Care Team Providers + +------+ + | Care Editor Trade Journal Name | Role | Phone | + [...] + + + + | 08/08/ | [facility] | Infectious | Rona Kulkarni | | | 2011 | | [facility] | JUNI Pace [address] | | | | | [address] | [address] | | | | | Loop Physician's | [place], [place] | | | | | Pavilion, 3rd floor | [address] | | | | | [place], [place] | [phone] | | | | | [address] | | | | | | [phone] | | | +--------+ + + + [...]
--- OUTSIDE RECORDS SUMMARY | ~2019-11-22 | XMS | Encounter Summary ---
Demographics + + + | Address | [address] | | | [place] [address] | + + + | Home Phone | | + + + | Preferred Language | Unknown | + + + | Marital Status | | + + + | Cheondoism Affiliation | 1077 | + + + | Race | Unknown | + + + | Ethnic Group | Unknown | + + + Author + + + | Author | [facility] | | | and [place] | + + + | Organization | [facility] | | | [...] Providers + +------+ + | Care Special Day Class Teacher Name | Role | Phone | [...] | | | [address] | [place] [address] | | | | | [place] [address] | | | | | | [phone] | | | +--------+ + + + [...]
--- OUTSIDE RECORDS SUMMARY | ~2019-11-22 | XMS | Encounter Summary ---
Demographics + + + | Address | [address] | | | [place] [address] | + + + | Home Phone [...] Team Providers + +------+ + | Care Surveying Technician Name | Role | Phone | + +------+ + | Aldo Frank DO | PCP | | + +------+ + Encounter Details +--------+ + + + + | Date | Type | Department | Care Team | Description | +--------+ + + + + | 08/07/ | Orders Only | [facility] | Barbara Marie, | | | 2018 | | [facility] | MD [address] | | | | | [address] | [place] [address] | | | | | [place], [place] | [phone] | | | | | [address] | | | | | | [phone] | | | +--------+ + + + [...] XR SHOULDER RIGHT 2 | Routin | 08/07/2017 | | Results for this | | + VW | e | 3:07 PM | | procedure are in the | | | | PST | | results section. | + +--------+ + + + documented in this encounter Results XR Shoulder Right 2 + Vw (08/07/2017 3:07 PM PST) + + | Specimen | [...] | AP, Grashey, scapular Y. Comparison views: 04/24/2017. The patient | | | is now status post right reversed total shoulder arthroplasty. The | | | prosthesis is in good position without evidence of failure or | | | loosening. Visualized lung gill are clear. Bony mineralization is | | | normal.. Impression: Status post right reversed total shoulder | | | arthroplasty, with good radiographic outcome.. BARBARA Dougherty | | | MD EDWINA 08/11/2017 BARBARA MARIE MD has created this entry | | | using [employer] Voice Recognition software and [employer] | | | macros. The entry has been reviewed and there may still exist | | | sound alike word errors. | | + + + + + | Procedure Note | + + | Reji, Rad Conversion - 03/05/2019 3:46 PM PDT History: This is a 72 y.o. year old | | male. Diagnosis for Order ICD-10-CM1. Primary osteoarthritis of right shoulder M19.011 | | X-ray shoulder rightcomplete 2+v. Findings: 3 views right shoulder. AP, Frank, | | scapular Y. Comparisonviews: 04/24/2017. The patient is now status post right reversed | | totalshoulder arthroplasty. The prosthesis is in good position without evidenceof | | failure or loosening. Visualized lung gill are clear. Bonymineralization is normal.. | | Impression: Status post right reversed total shoulder arthroplasty, withgood | | radiographic outcome.. BARBARA MARIE MD08/11/2017 BARBARA MARIE MD has created | | this entry using [employer]Recognition software and [employer] macros. The | | entry has been reviewed andthere may still exist sound alike word errors. | |mineralization is normal.. | | | |Impression: Status post right reversed total shoulder arthroplasty, with | |good radiographic outcome.. | | | | | |BARBARA MARIE MD | |08/11/2017 | | | |BARBARA MARIE MD has created this entry using [employer] | |Recognition software and [employer] macros. The entry has been reviewed and | |there may still exist sound alike word errors. | | | + + documented in this encounter Visit Diagnoses Not on filedocumented in this encounter"
--- OUTSIDE RECORDS SUMMARY | ~2019-11-22 | XMS | Encounter Summary ---
Demographics + + + | Address | [address] | | | [place] [address] | + + + | Home Phone | | + + + | Preferred Language | Unknown | + + + | Marital Status | | + + + | Pentecostal Affiliation | 1077 | + + + [...] Team Providers + +------+ + | Care Wardrobe Supervisor Name | Role | Phone | [...] | | [address] | [place] [address] | | | | | [place] | [phone] | | | | | [address] | | | | | | [phone] | | | +--------+ + + + [...]
--- OUTSIDE RECORDS SUMMARY | ~2019-11-22 | XMS | Encounter Summary ---
Demographics + + + | Address | [address] | | | [place] [address] | + + + | Home Phone | | + + + | Preferred Language | Unknown | + + + | Marital Status | | + + + | Advent Affiliation | 1077 | + + + | Race | Unknown | + + + | Ethnic Group | Unknown | + + + Author + + + | Author | [facility] | | | and [place] | + + + | Organization | [facility] | | | [...] Team Providers + +------+ + | Care Warehouse Guard Name | Role | Phone | + +------+ + | Hay Greco MD | PCP | | + +------+ + Reason for Visit + + + | Reason | Comments | + + + | Disability Form | | + + + Encounter Details +--------+ + + + + | Date | Type | Department | Care Team | Description | +--------+ + + + + | 04/30/ | Telephone | [facility] | Kemal Damian MD | Disability Form | | 2017 | | NEUROSURGERY [address] | [address] | | | | | [address] | [place] [address] | | | | | [place], [place] | [phone] | | | | | [address] | | | | | | [phone] | | | +--------+ + + + [...]
--- OUTSIDE RECORDS SUMMARY | ~2019-11-22 | XMS | Encounter Summary ---
Demographics + + + | Address | [address] | | | [place] [address] | + + + | Home Phone | | + + + | Preferred Language | Unknown | + + + | Marital Status | | + + + | Taoist Affiliation | PRE | + + + [...] + | Ricarda Johnson | ECON | [address] | | | | | [place] | | | | | [address] | | + + + + + Care Team Providers + +------+ + | Care Wire Coating Machine Operator Name | Role | Phone [...] | | | | Mailcode: Center | [place], [place] | | | | | for Health and | [address] | | | | | Healing, [address] | [phone] | | | | | [place], [place] | | | | | | [address] | | | | | | [phone] | | | +--------+ + + + [...]
--- OUTSIDE RECORDS SUMMARY | ~2019-11-22 | XMS | Encounter Summary ---
Demographics + + + | Address | [address] | | | [place] [address] | + + + | Home Phone | | + + + | Preferred Language | Unknown | + + + | Marital Status | | + + + | Confucianist Affiliation | 1077 | + + + | Race | Unknown | + + + | Ethnic Group | Unknown | + + + Author + + + | Author | [facility] | | | and [place] | + + + | Organization | [facility] | | | [...] Team Providers + +------+ + | Care Clinical Staff Educator Name | Role | Phone | + [...] | | [address] | [place], [place] [address] | unspecified whether | | | | [place], [place] | [phone] | neurogenic | | | | [address] | | claudication present | | | | [phone] | | (Primary Dx); S/P | | [...] + | [facility] | [address] | [place] | [phone] | | [facility] | | [address] | | | - LABORATORY | | [...] mL/min/1.73m2 | [facility] | | | FIJIAN | RATE,ESTIMATED | | MEDICAL | | | | mL/min/1.34v3Cdns than | | CENTER - | | [...] [address] | [place] | [phone] | | [facility] | | [address] | | | - LABORATORY | | [...] KALIE | | | | | | ([id number]) on 06/05/2017 | | | | | [...]
--- OUTSIDE RECORDS SUMMARY | ~2019-11-22 | XMS | Encounter Summary ---
Demographics + + + | Address | [address] | | | [place] [address] | + + + | Home Phone | | + + + | Preferred Language | Unknown | + + + | Marital Status | | + + + | Caodaism Affiliation | 1077 | + + + | Race | Unknown | + + + | Ethnic Group | Unknown | + + + Author + + + | Author | [facility] | | | and [place] | + + + | Organization | [facility] | | | and [...] Team Providers + +------+ + | Care Experience Design Director Name | Role | Phone | + +------+ + | Hay Greco MD | PCP | | + +------+ + Reason for Visit + + + | Reason | Comments | + + + | Follow-up | Discuss Surgery | + + + Encounter Details +--------+---------+ + + + | Date | Type | Department | Care Team | Description | +--------+---------+ + + + | 09/22/ | Office | [facility] | Kemal Damian MD | Spondylolisthesis of | | 2013 | Visit | NEUROSURGERY [address] | [address] | lumbar region | | | | [address] | [place] [address] | (Primary Dx); Lumbar | | | | [place], [place] | [phone] | radicular pain; | | | | [address] | | Facet arthropathy, | | | | [phone] | | lumbar; DDD | | | | | | (degenerative disc | | | | | | disease), lumbar; | | | | | | Spinal [...] + + + | Blood Pressure | 149/82 | 09/22/2013 8:32 AM | | | | | PDT | | + + + + + | Pulse | 72 | 09/22/2013 8:32 AM | | | | | PDT | | + + + + + | Temperature | - | - | | + + + + + | Respiratory Rate | 18 | 09/22/2013 8:32 AM | | | | | PDT | | + + + + + | Oxygen Saturation | - | - | | + + + + + | Inhaled Oxygen | - | - | | | Concentration | | | | + + + + + | Weight | 85.3 kg (188 lb) | 09/22/2013 8:32 AM | | | | | PDT | | + + + + + | Height | 175.3 cm (5' 9") | 09/22/2013 8:32 AM | | | | | PDT | | + + + + + | Body Mass Index | 27.76 | 09/22/2013 8:32 AM | | | | | PDT | | + + + + + documented in this encounter Plan of Treatment Not on filedocumented as of this encounter Visit Diagnoses + + | Diagnosis | + + | Spondylolisthesis of lumbar region - Primary Acquired spondylolisthesis | + + | Lumbar radicular pain Thoracic or lumbosacral neuritis or radiculitis, unspecified | + + | Facet arthropathy, lumbar Lumbosacral spondylosis without myelopathy | + + | DDD (degenerative disc disease), lumbar Degeneration of lumbar or lumbosacral | | intervertebral disc | + + | Spinal stenosis of lumbar region with neurogenic claudication Spinal stenosis, lumbar | | region, with neurogenic claudication | + + documented in this encounter
--- OUTSIDE RECORDS SUMMARY | ~2019-11-22 | XMS | Encounter Summary ---
Demographics + + + | Address | [address] | | | [place] [address] | + + + | Home Phone | | + + + | Preferred Language | Unknown | + + + | Marital Status | | + + + | Shinto Affiliation | 1077 | + + + [...] Team Providers + +------+ + | Care Pre Owned Sales Consultant Name | Role | Phone | [...] + + | 09/22/ | Office | [facility] | Kemal Damian MD | Spondylolisthesis of | | 2013 | Visit | NEUROSURGERY [address] | [address] | lumbar region | | | | [address] | [place] [address] | (Primary Dx); Lumbar | | | | [place], [place] | [phone] | radicular pain; | | | | [address] | | Facet arthropathy, | | | | [phone] | | lumbar; DDD | | | [...]
--- OUTSIDE RECORDS SUMMARY | ~2019-11-22 | XMS | Encounter Summary ---
Demographics + + + | Address | [address] | | | [place] [address] | + + + | Home Phone [...] + + + | Author | [facility] | + + + | Organization | [facility] | + + + | Address | Unknown | + + + | Phone | Unavailable | + + + Support + + + + + | Name | Relationship | Address | Phone | + + + + + | Ricarda Johnson | ECON | [address] | | | | | [place] | | | | | [address] | | + + + + + Care Team Providers + +------+ + | Care Processor Inspector Name | Role | Phone | [...] | [facility] | JUNI Pace [address] | | | | | [address] | [address] | | | | | Loop Physician's | [place], [place] | | | | | Brian, [facility] floor | [address] | | | | | [place], [place] | [phone] | | | | | [address] | | | | | | [phone] | | | +--------+ + + + [...]
--- OUTSIDE RECORDS SUMMARY | ~2019-11-22 | XMS | Encounter Summary ---
Demographics + + + | Address | [address] | | | [place] [address] | + + + | Home Phone [...] Team Providers + +------+ + | Care Wheel Press Clerk Name | Role | Phone | [...] Failed back | Oneil, | [address] | | | | | surgical | Pj Singer MD | [place], | | | | | syndrome | [address] | [place] | | | | | S/P lumbar | [place] | [address] | | | | | fusion | [place], [place] | Phone: | | | | | Procedures | [address] | [phone] | | | | | MRI Thoracic | Phone: | Fax: | | | | | Spine wo | [phone] | [phone] | | | | | Contrast | Fax: | | | | | | | [phone] | | +--------+--------+ + + + + Reason for Visit Diagnostic/Screening (Routine) +--------+--------+ + + + + | Status | Reason | Specialty | Diagnoses / | Referred By | Referred To | | | | | Procedures | Contact | Contact | +--------+--------+ + + + + | Closed | | Radiology | Diagnoses | | [facility] | | | | | Failed back | Oneil, | [address] | | | | | surgical | Pj Singer MD | [place], | | | | | syndrome | [address] | [place] | | | | | S/P lumbar | [place] | [address] | | | | | fusion | [place], [place] | Phone: | | | | | Procedures | [address] | [phone] | | | | | MRI Thoracic | Phone: | Fax: | | | | | Spine wo | [phone] | [phone] | | | | | Contrast | Fax: | | | | | | | [phone] | | +--------+--------+ + + + + Encounter Details +--------+ + + + + | Date | Type | Department | Care Team | Description | +--------+ + + + + | 05/04/ | Hospital | [facility] | Pj Riggs | Failed back surgical | | 2019 | Encounter | MED CTR MRI [address] | T[address] | syndrome; S/P | | | | [address] [place], | [place] [facility] | lumbar fusion | | | | [place] [address] | [address] | | | | | [phone] | | | +--------+ + + + [...] + +--------+ + + + | MRI THORACIC SPINE | Routin | 05/04/2019 | Failed back | Results for this | | WO CONTRAST | e | 12:18 PM | surgical syndrome | procedure are in the | | | | PDT | S/P lumbar fusion | results section. | + +--------+ + + + documented in this encounter Results MRI Thoracic Spine wo [...] STIR, axial T2. | | | FINDINGS: Proof Press Operator images of the cervical spine demonstrate mild [...] sagittal | | T1, sagittal STIR, axial T2.FINDINGS:Proof Press Operator images of the cervical spine demonstrate | [...] There is mild retrolisthesis of | | [id number] L1.Severe disc narrowing is at T12-L1 with [...] Diagnosis | + + | Failed back surgical syndrome Other unspecified back disorder | + + | S/P lumbar fusion Arthrodesis status | + + documented in this encounter"
--- OUTSIDE RECORDS SUMMARY | ~2019-11-22 | XMS | Encounter Summary ---
Demographics + + + | Address | [address] | | | [place] [address] | + + + | Home Phone [...] Team Providers + +------+ + | Care Study Manager Name | Role | Phone | [...] | Physical | Diagnoses | Yaya | [facility] | | | Services | Therapy | S/P lumbar | [facility] HOSPITAL | | | Required | | fusion | JUNI Iabrra | PHYSICAL | | | | | Lumbar | [address] | [address] | | | | | radicular | [address] | [place] | | | | | pain Back | [place], [place] | [place], [place] | | | | | pain, | [address] | [address] | | | | | unspecified | Phone: | Phone: | | | | | back | [phone] | [phone] | | | | | location, | Fax: | Fax: | | | | | unspecified | [phone] | [phone] | | | | | back pain | | | | | | | laterality, | | | | | | | unspecified | | | | | | | chronicity | | | | | | | Procedures | | | | | | | Waiting for | | | | | | | scheduling | | | | | | | at [facility] | | | | | | | [facility] | | | | | | | 12/20/17 | | | +--------+ + + + + + Reason for Visit +---------+ + | Reason | Comments | +---------+ + | Post Op | 6 MO P/O Lumbar | +---------+ + Encounter Details +--------+---------+ + + + | Date | Type | Department | Care Team | Description | +--------+---------+ + + + | 12/17/ | Office | [facility] | Kirk Javier | S/P lumbar fusion | | 2018 | Visit | NEUROSURGERY [address] | [address] | (Primary Dx); Lumbar | | | | [address] | [address] | radicular pain; | | | | [place] | [place] [address] | Back pain, | | | | [address] | [phone] | unspecified back | | | | [phone] | | location, | | | | | | unspecified back | | | | | | pain laterality, | | | | | | unspecified | | | | | | chronicity | +--------+---------+ + + + Social History [...] + + + | Blood Pressure | 126/76 | 12/17/2017 10:46 AM | | | | | PDT | | + + + + + | Pulse | 65 | 12/17/2017 10:46 AM | | | | | PDT | | + + + + + | Temperature | - | - | | + + + + + | Respiratory Rate | 18 | 12/17/2017 10:46 AM | | | | | PDT | | + + + + + | Oxygen Saturation | - | - | | + + + + + | Inhaled Oxygen | - | - | | | Concentration | | | | + + + + + | Weight | 84.1 kg (185 lb 6.5 | 12/17/2017 10:46 AM | | | | oz) | PDT | | + + + + + | Height | 175.3 cm (5' 9") | 12/17/2017 10:46 AM | | | | | PDT | | + + + + + | Body Mass Index | 27.38 | 12/17/2017 10:46 AM | | | | | PDT [...] of this encounter Patient Instructions Patient Instructions Clarissa Tabares, Manufacturing Assembler - 12/17/2017 10:30 AM PDTIt was a pleasure to see you today. Here is what we discussed. 1. Give this more time. Let your back get fused and healing to progress. 2. Get another MRI look at the levels below and re-invent the wheel and see how your doing 3. Diagnostic injections that you've previously had. 4.. Work hard to get a PCP established for further pain medication refills. We are only all owed to prescribe 90 days after your surgery date. 5. I will get you a prescription for today, but cannot prescribe anything further.Jewel lara signed by Clarissa Tabares, Manufacturing Assembler at 12/17/2017 11:33 AM PDT documented in this encounter Progress Notes Kirk Javier PA-C - 12/17/2017 10:30 AM PDTFormatting of this note might be differ ent from the original. Kirk Javier PA-C [address] [facility] [address] [place], [place] [id number] FAX: NEUROSURGERY FOLLOW-UP CHIEF COMPLAINT: Chief Complaint Patient presents with Post Op 6 MO P/O Lumbar HISTORY OF PRESENT ILLNESS: The patient is a 72 y.o. male that had a L1-2 LAIF w/ Lateral Plating for back and leg symptoms around 6 months. He returns and overall is doing well. Ke nt has been okay. He has been getting by, still has the pain that he is dealing with. Takes his Hydrocodone and Morphine a few times a week as needed for pain. He has jasvir walking quite a bit, walked about 7-8 miles a week ago in rough terrain, used a walking stick to help bal ance and get him around. When he starts out walking there Is an ache/burning sensation prese nt in the right posterior leg, but when he sits down to take a break the aching goes away.Th e burning right leg pain is radiating down the back of his leg. He is also fearful to lift a nything because of the back pain gets so bad afterwards. He would like him refill of his pain medicine. His primary care doctor is retired. He is working on establishing with a new primary care physician CURRENT MEDICATIONS: Current Outpatient Prescriptions Medication Sig Dispense Refill acetaminophen (TYLENOL) 325 mg tablet Take 650 mg by mouth 3 times daily. Prn pain amLODIPine (NORVASC) 5 mg tablet 0 hydroCHLOROthiazide 25 mg tablet Take 1 tablet by mouth Daily. 0 HYDROcodone-acetaminophen (NORCO) 7.5-325 mg per tablet Take 1-2 tablets by mouth every 4 hours as needed for Pain. (Patient taking differently: Take 1-2 tablets by mouth every 4 hours as needed for Pain (takes 5 tabs a week).) 120 tablet 0 potassium chloride (KLOR-CON) 10 [...] In addition, the patient has numbness/pain of legs, muscle aching, coordination d ifficulty, pain in back, headaches. PSYCHIATRIC: No depression, no sleep disorders, no anxiety, no bipolar disorder, no psycho tic episodes. CARDIOVASCULAR: No heart attacks, no heart murmur, no heart fluttering, no chest pain, no ankle swelling. LUNG DISEASE: No shortness of breath, no cough, no tuberculosis, no bloody cough, no asth ma, no emphysema/COPD. GASTROINTESTINAL: No bowel disease, no nausea or vomiting, no rectal bleeding, + constipat ion, + stool incontinence, no liver disease, no gallbladder disease, + abdominal pain, no ul cers. KIDNEY DISEASE: No urinary frequency, no painful [...] rheumatoid arthritis. INTERIM PHYSICAL EXAMINATION: Blood pressure 126/76, pulse 65, resp. rate 18, height 1.753 m (5' 9"), weight 84.1 kg (185 lb 6.5 oz). Body mass index is 27.38 kg/m. GENERAL: Cosmo Johnson is in no [...] expected at thi s time. ASSESSMENT: Encounter Diagnoses Name Primary? S/P lumbar fusion Yes Lumbar radicular pain Back pain, unspecified back location, unspecified back pain laterality, unspecified chr onicity Past Medical History: Diagnosis Date Acute ischemic [...] Some of the preoperative symptoms are improved. Smita sawant will discontinue the MS Contin altogether. He will continue to use hydrocodone 7. 11/14/24 as needed for pain. I will refill it this one time however future refills should be throug h his primary care provider I've encouraged him to call and begin working on this today. He states he has sent his medical records to [facility] and is working on getting establish ed with a new provider. He will call and check up on that today I increased the patient s activities now [...] advance with therapy as tolerated. The patient needs to follow-up in 3-4 months with x-rays for re-evaluation. We discussed p ossible L5-S1 epidural steroid injections bilaterally. We also discussed the possibility of repeating an MRI to look at his L4-5 and L5-S1 regions as he has significant disease. ELECTRONICALLY SIGNED BY: Kirk Javier PA-C, 12/17/2017 11:34 I, Kirk Javier PA-C, personally performed the services described in this documentation , as scribed by Clarissa Tabares MA in my presence, and it is both accurate and complete. Kirk Javier PA-C 12/17/2017 documented in this encounter Plan of Treatment + + +--------+ + + | Name | Type | Priori | Associated Diagnoses | Order Schedule | | | | ty | | | + + +--------+ + + | OUTPATIENT PT | Outpatient | Routin | S/P lumbar fusion | Ordered: 12/17/2017 | | EXTERNAL | Referral | e | Lumbar radicular | | | | | | pain Back pain, | | | | | | unspecified back | | | | | | location, | | | | | | unspecified back | | | | | | pain laterality, | | | | | | unspecified | | | | | | chronicity | | + + +--------+ + + documented as of this encounter Visit Diagnoses + + | Diagnosis | + + | S/P lumbar fusion - Primary Arthrodesis status | + + | Lumbar radicular pain Thoracic or lumbosacral neuritis or radiculitis, unspecified | + + | Back pain, unspecified back location, unspecified back pain laterality, unspecified | | chronicity | + + documented in this encounter
--- OUTSIDE RECORDS SUMMARY | ~2019-11-22 | XMS | Encounter Summary ---
Demographics + + + | Address | [address] | | | [place] [address] | + + + | Home Phone [...] + | Ricarda Johnson | ECON | [address] | | | | | [place] | | | | | [address] | | + + + + + Care Team Providers + +------+ + | Care Oil Tester Name | Role | Phone | [...] | [facility] | JUNI Pace [address] | | | | | [address] | [address] | | | | | Loop Physician's | [place], [place] | | | | | Brian, [facility] floor | [address] | | | | | [place], [place] | [phone] | | | | | [address] | | | | | | [phone] | | | +--------+ + + + [...]
--- OUTSIDE RECORDS SUMMARY | ~2019-11-22 | XMS | Encounter Summary ---
Demographics + + + | Address | [address] | | | [place] [address] | + + + | Home Phone [...] Providers + +------+ + | Care Supervisor [employer] Name | Role | Phone | + +------+ + | Aldo Frank DO | PCP | | + +------+ + Encounter Details +--------+ + + + + | Date | Type | Department | Care Team | Description | +--------+ + + + + | 06/09/ | [facility] | [facility] | Geraldo Bass | DDD (degenerative | | 2019 | Encounter | MED CTR XRAY [address] | J, [address] | disc disease), | | | | [place] | [address] [place] | lumbar; | | | | [place] [address] | [place] [address] | Spondylolisthesis of | | | | [phone] | [phone] | lumbar region; High | | | | | | cholesterol; 1st | | | [...] tablets by | 60 | 0 | 12/05/20 | | | HYDROcodone-acetamin | mouth every [...] XR CHEST PA AND | Routin | 06/09/2019 | DDD (degenerative | Results for this | | LATERAL | e | 1:14 PM | disc disease), | procedure are [...] encounter Results XR Chest PA and Lateral (06/09/2019 1:14 PM PST) + + | Specimen | + + | | + + + + + | Impressions | Performed At | + + + | Negative two-view chest radiograph. Dictated and Signed by: | [facility] | | Shayne Barreto MD Electronically signed: 06/09/2019 1:38 PM | | + + + + + + | Narrative | Performed At | + + + | EXAM: XR CHEST PA AND LATERAL dated 06/09/2019 1:14 PM HISTORY: | [facility] | | Pre-operative exam Comparison: None. TECHNIQUE: Frontal and | | | lateral views of the chest. FINDINGS: The lungs are symmetrically | | | aerated. Scarring in both lung bases. There are no pleural | | | effusions. There is no pneumothorax. The cardiac and mediastinal | | | contours are not enlarged. Arthroplasty changes in both shoulders. | | | Partially visualized hardware in the lumbar spine. | | + + + + + | Procedure Note | + + | Reji, Rad Results In - 06/09/2019 1:41 PM PST EXAM: XR CHEST PA AND LATERAL dated | | 06/09/2019 1:14 PMHISTORY: Pre-operative examComparison: None.TECHNIQUE: Frontal and | | lateral views of the chest.FINDINGS:The lungs are symmetrically aerated. Scarring in | | both lung bases. There are nopleural effusions. There is no pneumothorax. The cardiac | | and mediastinalcontours are not enlarged. Arthroplasty changes in both shoulders. | | Partiallyvisualized hardware in the lumbar spine.IMPRESSION: Negative two-view chest | | radiograph. Dictated and Signed by: Shayne Barreto MD Electronically signed: | | 06/09/2019 1:38 PM | |FINDINGS: | |The lungs are symmetrically aerated. Scarring in both lung bases. There are no | |pleural effusions. There is no pneumothorax. The cardiac and mediastinal | |contours are not enlarged. Arthroplasty changes in both shoulders. Partially | |visualized hardware in the lumbar spine. | | | |IMPRESSION: | | | |Negative two-view chest radiograph. | | | |Dictated and Signed by: Shayne Barreto MD | | Electronically signed: 06/09/2019 1:38 PM | + + + +---------+ + [...]
--- OUTSIDE RECORDS SUMMARY | ~2019-11-22 | XMS | Encounter Summary ---
Demographics + + + | Address | [address] | | | [place] [address] | + + + | Home Phone [...] Team Providers + +------+ + | Care Cigarette Packer Name | Role | Phone | [...] Failed back | Oneil, | [address] | | | | | surgical | Pj Singer MD | [place], | | | | | syndrome | [address] | [place] | | | | | S/P lumbar | [place] | [address] | | | | | fusion | [place], [place] | Phone: | | | | | Procedures | [address] | [phone] | | | | | MRI Thoracic | Phone: | Fax: | | | | | Spine wo | [phone] | [phone] | | | | | Contrast | Fax: | | | | | | | [phone] | | +--------+--------+ + + + + [...] Failed back | Oneil, | [address] | | | | | surgical | Pj Singer MD | [place], | | | | | syndrome | [address] | [place] | | | | | S/P lumbar | [place] | [address] | | | | | fusion | [place], [place] | Phone: | | | | | Procedures | [address] | [phone] | | | | | MRI Thoracic | Phone: | Fax: | | | | | Spine wo | [phone] | [phone] | | | | | Contrast | Fax: | | | | | | | [phone] | | +--------+--------+ + + + + Encounter Details +--------+ + + + + | Date | Type | Department | Care Team | Description | +--------+ + + + + | 05/04/ | Hospital | [facility] | Pj Riggs | Failed back surgical | | 2019 | Encounter | MED CTR MRI [address] | [address] | syndrome; S/P | | | | [address] [place], | [address] [place] [facility] | lumbar fusion | | | | [place] [address] | [address] | | | | | [phone] | | | +--------+ + + + [...] STIR, axial T2. | | | FINDINGS: Media Intern images of the cervical spine demonstrate mild [...] sagittal | | T1, sagittal STIR, axial T2.FINDINGS:Media Intern images of the cervical spine demonstrate | [...] There is mild retrolisthesis of | | [id number] L1.Severe disc narrowing is at T12-L1 with [...]
--- OUTSIDE RECORDS SUMMARY | ~2019-11-22 | XMS | Encounter Summary ---
Demographics + + + | Address | [address] | | | [place] [address] | + + + | Home Phone | | + + + | Preferred Language | Unknown | + + + | Marital Status | | + + + | Yazidi Affiliation | 1077 | + + + | Race | Unknown | + + + | Ethnic Group | Unknown | + + + Author + + + | Author | [facility] | | | and [place] | + + + | Organization | [facility] | [...] Team Providers + +------+ + | Care Seed Cleaner Name | Role | Phone | [...] | | [address] | [place] [address] | Instructions) | | | | [place] | [phone] | | | | | [address] | | | | | | [phone] | | | +--------+ + + + [...]
--- OUTSIDE RECORDS SUMMARY | ~2019-11-22 | XMS | Encounter Summary ---
Demographics + + + | Address | [address] | | | [place] [address] | + + + | Home Phone [...] Team Providers + +------+ + | Care Women'S Soccer Coach Name | Role | Phone | + +------+ + | Hay Greco MD | PCP | | + +------+ + Encounter Details +--------+ + + + + | Date | Type | Department | Care Team | Description | +--------+ + + + + | 02/06/ | Abstract | [facility] | Kirk Javier | | | 2017 | | NEUROSURGERY [address] | Fred, PA-C [address] | | | | | [address] | [address] | | | | | [place], [place] | [place] [address] | | | | | [address] | [phone] | | | | | [phone] | | | +--------+ + + + [...]
--- OUTSIDE RECORDS SUMMARY | ~2019-11-22 | XMS | Encounter Summary ---
Demographics + + + | Address | [address] | | | [place] [address] | + + + | Home Phone [...] Providers + +------+ + | Care Rn Intensive Care Unit Name | Role | Phone | + +------+ + | Aldo Frank DO | PCP | | + +------+ + Encounter Details +--------+ + + + + | Date | Type | Department | Care Team | Description | +--------+ + + + + | 06/09/ | Preadmit | [facility] | Geraldo Bass | DDD (degenerative | | 2019 | Visit | MED CTR PREADMIT | MD Farhat [address] | disc disease), | | | | CLINIC [address] | [address] [place] | lumbar; | | | | [place], [place] | [place] [address] | Spondylolisthesis of | | | | [address] | [phone] | lumbar region; High | | | | [phone] | | cholesterol; 1st | | | [...] | 1.30 | 0.70 - 1.30 | [facility] | | | | | mg/dL [...] mL/min/1.73m2 | [facility] | | | [facility] | RATE,ESTIMATED | | MEDICAL | | | | mL/min/1.77v8Yvja than | | CENTER - | | [...] [address] | [place] | [phone] | | [facility] | | [address] | | | - LABORATORY | | [...] | | | | | | [facility] | | | | | | MEDICAL [...] [address] | [place] | [phone] | | [facility] | | [address] | | | - LABORATORY | | [...] | | | | BALJINDER BLUE MD ([id number]) | | | | | | on [...]
--- OUTSIDE RECORDS SUMMARY | ~2019-11-22 | XMS | Encounter Summary ---
Demographics + + + | Address | [address] | | | [place] [address] | + + + | Home Phone | | + + + | Preferred Language | Unknown | + + + | Marital Status | | + + + | Baptism Affiliation | PRE | + + + [...] + | Ricarda Johnson | ECON | [address] | | | | | [place] | | | | | [address] | | + + + + + Care Team Providers + +------+ + | Care Wildlife Management Professor Name | Role | Phone | + +------+ + | Hay Greco MD | PCP | | + +------+ + Encounter Details +--------+ + + + + | Date | Type | Department | Care Team | Description | +--------+ + + + + | 07/25/ | Hospital | Cardiac | Sjh, Car Ecg Tech | | | 2010 | Encounter | Non-Invasive Testing | [address] | | | | | at [facility] | [facility] | | | | | [address] | [place] [address] | | | | | [address] | | | | | | [place], [address] [place] [address] | | | | | | [place], [place] | | | | | | [address] | | | | | | [phone] | | | +--------+ + + + [...] | | | | | LUIZA HYDE ([id number]) | | | | | | on 07/26/2010 12:12:45 PM | | | | + + + + + + + + | Specimen | + + | | + + + + + | Narrative | Performed At | + + + | Please click | [facility] | | on view image for the detailed interpretation from [employer] results. | CARDIOLOGY | + + + + + + + + | Performing | Address | City/State/Zipcode | Phone Number | | Organization | | | | + + + + + | [facility] | [address] | [place], [place] | | | CARDIOLOGY | [address] | [address] | | + + + + + documented in this encounter Visit Diagnoses Not on filedocumented in this encounter
--- OUTSIDE RECORDS SUMMARY | ~2019-11-22 | XMS | Encounter Summary ---
Demographics + + + | Address | [address] | | | [place] [address] | + + + | Home Phone [...] Team Providers + +------+ + | Care Tow Operator Name | Role | Phone | [...] | Changes | NEUROSURGERY [address] | Cap Machine Operator | | | | | [address] | | | | | | [place] | | | | | | [address] | | | | | | [phone] | | | +--------+ + + + [...]
--- OUTSIDE RECORDS SUMMARY | ~2019-11-22 | XMS | Encounter Summary ---
Demographics + + + | Address | [address] | | | [place] [address] | + + + | Home Phone [...] Team Providers + +------+ + | Care President Financial Institution Name | Role | Phone | + [...] | | | | back | | [address] Phone: | | | | | syndrome | | [phone] | | | | | Procedures | | Fax: | | | | | ID SURG | | [phone] | | | | | IMPLNT | [...] + + + + | 06/18/ | Hospital | [facility] | Geraldo Bass | S/P spinal fusion; | | 2019 | Encounter | MED CTR OR INTRA OP | MD Farhat [address] | Lumbar | | | | [address] | [address] | radiculopathy; | | | | [place] | [place] [address] | Failed back syndrome | | | | [address] | [phone] | | | | | [phone] | | | +--------+ + + + [...] You can't be awakened Date Last Reviewed: 05/01/201619992929-9362 [employer]. [address] [place] [address]. All righ ts reserved. This information is [...] | | [place] | | | n [place] | | | Frame | +---+--------+ | [...] | [address] | [place] | [phone] | | [facility] | | [address] | | | - LABORATORY | | | | + + + + + documented in this encounter Visit Diagnoses + + | Diagnosis | + + | S/P spinal fusion Arthrodesis status | + + | Lumbar radiculopathy Thoracic or lumbosacral neuritis or radiculitis, unspecified | + + | Failed back syndrome Other unspecified back disorder | + + | Failed back surgical syndrome Other unspecified back disorder | + + | S/P lumbar fusion Arthrodesis status | + + | S/P cervical spinal fusion Arthrodesis status | + + | Chronic renal insufficiency, [...] ONCE PRN, | | | Wheezing, Starting [facility] 06/18/19 at | | | 0623, For 1 dose, Pre-op | | + +---+ | | | + +---+ | albuterol-ipratropium 2.5-0.5 | | | mg/3 mL nebulizer solution 3 mL | | | 3 mL, Nebulization, ONCE PRN, | | | Wheezing, Shortness of Breath, | | | Starting [facility] 06/18/19 at 0926, For | | [...] glucose < 50, | | | Starting [facility] 06/18/19 at 0623, | | | Repeat [...] < 50, Starting [facility] | | | 06/18/19 at 0926, Give over 2 min. | [...] | | | | | | longer, qirqji-ezj-jjmsb use of | | | | | [...] | | | For HR <50, Starting [facility] 06/18/19 | | | at 0926, [...] DBP > 100, | | | Starting [facility] 06/18/19 at 0926, | | | Hold if HR > 100. Maximum total | | | dose 40 mg. Use labetalol first | | | if available., Recovery/Phase I | | + +---+ | | | + +---+ | HYDROmorphone (DILAUDID) | | | injection 0.2-0.4 mg 0.2-0.4 mg, | | | Intravenous, EVERY 5 MIN PRN, | | | Pain, Starting [facility] 06/18/19 at | | | 0926, [...] One week or longer, | | | zrknvf-dpl-lrkdn use of at least | | | [...] | mL/hr | | | CONTINUOUS, Starting [facility] 06/18/19 | | AM PST | | | | | at 0645, Pre-op | | | | | | + +---------+ +--------+-------+---+ + +---+ | | | + +---+ | lactated ringers (LR) infusion | | | at 10-100 mL/hr, Intravenous, | | | CONTINUOUS, Starting [facility] 06/18/19 | | | at 0645, TKO. [...] | Intravenous, CONTINUOUS, Starting | | | [facility] 06/18/19 at 0645, TKO. Use | | | this instead of LR if patient is | | | on dialysis., Pre-op | | + +---+ | | | + +---+ documented in this encounter
--- OUTSIDE RECORDS SUMMARY | ~2019-11-22 | XMS | Encounter Summary ---
Demographics + + + | Address | [address] | | | [place] [address] | + + + | Home Phone | | + + + | Preferred Language | Unknown | + + + | Marital Status | | + + + | Tenriism Affiliation | 1077 | + + + [...] Team Providers + +------+ + | Care B Operator Name | Role | Phone | + +------+ + | Aldo Frank DO | PCP | | + +------+ + Encounter Details +--------+ + + + + | Date | Type | Department | Care Team | Description | +--------+ + + + + | 06/09/ | Orders Only | [facility] | Barbara Marie, | | | 2018 | | [facility] | MD [address] | | | | | [address] | [place] [address] | | | | | [place], [place] | [phone] | | | | | [address] | | | | | | [phone] | | | +--------+ + + + [...] SHOULDER LEFT 2 + | Routin | 06/09/2018 | | Results for this | | VW | e | 2:12 PM | | procedure are in the | | | | PST | | results section. | + +--------+ + + + documented in this encounter Results XR Shoulder Left 2 + Vw (06/09/2018 2:12 PM PST) + + | Specimen | + + | | + + + + + | Narrative | Performed At | + + + | History: This is a 73 y.o. year old male. Diagnosis for Order | | | ICD-10-CM 1. Primary osteoarthritis of right shoulder M19.011 X-ray | | | shoulder left complete 2+v . Findings: 3 views left shoulder. | | | AP, Grashey, scapular Y. Comparison views: 03/07/2017. The patient is | | | status post left reverse total shoulder arthroplasty. The prosthesis | | | is in good position, without evidence of failure or loosening. There | | | is no evidence of fracture or dislocation. Bony mineralization is | | | normal. Visualized lung gill are clear.. Impression: Status post | | | left reverse total shoulder arthroplasty, with good radiographic | | | outcome.. BARBARA MARIE MD 06/11/2018 BARBARA MARIE, | | | has created this entry using [employer] Voice Recognition | | | software and [employer] macros. The entry has been reviewed and there | | | may still exist sound alike word errors. | | + + + + + | Procedure Note | + + | Reji, Rad Conversion - 03/05/2019 3:46 PM PDT History: This is a 73 y.o. year old | | male. Diagnosis for Order ICD-10-CM1. Primary osteoarthritis of right shoulder M19.011 | | X-ray shoulder leftcomplete 2+v. Findings: 3 views left shoulder. AP, Grashey, scapular | | Y. Comparisonviews: 03/07/2017. The patient is status post left reverse total | | shoulderarthroplasty. The prosthesis is in good position, without evidence offailure or | | loosening. There is no evidence of fracture or dislocation.Bony mineralization is | | normal. Visualized lung gill are clear.. Impression: Status post left reverse total | | shoulder arthroplasty, withgood radiographic outcome.. BARBARA MARIE MD06/11/2018 | | BARBARA MARIE MD has created this entry using [employer] | | software and [employer] macros. The entry has been reviewed andthere may still exist | | sound alike word errors. | | | |Impression: Status post left reverse total shoulder arthroplasty, with | |good radiographic outcome.. | | | | | |BARBARA MARIE MD | |06/11/2018 | | | |BARBARA MARIE MD has created this entry using [employer] Voice | |Recognition software and [employer] macros. The entry has been reviewed and | |there may still exist sound alike word errors. | | | + + documented in this encounter Visit Diagnoses Not on filedocumented in this encounter"
--- OUTSIDE RECORDS SUMMARY | ~2019-11-22 | XMS | Encounter Summary ---
Demographics + + + | Address | [address] | | | [place] [address] | + + + | Home Phone | | + + + | Preferred Language | Unknown | + + + | Marital Status | | + + + | Restorationism Affiliation | 1077 | + + + [...] Team Providers + +------+ + | Care Latrine Cleaner Name | Role | Phone | + +------+ + | Hay Greco MD | PCP | | + +------+ + Encounter Details +--------+ + + + + | Date | Type | Department | Care Team | Description | +--------+ + + + + | 10/24/ | Hospital | [facility] | Emily Carter | | | 2013 | Encounter | MED CTR ACUTE | D, PT [address] | | | | | PHYSICAL THERAPY | [place] | | | | | [address] [place] | [address] | | | | | [place] [address] | | | | | | [phone] | | | +--------+ + + + [...]
--- OUTSIDE RECORDS SUMMARY | ~2019-11-22 | XMS | Encounter Summary ---
Demographics + + + | Address | [address] | | | [place] [address] | + + + | Home Phone [...] Team Providers + +------+ + | Care Microelectronics Assembler Name | Role | Phone | [...] | | | | [address] | [place] [address] | | | | | [place], [place] | [phone] | | | | | [address] | | | | | | [phone] | | | +--------+ + + + [...] MARIE MD has created this entry using [employer] | | | Voice Recognition software and [employer] macros. The entry has been | | [...] MARIE MD has created this entry using [employer] Studio[employer]ognition | | software and [employer] macros. The entry has been reviewed andthere may still exist | | sound alike word errors. | | | |Impression: Status post right reversed total shoulder arthroplasty, with | |good radiographic outcome.. | | | | | |BARBARA MARIE MD | |11/13/2017 | | | |BARBARA MARIE MD has created this entry using [employer] | |Recognition software and [employer]. The entry has been reviewed and | |there may still exist sound alike word errors. | | | + + documented in this encounter Visit Diagnoses Not on filedocumented in this encounter"
--- OUTSIDE RECORDS SUMMARY | ~2019-11-22 | XMS | Encounter Summary ---
Demographics + + + | Address | [address] | | | [place] [address] | + + + | Home Phone | | + + + | Preferred Language | Unknown | + + + | Marital Status | | + + + | Yarsani Affiliation | PRE | + + + | Race | White | + + + | Ethnic Group | Not or | + + + Author + + + | Author | [facility] | + + + | Organization | [facility] | + + + | Address | Unknown | + + + | Phone | Unavailable | + + + Support + + + + + | Name | Relationship | Address | Phone | + + + + + | Ricarda Olivera | ECON | [address] | | | | | [place] | | | | | [address] | | + + + + + Care Team Providers + +------+ + | Care Supervisor Forming Department Name | Role | Phone | + [...] + + + + | 10/30/ | Hospital | [facility] [address] | [place], | | | 2011 - | Encounter | [address] | [address] | | | | | [id number] [facility] | [address] | | | 11/02/ | | [facility], | [place], [place] | | | 2011 | | [place] [address] | [address] | | | | | [phone] | [phone] | | | | | | | [...] MD PCP: Marly Greco MD Service: [facility] colorectal Diagnoses Principal Final Diagnosis: 1. Rectal [...] Take 1 Cap by mouth once daily. Ira-3 Fatty Acids-Vitamin E (FISH OIL) 1,000 mg [...] Cain MD MICHELLE C ELLIS, MD [facility] Department of Surgery Resident documented in this [...] + + + +---------+ + + | Ira-3 Fatty | Take by mouth. | | [...] home today or tomorrow. Pt lives in [facility]. Will follow. Electronically signed by:Gali Waggoner Position:Chainstitch Pants Outseamer Pager ID:NOT specif Renata Galindo ACNP - [...] with Dr. Cornejo and [facility] N[facility]URGESS, [facility] [address] 14a/uhs8w [facility] [address] This assessment and plan was formulated both [...] services include the following: Notes: Has used [facility] in the past for IV abx LIVING [...] no needs identified Electronically signed by:Macie Wahl Position:Chainstitch Pants Outseamer Pager ID:[id number] Electronically signed on:2011-11-01 0704Electronically signed by Belén [...] | + +--------+ + + + | HI CLOSE | Routin | 08/19/2015 | | [...] CLOSURE/TAKEDOWN | ve | 9:25 AM | ([facility]) | | | | Surgic | [...] + + documented in this encounter Results HI CLOSE ENTEROSTOMY,RESEC+ANAST (08/19/2015 2:52 AM PST)PROCEDURE NOTE [...] | | | | Signed by: Terrence | | | | | | KO Hayes | | | | | | | [...] + | [facility] | [address] | [place], [place] | | | THERAPY | [address] | [address] | | + + + + + [...] | + + + + + | [facility] | [address] | [place] [address] | | | PATHOLOGY | [address] | | | + + + [...] Castro, | | | | | | PATIENT ACCESS SPECIALIST | | | | | | | | | | | | | | | | | | | | | | | | | | | | | |Electronically Signed by: RACHELL LaurentP | | | | + + + + +------ --------+ + + | Specimen | + + | | + + + + + + + | Performing | Address | City/State/Zipcode | Phone Number | | Organization | | | | + + + + + | [facility] | [address] | [place], [place] | | | THERAPY | [address] | [address] | | + + + + + [...] + + + + | [facility] | [address] | [place] [address] | | | PATHOLOGY | [address] [...] | [facility] | [address] | [place] [address] | | | PATHOLOGY | [address] [...] + + + + + | [facility] DEPARTMENT | [address] | [place] [address] | | | PATHOLOGY | [address] | | | + + + + + RESP CARE THERAPY (11/01/2011 4:42 AM PDT) + + + + + ----+ | Component | Value | Ref Range | Performed | Pathologi st | | | | | At | Signature | + + + + + ----+ | RESPIRATORY | Oxygen device on | | [place] | | | CARE | standby, nasal [...] + | [facility] | [address] | [place], [place] | | | THERAPY | [address] | [address] | | + + + + + [...] | + + + + + | [facility] | [address] | [place] [address] | | | PATHOLOGY | [address] | | | + + + + + LAB REPORTS (10/31/2011 12:00 AM PDT) + + + | Narrative | Performed At | + + + | | | + + + + + | Transcriptions | + + | [facility] - 11/07/2011 11:22 AM PDT | + + LAB REPORTS (10/31/2011 12:00 AM PDT) + + + | Narrative | Performed At | + + + | | | + + + + + | Transcriptions | + + | [facility] - 11/07/2011 8:25 AM PDT | [...] Ronn/Student | | | | | | FellowTerry Yg Duff, | | | | | | M.D., | | | | | | Ph.D./PathologistT:10/31/ | | | | | | / Clinical | | | | | | [...] folds. | | | | | | Grain Combine Driver | | | | | | sections are submitted. | | | | | | Cassette Index:A1, | | | | | | stoma lesionA2, | | | | | | equal opportunity representative | | | | | | [...] | + + + + + | [facility] | [address] | [place] [address] | | | PATHOLOGY | [address] [...] | | + +--------+ +--------+------+------+ | acetaminophen (aka TYLENOL) | Given | 11/02/19 | 650 mg | | | | tablet 325-650 mg 325-650 mg, | | 12 2:34 | | | | | oral, EVERY 4 HOURS NEEDED, | | PM PDT | | | | | Starting 10/31/11 at 1623, | | | | | | | Until 11/03/11 at 1805, mild | | | | | | | pain | | | | | | + +--------+ +--------+------+------+ +---+---+ | | | +---+---+ + +-------+ +-------+---+---+ | alvimopan (aka ENTEREG) capsule | Given | 10/31/19 | 12 mg | | | | 12 mg 12 mg, oral, PREPROCEDURE | | 12 6:50 | | | | | ONCE, 1 dose, Starting Wed | | AM PDT | | | | | 10/31/11 at 0645, Until Wed | | | | | | | 10/31/11 at 1642 | | | | | | + +-------+ +-------+---+---+ +---+---+ | | | +---+---+ + +-------+ +-------+---+---+ | alvimopan (aka ENTEREG) capsule | Given | 11/01/19 | 12 mg | | | | 12 mg 12 mg, oral, TWICE DAILY, | | 12 10:06 | | | | | 14 doses, First dose on Josefa | | PM PDT | | | | | 11/01/11 at 0900, Last dose on Sat | | | | | | | 11/07/11 at 2100 | | | | | | + +-------+ +-------+---+---+ +-------+ +-------+---+---+ | Given | 11/01/19 | 12 mg | | | | | 12 8:44 | | | | | | AM PDT | | | | +-------+ +-------+---+---+ +---+---+ | | | +---+---+ + +---------+ +-------+-------+---+ | dextrose 5%-NaCl 0.45%-KCl 20 | New Bag | 10/31/19 | 100 | 100 | | | mEq/L IV infusion 100 mL/hr, | | 12 9:14 | mL/hr | mL/hr | | | intravenous, CONTINUOUS, Starting | | PM PDT | | | | | 10/31/11 at 1000, Until Josefa | | | | | | | 11/01/11 at 0705 | | | | | | + +---------+ +-------+-------+---+ +---------+ +-------+-------+---+ | New Bag | 10/31/19 | 100 | 100 | | | | 12 10:00 | mL/hr | mL/hr | | | | AM PDT | | | | +---------+ +-------+-------+---+ +---+---+ | | | +---+---+ + +---------+ + + +---+ | dextrose 5%-NaCl 0.45%-KCl 20 | New Bag | 11/01/19 | 50 mL/hr | 50 mL/hr | | | mEq/L IV infusion 50 mL/hr, | | 12 8:44 | | | | | intravenous, CONTINUOUS, Starting | | AM PDT | | | | | Josefa 11/01/11 at 0715, Until Sat | | | | | | | 11/03/11 at 0715 | | | | | | + +---------+ + + +---+ +---+---+ | | | +---+---+ + +-------+ +--------+---+---+ | dicloxacillin (aka DYNAPEN) | Given | 11/03/19 | 500 mg | | | | capsule 500 mg 500 mg, oral, | | 12 9:58 | | | | | FOUR TIMES DAILY, First dose on | | AM PDT | | | | | 10/31/11 at 2200, Until | | | | | | | Discontinued | | | | | | + +-------+ +--------+---+---+ +-------+ +--------+---+---+ | Given | 11/02/19 | 500 mg | | | | | 12 6:18 | | | | | | PM PDT | | | | +-------+ +--------+---+---+ | Given | 11/02/19 | 500 mg | | | | | 12 2:34 | | | | | | PM PDT | | | | +-------+ +--------+---+---+ +---+---+ | | | +---+---+ + +-------+ +-------+---+---+ | enoxaparin (aka LOVENOX) | Given | 11/01/19 | 40 mg | | | | injection 40 mg 40 mg, | | 12 8:44 | | | | | subcutaneous, EVERY NOON, First | | AM PDT | | | | | dose on Josfea 11/01/11 at 0800, | | | | | | | Until Discontinued | | | | | | + +-------+ +-------+---+---+ +---+---+ | | | +---+---+ + +-------+ +-----+---+---+ | ertapenem (aka INVANZ) | Given | 10/31/19 | 1 g | | | | injection 1 dose, Starting Wed | | 12 6:57 | | | | | 10/31/11 at 0645, Until Wed | | AM PDT | | | | | 10/31/11 at 0657 | | | | | | + +-------+ +-----+---+---+ +---+---+ | | | +---+---+ + +-------+ +-----+---+---+ | ertapenem (aka INVANZ) | Given | 10/31/19 | 1 g | | | | injection 1 dose, Starting Wed | | 12 6:58 | | | | | 10/31/11 at 0652, Until Wed | | AM PDT | | | | | 10/31/11 at 0658 | | | | | | + +-------+ +-----+---+---+ +---+---+ | | | +---+---+ + +---------+ +-----+--------+---+ | ertapenem (aka INVANZ) IV | New Bag | 10/31/19 | 1 g | mL/hr | | | (minibag+) 1 g 1 g, intravenous, | | 12 6:58 | | | | | PREPROCEDURE ONCE, 1 dose, | | AM PDT | | | | | Starting 10/31/11 at 0645, | | | | | | | Until Sat10/31/11 at 0658 | | | | | | + +---------+ +-----+--------+---+ +---+---+ | | | +---+---+ + +-------+ +-------+---+---+ | famotidine (aka PEPCID) tablet | Given | 11/03/19 | 20 mg | | | | 20 mg 20 mg, oral, TWICE DAILY, | | 12 9:58 | | | | | First dose on Sat11/02/11 at | | AM PDT | | | | | 0900, Until Discontinued | | | | | | + +-------+ +-------+---+---+ +-------+ +-------+---+---+ | Given | 11/02/19 | 20 mg | | | | | 12 9:26 | | | | | | PM PDT | | | | +-------+ +-------+---+---+ | Given | 11/02/19 | 20 mg | | | | | 12 8:53 | | | | | | AM PDT | | | | +-------+ +-------+---+---+ +---+---+ | | | +---+---+ + + + +----+--------+---+ | HYDROmorphone 25 mg in | Rate/Dos | 11/01/19 | mg | mL/hr | | | preservative free NaCl 0.9% 50 mL | e Verify | 12 10:06 | | | | | DATABASE MARKETING SPECIALIST infusion intravenous, | | PM PDT | | | | | CONTINUOUS, Starting 10/31/11 | | | | | | | at 1000, Until 11/02/11 at | | | | | | | 0529 | | | | | | + + + +----+--------+---+ + + +--------+--------+---+ | Rate/Dose Verify | 10/31/19 | mg | mL/hr | | | | 12 10:04 | | | | | | PM PDT | | | | + + +--------+--------+---+ | New Bag | 10/31/19 | 0.2 mg | mL/hr | | | | 12 10:07 | | | | | | AM PDT | | | | + + +--------+--------+---+ + +---+ | | | + +---+ | HYDROmorphone DATABASE MARKETING SPECIALIST infusion 1 | | | dose, Starting Sat10/31/11 at | | | 0951, Until Sat10/31/11 at 1007 | | + +---+ | | | + +---+ + +---------+ + + +---+ | lactated ringers IV 10 mL/hr, | New Bag | 10/31/19 | 10 mL/hr | 10 mL/hr | | | intravenous, PROCEDURE | | 12 6:42 | | | | | CONTINUOUS, Starting Sat10/31/11 | | AM PDT | | | | | at 0645, Until Sat10/31/11 at | | | | | | | 1605 | | | | | | + +---------+ + + +---+ +---+---+ | | | +---+---+ + +---------+ +-----+--------+---+ | magnesium sulfate IV 2 g 2 g, | New Bag | 11/01/19 | 2 g | mL/hr | | | intravenous, ONCE, 1 dose, Josefa | | 12 8:44 | | | | | 11/01/11 at 0930 | | AM PDT | | | | + +---------+ +-----+--------+---+ +---+---+ | | | +---+---+ + +-------+ +---+---+---+ | nystatin (aka MYCOSTATIN) | Given | 11/02/19 | | | | | ointment topical, TWICE DAILY, | | 12 9:00 | | | | | First dose on Sat10/31/11 at | | PM PDT | | | | | 2100, Until Discontinued | | | | | | + +-------+ +---+---+---+ +-------+ +---+---+---+ | Given | 04/20/20 | | | | | | 12 8:54 | | | | | | AM PDT | | | | +-------+ +---+---+---+ | Given | 11/01/19 | | | | | | 12 10:06 | | | | | | PM PDT | | | | +-------+ +---+---+---+ +---+---+ | | | +---+---+ + +---------+ +------+--------+---+ | ondansetron (aka ZOFRAN) | New Bag | 11/02/19 | 4 mg | mL/hr | | | injection 4 mg 4 mg, | | 12 2:33 | | | | | intravenous, EVERY 12 HOURS, 4 | | PM PDT | | | | | doses, First dose on Sat10/31/11 | | | | | | | at 1630, Last dose on Sat11/02/11 | | | | | | | at 0430 | | | | | | + +---------+ +------+--------+---+ +---------+ +------+--------+---+ | New Bag | 11/02/19 | 4 mg | mL/hr | | | | 12 5:48 | | | | | | AM PDT | | | | +---------+ +------+--------+---+ | New Bag | 11/01/19 | 4 mg | mL/hr | | | | 12 4:48 | | | | | | PM PDT | | | | +---------+ +------+--------+---+ +---+---+ | | | +---+---+ documented in this encounter
--- OUTSIDE RECORDS SUMMARY | ~2019-11-22 | XMS | Encounter Summary ---
Demographics + + + | Address | [address] | | | [place] [address] | + + + | Home Phone | | + + + | Preferred Language | Unknown | + + + | Marital Status | | + + + | [employer] Affiliation | 1077 | + + + [...] Team Providers + +------+ + | Care Transmitter Tester Name | Role | Phone | + +------+ + | Hay Greco MD | PCP | | + +------+ + Encounter Details +--------+ + + + + | Date | Type | Department | Care Team | Description | +--------+ + + + + | 05/13/ | Orders Only | [facility] | Kemal Damian MD | Back pain (Primary | | 2013 | | NEUROSURGERY [address] | [address] | Dx) | | | | [address] | [place] [address] | | | | | [place] | [phone] | | | | | [address] | | | | | | [phone] | | | +--------+ + + + [...] Performed At | + + + | [facility] | [place] | | Department [address] [facility] [place] | [facility] | | [ rep [phone]] [ rep [facility] | | st zip] Signed | - IMAGING | | | | | Patient Name: TYLOR OLIVERA | | | Physician: JEFF : 1945 Age: 68 Sex: M Unit | | | #: [id number] Exam Date: 06/09/13 Location: | | | [facility] Report #: [id number] Page: | | | %(RAD)RES..mtdd.print.filter("pg") of %(RAD) | | | RES..mtdd.print.filter("tpg") | | | | | | Accession Number: [id number] | | | LUMBAR SPINE LIMITED, 06/09/2013 CLINICAL HISTORY: | | | BACK PAIN. COMPARISON: [facility] | | | Imaging one view [...] Transcribed Date/Time: 06/09/2013 14:32 | | | Director Broadcast: <<Signature on File>> | | | | | | Shayne Barreto MD06/09/13 4219 <Electronically signed by Shayne Singer | | | Mary Lou GUNN> Shayne Barreto MD 06/09/13 1344 | | | Director Broadcast: Mbaobao Aysygytuwwzdd50/26/13 1432 | | | Kemal Damian MD | | + + + + + + + + | Performing | Address | City/State/Zipcode | Phone Number | | Organization | | | | + + + + + | [facility] [address] | [address] | [place] | [phone] | | [facility] | | [address] | | | - IMAGING | | | | + + + + + documented in this encounter Visit Diagnoses + + | Diagnosis | + + | Back pain - Primary Backache, unspecified | + + documented in this encounter
--- OUTSIDE RECORDS SUMMARY | ~2019-11-22 | XMS | Encounter Summary ---
Demographics + + + | Address | [address] | | | [place] [address] | + + + | Home Phone [...] + + | Author | [facility] | | | and [place] | + + + | Organization | [facility] | | | [...] Team Providers + +------+ + | Care Archaeologist Name | Role | Phone | + [...] | Physical | Diagnoses | Yaya, | | | | Services | Therapy | | Kirk | | | | Required | | Spondylolist | JUNI Ibarra | | | | | | hesis of | [address] | | | | | | lumbar | [address] | | | | | | region | [place] | | | | | | Spinal | [address] | | | | | | stenosis of | Phone: | | | | | | lumbar | [phone] | | | | | | region with | Fax: | | | | | | neurogenic | [phone] | | | | | | claudication | | | | | | | Facet | | | | | | | arthropathy, | | | | | | | lumbar DDD | | | | | | | | | | | | | | (degenerativ | | | | | | | e disc | | | | | | | disease), | | | | | | | lumbar S/P | | | | | | | lumbar | | | | | | | fusion | | | +--------+ + + + + + Reason for Visit + + + | Reason | Comments | + + + | Follow-up | 4 week PO | + + + Encounter Details +--------+---------+ + + + | Date | Type | Department | Care Team | Description | +--------+---------+ + + + | 11/18/ | Office | [facility] | Kirk Javire | Spondylolisthesis of | | 2013 | Visit | NEUROSURGERY [address] | [address] | lumbar region | | | | [address] | [address] | (Primary Dx); Spinal | | | | [place], [place] | [place] [address] | stenosis of lumbar | | | | [address] | [phone] | region with | | | | [phone] | | neurogenic | | | | | | claudication; Facet | | | | | | arthropathy, lumbar; | | | | | | DDD (degenerative | | | | | | disc disease), | | | | | | lumbar; S/P lumbar | | | | | | fusion | +--------+---------+ + + [...] + + + | Blood Pressure | 134/80 | 11/18/2013 10:56 AM | | | | | PDT | | + + + + + | Pulse | 78 | 11/18/2013 10:56 AM | | | | | PDT | | + + + + + | Temperature | - | - | | + + + + + | Respiratory Rate | 16 | 11/18/2013 10:56 AM | | | | | PDT | | + + + + + | Oxygen Saturation | - | - | | + + + + + | Inhaled Oxygen | - | - | | | Concentration | | | | + + + + + | Weight | 85.3 kg (188 lb) | 11/18/2013 10:56 AM | | | | | PDT | | + + + + + | Height | 175.3 cm (5' 9") | 11/18/2013 10:56 AM | | | | | PDT | | + + + + + | Body Mass Index | 27.76 | 11/18/2013 10:56 AM | | | | | PDT [...] Instructions Patient Instructions Kirk Javier PA - 11/18/2013 11:14 AM PDTToday we talked abou t gradually increasing your activities. You can increase your weight restriction to 15 poun ds at this time and gradually increase that over the next several weeks to 25 pounds. In ap proximately 2 weeks I would like you to start weaning your brace. In 4 weeks I would like you to start with physical therapy In approximately 2 months we will see you back in the office with x-rays of your back SPINE BRACE WEANING PROTOCOL (5 WEEKS) Below are instructions for weaning your brace. You can move through the weeks slower if yo u feel the need to do so, but the overall goal is to get you out of the brace slowly over e next several weeks. WEEK 1 If [...] your back and use good technique when order picker/assembler things and bending. Electronica lly signed by TRENT Mai at 11/18/2013 11:15 AM PDT documented in this encounter Progress Notes Kirk Javier PA - 11/18/2013 11:17 AM PDTFormatting of this note might be differen t from the original. TRENT Vicente [address] [facility], [address] [place], [place] [address] FAX: NEUROSURGERY SURGICAL FOLLOW-UP CHIEF COMPLAINT: Chief Complaint Patient presents with Follow-up 4 week PO HISTORY OF PRESENT ILLNESS: The patient is a 68 y.o. male that had a lumbar fusion by Dr. sotomayor for spondylolisthesis and neurogenic claudication around 4 weeks ago. He returns and ink omalley is doing well. The patient complains of some mild weakness of his left leg and some o ngoing problems with back pain and right knee pain. He states though that his symptoms are significantly better than prior to surgery. His leg pain is pretty much gone his weakness h as improved although now that he is walking more his knee pain is what is bothering him The patient has been walking as much as possible. The patient has had no issues with his surgica l site. CURRENT MEDICATIONS: Current Outpatient Prescriptions Medication Sig Dispense Refill acetaminophen (TYLENOL) 325 mg tablet Take 325 mg by mouth Daily. Prn pain Iksdaqhzi-Hzfkhkoxkjf-Vcv D (GLUCOSAMINE COMPLEX PO) Take 2 tablets [...] he does not use ill icit drugs. INTERIM PHYSICAL EXAMINATION: Blood pressure 134/80, pulse 78, resp. rate 16, height 1.753 m (5' 9"), weight 85.276 kg (1 88 lb). Body mass index is 27.75 kg/(m^2). GENERAL: Cosmo Johnson is in no acute distress with unlabored respirations. SPINE: The patient s incisions are healing well without drainage, significant erythema, o r discharge EXTREMITIES: No lower extremity edema. NEUROLOGICAL EXAMINATION: MENTAL STATUS: The patient is awake, alert, and oriented. He follows simple and complex commands MOTOR EXAM: Motor strength is improving SENSORY EXAM: The sensory examination improved RADIOGRAPHIC REVIEW: The patient s postoperative x-rays show stable instrumentation and alignment and were rev iewed with the patient today. There have been no interval changes since the immediate posto perative films. Complete fusion has not yet occurred, but this is normal and would not be e xpected at this time. ASSESSMENT: S/P lumbar fusion for: Encounter Diagnoses Name Primary? Spondylolisthesis of lumbar region Yes Spinal stenosis of lumbar region with neurogenic claudication Facet arthropathy, lumbar DDD (degenerative disc disease), lumbar S/P lumbar fusion Past Medical History Diagnosis Date High cholesterol Rectal cancer (HCC) PLAN: Overall, the patient is doing well. I increased the patient s activities slowly now allowing 15 pound lifting and also will b egin the process of brace weaning. I would like the patient to advance slowly with this pro cess and discussed this at length during today's visit. I would also like the patient to co ntinue with postoperative rehabilitation and to advance with therapy as tolerated. I am hoping to see improvement over the coming weeks to months and plan to continue to foll ow this patient. I spent 20 minutes in visit with Cosmo Johnson today with the majority of time spent counselling the patient on his recovery and coordinating his future care. The patient will follow-up with me in around 8 weeks for re-evaluation. ELECTRONICALLY SIGNED BY: TRENT Vicente, 11/18/2013 11:17 documented in th is encounter Plan of Treatment + + +--------+ + + | Name | Type | Priori | Associated Diagnoses | Order Schedule | | | | ty | | | + + +--------+ + + | OUTPATIENT PT | Outpatient | Routin | Spondylolisthesis | Ordered: 11/18/2013 | | EXTERNAL | Referral | e | of lumbar region | | | | | | Spinal [...] | | | fusion | | + + +--------+ + + documented as of this encounter Results XR Lumbar [...] + | Reji, Rad Results In - 01/18/2014 4:04 PM PDT [...] + | MISCELLANEOUS LAB | | | [phone] | + +---------+ + + | MISCELANIOUS LAB | | | [phone] | + +---------+ + + documented in this encounter Visit Diagnoses + + | Diagnosis | + + | Spondylolisthesis of lumbar region - Primary Acquired spondylolisthesis | + + | Spinal [...]
--- OUTSIDE RECORDS SUMMARY | ~2019-11-22 | XMS | Encounter Summary ---
Demographics + + + | Address | [address] | | | [place] [address] | + + + | Home Phone | | + + + | Preferred Language | Unknown | + + + | Marital Status | | + + + | Zoroastrian Affiliation | 1077 | + + + | Race | Unknown | + + + | Ethnic Group | Unknown | + + + Author + + + | Author | [facility] | | | and [place] | + + + | Organization | [facility] | | [...] Team Providers + +------+ + | Care Cooperative Education Coordinator Name | Role | Phone | + +------+ + | Aldo Frank DO | PCP | | + +------+ + Encounter Details +--------+ + + + + | Date | Type | Department | Care Team | Description | +--------+ + + + + | 05/21/ | Orders Only | [facility] | Geraldo Bass | DDD (degenerative | | 2019 | | NEUROSURGERY [address] | MD Farhat [address] | disc disease), | | | | [address] | [address] [place] | lumbar (Primary Dx); | | | | [place], [place] | [place] [address] | Spondylolisthesis | | | | [address] | [phone] | of lumbar region; | | | | [phone] | | High cholesterol; | | | | | | 1st degree AV block | +--------+ + + [...] + +---------+ + + CBC with Differential (06/09/2019 12:59 PM PST) + + + + + + | Component | Value | Ref Range | Performed | Pathologist | | | | | At | Signature | + + + + + + | WBC | 5.7 | 4.0 - 11.0 K/uL | [facility] [...] | 0.00 | 0.00 - 0.01 | [facility] | | | nRBC | | K/uL | [facility] | [...] [address] | [place] | [phone] | | [facility] | | [address] | | | - LABORATORY | | | | + + + + + Basic Metabolic Panel (06/09/2019 12:59 PM PST) [...] | 1.30 | 0.70 - 1.30 | [facility] | | | | | mg/dL | [facility] | | | | | | MEDICAL | | | | | | CENTER - | | | | | | LABORATORY | | + + + + + + | eGFR if not | 54 (L)Comment: | >=60 | [facility] | | | NORMA | GLOMERULAR FILTRATION | mL/min/1.73m2 | [facility] | | | SCOTTISH | RATE,ESTIMATED | | MEDICAL | | | | mL/min/1.79u2Rtbz than | | CENTER - | | [...] + | [facility] [facility] | [address] | [place] | [phone] | | [facility] | | [address] | | | - LABORATORY | | [...] | | | | BALJINDER BLUE MD ([id number]) | | | | | | on [...]
--- OUTSIDE RECORDS SUMMARY | ~2019-11-22 | XMS | Encounter Summary ---
Demographics + + + | Address | [address] | | | [place] [address] | + + + | Home Phone [...] Team Providers + +------+ + | Care Sheriffs Officer Name | Role | Phone | [...] | | [address] | [place] [address] | | | | | [place], [place] | [phone] | | | | | [address] | | | | | | [phone] | | | +--------+ + + + [...]
--- OUTSIDE RECORDS SUMMARY | ~2019-11-22 | XMS | Encounter Summary ---
Demographics + + + | Address | [address] | | | [place] [address] | + + + | Home Phone | | + + + | Preferred Language | Unknown | + + + | Marital Status | | + + + | Buddhist Affiliation | 1077 | + + + [...] Team Providers + +------+ + | Care Lavender Farm Worker Name | Role | Phone | + +------+ + PCP | Unavailable | + +------+ + Encounter Details +--------+ + + + + | Date | Type | Department | Care Team | Description | +--------+ + + + + | 04/17/ | Hospital | [facility] | | | | 2009 | Encounter | MED CTR OP INFUSION | | | | | | [address] | | | | | | [place] | | | | | | [address] | | | | | | [phone] | | | +--------+ + + + [...]
--- OUTSIDE RECORDS SUMMARY | ~2019-11-22 | XMS | Encounter Summary ---
Demographics + + + | Address | [address] | | | [place] [address] | + + + | Home Phone | | + + + | Preferred Language | Unknown | + + + | Marital Status | | + + + | Latter-Day Affiliation | 1077 | + + + [...] Team Providers + +------+ + | Care Black Top Spreader Machine Operator Name | Role | Phone | + +------+ + | Aldo Frank DO | PCP | | + +------+ + Reason for Visit + + + | Reason | Comments | + + + | Appointment | | + + + Encounter Details +--------+ + + + + | Date | Type | Department | Care Team | Description | +--------+ + + + + | 06/26/ | Telephone | [facility] [place] | Brian Noble, | Appointment | | 2019 | | NEUROSURGERY [address] | PA-C [address] | | | | | [address] | [address] [place] | | | | | [place], [place] | [place] [address] | | | | | [address] | [phone] | | | | | [phone] | | | +--------+ + + + [...]
--- OUTSIDE RECORDS SUMMARY | ~2019-11-22 | XMS | Encounter Summary ---
Demographics + + + | Address | [address] | | | [place] [address] | + + + | Home Phone [...] Team Providers + +------+ + | Care Track Announcer Name | Role | Phone | + +------+ + | Aldo Frank DO | PCP | | + +------+ + Reason for Visit + + + | Reason | Comments | + + + | Pain Management | Preop and DC MEDD (CHILD NUTRITION MANAGER) | + + + Encounter Details +--------+ + + + + | Date | Type | Department | Care Team | Description | +--------+ + + + + | 06/18/ | Documentati | [facility] | Geraldo Bass | Pain Management | | 2019 | on | NEUROSURGERY [address] | MD Farhat [address] | (Preop and DC MEDD | | | | [address] | [address] [place] | (CHILD NUTRITION MANAGER)) | | | | [place] | [place] [address] | | | | | [address] | [phone] | | | | | [phone] | | | +--------+ + + + [...] documented as of this encounter Progress Notes Jia Clark RN - 06/18/2019 8:08 AM PSTPatient discharged today DC MEDD=45-90 Hydrocodone 7.5/325 1-2 tablets every 4 hrs prn #60 (5 day supply) Jia Harp RN - 06/18/2019 8:08 AM PSTPMP ch trung r/t 06/18/[address] Bass The following information was obtained from https://secureaccess.[place].gov/myAccess/saw/select .do on 06/18/19. No results returned with [place] [facility] CHILD NUTRITION MANAGER query. documented in this enco unter Plan of Treatment Not on filedocumented as of this encounter Visit Diagnoses Not on filedocumented in this encounter"
--- OUTSIDE RECORDS SUMMARY | ~2019-11-22 | XMS | Encounter Summary ---
Demographics + + + | Address | [address] | | | [place] [address] | + + + | Home Phone [...] Team Providers + +------+ + | Care Bull Gang Worker Name | Role | Phone | + +------+ + | Aldo Frank DO | PCP | | + +------+ + Reason for Referral Surgical (Routine) + + + + + + + | Status | Reason | Specialty | Diagnoses / | Referred By | Referred To | | | | | Procedures | Contact | Contact | + + + + + + + | Authorized | Specialty | Neurosurgery | Diagnoses | | Schlitt, | | | Services | | Failed [...] | | fusion | [place], [place] | [place] | | | | | | [address] | [address] Phone: | | | | | | Phone: | [phone] | | | | | | [phone] | Fax: | | | | | | Fax: | [phone] | | | | | | [phone] | | + + + + + + + Encounter Details +--------+ + + + + | Date | Type | Department | Care Team | Description | +--------+ + + + + | 04/10/ | Orders Only | [facility] [place] | Pj Riggs | Failed back surgical | | 2019 | | PHYSIATRY [address] [place] Singer MD [address] | syndrome (Primary | | | | [address] | [place] | Dx); S/P lumbar | | | | [place], [place] | [address] | fusion | | | | [address] | | | | | | [phone] | | | +--------+ + + + [...] | Routin | Failed back | Ordered: 04/10/2019 | | to Neurosurgery | Referral | e | surgical syndrome | | | | | | S/P lumbar fusion | | + + +--------+ + + documented as of this encounter Visit Diagnoses + + | Diagnosis | + + | 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
--- OUTSIDE RECORDS SUMMARY | ~2019-11-22 | XMS | Encounter Summary ---
Demographics + + + | Address | [address] | | | [place] [address] | + + + | Home Phone [...] Team Providers + +------+ + | Care Observer Electrical Prospecting Name | Role | Phone | + +------+ + | Aldo Frank DO | PCP | | + +------+ + Reason for Visit + + + | Reason | Comments | + + + | Pain Management | Preop appointment (SUPERVISOR LEAF SPRING REPAIR) | + + + Encounter Details +--------+ [...] [address] | [address] [place] | (SUPERVISOR LEAF SPRING REPAIR)) | | | | [place] | [place] [address] | | | | | [address] | [phone] | | | | | [phone] | | | +--------+ + + + [...] Francois. The following information was obtained from https://[employer].gov/myAccess/saw/select .do on 06/08/19. No results obtained from [facility] 3 month query. documented in this enco unter Plan of Treatment Not on filedocumented as of this encounter Visit Diagnoses Not on filedocumented in this encounter"
--- OUTSIDE RECORDS SUMMARY | ~2019-11-22 | XMS | Encounter Summary ---
Demographics + + + | Address | [address] | | | [place] [address] | + + + | Home Phone | | + + + | Preferred Language | Unknown | + + + | Marital Status | | + + + | Jew Affiliation | 1077 | + + + | Race | Unknown | + + + | Ethnic Group | Unknown | + + + Author + + + | Author | [facility] | | | and [place] | + + + | Organization | [facility] | | [...] Team Providers + +------+ + | Care Stave Hewer Name | Role | Phone | + [...] + + | 12/14/ | Office | [facility] | Yaya Kirk | DDD (degenerative | | 2015 | Visit | NEUROSURGERY [address] | [address] | disc disease), | | | | [address] | [address] | lumbar (Primary Dx); | | | | [place], [place] | [place] [address] | Facet arthropathy, | | | | [address] | [phone] | lumbar; S/P lumbar | | | | [phone] | | fusion | +--------+---------+ + + [...] t from the original. TRENT Vicente [address] [facility], [address] [place] [address] FAX: NEUROSURGERY FOLLOW-UP CHIEF COMPLAINT: Chief Complaint [...] is doing fairly well from a back andgreen pond. His symptoms are not bad enough that [...] Laterality: N/A; Surgeon: Kemal lozano MD; Location: [facility] MAIN OR CURRENT MEDICATIONS: Current Outpatient Prescriptions Medication Sig Dispense Refill acetaminophen (TYLENOL) 325 mg tablet Take 325 mg by mouth Daily. Prn pain Jgybspnqe-Vyvfhkyjxhj-Yoo D (GLUCOSAMINE COMPLEX PO) Take 2 tablets [...]
--- OUTSIDE RECORDS SUMMARY | ~2019-11-22 | XMS | Clinical Summary ---
Demographics + + + | Address | [address] | | | [place] [address] | + + + | Home Phone | | + + + | Preferred Language | Unknown | + + + | Marital Status | | + + + | Baptism Affiliation | Unknown | + + + | Race | Unknown | + + + | Ethnic Group | Unknown | + + + Author + + + | Author | [employer] [facility] (Historical as of | | | 02-28-19) | + + + | Organization | [facility] (Historical as of | | | 02-28-19) [...] Team Providers + +------+ + | Care Freelance Web Designer Name | Role | Phone | [...] Overview: Added automatically from request for surgery [id number] | + + + + + | Cubital tunnel syndrome, right | 01/16/2018 | + + + + + | Overview: Added automatically from request for surgery [id number] | + + + + + | [...] +------+-------+ + | PREMERA | PREMER | [id number] | | | [address] [address] | | | A BLUE | | | | [place], [place] | | | CROSS | | | | [address] | | | FED | | | | | | | PPO | | | | | + +--------+ +------+-------+ + | MEDICARE | MEDICA | [id number] | | | [address] | | | RE | | | | [place] [address] | | | IP-OP | | | [...] | Self | [birth year] | Home: | [address] | | | al/Kofi | | 1945 | [phone] | [place] | | | aye | | | [phone] | [address] | + +--------+ +--------+ + +
--- OUTSIDE RECORDS SUMMARY | ~2019-11-22 | XMS | Encounter Summary ---
Demographics + + + | Address | [address] | | | [place] [address] | + + + | Home Phone [...] + + + | Author | [facility] | + + + | Organization | [facility] | + + + | Address | Unknown | + + + | Phone | Unavailable | + + + Support + + + + + | Name | Relationship | Address | Phone | + + + + + | Ricarda Johnson | ECON | [address] | | | | | [place] | | | | | [address] | | + + + + + Care Team Providers + +------+ + | Care Xerox Machine Assembler Name | Role | Phone | + +------+ + | Hay Greco MD | PCP | | + +------+ + Encounter Details +--------+ + + + + | Date | Type | Department | Care Team | Description | +--------+ + + + + | 07/31/ | Telephone | [facility] | [place], | | | 2011 | | [place] [facility] [address] | [address] | | | | | [address] | [address] | | | | | Mailcode: Center | [place], [place] | | | | | for Health and | [address] | | | | | [facility] | [phone] | | | | | [place], [place] | | | | | | [address] | | | | | | [phone] | | | +--------+ + + + [...]
--- OUTSIDE RECORDS SUMMARY | ~2019-11-22 | XMS | Encounter Summary ---
Demographics + + + | Address | [address] | | | [place] [address] | + + + | Home Phone | | + + + | Preferred Language | Unknown | + + + | Marital Status | | + + + | Uatsdin Affiliation | 1077 | + + + | Race | Unknown | + + + | Ethnic Group | Unknown | + + + Author + + + | Author | [facility] | | | and [place] | + + + | Organization | [facility] | | | [...] Team Providers + +------+ + | Care Graphic User Interface Designer Name | Role | Phone | [...] [place] | | | | | | [address] | [address] Phone: | | | | | | Phone: | [phone] | | | | | | [phone] | Fax: | | | | | | Fax: | [phone] | | | | | | [phone] | | + + + + + [...] | | [place] | [place] [address] | pain; Facet | | | | [address] | [phone] | arthropathy of | | | | [phone] | | spine; Failed back | | [...] 05/12/2019 10:30 AM PDT Geraldo Bass MD [address] [place] [address], [address] [place] [address] FAX: [phone] NEUROSURGERY HISTORY AND PHYSICAL EXAMINATION CHIEF COMPLAINT: [...] Laterality: N/A; Surgeon: Kemal Damian MD; Location: [facility] MAIN OR LUMBAR LAMINECTOMY Dr. Tavarez LUMBAR SPINE SURGERY N/A 06/19/2017 Procedure: L1-2 LAIF w/ Lateral Plating; Surgeon: Kemal Damian MD; Location: [facility] MAIN OR ND NJX DX/THER SBST EPIDURAL/SUBRACH CERV/THORACIC N/A 03/25/2019 Procedure: SCS; Surgeon: Pj Riggs MD; Location: [facility] INTERVENTIONAL RADIOLOGY SMALL INTESTINE SURGERY 2011 [...] has no apparent deficits with short or prison memory. CRANIAL NERVES: II: Acuity is intact. [...] 5 Interossei 5 5 APB 5 5 Stock Patcher Strength 5 5 Hip Flexion 5 5 [...]
--- OUTSIDE RECORDS SUMMARY | ~2019-11-22 | XMS | Encounter Summary ---
Demographics + + + | Address | [address] | | | [place] [address] | + + + | Home Phone [...] + | Ricarda Johnson | ECON | [address] | | | | | [place] | | | | | [address] | | + + + + + Care Team Providers + +------+ + | Care Medical Detailist Name | Role | Phone | + [...] | | | | REQUEST TO | [place], [place] | [place] | | | | | SURGERY | [address] | [address] | | | | | MANAGER MAIL | Phone: | Phone: | | | | | [place] PART | [phone] | [phone] | | | | | REMOVAL | Fax: | Fax: | | | | | COLON [place] | [phone] | [phone] | | | | | COLOPROCTOST | | | | | | | [place] | | | | | | | [...] + + + + | 07/17/ | Biomedical Equipment Tech | [facility] | Edgar Hampton, | Malignant neoplasm | | 2010 | | [facility] [address] | [address] | of rectum (HCC) | | | | [address] | [address] | (Primary Dx) | | | | Mailcode: Conger | [place], [place] | | | | | [facility] and | [address] | | | | | [facility] 2 | [phone] | | | | | [place], [place] | | | | | | [address] | | | | | | [phone] | | | +--------+ + + + [...]
--- OUTSIDE RECORDS SUMMARY | ~2019-11-22 | XMS | Encounter Summary ---
Demographics + + + | Address | [address] | | | [place] [address] | + + + | Home Phone [...] Providers + +------+ + | Care Head Operator Name | Role | Phone | [...] + + | 05/21/ | Telephone | [facility] [place] | Geraldo Bass | Medication Screening | | 2018 | | [place] [address] [place] Dougherty MD [address] | (NS medications to | | | | [address] | [address] [place] | stop prior to | | | | [place] | [place] [address] | surgery) | | | | [address] | [phone] | | | | | [phone] | | | +--------+ + + + [...]
--- OUTSIDE RECORDS SUMMARY | ~2019-11-22 | XMS | Encounter Summary ---
Demographics + + + | Address | [address] | | | [place] [address] | + + + | Home Phone [...] Providers + +------+ + | Care Wildlife Refuge Manager Name | Role | Phone | [...] | | | | | sciatica | [place], [place] | | | | | | S/P lumbar | [address] | | | | | | fusion | Phone: | | | | | | Procedures | [phone] | | | | | | IR Pain | Fax: | | | | | | Management/S | [phone] | | | | | | keletal | | | +--------+--------+ + + + + Reason for Visit Auth/Cert +--------+--------+ + + + + | Status | Reason | Specialty | Diagnoses / | Referred By | Referred To | | | | | Procedures | Contact | Contact | +--------+--------+ + + + + | | | | Diagnoses | | | | | | | SCS trial | | | | | | | with Nevro | | | | | | | Procedures | | | | | | | SCS | | | +--------+--------+ + + + + Encounter Details +--------+ + + + + | Date | Type | Department | Care Team | Description | +--------+ + + + + | 03/25/ | Hospital | [facility] | Pj Riggs | Chronic bilateral | | 2019 | Encounter | MED CTR XRAY [address] | [address] | low back pain | | | | [place] | [place], [place] | without sciatica; | | | | [place] [address] | [id number] | S/P lumbar fusion; | | | | [phone] | | Failed back syndrome | | | | | Nurse, Gideon Rad | of lumbar spine | | | | | Certification Engineer, Milagro | | | | | | [place] [...] | + +--------+ + + + | IR PAIN | Routin | 03/25/2019 | Chronic bilateral | Results for this | | MANAGEMENT/SKELETAL | e | 2:40 PM | low back pain | procedure are in the | | | | PDT | without sciatica | results section. | | | | | S/P lumbar fusion | | + +--------+ + + + documented in this encounter Results IR Pain Management/Skeletal (03/25/2019 [...] my direction according to | | | hospital conscious sedation protocol. The area for the [...] pain without sciatica | + + | S/P lumbar fusion Arthrodesis status | + + | Failed back syndrome of lumbar spine Postlaminectomy syndrome, lumbar region | + + documented in this encounter Administered Medications + +--------+ +-------+------+ + | Medication Order | MAR | Action | Dose | Rate | Site | | | Action | Date | | | | + +--------+ +-------+------+ + | lidocaine buffered 0.9% | Given | 03/25/20 | 6 mLs | | Other | | injection 6 mL 6 mL, | | 19 1:20 | | | (Comment | | Intradermal, ONCE, 03/25/19 at | | PM PDT | | | ) | | 1300, For 1 dose | | | | | | + +--------+ +-------+------+ + +---+---+ | | | +---+---+ + +-------+ +-------+---+ + | lidocaine buffered 0.9% | Given | 03/25/20 | 6 mLs | | Other | | injection 6 mL 6 mL, | | 19 12:45 | | | (Comment | | Intradermal, ONCE, 03/27/19 at | | PM PDT | | | ) | | 1815, For 1 dose | | | | | | + +-------+ +-------+---+ + +---+---+ | | | +---+---+ documented in this encounter"
--- OUTSIDE RECORDS SUMMARY | ~2019-11-22 | XMS | Encounter Summary ---
Demographics + + + | Address | [address] | | | [place] [address] | + + + | Home Phone [...] Team Providers + +------+ + | Care Seo Professional Name | Role | Phone | + [...] | Changes | NEUROSURGERY [address] | [place] | | | | | [address] | | | | | | [place] | | | | | | [address] | | | | | | [phone] | | | +--------+ + + + [...]
--- OUTSIDE RECORDS SUMMARY | ~2019-11-22 | XMS | Encounter Summary ---
Demographics + + + | Address | [address] | | | [place] [address] | + + + | Home Phone | | + + + | Preferred Language | Unknown | + + + | Marital Status | | + + + | Hinduism Affiliation | 1077 | + + + [...] Team Providers + +------+ + | Care Online Merchandising Manager Name | Role | Phone | [...] MRI | Diagnoses | [facility] | [facility] | | | | | Lumbar | [facility] | | | | | radicular | [address] | | | | | pain | [address] | [address] | | | | | Procedures | [address] | [place], [place] | | | | | MRI Lumbar | [place], | [address] | | | | | Spine wo | [place] [address] | Phone: | | | | | Contrast [place] | Phone: | [phone] | | | | | MRI, LUMBAR | [phone] | Fax: | | | | | SPINE | Fax: | [phone] | | | | | | [phone] | | +--------+--------+ + + + + Reason for Visit + + + | Reason | Comments | + + + | Follow-up | Low Back Pain | + + + Encounter Details +--------+---------+ + + + | Date | Type | Department | Care Team | Description | +--------+---------+ + + + | 04/03/ | Office | [facility] | David Brower, | Lumbar spondylosis | | 2018 | Visit | PHYSIATRY [address] | PA-C [address] | (Primary Dx); Lumbar | | | | [address] | [address] [place] | radicular pain; S/P | | | | [place], [place] | [place] [address] | lumbar fusion | | | | [address] | [phone] | | | | | [phone] | | | +--------+---------+ + + + [...] press against a nerve. Date Last Reviewed: 09/12/201719992672-5399 [email or web address]. [address] [place] [address], [place] [address]. All righ ts reserved. This information is [...] of the procedure you must provide a local company refrigerated truck driver to take you home. For all procedur es it is recommended that someone else drive you home. Facet Pain: Visit this web link for a visually stunning, short, and informative video: [email or web address] The facet joint is located when the [...] of blood sugars if you are diabetic. terminal gauger risk can lead to osteoporosis which is [...] not feel pain. You must have a local company refrigerated truck driver to get home from the [...] day of your treatment. Date Last Reviewed: 10/13/201719991640-7883 [email or web address]. [address] [place] [address], [place] [address]. All righ ts reserved. This information is not intended as a substitute for professional medical care. Always follow your healthcare professional's instructions. documented in this encounter Progress Notes David Brower PA-C - 04/03/2018 10:00 AM PDTFormatting of this note might be different fro m the original. [address] [facility], [address] [place], [place] [id number] FAX: PHYSICAL MEDICINE AND REHABILITATION H&P CHIEF [...] Laterality: N/A; Surgeon: Kemal Damian MD; Location: [facility] MAIN OR LUMBAR LAMINECTOMY Dr. Tavarez LUMBAR SPINE SURGERY N/A 06/19/2017 Procedure: L1-2 LAIF w/ Lateral Plating; Surgeon: Kemal Damian MD; Location: [facility] MAIN OR SMALL INTESTINE SURGERY 2011 Rectal [...] apparent deficits with short or prison memory. 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 Unfortunately Cosmo Johnson continues to have significant [...]
--- OUTSIDE RECORDS SUMMARY | ~2019-11-22 | XMS | Encounter Summary ---
Demographics + + + | Address | [address] | | | [place] [address] | + + + | Home Phone | | + + + | Preferred Language | Unknown | + + + | Marital Status | | + + + | Religion Affiliation | 1077 | + + + | Race | Unknown | + + + | Ethnic Group | Unknown | + + + Author + + + | Author | [facility] | | | and [place] | + + + | Organization | [facility] | | [...] Team Providers + +------+ + | Care Sanitary Landfill Operator Name | Role | Phone | + +------+ + PCP | Unavailable | + +------+ + Encounter Details +--------+ + + + + | Date | Type | Department | Care Team | Description | +--------+ + + + + | 06/16/ | Hospital | [facility] | | | | 2009 - | Encounter | MED CTR CANCER | | | | | | CENTER [address] | | | | 07/14/ | | [place] | | | | 2009 | | [address] | | | | | | [phone] | | | +--------+ + + + [...]
--- OUTSIDE RECORDS SUMMARY | ~2019-11-22 | XMS | Encounter Summary ---
Demographics + + + | Address | [address] | | | [place] [address] | + + + | Home Phone | | + + + | Preferred Language | Unknown | + + + | Marital Status | | + + + | Hinduism Affiliation | PRE | + + + | Race | White | + + + | Ethnic Group | Not or | + + + Author + + + | Author | [facility] | + + + | Organization | [facility] | + + + | Address | Unknown | + + + | Phone | Unavailable | + + + Support + + + + + | Name | Relationship | Address | Phone | + + + + + | Ricarda Johnson | ECON | [address] | | | | | [place] | | | | | [address] | | + + + + + Care Team Providers + +------+ + | Care Para Operator Name | Role | Phone | + +------+ + | Hay Greco MD | PCP | | + +------+ + Encounter Details +--------+------+ + + + | Date | Type | Department | Care Team | Description | +--------+------+ + + + | 07/25/ | Lab | Laboratory at [facility] | | Pre-op evaluation; | | 2010 | | [address] | | Screening for | | | | [place], [place] | | diabetes mellitus; | | | | [address] | | Malignant neoplasm | | | | [phone] | | of rectum (HCC) | +--------+------+ + + + Social History + +-------+ [...] | + +--------+ + + + | CONFIRMATORY ABO/RH | Routin | 07/26/2010 | | Results for this | | | e | 1:08 PM | | procedure are in the | | | | PST | | results section. | + +--------+ + + + | CARCINOEMBRYONIC AG, | Routin | 07/25/2010 | Pre-op evaluation | Results for this | | SERUM | e | 11:26 AM | Malignant neoplasm | procedure are in the | | | | PST | of rectum (HCC) | results section. | + +--------+ + + + | COMPLETE METABOLIC | Routin | 07/25/2010 | Pre-op evaluation | Results for this | | SET | e | 11:26 AM | Malignant neoplasm | procedure are in the | | (NA,K,CL,CO2,BUN,CRE | | PST | of rectum (HCC) | results section. | | AT,GLUC,CA,AST,ALT,B | | | | | | HUMERA TOTAL,ALK | | | | | | PHOS,ALB,PROT TOTAL) | | | | | + +--------+ + + + | UA, DIPSTICK ONLY | Routin | 07/25/2010 | Pre-op evaluation | Results for this | | | e | 11:26 AM | Malignant neoplasm | procedure are in the | | | | PST | of rectum (HCC) | results section. | + +--------+ + + + | CBC ONLY | Routin | 07/25/2010 | Pre-op evaluation | Results for this | | | e | 11:26 AM | Malignant neoplasm | procedure are in the | | | | PST | of rectum (HCC) | results section. | + +--------+ + + + | TYPE AND SCREEN | Routin | 07/25/2010 | Pre-op evaluation | Results for this | | | e | 11:26 AM | Malignant neoplasm | procedure are in the | | | | PST | of rectum (HCC) | results section. | + +--------+ + + + | HEMOGLOBIN A1C, | Routin | 07/25/2010 | Pre-op evaluation | Results for this | | BLOOD | e | 11:26 AM | Screening for | procedure are in the | | | | PST | diabetes mellitus | results section. | + +--------+ + + + documented in this encounter Results CONFIRMATORY ABO/RH (07/26/2010 1:08 PM PST) + + + + + [...] DEPARTMENT OF | [address] | [place] [address] | | | PATHOLOGY | [address] | | | + + + + + UASONIA ONLY (07/25/2010 11:26 AM PST) + + [...] + + + | [facility] | [address] | [place] [address] | | | PATHOLOGY | [address] [...] by | | | | | | [employer], | | | | | | | | | | | | [address] | | | | | | [place] | | | | | | [address] | | | | | | | | | | | | [email or web address], | | | | | | Rebeca [...] [facility] | [address] | [place], [place] | | | [facility] | | [address] | | + + + + + [...] + + + | [facility] | [address] | [place] [address] | | | PATHOLOGY | [address] [...] + + + | [facility] | [address] [facility] | [place] [address] | | | PATHOLOGY | [address] [...] | | | DEPARTMENT | | | CONG[place]ESE | | | OF | | | [...] | + + + + + | [facility] DEPARTMENT | [address] | [place] [address] | | | PATHOLOGY | [address] [...] Information If you are screening for | MARROQUNI | | diabetes: <5.7 Non-diabetic 5.7-6.4 | REGIONAL | | Prediabetes >6.4 Diabetes, if confirmed For | LABORATORY | | monitoring of diabetes control: <7.0 Usual goal of | | | treatment; low risk for complications 7.0-8.0 Some | | | increased risk for long-term complications >8.0 | | | Higher risk of complications; strongly consider | | | intensifying therapy [facility] ([facility]) | | | [facility] [place] [address] | | | [place] [address] | | + + + + + + + + | Performing | Address | City/State/Zipcode | Phone Number | | Organization | | | | + + + + + | [facility] | [address] | [place] [address] | | | LABORATORY | | | | + + + + + documented in this encounter Visit Diagnoses + + | Diagnosis | + + | Pre-op evaluation Preoperative examination, unspecified | + + | Screening for diabetes mellitus | + + | Malignant neoplasm of rectum (HCC) Malignant neoplasm of rectum | + + documented in this encounter"
--- OUTSIDE RECORDS SUMMARY | ~2019-11-22 | XMS | Encounter Summary ---
Demographics + + + | Address | [address] | | | [place] [address] | + + + | Home Phone [...] + | Ricarda Johnson | ECON | [address] | | | | | [place] | | | | | [address] | | + + + + + Care Team Providers + +------+ + | Care Service Desk Analyst Name | Role | Phone | [...] [place] | | | | | | [facility] [place] | [place], [place] | | | | | | [address] | [address] | | | | | | Phone: | Phone: | | | | | | [phone] | [phone] | | | | | | Fax: | Fax: | | | | | | [phone] | [phone] | +--------+--------+ + + + + Encounter [...] | | | | [facility] | [place] [address] | [facility] | | | | Brian, 3rd floor | [phone] | | | | | [place], [place] | | | | | | [address] | | | | | | [phone] | | | +--------+---------+ + + + [...] Rodriguez MD Pulmonary & Critical Care Medicine [address] [place] [id number] Primary Care Physician: [facility] [address] [place] [id number] Mr. Johnson presents to [facility] [...] 12 he presented to the ED in [place] and was given IV glucocorticoid and a course of oral prednisone. He got no better and was was readmitted to the OSH on 07/30/2011. He was febrile to 104.5 with rigors, and was found to have MSSA bacteremia and was therefore transferred to [facility] on 08/01/2011. At [facility], no source for the MSSA bacteremia was [...] 6-8 week course of Ceftriaxone was recommended. [facility] was contracted for these services, with his PCP providing weekly labs and PICC dressing changes. The patient was deemed suitable for discharge to home on 08/09/2011. [facility] OPAT foll ow-up was planned in 2-3 weeks time. Relevant Radiology: 06/11/11: MRI Lumbar Spine at [place] notable for L sacral lesion with contrast enhance ment suspicious for met 06/20/11: CT chest, abd, pelvis w/contrast at [facility] with "no definite metastatic disease" 06/21/11: [facility] PET Scan "geographic left sacral ala FDG hypermetabolism most likely represen ting insufficiency fracture" 06/29/11: Bone Scan at [place] "intense radiotracer activity in the L sacrum along the L sacroiliac joint from top to bottom in a pattern that suggests a fracture" 06/29/11: MRI pelvis from [place] "abnormal signal intensity and enhancement in the lef t sacrum, left ilium, right ilium, and L5 pedical and L5 vertebral body. The [facility] CT scan al so demonstrates and L1 [...] Take 1 Cap by mouth once daily. Thornton-3 Fatty Acids-Vitamin E (FISH OIL) 1,000 mg [...] above discussion. JHON JACKSON MD INFECTIOUS DISEASES [address] [place] [address] Mailcode: L608 [facility] [address] documented in this e ncounter Plan of Treatment Not on filedocumented as of this encounter Visit Diagnoses + + | Diagnosis | + + | Encounter for long-term (current) use of antibiotics | + + | Osteomyelitis (HCC) Unspecified osteomyelitis, site unspecified | + + documented in this encounter
--- OUTSIDE RECORDS SUMMARY | ~2019-11-22 | XMS | Encounter Summary ---
Demographics + + + | Address | [address] | | | [place] [address] | + + + | Home Phone [...] Providers + +------+ + | Care Marketing Analytics Specialist Name | Role | Phone | [...] | | | | | | [place] | | | | | | | ARTHRODESIS | | | | | | | POSTERIOR/PO | | | | | | | STEROLATERAL | | | | | | | LUMBAR [place] | | | | | | | LUMBAR SPINE | | | | | | | | | | | | | | FUSION,ANTER | | | | | | | APPRCH [place] | | | | | | | [...] + + | 06/19/ | Hospital | [facility] | Keaml Damian MD | Gait abnormality | | 2017 - | Encounter | MED CTR SURGICAL | [address] | (Primary Dx); S/P | | | | [address] | [place] [address] | lumbar fusion; | | 06/21/ | | [place] [address] | [phone] | Spinal stenosis of | | 2017 | | [phone] | | lumbar region, | | | [...] note might be different from sharon kim. [facility] NEUROSURGERY DISCHARGE SUMMARY Patient Name: Cosmo [...] month post op appointment before your appointment. [id number] [employer]. [address] [place] [address]. All righ ts reserved. This information is [...] might be differ ent from the original. [facility] NEUROSURGERY PROGRESS NOTE PATIENT NAME: [...] short or director long term care memory. MOTOR EXAM: Motor strength is stable [...] Ibarra PA-C - 06/20/2017 7:40 AM PST [facility] NEUROSURGERY PROGRESS NOTE PATIENT NAME: [...] 1-2 spray 1-2 spray Mouth/Throat Q3H PRN Kikr matthews PA-C polyethylene glycol (MIRALAX) powder 17 g 17 g Oral Daily PRN MELISSA Mai 17 g at 06/20/17 0616 potassium chloride (K-DUR) ER tablet 20 mEq 20 mEq Oral Daily MELISAS Mai prochlorperazine (COMPAZINE) tablet 5 mg 5 [...] has no apparent deficits with short or skilled nursing memory. 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
--- OUTSIDE RECORDS SUMMARY | ~2019-11-22 | XMS | Encounter Summary ---
Demographics + + + | Address | [address] | | | [place] [address] | + + + | Home Phone [...] Team Providers + +------+ + | Care Pcat Instructor Name | Role | Phone | + +------+ + | Hay Greco MD | PCP | | + +------+ + Encounter Details +--------+ + + + + | Date | Type | Department | Care Team | Description | +--------+ + + + + | 10/14/ | [facility] | [facility] | Kemal Damian MD | Rectal cancer (HCC); | | 2013 | Encounter | MED CTR XRAY [address] | [address] | High cholesterol; | | | | [address] | [place] [address] | Preoperative testing | | | | [place] [address] | [phone] | | | | | [phone] | | | +--------+ + + + [...] + | MISCELLANEOUS LAB | | | [phone] | + +---------+ + + | MISCELANIOUS LAB | | | [phone] | + +---------+ + + documented in this encounter Visit Diagnoses + + | Diagnosis | + + | Rectal cancer (HCC) Malignant neoplasm of rectum | + + | High cholesterol Pure hypercholesterolemia | + + | Preoperative testing Preoperative examination, unspecified | + + documented in this encounter"
--- OUTSIDE RECORDS SUMMARY | ~2019-11-22 | XMS | Encounter Summary ---
Demographics + + + | Address | [address] | | | [place] [address] | + + + | Home Phone [...] + | Ricarda Johnson | ECON | [address] | | | | | [place] | | | | | [address] | | + + + + + Care Team Providers + +------+ + | Care Paralegals Name | Role | Phone | + +------+ + | Hay Greco MD | PCP | | + +------+ + Reason for Visit + + + | Reason | Comments | + + + | Follow-up visit | | + + + Office Visit - E/M Services (Routine) +--------+--------+ [...] [place], | | | | | | [address] | [address] | | | | | | [address] | [address] | | | | | | [address] | [facility] | | | | | | [place], [place] | [place], [place] | | | | | | [address] | [address] | | | | | | Phone: | Phone: | | | | | | [phone] | [phone] | | | | | | Fax: | Fax: | | | | | | [phone] | [phone] | +--------+--------+ + + + + Encounter Details +--------+---------+ + + + | Date | Type | Department | Care Team | Description | +--------+---------+ + + + | 08/31/ | Office | Infectious | Rona Kulkarni | MSSA (methicillin | | 2011 | Visit | [facility] at [facility] | [place] [facility] [address] | susceptible | | | | [address] | [address] | Staphylococcus | | | | Loop Phys[facility]'s | [place], [place] | aureus) septicemia | | | | Pavilion, 3rd floor | [address] | (FORMERLY [facility]); Encounter for | | | | [place], [place] | [phone] | long-term (current) | | | | [address] | | use of antibiotics | | | | [phone] | | | +--------+---------+ + + + [...] + + + | Blood Pressure | 118/78 | 08/31/2011 11:41 AM | | | | | PST | | + + + + + | Pulse | 72 | 08/31/2011 11:41 AM | | | | | PST | | + + + + + | Temperature | 36.7 C (98 F) | 08/31/2011 11:41 AM | | | | | PST | | + + + + + | Respiratory Rate | - | - | | + + + + + | Oxygen Saturation | 99% | 08/31/2011 11:41 AM | | | | | PST | | + + + + + | Inhaled Oxygen | - | - | | | Concentration | | | | + + + + + | Weight | 81.2 kg (179 lb) | 08/31/2011 11:41 AM | | | | | PST | | + + + + + | Height | 175.3 cm (5' 9") | 08/31/2011 11:41 AM | | | | | PST | | + + + + + | Body Mass Index | 26.43 | 08/31/2011 11:41 AM | | | | | PST | | + + + + + documented in this encounter Progress Notes Rona Kulkarni PA-C - 08/31/2011 11:31 AM PSTFormatting of this note might be differen t from the original. INFECTIOUS DISEASES CLINIC FOLLOW UP Primary Care Physician: [facility] [address] [place] [address] [place] [address] Mr. Johnson presents to Infectious Diseases Clinic regarding scheduled follow up. The following history was obtained from review of patient records as compiled by myself maya or to today's OPAT visit: Cosmo Johnson is a 66 y.o. male [...] 12 he presented to the ED in [place] and was given IV glucocorticoid and a course of oral prednisone. He got no better and was was readmitted to the OSH on 07/30/2011. He was febrile to 104.5 with rigors, and was found to have MSSA bacteremia and was therefore transferred to [facility] on 08/01/2011. At [facility], no source for the MSSA bacteremia was [...] 6-8 week course of Ceftriaxone was recommended. [facility] was contracted for these services, with his PCP providing weekly labs and PICC dressing changes. The patient was deemed suitable for discharge to home on 08/09/2011. [facility] OPAT foll ow-up was planned in 2-3 weeks time. Relevant Radiology: 06/11/11: MRI Lumbar Spine at [facility] notable for L sacral lesion with contrast enhanc ement suspicious for met 06/20/11: CT chest, abd, pelvis w/contrast at [facility] with "no definite metastatic disease" 06/21/11: [facility] PET Scan "geographic left sacral ala FDG hypermetabolism most likely represen ting insufficiency fracture" 06/29/11: Bone Scan at [facility] "intense radiotracer activity in the L sacrum along the L sacroiliac joint from top to bottom in a pattern that suggests a fracture" 06/29/11: MRI pelvis from [facility] "abnormal signal intensity and enhancement in the lef t sacrum, left ilium, right ilium, and L5 pedical and L5 vertebral body. The [facility] CT scan al so demonstrates and L1 slightly sclerotic lesion although it was not described. Metastatic d isease should be considered here." 08/06/2011 - CT Abd/pelvis: IMPRESSION: No acute abnormality. Specifically, no bowel obstru ction or abdominal pelvic abscess. Tiny left pleural effusion and trace left lower quadrant free fluid likely reflecting volume overload. Mildly thickened bladder with minimal perives ical stranding possibly reflecting cystitis. Correlate with urinalysis. [...] aureus Final ID Please refer to blood cultu re collected on 08/01/11 at 16:38 for susceptibility. [...] S Vancomycin S Penicillin R Final Report Interim History obtained 08/31/2011: Mr. Johnson presents today from home. He has been administering IV Ceftriaxone as directed with no missed doses. He reports no noticeable antibiotic side effects, specifically - no h eadache, no visual changes, no oral lesions, no new skin lesions or rashes, no cough, no SOB , no chest pains, no diarrhea, no abdominal pain, and no changes in urination. There have be en no fevers, chills, or night sweats. The patient reports no difficulties with the PICC hansa e. Mr. Johnson's back pain is much improved since his hospital discharge. He has been walking about and feeling stronger without worsening weakness, numbness, tingling, or shooting pain s. No changes in osteomy output or urinatry function. Current Medications: Current Outpatient Prescriptions Medication Sig acetaminophen 325 mg Oral Tablet Take 1-2 Tabs by mouth every four hours as needed (omi interiano). Do not exceed 4gm of Tylenol in 24 hours. amLODIPine 10 mg Oral Tablet Take 1 Tab by mouth once daily. Call Marly Greco MD for refill s. mybrytk-ygjmnahojsxxa-fovygtzf (EXCEDRIN) 250-250-65 mg Oral Tablet Take 1 Tab by mouth every four hours as needed. Do not take additional tylenol if you are using this medication . Total tylenol (acetaminophen) should not exceed 4gm per day. cefTRIAXone 1 gram Intravenous Recon Soln Inject 2 g into the vein (IV) every twenty-fo ur hours. Medication to be admixed per infusion pharmacy standard policy and/or procedure. cyclobenzaprine 5 mg Oral Tablet Take 1 Tab by mouth three times daily as needed for mu scle spasms. Do not use longer than 2-3 weeks. GLUC NASH/CHONDRO NASH A/VIT C/MN (GLUCOSAMINE CHONDROITIN MAXSTR ORAL) Take by mouth once daily. Miscellaneous Medical Supply (BLOOD PRESSURE CUFF) Misc multivitamin Oral Capsule Take 1 Cap by mouth once daily. [place]-3 Fatty Acids-Vitamin E (FISH OIL) 1,000 mg Oral Capsule Take by mouth. oxyCODONE, immediate release, 5 mg Oral Tablet Take 1 Tab by mouth every six hours as n eeded. Allergies: Review of patient's allergies indicates no known allergies. Physical Exam: Last Temp: 36.7 C (98 F) Pulse: 72 BP: 118/78 mmHg SpO2: 99 % Body mass index is 26.43 kg/(m^2). The patient was sitting comfortably at rest. There was no evidence of jaundice. There was no stigmata of infectious endocarditis HEENT was normal There was no lymphadenopathy There was no new skin or oral lesions. Entire spine was palpated. No areas of point tenderness, swelling or erythema noted. The PICC/groshong site was clean, without redness Cardiovascular examination revealed normal heart sounds with no added sounds and no murmurs Respiratory examination revealed inpiration= expiration R=L, and breath sounds vesicular wi th no added sounds Abdominal examination revealed a well-functioning colostomy. Neuro exam was grossly intact. 5/5 strength in all extremities. Diagnostic Tests: ESR (SED RATE) (no units) Date Value 08/22/2011 126 SEDIMENTATION RATE (mm/hr) Date Value 08/03/2011 117* C-REACTIVE PROTEIN (mg/dl) Date Value 08/22/2011 10 Lab Results Component Value Date WBC 4.7 08/29/2011 RBC 2.89 08/29/2011 HB 9.8* 08/29/2011 HCT 27.6 08/29/2011 MCV 95.7 08/29/2011 MCHC 36 08/29/2011 RDW 14 08/29/2011 PLT 218 08/29/2011 NEUTROPERC 78.3 08/29/2011 LYMPHPERC 9 08/29/2011 MONOPERC 7.3 08/29/2011 EOSPERC 4.4 08/29/2011 BASOPERC 1 08/29/2011 NEUTROPHILCO 6.2 08/01/2011 MONOCYTECO 0.4 08/01/2011 EOSCO 0.1 08/01/2011 BASOPHILCO 0.0 08/01/2011 Lab Results Component Value Date NA 135 08/29/2011 K 4.2 08/29/2011 CL 106 08/29/2011 BICARB 20 08/29/2011 BUN 22 08/29/2011 CR 1.22 08/29/2011 GLU 82 08/29/2011 CA 9.7 08/29/2011 AST 18 08/29/2011 ALT 12 08/29/2011 AP 124 08/29/2011 TBILI 0.6 08/22/2011 TP 6.7 08/29/2011 ALB 3.8 08/29/2011 DIRBILI 0.4 08/05/2011 Lab Results Component Value Date CK 27* 08/03/2011 Assessment: 1) Sacral spinal osteomyelitis. Recommendations/Plan: Mr. Johnson has now completed 3 weeks of IV antibiotics since his last positive blood cult ure. We believe that he most likely seeded his sacral spinal fracture resulting in osteomyel itis at that site, increased back pain, and bacteremia. He back pain has responded very well to IV antibiotic therapy, and is much improved since his hospital discharge. He is tolerati ng this well, without antibiotic side effects or PICC line concerns. I recommended that he c ontinue with current therapy for at least 3 more weeks. I explained that we often treat spon taneous spinal osteomyelitis for up to 12 weeks with IV antibiotics before switching to oral therapy. He was concerned that planned takedown of his ileostomy (end of October 2011) may ne ed to be delayed, but I explained that this is not necessarily so - and we will just have to see how things progress. Because of his underlying cancer history, it may be hard to interp ret the trend of his inflammatory markers. At this point ESR and CRP remain quite elevated. We discussed bone infection. I explained how bacteria can make a slime and go to sleep unde r it. They also like to hide on any bone that is devitalized or on prosthetic material. I ex plained that initially we kill the bulk of bacteria, but antibiotics are needed for a long t wicho so that we can kill any remaining bacteria when they wake up. I explained that there is no set duration of antibiotic treatment for bone infection. I explained that we usually sta rt with 6 weeks, but the duration will be customized to each patient according to their clin ical progress. I reviewed the side-effects of Ceftriaxone with the patient. I reviewed the fact that Cef triaxone can occasionally upset the gall bladder, so to let us know if RUQ abdominal pain de velops at any time while taking this antibiotic. I reviewed the fact that ceftriaxone can ca use renal failure. The symptoms of renal failure are decreased urine output, nausea, or vomi ting. I reviewed the side effect of leukopenia with the patient, and that this may happen l ater in the course of the antibiotic. I reviewed the fact that people may develop an allerg y to antibiotics at any time, even 5 weeks into therapy. This may manifest as a rash or poly l failure, and it is therefore important to report any rashes. I reviewed the possible complications PICC lines with the patient including infection and b lood clots. I reviewed the possible sepsis complications and their symptoms. In particular, fevers, chills or sweats, redness around the PICC site, discomfort in the arm, and flu like symptoms. I discussed that arm or hand swelling can indicate development of a blood clot. I warned that any sign of line infection or blood clot needs urgent attention. I asked the horacio bernard to report any of these symptoms immediately, and if unable to obtain the IV company or OPAT, then to present to the ED. The patient verbalized understanding. It is recommended that Mr. Johnson follow up in Infectious Diseases Clinic in 3 weeks. I spent a total of 25 minutes face to face with the patient and over 50% was time spent in counseling in which we discussed infection, antibiotics, duration of therapy, lab results, a nd follow-up planning. Rona Kulkarni PA-C [facility] Department of Infectious Disease Outpatient IV Antibiotic Therapy Clinic (OPAT) Pager ID: [phone] [facility] [address] Mail Code [address] [place] [address] documented in th is encounter Plan of Treatment Not on filedocumented as of this encounter Procedures + +--------+ + + + | Procedure Name | Priori | Date/Time | Associated Diagnosis | Comments | | | ty | | | | + +--------+ + + + | LAB REPORTS | | 08/31/2011 | | Results for this | | | | 12:00 AM | | procedure are in the | | | | PST | | results section. | + +--------+ + + + | LAB REPORTS | | 08/31/2011 | | Results for this | | | | 12:00 AM | | procedure are in the | | | | PST | | results section. | + +--------+ + + + | LAB REPORTS | | 08/29/2011 | | Results for this | | | | 12:00 AM | | procedure are in the | | | | PST | | results section. | + +--------+ + + + | LAB REPORTS | | 08/22/2011 | | Results for this | | | | 12:00 AM | | procedure are in the | | | | PST | | results section. | + +--------+ + + + documented in this encounter Results LAB REPORTS (08/31/2011 12:00 AM PST) + + + | Narrative | Performed At | + + + | | | + + + + + | Transcriptions | + + | Other, Faculty - 09/13/2011 11:17 AM PST | + + LAB REPORTS (08/31/2011 12:00 AM PST) + + + | Narrative | Performed At | + + + | | | + + + + + | Transcriptions | + + | Cy Toribio - 09/13/2011 10:45 AM PST | + + LAB REPORTS (08/29/2011 12:00 AM PST) + + + | Narrative | Performed At | + + + | | | + + + + + | Transcriptions | + + | Cy Toribio - 09/13/2011 11:18 AM PST | + + LAB REPORTS (08/22/2011 12:00 AM PST) + + + | Narrative | Performed At | + + + | | | + + + + + | Transcriptions | + + | Cy Toribio - 09/13/2011 11:17 AM PST | + + documented in this encounter Visit Diagnoses + + | Diagnosis | + + | MSSA (methicillin susceptible Staphylococcus aureus) septicemia (HCC) Methicillin | | susceptible staphylococcus aureus septicemia | + + | Encounter for long-term (current) use of antibiotics | + + documented in this encounter
--- OUTSIDE RECORDS SUMMARY | ~2019-11-22 | XMS | Encounter Summary ---
Demographics + + + | Address | [address] | | | [place] [address] | + + + | Home Phone [...] Team Providers + +------+ + | Care Outdoor Studies Professor Name | Role | Phone | [...] | Changes | NEUROSURGERY [address] | Foreign Language Professor | | | | | [address] | | | | | | [place] | | | | | | [address] | | | | | | [phone] | | | +--------+ + + + [...]
--- OUTSIDE RECORDS SUMMARY | ~2019-11-22 | XMS | Encounter Summary ---
Demographics + + + | Address | [address] | | | [place] [address] | + + + | Home Phone [...] + | Ricarda Johnson | ECON | [address] | | | | | [place] | | | | | [address] | | + + + + + Care Team Providers + +------+ + | Care Personal Injury Litigation Paralegal Name | Role | Phone | + [...] (HCC) | [address] | [address] [facility] | | | | | Sacral | [address] | [facility], | | | | | lesion | [place], [place] | 10th Floor | | | | | Procedures | | [place], [place] | | | | | CT CHEST, | Phone: | [phone] | | | | | ABDOMEN & | [phone] | Phone: | | | | | PELVIS W IV | Fax: | [phone] | | | | | CONTRAST | [phone] | Fax: | | | | | | | [phone] | +--------+--------+ + + + + Reason [...] (HCC) | [address] | [address] [facility] | | | | | Sacral | [address] | [facility], | | | | | lesion | [place], [place] | 10th Floor | | | | | Procedures | | [place], [place] | | | | | CT CHEST, | Phone: | [phone] | | | | | ABDOMEN & | [phone] | Phone: | | | | | PELVIS W IV | Fax: | [phone] | | | | | CONTRAST | [phone] | Fax: | | | | | | | [phone] | +--------+--------+ + + + + Encounter Details +--------+ + + + + | Date | Type | Department | Care Team | Description | +--------+ + + + + | 06/20/ | Hospital | Radiation Medicine | | | | 2010 | Encounter | at [facility] [address] | | | | | [address] | | | | | | [address] | | | | | | [place], [place] | | | | | | [address] | | | | | | [phone] | | | +--------+ + + + [...] hypoattenuating | | | | | | [id number] lesion | | | | | | [...] | | + +---------+ + + | [facility] DEPARTMENT OF | | | | [...] [place] | [address] | [place], [place] | | | ABDIAZIZ PEREZ OF CARE | [facility] | [address] | | | TESTS | | | [...]
--- OUTSIDE RECORDS SUMMARY | ~2019-11-22 | XMS | Encounter Summary ---
Demographics + + + | Address | [address] | | | [place] [address] | + + + | Home Phone | | + + + | Preferred Language | Unknown | + + + | Marital Status | | + + + | Episcopal Affiliation | 1077 | + + + | Race | Unknown | + + + | Ethnic Group | Unknown | + + + Author + + + | Author | [facility] | | | and [place] | + + + | Organization | [facility] | | | [...] Team Providers + +------+ + | Care Pole Sander Operator Name | Role | Phone | + +------+ + | Hay Greco MD | PCP | | + +------+ + Encounter Details +--------+ + + + + | Date | Type | Department | Care Team | Description | +--------+ + + + + | 04/24/ | Imaging | [facility] | Provider, | | | 2017 | Exam | [facility] | MD [address] | | | | | IMAGING [address] | [address] | | | | | [address] | [place] [address] | | | | | [place] [address] | | | | | | [phone] | | | +--------+ + + + [...] + +--------+ + + + | CT LUMBAR SPINE WO | Routin | 04/09/2017 | | Results for this | | CONTRAST | e | 12:40 PM | | procedure are in the | | | | PDT | | results section. | + +--------+ + + + documented in this encounter Results CT Lumbar Spine wo Contrast (04/09/2017 12:40 PM PDT) + + | Specimen | + + | | + + + + + | Narrative | Performed At | + + + | External films | [facility] | | for comparison only - no result from [facility]. | | + + + + +---------+ + + | Performing | Address | City/State/Zipcode | Phone Number | | Organization | | | | + +---------+ + + | [facility] | | | | + +---------+ + + documented in this encounter Visit Diagnoses Not on filedocumented in this encounter"
--- OUTSIDE RECORDS SUMMARY | ~2019-11-22 | XMS | Encounter Summary ---
Demographics + + + | Address | [address] | | | [place] [address] | + + + | Home Phone [...] Providers + +------+ + | Care Manager Mail Name | Role | Phone | + [...] | | DE OFFICE | [address] | [place], [place] | | | | | CONSULTATION | Brandie | [address] | | | | | NEW/ESTAB | [address] | Phone: | | | | | PATIENT 60 | [place], | [phone] | | | | | MIN History | [place] | Fax: | | | | | of L4-L5 | [address] | [phone] | | | | | vertebral | Phone: | | | | | | fusion 2009 | [phone] | | | | | | | Fax: | | | | | | | [phone] | | +--------+--------+ + + + + Encounter Details +--------+---------+ + + + | Date | Type | Department | Care Team | Description | +--------+---------+ + + + | 06/09/ | [facility] | [facility] [place] | Kemal Damian MD | DDD (degenerative | | 2012 | Visit | NEUROSURGERY [address] | [address] | disc disease), | | | | [address] | [place] [address] | lumbar (Primary Dx); | | | | [place] | [phone] | Spondylolisthesis | | | | [address] | | of lumbar region; | | | | [phone] | | Facet arthropathy, | | | [...] he original. Kemal Damian M.D., [place], [address], [address] [place], [place] [address] FAX: NEUROSURGERY HISTORY AND PHYSICAL EXAMINATION CHIEF [...] Current Outpatient Prescriptions Medication Sig Dispense Refill Vxyzmgyrv-Tpxayshlvmv-Aye D (GLUCOSAMINE COMPLEX PO) Take 2 tablets [...] no apparent deficits with short or terminal carman memory. CRANIAL NERVES: II: Acuity is intact. [...] Intrinsics 5 5 Ulnar Intrinsics 5 5 Dye Colorist Dyer Strength 5 5 Hip Flexion 5 5 [...]
--- OUTSIDE RECORDS SUMMARY | ~2019-11-22 | XMS | Encounter Summary ---
Demographics + + + | Address | [address] | | | [place] [address] | + + + | Home Phone [...] Team Providers + +------+ + | Care Carbon Sequestration Plant Operator Name | Role | Phone | + +------+ + PCP | Unavailable | + +------+ + Encounter Details +--------+ + + + + | Date | Type | Department | Care Team | Description | +--------+ + + + + | 04/06/ | Hospital | [facility] | | | | 2009 - | Encounter | [facility] | | | | | | CENTER [address] | | | | 04/13/ | | [place] | | | | 2009 | | [address] | | | | | | [phone] | | | +--------+ + + + [...]
--- OUTSIDE RECORDS SUMMARY | ~2019-11-22 | XMS | Encounter Summary ---
Demographics + + + | Address | [address] | | | [place] [address] | + + + | Home Phone | | + + + | Preferred Language | Unknown | + + + | Marital Status | | + + + | Yazidism Affiliation | PRE | + + + [...] + | Ricarda Johnson | ECON | [address] | | | | | [place] | | | | | [address] | | + + + + + Care Team Providers + +------+ + | Care Sail Finisher Machine Name | Role | Phone | + +------+ + | Hay Greco MD | PCP | | + +------+ + Reason for Visit Diagnostic Testing (Routine) +--------+--------+ + + + + | Status | Reason | Specialty | Diagnoses / | Referred By | Referred To | | | | | Procedures | Contact | Contact | +--------+--------+ + + + + | Closed | | Radiology | Diagnoses | Berta | Rad [facility] | | | | | Malignant | Edgar Zuñiga MD | [address] | | | | | neoplasm of | [address] | [place] | | | | | rectum (HCC) | [address] | Ted | | | | | Sacral | [address] | [address], | | | | | lesion | [place], [place] | floor | | | | | Procedures | [address] | [place], [place] | | | | | [address] SKULL | Phone: | [address] | | | | | BASE TO | [phone] | Phone: | | | | | MID-THIGHS | Fax: | [phone] | | | | | | [phone] | Fax: | | | | | | | [phone] | +--------+--------+ + + + + Encounter Details +--------+ + + + + | Date | Type | Department | Care Team | Description | +--------+ + + + + | 06/20/ | Hospital | Radiation Medicine | | Canceled (Practice | | 2010 | Encounter | at [facility] [address] | | [place]) | | | | [place] [address] | | | | | | [place], [address] floor | | | | | | [place], [place] | | | | | | [address] | | | | | | [phone] | | | +--------+ + + + [...] + + | ORDERS OTHER | | 08/06/2011 | | Results for this | | | | 1:25 PM | | procedure are in the | | | | PST | | results section. | + +--------+ + + + | PET CT SKULL BASE TO | Routin | 06/21/2011 | Malignant neoplasm | Results for this | | MID-THIGHS | e | 8:55 AM | of rectum (HCC) | procedure are in the | | | | PST | Sacral lesion | results section. | + +--------+ + + + documented in this encounter Results ORDERS OTHER (08/06/2011 1:25 PM PST) + + + | Narrative | Performed At | + + + | | | + + + + + | Transcriptions | + + | Cy Toribio - 08/07/2011 12:49 PM PST | + + PET SKULL BASE TO MID-THIGHS (06/21/2011 8:55 [...] | | | | | on a [id number] | | | | | | machine [...] | | + +---------+ + + | [facility] DEPARTMENT OF | | | | | RADIOLOGY | | | | + +---------+ + + documented in this encounter Visit Diagnoses + + | Diagnosis | + + | Malignant neoplasm of rectum (HCC) Malignant neoplasm of rectum | + + | Sacral lesion Disorders of sacrum | + + documented in this encounter"
--- OUTSIDE RECORDS SUMMARY | ~2019-11-22 | XMS | Encounter Summary ---
Demographics + + + | Address | [address] | | | [place] [address] | + + + | Home Phone [...] Team Providers + +------+ + | Care Brush Operator Name | Role | Phone | [...] | | [address] | [address] [place], | | | | | [place], [place] | [place] [address] | | | | | [address] | [phone] | | | | | [phone] | | | +--------+ + + + [...] MD EDWINA has created this entry using [employer] | | | Recognition software and [employer] macros. The entry has been | | [...] has | | created this entry using [employer] VoiceRecognition software and [employer] macros. | | The entry has been reviewed andthere may still exist sound alike word errors. | |glenoid. The ac joint is narrowed. Type II acromion. Visualized lung | |gill are clear.. | | | |Impression: Endstage left glenohumeral osteoarthritis.. | | | | | |BARBARA BLAND MD | |04/27/2017 | | | |BARBARA BLAND MD has created this entry using [employer] | |Recognition software and [employer] macros. The entry has been reviewed and | |there may still exist sound alike word errors. | | | + + documented in this encounter Visit Diagnoses Not on filedocumented in this encounter"
--- OUTSIDE RECORDS SUMMARY | ~2019-11-22 | XMS | Encounter Summary ---
Demographics + + + | Address | [address] | | | [place] [address] | + + + | Home Phone | | + + + | Preferred Language | Unknown | + + + | Marital Status | | + + + | Baptism Affiliation | 1077 | + + + | Race | Unknown | + + + | Ethnic Group | Unknown | + + + Author + + + | Author | [facility] | | | and [place] | + + + | Organization | [facility] | | | and [...] Team Providers + +------+ + | Care Asset Protection Manager Name | Role | Phone | [...] | | | | back | | [address] Phone: | | | | | syndrome | | [phone] | | | | | Procedures | | Fax: | | | | | [place] SURG | | [phone] | | | | | IMPLNT | [...] | | | | | [address] | [address] [place] | | | | | [place], [place] | [place] [address] | | | | | [address] | | | | | | [phone] | | | +--------+ + + + [...] +----+---+ + + | | 0 | [place] | | | | 8 | 43-degrees [...] +----+---+ + + | | 0 | [place] off | | | | 9 | [...] 06/18/19 1121 by | | eral | [id number]-[id number] catheter system; | Anahi Lara RN | [...] | | | | | | Starting [facility] 06/18/19 at 0745, For | | | [...] 8:12 | | | | | Starting [facility] 06/18/19 at 0812, | | AM PST [...]
--- OUTSIDE RECORDS SUMMARY | ~2019-11-22 | XMS | Encounter Summary ---
Demographics + + + | Address | [address] | | | [place] [address] | + + + | Home Phone | | + + + | Preferred Language | Unknown | + + + | Marital Status | | + + + | Zoroastrianism Affiliation | 1077 | + + + | Race | Unknown | + + + | Ethnic Group | Unknown | + + + Author + + + | Author | [facility] | | | and [place] | + + + | Organization | [facility] | | [...] Team Providers + +------+ + | Care Assembler Tester Name | Role | Phone | [...] | | | | | [address] | [address] [place] | | | | | [place], [place] | [place] [address] | | | | | [address] | | | | | | | [...] +----+---+ + + | | 0 | [place] | | | | 8 | 43-degrees | | | | 2 | | | | | 6 | | | +----+---+ + + | | 1 | [place] off | | | | 1 | [...] | ONLY] | | Flavio Correia, | Denise Gutierrez, | | | | RN | [...] | | mL/hr | | | Starting [facility] 10/22/13 at 0836, | | AM PDT [...]
--- OUTSIDE RECORDS SUMMARY | ~2019-11-22 | XMS | Encounter Summary ---
Demographics + + + | Address | [address] | | | [place] [address] | + + + | Home Phone | | + + + | Preferred Language | Unknown | + + + | Marital Status | | + + + | Rastafarian Affiliation | 1077 | + + + [...] Team Providers + +------+ + | Care Contact Lens Blocker And Cutter Name | Role | Phone | + +------+ + | Hay Greco MD | PCP | | + +------+ + Encounter Details +--------+ + + + + | Date | Type | Department | Care Team | Description | +--------+ + + + + | 10/14/ | Hospital | [facility] | Kemal Damian MD | | | 2013 | Encounter | [facility] | [address] | | | | | [address] | [place] [address] | | | | | [place] | [phone] | | | | | [address] | | | | | | [phone] | | | +--------+ + + + [...]
--- OUTSIDE RECORDS SUMMARY | ~2019-11-22 | XMS | Clinical Summary ---
Demographics + + + | Address | [address] | | | [place] [address] | + + + | Home Phone | | + + + | Preferred Language | Unknown | + + + | Marital Status | | + + + | Bahai Affiliation | 1077 | + + + | Race | Unknown | + + + | Ethnic Group | Unknown | + + + Author + + + | Author | [facility] | | | and [place] | + + + | Organization | [facility] | | | [...] Team Providers + +------+ + | Care Spanish Lecturer Name | Role | Phone | + +------+ + | Aldo Frank DO | PCP | | + +------+ + Allergies + + + + + + | Active Allergy | Reactions | Severity | Noted | Comments | | | | | Date | | + + + + + + | Chlorhexidine | Rash, Other (See | Medium | 10/22/19 | Redness | | Gluconate | Comments) | | 14 | | + + + + + + | Lovastatin | Other (See Comments) | Medium | 02/07/20 | Myalgias | | | | | 17 | | + + + + + + | Povidone Iodine | Hives, Rash | Medium | 12/21/19 | "skin blackwell" | | | | | 13 | | + + + + + + | Ezetimibe | Other (See Comments) | Medium | 02/07/20 | myalgia | | | | | 17 | | + + + + + + Medications + + + +---------+------+------+-------+ | Medication | Sig | Dispensed | Refills | Star | End | Statu | | | | | | t | Date | s | | | | | | Date | | | + + + +---------+------+------+-------+ | acetaminophen | Take 650 mg by mouth | | 0 | | | Activ | | (TYLENOL) 325 mg | 3 times daily. Prn | | | | | e | | tablet | pain | | | | | | + + + +---------+------+------+-------+ | amLODIPine | | | 0 | 03/2 | | Activ | | (NORVASC) 5 mg | | | | 1/20 | | e | | tabletIndications: | | | | 18 | | | | S/P lumbar fusion, [...] | | + + + +---------+------+------+-------+ | fish oil 1,000 mg | Take 1,000 mg by | | 0 | | | Activ | | capsule | mouth 3 times daily. | | | | | e | + + + +---------+------+------+-------+ | Red Yeast Rice 600 | Take 1,200 mg by | | 0 | | | Activ | | MG CAPS | mouth Daily. | | | | | e | + + + +---------+------+------+-------+ | potassium chloride | Take 10 mEq by mouth | | 0 | 11/1 | | Activ | | (KLOR-CON) 10 mEq | 2 times daily (with | | | 4/20 | | e | | CR tablet | breakfast & | | | 19 | | | | | dinner). | | | | | | + + + +---------+------+------+-------+ | | Take 1-2 tablets by | 60 | 0 | 12/0 | | Activ | | HYDROcodone-acetamin | mouth every 4 hours | tablet | | 5/20 | | e | | ophen (NORCO) | as needed for Pain. | | | 19 | | | | 7.5-325 mg per | | | | | | | | tablet | | | | | | | + + + +---------+------+------+-------+ | | Take 1 tablet by | 20 | 0 | 05/0 | 05/1 | Activ | | amoxicillin-clavulan | mouth 2 times daily | tablet | | 03/03 | 03/03 | e | | ate (AUGMENTIN) | for 10 days. | | | 20 | 20 | | | 875-125 mg per | | | | | | | | tablet | | | | | | | + + + +---------+------+------+-------+ Active Problems + + + | Problem | Noted Date | + + + | Lumbar radiculopathy | 05/21/2019 | + + + + + | Overview: Added automatically from request for surgery | | [id number] | + + + + + | S/P spinal fusion | 05/21/2019 | + + + + + | Overview: Added automatically from request for surgery | | [id number] | + + + + + | Failed back syndrome | 05/21/2019 | + + + + + | Overview: Added automatically from request for surgery | | [id number] | + + + + + | S/P cervical spinal fusion | 05/12/2019 | + + + | Thoracic spondylosis | 05/12/2019 | + + + | Failed back surgical syndrome | 04/02/2019 | + + + | Chronic bilateral low back pain without sciatica | 09/12/2018 | + + + | Spondylosis of lumbar region without myelopathy or radiculopathy | 09/12/2018 | + + + | Status post reverse total arthroplasty of left shoulder | 07/21/2018 | + + + | Lumbar spondylosis | 04/03/2018 | + + + | Chronic renal insufficiency, stage 3 (moderate) | 06/19/2017 | + + + + + | Overview: 1832-4024: GFR 40's - 50's (limited data) | + + + + + | Lumbar spinal stenosis - above fusion L1/L2 | 03/07/2017 | + + + | S/P lumbar fusion | 11/18/2013 | + + + | DDD (degenerative disc disease), lumbar | 06/09/2013 | + + + | Spondylolisthesis of lumbar region | 06/09/2013 | + + + | Facet arthropathy of spine | 06/09/2013 | + + + | Lumbar radicular pain | 06/09/2013 | + + + | Rectal cancer | | + + + + + | Overview: chemo, radiation, [id number]- Ileostomy Or | | [id number] - Rectal adenocarcinoma; Ileostomy takedown | | reanastomis rectum/colon | + + + +---+ | High cholesterol | | + +---+ | Osteoarthritis | | + +---+ | 1st degree AV block | | + +---+ + + | Overview: Sinus rhythm with 1st degree AV block | + + + +---+ | H/O TKA Total knee arthroplasty, bilateral | | + +---+ Resolved Problems + + + + | Problem | Noted | Resolved | | | Date | Date | + + + + | S/P spinal fusion | 05/21/20 | | | | 19 | 9 | + + + + + + | Overview: Added automatically from request for surgery | | [id number] | + + + + + + | Failed back syndrome | 05/21/20 | | | | 19 | 9 | + + + + + + | Overview: Added automatically from request for surgery | | [id number] | + + + + + + | Spinal stenosis of lumbar region with neurogenic claudication | 09/23/19 | | | | 14 | 4 | + + + + Encounters +--------+ + + + + | Date | Type | Specialty | Care Team | Description | +--------+ + + + + | 11/19/ | Emergency | Emergency Medicine | Alida Daryl | Cellulitis of hand | | 2019 - | | | DO Trent | (Primary Dx) | | | | | | | | 11/20/ | | | | | | 2019 | | | | | +--------+ + + + + from Last 3 Months Family History + + +--------+ + | Medical History | Relation | Name | Comments | + + +--------+ + | Atrial fibrillation | Brother | | | + + +--------+ + | Heart disease | Brother | | ARTERY BLOCKAGE | + + +--------+ + | Heart surgery | Brother | | | + + +--------+ + | Atrial fibrillation | Brother | | | + + +--------+ + | Heart surgery | Brother | | | + + +--------+ + | Hypertension | Brother | | | + + +--------+ + | No known problems | Daughter | LINDSEY | | | | | LAWS | | + + +--------+ + | Heart attack | Father | | AMI | + + +--------+ + | Heart disease | Father | | | + + +--------+ + | No known problems | Maternal | | | | | Grandfath | | | | | er | | | + + +--------+ + | No known problems | Maternal | | | | | Grandmoth | | | | | er | | | + + +--------+ + | Heart disease | Mother | | | + + +--------+ + | Heart failure | Mother | | | + + +--------+ + | Cancer | Other | | Uncle & 2 cousins | + + +--------+ + | No known problems | Paternal | | | | | Grandfath | | | | | er | | | + + +--------+ + | No known problems | Paternal | | | | | Grandmoth | | | | | er | | | + + +--------+ + + +--------+ + + | Relation | Name | Status | Comments | + +--------+ + + | Brother | | Alive | | + +--------+ + + | Brother | | Alive | | + +--------+ + + | Daughter | LINDSEY | Alive | | | | LAWS | | | + +--------+ + + | Father | | | AMI | | | | (Age | | | | | 63) | | + +--------+ + + | Maternal Grandfather | | | | + +--------+ + + | Maternal Grandmother | | | | + +--------+ + + | Mother | | | CHF | | | | (Age | | | | | 57) | | + +--------+ + + | Other | | | | + +--------+ + + | Paternal Grandfather | | | | + +--------+ + + | Paternal Grandmother | | | | + +--------+ + + Social History + +-------+ +--------+------+ [...] | | | | | Pneumococcal 65+ (1 | 9 | | | | of 2 - PCV13) | | | | + + + + + | Adult Annual | | | | | Wellness Visit | 5 | | | + + + + + | Vaccine: Influenza | | | | | (Season Ended) | 0 | | | + + + + + | Colorectal Cancer | | 04/14/2014 | | | Screening | 4 | | | | (Colonoscopy) | | | | + + + + + | Vaccine: | | 04/07/2017 | | | Dtap/Tdap/Td (2 - | 7 | | | | Td) | | | | + + + + + Implants + +--------+--------+ +--------+--------+--------+ | Implanted | Type | Area | Manufacture | Device | Shelf | Model | | | | | r | | Expira | / | | | | | | Identi | tion | Serial | | | | | | fier | Date | / Lot | + +--------+--------+ +--------+--------+--------+ | Impl Spn Beaver Decade 5.5x45mm | Beaver | | NUVASIVE - | | | [id number] | | - SnaImplanted: Qty: 2 on | | | NVSV | | | 5 /NA | | 06/19/2017 by Kemal Damian, | | | | | | /NA | | MD at [facility] | | | | | | | | [facility] | | | | | | | + +--------+--------+ +--------+--------+--------+ | Impl Spn Beaver Decade 5.0x40mm | Beaver | | NUVASIVE - | | | [id number] | | - SnaImplanted: Qty: 2 on | | | NVSV | | | 0 /NA | | 06/19/2017 by Kemal Damian, | | | | | | /NA | | at [facility] | | | | | | | | [facility] | | | | | | | + +--------+--------+ +--------+--------+--------+ | Putty Bone Db Grftn 0.5cc - | Bone | | [employer] - | | 04/07/ | [id number] | | [id number]: Qty: 1 | | | MEDT | | 2020 | | | on 06/19/2017 by Kemal Damian | | | | | | /[id number] | | MD Gonzales at [facility] | | | | | | 5-066 | | [facility] | | | | | | / | + +--------+--------+ +--------+--------+--------+ | Imp Spn Intbdy Xlw | Generi | | NUVASIVE - | | | [id number] | | [id number] - SnaImplanted: | c | | NVSV | | | 5 /NA | | Qty: 1 on 06/19/2017 by Rickie, | | | | | | /NA | | Kemal Rolon MD at [facility] | | | | | | | | [facility] | | | | | | | + +--------+--------+ +--------+--------+--------+ | Impl Spn Plt Decade 4hl [id number] | Generi | | NUVASIVE - | | | [id number] | | - SnaImplanted: Qty: 1 on | c | | NVSV | | | 2 /NA | | 06/19/2017 by Kemal Damian, | | | | | | /NA | | at [facility] | | | | | | | | [facility] | | | | | | | + +--------+--------+ +--------+--------+--------+ | Graft Infuse Bone Kit Xs - | Graft | | [employer] - | | 07/14/ | [id number] | | SnaImplanted: Qty: 1 on | | | MEDT | | 2018 | 0 /NA | | 06/19/2017 by Kemal Damian, | | | | | | /[id number] | | at [facility] | | | | | | 29AAM | | [facility] | | | | | | | + +--------+--------+ +--------+--------+--------+ | Putty Rossy 5cc Dbm - | Graft | | [employer] - | | 12/25/ | [id number] | | [id number]: Qty: 1 | | | MEDT | | 2020 | [id number] | | on 06/19/2017 by Kemal Damian | | | | | | [id number] | | MD Gonzales at [facility] | | | | | | / | | [facility] | | | | | | | + +--------+--------+ +--------+--------+--------+ | Lead #1 And | Lead | | NEVRO BLANKA | | 06/11/ | [id number] | | 2-03/25/2019Implanted: Qty: 2 | | | - NVRO | | 2020 | 058-50 | | on 03/25/2019 by Oneil, | | | | | | B / | | Pj Singer MD | | | | | | /[id number] | | | | | | | | 764 | + +--------+--------+ +--------+--------+--------+ | Kate Tovar 10 Cc - | | Air Analysis Engineering Technician | KENDAL - | | 06/15/ | [id number] | | [id number]: Qty: 1 | | ior: | OSTT | | 2015 | | | on 10/22/2013 by Kemal Damian | | Spine | | | | /[id number] | | MD [place] at [facility] | | Lumbar | | | | 9-183 | | [facility] | | | | | | / | + +--------+--------+ +--------+--------+--------+ | Bone Matrix Osteocel Plus 5cc | | Air Analysis Engineering Technician | NUVASIVE - | | 04/17/ | [id number] | | - [id number]: Qty: | | ior: | NVSV | | 2018 | 5 | | 1 on 10/22/2013 by Kemal Damian | | Spine | | | | /[id number] | | MD Gonzales at [facility] | | Lumbar | | | | [id number] / | | [facility] | | | | | | | + +--------+--------+ +--------+--------+--------+ | Cage Peek Lo X35mm 5 Coroent | | N/A: | NUVASIVE - | | | [id number] | | - [id number]: Qty: 2 | | Spine | NVSV | | | 2 / / | | on 10/22/2013 by Kemal Damian | | Lumbar | | | | | | MD Gonzales at [facility] | | | | | | | | [facility] | | | | | | | + +--------+--------+ +--------+--------+--------+ | Nuvasive Screw 7.5 X | | N/A: | | | | [id number] | | 55Implanted: Qty: 4 on | | Spine | | | | 5A / / | | 10/22/2013 by Kemal Damian, | | Lumbar | | | | | | MD at [facility] | | | | | | | | [facility] | | | | | | | + +--------+--------+ +--------+--------+--------+ | Derick Ti Prebent Lordtc 70mm - | | N/A: | NUVASIVE - | | | [id number] | | [id number]: Qty: 2 on | | Spine | NVSV | | | 0 / / | | 10/22/2013 by Kemal Damian, | | Lumbar | | | | | | MD at [facility] | | | | | | | | [facility] | | | | | | | + +--------+--------+ +--------+--------+--------+ | Screw Polyax Precept 6.5x55 - | | | NUVASIVE - | | | [id number] | | [id number]: Qty: 4 | | | NVSV | | | 5A / / | | on 10/22/2013 at [facility] | | | | | | | | [facility] | | | | | | | | CENTER | | | | | | | + +--------+--------+ +--------+--------+--------+ | Screw Set - | | | NUVASIVE - | | | [id number] | | [id number]: Qty: 6 on | | | NVSV | | | 0 / / | | 10/22/2013 at [facility] | | | | | | | | [facility] | | | | | | | + +--------+--------+ +--------+--------+--------+ | Anchr Kit Lead [id number] Nevro - | | Left: | NEVRO BLANKA | | 12/15/ | [id number] | | Sn/AImplanted: Qty: 1 on | | Spine | - NVRO | | 2021 | 00 | | 06/18/2019 by Kali, | | Thorac | | | | /N/A | | Geraldo Dougherty MD at [facility] | | ic | | | | /[id number] | | [facility] | | | | | | 74 | | CENTER | | | | | | | + +--------+--------+ +--------+--------+--------+ | Ipg Kit Scs Nevro - | | Left: | NEVRO BLANKA | | 02/10/ | [id number] | | [id number]: Qty: 1 on | | Spine | - NVRO | | 2020 | 00 | | 06/18/2019 by Kali, | | Thorac | | | | /[id number] | | Geraldo Dougherty MD at [facility] | | ic | | | | | | [facility] | | | | | | /[id number] | | CENTER | | | | | | 20 | + +--------+--------+ +--------+--------+--------+ | Lead Kit Scs Nevro 50cm - | | Left: | NEVRO BLANKA | | 03/17/ | [id number] | | Sn/AImplanted: Qty: 1 on | | Spine | - NVRO | | 2021 | 58-50B | | 06/18/2019 by Kali, | | Thorac | | | | /N/A | | Geraldo Dougherty MD at [facility] | | ic | | | | /[id number] | | [facility] | | | | | | 004 | | CENTER | | | | | | | + +--------+--------+ +--------+--------+--------+ | Lead Kit Scs Nevro 50cm - | | Left: | NEVRO BLANKA | | 03/17/ | [id number] | | Sn/AImplanted: Qty: 1 on | | Spine | - NVRO | | 2021 | 58-50B | | 06/18/2019 by Kali, | | Thorac | | | | /N/A | | Geraldo Dougherty MD at [facility] | | ic | | | | /[id number] | | [facility] | | | | | | 004 | | [place] | | | | | | | + +--------+--------+ +--------+--------+--------+ Procedures + +--------+ + + + | [...] K?MRN: | | | | | | [id number] | | | [id number] | | | riteri | | | [...] | | | St. | | | [place] | | | y | | | Hospit | | | al | | | Patien | | | t is | | | curren | | | tly | | | establ | | | ished | | | with | | | St | | | [place] | | | y | | | [...] St | | | | | | [place] | | | y | | | [...] | | | DO | | | Foster Care Social Worker | | | al | | | [...] [email or web address] | | | m | +---+--------+ from Last 3 Months Results Sedimentation rate, automated (11/20/2019 10:30 PM PDT) [...] + + + + + | [facility] | [address] | [place], [place] | [phone] | | [facility] | | [address] | | + + + + + [...] + + | [facility] | [address] | [place] | [phone] | | [facility] | | [address] | | + + + + + [...] + + + + + | [facility] | [address] | [place] | [phone] | | [facility]ITAL [facility] | | [address] | | + + + + + Uric Acid (11/20/2019 10:30 PM PDT) + [...] + + + + + | [facility] | [address] | [place] | [phone] | | [facility] | | [address] | | + + + + + [...] | mL/min/1.73m2 | [facility] | | | [place] | RATE,ESTIMATED | | [facility] | | | | mL/min/1.81d3Iggh than | | LABORATORY | | | [...] + + | [facility] | [address] | [place] | [phone] | | [facility]ITAL [facility] | | [address] | | + + + + + [...] | | | + +---------+ + + from Last 3 Months Insurance + +--------+ +--------+ +---------+--------+ | Payer | Benefi | Subscriber | Effect | Phone | Address | Type | | | t Plan | ID | franko | | | | | | / | | Dates | | | | | | Group | | | | | | + +--------+ +--------+ +---------+--------+ | MEDICARE | MEDICA | [id number] | | [phone] | | Medica | | | RE | | 009-Pr | 5 | | re | | | PART A | | esent | | | | | | AND B | | | | | | + +--------+ +--------+ +---------+--------+ | MEDICARE | MEDICA | [id number] | | [phone] | | Medica | | | RE | | 009-Pr | 5 | | re | | | PART A | | esent | | | | | | AND B | | | | | | + +--------+ +--------+ +---------+--------+ | BCBS | BCBS | [id number] | 07/15/19 | | | PPO | | | FEDERA | | 19-Pre | | | | | | L FEP | | sent | | | | + +--------+ +--------+ +---------+--------+ | BCBS | BCBS | [id number] | 07/15/19 | | | PPO | | | FEDERA | | 19-Pre | | | | | | L FEP | | sent | | | | + +--------+ +--------+ +---------+--------+ + +--------+ +--------+ + + | Guarantor Name | Accoun | Relation to | Date | Phone | Billing Address | | | t Type | Patient | of | | | | | | | | | | + +--------+ +--------+ + + | Tylor Johnson | Person | Self | [birth year] | [address] | | | al/[place] | | 1945 | [phone] | [address] [place] | | | [place] | | | [address] (Home) | [address] | + +--------+ +--------+ + + | Tylor Johnson | Person | Self | [birth year] | | [address] | | | al/Fam | | 1945 | [phone] | [address] [place] | | | aye | | | 6 ([place]) | [address] | + +--------+ +--------+ + + Advance Directives + + + + + | Type | Date Recorded | Patient | Explanation | | | | 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
--- OUTSIDE RECORDS SUMMARY | ~2019-11-22 | XMS | Encounter Summary ---
Demographics + + + | Address | [address] | | | [place] [address] | + + + | Home Phone [...] Team Providers + +------+ + | Care Tattoo Technician Name | Role | Phone | [...] | | [address] | [place] [address] | | | | | [place], [place] | [phone] | | | | | [address] | | | | | | [phone] | | | +--------+ + + + [...]
--- OUTSIDE RECORDS SUMMARY | ~2019-11-22 | XMS | Encounter Summary ---
Demographics + + + | Address | [address] | | | [place] [address] | + + + | Home Phone [...] + | Ricarda Johnson | ECON | [address] | | | | | [place] | | | | | [address] | | + + + + + Care Team Providers + +------+ + | Care Shipping Processor Name | Role | Phone | + [...] Radiology | Diagnoses | Berta | Rad General | | | | | Malignant | Edgar Zuñiga MD | [address] | | | | | neoplasm of | [address] | [address] | | | | | rectum (HCC) | [address] | Mailcode: | | | | | Procedures | Diana Toledo | [facility] | | | | | X-RAY | [place], [place] | for Health | | | | | COLON BARIUM | [address] | and Healing, | | | | | ENEMA WO | Phone: | Building 1, | | | | | KUB | [phone] | 3rd Floor | | | | | | Fax: | [place], [place] | | | | | | [phone] | [address] | | | | | | | Phone: | | | | | | | [phone] | | | | | | | Fax: | | | | | | | [phone] | +--------+--------+ + + + + Reason [...] | neoplasm of | [address] | [address] | | | | | rectum (HCC) | [address] | Mailcode: | | | | | Procedures | Diana Toledo | [facility] | | | | | X-RAY | [place], [place] | for Health | | | | | COLON BARIUM | [address] | and Healing, | | | | | ENEMA WO | Phone: | Building 1, | | | | | KUB | [phone] | 3rd Floor | | | | | | Fax: | [place], [place] | | | | | | [phone] | [address] | | | | | | | Phone: | | | | | | | [phone] | | | | | | | Fax: | | | | | | | [phone] | +--------+--------+ + + + + Encounter Details +--------+ + + + + | Date | Type | Department | Care Team | Description | +--------+ + + + + | 10/29/ | Hospital | Radiology/Imaging | | | | 2011 | Encounter | Lab at [facility] [address] | | | | | | [address] Mailcode: | | | | | | [facility] | | | | | | Health and Healing, | | | | | | Building 1, 3rd | | | | | | Floor [facility] [place] | | | | | | [address] | | | | | | [phone] | | | +--------+ + + + [...] + + + +---------+ + + | Burlison-3 Fatty | Take by mouth. 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 | + +--------+ + + + documented in this encounter Results X-RAY COLON BARIUM ENEMA WO KATIANA (10/30/2011 10:43 AM PDT) + + + [...] | | | | | Procedure: A 14-Urdu | | | | | | Delgado [...] | | | | signed / Kacy U. | | | | | | Clark 10/30/2011 | | | | | | 12:05PM Preliminary / | | | | | | Kacy UElsie Pete | | | | | | [...]
--- OUTSIDE RECORDS SUMMARY | ~2019-11-22 | XMS | Encounter Summary ---
Demographics + + + | Address | [address] | | | [place] [address] | + + + | Home Phone [...] Team Providers + +------+ + | Care E Learning Developer Name | Role | Phone | [...] | MD Farhat [address] | (Primary Dx); Lumbar | | | | [address] | [address] [place] | radiculopathy; | | | | [place], [place] | [place] [address] | Failed back syndrome | | | | [address] | [phone] | | | | | [phone] | | | +--------+ + + + [...]
--- OUTSIDE RECORDS SUMMARY | ~2019-11-22 | XMS | Encounter Summary ---
Demographics + + + | Address | [address] | | | [place] [address] | + + + | Home Phone | | + + + | Preferred Language | Unknown | + + + | Marital Status | | + + + | Sabianist Affiliation | PRE | + + + [...] + | Ricarda Johnson | ECON | [address] | | | | | [place] | | | | | [address] | | + + + + + Care Team Providers + +------+ + | Care Shadow Graph Weight Operator Name | Role | Phone | + +------+ + | Hay Greco MD | PCP | | + +------+ + Encounter Details +--------+ + + + + | Date | Type | Department | Care Team | Description | +--------+ + + + + | 08/02/ | Telephone | Digestive Health | Edgar Hampton, | | | 2010 | | [place] at [facility] [address] | [address] | | | | | Debbie Mock | [address] | | | | | Mailcode: Center | [place], [place] | | | | | [facility] Health and | [address] | | | | | [facility], [facility] 2 | [phone] | | | | | [place], [place] | | | | | | [address] | | | | | | [phone] | | | +--------+ + + + [...]
--- OUTSIDE RECORDS SUMMARY | ~2019-11-22 | XMS | Encounter Summary ---
Demographics + + + | Address | [address] | | | [place] [address] | + + + | Home Phone [...] + | Ricarda Johnson | ECON | [address] | | | | | [place] | | | | | [address] | | + + + + + Care Team Providers + +------+ + | Care Livestock Dealer Name | Role | Phone | + [...] Pace, | | | | | | [address] | JUNI [address] | | | | | | [address] | [address] | | | | | | Rd | [facility] | | | | | | [place], [place] | [place] | | | | | | [address] | [address] | | | | | | Phone: | Phone: | | | | | | [phone] | [phone] | | | | | | Fax: | Fax: | | | | | | [phone] | [phone] | +--------+--------+ + + + + Encounter Details +--------+---------+ + + + | Date | Type | Department | Care Team | Description | +--------+---------+ + + + | 08/31/ | Office | Infectious | oRna Kulkarni | MSSA (methicillin | | 2011 | Visit | [facility] at [facility] | JUNI Pace [address] | susceptible | | | | [address] | [address] | Staphylococcus | | | | Loop Physician's | [place], [place] | aureus) septicemia | | | | Pavilion, 3rd floor | [address] | ([facility]); Encounter for | | | | [place], [place] | [phone] | long-term (current) | | | | [address] | | use of antibiotics | | | | [phone] | | | +--------+---------+ + + + [...] DISEASES CLINIC FOLLOW UP Primary Care Physician: [facility] [address] [place] [address] [place] [address] Mr. Johnson presents to Infectious Diseases Clinic [...] 12 he presented to the ED in [place] and was given IV glucocorticoid and a course of oral prednisone. He got no better and was was readmitted to the OSH on 07/30/2011. He was febrile to 104.5 with rigors, and was found to have MSSA bacteremia and was therefore transferred to [facility] on 08/01/2011. At [facility], no source for the MSSA bacteremia [...] 6-8 week course of Ceftriaxone was recommended. [facility] was contracted for these services, with his PCP providing weekly labs and PICC dressing changes. The patient was deemed suitable for discharge to home on 08/09/2011. [facility] OPAT foll ow-up was planned in 2-3 weeks time. Relevant Radiology: 06/11/11: MRI Lumbar Spine at [place] notable for L sacral lesion with contrast enhanc ement suspicious for met 06/20/11: CT chest, abd, pelvis w/contrast at [facility] with "no definite metastatic disease" 06/21/11: [facility] PET Scan "geographic left sacral ala FDG hypermetabolism most likely represen ting insufficiency fracture" 06/29/11: Bone Scan at [place] "intense radiotracer activity in the L sacrum along the L sacroiliac joint from top to bottom in a pattern that suggests a fracture" 06/29/11: MRI pelvis from [place] "abnormal signal intensity and enhancement in the lef t sacrum, left ilium, right ilium, and L5 pedical and L5 vertebral body. The [facility] CT scan al so demonstrates and [...] Call Marly Greco MD for refill s. cpqdzld-jkjnbejzrjykz-gtyrnshw (EXCEDRIN) 250-250-65 mg Oral Tablet Take 1 [...] Take 1 Cap by mouth once daily. [place]heba-3 Fatty Acids-Vitamin E (FISH OIL) 1,000 mg [...] a nd follow-up planning. Rona Kulkarni PA-C [facility] Department of Infectious Disease Outpatient IV Antibiotic Therapy Clinic (OPAT) Pager ID: [phone] [facility] [address] Mail Code [address] [place] [address] documented in th is encounter Plan of [...]
--- OUTSIDE RECORDS SUMMARY | ~2019-11-22 | XMS | Encounter Summary ---
Demographics + + + | Address | [address] | | | [place] [address] | + + + | Home Phone | | + + + | Preferred Language | Unknown | + + + | Marital Status | | + + + | Congregational Affiliation | PRE | + + + [...] + | Ricarda Johnson | ECON | [address] | | | | | [place] | | | | | [address] | | + + + + + Care Team Providers + +------+ + | Care Agricultural Plow Operator Name | Role | Phone | + +------+ + | Hay Greco MD | PCP | | + +------+ + Encounter Details +--------+ + + + + | Date | Type | Department | Care Team | Description | +--------+ + + + + | 10/31/ | Abstract | Digestive Health | Edgar Hampton, | | | 2011 | | [place] at [facility] [address] | [address] | | | | | De[address] Mock | [address] | | | | | Mailcode: Center | [place], [place] | | | | | for Health and | [address] | | | | | [facility], [facility] 2 | [phone] | | | | | [place], [place] | | | | | | [address] | | | | | | [phone] | | | +--------+ + + + [...]
--- OUTSIDE RECORDS SUMMARY | ~2019-11-22 | XMS | Encounter Summary ---
Demographics + + + | Address | [address] | | | [place] [address] | + + + | Home Phone | | + + + | Preferred Language | Unknown | + + + | Marital Status | | + + + | Church Affiliation | 1077 | + + + | Race | Unknown | + + + | Ethnic Group | Unknown | + + + Author + + + | Author | [facility] | | | and [place] | + + + | Organization | [facility] | | [...] Providers + +------+ + | Care Software Specialist Name | Role | Phone | + +------+ + | Hay Greco MD | PCP | | + +------+ + Encounter Details +--------+ + + + + | Date | Type | Department | Care Team | Description | +--------+ + + + + | 12/17/ | Hospital | [facility] | Kemal Damian MD | S/P lumbar fusion | | 2018 | Encounter | MED CTR XRAY [address] | | | | | Blade Solomon | [place] [address] | | | | | [place] [address] | [phone] | | | | | [phone] | | | +--------+ + + + [...] | 0 | 10/31/19 | | | (SHORTY-CON) 10 mEq | Daily. | | | [...] LUMBAR SPINE 2 [place] | Routin | 12/17/2017 | S/P lumbar fusion | Results for this | | 3 VW | e | 10:08 AM | | [...] + | Reji, Rad Results In - 12/17/2017 11:14 AM PDT [...] + + | Performing | Address | City/State/[facility] | Phone Number | | Organization | | | | + +---------+ + + | [facility] | | | | + +---------+ + + documented in this encounter Visit Diagnoses + + | Diagnosis | + + | S/P lumbar fusion Arthrodesis status | + + documented in this encounter"
--- OUTSIDE RECORDS SUMMARY | ~2019-11-22 | XMS | Encounter Summary ---
Demographics + + + | Address | [address] | | | [place] [address] | + + + | Home Phone | | + + + | Preferred Language | Unknown | + + + | Marital Status | | + + + | Jainism Affiliation | PRE | + + + [...] + | Ricarda Johnson | ECON | [address] | | | | | [place] | | | | | [address] | | + + + + + Care Team Providers + +------+ + | Care Woodworking Machine Offbearer Name | Role | Phone | + +------+ + | Hay Greco MD | PCP | | + +------+ + Encounter Details +--------+ + + + + | Date | Type | Department | Care Team | Description | +--------+ + + + + | 06/20/ | Documentati | Digestive Health | Clinic, Surgery | | | 2010 | on | Center at [facility] [address] | | | | | | [address] | | | | | | Mailcode: Center | | | | | | for Health and | | | | | | Healing, Building 2 | | | | | | [place], [place] | | | | | | [address] | | | | | | [phone] | | | +--------+ + + + [...]
--- OUTSIDE RECORDS SUMMARY | ~2019-11-22 | XMS | Encounter Summary ---
Demographics + + + | Address | [address] | | | [place] [address] | + + + | Home Phone [...] Providers + +------+ + | Care Senior Network Systems Engineer Name | Role | Phone | + +------+ + | Hay Greco MD | PCP | | + +------+ + Encounter Details +--------+ + + + + | Date | Type | Department | Care Team | Description | +--------+ + + + + | 07/14/ | Hospital | [facility] | Pj Riggs | | | 2012 | Encounter | MED CTR XRAY [address] | MD Lucrecia [address] | | | | | [place] | [place], [place] | | | | | [place] [address] | [address] | | | | | [phone] | | | +--------+ + + + [...] Performed At | + + + | [facility] Diagnostic Imaging | [place] | | Department [address] | [facility] | | [ rep [address]] [ rep [facility] | | st zip] Signed | - IMAGING | | | | | Patient Name: TYLOR OLIVERA | | | Physician: BHUPINDER : 1945 Age: 68 Sex: M Unit | | | #: [id number] Exam Date: 07/14/13 Location: | | | IMG.INV Report #: [id number] Page: | | | %(RAD)RES..mtdd.print.filter("pg") of %(RAD) | | | RES..mtdd.print.filter("tpg") | | | | | | Accession Number: [id number] | | | EPIDURAL STEROID INJECTION, 07/14/2013 [...] Pj Singer | | | MD Oneil07/16/13 2730 <Electronically signed by Pj Simmons | Troy Riggs MD> Pj Riggs MD 07/14/13 1812 | | | Retail Worker: Kacy San07/15/13 0430 | | | | | + + + + + + + + | Performing | Address | City/State/Zipcode | Phone Number | | Organization | | | | + + + + + | [facility] | [address] | [place] | [phone] | | [facility] | | [address] | | | - IMAGING | | | | + + + + + documented in this encounter Visit Diagnoses Not on filedocumented in this encounter
--- OUTSIDE RECORDS SUMMARY | ~2019-11-22 | XMS | Encounter Summary ---
Demographics + + + | Address | [address] | | | [place] [address] | + + + | Home Phone [...] + | Ricarda Olivera | ECON | [address] | | | | | [place] | | | | | [address] | | + + + + + Care Team Providers + +------+ + | Care Beading Installer Name | Role | Phone | [...] + + | 10/30/ | Hospital | [facility] [address] | Edgar Hampton, | | | 2011 - | Encounter | [address] | [address] | | | | | 14A/[id number] [facility] | [address] | | | 11/02/ | | [facility], | [place], [place] | | | 2011 | | [place] [address] | [address] | | | | | [phone] | [phone] | | | | | | | [...] Hampton MD PCP: Marly Greco MD Service: [facility] colorectal Diagnoses Principal Final Diagnosis: 1. [...] Take 1 Cap by mouth once daily. [place]-3 Fatty Acids-Vitamin E (FISH OIL) 1,000 mg [...] Jane Cain MD MICHELLE C ELLIS, MD [facility] Department of Surgery Resident documented in [...] + + + +---------+ + + | [place]ie-3 Fatty | Take by mouth. | | [...] home today or tomorrow. Pt lives in [facility]. Will follow. Electronically signed by:Gali Waggoner Position:Folding Machine Feeder Pager ID:NOT [phone] Renata Galindo ACNP - [...] with Dr. Cornejo and Dr. Nino BURGESS, [facility] [address] [facility] [address] 14a/uhs8w [facility] [address] This assessment and plan was formulated both [...] services include the following: Notes: Has used [facility] in the past for IV abx LIVING [...] no needs identified Electronically signed by:Macie Wahl Position:Folding Machine Feeder Pager ID:[phone] Electronically signed on:2011-11-01 0704Electronically signed by Belén [...] | + +--------+ + + + | LA CLOSE | Routin | 08/19/2015 | | [...] CLOSURE/TAKEDOWN | ve | 9:25 AM | ([facility]) | | | | Surgic | PDT [...] + + documented in this encounter Results LA CLOSE ENTEROSTOMY,RESEC+ANAST (08/19/2015 2:52 AM PST)PROCEDURE NOTE [...] [facility] | [address] | [place], [place] | | | THERAPY | [address] | [address] | | + + + + + [...] + + + + | [facility] | [address] | [place] [address] | | | PATHOLOGY | [address] [...] Castro, | | | | | | ASSOCIATE PROFESSOR PHYSICIAN | | | | | | | [...] [facility] | [address] | [place], [place] | | | THERAPY | [address] | [address] | | + + + + + [...] [facility] DEPARTMENT | [address] | [place] [address] | | | PATHOLOGY | [address] [...] DEPARTMENT OF | [address] | [place] [address] | | | PATHOLOGY | [address] [...] | + + + + + | [facility] DEPARTMENT | [address] | [place] [address] | | | PATHOLOGY | [address] [...] [facility] | [address] | [place], [place] | | | THERAPY | [address] | [address] | | + + + + + [...] + + + + | [facility] | [address] | [place] [address] | | | PATHOLOGY | [address] [...] folds. | | | | | | Net Washer | | | | | | sections are submitted. | | | | | | Cassette Index:A1, | | | | | | stoma lesionA2, | | | | | | associate sales representative | | | | | | [...] + + + + | [facility] | [address] | [place] [address] | | | PATHOLOGY | [address] [...] | | | | dose on Josefa 11/01/11 at 0800, | | | | [...] 12 10:06 | | | | | GERENTOLOGICAL PHYSIOTHERAPIST infusion intravenous, | | PM PDT | [...] | | | + +---+ | HYDROmorphone GERENTOLOGICAL PHYSIOTHERAPIST infusion 1 | | | dose, Starting [...]
--- OUTSIDE RECORDS SUMMARY | ~2019-11-22 | XMS | Encounter Summary ---
Demographics + + + | Address | [address] | | | [place] [address] | + + + | Home Phone [...] | Author | [facility] | | | and [place] | + + + | Organization | [facility] | | | and [...] Team Providers + +------+ + | Care Electrocardiograph Repairer Name | Role | Phone | [...] [address] | | | | | [place], [place] | [place] [address] | | | | | [address] | [phone] | | | | | [phone] | | | +--------+ + + + [...] + + | Performing | Address | City/State/[facility] | Phone Number | | Organization | | | | + +---------+ + + | MISCELLANEOUS LAB | | | [phone] | + +---------+ + + | MISCELANIOUS LAB | | | [phone] | + +---------+ + + documented in this encounter Visit Diagnoses + + | Diagnosis | + + | S/P lumbar fusion - Primary Arthrodesis status | + + documented in this encounter"
--- OUTSIDE RECORDS SUMMARY | ~2019-11-22 | XMS | Encounter Summary ---
Demographics + + + | Address | [address] | | | [place] [address] | + + + | Home Phone [...] Team Providers + +------+ + | Care Counter Hop Name | Role | Phone | + [...] + | 06/19/ | Telephone | [facility] | Geraldo Bass | Post Op (PO CALL) | | 2018 | | [address] | MD Farhat [address] | | | | | [address] | [address] [place] | | | | | [place], [place] | [place] [address] | | | | | [address] | [phone] | | | | | [phone] | | | +--------+ + + + [...]
--- OUTSIDE RECORDS SUMMARY | ~2019-11-22 | XMS | Encounter Summary ---
Demographics + + + | Address | [address] | | | [place] [address] | + + + | Home Phone [...] Team Providers + +------+ + | Care International Bank Manager Name | Role | Phone | [...] | | | [place], [place] | [address] | | | | | [address] | | | | | | [phone] | | | +--------+ + + + [...]
--- OUTSIDE RECORDS SUMMARY | ~2019-11-22 | XMS | Encounter Summary ---
Demographics + + + | Address | [address] | | | [place] [address] | + + + | Home Phone [...] Team Providers + +------+ + | Care Addresser Name | Role | Phone | + [...] | | [address] | [place] [address] | | | | | [place], [place] | [phone] | | | | | [address] | | | | | | [phone] | | | +--------+ + + + [...]
--- OUTSIDE RECORDS SUMMARY | ~2019-11-22 | XMS | Encounter Summary ---
Demographics + + + | Address | [address] | | | [place] [address] | + + + | Home Phone [...] Providers + +------+ + | Care Shoe Dresser Name | Role | Phone | + [...] | | | [place], [place] | [address] | | | | | [address] | | | | | | [phone] | | | +--------+ + + + [...]
--- OUTSIDE RECORDS SUMMARY | ~2019-11-22 | XMS | Encounter Summary ---
Demographics + + + | Address | [address] | | | [place] [address] | + + + | Home Phone | | + + + | Preferred Language | Unknown | + + + | Marital Status | | + + + | Adventism Affiliation | 1077 | + + + | Race | Unknown | + + + | Ethnic Group | Unknown | + + + Author + + + | Author | [facility] | | | and [place] | + + + | Organization | [facility] | | | [...] Team Providers + +------+ + | Care Money Room Supervisor Name | Role | Phone | [...] | | [address] | [place] [address] | (Primary Dx) | | | | [place] | [phone] | | | | | [address] | | | | | | [phone] | | | +--------+ + + + [...] and right lateral | | fusion from T3utfqmpv L2.Dictated and Signed by: Keven Suarez MD [...]
--- OUTSIDE RECORDS SUMMARY | ~2019-11-22 | XMS | Encounter Summary ---
Demographics + + + | Address | [address] | | | [place] [address] | + + + | Home Phone [...] Providers + +------+ + | Care Quality Liaison Name | Role | Phone | + +------+ + | Hay Greco MD | PCP | | + +------+ + Encounter Details +--------+ + + + + | Date | Type | Department | Care Team | Description | +--------+ + + + + | 06/18/ | Hospital | [facility] | Conversion | | | 2013 | Encounter | [facility]ICAL CENTER | Transaction, | | | | | [facility]LECTROD[facility]NO[facility] | Provider Unknown | | | | | [address] | [phone] | | | | | [place] | | | | | | [address] | | | | | | [phone] | | | +--------+ + + + [...] | ECG 12 LEAD | Routin | 06/18/2013 | | Results for this | | | e | 4:02 PM | | procedure are in the | | | | PST | | results section. | + +--------+ + + + documented in this encounter Results ECG 12 lead (06/18/2013 4:02 PM PST) + + + + + + | Component | Value | Ref Range | Performed | Pathologist | | | | | At | Signature | + + + + + + | DIAGNOSIS: | Sinus | | EXTERNAL | | | | bradycardiaOtherwise | | LAB | | | | normal ECGWhen compared | | | | | | with ECG of 20-DEC-2012 | | | | | | 15:02,No significant | | | | | | change was | | | | | | foundConfirmed by | | | | | | HARPREET MACDONALD ([id number]) on | | | | | | 06/18/2013 6:21:43 PM | | | | + + + + + + + + | Specimen | + + | | + + + + + | Narrative | Performed At | + + + | Historically converted procedure from [facility] | EXTERNAL LAB | + + + + +---------+ + + | Performing | Address | City/State/Zipcode | Phone Number | | Organization | | | | + +---------+ + + | EXTERNAL LAB | | | | + +---------+ + + documented in this encounter Visit Diagnoses Not on filedocumented in this encounter"
--- OUTSIDE RECORDS SUMMARY | ~2019-11-22 | XMS | Encounter Summary ---
Demographics + + + | Address | [address] | | | [place] [address] | + + + | Home Phone [...] Team Providers + +------+ + | Care Resort Housekeeper Name | Role | Phone | + [...] + + | 03/25/ | Hospital | [facility] | Pj Riggs | | | 2019 | Encounter | MED CTR IR INTRA OP | MD Lucrecia [address] | | | | | [address] | [place] | | | | | [place] | [address] | | | | | [address] | | | | | | [phone] | | | +--------+ + + + [...] You can't be awakened Date Last Reviewed: 05/01/201619999565-5139 [employer]. [address] [place] [address], [place] [address]. All righ ts reserved. This information is [...] | amLODIPine | | | 0 | 03/21/20 | | | (NORVASC) 5 mg | [...] PM | Nevro | | | THORACIC (15550) | | PDT | | | + [...] + | Diagnosis | + + | Osteoarthritis Osteoarthrosis, unspecified whether generalized or localized, | | unspecified site | + + | Chronic renal insufficiency, stage 3 (moderate) (HCC) | + + | 1st degree AV block First degree atrioventricular block | + + documented in this encounter Administered Medications + + [...] IV syringe 1.5 g 1.5 g, | / | 1:22 | | | | | Intravenous, Administer over 30 | Cartridg | PM PDT | | | | | Minutes, Prior to Incision, | e | | | | | | Starting Sat03/25/19 at 1132, For | | | | | | | 1 dose, Pre-op, Indications: | | | | | | | Surgical Prophylaxis | | | | | | + + + +-------+ +------+ +---+---+ | | | +---+---+ + +-------+ +--------+---+---+ | fentaNYL (PF) injection PRN, | Given | 03/25/20 | 25 mcg | | | | Starting Sat03/25/19 at 1313 | | 19 1:27 | [...]
--- OUTSIDE RECORDS SUMMARY | ~2019-11-22 | XMS | Encounter Summary ---
Demographics + + + | Address | [address] | | | [place] [address] | + + + | Home Phone [...] Team Providers + +------+ + | Care Roll Tester Name | Role | Phone | [...] | | | [address] [place] | [place] [address] | | | | | [place] [address] | | | | | | [phone] | | | +--------+ + + + [...] for comparison only - no result from [place]. | [facility] | + + + + +---------+ + + | Performing | Address | City/State/Zipcode | Phone Number | | Organization | | | | + +---------+ + + | [facility] | | | | + +---------+ + + documented in this encounter Visit Diagnoses Not on filedocumented in this encounter"
--- OUTSIDE RECORDS SUMMARY | ~2019-11-22 | XMS | Encounter Summary ---
Demographics + + + | Address | [address] | | | [place] [address] | + + + | Home Phone | | + + + | Preferred Language | Unknown | + + + | Marital Status | | + + + | Latter Day Affiliation | PRE | + + + [...] + | Ricarda Johnson | ECON | [address] | | | | | [place] | | | | | [address] | | + + + + + Care Team Providers + +------+ + | Care Production Repairer Name | Role | Phone | [...] REQUEST TO | Diana Toledo | [address] [place], | | | | | SURGERY | [place], [place] | [place] | | | | | [employer] | [address] | [address] | | | | | | Phone: | Phone: | | | | | | [phone] | [phone] | | | | | | Fax: | Fax: | | | | | | [phone] | [phone] | +--------+--------+ + + + + Reason [...] | Required | | tumor | [place] | [address] | | | | | Procedures | SURGICAL | [address] | | | | | CONSULT TO | CLINIC [facility] | Mailcode: | | | | | COLORECTAL | [address] | [place] for | | | | | SURGERY | AVE | Health and | | | | | | [place], | Healing, | | | | | | [place] [address] | [address] | | | | | | Phone: | [place], [place] | | | | | | [phone] | [address] | | | | | | Fax: | Phone: | | | | | | [phone] | [phone] | | | | | | | Fax: | | | | | | | [phone] | +--------+ + + + + + [...] | | | | Mailcode: Center | [place], [place] | | | | | for [facility] and | [address] | | | | | [facility] 2 | [phone] | | | | | [place], [place] | | | | | | [address] | | | | | | [phone] | | | +--------+---------+ + + + [...]
--- OUTSIDE RECORDS SUMMARY | ~2019-11-22 | XMS | Encounter Summary ---
Demographics + + + | Address | [address] | | | [place] [address] | + + + | Home Phone [...] Team Providers + +------+ + | Care Inspector Firearms Name | Role | Phone | + [...] | | | | back | | [address] Phone: | | | | | syndrome | | [phone] | | | | | Procedures | | Fax: | | | | | [facility] | | [phone] | | | | | IMPLNT | [...] + + | 06/18/ | Hospital | [facility] | Geraldo Bass | S/P spinal fusion; | | 2019 | Encounter | MED CTR OR INTRA OP | MD Farhat [address] | Lumbar | | | | [address] | [address] [place] | radiculopathy; | | | | [place] | [place] [address] | Failed back syndrome | | | | [address] | [phone] | | | | | [phone] | | | +--------+ + + + [...] You can't be awakened Date Last Reviewed: 05/01/201619994281-5166 [employer]. [address] [place] [address]. All righ ts reserved. This information is [...] | | Jackso | | | n [place] | | | Frame | +---+--------+ | [...] | [address] | [place] | [phone] | | [facility] | | [address] | | | - LABORATORY | | [...] ONCE PRN, | | | Wheezing, Starting [facility] 06/18/19 at | | | 0623, For 1 dose, Pre-op | | + +---+ | | | + +---+ | albuterol-ipratropium 2.5-0.5 | | | mg/3 mL nebulizer solution 3 mL | | | 3 mL, Nebulization, ONCE PRN, | | | Wheezing, Shortness of Breath, | | | Starting [facility] 06/18/19 at 0926, For | | [...] glucose < 50, | | | Starting [facility] 06/18/19 at 0623, | | | [...] | | | | | | longer, vdvrpn-wix-ewjgs use of | | | | | [...] | | | For HR <50, Starting [facility] 06/18/19 | | | at 0926, [...] DBP > 100, | | | Starting [facility] 06/18/19 at 0926, | | | Hold if HR > 100. Maximum total | | | dose 40 mg. Use labetalol first | | | if available., Recovery/Phase I | | + +---+ | | | + +---+ | HYDROmorphone (DILAUDID) | | | injection 0.2-0.4 mg 0.2-0.4 mg, | | | Intravenous, EVERY 5 MIN PRN, | | | Pain, Starting [facility] 06/18/19 at | | | 0926, [...] One week or longer, | | | tfivgn-oir-wkcug use of at least | | | [...] | Intravenous, CONTINUOUS, Starting | | | [facility] 06/18/19 at 0645, TKO. Use | | | this instead of LR if patient is | | | on dialysis., Pre-op | | + +---+ | | | + +---+ documented in this encounter
--- OUTSIDE RECORDS SUMMARY | ~2019-11-22 | XMS | Encounter Summary ---
Demographics + + + | Address | [address] | | | [place] [address] | + + + | Home Phone [...] Providers + +------+ + | Care Public Service Officer Name | Role | Phone | [...] | | [address] | [place] [address] | lumbar (Primary Dx); | | | | [place] | [phone] | Facet arthropathy, | | | | [address] | | lumbar | | | | [phone] | | | +--------+ + + + [...] [address] | [place] | [phone] | | [facility] | | [address] | | | - IMAGING | | [...]
--- OUTSIDE RECORDS SUMMARY | ~2019-11-22 | XMS | Encounter Summary ---
Demographics + + + | Address | [address] | | | [place] [address] | + + + | Home Phone [...] Team Providers + +------+ + | Care Solar Energy Systems Engineer Name | Role | Phone | + +------+ + | lAdo Frank DO | PCP | | + +------+ + Encounter Details +--------+ + + + + | Date | Type | Department | Care Team | Description | +--------+ + + + + | 06/09/ | [facility] | [facility] | Geraldo Bass | DDD (degenerative | | 2019 | Encounter | MED CTR XRAY [address] | [address], [address] | disc disease), | | | | [place] | [address] [place] | lumbar; | | | | [place] [address] | [place] [address] | Spondylolisthesis of | | | | [phone] | [phone] | lumbar region; High | | | [...]
--- OUTSIDE RECORDS SUMMARY | ~2019-11-22 | XMS | Encounter Summary ---
Demographics + + + | Address | [address] | | | [place] [address] | + + + | Home Phone [...] + | Ricarda Johnson | ECON | [address] | | | | | [place] | | | | | [address] | | + + + + + Care Team Providers + +------+ + | Care Matrix Worker Name | Role | Phone | [...] (HCC) | [address] Chir[address] | Diana Toledo [facility] | | | | | Sacral | Diana Toledo | [facility], | | | | | lesion | [place], [place] | 10th Floor | | | | | Procedures | | [place], [place] | | | | | CT CHEST, | Phone: | [phone] | | | | | ABDOMEN & | [phone] | Phone: | | | | | PELVIS W IV | Fax: | [phone] | | | | | CONTRAST | [phone] | Fax: | | | | | | | [phone] | +--------+--------+ + + + + Diagnostic [...] | | | | | Malignant | Egdar Zuñiga MD | [address] | | | | | neoplasm of | [address] | | | | | rectum (HCC) | Balta[address] Chirinos | Ted | | | | | Sacral | [address] | Brian, 4th | | | | | lesion | [place], [place] | floor | | | | | Procedures | | [place], [place] | | | | | PET SKULL | Phone: | [phone] | | | | | BASE TO | [phone] | Phone: | | | | | MID-THIGHS | Fax: | [phone] | | | | | | [phone] | Fax: | | | | | | | [phone] | +--------+--------+ + + + + Reason [...] Cancer of | | 2010 | | [place] [facility] [address] | [address] | rectum | | | | Debbie Mock | [address] | | | | | Mailcode: Center | [place], [place] | | | | | [facility] and | [address] | | | | | [facility] 2 | [phone] | | | | | [place], [place] | | | | | | [address] | | | | | | [phone] | | | +--------+ + + + [...] | | | | | on a Xpcp-dp-Ogineh | | | | | | machine [...] | | + +---------+ + + | [facility] DEPARTMENT OF | | | | | [...] hypoattenuating | | | | | | yhxjcnfqojj25-no lesion | | | | | | [...] | | + +---------+ + + | [facility] DEPARTMENT OF | | | | | RADIOLOGY | | | | + +---------+ + + documented in this encounter Visit Diagnoses + + | Diagnosis | + + | Malignant neoplasm of rectum (HCC) Malignant neoplasm of rectum | + + | Sacral lesion Disorders of sacrum | + + documented in this encounter"
--- OUTSIDE RECORDS SUMMARY | ~2019-11-22 | XMS | Encounter Summary ---
Demographics + + + | Address | [address] | | | [place] [address] | + + + | Home Phone [...] + | Ricarda Olivera | ECON | [address] | | | | | [place] | | | | | [address] | | + + + + + Care Team Providers + +------+ + | Care Pillar Worker Name | Role | Phone | [...] 2011 | | [address]iz | [address] [facility] | CLOSURE Specimen | | | | Rd [facility] | [facility] [address] | X1(ileostomy-Romeo) | | | | Hospital Admitting | [place], [place] | | | | | Desk Located on the | [address] | | | | | 9th floor | [phone] | | | | | [place], [place] | | | | | | [address] | | | +--------+---------+ + + + [...] Hampton MD PCP: Marly Greco MD Service: [facility] colorectal Diagnoses Principal Final Diagnosis: 1. [...] Take 1 Cap by mouth once daily. Houston-3 Fatty Acids-Vitamin E (FISH OIL) 1,000 mg [...] Jane Cain MD MICHELLE C ELLIS, MD [facility] Department of Surgery Resident documented in [...] + + + +---------+ + + | Houston-3 Fatty | Take by mouth. | | [...] home today or tomorrow. Pt lives in [facility]. Will follow. Electronically signed by:Gali Waggoner Position:Mortgage Servicing Specialist Pager ID:NOT specif Renata Galindo ACNP - [...] with Dr. Cornejo and Dr. Nino BURGESS, [facility] [address] [id number] [facility] [address] This assessment and plan was formulated both [...] services include the following: Notes: Has used [facility] in the past for IV abx LIVING [...] no needs identified Electronically signed by:Macie Wahl Position:Mortgage Servicing Specialist Pager ID:[phone] Electronically signed on:2011-11-01 0704Electronically signed by Belén [...] CLOSURE/TAKEDOWN | ve | 9:25 AM | ([facility]) | | | | Surgic | PDT [...] RESPIRATORY | [address] | [place], [place] | | | THERAPY | [address] | [address] | | + + + + + [...] + + | [facility] | [address] | [place] [address] | | | PATHOLOGY | [address] [...] Castro, | | | | | | ANALYTICAL CHEMISTRY TEACHER | | | | | | | [...] [facility] RESPIRATORY | [address] | [place], [place] | | | THERAPY | [address] | [address] | | + + + + + [...] | + + + + + | [facility] DEPARTMENT OF | [address] | [place] [address] | | | PATHOLOGY | [address] [...] DEPARTMENT OF | [address] | [place] [address] | | | PATHOLOGY | [address] [...] | + + + + + | [facility] DEPARTMENT OF | [address] | [place] [address] | | | PATHOLOGY | [address] [...] [facility] RESPIRATORY | [address] | [place], [place] | | | THERAPY | [facility] | [address] | | + + + + + [...] + + | [facility] | [address] | [place] [address] | | | PATHOLOGY | [address] [...] folds. | | | | | | Financial Sales Consultant | | | | | | sections are submitted. | | | | | | Cassette Index:A1, | | | | | | stoma lesionA2, | | | | | | field service representative | | | | | | [...] + + | [facility] | [address] | [place] [address] | | | PATHOLOGY | [address] | | | + + + + + documented in this encounter Visit Diagnoses + + | Diagnosis | + + | Rectal cancer (HCC) Malignant neoplasm of rectum | + + documented in this encounter
--- OUTSIDE RECORDS SUMMARY | ~2019-11-22 | XMS | Encounter Summary ---
Demographics + + + | Address | [address] | | | [place] [address] | + + + | Home Phone [...] Team Providers + +------+ + | Care Sports Physical Therapist Name | Role | Phone | + [...] | | | | [address] | [place] [address] | | | | | [place], [place] | [phone] | | | | | [address] | | | | | | [phone] | | | +--------+ + + + [...] XR SHOULDER RIGHT 2 | Routin | 09/22/2018 | | Results for this | | + VW | e | 1:15 PM | | procedure are in the | | | | PDT | | results section. | + +--------+ + + + documented in this encounter Results XR Shoulder Right 2 + Vw (09/22/2018 1:15 PM PDT) + + | Specimen | + + | | + + + + + | Narrative | Performed At | + + + | History: This is a 73 y.o. year old male. Diagnosis for Order | | | ICD-10-CM 1. Primary osteoarthritis of right shoulder M19.011 X-ray | | | shoulder right complete 2+v . Technique: 3 views right | | | shoulder. AP, Grashey, scapular Y.. Comparison Exam: 11/13/2017, | | | [place] [facility]. Findings: The patient is status post right | | | reversed total shoulder arthroplasty. The prosthesis is in good | | | position, without evidence of failure or loosening. No fracture or | | | dislocation noted. Bony mineralization is normal. Visualized lung | | | gill are clear.. Impression: Status post right reversed total | | | shoulder arthroplasty, with good radiographic outcome.. | | | Electronically signed by: BARBARA MARIE MD 09/22/2018 2:26 PM | | | BARBARA MARIE MD has created this entry using [employer] | | | Recognition software and [employer] macros. The entry has been | | [...] M19.011 | | X-ray shoulder rightcomplete 2+v. Technique: 3 views right shoulder. AP, Grashey, | | scapular Y.. Comparison Exam: 11/13/2017, [place] [facility]. Findings: The patient is | | status post right reversed total shoulderarthroplasty. The prosthesis is in good | | position, without evidence offailure or loosening. No fracture or dislocation noted. | | Bonymineralization is normal. Visualized lung gill are clear.. Impression: Status post | | right reversed total shoulder arthroplasty, withgood radiographic outcome.. | | Electronically signed by: BARBARA MARIE MD 09/22/2018 2:26 PM BARBARA MARIE MD has | | created this entry using [employer] software and [employer] | | macros. The entry has been reviewed andthere may still exist sound alike word | | errors. | |failure or loosening. No fracture or dislocation noted. Bony | |mineralization is normal. Visualized lung gill are clear.. | | | |Impression: Status post right reversed total shoulder arthroplasty, with | |good radiographic outcome.. | | | | | |Electronically signed by: BARBARA MARIE MD 09/22/2018 2:26 PM | | | | | |BARBARA MARIE MD has created this entry using [employer] | |Recognition software and [employer] macros. The entry has been reviewed and | |there may still exist sound alike word errors. | | | + + documented in this encounter Visit Diagnoses Not on filedocumented in this encounter"
--- OUTSIDE RECORDS SUMMARY | ~2019-11-22 | XMS | Encounter Summary ---
Demographics + + + | Address | [address] | | | [place] [address] | + + + | Home Phone [...] Providers + +------+ + | Care Asphalt Roller Operator Name | Role | Phone | [...] | | | [address] [place] | [place] [address] | | | | | [place] [address] | | | | | | [phone] | | | +--------+ + + + [...] for comparison only - no result from [place]. | | + + + + +---------+ + + | Performing | Address | City/State/Zipcode | Phone Number | | Organization | | | | + +---------+ + + | [facility] | | | | + +---------+ + + documented in this encounter Visit Diagnoses Not on filedocumented in this encounter"
--- OUTSIDE RECORDS SUMMARY | ~2019-11-22 | XMS | Encounter Summary ---
Demographics + + + | Address | [address] | | | [place] [address] | + + + | Home Phone [...] Team Providers + +------+ + | Care Local Company Refrigerated Truck Driver Name | Role | Phone | + +------+ + | Hay Greco MD | PCP | | + +------+ + Encounter Details +--------+ + + + + | Date | Type | Department | Care Team | Description | +--------+ + + + + | 10/14/ | Hospital | [facility] | Kemal Damian MD | | | 2013 | Encounter | MED CTR LABORATORY | [address] | | | | | [address] | [place] [address] | | | | | [place] | [phone] | | | | | [address] | | | | | | [phone] | | | +--------+ + + + [...]
--- OUTSIDE RECORDS SUMMARY | ~2019-11-22 | XMS | Encounter Summary ---
Demographics + + + | Address | [address] | | | [place] [address] | + + + | Home Phone [...] Team Providers + +------+ + | Care Rubber Ball Finisher Name | Role | Phone | + +------+ + | Hay Greco MD | PCP | | + +------+ + Reason for Visit +--------+ + | Reason | Comments | +--------+ + | Other | Dr. Riggs injection | +--------+ + Encounter Details +--------+ + + + + | Date | Type | Department | Care Team | Description | +--------+ + + + + | 06/09/ | Telephone | [facility] | Kemal Damian MD | Other ( | | 2012 | | NEUROSURGERY [address] | [address] | [place] | | | | [address] | [place] [address] | injection) | | | | [place] | [phone] | | | | | [address] | | | | | | [phone] | | | +--------+ + + + [...]
--- OUTSIDE RECORDS SUMMARY | ~2019-11-22 | XMS | Encounter Summary ---
Demographics + + + | Address | [address] | | | [place] [address] | + + + | Home Phone [...] + | Ricarda Johnson | ECON | [address] | | | | | [place] | | | | | [address] | | + + + + + Care Team Providers + +------+ + | Care Manager Product Design Name | Role | Phone | + [...] + + + + | 08/20/ | Yard Supervisor | Infectious | Rona Kulkarni | | | 2011 | | [facility] at [facility] | JUNI Pace [address] | | | | | [address] | [address] | | | | | Loop Physician's | [place], [place] | | | | | Pavilion, 3rd floor | [address] | | | | | [place], [place] | [phone] | | | | | [address] | | | | | | [phone] | | | +--------+ + + + [...]
--- OUTSIDE RECORDS SUMMARY | ~2019-11-22 | XMS | Encounter Summary ---
Demographics + + + | Address | [address] | | | [place] [address] | + + + | Home Phone | | + + + | Preferred Language | Unknown | + + + | Marital Status | | + + + | Yarsanism Affiliation | 1077 | + + + [...] Team Providers + +------+ + | Care Respiratory Physician Name | Role | Phone | + [...] | | [address] | [place] [address] | | | | | [place] | [phone] | | | | | [address] | | | | | | [phone] | | | +--------+ + + + [...]
--- OUTSIDE RECORDS SUMMARY | ~2019-11-22 | XMS | Encounter Summary ---
Demographics + + + | Address | [address] | | | [place] [address] | + + + | Home Phone [...] Team Providers + +------+ + | Care Customs Consultant Name | Role | Phone | [...] | | | | | | | [place] | | | | | | | ARTHRODESIS | | | | | | | POSTERIOR/PO | | | | | | | STEROLATERAL | | | | | | | LUMBAR [place] | | | | | | | LUMBAR SPINE | | | | | | | | | | | | | | FUSION,ANTER | | | | | | | APPRCH [place] | | | | | | [...] | | | | | [address] | [address] | | | | | [place] | [place] [address] | | | | | [address] | [phone] | | | | | [phone] | | | +--------+ + + + [...] +----+---+ + + | | 1 | [place] | | | | 8 | 43-degrees [...] +----+---+ + + | | 1 | [place] off | | | | 9 | [...] 06/21/17 1245 by | | eral | jhsv-cxh-ypxcfi catheter system; | Viviana Hernandez RN | [...] 6:45 PM PST Anesthesia Airway | | Fxhvnfeos97/6/2017 18:19Preprocedure check: patient identified, oxygen, airway assessed, [...]
--- OUTSIDE RECORDS SUMMARY | ~2019-11-22 | XMS | Encounter Summary ---
Demographics + + + | Address | [address] | | | [place] [address] | + + + | Home Phone | | + + + | Preferred Language | Unknown | + + + | Marital Status | | + + + | Moravian Affiliation | 1077 | + + + | Race | Unknown | + + + | Ethnic Group | Unknown | + + + Author + + + | Author | [facility] | | | and [place] | + + + | Organization | [facility] | | [...] Team Providers + +------+ + | Care Furniture Mover Name | Role | Phone | + +------+ + PCP | Unavailable | + +------+ + Encounter Details +--------+ + + + + | Date | Type | Department | Care Team | Description | +--------+ + + + + | 04/10/ | Hospital | [facility] | | | | 2009 | Encounter | MED CTR GENERIC OP | | | | | | CONV DEPT [address] | | | | | | [place], | | | | | | [place] [address] | | | | | | [phone] | | | +--------+ + + + [...]
--- OUTSIDE RECORDS SUMMARY | ~2019-11-22 | XMS | Encounter Summary ---
Demographics + + + | Address | [address] | | | [place] [address] | + + + | Home Phone | | + + + | Preferred Language | Unknown | + + + | Marital Status | | + + + | Druze Affiliation | 1077 | + + + | Race | Unknown | + + + | Ethnic Group | Unknown | + + + Author + + + | Author | [facility] | | | and [place] | + + + | Organization | [facility] | | | [...] Team Providers + +------+ + | Care Interpretive Naturalist Name | Role | Phone | + +------+ + | Hay Greco MD | PCP | | + +------+ + Encounter Details +--------+ + + + + | Date | Type | Department | Care Team | Description | +--------+ + + + + | 07/30/ | [facility] | [facility] | Kemal Damian MD | S/P lumbar fusion | | 2015 | Encounter | MED CTR XRAY [address] | [address] | | | | | [address] | [place] [address] | | | | | [place] [address] | [phone] | | | | | [phone] | | | +--------+ + + + [...] LUMBAR SPINE 2 [place] | Routin | 07/30/2014 | S/P lumbar fusion | Results for this | | 3 VW | e | 11:51 AM | | procedure are in the | | | | PST | | results section. | + +--------+ + + + documented in this encounter Results XR Lumbar Spine 2 or 3 Vw (07/30/2014 11:51 AM PST) + + | Specimen | [...] + | Reji, Rad Results In - 07/30/2014 6:24 PM PST [...] + | MISCELLANEOUS LAB | | | [phone] | + +---------+ + + | MISCELANIOUS LAB | | | [phone] | + +---------+ + + documented in this encounter Visit Diagnoses + + | Diagnosis | + + | S/P lumbar fusion Arthrodesis status | + + documented in this encounter"
--- OUTSIDE RECORDS SUMMARY | ~2019-11-22 | XMS | Encounter Summary ---
Demographics + + + | Address | [address] | | | [place] [address] | + + + | Home Phone [...] + | Ricarda Johnson | ECON | [address] | | | | | [place] | | | | | [address] | | + + + + + Care Team Providers + +------+ + | Care Silver Service Waiter Name | Role | Phone | + [...] | [facility] at [facility] | JUNI Pace [address] | | | | | [address] | [address] | | | | | Loop Physician's | [place], [place] | | | | | Brian, [facility] floor | [address] | | | | | [place], [place] | [phone] | | | | | [address] | | | | | | [phone] | | | +--------+ + + + [...]
--- OUTSIDE RECORDS SUMMARY | ~2019-11-22 | XMS | Encounter Summary ---
Demographics + + + | Address | [address] | | | [place] [address] | + + + | Home Phone [...] Team Providers + +------+ + | Care Electrician'S Helper Name | Role | Phone | [...] | | [address] | [place] [address] | | | | | [place] | [phone] | | | | | [address] | | | | | | [phone] | | | +--------+ + + + [...]
--- OUTSIDE RECORDS SUMMARY | ~2019-11-22 | XMS | Encounter Summary ---
Demographics + + + | Address | [address] | | | [place] [address] | + + + | Home Phone [...] Providers + +------+ + | Care Public Health Educator Name | Role | Phone | [...] | | [address] | [place] [address] | | | | | [place] | [phone] | | | | | [address] | | | | | | [phone] | | | +--------+ + + + [...] Performed At | + + + | [facility] | DODGE | | Department [address] [facility] [place] | [facility] | | [ rep [address]] [ rep [facility] | | st zip] Signed | - IMAGING | | | | | Patient Name: TYLOR OLIVERA | | | Physician: JEFF : 1945 Age: 68 Sex: M Unit | | | #: [id number] Exam Date: 06/09/13 Location: | | | [facility] Report #: [id number] Page: | | | %(RAD)RES..mtdd.print.filter("pg") of %(RAD) | | | RES..mtdd.print.filter("tpg") | | | | | | Accession Number: [id number] | | | LUMBAR SPINE LIMITED, 06/09/2013 CLINICAL HISTORY: | | | BACK PAIN. COMPARISON: [facility] | | | Imaging one view [...] Transcribed Date/Time: 06/09/2013 14:32 | | | Hot Blast Worker: <<Signature on File>> | | | | | | Shayne Barreto MD06/09/13 1649 <Electronically signed by Shayne Singer | | | Mary Lou GUNN> Shayne Barreto MD 06/09/13 1344 | | | Hot Blast Worker: byyd [email or web address]/26/13 1432 | | | Kemal Damian MD | | + + + + + + + + | Performing | Address | City/State/Zipcode | Phone Number | | Organization | | | | + + + + + | [address] | [address] | [place] | [phone] | | [facility] | | [address] | | | - IMAGING | | | | + + + + + documented in this encounter Visit Diagnoses + + | Diagnosis | + + | Back pain - Primary Backache, unspecified | + + documented in this encounter
--- OUTSIDE RECORDS SUMMARY | ~2019-11-22 | XMS | Encounter Summary ---
Demographics + + + | Address | [address] | | | [place] [address] | + + + | Home Phone [...] Team Providers + +------+ + | Care Cv Tech Name | Role | Phone | + +------+ + | Hay Greco MD | PCP | | + +------+ + Encounter Details +--------+ + + + + | Date | Type | Department | Care Team | Description | +--------+ + + + + | 06/04/ | [facility] | [facility] | Kemal Damian MD | Spinal stenosis of | | 2017 | Encounter | MED CTR XRAY [address] | [address] | lumbar region, | | | | [place] | [place], [place] [address] | unspecified whether | | | | [place] [address] | [phone] | neurogenic | | | | [phone] | | claudication | | | | | Eric Tran, | present; S/P lumbar | | | | | [address] | fusion; DDD | | | | | [place], [place] | (degenerative disc | | | | | [address] | disease), lumbar; | | | | [...]
--- OUTSIDE RECORDS SUMMARY | ~2019-11-22 | XMS | Encounter Summary ---
Demographics + + + | Address | [address] | | | [place] [address] | + + + | Home Phone | | + + + | Preferred Language | Unknown | + + + | Marital Status | | + + + | Yazdanism Affiliation | PRE | + + + [...] + | Ricarda Johnson | ECON | [address] | | | | | [place] | | | | | [address] | | + + + + + Care Team Providers + +------+ + | Care Felt Hat Inspector And Packer Name | Role | Phone | [...] | 2010 | on | Center at [facility] [address] | | | | | | [address] | | | | | | Mailcode: Center | | | | | | for Health and | | | | | | Healing, Building 2 | | | | | | [place], [place] | | | | | | [address] | | | | | | [phone] | | | +--------+ + + + [...]
--- OUTSIDE RECORDS SUMMARY | ~2019-11-22 | XMS | Encounter Summary ---
Demographics + + + | Address | [address] | | | [place] [address] | + + + | Home Phone [...] + | Ricarda Johnson | ECON | [address] | | | | | [place] | | | | | [address] | | + + + + + Care Team Providers + +------+ + | Care Aligner Typewriter Name | Role | Phone | + [...] | | | | | X-RAY | [place], [place] | for Health | | | | | [address] | [address] | and Healing, | | | | | [address] | Phone: | Building [address], | | | | | KUB | [phone] | 3rd Floor | | | | | | Fax: | [place], [place] | | | | | | [phone] | [address] | | | | | | | Phone: | | | | | | | [phone] | | | | | | | Fax: | | | | | | | [phone] | +--------+--------+ + + + + Reason [...] | | | | | X-RAY | [place], [place] | for Health | | | | | [address] | [address] | and Healing, | | | | | [address] | Phone: | Building 1, | | | | | KUB | [phone] | 3rd Floor | | | | | | Fax: | [place], [place] | | | | | | [phone] | [address] | | | | | | | Phone: | | | | | | | [phone] | | | | | | | Fax: | | | | | | | [phone] | +--------+--------+ + + + + Encounter Details +--------+ + + + + | Date | Type | Department | Care Team | Description | +--------+ + + + + | 10/29/ | Hospital | Radiology/Imaging | | | | 2011 | Encounter | Lab at [facility] [address] | | | | | | [address] Mailcode: | | | | | | [facility] | | | | | | Health and Healing, | | | | | | Building 1, 3rd | | | | | | Floor [facility] [place] | | | | | | [address] | | | | | | [phone] | | | +--------+ + + + [...] + + + +---------+ + + | Castine-3 Fatty | Take by mouth. | | [...] | | | | | Procedure: A 14-Wolof | | | | | | Delgado [...] U. | | | | | | [place] 10/30/2011 | | | | | | [...]
--- OUTSIDE RECORDS SUMMARY | ~2019-11-22 | XMS | Encounter Summary ---
Demographics + + + | Address | [address] | | | [place] [address] | + + + | Home Phone [...] Team Providers + +------+ + | Care Pmp Project Manager Name | Role | Phone | + +------+ + PCP | Unavailable | + +------+ + Encounter Details +--------+ + + + + | Date | Type | Department | Care Team | Description | +--------+ + + + + | 04/17/ | Hospital | [facility] | | | | 2009 | Encounter | MED CTR OP INFUSION | | | | | | [address] | | | | | | [place] | | | | | | [address] | | | | | | [phone] | | | +--------+ + + + [...]
--- OUTSIDE RECORDS SUMMARY | ~2019-11-22 | XMS | Encounter Summary ---
Demographics + + + | Address | [address] | | | [place] [address] | + + + | Home Phone [...] Team Providers + +------+ + | Care Glove Turner And Former Automatic Name | Role | Phone | + +------+ + | Hay Greco MD | PCP | | + +------+ + Encounter Details +--------+ + + + + | Date | Type | Department | Care Team | Description | +--------+ + + + + | 07/30/ | [facility] | [facility] | Kemal Damian MD | S/P lumbar fusion | | 2015 | Encounter | MED CTR XRAY [address] | [address] | | | | | [place] | [place] [address] | | | | | [place] [address] | [phone] | | | | | [phone] | | | +--------+ + + + [...] + | MISCELLANEOUS LAB | | | [phone] | + +---------+ + + | MISCELANIOUS LAB | | | [phone] | + +---------+ + + documented in this encounter Visit Diagnoses + + | Diagnosis | + + | S/P lumbar fusion Arthrodesis status | + + documented in this encounter"
--- OUTSIDE RECORDS SUMMARY | ~2019-11-22 | XMS | Encounter Summary ---
Demographics + + + | Address | [address] | | | [place] [address] | + + + | Home Phone [...] + | Ricarda Johnson | ECON | [address] | | | | | [place] | | | | | [address] | | + + + + + Care Team Providers + +------+ + | Care Ceramic Tile Mechanic Name | Role | Phone | [...] | 10/29/ | Office | Preoperative | Jeanne Abraham | Preop examination | | 2011 | Visit | Medicine Clinic at | A, TECHNICAL SPECIALIST [address] | (Primary Dx); Rectal | | | | [facility] 4th Floor [address] | cancer (HCC); | | | | [address] | [place], [place] | Malignant neoplasm | | | | Mailcode: CH4S | [address] | of rectum ([facility]); | | | | [facility] | | Hyperlipidemia; | | | | and Healing, | | Bacteremia; MSSA | | | | Building 1,4th Floor | | (methicillin | | | | [place], [place] | | susceptible | | | | [address] | | Staphylococcus | | | | [phone] | | aureus) septicemia | | | | | | (HCC); Left hip | | | | | | pain; Fracture of | | | | | | sacrum ([facility]); HTN | | | | | | [...] 0000 by | | D - | Gazelle; Anterior, Right; | Pushpa Norwood RN | [...] OR NON-STEROIDAL ANTI-INFLAMMATORY DRUGS (NSAIDs) Advil, Aleve, Azalea-Crompond, Anacin, Arthopan, Ascriptin, Aspergum, Aspirin with and [...] ersantine, Phenylbutazone, Piroxicam, Relafen, Robomol, Rufen, Sine-aid, [place] s cold tablets, Sulindac, Talwin, Tolectin, Triaminicin, [...] or walk. Surgery Check in Locations Admitting [facility], ninth floor [facility] Surgery Check in Time: Someone from your [...] it is after office hours, call the [facility] production lapping machine operator at [phone] and ask them to page your doctor [...] patient. Document will be sc anned in [facility]. Current Medication List 10/30/11 12:40 PM Name [...] Mother d. CHF Heart Disease Father d. [place] History Substance Use Topics Smoking status: Never [...] mass index is 26.8 8 kg/(m^2). Note Carding Machine Operator ROS/PE PMC ROS Last edited 10/30/11 1250 [...] to this patient's care. YUDY Grider NP [facility] [address] [place] [address] [phone] documented in this encounter Plan of Treatment [...] | + +--------+ + + + | IN COLLECTION VENOUS | Routin | 10/30/2011 | [...] [facility] POINT | [address] [facility] | [place] [address] | | | OF CARE TESTS | [...] | | | DEPARTMENT | | | MALIAN | | | OF | | | [...] DEPARTMENT OF | [address] | [place] [address] | | | PATHOLOGY | [address] [...] + + + + | [facility] | [address] | [place] [address] | | | PATHOLOGY | [address] [...] by | | | | | | Akredo, | | | | | | | | | | | | [address] | | | | | | [facility],[place] | | | | | | [address] | | | | | | | | | | | | www.[email or web address], | | | | | | Rebeca [...] [facility] | [address] | [place], [place] | | | UNIV PTH - INTFC | | [address] | | + + + + + [...] + + + + | [facility] | [address] | [place] [address] | | | PATHOLOGY | [address] [...] + + + + | [facility] | [address] | [place] [address] | | | PATHOLOGY | [address] [...] + + + + | [facility] | [address] | [place] [address] | | | PATHOLOGY | [address] [...]
--- OUTSIDE RECORDS SUMMARY | ~2019-11-22 | XMS | Encounter Summary ---
Demographics + + + | Address | [address] | | | [place] [address] | + + + | Home Phone [...] Team Providers + +------+ + | Care Firesetter Name | Role | Phone | + [...] | | | | S/P lumbar | [address] | | | | | | fusion | Phone: | | | | | | Procedures | [phone] | | | | | | IR Pain | Fax: | | | | | | Management/S | [phone] | | | | | | keletal [...] + + | 03/25/ | Hospital | [facility] | Pj Riggs | Chronic bilateral | | 2019 | Encounter | MED CTR XRAY [address] | [address] | low back pain | | | | [place] | [place], [place] | without sciatica; | | | | [place] [address] | [address] | S/P lumbar fusion; | | | | [phone] | | Failed back syndrome | | | | | Nurse, Gideon Rad | of lumbar spine | | | | | Rubber Boots And Shoes Repairer, Milagro | | | | | | [...]
--- OUTSIDE RECORDS SUMMARY | ~2019-11-22 | XMS | Encounter Summary ---
Demographics + + + | Address | [address] | | | [place] [address] | + + + | Home Phone | | + + + | Preferred Language | Unknown | + + + | Marital Status | | + + + | Faith Affiliation | 1077 | + + + | Race | Unknown | + + + | Ethnic Group | Unknown | + + + Author + + + | Author | [facility] | | | and [place] | + + + | Organization | [facility] | | [...] Team Providers + +------+ + | Care Glass Blower Name | Role | Phone | + +------+ + | Hay Greco MD | PCP | | + +------+ + Encounter Details +--------+ + + + + | Date | Type | Department | Care Team | Description | +--------+ + + + + | 12/22/ | Hospital | C GENERIC IP | Conversion | Laceration of finger | | 2012 | Encounter | CONVERSION DEP [address] | Transaction, | of left hand | | | | [address] | Provider Unknown | | | | | [place], [place] | [phone] | | | | | [address] | | | | | | [phone] | | | +--------+ + + + [...] + +--------+ + + + | XR HAND LEFT 3 + VW | Routin | 12/20/2012 | | Results for this | | | e | 9:51 AM | | procedure are in the | | | | PDT | | results section. | + +--------+ + + + documented in this encounter Results XR Hand Left 3 + Vw (12/20/2012 9:51 AM PDT) + + | Specimen | + + | | + + + + + | Narrative | Performed At | + + + | This is a non-reportable procedure without a radiologist report and | | | is used for image storage only | | + + + + + | Procedure Note | + + | Dwayne Mendoza Conversion - 03/06/2019 6:32 PM PDT This is a non-reportable procedure | | without a radiologist report and isused for image storage only | + + documented in this encounter Visit Diagnoses + + | Diagnosis | + + | Laceration of finger of left hand Open wound of finger(s) , without mention of | | complication | + + documented in this encounter"
--- OUTSIDE RECORDS SUMMARY | ~2019-11-22 | XMS | Encounter Summary ---
Demographics + + + | Address | [address] | | | [place] [address] | + + + | Home Phone [...] Team Providers + +------+ + | Care Neurology Technologist Name | Role | Phone | + +------+ + | Hay Greco MD | PCP | | + +------+ + Encounter Details +--------+ + + + + | Date | Type | Department | Care Team | Description | +--------+ + + + + | 06/18/ | Hospital | [facility] | Conversion | | | 2013 | Encounter | MEDICAL CENTER | Transaction, | | | | | [employer] | Provider Unknown | | | | | [address] | [phone] | | | | | [place] | | | | | | [address] | | | | | | [phone] | | | +--------+ + + + [...] + + | Historically converted procedure from [facility] | EXTERNAL LAB | + + + + +---------+ + + | Performing | Address | City/State/Zipcode | Phone Number | | Organization | | | | + +---------+ + + | EXTERNAL LAB | | | | + +---------+ + + documented in this encounter Visit Diagnoses Not on filedocumented in this encounter"
--- OUTSIDE RECORDS SUMMARY | ~2019-11-22 | XMS | Encounter Summary ---
Demographics + + + | Address | [address] | | | [place] [address] | + + + | Home Phone [...] + | Ricarda Johnson | ECON | [address] | | | | | [place] | | | | | [address] | | + + + + + Care Team Providers + +------+ + | Care Machine Binding Folder Name | Role | Phone | + [...] REQUEST TO | Diana Toledo | Rd [place], | | | | | SURGERY | [place], [place] | [place] | | | | | BODY COVERER | [address] | [address] | | | | | [place] CLOSE | Phone: | Phone: | | | | | ENTEROSTOMY, | [phone] | [phone] | | | | | RESEC+ANAST | Fax: | Fax: | | | | | | [phone] | [phone] | +--------+--------+ + + + + Reason [...] | 2011 | Orders | Center at [facility] [address] | [address] [facility] | | | | | De[address] | [address] | | | | | Mailcode: [address] | [place], [place] | | | | | [facility] and | [address] | | | | | [facility] 2 | [phone] | | | | | [place], [place] | | | | | | [address] | | | | | | [phone] | | | +--------+ + + + [...] + + | [facility] | [address] | [place] [address] | | | PATHOLOGY | [address] [...] by | | | | | | [employer], | | | | | | | | | | | | [address] | | | | | | [address] [facility] | | | | | | [address] | | | | | | | | | | | | [email or web address].[email or web address], | | | | | | Rebeca [...] [facility] | [address] | [place], [place] | | | UNIV PTH - INTFC | | [address] | | + + + + + [...] | + + + + + | [facility] DEPARTMENT OF | [address] | [place] [address] | | | PATHOLOGY | [address] [...] 85 | 60 - 99 mg/dL | [facility] | | | PLASMA | | [...] | | | DEPARTMENT | | | GUYANESE | | | OF | | | [...] + + | [facility] | [address] | [place] [address] | | | PATHOLOGY | [address] [...] DEPARTMENT OF | [address] | [place] [address] | | | PATHOLOGY | [address] [...] + + | [facility] | [address] | [place] [address] | | | PATHOLOGY | [address] | | | + + + + + documented in this encounter Visit Diagnoses + + | Diagnosis | + + | Rectal cancer (HCC) - Primary Malignant neoplasm of rectum | + + documented in this encounter"
--- OUTSIDE RECORDS SUMMARY | ~2019-11-22 | XMS | Encounter Summary ---
Demographics + + + | Address | [address] | | | [place] [address] | + + + | Home Phone [...] Team Providers + +------+ + | Care Resident Care Manager Rn Name | Role | Phone | [...] + + | 09/11/ | Office | [facility] | Pj Riggs | Lumbar spondylosis | | 2019 | Visit | PHYSIATRY [address] | [address] | (Primary Dx); | | | | [address] | [address] [place] [address] | Chronic bilateral | | | | [place] | [address] | low back pain | | | | [address] | | without sciatica; | | | | [phone] | | Spondylosis of | | | [...] of this encounter Patient Instructions Patient Instructions Kristina Balderrama CMA - 09/11/2018 11:30 AM PSTPlease attend the inje ction appointment with Pj Riggs MD. If his office has not contacted you within one week, to schedule the injection, please contact my clinic. Your injection will be performed at [facility]. Please take note of [...] of the procedure you must provide a team driver to take you home. For all procedur es it is recommended that someone else drive you home. documented in this encounter Progress Notes Pj Riggs MD - 09/11/2018 11:30 AM PST [address] [place] [address] FAX: PHYSICAL MEDICINE AND REHABILITATION H&P CHIEF [...] has no apparent deficits with short or halfway memory. He has appropriate fund of knowledge [...]
--- OUTSIDE RECORDS SUMMARY | ~2019-11-22 | XMS | Encounter Summary ---
Demographics + + + | Address | [address] | | | [place] [address] | + + + | Home Phone | | + + + | Preferred Language | Unknown | + + + | Marital Status | | + + + | Yarsanism Affiliation | PRE | + + + [...] + | Ricarda Johnson | ECON | [address] | | | | | [place] | | | | | [address] | | + + + + + Care Team Providers + +------+ + | Care Establishment Guide Name | Role | Phone | + [...] + + | 10/28/ | Hospital | [facility] GI PROCEDURE | Edgar Hampton, | | | 2011 | Encounter | [address] | [address] [facility] | | | | | [place] Mailcode: [facility] | [address] | | | | | [facility] | [place], [place] | | | | | Health and Healing, | [address] | | | | | [place] [address] | [phone] | | | | | [place], [place] | | | | | | [address] | | | | | | [phone] | | | +--------+ + + + [...] Saturday 8:00- 4:30 Endoscopy Toll free ext: [phone] or [phone] After business hours, or on weekends and holidays call the [facility] Toll Free 1 [phone] Ext. [phone] or and have the GI doctor acquisition lead paged. The provider who performed your procedure is: Dr. Hamtpon Results of your exam: Poor prep Recommended [...] + + + +---------+ + + | [place]-3 Fatty | Take by mouth. | | [...] rom the original. PRE PROCEDURE NOTE: MR# [id number] Subjective: Cosmo Johnson is a 66 y.o. male presents today for colonoscopy for nash rveillance of rectal ca. Dx with uT3N1 rectal ca late 2009, resected in aug 2010 with compl ete [place]. First surveillance colonoscopy. Medications reviewed Allergies: Allergies [...]
--- OUTSIDE RECORDS SUMMARY | ~2019-11-22 | XMS | Encounter Summary ---
Demographics + + + | Address | [address] | | | [place] [address] | + + + | Home Phone [...] + | Ricarda Johnson | ECON | [address] | | | | | [place] | | | | | [address] | | + + + + + Care Team Providers + +------+ + | Care Oil Pipeline Operator Name | Role | Phone | [...] | Diseases at [facility] | JUNI Pace [address] | | | | | [address] | [address] | | | | | Loop Physician's | [place], [place] | | | | | [place], [facility] floor | [address] | | | | | [place], [place] | [phone] | | | | | [address] | | | | | | [phone] | | | +--------+ + + + [...]
--- OUTSIDE RECORDS SUMMARY | ~2019-11-22 | XMS | Encounter Summary ---
Demographics + + + | Address | [address] | | | [place] [address] | + + + | Home Phone [...] Team Providers + +------+ + | Care Design Engineering Intern Name | Role | Phone | + +------+ + | Aldo Frank DO | PCP | | + +------+ + Reason for Visit + + + | Reason | Comments | + + + | Pain Management | Preop and DC MEDD (QUALITY SYSTEM MANAGER) | + + + Encounter Details +--------+ + + + + | Date | Type | Department | Care Team | Description | +--------+ + + + + | 06/18/ | [facility]ati | [facility] | Geraldo Bass | Pain Management | | 2019 | on | NEUROSURGERY [address] | MD Farhat [address] | (Preop and DC MEDD | | | | [address] | [address] [place] | (QUALITY SYSTEM MANAGER)) | | | | [place] | [place] [address] | | | | | [address] | [phone] | | | | | [phone] | | | +--------+ + + + [...] Bass The following information was obtained from https://secureaccess.co.gov/myAccess/saw/select .do on 06/18/19. No results returned with [place] [facility] QUALITY SYSTEM MANAGER query. documented in this enco unter Plan of Treatment Not on filedocumented as of this encounter Visit Diagnoses Not on filedocumented in this encounter"
--- OUTSIDE RECORDS SUMMARY | ~2019-11-22 | XMS | Encounter Summary ---
Demographics + + + | Address | [address] | | | [place] [address] | + + + | Home Phone [...] + | Ricarda Johnson | ECON | [address] | | | | | [place] | | | | | [address] | | + + + + + Care Team Providers + +------+ + | Care Hop Picker Name | Role | Phone | + [...] | neoplasm of | [address] | [place] | | | | | rectum (HCC) | [address] Ch[address] | Ted | | | | | Sacral | Diana Toledo | Brian, | | | | | lesion | [place], [place] | floor | | | | | Procedures | [address] | [place], [place] | | | | | PET SKULL | Phone: | [address] | | | | | BASE TO | [phone] | Phone: | | | | | MID-THIGHS | Fax: | [phone] | | | | | | [phone] | Fax: | | | | | | | [phone] | +--------+--------+ + + + + Encounter Details +--------+ + + + + | Date | Type | Department | Care Team | Description | +--------+ + + + + | 06/20/ | Hospital | Radiation Medicine | | Canceled (Practice | | 2010 | Encounter | at [facility] [address] | | Moves) | | | | [address] | | | | | | Brian, 4th floor | | | | | | [place], [place] | | | | | | [address] | | | | | | [phone] | | | +--------+ + + + [...] | | | | | on a Dvlc-ts-Kpjioo | | | | | | machine [...] | | + +---------+ + + | [facility] DEPARTMENT OF | | | | | RADIOLOGY | | | | + +---------+ + + documented in this encounter Visit Diagnoses + + | Diagnosis | + + | Malignant neoplasm of rectum (HCC) Malignant neoplasm of rectum | + + | Sacral lesion Disorders of sacrum | + + documented in this encounter"
--- OUTSIDE RECORDS SUMMARY | ~2019-11-22 | XMS | Encounter Summary ---
Demographics + + + | Address | [address] | | | [place] [address] | + + + | Home Phone [...] Providers + +------+ + | Care Systems Administrator Name | Role | Phone | [...] | Required | | fusion | JUNI Ibarra | PHYSICAL | | | | | Lumbar | [address] | THERAPY [address] | | | | | radicular | [address] | [place] | | | | | pain Back | [place], [place] | [place], [place] | | | | | pain, | [address] | [address] | | | | | unspecified | Phone: | Phone: | | | | | back | [phone] | [phone] | | | | | location, | Fax: | Fax: | | | | | unspecified | [phone] | [phone] | | | | | back pain [...] | | | | | | [facility] | | | | | [...] + + | 12/17/ | Office | [facility] | Kirk Javier | S/P lumbar fusion | | 2018 | Visit | NEUROSURGERY [address] | [address] | (Primary Dx); Lumbar | | | | [address] | [address] | radicular pain; | | | | [place] | [place] [address] | Back pain, | | | | [address] | [phone] | unspecified back | | | | [phone] | | location, | | | | [...] encounter Patient Instructions Patient Instructions Clarissa Tabares, Stock Supervisor - 12/17/2017 10:30 AM PDTIt was a [...] anything further.Jewel lara signed by Clarissa Tabares, Stock Supervisor at 12/17/2017 11:33 AM PDT documented in this encounter Progress Notes Kirk Javier PA-C - 12/17/2017 10:30 AM PDTFormatting of this note might be differ ent from the original. Kirk Javier PA-C [address] [facility], [address] [place], [place] [id number] FAX: NEUROSURGERY FOLLOW-UP CHIEF COMPLAINT: Chief Complaint [...] he has sent his medical records to [facility] and is working on getting establish ed [...]
--- OUTSIDE RECORDS SUMMARY | ~2019-11-22 | XMS | Encounter Summary ---
Demographics + + + | Address | [address] | | | [place] [address] | + + + | Home Phone | | + + + | Preferred Language | Unknown | + + + | Marital Status | | + + + | Jewish Affiliation | PRE | + + + [...] + | Ricarda Johnson | ECON | [address] | | | | | [place] | | | | | [address] | | + + + + + Care Team Providers + +------+ + | Care Stock Counter Name | Role | Phone | + +------+ + | Hay Greco MD | PCP | | + +------+ + Encounter Details +--------+ + + + + | Date | Type | Department | Care Team | Description | +--------+ + + + + | 06/14/ | Abstract | Digestive Health | Edgar Hampton, | | | 2010 | | [place] at [facility] [address] | [address] | | | | | Debbie Mock | [address] | | | | | Mailcode: Center | [place], [place] | | | | | [facility] and | [address] | | | | | [facility], [facility] 2 | [phone] | | | | | [place], [place] | | | | | | [address] | | | | | | [phone] | | | +--------+ + + + [...]
--- OUTSIDE RECORDS SUMMARY | ~2019-11-22 | XMS | Encounter Summary ---
Demographics + + + | Address | [address] | | | [place] [address] | + + + | Home Phone [...] + | Ricarda Johnson | ECON | [address] | | | | | [place] | | | | | [address] | | + + + + + Care Team Providers + +------+ + | Care Ent Consultant Name | Role | Phone | [...] | | | Mailcode: Center | [place], [place] | | | | | for Health and | [address] | | | | | [facility] 2 | [phone] | | | | | [place], [place] | | | | | | [address] | | | | | | [phone] | | | +--------+ + + + [...]
--- OUTSIDE RECORDS SUMMARY | ~2019-11-22 | XMS | Encounter Summary ---
Demographics + + + | Address | [address] | | | [place] [address] | + + + | Home Phone | | + + + | Preferred Language | Unknown | + + + | Marital Status | | + + + | Mandaen Affiliation | 1077 | + + + | Race | Unknown | + + + | Ethnic Group | Unknown | + + + Author + + + | Author | [facility] | | | and [place] | + + + | Organization | [facility] | | | [...] Team Providers + +------+ + | Care Analysis Intern Name | Role | Phone | [...] [place] | | | | | | [address] | [address] Phone: | | | | | | Phone: | [phone] | | | | | | [phone] | Fax: | | | | | | Fax: | [phone] | | | | | | [phone] | | + + + + + [...] | | | [place], [place] | [address] | fusion | | | | [address] | | | | | | [phone] | | | +--------+ + + + [...]
--- OUTSIDE RECORDS SUMMARY | ~2019-11-22 | XMS | Encounter Summary ---
Demographics + + + | Address | [address] | | | [place] [address] | + + + | Home Phone [...] Providers + +------+ + | Care Motorcycle Police Name | Role | Phone | + [...] | | [address] | [place] [address] | | | | | [place], [place] | [phone] | | | | | [address] | | | | | | [phone] | | | +--------+ + + + [...]
--- OUTSIDE RECORDS SUMMARY | ~2019-11-22 | XMS | Encounter Summary ---
Demographics + + + | Address | [address] | | | [place] [address] | + + + | Home Phone [...] + | Ricarda Johnson | ECON | [address] | | | | | [place] | | | | | [address] | | + + + + + Care Team Providers + +------+ + | Care Mortgage Loan Coordinator Name | Role | Phone | + +------+ + | Hay Greco MD | PCP | | + +------+ + Reason for Visit + + + | Reason | Comments | + + + | Pathology Report | slides recived from [facility] [id number] | + + + Encounter Details +--------+ + + + + | Date | Type | Department | Care Team | Description | +--------+ + + + + | 05/12/ | Shipmaster | Digestive Health | Edgar Hampton, | Malignant neoplasm | | 2009 | | [place] at [facility] [address] | MD [address] | of rectum (HCC) | | | | [address] | [address] | (Primary Dx) | | | | Mailcode: [place] | [place], [place] | | | | | [facility] and | [address] | | | | | [facility], [facility] 2 | [phone] | | | | | [place], [place] | | | | | | [address] | | | | | | [phone] | | | +--------+ + + + [...] Rodolfo | | | | | | [facility], | | | | | | Quan Valdovinos | | | | | | Accession Number: | | | | | | [id number] | | | | | | Collection [...] (Rodolfo | | | | | | [facility], | | | | | | [id number],03/21/2010): | | | | | | - [...] + + + + | [facility] | [address] | [place] [address] | | | PATHOLOGY | [address] | | | + + + + + documented in this encounter Visit Diagnoses + + | Diagnosis | + + | Malignant neoplasm of rectum (HCC) - Primary Malignant neoplasm of rectum | + + documented in this encounter"
--- OUTSIDE RECORDS SUMMARY | ~2019-11-22 | XMS | Encounter Summary ---
Demographics + + + | Address | [address] | | | [place] [address] | + + + | Home Phone | | + + + | Preferred Language | Unknown | + + + | Marital Status | | + + + | Christianity Affiliation | PRE | + + + [...] + | Ricarda Johnson | ECON | [address] | | | | | [place] | | | | | [address] | | + + + + + Care Team Providers + +------+ + | Care Psychologist Counseling Name | Role | Phone | + [...] | [facility] at [facility] | JUNI Pace [address] | | | | | [address] | [address] | | | | | Loop Physician's | [place], [place] | | | | | Brian, [facility] floor | [address] | | | | | [place], [place] | [phone] | | | | | [address] | | | | | | [phone] | | | +--------+ + + + [...]
--- OUTSIDE RECORDS SUMMARY | ~2019-11-22 | XMS | Encounter Summary ---
Demographics + + + | Address | [address] | | | [place] [address] | + + + | Home Phone [...] Team Providers + +------+ + | Care Computer Systems Information Director Name | Role | Phone | [...] | 05/11/ | Documentati | [facility] | Geraldo Bass | Pain Management | | 2019 | on | [address] | MD Farhat [address] | (intial encounter) | | | | [address] | [address] [place] | | | | | [place] | [place] [address] | | | | | [address] | [phone] | | | | | [phone] | | | +--------+ + + + [...] of this encounter Progress Notes Nazario Means, Resident Care Assistant - 05/11/2019 2:42 PM PDTPatient states he is not taking n arcotic medication. Opioid Risk Tool (ORT): Total Score 0 (05/12/19 1283) (0 to 3 = Low risk: 6% [...] with Generalized anxiety disorder, >15 = severe) [facility] PHYSICIAN ASSISTANT was checked on 05/12/19 and no medications have been dispensed i n the last 3 months. document ed in this encounter Plan of Treatment Not on filedocumented as of this encounter Visit Diagnoses Not on filedocumented in this encounter"
--- OUTSIDE RECORDS SUMMARY | ~2019-11-22 | XMS | Encounter Summary ---
Demographics + + + | Address | [address] | | | [place] [address] | + + + | Home Phone [...] + | Ricarda Johnson | ECON | [address] | | | | | [place] | | | | | [address] | | + + + + + Care Team Providers + +------+ + | Care Rawhide Bone Roller Name | Role | Phone | + [...] | | | | Loop Physician's | [place], [place] | having an allergic | | | | Brian, 3rd floor | [address] | rxn to Doxycycline) | | | | [facility] [place] | [phone] | | | | | [address] | | | | | | [phone] | | | +--------+ + + + [...]
--- OUTSIDE RECORDS SUMMARY | ~2019-11-22 | XMS | Encounter Summary ---
Demographics + + + | Address | [address] | | | [place] [address] | + + + | Home Phone [...] Team Providers + +------+ + | Care Brewmaster Name | Role | Phone | + [...] | Changes | NEUROSURGERY [address] | Pmo Analyst | | | | | [address] | | | | | | [place] | | | | | | [address] | | | | | | [phone] | | | +--------+ + + + [...]
--- OUTSIDE RECORDS SUMMARY | ~2019-11-22 | XMS | Encounter Summary ---
Demographics + + + | Address | [address] | | | [place] [address] | + + + | Home Phone [...] + | Ricarda Johnson | ECON | [address] | | | | | [place] | | | | | [address] | | + + + + + Care Team Providers + +------+ + | Care Title Coordinator Name | Role | Phone | [...] | | | | | [address] | | | | | | | | | | | | | | Mailcode: | | | | | | | [id number] | | | | | | | Brian | | | | | | | [place], [place] | | | | | | | [address] | | | | | | | Phone: | | | | | | | [phone] | | | | | | | Fax: | | | | | | | [phone] | +--------+--------+ + + + + Encounter Details +--------+ + + + + | Date | Type | Department | Care Team | Description | +--------+ + + + + | 07/26/ | Hospital | [facility] [address] | Edgar Hampton, | | | 2010 - | Encounter | [place] Mailcode: | [address] | | | | | [address] | [facility] [address] | | | 07/30/ | | [place], | [place], [place] | | | 2010 | | [place] [address] | [address] | | | | | [phone] | [phone] | | | | | | | [...] 24 hours. Qty: 100 Tab Refills: 0 lgpxpxv-hsugaxtlovmcy-vfsbvomq (EXCEDRIN) 250-250-65 mg Oral Tablet Take 1 [...] during the day time hours by calling [facility] surgery office at [phone] - After hours, weekends and holidays, you may call the hospital subway operator at [phone] an d have the supervisor insulation Green Team for general surgery paged. Destination: [...] printed education materials: ileostomy pack et from [facility] nurses Review with patient/family: Understanding of disease/injury/surgical [...] 0659 07/30/10 0700 - 07/31/10 0659 Shift 1544-9402 3302-8976 2154-2270 Daily Total 6290-6969 9337-6816 3118-2064 Daily Total I N T A K E P.O. 700 2870 462 0774 360 360 P.O. 700 9598 198 4984 360 360 Other 200 200 I/O Bladder Irrigation Input (Urinary Cath Placement Delgado) 200 200 Shift Total 700 7577 983 3148 560 560 O U T P U T Urine 1200 8827 536 8832 925 925 Urine 375 375 I/O Urinary Drain Output (Urinary Cath Placement Delgado) 1200 2857 659 9718 550 550 Drains 35 15 20 70 Wound Drain Output (Drains (wounds/surgical) ERIKA) 35 15 20 70 Other 200 300 225 725 75 75 Ostomy Output (Ostomy Ileostomy RUQ) 200 300 225 725 75 75 Shift Total 1435 2142 176 0890 1000 1000 [facility] -735 -515 -195 -1445 -440 -440 General [...] this assessment and plan. OLIVE CLARK MD [facility] [address] [facility] Mailcode: K[address]13 [facility] [id number] Edgar Pleitez MD - 07/30/2010 9:05 AM [...] nausea or vomiting. Pain well controlled with PREPARATION PLANT SUPERVISOR. A mbulating to bathroom. Physical Exam: Last [...] 0659 07/28/10 07 - 07/29/10 0659 Shift 4429-1612 0419-5790 0334-6281 Daily Total 9171-6709 1200-9995 8778-8491 Daily Total I N T A K E P.O. 550 764 779 9529 700 700 P.O. 550 628 925 6239 700 700 I.V. 625 1130 1000 2755 250 250 Volume (ml) 625 1125 1000 2750 250 250 I/O Vol (mL) Saline Flush (Peripheral Line Left Hand) 5 5 Shift Total 1175 1880 1250 4305 950 950 O U T P U T Urine 350 220 564 5943 350 350 Urine 438 294 5361 350 350 Volume Out (mL) 450 450 I/O Urinary Drain Output (Urinary Cath Placement Delgado) 350 350 Drains 70 55 60 185 15 15 Wound Drain Output (Drains (wounds/surgical) ERIKA) 70 55 60 185 15 15 Other 40 20 60 75 75 Ostomy Output (Ostomy Ileostomy RUQ) 40 20 60 75 75 Shift Total 420 008 895 5435 440 440 NET 755 3604 594 3971 510 510 General Appearance: NAD, AAO x [...] mg in bacteriostatic NaCl 0.9% 50 mL PREPARATION PLANT SUPERVISOR infusion , , Intravenous, CONTINU OUS insulin [...] - Will d/c IVF. - Will d/c PREPARATION PLANT SUPERVISOR and start oral pain medication. - Encourage OOB, ambulation. The attending of record is Dr. Hampton, who agrees with this assessment and plan. OLIVE CLARK MD [facility] [address] [facility] Mailcode: Kpv13 [facility] [address] Olive Anderson MD - 07/27/2010 12:49 PM PST INPATIENT PROGRESS NOTE Hospital Day:1 Author; OLIVE CLARK MD Attending Physician: Edgar Hampton MD Subjective: Pt did well overnight with no acute events. Denies nausea or vomiting. Taking small sips of clears. Pain well controlled with PREPARATION PLANT SUPERVISOR. Denies CP, SOB. Physical Exam: Last Vitals: [...] 0659 07/27/10 07 - 07/28/10 0659 Shift 4903-4570 8238-8200 4890-4690 Daily Total 2260-9532 2144-8079 5787-6110 Daily Total I N T A K [...] 100 Blood Measured 100 100 Shift Total 994 724 3727 420 420 NET 2950 620 3570 330 [...] mg in bacteriostatic NaCl 0.9% 50 mL PREPARATION PLANT SUPERVISOR infusion , , Intravenous, CONTINU OUS insulin [...] diet as tolerated today. - Will continue PREPARATION PLANT SUPERVISOR for pain control. - Encourage OOB, ambulation. The attending of record is Dr. Hampton, who agrees with this assessment and plan. [facility] [address] [facility] Mailcode: Kpv13 [facility] [id number] Edgar Pleitez MD - 07/26/2010 3:50 PM [...] | + +--------+ + + + | [place] PART REMOVAL | Routin | 08/19/2015 | [...] + + documented in this encounter Results [place] PART REMOVAL COLON W COLOPROCTOSTOMY (08/19/2015 7:42 [...] + + + + + | [facility] | [address] | [place] [address] | | | PATHOLOGY | [address] [...] | + + + + + | [facility] DEPARTMENT OF | [address] | [place] [address] | | | PATHOLOGY | [address] [...] DEPARTMENT OF | [address] | [place] [address] | | | PATHOLOGY | [address] [...] | + + + + + | [facility] DEPARTMENT OF | [address] | [place] [address] | | | PATHOLOGY | [address] [...] + + + + + | [facility] | [address] | [place] [address] | | | PATHOLOGY | [address] [...] | + + + + + | [facility] DEPARTMENT OF | [address] | [place] [address] | | | PATHOLOGY | [address] [...] DEPARTMENT OF | [address] | [place] [address] | | | PATHOLOGY | [address] [...] | + + + + + | [facility] DEPARTMENT OF | [address] | [place] [address] | | | PATHOLOGY | [address] [...] DEPARTMENT OF | [address] | [place] [address] | | | PATHOLOGY | [address] [...] - MARQUAM | [address] | [place], [place] | | | ABDIAZIZ PEREZ OF CARE | [address] | [address] | | | TESTS | | | [...] ANGELES | [address] | [place], [place] | | | CHRIS POINT OF CARE | [address] | [address] | | | TESTS | | | [...] DEPARTMENT OF | [address] | [place] [address] | | | PATHOLOGY | [address] [...] DEPARTMENT OF | [address] | [place] [address] | | | PATHOLOGY | [address] [...] | + + + + + | [facility] DEPARTMENT OF | [address] | [place] [address] | | | PATHOLOGY | [address] [...] [facility] | [address] | [place], [place] | | | THERAPY | [address] | [address] | | + + + + + [...] + + + | ANGELINA ANGELES | [address] | [place], [place] | | | CHRIS POINT OF CARE | [address] | [address] | | | TESTS | | | [...] MARQUAM | [address] | [place], [place] | | | CHRIS POINT OF CARE | [address] | [address] | | | TESTS | | | [...] MARQUAM | [address] | [place], [place] | | | CHRIS POINT OF CARE | [address] | [address] | | | TESTS | | | [...] ANGELES | [address] | [place] | | | ABDIAZIZ PEREZ OF TERESA | [address] | [address] | | | TESTS | | | [...] MARQUAM | [address] | [place], [place] | | | ABDIAZIZ PEREZ OF CARE | [address] | [address] | | | TESTS | | | [...] BRIDGETTE | [address] | [place], [place] | | | ABDIAZIZ PEREZ OF CARE | [address] | [address] | | | TESTS | | | [...] + + + + + | [facility] | [address] | [place] [address] | | | PATHOLOGY | [address] [...] DEPARTMENT OF | [address] | [place] [address] | | | PATHOLOGY | [address] [...] + + + + + | [facility] | [address] | [place] [address] | | | PATHOLOGY | [address] [...] + + + + + | [facility] | [address] | [place] [address] | | | PATHOLOGY | [address] [...] | + + + + + | [facility] DEPARTMENT OF | [address] | [place] [address] | | | PATHOLOGY | [address] [...] ANGELINA ANGELES | [address] | [place], [place] | | | ABDIAZIZ PEREZ [facility] | [address] | [address] | | | TESTS | | | [...] | | | | | Tumor (pT): [id number] | | | | | | Lymph [...] cancer | | | | | | ([id number]). | | | | | | Thepatient [...] (A2, | | | | | | P3afcddf margins)A5-6, | | | | | | longitudinal sections of | | | | | | mass to distal | | | | | | marginA7, additional | | | | | | remaining distal margin | | | | | | en faceA8, proximal | | | | | | marginA9, random | | | | | | sections hbwumW64, nine | | | | | | possible lymph kkdsyC37, | | | | | | eight possible lymph | | | | | | lttikL90, seven possible | | | | | | lymph qmzmrW83, three | | | | | | [...] + + + + + | [facility] | [address] | [place] [address] | | | PATHOLOGY | [address] [...] | | | | | Starting [facility] 07/27/10 at 0114, | | | [...] | | | | | on [facility] 07/27/10 at 0900, Until | | [...] 11 10:34 | | | | | PREPARATION PLANT SUPERVISOR infusion intravenous, | | PM PST | [...] | | | + +---+ | HYDROmorphone PREPARATION PLANT SUPERVISOR infusion 1 | | | dose, Starting [...] | | | | NEEDED, Starting [facility] 07/27/10 at | | | | [...] | | DAILY, First dose on [facility] 07/27/10 | | PM PST | [...]
--- OUTSIDE RECORDS SUMMARY | ~2019-11-22 | XMS | Encounter Summary ---
Demographics + + + | Address | [address] | | | [place] [address] | + + + | Home Phone [...] Team Providers + +------+ + | Care Business Office Director Name | Role | Phone | + +------+ + | Hay Greco MD | PCP | | + +------+ + Encounter Details +--------+ + + + + | Date | Type | Department | Care Team | Description | +--------+ + + + + | 12/17/ | Hospital | [facility] | Kemal Damian MD | S/P lumbar fusion | | 2018 | Encounter | MED CTR XRAY [address] | [address] | | | | | [address] | [place] [address] | | | | | [place] [address] | [phone] | | | | | [phone] | | | +--------+ + + + [...]
--- OUTSIDE RECORDS SUMMARY | ~2019-11-22 | XMS | Encounter Summary ---
Demographics + + + | Address | [address] | | | [place] [address] | + + + | Home Phone [...] Team Providers + +------+ + | Care Angle Shear Operator Name | Role | Phone | [...] | | [address] | [place] [address] | | | | | [place], [place] | [phone] | | | | | [address] | | | | | | [phone] | | | +--------+ + + + [...]
--- OUTSIDE RECORDS SUMMARY | ~2019-11-22 | XMS | Encounter Summary ---
Demographics + + + | Address | [address] | | | [place] [address] | + + + | Home Phone [...] Providers + +------+ + | Care Pharmacy Operations Coordinator Name | Role | Phone | [...] | | | | [address] | [place] [address] | | | | | [place] | [phone] | | | | | [address] | | | | | | [phone] | | | +--------+ + + + [...] created this entry | | | using [employer] Voice Recognition software and [employer] | | | macros. The entry has [...] has created | | this entry using Cuyana[employer]ognition software and [employer] macros. The | | entry has been reviewed andthere may still exist sound alike word errors. | |mineralization is normal.. | | | |Impression: Status post right reversed total shoulder arthroplasty, with | |good radiographic outcome.. | | | | | |BARBARA MARIE MD | |08/11/2017 | | | |BARBARA MARIE MD has created this entry using [employer] Voice | |Recognition software and [employer] macros. The entry has been reviewed and | |there may still exist sound alike word errors. | | | + + documented in this encounter Visit Diagnoses Not on filedocumented in this encounter"
--- OUTSIDE RECORDS SUMMARY | ~2019-11-22 | XMS | Encounter Summary ---
Demographics + + + | Address | [address] | | | [place] [address] | + + + | Home Phone | | + + + | Preferred Language | Unknown | + + + | Marital Status | | + + + | Synagogue Affiliation | 1077 | + + + | Race | Unknown | + + + | Ethnic Group | Unknown | + + + Author + + + | Author | [facility] | | | and [place] | + + + | Organization | [facility] | | [...] Providers + +------+ + | Care Metal Spray Operator Name | Role | Phone | [...] | | n | (degenerativ | [address] | [facility] | | | | | e disc | [address] | [place], [place] | | | | | disease), | [place], [place] | [address] Phone: | | | | | lumbar | [address] | [phone] | | | | | Facet | Phone: | Fax: | | | | | arthropathy, | [phone] | [phone] | | | | | lumbar | Fax: | | | | | | | [phone] | | +--------+ + + + + + Encounter Details +--------+---------+ + + + | Date | Type | Department | Care Team | Description | +--------+---------+ + + + | 03/07/ | Office | [facility] | Lilli, | Lumbar radicular | | 2017 | Visit | PHYSIATRY [address] | JUNI Gilman [address] | pain (Primary Dx); | | | | [address] | [address] | Spondylolisthesis of | | | | [place], [place] | [place] [address] | lumbar region; DDD | | | | [address] | [phone] | (degenerative disc | | | | [phone] | | disease), lumbar; | | | [...] of the procedure you must provide a tier truck driver to take you home. For all procedur es it is recommended that someone else drive you home. documented in this encounter Progress Notes Kalina Reeder PA-C - 03/07/2017 1:20 PM PDTFormatting of this note might be differe nt from the original. Kalina Reeder PA-C [address] [facility], [address] [place] [address] FAX: PHYSICAL MEDICINE AND REHABILITATION H&P CHIEF [...] Laterality: N/A; Surgeon: Kemal Damian MD; Location: [facility] MAIN OR LUMBAR LAMINECTOMY Dr. Tavarez [...] apparent deficits with short or snf memory. He has appropriate fund of knowledge [...] and approved, we will sent over to [facility]. 2. He has an order for a lumbar CT scan, this will also be sent over to [facility]. 3. Discussed steroid injection, offered him a [...] Transforaminal Epidural Steroid Injections Diagnosis: Lumbar | [facility] | | radiculopathy ICD-10 Code M54.16 Cosmo Johnson presents to the | [facility] | | fluoroscopy suite for fluoroscopically-guided bilateral [...] + + | Performing | Address | City/State/[facility] Cent[facility]ode | Phone Number | | Organization | | | | + + + + + | [address] | [address] | [place], [place] | [phone] | | [facility] | | [address] | | | - IMAGING | | [...]
--- OUTSIDE RECORDS SUMMARY | ~2019-11-22 | XMS | Encounter Summary ---
Demographics + + + | Address | [address] | | | [place] [address] | + + + | Home Phone [...] Team Providers + +------+ + | Care Fiber Optic Splicer Name | Role | Phone | + [...] [address] [place], [place] | [place] [address] | | | 2019 | | [address] | [phone] | | | | | [phone] | | | +--------+ + + + [...] be sent through Care Everywhere.Skin Infection, Cellulitis ([place]izen [place])documented in this encounter Medications at Time of [...] +------+--------+ + + | ED INFORMATION | NIELS | Routin | | 11/20/2019 10:04 PM [...] K?MRN: | | | | | | [id number] | | | [id number] | | | riteri | | | [...] | | | St. | | | [place] | | | y | | | Hospit | | | al | | | Patien | | | t is | | | curren | | | tly | | | establ | | | ished | | | with | | | St | | | [place] | | | y | | | [...] St | | | | | | [place] | | | y | | | [...] | | | DO | | | Speech Language Therapist | | | al | | | [...] + + | [place] [facility] | [address] | [place] | [phone] | | HOSPITAL LAB[facility]ORY | | [address] | | + + + + + [...] + + | [place] [facility] | [address] | [place] | [phone] | | HOSPITAL LAB[facility]ATORY | | [address] | | + + + + + [...] + + | [place] [facility] | [address] | [place], [place] | [phone] | | HOSPITAL LAB[facility]ATORY | | [address] | | + + + + + [...] | mL/min/1.73m2 | [facility] | | | CHAD[facility] | RATE,ESTIMATED | | HOSPITAL | | | | mL/min/1.03g6Rxms than | | LABORATORY | | | [...] + + | [place] [facility] | [address] | [place] | [phone] | | HOSPITAL LAB[facility]ATORY | | [address] | | + + + + + [...] 12.5 (L) | 13.1 - 17.4 | [facility] | | | | | g/dL | [...] + + | [place] [facility] | [address] | [place] | [phone] | | HOSPITAL LAB[facility]ATORY | | [address] | | + + + + + [...]
--- OUTSIDE RECORDS SUMMARY | ~2019-11-22 | XMS | Encounter Summary ---
Demographics + + + | Address | [address] | | | [place] [address] | + + + | Home Phone [...] Team Providers + +------+ + | Care Sociology Adjunct Instructor Name | Role | Phone | [...] | | | | [address] | [place] [address] | | | | | [place], [place] | [phone] | | | | | [address] | | | | | | [phone] | | | +--------+ + + + [...] annette Marieular Davion. . Comparison Exam: 06/09/2018, [facility] | | | orthopedic. Findings: The patient [...] MARIE MD has created this entry using [employer] | | | Recognition software and [employer] macros. The entry has been | | [...] Y. | | . Comparison Exam: 06/09/2018, [facility]. Findings: The patient is status | | [...] has | | created this entry using NegevtechRecognition software and EPIC | | macros. The [...] MARIE MD has created this entry using [employer] | |Recognition software and EPIC macros. The entry has been reviewed and | |there may still exist sound alike word errors. | | | + + documented in this encounter Visit Diagnoses Not on filedocumented in this encounter"
--- OUTSIDE RECORDS SUMMARY | ~2019-11-22 | XMS | Encounter Summary ---
Demographics + + + | Address | [address] | | | [place] [address] | + + + | Home Phone [...] Providers + +------+ + | Care Assembler Corncob Pipes Name | Role | Phone | + [...] | [place], [place] | [place] [address] | | | | | [address] | [phone] | | | | | [phone] | | | +--------+ + + + [...]
--- OUTSIDE RECORDS SUMMARY | ~2019-11-22 | XMS | Clinical Summary ---
Demographics + + + | Address | [address] | | | [place] [address] | + + + | Home Phone [...] Team Providers + +------+ + | Care Paver Layer Name | Role | Phone | + [...] automatically from request for surgery | | [id number] | + + + + + | S/P spinal fusion | 05/21/2019 | + + + + + | Overview: Added automatically from request for surgery | | [id number] | + + + + + | Failed back syndrome | 05/21/2019 | + + + + + | Overview: Added automatically from request for surgery | | [id number] | + + + + + | [...] + + + + + | Overview: [id number]: GFR 40's - 50's (limited data) | [...] + + + | Overview: chemo, radiation, [id number]- Ileostomy Or | | [id number] - Rectal adenocarcinoma; Ileostomy takedown | | [...] automatically from request for surgery | | [id number] | + + + + + + | Failed back syndrome | 05/21/20 | | | | 19 | 9 | + + + + + + | Overview: Added automatically from request for surgery | | [id number] | + + + + + + [...] | + +--------+--------+ +--------+--------+--------+ | Impl Spn [place] Decade 5.5x45mm | [place] | | NUVASIVE - | | | [id number] | | - SnaImplanted: Qty: 2 on | | | NVSV | | | 5 /NA | | 06/19/2017 by Kemal Damian, | | | | | | /NA | | MD at [facility] | | | | | | | | [facility] | | | | | | | + +--------+--------+ +--------+--------+--------+ | Impl Spn [place] Decade 5.0x40mm | [place] | | NUVASIVE - | | | [id number] | | - SnaImplanted: Qty: 2 on | | | NVSV | | | 0 /NA | | 06/19/2017 by Kemal Damian, | | | | | | /NA | | at [facility] | | | | | | | | [facility] | | | | | | | + +--------+--------+ +--------+--------+--------+ | Putty Bone Db Grftn 0.5cc - | Bone | | [employer] - | | 04/07/ | [id number] | | [id number]: Qty: 1 | | | MEDT | | 2020 | | | on 06/19/2017 by Kemal Damian | | | | | | /[id number] | | MD [place] at [facility] | | | | | | 5-066 | | [facility] | | | | | | / | + +--------+--------+ +--------+--------+--------+ | Imp Spn Intbdy Xlw | Generi | | NUVASIVE - | | | [id number] | | [id number] - SnaImplanted: | c | | NVSV | | | 5 /NA | | Qty: 1 on 06/19/2017 by Rickie, | | | | | | /NA | | Kemal Rolon MD at [facility] | | | | | | | | [facility] | | | | | | | + +--------+--------+ +--------+--------+--------+ | Impl Spn Plt Decade 4hl Sz12 | Generi | | NUVASIVE - | | | [id number] | | - SnaImplanted: Qty: 1 on | c | | NVSV | | | 2 /NA | | 06/19/2017 by Kemal Damian, | | | | | | /NA | | at [facility] | | | | | | | | [facility] | | | | | | | + +--------+--------+ +--------+--------+--------+ | Graft Infuse Bone Kit Xs - | Graft | | [employer] - | | 07/14/ | [id number] | | SnaImplanted: Qty: 1 on | | | MEDT | | 2018 | 0 /NA | | 06/19/2017 by Kemal Damian, | | | | | | /[id number] | | at [facility] | | | | | | 29AAM | | [facility] | | | | | | | + +--------+--------+ +--------+--------+--------+ | Putty Rossy 5cc Dbm - | Graft | | [employer] - | | 12/25/ | [id number] | | [id number]: Qty: 1 | | | MEDT | | 2020 | /[id number] | | on 06/19/2017 by Kemal Damian | | | | | | 6-032 | | MD Gonzales at [facility] | | | | | | / | | [facility] | | | | | | [...] MD | | | | | | /[id number] | | | | | | | | 764 | + +--------+--------+ +--------+--------+--------+ | Kate Tovar 10 Cc - | | Perfect Binder Feeder Offbearer | KENDAL - | | 06/15/ | [id number] | | [id number]: Qty: 1 | | ior: | OSTT | | 2015 | | | on 10/22/2013 by Kemal Damian | | Spine | | | | /[id number] | | MD [place] at [facility] | | Lumbar | | | | 9-183 | | [facility] | | | | | | / | + +--------+--------+ +--------+--------+--------+ | Bone Matrix Osteocel Plus 5cc | | Perfect Binder Feeder Offbearer | NUVASIVE - | | 04/17/ | [id number] | | - [id number]: Qty: | | ior: | NVSV | | 2018 | 5 | | 1 on 10/22/2013 by Kemal Damian | | Spine | | | | /[id number] | | MD Gonzales at [facility] | | Lumbar | | | | 4519 / | | [facility] | | | | | | | + +--------+--------+ +--------+--------+--------+ | Cage Peek Lo X35mm 5 Coroent | | N/A: | NUVASIVE - | | | [id number] | | - [id number]: Qty: 2 | | Spine | NVSV | | | 2 / / | | on 10/22/2013 by Kemal Damian | | Lumbar | | | | | | MD Gonzales at [facility] | | | | | | | | [facility] | | | | | | | + +--------+--------+ +--------+--------+--------+ | Nuvasive Screw 7.5 X | | N/A: | | | | [id number] | | 55Implanted: Qty: 4 on | | Spine | | | | 5A / / | | 10/22/2013 by Kemal Damian, | | Lumbar | | | | | | MD at [facility] | | | | | | | | [facility] | | | | | | | + +--------+--------+ +--------+--------+--------+ | Derick Ti Prebent Lordtc 70mm - | | N/A: | NUVASIVE - | | | [id number] | | [id number]: Qty: 2 on | | Spine | NVSV | | | 0 / / | | 10/22/2013 by Kemal Damian, | | Lumbar | | | | | | MD at [facility] | | | | | | | | [facility] | | | | | | | + +--------+--------+ +--------+--------+--------+ | Screw Polyax Precept 6.5x55 - | | | NUVASIVE - | | | [id number] | | [id number]: Qty: 4 | | | NVSV | | | 5A / / | | on 10/22/2013 at [facility] | | | | | | | | [facility] | | | | | | | | CENTER | | | | | | | + +--------+--------+ +--------+--------+--------+ | Screw Set - | | | NUVASIVE - | | | [id number] | | [id number]: Qty: 6 on | | | NVSV | | | 0 / / | | 10/22/2013 at [facility] | | | | | | | | [facility] | | | | | [...] /N/A | | Geraldo Dougherty MD at [facility] | | ic | | | | /[id number] | | [facility] | | | | | | 74 | | CENTER | | | | | | | + +--------+--------+ +--------+--------+--------+ | Ipg Kit Scs Nevro - | | Left: | NEVRO BLANKA | | 02/10/ | [id number] | | [id number]: Qty: 1 on | | Spine | - NVRO | | 2020 | 00 | | 06/18/2019 by Kali, | | Thorac | | | | /[id number] | | Geraldo Dougherty MD at [facility] | | ic | | | | | | [facility] | | | | | | /[id number] | | CENTER | | | | [...] /N/A | | Geraldo Dougherty MD at [facility] | | ic | | | | /[id number] | | [facility] | | | | | | [...] /N/A | | Geraldo Dougherty MD at [facility] | | ic | | | | /[id number] | | [facility] | | | | | | 004 | | [place] | | | | | | | [...] K?MRN: | | | | | | [id number] | | | [id number] | | | riteri | | | [...] | | | St. | | | [facility] | | | y | | | Hospit | | | al | | | Patien | | | t is | | | curren | | | tly | | | establ | | | ished | | | with | | | St | | | [place] | | | y | | | [...] St | | | | | | [place] | | | y | | | [...] | | | DO | | | Web Applications Architect | | | al | | | [...] + + | [place] [facility] | [address] | [place], [place] | [phone] | | HOSPITAL LABORATORY | | [address] | | + + + + + [...] + + | [place] [facility] | [address] | [place] | [phone] | | HOSPITAL LAB[facility]ORY | | [address] | | + + + + + [...] + + | [facility] [facility] | [address] | [place] | [phone] | | HOSPITAL LAB[facility]ATORY | | [address] | | + + + + + [...] + + | [facility] [facility] | [address] | [place] | [phone] | | HOSPITAL LAB[facility]ATORY | | [address] | | + + + + + [...] | mL/min/1.73m2 | [facility] | | | [place] | RATE,ESTIMATED | | HOSPITAL | | | | mL/min/1.53p5Uzmu than | | LABORATORY | | | [...] + + | [facility] [facility] | [address] | [place] | [phone] | | HOSPITAL LAB[facility]ATORY | | [address] | | + + + + + [...] +--------+ +---------+--------+ | MEDICARE | MEDICA | [id number] | | [phone] | | Medica | | | RE | | 009-Pr | 5 | | re | | | PART A | | esent | | | | | | AND B | | | | | | + +--------+ +--------+ +---------+--------+ | MEDICARE | MEDICA | [id number] | | [phone] | | Medica | | | RE | | 009-Pr | 5 | | re | | | PART A | | esent | | | | | | AND B | | | | | | + +--------+ +--------+ +---------+--------+ | BCBS | BCBS | [id number] | 07/15/19 | | | PPO | | | FEDERA | | 19-Pre | | | | | | L FEP | | sent | | | | + +--------+ +--------+ +---------+--------+ | BCBS | BCBS | [id number] | 07/15/19 | | | PPO | [...] Person | Self | [birth year] | [address] | | | al/Kofi | | 1945 | [phone] | Rd [place] | | | aye | | | 6 (Home) | [address] | + +--------+ +--------+ + + | Tylor Johnson | Person | Self | [birth year] | | [address] | | | al/Fam | | 1945 | [phone] | Rd [place] | | | aye | | | 6 ([place]) | [address] | + +--------+ +--------+ + + Advance Directives + + + + + | Type | Date Recorded | Patient | Explanation | | | | Asbestos Textile Supervisor | | + + + + + | Power of | | | Not sure per pt & [id number] | | Mail Room Clerk | | | | + + + [...]
--- OUTSIDE RECORDS SUMMARY | ~2019-11-22 | XMS | Encounter Summary ---
Demographics + + + | Address | [address] | | | [place] [address] | + + + | Home Phone | | + + + | Preferred Language | Unknown | + + + | Marital Status | | + + + | Caodaism Affiliation | 1077 | + + + | Race | Unknown | + + + | Ethnic Group | Unknown | + + + Author + + + | Author | [facility] | | | and [place] | + + + | Organization | [facility] | [...] Team Providers + +------+ + | Care Physical Security Specialist Name | Role | Phone | [...] | | [address] | [place] [address] | | | | | [place] | [phone] | | | | | [address] | | | | | | [phone] | | | +--------+---------+ + + + [...] from t arturo original. Kemal Damian MD [address] [place] [address], [address] [place] [address] FAX: NEUROSURGERY FOLLOW-UP CHIEF COMPLAINT: Chief Complaint [...] + + | Performing | Address | City[facility] | Phone Number | | Organization | | | | + +---------+ + + | [facility] | | | | + +---------+ + + documented in this encounter Visit Diagnoses + + | Diagnosis | + + | S/P lumbar fusion - Primary Arthrodesis status | + + documented in this encounter
--- OUTSIDE RECORDS SUMMARY | ~2019-11-22 | XMS | Encounter Summary ---
Demographics + + + | Address | [address] | | | [place] [address] | + + + | Home Phone [...] Providers + +------+ + | Care Metal Painter Name | Role | Phone | + [...] [address] | | | | | [place], [place] | [place] [address] | | | | | [address] | [phone] | | | | | [phone] | | | +--------+ + + + [...]
--- OUTSIDE RECORDS SUMMARY | ~2019-11-22 | XMS | Encounter Summary ---
Demographics + + + | Address | [address] | | | [place] [address] | + + + | Home Phone | | + + + | Preferred Language | Unknown | + + + | Marital Status | | + + + | Anabaptist Affiliation | 1077 | + + + [...] Team Providers + +------+ + | Care Post Office Clerk Name | Role | Phone | [...] [address] [place] | | | | | [place], [place] | [place] [address] | | | | | [address] | [phone] | | | | | [phone] | | | +--------+ + + + [...]
--- OUTSIDE RECORDS SUMMARY | ~2019-11-22 | XMS | Encounter Summary ---
Demographics + + + | Address | [address] | | | [place] [address] | + + + | Home Phone [...] + | Ricarda Johnson | ECON | [address] | | | | | [place] | | | | | [address] | | + + + + + Care Team Providers + +------+ + | Care Brick Stacker Name | Role | Phone | + +------+ + | Hay Greco MD | PCP | | + +------+ + Encounter Details +--------+------+ + + + | Date | Type | Department | Care Team | Description | +--------+------+ + + + | 07/25/ | Lab | Laboratory at [facility] | | Pre-op evaluation; | | 2010 | | [address] | | Screening for | | | | [place], [place] | | diabetes mellitus; | | | | [address] | | Malignant neoplasm | | | | [phone] | | of rectum (HCC) | +--------+------+ [...] DEPARTMENT OF | [address] | [place] [address] | | | PATHOLOGY | [address] [...] | + + + + + | [facility] | [address] | [place] [address] | | | PATHOLOGY | [address] [...] by | | | | | | [employer], | | | | | | | | | | | | [address] | | | | | | [place] | | | | | | [address] | | | | | | | | | | | | [email or web address], | | | | | | Rebeca [...] [facility] | [address] | [place], [place] | | | [facility] | | [address] | | + + + + + [...] | + + + + + | [facility] | [address] | [place] [address] | | | PATHOLOGY | [address] [...] | + + + + + | [facility] | [address] [facility] | [place] [address] | | | PATHOLOGY | [address] [...] | | | DEPARTMENT | | | [place] | | | OF | | | [...] | + + + + + | [facility] DEPARTMENT | [address] | [place] [address] | | | PATHOLOGY | [address] [...] RLB ([facility]) | | | [facility] [address] | | | [place] [address] | | + + + + + + + + | Performing | Address | City/State/Zipcode | Phone Number | | Organization | | | | + + + + + | [facility] | [address] | [place] [address] | | | LABORATORY | | | [...]
--- OUTSIDE RECORDS SUMMARY | ~2019-11-22 | XMS | Encounter Summary ---
Demographics + + + | Address | [address] | | | [place] [address] | + + + | Home Phone | | + + + | Preferred Language | Unknown | + + + | Marital Status | | + + + | Episcopal Affiliation | PRE | + + + [...] + | Ricarda Johnson | ECON | [address] | | | | | [place] | | | | | [address] | | + + + + + Care Team Providers + +------+ + | Care Coal Mill Operator Name | Role | Phone | + +------+ + | Hay Greco MD | PCP | | + +------+ + Encounter Details +--------+ + + + + | Date | Type | Department | Care Team | Description | +--------+ + + + + | 03/05/ | Abstract | [facility] | Edgar Hampton, | | | 2011 | | [place] [facility] [address] | [address] | | | | | Debbie Mock | [address] | | | | | Mailcode: Center | [place], [place] | | | | | for Health and | [address] | | | | | [facility] | [phone] | | | | | [place], [place] | | | | | | [address] | | | | | | [phone] | | | +--------+ + + + [...]
--- OUTSIDE RECORDS SUMMARY | ~2019-11-22 | XMS | Encounter Summary ---
Demographics + + + | Address | [address] | | | [place] [address] | + + + | Home Phone [...] Providers + +------+ + | Care Furniture Manager Name | Role | Phone | [...] | | | | S/P lumbar | [address] | | | | | | fusion | Phone: | | | | | | Procedures | [phone] | | | | | | IR Pain | Fax: | | | | | | Management/S | [phone] | | | | | | keletal [...] | | | [place], [place] | [address] | (Primary Dx); S/P | | | | [address] | | lumbar fusion | | | | [phone] | | | +--------+ + + + [...] my direction according to | | | [facility] conscious sedation protocol. The area for [...] + + | Performing | Address | City/State[facility] | Phone Number | | Organization [...]
--- OUTSIDE RECORDS SUMMARY | ~2019-11-22 | XMS | Encounter Summary ---
Demographics + + + | Address | [address] | | | [place] [address] | + + + | Home Phone | | + + + | Preferred Language | Unknown | + + + | Marital Status | | + + + | Alevism Affiliation | PRE | + + + | Race | White | + + + | Ethnic Group | Not or | + + + Author + + + | Author | [facility] | + + + | Organization | [facility] | + + + | Address | Unknown | + + + | Phone | Unavailable | + + + Support + + + + + | Name | Relationship | Address | Phone | + + + + + | Ricarda Johnson | ECON | [address] | | | | | [place] | | | | | [address] | | + + + + + Care Team Providers + +------+ + | Care Sqe Name | Role | Phone | + [...] [address] | | | | | at [facility] | [facility] | | | | | [address] | [place] [address] | | | | | [address] | | | | | | [place], [address] [place] [address] | | | | | | [place], [place] | | | | | | [address] | | | | | | [phone] | | | +--------+ + + + [...] | | | | | LUIZA HYDE ([id number]) | | | | | | on 07/26/2010 12:12:45 PM | | | | + + + + + + + + | Specimen | + + | | + + + + + | Narrative | Performed At | + + + | Please click | [facility] | | on view image for the detailed interpretation from [employer] results. | CARDIOLOGY | + + + + + + + + | Performing | Address | City/State/Zipcode | Phone Number | | Organization | | | | + + + + + | [facility] | [address] | [place], [place] | | | CARDIOLOGY | [address] | [address] | | + + + + + documented in this encounter Visit Diagnoses Not on filedocumented in this encounter
--- OUTSIDE RECORDS SUMMARY | ~2019-11-22 | XMS | Encounter Summary ---
Demographics + + + | Address | [address] | | | [place] [address] | + + + | Home Phone [...] Providers + +------+ + | Care Wheel And Pinion Inspector Name | Role | Phone | + +------+ + | Hay Greco MD | PCP | | + +------+ + Encounter Details +--------+ + + + + | Date | Type | Department | Care Team | Description | +--------+ + + + + | 06/04/ | Preadmit | [facility] | Kemal Damian MD | Preoperative | | 2017 | Visit | MED CTR PREADMIT | [address] | clearance (Primary | | | | CLINIC [address] | [place] [place] [address] | Dx); Spinal stenosis | | | | [place] | [phone] | of lumbar region, | | | | [address] | | unspecified whether | | | [...] [address] | [place] | [phone] | | [facility] | | [address] | | | - LABORATORY | | [...] 0.60 - 1.30 | [facility] | | | | | mg/dL | [facility] | | | | | | MEDICAL | | | | | | CENTER - | | | | | | LABORATORY | | + + + + + + | eGFR if not | 48 (L)Comment: | >=60 | [facility] | | | | GLOMERULAR FILTRATION | mL/min/1.73m2 | [facility] | | | [place] | RATE,ESTIMATED | | MEDICAL | | | | mL/min/1.26o0Obpg than | | CENTER - | | [...] [address] | [place] | [phone] | | [facility] | | [address] | | | - LABORATORY | | [...] [address] | [place] | [phone] | | [facility] | | [address] | | | - LABORATORY | | [...] [place] | | | | | | ([id number]) on 06/05/2017 | | | | | [...]
--- OUTSIDE RECORDS SUMMARY | ~2019-11-22 | XMS | Encounter Summary ---
Demographics + + + | Address | [address] | | | [place] [address] | + + + | Home Phone [...] + | Ricarda Johnson | ECON | [address] | | | | | [place] | | | | | [address] | | + + + + + Care Team Providers + +------+ + | Care Dialysis Technician Name | Role | Phone | + +------+ + | Hay Greco MD | PCP | | + +------+ + Encounter Details +--------+ + + + + | Date | Type | Department | Care Team | Description | +--------+ + + + + | 08/20/ | Abstract | Digestive Health | Edgar Hampton, | | | 2011 | | [place] at [facility] [address] | [address] | | | | | Debbie Mock | [address] | | | | | Mailcode: Center | [place], [place] | | | | | for Health and | [address] | | | | | [facility], [facility] 2 | [phone] | | | | | [place], [place] | | | | | | [address] | | | | | | [phone] | | | +--------+ + + + [...]
--- OUTSIDE RECORDS SUMMARY | ~2019-11-22 | XMS | Encounter Summary ---
Demographics + + + | Address | [address] | | | [place] [address] | + + + | Home Phone [...] Providers + +------+ + | Care Manager Chemistry Name | Role | Phone | + [...] | Lumbar | [place], | [address] | | | | | spondylosis | Pj T MD | [place], | | | | | Procedures | [address] | [place] | | | | | [place] INJECT | [place] | [address] | | | | | ANES/STEROID | [place] | Phone: | | | | | FORAM[place] | [address] | [phone] | | | | | LUMBAR/SACRA | Phone: | Fax: | | | | | [address] | [phone] | [phone] | | | | | GUIDE ,1 | Fax: | | | | | | [place] | [phone] | | | | | | INJECT [...] + + | 09/25/ | Hospital | [facility] | Pj Riggs | Lumbar spondylosis; | | 2019 | Encounter | MED CTR XRAY [address] | T, [address] | Chronic bilateral | | | | [address] [place] | [place] | low back pain | | | | [place] [address] | [address] | without sciatica | | | | [phone] | | | | | | | [facility] | | | | | | [...] | | | | | Other, ONCE, [facility] 09/25/18 at 1600, | | PM PDT [...]
--- OUTSIDE RECORDS SUMMARY | ~2019-11-22 | XMS | Encounter Summary ---
Demographics + + + | Address | [address] | | | [place] [address] | + + + | Home Phone [...] + | Ricarda Johnson | ECON | [address] | | | | | [place] | | | | | [address] | | + + + + + Care Team Providers + +------+ + | Care Staffing Recruiter Name | Role | Phone | + [...] | | | | Mailcode: Center | [place], [place] | | | | | for Health and | [address] | | | | | Healing, Building 2 | [phone] | | | | | [place], [place] | | | | | | [address] | | | | | | [phone] | | | +--------+ + + + [...]
--- OUTSIDE RECORDS SUMMARY | ~2019-11-22 | XMS | Encounter Summary ---
Demographics + + + | Address | [address] | | | [place] [address] | + + + | Home Phone | | + + + | Preferred Language | Unknown | + + + | Marital Status | | + + + | Baptism Affiliation | 1077 | + + + | Race | Unknown | + + + | Ethnic Group | Unknown | + + + Author + + + | Author | [facility] | | | and [place] | + + + | Organization | [facility] | | [...] Providers + +------+ + | Care Senior Front End Developer Name | Role | Phone | [...] | | | | | Spinal | [address] | | | | | | stenosis of | Phone: | | | | | | lumbar | [phone] | | | | | | region with | Fax: | | | | | | neurogenic | [phone] | | | | | | claudication [...] + + | 11/18/ | Office | [facility] | Kirk Javier | Spondylolisthesis of | | 2013 | Visit | NEUROSURGERY [address] | [address] | lumbar region | | | | [address] | [address] | (Primary Dx); Spinal | | | | [place], [place] | [place] [address] | stenosis of lumbar | | | | [address] | [phone] | region with | | | | [phone] | | neurogenic | | | | [...] your back and use good technique when forklift picker things and bending. Electronica lly signed by TRENT Mai at 11/18/2013 11:15 AM PDT documented in this encounter Progress Notes Kirk Javier PA - 11/18/2013 11:17 AM PDTFormatting of this note might be differen t from the original. TRENT Vicente [address] [facility], [address] [place], [place] [id number] FAX: NEUROSURGERY SURGICAL FOLLOW-UP CHIEF COMPLAINT: Chief Complaint Patient presents with Follow-up 4 week PO HISTORY OF PRESENT ILLNESS: The patient is a 68 y.o. male that had a lumbar fusion by Dr. sotomayor for spondylolisthesis and neurogenic claudication around 4 weeks ago. He returns and nik omalley is doing well. The patient complains [...] 325 mg by mouth Daily. Prn pain Yzsxoqabc-Qmxwmlkklqk-Qlq D (GLUCOSAMINE COMPLEX PO) Take 2 tablets [...] + | MISCELLANEOUS LAB | | | [phone] | + +---------+ + + | MISCELANIOUS LAB | | | [phone] | + +---------+ + + documented in [...]
--- OUTSIDE RECORDS SUMMARY | ~2019-11-22 | XMS | Encounter Summary ---
Demographics + + + | Address | [address] | | | [place] [address] | + + + | Home Phone [...] + +------+ + | Care Patient Care Secretary Name | Role | Phone | [...] | | [address] | [place] [address] | | | | | [place], [place] | [phone] | | | | | [address] | | | | | | [phone] | | | +--------+ + + + [...]
--- OUTSIDE RECORDS SUMMARY | ~2019-11-22 | XMS | Encounter Summary ---
Demographics + + + | Address | [address] | | | [place] [address] | + + + | Home Phone [...] Team Providers + +------+ + | Care Sealer Aircraft Name | Role | Phone | + [...] [address] | [address] | | | | | [place], [place] | [place], [place] | | | | | [address] | [address] | | | | | [phone] | | | +--------+---------+ + + + [...] encounter Patient Instructions Patient Instructions Dulce Thakur, Parking Meter Mechanic - 07/22/2017 9:15 AM ROYAYobeti may no w slowly increase your lifting up to 15 pounds as tolerated. You may now reach overhead but it should only be 1-2 pounds. Please refrain from twisting for the next 8 weeks. Lastly, you will see Dr. Damain in approximately 2 months where a new [...] your back and use good technique when nut picker things and bending. documented in this encounter Progress Notes Carlos Armstrong PA-C - 07/22/2017 9:15 AM PSTFormatting of this note might be diffe rent from the original. Carlos Armstrong PA-C [address] [facility], [address] [place], [place] [id number] FAX: NEUROSURGERY FOLLOW-UP CHIEF COMPLAINT: Chief Complaint [...] for a shoulder replacement in the near [facility] re. We discussed that we can provide [...]
--- OUTSIDE RECORDS SUMMARY | ~2019-11-22 | XMS | Encounter Summary ---
Demographics + + + | Address | [address] | | | [place] [address] | + + + | Home Phone [...] + + | Author | [facility] | + + + | Organization | [facility] | + + + | Address | Unknown | + + + | Phone | Unavailable | + + + Support + + + + + | Name | Relationship | Address | Phone | + + + + + | Ricarda Johnson | ECON | [address] | | | | | [place] | | | | | [address] | | + + + + + Care Team Providers + +------+ + | Care Wheelabrator Operator Name | Role | Phone | + +------+ + | Hay Greco MD | PCP | | + +------+ + Encounter Details +--------+ + + + + | Date | Type | Department | Care Team | Description | +--------+ + + + + | 10/21/ | Telephone | Digestive Health | Edgar Hampton, | | | 2011 | | [place] at [facility] [address] | [address] | | | | | Debbie Mock | [address] | | | | | Mailcode: Center | [place], [place] | | | | | for Health and | [address] | | | | | [facility], [facility] 2 | [phone] | | | | | [place], [place] | | | | | | [address] | | | | | | [phone] | | | +--------+ + + + [...]
--- OUTSIDE RECORDS SUMMARY | ~2019-11-22 | XMS | Encounter Summary ---
Demographics + + + | Address | [address] | | | [place] [address] | + + + | Home Phone [...] Providers + +------+ + | Care Supervisor Cytogenetic Laboratory Name | Role | Phone | [...] | 06/09/ | Telephone | [facility] | Kemal Damian MD | Other ( | | 2012 | | NEUROSURGERY [address] | [address] | [place] | | | | [address] | [place] [address] | injection) | | | | [place] | [phone] | | | | | [address] | | | | | | [phone] | | | +--------+ + + + [...]
--- OUTSIDE RECORDS SUMMARY | ~2019-11-22 | XMS | Encounter Summary ---
Demographics + + + | Address | [address] | | | [place] [address] | + + + | Home Phone | | + + + | Preferred Language | Unknown | + + + | Marital Status | | + + + | Moravian Affiliation | PRE | + + + | Race | White | + + + | Ethnic Group | Not or | + + + Author + + + | Author | [facility] | + + + | Organization | [facility] | + + + | Address | Unknown | + + + | Phone | Unavailable | + + + Support + + + + + | Name | Relationship | Address | Phone | + + + + + | Ricarda Johnson | ECON | [address] | | | | | [place] | | | | | [address] | | + + + + + Care Team Providers + +------+ + | Care Top Precipitator Operator Helper Name | Role | Phone | [...] | rectum (HCC) | [address] | [place] | | | | | Procedures | [address] | [address], [address] | | | | | CONSULT TO | [place], [place] | floor | | | | | GI | [address] | [facility] [place] | | | | | PROCEDURE | Phone: | [phone] | | | | | UNIT: | [phone] | Phone: | | | | | FLEXIBLE | Fax: | [phone] | | | | | SIGMOIDOSCOP | [phone] | Fax: | | | | | Y | | | + +--------+ + + + + Encounter Details +--------+ + + + + | Date | Type | Department | Care Team | Description | +--------+ + + + + | 04/25/ | Community Facilitator | Digestive Health | Edgar Hampton, | 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
--- OUTSIDE RECORDS SUMMARY | ~2019-11-22 | XMS | Encounter Summary ---
Demographics + + + | Address | [address] | | | [place] [address] | + + + | Home Phone [...] + | Ricarda Johnson | ECON | [address] | | | | | [place] | | | | | [address] | | + + + + + Care Team Providers + +------+ + | Care Chairman & Co Founder Name | Role | Phone | + [...] | [facility] | [address] P[address] | | | | | [address] | [address] | | | | | Loop Physician's | [place], [place] | | | | | Brian, [facility] floor | [address] | | | | | [place], [place] | [phone] | | | | | [address] | | | | | | [phone] | | | +--------+ + + + [...]
--- OUTSIDE RECORDS SUMMARY | ~2019-11-22 | XMS | Encounter Summary ---
Demographics + + + | Address | [address] | | | [place] [address] | + + + | Home Phone [...] + + | Author | [facility] | + + + | Organization | [facility] | + + + | Address | Unknown | + + + | Phone | Unavailable | + + + Support + + + + + | Name | Relationship | Address | Phone | + + + + + | Ricarda Johnson | ECON | [address] | | | | | [place] | | | | | [address] | | + + + + + Care Team Providers + +------+ + | Care Eap Specialist Name | Role | Phone | [...] | 2011 | on | Center at [facility] [address] | [address] [facility] | (GI Oncology | | | | Debbie Mock | [address] | Conference | | | | Mailcode: Munith | [place], [place] | Recommendations) | | | | for Health and | [address] | | | | | [facility] 2 | [phone] | | | | | [place], [place] | | | | | | [address] | | | | | | [phone] | | | +--------+ + + + [...]
--- OUTSIDE RECORDS SUMMARY | ~2019-11-22 | XMS | Encounter Summary ---
Demographics + + + | Address | [address] | | | [place] [address] | + + + | Home Phone [...] Team Providers + +------+ + | Care Chopping Machine Operator Name | Role | Phone | + +------+ + | Hay Greco MD | PCP | | + +------+ + Encounter Details +--------+ + + + + | Date | Type | Department | Care Team | Description | +--------+ + + + + | 09/13/ | Hospital | [facility] | Carlos Armstrong | S/P lumbar fusion | | 2018 | Encounter | MED CTR XRAY [address] | D, PA-C [address] | | | | | [place] | [address] | | | | | [place] [address] | [place], [place] | | | | | [phone] | [address] | | | | | | | [...]
--- OUTSIDE RECORDS SUMMARY | ~2019-11-22 | XMS | Encounter Summary ---
Demographics + + + | Address | [address] | | | [place] [address] | + + + | Home Phone | | + + + | Preferred Language | Unknown | + + + | Marital Status | | + + + | Adventism Affiliation | 1077 | + + + | Race | Unknown | + + + | Ethnic Group | Unknown | + + + Author + + + | Author | [facility] | | | and [place] | + + + | Organization | [facility] | | | [...] Team Providers + +------+ + | Care Cadence Specialists Name | Role | Phone | + [...] Provider Unknown | | | | | [place], [place] | [phone] | | | | | [address] | | | | | | [phone] | | | +--------+ + + + [...]
--- OUTSIDE RECORDS SUMMARY | ~2019-11-22 | XMS | Encounter Summary ---
Demographics + + + | Address | [address] | | | [place] [address] | + + + | Home Phone | | + + + | Preferred Language | Unknown | + + + | Marital Status | | + + + | Episcopalian Affiliation | 1077 | + + + [...] Team Providers + +------+ + | Care Powder Coater Name | Role | Phone | + [...] | | [address] | [place] [address] | | | | | [place] | [phone] | | | | | [address] | | | | | | [phone] | | | +--------+ + + + [...]
--- OUTSIDE RECORDS SUMMARY | ~2019-11-22 | XMS | Encounter Summary ---
Demographics + + + | Address | [address] | | | [place] [address] | + + + | Home Phone [...] + | Ricarda Johnson | ECON | [address] | | | | | [place] | | | | | [address] | | + + + + + Care Team Providers + +------+ + | Care Oxygen Furnace Operator Name | Role | Phone | + +------+ + | Hay Greco MD | PCP | | + +------+ + Encounter Details +--------+ + + + + | Date | Type | Department | Care Team | Description | +--------+ + + + + | 04/02/ | Abstract | Digestive Health | Edgar Hampton, | | | 2012 | | [place] at [facility] [address] | [address] | | | | | De[address] Mock | [address] | | | | | Mailcode: Center | [place], [place] | | | | | for Health and | [address] | | | | | [facility], [facility] 2 | [phone] | | | | | [place], [place] | | | | | | [address] | | | | | | [phone] | | | +--------+ + + + [...]
--- OUTSIDE RECORDS SUMMARY | ~2019-11-22 | XMS | Encounter Summary ---
Demographics + + + | Address | [address] | | | [place] [address] | + + + | Home Phone | | + + + | Preferred Language | Unknown | + + + | Marital Status | | + + + | Scientology Affiliation | 1077 | + + + | Race | Unknown | + + + | Ethnic Group | Unknown | + + + Author + + + | Author | [facility] | | | and [place] | + + + | Organization | [facility] | | [...] Team Providers + +------+ + | Care Hard Rock Miner Name | Role | Phone | + [...] | | | lumbar | [place], | [address] Phone: | | | | | region | [place] | [phone] | | | | | Facet | [address] | Fax: | | | | | arthropathy, | Phone: | [phone] | | | | | lumbar | [phone] | | | | | | Lumbar | Fax: | | | | | | radicular | [phone] | | | | | | pain | | | + + + + + + + Encounter Details +--------+---------+ + + + | Date | Type | Department | Care Team | Description | +--------+---------+ + + + | 03/25/ | Office | [facility] [place] | Mariana Escamilla | Lumbar radiculopathy | | 2019 | Visit | PHYSIATRY [address] | [address] | (Primary Dx); S/P | | | | [address] | [address] | lumbar fusion; | | | | [place] | [address] [place] | Spinal stenosis of | | | | [address] | [address] | lumbar region | | | | [phone] | | without neurogenic | | | [...] PDT1. Please plan to ask your [employer] premium service representative your questions on restrictions so that you understand them we ll. documented in this encounter Progress Notes Mariana Escamilla PA-C - 03/25/2019 10:30 AM PDTFormatting of this note might be diffe rent from the original. . Ayaka Escamilla PA-C [address] [facility], [address] [place] [address] FAX: CHIEF COMPLAINT: Chief Complaint Patient presents [...] Laterality: N/A; Surgeon: Kemal Damian MD; Location: [facility] MAIN OR LUMBAR LAMINECTOMY Dr. Tavarez LUMBAR SPINE SURGERY N/A 06/19/2017 Procedure: L1-2 LAIF w/ Lateral Plating; Surgeon: Kemal Damian MD; Location: [facility] MAIN OR SMALL INTESTINE SURGERY 2011 [...] no apparent deficits with short or termite renewal inspector memory. Cranial nerves 2-12 appear grossly intact. [...]
--- OUTSIDE RECORDS SUMMARY | ~2019-11-22 | XMS | Encounter Summary ---
Demographics + + + | Address | [address] | | | [place] [address] | + + + | Home Phone | | + + + | Preferred Language | Unknown | + + + | Marital Status | | + + + | Latter Day Affiliation | 1077 | + + + | Race | Unknown | + + + | Ethnic Group | Unknown | + + + Author + + + | Author | [facility] | | | and [place] | + + + | Organization | [facility] [...] Team Providers + +------+ + | Care Conference Concierge Name | Role | Phone | + [...] + + | 03/25/ | Hospital | [facility] | Pj iRggs | | | 2019 | Encounter | MED CTR IR INTRA OP | MD Lucrecia [address] | | | | | [address] | [place] | | | | | [place] | [address] | | | | | [address] | | | | | | [phone] | | | +--------+ + + + [...] You can't be awakened Date Last Reviewed: 05/01/201619995546-5097 [facility]. [address] [place] [address], [place] [address]. All righ ts reserved. This information is [...] PM | Nevro | | | THORACIC ([id number]) | | PDT | | | + [...]
--- OUTSIDE RECORDS SUMMARY | ~2019-11-22 | XMS | Encounter Summary ---
Demographics + + + | Address | [address] | | | [place] [address] | + + + | Home Phone [...] + | Ricarda Johnson | ECON | [address] | | | | | [place] | | | | | [address] | | + + + + + Care Team Providers + +------+ + | Care Parks And Recreation Worker Name | Role | Phone | + +------+ + | Hay Greco MD | PCP | | + +------+ + Encounter Details +--------+ + + + + | Date | Type | Department | Care Team | Description | +--------+ + + + + | 05/14/ | Hospital | Dermatopathology | | | | 2011 | Encounter | [address] | | | | | | Mailcode: CH16D | | | | | | [facility] | | | | | | and Healing, | | | | | | Building , | | | | | | Floor [place], [place] | | | | | | [address] | | | | | | [phone] | | | +--------+ + + + [...] + + + +---------+ + + | George-3 Fatty | Take by mouth. | | [...] excised | | | | | | MIS([id number]). | | | | | | Specimen [...] tanskin, | | | | | | [id number]. The specimen | | | | | [...] excision | | | | | | ([id number]) the changes | | | | | [...] | Mailcomary alice [address] | [place] [address] | | | DERMATOPATHOLOGY | [address] | | | + + + + + documented in this encounter Visit Diagnoses Not on filedocumented in this encounter
--- OUTSIDE RECORDS SUMMARY | ~2019-11-22 | XMS | Encounter Summary ---
Demographics + + + | Address | [address] | | | [place] [address] | + + + | Home Phone [...] Team Providers + +------+ + | Care Hurl Shaker Name | Role | Phone | + +------+ + PCP | Unavailable | + +------+ + Encounter Details +--------+ + + + + | Date | Type | Department | Care Team | Description | +--------+ + + + + | 09/12/ | Hospital | [facility] | | | | 2010 - | Encounter | MED CTR CANCER | | | | | | CENTER [address] | | | | 10/12/ | | [place] | | | | 2010 | | [address] | | | | | | [phone] | | | +--------+ + + + [...] Frank Mueller MD - 09/12/2010 5:52 AM [facility] note Patient name: Cosmo Johnson Date of : Record number: [id number] Date of service: 09/12/10 Primary care provider: Brandon Greco MD Other providers: Dr. Edgar Hampton ([facility]) Identifying statement / chief complaint: [...] three adult children. Two daughters live in [facility]. Son lives in [place]. 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 He has a small 400 [address] ranch [...] resection shows complete pathologic response. He visited [facility] Dr. Hampton, who recommends proceeding with [...] cc: Dr. Grant Greco, Dr. Trent Hampton ([facility]) <Electronically Signed by Debbie Mueller MD PHD> 09/15/10 1642 documented in this encounter Plan of Treatment Not on filedocumented as of this encounter Visit Diagnoses Not on filedocumented in this encounter"
--- OUTSIDE RECORDS SUMMARY | ~2019-11-22 | XMS | Encounter Summary ---
Demographics + + + | Address | [address] | | | [place] [address] | + + + | Home Phone [...] Team Providers + +------+ + | Care District Manager Name | Role | Phone | + +------+ + PCP | Unavailable | + +------+ + Encounter Details +--------+ + + + + | Date | Type | Department | Care Team | Description | +--------+ + + + + | 08/10/ | Hospital | [facility] | | | | 2009 - | Encounter | MED CTR GENERIC IP | | | | | | CONV DEPT [address] | | | | 08/11/ | | [place], | | | | 2009 | | [place] [address] | | | | | | [phone] | | | +--------+ + + + [...]
--- OUTSIDE RECORDS SUMMARY | ~2019-11-22 | XMS | Encounter Summary ---
Demographics + + + | Address | [address] | | | [place] [address] | + + + | Home Phone [...] + + + | Author | [facility] | | | and [place] | + + + | Organization | [facility] | | [...] Team Providers + +------+ + | Care Cooking Show Host Name | Role | Phone | + [...] | | | VALENTINA Correia | [place] [address] | | | | | [address] | [phone] | | | | | [phone] | | | +--------+ + + + [...]
--- OUTSIDE RECORDS SUMMARY | ~2019-11-22 | XMS | Encounter Summary ---
Demographics + + + | Address | [address] | | | [place] [address] | + + + | Home Phone | | + + + | Preferred Language | Unknown | + + + | Marital Status | | + + + | Christian Affiliation | PRE | + + + [...] + | Ricarda Olivera | ECON | [address] | | | | | [place] | | | | | [address] | | + + + + + Care Team Providers + +------+ + | Care Financial Developer Name | Role | Phone | [...] | | | Sander Beltran MD | [facility] [address] | | | | | TRANSESOPHAG | [address] | | | | | EAL | [address] | [address] | | | | | ECHOCARDIOGR | Diana Toledo | Brett | | | | | AM, ADULT | [place], [place] | Building, 2nd | | | | | | [address] | floor | | | | | | | [place], [place] | | | | | | | [address] | | | | | | | Phone: | | | | | | | [phone] | +--------+--------+ + + + + Diagnostic [...] | | | | MD Ginger | [facility] [address] | | | | | TRANSESOPHAG | [address] | | | | | EAL | Avshannon | [address] | | | | | ECHOCARDIOGR | [place], | Brett | | | | | AM, ADULT | [place] | Building, 2nd | | | | | | [address] | floor | | | | | | Phone: | [place], [place] | | | | | | [phone] | [address] | | | | | | Fax: | Phone: | | | | | | [phone] | [phone] | +--------+--------+ + + + + Diagnostic [...] | | | | MD Ginger | [facility] [address] | | | | | TRANSTHORACI | [address] | | | | | C | Ave | [address] | | | | | ECHOCARDIOGR | [place] | [place] | | | | | AM, ADULT | [place] | [facility] | | | | | | [address] | floor | | | | | | Phone: | [place], [place] | | | | | | [phone] | [address] | | | | | | Fax: | Phone: | | | | | | [phone] | [phone] | +--------+--------+ + + + + Diagnostic [...] | | | Ida Sebastian MD | [facility] [address] | | | | | TRANSTHORACI | [address] | | | | | C | Taran Ortiz | [address] | | | | | ECHOCARDIOGR | [address] | [address] | | | | | AM, ADULT | [place], [place] | [facility] | | | | | | [address] | floor | | | | | | | [place], [place] | | | | | | | [address] | | | | | | | Phone: | | | | | | | [phone] | +--------+--------+ + + + + Reason [...] + + | 08/01/ | Hospital | [facility] [address] | Estevan Stringer MD | | | 2011 - | Encounter | [facility] | [address] [facility] | | | | | 5A [facility] Hospital | [address] [place], | | | 08/09/ | | [place], [place] | [place] [address] | | | 2011 | | [address] | [phone] | | | | | [phone] | | | | | | | Edgar Hampton MD | | | | | | [address] [facility] | | | | | | [facility] | | | | | | [place], [place] | | | | | | [address] | | | | | | [phone] | | | | | | | | | | | | Ginger Jain MD | | | | | | Ginger Salazar MD | | | | | | [address] | | | | | | [place], [place] | | | | | | [address] | | | | | | [phone] | | | | | | | | | | | | Sander Chandler MD | | | | | | Daryl Morin, | | | | | | MD [address] [facility] | | | | | | [facility] | | | | | | [place], [place] | | | | | | [address] | | | | | | [phone] | | | | | | | [...] take-down this spring who was transferred from [facility] in [place], [place] with bacteremia. He had presented initially [...] but than also a CT abdomen/pelvis at [facility] which just showed his sacral fracture. He [...] his liver enzymes during his stay at [facility] with AST and ALT which cli mbed [...] time for statin 3. Infectious follow-up with [facility] clinic Discharge exam: Vitals within normal limits [...] Tab by mouth once daily. Call Marly Greoc MD for refills., Disp-30 Tab, R-0, Print [...] in 24 hours., Disp-100 Tab, R-0, OTC eylypdj-wowmfjbsayerc-bwrzblox (EXCEDRIN) 250-250-65 mg Oral Tablet Take 1 [...] Cap by mouth once daily., Historical Med Dundas-3 Fatty Acids-Vitamin E (FISH OIL) 1,000 mg [...] 1. You will need follow-up in the [facility] infectious disease clinic, they will call you to jennifer ramos an appointment however if you haven't heard from them the phone number is [phone] . 2. Follow-up with Marly Greco MD in SaturdayAug 21 at 3:15 (phone number [phone]) 3. Follow-up in October with Dr. Hampton. Other Discharge Orders and Instructions Home health RN for picc management and need weekly lab draw including CBC, CMP, ESR and CRP to be faxed to [facility] OPAT clinic (phone [phone] and fax [phone]) Outstanding labs/studies: final blood culture data, currently with three negative cultures, most recent negative after 72 hours. Discharging Physician: SANDER CHANDLER MD Attending Physician: Sander Chandler MD [facility] DEPARTMENT: Hosp ([facility]) - [phone] Place of Service: [facility] Date of Service: 08/09/2011 [facility] [id number] Modifiers:GC Resident Involved: No Service: PRIMARY HOSPITALIST Suggested CPT: 51352 Discharge Management > 30 minute I spent more than 50 minutes azxp-jk-ymkt with the patient of which greater than [...] + + + +---------+ + + | Dundas-3 Fatty | Take by mouth. | | [...] CHANDLER MD Clinical Hospitalist EPIC DEPARTMENT: Hosp ([facility]) - [phone] Place of Service: - Date of Service: 08/08/2011 [facility] [id number] Modifiers:GC Resident Involved: No Service: PRIMARY HOSPITALIST Suggested CPT: 75891 Subsequent Visit Detailed/High complexity 35 min I spent more than 35 minutes lqnk-ru-hpoo with the patient of which greater than 50% was sp ent counseling the patient regarding infection and plan of care. Maricruz Looney - 07/16 9:55 AM PSTTransesophageal echocardiogram completed today. Final report to follow. Snader Bettencourt MD - 08/07 6:57 AM PST INPATIENT HOSPITALIST PROGRESS NOTE Hospital Day:6 Author; SANDER CHANDLER MD Attending Physician: Ginger Salazar MD Interval Hx: --had CRISTIAN without any valvular findings Subjective: Tylor Olivera states that he had some pain overnight [...] FULL CODE SANDER CHANDLER MD Clinical Hospitalist [facility] DEPARTMENT: Hosp ([facility]) - [phone] Place of Service: [facility] Date of Service: 08/07/2011 [facility] [id number] Modifiers:GC Resident Involved: No Service: PRIMARY HOSPITALIST Suggested CPT: 05156 Subsequent Visit Detailed/High complexity 35 min I spent more than 35 minutes ffqs-ph-nkyy with the patient of which greater than 50% was sp ent counseling the patient regarding infection, hypertension, apenoea symptoms and plan of c are. Ginger Grubbs MD - 7:27 AM PST CLINICAL HOSPITALIST SERVICE ([facility])-PROGRESS NOTE HOSPITAL DAY: 5 Author: GINGER SALAZAR MD 24-HOUR EVENTS & SUBJECTIVE: Pt feels improved. No CP at all, leg pain. No SOB. Still a spot tender on leg hip. Walked yesterday and had Good night sleep Blood cultures still positive from 08/04/11 [facility] Physical Exam: Vitals (Most recent): BP 154/81 [...] Instructor of Medicine Clinical Hospitalist Service Pager: [phone] [facility] DEPARTMENT: Hosp ([facility]) - [phone] Place of Service: - [id number] Date of Service: 08/06/2011 [facility] [id number] Modifiers:GC Resident Involved: No Service: PRIMARY HOSPITALIST Suggested CPT: 52190 Subsequent Visit Detailed/High complexity 35 min I spent more than 40 minutes vyka-rf-bqcf with the patient of which greater than 50% was sp ent counseling the patient. Ginger Grubbs MD - 0 08/05/2011 1:09 PM PST CLINICAL HOSPITALIST SERVICE ([facility])-PROGRESS NOTE HOSPITAL DAY: 4 Author: GINGER [...] Instructor of Medicine Clinical Hospitalist Service Pager: [phone] [facility] DEPARTMENT: Hosp ([facility]) - [phone] Place of Service: - Date of Service: 08/05/2011 [facility] [id number] Modifiers:GC Resident Involved: No Service: PRIMARY HOSPITALIST Suggested CPT: 50311 Subsequent Visit Detailed/High complexity 35 min I spent more than 38 minutes jbtv-gs-mvby with the patient of which greater than 50% was sp ent counseling the patient. inger aSlazar MD - 0 08/04/2011 7:54 AM PST CLINICAL HOSPITALIST SERVICE ([facility])-PROGRESS NOTE HOSPITAL DAY: 3 Author: GINGER [...] Instructor of Medicine Clinical Hospitalist Service Pager: [phone] [facility] DEPARTMENT: Hosp ([facility]) - [phone] Place of Service: - Date of Service: 08/04/2011 [facility] [id number] Modifiers:GC Resident Involved: No Service: PRIMARY HOSPITALIST Suggested CPT: 94481 Subsequent Visit Detailed/High complexity 35 min I spent more than 45 minutes fdwy-em-yidy with the patient of which greater than 50% was sp ent counseling the patient. uhelga, MD Ginger - 0 08/03/2011 9:54 AM PST CLINICAL HOSPITALIST SERVICE ([facility])-PROGRESS NOTE HOSPITAL DAY: 2 Author: GINGER [...] this spring who was tr ansferred from [facility] in [facility], [place] with MSSA bacteremia with unknown sourc [...] Instructor of Medicine Clinical Hospitalist Service Pager: [phone] [facility] DEPARTMENT: Hosp ([facility]) - [phone] Place of Service: - Date of Service: 08/03/2011 [facility] [id number] Modifiers:GC Resident Involved: No Service: PRIMARY HOSPITALIST Suggested CPT: 38742- Prolonged E+ M- Before and/or after direct (thcu-lm-azkq) patient c are( eg, review of extensive records & tests, communication with other professionals and/or the patient/family); first hour I spent more than 75 minutes cgal-xo-vbqz with the patient of which greater than [...] Value Range Status 08/01/2011 Final Value: STUDY: CO CHEST 1 VIEW 08/01/11 18:30:00 COMPARISON: Outside [...] mg, 25 mg, Oral, HS PRN Assessment/Plan:Tylor Olievra is a 66 y.o. male with a history of hyperlipidemia, HT N by chart review, and rectal cancer s/p chemo - completed adjuvant therapy 01/2011, XRT las t in 05/2010, and ileostomy formation 07/2010 with planned take-down this spring who was tra nsferred from [facility] in [facility], [place] with bacteremia. # Chest pain: he has been having chest pain prior to admission and has thus far ruled out f or IL. The history is also not suggestive of CAD. His radial pulses are equal, doubt an aneu rysm. He could have ASCVD with CAD or aneurysm, VTE, esophageal spasm or musculoskeletal ivviane ns either from metastatic disease or ? [...] Code Status: Full code GINGER JAIN MD [address] Cloud Operations Engineerclinical provider trainer Clinical Hospitalist Service [facility] EPIC DEPARTMENT: Hosp ([facility]) - [id number] Place of Service: - Date of Service: 08/03/2011 [facility] [id number] Modifiers:GC Resident Involved: No Service: PRIMARY HOSPITALIST Suggested CPT: 50095 Subsequent Visit Exp Prob Foc/Mod Complexity 25 min I spent more than 30 minutes hdzy-ro-aaco with the patient of which greater than 50% was s pent co-ordinating care Ginger García MD - 08/02/2011 8:44 PM PST CLINICAL HOSPITALIST SERVICE ([facility])- ACCEPT/PROGRESS NOTE HOSPITAL DAY: 1 Author: GINGER JAIN MD Subjective: Very sleepy.Eating and drinking well. No back ache at this time, feeling much b karina. Reports pains in the left hip Interval History: Tylor Olivera is a 66 y.o. Male with rectal carcinoma who was transferred from [facility] in [facility], [place] with bacteremia. 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 # Bacteremia: no infectious [...] Code Status: Full code GINGER JAIN MD [facility] 12KI Cloud Operations Engineerclinical provider trainer Clinical Hospitalist Service [facility] EPIC DEPARTMENT: Hosp ([facility]) - [phone] Place of Service: Date of Service: 08/02/2011 CSN [id number] Modifiers:GC Resident Involved: No Service: PRIMARY HOSPITALIST Suggested CPT: 19364 Prolonged Service Rywf-zb-Mukn 1st Hour (30-74 min beyond initial/sub) I spent more than 35 minutes nnbc-va-fyhl with the patient of which greater than [...] anemia. Transfer to floor. ESTEVAN STRINGER MD [facility] 12KI [address] [id number] [facility] [address] I spent 35 min in care (not including procedures) [facility] DEPARTMENT: MICU, [facility]- [id number] Place of Service: Date of Service: 08/02/2011 CSN: [id number] Modifiers:GC Resident Involved: yes Suggested CPT: 61994 Subsequent Visit Detailed/High complexity 35 min Current [...] take-down this spring who was transferred from [facility] in [facility], [place] with MSSA bacteremia. H&P from evening is [...] control and continued fevers --> transfer to [facility] Upon arriving, pt is alert, oriented and [...] per their read 08/01/11 - CXR STUDY: CO CHEST 1 VIEW 08/01/11 18:30:00 COMPARISON: Outside [...] this spring who wa s transferred from [facility] in [facility], [place] with bacteremia. Neuro #Chronic headaches: Has [...] assessment and plan. IDA SAUER MD Pager [phone] Kojo Pete - 08/01/19 12 6:46 PM [...] | [facility] | [address] | [place] [address] | | | PATHOLOGY | [address] [...] [facility] | [address] | [place] [address] | | | PATHOLOGY | [address] [...] + + + + + | [facility] DEPARTMENT OF | [address] | [place] [address] | | | PATHOLOGY | [address] [...] for test. PHONED TO TYLOR BOB @ 0986 | [facility] | | | DEPARTMENT OF | | | PATHOLOGY | + + + + + + + + | Performing | Address | City/State/Zipcode | Phone Number | | Organization | | | | + + + + + | [facility] DEPARTMENT OF | [address] | [place] [address] | | | PATHOLOGY | [address] [...] QNS | 60 - 99 mg/dL | [facility] | | | PLASMA | | | [...] DEPARTMENT OF | [address] | [place] [address] | | | PATHOLOGY | [address] [...] | [facility] | [address] | [place] [address] | | | PATHOLOGY | [address] [...] | + + + + + | [facility] | [address] | [place] [address] | | | LAB-MICRO | | | [...] LABORATORY | | | | at [facility], | | | | | | [place], [place]. | | | | + + + + + + + + | Specimen | + + | | + + + + + | Narrative | Performed At | + + + | [facility] | [facility] | | [place] [address] | REGIONAL | | [place] [address] | LABORATORY | + + + + + + + + | Performing | Address | City/State/Zipcode | Phone Number | | Organization | | | | + + + + + | [facility] | [address] | [place] [address] | | | LABORATORY | | | [...] | [facility] | [address] | [place] [address] | | | PATHOLOGY | [address] [...] | [facility] | [address] | [place] [address] | | | PATHOLOGY | [address] [...] | [facility] | [address] | [place] [address] | | | PATHOLOGY | [address] [...] | + + + + + | [facility] | [address] | [place] [address] | | | LAB-MICRO | | | | + + + + + IP CONSULT TO INFECTIOUS DISEASES (08/06/2011 10:10 PM PST) + + + | Narrative | Performed At | + + + | Angel Zavala MD 08/06/2011 6:02 PM TYLOR HERNANDEZ | | | [facility] INPATIENT INFECTIOUS DISEASES FOLLOW UP CONSULT [...] Infectious Diseases Fellow | | | Pager: [phone] | | + + + EOSINOPHILS, URINE [...] + + + + + | [facility] DEPARTMENT | [address] | [place] [address] | | | PATHOLOGY | [address] [...] + + + | [facility] | [address] | [place] [address] | | | LABORATORY | | | [...] + + + + + | [facility] DEPARTMENT OF | [address] | [place] [address] | | | PATHOLOGY | [address] [...] [facility] | [address] | [place] [address] | | | PATHOLOGY | [address] [...] + + + + + | [facility] DEPARTMENT OF | [address] | [place] [address] | | | PATHOLOGY | [address] [...] + + + | [facility] | [address] | [place] [address] | | | LAB-MICRO | | | [...] | + +---------+ + + | [facility] DEPARTMENT OF | | | | | [...] DEPARTMENT OF | [address] | [place] [address] | | | PATHOLOGY | [address] [...] + + + + + | [facility] DEPARTMENT OF | [address] | [place] [address] | | | PATHOLOGY | [address] [...] DEPARTMENT OF | [address] | [place] [address] | | | PATHOLOGY | [address] [...] | | | Catie et al: ANGEL [phone] (1998) | | | AGE-ADJUSTED TOTAL PSA [...] [facility]) | | | [facility] [place] [address] | | | [place] [address] | | + + + + + + + + | Performing | Address | City/State/Zipcode | Phone Number | | Organization | | | | + + + + + | [facility] | [address] | [place] [address] | | | LABORATORY | | | [...] + + + | [facility] | [address] | [place] [address] | | | LAB-MICRO | | | [...] [facility] | REGIONAL | | [place] [address] | LABORATORY | | [place] [address] | | + + + + + + + + | Performing | Address | City/State/Zipcode | Phone Number | | Organization | | | | + + + + + | [facility] | [address] | [place] [address] | | | LABORATORY | | | [...] | [facility] | [facility] | | [facility] [place] [place] [address] | LABORATORY | | [place] [address] | | + + + + + + + + | Performing | Address | City/State/Zipcode | Phone Number | | Organization | | | | + + + + + | [facility] | [address] | [place] [address] | | | LABORATORY | | | [...] Way Lab) [facility] | REGIONAL | | [facility] [address] [facility] [address] | LABORATORY | | [place] [address] | | + + + + + + + + | Performing | Address | City/State/Zipcode | Phone Number | | Organization | | | | + + + + + | [facility] | [address] | [place] [address] | | | LABORATORY | | | [...] + + + + + | [facility] DEPARTMENT OF | [address] | [place] [address] | | | PATHOLOGY | [address] [...] + + + + + | [facility] DEPARTMENT OF | [address] | [place] [address] | | | PATHOLOGY | [address] [...] + + + + + | [facility] DEPARTMENT OF | [address] | [place] [address] | | | PATHOLOGY | [address] [...] [facility] | [address] | [place] [address] | | | PATHOLOGY | [address] [...] RESULTS PHD TO EBONIE @0308. RB | [facility] | | | REGIONAL | | | LAB-MICRO | + + + + + + + + | Performing | Address | City/State/Zipcode | Phone Number | | Organization | | | | + + + + + | [facility] | [address] | [place] [address] | | | LAB-MICRO | | | [...] + + + + + | [facility] DEPARTMENT OF | [address] | [place] [address] | | | PATHOLOGY | [address] [...] + + + + + | [facility] DEPARTMENT OF | [address] | [place] [address] | | | PATHOLOGY | [address] [...] 301 | 150 - 400 K/cu | [facility] | | | COUNT | | mm [...] + + + + + | [facility] DEPARTMENT OF | [address] | [place] [address] | | | PATHOLOGY | [address] [...] [facility] | [address] | [place] [address] | | | PATHOLOGY | [address] [...] + + + + + | [facility] DEPARTMENT OF | [address] | [place] [address] | | | PATHOLOGY | [address] [...] [facility] | [address] | [place] [address] | | | PATHOLOGY | [address] [...] DEPARTMENT OF | [address] | [place] [address] | | | PATHOLOGY | [address] [...] OF | [address] | [place] [address] | | | PATHOLOGY | [address] [...] [facility] | [address] | [place] [address] | | | PATHOLOGY | [address] [...] | [facility] | | [place] [address] | REGIONAL | | [place] [address] | LABORATORY | + + + + + + + + | Performing | Address | City/State/Zipcode | Phone Number | | Organization | | | | + + + + + | [facility] | [address] | [place] [address] | | | LABORATORY | | | [...] | | | | | PORTABLE | [phone] Name: | | | | | VENOUS [...] # | | | | | | [id number] RESULT:LOWER | | | | | | [...] | + +---------+ + + | [facility] DEPARTMENT OF | | | | | [...] + + + + + | [facility] DEPARTMENT | [address] | [place] [address] | | | PATHOLOGY | [address] [...] view image for the detailed interpretation from [employer] results. | CARDIOLOGY | + + + + + + + + | Performing | Address | City/State/Zipcode | Phone Number | | Organization | | | | + + + + + | [facility] | [address] | [place], [place] | | | CARDIOLOGY | [address] | [address] | | + + + + + [...] + + + + + | [facility] DEPARTMENT OF | [address] | [place] [address] | | | PATHOLOGY | [address] [...] [facility] | [address] | [place] [address] | | | PATHOLOGY | [address] | | | + + + + + MAGNESIUM, PLASMA (08/03/2011 12:05 AM PST) + +-------+ + + + | Component | Value | Ref Range | Performed | Pathologist | | | | | At | Signature | + +-------+ + + + | MAGNESIUM,P | 2.2 | 1.8 - 2.5 mg/dL | [facility] | | | LASMA | | | [...] + + + + + | [facility] DEPARTMENT OF | [address] | [place] [address] | | | PATHOLOGY | [address] [...] DEPARTMENT OF | [address] | [place] [address] | | | PATHOLOGY | [address] [...] DEPARTMENT OF | [address] | [place] [address] | | | PATHOLOGY | [address] [...] + + + | [facility] | [address] | [place] [address] | | | LABORATORY | | | [...] + + + | [facility] | [address] | [place] [address] | | | LABORATORY | | | [...] + + + | [facility] | [address] | [place] [address] | | | LABORATORY | | | [...] + + + | [facility] | [address] | [place] [address] | | | LABORATORY | | | [...] + + + | [facility] | [address] | [place] [address] | | | LAB-MICRO | | | [...] + + + | [facility] | [address] | [place] [address] | | | LAB-MICRO | | | [...] + + + + + | [facility] DEPARTMENT OF | [address] | [place] [address] | | | PATHOLOGY | [address] [...] | + + + + + | [facility] | [address] | [place] [address] | | | LAB-MICRO | | | [...] [facility] [facility] | [address] | [place] [address] | | | PATHOLOGY | [address] [...] DEPARTMENT OF | [address] | [place] [address] | | | PATHOLOGY | [address] [...] DEPARTMENT OF | [address] | [place], [place] [address] | | | PATHOLOGY | [address] [...] + + + + + | [facility] DEPARTMENT OF | [address] | [place] [address] | | | PATHOLOGY | [address] [...] DEPARTMENT OF | [address] | [place] [address] | | | PATHOLOGY | [address] [...] DEPARTMENT OF | [address] | [place] [address] | | | PATHOLOGY | [address] [...] DEPARTMENT OF | [address] | [place] [address] | | | PATHOLOGY | [address] [...] | | CARDIOLOGY | | | | FRANICSCO MCCALLUM | | | | | | [...] view image for the detailed interpretation from Veebeam results. | CARDIOLOGY | + + + + + + + + | Performing | Address | City/State/Zipcode | Phone Number | | Organization | | | | + + + + + | [facility] DEPT OF | [address] | [place], [place] | | | CARDIOLOGY | [address] | [address] | | + + + + + [...] by | | | | | | [place]ward [place], | | | | | | | | | | | | [address] | | | | | | [facility] | | | | | | [address] | | | | | | | | | | | | [email or web address], | | | | | | Rebeca [...] [facility] | [address] | [place], [place] | | | [facility] | | [address] | | + + + + + [...] + + + + + | [facility] DEPARTMENT OF | [address] | [place] [address] | | | PATHOLOGY | [address] [...] | | | Catie et al: ANGEL [id number] (1998) | | | AGE-ADJUSTED TOTAL PSA [...] RLB ([facility]) | | | [facility] [place] [address] | | | [place] [address] | | + + + + + + + + | Performing | Address | City/State/Zipcode | Phone Number | | Organization | | | | + + + + + | [facility] | [address] | [place] [address] | | | LABORATORY | | | | + + + + + X-RAY PORTABLE CHEST 1 VIEW (08/01/2011 6:30 PM PST) + + + + + + | Component | Value | Ref Range | Performed | Pathologist | | | | | At | Signature | + + + + + + | X-RAY | STUDY: CO CHEST 1 VIEW | | | | [...] [facility] | [address] | [place] [address] | | | PATHOLOGY | [address] [...] DEPARTMENT OF | [address] | [place] [address] | | | PATHOLOGY | [address] [...] DEPARTMENT OF | [address] | [place] [address] | | | PATHOLOGY | [address] [...] + + + + + | [facility] DEPARTMENT OF | [address] | [place] [address] | | | PATHOLOGY | [address] [...] | [facility] | [address] | [place] [address] | | | PATHOLOGY | [address] [...] DEPARTMENT OF | [address] | [place] [address] | | | PATHOLOGY | [address] [...] + + + + + | [facility] DEPARTMENT OF | [address] | [place] [address] | | | PATHOLOGY | [address] | | | + + + + + INR (08/01/2011 4:38 PM PST) + + + + + + | Component | Value | Ref Range | Performed | Pathologist | | | | | At | Signature | + + + + + + | INR | 1.07Comment: | 0.90 - 1.20 INR | [facility] | | | | INR Therapeutic ranges [...] | [facility] | [address] | [place] [address] | | | PATHOLOGY | [address] [...] | + + + + + | [facility] | [address] | [place] [address] | | | LAB-MICRO | | | [...] 163 | 150 - 400 K/cu | [facility] | | | COUNT | | mm [...] + + + + + | [facility] DEPARTMENT OF | [address] | [place] [address] | | | PATHOLOGY | [address] [...] DEPARTMENT OF | [address] | [place] [address] | | | PATHOLOGY | [address] [...] DEPARTMENT OF | [address] | [place] [address] | | | PATHOLOGY | [address] [...] MCCALLUM | | | | | | (0681) on 08/03/2011 | | | | | | 4:06:56 PM | | | | + + + + + + + + | Specimen | + + | | + + + + + | Narrative | Performed At | + + + | Please click | [facility] DEPT OF | | on view image for the detailed interpretation from Veebeam results. | CARDIOLOGY | + + + + + + + + | Performing | Address | City/State/Zipcode | Phone Number | | Organization | | | | + + + + + | [facility] DEPT OF | [address] | [place], [place] | | | CARDIOLOGY | [address] | [address] | | + + + + + [...] | | | | First dose on [facility] 08/02/11 at | | PM PST [...] | | | oral, ONCE, 1 dose, [facility] 08/02/11 | | AM PST | [...]
--- OUTSIDE RECORDS SUMMARY | ~2019-11-22 | XMS | Encounter Summary ---
Demographics + + + | Address | [address] | | | [place] [address] | + + + | Home Phone [...] + | Ricarda Johnson | ECON | [address] | | | | | [place] | | | | | [address] | | + + + + + Care Team Providers + +------+ + | Care Men'S Golf Coach Name | Role | Phone | + +------+ + | Hay Greco MD | PCP | | + +------+ + Encounter Details +--------+ + + + + | Date | Type | Department | Care Team | Description | +--------+ + + + + | 06/14/ | Abstract | Dig[facility]ive Health | Edgar Hampton, | | | 2010 | | [place] at [facility] [address] | [address] | | | | | Debbie Mcok | [address] | | | | | Mailcode: Center | [place], [place] | | | | | [facility] and | [address] | | | | | [facility], [facility] 2 | [phone] | | | | | [place], [place] | | | | | | [address] | | | | | | [phone] | | | +--------+ + + + [...]
--- OUTSIDE RECORDS SUMMARY | ~2019-11-22 | XMS | Encounter Summary ---
Demographics + + + | Address | [address] | | | [place] [address] | + + + | Home Phone [...] Team Providers + +------+ + | Care Fingernail Sculpturer Name | Role | Phone | + [...] check-in) | | | | [address] | [place] [address] | | | | | [place] | [phone] | | | | | [address] | | | | | | [phone] | | | +--------+ + + + [...]
--- OUTSIDE RECORDS SUMMARY | ~2019-11-22 | XMS | Encounter Summary ---
Demographics + + + | Address | [address] | | | [place] [address] | + + + | Home Phone [...] Team Providers + +------+ + | Care Booth Cleaner Name | Role | Phone | [...] | [facility] | MD [address] | | | | | [address] | [place] [address] | | | | | [place], [place] | [phone] | | | | | [address] | | | | | | [phone] | | | +--------+ + + + [...] | | has created this entry using [employer] Voice Recognition | | | software and PowerFile macros. The entry has been reviewed and [...] MARIE MD has created this entry using PlayhemRecognition | | software and PowerFile macros. The entry has been reviewed andthere may still exist | | sound alike word errors. | | | |Impression: Status post left reverse total shoulder arthroplasty, with | |good radiographic outcome.. | | | | | |BARBARA MARIE MD | |06/11/2018 | | | |BARBARA MARIE MD has created this entry using [employer] Voice | |Recognition software and PowerFile macros. The entry has been reviewed and | |there may still exist sound alike word errors. | | | + + documented in this encounter Visit Diagnoses Not on filedocumented in this encounter"
--- OUTSIDE RECORDS SUMMARY | ~2019-11-22 | XMS | Encounter Summary ---
Demographics + + + | Address | [address] | | | [place] [address] | + + + | Home Phone | | + + + | Preferred Language | Unknown | + + + | Marital Status | | + + + | Congregation Affiliation | 1077 | + + + | Race | Unknown | + + + | Ethnic Group | Unknown | + + + Author + + + | Author | [facility] | | | and [place] | + + + | Organization | [facility] | | [...] Team Providers + +------+ + | Care Ocean Rescue Lieutenant Name | Role | Phone | + [...] | | [address] | [place] [address] | | | | | [place], [place] | [phone] | | | | | [address] | | | | | | [phone] | | | +--------+ + + + [...]
--- OUTSIDE RECORDS SUMMARY | ~2019-11-22 | XMS | Encounter Summary ---
Demographics + + + | Address | [address] | | | [place] [address] | + + + | Home Phone | | + + + | Preferred Language | Unknown | + + + | Marital Status | | + + + | Methodist Affiliation | PRE | + + + [...] + | Ricarda Johnsno | ECON | [address] | | | | | [place] | | | | | [address] | | + + + + + Care Team Providers + +------+ + | Care Electrical Logging Operator Name | Role | Phone | + +------+ + | Hay Greco MD | PCP | | + +------+ + Encounter Details +--------+ + + + + | Date | Type | Department | Care Team | Description | +--------+ + + + + | 07/31/ | Telephone | Digestive Health | Edgar Hampton, | | | 2011 | | [place] at [facility] [address] | [address] | | | | | Debbie Mock | [address] | | | | | Mailcode: Center | [place], [place] | | | | | for Health and | [address] | | | | | [facility], [facility] 2 | [phone] | | | | | [place], [place] | | | | | | [address] | | | | | | [phone] | | | +--------+ + + + [...]
--- OUTSIDE RECORDS SUMMARY | ~2019-11-22 | XMS | Encounter Summary ---
Demographics + + + | Address | [address] | | | [place] [address] | + + + | Home Phone [...] Providers + +------+ + | Care Coal Sampler Name | Role | Phone | + +------+ + PCP | Unavailable | + +------+ + Encounter Details +--------+ + + + + | Date | Type | Department | Care Team | Description | +--------+ + + + + | 08/22/ | Hospital | [facility] | | | | 2010 - | Encounter | [facility] | | | | | | CENTER [address] | | | | 09/07/ | | [place] | | | | 2010 | | [address] | | | | | | [phone] | | | +--------+ + + + [...]
--- OUTSIDE RECORDS SUMMARY | ~2019-11-22 | XMS | Encounter Summary ---
Demographics + + + | Address | [address] | | | [place] [address] | + + + | Home Phone [...] Team Providers + +------+ + | Care Nuclear Physics Teacher Name | Role | Phone | [...] | | | | | disease), | [place], [place] | [place], [place] | | | | | lumbar | [address] | [address] | | | | | Facet | Phone: | Phone: | | | | | arthropathy, | [phone] | [phone] | | | | | lumbar | Fax: | Fax: | | | | | Procedures | [phone] | [phone] | | | | | CT Lumbar [...] | Physical | Diagnoses | Yaya, | Oneli, | | | Services | Medicine and | S/P lumbar | Kirk | Pj Singer MD | | | Required | Rehabilitatio | fusion DDD | JUNI Ibarra | [address] | | | | n | (degenerativ | [address] | [facility] | | | | | e disc | [address] | [place], [place] | | | | | disease), | [place], [place] | [address] Phone: | | | | | lumbar | [address] | [phone] | | | | | Facet | Phone: | Fax: | | | | | arthropathy, | [phone] | [phone] | | | | | lumbar | Fax: | | | | | | | [phone] | | +--------+ + + + + [...] | | | | | lumbar | [address] | | | | | | Facet | Phone: | | | | | | arthropathy, | [phone] | | | | | | lumbar | Fax: | | | | | | Procedures | [phone] | | | | | | HIM [...] | | | | Radiculopath | MD Branodn | [address] | | | | | y, lumbar | [address] | [place] | | | | | region | [place] | [address] | | | | | Procedures | [address] | Phone: | | | | | [place] OFFICE | [place], | [phone] | | | | | CONSULTATION | [place] | Fax: | | | | | NEW/ESTAB | [address] | [phone] | | | | | PATIENT 59 | Phone: | | | | | | MIN | [phone] | | | | | | | Fax: | | | | | | | [phone] | | +--------+--------+ + + + + Encounter Details +--------+---------+ + + + | Date | Type | Department | Care Team | Description | +--------+---------+ + + + | 02/07/ | Office | [facility] | Gucci Javierlas | S/P lumbar fusion | | 2017 | Visit | NEUROSURGERY [address] | [address] | (Primary Dx); DDD | | | | [address] | [address] | (degenerative disc | | | | [place], [place] | [place] [address] | disease), lumbar; | | | | [address] | [phone] | Facet arthropathy, | | | | [phone] | | lumbar | +--------+---------+ + + [...] from the original. Kirk Javier PA-C [address] [facility] [place] [address] FAX: NEUROSURGERY HISTORY AND PHYSICAL EXAMINATION CHIEF [...] Take 1 tablet by mouth Daily. 0 Lmsjxmovw-Hhyotmabixi-Sep D (GLUCOSAMINE COMPLEX PO) Take 2 tablets [...] has no apparent deficits with short or longterm memory. CRANIAL NERVES: II: Acuity is intact. [...] Intrinsics 5 5 Ulnar Intrinsics 5 5 Thermodynamics Professor Strength 5 5 Hip Flexion 5 5 [...]
--- OUTSIDE RECORDS SUMMARY | ~2019-11-22 | XMS | Encounter Summary ---
Demographics + + + | Address | [address] | | | [place] [address] | + + + | Home Phone [...] Providers + +------+ + | Care District Court Administrator Name | Role | Phone | [...] | | [address] | [place] [address] | | | | | [place] | [phone] | | | | | [address] | | | | | | [phone] | | | +--------+ + + + [...]
--- OUTSIDE RECORDS SUMMARY | ~2019-11-22 | XMS | Encounter Summary ---
Demographics + + + | Address | [address] | | | [place] [address] | + + + | Home Phone [...] Team Providers + +------+ + | Care Lobster Catcher Name | Role | Phone | + [...] | | | [address] | [place] [address] | | | | | [place], [place] | [phone] | | | | | [address] | | | | | | [phone] | | | +--------+ + + + [...] Y.. Comparison Exam: 11/13/2017, | | | [facility]. Findings: The patient is status post [...] MARIE MD has created this entry using [employer] | | | Recognition software and [employer] macros. The entry has been | | [...] | | scapular Y.. Comparison Exam: 11/13/2017, [facility]. Findings: The patient is | | [...] has | | created this entry using UniiRecognition software and [employer] | | macros. The entry has been [...] MARIE MD has created this entry using [employer] | |Recognition software and [employer] macros. The entry has been reviewed and | |there may still exist sound alike word errors. | | | + + documented in this encounter Visit Diagnoses Not on filedocumented in this encounter"
--- OUTSIDE RECORDS SUMMARY | ~2019-11-22 | XMS | Encounter Summary ---
Demographics + + + | Address | [address] | | | [place] [address] | + + + | Home Phone [...] + | Ricarda Johnson | ECON | [address] | | | | | [place] | | | | | [address] | | + + + + + Care Team Providers + +------+ + | Care Mineral Technologist Name | Role | Phone | + +------+ + | Hay Greco MD | PCP | | + +------+ + Encounter Details +--------+ + + + + | Date | Type | Department | Care Team | Description | +--------+ + + + + | 10/31/ | Abstract | Digestive Health | Edgar Hampton, | | | 2011 | | [place] at [facility] [address] | [address] | | | | | Debbie Mock | [address] | | | | | Mailcode: Center | [place], [place] | | | | | for Health and | [address] | | | | | [facility], [facility] [address] | [phone] | | | | | [place], [place] | | | | | | [address] | | | | | | [phone] | | | +--------+ + + + [...]
--- OUTSIDE RECORDS SUMMARY | ~2019-11-22 | XMS | Encounter Summary ---
Demographics + + + | Address | [address] | | | [place] [address] | + + + | Home Phone [...] Team Providers + +------+ + | Care Perfect Binder Feeder Offbearer Name | Role | Phone | [...] lumbar (Primary Dx); | | | | [place], [place] | [place] [address] | Spondylolisthesis | | | | [address] | [phone] | of lumbar region; | | | | [phone] | | High cholesterol; | | | [...] [address] | [place] | [phone] | | [facility] | | [address] | | | - LABORATORY | | [...] | 1.30 | 0.70 - 1.30 | [facility] | | | | | mg/dL | [facility] | | | | | | MEDICAL | | | | | | CENTER - | | | | | | LABORATORY | | + + + + + + | eGFR if not | 54 (L)Comment: | >=60 | [facility] | | | NORMA | GLOMERULAR FILTRATION | mL/min/1.73m2 | [facility] | | | [place] | RATE,ESTIMATED | | MEDICAL | | | | mL/min/1.59l1Lkdm than | | CENTER - | | [...] + | [address] | [address] | [place] | [phone] | | [facility] | | [address] | | | - LABORATORY | | [...] | | | | BALJINDER BLUE MD ([id number]) | | | | | | on [...]
[~2019-11-22 14:43] MED LIST changes: +KEFLEX500 MG PO
--- OUTSIDE RECORDS SUMMARY | 2019-11-22 14:46 | XMS ---
PreManage Notification: TYLOR OLIVERA Security Information Technology Security Manager Events No recent Security Events currently on file CRITERIA MET - [facility] - Has Care Guidelines - [facility] - 2 Visits in 30 Days CARE PROVIDERS THEODORE THAYER Physician Film Casting Operator Current PHONE: [phone] HERMELINDA BAH Internal Medicine 09/17/2018-Current PHONE: [phone] Xander has no Care Guidelines for this patient. Care History Medical/Surgical 09/17/2018 [facility] - Patient is currently established with [facility]. If patient is seen in the ED during business hours. Please contact [facility] at [facility]. Care Recommendation: This patient has had 5 or more Emergency Department visits in the last 12 months.\T\nbsp; Patient requires education on the scope and purpose of the ED as an acute care provider not a Primary Care Provider and should not be utilized for chronic conditions.\T\nbsp; These are guidelines and the provider should exercise clinical judgment when providing care. E.D. VISIT COUNT (12 MO.) 1 Gilson Rasmussen 1 AUBREY Wilde TOTAL 2 NOTE: Visits indicate total known visits. ED/UCC VISIT TRACKING (12 MO.) 11/22/2019 14:44 [facility] [place] TYPE: Emergency COMPLAINT: - WRIST PAIN, INJ 11/20/2019 22:03 Gilson [facility] [place] TYPE: Emergency DIAGNOSES: - Cellulitis of unspecified part of limb - Wrist Pain - Arm Pain - Shoulder Pain INPATIENT VISIT TRACKING (12 MO.) No inpatient visits to display in this time frame [id number]
[2019-11-22] MEDS ORDERED: AMOX TR-K CLV1 EAC1 PO (15:06)
== END 2019-11-22 18:56 | disposition short-term general hospital (02) ==
LOC: ED 14:43
DX: M00.9 Pyogenic arthritis, unspecified (principal); E78.00 Pure hypercholesterolemia, unspecified; Z88.3 Allergy status to other anti-infective agents; Z79.899 Other long term (current) drug therapy
CPT/HCPCS: 73130; 80053; 84550; 85025; 96365; 99284-25; A9270; J0295

== ENCOUNTER 2021-08-10 07:00 | Day surgery (SDC) | payer MEDICARE, OTHER ==
[~2021-08-10] VITALS: Ht 175.3 cm; Wt 88.0 kg
[~2021-08-10 07:00] MED LIST changes: +AMOX TR-K CLV1 EAC1 PO
[2021-08-10] MEDS ORDERED: CELEBREX50 MG PO (07:26)
--- NOTE | 2021-08-10 09:04 | NUR ---
08/10/21 0904 Nimisha Carmichael 0855-PATIENT ARRIVED TO PACU ON 2L NC RR EVEN. LAYING LEFT LATERAL. ABDOMEN SOFT. IVF INFUSING. PATIENT REACTIVE TO VERBAL STIMULI OPENING EYES. 0904-PATIENT SLEEPING 2L NC RR EVEN.
--- NOTE | 2021-08-10 10:07 | NUR ---
WAITING X 2 HR AFTER REVERSAL. AT BEDSIDE.
--- NOTE | 2021-08-10 10:17 | OR ---
[facility] [address] [place], [place] [address] Signed DATE OF OPERATION: 08/10/2021 SURGEON: Eloy Ovalle MD PREOPERATIVE DIAGNOSES: 1. Rectal cancer at 9 cm in 2009. 2. Low anterior resection was in July 2010. 3. Brother had colonic polyps. 4. Son had colonic polyps. 5. Two diverticula in the left colon. 6. Chronic intermittent constipation and diarrhea. 7. Small hiatal hernia. 8. Mild gastroduodenitis. 9. Aplastic anemia associated with his chemotherapy and chronic renal insufficiency. 10. Increase in melena with increase in iron tablets to b.i.d. POSTOPERATIVE DIAGNOSES: 1. Duodenal/pyloric bulb ulcers. 2. Mild to moderate gastroduodenitis. 3. Small hiatal hernia. 4. Minimal right-sided and left-sided diverticulosis. 5. Colorectal anastomosis at 5-7 cm. PROCEDURES: 1. EGD with CLOtest and biopsies of the pyloric bulb and antrum. 2. Colonoscopy without biopsy. ESTIMATED BLOOD LOSS: None. INDICATIONS: Merritt is a 76-year-old gentleman I have known for many years. I did his initial colonoscopy back in March 2010 for intermittent rectal bleeding. At that time, he had no prior colonoscopies. He had a rectal cancer at 9 cm. In addition, we know his brother and his son who had colonic polyps. Tylor underwent his low anterior resection in July 2010. He then had the reversal of his ileostomy in October of 2010. The surgical pathology showed no residual cancer, but high-grade dysplasia. He has always done well with Versed and fentanyl. He had a repeat colonoscopy in 2012 and 2013, which showed two small diverticula in the descending colon. He had a repeat colonoscopy in 2016 again with Versed and fentanyl and again just the two diverticula. He has had both Electronically Signed By: ELOY OVALLE MD 08/10/21 1017 PATIENT NAME: TYLOR OLIVERA OPERATIVE REPORT DATE OF : 43 REPORT #: [id number] PHYSICIAN: ELOY OVALLE MD PCP: HERMELINDA BAH DO REPORT IS CONFIDENTIAL AND NOT TO BE RELEASED WITHOUT AUTHORIZATION [facility] [address] [place], [place] [address] Signed knees and both shoulders replaced and had lots of antibiotics, ended up with Clostridium difficile colitis. He continues to have chronic intermittent constipation and diarrhea. He actually went to see a collar fuser, Dr. Hector Blanco in [place], [place]. He underwent both upper and lower endoscopy in June 2020. He had a small hiatal hernia with mild gastroduodenitis. Helicobacter pylori was negative. His colonoscopy was unremarkable including the terminal ileum and his anastomosis. He continues with aplastic anemia associated with his chemotherapy and his chronic renal insufficiency. He does take iron on a regular basis. Normally, it is once a day. He knows iron can turn his stool black. He doubled the dose and he noticed increase in the melena. For reasons that are not clear, he associated it with his duloxetine and therefore discontinued the duloxetine. He is quite convinced that the stool is now mostly brown. He also uses a little Tylenol for chronic pain issues. He also takes Celebrex as well. He does not take any specific medication for his stomach to include an H2 michele or proton-pump inhibitor. He had been asked to see me for followup upper and lower endoscopy for concerns of a GI bleed. Overall, he said he is feeling better. In the office, I gave Tylor pamphlets on both upper and lower endoscopy. Of course, he is very familiar with those tests. There is risk including, but not limited to gas bloating, crampy abdominal pain, bleeding, perforation requiring surgery, and missed diagnosis. He also understands the need for IV conscious sedation. He always seems to do well with Versed and fentanyl. He had expressed understanding and wished to proceed. PROCEDURE NOTE: Tylor was taken into our endoscopy suite and placed in the supine semi-recumbent position. He was given a total of 5 mg of Versed and 125 mcg of fentanyl to cover both upper and lower endoscopy. The posterior oropharynx was anesthetized with lidocaine spray. A bite block was utilized for the case. The adult gastroscope was introduced and advanced out into the third portion of the duodenum under direct visualization of camera without difficulty. The duodenum was fine, but as we came into the pyloric bulb, he had one ulcer and several smaller ones covered in fibrinous material. Of course, these were not bleeding. He had inflammatory changes in the pyloric bulb as well as throughout his entire stomach. He does have hemorrhagic punctate gastroduodenitis. Upon retroflexion of the scope, he also has a small hiatal hernia. The scope was withdrawn up through the area of the GE junction, which was compliant without stricture. There were no gastric or esophageal varices. He has minimal disruption to the Z-line. There was no Mensah's mucosa. No distal esophagitis. The middle and upper esophagus were unremarkable. After this, the gas was suctioned out and the gastroscope removed. Tylor tolerated the upper endoscopy quite well. Tylor was then rotated into the left lateral decubitus position. He was maintained on IV sedation with Versed and fentanyl. A digital rectal exam was performed and he actually has excellent perianal hygiene. We can feel the anastomosis once again at around 5-7 cm. He does not feel strictured. There were no masses. Of course, he has Electronically Signed By: ELOY OVALLE MD 08/10/21 1017 PATIENT NAME: TYLOR OLIVERA OPERATIVE REPORT DATE OF : 43 REPORT #: [id number] PHYSICIAN: ELOY OVALLE MD PCP: HERMELINDA BAH DO REPORT IS CONFIDENTIAL AND NOT TO BE RELEASED WITHOUT AUTHORIZATION [facility] [address] [place], [place] [address] Signed woody induration from his radiation. After this, the adult colonoscope was inserted and advanced quite readily up into the cecum itself. His prep was good. We could easily see the appendiceal orifice and the ileocecal valve. The scope was then slowly withdrawn. He had a few diverticula in the proximal right colon, in the distal right colon and in his descending colon. They were quite small and few in number, and scattered about. There were no polyps noted throughout the entire colon. We could easily see the anastomosis. Just a tiny bit irritation on the edge of the anastomosis, but it is quite unremarkable. No evidence of any recurrent cancer. What remains of the anal canal is quite healthy. There was not enough room to retroflex the scope. After this, the gas had been suctioned out and the colonoscope removed. Merritt tolerated the lower endoscopy quite well. RECOMMENDATIONS: I will see Merritt back in my office in 7 to 14 days to review his results. He needs to hold the Celebrex at least one week. He really needs to consider H2 michele or proton-pump inhibitor through his primary care provider to protect his stomach. Eloy Ovalle MD ALB/MODL /[id number] cc: MD Edgar Sher MD Arian Kargar, DO Robert C Quackenbush, MD Copies: ELOY OVALLE MD, DANIEL MD KARGAR, ARIAN DO Electronically Signed By: ELOY OVALLE MD 08/10/21 1017 PATIENT NAME: TYLOR OLIVERA OPERATIVE REPORT DATE OF : 43 REPORT #: [id number] PHYSICIAN: ELOY OVALLE MD PCP: HERMELINDA BAH DO REPORT IS CONFIDENTIAL AND NOT TO BE RELEASED WITHOUT AUTHORIZATION [facility] [address] [place] [id number] Signed JOSE ALEJANDRO TAO MD Electronically Signed By: ELOY OVALLE MD 08/10/21 1017 PATIENT NAME: TYLOR OLIVERA OPERATIVE REPORT DATE OF : 43 REPORT #: [id number] PHYSICIAN: ELOY OVALLE MD PCP: HERMELINDA BAH DO REPORT IS CONFIDENTIAL AND NOT TO BE RELEASED WITHOUT AUTHORIZATION
--- NOTE | 2021-08-10 10:43 | NUR ---
PT ALERT, ORIENTED AND SUPPORTED BY HIS . PT HAS HAD BOTH SCOPES SEVERAL TIMES BEFORE. SEEMS RELAXED, ALL QUESTIONS ASKED ANSWERED.HIS WILL STAY FOR DC. GAVE BLESSING, WILL FOLLOW
--- NOTE | 2021-08-10 10:59 | NUR ---
UP TO BR. REQUESTS LUNCH. DENIES ANY DIZZINESS.
--- NOTE | 2021-08-10 11:48 | NUR ---
1145 HAS EATEN SOUP AND SANDWICH. HERE TO TAKE HOME.
== END 2021-08-10 11:45 | disposition home or self-care (01) ==
LOC: DS 07:00 → OPS 07:00 → DS 08:15 → OPS 11:45
PROVIDERS: ATTEND Colon & Rectal Surgery
PROC: 0DB68ZZ Excision of Stomach, Via Natural or Artificial Opening Endoscopic (ICD-10-PCS; principal; 2021-08-10 08:15)
PROC: 0DJD8ZZ Inspection of Lower Intestinal Tract, Via Natural or Artificial Opening Endoscopic (ICD-10-PCS; 2021-08-10 08:15)
DX: K59.09 Other constipation (principal); K52.9 Noninfective gastroenteritis and colitis, unspecified; K57.30 Diverticulosis of large intestine without perforation or abscess without bleeding; K44.9 Diaphragmatic hernia without obstruction or gangrene; K29.91 Gastroduodenitis, unspecified, with bleeding; K25.9 Gastric ulcer, unspecified as acute or chronic, without hemorrhage or perforation; D61.1 Drug-induced aplastic anemia; T45.1X5A Adverse effect of antineoplastic and immunosuppressive drugs, initial encounter; I12.9 Hypertensive chronic kidney disease with stage 1 through stage 4 chronic kidney disease, or unspecified chronic kidney disease; N18.30 Chronic kidney disease, stage 3 unspecified; Z83.71 Family history of colonic polyps; Z85.048 Personal history of other malignant neoplasm of rectum, rectosigmoid junction, and anus; Z96.653 Presence of artificial knee joint, bilateral; Z96.612 Presence of left artificial shoulder joint; Z96.611 Presence of right artificial shoulder joint; Z98.0 Intestinal bypass and anastomosis status; Z98.1 Arthrodesis status; Z88.8 Allergy status to other drugs, medicaments and biological substances
CPT/HCPCS: 87077; 99153; G0500; J0690; J2250; J3010; J7121